=== PATIENT | male | born 1940 | race Caucasian/White ===

== ENCOUNTER → 2018-03-31 | Outpatient (CLI) | payer MEDICARE, BC ==
--- NOTE | 2018-04-01 08:12 | US ---
EXAMINATION TYPE: US kidneys/renal and bladder DATE OF EXAM: 03/31/2018 COMPARISON: CT & US CLINICAL HISTORY: R39.14 incomplete bladder emptying. Pt states recurrent UTI's, and unable to empty bladder completely EXAM MEASUREMENTS: Right Kidney: 12.2 x 6.8 x 6.3 cm Left Kidney: 11.6 x 6.0 x 3.6 cm Right Kidney: Moderate to severe hydro Left Kidney: Severe hydro, minimal renal tissue visualized Bladder: wnl Bilateral Jets seen: Yes No definite calcifications identified. IMPRESSION: Bilateral significant hydronephrosis.
== END | disposition home or self-care (01) ==
LOC: RADUSWWP 15:29
PROVIDERS: ATTEND Urology
DX: N13.30 Unspecified hydronephrosis (principal)
CPT/HCPCS: 76770

== ENCOUNTER → 2018-11-10 | Outpatient (CLI) | payer MEDICARE, BC ==
[2018-11-10 17:17] LABS: Anion Gap 6.8 mmol/L (4.00-12.00); Carbon Dioxide 25.2 mmol/L (21.6-31.8); Phosphorus 3.4 mg/dL (2.4-5.1); Potassium 5.4 mmol/L (3.5-5.5)
[2018-11-10 18:08] LABS: Parathyroid Hormone Intact 71.4 pg/mL (14.0-72.0)
== END ==
LOC: LABWHC1 10:27
PROVIDERS: ATTEND Internal Medicine
DX: N18.9 Chronic kidney disease, unspecified (principal)
CPT/HCPCS: 36415; 80051; 82306; 82565; 83970; 84100; 84520

== ENCOUNTER 2019-03-22 21:32 | Inpatient (IN) | payer MEDICARE, BC ==
[2019-03-22 23:03] LABS: Anisocytosis Slight; Basophils % (A) 0 %; Eosinophils # (A) 0.1 k/uL (0-0.7); Eosinophils % (A) 1 %; HCT 43.4 % (39.0-53.0); HGB 14.3 gm/dL (13.0-17.5); Lymphocytes # (A) 1.2 k/uL (1.0-4.8); Lymphocytes % (A) 11 %; MCH 29.1 pg (25.0-35.0); MCV 88.1 fL (80.0-100.0); Mean Platelet Volume 7.4; Monocytes # (A) 0.7 k/uL (0-1.0); Monocytes % (A) 6 %; Neutrophils # (A) 8.3 k/uL (1.3-7.7); Neutrophils % (A) 80 %; Platelet Count 304 k/uL (150-450); RBC 4.93 m/uL (4.30-5.90); RDW 16.3 % (11.5-15.5); WBC 10.4 k/uL (3.8-10.6)
[2019-03-22 23:12] LABS: Albumin 4.1 g/dL (3.5-5.0); Calcium 8.9 mg/dL (8.4-10.2); Potassium 4.7 mmol/L (3.5-5.1); Total Bilirubin 0.5 mg/dL (0.2-1.3)
[2019-03-23 01:33] LABS: Appearance,Urine Turbid (Clear); Bilirubin,Urine Negative (Negative); Blood,Urine Large (Negative); Color,Urine Yellow; Glucose,Urine (UA) Negative (Negative); Ketones,Urine Negative (Negative); Leukocyte Esterase,Urine Large (Negative); Nitrite,Urine Negative (Negative); Protein,Urine 2+ (Negative); RBC,Urine >182 /hpf (0-5); Specific Gravity,Urine 1.018 (1.001-1.035); Squamous Epithelial Cell,Urine 20 /hpf (0-4); Urobilinogen,Urine <2.0 mg/dL (<2.0); WBC,Urine >182 /hpf (0-5)
--- NOTE | 2019-03-23 01:40 | CT ---
EXAM: CT Abdomen and Pelvis Without Intravenous Contrast CLINICAL HISTORY: ITS.REASON CT Reason: Pain TECHNIQUE: Axial computed tomography images of the abdomen and pelvis without intravenous contrast. CTDI is 24 mGy and DLP is 1356 mGy-cm. This CT exam was performed using one or more of the following dose reduction techniques: automated exposure control, adjustment of the mA and/or kV according to patient size, and/or use of iterative reconstruction technique. COMPARISON: 03/16/15 CT abdomen FINDINGS: Lung bases: No mass. No consolidation. Mild pericardial effusion. ABDOMEN: Liver: Unremarkable. Cysts. Gallbladder and bile ducts: Removed. Pancreas: No ductal dilation. Spleen: Unremarkable. Adrenals: Unremarkable. Kidneys and ureters: No obstructing stones. Mildly dilated bilateral ureters. Calcified right renal cyst. Atrophic bilaterally. Stomach and bowel: No bowel obstruction. No bowel wall thickening. Colonic diverticulosis. PELVIS: Appendix: No appendicitis. Bladder: No stones. Moderate wall thickening. Reproductive: Unremarkable. ABDOMEN and PELVIS: Intraperitoneal space: Unremarkable. Bones/joints: No acute fractures. Soft tissues: Unremarkable. Vasculature: No abdominal aortic aneurysm. Lymph nodes: No enlarged lymph nodes. IMPRESSION: 1. Mild pericardial effusion. 2. Moderately thickened bladder wall, correlate with cystitis. Mildly dilated bilateral ureters. No stones identified. Correlate with ascending infectious/inflammatory process. 3. Colonic diverticulosis.
[2019-03-23] MEDS ORDERED: cefTRIAXone IN SWFI 1,000 MG/10 ML SYRINGE IVP STA (01:47)
[2019-03-23] MEDS ORDERED: NALOXONE 0.4 MG/ML 1 ML VIAL IV PRN (01:57)
--- NOTE | 2019-03-23 02:22 | ED ---
General Adult HPI - General Chief complaint: Abdominal Pain Stated complaint: Flank pain Time Seen by Provider: 03/23/19 00:38 Source: patient, RN notes reviewed, old records reviewed Mode of arrival: wheelchair Limitations: no limitations - History of Present Illness Initial comments: 78-year-old male patient passed no history of chronic kidney disease, h ypertension and hyperlipidemia presents to ED with 3 days of flank pain. Patient denies any dysuria. Patient denies any other complaints at this time. Systemic: Pt denies fatigue, fever/chills, rash. Pt denies weakness, night sweats, weight loss. Neuro: Pt denies headache, visual disturbances, syncope or pre-syncope. HEENT: Pt denies ocular discharge or irritation, otalgia, rhinorrhea, pharyn gitis or notable lymphadenopathy. Cardiopulmonary: Pt denies chest pain, SOB, heart palpitations, dyspnea on exertion. Abdominal/GI: Pt denies abdominal pain, n/v/d. : Pt denies dysuria, burning w/ urination, frequency/urgency. Denies new onset urinary or bowel incontinence. MSK: Pt denies myalgia, loss of strength or function in extremities. Neuro: Pt denies new onset weakness, paresthesias. - Related Data Home Medications Medication Instructions Recorded Confirmed Simvastatin [Zocor] 20 mg PO HS 08/02/14 09/17/14 Warfarin [Coumadin] 5 mg PO W/SUPPER 08/02/14 09/15/14 Atenolol [Tenormin] 50 mg PO BID 08/03/14 09/17/14 Vitamin E (Dl,Tocopheryl Acet) 400 unit PO DAILY 08/03/14 09/17/14 [Vitamin E] Zinc 50 mg PO DAILY 08/03/14 09/17/14 Fluticasone Propionate [Flonase] 1 - 2 spray EA NOSTRIL DAILY 09/15/14 09/17/14 Tamsulosin [Flomax] 0.4 mg PO 1800 09/15/14 09/17/14 Acetaminophen [Tylenol] 650 mg PO Q4H 09/17/14 09/17/14 amLODIPine [Norvasc] 5 mg PO DAILY 09/17/14 09/17/14 Allergies Allergy/AdvReac Type Severity Reaction Status Date / Time No Known Allergies Allergy Verified 03/22/19 22:31 Review of Systems ROS Statement: Those systems with pertinent positive or pertinent negative responses have been documented in the HPI. ROS Other: All systems not noted in ROS Statement are negative. Past Medical History Past Medical History: CVA/TIA, GERD/Reflux, Hyperlipidemia Additional Past Medical History / Comment(s): tia-2004, See Dr Aguirre H&P, arthritis, uses walker or cane, enlarged prostate History of Any Multi-Drug Resistant Organisms: None Reported Past Surgical History: Cholecystectomy, Hernia Repair, Orthopedic Surgery, Pacemaker Additional Past Surgical History / Comment(s): cervical fusion, lithrotripsy, Past Anesthesia/Blood Transfusion Reactions: No Reported Reaction Additional Past Anesthesia/Blood Transfusion Reaction / Comment(s): Pt has never recieved blood. Type of Cardiac Device: Permanent Pacemaker Device Placement Date:: 2008 Past Psychological History: No Psychological Hx Reported Smoking Status: Former smoker Past Alcohol Use History: None Reported Past Drug Use History: None Reported - Past Family History Father Family Medical History: Cancer Additional Family Medical History / Comment(s): Father had brain tumors. He in his 80's. Mother Family Medical History: Osteoarthritis (OA) Additional Family Medical History / Comment(s): Mother had parkinsons . She in her late 80's. General Exam - General Exam Comments Initial Comments: Constitutional: NAD, AOX3, Pt has pleasant affect. HEENT: NC/AT, trachea midline, neck supple, no lymphadenopathy. Posterior pharynx non erythematous, without exudates. External ears appear normal, without discharge. Mucous membranes moist. Eyes PERRLA, EOM intact. There is no scleral icterus. No pallor noted. Cardiopulmonary: RRR, no murmurs, rubs or gallops, no JVD noted. Lungs CTAB in anterior and posterior funes. No peripheral edema. Abdominal exam: Abdomen soft and non-distended. Abdomen non-tender to palpation in all 4 quadrants. Bowel sounds active in LLQ. No hepatosplenomegaly. No ecchymosis no CVA tenderness. Neuro: CN II-XII grossly intact. No nuchal rigidity. No raccon eyes, no avendaño sign, no hemotympanum. No cervical spinal tenderness. MSK: No posterior calf tenderness bilaterally, homans sign negative bilaterally. Posterior tibialis and radial pulse +2 bilaterally. Sensation intact in upper and lower extremities. Full active ROM in upper and lower extremities, 5/5 stregnth. Limitations: no limitations Course Vital Signs 03/22/19 03/23/19 22:30 01:22 Temperature 97.9 F 97.7 F Pulse Rate 60 61 Respiratory 18 19 Rate Blood Pressure 135/79 124/102 O2 Sat by Pulse 95 96 Oximetry Medical Decision Making - Medical Decision Making 78-year-old male patient presented to ED chief complaint of right flank pain. Patient also has stable, afebrile. Physical exam did not display acute pathology. CBC, CMP noncompressive. Creatinine 1.58, baseline. UA displayed hematuria, leukocytes. The abdomen pelvis displayed mild pericardial effusion, mildly thickened bladder, correlate for cystitis, mildly dilated ureters, correlate with ascending infection and plantar process. Patient initiated on Rocephin. Patient will be admitted for pyelonephritis. Case discussed with Dr. Pineda. - Lab Data Result diagrams: 03/22/19 22:48 03/22/19 22:48 Lab Results 03/22/19 03/22/19 03/23/19 Range/Units 22:48 22:48 01:20 WBC 10.4 (3.8-10.6) k/uL RBC 4.93 (4.30-5.90) m/uL Hgb 14.3 (13.0-17.5) gm/dL Hct 43.4 (39.0-53.0) % MCV 88.1 (80.0-100.0) fL MCH 29.1 (25.0-35.0) pg MCHC 33.0 (31.0-37.0) g/dL RDW 16.3 H (11.5-15.5) % Plt Count 304 (150-450) k/uL Neutrophils % 80 % Lymphocytes % 11 % Monocytes % 6 % Eosinophils % 1 % Basophils % 0 % Neutrophils # 8.3 H (1.3-7.7) k/uL Lymphocytes # 1.2 (1.0-4.8) k/uL Monocytes # 0.7 (0-1.0) k/uL Eosinophils # 0.1 (0-0.7) k/uL Basophils # 0.0 (0-0.2) k/uL Anisocytosis Slight Sodium 137 (137-145) mmol/L Potassium 4.7 (3.5-5.1) mmol/L Chloride 106 (98-107) mmol/L Carbon Dioxide 21 L (22-30) mmol/L Anion Gap 10 mmol/L BUN 16 (9-20) mg/dL Creatinine 1.58 H (0.66-1.25) mg/dL Est GFR (CKD-EPI)AfAm 48 (>60 ml/min/1.73 sqM) Est GFR (CKD-EPI)NonAf 41 (>60 ml/min/1.73 sqM) Glucose 114 H (74-99) mg/dL Calcium 8.9 (8.4-10.2) mg/dL Total Bilirubin 0.5 (0.2-1.3) mg/dL AST 24 (17-59) U/L ALT 18 L (21-72) U/L Alkaline Phosphatase 84 (38-126) U/L Total Protein 7.0 (6.3-8.2) g/dL Albumin 4.1 (3.5-5.0) g/dL Amylase 67 (30-110) U/L Lipase 105 (23-300) U/L Urine Color Yellow Urine Appearance Turbid (Clear) Urine pH 7.0 (5.0-8.0) Ur Specific Aroda 1.018 (1.001-1.035) Urine Protein 2+ H (Negative) Urine Glucose (UA) Negative (Negative) Urine Ketones Negative (Negative) Urine Blood Large H (Negative) Urine Nitrite Negative (Negative) Urine Bilirubin Negative (Negative) Urine Urobilinogen <2.0 (<2.0) mg/dL Ur Leukocyte Esterase Large H (Negative) Urine RBC >182 H (0-5) /hpf Urine WBC >182 H (0-5) /hpf Urine WBC Clumps Many H (None) /hpf Ur Squamous Epith Cells 20 H (0-4) /hpf Disposition Clinical Impression: Pyelonephritis Disposition: ADMITTED IP TO THIS HOSP Condition: Serious Is patient prescribed a controlled substance at d/c from ED?: No Referrals: Celina Munoz MD [Primary Care Provider] - 1-2 days
[2019-03-23] MEDS: SODIUM CHLORIDE 0.9% 1,000 ML IV SCH ×2 (02:31→21:20)
[2019-03-23] MEDS ORDERED: MORPHINE SULFATE 4 MG/ML SYRINGE IVP PRN (03:00)
[2019-03-23 03:21] VITALS: BMI 38.6
[2019-03-23] MEDS: ACETAMINOPHEN TAB 325 MG TAB PO PRN ×2 (03:29→15:28)
[2019-03-23] MEDS ORDERED: TEMAZEPAM 15 MG CAP PO PRN (11:00)
[2019-03-23] MEDS ORDERED: HYDROcodone/APAP 5-325MG 1 EACH TAB PO PRN (11:00)
[2019-03-23] MEDS ORDERED: ALPRAZolam 0.25 MG TAB PO PRN (11:00)
[2019-03-23 11:53] LABS: INR 2.4 (<1.2); Prothrombin Time 23.5 sec (9.0-12.0)
[2019-03-23] MEDS: ATENOLOL 50 MG TAB PO SCH ×2 (12:40→21:12)
[2019-03-23] MEDS: MAGNESIUM OXIDE 400 MG TAB PO SCH ×2 (12:40→21:13)
[2019-03-23] MEDS: CALCIUM CARBONATE 500 MG CHEWABLE PO SCH (12:40)
[2019-03-23] MEDS: LISINOPRIL 10 MG TAB PO SCH (12:40)
[2019-03-23] MEDS: ZINC SULFATE 220 MG CAP PO SCH (12:41)
[2019-03-23] MEDS: VITAMIN E (DL,TOCOPHERYL ACET) 400 UNIT CAP PO SCH (12:41)
[2019-03-23] MEDS: FLUTICASONE 50MCG/SPRAY NASAL 16GM EA NOSTRIL SCH (12:41)
--- NOTE | 2019-03-23 14:59 | HP ---
HISTORY AND PHYSICAL DATE OF SERVICE: 03/23/2019 CHIEF COMPLAINT: Flank pain as well as UTI. HISTORY OF PRESENT ILLNESS: This 78-year-old gentleman with a past medical history of multiple medical problems including atrial fibrillation, history of CVA, TIA, GERD, hyperlipidemia, history of prostate disorder, history of DJD, history of cholecystectomy, being followed by Dr. Munoz in the outpatient is complaining of 3 days of right flank pain. The patient also has some diffuse abdominal discomfort. Patient came to [facility] and admitted for further evaluation. CT scan of the abdomen showed evidence of cystitis, pyelonephritis suspected. There is no history of fever or rigors. No headache, loss of consciousness or seizures. PAST MEDICAL HISTORY: History of atrial fibrillation, history of CVA, TIA, GERD, hyperlipidemia, history of prostate disorder, cholecystectomy. HOME MEDICATIONS: 1. Coumadin 5 mg Saturday, Saturday, Saturday, , Saturday and 2.5 mg Saturday and Saturday. 2. Zinc 50 mg p.o. daily. 3. Vitamin E 400 units daily. 4. Flomax 0.4 q.h.s. 5. Zocor 20 mg q.h.s. 6. Magnesium 200 mg p.o. b.i.d. 7. Zestril 10 mg p.o. daily. 8. Flonase 1-2 sprays daily. 9. Calcium 600 mg p.o. daily. 10.Tenormin 50 mg p.o. b.i.d. 11.Tylenol 650 q.4 p.r.n. ALLERGIES: None. FAMILY HISTORY: History of brain tumors. SOCIAL HISTORY: Previous history of smoking. No history of current smoking or alcohol intake. REVIEW OF SYSTEMS: ENT: No diminished vision. No diminished hearing. CARDIOVASCULAR: No angina. RESPIRATORY: No cough. GI: As mentioned earlier. : As mentioned earlier. NERVOUS SYSTEM: No numbness or weakness. ALLERGY/IMMUNOLOGY: No asthma or hayfever. MUSCULOSKELETAL: As mentioned earlier. HEMATOLOGY/ONCOLOGY: As mentioned earlier. ENDOCRINE: No history of diabetes or hypothyroidism. CONSTITUTIONAL: As mentioned earlier. DERMATOLOGY: Negative. PSYCHIATRY: As mentioned earlier. PHYSICAL EXAMINATION: Alert and oriented x3. Pulse 60, blood pressure 120/70, respiration 20, temperature 98 degrees, pulse ox 94% on room air. HEENT: Conjunctivae normal. Oral mucosa moist. NECK: No jugular venous distention. No lymph node enlargement. CARDIOVASCULAR: S1, S2. RESPIRATORY: Diminished breath sounds at the bases. A few scattered rhonchi, no crackles. ABDOMEN: Soft, nontender. No mass palpable. Obese. No ascites. Bowel sounds present. LEGS: No swelling. NERVOUS SYSTEM: Higher functions mentioned earlier. Moves all four limbs. No focal deficits. LYMPHATICS: No lymph node in neck or axilla. SKIN: No rash. JOINTS: No active deforming arthropathy. LABS: WBC 10.2, hemoglobin 14.3, and INR is 2.4. Creatinine is 1.58. UA noted. ASSESSMENT: 1. Right flank pain with acute pyelonephritis with urinary tract infection. 2. Increased creatinine with chronic kidney disease stage III. 3. Coumadin monitoring. 4. Atrial fibrillation. 5. History of cerebrovascular accident/transient ischemic attack. 6. History of gastroesophageal reflux disease. 7. Hyperlipidemia. 8. History of prostate disorder, prostate cancer. 9. History of cholecystectomy. 10.History of degenerative joint disease. 11.Permanent pacemaker. RECOMMENDATIONS AND DISCUSSION: In this 78-year-old gentleman who presented with multiple complex medical issues, we will monitor the patient closely, continue the current management and symptomatic treatment. Otherwise, resume the home medications, broad-spectrum IV antibiotics. Follow the cultures. Symptomatic treatment of the pain. Monitor PT, INR closely. Guarded prognosis because of multiple complex medical issues. Further recommendations to follow. MMODL / IJN: [id number] /
[2019-03-23] MEDS: WARFARIN 5 MG TAB PO SCH (18:10)
[2019-03-23] MEDS: TAMSULOSIN 0.4 MG CAP.ER.24H PO SCH (21:12)
[2019-03-23] MEDS: ATORVASTATIN 10 MG TAB PO SCH (21:12)
[2019-03-24] MEDS: ACETAMINOPHEN TAB 325 MG TAB PO PRN ×3 (00:44→22:03)
[2019-03-24] MEDS: CALCIUM CARBONATE 500 MG CHEWABLE PO SCH (07:48)
[2019-03-24] MEDS: ATENOLOL 50 MG TAB PO SCH ×2 (07:49→22:03)
[2019-03-24] MEDS: MAGNESIUM OXIDE 400 MG TAB PO SCH ×2 (07:49→21:59)
[2019-03-24] MEDS: LISINOPRIL 10 MG TAB PO SCH (07:49)
[2019-03-24] MEDS: ZINC SULFATE 220 MG CAP PO SCH (07:51)
[2019-03-24] MEDS: VITAMIN E (DL,TOCOPHERYL ACET) 400 UNIT CAP PO SCH (07:51)
[2019-03-24] MEDS: FLUTICASONE 50MCG/SPRAY NASAL 16GM EA NOSTRIL SCH (07:57)
[2019-03-24 08:36] LABS: INR 2.6 (<1.2)
[2019-03-24 08:43] LABS: Calcium 8.9 mg/dL (8.4-10.2); Potassium 4.6 mmol/L (3.5-5.1)
[2019-03-24 09:25] LABS: Anisocytosis Slight; Basophils % (A) 1 %; Eosinophils # (A) 0.2 k/uL (0-0.7); Eosinophils % (A) 3 %; HCT 43.4 % (39.0-53.0); Lymphocytes # (A) 1.1 k/uL (1.0-4.8); Lymphocytes % (A) 16 %; MCH 29.2 pg (25.0-35.0); MCHC 32.1 g/dL (31.0-37.0); MCV 90.8 fL (80.0-100.0); Mean Platelet Volume 8.1; Monocytes # (A) 0.5 k/uL (0-1.0); Monocytes % (A) 7 %; Neutrophils # (A) 4.8 k/uL (1.3-7.7); Neutrophils % (A) 72 %; Platelet Count 263 k/uL (150-450); RBC 4.78 m/uL (4.30-5.90); RDW 16.6 % (11.5-15.5); WBC 6.7 k/uL (3.8-10.6)
--- NOTE | 2019-03-24 14:24 | PN ---
PROGRESS NOTE DATE OF SERVICE: 03/24/2019 This is a 78-year-old gentleman who was admitted with flank pain and UTI with pyelonephritis, being closely monitored. No chest pain. No palpitations. No fever. Abdomen and pelvis CAT scan were done which showed moderately thickened bladder wall and as well as cystitis and mild pericardial effusion in the CT scan. No chest pain. No palpitations. No fever. PHYSICAL EXAM: Alert and oriented pulse 66 blood pressure 128/70, respirations 16, temperature 98.4, pulse ox 94% on room air skin are no CARDIOVASCULAR: S1, S2 muffled. RESPIRATIONS: Breath sounds diminished in the bases no rhonchi no crackles abdomen soft minimal tenderness in the right renal angle present and no guarding. No rigidity. No mass palpable. LEGS are no edema. No swelling. LABS: Creatinine 1.62. The cultures are negative so far. ASSESSMENT: 1. Right-sided flank pain with acute pyelonephritis with urinary tract infection present on admission. 2. Increased creatinine with chronic kidney stage III. 3. Cystitis and mild pericardial effusion on the CT scan. 4. Coumadin monitoring. 5. Atrial fibrillation. 6. History of cerebrovascular accident, transient ischemic attack. 7. History of gastroesophageal reflux disease. 8. Hyperlipidemia. 9. History of prostate disorder, prostate cancer. 10.History of cholecystectomy. 11.History of degenerative joint disease. 12.Permanent pacemaker. RECOMMENDATIONS AND DISCUSSION: Recommend to continue current medications. Continue to monitor symptomatic treatment at this time I recommend continue with IV antibiotics. Follow the cultures. Otherwise, guarded prognosis because of multiple complex medical issues. Further recommendations to follow. MMODL / IJN: [id number] /
[2019-03-24] MEDS: WARFARIN 5 MG TAB PO SCH (18:24)
[2019-03-24] MEDS: TAMSULOSIN 0.4 MG CAP.ER.24H PO SCH (21:59)
[2019-03-24] MEDS: ATORVASTATIN 10 MG TAB PO SCH (21:59)
[2019-03-24] MEDS: SODIUM CHLORIDE 0.9% 1,000 ML IV SCH (22:12)
[2019-03-25] MEDS: ATENOLOL 50 MG TAB PO SCH ×2 (07:57→20:47)
[2019-03-25] MEDS: MAGNESIUM OXIDE 400 MG TAB PO SCH ×2 (07:57→20:47)
[2019-03-25] MEDS: ZINC SULFATE 220 MG CAP PO SCH (07:57)
[2019-03-25] MEDS: CALCIUM CARBONATE 500 MG CHEWABLE PO SCH (07:57)
[2019-03-25] MEDS: VITAMIN E (DL,TOCOPHERYL ACET) 400 UNIT CAP PO SCH (07:57)
[2019-03-25] MEDS: LISINOPRIL 10 MG TAB PO SCH (07:58)
[2019-03-25] MEDS: FLUTICASONE 50MCG/SPRAY NASAL 16GM EA NOSTRIL SCH (07:58)
[2019-03-25 08:37] LABS: INR 2.7 (<1.2)
[2019-03-25 09:16] LABS: Anisocytosis Slight; Basophils % (A) 0 %; Eosinophils # (A) 0.2 k/uL (0-0.7); Eosinophils % (A) 3 %; HCT 40.9 % (39.0-53.0); HGB 13.5 gm/dL (13.0-17.5); Lymphocytes # (A) 1.2 k/uL (1.0-4.8); Lymphocytes % (A) 19 %; MCH 29.3 pg (25.0-35.0); MCHC 32.9 g/dL (31.0-37.0); MCV 88.9 fL (80.0-100.0); Mean Platelet Volume 8.2; Monocytes # (A) 0.5 k/uL (0-1.0); Monocytes % (A) 8 %; Neutrophils # (A) 4.2 k/uL (1.3-7.7); Neutrophils % (A) 68 %; Platelet Count 231 k/uL (150-450); RBC 4.61 m/uL (4.30-5.90); RDW 16.2 % (11.5-15.5); WBC 6.2 k/uL (3.8-10.6)
[2019-03-25 10:04] LABS: Calcium 8.5 mg/dL (8.4-10.2); Potassium 4.9 mmol/L (3.5-5.1)
--- NOTE | 2019-03-25 13:10 | US ---
EXAMINATION TYPE: US kidneys/renal and bladder DATE OF EXAM: 03/25/2019 COMPARISON: CT & US CLINICAL HISTORY: rt pyelo?. UTI EXAM MEASUREMENTS: Right Kidney: 13.3 x 6.9 x 6.6 cm Left Kidney: 11.4 x 4.1 x 5.4 cm Right Kidney: Lobulated prominent echogenicity of the cortex along the mid to lower pole the right ki dney. Corresponds the area of lobulation seen by recent noncontrast CT scan. Calcification along the peripheral cortex by CT scan is not well seen by ultrasound. Left Kidney: atrophic with marked cortical thinning., difficult to visualize. Bladder: wnl Bilateral Jets seen: No No obvious hydronephrosis or nephrolithiasis. IMPRESSION: 1. No hydronephrosis or nephrolithiasis. Changes of chronic medical renal disease. Prominent mid pole renal cortical lesion extending to the lower pole is consistent with the CT finding. This is isoecho ic to the renal: Techs. May be secondary to adjacent cortical loss and lobulation. If there is clinic al concern for renal mass MRI could BE performed.
--- NOTE | 2019-03-25 14:07 | PN ---
PROGRESS NOTE DATE OF SERVICE: 03/25/2019 This is a 78-year-old gentleman who was admitted with pyelonephritis UTI and the UTI is being closely monitored. No chest pain. No palpitations. No fever. The ultrasound of the kidneys showed no hydronephrosis, nephrolithiasis, to be followed up in the outpatient setting. No chest pain. No palpitations. No fever. The patient is still complaining of some minimal renal angle tenderness. PHYSICAL EXAM: Alert and oriented x3, pulse is 63, blood pressure 140/82, respiration 18, temperature 97.2, pulse ox 98% on room air. HEENT: Conjunctivae normal. NECK: No jugular venous distension. CARDIOVASCULAR: S1, S2, muffled. RESPIRATION: Breath sounds diminished at the bases, no rhonchi, no crackles. ABDOMEN: Soft. Mild tenderness in the right renal area. NERVOUS SYSTEM: No focal deficits. LABS: CBC within normal limits. INR 2.7. Sodium 130, potassium 4.2, creatinine is 1.50. UA noted. ASSESSMENT: 1. Right-sided flank pain with acute pyelonephritis with urinary tract infection, present on admission. 2. Increased creatinine with chronic kidney stage III, possibly. 3. Cystitis and mild pericardial effusion on the CT scan of the abdomen. 4. Coumadin monitoring. 5. Atrial fibrillation. 6. History of cerebrovascular accident, transient ischemic attack. 7. History of gastroesophageal reflux disease. 8. Hyperlipidemia. 9. History of prostate disorder, prostate cancer. 10.History of cholecystectomy. 11.History of degenerative joint disease. 12.Permanent pacemaker. RECOMMENDATION: Recommend to continue current management and symptomatic treatment. Otherwise at this time, ultrasound of the bladder was ordered and self-reviewed. Need him to follow up in the outpatient setting with primary physician and possibly urology. Otherwise, I would recommend to continue the antibiotics and symptomatic treatment. Closely follow. A 2-D echo has been ordered. Further recommendations to follow. Copy of this particular dictation being followed by Dr. Munoz's office. MMODL / IJN: [id number] /
[2019-03-25] MEDS: SODIUM CHLORIDE 0.9% 1,000 ML IV SCH (16:13)
[2019-03-25] MEDS ORDERED: WARFARIN 2.5 MG TAB PO SCH (18:00)
[2019-03-25] MEDS: TAMSULOSIN 0.4 MG CAP.ER.24H PO SCH (20:47)
[2019-03-25] MEDS: ATORVASTATIN 10 MG TAB PO SCH (20:47)
[2019-03-25] MEDS: ACETAMINOPHEN TAB 325 MG TAB PO PRN (20:48)
[2019-03-26 04:50] VITALS: BP 127/72; PULSE 60; RESP 20; TEMP 98.8
--- NOTE | 2019-03-26 06:38 | ECHOF ---
Referral Reason:lesa. effusion MEASUREMENTS -------- HEIGHT: 182.9 cm WEIGHT: 129.3 kg BP: 128/70 RVIDd: 4.0 cm (< 3.3) IVSd: 1.5 cm (0.6 - 1.1) LVIDd: 5.2 cm (3.9 - 5.3) LVPWd: 1.4 cm (0.6 - 1.1) IVSs: 2.0 cm LVIDs: 3.6 cm LVPWs: 1.8 cm LA Diam: 3.7 cm (2.7 - 3.8) Ao Diam: 3.8 cm (2.0 - 3.7) AV Cusp: 2.4 cm (1.5 - 2.6) MV EXCURSION: 14.837 mm (> 18.000) MV EF SLOPE: 73 mm/s (70 - 150) EPSS: 0.9 cm MV E Brandon: 0.49 m/s MV DecT: 229 ms MV A Brandon: 0.47 m/s MV E/A Ratio: 1.05 RAP: 5.00 mmHg RVSP: 30.65 mmHg FINDINGS -------- Paced rhythm. This was a technically difficult study with suboptimal views. The left ventricular size is normal. There is mild concentric left ventricular hypertrophy. Overa ll left ventricular systolic function is normal with, an EF between 55 - 60 %. The right ventricle is mild to moderately enlarged. The global wall thickness of the right ventricl e is mildly enlarged. The left atrial size is normal. The right atrium is normal in size. Lumason used Aneurysmal Interatrial septum. The aortic valve is trileaflet and appears structurally normal. There is trace to mild mitral regurgitation. Mild tricuspid regurgitation present. Right ventricular systolic pressure is normal at < 35 mmHg. Trace/mild (physiologic) pulmonic regurgitation. The aortic root is dilated measuring 3.8cm. IVC Not well visulized. There is a small pericardial effusion located near the left ventricle. CONCLUSIONS -------- 1. Paced rhythm. 2. This was a technically difficult study with suboptimal views. 3. The left ventricular size is normal. 4. There is mild concentric left ventricular hypertrophy. 5. Overall left ventricular systolic function is normal with, an EF between 55 - 60 %. 6. The right ventricle is mild to moderately enlarged. 7. The global wall thickness of the right ventricle is mildly enlarged. 8. The left atrial size is normal. 9. The right atrium is normal in size. 10. Lumason used 11. Aneurysmal Interatrial septum. 12. The aortic valve is trileaflet and appears structurally normal. 13. There is trace to mild mitral regurgitation. 14. Mild tricuspid regurgitation present. 15. Right ventricular systolic pressure is normal at < 35 mmHg. 16. Trace/mild (physiologic) pulmonic regurgitation. 17. The aortic root is dilated measuring 3.8cm. 18. IVC Not well visulized. 19. There is a small pericardial effusion located near the left ventricle. MOTION STUDY TECHNICIAN: Ofe Tong RDCS
[2019-03-26 07:46] LABS: Basophils % (A) 0 %; Eosinophils # (A) 0.2 k/uL (0-0.7); Eosinophils % (A) 3 %; HCT 44.1 % (39.0-53.0); HGB 14.3 gm/dL (13.0-17.5); Lymphocytes # (A) 1.5 k/uL (1.0-4.8); Lymphocytes % (A) 20 %; MCH 29.3 pg (25.0-35.0); MCHC 32.5 g/dL (31.0-37.0); MCV 90.2 fL (80.0-100.0); Mean Platelet Volume 6.5; Monocytes # (A) 0.5 k/uL (0-1.0); Monocytes % (A) 7 %; Neutrophils # (A) 5.4 k/uL (1.3-7.7); Neutrophils % (A) 69 %; Platelet Count 282 k/uL (150-450); RBC 4.89 m/uL (4.30-5.90); WBC 7.8 k/uL (3.8-10.6)
[2019-03-26 07:54] LABS: INR 2.6 (<1.2)
[2019-03-26] MEDS: LISINOPRIL 10 MG TAB PO SCH (08:14)
[2019-03-26] MEDS: ZINC SULFATE 220 MG CAP PO SCH (08:14)
[2019-03-26] MEDS: CALCIUM CARBONATE 500 MG CHEWABLE PO SCH (08:14)
[2019-03-26] MEDS: MAGNESIUM OXIDE 400 MG TAB PO SCH (08:14)
[2019-03-26] MEDS: ATENOLOL 50 MG TAB PO SCH (08:14)
[2019-03-26] MEDS: VITAMIN E (DL,TOCOPHERYL ACET) 400 UNIT CAP PO SCH (08:14)
[2019-03-26] MEDS: FLUTICASONE 50MCG/SPRAY NASAL 16GM EA NOSTRIL SCH (08:15)
[2019-03-26 08:21] LABS: Calcium 8.8 mg/dL (8.4-10.2); Potassium 4.7 mmol/L (3.5-5.1)
[2019-03-26] MEDS: SODIUM CHLORIDE 0.9% 1,000 ML IV SCH (11:51)
--- NOTE | 2019-03-27 11:10 | DS ---
DISCHARGE SUMMARY DATE OF SERVICE: 03/26/2019 FINAL DIAGNOSES: 1. Right-sided flank pain with acute pyelonephritis with urinary tract infection present on admission. 2. Increased creatinine with chronic kidney stage III, possibly. 3. Cystitis and in the CT scan small pericardial effusion located in the left ventricle in the 2D echo. 4. Chronic medical renal disease in the ultrasound of the kidneys. 5. Coumadin monitoring. 6. Atrial fibrillation. 7. History of cerebrovascular accident, transient ischemic attack. 8. History of gastroesophageal reflux disease, hyperlipidemia next history of prostate disorder, prostate cancer next history of cholecystectomy history of degenerative joint disease. 9. Permanent pacemaker discharge history the patient will be discharged in stable condition with guarded prognosis. HISTORY OF PRESENT ILLNESS: This 78-year-old gentleman with being followed with Dr. Munoz in the outpatient admitted with features of right-sided pyelonephritis and UTI. Patient treated with antibiotics, improved significantly. The cultures were negative ultrasound report so as mentioned earlier, otherwise the patient was significantly creatinine stable at 1.5. On exam, vitals are stable cardiovascular abdomen soft. Nervous system. DISCHARGE ADVICE AND MEDICATIONS: Diet is cardiac diet followup follow up with Dr. Munoz 2-3 days, follow up with Urology as recommended. DISCHARGE MEDICATIONS ARE: 1. Calcium 600 mg p.o. daily. 2. Coumadin 5 mg Saturday, Saturday, Saturday, , Saturday and 2.5 mg Saturday and Saturday. 3. Flomax 0.4 q.h.s. Flonase 1-2 sprays daily. 4. Magnesium 200 mg p.o. b.i.d. 5. Tenormin 50 mg p.o. b.i.d. 6. Tylenol 650 q.6 p.r.n. 7. Vitamin E 400 mg daily. 8. Zestril 10 mg daily. 9. Zinc 50 mg p.o. daily. 10.Zocor 20 mg q.h.s. 11.Ceftin 500 mg b.i.d. for 3 days. 12.Tylenol 650 q.6 p.r.n. Once again, the patient will be discharged in a stable condition with guarded prognosis. MMODL / IJN: [id number] /
--- NOTE | 2019-03-30 06:55 | CDI ---
Documentation Clarification Form Date: 03/30/2019 From: Elsie Guzman Phone: If questions call Flaca Mcdonough @ [phone], Hours-8:30 am & 5 pm M- F Admit Date: 03/24/2019 11:42:00 AM Patient Name: Santosh Melton Visit Number: [id number] Discharge Date: 03/26/2019 1:23:00 PM ATTENTION: The Clinical Documentation Specialists (CDI) and [facility] Coding Staff appreciate your assistance in clarifying documentation. Please respond to the clarification below the line at the bottom and electronically sign. The CDI & [facility] Coding staff will review the response and follow-up if needed. Please note: Queries are made part of the Legal Health Record. If you have any questions, please contact the author of this message via ITS. Dr. Carina Knott Atrial Fibrillation is documented in the H&P, PNs & DS. History/Risk Factors: hx of CVA, GERD, hyperlipidemia, s/p pacemaker 2008 EKG/telemetry: AV dual-paced rhythm with prolonged AV conduction Treatment: Coumadin 5 mg PO SUMOTUTHFR Consults: none In your professional opinion, can you please clarify the type of Atrial Fibrillation, if known? Chronic/Permanent Paroxysmal Persistent Other, please specify Unable to determine Chronic/Permanent MTDD
== END 2019-03-26 13:23 | disposition home or self-care (01) | DRG 690 ==
LOC: EC 21:32 → 4MS4W 03-23 01:59 → OBSVTOIN 03-24 11:42
PROVIDERS: ADMIT Internal Medicine; ATTEND Internal Medicine
DX: N10 Acute pyelonephritis (principal); I31.3 Pericardial effusion (noninflammatory); I48.2 Chronic atrial fibrillation; N18.3 Chronic kidney disease, stage 3 (moderate); I12.9 Hypertensive chronic kidney disease with stage 1 through stage 4 chronic kidney disease, or unspecified chronic kidney disease; E78.5 Hyperlipidemia, unspecified; K21.9 Gastro-esophageal reflux disease without esophagitis; M19.90 Unspecified osteoarthritis, unspecified site; N40.0 Benign prostatic hyperplasia without lower urinary tract symptoms; Z79.01 Long term (current) use of anticoagulants; Z79.899 Other long term (current) drug therapy; Z95.0 Presence of cardiac pacemaker; Z87.891 Personal history of nicotine dependence; Z85.46 Personal history of malignant neoplasm of prostate; Z86.73 Personal history of transient ischemic attack (TIA), and cerebral infarction without residual deficits; Z90.49 Acquired absence of other specified parts of digestive tract; Z98.1 Arthrodesis status; Z98.890 Other specified postprocedural states; Z80.8 Family history of malignant neoplasm of other organs or systems; Z82.0 Family history of epilepsy and other diseases of the nervous system; Z82.61 Family history of arthritis
CPT/HCPCS: 36415; 74176; 76770; 80048; 80053; 81001; 82150; 83690; 85025; 85610; 87040; 87086; 93306; 99285

== ENCOUNTER 2020-01-02 16:53 | Inpatient (IN) | payer MEDICARE, BC ==
[2020-01-02 17:37] LABS: Basophils % (A) 0 %; Eosinophils # (A) 0.1 k/uL (0-0.7); Eosinophils % (A) 1 %; HCT 43.9 % (39.0-53.0); HGB 14.1 gm/dL (13.0-17.5); Lymphocytes % (A) 12 %; MCHC 32.2 g/dL (31.0-37.0); MCV 90.3 fL (80.0-100.0); Mean Platelet Volume 7.1; Monocytes # (A) 0.4 k/uL (0-1.0); Monocytes % (A) 5 %; Neutrophils # (A) 6.4 k/uL (1.3-7.7); Neutrophils % (A) 79 %; Platelet Count 257 k/uL (150-450); RBC 4.86 m/uL (4.30-5.90); RDW 13.7 % (11.5-15.5)
[2020-01-02 17:49] LABS: Calcium 8.8 mg/dL (8.4-10.2); Magnesium 2.3 mg/dL (1.6-2.3); Potassium 4.6 mmol/L (3.5-5.1); Total Bilirubin 0.3 mg/dL (0.2-1.3); Total Protein 6.9 g/dL (6.3-8.2)
[2020-01-02 17:56] LABS: INR 2.6 (<1.2); Partial Thromboplastin Time 37.1 sec (22.0-30.0); Prothrombin Time 25.7 sec (9.0-12.0)
--- NOTE | 2020-01-02 18:40 | ED ---
GI Bleed HPI - General Chief complaint: GI Bleed Stated complaint: blood in stool Time Seen by Provider: 01/02/20 17:05 Source: patient Mode of arrival: ambulatory Limitations: no limitations - History of Present Illness Initial comments: The patient is a 79-year-old male past history of A. fib, currently on Coumadin who presents emergency Department with reported bright red blood per rectum. He states that he had a normal bowel movement last night. This morning he awoke and had 2 episodes of bright red blood which was in the toilet bowl. Reports it being a significant amount. Also states that he had some diarrhea. No history of similar in the past. Denies history of peptic ulcer disease. Patient does not take any NSAIDs or drink alcohol. Reports his last colonoscopy was greater than 5 years ago. He states he had diverticulosis. He currently denies any abdominal pain no back or flank pain. No fevers or chills. Denies hematuria, d ysuria or difficulty voiding. INR was last checked a week ago and was normal. No nausea or vomiting. There are no other alleviating, precipitating or modifying factors - Related Data Home Medications Medication Instructions Recorded Confirmed Simvastatin [Zocor] 20 mg PO HS 08/02/14 01/02/20 Warfarin [Coumadin] 5 mg PO SUMOTUWETHFR 08/02/14 01/02/20 Atenolol [Tenormin] 50 mg PO BID 08/03/14 01/02/20 Vitamin E (Dl,Tocopheryl Acet) 400 unit PO DAILY 08/03/14 01/02/20 [Vitamin E] Zinc 50 mg PO DAILY 08/03/14 01/02/20 Acetaminophen [Tylenol] 650 mg PO Q4H PRN 09/17/14 01/02/20 Calcium Carbonate [Calcium] 600 mg PO DAILY 03/23/19 01/02/20 Lisinopril [Zestril] 10 mg PO DAILY 03/23/19 01/02/20 Magnesium 200 mg PO BID 03/23/19 01/02/20 Warfarin [Coumadin] 2.5 mg PO SA 01/02/20 01/02/20 Previous Rx's Medication Instructions Recorded Docusate [Colace] 100 mg PO DAILY PRN #30 cap 01/05/20 Hydrocortisone Pr Cream 1 applic RECTAL BID PRN #7 applic 01/05/20 [Proctosol-Hc 2.5%] Allergies Allergy/AdvReac Type Severity Reaction Status Date / Time No Known Allergies Allergy Verified 01/02/20 18:53 Review of Systems ROS Statement: Those systems with pertinent positive or pertinent negative responses have been documented in the HPI. ROS Other: All systems not noted in ROS Statement are negative. Past Medical History Past Medical History: Atrial Fibrillation, Cancer, CVA/TIA, GERD/Reflux, Hyperlipidemia, Prostate Disorder Additional Past Medical History / Comment(s): tia-2004, See Dr Aguirre H&P, arthritis, uses walker or cane, enlarged prostate, prostate CA 2014(radiation), shingles february 2019. History of Any Multi-Drug Resistant Organisms: None Reported Past Surgical History: Cholecystectomy, Hernia Repair, Orthopedic Surgery, Pacemaker Additional Past Surgical History / Comment(s): cervical fusion, lithrotripsy, Past Anesthesia/Blood Transfusion Reactions: No Reported Reaction Additional Past Anesthesia/Blood Transfusion Reaction / Comment(s): Pt has never recieved blood. Type of Cardiac Device: Permanent Pacemaker Device Placement Date:: 2013 Past Psychological History: No Psychological Hx Reported Smoking Status: Former smoker Past Alcohol Use History: None Reported Past Drug Use History: None Reported - Past Family History Father Family Medical History: Cancer Additional Family Medical History / Comment(s): Father had brain tumors. He d in his 80's. Mother Family Medical History: Osteoarthritis (OA) Additional Family Medical History / Comment(s): Mother had parkinsons . She in her late 80's. General Exam Limitations: no limitations General appearance: alert, in no apparent distress Head exam: Present: atraumatic, normocephalic, normal inspection Eye exam: Present: normal appearance, PERRL, EOMI. Absent: scleral icterus, conjunctival injection, periorbital swelling ENT exam: Present: normal exam, mucous membranes moist Neck exam: Present: normal inspection. Absent: tenderness, meningismus, lymphad enopathy Respiratory exam: Present: normal lung sounds bilaterally. Absent: respiratory distress, wheezes, rales, rhonchi, stridor Cardiovascular Exam: Present: regular rate, normal rhythm, normal heart sounds. Absent: systolic murmur, diastolic murmur, rubs, gallop, clicks GI/Abdominal exam: Present: soft, normal bowel sounds. Absent: distended, tenderness, guarding, rebound, rigid Rectal exam: Present: normal rectal tone, heme (+) stool, bloody stool Extremities exam: Present: normal inspection, full ROM, normal capillary refill. Absent: tenderness, pedal edema, joint swelling, calf tenderness Back exam: Present: normal inspection Neurological exam: Present: alert, oriented X3, CN II-XII intact Psychiatric exam: Present: normal affect, normal mood Skin exam: Present: warm, dry, intact, normal color. Absent: rash Course Vital Signs 01/02/20 01/02/20 01/02/20 17:05 17:30 18:00 Temperature 98.8 F Pulse Rate 66 61 60 Pulse Rate [ Left] Respiratory 18 18 18 Rate Blood Pressure 153/83 153/82 137/67 Blood Pressure [Right Arm] O2 Sat by Pulse 95 95 95 Oximetry 01/02/20 01/02/20 01/02/20 18:30 19:00 19:03 Temperature Pulse Rate 61 62 Pulse Rate [ 60 Left] Respiratory 18 18 Rate Blood Pressure 132/71 105/80 Blood Pressure 155/74 [Right Arm] O2 Sat by Pulse 94 L 96 96 Oximetry Medical Decision Making - Medical Decision Making Upon arrival the patient is placed into room 3. A thorough history and physical exam was performed. I did perform a rectal exam on the patient which does demonstrate bright red blood on the patient's brief. There is also a moderate amount of blood with digital rectal exam. No palpable masses. I did complete laboratory studies. Hemoglobin is 14.1. INR therapeutic at 2.6. Creatinine 1.3 which is round patient's baseline and fecal occult is positive. Patient is not having any abdominal pain and therefore didn't perform imaging. I did recommend hospital admission order to trend his hemoglobin and have him be evaluated by GI. The patient did agree to this. He is made nothing by mouth. I will consult Dr. Cardenas. I discussed the case with Dr. Sukhwinder garza who agreed the patient could go to the floor. DISCUSS case with Dr. Villarreal who accepted admission. Patient was transferred to the floor in hemodynamically stable condi tion - Lab Data Result diagrams: 01/05/20 05:44 01/03/20 06:10 Lab Results 01/02/20 01/02/20 01/02/20 Range/Units 17:23 17:23 17:23 WBC 8.0 (3.8-10.6) k/uL RBC 4.86 (4.30-5.90) m/uL Hgb 14.1 (13.0-17.5) gm/dL Hct 43.9 (39.0-53.0) % MCV 90.3 (80.0-100.0) fL MCH 29.0 (25.0-35.0) pg MCHC 32.2 (31.0-37.0) g/dL RDW 13.7 (11.5-15.5) % Plt Count 257 (150-450) k/uL Neutrophils % 79 % Lymphocytes % 12 % Monocytes % 5 % Eosinophils % 1 % Basophils % 0 % Neutrophils # 6.4 (1.3-7.7) k/uL Lymphocytes # 1.0 (1.0-4.8) k/uL Monocytes # 0.4 (0-1.0) k/uL Eosinophils # 0.1 (0-0.7) k/uL Basophils # 0.0 (0-0.2) k/uL PT 25.7 H (9.0-12.0) sec INR 2.6 H (<1.2) APTT 37.1 H (22.0-30.0) sec Sodium 138 (137-145) mmol/L Potassium 4.6 (3.5-5.1) mmol/L Chloride 107 (98-107) mmol/L Carbon Dioxide 21 L (22-30) mmol/L Anion Gap 10 mmol/L BUN 21 H (9-20) mg/dL Creatinine 1.34 H (0.66-1.25) mg/dL Est GFR (CKD-EPI)AfAm 58 (>60 ml/min/1.73 sqM) Est GFR (CKD-EPI)NonAf 50 (>60 ml/min/1.73 sqM) Glucose 150 H (74-99) mg/dL Plasma Lactic Acid Yasir (0.7-2.0) mmol/L Calcium 8.8 (8.4-10.2) mg/dL Magnesium 2.3 (1.6-2.3) mg/dL Total Bilirubin 0.3 (0.2-1.3) mg/dL AST 26 (17-59) U/L ALT 15 (4-49) U/L Alkaline Phosphatase 85 (38-126) U/L Troponin I (0.000-0.034) ng/mL Total Protein 6.9 (6.3-8.2) g/dL Albumin 4.0 (3.5-5.0) g/dL Lipase 154 (23-300) U/L Stool Occult Blood (Negative) Coronavirus (PCR) (Not Detected) Blood Type Blood Type Recheck Bld Type Recheck Status Antibody Screen Spec Expiration Date 01/02/20 01/02/20 01/02/20 Range/Units 17:23 17:23 17:23 WBC (3.8-10.6) k/uL RBC (4.30-5.90) m/uL Hgb (13.0-17.5) gm/dL Hct (39.0-53.0) % MCV (80.0-100.0) fL MCH (25.0-35.0) pg MCHC (31.0-37.0) g/dL RDW (11.5-15.5) % Plt Count (150-450) k/uL Neutrophils % % Lymphocytes % % Monocytes % % Eosinophils % % Basophils % % Neutrophils # (1.3-7.7) k/uL Lymphocytes # (1.0-4.8) k/uL Monocytes # (0-1.0) k/uL Eosinophils # (0-0.7) k/uL Basophils # (0-0.2) k/uL PT (9.0-12.0) sec INR (<1.2) APTT (22.0-30.0) sec Sodium (137-145) mmol/L Potassium (3.5-5.1) mmol/L Chloride (98-107) mmol/L Carbon Dioxide (22-30) mmol/L Anion Gap mmol/L BUN (9-20) mg/dL Creatinine (0.66-1.25) mg/dL Est GFR (CKD-EPI)AfAm (>60 ml/min/1.73 sqM) Est GFR (CKD-EPI)NonAf (>60 ml/min/1.73 sqM) Glucose (74-99) mg/dL Plasma Lactic Acid Yasir 2.0 (0.7-2.0) mmol/L Calcium (8.4-10.2) mg/dL Magnesium (1.6-2.3) mg/dL Total Bilirubin (0.2-1.3) mg/dL AST (17-59) U/L ALT (4-49) U/L Alkaline Phosphatase (38-126) U/L Troponin I <0.012 (0.000-0.034) ng/mL Total Protein (6.3-8.2) g/dL Albumin (3.5-5.0) g/dL Lipase (23-300) U/L Stool Occult Blood (Negative) Coronavirus (PCR) (Not Detected) Blood Type O Positive Blood Type Recheck O Pos Bld Type Recheck Status No Antibody Screen NEGATIVE Spec Expiration Date 01/05/2020 - 232201/02/20 01/02/20 01/03/20 Range/Units 17:58 19:28 06:10 WBC 6.4 (3.8-10.6) k/uL RBC 4.40 (4.30-5.90) m/uL Hgb 13.1 (13.0-17.5) gm/dL Hct 40.7 (39.0-53.0) % MCV 92.7 (80.0-100.0) fL MCH 29.8 (25.0-35.0) pg MCHC 32.2 (31.0-37.0) g/dL RDW 13.7 (11.5-15.5) % Plt Count 233 (150-450) k/uL Neutrophils % 76 % Lymphocytes % 12 % Monocytes % 8 % Eosinophils % 2 % Basophils % 0 % Neutrophils # 4.9 (1.3-7.7) k/uL Lymphocytes # 0.8 L (1.0-4.8) k/uL Monocytes # 0.5 (0-1.0) k/uL Eosinophils # 0.1 (0-0.7) k/uL Basophils # 0.0 (0-0.2) k/uL PT (9.0-12.0) sec INR (<1.2) APTT (22.0-30.0) sec Sodium (137-145) mmol/L Potassium (3.5-5.1) mmol/L Chloride (98-107) mmol/L Carbon Dioxide (22-30) mmol/L Anion Gap mmol/L BUN (9-20) mg/dL Creatinine (0.66-1.25) mg/dL Est GFR (CKD-EPI)AfAm (>60 ml/min/1.73 sqM) Est GFR (CKD-EPI)NonAf (>60 ml/min/1.73 sqM) Glucose (74-99) mg/dL Plasma Lactic Acid Yasir (0.7-2.0) mmol/L Calcium (8.4-10.2) mg/dL Magnesium (1.6-2.3) mg/dL Total Bilirubin (0.2-1.3) mg/dL AST (17-59) U/L ALT (4-49) U/L Alkaline Phosphatase (38-126) U/L Troponin I (0.000-0.034) ng/mL Total Protein (6.3-8.2) g/dL Albumin (3.5-5.0) g/dL Lipase (23-300) U/L Stool Occult Blood Positive (Negative) Coronavirus (PCR) Not Detected (Not Detected) Blood Type Blood Type Recheck Bld Type Recheck Status Antibody Screen Spec Expiration Date 01/03/20 01/03/20 01/03/20 Range/Units 06:10 10:31 10:31 WBC 8.2 (3.8-10.6) k/uL RBC 4.64 (4.30-5.90) m/uL Hgb 13.4 (13.0-17.5) gm/dL Hct 42.4 (39.0-53.0) % MCV 91.3 (80.0-100.0) fL MCH 29.0 (25.0-35.0) pg MCHC 31.7 (31.0-37.0) g/dL RDW 13.7 (11.5-15.5) % Plt Count 233 (150-450) k/uL Neutrophils % % Lymphocytes % % Monocytes % % Eosinophils % % Basophils % % Neutrophils # (1.3-7.7) k/uL Lymphocytes # (1.0-4.8) k/uL Monocytes # (0-1.0) k/uL Eosinophils # (0-0.7) k/uL Basophils # (0-0.2) k/uL PT 21.5 H (9.0-12.0) sec INR 2.2 H (<1.2) APTT (22.0-30.0) sec Sodium 137 (137-145) mmol/L Potassium 4.7 (3.5-5.1) mmol/L Chloride 107 (98-107) mmol/L Carbon Dioxide 25 (22-30) mmol/L Anion Gap 5 mmol/L BUN 20 (9-20) mg/dL Creatinine 1.39 H (0.66-1.25) mg/dL Est GFR (CKD-EPI)AfAm 56 (>60 ml/min/1.73 sqM) Est GFR (CKD-EPI)NonAf 48 (>60 ml/min/1.73 sqM) Glucose 94 (74-99) mg/dL Plasma Lactic Acid Yasir (0.7-2.0) mmol/L Calcium 8.5 (8.4-10.2) mg/dL Magnesium (1.6-2.3) mg/dL Total Bilirubin (0.2-1.3) mg/dL AST (17-59) U/L ALT (4-49) U/L Alkaline Phosphatase (38-126) U/L Troponin I (0.000-0.034) ng/mL Total Protein (6.3-8.2) g/dL Albumin (3.5-5.0) g/dL Lipase (23-300) U/L Stool Occult Blood (Negative) Coronavirus (PCR) (Not Detected) Blood Type Blood Type Recheck Bld Type Recheck Status Antibody Screen Spec Expiration Date 01/03/20 01/04/20 01/04/20 Range/Units 16:50 06:17 06:17 WBC 8.7 7.3 (3.8-10.6) k/uL RBC 4.52 4.50 (4.30-5.90) m/uL Hgb 13.1 13.1 (13.0-17.5) gm/dL Hct 41.2 41.9 (39.0-53.0) % MCV 91.2 93.2 (80.0-100.0) fL MCH 29.0 29.0 (25.0-35.0) pg MCHC 31.7 31.2 (31.0-37.0) g/dL RDW 13.7 13.9 (11.5-15.5) % Plt Count 257 254 (150-450) k/uL Neutrophils % 74 % Lymphocytes % 13 % Monocytes % 9 % Eosinophils % 2 % Basophils % 0 % Neutrophils # 5.4 (1.3-7.7) k/uL Lymphocytes # 1.0 (1.0-4.8) k/uL Monocytes # 0.6 (0-1.0) k/uL Eosinophils # 0.1 (0-0.7) k/uL Basophils # 0.0 (0-0.2) k/uL PT 14.3 H (9.0-12.0) sec INR 1.4 H (<1.2) APTT (22.0-30.0) sec Sodium (137-145) mmol/L Potassium (3.5-5.1) mmol/L Chloride (98-107) mmol/L Carbon Dioxide (22-30) mmol/L Anion Gap mmol/L BUN (9-20) mg/dL Creatinine (0.66-1.25) mg/dL Est GFR (CKD-EPI)AfAm (>60 ml/min/1.73 sqM) Est GFR (CKD-EPI)NonAf (>60 ml/min/1.73 sqM) Glucose (74-99) mg/dL Plasma Lactic Acid Yasir (0.7-2.0) mmol/L Calcium (8.4-10.2) mg/dL Magnesium (1.6-2.3) mg/dL Total Bilirubin (0.2-1.3) mg/dL AST (17-59) U/L ALT (4-49) U/L Alkaline Phosphatase (38-126) U/L Troponin I (0.000-0.034) ng/mL Total Protein (6.3-8.2) g/dL Albumin (3.5-5.0) g/dL Lipase (23-300) U/L Stool Occult Blood (Negative) Coronavirus (PCR) (Not Detected) Blood Type Blood Type Recheck Bld Type Recheck Status Antibody Screen Spec Expiration Date - EKG Data EKG Comments: EKG demonstrates a ventricularly paced rhythm with a rate of 60. QRS 164. QTC of 454. Pacemaker captures appropriately. No Sgarbossa criteria Disposition Clinical Impression: Hematochezia Disposition: ADMITTED IP TO THIS HOSP Condition: Stable Is patient prescribed a controlled substance at d/c from ED?: No Decision to Admit Reason: Admit from EC Decision Date: 01/02/20 Decision Time: 18:40
[2020-01-02] MEDS ORDERED: PANTOPRAZOLE 40 MG/10 ML VIAL IVP STA (18:41)
[2020-01-02] MEDS ORDERED: NALOXONE 0.4 MG/ML 1 ML VIAL IV PRN (18:51)
[2020-01-03 06:43] LABS: Basophils % (A) 0 %; Eosinophils # (A) 0.1 k/uL (0-0.7); Eosinophils % (A) 2 %; HCT 40.7 % (39.0-53.0); HGB 13.1 gm/dL (13.0-17.5); Lymphocytes # (A) 0.8 k/uL (1.0-4.8); Lymphocytes % (A) 12 %; MCH 29.8 pg (25.0-35.0); MCHC 32.2 g/dL (31.0-37.0); MCV 92.7 fL (80.0-100.0); Monocytes # (A) 0.5 k/uL (0-1.0); Monocytes % (A) 8 %; Neutrophils # (A) 4.9 k/uL (1.3-7.7); Neutrophils % (A) 76 %; Platelet Count 233 k/uL (150-450); RDW 13.7 % (11.5-15.5); WBC 6.4 k/uL (3.8-10.6)
[2020-01-03 06:58] LABS: Calcium 8.5 mg/dL (8.4-10.2); Potassium 4.7 mmol/L (3.5-5.1)
[2020-01-03] MEDS: LISINOPRIL 10 MG TAB PO SCH (08:25)
[2020-01-03] MEDS: ATENOLOL 50 MG TAB PO SCH ×2 (08:25→20:20)
[2020-01-03] MEDS: ZINC SULFATE 220 MG CAP PO SCH (08:25)
[2020-01-03] MEDS: MAGNESIUM OXIDE 400 MG TAB PO SCH (08:25)
[2020-01-03] MEDS: PANTOPRAZOLE 40 MG/10 ML VIAL IVP SCH (08:25)
[2020-01-03] MEDS: CALCIUM CARBONATE 500 MG CHEWABLE PO SCH (08:25)
[2020-01-03] MEDS ORDERED: PHYTONADIONE ORAL 5 MG/5 ML ORAL.SYRG PO ONE (11:00)
[2020-01-03 11:03] LABS: INR 2.2 (<1.2); Prothrombin Time 21.5 sec (9.0-12.0)
[2020-01-03 11:49] LABS: HCT 42.4 % (39.0-53.0); HGB 13.4 gm/dL (13.0-17.5); MCHC 31.7 g/dL (31.0-37.0); MCV 91.3 fL (80.0-100.0); Mean Platelet Volume 7.2; Platelet Count 233 k/uL (150-450); RBC 4.64 m/uL (4.30-5.90); RDW 13.7 % (11.5-15.5); WBC 8.2 k/uL (3.8-10.6)
--- NOTE | 2020-01-03 15:54 | P.HPIM ---
History of Present Illness H&P Date: 01/03/20 Chief Complaint: Blood in the stool Patient is a 79-year-old male with a known history of atrial fibrillation status post pacemaker placement several years ago, on anticoagulation with Coumadin, hypertension, GERD, history of CVA/TIA, BPH, prostate cancer in 2049 status post radiation and previous history of smoking came to ER with complaints of bright red blood per rectum. Patient says that she does have constipation on and off. But did have normal bowel movement day before yesterday. Yesterday around 8 AM patient did have a bowel movement with red blood in it and patient could not able to make it to the bathroom. Again later on the day patient will have another episode of bloody stool. Denied any diarrhea otherwise. No complaints of headache or dizziness or lightheadedness. No chest pain or shortness of breath. Denied any NSAID use. Patient had last colonoscopy more than 5 years ago. Otherwise patient denied any complaints of fever or chills. No dysuria or hematuria. No headache or dizziness or lightheadedness. Laboratory data showed hemoglobin 14.1 and INR 2.8 BUN 21 and creatinine 1.34 FOBT positive. EKG showed paced rhythm. Review of Systems Constitutional: Patient denies any fever or chills . No generalized weakness or weight loss. Abdomen: Patient denied nausea vomiting and diarrhea and abdominal pain. Blood per rectum. Cardiovascular: Patient denies any chest pain or short of breath no palpitations. Respiratory: patient denied any cough is from production. No shortness of breath Neurologic: Patient denied any numbness or tingling headache. Musculoskeletal: Patient denies any complaints of joint swelling or deformity. Skin: Negative Psychiatric: Negative Endocrine: No heat or cold intolerance. No recent weight gain. Genitourinary: No dysuria or hematuria. All other 14 point ROS negative except the above Past Medical History Past Medical History: Atrial Fibrillation, Cancer, CVA/TIA, GERD/Reflux, Hyperlipidemia, Prostate Disorder Additional Past Medical History / Comment(s): tia-2004, See Dr Aguirre H&P, arthritis, uses walker or cane, enlarged prostate, prostate CA 2014(radiation), shingles february 2019. History of Any Multi-Drug Resistant Organisms: None Reported Past Surgical History: Cholecystectomy, Hernia Repair, Orthopedic Surgery, Pacemaker Additional Past Surgical History / Comment(s): cervical fusion, lithrotripsy, Past Anesthesia/Blood Transfusion Reactions: No Reported Reaction Additional Past Anesthesia/Blood Transfusion Reaction / Comment(s): Pt has never recieved blood. Type of Cardiac Device: Permanent Pacemaker Device Placement Date:: 2013 Past Psychological History: No Psychological Hx Reported Smoking Status: Former smoker Past Alcohol Use History: None Reported Past Drug Use History: None Reported - Past Family History Father Family Medical History: Cancer Additional Family Medical History / Comment(s): Father had brain tumors. He in his 80's. Mother Family Medical History: Osteoarthritis (OA) Additional Family Medical History / Comment(s): Mother had parkinsons . She in her late 80's. Medications and Allergies Home Medications Medication Instructions Recorded Confirmed Type Simvastatin [Zocor] 20 mg PO HS 08/02/14 01/02/20 History Warfarin [Coumadin] 5 mg PO SUMOTUWETHFR 08/02/14 01/02/20 History Atenolol [Tenormin] 50 mg PO BID 08/03/14 01/02/20 History Vitamin E (Dl,Tocopheryl Acet) 400 unit PO DAILY 08/03/14 01/02/20 History [Vitamin E] Zinc 50 mg PO DAILY 08/03/14 01/02/20 History Acetaminophen [Tylenol] 650 mg PO Q4H PRN 09/17/14 01/02/20 History Calcium Carbonate [Calcium] 600 mg PO DAILY 03/23/19 01/02/20 History Lisinopril [Zestril] 10 mg PO DAILY 03/23/19 01/02/20 History Magnesium 200 mg PO BID 03/23/19 01/02/20 History Warfarin [Coumadin] 2.5 mg PO SA 01/02/20 01/02/20 History Allergies Allergy/AdvReac Type Severity Reaction Status Date / Time No Known Allergies Allergy Verified 01/02/20 18:53 Physical Exam Vitals: Vital Signs Temp Pulse Pulse Resp BP BP Pulse Ox 01/03/20 08:00 98.8 F 60 16 131/68 94 L 01/03/20 04:00 60 18 123/75 01/03/20 00:00 60 18 132/76 95 01/02/20 20:00 98.2 F 60 18 155/74 96 01/02/20 19:52 98.4 F 60 16 130/73 94 L 01/02/20 19:03 60 18 155/74 96 01/02/20 19:00 62 18 105/80 96 01/02/20 18:30 61 132/71 94 L 01/02/20 18:00 60 18 137/67 95 01/02/20 17:30 61 18 153/82 95 01/02/20 17:05 98.8 F 66 18 153/83 95 Intake and Output 01/02/20 01/03/20 01/03/20 22:59 06:59 14:59 Intake Total 240 Balance 240 Intake: Oral 240 Other: # Voids 1 Weight 131.542 kg 126 kg PHYSICAL EXAMINATION: Patient is lying in the bed comfortably, no acute distress, awake alert and oriented.. HEENT: Normocephalic. Neck is supple. Pupils reactive. Nostrils clear. Oral cavity is moist. Ears reveal no drainage. Neck reveals no JVD, carotid bruits, or thyromegaly. CHEST EXAMINATION: Trachea is central. Symmetrical expansion. Lung funes clear to auscultation and percussion. CARDIAC: Normal S1, S2 with no gallops. No murmurs ABDOMEN: Soft. Bowel sounds normal. No organomegaly. No abdominal bruits. Extremities: reveal no edema. No clubbing or cyanosis Neurologically awake, alert, oriented x3 with well-coordinated movements. No focal deficits noted Skin: No rash or skin lesions. Psychiatric: Coperative. Nonsuicidal Musculoskeletal: No joint swelling or deformity. Normal range of motion. Results CBC & Chem 7: 01/03/20 10:31 01/03/20 06:10 Labs: Abnormal Lab Results - Last 24 Hours (Table) 01/02/20 01/02/20 01/03/20 Range/Units 17:23 17:23 06:10 Lymphocytes # 0.8 L (1.0-4.8) k/uL PT 25.7 H (9.0-12.0) sec INR 2.6 H (<1.2) APTT 37.1 H (22.0-30.0) sec Carbon Dioxide 21 L (22-30) mmol/L BUN 21 H (9-20) mg/dL Creatinine 1.34 H (0.66-1.25) mg/dL Glucose 150 H (74-99) mg/dL 01/03/20 Range/Units 06:10 Lymphocytes # (1.0-4.8) k/uL PT (9.0-12.0) sec INR (<1.2) APTT (22.0-30.0) sec Carbon Dioxide (22-30) mmol/L BUN (9-20) mg/dL Creatinine 1.39 H (0.66-1.25) mg/dL Glucose (74-99) mg/dL Thrombosis Risk Factor Assmnt - DVT/VTE Prophylaxis DVT/VTE Prophylaxis: Mechanical Prophylaxis ordered - Choose All That Apply Each Factor Represents 1 point: Obesity (BMI >25) Each Risk Factor Represents 3 Points: Age 75 years or older Thrombosis Risk Factor Assessment Total Risk Factor Score: 4 Thrombosis Risk Factor Assessment Level: Moderate Risk Assessment and Plan Assessment: Acute GI bleed likely diverticular in nature. Mild acute blood loss anemia Chronic atrial fibrillation status post permanent pacemaker placement current on anticoagulation with Coumadin Hyperlipidemia BPH History of prostate cancer in 2014 status post postradiation GERD Previous history of smoking DVT prophylaxis with SCDs Plan: Patient will be continued on gentle hydration. Coumadin is on hold. Monitor H&H closely. Continue the home medications and GI was consulted. Monitor INR level. f Time with Patient: Greater than 30
[2020-01-03 16:59] LABS: HCT 41.2 % (39.0-53.0); HGB 13.1 gm/dL (13.0-17.5); MCHC 31.7 g/dL (31.0-37.0); MCV 91.2 fL (80.0-100.0); Mean Platelet Volume 7.3; Platelet Count 257 k/uL (150-450); RBC 4.52 m/uL (4.30-5.90); RDW 13.7 % (11.5-15.5); WBC 8.7 k/uL (3.8-10.6)
[2020-01-03] MEDS ORDERED: PEG 3350-NA SULF,BICARB,CL/KCL 4,000 ML BOTTLE PO ONE (17:00)
[2020-01-03] MEDS: ATORVASTATIN 10 MG TAB PO SCH (20:21)
--- NOTE | 2020-01-03 23:33 | CONS ---
CONSULTATION DATE OF DICTATION: 01/03/2020 REASON FOR CONSULTATION: Rectal bleeding. HISTORY OF PRESENT ILLNESS: The patient is a 79-year-old pleasant white male who was admitted to the hospital with rectal bleeding that happened yesterday. He woke up in the morning yesterday and had a bowel movement and subsequently saw significant amount of bright red blood per rectum. A couple of hours later he had another episode with large amount of bright red blood in the stool, but no clots. He denies any associated abdominal pain. of these symptoms in the past. He reports no nausea or vomiting. No prior history of constipation. Last colonoscopy was approximately 10 years ago. He denies any recent NSAID use. He does have history of atrial fibrillation and he has been on Coumadin and INR at the time of admission to the hospital yesterday was 2.6 the last time he took Coumadin was day before yesterday. PAST MEDICAL HISTORY: Significant for atrial fibrillation, hypertension, hyperlipidemia. MEDICATIONS AT HOME: Zocor, Tenormin, Coumadin, Vitamin E, Tylenol, calcium, Zestril, magnesium, and zinc. ALLERGIES: None. PAST SURGICAL HISTORY: Prostate cancer with radiation in 2014, history of hernia repair, cholecystectomy, pacemaker implantation, lithotripsy, cervical fusion. SOCIAL HISTORY: No smoking. No alcohol use. FAMILY HISTORY: Unremarkable. Father had coronary artery disease and brain tumor. Mother had Parkinson's. REVIEW OF SYSTEMS: CARDIOPULMONARY: No chest pain, no shortness of breath. GENITOURINARY: No dysuria or hematuria. MUSCULOSKELETAL: Unremarkable. SKIN: Unremarkable. ENDOCRINE: Unremarkable. PSYCHIATRIC: Unremarkable. NEUROLOGY: Unremarkable. ENT/VISION: Unremarkable. CONSTITUTIONAL: No recent weight loss. No fever, chills, night sweats. PHYSICAL EXAMINATION: On physical examination, he appears comfortable. No apparent distress. Vital signs are stable. Blood pressure is 132/71, pulse rate 61, temperature 96.5. HEENT EXAMINATION: Unremarkable. Conjunctivae pink. Sclerae anicteric. Oral cavity, no lesions. NECK: No JVD or lymph node enlargement. CHEST: Clear to auscultation. HEART: Regular rate and rhythm. ABDOMEN: Soft. Bowel sounds are positive. No organomegaly. EXTREMITIES: No pedal edema. SKIN: No rashes. NEUROLOGIC: Alert and oriented x3. No focal deficits. LABS: Labs done at the time of admission to the hospital: WBC was 8, hemoglobin 14.1 platelets normal. Today hemoglobin is 13.4. INR is 2.2. Yesterday it was 2.6. IMPRESSION: 1. 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 The patient has history of prostate cancer in the past, radiation therapy in 2014. His last colonoscopy was more than 10 years ago and according to the patient was within normal limits. 2. Atrial fibrillation on Coumadin, currently on hold. INR is 2.2. 3. History of hypertension and hyperlipidemia. RECOMMENDATIONS: 1. Start him on a clear liquid diet. 2. CBC q.12 hours. 3. We will give him vitamin K 5 mg orally today. 4. Will plan for a colonoscopy tomorrow. Discussed with him risks, benefits and complications and he is agreeable to it. Thank you for this consultation. ZAHRA / MARSHALL: [id number] /
[2020-01-04 07:07] LABS: INR 1.4 (<1.2); Prothrombin Time 14.3 sec (9.0-12.0)
[2020-01-04 08:44] LABS: Basophils % (A) 0 %; Eosinophils # (A) 0.1 k/uL (0-0.7); Eosinophils % (A) 2 %; HCT 41.9 % (39.0-53.0); HGB 13.1 gm/dL (13.0-17.5); Lymphocytes % (A) 13 %; MCHC 31.2 g/dL (31.0-37.0); MCV 93.2 fL (80.0-100.0); Mean Platelet Volume 7.6; Monocytes # (A) 0.6 k/uL (0-1.0); Monocytes % (A) 9 %; Neutrophils # (A) 5.4 k/uL (1.3-7.7); Neutrophils % (A) 74 %; Platelet Count 254 k/uL (150-450); RDW 13.9 % (11.5-15.5); WBC 7.3 k/uL (3.8-10.6)
[2020-01-04] MEDS: PANTOPRAZOLE 40 MG/10 ML VIAL IVP SCH (08:46)
[2020-01-04] MEDS: ZINC SULFATE 220 MG CAP PO SCH (08:46)
[2020-01-04] MEDS: ATENOLOL 50 MG TAB PO SCH ×2 (08:46→20:36)
[2020-01-04] MEDS: MAGNESIUM OXIDE 400 MG TAB PO SCH (08:46)
[2020-01-04] MEDS: CALCIUM CARBONATE 500 MG CHEWABLE PO SCH (08:46)
[2020-01-04] MEDS: LISINOPRIL 10 MG TAB PO SCH (08:46)
[2020-01-04] MEDS ORDERED: PROPOFOL 10 MG/ML 20 ML VIAL IV ONE (10:12)
[2020-01-04] MEDS ORDERED: LACTATED RINGERS 1,000 ML IV ONE ×2 (10:21)
--- NOTE | 2020-01-04 10:38 | P.PCN ---
Date of Procedure: 01/04/20 Description of Procedure: BRIEF HISTORY: Patient is a 79-year-old male presenting to the hospital with complaints of bright or blood per rectum. Last colonoscopy 10 years ago and within normal limits. Patient has a history of radiation therapy. He is on Coumadin for atrial fibrillation. PROCEDURE PERFORMED: Colonoscopy. PREOPERATIVE DIAGNOSIS: Rectal hemorrhage, acute lower GI bleed. ESTIMATED BLOOD LOSS: Minimal. IV sedation per Anesthesia. PROCEDURE: After informed consent was obtained, the patient, was brought into the endoscopy unit. IV sedation was administered by Anesthesia under continuous monitoring. Digital rectal examination was normal. Initially the Olympus CF-190 flexible video colonoscope was then inserted in the rectum, gradually advanced into the cecum without any difficulty. Careful examination was performed as the scope was gradually being withdrawn. Ileocecal valve and the appendiceal orifice were visualized and appeared normal. Prep was excellent. Mucosa of the cecum, ascending colon, transverse colon, descending colon, sigmoid colon, and rectum appeared normal. The patient had multiple small and large diverticula noted throughout the entire colon. Retroflexion was performed in the rectum and no lesions were seen, moderate internal hemorrhoids noted. The patient tolerated the procedure well. IMPRESSION: Moderate weeks diverticulosis. Moderate internal hemorrhoids. No active bleeding or signs of old blood. RECOMMENDATIONS: Findings of this examination were discussed with the patient. Okay for low fiber diet. Okay to resume anticoagulation therapy tomorrow. Okay for discharge when otherwise medically stable. Would recommend local hemorrhoidal care with warm baths, stool softener and Anusol.
[2020-01-04] MEDS: ATORVASTATIN 10 MG TAB PO SCH (20:36)
[2020-01-04] MEDS: HYDROCORTISONE 2.5% RECTAL CREAM 30 GM TUBE RECTAL SCH (21:00)
--- NOTE | 2020-01-05 00:14 | P.PN ---
Subjective Progress Note Date: 01/04/20 Principal diagnosis: GI bleed Patient is a 79-year-old male with a known history of atrial fibrillation status post pacemaker placement several years ago, on anticoagulation with Coumadin, hypertension, GERD, history of CVA/TIA, BPH, prostate cancer in 2049 status post radiation and previous history of smoking came to ER with complaints of bright red blood per rectum. Patient says that she does have constipation on and off. But did have normal bowel movement day before yesterday. Yesterday around 8 AM patient did have a bowel movement with red blood in it and patient could not able to make it to the bathroom. Again later on the day patient will have another episode of bloody stool. Denied any diarrhea otherwise. No complaints of headache or dizziness or lightheadedness. No chest pain or shortness of breath. Denied any NSAID use. Patient had last colonoscopy more than 5 years ago. Otherwise patient denied any complaints of fever or chills. No dysuria or he maturia. No headache or dizziness or lightheadedness. Laboratory data showed hemoglobin 14.1 and INR 2.8 BUN 21 and creatinine 1.34 FOBT positive. EKG showed paced rhythm. 01/04/2020 Patient is currently lying in the bed comfortably in the bed comfortably. Status post colonoscopy. Showed moderate pandiverticulosis. Moderate internal hemorrhoids. No active bleeding was noted. Patient was started on low fiber diet and also and also resume anticoagulation therapy tomorrow as per GI recommendations. Patient will be continued on stool softeners and anusol cream for hemorroids management Current medications reviewed. Objective - Vital Signs Vital signs: Vital Signs Temp 97.9 F 01/04/20 20:38 Pulse 60 01/04/20 20:38 Resp 18 01/04/20 20:38 BP 103/55 01/04/20 20:38 Pulse Ox 97 01/04/20 20:38 Intake & Output 01/04/20 01/04/20 01/05/20 06:59 18:59 06:59 Intake Total 200 340 Output Total 1 Balance 199 340 Weight 135.3 kg Intake: IV 100 Oral 200 240 Output: Urine 1 Other: # Voids 3 # Bowel Movements 1 - Exam PHYSICAL EXAMINATION: Patient is lying in the bed comfortably, no acute distress, awake alert and oriented.. HEENT: Normocephalic. Neck is supple. Pupils reactive. Nostrils clear. Oral cavity is moist. Ears reveal no drainage. Neck reveals no JVD, carotid bruits, or thyromegaly. CHEST EXAMINATION: Trachea is central. Symmetrical expansion. Lung funes clear to auscultation and percussion. CARDIAC: Normal S1, S2 with no gallops. No murmurs ABDOMEN: Soft. Bowel sounds normal. No organomegaly. No abdominal bruits. Extremities: reveal no edema. No clubbing or cyanosis Neurologically awake, alert, oriented x3 with well-coordinated movements. No focal deficits noted Skin: No rash or skin lesions. Psychiatric: Coperative. Nonsuicidal Musculoskeletal: No joint swelling or deformity. Normal range of motion. - Labs CBC & Chem 7: 01/04/20 06:17 01/03/20 06:10 Labs: Abnormal Lab Results - Last 24 Hours (Table) 01/04/20 Range/Units 06:17 PT 14.3 H (9.0-12.0) sec INR 1.4 H (<1.2) Assessment and Plan Assessment: Acute GI bleed likely diverticular in nature. Mild acute blood loss anemia Chronic atrial fibrillation status post permanent pacemaker placement current on anticoagulation with Coumadin Hyperlipidemia BPH History of prostate cancer in 2015 status post postradiation GERD Previous history of smoking DVT prophylaxis with SCDs Plan: Patient will be continued on gentle hydration. Coumadin is on hold. Monitor H&H closely. Continue the home medications and GI was consulted. Monitor INR level. f Time with Patient: Greater than 30
[2020-01-05 06:03] LABS: Basophils % (A) 0 %; Eosinophils # (A) 0.2 k/uL (0-0.7); Eosinophils % (A) 2 %; HCT 41.6 % (39.0-53.0); Lymphocytes % (A) 14 %; MCH 28.8 pg (25.0-35.0); MCHC 31.3 g/dL (31.0-37.0); Mean Platelet Volume 7.1; Monocytes # (A) 0.6 k/uL (0-1.0); Monocytes % (A) 9 %; Neutrophils # (A) 5.4 k/uL (1.3-7.7); Neutrophils % (A) 73 %; Platelet Count 250 k/uL (150-450); RBC 4.52 m/uL (4.30-5.90); RDW 13.8 % (11.5-15.5); WBC 7.4 k/uL (3.8-10.6)
[2020-01-05] MEDS: PANTOPRAZOLE 40 MG TABLET PO SCH ×2 (06:26→08:19)
[2020-01-05] MEDS: CALCIUM CARBONATE 500 MG CHEWABLE PO SCH (08:18)
[2020-01-05] MEDS: ATENOLOL 50 MG TAB PO SCH (08:19)
[2020-01-05] MEDS: LISINOPRIL 10 MG TAB PO SCH (08:19)
[2020-01-05] MEDS: MAGNESIUM OXIDE 400 MG TAB PO SCH (08:19)
[2020-01-05] MEDS: ZINC SULFATE 220 MG CAP PO SCH (08:20)
[2020-01-05] MEDS: HYDROCORTISONE 2.5% RECTAL CREAM 30 GM TUBE RECTAL SCH (08:20)
[2020-01-05] MEDS ORDERED: DOCUSATE 100 MG CAP PO SCH (09:00)
[2020-01-05 12:51] VITALS: BP 124/69; PULSE 61; RESP 18; TEMP 98.1
[2020-01-05] MEDS ORDERED: WARFARIN 5 MG TAB PO SCH (18:00)
[2020-01-09] MEDS ORDERED: WARFARIN 2.5 MG TAB PO SCH (18:00)
--- NOTE | 2020-01-14 00:25 | P.DS ---
Providers Date of admission: 01/04/20 09:20 Expected date of discharge: 01/05/20 Attending physician: Grover Yoder MD Primary care physician: Celina Munoz Hospital Course: Discharge Diagnosis Acute GI bleed likely diverticular vs internal Hemorrhoids.in nature. Mild acute blood loss anemia Chronic atrial fibrillation status post permanent pacemaker placement current on anticoagulation with Coumadin Hyperlipidemia BPH History of prostate cancer in 2014 status post postradiation GERD Previous history of smoking DVT prophylaxis with SCDs Hospital course. Patient is a 79-year-old male with a known history of atrial fibrillation status post pacemaker placement several years ago, on anticoagulation with Coumadin, hypertension, GERD, history of CVA/TIA, BPH, prostate cancer in 2049 status post radiation and previous history of smoking came to ER with complaints of bright red blood per rectum. Patient says that she does have constipation on and off. But did have normal bowel movement day before yesterday. Yesterday around 8 AM patient did have a bowel movement with red blood in it and patient could not able to make it to the bathroom. Again later on the day patient will have another episode of bloody stool. Denied any diarrhea otherwise. No complaints of headache or dizziness or lightheadedness. No chest pain or shortness of breath. Denied any NSAID use. Patient had last colonoscopy more than 5 years ago. Otherwise patient denied any complaints of fever or chills. No dysuria or hematuria. No headache or dizziness or lightheadedness. Laboratory data showed hemoglobin 14.1 and INR 2.8 BUN 21 and creatinine 1.34 FOBT positive. EKG showed paced rhythm. 01/04/2020 Patient is currently lying in the bed comfortably in the bed comfortably. Status post colonoscopy. Showed moderate pandiverticulosis. Moderate internal hemorrhoids. No active bleeding was noted. Patient was started on low fiber diet and also and also resume anticoagulation therapy tomorrow as per GI recommendations. Patient will be continued on stool softeners and anusol cream for hemorroids management 01/04/19 no activ ebleeding today. Hb is stable. s/p Colonoscopy. GI rec. Anusol cream. Moderate weeks diverticulosis. Moderate internal hemorrhoids. No active bleeding or signs of old blood. Warfarin will be restarted . GI is ok to restart. Pt. is being discharged home today. Discharge PE was done and vitals reviewed. Patient Condition at Discharge: Stable Plan - Discharge Summary Discharge Rx Participant: Yes New Discharge Prescriptions: New Docusate [Colace] 100 mg PO DAILY PRN #30 cap PRN Reason: Constipation Hydrocortisone Pr Cream [Proctosol-Hc 2.5%] 1 applic RECTAL BID PRN #7 applic PRN Reason: Pain Continue Warfarin [Coumadin] 5 mg PO SUMOTUWETHFR Simvastatin [Zocor] 20 mg PO HS Vitamin E (Dl,Tocopheryl Acet) [Vitamin E] 400 unit PO DAILY Zinc 50 mg PO DAILY Atenolol [Tenormin] 50 mg PO BID Acetaminophen [Tylenol] 650 mg PO Q4H PRN PRN Reason: Pain Lisinopril [Zestril] 10 mg PO DAILY Calcium Carbonate [Calcium] 600 mg PO DAILY Magnesium 200 mg PO BID Warfarin [Coumadin] 2.5 mg PO SA Discharge Medication List Simvastatin [Zocor] 20 mg PO HS 08/02/14 [History] Warfarin [Coumadin] 5 mg PO SUMOTUWETHFR 08/02/14 [History] Atenolol [Tenormin] 50 mg PO BID 08/03/14 [History] Vitamin E (Dl,Tocopheryl Acet) [Vitamin E] 400 unit PO DAILY 08/03/14 [History] Zinc 50 mg PO DAILY 08/03/14 [History] Acetaminophen [Tylenol] 650 mg PO Q4H PRN 09/17/14 [History] Calcium Carbonate [Calcium] 600 mg PO DAILY 03/23/19 [History] Lisinopril [Zestril] 10 mg PO DAILY 03/23/19 [History] Magnesium 200 mg PO BID 03/23/19 [History] Warfarin [Coumadin] 2.5 mg PO SA 01/02/20 [History] Docusate [Colace] 100 mg PO DAILY PRN #30 cap 01/05/20 [Rx] Hydrocortisone Pr Cream [Proctosol-Hc 2.5%] 1 applic RECTAL BID PRN #7 applic 01/05/20 [Rx] Follow up Appointment(s)/Referral(s): eClina Munoz MD [Primary Care Provider] - 1-2 days (January 06, 12:40) Rick Singh MD [STAFF PHYSICIAN] - 2 Weeks Patient Instructions/Handouts: Warfarin (By mouth), Diverticulosis Diet (GEN), Melena (GEN) Activity/Diet/Wound Care/Special Instructions: activity as tolerated Discharge Disposition: HOME SELF-CARE
== END 2020-01-05 13:39 | disposition home or self-care (01) | DRG 378 ==
LOC: EC 16:53 → 1SOBS 18:51 → 3SCARD 19:29 → OBSVTOIN 01-04 09:20
PROVIDERS: ADMIT Internal Medicine; ATTEND Internal Medicine
PROC: 0DJD8ZZ Inspection of Lower Intestinal Tract, Via Natural or Artificial Opening Endoscopic (ICD-10-PCS; principal; 2020-01-04 10:40)
DX: K57.51 Diverticulosis of both small and large intestine without perforation or abscess with bleeding (principal); I48.20 Chronic atrial fibrillation, unspecified; D62 Acute posthemorrhagic anemia; Z11.59 Encounter for screening for other viral diseases; K64.8 Other hemorrhoids; K21.9 Gastro-esophageal reflux disease without esophagitis; E78.5 Hyperlipidemia, unspecified; N40.0 Benign prostatic hyperplasia without lower urinary tract symptoms; K59.00 Constipation, unspecified; I10 Essential (primary) hypertension; Z85.46 Personal history of malignant neoplasm of prostate; Z79.01 Long term (current) use of anticoagulants; Z79.899 Other long term (current) drug therapy; Z92.3 Personal history of irradiation; Z86.19 Personal history of other infectious and parasitic diseases; Z90.49 Acquired absence of other specified parts of digestive tract; Z98.890 Other specified postprocedural states; Z86.73 Personal history of transient ischemic attack (TIA), and cerebral infarction without residual deficits; Z95.0 Presence of cardiac pacemaker; Z98.1 Arthrodesis status; Z87.891 Personal history of nicotine dependence; Z82.0 Family history of epilepsy and other diseases of the nervous system; Z82.61 Family history of arthritis; Z84.89 Family history of other specified conditions; Z82.49 Family history of ischemic heart disease and other diseases of the circulatory system
CPT/HCPCS: 36415; 45378; 80048; 80053; 82272; 83605; 83690; 83735; 84484; 85025; 85027; 85610; 85730; 86850; 86900; 86901; 96374; 99285

== ENCOUNTER 2020-08-03 18:02 | Inpatient (IN) | payer MEDICARE, BC ==
[2020-08-03] MEDS ORDERED: SODIUM CHLORIDE 0.9% 500 ML 500 ML IV SCH (18:15)
[2020-08-03] MEDS ORDERED: ACETAMINOPHEN TAB 500 MG TAB PO STA (18:20)
--- NOTE | 2020-08-03 18:23 | ED ---
General Adult HPI - General Chief complaint: Fever Stated complaint: Bladder Infection Time Seen by Provider: 08/03/20 18:05 Source: patient, EMS Mode of arrival: EMS Limitations: no limitations - History of Present Illness Initial comments: Dictation was produced using [employer] dictation software. please excuse any grammatical, word or spelling errors. This patient was cared for during a federal and state declared state of emergency secondary to Covid 19 Chief Complaint: 79-year-old male past medical history of H fibrillation, CABG, GERD, dyslipidemia prostate disease presents with fever and weakness History of Present Illness: Patient is a 79-year-old male who states that he's been having weakness and constitutional symptoms starting today after a nap. Patient states that his symptoms began this afternoon. After symptoms began. Daughter who told him that he might have a urinary tract infection. Patient states he has mild postnasal drip however has no other symptoms except for constitutional symptoms. Patient was weak. Denies any chest pain, abdominal pain or sore throat. Slight runny nose, no cough, no abdominal pain, no diarrhea, no rash or neck stiffness. The ROS documented in this emergency department record has been reviewed and confirmed by me. Those systems with pertinent positive or negative responses have been documented in the HPI. All other systems are other negative and/or noncontributory. PHYSICAL EXAM: General Impression: Alert and oriented x3, not in acute distress HEENT: Normocephalic atraumatic, extra-ocular movements intact, pupils equal and reactive to light bilaterally, mucous membranes moist. Cardiovascular: Heart regular rate and rhythm Chest: Able to complete full sentences, no retractions, no tachypnea Abdomen: abdomen soft, non-tender, non-distended, no organomegaly Musculoskeletal: Pulses present and equal in all extremities, no peripheral edema Motor: no focal deficits noted Neurological: CN II-XII grossly intact, no focal motor or sensory deficits noted Skin: Intact with no visualized rashes Psych: Normal affect and mood ED course: 79-year-old male presents with constitutional symptoms. Signs upon arrival shows temperature 101.5, rest of vital signs within acceptable limits. Patient is having no localizing symptoms. EKG interpretation: Ventricular rate 65, paced rhythm, DE interval 236, QRS 156, QTC 482. No DE prolongation, no QTC prolongation, no ST or T-wave changes noted. EKG compared to 01/02/2020 showing no changes. Overall, this EKG is unr emarkable Laboratory evaluation obtained. Leukocytosis of 0. Neutrophils 16. Coag panel shows minor 1.9. Metabolic panel shows no anion gap acidosis. Lactic acidosis of 2.5. CRP 18.1 current a virus negative. Chest x-ray shows left basilar infiltrate with small pleural effusion. Patient reevaluated at bedside at approximately 7:35 PM in stable medical condition. Patient be admitted for pneumonia sepsis. - Related Data Home Medications Medication Instructions Recorded Confirmed Simvastatin [Zocor] 20 mg PO HS 08/02/14 08/03/20 Warfarin [Coumadin] 5 mg PO SUMOWETHFR 08/02/14 08/03/20 Vitamin E (Dl,Tocopheryl Acet) 400 unit PO DAILY 08/03/14 08/03/20 [Vitamin E] Zinc 50 mg PO BID 08/03/14 08/03/20 atenoloL [Tenormin] 50 mg PO BID 08/03/14 08/03/20 Acetaminophen [Tylenol] 650 mg PO Q4H PRN 09/17/14 08/03/20 Calcium Carbonate [Calcium] 600 mg PO BID 03/23/19 08/03/20 Magnesium 200 mg PO BID 03/23/19 08/03/20 lisinopriL [Zestril] 10 mg PO DAILY 03/23/19 08/03/20 Warfarin [Coumadin] 2.5 mg PO TUSA 01/02/20 08/03/20 Allergies Allergy/AdvReac Type Severity Reaction Status Date / Time No Known Allergies Allergy Verified 08/03/20 19:38 Review of Systems ROS Statement: Those systems with pertinent positive or pertinent negative responses have been documented in the HPI. ROS Other: All systems not noted in ROS Statement are negative. Past Medical History Past Medical History: Atrial Fibrillation, Cancer, CVA/TIA, GERD/Reflux, Hyperlipidemia, Prostate Disorder Additional Past Medical History / Comment(s): tia-2004, See Dr Aguirre H&P, arthritis, uses walker or cane, enlarged prostate, prostate CA 2014(radiation), shingles february 2019. History of Any Multi-Drug Resistant Organisms: None Reported Past Surgical History: Cholecystectomy, Hernia Repair, Orthopedic Surgery, Pacemaker Additional Past Surgical History / Comment(s): cervical fusion, lithrotripsy, Past Anesthesia/Blood Transfusion Reactions: No Reported Reaction Additional Past Anesthesia/Blood Transfusion Reaction / Comment(s): Pt has never recieved blood. Type of Cardiac Device: Permanent Pacemaker Device Placement Date:: 2013 Past Psychological History: No Psychological Hx Reported Smoking Status: Former smoker Past Alcohol Use History: None Reported Past Drug Use History: None Reported - Past Family History Father Family Medical History: Cancer Additional Family Medical History / Comment(s): Father had brain tumors. He in his 80's. Mother Family Medical History: Osteoarthritis (OA) Additional Family Medical History / Comment(s): Mother had parkinsons . She in her late 80's. General Exam Limitations: no limitations Course Vital Signs 08/03/20 18:05 Temperature 101.5 F H Pulse Rate 74 Respiratory 18 Rate Blood Pressure 100/56 O2 Sat by Pulse 95 Oximetry Medical Decision Making - Lab Data Result diagrams: 08/03/20 18:50 08/03/20 18:50 Lab Results 08/03/20 08/03/20 08/03/20 Range/Units 18:50 18:50 18:50 WBC 17.0 H (3.8-10.6) k/uL RBC 4.84 (4.30-5.90) m/uL Hgb 13.9 (13.0-17.5) gm/dL Hct 43.1 (39.0-53.0) % MCV 89.1 (80.0-100.0) fL MCH 28.8 (25.0-35.0) pg MCHC 32.3 (31.0-37.0) g/dL RDW 14.4 (11.5-15.5) % Plt Count 243 (150-450) k/uL MPV 7.5 Neutrophils % 94 % Lymphocytes % 2 % Monocytes % 3 % Eosinophils % 1 % Basophils % 0 % Neutrophils # 16.0 H (1.3-7.7) k/uL Lymphocytes # 0.3 L (1.0-4.8) k/uL Monocytes # 0.5 (0-1.0) k/uL Eosinophils # 0.2 (0-0.7) k/uL Basophils # 0.0 (0-0.2) k/uL PT 19.1 H (9.0-12.0) sec INR 1.9 H (<1.2) APTT 27.7 (22.0-30.0) sec Sodium 139 (137-145) mmol/L Potassium 4.3 (3.5-5.1) mmol/L Chloride 111 H (98-107) mmol/L Carbon Dioxide 21 L (22-30) mmol/L Anion Gap 7 mmol/L BUN 21 H (9-20) mg/dL Creatinine 1.50 H (0.66-1.25) mg/dL Est GFR (CKD-EPI)AfAm 51 (>60 ml/min/1.73 sqM) Est GFR (CKD-EPI)NonAf 44 (>60 ml/min/1.73 sqM) Glucose 121 H (74-99) mg/dL Plasma Lactic Acid Yasir (0.7-2.0) mmol/L Calcium 8.4 (8.4-10.2) mg/dL Total Bilirubin 0.6 (0.2-1.3) mg/dL AST 41 (17-59) U/L ALT 26 (4-49) U/L Alkaline Phosphatase 66 (38-126) U/L C-Reactive Protein 18.1 H (<10.0) mg/L Total Protein 6.0 L (6.3-8.2) g/dL Albumin 3.3 L (3.5-5.0) g/dL Coronavirus (PCR) (Not Detectd) 08/03/20 08/03/20 Range/Units 18:50 18:50 WBC (3.8-10.6) k/uL RBC (4.30-5.90) m/uL Hgb (13.0-17.5) gm/dL Hct (39.0-53.0) % MCV (80.0-100.0) fL MCH (25.0-35.0) pg MCHC (31.0-37.0) g/dL RDW (11.5-15.5) % Plt Count (150-450) k/uL MPV Neutrophils % % Lymphocytes % % Monocytes % % Eosinophils % % Basophils % % Neutrophils # (1.3-7.7) k/uL Lymphocytes # (1.0-4.8) k/uL Monocytes # (0-1.0) k/uL Eosinophils # (0-0.7) k/uL Basophils # (0-0.2) k/uL PT (9.0-12.0) sec INR (<1.2) APTT (22.0-30.0) sec Sodium (137-145) mmol/L Potassium (3.5-5.1) mmol/L Chloride (98-107) mmol/L Carbon Dioxide (22-30) mmol/L Anion Gap mmol/L BUN (9-20) mg/dL Creatinine (0.66-1.25) mg/dL Est GFR (CKD-EPI)AfAm (>60 ml/min/1.73 sqM) Est GFR (CKD-EPI)NonAf (>60 ml/min/1.73 sqM) Glucose (74-99) mg/dL Plasma Lactic Acid Yasir 2.5 H* (0.7-2.0) mmol/L Calcium (8.4-10.2) mg/dL Total Bilirubin (0.2-1.3) mg/dL AST (17-59) U/L ALT (4-49) U/L Alkaline Phosphatase (38-126) U/L C-Reactive Protein (<10.0) mg/L Total Protein (6.3-8.2) g/dL Albumin (3.5-5.0) g/dL Coronavirus (PCR) Not Detected (Not Detectd) Disposition Clinical Impression: Pneumonia Disposition: ADMITTED IP TO THIS [facility] Condition: Fair Referrals: Celina Munoz MD [Primary Care Provider] - 1-2 days Decision Time: 19:50
[2020-08-03 19:12] LABS: Basophils % (A) 0 %; Eosinophils # (A) 0.2 k/uL (0-0.7); Eosinophils % (A) 1 %; HCT 43.1 % (39.0-53.0); HGB 13.9 gm/dL (13.0-17.5); Lymphocytes # (A) 0.3 k/uL (1.0-4.8); Lymphocytes % (A) 2 %; MCH 28.8 pg (25.0-35.0); MCHC 32.3 g/dL (31.0-37.0); MCV 89.1 fL (80.0-100.0); Mean Platelet Volume 7.5; Monocytes # (A) 0.5 k/uL (0-1.0); Monocytes % (A) 3 %; Neutrophils % (A) 94 %; Platelet Count 243 k/uL (150-450); RBC 4.84 m/uL (4.30-5.90); RDW 14.4 % (11.5-15.5)
--- NOTE | 2020-08-03 19:15 | XR ---
EXAMINATION TYPE: XR chest 1V portable DATE OF EXAM: 08/03/2020 COMPARISON: 03/16/2015. HISTORY: Fever. TECHNIQUE: Single frontal view of the chest is obtained. FINDINGS: There is left basilar opacity with small pleural effusion. No pneumothorax seen. The card iac silhouette size is within normal limits. Left pacemaker noted. The osseous structures are withou t acute abnormality. Cervical spine fusion seen. IMPRESSION: Left basilar infiltrate with small pleural effusion in the appropriate clinical setting.
[2020-08-03 19:19] LABS: INR 1.9 (<1.2); Partial Thromboplastin Time 27.7 sec (22.0-30.0); Prothrombin Time 19.1 sec (9.0-12.0)
[2020-08-03 19:20] LABS: Albumin 3.3 g/dL (3.5-5.0); C Reactive Protein 18.1 mg/L (<10.0); Calcium 8.4 mg/dL (8.4-10.2); Potassium 4.3 mmol/L (3.5-5.1); Total Bilirubin 0.6 mg/dL (0.2-1.3)
[2020-08-03] MEDS ORDERED: AMPICILLIN-SULBACTAM 3 GM in SODIUM CHLORIDE 0.9% 100 ML IVPB STA (19:39)
[2020-08-03] MEDS ORDERED: NALOXONE 0.4 MG/ML 1 ML VIAL IV PRN (19:47)
[2020-08-03] MEDS ORDERED: SODIUM CHLORIDE 0.9% 1,000 ML IV STA (19:48)
[2020-08-03] MEDS: SODIUM CHLORIDE 0.9% 1,000 ML IV SCH (20:09)
[2020-08-04 04:24] LABS: Appearance,Urine Turbid (Clear); Bilirubin,Urine Negative (Negative); Blood,Urine Moderate (Negative); Color,Urine Yellow; Glucose,Urine (UA) Negative (Negative); Ketones,Urine Trace (Negative); Leukocyte Esterase,Urine Large (Negative); Nitrite,Urine Negative (Negative); PH, Urine 6.5 (5.0-8.0); Protein,Urine 1+ (Negative); RBC,Urine 86 /hpf (0-5); Specific Gravity,Urine 1.021 (1.001-1.035); Squamous Epithelial Cell,Urine 1 /hpf (0-4); Urobilinogen,Urine <2.0 mg/dL (<2.0); WBC,Urine >182 /hpf (0-5)
[2020-08-04] MEDS: SODIUM CHLORIDE 0.9% 1,000 ML IV SCH ×3 (04:58→17:01)
[2020-08-04 06:35] LABS: Basophils % (A) 0 %; Eosinophils % (A) 0 %; HCT 37.8 % (39.0-53.0); HGB 12.5 gm/dL (13.0-17.5); Lymphocytes # (A) 0.4 k/uL (1.0-4.8); Lymphocytes % (A) 2 %; MCH 29.9 pg (25.0-35.0); MCV 90.8 fL (80.0-100.0); Mean Platelet Volume 7.3; Monocytes % (A) 6 %; Neutrophils # (A) 14.5 k/uL (1.3-7.7); Neutrophils % (A) 91 %; Platelet Count 207 k/uL (150-450); RBC 4.16 m/uL (4.30-5.90); RDW 14.4 % (11.5-15.5)
[2020-08-04 10:25] LABS: African American GFR (CKD) 40.6 (60.0-200.0); Albumin 3.7 g/dL (3.80-4.90); Albumin/Globulin Ratio 2.31 (1.60-3.17); Anion Gap 6.1 mmol/L (4.00-12.00); Calcium 8.1 mg/dL (8.7-10.3); Carbon Dioxide 21.9 mmol/L (21.6-31.8); Globulin 1.6 g/dL (1.6-3.3); Potassium 4.9 mmol/L (3.5-5.5); Total Bilirubin 0.5 mg/dL (0.3-1.2); Total Protein 5.3 g/dL (6.2-8.2)
[2020-08-04] MEDS: ACETAMINOPHEN TAB 325 MG TAB PO PRN (12:44)
--- NOTE | 2020-08-04 13:42 | P.HPIM ---
History of Present Illness This is a pleasant 79 years old male with past medical history of chronic atrial fibrillation, hyperlipidemia, BPH, history of prostate cancer in 2015 status post radiation, GERD He was recently hospitalized in this hospital about 6 months ago for acute GI bleed, likely diverticular versus internal hemorrhoids, is a patient of Dr. 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 He presents because of fever and shivering/chills of 2 days' duration. Patient complaining of from dark urine, however he denies dysuria. Patient could not tell about the frequency and urgency as he uses that for most of the time. He denies new back pain. He denies chest pain or coughing or dyspnea. No chest pain. No abdominal pain. No diarrhea. No headache or weakness or numbness. No rash He denies smoking, alcohol or illicit drugs Vitas looks stable, patient had fever of 101.5 on admission. Labs showed leukocytosis of 17-16k, hemoglobin 12.5, platelet normal. INR is 1.9, creatinine 1.8 with baseline 1.3-1.5. High lactic acid 2.7 came back to normal at 1.7. AST slightly elevated at 90, ALT normal at 36, bilirubin is normal 0.5. Urine analysis is suspicious for infection,. Coronavirus not detected Chest x-ray: Left basilar infiltrate with small pleural effusion EKG showing AV dual paced rhythm In the emergency room patient was started on Unasyn. And currently continued with ceftriaxone Review of Systems CONSTITUTIONAL: no malaise, no fatigue. HEENT: No recent visual problems or hearing problems. Denied any sore throat. CARDIOVASCULAR: No orthopnea, PND, no palpitations, no syncope. PULMONARY: No shortness of breath, no cough, no hemoptysis. GASTROINTESTINAL: No diarrhea, no nausea, no vomiting, no abdominal pain. Normoactive bowel sounds. NEUROLOGICAL: No headaches, no weakness, no numbness. HEMATOLOGICAL: Denies any bleeding or petechiae. GENITOURINARY: Denies any burning micturition, frequency, or urgency. MUSCULOSKELETAL/RHEUMATOLOGICAL: Denies any joint pain, swelling, or any muscle pain. ENDOCRINE: Denies any polyuria or polydipsia. Past Medical History Past Medical History: Atrial Fibrillation, Cancer, CVA/TIA, GERD/Reflux, Hyperlipidemia, Prostate Disorder Additional Past Medical History / Comment(s): tia-2005, See Dr Aguirre H&P, arthritis, uses walker or cane, enlarged prostate, prostate CA 2014(radiation), shingles february 2019. History of Any Multi-Drug Resistant Organisms: None Reported Past Surgical History: Cholecystectomy, Hernia Repair, Orthopedic Surgery, Pacemaker Additional Past Surgical History / Comment(s): cervical fusion, lithrotripsy, Past Anesthesia/Blood Transfusion Reactions: No Reported Reaction Additional Past Anesthesia/Blood Transfusion Reaction / Comment(s): Pt has never recieved blood. Type of Cardiac Device: Permanent Pacemaker Device Placement Date:: 2013 Past Psychological History: No Psychological Hx Reported Additional Psychological History / Comment(s): Pt lives at home in his trailer. PT's almost 9 yrs ago. Pt uses a cane to ambulate. Pt still drives a car. Pt considers himself independent. 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 Did not related to experience. No international travel. Smoking Status: Former smoker Past Alcohol Use History: None Reported Past Drug Use History: None Reported - Past Family History Father Family Medical History: Cancer Additional Family Medical History / Comment(s): Father had brain tumors. He in his 80's. Mother Family Medical History: Osteoarthritis (OA) Additional Family Medical History / Comment(s): Mother had parkinsons . She in her late 80's. Medications and Allergies Home Medications Medication Instructions Recorded Confirmed Type Simvastatin [Zocor] 20 mg PO HS 08/02/14 08/03/20 History Warfarin [Coumadin] 5 mg PO SUMOWETHFR 08/02/14 08/03/20 History Vitamin E (Dl,Tocopheryl Acet) 400 unit PO DAILY 08/03/14 08/03/20 History [Vitamin E] Zinc 50 mg PO BID 08/03/14 08/03/20 History atenoloL [Tenormin] 50 mg PO BID 08/03/14 08/03/20 History Acetaminophen [Tylenol] 650 mg PO Q4H PRN 09/17/14 08/03/20 History Calcium Carbonate [Calcium] 600 mg PO BID 03/23/19 08/03/20 History Magnesium 200 mg PO BID 03/23/19 08/03/20 History lisinopriL [Zestril] 10 mg PO DAILY 03/23/19 08/03/20 History Warfarin [Coumadin] 2.5 mg PO TUSA 01/02/20 08/03/20 History Allergies Allergy/AdvReac Type Severity Reaction Status Date / Time No Known Allergies Allergy Verified 08/03/20 19:38 Physical Exam Vitals: Vital Signs Temp Pulse Pulse Resp BP BP Pulse Ox 08/04/20 08:00 98.1 F 60 22 105/57 96 08/04/20 02:00 98.0 F 72 18 108/68 94 L 08/04/20 00:00 18 08/03/20 21:05 97.8 F 60 83 18 101/59 125/70 99 08/03/20 19:40 100/58 08/03/20 18:05 101.5 F H 74 18 100/56 95 Intake and Output 08/03/20 08/04/20 08/04/20 22:59 06:59 14:59 Intake Total 1090 Balance 1090 Intake: IV 1090 Sodium Chloride 0.9% 1, 1040 000 ml @ 130 mls/hr IV . Q7H42M ALEJANDRO Rx#:[id number] cefTRIAXone 2 gm In 50 Sodium Chloride 0.9% 50 ml @ 100 mls/hr IVPB Q24HR ALEJANDRO Rx#:[id number] Other: Voiding Method Urinal Diaper # Voids 1 Weight 136.078 kg -GENERAL: The patient is alert and oriented x3, not in any acute distress. Obese HEENT: Pupils are round and equally reacting to light. EOMI. No scleral icterus. No conjunctival pallor. Normocephalic, atraumatic. No pharyngeal erythema. No thyromegaly. CARDIOVASCULAR: S1 and S2 present. No murmurs, rubs, or gallops. PULMONARY: Chest is clear to auscultation, no wheezing or crackles. ABDOMEN: Soft, nontender, nondistended, normoactive bowel sounds. No palpable organomegaly. MUSCULOSKELETAL: No joint swelling or deformity. EXTREMITIES: No cyanosis, clubbing, or pedal edema. NEUROLOGICAL: Gross neurological examination did not reveal any focal deficits. SKIN: No rashes. No petechiae Results CBC & Chem 7: 08/04/20 05:24 08/04/20 05:24 Labs: Abnormal Lab Results - Last 24 Hours (Table) 08/03/20 08/03/20 08/03/20 Range/Units 04:00 18:50 18:50 WBC 17.0 H (3.8-10.6) k/uL RBC (4.30-5.90) m/uL Hgb (13.0-17.5) gm/dL Hct (39.0-53.0) % Neutrophils # 16.0 H (1.3-7.7) k/uL Lymphocytes # 0.3 L (1.0-4.8) k/uL PT 19.1 H (9.0-12.0) sec INR 1.9 H (<1.2) Chloride (98-107) mmol/L Carbon Dioxide (22-30) mmol/L BUN (9-20) mg/dL Creatinine (0.66-1.25) mg/dL Est GFR (CKD-EPI)AfAm (60.0-200.0) Est GFR (CKD-EPI)NonAf (60.0-200.0) Glucose (74-99) mg/dL Plasma Lactic Acid Yasir (0.7-2.0) mmol/L Calcium (8.7-10.3) mg/dL AST (14-35) U/L C-Reactive Protein (<10.0) mg/L Total Protein (6.3-8.2) g/dL Albumin (3.5-5.0) g/dL Urine Protein 1+ H (Negative) Urine Ketones Trace H (Negative) Urine Blood Moderate H (Negative) Ur Leukocyte Esterase Large H (Negative) Urine RBC 86 H (0-5) /hpf Urine WBC >182 H (0-5) /hpf Urine WBC Clumps Many H (None) /hpf 08/03/20 08/03/20 08/03/20 Range/Units 18:50 18:50 21:33 WBC (3.8-10.6) k/uL RBC (4.30-5.90) m/uL Hgb (13.0-17.5) gm/dL Hct (39.0-53.0) % Neutrophils # (1.3-7.7) k/uL Lymphocytes # (1.0-4.8) k/uL PT (9.0-12.0) sec INR (<1.2) Chloride 111 H (98-107) mmol/L Carbon Dioxide 21 L (22-30) mmol/L BUN 21 H (9-20) mg/dL Creatinine 1.50 H (0.66-1.25) mg/dL Est GFR (CKD-EPI)AfAm (60.0-200.0) Est GFR (CKD-EPI)NonAf (60.0-200.0) Glucose 121 H (74-99) mg/dL Plasma Lactic Acid Yasir 2.5 H* 2.7 H* (0.7-2.0) mmol/L Calcium (8.7-10.3) mg/dL AST (14-35) U/L C-Reactive Protein 18.1 H (<10.0) mg/L Total Protein 6.0 L (6.3-8.2) g/dL Albumin 3.3 L (3.5-5.0) g/dL Urine Protein (Negative) Urine Ketones (Negative) Urine Blood (Negative) Ur Leukocyte Esterase (Negative) Urine RBC (0-5) /hpf Urine WBC (0-5) /hpf Urine WBC Clumps (None) /hpf 08/04/20 08/04/20 08/04/20 Range/Units 00:45 05:24 05:24 WBC 16.0 H (3.8-10.6) k/uL RBC 4.16 L (4.30-5.90) m/uL Hgb 12.5 L (13.0-17.5) gm/dL Hct 37.8 L (39.0-53.0) % Neutrophils # 14.5 H (1.3-7.7) k/uL Lymphocytes # 0.4 L (1.0-4.8) k/uL PT (9.0-12.0) sec INR (<1.2) Chloride 113 H (98-107) mmol/L Carbon Dioxide (22-30) mmol/L BUN (9-20) mg/dL Creatinine 1.8 H (0.66-1.25) mg/dL Est GFR (CKD-EPI)AfAm 40.6 L (60.0-200.0) Est GFR (CKD-EPI)NonAf 35.0 L (60.0-200.0) Glucose (74-99) mg/dL Plasma Lactic Acid Yasir 2.7 H* (0.7-2.0) mmol/L Calcium 8.1 L (8.7-10.3) mg/dL AST 90 H (14-35) U/L C-Reactive Protein (<10.0) mg/L Total Protein 5.3 L (6.3-8.2) g/dL Albumin 3.70 L (3.5-5.0) g/dL Urine Protein (Negative) Urine Ketones (Negative) Urine Blood (Negative) Ur Leukocyte Esterase (Negative) Urine RBC (0-5) /hpf Urine WBC (0-5) /hpf Urine WBC Clumps (None) /hpf Microbiology - Last 24 Hours (Table) 08/03/20 04:00 Urine Culture - Preliminary Urine,Catheterized Assessment and Plan Assessment: acute urinary tract infection Sepsis with leukocytosis and fever, SIR is criteria History of GI bleed likely diverticular vs internal Hemorrhoids.in nature. Mild acute kidney injury on the top of chronic kidney disease, stage III Chronic atrial fibrillation status post permanent pacemaker placement current on anticoagulation with Coumadin Hyperlipidemia BPH History of prostate cancer in 2015 status post postradiation GERD Previous history of smoking Obesity with BMI of 40 Plan: This is a pleasant 79 years old male who presents because of UTI with sepsis. Infectious disease input is appreciated, continue with antibiotics ceftriaxone. Continue gentle hydration Labs and medication were reviewed.. Continue same treatment. Continue with symptomatic treatment. Resume home medication. Monitor lytes and vitals. DVT and GI prophylaxis. Further recommendations depends on the clinical course of the patient DVT prophylaxis: Coumadine GI Prophylaxis: Pepcid PT/OT: Pending Prognosis is guarded
[2020-08-04] MEDS ORDERED: WARFARIN 5 MG TAB PO SCH (18:00)
--- NOTE | 2020-08-04 20:14 | CONS ---
CONSULTATION DATE OF SERVICE: 08/04/2020 REASON FOR CONSULTATION: Fever. HISTORY OF PRESENT ILLNESS: The patient is a 79-year-old male with a past medical history significant for atrial fibrillation, coronary artery disease, history of prostate disorder. The patient was brought into the ER last evening for evaluation of generalized weakness and fever. The patient's symptoms started the day he presented to the hospital. Apparently the patient woke up and was feeling very weak, tired and did not have any energy. The patient did have normally urinary incontinence; with his symptoms it has been getting worse. He is complaining of some burning of urine as well, but no suprapubic or flank pain or difficulty with urination. The patient denies having any chest pain or shortness of breath or cough. Did have mild postnasal drip, though. No nausea, no vomiting. With these symptoms, the patient was evaluated by the ER physician. On arrival in the ER, the patient did have a fever of 101.5 degrees Fahrenheit. The patient had been saturating 95% on room air, and no significant tachycardia was noticed, either. The patient did have a white count of 17,000. Repeat is 16. Creatinine is slightly up at 1.8. Lactic acid was elevated. AST mildly elevated. Urine is positive with large leukocyte esterase, more than 182 WBCs. Hurtado PCR came back negative. The patient did have a chest x-ray reported as left basilar infiltrate with small effusion. The patient has been started on Rocephin and has been admitted to the hospital. Infectious Disease was consulted for further management. REVIEW OF SYSTEMS: Positive points have been mentioned in the HPI. Rest of the systems are negative. PAST MEDICAL HISTORY: Atrial fibrillation, CVA, TIA, gastroesophageal reflux disease, hypertension, hyperlipidemia, history of prostate cancer, status post radiation. PAST SURGICAL HISTORY: Cholecystectomy, hernia repair, pacemaker placement, cervical fusion, lithotripsy. SOCIAL HISTORY: Remote history of smoking. No drinking or drug use. FAMILY HISTORY: Father with history of brain tumor. Mother with history of Parkinson's disease. ALLERGIES: NO KNOWN DRUG ALLERGIES. MEDICATIONS: The patient is currently on Tylenol, Tenormin, Rocephin 2 grams daily. He is on Pepcid, Zestril, Narcan, Coumadin and zinc sulfate. PHYSICAL EXAMINATION: Blood pressure 120/70 with a pulse of 72, temperature 98.1. T-max is 101. He is 95% on 4 L nasal cannula. General description is an elderly male up in the chair in no distress. No tachypnea or accessory muscle of respiration use. HEENT: Examination shows no pallor or scleral icterus. Oral mucous membrane is dry. No pharyngeal erythema or thrush. NECK: Trachea is central. No thyromegaly. LUNGS: Unlabored breathing with decreased breath sounds at the bases. No wheeze. HEART: S1, S2. Regular rate and rhythm. ABDOMEN: Soft. No tenderness. No guarding or rigidity. EXTREMITIES: No edema of the feet. SKIN EXAMINATION: No rash or mass palpable. Neurologically the patient is awake and alert. Mood and affect normal. LABS: Hemoglobin is 12.5, white count 16,000, BUN of 27, creatinine 1.8. Lactic acid was elevated. Liver enzymes mildly elevated. DIAGNOSTIC IMPRESSION AND PLAN: Patient presented to hospital with sepsis in this patient who did have a fever, elevated white count, elevated lactic acid. Likely source is UTI in this patient who does have a history of prostate cancer and likely concerning for urine outflow obstruction, as the patient's creatinine is elevated as well. Clinically not behaving as pneumonia, though. PLAN: 1. Discontinue Unasyn. 2. Start the patient on Rocephin 2 grams daily. 3. We will obtain . 4. Will follow his clinical condition and culture to further adjust medication if needed. Thank you for this consultation. Will follow this patient along with you. MMODL / IJN: [id number] /
[2020-08-04] MEDS: ZINC SULFATE 220 MG CAP PO SCH (20:49)
[2020-08-04] MEDS: atenoloL 50 MG TAB PO SCH (20:50)
[2020-08-04] MEDS: FAMOTIDINE 20 MG/2 ML VIAL IV SCH (20:50)
[2020-08-04] MEDS ORDERED: HEPARIN SODIUM,PORCINE 5,000 UNIT/ML 1 ML VIAL SQ SCH (21:00)
[2020-08-04] MEDS ORDERED: FUROSEMIDE 10 MG/ML 2 ML VIAL IV STA (21:17)
[2020-08-05] MEDS: ACETAMINOPHEN TAB 325 MG TAB PO PRN (01:08)
[2020-08-05 06:49] LABS: Basophils % (A) 0 %; Eosinophils # (A) 0.1 k/uL (0-0.7); Eosinophils % (A) 1 %; Lymphocytes # (A) 0.8 k/uL (1.0-4.8); Lymphocytes % (A) 7 %; MCH 30.3 pg (25.0-35.0); MCHC 33.3 g/dL (31.0-37.0); Mean Platelet Volume 7.1; Monocytes # (A) 0.9 k/uL (0-1.0); Monocytes % (A) 8 %; Neutrophils % (A) 82 %; Platelet Count 204 k/uL (150-450); RBC 4.29 m/uL (4.30-5.90); RDW 14.4 % (11.5-15.5)
[2020-08-05] MEDS ORDERED: FUROSEMIDE 10 MG/ML 2 ML VIAL IV STA (08:01)
[2020-08-05] MEDS: ZINC SULFATE 220 MG CAP PO SCH ×2 (08:26→19:42)
[2020-08-05] MEDS: atenoloL 50 MG TAB PO SCH ×2 (08:26→19:42)
[2020-08-05] MEDS: lisinopriL 10 MG TAB PO SCH (08:26)
[2020-08-05] MEDS: FAMOTIDINE 20 MG/2 ML VIAL IV SCH (08:30)
--- NOTE | 2020-08-05 09:23 | US ---
EXAMINATION TYPE: US kidneys/renal and bladder DATE OF EXAM: 08/05/2020 COMPARISON: US CLINICAL HISTORY: uti and bacteremia. EXAM MEASUREMENTS: Right Kidney: 13.9 x 7.5 x 6.8 cm Left Kidney: 12.8 x 6.1 x 6.8 cm Technically difficult study performed portably. Right Kidney: lobular contour, no hydro or mass seen. Left Kidney: several shadowing stones noted. Kidney hard to visualize, echogenic and thinned cortex. Bladder: wnl Bilateral Jets seen: No No hydronephrosis bilaterally, cortical medullary differentiation is maintained on the right, left ki dney shows thinned cortex as on previous exam. IMPRESSION: Chronic kidney disease is suspected. Difficult to exclude nephrolithiasis.
[2020-08-05 09:49] LABS: African American GFR (CKD) 50.6 (60.0-200.0); Anion Gap 8.8 mmol/L (4.00-12.00); BUN/Creat Ratio 18.67 Ratio (12.00-20.00); Calcium 8.2 mg/dL (8.7-10.3); Carbon Dioxide 20.2 mmol/L (21.6-31.8); Non-African American GFR(CKD) 43.7 (60.0-200.0); Potassium 4.4 mmol/L (3.5-5.5)
[2020-08-05 10:00] LABS: INR 1.3 (0.90-1.11); Prothrombin Time 13.8 sec (9.9-11.9)
--- NOTE | 2020-08-05 11:37 | P.PN ---
Subjective This is a pleasant 79 years old male with past medical history of chronic atrial fibrillation, hyperlipidemia, BPH, history of prostate cancer in 2015 status post radiation, GERD He was recently hospitalized in this hospital about 6 months ago for acute GI bleed, likely diverticular versus internal hemorrhoids, is a patient of Dr. 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 He presents because of fever and shivering/chills of 2 days' duration. Patient complaining of from dark urine, however he denies dysuria. Patient could not tell about the frequency and urgency as he uses that for most of the time. He denies new back pain. He denies chest pain or coughing or dyspnea. No chest pain. No abdominal pain. No diarrhea. No headache or weakness or numbness. No rash He denies smoking, alcohol or illicit drugs Vitas looks stable, patient had fever of 101.5 on admission. Labs showed leukocytosis of 17-16k, hemoglobin 12.5, platelet normal. INR is 1.9, creatinine 1.8 with baseline 1.3-1.5. High lactic acid 2.7 came back to normal at 1.7. AST slightly elevated at 90, ALT normal at 36, bilirubin is normal 0.5. Urine analysis is suspicious for infection,. Coronavirus not detected Chest x-ray: Left basilar infiltrate with small pleural effusion EKG showing AV dual paced rhythm In the emergency room patient was started on Unasyn. And currently continued with ceftriaxone 08/05/2020 Patient feels generally weak however he is fully awake and oriented, no urinary symptoms, no diarrhea. No cardiac symptoms like no chest pain. No coughing or shortness of breath. However patient was noticed to be tachypneic. He has bowel movement this morning which looks regular History the patient received no muscle and at 1:30 milliliters per hour and cleared to 50 mL/h before it was stopped in the middle of night. Because of this we going to give him 1 dose of Lasix 20 mg IV 1. Vitals are stable. WBC came down to 11 K. Creatinine back to normal REFERENCE range at 1.5, patient is known to have chronic kidney disease. Lactic acid is back to normal as well. Urinal blood culture are pending. INR is 1.3. We are going to give extra dose of Coumadin tonight Ultrasound of the kidney showed chronic kidney disease difficult to exclude nephrolithiasis Patient remains on ceftriaxone Objective - Vital Signs Vital signs: Vital Signs Temp 98.5 F 08/05/20 08:00 Pulse 60 08/05/20 08:00 Resp 20 08/05/20 08:30 BP 129/67 08/05/20 08:00 Pulse Ox 93 L 08/05/20 08:00 Intake & Output 08/04/20 08/05/20 08/05/20 18:59 06:59 18:59 Intake Total 1090 Output Total 1 Balance 1090 -1 Intake: IV 1090 Sodium Chloride 0.9% 1, 1040 000 ml @ 50 mls/hr IV . Q20H ALEJANDRO Rx#:[id number] cefTRIAXone 2 gm In 50 Sodium Chloride 0.9% 50 ml @ 100 mls/hr IVPB Q24HR ALEJANDRO Rx#:[id number] Output: Post Void Residual 1 Other: Voiding Method Urinal Urinal Diaper Diaper # Voids 3 1 # Bowel Movements 1 1 - Exam GENERAL: The patient is alert and oriented x3, not in any acute distress. Well developed, well nourished. HEENT: Pupils are round and equally reacting to light. EOMI. No scleral icterus. No conjunctival pallor. Normocephalic, atraumatic. No pharyngeal erythema. No thyromegaly. CARDIOVASCULAR: S1 and S2 present. No murmurs, rubs, or gallops. PULMONARY: Chest is clear to auscultation, no wheezing or crackles. ABDOMEN: Soft, nontender, nondistended, normoactive bowel sounds. No palpable organomegaly. MUSCULOSKELETAL: No joint swelling or deformity. EXTREMITIES: No cyanosis, clubbing, or pedal edema. NEUROLOGICAL: Gross neurological examination did not reveal any focal deficits. SKIN: No rashes. no petechiae. - Labs CBC & Chem 7: 08/05/20 06:30 08/05/20 06:30 Labs: Abnormal Lab Results - Last 24 Hours (Table) 08/05/20 08/05/20 08/05/20 Range/Units 06:30 06:30 06:30 WBC 11.0 H (3.8-10.6) k/uL RBC 4.29 L (4.30-5.90) m/uL Neutrophils # 9.0 H (1.3-7.7) k/uL Lymphocytes # 0.8 L (1.0-4.8) k/uL PT 13.8 H (9.9-11.9) sec INR 1.30 H (0.90-1.11) Carbon Dioxide 20.2 L (21.6-31.8) mmol/L BUN 28.0 H (9.0-27.0) mg/dL Est GFR (CKD-EPI)AfAm 50.6 L (60.0-200.0) Est GFR (CKD-EPI)NonAf 43.7 L (60.0-200.0) Calcium 8.2 L (8.7-10.3) mg/dL Microbiology - Last 24 Hours (Table) 08/03/20 19:10 Blood Culture - Preliminary Blood No Growth after 24 hours 08/03/20 18:50 Blood Culture - Preliminary Blood No Growth after 24 hours 08/03/20 04:00 Urine Culture - Preliminary Urine,Catheterized Assessment and Plan Assessment: acute urinary tract infection Sepsis with leukocytosis and fever, SIR is criteria History of GI bleed likely diverticular vs internal Hemorrhoids.in nature. Mild acute kidney injury on the top of chronic kidney disease, stage III Chronic atrial fibrillation status post permanent pacemaker placement current on anticoagulation with Coumadin Hyperlipidemia BPH History of prostate cancer in 2015 status post postradiation GERD Previous history of smoking Obesity with BMI of 40 Plan: This is a pleasant 79 years old male who presents because of UTI with sepsis. Infectious disease input is appreciated, continue with antibiotics ceftriaxone. Continue gentle hydration Labs and medication were reviewed.. Continue same treatment. Continue with symptomatic treatment. Resume home medication. Monitor lytes and vitals. DVT and GI prophylaxis. Further recommendations depends on the clinical course of the patient DVT prophylaxis: Coumadine GI Prophylaxis: Pepcid PT/OT: Pending Prognosis is guarded
[2020-08-05] MEDS ORDERED: WARFARIN 3 MG TAB PO ONE (18:00)
--- NOTE | 2020-08-05 22:31 | PN ---
PROGRESS NOTE DATE OF SERVICE: 08/05/2020 REASON FOR FOLLOWUP: Urinary tract infection and a question of pneumonia. INTERVAL HISTORY: The patient is currently afebrile, has been breathing comfortably. The patient denies having any chest pain or shortness of breath. Minimal cough. No nausea, no vomiting, no abdominal pain or diarrhea. PHYSICAL EXAMINATION: Blood pressure is 147/81 with a pulse of 66, temperature 97.8. He is 97% on 4 L nasal cannula. General description is an elderly male up in the chair in no distress. RESPIRATORY SYSTEM: Unlabored breathing with decreased intensity of breath sounds. No wheeze. HEART: S1, S2. Regular rate and rhythm. HEART: S1, S2. Regular rate and rhythm. ABDOMEN: Soft. No tenderness. LABS: Hemoglobin is 13, white count down to 11.0. BUN of 28, creatinine is 1.5. DIAGNOSTIC IMPRESSION AND PLAN: Patient admitted to hospital with weakness, fever, elevated white count. Source is likely UTI plus/minus concern for possible pneumonia. Patient is clinically responding to Rocephin; to continue, as the white count has improved. Culture has been negative so far. Continue with supportive care. MMODL / IJN: [id number] /
[2020-08-06 06:27] LABS: Basophils % (A) 0 %; Eosinophils # (A) 0.1 k/uL (0-0.7); Eosinophils % (A) 1 %; HCT 37.1 % (39.0-53.0); Lymphocytes # (A) 0.6 k/uL (1.0-4.8); Lymphocytes % (A) 8 %; MCH 29.6 pg (25.0-35.0); MCHC 32.4 g/dL (31.0-37.0); MCV 91.5 fL (80.0-100.0); Mean Platelet Volume 7.1; Monocytes # (A) 0.7 k/uL (0-1.0); Monocytes % (A) 9 %; Neutrophils # (A) 6.1 k/uL (1.3-7.7); Neutrophils % (A) 79 %; Platelet Count 174 k/uL (150-450); RBC 4.06 m/uL (4.30-5.90); RDW 14.2 % (11.5-15.5); WBC 7.7 k/uL (3.8-10.6)
[2020-08-06] MEDS: ZINC SULFATE 220 MG CAP PO SCH ×2 (07:27→20:01)
[2020-08-06] MEDS: lisinopriL 10 MG TAB PO SCH (07:28)
[2020-08-06] MEDS: atenoloL 50 MG TAB PO SCH ×2 (07:28→20:01)
[2020-08-06] MEDS ORDERED: FAMOTIDINE 20 MG/2 ML VIAL IV SCH (09:00)
[2020-08-06 09:22] LABS: INR 1.18 (0.90-1.11); Prothrombin Time 12.6 sec (9.9-11.9)
[2020-08-06 10:21] LABS: Anion Gap 8.7 mmol/L (4.00-12.00); BUN/Creat Ratio 21.43 Ratio (12.00-20.00); Calcium 8.5 mg/dL (8.7-10.3); Carbon Dioxide 22.3 mmol/L (21.6-31.8); Non-African American GFR(CKD) 47.4 (60.0-200.0); Potassium 4.3 mmol/L (3.5-5.5)
--- NOTE | 2020-08-06 11:11 | P.PN ---
Subjective This is a pleasant 79 years old male with past medical history of chronic atrial fibrillation, hyperlipidemia, BPH, history of prostate cancer in 2015 status post radiation, GERD He was recently hospitalized in this hospital about 6 months ago for acute GI bleed, likely diverticular versus internal hemorrhoids, is a patient of Dr. 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 He presents because of fever and shivering/chills of 2 days' duration. Patient complaining of from dark urine, however he denies dysuria. Patient could not tell about the frequency and urgency as he uses that for most of the time. He denies new back pain. He denies chest pain or coughing or dyspnea. No chest pain. No abdominal pain. No diarrhea. No headache or weakness or numbness. No rash He denies smoking, alcohol or illicit drugs Vitas looks stable, patient had fever of 101.5 on admission. Labs showed leukocytosis of 17-16k, hemoglobin 12.5, platelet normal. INR is 1.9, creatinine 1.8 with baseline 1.3-1.5. High lactic acid 2.7 came back to normal at 1.7. AST slightly elevated at 90, ALT normal at 36, bilirubin is normal 0.5. Urine analysis is suspicious for infection,. Coronavirus not detected Chest x-ray: Left basilar infiltrate with small pleural effusion EKG showing AV dual paced rhythm In the emergency room patient was started on Unasyn. And currently continued with ceftriaxone 08/05/2020 Patient feels generally weak however he is fully awake and oriented, no urinary symptoms, no diarrhea. No cardiac symptoms like no chest pain. No coughing or shortness of breath. However patient was noticed to be tachypneic. He has bowel movement this morning which looks regular History the patient received no muscle and at 1:30 milliliters per hour and cleared to 50 mL/h before it was stopped in the middle of night. Because of this we going to give him 1 dose of Lasix 20 mg IV 1. Vitals are stable. WBC came down to 11 K. Creatinine back to normal REFERENCE range at 1.5, patient is known to have chronic kidney disease. Lactic acid is back to normal as well. Urinal blood culture are pending. INR is 1.3. We are going to give extra dose of Coumadin tonight Ultrasound of the kidney showed chronic kidney disease difficult to exclude nephrolithiasis Patient remains on ceftriaxone 08/06/2020 Today patient is feeling stronger but not completely normal, he was sitting at the bedside in the chair not in distress, not in rate, breathing quietly, no other specific complaint, other than had 2 loose bowel movement overnight but no abdominal pain or nausea vomiting. He tolerates diet well. Distal on ceftriaxone for his UTI, urine culture showing no growth area WBC is back to normal. He received 6 mg of Coumadin last night and his INR today down to 1.1. Creatinine is also improved to 1.4 today, however his been always more than 1.5 since 2015. Patient is on Coumadin pharmacy to dose Bladder scan showing very little residual urine, about 5 mL per staff. Renal ultrasound showed left kidney stone. We will check to see if his insurance covers Eliquis\ Physical therapy recommended home health. Objective - Vital Signs Vital signs: Vital Signs Temp 98.3 F 08/06/20 00:52 Pulse 60 08/06/20 00:52 Resp 16 08/06/20 07:28 BP 109/64 08/06/20 00:52 Pulse Ox 96 08/06/20 00:52 Intake & Output 08/05/20 08/06/20 08/06/20 18:59 06:59 18:59 Intake Total 200 Balance 200 Intake: Oral 200 Other: Voiding Method Urinal Diaper # Voids 2 1 - Exam GENERAL: The patient is alert and oriented x3, not in any acute distress. Well developed, well nourished. HEENT: Pupils are round and equally reacting to light. EOMI. No scleral icterus. No conjunctival pallor. Normocephalic, atraumatic. No pharyngeal erythema. No thyromegaly. CARDIOVASCULAR: S1 and S2 present. No murmurs, rubs, or gallops. PULMONARY: Chest is clear to auscultation, no wheezing or crackles. ABDOMEN: Soft, nontender, nondistended, normoactive bowel sounds. No palpable organomegaly. MUSCULOSKELETAL: No joint swelling or deformity. EXTREMITIES: No cyanosis, clubbing, or pedal edema. NEUROLOGICAL: Gross neurological examination did not reveal any focal deficits. SKIN: No rashes. no petechiae. - Labs CBC & Chem 7: 08/06/20 05:55 08/06/20 05:55 Labs: Abnormal Lab Results - Last 24 Hours (Table) 08/06/20 08/06/20 08/06/20 Range/Units 05:55 05:55 05:55 RBC 4.06 L (4.30-5.90) m/uL Hgb 12.0 L (13.0-17.5) gm/dL Hct 37.1 L (39.0-53.0) % Lymphocytes # 0.6 L (1.0-4.8) k/uL PT 12.6 H (9.9-11.9) sec INR 1.18 H (0.90-1.11) BUN 30.0 H (9.0-27.0) mg/dL Est GFR (CKD-EPI)AfAm 55.0 L (60.0-200.0) Est GFR (CKD-EPI)NonAf 47.4 L (60.0-200.0) BUN/Creatinine Ratio 21.43 H (12.00-20.00) Ratio Calcium 8.5 L (8.7-10.3) mg/dL Microbiology - Last 24 Hours (Table) 08/03/20 19:10 Blood Culture - Preliminary Blood No Growth after 48 hours 08/03/20 18:50 Blood Culture - Preliminary Blood No Growth after 48 hours 08/03/20 04:00 Urine Culture - Final Urine,Catheterized Assessment and Plan Assessment: acute urinary tract infection, improvement Sepsis with leukocytosis and fever, SIR is criteria , improving Left nephrolithiasis History of GI bleed likely diverticular vs internal Hemorrhoids.in nature. Mild acute kidney injury on the top of chronic kidney disease, stage III Chronic atrial fibrillation status post permanent pacemaker placement current on anticoagulation with Coumadin Hyperlipidemia BPH History of prostate cancer in 2015 status post postradiation GERD Previous history of smoking Obesity with BMI of 40 Plan: This is a pleasant 79 years old male who presents because of UTI with sepsis. Infectious disease input is appreciated, continue with antibiotics ceftriaxone. Continue gentle hydration Labs and medication were reviewed.. Continue same treatment. Continue with symptomatic treatment. Resume home medication. Monitor lytes and vitals. DVT and GI prophylaxis. Further recommendations depends on the clinical course of the patient DVT prophylaxis: Coumadine GI Prophylaxis: Pepcid PT/OT: Pending Prognosis is guarded
--- NOTE | 2020-08-06 16:40 | PN ---
PROGRESS NOTE DATE OF SERVICE: 08/06/2020 REASON FOR FOLLOWUP: UTI and question of pneumonia. INTERVAL HISTORY: The patient is currently afebrile. Patient is feeling better. Breathing comfortably. Patient denies having any chest pain or shortness of breath. Minimal cough. No abdominal pain. No diarrhea. PHYSICAL EXAMINATION: Blood pressure is 107/62 with a pulse of 72, temperature 97.6. He is 97% on 2 L nasal cannula. General description is an elderly male lying in bed in no distress. Respiratory system: Unlabored breathing. Clear to auscultation anteriorly. Heart S1, S2. Regular rate and rhythm. Abdomen soft, no tenderness. LABS: Hemoglobin is 12.7, white count 7.7, BUN of 30, creatinine 1.4. DIAGNOSTIC IMPRESSION AND PLAN: Patient admitted to the hospital with fever and leukocytosis, likely urinary tract infection, possible component of pneumonia in this patient who seems to have shown overall clinical improvement. The patient's white count has normalized. We will request for repeat x-ray in the morning. For now, continue with Rocephin with the plan to finish therapy with oral antibiotics. Continue supportive care. MMODL / IJN: [id number] /
[2020-08-06] MEDS ORDERED: WARFARIN 2.5 MG TAB PO SCH (18:00)
[2020-08-06] MEDS ORDERED: WARFARIN 2 MG TAB PO ONE ×2 (18:00→21:15)
[2020-08-06] MEDS ORDERED: WARFARIN 3 MG TAB PO ONE (18:00)
[2020-08-07 06:41] LABS: Basophils % (A) 0 %; Eosinophils # (A) 0.1 k/uL (0-0.7); Eosinophils % (A) 2 %; HCT 39.3 % (39.0-53.0); HGB 12.3 gm/dL (13.0-17.5); Lymphocytes # (A) 0.7 k/uL (1.0-4.8); Lymphocytes % (A) 12 %; MCH 28.5 pg (25.0-35.0); MCHC 31.4 g/dL (31.0-37.0); MCV 90.8 fL (80.0-100.0); Mean Platelet Volume 7.6; Monocytes # (A) 0.4 k/uL (0-1.0); Monocytes % (A) 7 %; Neutrophils # (A) 4.3 k/uL (1.3-7.7); Neutrophils % (A) 76 %; Platelet Count 237 k/uL (150-450); RBC 4.33 m/uL (4.30-5.90); RDW 14.4 % (11.5-15.5); WBC 5.7 k/uL (3.8-10.6)
[2020-08-07] MEDS: atenoloL 50 MG TAB PO SCH ×2 (07:37→19:28)
[2020-08-07] MEDS: lisinopriL 10 MG TAB PO SCH (07:37)
[2020-08-07] MEDS: ZINC SULFATE 220 MG CAP PO SCH ×2 (07:37→19:28)
[2020-08-07] MEDS: FAMOTIDINE 20 MG TAB PO SCH (07:38)
--- NOTE | 2020-08-07 08:55 | XR ---
EXAMINATION TYPE: XR chest 1V DATE OF EXAM: 08/07/2020 COMPARISON: Chest x-ray 08/03/2020, CT 03/23/2019 HISTORY: Pneumonia TECHNIQUE: Single frontal view of the chest is obtained. FINDINGS: Findings are similar to prior exam. Patchy density questioned at the left lung base. Gener ators present in left pectoral region, leads coursing towards the heart is not well seen. Postop madden ge noted to the cervical spine. IMPRESSION: Correlate for possible left lower lobe pneumonia, difficult to exclude effusion, there i s prominent epicardial fat pad, lung volumes are low and the patient is rotated. Follow-up PA and lat eral chest x-ray suggested.
[2020-08-07 09:33] LABS: African American GFR (CKD) 50.6 (60.0-200.0); BUN/Creat Ratio 18.67 Ratio (12.00-20.00); Calcium 8.6 mg/dL (8.7-10.3); Non-African American GFR(CKD) 43.7 (60.0-200.0); Potassium 4.5 mmol/L (3.5-5.5)
[2020-08-07 09:43] LABS: INR 1.24 (0.90-1.11); Prothrombin Time 13.2 sec (9.9-11.9)
--- NOTE | 2020-08-07 11:11 | P.PN ---
Subjective This is a pleasant 79 years old male with past medical history of chronic atrial fibrillation, hyperlipidemia, BPH, history of prostate cancer in 2015 status post radiation, GERD He was recently hospitalized in this hospital about 6 months ago for acute GI bleed, likely diverticular versus internal hemorrhoids, is a patient of Dr. 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 He presents because of fever and shivering/chills of 2 days' duration. Patient complaining of from dark urine, however he denies dysuria. Patient could not tell about the frequency and urgency as he uses that for most of the time. He denies new back pain. He denies chest pain or coughing or dyspnea. No chest pain. No abdominal pain. No diarrhea. No headache or weakness or numbness. No rash He denies smoking, alcohol or illicit drugs Vitas looks stable, patient had fever of 101.5 on admission. Labs showed leukocytosis of 17-16k, hemoglobin 12.5, platelet normal. INR is 1.9, creatinine 1.8 with baseline 1.3-1.5. High lactic acid 2.7 came back to normal at 1.7. AST slightly elevated at 90, ALT normal at 36, bilirubin is normal 0.5. Urine analysis is suspicious for infection,. Coronavirus not detected Chest x-ray: Left basilar infiltrate with small pleural effusion EKG showing AV dual paced rhythm In the emergency room patient was started on Unasyn. And currently continued with ceftriaxone 08/05/2020 Patient feels generally weak however he is fully awake and oriented, no urinary symptoms, no diarrhea. No cardiac symptoms like no chest pain. No coughing or shortness of breath. However patient was noticed to be tachypneic. He has bowel movement this morning which looks regular History the patient received no muscle and at 1:30 milliliters per hour and cleared to 50 mL/h before it was stopped in the middle of night. Because of this we going to give him 1 dose of Lasix 20 mg IV 1. Vitals are stable. WBC came down to 11 K. Creatinine back to normal REFERENCE range at 1.5, patient is known to have chronic kidney disease. Lactic acid is back to normal as well. Urinal blood culture are pending. INR is 1.3. We are going to give extra dose of Coumadin tonight Ultrasound of the kidney showed chronic kidney disease difficult to exclude nephrolithiasis Patient remains on ceftriaxone 08/06/2020 Today patient is feeling stronger but not completely normal, he was sitting at the bedside in the chair not in distress, not in rate, breathing quietly, no other specific complaint, other than had 2 loose bowel movement overnight but no abdominal pain or nausea vomiting. He tolerates diet well. Distal on ceftriaxone for his UTI, urine culture showing no growth area WBC is back to normal. He received 6 mg of Coumadin last night and his INR today down to 1.1. Creatinine is also improved to 1.4 today, however his been always more than 1.5 since 2015. Patient is on Coumadin pharmacy to dose Bladder scan showing very little residual urine, about 5 mL per staff. Renal ultrasound showed left kidney stone. We will check to see if his insurance covers Eliquis\ Physical therapy recommended home health. 08/07/2020 Patient improved gradually regarding his strength, no significant urinary symptoms. He is afebrile. WBC is improving 5.7K. INR went up from 1.1 to 1.24 after 10 mg of Coumadin last night. Chest x-ray showed left lower PNEUMONIA. Patient remains on ceftriaxone Objective - Vital Signs Vital signs: Vital Signs Temp 98.6 F 08/07/20 07:39 Pulse 60 08/07/20 07:39 Resp 18 08/07/20 07:39 BP 122/71 08/07/20 07:39 Pulse Ox 94 L 08/07/20 07:39 Intake & Output 08/06/20 08/07/20 08/07/20 18:59 06:59 18:59 Intake Total 540 Balance 540 Intake: Oral 540 Other: Voiding Method Urinal Urinal Diaper Diaper # Voids 3 2 # Bowel Movements 2 - Exam GENERAL: The patient is alert and oriented x3, not in any acute distress. Well developed, well nourished. HEENT: Pupils are round and equally reacting to light. EOMI. No scleral icterus. No conjunctival pallor. Normocephalic, atraumatic. No pharyngeal erythema. No thyromegaly. CARDIOVASCULAR: S1 and S2 present. No murmurs, rubs, or gallops. PULMONARY: Chest is clear to auscultation, no wheezing or crackles. ABDOMEN: Soft, nontender, nondistended, normoactive bowel sounds. No palpable organomegaly. MUSCULOSKELETAL: No joint swelling or deformity. EXTREMITIES: No cyanosis, clubbing, or pedal edema. NEUROLOGICAL: Gross neurological examination did not reveal any focal deficits. SKIN: No rashes. no petechiae. - Labs CBC & Chem 7: 08/07/20 05:23 08/07/20 05:23 Labs: Abnormal Lab Results - Last 24 Hours (Table) 08/07/20 08/07/20 08/07/20 Range/Units 05:23 05:23 05:23 Hgb 12.3 L (13.0-17.5) gm/dL Lymphocytes # 0.7 L (1.0-4.8) k/uL PT 13.2 H (9.9-11.9) sec INR 1.24 H (0.90-1.11) BUN 28.0 H (9.0-27.0) mg/dL Est GFR (CKD-EPI)AfAm 50.6 L (60.0-200.0) Est GFR (CKD-EPI)NonAf 43.7 L (60.0-200.0) Calcium 8.6 L (8.7-10.3) mg/dL Microbiology - Last 24 Hours (Table) 08/03/20 19:10 Blood Culture - Preliminary Blood No Growth after 72 hours 08/03/20 18:50 Blood Culture - Preliminary Blood No Growth after 72 hours Assessment and Plan Assessment: Acute pneumonia rather than UTI, community acquired left lower lobe pneumonia acute urinary tract infection, improvement Sepsis with leukocytosis and fever, SIR is criteria , improving Left nephrolithiasis History of GI bleed likely diverticular vs internal Hemorrhoids.in nature. Mild acute kidney injury on the top of chronic kidney disease, stage III Chronic atrial fibrillation status post permanent pacemaker placement current on anticoagulation with Coumadin Hyperlipidemia BPH History of prostate cancer in 2015 status post postradiation GERD Previous history of smoking Obesity with BMI of 40 Plan: This is a pleasant 79 years old male who presents because of UTI with sepsis. Infectious disease input is appreciated, continue with antibiotics ceftriaxone. Continue gentle hydration Labs and medication were reviewed.. Continue same treatment. Continue with symptomatic treatment. Resume home medication. Monitor lytes and vitals. DVT and GI prophylaxis. Further recommendations depends on the clinical course of the patient DVT prophylaxis: Coumadine GI Prophylaxis: Pepcid PT/OT: Pending Prognosis is guarded
[2020-08-07] MEDS ORDERED: WARFARIN 10 MG TAB PO ONE (18:00)
[2020-08-07] MEDS ORDERED: WARFARIN 7.5 MG TAB PO ONE (18:00)
[2020-08-07 19:34] VITALS: PULSE 60
--- NOTE | 2020-08-07 21:33 | PN ---
PROGRESS NOTE DATE OF SERVICE: 08/07/2020 REASON FOR FOLLOWUP: Pneumonia and UTI. INTERVAL HISTORY: Patient is currently afebrile. The patient is more awake and alert. He is breathing comfortably. Denies having any chest pain or shortness of breath. Occasional cough. No abdominal pain. No diarrhea. PHYSICAL EXAMINATION: Blood pressure 105/67, pulse of 70, temperature of 98. He is 94% on room air. General description: The patient is an elderly male lying in bed in no distress. Respiratory system: Unlabored breathing, decreased breath sounds in the base, with no wheeze. Heart S1, S2. Regular rate and rhythm. ABDOMEN: Soft, no tenderness. LABS: Hemoglobin is 12.1, white count 5.6. BUN of 28, creatinine 1.5. DIAGNOSTIC IMPRESSION AND PLAN: Patient admitted to hospital with sepsis, likely pneumonia, left lower lobe urinary tract infection, overall improvement on Rocephin. Finish therapy with oral Ceftin. Continue supportive care. MMODL / IJN: [id number] /
[2020-08-08 07:37] VITALS: BP 135/74; RESP 20; TEMP 97.8
[2020-08-08] MEDS: lisinopriL 10 MG TAB PO SCH (07:50)
[2020-08-08] MEDS: FAMOTIDINE 20 MG TAB PO SCH (07:50)
[2020-08-08] MEDS: ZINC SULFATE 220 MG CAP PO SCH (07:50)
[2020-08-08] MEDS: atenoloL 50 MG TAB PO SCH (07:51)
[2020-08-08 09:18] LABS: INR 1.45 (0.90-1.11); Prothrombin Time 15.2 sec (9.9-11.9)
[2020-08-08] MEDS ORDERED: ENOXAPARIN 150 MG/ML SYRINGE SQ SCH (12:00)
--- NOTE | 2020-08-08 13:51 | P.PN ---
Subjective Progress Note Date: 08/08/20 HISTORY OF PRESENT ILLNESS This is a 79-year-old male patient under treatment for pneumonia and UTI. Caprice ent states he is feeling well today. He denies having any nausea vomiting. No abdominal pain. He states he had a loose stool this morning. Patient instructed to increase yogurt with each meal. He denies having any shortness of breath or cough. He has been afebrile, heart rate 60, blood pressure 135/74, pulse ox 96% on room air. PHYSICAL EXAMINATION Gen: This is a morbidly obese 79-year-old male. He is sitting in recliner and appears uncomfortable. HEENT: Head is atraumatic, normocephalic. Pupils equal, round. Sclerae is anicteric. NECK: Supple. No JVD. No lymphadenopathy. LUNGS: Clear to auscultation. No wheezes or rhonchi. No intercostal retractions. HEART: Regular rate and rhythm. No murmur. ABDOMEN: Soft. Morbidly obese. Bowel sounds are present. No masses. No tenderness. EXTREMITIES: No pedal edema. No calf tenderness. NEUROLOGICAL: Patient is awake, alert and oriented x3. ASSESSMENT Sepsis secondary to left lower lobe pneumonia and UTI PLAN Continue Rocephin Ceftin 500 mg twice daily for five-day course. Prescription sent to patient's pharmacy. Continue supportive care. The above dictated assessment and findings were discussed with Dr. Castillo. The impression and plan of care have been directed as dictated. Elif Mijares nurse practitioner acting as scribe for Dr. Castillo. Objective - Vital Signs Vital signs: Vital Signs Temp 97.8 F 08/08/20 07:37 Pulse 60 08/08/20 07:37 Resp 20 08/08/20 07:45 BP 135/74 08/08/20 07:37 Pulse Ox 96 08/08/20 07:37 Intake & Output 08/07/20 08/08/20 08/08/20 18:59 06:59 18:59 Intake Total 200 Balance 200 Intake: Oral 200 Other: Voiding Method Urinal Toilet Toilet Diaper Urinal Urinal Diaper Diaper # Voids 2 2 # Bowel Movements 1 1 - Labs CBC & Chem 7: 08/07/20 05:23 08/07/20 05:23 Labs: Abnormal Lab Results - Last 24 Hours (Table) 08/08/20 Range/Units 05:19 PT 15.2 H (9.9-11.9) sec INR 1.45 H (0.90-1.11) Microbiology - Last 24 Hours (Table) 08/03/20 19:10 Blood Culture - Preliminary Blood No Growth after 96 hours 08/03/20 18:50 Blood Culture - Preliminary Blood No Growth after 96 hours
[2020-08-08] MEDS ORDERED: WARFARIN 3 MG TAB PO ONE (18:00)
--- NOTE | 2020-08-09 01:37 | P.DS ---
Providers Date of admission: 08/03/20 19:47 Attending physician: Carina Knott Consults: 08/03/20 19:48 Consult Physician Routine Consulting Provider: Aj Castillo Consult Reason/Comments: pneumonia Do you want consulting provider notified?: Yes Primary care physician: Celina Munoz Hospital Course: Diagnoses: Acute pneumonia rather than UTI, community acquired left lower lobe pneumonia, improved Sepsis with leukocytosis and fever, SIR is criteria , present on admission, improved Chronic atrial fibrillation status post permanent pacemaker placement current on anticoagulation with Coumadin, with subtherapeutic INR upon discharge, patient declined Lovenox bridge Left nephrolithiasis, asymptomatic History of GI bleed likely diverticular vs internal Hemorrhoids.in nature. Mild acute kidney injury on the top of chronic kidney disease, stage III Hyperlipidemia BPH History of prostate cancer in 2015 status post postradiation GERD Previous history of smoking Obesity with BMI of 40 Hospital course: This is a pleasant 79 years old male with past medical history of chronic atrial fibrillation, hyperlipidemia, BPH, history of prostate cancer in 2015 status post radiation, GERD He was recently hospitalized in this hospital about 6 months ago for acute GI bleed, likely diverticular versus internal hemorrhoids, is a patient of Dr. 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 He presents because of fever and shivering/chills of 2 days' duration. He didn't have specific pulmonary or urinary symptoms however both are suspected on admission pneumonia and UTI and his been treated with ceftriaxone 2 g daily by ID team, patient regained his weakness and he remains asymptomatic however generally he feels better, however it was felt it is pneumonia rather than UTI because chest x-ray showed left lower lobe pneumonia while urine culture is negative. Patient after back close to his baseline he got cleared by infectious disease team for discharge on Ceftin. Also his INR was subtherapeutic and was 1.4 today, he takes about 5 mg of Coumadin every day XL 2 days he takes 2.5 mg, this was increased upon discharge to 6 mg daily, Lovenox bridging dose of 140 mg twice daily was also prescribed for him however patient declined for risk of bleeding including intracranial bleeding, also patient status before he had the surgery and his INR was corrected with Coumadin only and states that usually works for him well. Risks including but not limited to recurrent thrombosis, stroke, organ dysfunction and/or did he verbalized understanding however he still declined Lovenox. However patient will be discharged on home health care also I discussed the case with his PCP Dr. Munoz and him and Dr. Munoz are agreeable with appointment on 08/11 and states he will follow-up Problems and management plan were discussed with the patient and he verbalized understanding and acceptance Patient was found stable and can be discharged home however he needs follow-up a s an outpatient. Patient was instructed to follow up with PCP as above Gen: patient is a AAOx3, no distress, obese CVS: S1-S2, RRR, no murmur Lungs: B/L CTA, no wheezing Abdomen: soft, no distention, no tenderness, positive bowel sounds Extremity: no leg edema or induration Time spent more than 35 minutes Patient Condition at Discharge: Fair Plan - Discharge Summary Discharge Rx Participant: Yes New Discharge Prescriptions: New Cefuroxime Axetil [Ceftin] 500 mg PO BID 5 Days #10 tab Warfarin [Coumadin] 6 mg PO DAILY #60 tab Enoxaparin [Lovenox] 140 mg SQ Q12H 3 Days #6 syringe Continue Simvastatin [Zocor] 20 mg PO HS Vitamin E (Dl,Tocopheryl Acet) [Vitamin E] 400 unit PO DAILY Zinc 50 mg PO BID atenoloL [Tenormin] 50 mg PO BID Acetaminophen [Tylenol] 650 mg PO Q4H PRN PRN Reason: Pain lisinopriL [Zestril] 10 mg PO DAILY Calcium Carbonate [Calcium] 600 mg PO BID Magnesium 200 mg PO BID Discontinued Warfarin [Coumadin] 5 mg PO SUMOWETHFR Warfarin [Coumadin] 2.5 mg PO TUSA Discharge Medication List Simvastatin [Zocor] 20 mg PO HS 08/02/14 [History] Vitamin E (Dl,Tocopheryl Acet) [Vitamin E] 400 unit PO DAILY 08/03/14 [History] Zinc 50 mg PO BID 08/03/14 [History] atenoloL [Tenormin] 50 mg PO BID 08/03/14 [History] Acetaminophen [Tylenol] 650 mg PO Q4H PRN 09/17/14 [History] Calcium Carbonate [Calcium] 600 mg PO BID 03/23/19 [History] Magnesium 200 mg PO BID 03/23/19 [History] lisinopriL [Zestril] 10 mg PO DAILY 03/23/19 [History] Cefuroxime Axetil [Ceftin] 500 mg PO BID 5 Days #10 tab 08/08/20 [Rx] Enoxaparin [Lovenox] 140 mg SQ Q12H 3 Days #6 syringe 08/08/20 [Rx] Warfarin [Coumadin] 6 mg PO DAILY #60 tab 08/08/20 [Rx] Follow up Appointment(s)/Referral(s): [facility], [NON-STAFF] - Celina Munoz MD [Primary Care Provider] - 08/11/20 3:30 pm Patient Instructions/Handouts: Viral Pneumonia (DC) Discharge Disposition: HOME SELF-CARE
== END 2020-08-08 14:56 | disposition home or self-care (01) | DRG 871 ==
LOC: EC 18:02 → 4SSUR 19:47
PROVIDERS: ADMIT Hospitalist; ATTEND Hospitalist
DX: A41.9 Sepsis, unspecified organism (principal); J18.9 Pneumonia, unspecified organism; I48.20 Chronic atrial fibrillation, unspecified; N17.9 Acute kidney failure, unspecified; Z68.41 Body mass index [BMI] 40.0-44.9, adult; E87.2 Acidosis; E78.5 Hyperlipidemia, unspecified; I12.9 Hypertensive chronic kidney disease with stage 1 through stage 4 chronic kidney disease, or unspecified chronic kidney disease; I25.10 Atherosclerotic heart disease of native coronary artery without angina pectoris; N18.30 Chronic kidney disease, stage 3 unspecified; N40.0 Benign prostatic hyperplasia without lower urinary tract symptoms; N20.0 Calculus of kidney; Z20.822 Contact with and (suspected) exposure to COVID-19; R79.1 Abnormal coagulation profile; E66.9 Obesity, unspecified; Z79.01 Long term (current) use of anticoagulants; Z79.899 Other long term (current) drug therapy; Z82.0 Family history of epilepsy and other diseases of the nervous system; Z86.73 Personal history of transient ischemic attack (TIA), and cerebral infarction without residual deficits; Z95.0 Presence of cardiac pacemaker; Z87.891 Personal history of nicotine dependence; Z95.1 Presence of aortocoronary bypass graft; Z92.3 Personal history of irradiation; Z85.46 Personal history of malignant neoplasm of prostate; Z90.49 Acquired absence of other specified parts of digestive tract; Z98.890 Other specified postprocedural states; Z98.1 Arthrodesis status; Z80.9 Family history of malignant neoplasm, unspecified; Z82.61 Family history of arthritis
CPT/HCPCS: 36415; 71045; 76770; 80048; 80053; 81001; 83605; 85025; 85610; 85730; 86140; 87040; 87086; 87635; 93005; 96365; 99285

== ENCOUNTER 2021-05-30 15:32 | Inpatient (IN) | payer MEDICARE, BC ==
[2021-05-30] MEDS ORDERED: IBUPROFEN 600 MG TAB PO STA (16:27)
[2021-05-30] MEDS ORDERED: LIDOCAINE 1% INJ 10MG/ML (20 ML MDV) SQ ONE (16:27)
--- NOTE | 2021-05-30 16:32 | ED ---
General Adult HPI - General Chief complaint: Weakness Stated complaint: weakness Time Seen by Provider: 05/30/21 15:58 Source: patient, EMS, RN notes reviewed Mode of arrival: EMS Limitations: no limitations - History of Present Illness Initial comments: Patient is a pleasant 80-year-old male presenting to the emergency department with concerns for dental abscess and general weakness. Patient has had toothache for the past one week. Patient has noticed some swelling over the past couple of days. Patient did take Tylenol twice today. Patient was going to go to his doctor's today however had difficulty getting up and moving around. Patient did meet his daughter to help him stand up and was exhausted after about 3 steps. No isolated area of weakness. No confusion. - Related Data Home Medications Medication Instructions Recorded Confirmed Simvastatin [Zocor] 20 mg PO HS 08/02/14 05/30/21 Vitamin E (Dl,Tocopheryl Acet) 400 unit PO DAILY 08/03/14 05/30/21 [Vitamin E (400 Iu = 180 mg)] Zinc 50 mg PO DAILY 08/03/14 05/30/21 atenoloL [Tenormin] 50 mg PO BID 08/03/14 05/30/21 Calcium Carbonate [Calcium] 600 mg PO DAILY 03/23/19 05/30/21 lisinopriL [Zestril] 10 mg PO DAILY 03/23/19 05/30/21 Acetaminophen [Tylenol] 1,000 mg PO Q6H PRN 05/30/21 05/30/21 Docusate [Colace] 100 mg PO DAILY 05/30/21 05/30/21 L.acidoph,Paracasei, B.lactis 1 cap PO DAILY 05/30/21 05/30/21 [Probiotic] Loperamide HCl [Imodium A-D] 2 mg PO ACHS PRN 05/30/21 05/30/21 Magnesium Oxide [Stovall] 500 mg PO BID 05/30/21 05/30/21 Warfarin [Coumadin] 5 mg PO HS 05/30/21 05/30/21 amLODIPine [Norvasc] 5 mg PO DAILY 05/30/21 05/30/21 Allergies Allergy/AdvReac Type Severity Reaction Status Date / Time No Known Allergies Allergy Verified 05/30/21 17:31 Review of Systems ROS Statement: Those systems with pertinent positive or pertinent negative responses have been documented in the HPI. ROS Other: All systems not noted in ROS Statement are negative. Constitutional: Reports: chills Eyes: Denies: eye pain ENT: Reports: as per HPI, dental pain Respiratory: Denies: cough Cardiovascular: Denies: chest pain Endocrine: Reports: fatigue Gastrointestinal: Denies: abdominal pain Genitourinary: Denies: dysuria Musculoskeletal: Denies: back pain Skin: Denies: rash Neurological: Denies: weakness Past Medical History Past Medical History: Atrial Fibrillation, Cancer, CVA/TIA, GERD/Reflux, Hyperlipidemia, Prostate Disorder Additional Past Medical History / Comment(s): tia-2004, See Dr Aguirre H&P, arthritis, uses walker or cane, enlarged prostate, prostate CA 2014(radiation), shingles february 2019. History of Any Multi-Drug Resistant Organisms: None Reported Past Surgical History: Cholecystectomy, Hernia Repair, Orthopedic Surgery, Pacemaker Additional Past Surgical History / Comment(s): cervical fusion, lithrotripsy, Past Anesthesia/Blood Transfusion Reactions: No Reported Reaction Additional Past Anesthesia/Blood Transfusion Reaction / Comment(s): Pt has never recieved blood. Type of Cardiac Device: Permanent Pacemaker Device Placement Date:: 2013 Past Psychological History: No Psychological Hx Reported Smoking Status: Former smoker Past Alcohol Use History: None Reported Past Drug Use History: None Reported - Past Family History Father Family Medical History: Cancer Additional Family Medical History / Comment(s): Father had brain tumors. He in his 80's. Mother Family Medical History: Osteoarthritis (OA) Additional Family Medical History / Comment(s): Mother had parkinsons . She in her late 80's. General Exam Limitations: no limitations General appearance: alert, in no apparent distress Head exam: Present: normocephalic Eye exam: Present: normal appearance, PERRL, EOMI ENT exam: Present: other (Right upper gum with mild swelling. Right maxillary region also with mild swelling) Neck exam: Present: normal inspection. Absent: tenderness, meningismus Respiratory exam: Present: normal lung sounds bilaterally Cardiovascular Exam: Present: regular rate, normal rhythm GI/Abdominal exam: Present: soft. Absent: tenderness Extremities exam: Present: normal inspection. Absent: pedal edema, calf tenderness Neurological exam: Present: alert Psychiatric exam: Present: normal affect, normal mood Skin exam: Present: normal color Course Vital Signs 05/30/21 05/30/21 15:39 19:41 Temperature 100.3 F H 100.8 F H Pulse Rate 75 70 Respiratory 17 18 Rate Blood Pressure 146/73 O2 Sat by Pulse 97 93 L Oximetry - Reevaluation(s) Reevaluation #1: 05/30/21 20:13 patient does meet sepsis criteria diagnosed at 2009. Blood culture and lactic acid and IV antibiotics will all be ordered EKG Findings - EKG Comments: EKG Findings:: Paced rhythm with a rate of 69. CO 240. QRS 180. QT 436. QTc 467. Left axis. Wide QRS complex. Nonspecific ST-T. Procedures - Incision & Drainage Consent Obtained: verbal consent Site: oral Anesthetic Used: lidocaine 1% Amount (mLs): 2 Needle Aspiration Performed?: Yes I&D Drainage Obtained: Pus Patient Tolerated Procedure: well, no complications Medical Decision Making - Medical Decision Making Patient reevaluated. Patient and family updated. Case was discussed with Dr. Knott, who will admit covering for Dr. Munoz. He does request consult with Dr. Edwards. - Lab Data Result diagrams: 05/30/21 17:00 05/30/21 17:00 Lab Results 05/30/21 05/30/21 05/30/21 Range/Units 17:00 17:00 17:00 WBC 14.2 H (3.8-10.6) k/uL RBC 4.78 (4.30-5.90) m/uL Hgb 14.6 (13.0-17.5) gm/dL Hct 42.8 (39.0-53.0) % MCV 89.6 (80.0-100.0) fL MCH 30.5 (25.0-35.0) pg MCHC 34.1 (31.0-37.0) g/dL RDW 13.8 (11.5-15.5) % Plt Count 324 (150-450) k/uL MPV 7.3 Neutrophils % 84 % Lymphocytes % 6 % Monocytes % 8 % Eosinophils % 0 % Basophils % 0 % Neutrophils # 12.0 H (1.3-7.7) k/uL Lymphocytes # 0.9 L (1.0-4.8) k/uL Monocytes # 1.1 H (0-1.0) k/uL Eosinophils # 0.1 (0-0.7) k/uL Basophils # 0.0 (0-0.2) k/uL PT 26.1 H (9.0-12.0) sec INR 2.7 H (<1.2) APTT 42.5 H (22.0-30.0) sec Sodium (137-145) mmol/L Potassium (3.5-5.1) mmol/L Chloride (98-107) mmol/L Carbon Dioxide (22-30) mmol/L Anion Gap mmol/L BUN (9-20) mg/dL Creatinine (0.66-1.25) mg/dL Est GFR (CKD-EPI)AfAm (>60 ml/min/1.73 sqM) Est GFR (CKD-EPI)NonAf (>60 ml/min/1.73 sqM) Glucose (74-99) mg/dL Plasma Lactic Acid Yasir (0.7-2.0) mmol/L Calcium (8.4-10.2) mg/dL Total Bilirubin (0.2-1.3) mg/dL AST (17-59) U/L ALT (4-49) U/L Alkaline Phosphatase (38-126) U/L Troponin I (0.000-0.034) ng/mL Total Protein (6.3-8.2) g/dL Albumin (3.5-5.0) g/dL Urine Color Yellow Urine Appearance Cloudy (Clear) Urine pH 6.5 (5.0-8.0) Ur Specific [place] 1.022 (1.001-1.035) Urine Protein 2+ H (Negative) Urine Glucose (UA) Negative (Negative) Urine Ketones Trace H (Negative) Urine Blood Moderate H (Negative) Urine Nitrite Negative (Negative) Urine Bilirubin Negative (Negative) Urine Urobilinogen <2.0 (<2.0) mg/dL Ur Leukocyte Esterase Large H (Negative) Urine RBC 41 H (0-5) /hpf Urine WBC 77 H (0-5) /hpf Urine WBC Clumps Moderate H (None) /hpf Urine Bacteria Few H (None) /hpf Coronavirus (PCR) (Not Detectd) 05/30/21 05/30/21 05/30/21 Range/Units 17:00 17:00 17:00 WBC (3.8-10.6) k/uL RBC (4.30-5.90) m/uL Hgb (13.0-17.5) gm/dL Hct (39.0-53.0) % MCV (80.0-100.0) fL MCH (25.0-35.0) pg MCHC (31.0-37.0) g/dL RDW (11.5-15.5) % Plt Count (150-450) k/uL MPV Neutrophils % % Lymphocytes % % Monocytes % % Eosinophils % % Basophils % % Neutrophils # (1.3-7.7) k/uL Lymphocytes # (1.0-4.8) k/uL Monocytes # (0-1.0) k/uL Eosinophils # (0-0.7) k/uL Basophils # (0-0.2) k/uL PT (9.0-12.0) sec INR (<1.2) APTT (22.0-30.0) sec Sodium 135 L (137-145) mmol/L Potassium 4.5 (3.5-5.1) mmol/L Chloride 103 (98-107) mmol/L Carbon Dioxide 22 (22-30) mmol/L Anion Gap 10 mmol/L BUN 21 H (9-20) mg/dL Creatinine 1.34 H (0.66-1.25) mg/dL Est GFR (CKD-EPI)AfAm 58 (>60 ml/min/1.73 sqM) Est GFR (CKD-EPI)NonAf 50 (>60 ml/min/1.73 sqM) Glucose 113 H (74-99) mg/dL Plasma Lactic Acid Yasir 1.4 (0.7-2.0) mmol/L Calcium 8.7 (8.4-10.2) mg/dL Total Bilirubin 0.5 (0.2-1.3) mg/dL AST 22 (17-59) U/L ALT 12 (4-49) U/L Alkaline Phosphatase 74 (38-126) U/L Troponin I (0.000-0.034) ng/mL Total Protein 6.7 (6.3-8.2) g/dL Albumin 3.9 (3.5-5.0) g/dL Urine Color Urine Appearance (Clear) Urine pH (5.0-8.0) Ur Specific [place] (1.001-1.035) Urine Protein (Negative) Urine Glucose (UA) (Negative) Urine Ketones (Negative) Urine Blood (Negative) Urine Nitrite (Negative) Urine Bilirubin (Negative) Urine Urobilinogen (<2.0) mg/dL Ur Leukocyte Esterase (Negative) Urine RBC (0-5) /hpf Urine WBC (0-5) /hpf Urine WBC Clumps (None) /hpf Urine Bacteria (None) /hpf Coronavirus (PCR) Not Detected (Not Detectd) 05/30/21 Range/Units 17:00 WBC (3.8-10.6) k/uL RBC (4.30-5.90) m/uL Hgb (13.0-17.5) gm/dL Hct (39.0-53.0) % MCV (80.0-100.0) fL MCH (25.0-35.0) pg MCHC (31.0-37.0) g/dL RDW (11.5-15.5) % Plt Count (150-450) k/uL MPV Neutrophils % % Lymphocytes % % Monocytes % % Eosinophils % % Basophils % % Neutrophils # (1.3-7.7) k/uL Lymphocytes # (1.0-4.8) k/uL Monocytes # (0-1.0) k/uL Eosinophils # (0-0.7) k/uL Basophils # (0-0.2) k/uL PT (9.0-12.0) sec INR (<1.2) APTT (22.0-30.0) sec Sodium (137-145) mmol/L Potassium (3.5-5.1) mmol/L Chloride (98-107) mmol/L Carbon Dioxide (22-30) mmol/L Anion Gap mmol/L BUN (9-20) mg/dL Creatinine (0.66-1.25) mg/dL Est GFR (CKD-EPI)AfAm (>60 ml/min/1.73 sqM) Est GFR (CKD-EPI)NonAf (>60 ml/min/1.73 sqM) Glucose (74-99) mg/dL Plasma Lactic Acid Yasir (0.7-2.0) mmol/L Calcium (8.4-10.2) mg/dL Total Bilirubin (0.2-1.3) mg/dL AST (17-59) U/L ALT (4-49) U/L Alkaline Phosphatase (38-126) U/L Troponin I <0.012 (0.000-0.034) ng/mL Total Protein (6.3-8.2) g/dL Albumin (3.5-5.0) g/dL Urine Color Urine Appearance (Clear) Urine pH (5.0-8.0) Ur Specific [place] (1.001-1.035) Urine Protein (Negative) Urine Glucose (UA) (Negative) Urine Ketones (Negative) Urine Blood (Negative) Urine Nitrite (Negative) Urine Bilirubin (Negative) Urine Urobilinogen (<2.0) mg/dL Ur Leukocyte Esterase (Negative) Urine RBC (0-5) /hpf Urine WBC (0-5) /hpf Urine WBC Clumps (None) /hpf Urine Bacteria (None) /hpf Coronavirus (PCR) (Not Detectd) - Radiology Data Radiology results: image reviewed (Chest x-ray shows no acute process) Critical Care Time Critical Care Time: Yes Total Critical Care Time: 32 Disposition Clinical Impression: Dental abscess, UTI (urinary tract infection), Sepsis Disposition: ADMITTED IP TO THIS HOSP Is patient prescribed a controlled substance at d/c from ED?: No Referrals: Celina Munoz MD [Primary Care Provider] - 1-2 days Decision Time: 20:14
[2021-05-30] MEDS ORDERED: AMPICILLIN-SULBACTAM 3 GM in SODIUM CHLORIDE 0.9% 100 ML IVPB STA (17:15)
--- NOTE | 2021-05-30 17:17 | XR ---
EXAMINATION TYPE: XR chest 2V DATE OF EXAM: 05/30/2021 COMPARISON: 08/07/2020 HISTORY: Fever TECHNIQUE: 2 views FINDINGS: There is no heart failure nor confluent pneumonic infiltrate. Costophrenic angles are clear . There is left axillary pacemaker. Bony thorax is intact. There is cervical spine fusion surgery. IMPRESSION: No active cardiomegaly disease. No adverse change compared to old exam. There is improved inspiration.
[2021-05-30 17:29] LABS: Basophils % (A) 0 %; Eosinophils # (A) 0.1 k/uL (0-0.7); Eosinophils % (A) 0 %; HCT 42.8 % (39.0-53.0); HGB 14.6 gm/dL (13.0-17.5); Lymphocytes # (A) 0.9 k/uL (1.0-4.8); Lymphocytes % (A) 6 %; MCH 30.5 pg (25.0-35.0); MCHC 34.1 g/dL (31.0-37.0); MCV 89.6 fL (80.0-100.0); Mean Platelet Volume 7.3; Monocytes # (A) 1.1 k/uL (0-1.0); Monocytes % (A) 8 %; Neutrophils % (A) 84 %; Platelet Count 324 k/uL (150-450); RBC 4.78 m/uL (4.30-5.90); RDW 13.8 % (11.5-15.5); WBC 14.2 k/uL (3.8-10.6)
[2021-05-30 17:38] LABS: INR 2.7 (<1.2); Partial Thromboplastin Time 42.5 sec (22.0-30.0); Prothrombin Time 26.1 sec (9.0-12.0)
[2021-05-30 17:43] LABS: Albumin 3.9 g/dL (3.5-5.0); Calcium 8.7 mg/dL (8.4-10.2); Potassium 4.5 mmol/L (3.5-5.1); Total Bilirubin 0.5 mg/dL (0.2-1.3); Total Protein 6.7 g/dL (6.3-8.2)
[2021-05-30 19:19] LABS: Appearance,Urine Cloudy (Clear); Bacteria,Urine Few /hpf; Bilirubin,Urine Negative (Negative); Blood,Urine Moderate (Negative); Color,Urine Yellow; Glucose,Urine (UA) Negative (Negative); Ketones,Urine Trace (Negative); Leukocyte Esterase,Urine Large (Negative); Nitrite,Urine Negative (Negative); PH, Urine 6.5 (5.0-8.0); Protein,Urine 2+ (Negative); RBC,Urine 41 /hpf (0-5); Specific Gravity,Urine 1.022 (1.001-1.035); Urobilinogen,Urine <2.0 mg/dL (<2.0); WBC,Urine 77 /hpf (0-5)
--- NOTE | 2021-05-30 20:11 | HP ---
HISTORY AND PHYSICAL DATE OF SERVICE: 05/30/2021. CHIEF COMPLAINT: Weakness. HISTORY OF PRESENT ILLNESS: This 80-year-old gentleman with a past medical history of multiple medical problems, including atrial fibrillation, CVA, TIA, GERD, hyperlipidemia, being followed by Dr. Munoz in the outpatient setting has complaints of weakness. The patient is apparently living by himself and the family checked on to him and the patient has had a toothache for the past 1 week. The patient also noted some swelling of the right upper lip with some tenderness. The patient has taken Tylenol. Because of increasing weakness, and difficulties, the patient came to [facility] and admitted for for further evaluation and treatment. The patient was found to be febrile. The patient also had an elevated WBC. Otherwise INR is also elevated at 2.7 and sodium is 135 and creatinine is 1.34. There is no history of fever, rigors, chills at this time. PAST MEDICAL HISTORY: History of atrial fibrillation, history of CVA, TIA, GERD, hyperlipidemia, history of prostate cancer. MEDICATIONS: Home medications are Imodium, magnesium, probiotic, Colace, Norvasc, zinc, Coumadin, Zestril, Tenormin, vitamin E, Zocor, calcium, and Tylenol. ALLERGIES: None. FAMILY HISTORY: Family history of cancer in the family. SOCIAL HISTORY: No history of smoking. No history of alcohol. REVIEW OF SYSTEMS: ENT: As mentioned earlier. No diminished vision. No diminished hearing. CARDIOVASCULAR: No angina. RESPIRATION: As mentioned earlier. GI: As mentioned earlier. : No dysuria. NERVOUS SYSTEM: No numbness or weakness. ALLERGY/IMMUNOLOGY: No asthma or hayfever. MUSCULOSKELETAL: As mentioned earlier. HEMATOLOGY/ONCOLOGY: No history of anemia. ENDOCRINE: As mentioned earlier. CONSTITUTIONAL: As mentioned earlier. DERMATOLOGY: Negative. RHEUMATOLOGY negative. PHYSICAL EXAMINATION: Patient is alert, oriented x3. Pulse is 75, blood pressure 140/73, respiration 17, temperature 100.2, pulse ox 97% on room air. HEENT: Conjunctivae normal. Oral mucosa significant tenderness of the right upper lip and as well as in inner buccal area. Some black discoloration also noted. Some tenderness. NECK: No jugular venous distention. No carotid bruit. No lymph node enlargement. CARDIOVASCULAR: S1, S2 muffled. RESPIRATION: Breath sounds diminished in the bases. A few scattered rhonchi. ABDOMEN: Soft, nontender. No mass palpable. LEGS: No edema. No swelling. NERVOUS SYSTEM: Higher functions as mentioned earlier. Moves all 4 limbs. No focal motor or sensory deficits. LYMPHATICS: No lymph nodes palpable in the neck, axillae or groin. SKIN: No ulcer, no rash and no bleeding. JOINTS: No active deforming arthropathy. LAB STUDIES: WBC 14.2, creatinine is 2.7, sodium 135. ASSESSMENT: 1. Possible dental abscess with buccal cellulitis with early sepsis. 2. Increased WBC. 3. Continued fever. 4. Hyponatremia. 5. Increased creatinine with acute on chronic kidney disease with baseline chronic kidney disease stage 3. 6. History atrial fibrillation. 7. History of cerebrovascular accident, transient ischemic attack. 8. Gastroesophageal reflux disease. 9. Hyperlipidemia. 10.History of degenerative joint disease. 11.History of cholecystectomy. 12.History of hernia surgery. 13.History of pacemaker. 14.Remote history of nicotine dependence. 15.Obesity with body mass of 40.7. RECOMMENDATIONS AND DISCUSSION: This 80-year-old gentleman who presented with multiple complex medical issues, we will monitor the patient closely, initiate broad-spectrum IV antibiotics. Obtain cultures. Infectious disease evaluation. Dental surgery evaluation. A copy of the dictation is being forwarded to Dr. Munoz who is the primary physician. Please see orders for further details. MMODL / IJN: [id number] /
[2021-05-30] MEDS ORDERED: ACETAMINOPHEN TAB 325 MG TAB PO PRN (20:16)
[2021-05-30] MEDS ORDERED: NALOXONE 0.4 MG/ML 1 ML VIAL IV PRN (20:16)
[2021-05-30] MEDS ORDERED: IBUPROFEN 400 MG TAB PO PRN (20:16)
[2021-05-30] MEDS ORDERED: SODIUM CHLORIDE 0.9% 500 ML 500 ML IV STA (20:20)
[2021-05-30] MEDS: SODIUM CHLORIDE 0.9% 1,000 ML IV SCH (22:06)
[2021-05-31] MEDS: AMPICILLIN-SULBACTAM 1.5 GM in SODIUM CHLORIDE 0.9% 50 ML IVPB SCH ×4 (01:25→17:44)
[2021-05-31] MEDS: SODIUM CHLORIDE 0.9% 1,000 ML IV SCH ×3 (03:29→17:34)
[2021-05-31 04:23] LABS: Basophils % (A) 0 %; Eosinophils # (A) 0.1 k/uL (0-0.7); Eosinophils % (A) 1 %; HCT 40.4 % (39.0-53.0); HGB 12.8 gm/dL (13.0-17.5); Lymphocytes # (A) 0.9 k/uL (1.0-4.8); Lymphocytes % (A) 9 %; MCH 29.6 pg (25.0-35.0); MCHC 31.8 g/dL (31.0-37.0); MCV 93.2 fL (80.0-100.0); Monocytes % (A) 9 %; Neutrophils # (A) 7.9 k/uL (1.3-7.7); Neutrophils % (A) 79 %; Platelet Count 252 k/uL (150-450); RBC 4.34 m/uL (4.30-5.90); RDW 13.3 % (11.5-15.5); WBC 10.1 k/uL (3.8-10.6)
[2021-05-31] MEDS ORDERED: ACETAMINOPHEN TAB 500 MG TAB PO PRN (12:38)
[2021-05-31] MEDS ORDERED: LOPERAMIDE 2 MG CAP PO PRN (12:38)
[2021-05-31] MEDS: ZINC SULFATE 220 MG CAP PO SCH (13:03)
[2021-05-31] MEDS: MAGNESIUM OXIDE 400 MG TAB PO SCH ×2 (13:03→20:19)
[2021-05-31] MEDS: atenoloL 50 MG TAB PO SCH ×2 (13:03→20:19)
[2021-05-31] MEDS: CALCIUM CARBONATE 500 MG CHEWABLE PO SCH (13:03)
[2021-05-31] MEDS: LACTOBACILLUS ACIDOPH & BULGAR 1 EACH PACKET PO SCH (13:03)
[2021-05-31] MEDS: amLODIPine 5 MG TAB PO SCH (13:03)
[2021-05-31] MEDS: DOCUSATE 100 MG CAP PO SCH (13:03)
[2021-05-31] MEDS: lisinopriL 10 MG TAB PO SCH (13:03)
--- NOTE | 2021-05-31 13:49 | CT ---
EXAMINATION TYPE: CT facial bones wo con DATE OF EXAM: 05/31/2021 COMPARISON: HISTORY: dental abscess CT DLP: 804.1 mGycm Automated exposure control for dose reduction was used. TECHNIQUE: CT scan of the sinuses is performed without contrast, axial images are obtained, coronal r eformatted images are also reviewed. FINDINGS: There is a right-sided periorbital edema with preseptal edema. There is soft tissue edema a djacent to the maxilla. Dental artifact limits assessment of the osseous structures of the maxilla. C hanges of chronic sinusitis are noted. No contrast was administered therefore assessment for abscess is limited but grossly no sizable fluid collection identified. The orbits are symmetric. The globes are intact. No obvious fracture or destructive changes of the os seous structures. Degenerative change cervical spine. There is skin thickening and para and soft tissue edema extends along the lateral margin of the soft tissues of the right neck below the level of the mandible. Airway appears to be patent. Nasopharynx a nd oropharynx symmetric. Parotid glands have a normal appearance. Shotty lymphadenopathy noted in the soft tissues of the neck. Vascular calcifications of the carotid arteries without evidence of significant stenosis. Single tiny punctate calcification in the right farfan bmandibular gland. Generalized degenerative change within the brain noted. Within the right maxilla t here is some periapical lucency around one of the incisors which may represent tooth disease. IMPRESSION: 1. Extensive soft tissue edema extending from the right periorbital region along the right facial str uctures including the soft tissues adjacent to and inferior to the right mandible. Lack of contrast l imits assessment for abscess grossly no definable abscess identified. Correlate for cellulitis. 2. Chronic sinusitis. 3. Correlate for periodontal disease.
[2021-05-31 13:59] LABS: INR 2.1 (<1.2); Prothrombin Time 20.6 sec (9.0-12.0)
[2021-05-31] MEDS: VITAMIN E (DL,TOCOPHERYL ACET) 400 UNIT (180 MG) CAP PO SCH (16:27)
--- NOTE | 2021-05-31 17:46 | PN ---
PROGRESS NOTE DATE OF SERVICE: 05/31/2021 This 80-year-old gentleman who was admitted with a significant dental infection as well as UTI with possible early sepsis is being closely monitored at this time. The patient had a facial CT scan which I reviewed personally. It showed extensive soft tissue edema extending from the right periorbital region to right facial structures, including the soft tissues adjacent to the right mandible and chronic sinusitis. Periodontal disease is also noted. There is no history of fever, rigors or chills at this time. The cultures are negative so far. White count is 14.2. INR is 2.1. Creatinine is 1.34. UA shows evidence of UTI. COVID-19 was negative. Past medical history reviewed. REVIEW OF SYSTEMS: CARDIOVASCULAR SYSTEM: No angina. RESPIRATION: As mentioned earlier. GI: As mentioned earlier. : No dysuria. NERVOUS SYSTEM: No numbness, weakness. ALLERGY/IMMUNOLOGY: No asthma or hay fever. MUSCULOSKELETAL: As mentioned earlier. CURRENT MEDICATIONS: Reviewed. They include Tylenol, Norvasc, Unasyn, Tenormin, Lipitor. Doses and other medications reviewed. PHYSICAL EXAMINATION: Patient is alert, oriented x3. Pulse is 74, blood pressure 109/57, respiration 18, temperature 98.2, pulse ox 96% on room air. HEENT: Conjunctivae normal. NECK: No jugular venous distention. CARDIOVASCULAR: S1, S2 muffled. RESPIRATION: Breath sounds diminished at the bases. No rhonchi. No crackles. ABDOMEN: Soft. Mild diffuse tenderness in the lower part of the abdomen. LEGS: No edema. No swelling. NERVOUS SYSTEM: No focal deficit. EXAMINATION OF THE FACE: Significant tenderness of the right buccal area and also deep oral cavity also present. LABS: WBC 10.1, hemoglobin 12.8 and creatinine is 1.34. INR is 2.1. ASSESSMENT: 1. Acute urinary tract infection with possible sepsis, present on admission. 2. Possible dental abscess with buccal cellulitis with early sepsis, present on admission. 3. Increased white count. 4. Continued fever. 5. Hyponatremia. 6. Increased creatinine with acute on chronic kidney disease as well as baseline chronic kidney disease, stage 3. 7. History of atrial fibrillation, paroxysmal. 8. History of cerebrovascular accident, transient ischemic attack. 9. Gastroesophageal reflux disease. 10.Hyperlipidemia. 11.History of degenerative joint disease. 12.History of cholecystectomy. 13.History of hernia surgery. 14.History of pacemaker. 15.Remote history of nicotine dependence. 16.Obesity with body mass index of 40.7. RECOMMENDATIONS AND DISCUSSION: I recommend to continue current medications, continue with symptomatic treatment. Otherwise at this time I would recommend repeat labs. Continue the antibiotics. Infectious disease evaluation. Oral dental surgery evaluation. Guarded prognosis because of multiple complex medical issues. Further recommendations to follow. MMODL / IJN: [id number] /
[2021-05-31] MEDS: ATORVASTATIN 10 MG TAB PO SCH (20:19)
[2021-05-31] MEDS: WARFARIN 5 MG TAB PO SCH (20:20)
--- NOTE | 2021-06-01 00:13 | CONS ---
CONSULTATION DATE OF CONSULT: 05/31/2021 CHIEF COMPLAINT: My face is swollen. HISTORY OF PRESENT ILLNESS: The patient is an 80-year-old male who states that he has not seen a dentist in a long time. He states that his dentition has been deteriorating and most recently they have fractured to the gumline and are in disrepair. He states that he noticed swelling to the right perinasal area that started to extend into the eye region over the last 2 days. He states he went to the [facility] ER where he was started on antibiotics and the swelling was aspirated from an intraoral approach in the ER. The patient was then admitted to the floor and is undergoing IV antibiotic treatment. PAST MEDICAL HISTORY: Significant for atrial fibrillation, placement of a pacemaker, hypertension, and history of a TIA. MEDICATIONS: Include warfarin, simvastatin, atenolol, amlodipine, lisinopril, zinc, magnesium, calcium, vitamin E, Imodium, acetaminophen p.r.n. ALLERGIES: He states he is not allergic to anything. LABS: Show a white count of 10. His INR is 2.1. PHYSICAL EXAM: Reveals the patient to be afebrile. Alert and oriented x3 with stable vital signs. His head reveals [id number] swelling of the right paranasal region and the intraorbital region. The swelling is soft to palpation with mild tenderness. Intraoral examination reveals the dentition in disrepair. He has generalized caries with many . Teeth numbers 7 and 8 are decayed with only the root remaining. Tooth #5 is fractured and decayed. There is some mild swelling of the buccal vestibule in the region of 7 and 8 with mild tenderness. There is no other swelling noted. There are no oral lesions and without lesion or swelling. ASSESSMENT: 1. Carious teeth. 2. Abscessed teeth. 3. A right perinasal and intraorbital abscess. PLAN: The patient is currently on IV antibiotics and has responded. I anticipate another day or 2 of IV antibiotics. The patient will then be discharged and will follow up in my office for the extraction of teeth numbers 7 and 8 and possibly other teeth that are necrotic or nonrestorable. Recommended heat to the area that is swollen and the head of bed to be elevated. MMODL / IJN: [id number] /
[2021-06-01] MEDS: AMPICILLIN-SULBACTAM 1.5 GM in SODIUM CHLORIDE 0.9% 50 ML IVPB SCH ×2 (00:44→05:23)
[2021-06-01] MEDS: SODIUM CHLORIDE 0.9% 1,000 ML IV SCH ×3 (05:12→19:45)
[2021-06-01 08:08] LABS: INR 1.8 (<1.2); Prothrombin Time 17.5 sec (9.0-12.0)
--- NOTE | 2021-06-01 08:20 | P.CONS ---
History of Present Illness - Reason for Consult Consult date: 05/31/21 dental abscess Requesting physician: Carina Knott - Chief Complaint weakness and upper jaw pain x - History of Present Illness History of present illness : Patient is 80-year-old male who has been brought into the ER last evening for evaluation of generalized weakness and dental abscess, patient apparently did have a tooth ache for the past 1 week and noticed to have some swelling to the upper jaw area for the last couple of days patient been taking some Tylenol however did not have any improvement patient complains of generalized weakness no energy no chest pain shortness breath or cough no abdominal pain no diarrhea has been complaining of some urinary burning as well on presentation to the hospital patient have low-grade fever 100.8 F patient did have white count of 14.2 with a left shift creatinine was 1.34 urine has been positive patient did have a face CT extensive soft tissue edema from the right periorbital region along the right facial structure no drainable abscess correlate for cellulitis and chronic sinusitis patient has been started on Unasyn infectious disease was consulted for further management of antibiotic therapy Review of system: CONSTITUTIONAL: Positive for weakness along with the fever. EYES: No complaint. ENT: As per history of present illness. RESPIRATORY: No complaint. CARDIOVASCULAR: No complaint. GENITOURINARY as per history of present illness. GASTROINTESTINAL: No complaint. MUSCULOSKELETAL: No complaint. INTEGUMENTARY: No complaint. PSYCHOLOGIC: No complaint. ENDOCRINE: No complaint. NEUROLOGIC: No complaint. Past medical history : Reviewed, documented below Past surgical history : Reviewed, documented below Social history: Reviewed, documented below Medications: Reviewed, as documented below EXAMINATION: Vital sigans= Reviewed and documented below GENERAL DESCRIPTION: Elderly male up in bed, no distress. No tachypnea or accessory muscle of respiration use. HEENT: Shows Pallor , no scleral icterus. Oral mucous membrane is dry. Did have some swelling around teeth numbers 7 and 8 no drainage NECK: Trachea central, no thyromegaly. LUNGS: Unlabored breathing. Clear to auscultation anteriorly. No wheeze or crackle. HEART: S1, S2, regular rate and rhythm. ABDOMEN: Soft, no tenderness , guarding or rigidity EXTREMITIES: No edema of feet. SKIN: No rash, no masses palpable. NEUROLOGICAL: The patient is awake, alert, oriented x3, mood and affect normal. LABS AND RADIOLOGY: Reviewed results see below Assessment : Patient presented to hospital with weakness fever upper jaw pain an d swelling concerning for peridental abscess or cellulitis around teeth numbers 7 and 8 and will likely cover for the polymicrobial chris of the oral cavity and concerning for UTI from enteric gram-negative pathogen Plan: 1-we will adjust dose of Unasyn to 3 g every 6 hours 2-gentle IV fluid 3-await dental surgery evaluation We will follow on clinical condition and cultures to further adjust medication if needed Thank you for this consultation we will follow the patient along with you Past Medical History Past Medical History: Atrial Fibrillation, Cancer, CVA/TIA, GERD/Reflux, Hyperlipidemia, Prostate Disorder Additional Past Medical History / Comment(s): tia-2004, See Dr Aguirre H&P, arthritis, uses walker or cane, enlarged prostate, prostate CA 2014(radiation), shingles february 2019. History of Any Multi-Drug Resistant Organisms: None Reported Past Surgical History: Cholecystectomy, Hernia Repair, Orthopedic Surgery, Pacemaker Additional Past Surgical History / Comment(s): cervical fusion, lithrotripsy, Past Anesthesia/Blood Transfusion Reactions: No Reported Reaction Additional Past Anesthesia/Blood Transfusion Reaction / Comm: Pt has never recieved blood. Type of Cardiac Device: Permanent Pacemaker Device Placement Date:: 2013 Smoking Status: Former smoker - Past Family History Father Family Medical History: Cancer Additional Family Medical History / Comment(s): Father had brain tumors. He in his 80's. Mother Family Medical History: Osteoarthritis (OA) Additional Family Medical History / Comment(s): Mother had parkinsons . She in her late 80's. Medications and Allergies Home Medications Medication Instructions Recorded Confirmed Type Simvastatin [Zocor] 20 mg PO HS 08/02/14 05/30/21 History Vitamin E (Dl,Tocopheryl Acet) 400 unit PO DAILY 08/03/14 05/30/21 History [Vitamin E (400 Iu = 180 mg)] Zinc 50 mg PO DAILY 08/03/14 05/30/21 History atenoloL [Tenormin] 50 mg PO BID 08/03/14 05/30/21 History Calcium Carbonate [Calcium] 600 mg PO DAILY 03/23/19 05/30/21 History lisinopriL [Zestril] 10 mg PO DAILY 03/23/19 05/30/21 History Acetaminophen [Tylenol] 1,000 mg PO Q6H PRN 05/30/21 05/30/21 History Docusate [Colace] 100 mg PO DAILY 05/30/21 05/30/21 History L.acidoph,Paracasei, B.lactis 1 cap PO DAILY 05/30/21 05/30/21 History [Probiotic] Loperamide HCl [Imodium A-D] 2 mg PO ACHS PRN 05/30/21 05/30/21 History Magnesium Oxide [Stovall] 500 mg PO BID 05/30/21 05/30/21 History Warfarin [Coumadin] 5 mg PO HS 05/30/21 05/30/21 History amLODIPine [Norvasc] 5 mg PO DAILY 05/30/21 05/30/21 History Allergies Allergy/AdvReac Type Severity Reaction Status Date / Time No Known Allergies Allergy Verified 05/30/21 17:31 Physical Exam Vitals: Vital Signs Temp Pulse Pulse Resp BP BP Pulse Ox 05/31/21 19:03 99.0 F 70 20 110/68 94 L 05/31/21 15:00 98.3 F 71 18 109/57 96 05/31/21 13:50 74 20 05/31/21 13:02 74 143/76 05/31/21 08:00 74 20 05/31/21 07:00 98 F 70 20 141/64 97 05/31/21 02:00 98.4 F 64 18 112/56 97 05/30/21 22:09 64 18 109/59 93 L Intake and Output 05/31/21 05/31/21 05/31/21 06:59 14:59 22:59 Intake Total 2350 120 Balance 2350 120 Intake: Intake, IV Titration 910 Amount Sodium Chloride 0.9% 1, 910 000 ml @ 130 mls/hr IV . [id number] [facility] Rx#:[id number] Oral 1440 120 Other: Voiding Method Diaper Incontinent # Voids 3 1 # Bowel Movements 1 Weight 136.078 kg Results CBC & Chem 7: 05/31/21 04:01 05/30/21 17:00 Labs: Abnormal Lab Results - Last 24 Hours (Table) 05/31/21 05/31/21 Range/Units 04:01 13:21 Hgb 12.8 L (13.0-17.5) gm/dL Neutrophils # 7.9 H (1.3-7.7) k/uL Lymphocytes # 0.9 L (1.0-4.8) k/uL PT 20.6 H (9.0-12.0) sec INR 2.1 H (<1.2) Microbiology - Last 24 Hours (Table) 05/30/21 18:15 Blood Culture - Preliminary Blood No Growth after 24 hours 05/30/21 18:15 Blood Culture - Preliminary Blood No Growth after 24 hours 05/30/21 17:00 Urine Culture - Preliminary Urine,Voided
[2021-06-01] MEDS: CALCIUM CARBONATE 500 MG CHEWABLE PO SCH (08:44)
[2021-06-01] MEDS: atenoloL 50 MG TAB PO SCH ×2 (08:44→19:43)
[2021-06-01] MEDS: LACTOBACILLUS ACIDOPH & BULGAR 1 EACH PACKET PO SCH (08:44)
[2021-06-01] MEDS: MAGNESIUM OXIDE 400 MG TAB PO SCH ×2 (08:44→19:43)
[2021-06-01] MEDS: ZINC SULFATE 220 MG CAP PO SCH (08:44)
[2021-06-01] MEDS: VITAMIN E (DL,TOCOPHERYL ACET) 400 UNIT (180 MG) CAP PO SCH (08:44)
[2021-06-01] MEDS: DOCUSATE 100 MG CAP PO SCH (08:44)
[2021-06-01] MEDS: AMPICILLIN-SULBACTAM 3 GM in SODIUM CHLORIDE 0.9% 100 ML IVPB SCH ×3 (11:15→23:21)
[2021-06-01] MEDS: lisinopriL 10 MG TAB PO SCH (11:15)
[2021-06-01 11:39] LABS: Basophils # (A) 0.02 X 10*3/uL (0.00-0.10); Basophils % (A) 0.2 %; Eosinophils # (A) 0.16 X 10*3/uL (0.04-0.35); Eosinophils % (A) 1.9 %; HCT 38.1 % (39.6-50.0); HGB 11.8 g/dL (13.0-17.0); Lymphocytes # (A) 0.74 X 10*3/uL (0.90-5.00); Lymphocytes % (A) 8.7 %; MCV 93.6 fL (80.0-97.0); Mean Platelet Volume 9.6 fL (9.5-12.2); Monocytes # (A) 0.99 X 10*3/uL (0.20-1.00); Monocytes % (A) 11.6 %; Neutrophils # (A) 6.59 X 10*3/uL (1.80-7.70); Neutrophils % (A) 77.2 %; Platelet Count 270 X 10*3/uL (140-440); RBC 4.07 X 10*6/uL (4.40-5.60); RDW 14.2 % (11.5-14.5); WBC 8.53 X 10*3/uL (4.50-10.00)
[2021-06-01 13:07] LABS: African American GFR (CKD) 58.1 (60.0-200.0); Anion Gap 10.2 mmol/L (4.00-12.00); BUN/Creat Ratio 14.51 Ratio (12.00-20.00); Blood Urea Nitrogen 19.3 mg/dL (9.0-27.0); Carbon Dioxide 21.2 mmol/L (21.6-31.8); Non-African American GFR(CKD) 50.1 (60.0-200.0); Potassium 4.9 mmol/L (3.5-5.5)
[2021-06-01] MEDS: amLODIPine 5 MG TAB PO SCH (15:56)
--- NOTE | 2021-06-01 18:25 | PN ---
PROGRESS NOTE DATE OF SERVICE: 06/01/2021 This 80-year-old gentleman who was admitted with acute UTI with possible sepsis also had a possible dental abscess. The patient is on broad-spectrum IV antibiotics. No chest pain. No palpitations. No fever. The INR is 1.8. Sodium is 139, potassium is 4.9. Oral Surgery has seen the patient. The cultures are negative so far. No chest pain. No palpitations. No fever. PHYSICAL EXAMINATION: Alert and oriented x3. Pulse 63, blood pressure 126/74, respirations 16, temperature 98.2, pulse ox 94% on room air. HEENT: Conjunctivae normal. NECK: No jugular venous distention. CARDIOVASCULAR: S1, S2 muffled. RESPIRATION: Breath sounds diminished at the bases. ABDOMEN: Soft. NERVOUS SYSTEM: No focal deficit. EXAMINATION OF THE RIGHT BUCCAL AREA: Some slight tenderness and also present. LABS: WBC 8.3, hemoglobin 11.8, INR 1.8. ASSESSMENT: 1. Acute urinary tract infection with possible sepsis, present on admission. 2. Acute dental abscess with buccal cellulitis and early sepsis, present on admission. 3. Increased white count. 4. Continued fever, improved. 5. Hyponatremia. 6. Increased creatinine with acute on chronic kidney disease as well as baseline chronic kidney disease, stage 3. 7. History of atrial fibrillation, paroxysmal. 8. History of cerebrovascular accident, transient ischemic attack. 9. History of gastroesophageal reflux disease. 10.Hyperlipidemia. 11.History of degenerative joint disease. 12.History of cholecystectomy. 13.History of hernia surgery. 14.History of pacemaker. 15.Remote history of nicotine dependence. 16.Obesity with body mass index of 40.7. RECOMMENDATIONS AND DISCUSSION: I recommend to continue current medications, continue with the monitoring, continue with symptomatic treatment. Otherwise at this time I recommend continuing the broad- spectrum antibiotics, IV Unasyn. Follow the cultures. Closely follow with Infectious Disease and Dental Surgery. Dr. Richter has suggested outpatient followup after discharge. Prognosis guarded. Further recommendations to follow. MMODL / IJN: [id number] / MTDD
[2021-06-01] MEDS: WARFARIN 5 MG TAB PO SCH (19:43)
[2021-06-01] MEDS: ATORVASTATIN 10 MG TAB PO SCH (19:43)
--- NOTE | 2021-06-01 23:52 | PN ---
PROGRESS NOTE DATE OF SERVICE: 06/01/2021 REASON FOR FOLLOWUP: Jaw cellulitis and UTI. INTERVAL HISTORY: The patient is afebrile. The patient did mention overall decrease in the pain to his jaw area. Overall swelling and redness have improved. No chest pain, shortness of breath or cough. No abdominal pain or diarrhea. PHYSICAL EXAMINATION: Blood pressure 110/63 with a pulse of 58, temperature 97.5. He is 95% on room air. General description is an elderly male up in the bed in no distress. Respiratory system: Unlabored breathing, clear to auscultation anteriorly. Heart S1, S2. Regular rate and rhythm. Abdomen soft, no tenderness. The left upper jaw swelling has decreased. LABS: Hemoglobin is 11.3, white count 8.53, creatinine is 1.3. DIAGNOSTIC IMPRESSION AND PLAN: Patient with infected upper jaw with cellulitis and a urinary tract infection. Patient is covered with Unasyn with overall improvement; to continue, finishing therapy with oral Augmentin. Continue with supportive care. MMODL / IJN: [id number] /
[2021-06-02] MEDS: AMPICILLIN-SULBACTAM 3 GM in SODIUM CHLORIDE 0.9% 100 ML IVPB SCH ×2 (05:26→12:50)
[2021-06-02 07:49] VITALS: TEMP 97.8
[2021-06-02 08:21] LABS: INR 1.8 (<1.2); Prothrombin Time 17.4 sec (9.0-12.0)
[2021-06-02] MEDS: DOCUSATE 100 MG CAP PO SCH (08:22)
[2021-06-02] MEDS: LACTOBACILLUS ACIDOPH & BULGAR 1 EACH PACKET PO SCH (08:22)
[2021-06-02] MEDS: VITAMIN E (DL,TOCOPHERYL ACET) 400 UNIT (180 MG) CAP PO SCH (08:22)
[2021-06-02] MEDS: CALCIUM CARBONATE 500 MG CHEWABLE PO SCH (08:23)
[2021-06-02] MEDS: atenoloL 50 MG TAB PO SCH (08:23)
[2021-06-02] MEDS: ZINC SULFATE 220 MG CAP PO SCH (08:23)
[2021-06-02] MEDS: MAGNESIUM OXIDE 400 MG TAB PO SCH (08:23)
[2021-06-02] MEDS: lisinopriL 10 MG TAB PO SCH (12:50)
--- NOTE | 2021-06-02 14:00 | PN ---
PROGRESS NOTE DATE OF SERVICE: 06/02/2021 REASON FOR FOLLOWUP: Upper jaw infection with facial cellulitis and a UTI. INTERVAL HISTORY: The patient is afebrile. The patient is currently feeling better, breathing comfortably. Patient's overall pain and discomfort to the upper jaw area has improved. No chest pain, shortness of breath or cough. No abdominal pain or diarrhea. PHYSICAL EXAMINATION: Blood pressure 114/67, pulse of 63, temperature 97.8. He is 98% on 2 L nasal cannula. General description is an elderly male up in the chair in no distress. HEENT examination: Overall facial swelling and redness have improved. Lungs: Unlabored breathing, clear to auscultation anteriorly. Heart S1, S2. Regular rate and rhythm. Abdomen soft, no tenderness. LABS: INR is 1.8. Culture has been negative so far. DIAGNOSTIC IMPRESSION AND PLAN: Patient with upper jaw cellulitis from infected teeth; also with a urinary tract infection in this patient who has shown overall improvement on the Unasyn. To finish therapy with oral Augmentin and close outpatient followup. INR will need to be monitored closely while on antibiotics. Continue with supportive care. MMODL / IJN: [id number] /
[2021-06-02 14:29] VITALS: BP 125/59; PULSE 66; RESP 18
--- NOTE | 2021-06-29 12:22 | CDI ---
Documentation Clarification Form Date: 06/29/2021 12:15:35 PM From: Shayne Menendez Phone: Admit Date: 05/31/2021 02:55:00 PM Patient Name: Santosh Melton Visit Number: [id number] Discharge Date: 06/02/2021 03:33:00 PM ATTENTION: The Clinical Documentation Specialists (CDI) and [facility] Coding Staff appreciate your assistance in clarifying documentation. Please respond to the clarification below the line at the bottom and electronically sign. The CDI & [facility] Coding staff will review the response and follow-up if needed. Please note: Queries are made part of the Legal Health Record. If you have any questions, please contact the author of this message via ITS. Dr. Carina Knott Sepsis is documented in progress note 06/01/21 but is not noted in subsequent documentation. Clarification is requested. History/Risk Factors: facial cellulitis Clinical Indicators: ED: temp 100, BP146/73, resp 17, pulse 75, blood culture negative Treatment: IV abx Please clarify if the [insert diagnosis] is: [ ] sepsis is confirmed, remains under treatment [ ] sepsis is confirmed, resolved [ ] se[sos ruled out [ ] Other condition, please specify [ ] Unable to determine possible sepsis MTDD
--- NOTE | 2021-06-29 18:18 | P.DS ---
Providers Date of admission: 05/31/21 14:55 Expected date of discharge: 06/02/21 Attending physician: Carina Knott Consults: 05/30/21 20:19 Consult Physician Routine Consulting Provider: Jackson Edwards Consult Reason/Comments: dental abcess Do you want consulting provider notified?: Yes 05/31/21 15:36 Consult Physician Routine Consulting Provider: Aj Castillo Consult Reason/Comments: sepsis Do you want consulting provider notified?: Yes Primary care physician: Celina Munoz [facility] Course: 80-year-old male who has been brought into the ER last evening for evaluation of generalized weakness and dental abscess, patient apparently did have a tooth ache for the past 1 week and noticed to have some swelling to the upper jaw area for the last couple of days patient been taking some Tylenol however did not have any improvement patient complains of generalized weakness no energy no chest pain shortness breath or cough no abdominal pain no diarrhea has been complaining of some urinary burning as well on presentation to the hospital patient have low-grade fever 100.8 F patient did have white count of 14.2 with a left shift creatinine was 1.34 urine has been positive patient did have a face CT extensive soft tissue edema from the right periorbital region along the right facial structure no drainable abscess correlate for cellulitis and chronic sinusitis patient has been started on Unasyn infectious disease was consulted for further management of antibiotic therapy Patient was treated with IV Unasyn later switched to oral Augmentin at time of discharge to complete a total of antibiotic therapy Plan - Discharge Summary New Discharge Prescriptions: New Amoxicillin/Potassium Clav [Augmentin 875-125 Tablet] 1 tab PO Q12HR 7 Days #14 tab Continue Simvastatin [Zocor] 20 mg PO HS Vitamin E (Dl,Tocopheryl Acet) [Vitamin E (400 Iu = 180 mg)] 400 unit PO DAILY Zinc 50 mg PO DAILY atenoloL [Tenormin] 50 mg PO BID lisinopriL [Zestril] 10 mg PO DAILY Calcium Carbonate [Calcium] 600 mg PO DAILY Magnesium Oxide [Stovall] 500 mg PO BID amLODIPine [Norvasc] 5 mg PO DAILY L.acidoph,Paracasei, B.lactis [Probiotic] 1 cap PO DAILY Docusate [Colace] 100 mg PO DAILY Warfarin [Coumadin] 5 mg PO HS Acetaminophen [Tylenol] 1,000 mg PO Q6H PRN PRN Reason: Pain Loperamide HCl [Imodium A-D] 2 mg PO ACHS PRN PRN Reason: Diarrhea Discharge Medication List Simvastatin [Zocor] 20 mg PO HS 08/02/14 [History] Vitamin E (Dl,Tocopheryl Acet) [Vitamin E (400 Iu = 180 mg)] 400 unit PO DAILY 08/03/14 [History] Zinc 50 mg PO DAILY 08/03/14 [History] atenoloL [Tenormin] 50 mg PO BID 08/03/14 [History] Calcium Carbonate [Calcium] 600 mg PO DAILY 03/23/19 [History] lisinopriL [Zestril] 10 mg PO DAILY 03/23/19 [History] Acetaminophen [Tylenol] 1,000 mg PO Q6H PRN 05/30/21 [History] Docusate [Colace] 100 mg PO DAILY 05/30/21 [History] L.acidoph,Paracasei, B.lactis [Probiotic] 1 cap PO DAILY 05/30/21 [History] Loperamide HCl [Imodium A-D] 2 mg PO ACHS PRN 05/30/21 [History] Magnesium Oxide [Stovall] 500 mg PO BID 05/30/21 [History] Warfarin [Coumadin] 5 mg PO HS 05/30/21 [History] amLODIPine [Norvasc] 5 mg PO DAILY 05/30/21 [History] Amoxicillin/Potassium Clav [Augmentin 875-125 Tablet] 1 tab PO Q12HR 7 Days #14 tab 06/02/21 [Rx] Follow up Appointment(s)/Referral(s): [facility] [NON-STAFF] - 1-2 Days Celina Munoz MD [Primary Care Provider] - 1-2 days (Please call when office is open to make appointment) Aj Castillo MD [STAFF PHYSICIAN] - 1 Week (states will call to make appointment) Activity/Diet/Wound Care/Special Instructions: Patient to follow up with a oral surgeon, Dr Edward Richter [phone]. Discharge Disposition: HOME SELF-CARE
== END 2021-06-02 15:33 | disposition home or self-care (01) | DRG 872 ==
LOC: EC 15:32 → 1SOBS 20:16 → 6NMEDSUR 23:54 → OBSVTOIN 05-31 14:55
PROVIDERS: ADMIT Hospitalist; ATTEND Hospitalist
DX: A41.9 Sepsis, unspecified organism (principal); Z68.41 Body mass index [BMI] 40.0-44.9, adult; E87.1 Hypo-osmolality and hyponatremia; K12.2 Cellulitis and abscess of mouth; L03.211 Cellulitis of face; N39.0 Urinary tract infection, site not specified; E66.9 Obesity, unspecified; E78.5 Hyperlipidemia, unspecified; I48.0 Paroxysmal atrial fibrillation; J32.9 Chronic sinusitis, unspecified; K02.9 Dental caries, unspecified; K04.7 Periapical abscess without sinus; K05.6 Periodontal disease, unspecified; K21.9 Gastro-esophageal reflux disease without esophagitis; M27.2 Inflammatory conditions of jaws; N18.30 Chronic kidney disease, stage 3 unspecified; I12.9 Hypertensive chronic kidney disease with stage 1 through stage 4 chronic kidney disease, or unspecified chronic kidney disease; N40.0 Benign prostatic hyperplasia without lower urinary tract symptoms; Z20.822 Contact with and (suspected) exposure to COVID-19; Z79.01 Long term (current) use of anticoagulants; Z79.899 Other long term (current) drug therapy; Z80.9 Family history of malignant neoplasm, unspecified; Z82.0 Family history of epilepsy and other diseases of the nervous system; Z85.46 Personal history of malignant neoplasm of prostate; Z86.73 Personal history of transient ischemic attack (TIA), and cerebral infarction without residual deficits; Z87.891 Personal history of nicotine dependence; Z90.49 Acquired absence of other specified parts of digestive tract; Z95.0 Presence of cardiac pacemaker; M19.90 Unspecified osteoarthritis, unspecified site
CPT/HCPCS: 36415; 70486; 71046; 80048; 80053; 81001; 83605; 84484; 85025; 85610; 85730; 87040; 87086; 87635; 93005; 96365; 96366; 99285

== ENCOUNTER 2022-01-21 01:44 | Emergency (ER) | payer MEDICARE, BC ==
[2022-01-21 02:02] VITALS: TEMP 98
[2022-01-21] MEDS ORDERED: HYDROcodone/APAP 5-325MG 1 EACH TAB PO STA (03:00)
[2022-01-21 04:16] LABS: Basophils % (A) 0 %; Eosinophils % (A) 0 %; HCT 44.3 % (39.0-53.0); HGB 14.7 gm/dL (13.0-17.5); Lymphocytes % (A) 9 %; MCH 29.9 pg (25.0-35.0); MCHC 33.2 g/dL (31.0-37.0); MCV 90.2 fL (80.0-100.0); Mean Platelet Volume 7.5; Monocytes # (A) 0.6 k/uL (0-1.0); Monocytes % (A) 5 %; Neutrophils % (A) 84 %; Platelet Count 275 k/uL (150-450); RBC 4.91 m/uL (4.30-5.90); WBC 10.7 k/uL (3.8-10.6)
[2022-01-21 04:28] LABS: Albumin 4.1 g/dL (3.5-5.0); Calcium 9.3 mg/dL (8.4-10.2); Potassium 4.7 mmol/L (3.5-5.1); Total Bilirubin 0.5 mg/dL (0.2-1.3); Total Protein 6.9 g/dL (6.3-8.2)
[2022-01-21 05:34] LABS: Appearance,Urine Turbid (Clear); Bacteria,Urine Many /hpf; Bilirubin,Urine Negative (Negative); Blood,Urine Moderate (Negative); Color,Urine Yellow; Glucose,Urine (UA) Negative (Negative); Ketones,Urine Negative (Negative); Leukocyte Esterase,Urine Large (Negative); Nitrite,Urine Positive (Negative); PH, Urine 6.5 (5.0-8.0); Protein,Urine 2+ (Negative); RBC,Urine 20 /hpf (0-5); Urobilinogen,Urine <2.0 mg/dL (<2.0); WBC,Urine >182 /hpf (0-5)
[2022-01-21] MEDS ORDERED: LEVOFLOXACIN 500 MG TAB PO STA (05:52)
--- NOTE | 2022-01-21 05:54 | ED ---
Abdominal Pain HPI - General Chief Complaint: Abdominal Pain Stated Complaint: Urogenital, Back Pain Time Seen by Provider: 01/21/22 02:10 Source: patient Mode of arrival: EMS Limitations: no limitations - History of Present Illness Initial Comments: This patient is an 81-year-old man who presents to have evaluation of right flank pain. He states that this is been coming on over the past day to 2. He states he has had this multiple times previously and it has turned out to be urinary tract infection. Patient states that he knows to come to the emergency department for antibiotics when he gets this type of pain. He has not had fever or chills. No vomiting or change in bowel movements. He has not noted change in urination. MD Complaint: flank pain -: days(s) Location: R flank Severity: moderate Quality: aching Consistency: constant Improves With: nothing Worsens With: movement Associated Symptoms: denies other symptoms - Related Data Home Medications Medication Instructions Recorded Confirmed Simvastatin [Zocor] 20 mg PO HS 08/02/14 05/30/21 Vitamin E (Dl,Tocopheryl Acet) 400 unit PO DAILY 08/03/14 05/30/21 [Vitamin E (400 Iu = 180 mg)] Zinc 50 mg PO DAILY 08/03/14 05/30/21 atenoloL [Tenormin] 50 mg PO BID 08/03/14 05/30/21 Calcium Carbonate [Calcium] 600 mg PO DAILY 03/23/19 05/30/21 lisinopriL [Zestril] 10 mg PO DAILY 03/23/19 05/30/21 Acetaminophen [Tylenol] 1,000 mg PO Q6H PRN 05/30/21 05/30/21 Docusate [Colace] 100 mg PO DAILY 05/30/21 05/30/21 L.acidoph,Paracasei, B.lactis 1 cap PO DAILY 05/30/21 05/30/21 [Probiotic] Loperamide HCl [Imodium A-D] 2 mg PO ACHS PRN 05/30/21 05/30/21 Magnesium Oxide [Stovall] 500 mg PO BID 05/30/21 05/30/21 Warfarin [Coumadin] 5 mg PO HS 05/30/21 05/30/21 amLODIPine [Norvasc] 5 mg PO DAILY 05/30/21 05/30/21 Previous Rx's Medication Instructions Recorded Amoxicillin/Potassium Clav 1 tab PO Q12HR 7 Days #14 tab 06/02/21 [Augmentin 875-125 Tablet] Ciprofloxacin HCl [Cipro] 500 mg PO Q12HR #14 tablet 01/21/22 Allergies Allergy/AdvReac Type Severity Reaction Status Date / Time No Known Allergies Allergy Verified 05/30/21 17:31 Review of Systems ROS Statement: Those systems with pertinent positive or pertinent negative responses have been documented in the HPI. ROS Other: All systems not noted in ROS Statement are negative. Constitutional: Denies: fever, chills, weakness Respiratory: Denies: cough, dyspnea Cardiovascular: Denies: chest pain, palpitations, edema Gastrointestinal: Reports: as per HPI, abdominal pain (Right flank). Denies: nausea, vomiting, diarrhea, constipation Genitourinary: Denies: dysuria, frequency, hematuria Musculoskeletal: Denies: back pain Skin: Denies: rash Neurological: Denies: headache, weakness, numbness Past Medical History Past Medical History: Atrial Fibrillation, Cancer, CVA/TIA, GERD/Reflux, Hyperlipidemia, Prostate Disorder Additional Past Medical History / Comment(s): tia-2004, See Dr Aguirre H&P, arthritis, uses walker or cane, enlarged prostate, prostate CA 2014(radiation), shingles february 2019. History of Any Multi-Drug Resistant Organisms: None Reported Past Surgical History: Cholecystectomy, Hernia Repair, Orthopedic Surgery, Pacemaker Additional Past Surgical History / Comment(s): cervical fusion, lithrotripsy, Past Anesthesia/Blood Transfusion Reactions: No Reported Reaction Additional Past Anesthesia/Blood Transfusion Reaction / Comment(s): Pt has never recieved blood. Type of Cardiac Device: Permanent Pacemaker Device Placement Date:: 2013 Past Psychological History: No Psychological Hx Reported Smoking Status: Former smoker - Past Family History Father Family Medical History: Cancer Additional Family Medical History / Comment(s): Father had brain tumors. He in his 80's. Mother Family Medical History: Osteoarthritis (OA) Additional Family Medical History / Comment(s): Mother had parkinsons . She in her late 80's. General Exam Limitations: no limitations General appearance: alert, in no apparent distress Head exam: Present: atraumatic, normocephalic Eye exam: Present: normal appearance. Absent: scleral icterus, conjunctival injection Neck exam: Present: normal inspection Respiratory exam: Present: normal lung sounds bilaterally. Absent: respiratory distress, wheezes, rales, rhonchi, stridor Cardiovascular Exam: Present: regular rate, normal rhythm, normal heart sounds. Absent: systolic murmur, diastolic murmur, rubs, gallop GI/Abdominal exam: Present: soft. Absent: distended, tenderness, guarding, rebound, rigid, mass Extremities exam: Present: normal inspection, normal capillary refill. Absent: pedal edema, calf tenderness Back exam: Present: normal inspection. Absent: CVA tenderness (R), CVA tenderness (L), paraspinal tenderness Neurological exam: Present: alert Skin exam: Present: warm, dry, intact, normal color. Absent: rash Course Vital Signs 01/21/22 01/21/22 01/21/22 01:58 04:10 06:56 Temperature 98 F Pulse Rate 90 61 65 Respiratory 16 18 16 Rate Blood Pressure 148/83 123/62 116/67 O2 Sat by Pulse 94 L 93 L 93 L Oximetry Medical Decision Making - Lab Data Result diagrams: 01/21/22 03:39 01/21/22 03:39 Lab Results 01/21/22 01/21/22 01/21/22 Range/Units 03:39 03:39 05:07 WBC 10.7 H (3.8-10.6) k/uL RBC 4.91 (4.30-5.90) m/uL Hgb 14.7 (13.0-17.5) gm/dL Hct 44.3 (39.0-53.0) % MCV 90.2 (80.0-100.0) fL MCH 29.9 (25.0-35.0) pg MCHC 33.2 (31.0-37.0) g/dL RDW 14.0 (11.5-15.5) % Plt Count 275 (150-450) k/uL MPV 7.5 Neutrophils % 84 % Lymphocytes % 9 % Monocytes % 5 % Eosinophils % 0 % Basophils % 0 % Neutrophils # 9.0 H (1.3-7.7) k/uL Lymphocytes # 1.0 (1.0-4.8) k/uL Monocytes # 0.6 (0-1.0) k/uL Eosinophils # 0.0 (0-0.7) k/uL Basophils # 0.0 (0-0.2) k/uL Sodium 139 (137-145) mmol/L Potassium 4.7 (3.5-5.1) mmol/L Chloride 104 (98-107) mmol/L Carbon Dioxide 24 (22-30) mmol/L Anion Gap 11 mmol/L BUN 19 (9-20) mg/dL Creatinine 1.63 H (0.66-1.25) mg/dL Est GFR (CKD-EPI)AfAm 45 (>60 ml/min/1.73 sqM) Est GFR (CKD-EPI)NonAf 39 (>60 ml/min/1.73 sqM) Glucose 96 (74-99) mg/dL Calcium 9.3 (8.4-10.2) mg/dL Total Bilirubin 0.5 (0.2-1.3) mg/dL AST 26 (17-59) U/L ALT 14 (4-49) U/L Alkaline Phosphatase 81 (38-126) U/L Total Protein 6.9 (6.3-8.2) g/dL Albumin 4.1 (3.5-5.0) g/dL Amylase 73 (30-110) U/L Lipase 101 (23-300) U/L Urine Color Yellow Urine Appearance Turbid (Clear) Urine pH 6.5 (5.0-8.0) Ur Specific [place] 1.500 H (1.001-1.035) Urine Protein 2+ H (Negative) Urine Glucose (UA) Negative (Negative) Urine Ketones Negative (Negative) Urine Blood Moderate H (Negative) Urine Nitrite Positive (Negative) Urine Bilirubin Negative (Negative) Urine Urobilinogen <2.0 (<2.0) mg/dL Ur Leukocyte Esterase Large H (Negative) Urine RBC 20 H (0-5) /hpf Urine WBC >182 H (0-5) /hpf Urine WBC Clumps Many H (None) /hpf Urine Bacteria Many H (None) /hpf Disposition Clinical Impression: UTI (urinary tract infection) Disposition: HOME SELF-CARE Condition: Good Prescriptions: Ciprofloxacin HCl [Cipro] 500 mg PO Q12HR #14 tablet Is patient prescribed a controlled substance at d/c from ED?: No Referrals: Celina Munoz MD [Primary Care Provider] - 1-2 days
[2022-01-21 06:57] VITALS: BP 116/67; PULSE 65; RESP 16
== END 2022-01-21 07:25 | disposition home or self-care (01) ==
LOC: EC 01:44
DX: N39.0 Urinary tract infection, site not specified (principal); K21.9 Gastro-esophageal reflux disease without esophagitis; Z79.83 Long term (current) use of bisphosphonates; E78.5 Hyperlipidemia, unspecified; Z86.73 Personal history of transient ischemic attack (TIA), and cerebral infarction without residual deficits; Z87.891 Personal history of nicotine dependence
CPT/HCPCS: 36415; 80053; 81001; 82150; 83690; 85025; 87077; 87086; 87186; 99284

== ENCOUNTER → 2022-02-07 | Outpatient (CLI) | payer MEDICARE, BC ==
--- NOTE | 2022-02-07 15:48 | XR ---
EXAMINATION TYPE: XR Hip Complete RT DATE OF EXAM: 02/07/2022 COMPARISON: NONE HISTORY: Pain TECHNIQUE: 2 views submitted FINDINGS: There is no evidence of erosive change or acute fracture. Moderate concentric narrowing of the hip yumiko int. Calcifications in the pelvis likely vascular. Metallic densities in the pelvis may be related to prior surgery. Hypertrophic change of the pubic symphysis. IMPRESSION: 1. Moderate arthropathy. No erosive changes.
== END | disposition home or self-care (01) ==
LOC: RADXRYALE 14:24
PROVIDERS: ATTEND Internal Medicine
DX: M25.551 Pain in right hip (principal)
CPT/HCPCS: 73502

== ENCOUNTER 2022-12-03 10:26 | Day surgery (SDC) | payer MEDICARE, BC ==
[~2022-12-03 10:26] MED LIST: SODIUM CHLORIDE 0.9% 1,000 ML IV SCH
[2022-12-03] MEDS ORDERED: ceFAZolin 1 GM in SODIUM CHLORIDE 0.9% IRRIG BTL 250 ML IRRIGATION PRN (10:30)
[2022-12-03 10:55] VITALS: TEMP 97.9
[2022-12-03 11:17] LABS: Basophils % (A) 0 %; Eosinophils # (A) 0.1 k/uL (0-0.7); Eosinophils % (A) 1 %; HGB 14.4 gm/dL (13.0-17.5); Lymphocytes # (A) 1.1 k/uL (1.0-4.8); Lymphocytes % (A) 11 %; MCH 30.4 pg (25.0-35.0); MCHC 32.7 g/dL (31.0-37.0); Mean Platelet Volume 8.7; Monocytes # (A) 0.5 k/uL (0-1.0); Monocytes % (A) 5 %; Neutrophils % (A) 81 %; Platelet Count 293 k/uL (150-450); RBC 4.73 m/uL (4.30-5.90); RDW 13.7 % (11.5-15.5); WBC 9.9 k/uL (3.8-10.6)
[2022-12-03 11:20] LABS: Calcium 8.7 mg/dL (8.4-10.2); Potassium 4.7 mmol/L (3.5-5.1)
[2022-12-03 11:53] LABS: INR 1.3 (<1.2); Prothrombin Time 13.3 sec (9.0-12.0)
[2022-12-03] MEDS ORDERED: fentaNYL (PF) 50 MCG/ML 2 ML AMP IV ONE (12:55)
[2022-12-03] MEDS ORDERED: MIDAZOLAM 2 MG/2 ML VIAL IV ONE (12:55)
[2022-12-03] MEDS ORDERED: LIDOCAINE 1% INJ 10MG/ML (20 ML MDV) SQ ONE (12:55)
[2022-12-03 20:09] VITALS: RESP 16
[2022-12-03 20:13] VITALS: PULSE 66
[2022-12-03 20:14] VITALS: BP 124/62
--- NOTE | 2022-12-04 11:13 | P.PCN ---
Description of Procedure: CARDIOLOGY PROCEDURE NOTE So[employer] Pits Supervisor: Dr. Brandon Marcano Procedure performed: Dual chamber permanent pacemaker generator change Site: Left subclavian Indications: Sick Sinus Syndrome, end of battery life, MILY Complications: None Blood Loss: Minimal Description of Procedure: After the risks, benefits, and alternatives of the above-mentioned procedure was explained in detail with the patient, informed consent was obtained. The patient was taken to the cardiac catheterization suite where the left subclavian area was sterily prepped and draped in the usual fashion. Patient was given IV Versed and fentanyl for sedation. The skin over the existing pulse generator was infiltrated with lidocaine. An incision was made in the skin and was deepened until the pectoral fascia was exposed. Hemostasis was obtained. The existing pulse generator was pulled out of the pocket. The leads were disconnected and were checked for thresholds. The existing leads were then inserted into the appropriate position into the new generator. They were then secured with the setscrew provided. The leads and generator were inserted into the pocket with the leads posterior. The subcutaneous tissue was approximated utilizing #2.0 and 3.0 vicryl in an interrupted stitch fashion. The dermal layer was approximated utilizing #4.0 vargas ryl. The area was cleansed with sterile saline and dried. A sterile 4x4 dressing was applied and the patient was transferred to the post catheterization holding area in stable and satisfactory condition. The patient tolerated the procedure well. Generator Data Vegetable Packer: [employer]bag Brand: [id number] Fanny XT DR MRI Model #: [id number] Serial#: [id number] Right Atrial Bipolar Lead Data: Type: Active fixation lead Vegetable Packer: [employer]artner Model#: [id number] Serial Number: [id number] Implant Date: 01/11/2009 Right Ventricular Bipolar Lead Data: Type: Active fixation lead Vegetable Packer: [employer]artner Model #: [id number] Serial #: [id number] Implant Date: 01/11/2009 Stimulation Thresholds: Right atrial bipolar lead pacing and sensing thresholds Voltage: Afib Impedance: 323 ohms P-wave sensin.0 mV Right Ventricular bipolar lead pacing and sensing thresholds Pulse Width: 0.4ms Voltage: 1.25 Impedance: 361 ohms R-wave sensing: Complete heart block Parameter Setting: Pacing mode is DDDR Lower rate 60 bpm Upper rate 130 bpm Impressions: 1. Successful generator change of a dual chamber permanent pacemaker in the left pectoral site. Plan: 1. Routine post procedure care will be instituted as well as outpatient follow- up surveillance.
== END 2022-12-03 16:00 | disposition home or self-care (01) ==
LOC: CATHEP 10:26
PROVIDERS: ATTEND Internal Medicine
DX: Z45.010 Encounter for checking and testing of cardiac pacemaker pulse generator [battery] (principal); I49.5 Sick sinus syndrome; I44.2 Atrioventricular block, complete; I48.91 Unspecified atrial fibrillation
CPT/HCPCS: 33228; 80048; 85025; 85610; C1785; J2250; J0690; J2001; J3010

== ENCOUNTER 2023-11-15 13:37 | Inpatient (IN) | payer MEDICARE, BC ==
--- NOTE | 2023-11-15 14:02 | ED ---
Weakness HPI - General Source: patient, RN notes reviewed Mode of arrival: EMS Limitations: no limitations <Judy Torres - Last Filed: 11/15/23 13:59> <Tiffany Galdamez - Last Filed: 11/16/23 04:06> - General Chief complaint: Weakness Stated complaint: Weakness Time Seen by Provider: 11/15/23 13:54 - History of Present Illness Initial comments: Devyn notesarays is an 83-year-old male who presents emergency department chief complaint of weakness that started this morning in addition to right-sided lumbar back pain that began yesterday evening. Patient also admits to dysuria and increase in frequency and urgency. He denies fevers, nausea, vomiting, abdominal pain or diarrhea. Patient has a history of kidney stones and lithotripsy procedure. (Judy Torres) 83-year-old male presenting with chief complaint of weakness. Patient also admits to left-sided lower back pain. Pain began last night. He states that pain has been intermittent throughout the day. He also states that he has had difficulty getting up out of his chair which she normally does with ease, the patient lives alone and requires very little assistance according to family at the bedside. Patient admits to dysuria, he normally wears a briefs so he is not sure if he is having any increase in urgency or frequency. He admits to some abdominal distention today, no abdominal pain. No fever, chills, nausea, v omiting, chest pain, difficulty breathing. (Tiffany Galdamez) - Related Data Home Medications Medication Instructions Recorded Confirmed Simvastatin [Zocor] 20 mg PO HS 08/02/14 12/03/22 Vitamin E (Dl,Tocopheryl Acet) 400 unit PO DAILY 08/03/14 12/03/22 [Vitamin E (400 Iu = 180 mg)] Zinc 50 mg PO DAILY 08/03/14 12/03/22 atenoloL [Tenormin] 50 mg PO BID 08/03/14 12/03/22 Calcium Carbonate [Calcium] 600 mg PO DAILY 03/23/19 12/03/22 lisinopriL [Zestril] 10 mg PO DAILY 03/23/19 12/03/22 Acetaminophen [Tylenol] 1,000 mg PO Q6H PRN 05/30/21 12/03/22 L.acidoph,Paracasei, B.lactis 1 cap PO DAILY 05/30/21 12/03/22 [Probiotic] Magnesium Oxide [Stovall] 500 mg PO DAILY 05/30/21 12/03/22 Warfarin [Coumadin] 5 mg PO SUTUWETHSA 05/30/21 12/03/22 amLODIPine [Norvasc] 5 mg PO DAILY 05/30/21 12/03/22 Furosemide [Lasix] 20 mg PO DAILY 11/29/22 12/03/22 Unk Cranberry Supplement 1 tab PO DAILY 11/29/22 12/03/22 Unk Vitamin E 1 tab PO DAILY 11/29/22 12/03/22 Warfarin [Coumadin] 2.5 mg PO MOFR 11/29/22 12/03/22 Allergies Allergy/AdvReac Type Severity Reaction Status Date / Time No Known Allergies Allergy Verified 11/15/23 13:56 Review of Systems ROS Other: All systems not noted in ROS Statement are negative. <Judy Torres - Last Filed: 11/15/23 13:59> ROS Other: All systems not noted in ROS Statement are negative. <Tiffany Galdamez - Last Filed: 11/16/23 04:06> ROS Statement: Those systems with pertinent positive or pertinent negative responses have been documented in the HPI. Past Medical History Past Medical History: Atrial Fibrillation, Cancer, CVA/TIA, GERD/Reflux, Hyperlipidemia, Hypertension, Prostate Disorder Additional Past Medical History / Comment(s): 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 dry skin on arms, numbness in last 2 fingers to left hand. History of Any Multi-Drug Resistant Organisms: None Reported Past Surgical History: Cholecystectomy, Hernia Repair, Orthopedic Surgery, Pacemaker Additional Past Surgical History / Comment(s): cervical fusion, lithrotripsy, Past Anesthesia/Blood Transfusion Reactions: No Reported Reaction Additional Past Anesthesia/Blood Transfusion Reaction / Comment(s): Pt has never recieved blood. Type of Cardiac Device: Permanent Pacemaker Device Placement Date:: 2013 Past Psychological History: No Psychological Hx Reported Smoking Status: Former smoker Past Alcohol Use History: None Reported Past Drug Use History: None Reported - Past Family History Father Family Medical History: Diabetes Mellitus Mother Family Medical History: Osteoarthritis (OA) Additional Family Medical History / Comment(s): arthritis <Judy Torres - Last Filed: 11/15/23 13:59> General Exam Limitations: no limitations <Judy Torres - Last Filed: 11/15/23 13:59> General appearance: alert, in no apparent distress Head exam: Present: atraumatic, normocephalic Eye exam: Present: normal appearance, EOMI Neck exam: Present: normal inspection. Absent: meningismus Respiratory exam: Present: normal lung sounds bilaterally. Absent: respiratory distress, wheezes, rales, rhonchi, stridor Cardiovascular Exam: Present: regular rate, normal rhythm, normal heart sounds. Absent: systolic murmur, diastolic murmur, rubs, gallop, clicks GI/Abdominal exam: Present: soft, distended. Absent: tenderness, guarding, rebound, rigid Neurological exam: Present: alert, oriented X3 Psychiatric exam: Present: normal affect, normal mood Skin exam: Present: warm, dry <Tiffany Galdamez - Last Filed: 11/16/23 04:06> - General Exam Comments Initial Comments: Visual Physical Exam Vital signs reviewed General: Well-appearing, nontoxic, no acute distress. Head: Normocephalic, atraumatic Eyes: PERRLA, EOMI ENT: Airway patent Chest: Nonlabored breathing Skin: No visual rash, normal skin tone Neuro: Alert and oriented 3 Musculoskeletal: No gross abnormalities (Judy Torres) Course Vital Signs 11/15/23 11/15/23 11/15/23 13:56 21:01 23:34 Temperature 97.7 F Pulse Rate 68 67 60 Respiratory 18 20 20 Rate Blood Pressure 109/60 116/76 119/62 O2 Sat by Pulse 94 L 95 95 Oximetry 11/16/23 03:29 Temperature 99.7 F H Pulse Rate 60 Respiratory 18 Rate Blood Pressure 118/60 O2 Sat by Pulse 91 L Oximetry Medical Decision Making <Judy Torres - Last Filed: 11/15/23 13:59> - Lab Data Result diagrams: 11/15/23 14:39 11/15/23 14:39 <Tiffany Galdamez - Last Filed: 04/27/24 04:06> - Medical Decision Making I completed the quick note portion of this chart signed Judy Torres PA-C (Judy Torres) Was pt. sent in by a medical professional or institution (ROMEO Gonzalez, DIE ENGRAVING SUPERVISOR, urgent care, hospital, or care home...) When possible be specific @ -No Did you speak to anyone other than the patient for history (EMS, parent, family, police, friend...)? What history was obtained from this source @ -Family at bedside Did you review nursing and triage notes (agree or disagree)? Why? @ -I reviewed and agree with nursing and triage notes Were old charts reviewed (outside hosp., previous admission, EMS record, old EKG, old radiological studies, urgent care reports/EKG's, care home records)? Report findings @ -No old charts were reviewed Differential Diagnosis (chest pain, altered mental status, abdominal pain women, abdominal pain men, vaginal bleeding, weakness, fever, dyspnea, syncope, headache, dizziness, GI bleed, back pain, seizure, CVA, palpatations, mental health, musculoskeletal)? @ -MDM Differential Weakness: Hypoglycemia, shock, sepsis, hyponatremia, anemia, infection, MT, ETOH, adverse medicine reaction, overdose, stroke. ... This is not meant to be an all- inclusive list EKG interpreted by me (3pts min.). @ -EKG shows electronic ventricular pacemaker. Ventricular rate 69. QRS 167. QT 458. QTc 478. X-rays interpreted by me (1pt min.). @ -KUB x-ray shows overall nonspecific likely nonobstructive bowel gas pattern. Mild to moderate colonic stool present throughout the rectum CT interpreted by me (1pt min.). @ -None done U/S interpreted by me (1pt. min.). @ -None done What testing was considered but not performed or refused? (CT, X-rays, U/S, labs)? Why? @ -None What meds were considered but not given or refused? Why? @ -None Did you discuss the management of the patient with other professionals (professionals i.e. ROMEO Gonzalez, DIE ENGRAVING SUPERVISOR, lab, RT, psych nurse, social work case manager, publication distributor, teacher, global chief creative officer, family preservation caseworker)? Give summary @ -I spoke with Dr. Yoder who accepted admission Was smoking cessation discussed for >3mins.? @ -No Was critical care preformed (if so, how long)? @ -No Were there social determinants of health that impacted care today? How? (Homelessness, low income, unemployed, alcoholism, drug addiction, t ransportation, low edu. Level, literacy, decrease access to med. care, nursing home, rehab)? @ -No Was there de-escalation of care discussed even if they declined (Discuss DNR or withdrawal of care, Hospice)? DNR status @ -No What co-morbidities impacted this encounter? (DM, HTN, Smoking, COPD, CAD, Cance r, CVA, ARF, Chemo, Hep., AIDS, mental health diagnosis, sleep apnea, morbid obesity)? @ -None Was patient admitted / discharged? Hospital course, mention meds given and route, prescriptions, significant lab abnormalities, going to OR and other pertinent info. @ -83-year-old male presenting with chief complaint of weakness and left-sided flank pain. History of UTIs, symptoms feel similar. Workup is initiated by triage. WBC 15.8. He is negative for influenza, RSV, COVID. Patient is later brought back to a room where the history and physical exam are conducted. The patient is having no abdominal pain but does have some abdominal distention. He is given Tylenol for his pain. Urine appears positive for UTI with large leukocytes and 171 WBCs as well as small blood and 13 RBCs. Rocephin is started after blood cultures are drawn. Urine is sent for culture. Patient will be admitted for IV antibiotics. He is agreeable with this plan. I discussed this case with my attending Dr. Mcqueen Undiagnosed new problem with uncertain prognosis? @ -No Drug Therapy requiring intensive monitoring for toxicity (Heparin, Nitro, Insulin, Cardizem)? @ -No Were any procedures done? @ -No Diagnosis/symptom? @ -UTI, generalized weakness Acute, or Chronic, or Acute on Chronic? @ -Acute Uncomplicated (without systemic symptoms) or Complicated (systemic symptoms)? @ -Complicated Side effects of treatment? @ -No Exacerbation, Progression, or Severe Exacerbation? @ -No Poses a threat to life or bodily function? How? (Chest pain, USA, MT, pneumonia, PE, COPD, DKA, ARF, appy, cholecystitis, CVA, Diverticulitis, Homicidal, Suicidal, threat to staff... and all critical care pts) @ -Potentially (Tiffany Galdamez) - Lab Data Lab Results 11/15/23 11/15/23 11/15/23 Range/Units 14:39 14:39 23:00 WBC 15.8 H (3.8-10.6) k/uL RBC 4.65 (4.30-5.90) m/uL Hgb 13.7 (13.0-17.5) gm/dL Hct 42.6 (39.0-53.0) % MCV 91.5 (80.0-100.0) fL MCH 29.4 (25.0-35.0) pg MCHC 32.1 (31.0-37.0) g/dL RDW 13.9 (11.5-15.5) % Plt Count 275 (150-450) k/uL MPV 7.7 Neutrophils % 89 % Lymphocytes % 3 % Monocytes % 6 % Eosinophils % 1 % Basophils % 0 % Neutrophils # 14.1 H (1.3-7.7) k/uL Lymphocytes # 0.5 L (1.0-4.8) k/uL Monocytes # 1.0 (0-1.0) k/uL Eosinophils # 0.1 (0-0.7) k/uL Basophils # 0.0 (0-0.2) k/uL Sodium 136 L (137-145) mmol/L Potassium 4.7 (3.5-5.1) mmol/L Chloride 106 (98-107) mmol/L Carbon Dioxide 20 L (22-30) mmol/L Anion Gap 10 mmol/L BUN 20 (9-20) mg/dL Creatinine 1.41 H (0.66-1.25) mg/dL Est GFR (CKD-EPI)AfAm 53 (>60 ml/min/1.73 sqM) Est GFR (CKD-EPI)NonAf 46 (>60 ml/min/1.73 sqM) Glucose 105 H (74-99) mg/dL Calcium 8.4 (8.4-10.2) mg/dL Magnesium 2.2 (1.6-2.3) mg/dL Total Bilirubin 0.9 (0.2-1.3) mg/dL AST 23 (17-59) U/L ALT 12 (4-49) U/L Alkaline Phosphatase 77 (38-126) U/L Total Protein 6.5 (6.3-8.2) g/dL Albumin 3.7 (3.5-5.0) g/dL Urine Color Yellow Urine Appearance Turbid (Clear) Urine pH 7.5 (5.0-8.0) Ur Specific Adams 1.021 (1.001-1.035) Urine Protein 1+ H (Negative) Urine Glucose (UA) Negative (Negative) Urine Ketones Negative (Negative) Urine Blood Small H (Negative) Urine Nitrite Negative (Negative) Urine Bilirubin Negative (Negative) Urine Urobilinogen <2.0 (<2.0) mg/dL Ur Leukocyte Esterase Large H (Negative) Urine RBC 13 H (0-5) /hpf Urine WBC 171 H (0-5) /hpf Urine WBC Clumps Many H (None) /hpf Ur Squamous Epith Cells 10 H (0-4) /hpf Urine Bacteria Many H (None) /hpf Urine Mucus Rare H (None) /hpf Influenza Type A (PCR) (Not Detectd) Influenza Type B (PCR) (Not Detectd) RSV (PCR) (Not Detectd) SARS-CoV-2 (PCR) (Not Detectd) 11/15/23 Range/Units 23:16 WBC (3.8-10.6) k/uL RBC (4.30-5.90) m/uL Hgb (13.0-17.5) gm/dL Hct (39.0-53.0) % MCV (80.0-100.0) fL MCH (25.0-35.0) pg MCHC (31.0-37.0) g/dL RDW (11.5-15.5) % Plt Count (150-450) k/uL MPV Neutrophils % % Lymphocytes % % Monocytes % % Eosinophils % % Basophils % % Neutrophils # (1.3-7.7) k/uL Lymphocytes # (1.0-4.8) k/uL Monocytes # (0-1.0) k/uL Eosinophils # (0-0.7) k/uL Basophils # (0-0.2) k/uL Sodium (137-145) mmol/L Potassium (3.5-5.1) mmol/L Chloride (98-107) mmol/L Carbon Dioxide (22-30) mmol/L Anion Gap mmol/L BUN (9-20) mg/dL Creatinine (0.66-1.25) mg/dL Est GFR (CKD-EPI)AfAm (>60 ml/min/1.73 sqM) Est GFR (CKD-EPI)NonAf (>60 ml/min/1.73 sqM) Glucose (74-99) mg/dL Calcium (8.4-10.2) mg/dL Magnesium (1.6-2.3) mg/dL Total Bilirubin (0.2-1.3) mg/dL AST (17-59) U/L ALT (4-49) U/L Alkaline Phosphatase (38-126) U/L Total Protein (6.3-8.2) g/dL Albumin (3.5-5.0) g/dL Urine Color Urine Appearance (Clear) Urine pH (5.0-8.0) Ur Specific Adams (1.001-1.035) Urine Protein (Negative) Urine Glucose (UA) (Negative) Urine Ketones (Negative) Urine Blood (Negative) Urine Nitrite (Negative) Urine Bilirubin (Negative) Urine Urobilinogen (<2.0) mg/dL Ur Leukocyte Esterase (Negative) Urine RBC (0-5) /hpf Urine WBC (0-5) /hpf Urine WBC Clumps (None) /hpf Ur Squamous Epith Cells (0-4) /hpf Urine Bacteria (None) /hpf Urine Mucus (None) /hpf Influenza Type A (PCR) Not Detected (Not Detectd) Influenza Type B (PCR) Not Detected (Not Detectd) RSV (PCR) Not Detected (Not Detectd) SARS-CoV-2 (PCR) Not Detected (Not Detectd) Disposition <Judy Torres - Last Filed: 11/15/23 13:59> Time of Disposition: 00:54 <Tiffany Galdamez - Last Filed: 11/16/23 04:06> Clinical Impression: UTI (urinary tract infection), Generalized weakness Disposition: ADMITTED IP TO THIS HOSP Condition: Fair
[2023-11-15 14:49] LABS: Basophils % (A) 0 %; Eosinophils # (A) 0.1 k/uL (0-0.7); Eosinophils % (A) 1 %; HCT 42.6 % (39.0-53.0); HGB 13.7 gm/dL (13.0-17.5); Lymphocytes # (A) 0.5 k/uL (1.0-4.8); Lymphocytes % (A) 3 %; MCH 29.4 pg (25.0-35.0); MCHC 32.1 g/dL (31.0-37.0); MCV 91.5 fL (80.0-100.0); Mean Platelet Volume 7.7; Monocytes % (A) 6 %; Neutrophils # (A) 14.1 k/uL (1.3-7.7); Neutrophils % (A) 89 %; Platelet Count 275 k/uL (150-450); RBC 4.65 m/uL (4.30-5.90); RDW 13.9 % (11.5-15.5); WBC 15.8 k/uL (3.8-10.6)
[2023-11-15 15:09] LABS: ALT 12 U/L (4-49); AST 23 U/L (17-59); African American GFR (CKD) 53 (>60 ml/min/1.73 sqM); Albumin 3.7 g/dL (3.5-5.0); Alkaline Phosphatase 77 U/L (38-126); Anion Gap 10 mmol/L; Blood Urea Nitrogen 20 mg/dL (9-20); Calcium 8.4 mg/dL (8.4-10.2); Carbon Dioxide 20 mmol/L (22-30); Chloride 106 mmol/L (98-107); Glucose 105 mg/dL (74-99); Magnesium 2.2 mg/dL (1.6-2.3); Non-African American GFR(CKD) 46 (>60 ml/min/1.73 sqM); Potassium 4.7 mmol/L (3.5-5.1); Sodium 136 mmol/L (137-145); Total Bilirubin 0.9 mg/dL (0.2-1.3); Total Protein 6.5 g/dL (6.3-8.2)
[2023-11-15] MEDS: SODIUM CHLORIDE 0.9% 500 ML 500 ML IV ONE (21:21)
[2023-11-15] MEDS: ACETAMINOPHEN TAB 325 MG TAB PO STA (21:22)
[2023-11-15 23:26] LABS: Appearance,Urine Turbid (Clear); Bacteria,Urine Many /hpf; Bilirubin,Urine Negative (Negative); Blood,Urine Small (Negative); Color,Urine Yellow; Glucose,Urine (UA) Negative (Negative); Ketones,Urine Negative (Negative); Leukocyte Esterase,Urine Large (Negative); Mucus,Urine Rare /hpf; Nitrite,Urine Negative (Negative); PH, Urine 7.5 (5.0-8.0); Protein,Urine 1+ (Negative); RBC,Urine 13 /hpf (0-5); Specific Gravity,Urine 1.021 (1.001-1.035); Squamous Epithelial Cell,Urine 10 /hpf (0-4); Urobilinogen,Urine <2.0 mg/dL (<2.0); WBC,Urine 171 /hpf (0-5)
[2023-11-16] MEDS ORDERED: ONDANSETRON 4 MG/2 ML VIAL IVP PRN (00:51)
[2023-11-16] MEDS ORDERED: NALOXONE 0.4 MG/ML 1 ML VIAL IV PRN (00:51)
--- NOTE | 2023-11-16 02:09 | XR ---
EXAMINATION TYPE: XR KUB DATE OF EXAM: 11/15/2023 9:15 PM CLINICAL INDICATION:Male, 83 years old with history of abdominal distention; PHH COMPARISON: None. TECHNIQUE: Supine radiographic view/s of the abdomen/pelvis obtained. FINDINGS: Radiographic evaluation is limited, KUB was obtained on 5 cassettes to include the entire area. There is generalized under penetration related to body habitus. Distal ends of pacemaker leads are seen terminating over the region of the RA and RV. Cardiomegaly farfan ggested. There seems to be scattered gas in small bowel loops without significant distention seen. Mild/modera te stool and some gas throughout the colon including the rectum. No suggestion of pneumoperitoneum on this supine exam. Clips in the right upper quadrant suggest prior cholecystectomy. No clearly pathologic calcifications are seen. Relatively smooth calcific densities within the pelvis likely relate to phleboliths. A couple vague rounded and oval densities over the left midabdomen are indeterminate; these could ref lect bowel contents versus nonspecific soft tissue calcifications. No acute osseous abnormality is seen. Moderate degenerative changes of the hips and spine. IMPRESSION: * Overall nonspecific, likely nonobstructive bowel gas pattern. * Mild to moderate colonic stool present through the rectum. * If concern persists, consider follow-up radiographs and/or CT.
[2023-11-16] MEDS: cefTRIAXone IN SWFI 1,000 MG/10 ML SYRINGE IVP ONE (04:10)
[2023-11-16] MEDS: ACETAMINOPHEN TAB 325 MG TAB PO PRN (09:23)
[2023-11-16] MEDS: amLODIPine 5 MG TAB PO SCH (10:58)
[2023-11-16] MEDS: polyethylene glycoL 3350 17 GM POWD.PACK PO SCH (12:01)
[2023-11-16 12:18] LABS: INR 1.6 (<1.2); Prothrombin Time 16.3 sec (10.0-12.5)
[2023-11-16] MEDS: SODIUM CHLORIDE 0.9% 1,000 ML IV SCH (12:22)
--- NOTE | 2023-11-16 12:56 | P.HPIM ---
History of Present Illness H&P Date: 11/16/23 Chief Complaint: Weakness * 83-year-old gentleman with past medical history significant for atrial fibrillation, s/p pacemaker in place, history of degenerative disease of spi ne, cholecystectomy, presents to the emergency department with complaints of frequency, urgency while passing urine as well as right-sided flank pain. Patient stated symptom onset was 24 hours prior to arrival with profound weakness unable to do activities of daily living. Patient also complained of associated abdominal distention. He denies fever, chills, chest pain, nausea, vomiting, shortness of breath. * Workup in ER included x-ray KUB which showed nonspecific bowel gas pattern, mild to moderate colon stool noted * CBC showed WBC of 15.8 hemoglobin 13.7 platelet count of 275 * Serum chemistry showed sodium 136 potassium 4.7 carbon dioxide 20 BUN 20 creatinine 1.41 * Urinalysis shows large amount of leukocyte esterase WBC, many bacteria * Patient tested negative for RSV influenza and COVID * Patient to be admitted to medical floor for symptomatic urinary tract infection REVIEW OF SYSTEMS: Frequency, urgency, flank pain, abdominal CONSTITUTIONAL: No fever, no malaise, no fatigue. HEENT: No recent visual problems or hearing problems. Denied any sore throat. CARDIOVASCULAR: No chest pain, orthopnea, PND, no palpitations, no syncope. PULMONARY: No shortness of breath, no cough, no hemoptysis. GASTROINTESTINAL: Frequency, urgency, flank pain, abdominal NEUROLOGICAL: No headaches, no weakness, no numbness. HEMATOLOGICAL: Denies any bleeding or petechiae. GENITOURINARY: Denies any burning micturition, frequency, or urgency. MUSCULOSKELETAL/RHEUMATOLOGICAL: Denies any joint pain, swelling, or any muscle pain. ENDOCRINE: Denies any polyuria or polydipsia. PHYSICAL EXAMINATION: GENERAL: The patient is alert and oriented x3, appearance HEENT: Pupils are round and equally reacting to light. EOMI. No scleral icterus. CARDIOVASCULAR: S1 and S2 present. No murmurs, rubs, or gallops. PULMONARY: Chest is clear to auscultation, no wheezing or crackles. ABDOMEN: Soft, nontender, nondistended, normoactive bowel sounds. No palpable organomegaly. MUSCULOSKELETAL: No joint swelling or deformity. EXTREMITIES: No cyanosis, clubbing, or pedal edema. NEUROLOGICAL: Gross neurological examination did not reveal any focal deficits. SKIN: No rashes. Assessment and plan * Urinary tract infection * Chronic atrial fibrillation * Chronic kidney disease stage IIIb * Hypertension * Hyperlipidemia * On chronic anticoagulation * In regards to urinary tract infection, continue patient on IV Rocephin, follow -up on urine cultures continue with fluid resuscitation * In regards to atrial fibrillation, continue atenolol, continue Coumadin pharmacy to dose follow-up on INR * History of hypertension continue patient on lisinopril, Lasix on hold continue fluid resuscitation * In regards to chronic anticoagulation pharmacy consulted for adjusting dose of Coumadin * Status is full code Past Medical History Past Medical History: Atrial Fibrillation, Cancer, CVA/TIA, GERD/Reflux, Hyperlipidemia, Hypertension, Prostate Disorder Additional Past Medical History / Comment(s): 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 dry skin on arms, numbness in last 2 fingers to left hand. History of Any Multi-Drug Resistant Organisms: None Reported Past Surgical History: Cholecystectomy, Hernia Repair, Orthopedic Surgery, Pacemaker Additional Past Surgical History / Comment(s): cervical fusion, lithrotripsy, Past Anesthesia/Blood Transfusion Reactions: No Reported Reaction Additional Past Anesthesia/Blood Transfusion Reaction / Comment(s): Pt has never recieved blood. Type of Cardiac Device: Permanent Pacemaker Device Placement Date:: 2013 Past Psychological History: No Psychological Hx Reported Smoking Status: Former smoker Past Alcohol Use History: None Reported Past Drug Use History: None Reported - Past Family History Father Family Medical History: Diabetes Mellitus Mother Family Medical History: Osteoarthritis (OA) Additional Family Medical History / Comment(s): arthritis Medications and Allergies Home Medications Medication Instructions Recorded Confirmed Type Simvastatin [Zocor] 20 mg PO HS 08/02/14 11/16/23 History Vitamin E (Dl,Tocopheryl Acet) 400 unit PO DAILY 08/03/14 11/16/23 History [Vitamin E (400 Iu = 180 mg)] atenoloL [Tenormin] 25 mg PO BID 08/03/14 11/16/23 History lisinopriL [Zestril] 10 mg PO DAILY 03/23/19 11/16/23 History Acetaminophen [Tylenol] 1,000 mg PO Q6H 05/30/21 11/16/23 History Warfarin [Coumadin] 5 mg PO MOWEFR@2100 05/30/21 11/16/23 History amLODIPine [Norvasc] 5 mg PO DAILY 05/30/21 11/16/23 History Furosemide [Lasix] 20 mg PO DAILY 11/29/22 11/16/23 History Warfarin [Coumadin] 2.5 mg PO SUTUTHSA@2100 11/29/22 11/16/23 History Allergies Allergy/AdvReac Type Severity Reaction Status Date / Time No Known Allergies Allergy Verified 11/16/23 09:01 Physical Exam Vitals: Vital Signs Temp Pulse Resp BP Pulse Ox 11/16/23 09:23 66 22 127/69 95 11/16/23 08:12 60 18 115/50 95 11/16/23 07:11 60 16 111/68 92 L 11/16/23 04:11 60 16 118/63 92 L 11/16/23 03:29 99.7 F H 60 18 118/60 91 L 11/15/23 23:34 60 20 119/62 95 11/15/23 21:01 67 20 116/76 95 11/15/23 13:56 97.7 F 68 18 109/60 94 L Results CBC & Chem 7: 11/15/23 14:39 11/15/23 14:39 Labs: Abnormal Lab Results - Last 24 Hours (Table) 11/15/23 11/15/23 11/15/23 Range/Units 14:39 14:39 23:00 WBC 15.8 H (3.8-10.6) k/uL Neutrophils # 14.1 H (1.3-7.7) k/uL Lymphocytes # 0.5 L (1.0-4.8) k/uL Sodium 136 L (137-145) mmol/L Carbon Dioxide 20 L (22-30) mmol/L Creatinine 1.41 H (0.66-1.25) mg/dL Glucose 105 H (74-99) mg/dL Urine Protein 1+ H (Negative) Urine Blood Small H (Negative) Ur Leukocyte Esterase Large H (Negative) Urine RBC 13 H (0-5) /hpf Urine WBC 171 H (0-5) /hpf Urine WBC Clumps Many H (None) /hpf Ur Squamous Epith Cells 10 H (0-4) /hpf Urine Bacteria Many H (None) /hpf Urine Mucus Rare H (None) /hpf
[2023-11-16] MEDS: SODIUM CHLORIDE 0.9% 500 ML 500 ML IV ONE (14:13)
[2023-11-16] MEDS: ACETAMINOPHEN IV (For NPO) 1,000 MG in EMPTY BAG 1 BAG IVPB STA (14:34)
[2023-11-16] MEDS: atenoloL 25 MG TAB PO SCH (20:55)
[2023-11-16] MEDS: ATORVASTATIN 10 MG TAB PO SCH (20:55)
[2023-11-16] MEDS: WARFARIN 5 MG TAB PO ONE (20:55)
[2023-11-16] MEDS: ACETAMINOPHEN TAB 500 MG TAB PO PRN (20:57)
[2023-11-17] MEDS: lisinopriL 10 MG TAB PO SCH (08:15)
[2023-11-17] MEDS: VITAMIN E (DL,TOCOPHERYL ACET) 400 UNIT (180 MG) CAP PO SCH (08:17)
[2023-11-17 09:51] LABS: Basophils # (A) 0.02 X 10*3/uL (0.00-0.10); Basophils % (A) 0.1 %; Eosinophils # (A) 0 X 10*3/uL (0.04-0.35); Eosinophils % (A) 0 %; HCT 36.5 % (39.6-50.0); HGB 11.7 g/dL (13.0-17.0); Lymphocytes # (A) 0.45 X 10*3/uL (0.90-5.00); Lymphocytes % (A) 2.8 %; MCHC 32.1 g/dL (32.0-37.0); MCV 90.3 FL (80.0-97.0); Mean Platelet Volume 9.9 FL (9.5-12.2); Monocytes # (A) 1.41 X 10*3/uL (0.20-1.00); Monocytes % (A) 8.7 %; NRBC Per 100 WBC 0 X 10*3/uL (0.00-0.01); Neutrophils # (A) 14.14 X 10*3/uL (1.80-7.70); Neutrophils % (A) 87.7 %; Platelet Count 221 X 10*3/uL (140-440); RBC 4.04 X 10*6/uL (4.40-5.60); RDW 14.6 % (11.5-14.5); WBC 16.13 X 10*3/uL (4.50-10.00)
[2023-11-17 09:55] LABS: BUN/Creat Ratio 15.62 Ratio (12.00-20.00); Blood Urea Nitrogen 32.8 mg/dL (9.0-27.0); Calcium 7.7 mg/dL (8.7-10.3); Carbon Dioxide 17.7 mmol/L (21.6-31.8); Chloride 106 mmol/L (96-109); Glucose 110 mg/dL (70-110); Potassium 4.1 mmol/L (3.5-5.5); Sodium 136 mmol/L (135-145)
--- NOTE | 2023-11-17 11:44 | P.NPCON ---
History of Present Illness - Reason for Consult Consult date: 11/17/23 - Chief Complaint Weakness - History of Present Illness 83-year-old male who presents emergency department chief complaint of weakness in addition to right-sided lumbar back pain that began yesterday evening. Patient also admits to dysuria and increase in frequency and urgency. He denies fevers, nausea, vomiting, abdominal pain or diarrhea. Patient has a history of kidney stones and lithotripsy procedure. Appetite has been good. Vital signs are stable. General: No acute distress. HEENT: Head exam is unremarkable. LUNGS: No audible rhonchi or wheezes. HEART: Rate and Rhythm are regular. ABDOMEN: Nontender. EXTREMITITES: no edema. Review of Systems Constitutional: Reports as per HPI Past Medical History Past Medical History: Atrial Fibrillation, Cancer, CVA/TIA, GERD/Reflux, Hyperlipidemia, Hypertension, Prostate Disorder Additional Past Medical History / Comment(s): 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 dry skin on arms, numbness in last 2 fingers to left hand. History of Any Multi-Drug Resistant Organisms: None Reported Past Surgical History: Cholecystectomy, Hernia Repair, Orthopedic Surgery, Pacemaker Additional Past Surgical History / Comment(s): cervical fusion, lithrotripsy, Past Anesthesia/Blood Transfusion Reactions: No Reported Reaction Additional Past Anesthesia/Blood Transfusion Reaction / Comment(s): Pt has never recieved blood. Type of Cardiac Device: Permanent Pacemaker Device Placement Date:: 2013 Past Psychological History: No Psychological Hx Reported Smoking Status: Former smoker Past Alcohol Use History: None Reported Past Drug Use History: None Reported - Past Family History Father Family Medical History: Diabetes Mellitus Mother Family Medical History: Osteoarthritis (OA) Additional Family Medical History / Comment(s): arthritis Medications and Allergies Home Medications Medication Instructions Recorded Confirmed Type Simvastatin [Zocor] 20 mg PO HS 08/02/14 11/16/23 History Vitamin E (Dl,Tocopheryl Acet) 400 unit PO DAILY 08/03/14 11/16/23 History [Vitamin E (400 Iu = 180 mg)] atenoloL [Tenormin] 25 mg PO BID 08/03/14 11/16/23 History lisinopriL [Zestril] 10 mg PO DAILY 03/23/19 11/16/23 History Acetaminophen [Tylenol] 1,000 mg PO Q6H 05/30/21 11/16/23 History Warfarin [Coumadin] 5 mg PO MOWEFR@209905/30/21 11/16/23 History amLODIPine [Norvasc] 5 mg PO DAILY 05/30/21 11/16/23 History Furosemide [Lasix] 20 mg PO DAILY 11/29/22 11/16/23 History Warfarin [Coumadin] 2.5 mg PO SUTUTHSA@209911/29/22 11/16/23 History Allergies Allergy/AdvReac Type Severity Reaction Status Date / Time No Known Allergies Allergy Verified 11/16/23 09:01 Physical Exam Vitals: Vital Signs Temp Pulse Pulse Resp BP BP Pulse Ox 11/17/23 09:49 97.5 F L 11/17/23 07:52 100 F H 54 L 17 111/60 92 L 11/17/23 02:00 100.0 F H 47 L 16 105/50 91 L 11/16/23 20:00 97.9 F 61 16 117/67 91 L 11/16/23 17:56 98.2 F 56 L 19 99/60 93 L 11/16/23 16:00 99 F 59 L 18 114/52 93 L 11/16/23 15:05 61 18 92/55 94 L 11/16/23 14:08 99.9 F H 97/64 11/16/23 13:33 62 18 98/53 94 L 11/16/23 12:00 68 18 96 Intake and Output 11/16/23 11/17/23 11/17/23 22:59 06:59 14:59 Intake Total 590 240 Balance 590 240 Intake: Oral 590 240 Other: Voiding Method Diaper Incontinent # Voids 1 2 Results - Lab Results Most recent lab results Calcium 7.7 mg/dL (8.7-10.3) L 11/17/23 04:19 Magnesium 2.2 mg/dL (1.6-2.3) 11/15/23 14:39 11/17/23 04:19 11/17/23 04:19 Assessment and Plan Plan: Assessment: 1. PARK likely ATN vs Prerenal along with ACEi use. History nephrolithiasis. UA concerning for UTI. Presented with creatinine 1.4, worsening to 2.1 today. 2. CKD Stage 3a baseline creatinine 1.4 mg/dL. 3. Acute metabolic acidosis, likely related to PARK 4. Weakness with acute UTI 5. Essential HTN 6. History nephrolithiasis requiring lithotripsy. Plan: Agree with starting IVF normal saline 75cc/hr. Check PVR, strict I/O's Given left flank pain check renal US rule out hydronephrosis May need CT stone protocol rule out acute nephrolithiasis Avoid nephrotoxins Hold Lisniopril Daily BMP
[2023-11-17] MEDS: SODIUM CHLORIDE 0.9% 1,000 ML IV SCH (13:01)
[2023-11-17 13:40] LABS: INR 1.37 sec (0.93-1.11); Prothrombin Time 14.5 sec (9.9-11.9)
--- NOTE | 2023-11-17 14:23 | P.PN ---
Subjective Progress Note Date: 11/17/23 * 83-year-old gentleman with past medical history significant for atrial fibrillation, s/p pacemaker in place, history of degenerative disease of spine, cholecystectomy, presents to the emergency department with complaints of frequency, urgency while passing urine as well as right-sided flank pain. Patient stated symptom onset was 24 hours prior to arrival with profound weakness unable to do activities of daily living. Patient also complained of associated abdominal distention. He denies fever, chills, chest pain, nausea, vomiting, shortness of breath. * Workup in ER included x-ray KUB which showed nonspecific bowel gas pattern, mild to moderate colon stool noted * CBC showed WBC of 15.8 hemoglobin 13.7 platelet count of 275 * Serum chemistry showed sodium 136 potassium 4.7 carbon dioxide 20 BUN 20 creatinine 1.41 * Urinalysis shows large amount of leukocyte esterase WBC, many bacteria * Patient tested negative for RSV influenza and COVID * Patient to be admitted to medical floor for symptomatic urinary tract infection * 11/17/23 >> patient seen and evaluated bedside, blood work reviewed WBC 16.1, creatinine of 2.1, lisinopril discontinued, will consult nephrology, continue IV antibiotics. Noted to have bradycardia, updated parameters for atenolol, renal ultrasound ordered nephrology consulted appreciate recommendations. Creatinine trending up to be monitored PHYSICAL EXAMINATION: GENERAL: The patient is alert and oriented x3, appearance HEENT: Pupils are round and equally reacting to light. EOMI. No scleral icterus. CARDIOVASCULAR: S1 and S2 present. No murmurs, rubs, or gallops. PULMONARY: Chest is clear to auscultation, no wheezing or crackles. ABDOMEN: Soft, nontender, nondistended, normoactive bowel sounds. No palpable organomegaly. MUSCULOSKELETAL: No joint swelling or deformity. EXTREMITIES: No cyanosis, clubbing, or pedal edema. NEUROLOGICAL: Gross neurological examination did not reveal any focal deficits. SKIN: No rashes. Assessment and plan * Urinary tract infection * Chronic atrial fibrillation * Chronic kidney disease stage IIIb * Hypertension * Hyperlipidemia * On chronic anticoagulation * In regards to urinary tract infection, continue patient on IV Rocephin day 2 , follow-up on urine cultures continue with fluid resuscitation * In regards to atrial fibrillation, continue atenolol, monitor for bradycardia continue Coumadin pharmacy to dose follow-up on INR * History of hypertension , lisinopril, Lasix on hold, continue fluid resuscitation * In regards to chronic anticoagulation pharmacy consulted for adjusting dose of Coumadin Objective - Vital Signs Vital signs: Vital Signs Temp 97.5 F L 11/17/23 09:49 Pulse 54 L 11/17/23 07:52 Resp 17 11/17/23 07:52 BP 111/60 11/17/23 07:52 Pulse Ox 92 L 11/17/23 07:52 FiO2 Intake & Output 11/16/23 11/17/23 11/17/23 18:59 06:59 18:59 Intake Total 590 240 Balance 590 240 Weight 131.542 kg Intake: Oral 590 240 Other: Voiding Method Diaper Incontinent # Voids 1 2 - Labs CBC & Chem 7: 11/17/23 04:19 11/17/23 04:19 Labs: Abnormal Lab Results - Last 24 Hours (Table) 11/16/23 11/17/23 11/17/23 Range/Units 11:48 04:19 04:19 WBC 16.13 H (4.50-10.00) X 10*3/uL RBC 4.04 L (4.40-5.60) X 10*6/uL Hgb 11.7 L (13.0-17.0) g/dL Hct 36.5 L (39.6-50.0) % RDW 14.6 H (11.5-14.5) % Immature Gran # 0.11 H (0.00-0.04) X 10*3/uL Neutrophils # 14.14 H (1.80-7.70) X 10*3/uL Lymphocytes # 0.45 L (0.90-5.00) X 10*3/uL Monocytes # 1.41 H (0.20-1.00) X 10*3/uL Eosinophils # 0 L (0.04-0.35) X 10*3/uL PT 16.3 H (10.0-12.5) sec INR 1.6 H (<1.2) Carbon Dioxide 17.7 L (21.6-31.8) mmol/L Anion Gap 12.30 H (4.00-12.00) mmol/L BUN 32.8 H (9.0-27.0) mg/dL Creatinine 2.1 H (0.6-1.5) mg/dL Est GFR (CKD-EPI) 31 L (>=60) Calcium 7.7 L (8.7-10.3) mg/dL Microbiology - Last 24 Hours (Table) 11/15/23 23:00 Urine Culture - Final Urine,Voided
[2023-11-17] MEDS: MAG HYDROX/AL HYDROX/SIMETH 30 ML CUP PO PRN (16:23)
[2023-11-17] MEDS: WARFARIN 5 MG TAB PO ONE (20:22)
[2023-11-17] MEDS: NYSTATIN 100,000 UNIT/GM POWD 15 GM TOPICAL SCH (20:22)
[2023-11-17] MEDS: ZINC OXIDE PASTE (Z-GUARD) 1 APPLIC TOPICAL SCH (20:22)
--- NOTE | 2023-11-18 01:32 | US ---
EXAMINATION TYPE: US kidneys/renal and bladder DATE OF EXAM: 11/17/2023 COMPARISON: 11/15/2023 KUB CLINICAL INDICATION: Male, 83 years old with history of PARK; PARK EXAM MEASUREMENTS: Right Kidney: 12.3 x 6.8 x 4.9 cm Left Kidney: 13.3 x 7.2 x 5.1 cm Technical limitations due to patient's body habitus and overlying bowel gas Right Kidney: lobulated contour Left Kidney: stones = 1.2 x 1.5cm and hydronephrosis Bladder: not fully distended Bilateral Jets seen: no IMPRESSION: 1. Bladder not fully distended, unremarkable as seen. 2. Right kidney shows a lobulated contour without evidence for shadowing calculi or hydronephrosis. 3. Left kidney shows slightly lobulated contour with evidence of moderate hydronephrosis. There are at least two shadowing intrarenal calculi seen, measuring 1.2 cm and 1.5 cm.
[2023-11-18 10:37] LABS: BUN/Creat Ratio 18.37 Ratio (12.00-20.00); Blood Urea Nitrogen 34.9 mg/dL (9.0-27.0); Calcium 7.5 mg/dL (8.7-10.3); Carbon Dioxide 17.9 mmol/L (21.6-31.8); Chloride 105 mmol/L (96-109); Glucose 105 mg/dL (70-110); INR 1.32 sec (0.93-1.11); Potassium 4.6 mmol/L (3.5-5.5); Sodium 138 mmol/L (135-145)
[2023-11-18 11:01] LABS: HCT 34.4 % (39.6-50.0); HGB 11.2 g/dL (13.0-17.0); MCH 29.4 pg (27.0-32.0); MCHC 32.6 g/dL (32.0-37.0); MCV 90.3 FL (80.0-97.0); Mean Platelet Volume 10.1 FL (9.5-12.2); NRBC Per 100 WBC 0 X 10*3/uL (0.00-0.01); Platelet Count 229 X 10*3/uL (140-440); RBC 3.81 X 10*6/uL (4.40-5.60); RDW 14.7 % (11.5-14.5); WBC 11.32 X 10*3/uL (4.50-10.00)
--- NOTE | 2023-11-18 12:34 | P.PN ---
Subjective Progress Note Date: 11/18/23 * 83-year-old gentleman with past medical history significant for atrial fibrillation, s/p pacemaker in place, history of degenerative disease of spine, cholecystectomy, presents to the emergency department with complaints of frequency, urgency while passing urine as well as right-sided flank pain. Patient stated symptom onset was 24 hours prior to arrival with profound weakness unable to do activities of daily living. Patient also complained of associated abdominal distention. He denies fever, chills, chest pain, nausea, vomiting, shortness of breath. * Workup in ER included x-ray KUB which showed nonspecific bowel gas pattern, mild to moderate colon stool noted * CBC showed WBC of 15.8 hemoglobin 13.7 platelet count of 275 * Serum chemistry showed sodium 136 potassium 4.7 carbon dioxide 20 BUN 20 creatinine 1.41 * Urinalysis shows large amount of leukocyte esterase WBC, many bacteria * Patient tested negative for RSV influenza and COVID * Patient to be admitted to medical floor for symptomatic urinary tract infection * 11/17/23 >> patient seen and evaluated bedside, blood work reviewed WBC 16.1, creatinine of 2.1, lisinopril discontinued, will consult nephrology, continue IV antibiotics. Noted to have bradycardia, updated parameters for atenolol, renal ultrasound ordered nephrology consulted appreciate recommendations. Creatinine trending up to be monitored * 11/18/23 : Patient seen and evaluated at bedside, appreciate input from nephrology, continue with postvoid residuals, renal ultrasound shows no evidence of hydronephrosis, intrarenal calculi noted. Follow-up on creatinine noted to have significant improvement creatinine 1.9. CT abdomen pelvis PHYSICAL EXAMINATION: GENERAL: The patient is alert and oriented x3, ill appearance HEENT: Pupils are round and equally reacting to light. EOMI. No scleral icterus. CARDIOVASCULAR: S1 and S2 present. No murmurs, rubs, or gallops. PULMONARY: Chest is clear to auscultation, no wheezing or crackles. ABDOMEN: Soft, nontender, nondistended, normoactive bowel sounds. No palpable organomegaly. MUSCULOSKELETAL: No joint swelling or deformity. EXTREMITIES: Trace lower extremity edema noted NEUROLOGICAL: Gross neurological examination did not reveal any focal deficits. SKIN: No rashes. Assessment and plan * Urinary tract infection * Chronic atrial fibrillation * Chronic kidney disease stage IIIb * Hypertension * Hyperlipidemia * On chronic anticoagulation * In regards to urinary tract infection, continue patient on IV Rocephin day 3 , follow-up on urine cultures continue with fluid resuscitation, CT abdomen pelvis ordered * In regards to atrial fibrillation, continue atenolol, monitor for bradycardia continue Coumadin pharmacy to dose follow-up on INR * History of hypertension , lisinopril, Lasix on hold, continue fluid resuscitation * In regards to chronic anticoagulation pharmacy consulted for adjusting dose of Coumadin Objective - Vital Signs Vital signs: Vital Signs Temp 99.0 F 11/18/23 07:19 Pulse 52 L 11/18/23 08:52 Resp 16 11/18/23 07:19 BP 102/62 11/18/23 07:19 Pulse Ox 93 L 11/18/23 07:19 FiO2 Intake & Output 11/17/23 11/18/23 11/18/23 18:59 06:59 18:59 Intake Total 240 Balance 240 Intake: Oral 240 Other: Voiding Method Diaper Diaper Incontinent Incontinent # Voids 1 3 # Bowel Movements 2 - Labs CBC & Chem 7: 11/18/23 06:02 11/18/23 06:02 Labs: Abnormal Lab Results - Last 24 Hours (Table) 11/17/23 Range/Units 04:19 PT 14.5 H (9.9-11.9) sec INR 1.37 H (0.93-1.11) sec Microbiology - Last 24 Hours (Table) 11/16/23 03:55 Blood Culture - Preliminary Blood 11/16/23 03:40 Blood Culture - Preliminary Blood 11/15/23 23:00 Urine Culture - Final Urine,Voided
--- NOTE | 2023-11-18 12:48 | CT ---
EXAMINATION TYPE: CT renal stones wo con DATE OF EXAM: 11/18/2023 COMPARISON: 03/23/2019 INDICATION: RENAL STONES EVAL DLP: 2452.7 mGycm, Automated exposure control for dose reduction was used. CONTRAST: 0 mL of Isovue 300. Study performed without Oral Contrast TECHNIQUE: Axial images were obtained from above the diaphragm to the pubic rami in the axial plane a t 5 mm thick sections. Reconstructed images are reviewed on the computer in the coronal plane. FINDINGS: Limited CT sections are obtained the lung bases. Bibasilar atelectasis present. A minimal right pleu ral effusion is present. Heart size is enlarged small pericardial effusion may be present.. CT ABDOMEN: Liver: Multiple cysts are within the left lobe liver. Spleen: Normal Pancreas: Normal Adrenal glands: The adrenal glands are normal. Gallbladder: Surgically absent Kidneys: No masses are evident. There is moderate to marked left hydronephrosis with hydroureter. Lef t Hydroureter extends to a 0.4 x 0.9 cm obstructing renal stone within the mid left hemipelvis distal ureter has a more normal caliber. No cysts are present. There are multiple nonobstructing cortical renal calcifications in the left kidney. Cortical renal calcifications are within the lateral right k idney. Aorta: Vascular calcification is within the aorta. Inferior vena cava: Normal. CT PELVIS: Loops of bowel within the abdomen and pelvis are normal. Scattered diverticuli are within visualized loops of colon. The study is without oral contrast limiting bowel evaluation. Appendix: Not identified. No dilated tubular structure or inflammatory changes evident. Urinary bladder: Normal. Genitourinary structures: Prostate is normal Osseous structures: No suspicious lytic or sclerotic lesions. IMPRESSION: 1. Obstructing 0.9 x 0.4 cm distal left ureteral stone within the left mid pelvis. This causes moder ate to marked left hydronephrosis and hydroureter. 2. Nonobstructing cortical renal calcifications present bilaterally. 3. Cardiomegaly with possible small pericardial effusion. 4. Small right pleural effusion
--- NOTE | 2023-11-18 13:54 | P.PN ---
Subjective patient is seen for follow-up for acute kidney injury. Maintained on IV fluids Renal function has improved. Creatinine is down to 1.9 today. Patient is been voiding, in brief Objective - Vital Signs Vital signs: Vital Signs Temp 97.9 F 11/18/23 11:45 Pulse 57 L 11/18/23 11:45 Resp 16 11/18/23 11:45 BP 101/54 11/18/23 11:45 Pulse Ox 96 11/18/23 11:45 FiO2 Intake & Output 11/17/23 11/18/23 11/18/23 18:59 06:59 18:59 Intake Total 240 Balance 240 Intake: Oral 240 Other: Voiding Method Diaper Diaper Incontinent Incontinent # Voids 1 3 # Bowel Movements 2 2 - Exam patient is awake, comfortable, no acute distress Examination of the heart S1 and S2 Examination of the lungs bilateral breath sounds are heard Abdomen is soft nontender Examination of lower extremities shows no significant edema - Labs CBC & Chem 7: 11/18/23 06:02 11/18/23 06:02 Labs: Abnormal Lab Results - Last 24 Hours (Table) 11/18/23 11/18/23 11/18/23 Range/Units 06:02 06:02 06:02 WBC 11.32 H (4.50-10.00) X 10*3/uL RBC 3.81 L (4.40-5.60) X 10*6/uL Hgb 11.2 L (13.0-17.0) g/dL Hct 34.4 L (39.6-50.0) % RDW 14.7 H (11.5-14.5) % PT 14.0 H (9.9-11.9) sec INR 1.32 H (0.93-1.11) sec Carbon Dioxide 17.9 L (21.6-31.8) mmol/L Anion Gap 15.10 H (4.00-12.00) mmol/L BUN 34.9 H (9.0-27.0) mg/dL Creatinine 1.9 H (0.6-1.5) mg/dL Est GFR (CKD-EPI) 35 L (>=60) Calcium 7.5 L (8.7-10.3) mg/dL Microbiology - Last 24 Hours (Table) 11/16/23 03:55 Blood Culture - Preliminary Blood 11/16/23 03:40 Blood Culture - Preliminary Blood Assessment and Plan Assessment: 1. PARK likely ATN vs Pre renal along with ACEi use. History nephrolithiasis. UA concerning for UTI. Presented with creatinine 1.4, worsening to 2.1 yesterday and down to 1.9 today. Maintained on IV fluids. ultrasound shows left hydronephrosis with bilateral renal calculi. 2. CKD Stage 3a baseline creatinine 1.4 mg/dL. etiology is likely nephrosclerosis. Patient has proteinuria which needs to be quantified. 3. Acute metabolic acidosis, likely related to PARK 4. Weakness with acute UTI 5. Essential HTN 6. History nephrolithiasis requiring lithotripsy. Plan: consult urology Repeat labs in a.m. Continue with IV fluids Continue to hold MEGA inhibitor's
[2023-11-18 14:36] VITALS: BMI 39.3
--- NOTE | 2023-11-18 17:06 | XR ---
EXAMINATION TYPE: XR chest 1V portable DATE OF EXAM: 11/18/2023 4:57 PM CLINICAL INDICATION:Male, 83 years old with history of R/O aspiration PNA; [facility] COMPARISON: Chest radiographs from 05/30/2021. TECHNIQUE: XR chest 1V portable Frontal view of the chest. FINDINGS: Lungs/Pleura: There is no evidence of pleural effusion, focal consolidation, or pneumothorax. Pulmonary vascularity: Unremarkable. Heart/mediastinum: Cardiomediastinal silhouette is enlarged and stable. Atherosclerotic calcificatio ns are seen in the aorta. Two lead cardiac conduction device overlying the left hemithorax with lead tips projecting over the right ventricle and right atrium. Musculoskeletal: No acute osseous pathology. There is fixation hardware in the lower cervical spine. IMPRESSION: 1. No definitive evidence on this single view portable exam for aspiration. 2. Cardiomegaly and mild pulmonary vascular congestion. Correlate with BNP for congestive heart fail ure.
[2023-11-18] MEDS: FUROSEMIDE 10 MG/ML 2 ML VIAL IV ONE (18:03)
[2023-11-18] MEDS: WARFARIN 5 MG TAB PO SCH (20:08)
[2023-11-18] MEDS: WARFARIN 2 MG TAB PO ONE (20:08)
[2023-11-19] MEDS: FUROSEMIDE 10 MG/ML 4 ML VIAL IV STA (11:15)
[2023-11-19 11:24] LABS: HCT 36.5 % (39.6-50.0); HGB 11.6 g/dL (13.0-17.0); MCH 28.6 pg (27.0-32.0); MCHC 31.8 g/dL (32.0-37.0); MCV 89.9 FL (80.0-97.0); Mean Platelet Volume 9.9 FL (9.5-12.2); NRBC Per 100 WBC 0 X 10*3/uL (0.00-0.01); Platelet Count 271 X 10*3/uL (140-440); RBC 4.06 X 10*6/uL (4.40-5.60); RDW 14.7 % (11.5-14.5); WBC 10.69 X 10*3/uL (4.50-10.00)
[2023-11-19 11:25] LABS: BUN/Creat Ratio 22.29 Ratio (12.00-20.00); Blood Urea Nitrogen 37.9 mg/dL (9.0-27.0); Calcium 7.7 mg/dL (8.7-10.3); Carbon Dioxide 17.9 mmol/L (21.6-31.8); Chloride 105 mmol/L (96-109); Glucose 105 mg/dL (70-110); Potassium 4.5 mmol/L (3.5-5.5); Sodium 136 mmol/L (135-145)
--- NOTE | 2023-11-19 11:44 | P.GSCN ---
History of Present Illness Consult date: 11/19/23 Reason for Consult: Ureteral stone History of present illness: This is an 83-year-old male that presented to the hospital with left-sided flank pain, weakness associated with urinary frequency and urgency. Patient also had evidence of leukocytosis and acute kidney injury which is improving. He underwent a CT abdomen and pelvis which showed evidence of a 9 mm left-sided distal ureteral stone. No previous history of kidney stones. He denies any fevers or chills at this time. Denies any gross hematuria. His creatinine is down to 1.7 from 2.1 his baseline is 1.4. Urine culture was obtained on presentation which which was contaminated, he has been on IV antibiotics since admission. Review of Systems - Constitutional Denies fever, Denies weight loss - Cardiovascular Reports leg edema, Reports shortness of breath, Denies chest pain - Respiratory Reports dyspnea - Gastrointestinal Reports as per HPI - Genitourinary Reports flank pain Past Medical History Past Medical History: Atrial Fibrillation, Cancer, CVA/TIA, GERD/Reflux, Hyper lipidemia, Hypertension, Prostate Disorder Additional Past Medical History / Comment(s): 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 dry skin on arms, numbness in last 2 fingers to left hand. History of Any Multi-Drug Resistant Organisms: None Reported Past Surgical History: Cholecystectomy, Hernia Repair, Orthopedic Surgery, Pacemaker Additional Past Surgical History / Comment(s): cervical fusion, lithrotripsy, Past Anesthesia/Blood Transfusion Reactions: No Reported Reaction Additional Past Anesthesia/Blood Transfusion Reaction / Comm: Pt has never recieved blood. Type of Cardiac Device: Permanent Pacemaker Device Placement Date:: 2013 Past Psychological History: No Psychological Hx Reported Smoking Status: Former smoker Past Alcohol Use History: None Reported Past Drug Use History: None Reported - Past Family History Father Family Medical History: Diabetes Mellitus Mother Family Medical History: Osteoarthritis (OA) Additional Family Medical History / Comment(s): arthritis Medications and Allergies Home Medications Medication Instructions Recorded Confirmed Type Simvastatin [Zocor] 20 mg PO HS 08/02/14 11/16/23 History Vitamin E (Dl,Tocopheryl Acet) 400 unit PO DAILY 08/03/14 11/16/23 History [Vitamin E (400 Iu = 180 mg)] atenoloL [Tenormin] 25 mg PO BID 08/03/14 11/16/23 History lisinopriL [Zestril] 10 mg PO DAILY 03/23/19 11/16/23 History Acetaminophen [Tylenol] 1,000 mg PO Q6H 05/30/21 11/16/23 History Warfarin [Coumadin] 5 mg PO MOWEFR@209905/30/21 11/16/23 History amLODIPine [Norvasc] 5 mg PO DAILY 05/30/21 11/16/23 History Furosemide [Lasix] 20 mg PO DAILY 11/29/22 11/16/23 History Warfarin [Coumadin] 2.5 mg PO SUTUTHSA@209911/29/22 11/16/23 History Allergies Allergy/AdvReac Type Severity Reaction Status Date / Time No Known Allergies Allergy Verified 11/16/23 09:01 Surgical - Exam Vital Signs Temp Pulse Resp BP Pulse Ox 97.7 F 68 18 109/60 94 L 11/15/23 13:56 11/15/23 13:56 11/15/23 13:56 11/15/23 13:56 11/15/23 13:56 - General no distress, no pain - Eyes normal ocular movement, no pale - ENT normal nares, normal mucosa - Respiratory normal expansion, normal respiratory effort - Abdomen Abdomen: soft, non tender, no distended - Psychiatric oriented to time, oriented to person, oriented to place Results - Labs 11/19/23 06:13 11/19/23 06:13 Abnormal Lab Results - Last 24 Hours (Table) 11/19/23 11/19/23 Range/Units 06:13 06:13 WBC 10.69 H (4.50-10.00) X 10*3/uL RBC 4.06 L (4.40-5.60) X 10*6/uL Hgb 11.6 L (13.0-17.0) g/dL Hct 36.5 L (39.6-50.0) % MCHC 31.8 L (32.0-37.0) g/dL RDW 14.7 H (11.5-14.5) % Carbon Dioxide 17.9 L (21.6-31.8) mmol/L Anion Gap 13.10 H (4.00-12.00) mmol/L BUN 37.9 H (9.0-27.0) mg/dL Creatinine 1.7 H (0.6-1.5) mg/dL Est GFR (CKD-EPI) 40 L (>=60) BUN/Creatinine Ratio 22.29 H (12.00-20.00) Ratio Calcium 7.7 L (8.7-10.3) mg/dL Microbiology - Last 24 Hours (Table) 11/16/23 03:55 Blood Culture - Preliminary Blood 11/16/23 03:40 Blood Culture - Preliminary Blood Diabetes panel 11/19/23 Range/Units 06:13 Sodium 136 (135-145) mmol/L Potassium 4.5 (3.5-5.5) mmol/L Chloride 105 (96-109) mmol/L Carbon Dioxide 17.9 L (21.6-31.8) mmol/L BUN 37.9 H (9.0-27.0) mg/dL Creatinine 1.7 H (0.6-1.5) mg/dL Glucose 105 (70-110) mg/dL Calcium 7.7 L (8.7-10.3) mg/dL Calcium panel 11/19/23 Range/Units 06:13 Calcium 7.7 L (8.7-10.3) mg/dL Pituitary panel 11/19/23 Range/Units 06:13 Sodium 136 (135-145) mmol/L Potassium 4.5 (3.5-5.5) mmol/L Chloride 105 (96-109) mmol/L Carbon Dioxide 17.9 L (21.6-31.8) mmol/L BUN 37.9 H (9.0-27.0) mg/dL Creatinine 1.7 H (0.6-1.5) mg/dL Glucose 105 (70-110) mg/dL Calcium 7.7 L (8.7-10.3) mg/dL Adrenal panel 11/19/23 Range/Units 06:13 Sodium 136 (135-145) mmol/L Potassium 4.5 (3.5-5.5) mmol/L Chloride 105 (96-109) mmol/L Carbon Dioxide 17.9 L (21.6-31.8) mmol/L BUN 37.9 H (9.0-27.0) mg/dL Creatinine 1.7 H (0.6-1.5) mg/dL Glucose 105 (70-110) mg/dL Calcium 7.7 L (8.7-10.3) mg/dL - Imaging CT scan - abdomen: image reviewed (9 mm left-sided distal stone, with severe hydronephrosis, multiple nonobstructing renal stones) Assessment and Plan Assessment: This is a 83-year-old male with a 9 mm left-sided ureteral stone, I discussed the finding with patient and his daughter, discussed given his acute kidney injury his symptomatic presentation and the size of the stone I do recommend proceeding seeding with intervention if he is medically cleared. Option of left-sided ureteroscopy with holmium laser was discussed. Aware the risk which includes but not limited to bleeding, infection, injury to the ureter. Discussed with him he is at high risk of complication given his age -Keep n.p.o. -OR for left-sided ureteroscopy with holmium laser lithotripsy and stent , if he is cleared by medicine and cardiology
[2023-11-19] MEDS: IPRATROPIUM-ALBUTEROL 3 ML NEB INHALATION STA (11:57)
--- NOTE | 2023-11-19 12:52 | P.PN ---
Subjective Progress Note Date: 11/19/23 * 83-year-old gentleman with past medical history significant for atrial fibrillation, s/p pacemaker in place, history of degenerative disease of spine, cholecystectomy, presents to the emergency department with complaints of frequency, urgency while passing urine as well as right-sided flank pain. Patient stated symptom onset was 24 hours prior to arrival with profound weakness unable to do activities of daily living. Patient also complained of associated abdominal distention. He denies fever, chills, chest pain, nausea, vomiting, shortness of breath. * Workup in ER included x-ray KUB which showed nonspecific bowel gas pattern, mild to moderate colon stool noted * CBC showed WBC of 15.8 hemoglobin 13.7 platelet count of 275 * Serum chemistry showed sodium 136 potassium 4.7 carbon dioxide 20 BUN 20 creatinine 1.41 * Urinalysis shows large amount of leukocyte esterase WBC, many bacteria * Patient tested negative for RSV influenza and COVID * Patient to be admitted to medical floor for symptomatic urinary tract infection * 11/17/23 >> patient seen and evaluated bedside, blood work reviewed WBC 16.1, creatinine of 2.1, lisinopril discontinued, will consult nephrology, continue IV antibiotics. Noted to have bradycardia, updated parameters for atenolol, renal ultrasound ordered nephrology consulted appreciate recommendations. Creatinine trending up to be monitored * 11/18/23 : Patient seen and evaluated at bedside, appreciate input from nephrology, continue with postvoid residuals, renal ultrasound shows no evidence of hydronephrosis, intrarenal calculi noted. Follow-up on creatinine noted to have significant improvement creatinine 1.9. CT abdomen pelvis * 11/19/23: Patient seen and evaluated bedside, patient had CT abdomen pelvis completed which does show left ureter stone, with hydronephrosis, patient has been hypoxic and chest x-ray shows pulmonary vascular congestion remains on 4 L of oxygen, follow-up renal profile ordered. Patient noted with fluid overload started back on Lasix, will follow-up on renal profile, nephrology following, cardiology consult PHYSICAL EXAMINATION: GENERAL: The patient is alert and oriented x3, ill appearance, nasal cannula in place HEENT: Pupils are round and equally reacting to light. EOMI. No scleral icterus. CARDIOVASCULAR: S1 and S2 present. No murmurs, rubs, or gallops. PULMONARY: Decreased breath sounds by laterally, rhonchi audible ABDOMEN: Soft, nontender, nondistended, normoactive bowel sounds. No palpable organomegaly. MUSCULOSKELETAL: No joint swelling or deformity. EXTREMITIES: Trace lower extremity edema noted NEUROLOGICAL: Gross neurological examination did not reveal any focal deficits. SKIN: No rashes. Assessment and plan * Urinary tract infection * Ureter Stone left side with hydronephrosis * Acute exacerbation of CHF * Chronic atrial fibrillation * Chronic kidney disease stage IIIb * Hypertension * Hyperlipidemia * On chronic anticoagulation * In regards to urinary tract infection, continue patient on IV Rocephin day 4 , follow-up on urine cultures continue with fluid resuscitation, CT abdomen pelvis reviewed patient to be taken to cystoscopy by urology * In regards to atrial fibrillation, continue atenolol, monitor for bradycardia continue Coumadin pharmacy to dose follow-up on INR, * In regards to exacerbation of CHF, echocardiogram ordered, cardiology consulted * History of hypertension , patient resuscitated with fluid, noted to have exacerbation of CHF, fluids discontinued given 1 dose of Lasix on 11/17, additional dose given 11/18 * In regards to chronic anticoagulation pharmacy consulted for adjusting dose of Coumadin Objective - Vital Signs Vital signs: Vital Signs Temp 98.2 F 11/19/23 07:17 Pulse 60 11/19/23 07:17 Resp 16 11/19/23 07:17 BP 115/68 11/19/23 07:17 Pulse Ox 92 L 11/19/23 07:17 FiO2 Intake & Output 11/18/23 11/19/23 11/19/23 18:59 06:59 18:59 Output Total 700 Balance -700 Weight 131.542 kg Output: Urine 700 Other: Voiding Method Diaper Diaper Incontinent Incontinent External Catheter External Catheter # Voids 2 2 # Bowel Movements 1 1 1 - Labs CBC & Chem 7: 11/19/23 06:13 11/19/23 06:13 Labs: Abnormal Lab Results - Last 24 Hours (Table) 11/18/23 11/18/23 11/18/23 Range/Units 06:02 06:02 06:02 WBC 11.32 H (4.50-10.00) X 10*3/uL RBC 3.81 L (4.40-5.60) X 10*6/uL Hgb 11.2 L (13.0-17.0) g/dL Hct 34.4 L (39.6-50.0) % RDW 14.7 H (11.5-14.5) % PT 14.0 H (9.9-11.9) sec INR 1.32 H (0.93-1.11) sec Carbon Dioxide 17.9 L (21.6-31.8) mmol/L Anion Gap 15.10 H (4.00-12.00) mmol/L BUN 34.9 H (9.0-27.0) mg/dL Creatinine 1.9 H (0.6-1.5) mg/dL Est GFR (CKD-EPI) 35 L (>=60) Calcium 7.5 L (8.7-10.3) mg/dL Microbiology - Last 24 Hours (Table) 11/16/23 03:55 Blood Culture - Preliminary Blood 11/16/23 03:40 Blood Culture - Preliminary Blood
--- NOTE | 2023-11-19 14:10 | P.CRDCN ---
History of Present Illness Consult date: 11/19/23 Consult reason: congestive heart failure History of present illness: History of present illness: This is an 83-year-old male patient of Dr. Hawthorne with past medical history of hypertension, hyperlipidemia, paroxysmal atrial fibrillation, sick sinus syndrome status post permanent pacemaker, chronic mild lower extremity edema. We have been asked to evaluate the patient for CHF. Patient states he came into the hospital due to weakness to both his upper extremities and lower extremities to the point that he could not stand. He states he has a little shortness of breath with moving. At rest no shortness of breath. He has chronic lower e xtremity edema slightly worse on the left. He denies having any chest pain. He denies any weight gain. Patient is status post 1 dose of IV Lasix yesterday of 20 mg and 1 dose of IV Lasix 40 mg today. Patient is currently euvolemic. Patient has been found to have acute kidney injury, hydronephrosis with left- sided kidney stones and is scheduled for cystoscopy on 11/18 in the afternoon. EKG ventricularly paced rhythm Chest x-ray: No definite onevidence for aspiration. Cardiomegaly and mild pulmonary vascular congestion. WBC 10.6, hemoglobin 11.6, platelet count 271. INR 1.3. Sodium 136, potassium 4 Correlate for congestive heart failure..5, BUN currently 37 and creatinine 1.7. proBNP 5391. Home cardiac medications: Amlodipine 5 mg daily, atenolol 25 mg twice daily, Lasix 20 mg daily, lisinopril 10 mg daily, simvastatin 20 mg at bedtime, Coumadin 5 mg on Saturday and 2.5 mg on the other days. Echocardiogram obtained in the office on 09/03/2022 revealed EF of 45 to 50%, global LV hypokinesis. Moderate aortic regurgitation. Moderate mitral regurgitation, mild tricuspid regurgitation. Pulmonary artery systolic pressure of 45 mmHg. Review Of Systems: At the time of my exam: CONSTITUTIONAL: Denies fever or chills. Reports weakness. HEENT: Denies blurred vision, vision changes, or eye pain. Denies hemoptysis CARDIOVASCULAR: Denies chest pain. Denies orthopnea. Denies PND. Denies palpitations. Reports chronic lower extremity edema. RESPIRATORY: Denies shortness of breath. Reports dyspnea on exertion GASTROINTESTINAL: Denies abdominal pain. Denies nausea or vomiting. HEMATOLOGIC: Denies bleeding disorders. GENITOURINARY: Denies any blood in urine. SKIN: Denies pruitis. Denies rash. Physical examination: Gen: This is an 83-year-old male appears to be in no acute distress. VS: reviewed, blood pressure 121/65, heart rate 60, pulse ox 91% on 4 L nasal cannula. HEENT: Head is atraumatic, normocephalic. Pupils equal, round. Sclerae is anicteric. NECK: Supple. No JVD. LUNGS: Clear to auscultation. No wheezes or rhonchi. No intercostal retracti ons. HEART: Regular rate and rhythm. No murmur. ABDOMEN: Soft No tenderness. EXTREMITIES: Trace left greater than right lower extremity edema. No calf tenderness. NEUROLOGICAL: Patient is awake, alert and oriented x3. 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 On examination, patient is euvolemic but with history of diastolic heart failure, cautious use of IV fluids should be considered. Further recommendations to follow based upon clinical course Thank you kindly for this consultation. Nurse practitioner note has been reviewed, I agree with documented findings and plan of care. Patient was seen and examined. Past Medical History Past Medical History: Atrial Fibrillation, Cancer, CVA/TIA, GERD/Reflux, Hyperlipidemia, Hypertension, Prostate Disorder Additional Past Medical History / Comment(s): tia-2005, See Dr Aguirre H&P, arthritis, uses walker or cane, enlarged prostate, prostate CA 2015(radiation), hx shingles some edema to left ankle using lasix. dry skin on arms, numbness in last 2 fingers to left hand. History of Any Multi-Drug Resistant Organisms: None Reported Past Surgical History: Cholecystectomy, Hernia Repair, Orthopedic Surgery, Pacemaker Additional Past Surgical History / Comment(s): cervical fusion, lithrotripsy, Past Anesthesia/Blood Transfusion Reactions: No Reported Reaction Additional Past Anesthesia/Blood Transfusion Reaction / Comment(s): Pt has never recieved blood. Type of Cardiac Device: Permanent Pacemaker Device Placement Date:: 2013 Past Psychological History: No Psychological Hx Reported Smoking Status: Former smoker Past Alcohol Use History: None Reported Past Drug Use History: None Reported - Past Family History Father Family Medical History: Diabetes Mellitus Mother Family Medical History: Osteoarthritis (OA) Additional Family Medical History / Comment(s): arthritis Medications and Allergies Home Medications Medication Instructions Recorded Confirmed Type Simvastatin [Zocor] 20 mg PO HS 08/02/14 11/16/23 History Vitamin E (Dl,Tocopheryl Acet) 400 unit PO DAILY 08/03/14 11/16/23 History [Vitamin E (400 Iu = 180 mg)] atenoloL [Tenormin] 25 mg PO BID 08/03/14 11/16/23 History lisinopriL [Zestril] 10 mg PO DAILY 03/23/19 11/16/23 History Acetaminophen [Tylenol] 1,000 mg PO Q6H 05/30/21 11/16/23 History Warfarin [Coumadin] 5 mg PO MOWEFR@2100 05/30/21 11/16/23 History amLODIPine [Norvasc] 5 mg PO DAILY 05/30/21 11/16/23 History Furosemide [Lasix] 20 mg PO DAILY 11/29/22 11/16/23 History Warfarin [Coumadin] 2.5 mg PO SUTUTHSA@2100 11/29/22 11/16/23 History Allergies Allergy/AdvReac Type Severity Reaction Status Date / Time No Known Allergies Allergy Verified 11/16/23 09:01 Physical Exam Vitals: Vital Signs Temp Pulse Pulse Resp BP Pulse Ox 11/19/23 12:07 60 11/19/23 11:57 60 11/19/23 07:17 98.2 F 60 16 115/68 92 L 11/19/23 01:35 98.1 F 60 16 104/68 93 L 11/18/23 21:28 16 11/18/23 18:34 98.0 F 60 16 131/64 91 L Intake and Output 11/18/23 11/19/23 11/19/23 22:59 06:59 14:59 Output Total 700 Balance -700 Output: Urine 700 Other: Voiding Method Diaper Diaper Incontinent Incontinent External Catheter External Catheter # Voids 2 1 # Bowel Movements 1 1 Results 11/19/23 06:13 11/19/23 06:13 CBC 11/19/23 Range/Units 06:13 WBC 10.69 H (4.50-10.00) X 10*3/uL RBC 4.06 L (4.40-5.60) X 10*6/uL Hgb 11.6 L (13.0-17.0) g/dL Hct 36.5 L (39.6-50.0) % Plt Count 271 (140-440) X 10*3/uL Comprehensive Metabolic Panel 11/19/23 Range/Units 06:13 Sodium 136 (135-145) mmol/L Potassium 4.5 (3.5-5.5) mmol/L Chloride 105 (96-109) mmol/L Carbon Dioxide 17.9 L (21.6-31.8) mmol/L BUN 37.9 H (9.0-27.0) mg/dL Creatinine 1.7 H (0.6-1.5) mg/dL Glucose 105 (70-110) mg/dL Calcium 7.7 L (8.7-10.3) mg/dL Current Medications Generic Name Dose Route Start Last Admin Trade Name Freq PRN Reason Stop Dose Admin Acetaminophen 1,000 mg 11/16/23 10:15 11/18/23 16:10 Acetaminophen Tab 500 Mg Tab PO 1,000 mg Q6H PRN Administration MILD PAIN AND FEVER Al Hydroxide/Mg Hydroxide 30 ml 11/17/23 15:38 11/17/23 16:23 Mag Hydrox/Al Hydrox/Simeth 30 Ml Cup PO 30 ml Q4HR PRN Administration GI Upset Amlodipine Besylate 5 mg 11/16/23 10:15 11/19/23 08:15 Amlodipine 5 Mg Tab PO 5 mg DAILY ALEJANDRO Administration Atenolol 25 mg 11/16/23 21:00 11/19/23 08:15 Atenolol 25 Mg Tab PO 25 mg BID ALEJANDRO Administration Atorvastatin Calcium 10 mg 11/16/23 21:00 11/18/23 20:07 Atorvastatin 10 Mg Tab PO 10 mg HS ALEJANDRO Administration Ceftriaxone Sodium 2 gm/ 50 mls @ 100 mls/hr 11/17/23 08:00 11/19/23 08:15 Sodium Chloride IVPB 100 mls/hr Q24HR ALEJANDRO Administration Protocol Miscellaneous Information 1 each 11/16/23 10:18 Warfarin Per Pharmacy MISCELLANE DIRECTED PRN Per Protocol Protocol Naloxone HCl 0.2 mg 11/16/23 00:51 Naloxone 0.4 Mg/Ml 1 Ml Vial IV Q2M PRN Opioid Reversal Nystatin 1 applic 11/17/23 21:00 11/19/23 08:16 Nystatin 100,000 Unit/Gm Powd 15 Gm TOPICAL 1 applic BID [facility] Administration Protocol Ondansetron HCl 4 mg 11/16/23 00:51 Ondansetron 4 Mg/2 Ml Vial IVP Q8HR PRN Nausea And Vomiting Petrolatum 1 applic 11/17/23 21:00 11/19/23 08:16 Zinc Oxide Paste (Z-Guard) 1 Applic TOPICAL 1 applic BID [facility] Administration Protocol Polyethylene Glycol 17 gm 11/16/23 10:15 11/19/23 08:16 Polyethylene Glycol 3350 17 Gm Powd.Pack PO 17 gm DAILY ALEJANDRO Administration Vitamin E 400 unit 11/17/23 09:00 11/19/23 08:15 Vitamin E (Dl,Tocopheryl Acet) 400 Unit (180 Mg) Cap PO 400 unit DAILY ALEJANDRO Administration Warfarin Sodium 5 mg 11/18/23 21:00 11/18/23 20:08 Warfarin 5 Mg Tab PO 5 mg MOWEFR@2100 [facility] Administration Protocol Warfarin Sodium 2.5 mg 11/19/23 21:00 Warfarin 2.5 Mg Tab PO SUTUTHSA@2100 [facility] Protocol Intake and Output 11/18/23 11/19/23 11/19/23 22:59 06:59 14:59 Output Total 700 Balance -700 Output: Urine 700 Other: Voiding Method Diaper Diaper Incontinent Incontinent External Catheter External Catheter # Voids 2 1 # Bowel Movements 1 1 11/19/23 06:13 11/19/23 06:13
[2023-11-19 14:16] LABS: INR 1.56 sec (0.93-1.11); Prothrombin Time 16.4 sec (9.9-11.9)
[2023-11-19] MEDS: SODIUM CHLORIDE 0.9% 1,000 ML IV ONE (15:19)
[2023-11-19] MEDS: DEXAMETHASONE SOD PHOSPHATE 4 MG/ML 1 ML VIAL IVP ONE (16:40)
[2023-11-19] MEDS: ONDANSETRON 4 MG/2 ML VIAL IVP ONE (16:40)
[2023-11-19] MEDS ORDERED: PROPOFOL 10 MG/ML 20 ML VIAL IV ONE (16:41)
[2023-11-19] MEDS ORDERED: LIDOCAINE 1% INJ 10MG/ML (20 ML MDV) ONE (16:41)
[2023-11-19] MEDS ORDERED: fentaNYL (PF) 50 MCG/ML 2 ML AMP ONE (16:41)
[2023-11-19] MEDS ORDERED: SUCCINYLCHOLINE CHLORIDE 200 MG/10 ML VIAL IV ONE (16:41)
[2023-11-19] MEDS: SODIUM CHLORIDE 0.9% 50 ML with ceFAZolin 2,000 MG IV ONE (17:08)
[2023-11-19] MEDS: IOPAMIDOL-370 50ML BTL IRRIGATION ONE (17:26)
--- NOTE | 2023-11-19 18:05 | P.OP ---
Date of Procedure: 11/19/23 Preoperative Diagnosis: Left ureteral stone Postoperative Diagnosis: Same Procedure(s) Performed: Cystoscopy left ureteroscopy, holmium laser lithotripsy, stone basketing, ureteral balloon dilation and stent insertion Implants: 6 Latvian by 26 cm stent in the left ureter, left on a string and secured to the catheter Anesthesia: SHIRA Surgeon: Christian Santana Estimated Blood Loss (ml): 5 Condition: stable Disposition: PACU Indications for Procedure: This is a 83-year-old male with a 9 mm left-sided ureteral stone, I discussed the finding with patient and his daughter, discussed given his acute kidney injury his symptomatic presentation and the size of the stone I do recommend proceeding seeding with intervention if he is medically cleared. Option of left-sided ureteroscopy with holmium laser was discussed. Aware the risk which includes but not limited to bleeding, infection, injury to the ureter. Discussed with him he is at high risk of complication given his age Operative Findings: Left distal ureteral stone, edema at the site of the stone Description of Procedure: Patient brought to the operating room, general anesthesia was induced. He was prepped and draped in sterile fashion placed in dorsolithotomy position. 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 There was no abnormality within the bladder but there was significant amount of urine within the bladder which was drained. At this point the left ureteral orifice was intubated with a sensor wire, I was able to advance the wire under fluoroscopy into the kidney. Next an open-ended catheter was passed over the wire and into the collecting system, urine was drained from the collecting system which was clear and there was no apparent evidence of any purulent urine. At this time the wire was readvanced through the catheter and catheter was removed with the wire in place. Next the UVJ was dilated to 15 Latvian tube using a ureteral balloon dilator and this was done under fluoroscopy. Next the semirigid ureteroscope was inserted per urethra and advanced up the left ureteral orifice, a stone was encountered in the distal ureter which was dusted, of note at the site of the stone there was significant amount of edema and there was narrowing at that level of the ureter. given this finding limited basketing was performed in order to avoid injury to the ureter but using the stone basket the stone was repositioned away from the edema and more proximally within the ureter in order to more easily fragmented. At this time the ureteroscope was advanced to the proximal ureter which showed no additional stones, of note there was significant dilation of the ureter. Pullback ureteroscopy was performed showed no injury to the ureter but there was significant amount of edema at the site of the ureter. As the ureteroscope was withdrawn a sensor wire was advanced through. Next a ureteral stent was passed over the wire, the proximal curl was full-size on fluoroscopy and the distal curl was visualized using the cystoscope. The stent was left on a string and the next a 16 Latvian Aguilar catheter was placed with return of clear urine, the stent was secured to the catheter. This time the plan will be to remove the catheter and the stent in approximately 7 to 10 days. There was concern given the degree of meatal stenosis, and urethral meatal narrowing attempt to remove the stent in the office using a flexible cystoscope would not be feasible thus decision was made to place the stent on string and secure it to the catheter. The patient was awakened from anesthesia and taken to recovery in stable condition
--- NOTE | 2023-11-19 18:12 | FL ---
Fluoroscopy INDICATION: Pain FINDINGS: Fluoroscopy time: 16.8 seconds. Total dose area product (DAP) in uGy*m?, mGy*cm? (or similar): 5.8865 Images obtained: 8. IMPRESSION: 1. Documentation of fluoroscopy.
[2023-11-19] MEDS: ALBUTEROL NEBULIZED 2.5 MG/3 ML INHALATION ONE (18:19)
[2023-11-19] MEDS: FUROSEMIDE 10 MG/ML 2 ML VIAL IV ONE (18:43)
[2023-11-19] MEDS: WARFARIN 5 MG TAB PO ONE (20:33)
[2023-11-19] MEDS: WARFARIN 2 MG TAB PO ONE (20:33)
[2023-11-19] MEDS ORDERED: WARFARIN 2.5 MG TAB PO SCH (21:00)
[2023-11-20 07:29] LABS: INR 2.7 (<1.2); Prothrombin Time 26.5 sec (10.0-12.5)
[2023-11-20 10:21] LABS: HCT 37.1 % (39.6-50.0); HGB 11.7 g/dL (13.0-17.0); MCHC 31.5 g/dL (32.0-37.0); MCV 92.1 FL (80.0-97.0); Mean Platelet Volume 9.9 FL (9.5-12.2); NRBC Per 100 WBC 0 X 10*3/uL (0.00-0.01); Platelet Count 265 X 10*3/uL (140-440); RBC 4.03 X 10*6/uL (4.40-5.60); RDW 14.9 % (11.5-14.5); WBC 8.87 X 10*3/uL (4.50-10.00)
[2023-11-20] MEDS: FUROSEMIDE 10 MG/ML 2 ML VIAL IV STA (10:46)
--- NOTE | 2023-11-20 11:28 | P.PN ---
Subjective patient is seen for follow-up for acute kidney injury. status post IV fluids. Currently being diuresed. Renal function has improved. Creatinine is down to 1.7 yesterday. no significant complaints today. Objective - Vital Signs Vital signs: Vital Signs Temp 97.6 F 11/20/23 07:23 Pulse 60 11/20/23 07:23 Resp 18 11/20/23 07:23 BP 103/60 11/20/23 07:23 Pulse Ox 94 L 11/20/23 07:23 FiO2 Intake & Output 11/19/23 11/20/23 11/20/23 18:59 06:59 18:59 Intake Total 300 540 Output Total 1310 1250 Balance -1010 -710 Intake: IV 300 Oral 540 Output: Urine 1300 1250 Estimated Blood Loss 10 Other: Voiding Method Diaper Diaper Incontinent Incontinent External Catheter External Catheter # Voids 0 # Bowel Movements 1 - Exam patient is awake, comfortable, no acute distress Examination of the heart S1 and S2 Examination of the lungs bilateral breath sounds are heard Abdomen is soft nontender Examination of lower extremities shows 1+ edema - Labs CBC & Chem 7: 11/20/23 06:27 11/19/23 06:13 Labs: Abnormal Lab Results - Last 24 Hours (Table) 11/19/23 11/19/23 11/19/23 Range/Units 06:13 06:13 06:13 WBC 10.69 H (4.50-10.00) X 10*3/uL RBC 4.06 L (4.40-5.60) X 10*6/uL Hgb 11.6 L (13.0-17.0) g/dL Hct 36.5 L (39.6-50.0) % MCHC 31.8 L (32.0-37.0) g/dL RDW 14.7 H (11.5-14.5) % PT 16.4 H (9.9-11.9) sec INR 1.56 H (0.93-1.11) sec Carbon Dioxide 17.9 L (21.6-31.8) mmol/L Anion Gap 13.10 H (4.00-12.00) mmol/L BUN 37.9 H (9.0-27.0) mg/dL Creatinine 1.7 H (0.6-1.5) mg/dL Est GFR (CKD-EPI) 40 L (>=60) BUN/Creatinine Ratio 22.29 H (12.00-20.00) Ratio Calcium 7.7 L (8.7-10.3) mg/dL NT-Pro-B Natriuret Pep (0-450) pg/mL 11/19/23 11/20/23 11/20/23 Range/Units 06:13 06:27 06:27 WBC (4.50-10.00) X 10*3/uL RBC 4.03 L (4.40-5.60) X 10*6/uL Hgb 11.7 L (13.0-17.0) g/dL Hct 37.1 L (39.6-50.0) % MCHC 31.5 L (32.0-37.0) g/dL RDW 14.9 H (11.5-14.5) % PT 26.5 H (9.9-11.9) sec INR 2.7 H (0.93-1.11) sec Carbon Dioxide (21.6-31.8) mmol/L Anion Gap (4.00-12.00) mmol/L BUN (9.0-27.0) mg/dL Creatinine (0.6-1.5) mg/dL Est GFR (CKD-EPI) (>=60) BUN/Creatinine Ratio (12.00-20.00) Ratio Calcium (8.7-10.3) mg/dL NT-Pro-B Natriuret Pep 5391 H (0-450) pg/mL Microbiology - Last 24 Hours (Table) 11/16/23 03:55 Blood Culture - Preliminary Blood 11/16/23 03:40 Blood Culture - Preliminary Blood Assessment and Plan Assessment: 1. PARK likely ATN vs Pre renal along with ACEi use. History nephrolithiasis. UA concerning for UTI. Presented with creatinine 1.4, worsening to 2.1 yesterday and down to 1.7yesterday. status post IV fluids. ultrasound shows left hydronep hrosis with bilateral renal calculi. 2. CKD Stage 3a baseline creatinine 1.4 mg/dL. etiology is likely nephrosclerosis. Patient has proteinuria which needs to be quantified. 3. Acute metabolic acidosis, likely related to PARK 4. Weakness with acute UTI 5. Essential HTN 6. History nephrolithiasis requiring lithotripsy. current ultrasound showed left hydronephrosis. Patient is status post cystoscopy with left laser lithotripsy and left ureteral stent insertion on 11/19/2023. Plan: add scheduled dose of oral Lasix. Follow-up as outpatient in about 1 week. Continue to hold MEGA inhibitor's for now
[2023-11-20 11:50] LABS: Blood Urea Nitrogen 39.1 mg/dL (9.0-27.0); Carbon Dioxide 19.1 mmol/L (21.6-31.8); Chloride 107 mmol/L (96-109); Glucose 129 mg/dL (70-110); Potassium 4.8 mmol/L (3.5-5.5); Sodium 139 mmol/L (135-145)
--- NOTE | 2023-11-20 12:02 | CA ---
Transthoracic Echo Report Name: Santosh Melton Age: 83 Gender: M : 1940 Exam Date: 11/20/2023 08:56 Exam Location: [facility] Ht (in): 72 Wt (lb): 290 Ordering Physician: Navin Alexis MD Attending/Referring Phys: Hand Glass Cutter Kalie Maya RDCS Procedure CPT: Indications: chf Cardiac Hx: Technical Quality: Technically difficult study Contrast 1: Definity Total Dose (mL): 2 Contrast 2: Total Dose (mL): MEASUREMENTS (Male / Female) Normal Values 2D ECHO LV Diastolic Diameter PLAX 5.9 cm 4.2 - 5.9 / 3.9 - 5.3 cm LV Systolic Diameter PLAX 5.0 cm IVS Diastolic Thickness 1.0 cm 0.6 - 1.0 / 0.6 - 0.9 cm LVPW Diastolic Thickness 1.1 cm 0.6 - 1.0 / 0.6 - 0.9 cm LV Relative Wall Thickness 0.3 RV Internal Dim ED PLAX 4.8 cm LVOT Diameter 2.4 cm Aortic Root Diameter 3.6 cm LV Diastolic Volume MOD BP 141.6 cm??? 67 - 155 / 56 - 104 cm??? LV Systolic Volume MOD BP 92.1 cm??? 22 - 58 / 19 - 49 cm??? LV Ejection Fraction MOD BP 34.9 % >= 55 % LV Cardiac Index MOD BP 1125.4 cm???/min???m??? LV Diastolic Volume MOD 4C 132.2 cm??? LV Systolic Volume MOD 4C 86.7 cm??? LV Ejection Fraction MOD 4C 34.5 % LV Cardiac Index MOD 4C 1036.1 cm???/min???m??? LV Diastolic Length 4C 8.2 cm LV Systolic Length 4C 7.2 cm LV Diastolic Volume MOD 2C 152.5 cm??? LV Systolic Volume MOD 2C 97.1 cm??? LV Ejection Fraction MOD 2C 36.3 % LV Cardiac Index MOD 2C 1258.0 cm???/min???m??? LV Diastolic Length 2C 8.2 cm LV Systolic Length 2C 7.1 cm Ascending Aorta Diameter 3.8 cm DOPPLER AV Peak Velocity 115.7 cm/s AV Peak Gradient 5.4 mmHg AV Mean Velocity 86.5 cm/s AV Mean Gradient 3.2 mmHg AV Velocity Time Integral 23.7 cm LVOT Peak Velocity 106.4 cm/s LVOT Peak Gradient 4.5 mmHg LVOT Velocity Time Integral 22.2 cm LVOT Stroke Volume 102.7 cm??? LVOT Stroke Volume Index 41.2 ml/m??? LVOT Cardiac Index 2336.3 cm???/min???m??? AV Area Cont Eq vti 4.3 cm??? AV Area Cont Eq pk 4.3 cm??? TR Peak Velocity 261.2 cm/s TR Peak Gradient 27.3 mmHg Right Atrial Pressure 5.0 mmHg Pulmonary Artery Systolic Pressu 32.3 mmHg Right Ventricular Systolic Press 32.3 mmHg PV Peak Velocity 85.3 cm/s PV Peak Gradient 2.9 mmHg FINDINGS Left Ventricle Left ventricular ejection fraction is estimated at 35-40 %. Severely increased left ventricular systolic volume. Moderately decreased left ventricular ejection fraction. Left ventricular wall thickness normal. Global hypokinesis with regional variability. Right Ventricle Moderate right ventricular dilatation with mildly reduced function.right ventricular systolic pressure within normal limits. Right Atrium Severe right atrial dilatation. Left Atrium Moderate to severe left atrial dilatation. Mitral Valve Structurally normal mitral valve. No evidence for mitral valve prolapse. No mitral stenosis. Mild mitral regurgitation. Aortic Valve Trileaflet aortic valve. Diffuse thickening (sclerosis) of the aortic valve cusps without reduced excursion. No aortic stenosis. Mild aortic regurgitation. Tricuspid Valve Structurally normal tricuspid valve. No tricuspid stenosis. Trace tricuspid regurgitation. Pulmonic Valve Pulmonic valve not well visualized. No pulmonic stenosis. No pulmonic regurgitation. Pericardium Pericardial effusion located posteriorly. Aorta Normal size aortic root and proximal ascending aorta. CONCLUSIONS Dilated left ventricle. Impaired LV function with EF between 35-40% Mild aortic regurgitation Small to medium size pericardial effusion located posteriorly Previewed by: Dr. Uriah Huang MD (Electronically Signed) Final Date: 20 Nov 2023 12:01
--- NOTE | 2023-11-20 12:59 | P.PN ---
Subjective Progress Note Date: 11/20/23 Underwent left sided URS with holmium laser and stent, Denies any flank pain or gross hematuria Objective - Vital Signs Vital signs: Vital Signs Temp 97.6 F 11/20/23 07:23 Pulse 60 11/20/23 07:23 Resp 18 11/20/23 07:23 BP 103/60 11/20/23 07:23 Pulse Ox 94 L 11/20/23 07:23 FiO2 Intake & Output 11/19/23 11/20/23 11/20/23 18:59 06:59 18:59 Intake Total 300 540 Output Total 1310 1250 Balance -1010 -710 Intake: IV 300 Oral 540 Output: Urine 1300 1250 Estimated Blood Loss 10 Other: Voiding Method Diaper Diaper Incontinent Incontinent External Catheter External Catheter # Voids 0 # Bowel Movements 1 - Constitutional General appearance: Present: no acute distress - Gastrointestinal General gastrointestinal: Present: soft. Absent: distended, tenderness - Labs CBC & Chem 7: 11/20/23 06:27 11/20/23 06:27 Labs: Abnormal Lab Results - Last 24 Hours (Table) 11/19/23 11/19/23 11/19/23 Range/Units 06:13 06:13 06:13 WBC 10.69 H (4.50-10.00) X 10*3/uL RBC 4.06 L (4.40-5.60) X 10*6/uL Hgb 11.6 L (13.0-17.0) g/dL Hct 36.5 L (39.6-50.0) % MCHC 31.8 L (32.0-37.0) g/dL RDW 14.7 H (11.5-14.5) % PT 16.4 H (9.9-11.9) sec INR 1.56 H (0.93-1.11) sec Carbon Dioxide 17.9 L (21.6-31.8) mmol/L Anion Gap 13.10 H (4.00-12.00) mmol/L BUN 37.9 H (9.0-27.0) mg/dL Creatinine 1.7 H (0.6-1.5) mg/dL Est GFR (CKD-EPI) 40 L (>=60) BUN/Creatinine Ratio 22.29 H (12.00-20.00) Ratio Calcium 7.7 L (8.7-10.3) mg/dL NT-Pro-B Natriuret Pep (0-450) pg/mL 11/19/23 11/20/23 11/20/23 Range/Units 06:13 06:27 06:27 WBC (4.50-10.00) X 10*3/uL RBC 4.03 L (4.40-5.60) X 10*6/uL Hgb 11.7 L (13.0-17.0) g/dL Hct 37.1 L (39.6-50.0) % MCHC 31.5 L (32.0-37.0) g/dL RDW 14.9 H (11.5-14.5) % PT 26.5 H (9.9-11.9) sec INR 2.7 H (0.93-1.11) sec Carbon Dioxide (21.6-31.8) mmol/L Anion Gap (4.00-12.00) mmol/L BUN (9.0-27.0) mg/dL Creatinine (0.6-1.5) mg/dL Est GFR (CKD-EPI) (>=60) BUN/Creatinine Ratio (12.00-20.00) Ratio Calcium (8.7-10.3) mg/dL NT-Pro-B Natriuret Pep 5391 H (0-450) pg/mL Microbiology - Last 24 Hours (Table) 11/16/23 03:55 Blood Culture - Preliminary Blood 11/16/23 03:40 Blood Culture - Preliminary Blood Assessment and Plan Assessment: This is a 83-year-old male with a 9 mm left-sided ureteral stone, S/P left URS with holmium laser and stent insertion. doing well this am. -OK for discharge from urology standpoint, he can be discharge with henson catheter. Catheter can be removed in 1 week, stent is attached to the catheter, one henson is removed stent will also be removed at the same time. -Continue antibiotics
--- NOTE | 2023-11-20 14:09 | P.PN ---
Subjective Progress Note Date: 11/20/23 Consult reason: congestive heart failure History of present illness: History of present illness: This is an 83-year-old male patient of Dr. Hawthorne with past medical history of hypertension, hyperlipidemia, paroxysmal atrial fibrillation, sick sinus synd kentrell status post permanent pacemaker, chronic mild lower extremity edema. We have been asked to evaluate the patient for CHF. Patient states he came into the hospital due to weakness to both his upper extremities and lower extremities to the point that he could not stand. He states he has a little shortness of breath with moving. At rest no shortness of breath. He has chronic lower extremity edema slightly worse on the left. He denies having any chest pain. He denies any weight gain. Patient is status post 1 dose of IV Lasix yesterday of 20 mg and 1 dose of IV Lasix 40 mg today. Patient is currently euvolemic. Patient has been found to have acute kidney injury, hydronephrosis with left- sided kidney stones and is scheduled for cystoscopy on 11/18 in the afternoon. EKG ventricularly paced rhythm Chest x-ray: No definite onevidence for aspiration. Cardiomegaly and mild pulmonary vascular congestion. WBC 10.6, hemoglobin 11.6, platelet count 271. INR 1.3. Sodium 136, potassium 4 Correlate for congestive heart failure..5, BUN currently 37 and creatinine 1.7. proBNP 5391. Home cardiac medications: Amlodipine 5 mg daily, atenolol 25 mg twice daily, Lasix 20 mg daily, lisinopril 10 mg daily, simvastatin 20 mg at bedtime, Coumadin 5 mg on Saturday and 2.5 mg on the other days. Echocardiogram obtained in the office on 09/03/2022 revealed EF of 45 to 50%, tez bal LV hypokinesis. Moderate aortic regurgitation. Moderate mitral regurgitation, mild tricuspid regurgitation. Pulmonary artery systolic pressure of 45 mmHg. 11/19 Patient is seen today in follow-up. He states he is feeling better after he had surgery. He has been resumed back on Coumadin. INR today is 2.7. Hemoglobin 11.7. BUN 39 creatinine 1.7. Echocardiogram reveals impaired LV with EF of 35 to 40%. Mild aortic regurgitation. Small to medium sized pericardial effusion located posteriorly. Physical examination: Gen: This is an 83-year-old male appears to be in no acute distress. VS: reviewed HEENT: Head is atraumatic, normocephalic. Pupils equal, round. Sclerae is anicteric. LUNGS: Clear to auscultation. No wheezes or rhonchi. No intercostal retractions. HEART: Regular rate and rhythm. No murmur. EXTREMITIES: Trace left greater than right lower extremity edema. No calf tenderness. NEUROLOGICAL: Patient is awake, alert and oriented x3. Assessment: Acute kidney injury Hydronephrosis Kidney stones Hypertension Hyperlipidemia Paroxysmal atrial fibrillation Sick sinus syndrome status post permanent pacemaker Mild chronic lower extremity edema Chronic diastolic heart failure, patient is currently euvolemic Valvular heart disease with moderate aortic regurgitation and moderate mitral regurgitation Plan: Continue patient's home cardiac medications Continue Coumadin, pharmacy to dose 1 dose of IV Lasix 20 mg now Continue to monitor renal function closely Further recommendations to follow based upon clinical course Nurse practitioner note has been reviewed, I agree with documented findings and plan of care. Patient was seen and examined. Objective - Vital Signs Vital signs: Vital Signs Temp 97.6 F 11/20/23 07:23 Pulse 60 11/20/23 07:23 Resp 18 11/20/23 07:23 BP 103/60 11/20/23 07:23 Pulse Ox 94 L 11/20/23 07:23 FiO2 Intake & Output 11/19/23 11/20/23 11/20/23 18:59 06:59 18:59 Intake Total 300 540 Output Total 1310 1250 Balance -1010 -710 Intake: IV 300 Oral 540 Output: Urine 1300 1250 Estimated Blood Loss 10 Other: Voiding Method Diaper Diaper Incontinent Incontinent External Catheter External Catheter # Voids 0 # Bowel Movements 1 - Labs CBC & Chem 7: 11/20/23 06:27 11/20/23 06:27 Labs: Abnormal Lab Results - Last 24 Hours (Table) 11/19/23 11/19/23 11/19/23 Range/Units 06:13 06:13 06:13 WBC 10.69 H (4.50-10.00) X 10*3/uL RBC 4.06 L (4.40-5.60) X 10*6/uL Hgb 11.6 L (13.0-17.0) g/dL Hct 36.5 L (39.6-50.0) % MCHC 31.8 L (32.0-37.0) g/dL RDW 14.7 H (11.5-14.5) % PT 16.4 H (9.9-11.9) sec INR 1.56 H (0.93-1.11) sec Carbon Dioxide 17.9 L (21.6-31.8) mmol/L Anion Gap 13.10 H (4.00-12.00) mmol/L BUN 37.9 H (9.0-27.0) mg/dL Creatinine 1.7 H (0.6-1.5) mg/dL Est GFR (CKD-EPI) 40 L (>=60) BUN/Creatinine Ratio 22.29 H (12.00-20.00) Ratio Calcium 7.7 L (8.7-10.3) mg/dL NT-Pro-B Natriuret Pep (0-450) pg/mL 11/19/23 11/20/23 Range/Units 06:13 06:27 WBC (4.50-10.00) X 10*3/uL RBC (4.40-5.60) X 10*6/uL Hgb (13.0-17.0) g/dL Hct (39.6-50.0) % MCHC (32.0-37.0) g/dL RDW (11.5-14.5) % PT 26.5 H (9.9-11.9) sec INR 2.7 H (0.93-1.11) sec Carbon Dioxide (21.6-31.8) mmol/L Anion Gap (4.00-12.00) mmol/L BUN (9.0-27.0) mg/dL Creatinine (0.6-1.5) mg/dL Est GFR (CKD-EPI) (>=60) BUN/Creatinine Ratio (12.00-20.00) Ratio Calcium (8.7-10.3) mg/dL NT-Pro-B Natriuret Pep 5391 H (0-450) pg/mL Microbiology - Last 24 Hours (Table) 11/16/23 03:55 Blood Culture - Preliminary Blood 11/16/23 03:40 Blood Culture - Preliminary Blood
[2023-11-20] MEDS: WARFARIN 0.5 MG TAB PO ONE (20:27)
--- NOTE | 2023-11-20 20:29 | P.PN ---
Subjective * 83-year-old gentleman with past medical history significant for atrial fibrillation, s/p pacemaker in place, history of degenerative disease of spi ne, cholecystectomy, presents to the emergency department with complaints of frequency, urgency while passing urine as well as right-sided flank pain. Patient stated symptom onset was 24 hours prior to arrival with profound weakness unable to do activities of daily living. Patient also complained of associated abdominal distention. He denies fever, chills, chest pain, nausea, vomiting, shortness of breath. * Workup in ER included x-ray KUB which showed nonspecific bowel gas pattern, mild to moderate colon stool noted * CBC showed WBC of 15.8 hemoglobin 13.7 platelet count of 275 * Serum chemistry showed sodium 136 potassium 4.7 carbon dioxide 20 BUN 20 creatinine 1.41 * Urinalysis shows large amount of leukocyte esterase WBC, many bacteria * Patient tested negative for RSV influenza and COVID * Patient to be admitted to medical floor for symptomatic urinary tract infection * 11/17/23 >> patient seen and evaluated bedside, blood work reviewed WBC 16.1, creatinine of 2.1, lisinopril discontinued, will consult nephrology, continue IV antibiotics. Noted to have bradycardia, updated parameters for atenolol, renal ultrasound ordered nephrology consulted appreciate recommendations. Creatinine trending up to be monitored * 11/18/23 : Patient seen and evaluated at bedside, appreciate input from nephrology, continue with postvoid residuals, renal ultrasound shows no evidence of hydronephrosis, intrarenal calculi noted. Follow-up on creatinine noted to have significant improvement creatinine 1.9. CT abdomen pelvis * 11/19/23: Patient seen and evaluated bedside, patient had CT abdomen pelvis completed which does show left ureter stone, with hydronephrosis, patient has been hypoxic and chest x-ray shows pulmonary vascular congestion remains on 4 L of oxygen, follow-up renal profile ordered. Patient noted with fluid overload started back on Lasix, will follow-up on renal profile, nephrology following, cardiology consul 11/20/2023 patient Patient feels better, he has Aguilar catheter in place. He is s/p laser lithotripsy for his left-sided renal stone status post stent #1 Patient creatinine. 1.7 Patient kept on oral Lasix 40 mg already holding lisinopril 10 mg daily. Patient cleared for discharge by rip and groove machine operator Patient with No UTI signs symptoms, is on Rocephin. Urine culture growing chris, patient can discontinue antibiotics upon discharge Urologist recommend to keep Aguilar catheter in place and follow-up in 1 week where Aguilar and stent can be considered for discontinuation [id number] tank driver also on the case, echocardiogram showed ejection fraction 35 to 40%. Possible discharge in 24 to 48 hours pending placement Objective - Vital Signs Vital signs: Vital Signs Temp 97.5 F L 11/20/23 12:47 Pulse 56 L 11/20/23 12:47 Resp 19 11/20/23 12:47 BP 110/67 11/20/23 12:47 Pulse Ox 96 11/20/23 12:47 FiO2 Intake & Output 11/20/23 11/20/23 11/21/23 06:59 18:59 06:59 Intake Total 540 Output Total 1250 1325 Balance -710 -1325 Intake: Oral 540 Output: Urine 1250 1325 Other: Voiding Method Diaper Indwelling Catheter Incontinent External Catheter - Exam GENERAL: The patient is alert and oriented x3, not in any acute distress. Well developed, well nourished. HEENT: Pupils are round and equally reacting to light. EOMI. No scleral icterus. No conjunctival pallor. Normocephalic, atraumatic. No pharyngeal erythema. No thyromegaly. CARDIOVASCULAR: S1 and S2 present. No murmurs, rubs, or gallops. PULMONARY: Chest is clear to auscultation, no wheezing , no crackles. ABDOMEN: Soft, nontender, nondistended, normoactive bowel sounds. No palpable organomegaly. MUSCULOSKELETAL: No joint swelling or deformity. EXTREMITIES: No cyanosis, clubbing, or pedal edema. NEUROLOGICAL: Gross neurological examination did not reveal any focal deficits. SKIN: No rashes. no petechiae. - Labs CBC & Chem 7: 11/20/23 06:27 11/20/23 06:27 Labs: Abnormal Lab Results - Last 24 Hours (Table) 11/20/23 11/20/23 11/20/23 Range/Units 06:27 06:27 06:27 RBC 4.03 L (4.40-5.60) X 10*6/uL Hgb 11.7 L (13.0-17.0) g/dL Hct 37.1 L (39.6-50.0) % MCHC 31.5 L (32.0-37.0) g/dL RDW 14.9 H (11.5-14.5) % PT 26.5 H (10.0-12.5) sec INR 2.7 H (<1.2) Carbon Dioxide 19.1 L (21.6-31.8) mmol/L Anion Gap 12.90 H (4.00-12.00) mmol/L BUN 39.1 H (9.0-27.0) mg/dL Creatinine 1.7 H (0.6-1.5) mg/dL Est GFR (CKD-EPI) 40 L (>=60) BUN/Creatinine Ratio 23.00 H (12.00-20.00) Ratio Glucose 129 H (70-110) mg/dL Calcium 8.0 L (8.7-10.3) mg/dL Assessment and Plan Assessment: * Urinary tract infection * Ureter Stone left side with hydronephrosis, status post laser lithotripsy on 11/18 * Acute exacerbation of CHF, currently improved and euvolemic * Chronic atrial fibrillation, continue blood thinner Coumadin * Chronic kidney disease stage IIIb * Hypertension * Hyperlipidemia * On chronic anticoagulation Plan: Patient s/p lithotripsy and removal of left ureteral stone, urologist on the case and recommended outpatient follow-up in 1 week for removal of Aguilar catheter at home possible stent removal Continue on oral Lasix Patient was cleared for discharge by nephrology neurologist Cardiology also on the case Continue with Coumadin with close monitoring of INR Continue with ceftriaxone, follow-up, antibiotics can be discontinued upon discharge patient is afebrile with no leukocytosis he has improved Labs and medication were reviewed.. Continue same treatment. Continue with symptomatic treatment. Resume home medication. Monitor labs and vitals. DVT and GI prophylaxis. Further recommendations as per clinical course of the patient DVT prophylaxis:on Coumadin GI Prophylaxis: Pepcid PT/OT: plan for rehab Prognosis is guarded
[2023-11-21 07:28] LABS: INR 3.3 (<1.2); Prothrombin Time 32.1 sec (10.0-12.5)
[2023-11-21] MEDS: FUROSEMIDE 40 MG TAB PO SCH (09:32)
[2023-11-21] MEDS: FAMOTIDINE 20 MG TAB PO SCH (09:32)
--- NOTE | 2023-11-21 11:03 | XR ---
EXAMINATION TYPE: XR chest 1V portable DATE OF EXAM: 11/21/2023 10:45 AM CLINICAL INDICATION:Male, 83 years old with history of sob , coughing; [facility] COMPARISON: Chest radiographs from 11/18/2023 TECHNIQUE: XR chest 1V portable Frontal view of the chest. FINDINGS: Lungs/Pleura: There is no evidence of pleural effusion, focal consolidation, or pneumothorax. Pulmonary vascularity: Mild pulmonary vascular congestion. Heart/mediastinum: Cardiomediastinal silhouette is enlarged and stable. Two lead cardiac conduction d evice overlying the left hemithorax with lead tips projecting over the right ventricle and right atri um. Musculoskeletal: No acute osseous pathology. There is fixation hardware in the lower cervical spine. IMPRESSION: Cardiomegaly and mild pulmonary vascular congestion. Correlate with BNP for congestive heart failure.
--- NOTE | 2023-11-21 11:12 | P.PN ---
Subjective Patient is seen in follow-up for acute kidney injury. Renal function stable last 2 days. Has Aguilar catheter. Nonoliguric. Denies chest pain or shortness of breath. Oral intake fair. Vital signs are stable. General: No acute distress. HEENT: Head exam is unremarkable. On nasal cannula. LUNGS: Lungs are clear to auscultation HEART: Rate and Rhythm are regular. ABDOMEN: Obese, nontender. EXTREMITITES: Trace edema. Objective - Vital Signs Vital signs: Vital Signs Temp 97.9 F 11/21/23 07:21 Pulse 55 L 11/21/23 07:21 Resp 24 11/21/23 07:21 BP 118/68 11/21/23 07:21 Pulse Ox 95 11/21/23 07:21 FiO2 Intake & Output 11/20/23 11/21/23 11/21/23 18:59 06:59 18:59 Output Total 1325 1000 Balance -1325 -1000 Output: Urine 1325 1000 Other: Voiding Method Indwelling Catheter Indwelling Catheter Indwelling Catheter - Labs CBC & Chem 7: 11/20/23 06:27 11/20/23 06:27 Labs: Abnormal Lab Results - Last 24 Hours (Table) 11/20/23 11/21/23 Range/Units 06:27 06:27 PT 32.1 H (10.0-12.5) sec INR 3.3 H (<1.2) Carbon Dioxide 19.1 L (21.6-31.8) mmol/L Anion Gap 12.90 H (4.00-12.00) mmol/L BUN 39.1 H (9.0-27.0) mg/dL Creatinine 1.7 H (0.6-1.5) mg/dL Est GFR (CKD-EPI) 40 L (>=60) BUN/Creatinine Ratio 23.00 H (12.00-20.00) Ratio Glucose 129 H (70-110) mg/dL Calcium 8.0 L (8.7-10.3) mg/dL Assessment and Plan Plan: Assessment: 1. Acute kidney injury secondary to ATN and obstructive uropathy. Creatinine stable at 1.7 last 2 days. 2. Chronic kidney disease stage IIIa with baseline creatinine near 1.4. Suspect nephrosclerosis. 3. Acute on chronic systolic CHF ejection fraction of 35 to 40% with mild aortic regurgitation. 4. Left hydronephrosis with bilateral nephrolithiasis status post left ureteral stent placement November 19, 2023. 5. Volume overload. On oral Lasix. 6. Hypertension with chronic kidney disease. Controlled. 7. Metabolic acidosis secondary to acute kidney injury. Plan: Maintain oral Lasix. Hold amlodipine for systolic blood pressure less than 120. Add oral bicarb. Avoid nephrotoxins. Continue to monitor renal function and urine output.
[2023-11-21 11:26] LABS: African American GFR (CKD) 56 (>60 ml/min/1.73 sqM); Anion Gap 6 mmol/L; Blood Urea Nitrogen 43 mg/dL (9-20); Carbon Dioxide 23 mmol/L (22-30); Chloride 109 mmol/L (98-107); Glucose 101 mg/dL (74-99); Non-African American GFR(CKD) 48 (>60 ml/min/1.73 sqM); Potassium 4.5 mmol/L (3.5-5.1); Sodium 138 mmol/L (137-145)
[2023-11-21] MEDS: guaiFENesin-DM 100-10MG/5ML 10 ML CUP PO SCH (12:09)
[2023-11-21] MEDS: SODIUM BICARBONATE TAB 650 MG TAB PO SCH (12:09)
--- NOTE | 2023-11-21 12:42 | P.DS ---
Providers Date of admission: 11/18/23 08:52 Attending physician: Grover Yoder MD Consults: 11/17/23 11:06 Consult Physician Routine Consulting Provider: Garry Almazan Consult Reason/Comments: Acute kidney injury metabolic acidosis Do you want consulting provider notified?: Yes 11/18/23 10:32 Consult Physician Routine Consulting Provider: Shadi Nguyen Consult Reason/Comments: left hydronephrosis Do you want consulting provider notified?: Yes 11/19/23 10:34 Consult Physician Routine Consulting Provider: Marina Diez Consult Reason/Comments: CHF Do you want consulting provider notified?: Yes Primary care physician: Celina Munoz Hospital Course: Diagnoses: Ureter Stone left side with hydronephrosis, status post laser lithotripsy on 11/18 Urinary tract infection. improved Acute exacerbation of CHF, currently improved Acute kidney injury on chronic kidney disease secondary to cardiorenal disease, and obstructive uropathy, improved Chronic atrial fibrillation, continue blood thinner Coumadin Chronic kidney disease stage IIIb Hypertension Hyperlipidemia On chronic anticoagulation Hospital course: 83-year-old gentleman with past medical history significant for atrial fibrillation, s/p pacemaker in place, history of degenerative disease of spine, cholecystectomy, presents to the emergency department with complaints of frequency, urgency while passing urine as well as right-sided flank pain. Patient was found to have moderate to severe left hydronephrosis with distal left ureter stone, evaluated by urologist and underwent laser lithotripsy on 11/18, patient feels better, Henson catheter left in place and hematuria is improving. Patient with no significant symptoms, no suprapubic or flank pain. No dysuria. No fever or chills. No leukocytosis improved and came back to 8.8. Patient has been having mild coughing and congestion on the chest x-ray secondary to CHF, improving after increasing his oral Lasix dose 20 mg up to 40 mg. Lisinopril was held because of his kidney disease. He might be considered for restarted, At a later stage Also patient received ceftriaxone urine culture is growing chris, patient can finish his treatment with short course of oral Ceftin upon discharge patient denies any other new complaint no chest pain. No diarrhea. Patient agrees to go to rehab today. Daughter at bedside and she is agreeable as well. As per neurologist Dr. graham pt can be discharge with henson catheter. Catheter can be removed in 1 week, stent is attached to the catheter, one henson is removed stent will also be removed at the same time. Good for discharge by all consultants including courtesy driver railway signalling engineer and urologist Problems and management plan were discussed with the patient and he verbalized understanding and acceptance Patient was found stable and can be discharged home in guarded prognosis however he needs follow-up as an outpatient. Patient was instructed to follow up with PCP Dr. Munoz within one week and patient agrees Patient was instructed to follow-up with urologist Dr. graham in 1-2 weeks after discharge. Patient was directed to follow-up with railway signalling engineer Dr. Almazan in 1 week after discharge and he agrees Patient was instructed to follow-up with courtesy driver Dr. Marcano in 2 weeks and he and family agreeable Physical exam Gen: patient is a AAOx3, no distress CVS: S1-S2, RRR, no murmur Lungs: B/L CTA, no wheezing Abdomen: soft, no distention, no tenderness, positive bowel sounds Extremity: no leg edema or induration Time spent more than 35 minutes Patient Condition at Discharge: Fair Plan - Discharge Summary New Discharge Prescriptions: No Action Simvastatin [Zocor] 20 mg PO HS Vitamin E (Dl,Tocopheryl Acet) [Vitamin E (400 Iu = 180 mg)] 400 unit PO DAILY atenoloL [Tenormin] 25 mg PO BID lisinopriL [Zestril] 10 mg PO DAILY amLODIPine [Norvasc] 5 mg PO DAILY Warfarin [Coumadin] 2.5 mg PO SUTUTHSA@2100 Furosemide [Lasix] 20 mg PO DAILY Warfarin [Coumadin] 5 mg PO MOWEFR@2100 Acetaminophen [Tylenol] 1,000 mg PO Q6H Discharge Medication List Simvastatin [Zocor] 20 mg PO HS 08/02/14 [History] Vitamin E (Dl,Tocopheryl Acet) [Vitamin E (400 Iu = 180 mg)] 400 unit PO DAILY 08/03/14 [History] atenoloL [Tenormin] 25 mg PO BID 08/03/14 [History] lisinopriL [Zestril] 10 mg PO DAILY 03/23/19 [History] Acetaminophen [Tylenol] 1,000 mg PO Q6H 05/30/21 [History] Warfarin [Coumadin] 5 mg PO MOWEFR@209905/30/21 [History] amLODIPine [Norvasc] 5 mg PO DAILY 05/30/21 [History] Furosemide [Lasix] 20 mg PO DAILY 11/29/22 [History] Warfarin [Coumadin] 2.5 mg PO SUTUTHSA@209911/29/22 [History] Follow up Appointment(s)/Referral(s): Celina Munoz MD [Primary Care Provider] - 1-2 days
[2023-11-21 13:50] VITALS: BP 128/68; PULSE 60; RESP 16; TEMP 97.6
--- NOTE | 2023-11-21 13:52 | P.PN ---
Subjective Progress Note Date: 11/21/23 Consult reason: congestive heart failure History of present illness: History of present illness: This is an 83-year-old male patient of Dr. Hawthorne with past medical history of hypertension, hyperlipidemia, paroxysmal atrial fibrillation, sick sinus synd kentrell status post permanent pacemaker, chronic mild lower extremity edema. We have been asked to evaluate the patient for CHF. Patient states he came into the hospital due to weakness to both his upper extremities and lower extremities to the point that he could not stand. He states he has a little shortness of breath with moving. At rest no shortness of breath. He has chronic lower extremity edema slightly worse on the left. He denies having any chest pain. He denies any weight gain. Patient is status post 1 dose of IV Lasix yesterday of 20 mg and 1 dose of IV Lasix 40 mg today. Patient is currently euvolemic. Patient has been found to have acute kidney injury, hydronephrosis with left- sided kidney stones and is scheduled for cystoscopy on 11/18 in the afternoon. EKG ventricularly paced rhythm Chest x-ray: No definite onevidence for aspiration. Cardiomegaly and mild pulmonary vascular congestion. WBC 10.6, hemoglobin 11.6, platelet count 271. INR 1.3. Sodium 136, potassium 4 Correlate for congestive heart failure..5, BUN currently 37 and creatinine 1.7. proBNP 5391. Home cardiac medications: Amlodipine 5 mg daily, atenolol 25 mg twice daily, Lasix 20 mg daily, lisinopril 10 mg daily, simvastatin 20 mg at bedtime, Coumadin 5 mg on Saturday and 2.5 mg on the other days. Echocardiogram obtained in the office on 09/03/2022 revealed EF of 45 to 50%, tez bal LV hypokinesis. Moderate aortic regurgitation. Moderate mitral regurgitation, mild tricuspid regurgitation. Pulmonary artery systolic pressure of 45 mmHg. 11/19 Patient is seen today in follow-up. He states he is feeling better after he had surgery. He has been resumed back on Coumadin. INR today is 2.7. Hemoglobin 11.7. BUN 39 creatinine 1.7. Echocardiogram reveals impaired LV with EF of 35 to 40%. Mild aortic regurgitation. Small to medium sized pericardial effusion located posteriorly. 11/20 Yesterday, patient received 1 dose of IV Lasix 20 mg. His kidney function continues to improve with BUN of 43 and creatinine 1.35. INR today is at 3.3 and Coumadin is dosed by pharmacy. Blood pressure 118/68, heart rate 55, pulse ox 95% on 4 L. Patient states he is feeling better today. He has less lower extremity edema. Nephrology has started patient on oral Lasix 40 mg daily. Physical examination: Gen: This is an 83-year-old male appears to be in no acute distress. VS: reviewed HEENT: Head is atraumatic, normocephalic. Pupils equal, round. Sclerae is anicteric. LUNGS: Clear to auscultation. No wheezes or rhonchi. No intercostal retractions. HEART: Regular rate and rhythm. No murmur. EXTREMITIES: Trace left greater than right lower extremity edema. No calf tenderness. NEUROLOGICAL: Patient is awake, alert and oriented x3. Assessment: Acute kidney injury Hydronephrosis Kidney stones Hypertension Hyperlipidemia Paroxysmal atrial fibrillation Sick sinus syndrome status post permanent pacemaker Mild chronic lower extremity edema Chronic diastolic heart failure, patient is currently euvolemic Valvular heart disease with moderate aortic regurgitation and moderate mitral regurgitation Plan: Continue patient's home cardiac medications Continue Coumadin, pharmacy to dose Agree with oral Lasix 40 mg daily Continue to monitor renal function closely Further recommendations to follow based upon clinical course Nurse practitioner note has been reviewed, I agree with documented findings and plan of care. Patient was seen and examined. Objective - Vital Signs Vital signs: Vital Signs Temp 97.9 F 11/21/23 07:21 Pulse 55 L 11/21/23 07:21 Resp 24 11/21/23 07:21 BP 118/68 11/21/23 07:21 Pulse Ox 95 11/21/23 07:21 FiO2 Intake & Output 11/20/23 11/21/23 11/21/23 18:59 06:59 18:59 Output Total 1325 1000 Balance -1325 -1000 Output: Urine 1325 1000 Other: Voiding Method Indwelling Catheter Indwelling Catheter Indwelling Catheter - Labs CBC & Chem 7: 11/20/23 06:27 11/21/23 06:27 Labs: Abnormal Lab Results - Last 24 Hours (Table) 11/20/23 11/21/23 11/21/23 Range/Units 06:27 06:27 06:27 PT 32.1 H (10.0-12.5) sec INR 3.3 H (<1.2) Chloride 109 H (98-107) mmol/L Carbon Dioxide 19.1 L (21.6-31.8) mmol/L Anion Gap 12.90 H (4.00-12.00) mmol/L BUN 39.1 H 43 H (9.0-27.0) mg/dL Creatinine 1.7 H 1.35 H (0.6-1.5) mg/dL Est GFR (CKD-EPI) 40 L (>=60) BUN/Creatinine Ratio 23.00 H (12.00-20.00) Ratio Glucose 129 H 101 H (70-110) mg/dL Calcium 8.0 L 8.0 L (8.7-10.3) mg/dL
[2023-11-21] MEDS: WARFARIN 1 MG TAB PO ONE (14:20)
[2023-11-21] MEDS ORDERED: WARFARIN 0.5 MG TAB PO ONE (18:00)
[2023-11-22] MEDS ORDERED: FAMOTIDINE 20 MG TAB PO SCH (09:00)
--- NOTE | 2023-11-23 20:00 | CDI ---
Documentation Clarification Form Date: 11/23/2023 07:48:18 PM From: Celia Birmingham Phone: Admit Date: 11/18/2023 08:52:00 AM Patient Name: Santosh Melton Visit Number: [id number] Discharge Date: 11/21/2023 04:53:00 PM ATTENTION: The Clinical Documentation Specialists (CDI) and [facility] Coding Staff appreciate your assistance in clarifying documentation. Please respond to the clarification below the line at the bottom and electronically sign. The CDI & [facility] Coding staff will review the response and follow-up if needed. Please note: Queries are made part of the Legal Health Record. If you have any questions, please contact the author of this message via ITS. Dr. Granados E Sheet Your patient has the documented diagnosis of: Chronic diastolic heart failure Per Consult 11/18 and Progress Note 11/19 & 11/20 Acute on chronic systolic CHF ejection fraction of 35 to 40%Progress Note 11/20 Clarification regarding the type of CHF is requested. History/Risk Factors: 83yo M, Ureter StoneLthydronephrosis, ACHF, ATN, PAF, CKD Stg 3, HTN, HLD Clinical Indicators: VS/Pulse OX: 91-95 BNP: 5391 Echocardiogram Results: Dilated LV. ImpairedLV function with EF between 35-40%. Mild AR. Small to medium sizepericardial effusionlocated posteriorly Chest x ray: Nodefinitive evidence on this single view portable exam foraspiration. Cardiomegalyand mild pulmonary vascularcongestion. Correlate with BNP for congestive heart failure. Treatment: Agree with oral Lasix 40 mg daily In your professional opinion, can you please clarify the type of CHF if known? [ x ] Acute on Chronic Systolic Heart Failure (reduced EF) [ ] Acute on Chronic Diastolic Heart Failure (preserved EF) [ ] Acute on Chronic Heart Failure Systolic & Diastolic Heart Failure [ ] Other, please specify [ ] Unable to determine (Template Last Revised: August 2020) MARIELENAD
--- NOTE | 2023-11-23 20:12 | CDI ---
Documentation Clarification Form Date: 11/23/2023 08:00:00 PM From: Celia Birmingham Phone: Admit Date: 11/18/2023 08:52:00 AM Patient Name: Santosh Melton Visit Number: [id number] Discharge Date: 11/21/2023 04:53:00 PM ATTENTION: The Clinical Documentation Specialists (CDI) and [facility] Coding Staff appreciate your assistance in clarifying documentation. Please respond to the clarification below the line at the bottom and electronically sign. The CDI & [facility] Coding staff will review the response and follow-up if needed. Please note: Queries are made part of the Legal Health Record. If you have any questions, please contact the author of this message via ITS. Dr. Granados E Sheet Chronic kidney diseasestage IIIb per H&P and Progress Notes 11/16- 11/19 and DC Summary CKD Stage 3aper Consult 11/16 and Progress Note 11/17 & 11/19 are both documented. Clarification regarding the stage of CKD is requested. History/Risk Factors: 83yo M, Ureter Stone Lt hydronephrosis, ACHF, ATN, PAF, CKD Stg 3, HTN, HLD Baseline creatinine 1.4 mg/dL Clinical Indicators: BUN: 20 Cr: 1.41 AfAm 53 NonAf 46 Treatment: Lasix; Patient hasproteinuriawhich needs to be quantified. Please clarify the stage of the CKD, if known: [ ] CKD Stage 3a [ ] CKD Stage 3b [ ] Other, please specify [ ] Unable to determine Reference: [employer] Stage 1 eGFR = 90 and kidney damage for =3 months Stage 2 eGFR 60-89 and kidney damage for =3 months Stage 3a eGFR 45-59 and kidney damage for =3 months Stage 3b eGFR 30-44 and kidney damage for =3 months Stage 4 eGFR 15-29 r and kidney damage for =3 months Stage 5 eGFR <15 and kidney damage for =3 months (Template last revised: July 2023) Stage 3a MTDD
== END 2023-11-21 16:53 | DRG 659 ==
LOC: EC 13:37 → 5NMEDONC 11-16 00:54 → OBSVTOIN 11-18 08:52
PROVIDERS: ADMIT Internal Medicine; ATTEND Internal Medicine
PROC: 0T778DZ Dilation of Left Ureter with Intraluminal Device, Via Natural or Artificial Opening Endoscopic (ICD-10-PCS; principal; 2023-11-19 11:50)
PROC: 0TC78ZZ Extirpation of Matter from Left Ureter, Via Natural or Artificial Opening Endoscopic (ICD-10-PCS; 2023-11-19 11:50)
DX: N13.6 Pyonephrosis (principal); I50.23 Acute on chronic systolic (congestive) heart failure; E87.21 Acute metabolic acidosis; I13.0 Hypertensive heart and chronic kidney disease with heart failure and stage 1 through stage 4 chronic kidney disease, or unspecified chronic kidney disease; I31.39 Other pericardial effusion (noninflammatory); N17.0 Acute kidney failure with tubular necrosis; I49.5 Sick sinus syndrome; N18.31 Chronic kidney disease, stage 3a; I48.0 Paroxysmal atrial fibrillation; I08.3 Combined rheumatic disorders of mitral, aortic and tricuspid valves; N40.0 Benign prostatic hyperplasia without lower urinary tract symptoms; R09.02 Hypoxemia; E78.5 Hyperlipidemia, unspecified; Z79.01 Long term (current) use of anticoagulants; Z85.46 Personal history of malignant neoplasm of prostate; Z86.73 Personal history of transient ischemic attack (TIA), and cerebral infarction without residual deficits; Z95.0 Presence of cardiac pacemaker; Z87.891 Personal history of nicotine dependence; Z79.899 Other long term (current) drug therapy; Z11.52 Encounter for screening for COVID-19; Z92.3 Personal history of irradiation
CPT/HCPCS: 36415; 71045; 74018; 74150; 76770; 80048; 80053; 81001; 83735; 83880; 85025; 85027; 85610; 87040; 87086; 87636; 93005; 93306; 94640; 96361; 96365; 96375; 99285

== ENCOUNTER 2023-12-15 17:22 | Inpatient (IN) | payer MEDICARE, BC ==
--- NOTE | 2023-12-15 17:37 | ED ---
General Adult HPI - General Chief complaint: Shortness of Breath Stated complaint: SOB Time Seen by Provider: 12/15/23 17:28 Source: patient, RN/MD, EMS Mode of arrival: EMS Limitations: no limitations - History of Present Illness Initial comments: Patient presents to the ED by ambulance from his assisted for evaluation. Patient reports developing increased dyspnea over the past week or so. Patient states that he has also been coughing up "phlegm" for the past few days. EMS states that the patient is in a ventricular paced rhythm, but his EKG appeared to change with increased rate, so they diverted him here out of concern for possible STEMI. Per EMS, the patient was hypoxic on their arrival, so he was placed on a nonrebreather mask. Patient denies having any pain, fever or chills, headache, focal numbness/weakness/neuro deficit, chest pain or pressure, neck/arm/jaw/back pain, hemoptysis, palpitations, dizziness, nausea/vomiting/diaphoresis, abdominal pain, diarrhea, bloody or melanotic stool, dysuria or urinary symptoms, decreased urine output, leg or calf pain, or any other symptoms or complaints. All EMS EKGs were reviewed myself, and I do not see any EKG evidence of STEMI/ischemia. Patient's EKGs all demonstrate a ventricular paced rhythm and negative Sgarbossa criteria. - Related Data Home Medications Medication Instructions Recorded Confirmed Acetaminophen [Tylenol] 1,000 mg PO Q6H 05/30/21 11/16/23 Warfarin [Coumadin] 5 mg PO MOWEFR@209905/30/21 11/16/23 amLODIPine [Norvasc] 5 mg PO DAILY 05/30/21 11/16/23 Warfarin [Coumadin] 2.5 mg PO SUTUTHSA@209911/29/22 11/16/23 Ascorbic Acid [Vitamin C] 500 mg PO DAILY 12/15/23 12/15/23 Ciprofloxacin HCl [Cipro] 250 mg PO Q12HR 12/15/23 12/15/23 Lidocaine Hcl 2% Injection Solution 2 ml IM DIRECTED 12/15/23 12/15/23 Methylprednisolone Acetate 80 mg IM DIRECTED 12/15/23 12/15/23 Suspension 80mg/Ml Temazepam 7.5 mg PO HS 12/15/23 12/15/23 Zinc Gluconate [Zinc] 50 mg PO DAILY 12/15/23 12/15/23 atenoloL 25 mg PO BID 12/15/23 12/15/23 bisacodyL [Dulcolax] 10 mg PO DAILY 12/15/23 12/15/23 guaiFENesin [Diabetic Tussin Ex] 200 mg PO Q4H PRN 12/15/23 12/15/23 resveratroL [Resveratrol] 200 mg PO DAILY 12/15/23 12/15/23 Previous Rx's Medication Instructions Recorded Furosemide [Lasix] 40 mg PO DAILY tab 11/21/23 Sodium Bicarbonate Tab 650 mg PO BID tab 11/21/23 guaiFENesin-DM 100-10MG/5ML 10 ml PO Q6HR PRN 3 Days #100 ml 11/21/23 [Robitussin DM] polyethylene glycoL 3350 [Miralax] 17 gm PO DAILY 3 Days #3 packet 11/21/23 Allergies Allergy/AdvReac Type Severity Reaction Status Date / Time No Known Allergies Allergy Verified 12/15/23 19:23 Review of Systems ROS Statement: Those systems with pertinent positive or pertinent negative responses have been documented in the HPI. ROS Other: All systems not noted in ROS Statement are negative. Past Medical History Past Medical History: Atrial Fibrillation, Cancer, Heart Failure, CVA/TIA, GERD/Reflux, Hyperlipidemia, Hypertension, Prostate Disorder Additional Past Medical History / Comment(s): 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 dry skin on arms, numbness in last 2 fingers to left hand, kidney stone. History of Any Multi-Drug Resistant Organisms: None Reported Past Surgical History: Cholecystectomy, Hernia Repair, Orthopedic Surgery, Pacemaker Additional Past Surgical History / Comment(s): cervical fusion, lithrotripsy, Past Anesthesia/Blood Transfusion Reactions: No Reported Reaction Additional Past Anesthesia/Blood Transfusion Reaction / Comment(s): Pt has never recieved blood. Type of Cardiac Device: Permanent Pacemaker Device Placement Date:: 2013 Past Psychological History: No Psychological Hx Reported Smoking Status: Former smoker Past Alcohol Use History: None Reported Past Drug Use History: None Reported - Past Family History Father Family Medical History: Diabetes Mellitus Mother Family Medical History: Osteoarthritis (OA) Additional Family Medical History / Comment(s): arthritis General Exam Limitations: no limitations General appearance: alert Eye exam: Present: normal appearance ENT exam: Present: mucous membranes moist Neck exam: Present: other (Trachea is in midline) Respiratory exam: Present: rhonchi. Absent: respiratory distress, wheezes, stridor Cardiovascular Exam: Present: regular rate, normal rhythm, normal heart sounds, other (Normal radial pulses bilaterally) GI/Abdominal exam: Present: soft. Absent: tenderness, guarding Extremities exam: Absent: tenderness, pedal edema, calf tenderness Neurological exam: Present: alert, oriented X3 Psychiatric exam: Present: normal affect Skin exam: Present: warm, dry, normal color Course Vital Signs 12/15/23 12/15/23 12/15/23 17:24 17:41 18:57 Temperature 97.9 F Pulse Rate 83 61 Respiratory 22 16 Rate Blood Pressure 136/62 99/43 O2 Sat by Pulse 98 94 L 94 L Oximetry - Reevaluation(s) Reevaluation #1: 12/15/23 19:33 Case, H&P, test results and ED management thus far were discussed with Dr Yoder. She accepts hospital admission. She agrees with cardiology consultation. She has no further recommendations at this time. 12/15/23 19:44 Patient states that his dyspnea has improved at this time. Patient remains alert and breathing comfortably. Patient and family at bedside are aware of the patient's test results, and they all agree with hospital admission at this time. Patient denies development of any new symptoms while in the ED. EKG Findings - EKG Comments: EKG Findings:: ED physician interpretation (interpreted by me): Ventricular paced rhythm, ventricular rate of 75 bpm QRS duration of 193 ms, negative Sgarbossa criteria Medical Decision Making - Medical Decision Making Was pt. sent in by a medical professional or institution (, PA, NUCLEAR MEDICINE SPECIALIST, urgent care, hospital, or assisted...) When possible be specific @ -No Did you speak to anyone other than the patient for history (EMS, parent, family, police, friend...)? What history was obtained from this source @ -History was also provided by EMS. Did you review nursing and triage notes (agree or disagree)? Why? @ -I reviewed and agree with nursing and triage notes Were old charts reviewed (outside hosp., previous admission, EMS record, old EKG, old radiological studies, urgent care reports/EKG's, assisted records)? Report findings @ -No old charts were reviewed Differential Diagnosis (chest pain, altered mental status, abdominal pain women, abdominal pain men, vaginal bleeding, weakness, fever, dyspnea, syncope, headache, dizziness, GI bleed, back pain, seizure, CVA, palpatations, mental health, musculoskeletal)? @ -Differential Dyspnea: Coronary syndrome, arrhythmia, tamponade, asthma, COPD, COVID, URI, bronchitis, pneumonia, pneumothorax, pleural effusion, CHF, anemia, neuromuscular, this is not meant to be an all-inclusive list. EKG interpreted by me (3pts min.). @ -As above X-rays interpreted by me (1pt min.). @ -Chest x-ray was reviewed myself and demonstrates a left lower lobe infiltrate and/or pleural effusion. I agree with the radiologist interpretation as above. CT interpreted by me (1pt min.). @ -None done U/S interpreted by me (1pt. min.). @ -None done What testing was considered but not performed or refused? (CT, X-rays, U/S, labs)? Why? @ -None What meds were considered but not given or refused? Why? @ -None Did you discuss the management of the patient with other professionals (professionals i.e. , PA, NUCLEAR MEDICINE SPECIALIST, lab, RT, psych nurse, criminal justice social worker, wire frame lampshade maker, teacher, senior administrative services officer, caser shoe parts)? Give summary @ -As above. Was smoking cessation discussed for >3mins.? @ -No Was critical care preformed (if so, how long)? @ -Yes, 40 minutes. Were there social determinants of health that impacted care today? How? (Homelessness, low income, unemployed, alcoholism, drug addiction, transportation, low edu. Level, literacy, decrease access to med. care, retirement, rehab)? @ -No Was there de-escalation of care discussed even if they declined (Discuss DNR or withdrawal of care, Hospice)? DNR status @ -No What co-morbidities impacted this encounter? (DM, HTN, Smoking, COPD, CAD, Cancer, CVA, ARF, Chemo, Hep., AIDS, mental health diagnosis, sleep apnea, morbid obesity)? @ -None Was patient admitted / discharged? Hospital course, mention meds given and route, prescriptions, significant lab abnormalities, going to OR and other pertinent info. @ -Patient's EKG shows a ventricular paced rhythm and does not demonstrate any findings of ischemia and is negative for Sgarbossa criteria. Patient reports having a productive cough, he has a leukocytosis of 33,000, and his chest x-ray demonstrates a left lower lobe infiltrate. Patient's symptoms and findings are consistent with pneumonia. Patient has been treated with IV antibiotics in the ED. Blood cultures have been obtained. Patient's COVID test is also positive, but patient reports that he had a positive COVID test about 3 weeks ago, so unclear if he has active COVID infection at this time. Patient's troponin is also minimally elevated. Patient denies having any chest pain. Patient has been treated with a dose of aspirin in the ED. Patient is on warfarin anticoagulation therapy and his INR is supratherapeutic. Case was discussed with Dr. Yoder who has accepted hospital admission. Will admit the patient to the hospital at this time. Patient and family agree with this plan. Undiagnosed new problem with uncertain prognosis? @ -No Drug Therapy requiring intensive monitoring for toxicity (Heparin, Nitro, Insulin, Cardizem)? @ -No Were any procedures done? @ -No Diagnosis/symptom? @ -Hypoxic pneumonia Acute, or Chronic, or Acute on Chronic? @ -Default Uncomplicated (without systemic symptoms) or Complicated (systemic symptoms)? @ -Default Side effects of treatment? @ -No Exacerbation, Progression, or Severe Exacerbation? @ -No Poses a threat to life or bodily function? How? (Chest pain, [place], [place], pneumonia, PE, COPD, DKA, ARF, appy, cholecystitis, CVA, Diverticulitis, Homicidal, Suicidal, threat to staff... and all critical care pts) @ -Possible Diagnosis/symptom? @ -Elevated troponin Acute, or Chronic, or Acute on Chronic? @ -Default Uncomplicated (without systemic symptoms) or Complicated (systemic symptoms)? @ -Default Side effects of treatment? @ -None Exacerbation, Progression, or Severe Exacerbation] @ -No Poses a threat to life or bodily function? @ -Possible Diagnosis/symptom? @ -Supratherapeutic INR Acute, or Chronic, or Acute on Chronic? @ -Default Uncomplicated (without systemic symptoms) or Complicated (systemic symptoms)? @ -Default Side effects of treatment? @ -None Exacerbation, Progression, or Severe Exacerbation] @ -No Poses a threat to life or bodily function? @ -No Diagnosis/symptom? @ -Positive COVID test Acute, or Chronic, or Acute on Chronic? @ -Default Uncomplicated (without systemic symptoms) or Complicated (systemic symptoms)? @ -Default Side effects of treatment? @ -None Exacerbation, Progression, or Severe Exacerbation] @ -No Poses a threat to life or bodily function? @ -No - Lab Data Result diagrams: 12/15/23 17:36 12/15/23 17:36 Lab Results 12/15/23 12/15/23 12/15/23 Range/Units 17:36 17:36 17:36 WBC 33.4 H (3.8-10.6) k/uL RBC 4.23 L (4.30-5.90) m/uL Hgb 12.2 L (13.0-17.5) gm/dL Hct 36.9 L (39.0-53.0) % MCV 87.2 D (80.0-100.0) fL MCH 28.7 (25.0-35.0) pg MCHC 32.9 (31.0-37.0) g/dL RDW 14.0 (11.5-15.5) % Plt Count 435 (150-450) k/uL MPV 7.9 Neutrophils % (Manual) 79 % Band Neuts % (Manual) 15 % Lymphocytes % (Manual) 4 % Monocytes % (Manual) 2 % Neutrophils # (Manual) 31.30 H (1.3-7.7) k/uL Lymphocytes # (Manual) 1.34 (1.0-4.8) k/uL Monocytes # (Manual) 0.67 (0-1.0) k/uL Nucleated RBCs 0 (0-0) /100 WBC Manual Slide Review Performed PT 51.0 H (10.0-12.5) sec INR 5.2 H* (<1.2) APTT 43.4 H (22.0-30.0) sec Sodium 134 L (137-145) mmol/L Potassium 4.2 (3.5-5.1) mmol/L Chloride 103 (98-107) mmol/L Carbon Dioxide 26 (22-30) mmol/L Anion Gap 5 mmol/L BUN 37 H (9-20) mg/dL Creatinine 1.83 H (0.66-1.25) mg/dL Est GFR (CKD-EPI)AfAm 39 (>60 ml/min/1.73 sqM) Est GFR (CKD-EPI)NonAf 33 (>60 ml/min/1.73 sqM) Glucose 119 H (74-99) mg/dL Plasma Lactic Acid Yasir (0.7-2.0) mmol/L Calcium 7.9 L (8.4-10.2) mg/dL Magnesium 2.1 (1.6-2.3) mg/dL Total Bilirubin 0.5 (0.2-1.3) mg/dL AST 50 (17-59) U/L ALT 77 H (4-49) U/L Alkaline Phosphatase 91 (38-126) U/L Troponin I (0.000-0.034) ng/mL NT-Pro-B Natriuret Pep 6720 pg/mL Total Protein 5.5 L (6.3-8.2) g/dL Albumin 2.7 L (3.5-5.0) g/dL Influenza Type A (PCR) (Not Detectd) Influenza Type B (PCR) (Not Detectd) RSV (PCR) (Not Detectd) SARS-CoV-2 (PCR) (Not Detectd) 12/15/23 12/15/23 12/15/23 Range/Units 17:36 17:36 17:36 WBC (3.8-10.6) k/uL RBC (4.30-5.90) m/uL Hgb (13.0-17.5) gm/dL Hct (39.0-53.0) % MCV (80.0-100.0) fL MCH (25.0-35.0) pg MCHC (31.0-37.0) g/dL RDW (11.5-15.5) % Plt Count (150-450) k/uL MPV Neutrophils % (Manual) % Band Neuts % (Manual) % Lymphocytes % (Manual) % Monocytes % (Manual) % Neutrophils # (Manual) (1.3-7.7) k/uL Lymphocytes # (Manual) (1.0-4.8) k/uL Monocytes # (Manual) (0-1.0) k/uL Nucleated RBCs (0-0) /100 WBC Manual Slide Review PT (10.0-12.5) sec INR (<1.2) APTT (22.0-30.0) sec Sodium (137-145) mmol/L Potassium (3.5-5.1) mmol/L Chloride (98-107) mmol/L Carbon Dioxide (22-30) mmol/L Anion Gap mmol/L BUN (9-20) mg/dL Creatinine (0.66-1.25) mg/dL Est GFR (CKD-EPI)AfAm (>60 ml/min/1.73 sqM) Est GFR (CKD-EPI)NonAf (>60 ml/min/1.73 sqM) Glucose (74-99) mg/dL Plasma Lactic Acid Yasir 1.5 (0.7-2.0) mmol/L Calcium (8.4-10.2) mg/dL Magnesium (1.6-2.3) mg/dL Total Bilirubin (0.2-1.3) mg/dL AST (17-59) U/L ALT (4-49) U/L Alkaline Phosphatase (38-126) U/L Troponin I 0.062 H* (0.000-0.034) ng/mL NT-Pro-B Natriuret Pep pg/mL Total Protein (6.3-8.2) g/dL Albumin (3.5-5.0) g/dL Influenza Type A (PCR) Not Detected (Not Detectd) Influenza Type B (PCR) Not Detected (Not Detectd) RSV (PCR) Not Detected (Not Detectd) SARS-CoV-2 (PCR) Detected A (Not Detectd) - Radiology Data Chest x-ray: 1. Cardiomegaly 2. Left lower lobe infiltrate and/or pleural effusion Critical Care Time Critical Care Time: Yes Total Critical Care Time: 40 Disposition Clinical Impression: Dyspnea, Hypoxia, COVID-19 virus infection, Pneumonia, Elevated troponin, Supratherapeutic INR, Renal insufficiency Disposition: ADMITTED IP TO THIS HOSP Condition: Stable Is patient prescribed a controlled substance at d/c from ED?: No Referrals: Celina Munoz MD [Primary Care Provider] - 1-2 days Time of Disposition: 19:36
[2023-12-15 17:47] LABS: HCT 36.9 % (39.0-53.0); HGB 12.2 gm/dL (13.0-17.5); MCH 28.7 pg (25.0-35.0); MCHC 32.9 g/dL (31.0-37.0); MCV 87.2 fL (80.0-100.0); Mean Platelet Volume 7.9; Platelet Count 435 k/uL (150-450); RBC 4.23 m/uL (4.30-5.90); WBC 33.4 k/uL (3.8-10.6)
[2023-12-15 18:06] LABS: Partial Thromboplastin Time 43.4 sec (22.0-30.0)
--- NOTE | 2023-12-15 18:18 | XR ---
EXAMINATION TYPE: XR chest 1V portable DATE OF EXAM: 12/15/2023 COMPARISON: 12-12 INDICATION: Dyspnea TECHNIQUE: Single frontal view of the chest is obtained. FINDINGS: The heart size is enlarged. The pulmonary vasculature is normal. Left lower lobe infiltrate is present. A small effusion could be considered. Pacemaker overlies the l eft chest. Right lung appears clear. IMPRESSION: 1. Cardiomegaly. 2. Left lower lobe infiltrate and/or pleural effusion.
[2023-12-15 18:21] LABS: ALT 77 U/L (4-49); AST 50 U/L (17-59); African American GFR (CKD) 39 (>60 ml/min/1.73 sqM); Albumin 2.7 g/dL (3.5-5.0); Alkaline Phosphatase 91 U/L (38-126); Anion Gap 5 mmol/L; Blood Urea Nitrogen 37 mg/dL (9-20); Calcium 7.9 mg/dL (8.4-10.2); Carbon Dioxide 26 mmol/L (22-30); Chloride 103 mmol/L (98-107); Glucose 119 mg/dL (74-99); Magnesium 2.1 mg/dL (1.6-2.3); Non-African American GFR(CKD) 33 (>60 ml/min/1.73 sqM); Potassium 4.2 mmol/L (3.5-5.1); Sodium 134 mmol/L (137-145); Total Bilirubin 0.5 mg/dL (0.2-1.3); Total Protein 5.5 g/dL (6.3-8.2)
[2023-12-15 18:29] LABS: NT-Pro-B-Type Natriuretic Pept 6720 pg/mL
[2023-12-15 18:37] LABS: INR 5.2 (<1.2)
[2023-12-15] MEDS ORDERED: HEPARIN SODIUM 1,000 UN/ML (10ML VL) IV PRN (18:37)
[2023-12-15] MEDS ORDERED: HEPARIN SOD,PORK IN 0.45% NACL 25,000 UNIT in 0.45% NACL 1 250ML.BAG IV SCH (18:45)
[2023-12-15 18:51] LABS: Band Neutrophils % 15 %; Lymphocytes # (M) 1.34 k/uL (1.0-4.8); Monocytes # (M) 0.67 k/uL (0-1.0); Neutrophils % (M) 79 %; Nucleated Red Blood Cells 0 /100 WBC (0-0); Total Cells Counted 100
[2023-12-15] MEDS: HEPARIN SODIUM 1,000 UN/ML (10ML VL) IV ONE (18:54)
[2023-12-15] MEDS: ASPIRIN 81 MG PO STA (18:59)
[2023-12-15] MEDS ORDERED: NALOXONE 0.4 MG/ML 1 ML VIAL IV PRN (19:36)
[2023-12-15] MEDS: SODIUM CHLORIDE 0.9% 500 ML 500 ML IV ONE (19:57)
[2023-12-15] MEDS: AZITHROMYCIN 500 MG in SODIUM CHLORIDE 0.9% 250 ML IVPB STA (21:18)
[2023-12-16 04:05] LABS: Basophils % (A) 0 %; Eosinophils # (A) 0.1 k/uL (0-0.7); Eosinophils % (A) 0 %; HCT 36.1 % (39.0-53.0); HGB 11.5 gm/dL (13.0-17.5); Lymphocytes # (A) 0.5 k/uL (1.0-4.8); Lymphocytes % (A) 2 %; MCH 28.2 pg (25.0-35.0); MCHC 31.9 g/dL (31.0-37.0); MCV 88.5 fL (80.0-100.0); Mean Platelet Volume 7.8; Monocytes # (A) 1.6 k/uL (0-1.0); Monocytes % (A) 7 %; Neutrophils # (A) 21.6 k/uL (1.3-7.7); Neutrophils % (A) 90 %; Platelet Count 377 k/uL (150-450); RBC 4.08 m/uL (4.30-5.90); WBC 24.1 k/uL (3.8-10.6)
[2023-12-16 04:13] LABS: INR 4.4 (<1.2); Prothrombin Time 43.3 sec (10.0-12.5)
[2023-12-16 04:17] LABS: ALT 66 U/L (4-49); AST 39 U/L (17-59); African American GFR (CKD) 40 (>60 ml/min/1.73 sqM); Albumin 2.5 g/dL (3.5-5.0); Alkaline Phosphatase 79 U/L (38-126); Anion Gap 7 mmol/L; Blood Urea Nitrogen 41 mg/dL (9-20); Calcium 7.8 mg/dL (8.4-10.2); Carbon Dioxide 24 mmol/L (22-30); Chloride 104 mmol/L (98-107); Glucose 121 mg/dL (74-99); Non-African American GFR(CKD) 35 (>60 ml/min/1.73 sqM); Potassium 4.2 mmol/L (3.5-5.1); Sodium 135 mmol/L (137-145); Total Bilirubin 0.4 mg/dL (0.2-1.3); Total Protein 5.3 g/dL (6.3-8.2)
[2023-12-16] MEDS: DEXAMETHASONE SOD PHOSPHATE 10 MG/ML 1 ML VIAL IV SCH (12:11)
--- NOTE | 2023-12-16 12:26 | P.CRDCN ---
History of Present Illness Consult date: 12/16/23 Reason for Consult (text): Elevated troponins History of present illness: This is an 83-year-old male patient of Dr. Hawthorne with past medical history of hypertension, hyperlipidemia, paroxysmal atrial fibrillation, sick sinus syndrome status post permanent pacemaker, chronic mild lower extremity edema. We have been asked to evaluate the patient for elevated troponins. Patient states that he was in bed and couldn't move his legs, weakness, and also had sweats. According to ER notes, patient was brought into the hospital by EMS due to shortness of breath, cough with phlegm production for the last couple days. EMS apparently diverted patient to [facility] due to concerns that he was a ST elevated RI on EKG. Patient apparently was hypoxic was placed on a nonrebreather. Initial blood pressure was 136/62, and subsequently, blood pressures have been soft. The STEMI was ruled out upon arrival to the ER. He is feeling better at the time of evaluation. Patient had a recent hospitalization for ureter stone with hydronephrosis, status post laser lithotripsy on 11/18 and urinary tract infection. He was discharged to [facility] and tested positive for COVID when he arrived about 3 weeks ago. Yesterday, BP and pulse ox were low and patient was transferred to the hospital. Patient has been started on IV antibiotics x 1. Patient is seen today in the emergency center waiting for a bed on the cardiac stepdown unit. EKG ventricularly paced rhythm Chest x-ray: Cardiomegaly. Left lower lobe infiltrate and or pleural effusion Laboratory studies: WBC 24.1 down from 33.4, hemoglobin 11.5. INR initially 5.2 now 4.4. Sodium 135, potassium 4.2, BUN 41. Initial creatinine 1.83 and now 1.77. Glucose 121. Troponin 0.062, 0.054, 0.038. proBNP 6720. Influenza A, influenza B, RSV not detected. COVID-19 detected. Home cardiac medications: Amlodipine 5 mg daily, atenolol 25 mg twice daily, Lasix 40 mg daily, Coumadin 5 mg on Saturday and 2.5 mg on the other days. Echocardiogram performed 11/19/2023 reveals EF of 35 to 40%. Mild aortic regurgitation. Small to medium size pericardial effusion located posteriorly. Review Of Systems: At the time of my exam: CONSTITUTIONAL: Denies fever or chills. Reports sweats. Reports weakness. HEENT: Denies blurred vision, vision changes, or eye pain. Denies hemoptysis CARDIOVASCULAR: Denies chest pain. Denies orthopnea. Denies PND. Denies palpitations. Reports chronic lower extremity edema. RESPIRATORY: Denies shortness of breath. Reports dyspnea on exertion GASTROINTESTINAL: Denies abdominal pain. Denies nausea or vomiting. HEMATOLOGIC: Denies bleeding disorders. GENITOURINARY: Denies any blood in urine. SKIN: Denies pruitis. Denies rash. Physical examination: Gen: This is an 83-year-old male appears to be in no acute distress. VS: reviewed, blood pressure 105/56, heart rate 60, pulse ox 94% on 3 L nasal cannula. HEENT: Head is atraumatic, normocephalic. Pupils equal, round. Sclerae is anicteric. NECK: Supple. No JVD. LUNGS: Clear to auscultation. No wheezes or rhonchi. No intercostal retractions. HEART: Regular rate and rhythm. No murmur. ABDOMEN: Soft No tenderness. EXTREMITIES: Trace left greater than right lower extremity edema. No calf tenderness. NEUROLOGICAL: Patient is awake, alert and oriented x3. Assessment: COVID-19 with sepsis Left lower lobe infiltrate or pleural effusion Acute kidney injury Elevated troponins possibly due to acute kidney injury, COVID infection History of recent hydronephrosis status post cystoscopy on 11/18 Hypertension Hyperlipidemia Paroxysmal atrial fibrillation on Coumadin Coagulopathy secondary to Coumadin use and sepsis Sick sinus syndrome status post permanent pacemaker Mild chronic lower extremity edema Chronic diastolic heart failure, patient is currently euvolemic Valvular heart disease with moderate aortic regurgitation and moderate mitral regurgitation Plan: Continue patient's home cardiac medications with the following exceptions: Hold amlodipine and due to hypotension and hold Lasix for acute kidney injury. Parameters for atenolol to hold for systolic blood pressure less than 110 or heart rate less than 60 Hold Coumadin until INR is therapeutic No need to repeat echocardiogram Further recommendations to follow based upon clinical course Thank you kindly for this consultation. Nurse practitioner note has been reviewed, I agree with documented findings and plan of care. Patient was seen and examined. Past Medical History Past Medical History: Atrial Fibrillation, Cancer, Heart Failure, CVA/TIA, GERD/Reflux, Hyperlipidemia, Hypertension, Prostate Disorder Additional Past Medical History / Comment(s): tia-2004, See Dr Aguirre H&P, arthritis, uses walker or cane, enlarged prostate, prostate CA 2015(radiation), hx shingles some edema to left ankle using lasix. dry skin on arms, numbness in last 2 fingers to left hand, kidney stone. History of Any Multi-Drug Resistant Organisms: None Reported Past Surgical History: Cholecystectomy, Hernia Repair, Orthopedic Surgery, Pacemaker Additional Past Surgical History / Comment(s): cervical fusion, lithrotripsy, Past Anesthesia/Blood Transfusion Reactions: No Reported Reaction Additional Past Anesthesia/Blood Transfusion Reaction / Comment(s): Pt has never recieved blood. Type of Cardiac Device: Permanent Pacemaker Device Placement Date:: 2013 Past Psychological History: No Psychological Hx Reported Smoking Status: Former smoker Past Alcohol Use History: None Reported Past Drug Use History: None Reported - Past Family History Father Family Medical History: Diabetes Mellitus Mother Family Medical History: Osteoarthritis (OA) Additional Family Medical History / Comment(s): arthritis Medications and Allergies Home Medications Medication Instructions Recorded Confirmed Type Acetaminophen [Tylenol] 1,000 mg PO Q6H PRN 05/30/21 12/15/23 History Warfarin [Coumadin] 5 mg PO MOWEFR@209905/30/21 12/15/23 History amLODIPine [Norvasc] 5 mg PO DAILY 05/30/21 12/15/23 History Warfarin [Coumadin] 2.5 mg PO SUTUTHSA@2100 11/29/22 12/15/23 History Furosemide [Lasix] 40 mg PO DAILY tab 11/21/23 12/15/23 Rx Sodium Bicarbonate Tab 650 mg PO BID tab 11/21/23 12/15/23 Rx guaiFENesin-DM 100-10MG/5ML 10 ml PO Q6HR PRN 3 Days #100 ml 11/21/23 12/15/23 Rx [Robitussin DM] polyethylene glycoL 3350 [Miralax] 17 gm PO DAILY 3 Days #3 packet 11/21/23 12/15/23 Rx Ascorbic Acid [Vitamin C] 500 mg PO DAILY 12/15/23 12/15/23 History Ciprofloxacin HCl [Cipro] 250 mg PO Q12HR 12/15/23 12/15/23 History Lidocaine Hcl 2% Injection Solution 2 ml IM DIRECTED 12/15/23 12/15/23 History Methylprednisolone Acetate 80 mg IM DIRECTED 12/15/23 12/15/23 History Suspension 80mg/Ml Temazepam 7.5 mg PO HS 12/15/23 12/15/23 History Zinc Gluconate [Zinc] 50 mg PO DAILY 12/15/23 12/15/23 History atenoloL 25 mg PO BID 12/15/23 12/15/23 History bisacodyL [Dulcolax] 10 mg PO DAILY 12/15/23 12/15/23 History guaiFENesin [Diabetic Tussin Ex] 200 mg PO Q4H PRN 12/15/23 12/15/23 History resveratroL [Resveratrol] 200 mg PO DAILY 12/15/23 12/15/23 History Allergies Allergy/AdvReac Type Severity Reaction Status Date / Time No Known Allergies Allergy Verified 12/15/23 19:23 Physical Exam Vitals: Vital Signs Temp Pulse Pulse Resp BP BP Pulse Ox 12/16/23 08:02 98.0 F 60 18 105/56 12/16/23 06:00 60 15 99/51 94 L 12/16/23 04:39 60 19 92/47 94 L 12/16/23 00:05 60 20 81/49 94 L 12/15/23 20:13 61 18 93/54 100 12/15/23 19:58 60 20 85/43 93 L 12/15/23 18:57 61 16 99/43 94 L 12/15/23 17:41 94 L 12/15/23 17:24 97.9 F 83 22 136/62 98 Intake and Output 12/15/23 12/16/23 12/16/23 22:59 06:59 14:59 Other: # Voids 1 # Bowel Movements 1 Weight 122.47 kg Results 12/16/23 03:43 12/16/23 03:43 Cardiac Enzymes 12/15/23 12/15/23 12/15/23 Range/Units 17:36 17:36 21:27 AST 50 (17-59) U/L Troponin I 0.062 H* 0.054 H* (0.000-0.034) ng/mL 12/16/23 12/16/23 Range/Units 00:42 03:43 AST 39 (17-59) U/L Troponin I 0.038 H* (0.000-0.034) ng/mL Coagulation 12/15/23 12/16/23 12/16/23 Range/Units 17:36 00:42 03:43 PT 51.0 H 43.3 H (10.0-12.5) sec APTT 43.4 H 50.4 H (22.0-30.0) sec CBC 12/15/23 12/16/23 Range/Units 17:36 03:43 WBC 33.4 H 24.1 H (3.8-10.6) k/uL RBC 4.23 L 4.08 L (4.30-5.90) m/uL Hgb 12.2 L 11.5 L (13.0-17.5) gm/dL Hct 36.9 L 36.1 L (39.0-53.0) % Plt Count 435 377 (150-450) k/uL Comprehensive Metabolic Panel 12/15/23 12/16/23 Range/Units 17:36 03:43 Sodium 134 L 135 L (137-145) mmol/L Potassium 4.2 4.2 (3.5-5.1) mmol/L Chloride 103 104 (98-107) mmol/L Carbon Dioxide 26 24 (22-30) mmol/L BUN 37 H 41 H (9-20) mg/dL Creatinine 1.83 H 1.77 H (0.66-1.25) mg/dL Glucose 119 H 121 H (74-99) mg/dL Calcium 7.9 L 7.8 L (8.4-10.2) mg/dL AST 50 39 (17-59) U/L ALT 77 H 66 H (4-49) U/L Alkaline Phosphatase 91 79 (38-126) U/L Total Protein 5.5 L 5.3 L (6.3-8.2) g/dL Albumin 2.7 L 2.5 L (3.5-5.0) g/dL Current Medications Generic Name Dose Route Start Last Admin Trade Name Freq PRN Reason Stop Dose Admin Naloxone HCl 0.2 mg 12/15/23 19:36 Naloxone 0.4 Mg/Ml 1 Ml Vial IV Q2M PRN Opioid Reversal Intake and Output 12/15/23 12/16/23 12/16/23 22:59 06:59 14:59 Other: # Voids 1 # Bowel Movements 1 Weight 122.47 kg 12/16/23 03:43 12/16/23 03:43
[2023-12-16] MEDS: atenoloL 25 MG TAB PO SCH (12:38)
--- NOTE | 2023-12-16 14:05 | P.HPIM ---
History of Present Illness H&P Date: 12/16/23 History of present illness; patient is a 83-year-old gentleman past medical history significant for atrial fibrillation, hypertension who is currently resident of a long term who presented to ER for evaluation for worsening shortness of breath. Patient stated that he has been feeling short of breath for the last 1 week. Shortness of breath is present on rest as well as exertion. Patient is complaining of productive cough. Denies any chest pain. There is no complaint of fever or chills. Patient denies any nausea or vomiting. There is no complaint of lightheaded dizziness. Because of worsening shortness of breath EMS was called who found him to be tachypneic and short of breath and placed him on nonrebreather and brought him to the ER Initial lab work done in the ER showed WBC 33.4, hemoglobin 12.2, platelet count 435, PT 51, INR 5.2, sodium 134, potassium 4.2, BUN 37, creatinine 1.83, calcium 7.9, troponin 0.062 Influenza A not detected Influenza B not detected RSV not detected COVID-19 detected EKG done in the ER showed heart rate of 75, ventricular paced rhythm, no ST se gment elevation or depression seen, no T-wave inversions seen. Chest x-ray done in the ER showed cardiomegaly and left lower lobe infiltrate Patient admitted to internal medicine service REVIEW OF SYSTEMS: CONSTITUTIONAL: No fever, no malaise, no fatigue. HEENT: No recent visual problems or hearing problems. Denied any sore throat. CARDIOVASCULAR: As mentioned in HPI PULMONARY: Mentioned HPI GASTROINTESTINAL: No diarrhea, no nausea, no vomiting, no abdominal pain. NEUROLOGICAL: No headaches, no weakness, no numbness. HEMATOLOGICAL: Denies any bleeding or petechiae. GENITOURINARY: Denies any burning micturition, frequency, or urgency. MUSCULOSKELETAL/RHEUMATOLOGICAL: Denies any joint pain, swelling, or any muscle pain. ENDOCRINE: Denies any polyuria or polydipsia. The rest of the 14-point review of systems is negative. PHYSICAL EXAMINATION: GENERAL: The patient is alert and oriented x3, not in any acute distress. Well developed, well nourished. HEENT: Pupils are round and equally reacting to light. EOMI. No scleral icterus. No conjunctival pallor. Normocephalic, atraumatic. No pharyngeal erythema. No thyromegaly. CARDIOVASCULAR: S1 and S2 present. No murmurs, rubs, or gallops. PULMONARY: Chest is clear to auscultation, no wheezing or crackles. ABDOMEN: Soft, nontender, nondistended, normoactive bowel sounds. No palpable organomegaly. MUSCULOSKELETAL: No joint swelling or deformity. EXTREMITIES: No cyanosis, clubbing, or pedal edema. NEUROLOGICAL: Gross neurological examination did not reveal any focal deficits. SKIN: No rashes. Assessment and plan Acute hypoxic respiratory failure History of COVID-19 infection Supratherapeutic INR Elevated troponin Acute kidney injury Elevated troponins possibly due to acute kidney injury, COVID infection History of recent hydronephrosis status post cystoscopy on 11/18 Hypertension Hyperlipidemia Paroxysmal atrial fibrillation on Coumadin Coagulopathy secondary to Coumadin use and sepsis Sick sinus syndrome status post permanent pacemaker Mild chronic lower extremity edema Chronic diastolic heart failure, patient is currently euvolemic Valvular heart disease with moderate aortic regurgitation and moderate mitral regurgitation Monitor vital signs Monitor CBC Monitor CMP Continue telemetry monitoring Continue oxygen supplementation Continue IV steroids Ordered 2D echo Currently INR is supratherapeutic, hold Coumadin, daily INR checks Cardiology consulted Pulmonology consulted Labs and medication were reviewed.. Continue same treatment. Continue with symptomatic treatment. Resume home medication. Monitor labs and vitals. DVT and GI prophylaxis. Further recommendations as per clinical course of the patient Dictation was produced using [employer] dictation software. please excuse any grammatical, word or spelling errors. Past Medical History Past Medical History: Atrial Fibrillation, Cancer, Heart Failure, CVA/TIA, GERD/Reflux, Hyperlipidemia, Hypertension, Prostate Disorder Additional Past Medical History / Comment(s): 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 dry skin on arms, numbness in last 2 fingers to left hand, kidney stone. History of Any Multi-Drug Resistant Organisms: None Reported Past Surgical History: Cholecystectomy, Hernia Repair, Orthopedic Surgery, Pacemaker Additional Past Surgical History / Comment(s): cervical fusion, lithrotripsy, Past Anesthesia/Blood Transfusion Reactions: No Reported Reaction Additional Past Anesthesia/Blood Transfusion Reaction / Comment(s): Pt has never recieved blood. Type of Cardiac Device: Permanent Pacemaker Device Placement Date:: 2013 Past Psychological History: No Psychological Hx Reported Smoking Status: Former smoker Past Alcohol Use History: None Reported Past Drug Use History: None Reported - Past Family History Father Family Medical History: Diabetes Mellitus Mother Family Medical History: Osteoarthritis (OA) Additional Family Medical History / Comment(s): arthritis Medications and Allergies Home Medications Medication Instructions Recorded Confirmed Type Acetaminophen [Tylenol] 1,000 mg PO Q6H PRN 05/30/21 12/15/23 History Warfarin [Coumadin] 5 mg PO MOWEFR@209905/30/21 12/15/23 History amLODIPine [Norvasc] 5 mg PO DAILY 05/30/21 12/15/23 History Warfarin [Coumadin] 2.5 mg PO SUTUTHSA@209911/29/22 12/15/23 History Furosemide [Lasix] 40 mg PO DAILY tab 11/21/23 12/15/23 Rx Sodium Bicarbonate Tab 650 mg PO BID tab 11/21/23 12/15/23 Rx guaiFENesin-DM 100-10MG/5ML 10 ml PO Q6HR PRN 3 Days #100 ml 11/21/23 12/15/23 Rx [Robitussin DM] polyethylene glycoL 3350 [Miralax] 17 gm PO DAILY 3 Days #3 packet 11/21/23 12/15/23 Rx Ascorbic Acid [Vitamin C] 500 mg PO DAILY 12/15/23 12/15/23 History Ciprofloxacin HCl [Cipro] 250 mg PO Q12HR 12/15/23 12/15/23 History Lidocaine Hcl 2% Injection Solution 2 ml IM DIRECTED 12/15/23 12/15/23 History Methylprednisolone Acetate 80 mg IM DIRECTED 12/15/23 12/15/23 History Suspension 80mg/Ml Temazepam 7.5 mg PO HS 12/15/23 12/15/23 History Zinc Gluconate [Zinc] 50 mg PO DAILY 12/15/23 12/15/23 History atenoloL 25 mg PO BID 12/15/23 12/15/23 History bisacodyL [Dulcolax] 10 mg PO DAILY 12/15/23 12/15/23 History guaiFENesin [Diabetic Tussin Ex] 200 mg PO Q4H PRN 12/15/23 12/15/23 History resveratroL [Resveratrol] 200 mg PO DAILY 12/15/23 12/15/23 History Allergies Allergy/AdvReac Type Severity Reaction Status Date / Time No Known Allergies Allergy Verified 12/15/23 19:23 Physical Exam Vitals: Vital Signs Temp Pulse Pulse Resp BP BP Pulse Ox 12/16/23 08:02 98.0 F 60 18 105/56 12/16/23 06:00 60 15 99/51 94 L 12/16/23 04:39 60 19 92/47 94 L 12/16/23 00:05 60 20 81/49 94 L 12/15/23 20:13 61 18 93/54 100 12/15/23 19:58 60 20 85/43 93 L 12/15/23 18:57 61 16 99/43 94 L 12/15/23 17:41 94 L 12/15/23 17:24 97.9 F 83 22 136/62 98 Intake and Output 12/15/23 12/16/23 12/16/23 22:59 06:59 14:59 Intake Total 20 Balance 20 Intake: IV 20 Invasive Line 1 10 Invasive Line 2 10 Other: Voiding Method Diaper Incontinent # Voids 1 # Bowel Movements 1 Weight 122.47 kg Results CBC & Chem 7: 12/16/23 03:43 12/16/23 03:43 Labs: Abnormal Lab Results - Last 24 Hours (Table) 12/15/23 12/15/23 12/15/23 Range/Units 17:36 17:36 17:36 WBC 33.4 H (3.8-10.6) k/uL RBC 4.23 L (4.30-5.90) m/uL Hgb 12.2 L (13.0-17.5) gm/dL Hct 36.9 L (39.0-53.0) % Neutrophils # (1.3-7.7) k/uL Neutrophils # (Manual) 31.30 H (1.3-7.7) k/uL Lymphocytes # (1.0-4.8) k/uL Monocytes # (0-1.0) k/uL PT 51.0 H (10.0-12.5) sec INR 5.2 H* (<1.2) APTT 43.4 H (22.0-30.0) sec Sodium 134 L (137-145) mmol/L BUN 37 H (9-20) mg/dL Creatinine 1.83 H (0.66-1.25) mg/dL Glucose 119 H (74-99) mg/dL Calcium 7.9 L (8.4-10.2) mg/dL ALT 77 H (4-49) U/L Troponin I (0.000-0.034) ng/mL Total Protein 5.5 L (6.3-8.2) g/dL Albumin 2.7 L (3.5-5.0) g/dL SARS-CoV-2 (PCR) (Not Detectd) 12/15/23 12/15/23 12/15/23 Range/Units 17:36 17:36 21:27 WBC (3.8-10.6) k/uL RBC (4.30-5.90) m/uL Hgb (13.0-17.5) gm/dL Hct (39.0-53.0) % Neutrophils # (1.3-7.7) k/uL Neutrophils # (Manual) (1.3-7.7) k/uL Lymphocytes # (1.0-4.8) k/uL Monocytes # (0-1.0) k/uL PT (10.0-12.5) sec INR (<1.2) APTT (22.0-30.0) sec Sodium (137-145) mmol/L BUN (9-20) mg/dL Creatinine (0.66-1.25) mg/dL Glucose (74-99) mg/dL Calcium (8.4-10.2) mg/dL ALT (4-49) U/L Troponin I 0.062 H* 0.054 H* (0.000-0.034) ng/mL Total Protein (6.3-8.2) g/dL Albumin (3.5-5.0) g/dL SARS-CoV-2 (PCR) Detected A (Not Detectd) 12/16/23 12/16/23 12/16/23 Range/Units 00:42 00:42 03:43 WBC 24.1 H (3.8-10.6) k/uL RBC 4.08 L (4.30-5.90) m/uL Hgb 11.5 L (13.0-17.5) gm/dL Hct 36.1 L (39.0-53.0) % Neutrophils # 21.6 H (1.3-7.7) k/uL Neutrophils # (Manual) (1.3-7.7) k/uL Lymphocytes # 0.5 L (1.0-4.8) k/uL Monocytes # 1.6 H (0-1.0) k/uL PT (10.0-12.5) sec INR (<1.2) APTT 50.4 H (22.0-30.0) sec Sodium (137-145) mmol/L BUN (9-20) mg/dL Creatinine (0.66-1.25) mg/dL Glucose (74-99) mg/dL Calcium (8.4-10.2) mg/dL ALT (4-49) U/L Troponin I 0.038 H* (0.000-0.034) ng/mL Total Protein (6.3-8.2) g/dL Albumin (3.5-5.0) g/dL SARS-CoV-2 (PCR) (Not Detectd) 12/16/23 12/16/23 Range/Units 03:43 03:43 WBC (3.8-10.6) k/uL RBC (4.30-5.90) m/uL Hgb (13.0-17.5) gm/dL Hct (39.0-53.0) % Neutrophils # (1.3-7.7) k/uL Neutrophils # (Manual) (1.3-7.7) k/uL Lymphocytes # (1.0-4.8) k/uL Monocytes # (0-1.0) k/uL PT 43.3 H (10.0-12.5) sec INR 4.4 H (<1.2) APTT (22.0-30.0) sec Sodium 135 L (137-145) mmol/L BUN 41 H (9-20) mg/dL Creatinine 1.77 H (0.66-1.25) mg/dL Glucose 121 H (74-99) mg/dL Calcium 7.8 L (8.4-10.2) mg/dL ALT 66 H (4-49) U/L Troponin I (0.000-0.034) ng/mL Total Protein 5.3 L (6.3-8.2) g/dL Albumin 2.5 L (3.5-5.0) g/dL SARS-CoV-2 (PCR) (Not Detectd)
--- NOTE | 2023-12-16 15:13 | P.CNPUL ---
History of Present Illness Consult date: 12/16/23 Reason for consult: dyspnea, hypoxemia History of present illness: This is a 83-year-old male patient was at [facility] recovering from her recent h ospitalization and the patient was noted to be more short of breath over the past 1 week and more weak to the point where he was not having the stamina or energy and participating with rehab. Based on that, he was transferred to the hospital and EMS at the time of arrival found the patient to be hypoxic, placed in on 100% nonrebreather facemask and currently the patient is on room air oxygen with a pulse ox of 96%. The patient was initially weaned down to 3 L nasal cannula and currently is down to room air oxygen. I reviewed the chest x- ray from 7 admission and the patient has cardiomegaly and a stable left lower lobe atelectasis possibly a small effusion. Otherwise, no clear airspace di sease or consolidations. The white cell count of admission was 33 dropped down to 24, hemoglobin of 12.2 and a platelet count is at 435. The patient's INR was at 5.2 as the patient was taken warfarin and repeat INR from today is at 4.4. The patient has normal electrolytes, creatinine is at 1.8 at the time of admission down to 1.77. He does seem to have a component of chronic kidney disease and his creatinine has been chronically elevated. Troponins were 0.060.05 and 0.03 respectively. COVID-19 testing was positive. The patient was tested +3 weeks ago when he went to [facility] this was reported to be his first COVID-19 infection. As such, it is not a new onset infection and was diagnosed approximately 3 weeks ago. Noted the patient was in the hospital in October 2023 the patient was discharged home on 11/21/2023 after being treated for a obstructive uropathy and an acute on top of the cardiac kidney injury. The patient underwent a laser lithotripsy by urology on 11/19/2023. He was also treated for UTI. He has chronic A-fib, chronic stage IIIb chronic kidney disease, hypertension hyperlipidemia and is quite debilitated at this point and because of his overall generalized weakness he was transferred to [facility] on [facility] for further rehabilitation. The patient also had a repeat urinalysis has not been done. proBNP level was 6720. Echocardiogram done on 11/20/2023 showed impaired LV function with an ejection fraction of 35 to 40%, severely increased left ventricular systolic volume, moderate decrease in the LV global function, dilatation of the right atrium and moderate RV dilatation with normal RV systolic pressure. Mild aortic regurgitation was present. Small to medium sized paracardial effusion was located posteriorly. The patient was given IV fluids. He was given a bolus of 1 L in the emergency department. Cardiology has been consulted. EKG is showing a paced rhythm as the patient has underlying sick sinus syndrome and has a permanent pacemaker in place. He also has paroxysmal atrial fibrillation,. He was given IV Rocephin and Zithromax in the emergency. Review of Systems Constitutional: Reports fatigue, Reports weakness Eyes: denies as per HPI, denies blurred vision, denies bulging eye, denies decreased vision, denies diplopia, denies discharge, denies dry eye, denies irritation, denies itching, denies pain, denies photophobia, denies loss of peripheral vision, denies loss of vision, denies tunnel vision/blind spots Ears: deny: decreased hearing, ear discharge, earache, tinnitus Ears, nose, mouth and throat: Reports as per HPI Breasts: absent: as per HPI, gynecomastia Cardiovascular: Reports decreased exercise tolerance, Reports dyspnea on exertion, Reports irregular heart beat Respiratory: Reports as per HPI, Reports dyspnea Gastrointestinal: Reports as per HPI Genitourinary: Reports as per HPI Musculoskeletal: Reports as per HPI, Reports muscle weakness Musculoskeletal: bilateral: ankle swelling, absent: ankle pain, ankle stiffness Integumentary: Reports as per HPI Neurological: Reports as per HPI Psychiatric: Reports as per HPI Endocrine: Reports as per HPI Hematologic/Lymphatic: Reports as per HPI Allergic/Immunologic: Reports as per HPI Past Medical History Past Medical History: Atrial Fibrillation, Cancer, Heart Failure, CVA/TIA, GERD/Reflux, Hyperlipidemia, Hypertension, Prostate Disorder Additional Past Medical History / Comment(s): tia-2005, See Dr Aguirre H&P, arthritis, uses walker or cane, enlarged prostate, prostate CA 2014(radiation), hx shingles some edema to left ankle using lasix. dry skin on arms, numbness in last 2 fingers to left hand, kidney stone. History of Any Multi-Drug Resistant Organisms: None Reported Past Surgical History: Cholecystectomy, Hernia Repair, Orthopedic Surgery, Pacemaker Additional Past Surgical History / Comment(s): cervical fusion, lithrotripsy, Past Anesthesia/Blood Transfusion Reactions: No Reported Reaction Additional Past Anesthesia/Blood Transfusion Reaction / Comment(s): Pt has never recieved blood. Type of Cardiac Device: Permanent Pacemaker Device Placement Date:: 2013 Past Psychological History: No Psychological Hx Reported Smoking Status: Former smoker Past Alcohol Use History: None Reported Past Drug Use History: None Reported - Past Family History Father Family Medical History: Diabetes Mellitus Mother Family Medical History: Osteoarthritis (OA) Additional Family Medical History / Comment(s): arthritis Medications and Allergies Home Medications Medication Instructions Recorded Confirmed Type Acetaminophen [Tylenol] 1,000 mg PO Q6H PRN 05/30/21 12/15/23 History Warfarin [Coumadin] 5 mg PO [id number]@209905/30/21 12/15/23 History amLODIPine [Norvasc] 5 mg PO DAILY 05/30/21 12/15/23 History Warfarin [Coumadin] 2.5 mg PO SUTUTHSA@209911/29/22 12/15/23 History Furosemide [Lasix] 40 mg PO DAILY tab 11/21/23 12/15/23 Rx Sodium Bicarbonate Tab 650 mg PO BID tab 11/21/23 12/15/23 Rx guaiFENesin-DM 100-10MG/5ML 10 ml PO Q6HR PRN 3 Days #100 ml 11/21/23 12/15/23 Rx [Robitussin DM] polyethylene glycoL 3350 [Miralax] 17 gm PO DAILY 3 Days #3 packet 11/21/23 12/15/23 Rx Ascorbic Acid [Vitamin C] 500 mg PO DAILY 12/15/23 12/15/23 History Ciprofloxacin HCl [Cipro] 250 mg PO Q12HR 12/15/23 12/15/23 History Lidocaine Hcl 2% Injection Solution 2 ml IM DIRECTED 12/15/23 12/15/23 History Methylprednisolone Acetate 80 mg IM DIRECTED 12/15/23 12/15/23 History Suspension 80mg/Ml Temazepam 7.5 mg PO HS 12/15/23 12/15/23 History Zinc Gluconate [Zinc] 50 mg PO DAILY 12/15/23 12/15/23 History atenoloL 25 mg PO BID 12/15/23 12/15/23 History bisacodyL [Dulcolax] 10 mg PO DAILY 12/15/23 12/15/23 History guaiFENesin [Diabetic Tussin Ex] 200 mg PO Q4H PRN 12/15/23 12/15/23 History resveratroL [Resveratrol] 200 mg PO DAILY 12/15/23 12/15/23 History Allergies Allergy/AdvReac Type Severity Reaction Status Date / Time No Known Allergies Allergy Verified 12/15/23 19:23 Physical Exam Vitals: Vital Signs Temp Pulse Pulse Resp BP BP Pulse Ox 12/16/23 08:02 98.0 F 60 18 105/56 12/16/23 06:00 60 15 99/51 94 L 12/16/23 04:39 60 19 92/47 94 L 12/16/23 00:05 60 20 81/49 94 L 12/15/23 20:13 61 18 93/54 100 12/15/23 19:58 60 20 85/43 93 L 12/15/23 18:57 61 16 99/43 94 L 12/15/23 17:41 94 L 12/15/23 17:24 97.9 F 83 22 136/62 98 Intake and Output 12/15/23 12/16/23 12/16/23 22:59 06:59 14:59 Intake Total 20 Balance 20 Intake: IV 20 Invasive Line 1 10 Invasive Line 2 10 Other: Voiding Method Diaper Incontinent # Voids 1 # Bowel Movements 1 Weight 122.47 kg 122.47 kg Gen: This is an 83-year-old male appears to be in no acute distress. Patient is, calm and comfortable. Patient is currently on room air oxygen. Does not look to be toxic Head exam was generally normal. There was no scleral icterus or corneal arcus. Mucous membranes were moist. HEENT: Head is atraumatic, normocephalic. Pupils equal, round. Sclerae is anicteric. Neck was supple and without jugular venous distension, thyromegaly, or carotid bruits. Carotids were easily palpable bilaterally. There was no adenopathy. LUNGS: Clear to auscultation. No wheezes or rhonchi. No intercostal retract ions. HEART: Regular rate and rhythm. No murmur. The cardiac rhythm is paced Abdominal exam revealed normal bowel sounds. The abdomen was soft, non-tender, and without masses, organomegaly, or appreciable enlargement of the abdominal aorta. EXTREMITIES: Trace left greater than right lower extremity edema. No calf tenderness. NEUROLOGICAL: Patient is awake, alert and oriented x3. Results - Laboratory Findings CBC and BMP: 12/16/23 03:43 12/16/23 03:43 PT/INR, D-dimer PT 43.3 sec (10.0-12.5) H 12/16/23 03:43 INR 4.4 (<1.2) H 12/16/23 03:43 Abnormal lab findings: Abnormal Labs 12/15/23 12/15/23 12/15/23 17:36 17:36 17:36 WBC 33.4 H RBC 4.23 L Hgb 12.2 L Hct 36.9 L Neutrophils # Neutrophils # (Manual) 31.30 H Lymphocytes # Monocytes # PT 51.0 H INR 5.2 H* APTT 43.4 H Sodium 134 L BUN 37 H Creatinine 1.83 H Glucose 119 H Calcium 7.9 L ALT 77 H Troponin I Total Protein 5.5 L Albumin 2.7 L SARS-CoV-2 (PCR) 12/15/23 12/15/23 12/15/23 17:36 17:36 21:27 WBC RBC Hgb Hct Neutrophils # Neutrophils # (Manual) Lymphocytes # Monocytes # PT INR APTT Sodium BUN Creatinine Glucose Calcium ALT Troponin I 0.062 H* 0.054 H* Total Protein Albumin SARS-CoV-2 (PCR) Detected A 12/16/23 12/16/23 12/16/23 00:42 00:42 03:43 WBC 24.1 H RBC 4.08 L Hgb 11.5 L Hct 36.1 L Neutrophils # 21.6 H Neutrophils # (Manual) Lymphocytes # 0.5 L Monocytes # 1.6 H PT INR APTT 50.4 H Sodium BUN Creatinine Glucose Calcium ALT Troponin I 0.038 H* Total Protein Albumin SARS-CoV-2 (PCR) 12/16/23 12/16/23 03:43 03:43 WBC RBC Hgb Hct Neutrophils # Neutrophils # (Manual) Lymphocytes # Monocytes # PT 43.3 H INR 4.4 H APTT Sodium 135 L BUN 41 H Creatinine 1.77 H Glucose 121 H Calcium 7.8 L ALT 66 H Troponin I Total Protein 5.3 L Albumin 2.5 L SARS-CoV-2 (PCR) - Diagnostic Findings Chest x-ray: image reviewed Assessment and Plan Plan: Shortness of breath and acute hypoxic respiratory failure, improved and the patient is currently on oxygen. Reviewed the chest x-ray and it shows some atelectatic changes left lung base along with possibly a small left-sided pleural effusion. No clear airspace disease or consolidation. Pneumonia is doubtful at this point in time. COVID-19 infection diagnosed 3 weeks ago and the patient is persistently positive over the past 3 weeks. This has been his first infection with COVID-19 which probably was contracted at the [facility] on the [place] facility. Acute leukocytosis, improving Chronic stage IIIb kidney disease Paroxysmal atrial fibrillation, current rhythm is paced History of sick sinus syndrome maintained on a pacemaker Chronic systolic heart failure with impaired ejection fraction of 30 to 35% Elevated troponin, related to demand type of ischemia type II, EKG is nonspecific and shows a paced rhythm Long-term anticoagulation with warfarin Hypertension Hyperlipidemia History of prostate cancer treated by radiation therapy History of recurrent UTIs History of hydronephrosis with renal stones and a complicated urine tract infection status post laser lithotripsy that was done on 11/19/2023 requiring a brief hospitalization back then. The patient was seen by neurology. Patient underwent a cystoscopy with left ureteroscopy and laser lithotripsy and stone basketing and ureteral dilatation with stent insertion. Significant debility and the patient has been undergoing rehabilitation at the [facility] on the [place]. Plan Monitor oxygenation the patient is currently on room air oxygen No signs of any significant respiratory distress Obtain a urinalysis and urine culture Cover the patient with IV Rocephin Monitor the white cell count Blood cultures have been sent Monitor PT/INR and adjust warfarin dose to maintain INR between 2 and 3 Cardiology consultation Will continue to follow.
[2023-12-16] MEDS: TEMAZEPAM 7.5 MG CAP PO SCH (21:13)
[2023-12-16] MEDS: SODIUM BICARBONATE TAB 650 MG TAB PO SCH (21:13)
[2023-12-16] MEDS: guaiFENesin SYRUP 100MG/5ML 200 MG/10 ML CUP PO PRN (21:18)
[2023-12-17 08:23] LABS: Basophils % (A) 0 %; Eosinophils % (A) 0 %; HCT 36.3 % (39.0-53.0); HGB 11.5 gm/dL (13.0-17.5); Lymphocytes # (A) 0.6 k/uL (1.0-4.8); Lymphocytes % (A) 3 %; MCH 28.2 pg (25.0-35.0); MCHC 31.6 g/dL (31.0-37.0); MCV 89.3 fL (80.0-100.0); Monocytes # (A) 0.5 k/uL (0-1.0); Monocytes % (A) 3 %; Neutrophils # (A) 16.5 k/uL (1.3-7.7); Neutrophils % (A) 93 %; Platelet Count 367 k/uL (150-450); RBC 4.06 m/uL (4.30-5.90); RDW 14.2 % (11.5-15.5); WBC 17.8 k/uL (3.8-10.6)
[2023-12-17 09:06] LABS: ALT 52 U/L (4-49); AST 30 U/L (17-59); African American GFR (CKD) 63 (>60 ml/min/1.73 sqM); Albumin 2.9 g/dL (3.5-5.0); Alkaline Phosphatase 85 U/L (38-126); Anion Gap 4 mmol/L; Blood Urea Nitrogen 37 mg/dL (9-20); Calcium 7.9 mg/dL (8.4-10.2); Carbon Dioxide 25 mmol/L (22-30); Chloride 106 mmol/L (98-107); Glucose 135 mg/dL (74-99); Non-African American GFR(CKD) 55 (>60 ml/min/1.73 sqM); Potassium 4.4 mmol/L (3.5-5.1); Sodium 135 mmol/L (137-145); Total Bilirubin 0.3 mg/dL (0.2-1.3); Total Protein 5.8 g/dL (6.3-8.2)
--- NOTE | 2023-12-17 10:50 | US ---
EXAMINATION TYPE: US chest DATE OF EXAM: 12/17/2023 COMPARISON: NONE CLINICAL INDICATION: Male, 83 years old with history of Left effusion; TECHNIQUE: Targeted ultrasound of the posterior lower bilateral hemithoraces EXAM MEASUREMENTS: Right Pleural Effusion pocket size: 0 cm Left Pleural Effusion pocket size: 0 cm Right NOT side marked for possible thoracentesis outside the dept. Left NOT side marked for possible thoracentesis outside the dept. Pulmonologists are able to review the images in the patient?s EMR. IMPRESSIONS: No sizable pleural effusion.
--- NOTE | 2023-12-17 12:57 | P.PN ---
Subjective Progress Note Date: 12/17/23 patient is a 83-year-old gentleman past medical history significant for atrial fibrillation, hypertension who is currently resident of a care home who presented to ER for evaluation for worsening shortness of breath. Patient stated that he has been feeling short of breath for the last 1 week. Shortness of breath is present on rest as well as exertion. Patient is complaining of productive cough. Denies any chest pain. There is no complaint of fever or chills. Patient denies any nausea or vomiting. There is no complaint of lightheaded dizziness. Because of worsening shortness of breath EMS was called who found him to be tachypneic and short of breath and placed him on nonrebreather and brought him to the ER Initial lab work done in the ER showed WBC 33.4, hemoglobin 12.2, platelet count 435, PT 51, INR 5.2, sodium 134, potassium 4.2, BUN 37, creatinine 1.83, calcium 7.9, troponin 0.062 Influenza A not detected Influenza B not detected RSV not detected COVID-19 detected EKG done in the ER showed heart rate of 75, ventricular paced rhythm, no ST segment elevation or depression seen, no T-wave inversions seen. Chest x-ray done in the ER showed cardiomegaly and left lower lobe infiltrate Patient admitted to internal medicine service 12/16. Patient seen and examined. Breathing is improved. Still complaining of cough. Denies any chest pain REVIEW OF SYSTEMS: CONSTITUTIONAL: No fever, no malaise,. CARDIOVASCULAR: No chest pain, no palpitations, no syncope. PULMONARY: As mentioned above GASTROINTESTINAL: No diarrhea, no nausea, no vomiting, no abdominal pain. NEUROLOGICAL: No headaches, no weakness, PHYSICAL EXAMINATION: GENERAL: The patient is alert and oriented x3, not in any acute distress. Well developed, well nourished. HEENT: Pupils are round and equally reacting to light. EOMI. No scleral icterus. No conjunctival pallor. Normocephalic, atraumatic. No pharyngeal erythema. No thyromegaly. CARDIOVASCULAR: S1 and S2 present. No murmurs, rubs, or gallops. PULMONARY: Chest is clear to auscultation, no wheezing or crackles. ABDOMEN: Soft, nontender, nondistended, normoactive bowel sounds. No palpable organomegaly. MUSCULOSKELETAL: No joint swelling or deformity. EXTREMITIES: No cyanosis, clubbing, or pedal edema. NEUROLOGICAL: Gross neurological examination did not reveal any focal deficits. SKIN: No rashes. Assessment and plan Acute hypoxic respiratory failure History of COVID-19 infection Supratherapeutic INR Elevated troponin Acute kidney injury Elevated troponins possibly due to acute kidney injury, COVID infection History of recent hydronephrosis status post cystoscopy on 11/18 Hypertension Hyperlipidemia Paroxysmal atrial fibrillation on Coumadin Coagulopathy secondary to Coumadin use and sepsis Sick sinus syndrome status post permanent pacemaker Mild chronic lower extremity edema Chronic diastolic heart failure, patient is currently euvolemic Valvular heart disease with moderate aortic regurgitation and moderate mitral re gurgitation Monitor vital signs Monitor CBC Monitor CMP Continue telemetry monitoring Continue oxygen supplementation Continue IV Rocephin And breathing treatments Ordered 2D echo Currently INR is supratherapeutic, hold Coumadin, daily INR checks Cardiology following Pulmonary following Labs and medication were reviewed.. Continue same treatment. Continue with symptomatic treatment. Resume home medication. Monitor labs and vitals. DVT and GI prophylaxis. Further recommendations as per clinical course of the patient Dictation was produced using [employer] dictation software. please excuse any grammatical, word or spelling errors. Objective - Vital Signs Vital signs: Vital Signs Temp 97.5 F L 12/17/23 08:48 Pulse 60 12/17/23 08:48 Resp 18 12/17/23 08:48 BP 132/64 12/17/23 08:48 Pulse Ox 93 L 12/17/23 08:48 FiO2 Intake & Output 12/16/23 12/17/23 12/17/23 18:59 06:59 18:59 Intake Total 40 200 Output Total 400 Balance 40 -400 200 Weight 122.47 kg Intake: IV 40 20 Invasive Line 1 20 10 Invasive Line 2 20 10 Oral 180 Output: Urine 400 Other: Voiding Method Diaper Incontinent Incontinent Incontinent External Catheter External Catheter # Voids 1 # Bowel Movements 1 - Labs CBC & Chem 7: 12/17/23 07:30 12/17/23 07:30 Labs: Abnormal Lab Results - Last 24 Hours (Table) 12/17/23 12/17/23 Range/Units 07:30 07:30 WBC 17.8 H (3.8-10.6) k/uL RBC 4.06 L (4.30-5.90) m/uL Hgb 11.5 L (13.0-17.5) gm/dL Hct 36.3 L (39.0-53.0) % Neutrophils # 16.5 H (1.3-7.7) k/uL Lymphocytes # 0.6 L (1.0-4.8) k/uL Sodium 135 L (137-145) mmol/L BUN 37 H (9-20) mg/dL Glucose 135 H (74-99) mg/dL Calcium 7.9 L (8.4-10.2) mg/dL ALT 52 H (4-49) U/L Total Protein 5.8 L (6.3-8.2) g/dL Albumin 2.9 L (3.5-5.0) g/dL Microbiology - Last 24 Hours (Table) 12/15/23 19:25 Blood Culture - Preliminary Blood 12/15/23 19:10 Blood Culture - Preliminary Blood
--- NOTE | 2023-12-17 14:50 | P.PN ---
Subjective Patient is resting comfortably in bed. No orthopnea PND Denies any chest discomfort On examination breath sounds are reduced bilaterally but there are no rhonchi no crackles Blood pressure normal 125/58 mmHg pulse rate in the 60s afebrile No lower extremity edema Normal heart sounds no murmurs or gallop Labs elevated white count 17.8 thousand, hemoglobin low 11.5, mild Sodium 135, potassium 4.4 BUN 37 creatinine 1.22 Impression Acute hypoxic respiratory failure with recent COVID-19 infection but stable from a respiratory standpoint at this time Supratherapeutic INR Borderline elevated troponins in the setting of acute kidney injury and infection Recent hydronephrosis Sick sinus syndrome status post permanent pacemaker implantation Preserved systolic function with chronic diastolic heart failure Moderate aortic and moderate mitral regurgitation Plan At discharge, resume amlodipine Continue Lasix 40 mg p.o. daily Continue atenolol 25 mg twice daily Readjust warfarin Objective - Vital Signs Vital signs: Vital Signs Temp 97.7 F 12/17/23 11:25 Pulse 64 12/17/23 11:25 Resp 16 12/17/23 11:25 BP 125/58 12/17/23 11:25 Pulse Ox 92 L 12/17/23 11:25 FiO2 Intake & Output 12/16/23 12/17/23 12/17/23 18:59 06:59 18:59 Intake Total 40 328 Output Total 400 550 Balance 40 -400 -222 Weight 122.47 kg Intake: IV 40 30 Invasive Line 1 20 20 Invasive Line 2 20 10 Oral 298 Output: Urine 400 550 Other: Voiding Method Diaper Incontinent Incontinent Incontinent External Catheter External Catheter # Voids 1 # Bowel Movements 1 - Labs CBC & Chem 7: 12/17/23 07:30 12/17/23 07:30 Labs: Abnormal Lab Results - Last 24 Hours (Table) 12/17/23 12/17/23 Range/Units 07:30 07:30 WBC 17.8 H (3.8-10.6) k/uL RBC 4.06 L (4.30-5.90) m/uL Hgb 11.5 L (13.0-17.5) gm/dL Hct 36.3 L (39.0-53.0) % Neutrophils # 16.5 H (1.3-7.7) k/uL Lymphocytes # 0.6 L (1.0-4.8) k/uL Sodium 135 L (137-145) mmol/L BUN 37 H (9-20) mg/dL Glucose 135 H (74-99) mg/dL Calcium 7.9 L (8.4-10.2) mg/dL ALT 52 H (4-49) U/L Total Protein 5.8 L (6.3-8.2) g/dL Albumin 2.9 L (3.5-5.0) g/dL Microbiology - Last 24 Hours (Table) 12/15/23 19:25 Blood Culture - Preliminary Blood 12/15/23 19:10 Blood Culture - Preliminary Blood
--- NOTE | 2023-12-17 15:21 | P.PN ---
Subjective Progress Note Date: 12/17/23 Principal diagnosis: Subacute COVID-19 infection This is a 83-year-old male patient was at [facility] recovering from her recent hospitalization and the patient was noted to be more short of breath over the past 1 week and more weak to the point where he was not having the stamina or energy and participating with rehab. Based on that, he was transferred to the hospital and EMS at the time of arrival found the patient to be hypoxic, placed in on 100% nonrebreather facemask and currently the patient is on room air oxygen with a pulse ox of 96%. The patient was initially weaned down to 3 L nasal cannula and currently is down to room air oxygen. I reviewed the chest x- ray from 7 admission and the patient has cardiomegaly and a stable left lower lobe atelectasis possibly a small effusion. Otherwise, no clear airspace disease or consolidations. The white cell count of admission was 33 dropped down to 24, hemoglobin of 12.2 and a platelet count is at 435. The patient's INR was at 5.2 as the patient was taken warfarin and repeat INR from today is at 4.4. The patient has normal electrolytes, creatinine is at 1.8 at the time of admission down to 1.77. He does seem to have a component of chronic kidney disease and his creatinine has been chronically elevated. Troponins were 0.060.05 and 0.03 respectively. COVID-19 testing was positive. The patient was tested +3 weeks ago when he went to [facility] this was reported to be his first COVID-19 infection. As such, it is not a new onset infection and was diagnosed approximately 3 weeks ago. Noted the patient was in the hospital in October 2023 the patient was discharged home on 11/21/2023 after being treated for a obstructive uropathy and an acute on top of the cardiac kidney injury. The patient underwent a laser lithotripsy by urology on 11/19/2023. He was also treated for UTI. He has chronic A-fib, chronic stage IIIb chronic kidney disease, hypertension hyperlipidemia and is quite debilitated at this point and because of his overall generalized weakness he was transferred to [facility] on [facility] for further rehabilitation. The patient also had a repeat urinalysis has not been done. proBNP level was 6720. Echocardiogram done on 11/20/2023 showed impaired LV function with an ejection fraction of 35 to 40%, severely increased left ventricular systolic volume, moderate decrease in the LV global function, dilatation of the right atrium and moderate RV dilatation with normal RV systolic pressure. Mild aortic regurgitation was present. Small to medium sized paracardial effusion was located posteriorly. The patient was given IV fluids. He was given a bolus of 1 L in the emergency department. Cardiology has been consulted. EKG is showing a paced rhythm as the patient has underlying sick sinus syndrome and has a permanent pacemaker in place. He also has paroxysmal atrial fibrillation,. He was given IV Rocephin and Zithromax in the emergency. Reevaluate today on 12/17/2023, patient continues to do well, he is on room air O2 sats of 92%, chest x-ray was reviewed, ultrasound was ordered, and there is not enough fluid in the left pleural space to consider thoracentesis for f indings in the left retrocardiac area seems to be findings of atelectasis. Patient remains to be afebrile with a temp of 97 7, heart rate 64 blood pressure 124/58, and his pulse is 83 WBC count is improving down to 17.8 from 33.4 on admission his hemoglobin is 11.5. And basic metabolic profile is normal, renal profile is steadily improving with creatinine down to 1.22 from 1.83 on admission. Considering the patient is not requiring any oxygen, will go ahead and discontinue his Decadron. Objective - Vital Signs Vital signs: Vital Signs Temp 97.7 F 12/17/23 11:25 Pulse 64 12/17/23 11:25 Resp 16 12/17/23 11:25 BP 125/58 12/17/23 11:25 Pulse Ox 92 L 12/17/23 11:25 FiO2 Intake & Output 12/16/23 12/17/23 12/17/23 18:59 06:59 18:59 Intake Total 40 328 Output Total 400 550 Balance 40 -400 -222 Weight 122.47 kg Intake: IV 40 30 Invasive Line 1 20 20 Invasive Line 2 20 10 Oral 298 Output: Urine 400 550 Other: Voiding Method Diaper Incontinent Incontinent Incontinent External Catheter External Catheter # Voids 1 # Bowel Movements 1 - Exam Gen: Revealed 83-year-old white male on room air, not in any distress. head: Atraumatic normocephalic. HEENT: PERRLA, EOMI, nonicteric. Neck was supple and without jugular venous distension, thyromegaly, or carotid bruits. LUNGS: Clear to auscultation. No wheezes or rhonchi. No intercostal retractions. Slightly diminished breath sound at the left base no rhonchi no wheezes HEART: Regular rate and rhythm. No murmur. The cardiac rhythm is paced Abdominal exam revealed normal bowel sounds. The abdomen was soft, non-tender, and without masses, organomegaly EXTREMITIES: No clubbing edema or cyanosis NEUROLOGICAL: Patient is awake, alert and oriented x3. Psychiatric: Normal mood affect and no mental status examination Skin: No rash - Labs CBC & Chem 7: 12/17/23 07:30 12/17/23 07:30 Labs: Abnormal Lab Results - Last 24 Hours (Table) 12/17/23 12/17/23 Range/Units 07:30 07:30 WBC 17.8 H (3.8-10.6) k/uL RBC 4.06 L (4.30-5.90) m/uL Hgb 11.5 L (13.0-17.5) gm/dL Hct 36.3 L (39.0-53.0) % Neutrophils # 16.5 H (1.3-7.7) k/uL Lymphocytes # 0.6 L (1.0-4.8) k/uL Sodium 135 L (137-145) mmol/L BUN 37 H (9-20) mg/dL Glucose 135 H (74-99) mg/dL Calcium 7.9 L (8.4-10.2) mg/dL ALT 52 H (4-49) U/L Total Protein 5.8 L (6.3-8.2) g/dL Albumin 2.9 L (3.5-5.0) g/dL Microbiology - Last 24 Hours (Table) 12/15/23 19:25 Blood Culture - Preliminary Blood 12/15/23 19:10 Blood Culture - Preliminary Blood Assessment and Plan Assessment: Impression: Subacute COVID-19 infection Acute leukocytosis, improving, patient is empirically receiving Rocephin, procalcitonin level is pending Possible left lower lobe atelectasis/consolidation/pneumonia, procalcitonin level is pending patient is on Rocephin and showing improvement in his leukocytosis Chronic stage IIIb kidney disease Paroxysmal atrial fibrillation History of sick sinus syndrome Chronic systolic congestive heart failure with impaired ejection fraction of 30 to 35% Hypertension History of recurrent urinary tract infections History of prostate cancer status postradiation treatment Medical debility requiring rehabilitation at the [facility] Recommendation: Continue present supportive care measures Continue Rocephin, check urine cultures blood cultures and sputum cultures Check procalcitonin level Continue to monitor WBC count Adjust Coumadin dose to INR levels Ultrasound of the chest was reviewed, no evidence of pleural effusion Will continue to follow. Time with Patient: Less than 30
[2023-12-17 16:11] LABS: INR 4.9 (<1.2); Prothrombin Time 47.5 sec (10.0-12.5)
[2023-12-17 19:21] LABS: Appearance,Urine Turbid (Clear); Bacteria,Urine Many /hpf; Bilirubin,Urine Negative (Negative); Blood,Urine Moderate (Negative); Color,Urine Red; Glucose,Urine (UA) Negative (Negative); Ketones,Urine Negative (Negative); Leukocyte Esterase,Urine Large (Negative); Nitrite,Urine Positive (Negative); Protein,Urine 3+ (Negative); RBC,Urine >182 /hpf (0-5); Specific Gravity,Urine 1.021 (1.001-1.035); Urobilinogen,Urine <2.0 mg/dL (<2.0); WBC,Urine >182 /hpf (0-5)
[2023-12-18 10:41] LABS: Basophils % (A) 0 %; Eosinophils % (A) 0 %; Lymphocytes # (A) 0.5 k/uL (1.0-4.8); Lymphocytes % (A) 4 %; MCHC 33.4 g/dL (31.0-37.0); MCV 89.8 fL (80.0-100.0); Mean Platelet Volume 8.4; Monocytes # (A) 0.7 k/uL (0-1.0); Monocytes % (A) 6 %; Neutrophils # (A) 10.6 k/uL (1.3-7.7); Neutrophils % (A) 89 %; Platelet Count 387 k/uL (150-450); RBC 3.67 m/uL (4.30-5.90); RDW 14.2 % (11.5-15.5); WBC 11.9 k/uL (3.8-10.6)
[2023-12-18 10:42] LABS: INR 4.7 (<1.2); Prothrombin Time 45.9 sec (10.0-12.5)
[2023-12-18 10:55] LABS: ALT 43 U/L (4-49); AST 31 U/L (17-59); African American GFR (CKD) 62 (>60 ml/min/1.73 sqM); Albumin 2.9 g/dL (3.5-5.0); Alkaline Phosphatase 71 U/L (38-126); Anion Gap 6 mmol/L; Blood Urea Nitrogen 39 mg/dL (9-20); Calcium 8.4 mg/dL (8.4-10.2); Carbon Dioxide 25 mmol/L (22-30); Chloride 105 mmol/L (98-107); Glucose 136 mg/dL (74-99); Non-African American GFR(CKD) 54 (>60 ml/min/1.73 sqM); Potassium 4.5 mmol/L (3.5-5.1); Sodium 136 mmol/L (137-145); Total Bilirubin 0.3 mg/dL (0.2-1.3); Total Protein 5.6 g/dL (6.3-8.2)
[2023-12-18] MEDS: WARFARIN 0.5 MG TAB PO ONE (12:02)
--- NOTE | 2023-12-18 13:12 | CDI ---
Documentation Clarification Form Date: 12/18/2023 From: Roxana Cevallos Phone: [phone] Admit Date: 12/15/2023 07:38:00 PM Patient Name: Santosh Melton Visit Number: [id number] Discharge Date: ATTENTION: The Clinical Documentation Specialists (CDI) and [facility] Coding Staff appreciate your assistance in clarifying documentation. Please respond to the clarification below the line at the bottom and electronically sign. The CDI & [facility] Coding staff will review the response and follow-up if needed. Please note: Queries are made part of the Legal Health Record. If you have any questions, please contact the author of this message via ITS. JODY Heredia: Your patient has troponin level(s) of: 0.062, 0.054 on 12/14 and 0.038 on 12/15. Please clarify if there is an additional diagnosis and/or clinical significance related to this value. Patient history/risk factors: 83-year-old male with a history of AFib, CHF, HTN, CVA/TIA who presents with increased dyspnea, COVID 19 positive, elevated troponin Clinical indicators: 12/14 Triage VS: 136/62, 97.9, 83, 22, 98% 15 liters NRB 12/15 Cardiology consult, Assessment: "Elevated troponins possibly due to acute kidney injury, COVID infection" 12/16 Pulmonology consult, Assessment and Plan: "Elevated troponin, related to demand type of ischemia type II, EKG is nonspecific and shows a paced rhythm." 12/16 Cardiology Impression: "Borderline elevated troponins in the setting of acute kidney injury and infection." 12/14-12/17 BUN: 37, 41, 37, 39 Creatinine: 1.83, 1.77, 1.22, 1.24 12/14 SARS-CoV-2: Detected 12/13 EKG: Electronic ventricular pacemaker, abnormal rhythm EKG Treatment: Monitor troponin, EKG Consult Cardiology Continue home cardiac meds but hold amlodipine (5mg oral daily) due to hypotension and hold Lasix (40mg oral daily) due to acute kidney injury Atenolol 25mg oral BID start 12/16 Ceftriaxone 1gram IV Q24 hours start 12/15 Is there an additional diagnosis and/or clinical significance related to the above lab result/information: MY dictation does not include anything about abnormal troponins. If you wish to have further clarification about DOCUMENTATION, then you need to assign this query to the individuals who documented about troponins, which is not me. I can not clarify someone else's dictation. Elif Mijares dictated on 12/16/[address] Hawthorne dictated on 12/17/2023. Please assign this to one of them if you require further clarification on THEIR dictation. Thank you. Response "Elevated troponins possibly due to acute kidney injury, COVID infection" [ xxxx ] Non-ischemic with acute myocardial injury Reference: [place] [employer] [address] Definition of Myocardial Infraction Elevated Cardiac Troponin >99th percentile with Troponin rise and/or fall With Acute ischemia o Acute Myocardial Infarction ? Atherosclerosis thrombosis Type I KS ? Oxygen supply and demand imbalance Type II [place] (Please indicate etiology) Without acute ischemia o Acute Myocardial Injury MTDD
--- NOTE | 2023-12-18 13:22 | P.PN ---
Subjective HISTORY OF PRESENT ILLNESS: Patient examined this morning at the bedside. Patient currently denies any chest pain or pressure. He denies any shortness of breath. He reports improvement in his coughing today. Vital signs are stable. INR today was 4.7. PHYSICAL EXAM: VITAL SIGNS: Reviewed. GENERAL: Well-developed in no acute distress. NECK: Supple. No JVD or thyromegaly LUNGS: Respirations even and unlabored. Lungs essentially clear to auscultation bilaterally. HEART: Regular rate and rhythm. S1 and S2 heard. EXTREMITIES: Normal range of motion. No clubbing or cyanosis. Peripheral pulses intact. No lower extremity edema ASSESSMENT: Subacute COVID-19 infection Supratherapeutic INR Sick sinus syndrome status post pacemaker implantation Valvular heart disease PLAN: Continue current cardiac medications Resume Coumadin when coagulopathy resolves. Pharmacy to dose. No further inpatient recommendations from a cardiac standpoint Will sign off. Please reconsult if needed. Nurse practitioner note has been reviewed by physician. Signing provider agrees with the documented findings, assessment, and plan of care documented by COMMUNITY SERVICE SPECIALIST as a scribe. Objective - Vital Signs Vital signs: Vital Signs Temp 97.6 F 12/18/23 07:46 Pulse 62 12/18/23 11:59 Resp 16 12/18/23 11:59 BP 131/68 12/18/23 11:59 Pulse Ox 92 L 12/18/23 11:59 FiO2 Intake & Output 12/17/23 12/18/23 12/18/23 18:59 06:59 18:59 Intake Total 508 240 Output Total 1000 500 Balance -492 -500 240 Intake: IV 30 Invasive Line 1 20 Invasive Line 2 10 Oral 478 240 Output: Urine 1000 500 Other: Voiding Method Incontinent Incontinent Incontinent External Catheter External Catheter External Catheter # Bowel Movements 1 - Labs CBC & Chem 7: 12/18/23 09:17 12/18/23 09:17 Labs: Abnormal Lab Results - Last 24 Hours (Table) 12/17/23 12/17/23 12/17/23 Range/Units 07:30 15:36 18:48 WBC (3.8-10.6) k/uL RBC (4.30-5.90) m/uL Hgb (13.0-17.5) gm/dL Hct (39.0-53.0) % Neutrophils # (1.3-7.7) k/uL Lymphocytes # (1.0-4.8) k/uL PT 47.5 H (10.0-12.5) sec INR 4.9 H (<1.2) Sodium (137-145) mmol/L BUN (9-20) mg/dL Glucose (74-99) mg/dL Total Protein (6.3-8.2) g/dL Albumin (3.5-5.0) g/dL Procalcitonin 30.80 H (0.02-0.09) ng/mL Urine Protein 3+ H (Negative) Urine Blood Moderate H (Negative) Ur Leukocyte Esterase Large H (Negative) Urine RBC >182 H (0-5) /hpf Urine WBC >182 H (0-5) /hpf Urine WBC Clumps Many H (None) /hpf Urine Bacteria Many H (None) /hpf 12/18/23 12/18/23 12/18/23 Range/Units 09:17 09:17 09:38 WBC 11.9 H (3.8-10.6) k/uL RBC 3.67 L (4.30-5.90) m/uL Hgb 11.0 L (13.0-17.5) gm/dL Hct 33.0 L (39.0-53.0) % Neutrophils # 10.6 H (1.3-7.7) k/uL Lymphocytes # 0.5 L (1.0-4.8) k/uL PT 45.9 H (10.0-12.5) sec INR 4.7 H (<1.2) Sodium 136 L (137-145) mmol/L BUN 39 H (9-20) mg/dL Glucose 136 H (74-99) mg/dL Total Protein 5.6 L (6.3-8.2) g/dL Albumin 2.9 L (3.5-5.0) g/dL Procalcitonin (0.02-0.09) ng/mL Urine Protein (Negative) Urine Blood (Negative) Ur Leukocyte Esterase (Negative) Urine RBC (0-5) /hpf Urine WBC (0-5) /hpf Urine WBC Clumps (None) /hpf Urine Bacteria (None) /hpf Microbiology - Last 24 Hours (Table) 12/15/23 19:25 Blood Culture - Preliminary Blood 12/15/23 19:10 Blood Culture - Preliminary Blood
--- NOTE | 2023-12-18 14:22 | P.PN ---
Subjective patient is a 83-year-old gentleman past medical history significant for atrial fibrillation, hypertension who is currently resident of a care home who presented to ER for evaluation for worsening shortness of breath. Patient stated that he has been feeling short of breath for the last 1 week. Shortness of breath is present on rest as well as exertion. Patient is complaining of productive cough. Denies any chest pain. There is no complaint of fever or chills. Patient denies any nausea or vomiting. There is no complaint of lightheaded dizziness. Because of worsening shortness of breath EMS was called who found him to be tachypneic and short of breath and placed him on nonrebreather and brought him to the ER Initial lab work done in the ER showed WBC 33.4, hemoglobin 12.2, platelet count 435, PT 51, INR 5.2, sodium 134, potassium 4.2, BUN 37, creatinine 1.83, calcium 7.9, troponin 0.062 Influenza A not detected Influenza B not detected RSV not detected COVID-19 detected EKG done in the ER showed heart rate of 75, ventricular paced rhythm, no ST segment elevation or depression seen, no T-wave inversions seen. Chest x-ray done in the ER showed cardiomegaly and left lower lobe infiltrate Patient admitted to internal medicine service 12/16. Patient seen and examined. Breathing is improved. Still complaining of cough. Denies any chest pain 12/17. Patient seen and examined. Currently not requiring any oxygen. States he feels much better. INR is still above 4 REVIEW OF SYSTEMS: CONSTITUTIONAL: No fever, no malaise,. CARDIOVASCULAR: No chest pain, no palpitations, no syncope. PULMONARY: As mentioned above GASTROINTESTINAL: No diarrhea, no nausea, no vomiting, no abdominal pain. NEUROLOGICAL: No headaches, no weakness, PHYSICAL EXAMINATION: GENERAL: The patient is alert and oriented x3, not in any acute distress. Well developed, well nourished. HEENT: Pupils are round and equally reacting to light. EOMI. No scleral icterus. No conjunctival pallor. Normocephalic, atraumatic. No pharyngeal erythema. No thyromegaly. CARDIOVASCULAR: S1 and S2 present. No murmurs, rubs, or gallops. PULMONARY: Chest is clear to auscultation, no wheezing or crackles. ABDOMEN: Soft, nontender, nondistended, normoactive bowel sounds. No palpable organomegaly. MUSCULOSKELETAL: No joint swelling or deformity. EXTREMITIES: No cyanosis, clubbing, or pedal edema. NEUROLOGICAL: Gross neurological examination did not reveal any focal deficits. SKIN: No rashes. Assessment and plan Acute hypoxic respiratory failure History of COVID-19 infection Supratherapeutic INR Elevated troponin Acute kidney injury UTI Elevated troponins possibly due to acute kidney injury, COVID infection History of recent hydronephrosis status post cystoscopy on 11/18 Hypertension Hyperlipidemia Paroxysmal atrial fibrillation on Coumadin Coagulopathy secondary to Coumadin use and sepsis Sick sinus syndrome status post permanent pacemaker Mild chronic lower extremity edema Chronic diastolic heart failure, patient is currently euvolemic Valvular heart disease with moderate aortic regurgitation and moderate mitral regurgitation Monitor vital signs Monitor CBC Monitor CMP Continue telemetry monitoring Continue oxygen supplementation Continue IV Rocephin Continue breathing treatments Currently INR is supratherapeutic, hold Coumadin, daily INR checks Cardiology following Pulmonary following Labs and medication were reviewed.. Continue same treatment. Continue with symptomatic treatment. Resume home medication. Monitor labs and vitals. DVT and GI prophylaxis. Further recommendations as per clinical course of the josy ent Dictation was produced using [employer] dictation software. please excuse any grammatical, word or spelling errors. Objective - Vital Signs Vital signs: Vital Signs Temp 97.6 F 12/18/23 07:46 Pulse 62 12/18/23 13:45 Resp 16 12/18/23 11:59 BP 131/68 12/18/23 11:59 Pulse Ox 92 L 12/18/23 11:59 FiO2 Intake & Output 12/17/23 12/18/23 12/18/23 18:59 06:59 18:59 Intake Total 508 420 Output Total 1000 500 Balance -492 -500 420 Intake: IV 30 Invasive Line 1 20 Invasive Line 2 10 Oral 478 420 Output: Urine 1000 500 Other: Voiding Method Incontinent Incontinent Incontinent External Catheter External Catheter External Catheter # Bowel Movements 1 - Labs CBC & Chem 7: 12/18/23 09:17 12/18/23 09:17 Labs: Abnormal Lab Results - Last 24 Hours (Table) 12/17/23 12/17/23 12/17/23 Range/Units 07:30 15:36 18:48 WBC (3.8-10.6) k/uL RBC (4.30-5.90) m/uL Hgb (13.0-17.5) gm/dL Hct (39.0-53.0) % Neutrophils # (1.3-7.7) k/uL Lymphocytes # (1.0-4.8) k/uL PT 47.5 H (10.0-12.5) sec INR 4.9 H (<1.2) Sodium (137-145) mmol/L BUN (9-20) mg/dL Glucose (74-99) mg/dL Total Protein (6.3-8.2) g/dL Albumin (3.5-5.0) g/dL Procalcitonin 30.80 H (0.02-0.09) ng/mL Urine Protein 3+ H (Negative) Urine Blood Moderate H (Negative) Ur Leukocyte Esterase Large H (Negative) Urine RBC >182 H (0-5) /hpf Urine WBC >182 H (0-5) /hpf Urine WBC Clumps Many H (None) /hpf Urine Bacteria Many H (None) /hpf 12/18/23 12/18/23 12/18/23 Range/Units 09:17 09:17 09:38 WBC 11.9 H (3.8-10.6) k/uL RBC 3.67 L (4.30-5.90) m/uL Hgb 11.0 L (13.0-17.5) gm/dL Hct 33.0 L (39.0-53.0) % Neutrophils # 10.6 H (1.3-7.7) k/uL Lymphocytes # 0.5 L (1.0-4.8) k/uL PT 45.9 H (10.0-12.5) sec INR 4.7 H (<1.2) Sodium 136 L (137-145) mmol/L BUN 39 H (9-20) mg/dL Glucose 136 H (74-99) mg/dL Total Protein 5.6 L (6.3-8.2) g/dL Albumin 2.9 L (3.5-5.0) g/dL Procalcitonin (0.02-0.09) ng/mL Urine Protein (Negative) Urine Blood (Negative) Ur Leukocyte Esterase (Negative) Urine RBC (0-5) /hpf Urine WBC (0-5) /hpf Urine WBC Clumps (None) /hpf Urine Bacteria (None) /hpf Microbiology - Last 24 Hours (Table) 12/15/23 19:25 Blood Culture - Preliminary Blood 12/15/23 19:10 Blood Culture - Preliminary Blood
--- NOTE | 2023-12-18 15:07 | P.PN ---
Subjective Progress Note Date: 12/18/23 Principal diagnosis: Subacute COVID-19 infection This is a 83-year-old male patient was at [facility] recovering from her recent hospitalization and the patient was noted to be more short of breath over the past 1 week and more weak to the point where he was not having the stamina or energy and participating with rehab. Based on that, he was transferred to the hospital and EMS at the time of arrival found the patient to be hypoxic, placed in on 100% nonrebreather facemask and currently the patient is on room air oxygen with a pulse ox of 96%. The patient was initially weaned down to 3 L nasal cannula and currently is down to room air oxygen. I reviewed the chest x- ray from 7 admission and the patient has cardiomegaly and a stable left lower lobe atelectasis possibly a small effusion. Otherwise, no clear airspace disease or consolidations. The white cell count of admission was 33 dropped down to 24, hemoglobin of 12.2 and a platelet count is at 435. The patient's INR was at 5.2 as the patient was taken warfarin and repeat INR from today is at 4.4. The patient has normal electrolytes, creatinine is at 1.8 at the time of admission down to 1.77. He does seem to have a component of chronic kidney disease and his creatinine has been chronically elevated. Troponins were 0.060.05 and 0.03 respectively. COVID-19 testing was positive. The patient was tested +3 weeks ago when he went to [facility] this was reported to be his first COVID-19 infection. As such, it is not a new onset infection and was diagnosed approximately 3 weeks ago. Noted the patient was in the hospital in October 2023 the patient was discharged home on 11/21/2023 after being treated for a obstructive uropathy and an acute on top of the cardiac kidney injury. The patient underwent a laser lithotripsy by urology on 11/19/2023. He was also treated for UTI. He has chronic A-fib, chronic stage IIIb chronic kidney disease, hypertension hyperlipidemia and is quite debilitated at this point and because of his overall generalized weakness he was transferred to [facility] on [facility] for further rehabilitation. The patient also had a repeat urinalysis has not been done. proBNP level was 6720. Echocardiogram done on 11/20/2023 showed impaired LV function with an ejection fraction of 35 to 40%, severely increased left ventricular systolic volume, moderate decrease in the LV global function, dilatation of the right atrium and moderate RV dilatation with normal RV systolic pressure. Mild aortic regurgitation was present. Small to medium sized paracardial effusion was located posteriorly. The patient was given IV fluids. He was given a bolus of 1 L in the emergency department. Cardiology has been consulted. EKG is showing a paced rhythm as the patient has underlying sick sinus syndrome and has a permanent pacemaker in place. He also has paroxysmal atrial fibrillation,. He was given IV Rocephin and Zithromax in the emergency. Reevaluate today on 12/17/2023, patient continues to do well, he is on room air O2 sats of 92%, chest x-ray was reviewed, ultrasound was ordered, and there is not enough fluid in the left pleural space to consider thoracentesis for f indings in the left retrocardiac area seems to be findings of atelectasis. Patient remains to be afebrile with a temp of 97 7, heart rate 64 blood pressure 124/58, and his pulse is 83 WBC count is improving down to 17.8 from 33.4 on admission his hemoglobin is 11.5. And basic metabolic profile is normal, renal profile is steadily improving with creatinine down to 1.22 from 1.83 on admission. Considering the patient is not requiring any oxygen, will go ahead and discontinue his Decadron. Patient was evaluated today on 12/18/2023, patient is laying in bed, not in distress, not on oxygen, feels good, no cough, no fever no chills, no chest pain, his INR is supra therapeutic, INR of 4.7, patient has Coumadin on hold presently. His CBC is relatively unremarkable hemoglobin is 11 WBC count is 11.9 basic metabolic profile is normal BUN is 39 creatinine 1.24 patient does have hematuria and most likely it is related to trauma from Aguilar catheter considering his elevated INR nonetheless may have to be addressed by urology Objective - Vital Signs Vital signs: Vital Signs Temp 97.6 F 12/18/23 07:46 Pulse 62 12/18/23 13:45 Resp 16 12/18/23 11:59 BP 131/68 12/18/23 11:59 Pulse Ox 92 L 12/18/23 11:59 FiO2 Intake & Output 12/17/23 12/18/23 12/18/23 18:59 06:59 18:59 Intake Total 508 420 Output Total 1000 500 Balance -492 -500 420 Intake: IV 30 Invasive Line 1 20 Invasive Line 2 10 Oral 478 420 Output: Urine 1000 500 Other: Voiding Method Incontinent Incontinent Incontinent External Catheter External Catheter External Catheter # Bowel Movements 1 - Exam Gen: Revealed 83-year-old white male on room air, not in any distress. head: Atraumatic normocephalic. HEENT: PERRLA, EOMI, nonicteric. Neck was supple and without jugular venous distension, thyromegaly, or carotid bruits. LUNGS: Clear to auscultation. No wheezes or rhonchi. No intercostal retractions. Slightly diminished breath sound at the left base no rhonchi no wheezes HEART: Regular rate and rhythm. No murmur. The cardiac rhythm is paced Abdominal exam revealed normal bowel sounds. The abdomen was soft, non-tender, and without masses, organomegaly EXTREMITIES: No clubbing edema or cyanosis NEUROLOGICAL: Patient is awake, alert and oriented x3. Psychiatric: Normal mood affect and no mental status examination Skin: No rash - Labs CBC & Chem 7: 12/18/23 09:17 12/18/23 09:17 Labs: Abnormal Lab Results - Last 24 Hours (Table) 12/17/23 12/17/23 12/17/23 Range/Units 07:30 15:36 18:48 WBC (3.8-10.6) k/uL RBC (4.30-5.90) m/uL Hgb (13.0-17.5) gm/dL Hct (39.0-53.0) % Neutrophils # (1.3-7.7) k/uL Lymphocytes # (1.0-4.8) k/uL PT 47.5 H (10.0-12.5) sec INR 4.9 H (<1.2) Sodium (137-145) mmol/L BUN (9-20) mg/dL Glucose (74-99) mg/dL Total Protein (6.3-8.2) g/dL Albumin (3.5-5.0) g/dL Procalcitonin 30.80 H (0.02-0.09) ng/mL Urine Protein 3+ H (Negative) Urine Blood Moderate H (Negative) Ur Leukocyte Esterase Large H (Negative) Urine RBC >182 H (0-5) /hpf Urine WBC >182 H (0-5) /hpf Urine WBC Clumps Many H (None) /hpf Urine Bacteria Many H (None) /hpf 12/18/23 12/18/23 12/18/23 Range/Units 09:17 09:17 09:38 WBC 11.9 H (3.8-10.6) k/uL RBC 3.67 L (4.30-5.90) m/uL Hgb 11.0 L (13.0-17.5) gm/dL Hct 33.0 L (39.0-53.0) % Neutrophils # 10.6 H (1.3-7.7) k/uL Lymphocytes # 0.5 L (1.0-4.8) k/uL PT 45.9 H (10.0-12.5) sec INR 4.7 H (<1.2) Sodium 136 L (137-145) mmol/L BUN 39 H (9-20) mg/dL Glucose 136 H (74-99) mg/dL Total Protein 5.6 L (6.3-8.2) g/dL Albumin 2.9 L (3.5-5.0) g/dL Procalcitonin (0.02-0.09) ng/mL Urine Protein (Negative) Urine Blood (Negative) Ur Leukocyte Esterase (Negative) Urine RBC (0-5) /hpf Urine WBC (0-5) /hpf Urine WBC Clumps (None) /hpf Urine Bacteria (None) /hpf Microbiology - Last 24 Hours (Table) 12/15/23 19:25 Blood Culture - Preliminary Blood 12/15/23 19:10 Blood Culture - Preliminary Blood Assessment and Plan Assessment: Impression: Subacute COVID-19 infection Acute leukocytosis, improving, patient is empirically receiving Rocephin, procalcitonin level is extremely elevated. Possible left lower lobe atelectasis/consolidation/pneumonia, no evidence of pleural effusion noted on ultrasound of the chest. Chronic stage IIIb kidney disease Paroxysmal atrial fibrillation History of sick sinus syndrome Chronic systolic congestive heart failure with impaired ejection fraction of 30 to 35% Hypertension History of recurrent urinary tract infections History of prostate cancer status postradiation treatment Medical debility requiring rehabilitation at the [facility] on the [facility] Hematuria probably related to Aguilar catheter trauma and elevated INR Recommendation: Continue present supportive care measures Continue Rocephin, check urine cultures and blood cultures as well as sputum culture Procalcitonin level is extremely elevated at 30.8 Continue to monitor WBC count Hold Coumadin for now Ultrasound of the chest was reviewed, no evidence of pleural effusion Will continue to follow. Time with Patient: Less than 30
[2023-12-18] MEDS: ZINC OXIDE PASTE (Z-GUARD) 1 APPLIC TOPICAL PRN (18:44)
[2023-12-19 10:02] LABS: ALT 48 U/L (4-49); AST 37 U/L (17-59); African American GFR (CKD) 50 (>60 ml/min/1.73 sqM); Albumin 2.8 g/dL (3.5-5.0); Alkaline Phosphatase 75 U/L (38-126); Anion Gap 5 mmol/L; Blood Urea Nitrogen 36 mg/dL (9-20); Carbon Dioxide 24 mmol/L (22-30); Chloride 105 mmol/L (98-107); Glucose 83 mg/dL (74-99); Non-African American GFR(CKD) 43 (>60 ml/min/1.73 sqM); Potassium 4.9 mmol/L (3.5-5.1); Sodium 134 mmol/L (137-145); Total Bilirubin 0.4 mg/dL (0.2-1.3); Total Protein 5.7 g/dL (6.3-8.2)
[2023-12-19 10:11] LABS: INR 3.4 (<1.2); Prothrombin Time 33.2 sec (10.0-12.5)
[2023-12-19 10:49] LABS: Basophils % (A) 0 %; Eosinophils % (A) 0 %; HGB 11.5 gm/dL (13.0-17.5); Lymphocytes # (A) 0.4 k/uL (1.0-4.8); Lymphocytes % (A) 3 %; MCHC 31.1 g/dL (31.0-37.0); MCV 90.2 fL (80.0-100.0); Mean Platelet Volume 8.1; Monocytes % (A) 7 %; Neutrophils # (A) 12.7 k/uL (1.3-7.7); Neutrophils % (A) 89 %; Platelet Count 373 k/uL (150-450); RBC 4.11 m/uL (4.30-5.90); RDW 14.2 % (11.5-15.5); WBC 14.3 k/uL (3.8-10.6)
--- NOTE | 2023-12-19 13:16 | P.PN ---
Subjective Progress Note Date: 12/19/23 patient is a 83-year-old gentleman past medical history significant for atrial fibrillation, hypertension who is currently resident of a correction who presented to ER for evaluation for worsening shortness of breath. Patient stated that he has been feeling short of breath for the last 1 week. Shortness of breath is present on rest as well as exertion. Patient is complaining of productive cough. Denies any chest pain. There is no complaint of fever or chills. Patient denies any nausea or vomiting. There is no complaint of lightheaded dizziness. Because of worsening shortness of breath EMS was called who found him to be tachypneic and short of breath and placed him on nonrebreather and brought him to the ER Initial lab work done in the ER showed WBC 33.4, hemoglobin 12.2, platelet count 435, PT 51, INR 5.2, sodium 134, potassium 4.2, BUN 37, creatinine 1.83, calcium 7.9, troponin 0.062 Influenza A not detected Influenza B not detected RSV not detected COVID-19 detected EKG done in the ER showed heart rate of 75, ventricular paced rhythm, no ST segment elevation or depression seen, no T-wave inversions seen. Chest x-ray done in the ER showed cardiomegaly and left lower lobe infiltrate Patient admitted to internal medicine service 12/16. Patient seen and examined. Breathing is improved. Still complaining of cough. Denies any chest pain 12/17. Patient seen and examined. Currently not requiring any oxygen. States he feels much better. INR is still above 4 12/18. Patient seen and examined. Patient having dark-colored urine, has history of recent procedure by urology. Did complain of left-sided flank pain this morning. INR this morning is 3.4, hemoglobin is 11.5 REVIEW OF SYSTEMS: CONSTITUTIONAL: No fever, no malaise,. CARDIOVASCULAR: No chest pain, no palpitations, no syncope. PULMONARY: As mentioned above GASTROINTESTINAL: No diarrhea, no nausea, no vomiting NEUROLOGICAL: No headaches, no weakness, PHYSICAL EXAMINATION: GENERAL: The patient is alert and oriented x3, not in any acute distress. Well developed, well nourished. HEENT: Pupils are round and equally reacting to light. EOMI. No scleral icterus. No conjunctival pallor. Normocephalic, atraumatic. No pharyngeal erythema. No thyromegaly. CARDIOVASCULAR: S1 and S2 present. No murmurs, rubs, or gallops. PULMONARY: Chest is clear to auscultation, no wheezing or crackles. ABDOMEN: Soft, nontender, nondistended, normoactive bowel sounds. No palpable organomegaly. MUSCULOSKELETAL: No joint swelling or deformity. EXTREMITIES: No cyanosis, clubbing, or pedal edema. NEUROLOGICAL: Gross neurological examination did not reveal any focal deficits. SKIN: No rashes. Assessment and plan Acute hypoxic respiratory failure History of COVID-19 infection Supratherapeutic INR Elevated troponin Acute kidney injury UTI Elevated troponins possibly due to acute kidney injury, COVID infection History of recent hydronephrosis status post cystoscopy on 11/18 Hypertension Hyperlipidemia Paroxysmal atrial fibrillation on Coumadin Coagulopathy secondary to Coumadin use and sepsis Sick sinus syndrome status post permanent pacemaker Mild chronic lower extremity edema Chronic diastolic heart failure, patient is currently euvolemic Valvular heart disease with moderate aortic regurgitation and moderate mitral regurgitation Monitor vital signs Monitor CBC Monitor CMP Continue telemetry monitoring Continue oxygen supplementation Continue IV Rocephin Continue breathing treatments Currently INR is supratherapeutic, hold Coumadin, daily INR checks Cardiology following Pulmonary following Consult urology Labs and medication were reviewed.. Continue same treatment. Continue with symptomatic treatment. Resume home medication. Monitor labs and vitals. DVT and GI prophylaxis. Further recommendations as per clinical course of the patient Dictation was produced using [employer] dictation software. please excuse any grammatical, word or spelling errors. Objective - Vital Signs Vital signs: Vital Signs Temp 97.5 F L 12/19/23 11:40 Pulse 58 L 12/19/23 11:40 Resp 16 12/19/23 11:40 BP 113/67 12/19/23 11:40 Pulse Ox 93 L 12/19/23 11:40 FiO2 Intake & Output 12/18/23 12/19/23 12/19/23 18:59 06:59 18:59 Intake Total 600 140 Output Total 600 600 300 Balance 0 -600 -160 Intake: Oral 600 140 Output: Urine 600 600 300 Other: Voiding Method Incontinent Incontinent Incontinent External Catheter External Catheter External Catheter # Bowel Movements 1 1 - Labs CBC & Chem 7: 12/19/23 08:36 12/19/23 08:36 Labs: Abnormal Lab Results - Last 24 Hours (Table) 12/19/23 12/19/23 12/19/23 Range/Units 08:36 08:36 08:36 WBC 14.3 H (3.8-10.6) k/uL RBC 4.11 L (4.30-5.90) m/uL Hgb 11.5 L (13.0-17.5) gm/dL Hct 37.0 L (39.0-53.0) % Neutrophils # 12.7 H (1.3-7.7) k/uL Lymphocytes # 0.4 L (1.0-4.8) k/uL PT 33.2 H (10.0-12.5) sec INR 3.4 H (<1.2) Sodium 134 L (137-145) mmol/L BUN 36 H (9-20) mg/dL Creatinine 1.49 H (0.66-1.25) mg/dL Calcium 8.0 L (8.4-10.2) mg/dL Total Protein 5.7 L (6.3-8.2) g/dL Albumin 2.8 L (3.5-5.0) g/dL Microbiology - Last 24 Hours (Table) 12/17/23 18:48 Urine Culture - Preliminary Urine,Voided Group D Enterococcus 12/15/23 19:25 Blood Culture - Preliminary Blood 12/15/23 19:10 Blood Culture - Preliminary Blood
--- NOTE | 2023-12-19 15:21 | XR ---
EXAMINATION TYPE: XR chest 1V portable DATE OF EXAM: 12/19/2023 COMPARISON: 12/15/2023 HISTORY: Left lower lobe infiltrate TECHNIQUE: Single frontal view of the chest is obtained. FINDINGS: Stable left lower lobe infiltrate and small effusion. Right lung clear. Cardiac device and cardiomegaly stable with no overt failure. Diffuse osteopenia and degenerative change of the spine. Arthropathy of the glenohumeral and AC joint. Findings compatible with prior ACDF. IMPRESSION: Stable left lower lobe infiltrate and small pleural effusion.
--- NOTE | 2023-12-19 15:42 | P.PN ---
Subjective Progress Note Date: 12/19/23 Principal diagnosis: Subacute COVID-19 infection This is a 83-year-old male patient was at [facility] recovering from her recent hospitalization and the patient was noted to be more short of breath over the past 1 week and more weak to the point where he was not having the stamina or energy and participating with rehab. Based on that, he was transferred to the hospital and EMS at the time of arrival found the patient to be hypoxic, placed in on 100% nonrebreather facemask and currently the patient is on room air oxygen with a pulse ox of 96%. The patient was initially weaned down to 3 L nasal cannula and currently is down to room air oxygen. I reviewed the chest x- ray from 7 admission and the patient has cardiomegaly and a stable left lower lobe atelectasis possibly a small effusion. Otherwise, no clear airspace disease or consolidations. The white cell count of admission was 33 dropped down to 24, hemoglobin of 12.2 and a platelet count is at 435. The patient's INR was at 5.2 as the patient was taken warfarin and repeat INR from today is at 4.4. The patient has normal electrolytes, creatinine is at 1.8 at the time of admission down to 1.77. He does seem to have a component of chronic kidney disease and his creatinine has been chronically elevated. Troponins were 0.060.05 and 0.03 respectively. COVID-19 testing was positive. The patient was tested +3 weeks ago when he went to [facility] this was reported to be his first COVID-19 infection. As such, it is not a new onset infection and was diagnosed approximately 3 weeks ago. Noted the patient was in the hospital in October 2023 the patient was discharged home on 11/21/2023 after being treated for a obstructive uropathy and an acute on top of the cardiac kidney injury. The patient underwent a laser lithotripsy by urology on 11/19/2023. He was also treated for UTI. He has chronic A-fib, chronic stage IIIb chronic kidney disease, hypertension hyperlipidemia and is quite debilitated at this point and because of his overall generalized weakness he was transferred to [facility] on [facility] for further rehabilitation. The patient also had a repeat urinalysis has not been done. proBNP level was 6720. Echocardiogram done on 11/20/2023 showed impaired LV function with an ejection fraction of 35 to 40%, severely increased left ventricular systolic volume, moderate decrease in the LV global function, dilatation of the right atrium and moderate RV dilatation with normal RV systolic pressure. Mild aortic regurgitation was present. Small to medium sized paracardial effusion was located posteriorly. The patient was given IV fluids. He was given a bolus of 1 L in the emergency department. Cardiology has been consulted. EKG is showing a paced rhythm as the patient has underlying sick sinus syndrome and has a permanent pacemaker in place. He also has paroxysmal atrial fibrillation,. He was given IV Rocephin and Zithromax in the emergency. Reevaluate today on 12/17/2023, patient continues to do well, he is on room air O2 sats of 92%, chest x-ray was reviewed, ultrasound was ordered, and there is not enough fluid in the left pleural space to consider thoracentesis for f indings in the left retrocardiac area seems to be findings of atelectasis. Patient remains to be afebrile with a temp of 97 7, heart rate 64 blood pressure 124/58, and his pulse is 83 WBC count is improving down to 17.8 from 33.4 on admission his hemoglobin is 11.5. And basic metabolic profile is normal, renal profile is steadily improving with creatinine down to 1.22 from 1.83 on admission. Considering the patient is not requiring any oxygen, will go ahead and discontinue his Decadron. Patient was evaluated today on 12/18/2023, patient is laying in bed, not in distress, not on oxygen, feels good, no cough, no fever no chills, no chest pain, his INR is supra therapeutic, INR of 4.7, patient has Coumadin on hold presently. His CBC is relatively unremarkable hemoglobin is 11 WBC count is 11.9 basic metabolic profile is normal BUN is 39 creatinine 1.24 patient does have hematuria and most likely it is related to trauma from Aguilar catheter considering his elevated INR nonetheless may have to be addressed by urology Patient was reevaluated today on 12/19/23, patient is doing fairly well except for generalized weakness, continues to have some left-sided flank pain, INR this morning is 3.4, urine is still showing some blood, and I believe the admitting physician is initiating a urology consultation. Patient otherwise is weak, but no cough no fever no chills no hemoptysis chest x-ray continues to show left lower lobe atelectasis, went back to previous x-rays in 2020, patient always had a bit of atelectasis involving the left lower lobe. Would eventually recommend CT of the chest for further evaluation of the left lower lobe, clinically again I strongly doubt pneumonia WBC count today is 14.3 hemoglobin is 11.5 INR is 3.4 basic metabolic profile is normal creatinine is rising up to 1.49 today from 1.24 yesterday his urinalysis is clearly showing evidence of pyuria and he maturia. While as bacteriuria Objective - Vital Signs Vital signs: Vital Signs Temp 97.5 F L 12/19/23 11:40 Pulse 58 L 12/19/23 11:40 Resp 16 12/19/23 11:40 BP 113/67 12/19/23 11:40 Pulse Ox 93 L 12/19/23 11:40 FiO2 Intake & Output 12/18/23 12/19/23 12/19/23 18:59 06:59 18:59 Intake Total 600 140 Output Total 600 600 300 Balance 0 -600 -160 Intake: Oral 600 140 Output: Urine 600 600 300 Other: Voiding Method Incontinent Incontinent Incontinent External Catheter External Catheter External Catheter # Bowel Movements 1 1 - Exam Gen: Revealed 83-year-old white male on room air, not in any distress. On room air and O2 saturation is 94% head: Atraumatic normocephalic. HEENT: PERRLA, EOMI, nonicteric. Neck was supple and without jugular venous distension, thyromegaly, or carotid bruits. LUNGS: Clear to auscultation. No wheezes or rhonchi. No intercostal retractions. Slightly diminished breath sound at the left base HEART: Regular rate and rhythm. No murmur. The cardiac rhythm is paced Abdominal exam revealed normal bowel sounds. The abdomen was soft, non-tender, and without masses, organomegaly EXTREMITIES: No clubbing edema or cyanosis NEUROLOGICAL: Patient is awake, alert and oriented x3. Psychiatric: Normal mood affect and no mental status examination Skin: No rash - Labs CBC & Chem 7: 12/19/23 08:36 12/19/23 08:36 Labs: Abnormal Lab Results - Last 24 Hours (Table) 12/19/23 12/19/23 12/19/23 Range/Units 08:36 08:36 08:36 WBC 14.3 H (3.8-10.6) k/uL RBC 4.11 L (4.30-5.90) m/uL Hgb 11.5 L (13.0-17.5) gm/dL Hct 37.0 L (39.0-53.0) % Neutrophils # 12.7 H (1.3-7.7) k/uL Lymphocytes # 0.4 L (1.0-4.8) k/uL PT 33.2 H (10.0-12.5) sec INR 3.4 H (<1.2) Sodium 134 L (137-145) mmol/L BUN 36 H (9-20) mg/dL Creatinine 1.49 H (0.66-1.25) mg/dL Calcium 8.0 L (8.4-10.2) mg/dL Total Protein 5.7 L (6.3-8.2) g/dL Albumin 2.8 L (3.5-5.0) g/dL Microbiology - Last 24 Hours (Table) 12/17/23 18:48 Urine Culture - Preliminary Urine,Voided Group D Enterococcus 12/15/23 19:25 Blood Culture - Preliminary Blood 12/15/23 19:10 Blood Culture - Preliminary Blood Assessment and Plan Assessment: Impression: Subacute COVID-19 infection Acute leukocytosis, improving, patient is empirically receiving Rocephin, procalcitonin level is extremely elevated. Possible left lower lobe atelectasis/consolidation/pneumonia, no evidence of pleural effusion noted on ultrasound of the chest. Chronic stage IIIb kidney disease Paroxysmal atrial fibrillation History of sick sinus syndrome Chronic systolic congestive heart failure with impaired ejection fraction of 30 to 35% Hypertension Group D Enterococcus urinary tract infection History of prostate cancer status postradiation treatment Medical debility requiring rehabilitation at the [facility] on the [place] Hematuria probably related to Aguilar catheter trauma and elevated INR Recommendation: Continue present supportive care measures Change antibiotics to cover for group D Enterococcus in the urine, patient was already transition to Unasyn to cover group D Enterococcus in the urine and Rocephin was discontinued Procalcitonin level is extremely elevated at 30.8 Continue to monitor WBC count Hold Coumadin for now Previous x-rays of the chest have been reviewed going back to 2020, patient had chronic left lower lobe atelectasis Will continue to follow. Time with Patient: Less than 30
[2023-12-19] MEDS: AMPICILLIN-SULBACTAM 3 GM in SODIUM CHLORIDE 0.9% 100 ML IVPB SCH (16:08)
[2023-12-19] MEDS: WARFARIN 0.5 MG TAB PO ONE (17:35)
--- NOTE | 2023-12-19 22:33 | P.CONS ---
History of Present Illness - Reason for Consult Consult date: 12/19/23 Enterococcus UTI Requesting physician: Avery Rangel - Chief Complaint Increasing shortness of breath x few days - History of Present Illness Patient is a 83-year-old male past medical history significant for hypertension hyperlipidemia atrial fibrillation heart failure prostate cancer presenting to the hospital 5 days ago for evaluation of increasing shortness of breath symptom has been going on for for about a week denies having any chest pain did have some cough and was bringing up some sputum patient on presentation to the hospital was afebrile and no fever have been recorded subsequently not tachycardic hypotensive or hypoxic patient did have a white count of 33.4 on admission that it came down to 11.9 however slightly improved 14.3 today BUN/creatinine mildly elevated he did have a positive UA on 12/17/2023 urine is now growing Enterococcus patient has been empirically on Rocephin infectious was consulted for further management of antibiotic repeat patient did have a chest x-ray on admission left lower lobe infiltrate/effusions chest x-ray today with the lower lobe infiltrate small effusion stable, patient complaining of feeling weak denies having any chest pain complains of shortness of breath no significant cough or sputum production nausea no vomiting no abdominal pain or any diarrhea Review of Systems Positive point and negatives has been mentioned in the HPI, complete review of systems was performed and all other systems are negative Past Medical History Past Medical History: Atrial Fibrillation, Cancer, Heart Failure, CVA/TIA, GERD/Reflux, Hyperlipidemia, Hypertension, Prostate Disorder Additional Past Medical History / Comment(s): 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 dry skin on arms, numbness in last 2 fingers to left hand, kidney stone. History of Any Multi-Drug Resistant Organisms: None Reported Past Surgical History: Cholecystectomy, Hernia Repair, Orthopedic Surgery, Pacemaker Additional Past Surgical History / Comment(s): cervical fusion, lithrotripsy, Past Anesthesia/Blood Transfusion Reactions: No Reported Reaction Additional Past Anesthesia/Blood Transfusion Reaction / Comm: Pt has never recieved blood. Type of Cardiac Device: Permanent Pacemaker Device Placement Date:: 2013 Past Psychological History: No Psychological Hx Reported Smoking Status: Former smoker Past Alcohol Use History: None Reported Past Drug Use History: None Reported - Past Family History Father Family Medical History: Diabetes Mellitus Mother Family Medical History: Osteoarthritis (OA) Additional Family Medical History / Comment(s): arthritis Medications and Allergies Home Medications Medication Instructions Recorded Confirmed Type Acetaminophen [Tylenol] 1,000 mg PO Q6H PRN 05/30/21 12/15/23 History Warfarin [Coumadin] 2.5 mg PO SUTUTHSA@2100 11/29/22 12/15/23 History Sodium Bicarbonate Tab 650 mg PO BID tab 11/21/23 12/15/23 Rx guaiFENesin-DM 100-10MG/5ML 10 ml PO Q6HR PRN 3 Days #100 ml 11/21/23 12/15/23 Rx [Robitussin DM] polyethylene glycoL 3350 [Miralax] 17 gm PO DAILY 3 Days #3 packet 11/21/23 12/15/23 Rx Ascorbic Acid [Vitamin C] 500 mg PO DAILY 12/15/23 12/15/23 History Lidocaine Hcl 2% Injection Solution 2 ml IM DIRECTED 12/15/23 12/15/23 History Methylprednisolone Acetate 80 mg IM DIRECTED 12/15/23 12/15/23 History Suspension 80mg/Ml atenoloL 25 mg PO BID 12/15/23 12/15/23 History bisacodyL [Dulcolax] 10 mg PO DAILY 12/15/23 12/15/23 History guaiFENesin [Diabetic Tussin Ex] 200 mg PO Q4H PRN 12/15/23 12/15/23 History Albuterol Inhaler [Ventolin Hfa 2 puff INHALATION RT-Q6H PRN each 12/27/23 Rx Inhaler] Ampicillin-Sulbactam [Unasyn 3 gm 3 gm IVPB Q6H 7 Days #32 each 12/27/23 Rx vial] Cholestyramine (with Sugar) 4 gm PO BID@1000,1800 packet 12/27/23 Rx [Questran Packet] Temazepam 7.5 mg PO HS #2 cap 12/27/23 Rx Warfarin [Coumadin] 3 mg PO MOWEFR@2100 #0 12/27/23 12/15/23 Rx metroNIDAZOLE [Flagyl] 500 mg PO TID #21 tab 12/27/23 Rx Allergies Allergy/AdvReac Type Severity Reaction Status Date / Time No Known Allergies Allergy Verified 12/15/23 19:23 Physical Exam Vitals: Vital Signs Temp Pulse Resp BP Pulse Ox 12/19/23 11:40 97.5 F L 58 L 16 113/67 93 L 12/19/23 08:00 98.3 F 60 16 115/66 94 L 12/19/23 03:44 97.8 F 61 16 133/66 92 L 12/19/23 00:00 60 16 126/62 92 L 12/18/23 20:00 98.3 F 60 16 107/56 93 L 12/18/23 15:26 97.5 F L 60 16 124/59 92 L Intake and Output 12/18/23 12/19/23 12/19/23 22:59 06:59 14:59 Intake Total 180 140 Output Total 600 600 300 Balance -420 -600 -160 Intake: Oral 180 140 Output: Urine 600 600 300 Other: Voiding Method Incontinent Incontinent Incontinent External Catheter External Catheter External Catheter # Bowel Movements 1 GENERAL DESCRIPTION: Elderly male lying in bed, no distress. No tachypnea or accessory muscle of respiration use. HEENT: Shows Pallor , no scleral icterus. Oral mucous membrane is dry. No pharyngeal erythema or thrush NECK: Trachea central, no thyromegaly. LUNGS: Unlabored breathing. Decreased breath sound at the base HEART: S1, S2, regular rate and rhythm. No loud murmur ABDOMEN: Soft, no tenderness , guarding or rigidity, no organomegaly EXTREMITIES: No edema of feet. SKIN: No rash, no masses palpable. NEUROLOGICAL: The patient is awake, alert, oriented x3, mood and affect normal. Results CBC & Chem 7: 12/27/23 10:27 12/26/23 06:32 Labs: Abnormal Lab Results - Last 24 Hours (Table) 12/19/23 12/19/23 12/19/23 Range/Units 08:36 08:36 08:36 WBC 14.3 H (3.8-10.6) k/uL RBC 4.11 L (4.30-5.90) m/uL Hgb 11.5 L (13.0-17.5) gm/dL Hct 37.0 L (39.0-53.0) % Neutrophils # 12.7 H (1.3-7.7) k/uL Lymphocytes # 0.4 L (1.0-4.8) k/uL PT 33.2 H (10.0-12.5) sec INR 3.4 H (<1.2) Sodium 134 L (137-145) mmol/L BUN 36 H (9-20) mg/dL Creatinine 1.49 H (0.66-1.25) mg/dL Calcium 8.0 L (8.4-10.2) mg/dL Total Protein 5.7 L (6.3-8.2) g/dL Albumin 2.8 L (3.5-5.0) g/dL Microbiology - Last 24 Hours (Table) 12/17/23 18:48 Urine Culture - Preliminary Urine,Voided Group D Enterococcus 12/15/23 19:25 Blood Culture - Preliminary Blood 12/15/23 19:10 Blood Culture - Preliminary Blood Assessment and Plan (1) Enterococcus UTI Status: Acute Code(s): N39.0 - URINARY TRACT INFECTION, SITE NOT SPECIFIED; B95.2 - ENTEROCOCCUS THE CAUSE OF DISEASES CLASSIFIED ELSEWHERE SNOMED Code(s): 296362877330295 Plan: 1patient with a symptom of weakness which is multifactorial he did have a positive UA some urinary symptoms concerning for symptomatic bladder infection with elevated white count and urine is growing Enterococcus 2-discontinue Rocephin 3-start the patient on Unasyn 3 g every 8 hours while waiting for sensitivity to finalize We will follow on clinical condition and cultures to further adjust medication if needed Thank you for this consultation we will follow the patient along with you Dictation was produced using [employer] dictation software. please excuse any grammatical, word or spelling errors. Time with Patient: Greater than 30
[2023-12-19] MEDS: MELATONIN 5 MG TABLET PO PRN (23:35)
--- NOTE | 2023-12-20 06:56 | P.GSCN ---
History of Present Illness Consult date: 12/19/23 Reason for Consult: Hematuria Requesting physician: Avery Rangel History of present illness: Patient is an 83-year-old white male well-known to our service. He underwent a TURP several years ago. In late October, he was hospitalized and found to have an obstructing left distal ureteral calculus. This was removed via ureteroscopy with laser lithotripsy, and his ureteral stent has since been removed. He has an appointment to see Dr. Orellana in 1 month, at which time a renal ultrasound will be performed to confirm resolution of his hydronephrosis. He is currently admitted for shortness of breath. He reports a several week history of urinary incontinence. He currently is using an external catheter. He has been noted to have gross hematuria. I am consulted for this reason. Review of Systems - Constitutional Denies chills, Denies fever - Respiratory Reports dyspnea - Genitourinary Reports hematuria, Denies dysuria, Denies flank pain Past Medical History Past Medical History: Atrial Fibrillation, Cancer, Heart Failure, CVA/TIA, GERD/Reflux, Hyperlipidemia, Hypertension, Prostate Disorder Additional Past Medical History / Comment(s): 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 dry skin on arms, numbness in last 2 fingers to left hand, kidney stone. History of Any Multi-Drug Resistant Organisms: None Reported Past Surgical History: Cholecystectomy, Hernia Repair, Orthopedic Surgery, Pacemaker Additional Past Surgical History / Comment(s): cervical fusion, lithrotripsy, Past Anesthesia/Blood Transfusion Reactions: No Reported Reaction Additional Past Anesthesia/Blood Transfusion Reaction / Comm: Pt has never recieved blood. Type of Cardiac Device: Permanent Pacemaker Device Placement Date:: 2013 Past Psychological History: No Psychological Hx Reported Smoking Status: Former smoker Past Alcohol Use History: None Reported Past Drug Use History: None Reported - Past Family History Father Family Medical History: Diabetes Mellitus Mother Family Medical History: Osteoarthritis (OA) Additional Family Medical History / Comment(s): arthritis Medications and Allergies Home Medications Medication Instructions Recorded Confirmed Type Acetaminophen [Tylenol] 1,000 mg PO Q6H PRN 05/30/21 12/15/23 History Warfarin [Coumadin] 5 mg PO MOWEFR@2100 05/30/21 05/26/24 History amLODIPine [Norvasc] 5 mg PO DAILY 05/30/21 12/15/23 History Warfarin [Coumadin] 2.5 mg PO SUTUTHSA@209911/29/22 12/15/23 History Furosemide [Lasix] 40 mg PO DAILY tab 11/21/23 12/15/23 Rx Sodium Bicarbonate Tab 650 mg PO BID tab 11/21/23 12/15/23 Rx guaiFENesin-DM 100-10MG/5ML 10 ml PO Q6HR PRN 3 Days #100 ml 11/21/23 12/15/23 Rx [Robitussin DM] polyethylene glycoL 3350 [Miralax] 17 gm PO DAILY 3 Days #3 packet 11/21/23 12/15/23 Rx Ascorbic Acid [Vitamin C] 500 mg PO DAILY 12/15/23 12/15/23 History Ciprofloxacin HCl [Cipro] 250 mg PO Q12HR 12/15/23 12/15/23 History Lidocaine Hcl 2% Injection Solution 2 ml IM DIRECTED 12/15/23 12/15/23 History Methylprednisolone Acetate 80 mg IM DIRECTED 12/15/23 12/15/23 History Suspension 80mg/Ml Temazepam 7.5 mg PO HS 12/15/23 12/15/23 History Zinc Gluconate [Zinc] 50 mg PO DAILY 12/15/23 12/15/23 History atenoloL 25 mg PO BID 12/15/23 12/15/23 History bisacodyL [Dulcolax] 10 mg PO DAILY 12/15/23 12/15/23 History guaiFENesin [Diabetic Tussin Ex] 200 mg PO Q4H PRN 12/15/23 12/15/23 History resveratroL [Resveratrol] 200 mg PO DAILY 12/15/23 12/15/23 History Allergies Allergy/AdvReac Type Severity Reaction Status Date / Time No Known Allergies Allergy Verified 12/15/23 19:23 Surgical - Exam Vital Signs Temp Pulse Resp BP Pulse Ox 97.9 F 83 22 136/62 98 12/15/23 17:24 12/15/23 17:24 12/15/23 17:24 12/15/23 17:24 12/15/23 17:24 - General well developed, well nourished, no distress - Respiratory normal respiratory effort - Genitourinary External catheter precludes genitourinary examination. - Psychiatric oriented to time, oriented to person, oriented to place, speech is normal, me roge intact Results - Labs 12/19/23 08:36 12/19/23 08:36 Abnormal Lab Results - Last 24 Hours (Table) 12/19/23 12/19/23 12/19/23 Range/Units 08:36 08:36 08:36 WBC 14.3 H (3.8-10.6) k/uL RBC 4.11 L (4.30-5.90) m/uL Hgb 11.5 L (13.0-17.5) gm/dL Hct 37.0 L (39.0-53.0) % Neutrophils # 12.7 H (1.3-7.7) k/uL Lymphocytes # 0.4 L (1.0-4.8) k/uL PT 33.2 H (10.0-12.5) sec INR 3.4 H (<1.2) Sodium 134 L (137-145) mmol/L BUN 36 H (9-20) mg/dL Creatinine 1.49 H (0.66-1.25) mg/dL Calcium 8.0 L (8.4-10.2) mg/dL Total Protein 5.7 L (6.3-8.2) g/dL Albumin 2.8 L (3.5-5.0) g/dL Microbiology - Last 24 Hours (Table) 12/17/23 18:48 Urine Culture - Preliminary Urine,Voided Group D Enterococcus 12/15/23 19:25 Blood Culture - Preliminary Blood 12/15/23 19:10 Blood Culture - Preliminary Blood Diabetes panel 12/19/23 Range/Units 08:36 Sodium 134 L (137-145) mmol/L Potassium 4.9 (3.5-5.1) mmol/L Chloride 105 (98-107) mmol/L Carbon Dioxide 24 (22-30) mmol/L BUN 36 H (9-20) mg/dL Creatinine 1.49 H (0.66-1.25) mg/dL Glucose 83 (74-99) mg/dL Calcium 8.0 L (8.4-10.2) mg/dL AST 37 (17-59) U/L ALT 48 (4-49) U/L Alkaline Phosphatase 75 (38-126) U/L Total Protein 5.7 L (6.3-8.2) g/dL Albumin 2.8 L (3.5-5.0) g/dL Calcium panel 12/19/23 Range/Units 08:36 Calcium 8.0 L (8.4-10.2) mg/dL Albumin 2.8 L (3.5-5.0) g/dL Pituitary panel 12/19/23 Range/Units 08:36 Sodium 134 L (137-145) mmol/L Potassium 4.9 (3.5-5.1) mmol/L Chloride 105 (98-107) mmol/L Carbon Dioxide 24 (22-30) mmol/L BUN 36 H (9-20) mg/dL Creatinine 1.49 H (0.66-1.25) mg/dL Glucose 83 (74-99) mg/dL Calcium 8.0 L (8.4-10.2) mg/dL Adrenal panel 12/19/23 Range/Units 08:36 Sodium 134 L (137-145) mmol/L Potassium 4.9 (3.5-5.1) mmol/L Chloride 105 (98-107) mmol/L Carbon Dioxide 24 (22-30) mmol/L BUN 36 H (9-20) mg/dL Creatinine 1.49 H (0.66-1.25) mg/dL Glucose 83 (74-99) mg/dL Calcium 8.0 L (8.4-10.2) mg/dL Total Bilirubin 0.4 (0.2-1.3) mg/dL AST 37 (17-59) U/L ALT 48 (4-49) U/L Alkaline Phosphatase 75 (38-126) U/L Total Protein 5.7 L (6.3-8.2) g/dL Albumin 2.8 L (3.5-5.0) g/dL - Imaging CT scan - abdomen: report reviewed, image reviewed Assessment and Plan (1) Gross hematuria Current Visit: Yes Status: Acute Code(s): R31.0 - GROSS HEMATURIA SNOMED Code(s): 043550771 Plan: I reviewed the CT scan done in late October, which showed bilateral renal cortical calcifications but no kidney stones. No bladder tumors were seen at the time of cystoscopy. Urine culture shows group D Enterococcus, and I believe this is the cause of the hematuria. He is currently receiving Unasyn. The recent onset of incontinence may be due to infection, but a postvoid residual will be ch ecked to rule out overflow urinary incontinence. Time with Patient: Greater than 30
[2023-12-20 08:03] LABS: INR 3.3 (<1.2); Prothrombin Time 32.7 sec (10.0-12.5)
[2023-12-20 08:49] VITALS: BMI 36.6
[2023-12-20] MEDS: ACETAMINOPHEN TAB 325 MG TAB PO PRN (09:34)
[2023-12-20] MEDS: ONDANSETRON 4 MG/2 ML VIAL IVP PRN (09:44)
--- NOTE | 2023-12-20 13:26 | P.PN ---
Subjective Progress Note Date: 12/20/23 patient is a 83-year-old gentleman past medical history significant for atrial fibrillation, hypertension who is currently resident of a senior care who presented to ER for evaluation for worsening shortness of breath. Patient stated that he has been feeling short of breath for the last 1 week. Shortness of breath is present on rest as well as exertion. Patient is complaining of productive cough. Denies any chest pain. There is no complaint of fever or chills. Patient denies any nausea or vomiting. There is no complaint of lightheaded dizziness. Because of worsening shortness of breath EMS was called who found him to be tachypneic and short of breath and placed him on nonrebreather and brought him to the ER Initial lab work done in the ER showed WBC 33.4, hemoglobin 12.2, platelet count 435, PT 51, INR 5.2, sodium 134, potassium 4.2, BUN 37, creatinine 1.83, calcium 7.9, troponin 0.062 Influenza A not detected Influenza B not detected RSV not detected COVID-19 detected EKG done in the ER showed heart rate of 75, ventricular paced rhythm, no ST segment elevation or depression seen, no T-wave inversions seen. Chest x-ray done in the ER showed cardiomegaly and left lower lobe infiltrate Patient admitted to internal medicine service 12/16. Patient seen and examined. Breathing is improved. Still complaining of cough. Denies any chest pain 12/17. Patient seen and examined. Currently not requiring any oxygen. States he feels much better. INR is still above 4 12/18. Patient seen and examined. Patient having dark-colored urine, has history of recent procedure by urology. Did complain of left-sided flank pain this morning. INR this morning is 3.4, hemoglobin is 11.5 12/19. Patient seen and examined. Patient is complaining of left flank pain. Antibiotics were changed to IV Unasyn per ID. REVIEW OF SYSTEMS: CONSTITUTIONAL: No fever, no malaise,. CARDIOVASCULAR: No chest pain, no palpitations, no syncope. PULMONARY: As mentioned above GASTROINTESTINAL: No diarrhea, no nausea, no vomiting NEUROLOGICAL: No headaches, no weakness, PHYSICAL EXAMINATION: GENERAL: The patient is alert and oriented x3, not in any acute distress. Well developed, well nourished. HEENT: Pupils are round and equally reacting to light. EOMI. No scleral icterus. No conjunctival pallor. Normocephalic, atraumatic. No pharyngeal erythema. No thyromegaly. CARDIOVASCULAR: S1 and S2 present. No murmurs, rubs, or gallops. PULMONARY: Chest is clear to auscultation, no wheezing or crackles. ABDOMEN: Soft, nontender, nondistended, normoactive bowel sounds. No palpable organomegaly. MUSCULOSKELETAL: No joint swelling or deformity. EXTREMITIES: No cyanosis, clubbing, or pedal edema. NEUROLOGICAL: Gross neurological examination did not reveal any focal deficits. SKIN: No rashes. 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 Continue same treatment. Continue with symptomatic treatment. Resume home medication. Monitor labs and vitals. DVT and GI prophylaxis. Further recommendations as per clinical course of the patient Dictation was produced using [employer] dictation software. please excuse any grammatical, word or spelling errors. Objective - Vital Signs Vital signs: Vital Signs Temp 97.6 F 12/20/23 12:00 Pulse 62 12/20/23 12:00 Resp 17 12/20/23 12:00 BP 119/57 12/20/23 12:00 Pulse Ox 93 L 12/20/23 12:00 FiO2 Intake & Output 12/19/23 12/20/23 12/20/23 18:59 06:59 18:59 Intake Total 140 Output Total 700 600 Balance -560 -600 Weight 122.47 kg Intake: Oral 140 Output: Urine 700 600 Other: Voiding Method Incontinent Incontinent Incontinent External Catheter External Catheter External Catheter # Bowel Movements 1 1 - Labs CBC & Chem 7: 12/19/23 08:36 12/19/23 08:36 Labs: Abnormal Lab Results - Last 24 Hours (Table) 12/20/23 Range/Units 07:31 PT 32.7 H (10.0-12.5) sec INR 3.3 H (<1.2)
--- NOTE | 2023-12-20 13:39 | US ---
EXAMINATION TYPE: US kidneys/renal and bladder DATE OF EXAM: 12/20/2023 COMPARISON: CT 11/18/2023, 03/23/2019, US 2023 CLINICAL INDICATION: Male, 83 years old with history of hemateria; Hematuria. Hx kidney stones. EXAM MEASUREMENTS: Right Kidney: 12.6 x 6.8 x 6.8 cm Left Kidney: 15.3 x 7.0 x 7.7 cm Right Kidney: Lobulated contour. *Isoechoic, indistinct area seen at mid: 2.5 x 1.8 x 2.1 cm. Appears lobulated. Left Kidney: Enlarged. Anechoic connecting areas-appearance of hydronephrosis throughout. Bladder: Unable to visualize Bilateral Jets seen: No No nephrolithiasis. IMPRESSION: 1. Lobulated renal contour and with a 2.5 cm hypoechoic area within the right kidney. Although an und erlying lesion is not excluded could represent cortical lobulation and appears stable from a peripher al prior CT scan. Favor cortical lobulation 2. Anechoic areas within the left kidney consistent with moderate to severe hydronephrosis. Appears s imilar to the CT scan of 11/18/2023. 3. Renal calculi noted on prior exam not as well seen by standard plain film x-ray.
[2023-12-20 13:40] LABS: Basophils # (A) 0.1 k/uL (0-0.2); Basophils % (A) 0 %; Eosinophils # (A) 0.1 k/uL (0-0.7); Eosinophils % (A) 0 %; HCT 36.7 % (39.0-53.0); HGB 11.7 gm/dL (13.0-17.5); Lymphocytes # (A) 0.5 k/uL (1.0-4.8); Lymphocytes % (A) 2 %; MCH 28.5 pg (25.0-35.0); MCHC 31.9 g/dL (31.0-37.0); MCV 89.4 fL (80.0-100.0); Mean Platelet Volume 8.2; Monocytes # (A) 1.1 k/uL (0-1.0); Monocytes % (A) 4 %; Neutrophils # (A) 24.8 k/uL (1.3-7.7); Neutrophils % (A) 93 %; Platelet Count 389 k/uL (150-450); RDW 14.3 % (11.5-15.5); WBC 26.8 k/uL (3.8-10.6)
[2023-12-20 13:46] LABS: African American GFR (CKD) 58 (>60 ml/min/1.73 sqM); Anion Gap 3 mmol/L; Blood Urea Nitrogen 32 mg/dL (9-20); Calcium 7.8 mg/dL (8.4-10.2); Carbon Dioxide 23 mmol/L (22-30); Chloride 108 mmol/L (98-107); Glucose 144 mg/dL (74-99); Non-African American GFR(CKD) 50 (>60 ml/min/1.73 sqM); Potassium 4.4 mmol/L (3.5-5.1); Sodium 134 mmol/L (137-145)
--- NOTE | 2023-12-20 15:39 | P.PN ---
Subjective Progress Note Date: 12/20/23 Principal diagnosis: Reason for follow-up visit Enterococcus urinary tract infection and leukocytosis Patient is a 83-year-old male past medical history significant for hypertension hyperlipidemia atrial fibrillation heart failure prostate cancer presenting to the hospital for evaluation of increasing shortness of breath weakness did have elevated white count positive UA with urine showing Enterococcus prompting this consultation. On today's evaluation that is 12/20/2023, the patient continues to be afebrile, the patient is on room air however complaining of shortness of breath but she mentions some cough but unable to bring up any sputum no nausea vomiting no abdominal pain or any diarrhea. Patient white count is up to 26.8, creatinine is 1.31 Objective - Vital Signs Vital signs: Vital Signs Temp 98.3 F 12/20/23 07:46 Pulse 55 L 12/20/23 07:46 Resp 17 12/20/23 07:46 BP 110/62 12/20/23 07:46 Pulse Ox 92 L 12/20/23 07:46 FiO2 Intake & Output 12/19/23 12/20/23 12/20/23 18:59 06:59 18:59 Intake Total 140 Output Total 700 600 Balance -560 -600 Weight 122.47 kg Intake: Oral 140 Output: Urine 700 600 Other: Voiding Method Incontinent Incontinent Incontinent External Catheter External Catheter External Catheter # Bowel Movements 1 1 - Exam GENERAL DESCRIPTION: An elderly male lying in bed in no distress RESPIRATORY SYSTEM: Unlabored breathing , decreased breath sounds at bases HEART: S1 S2 regular rate and rhythm , ABDOMEN: Soft , no tenderness EXTREMITIES: No edema feet - Labs CBC & Chem 7: 12/20/23 13:05 12/20/23 13:05 Labs: Abnormal Lab Results - Last 24 Hours (Table) 12/20/23 Range/Units 07:31 PT 32.7 H (10.0-12.5) sec INR 3.3 H (<1.2) Microbiology - Last 24 Hours (Table) 12/17/23 18:48 Urine Culture - Preliminary Urine,Voided Group D Enterococcus Assessment and Plan (1) Enterococcus UTI Current Visit: Yes Status: Acute Code(s): N39.0 - URINARY TRACT INFECTION, SITE NOT SPECIFIED; B95.2 - ENTEROCOCCUS THE CAUSE OF DISEASES CLASSIFIED ELSEWHERE SNOMED Code(s): 513286791311530 (2) Leukocytosis Current Visit: Yes Status: Acute Code(s): D72.829 - ELEVATED WHITE BLOOD CELL COUNT, UNSPECIFIED SNOMED Code(s): 333770789 Plan: 1patient with a symptom of weakness which is multifactorial he did have a positive UA some urinary symptoms concerning for symptomatic bladder infection with elevated white count and urine is growing Enterococcus 2-patient noted to have slight worsening of the white count we will monitor closely with repeat CBC with a.m. lab 3-patient urine has been finalized Enterococcus faecalis that is penicillin sensitive, will continue Unasyn at this point questions were answered Dictation was produced using [employer] dictation software. please excuse any grammatical, word or spelling errors. Time with Patient: Less than 30
[2023-12-20] MEDS: SODIUM CHLORIDE 0.9% 500 ML 1,000 ML IV ONE (16:07)
[2023-12-20] MEDS: SODIUM CHLORIDE 0.9% 1,000 ML IV SCH (16:07)
--- NOTE | 2023-12-20 16:22 | P.PN ---
Subjective Progress Note Date: 12/20/23 Principal diagnosis: Subacute COVID-19 infection This is a 83-year-old male patient was at [facility] recovering from her recent hospitalization and the patient was noted to be more short of breath over the past 1 week and more weak to the point where he was not having the stamina or energy and participating with rehab. Based on that, he was transferred to the hospital and EMS at the time of arrival found the patient to be hypoxic, placed in on 100% nonrebreather facemask and currently the patient is on room air oxygen with a pulse ox of 96%. The patient was initially weaned down to 3 L nasal cannula and currently is down to room air oxygen. I reviewed the chest x- ray from 7 admission and the patient has cardiomegaly and a stable left lower lobe atelectasis possibly a small effusion. Otherwise, no clear airspace disease or consolidations. The white cell count of admission was 33 dropped down to 24, hemoglobin of 12.2 and a platelet count is at 435. The patient's INR was at 5.2 as the patient was taken warfarin and repeat INR from today is at 4.4. The patient has normal electrolytes, creatinine is at 1.8 at the time of admission down to 1.77. He does seem to have a component of chronic kidney disease and his creatinine has been chronically elevated. Troponins were 0.060.05 and 0.03 respectively. COVID-19 testing was positive. The patient was tested +3 weeks ago when he went to [facility] this was reported to be his first COVID-19 infection. As such, it is not a new onset infection and was diagnosed approximately 3 weeks ago. Noted the patient was in the hospital in October 2023 the patient was discharged home on 11/21/2023 after being treated for a obstructive uropathy and an acute on top of the cardiac kidney injury. The patient underwent a laser lithotripsy by urology on 11/19/2023. He was also treated for UTI. He has chronic A-fib, chronic stage IIIb chronic kidney disease, hypertension hyperlipidemia and is quite debilitated at this point and because of his overall generalized weakness he was transferred to [facility] on [facility] for further rehabilitation. The patient also had a repeat urinalysis has not been done. proBNP level was 6720. Echocardiogram done on 11/20/2023 showed impaired LV function with an ejection fraction of 35 to 40%, severely increased left ventricular systolic volume, moderate decrease in the LV global function, dilatation of the right atrium and moderate RV dilatation with normal RV systolic pressure. Mild aortic regurgitation was present. Small to medium sized paracardial effusion was located posteriorly. The patient was given IV fluids. He was given a bolus of 1 L in the emergency department. Cardiology has been consulted. EKG is showing a paced rhythm as the patient has underlying sick sinus syndrome and has a permanent pacemaker in place. He also has paroxysmal atrial fibrillation,. He was given IV Rocephin and Zithromax in the emergency. Reevaluate today on 12/17/2023, patient continues to do well, he is on room air O2 sats of 92%, chest x-ray was reviewed, ultrasound was ordered, and there is not enough fluid in the left pleural space to consider thoracentesis for f indings in the left retrocardiac area seems to be findings of atelectasis. Patient remains to be afebrile with a temp of 97 7, heart rate 64 blood pressure 124/58, and his pulse is 83 WBC count is improving down to 17.8 from 33.4 on admission his hemoglobin is 11.5. And basic metabolic profile is normal, renal profile is steadily improving with creatinine down to 1.22 from 1.83 on admission. Considering the patient is not requiring any oxygen, will go ahead and discontinue his Decadron. Patient was evaluated today on 12/18/2023, patient is laying in bed, not in distress, not on oxygen, feels good, no cough, no fever no chills, no chest pain, his INR is supra therapeutic, INR of 4.7, patient has Coumadin on hold presently. His CBC is relatively unremarkable hemoglobin is 11 WBC count is 11.9 basic metabolic profile is normal BUN is 39 creatinine 1.24 patient does have hematuria and most likely it is related to trauma from Aguilar catheter considering his elevated INR nonetheless may have to be addressed by urology Patient was reevaluated today on 12/19/23, patient is doing fairly well except for generalized weakness, continues to have some left-sided flank pain, INR this morning is 3.4, urine is still showing some blood, and I believe the admitting physician is initiating a urology consultation. Patient otherwise is weak, but no cough no fever no chills no hemoptysis chest x-ray continues to show left lower lobe atelectasis, went back to previous x-rays in 2020, patient always had a bit of atelectasis involving the left lower lobe. Would eventually recommend CT of the chest for further evaluation of the left lower lobe, clinically again I strongly doubt pneumonia WBC count today is 14.3 hemoglobin is 11.5 INR is 3.4 basic metabolic profile is normal creatinine is rising up to 1.49 today from 1.24 yesterday his urinalysis is clearly showing evidence of pyuria and he maturia. While as bacteriuria Reevaluated today on 12/20/2023, patient has multiple complaints including weakness, fatigue, ongoing left flank pain, patient is now on Unasyn for antibiotics. Ultrasound of abdomen and pelvis, showed lobulated renal contour with 2.5 cm hypoechoic area within the right kidney and there is evidence of moderate to severe hydronephrosis involving the left kidney appeared similar to CT noted on 11/18/2023. Renal calculi also noted. This is being addressed by urology on the case. Patient is still receiving treatment for Enterococcus group D urinary tract infection. Today I evaluated the patient, and I recommended a CT of the chest to further evaluate the chronic left lower lobe atelectasis. Specially with the patient being quite symptomatic Objective - Vital Signs Vital signs: Vital Signs Temp 97.6 F 12/20/23 12:00 Pulse 62 12/20/23 12:00 Resp 17 12/20/23 12:00 BP 119/57 12/20/23 12:00 Pulse Ox 93 L 12/20/23 12:00 FiO2 Intake & Output 12/19/23 12/20/23 12/20/23 18:59 06:59 18:59 Intake Total 140 Output Total 700 600 Balance -560 -600 Weight 122.47 kg Intake: Oral 140 Output: Urine 700 600 Other: Voiding Method Incontinent Incontinent Incontinent External Catheter External Catheter External Catheter # Bowel Movements 1 1 - Exam Gen: Revealed 83-year-old white male on room air, not in any distress. On room air and O2 saturation is 94% head: Atraumatic normocephalic. HEENT: PERRLA, EOMI, nonicteric. Neck was supple and without jugular venous distension, thyromegaly, or carotid bruits. LUNGS: Clear to auscultation. No wheezes or rhonchi. No intercostal retractions. Slightly diminished breath sound at the left base HEART: Regular rate and rhythm. No murmur. The cardiac rhythm is paced Abdominal exam revealed normal bowel sounds. The abdomen was soft, non-tender, and without masses, organomegaly EXTREMITIES: No clubbing edema or cyanosis NEUROLOGICAL: Patient is awake, alert and oriented x3. Psychiatric: Normal mood affect and no mental status examination Skin: No rash - Labs CBC & Chem 7: 12/20/23 13:05 12/20/23 13:05 Labs: Abnormal Lab Results - Last 24 Hours (Table) 12/20/23 12/20/23 12/20/23 Range/Units 07:31 13:05 13:05 WBC 26.8 H (3.8-10.6) k/uL RBC 4.10 L (4.30-5.90) m/uL Hgb 11.7 L (13.0-17.5) gm/dL Hct 36.7 L (39.0-53.0) % Neutrophils # 24.8 H (1.3-7.7) k/uL Lymphocytes # 0.5 L (1.0-4.8) k/uL Monocytes # 1.1 H (0-1.0) k/uL PT 32.7 H (10.0-12.5) sec INR 3.3 H (<1.2) Sodium 134 L (137-145) mmol/L Chloride 108 H (98-107) mmol/L BUN 32 H (9-20) mg/dL Creatinine 1.31 H (0.66-1.25) mg/dL Glucose 144 H (74-99) mg/dL Calcium 7.8 L (8.4-10.2) mg/dL Microbiology - Last 24 Hours (Table) 12/17/23 18:48 Urine Culture - Final Urine,Voided Enterococcus faecalis Assessment and Plan Assessment: Impression: Subacute COVID-19 infection Acute leukocytosis, secondary to group D Enterococcus urinary tract infection Possible left lower lobe atelectasis/consolidation/pneumonia, no evidence of pleural effusion noted on ultrasound of the chest. Will further evaluate by ordering a CT of the chest and evaluate the left lower lobe Chronic stage IIIb kidney disease Paroxysmal atrial fibrillation History of sick sinus syndrome Chronic systolic congestive heart failure with impaired ejection fraction of 30 to 35% Hypertension History of prostate cancer status postradiation treatment Medical debility requiring rehabilitation at the [facility] on the [place] Hematuria probably related to Aguilar catheter trauma and elevated INR Recommendation: Continue present supportive care measures Continue Unasyn Procalcitonin level is extremely elevated at 30.8 likely secondary to UTI Left-sided hydronephrosis, being addressed by urology on the case. Ordered CT of the chest for further evaluation of the left lower lobe chronic change this will be done without contrast Will continue to follow. Time with Patient: Less than 30
[2023-12-20] MEDS: WARFARIN 0.5 MG TAB PO ONE (17:29)
--- NOTE | 2023-12-20 17:43 | CT ---
EXAMINATION TYPE: CT ChestAbdPelvis wo con CT DLP: 1694.8 mGycm, Automated exposure control for dose reduction was used. DATE OF EXAM: 12/20/2023 5:19 PM COMPARISON: 11/18/2023 CLINICAL INDICATION:Male, 83 years old with history of LLL infiltrate; PHH, SOB Technique: CT ChestAbdPelvis wo con; Multiple axial images were obtained. Two-dimensional coronal and sagittal reconstructions were obtained. Contrast used: mL of , Oral contrast used: without Oral Contrast Findings: CHEST: LUNGS/ PLEURA: No evidence for airspace consolidation. No pneumothorax or pleural effusion. Atelectas is changes along the minor fissure. AIRWAY: Patent and unremarkable. HEART: There is enlarged for size there is a pericardial effusion with pocket of fluid along the left lateral aspect of the pericardium. Conduction leads terminating in the right ventricle and atrium. MEDIASTINUM: No gross evidence of adenopathy. VASCULATURE: No aortic aneurysm. MUSCULOSKELETAL: No acute osseous abnormalities. SOFT TISSUES/LYMPH NODES: Unremarkable. LOWER NECK: No significant findings. ABDOMEN: ABDOMEN LIVER: Multiple low density areas throughout the liver most compatible with cysts. GALLBLADDER AND BILE DUCTS: The gallbladder surgically absent. PANCREAS: Unremarkable. SPLEEN: Unremarkable. ADRENAL GLANDS: Unremarkable. KIDNEYS AND URETERS: Moderate left hydronephrosis from obstructing calculus at the pelvic brim measur ing up to 14 x 8 mm no right hydronephrosis. No right obstructing calculi. Renal cortical calcificati ons of the right. PELVIS BLADDER: Unremarkable REPRODUCTIVE: Unremarkable. ABDOMEN & PELVIS STOMACH AND BOWEL: No evidence of bowel obstruction. Scattered colonic diverticula. PERITONEUM: No evidence of pneumoperitoneum or free fluid. VASCULATURE: No evidence of aortic aneurysm. MUSCULOSKELETAL: No acute osseous abnormalities. Moderate disc degeneration changes are present throu ghout the thoracolumbar spine. Pseudoarthrosis of the spinous processes. LYMPH NODES: No gross evidence for lymphadenopathy. SOFT TISSUE/ABDOMINAL WALL: Unremarkable IMPRESSION: 1. Worsening hydronephrosis with moderate to severe left hydronephrosis from obstructing calculus at the pelvic brim measuring up to 14 x 8 mm. This calculus has increased in size from 11/18/2023. Urolo gy consultation recommended evaluation for removal. 2. No evidence for airspace consolidation. 3. Small pericardial effusion, similar to prior. 4. Mild cardiomegaly. 5. 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 6. Colonic diverticulosis.
[2023-12-20] MEDS: ALBUTEROL HFA INHALER INHALATION PRN (17:54)
[2023-12-20] MEDS: SODIUM CHLORIDE 0.9% 1,000 ML IV ONE (18:39)
[2023-12-21 05:18] LABS: Glucose,Whole Blood 104 mg/dL (70-110)
[2023-12-21] MEDS: SODIUM CHLORIDE 0.9% 500 ML 500 ML IV ONE (05:19)
[2023-12-21 06:02] LABS: INR 3.4 (<1.2); Prothrombin Time 33.4 sec (10.0-12.5)
[2023-12-21 06:08] LABS: HCT 36.6 % (39.0-53.0); Hypochromasia Moderate; MCHC 30.1 g/dL (31.0-37.0); Mean Platelet Volume 8.2; Platelet Count 373 k/uL (150-450); RBC 3.94 m/uL (4.30-5.90); RDW 14.4 % (11.5-15.5); WBC 28.3 k/uL (3.8-10.6)
[2023-12-21 06:20] LABS: ALT 35 U/L (4-49); AST 43 U/L (17-59); African American GFR (CKD) 54 (>60 ml/min/1.73 sqM); Albumin 2.7 g/dL (3.5-5.0); Alkaline Phosphatase 75 U/L (38-126); Anion Gap 11 mmol/L; Blood Urea Nitrogen 30 mg/dL (9-20); Calcium 7.2 mg/dL (8.4-10.2); Carbon Dioxide 18 mmol/L (22-30); Chloride 109 mmol/L (98-107); Glucose 109 mg/dL (74-99); Non-African American GFR(CKD) 47 (>60 ml/min/1.73 sqM); Potassium 5.1 mmol/L (3.5-5.1); Sodium 138 mmol/L (137-145); Total Bilirubin 1.2 mg/dL (0.2-1.3); Total Protein 5.6 g/dL (6.3-8.2)
[2023-12-21 07:05] LABS: Band Neutrophils % 1 %; Lymphocytes # (M) 1.42 k/uL (1.0-4.8); Metamyelocytes # (M) 0.28 k/uL (0); Metamyelocytes % 1 %; Monocytes # (M) 0.28 k/uL (0-1.0); Myelocytes # (M) 0.28 k/uL (0); Myelocytes % 1 %; Neutrophils % (M) 93 %; Nucleated Red Blood Cells 0 /100 WBC (0-0); Total Cells Counted 200
[2023-12-21 07:07] LABS: Ovalocytes Present
[2023-12-21] MEDS: IV FLUID CONTINUATION 700 ML IV ONE (11:17)
[2023-12-21] MEDS ORDERED: PHENYLEPHRINE 10 MG/ML VIAL ONE (11:17)
[2023-12-21] MEDS ORDERED: MIDAZOLAM 2 MG/2 ML VIAL ONE (11:17)
[2023-12-21] MEDS ORDERED: PROPOFOL 10 MG/ML 20 ML VIAL IV ONE (11:17)
[2023-12-21] MEDS ORDERED: fentaNYL (PF) 50 MCG/ML 2 ML AMP ONE (11:17)
[2023-12-21] MEDS: LIDOCAINE 2% URO-JET JELLY 5 ML KIT URETHRAL ONE (11:29)
--- NOTE | 2023-12-21 12:03 | P.OP ---
Date of Procedure: 12/21/23 Preoperative Diagnosis: Left hydronephrosis secondary to left ureteral calculus Postoperative Diagnosis: Same Procedure(s) Performed: Cystoscopy, left ureteral stent insertion Anesthesia: MAC Surgeon: Shadi Nguyen Estimated Blood Loss (ml): 0 IV fluids (ml): 200 Pathology: none sent Condition: stable Disposition: PACU Indications for Procedure: The patient is an 83-year-old white male who underwent ureteroscopic removal of a left distal ureteral calculus in late October 2023. His ureteral stent was subsequently removed. He is currently hospitalized with hematuria and is being treated for an Enterococcus UTI. CT scan shows evidence of significant left hydroureteronephrosis due to an 8 x 14 mm left ureteral calculus at the pelvic inlet. He now comes for stent placement. Operative Findings: Obstructing left ureteral calculus. Bloody, malodorous urine drained from left renal pelvis. Culture and sensitivity sent. Description of Procedure: The patient was taken to the operating room and placed in the dorsolithotomy position, with legs supported in Sravan stirrups. The external genitalia was prepped and draped sterilely. An attempt was made to insert 2% lidocaine gel intraurethrally, but this was difficult given the patient's phimosis. The 30 lens was used to introduce the 22-Turkmen Stortz cystoscopic sheath through the urethra and into the bladder under direct vision. The prostatic urethra showed evidence of a previous TURP. Visualization within the bladder was poor, given the degree of hematuria. The amount of urine drained was relatively low, indicating that the patient was not in urinary retention. The bladder was irrigated several times, at which point visualization was adequate. The bladder was examined in its entirety. Both ureteral orifices were of normal anatomic location and configuration. There appeared to be a small amount of bloody urine effluxing from the left ureteral orifice. No tumors or foreign bodies were seen. The bladder was moderately trabeculated with multiple cellules. A 0.035 inch Glidewire was passed through the cystoscope. The left ureteral orifice was cannulated, and the Glidewire was slowly advanced beyond the calculus and up to the renal pelvis. A 28 cm, 6-Turkmen double-J ureteral stent was placed over the wire. Proper stent positioning was verified fluoroscopically and endoscopically. Bloody, malodorous urine drained through the stent. With the beak of the cystoscope immediately adjacent to the distal end of the stent, urine was collected and sent for culture and sensitivity. The cystoscope was removed, and an 18 Turkmen Aguilar catheter was placed. The patient tolerated the procedure well and was taken to the recovery room in stable condition.
--- NOTE | 2023-12-21 12:38 | FL ---
Intraoperative fluoroscopy HISTORY: Stent placement COMPARISON: None 10 seconds of intraoperative fluoroscopy was performed in the operating room for diogenes nt placement. [id number] dose
--- NOTE | 2023-12-21 12:54 | P.PN ---
Subjective Progress Note Date: 12/21/23 Principal diagnosis: Subacute COVID-19 infection This is a 83-year-old male patient was at [facility] recovering from her recent hospitalization and the patient was noted to be more short of breath over the past 1 week and more weak to the point where he was not having the stamina or energy and participating with rehab. Based on that, he was transferred to the hospital and EMS at the time of arrival found the patient to be hypoxic, placed in on 100% nonrebreather facemask and currently the patient is on room air oxygen with a pulse ox of 96%. The patient was initially weaned down to 3 L nasal cannula and currently is down to room air oxygen. I reviewed the chest x- ray from 7 admission and the patient has cardiomegaly and a stable left lower lobe atelectasis possibly a small effusion. Otherwise, no clear airspace disease or consolidations. The white cell count of admission was 33 dropped down to 24, hemoglobin of 12.2 and a platelet count is at 435. The patient's INR was at 5.2 as the patient was taken warfarin and repeat INR from today is at 4.4. The patient has normal electrolytes, creatinine is at 1.8 at the time of admission down to 1.77. He does seem to have a component of chronic kidney disease and his creatinine has been chronically elevated. Troponins were 0.060.05 and 0.03 respectively. COVID-19 testing was positive. The patient was tested +3 weeks ago when he went to [facility] this was reported to be his first COVID-19 infection. As such, it is not a new onset infection and was diagnosed approximately 3 weeks ago. Noted the patient was in the hospital in October 2023 the patient was discharged home on 11/21/2023 after being treated for a obstructive uropathy and an acute on top of the cardiac kidney injury. The patient underwent a laser lithotripsy by urology on 11/19/2023. He was also treated for UTI. He has chronic A-fib, chronic stage IIIb chronic kidney disease, hypertension hyperlipidemia and is quite debilitated at this point and because of his overall generalized weakness he was transferred to [facility] on [facility] for further rehabilitation. The patient also had a repeat urinalysis has not been done. proBNP level was 6720. Echocardiogram done on 11/20/2023 showed impaired LV function with an ejection fraction of 35 to 40%, severely increased left ventricular systolic volume, moderate decrease in the LV global function, dilatation of the right atrium and moderate RV dilatation with normal RV systolic pressure. Mild aortic regurgitation was present. Small to medium sized paracardial effusion was located posteriorly. The patient was given IV fluids. He was given a bolus of 1 L in the emergency department. Cardiology has been consulted. EKG is showing a paced rhythm as the patient has underlying sick sinus syndrome and has a permanent pacemaker in place. He also has paroxysmal atrial fibrillation,. He was given IV Rocephin and Zithromax in the emergency. Reevaluate today on 12/17/2023, patient continues to do well, he is on room air O2 sats of 92%, chest x-ray was reviewed, ultrasound was ordered, and there is not enough fluid in the left pleural space to consider thoracentesis for f indings in the left retrocardiac area seems to be findings of atelectasis. Patient remains to be afebrile with a temp of 97 7, heart rate 64 blood pressure 124/58, and his pulse is 83 WBC count is improving down to 17.8 from 33.4 on admission his hemoglobin is 11.5. And basic metabolic profile is normal, renal profile is steadily improving with creatinine down to 1.22 from 1.83 on admission. Considering the patient is not requiring any oxygen, will go ahead and discontinue his Decadron. Patient was evaluated today on 12/18/2023, patient is laying in bed, not in distress, not on oxygen, feels good, no cough, no fever no chills, no chest pain, his INR is supra therapeutic, INR of 4.7, patient has Coumadin on hold presently. His CBC is relatively unremarkable hemoglobin is 11 WBC count is 11.9 basic metabolic profile is normal BUN is 39 creatinine 1.24 patient does have hematuria and most likely it is related to trauma from Aguilar catheter considering his elevated INR nonetheless may have to be addressed by urology Patient was reevaluated today on 12/19/23, patient is doing fairly well except for generalized weakness, continues to have some left-sided flank pain, INR this morning is 3.4, urine is still showing some blood, and I believe the admitting physician is initiating a urology consultation. Patient otherwise is weak, but no cough no fever no chills no hemoptysis chest x-ray continues to show left lower lobe atelectasis, went back to previous x-rays in 2020, patient always had a bit of atelectasis involving the left lower lobe. Would eventually recommend CT of the chest for further evaluation of the left lower lobe, clinically again I strongly doubt pneumonia WBC count today is 14.3 hemoglobin is 11.5 INR is 3.4 basic metabolic profile is normal creatinine is rising up to 1.49 today from 1.24 yesterday his urinalysis is clearly showing evidence of pyuria and he maturia. While as bacteriuria Reevaluated today on 12/20/2023, patient has multiple complaints including weakness, fatigue, ongoing left flank pain, patient is now on Unasyn for antibiotics. Ultrasound of abdomen and pelvis, showed lobulated renal contour with 2.5 cm hypoechoic area within the right kidney and there is evidence of moderate to severe hydronephrosis involving the left kidney appeared similar to CT noted on 11/18/2023. Renal calculi also noted. This is being addressed by urology on the case. Patient is still receiving treatment for Enterococcus group D urinary tract infection. Today I evaluated the patient, and I recommended a CT of the chest to further evaluate the chronic left lower lobe atelectasis. Specially with the patient being quite symptomatic Patient was reevaluated today on 12/21/2023, patient is basically about the same, continues to have multiple symptoms feels better that he is on oxygen today, he has no shortness of breath no cough no wheezing he had yesterday symptoms of weakness fatigue and ongoing left flank pain, CT of the abdomen pelvis showed l eft-sided hydronephrosis with nephrolithiasis, and the patient is undergoing cystoscopy and left ureteral stent insertion. In the meantime the patient remains on antibiotics for his UTI, and this is being addressed by infectious disease on the case. Patient has worsening leukocytosis today with WBC count of 28.3 hemoglobin 11 INR is 3.4 basic metabolic profile is normal bicarb is 18 BUN is 30 creatinine 1.38, Slightly worse compared to yesterday. Objective - Vital Signs Vital signs: Vital Signs Temp 97.4 F L 12/21/23 12:29 Pulse 60 12/21/23 12:29 Resp 20 12/21/23 12:29 BP 107/64 12/21/23 12:29 Pulse Ox 92 L 12/21/23 12:29 FiO2 Intake & Output 12/20/23 12/21/23 12/21/23 18:59 06:59 18:59 Intake Total 600 Output Total 350 250 0 Balance -350 -250 600 Weight 122.47 kg Intake: IV 600 Output: Urine 350 250 Estimated Blood Loss 0 Other: Voiding Method Incontinent Incontinent External Catheter External Catheter - Exam Gen: Revealed 83-year-old white male on room air, not in any distress. On 2 L nasal cannula head: Atraumatic normocephalic. HEENT: PERRLA, EOMI, nonicteric. Neck was supple and without jugular venous distension, thyromegaly, or carotid bruits. LUNGS: Clear to auscultation. No wheezes or rhonchi. No intercostal retractions. HEART: Regular rate and rhythm. No murmur. The cardiac rhythm is paced Abdominal exam revealed normal bowel sounds. The abdomen was soft, non-tender, and without masses, organomegaly EXTREMITIES: No clubbing edema or cyanosis NEUROLOGICAL: Patient is awake, alert and oriented x3. Psychiatric: Normal mood affect and no mental status examination Skin: No rash - Labs CBC & Chem 7: 12/21/23 05:29 12/21/23 05:29 Labs: Abnormal Lab Results - Last 24 Hours (Table) 12/20/23 12/20/23 12/20/23 Range/Units 13:05 13:05 16:13 WBC 26.8 H (3.8-10.6) k/uL RBC 4.10 L (4.30-5.90) m/uL Hgb 11.7 L (13.0-17.5) gm/dL Hct 36.7 L (39.0-53.0) % MCHC (31.0-37.0) g/dL Neutrophils # 24.8 H (1.3-7.7) k/uL Neutrophils # (Manual) (1.3-7.7) k/uL Lymphocytes # 0.5 L (1.0-4.8) k/uL Monocytes # 1.1 H (0-1.0) k/uL Metamyelocytes # (Man) (0) k/uL Myelocytes # (Manual) (0) k/uL PT (10.0-12.5) sec INR (<1.2) Sodium 134 L (137-145) mmol/L Chloride 108 H (98-107) mmol/L Carbon Dioxide (22-30) mmol/L BUN 32 H (9-20) mg/dL Creatinine 1.31 H (0.66-1.25) mg/dL Glucose 144 H (74-99) mg/dL Plasma Lactic Acid Yasir 4.4 H* (0.7-2.0) mmol/L Calcium 7.8 L (8.4-10.2) mg/dL Total Protein (6.3-8.2) g/dL Albumin (3.5-5.0) g/dL 12/20/23 12/21/23 12/21/23 Range/Units 19:11 05:29 05:29 WBC 28.3 H (3.8-10.6) k/uL RBC 3.94 L (4.30-5.90) m/uL Hgb 11.0 L (13.0-17.5) gm/dL Hct 36.6 L (39.0-53.0) % MCHC 30.1 L (31.0-37.0) g/dL Neutrophils # (1.3-7.7) k/uL Neutrophils # (Manual) 26.60 H (1.3-7.7) k/uL Lymphocytes # (1.0-4.8) k/uL Monocytes # (0-1.0) k/uL Metamyelocytes # (Man) 0.28 H (0) k/uL Myelocytes # (Manual) 0.28 H (0) k/uL PT 33.4 H (10.0-12.5) sec INR 3.4 H (<1.2) Sodium (137-145) mmol/L Chloride (98-107) mmol/L Carbon Dioxide (22-30) mmol/L BUN (9-20) mg/dL Creatinine (0.66-1.25) mg/dL Glucose (74-99) mg/dL Plasma Lactic Acid Yasir 3.2 H* (0.7-2.0) mmol/L Calcium (8.4-10.2) mg/dL Total Protein (6.3-8.2) g/dL Albumin (3.5-5.0) g/dL 12/21/23 12/21/23 Range/Units 05:29 05:29 WBC (3.8-10.6) k/uL RBC (4.30-5.90) m/uL Hgb (13.0-17.5) gm/dL Hct (39.0-53.0) % MCHC (31.0-37.0) g/dL Neutrophils # (1.3-7.7) k/uL Neutrophils # (Manual) (1.3-7.7) k/uL Lymphocytes # (1.0-4.8) k/uL Monocytes # (0-1.0) k/uL Metamyelocytes # (Man) (0) k/uL Myelocytes # (Manual) (0) k/uL PT (10.0-12.5) sec INR (<1.2) Sodium (137-145) mmol/L Chloride 109 H (98-107) mmol/L Carbon Dioxide 18 L (22-30) mmol/L BUN 30 H (9-20) mg/dL Creatinine 1.38 H (0.66-1.25) mg/dL Glucose 109 H (74-99) mg/dL Plasma Lactic Acid Yasir 5.8 H* (0.7-2.0) mmol/L Calcium 7.2 L (8.4-10.2) mg/dL Total Protein 5.6 L (6.3-8.2) g/dL Albumin 2.7 L (3.5-5.0) g/dL Microbiology - Last 24 Hours (Table) 12/15/23 19:25 Blood Culture - Final Blood 12/15/23 19:10 Blood Culture - Final Blood 12/17/23 18:48 Urine Culture - Final Urine,Voided Enterococcus faecalis Assessment and Plan Assessment: Impression: group D Enterococcus urinary tract infection Left-sided hydronephrosis requiring cystoscopy and stent placement/ureteral stent placement by Dr. Nguyen on 12/21/2023 Right left lower lobe atelectasis, no significant findings noted on CT of the chest except for atelectasis. Evidence of malignancy Chronic stage IIIb kidney disease Paroxysmal atrial fibrillation History of sick sinus syndrome Chronic systolic congestive heart failure with impaired ejection fraction of 30 to 35% Hypertension History of prostate cancer status postradiation treatment Medical debility requiring rehabilitation at the [facility] on the diallo Hematuria probably related to Aguilar catheter trauma and elevated INR Recommendation: Continue present supportive care measures Continue Unasyn Procalcitonin level is extremely elevated at 30.8 likely secondary to UTI Left-sided hydronephrosis, addressed by urology already. Will continue to follow. Time with Patient: Less than 30
--- NOTE | 2023-12-21 13:08 | P.PN ---
Subjective Progress Note Date: 12/21/23 patient is a 83-year-old gentleman past medical history significant for atrial fibrillation, hypertension who [facility] who presented to ER for evaluation for worsening shortness of breath. Patient stated that he has been feeling short of breath for the last 1 week. Shortness of breath is present on rest as well as exertion. Patient is complaining of productive cough. Denies any chest pain. There is no complaint of fever or chills. Patient denies any nausea or vomiting. There is no complaint of lightheaded dizziness. Because of worsening shortness of breath EMS was called who found him to be tachypneic and short of breath and placed him on nonrebreather and brought him to the ER Initial lab work done in the ER showed WBC 33.4, hemoglobin 12.2, platelet count 435, PT 51, INR 5.2, sodium 134, potassium 4.2, BUN 37, creatinine 1.83, calcium 7.9, troponin 0.062 Influenza A not detected Influenza B not detected RSV not detected COVID-19 detected EKG done in the ER showed heart rate of 75, ventricular paced rhythm, no ST segment elevation or depression seen, no T-wave inversions seen. Chest x-ray done in the ER showed cardiomegaly and left lower lobe infiltrate Patient admitted to internal medicine service 12/16. Patient seen and examined. Breathing is improved. Still complaining of cough. Denies any chest pain 12/17. Patient seen and examined. Currently not requiring any oxygen. States he feels much better. INR is still above 4 12/18. Patient seen and examined. Patient having dark-colored urine, has history of recent procedure by urology. Did complain of left-sided flank pain this morning. INR this morning is 3.4, hemoglobin is 11.5 12/19. Patient seen and examined. Patient is complaining of left flank pain. Antibiotics were changed to IV Unasyn per ID. 12/20. Patient seen and examined. Yesterday late in the afternoon, patient started having chills, lactate checked at that time was found to be elevated at 4.4. Patient was given fluid resuscitation per sepsis fluid bolus and blood culture ordered. CT abdominal pelvis done showed worsening hydronephrosis with moderate to severe left hydronephrosis from obstructing calculus in the pelvic brim measuring up to 14 x 8 mm. No evidence for airspace consolidation. 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 Currently patient is n.p.o., scheduled for cystoscopy REVIEW OF SYSTEMS: CONSTITUTIONAL: No fever, no malaise,. CARDIOVASCULAR: No chest pain, no palpitations, no syncope. PULMONARY: As mentioned above GASTROINTESTINAL: No diarrhea, no nausea, no vomiting NEUROLOGICAL: No headaches, no weakness, PHYSICAL EXAMINATION: GENERAL: The patient is alert and oriented x3, not in any acute distress. Well developed, well nourished. HEENT: Pupils are round and equally reacting to light. EOMI. No scleral icterus. No conjunctival pallor. Normocephalic, atraumatic. No pharyngeal erythema. No thyromegaly. CARDIOVASCULAR: S1 and S2 present. No murmurs, rubs, or gallops. PULMONARY: Chest is clear to auscultation, no wheezing or crackles. ABDOMEN: Soft, nontender, nondistended, normoactive bowel sounds. No palpable organomegaly. MUSCULOSKELETAL: No joint swelling or deformity. EXTREMITIES: No cyanosis, clubbing, or pedal edema. NEUROLOGICAL: Gross neurological examination did not reveal any focal deficits. SKIN: No rashes. Assessment and plan Acute hypoxic respiratory failure History of COVID-19 infection Supratherapeutic INR Elevated troponin Acute kidney injury UTI Elevated troponins possibly due to acute kidney injury, COVID infection History of recent hydronephrosis status post cystoscopy on 11/18 Hypertension Hyperlipidemia Paroxysmal atrial fibrillation on Coumadin Coagulopathy secondary to Coumadin use and sepsis Sick sinus syndrome status post permanent pacemaker Mild chronic lower extremity edema Chronic diastolic heart failure, patient is currently euvolemic Valvular heart disease with moderate aortic regurgitation and moderate mitral regurgitation Monitor vital signs Monitor CBC Monitor CMP Continue telemetry monitoring Continue oxygen supplementation Repeat blood cultures Serial lactates Continue IV Unasyn CT abdominal pelvis done showed worsening hydronephrosis with moderate to severe left hydronephrosis from obstructing calculus in the pelvic brim measuring up to 14 x 8 mm. No evidence for airspace consolidation. Continue breathing treatments Currently INR is supratherapeutic, hold Coumadin, daily INR checks Cardiology following Pulmonary following ID following Urology following, planning cystoscopy Labs and medication were reviewed.. Continue same treatment. Continue with symptomatic treatment. Resume home medication. Monitor labs and vitals. DVT a nd GI prophylaxis. Further recommendations as per clinical course of the patient Dictation was produced using [employer] dictation software. please excuse any grammatical, word or spelling errors. Objective - Vital Signs Vital signs: Vital Signs Temp 98.2 F 12/21/23 08:12 Pulse 60 12/21/23 08:12 Resp 24 12/21/23 08:12 BP 97/55 12/21/23 08:12 Pulse Ox 92 L 12/21/23 08:12 FiO2 Intake & Output 12/20/23 12/21/23 12/21/23 18:59 06:59 18:59 Output Total 350 250 Balance -350 -250 Weight 122.47 kg Output: Urine 350 250 Other: Voiding Method Incontinent Incontinent External Catheter External Catheter - Labs CBC & Chem 7: 12/21/23 05:29 12/21/23 05:29 Labs: Abnormal Lab Results - Last 24 Hours (Table) 12/20/23 12/20/23 12/20/23 Range/Units 13:05 13:05 16:13 WBC 26.8 H (3.8-10.6) k/uL RBC 4.10 L (4.30-5.90) m/uL Hgb 11.7 L (13.0-17.5) gm/dL Hct 36.7 L (39.0-53.0) % MCHC (31.0-37.0) g/dL Neutrophils # 24.8 H (1.3-7.7) k/uL Neutrophils # (Manual) (1.3-7.7) k/uL Lymphocytes # 0.5 L (1.0-4.8) k/uL Monocytes # 1.1 H (0-1.0) k/uL Metamyelocytes # (Man) (0) k/uL Myelocytes # (Manual) (0) k/uL PT (10.0-12.5) sec INR (<1.2) Sodium 134 L (137-145) mmol/L Chloride 108 H (98-107) mmol/L Carbon Dioxide (22-30) mmol/L BUN 32 H (9-20) mg/dL Creatinine 1.31 H (0.66-1.25) mg/dL Glucose 144 H (74-99) mg/dL Plasma Lactic Acid Yasir 4.4 H* (0.7-2.0) mmol/L Calcium 7.8 L (8.4-10.2) mg/dL Total Protein (6.3-8.2) g/dL Albumin (3.5-5.0) g/dL 12/20/23 12/21/23 12/21/23 Range/Units 19:11 05:29 05:29 WBC 28.3 H (3.8-10.6) k/uL RBC 3.94 L (4.30-5.90) m/uL Hgb 11.0 L (13.0-17.5) gm/dL Hct 36.6 L (39.0-53.0) % MCHC 30.1 L (31.0-37.0) g/dL Neutrophils # (1.3-7.7) k/uL Neutrophils # (Manual) 26.60 H (1.3-7.7) k/uL Lymphocytes # (1.0-4.8) k/uL Monocytes # (0-1.0) k/uL Metamyelocytes # (Man) 0.28 H (0) k/uL Myelocytes # (Manual) 0.28 H (0) k/uL PT 33.4 H (10.0-12.5) sec INR 3.4 H (<1.2) Sodium (137-145) mmol/L Chloride (98-107) mmol/L Carbon Dioxide (22-30) mmol/L BUN (9-20) mg/dL Creatinine (0.66-1.25) mg/dL Glucose (74-99) mg/dL Plasma Lactic Acid Yasir 3.2 H* (0.7-2.0) mmol/L Calcium (8.4-10.2) mg/dL Total Protein (6.3-8.2) g/dL Albumin (3.5-5.0) g/dL 12/21/23 12/21/23 Range/Units 05:29 05:29 WBC (3.8-10.6) k/uL RBC (4.30-5.90) m/uL Hgb (13.0-17.5) gm/dL Hct (39.0-53.0) % MCHC (31.0-37.0) g/dL Neutrophils # (1.3-7.7) k/uL Neutrophils # (Manual) (1.3-7.7) k/uL Lymphocytes # (1.0-4.8) k/uL Monocytes # (0-1.0) k/uL Metamyelocytes # (Man) (0) k/uL Myelocytes # (Manual) (0) k/uL PT (10.0-12.5) sec INR (<1.2) Sodium (137-145) mmol/L Chloride 109 H (98-107) mmol/L Carbon Dioxide 18 L (22-30) mmol/L BUN 30 H (9-20) mg/dL Creatinine 1.38 H (0.66-1.25) mg/dL Glucose 109 H (74-99) mg/dL Plasma Lactic Acid Yasir 5.8 H* (0.7-2.0) mmol/L Calcium 7.2 L (8.4-10.2) mg/dL Total Protein 5.6 L (6.3-8.2) g/dL Albumin 2.7 L (3.5-5.0) g/dL Microbiology - Last 24 Hours (Table) 12/15/23 19:25 Blood Culture - Final Blood 12/15/23 19:10 Blood Culture - Final Blood 12/17/23 18:48 Urine Culture - Final Urine,Voided Enterococcus faecalis
[2023-12-21] MEDS: AMPICILLIN-SULBACTAM 3 GM in SODIUM CHLORIDE 0.9% 100 ML IVPB SCH (14:11)
--- NOTE | 2023-12-21 14:32 | P.PN ---
Subjective Progress Note Date: 12/21/23 Principal diagnosis: Reason for follow-up visit Enterococcus urinary tract infection and leukocytosis Patient is a 83-year-old male past medical history significant for hypertension hyperlipidemia atrial fibrillation heart failure prostate cancer presenting to the hospital for evaluation of increasing shortness of breath weakness did have elevated white count positive UA with urine showing Enterococcus prompting this consultation.Patient is status post cystoscopy and left ureteral stent insertion procedure completed 12/21/2023. On today's evaluation that is 12/21/2023, Patient is afebrile patient is currently on 2 L nasal cannula oxygen and denies having any shortness of breath, the patient denies any chest pain did have some cough but not bringing up any sputum, the patient denies any nausea vomiting did not have any abdominal pain and no diarrhea. Patient did have a white count which is up to 28.3, creatinine is 1.38 lactic acid was 5.8 down to 1.1 . Objective - Vital Signs Vital signs: Vital Signs Temp 98.2 F 12/21/23 08:12 Pulse 60 12/21/23 08:12 Resp 24 12/21/23 08:12 BP 97/55 12/21/23 08:12 Pulse Ox 92 L 12/21/23 08:12 FiO2 Intake & Output 12/20/23 12/21/23 12/21/23 18:59 06:59 18:59 Output Total 350 250 Balance -350 -250 Weight 122.47 kg Output: Urine 350 250 Other: Voiding Method Incontinent Incontinent External Catheter External Catheter - Exam GENERAL DESCRIPTION: An elderly male lying in bed in no distress RESPIRATORY SYSTEM: Unlabored breathing , decreased breath sounds at bases HEART: S1 S2 regular rate and rhythm , ABDOMEN: Soft , no tenderness EXTREMITIES: No edema feet - Labs CBC & Chem 7: 12/21/23 05:29 12/21/23 05:29 Labs: Abnormal Lab Results - Last 24 Hours (Table) 12/20/23 12/20/23 12/20/23 Range/Units 13:05 13:05 16:13 WBC 26.8 H (3.8-10.6) k/uL RBC 4.10 L (4.30-5.90) m/uL Hgb 11.7 L (13.0-17.5) gm/dL Hct 36.7 L (39.0-53.0) % MCHC (31.0-37.0) g/dL Neutrophils # 24.8 H (1.3-7.7) k/uL Neutrophils # (Manual) (1.3-7.7) k/uL Lymphocytes # 0.5 L (1.0-4.8) k/uL Monocytes # 1.1 H (0-1.0) k/uL Metamyelocytes # (Man) (0) k/uL Myelocytes # (Manual) (0) k/uL PT (10.0-12.5) sec INR (<1.2) Sodium 134 L (137-145) mmol/L Chloride 108 H (98-107) mmol/L Carbon Dioxide (22-30) mmol/L BUN 32 H (9-20) mg/dL Creatinine 1.31 H (0.66-1.25) mg/dL Glucose 144 H (74-99) mg/dL Plasma Lactic Acid Yasir 4.4 H* (0.7-2.0) mmol/L Calcium 7.8 L (8.4-10.2) mg/dL Total Protein (6.3-8.2) g/dL Albumin (3.5-5.0) g/dL 12/20/23 12/21/23 12/21/23 Range/Units 19:11 05:29 05:29 WBC 28.3 H (3.8-10.6) k/uL RBC 3.94 L (4.30-5.90) m/uL Hgb 11.0 L (13.0-17.5) gm/dL Hct 36.6 L (39.0-53.0) % MCHC 30.1 L (31.0-37.0) g/dL Neutrophils # (1.3-7.7) k/uL Neutrophils # (Manual) 26.60 H (1.3-7.7) k/uL Lymphocytes # (1.0-4.8) k/uL Monocytes # (0-1.0) k/uL Metamyelocytes # (Man) 0.28 H (0) k/uL Myelocytes # (Manual) 0.28 H (0) k/uL PT 33.4 H (10.0-12.5) sec INR 3.4 H (<1.2) Sodium (137-145) mmol/L Chloride (98-107) mmol/L Carbon Dioxide (22-30) mmol/L BUN (9-20) mg/dL Creatinine (0.66-1.25) mg/dL Glucose (74-99) mg/dL Plasma Lactic Acid Yasir 3.2 H* (0.7-2.0) mmol/L Calcium (8.4-10.2) mg/dL Total Protein (6.3-8.2) g/dL Albumin (3.5-5.0) g/dL 12/21/23 12/21/23 Range/Units 05:29 05:29 WBC (3.8-10.6) k/uL RBC (4.30-5.90) m/uL Hgb (13.0-17.5) gm/dL Hct (39.0-53.0) % MCHC (31.0-37.0) g/dL Neutrophils # (1.3-7.7) k/uL Neutrophils # (Manual) (1.3-7.7) k/uL Lymphocytes # (1.0-4.8) k/uL Monocytes # (0-1.0) k/uL Metamyelocytes # (Man) (0) k/uL Myelocytes # (Manual) (0) k/uL PT (10.0-12.5) sec INR (<1.2) Sodium (137-145) mmol/L Chloride 109 H (98-107) mmol/L Carbon Dioxide 18 L (22-30) mmol/L BUN 30 H (9-20) mg/dL Creatinine 1.38 H (0.66-1.25) mg/dL Glucose 109 H (74-99) mg/dL Plasma Lactic Acid Yasir 5.8 H* (0.7-2.0) mmol/L Calcium 7.2 L (8.4-10.2) mg/dL Total Protein 5.6 L (6.3-8.2) g/dL Albumin 2.7 L (3.5-5.0) g/dL Microbiology - Last 24 Hours (Table) 12/15/23 19:25 Blood Culture - Final Blood 12/15/23 19:10 Blood Culture - Final Blood 12/17/23 18:48 Urine Culture - Final Urine,Voided Enterococcus faecalis Assessment and Plan (1) Enterococcus UTI Current Visit: Yes Status: Acute Code(s): N39.0 - URINARY TRACT INFECTION, SITE NOT SPECIFIED; B95.2 - ENTEROCOCCUS THE CAUSE OF DISEASES CLASSIFIED ELSEWHERE SNOMED Code(s): 598953520110230 (2) Leukocytosis Current Visit: Yes Status: Acute Code(s): D72.829 - ELEVATED WHITE BLOOD CELL COUNT, UNSPECIFIED SNOMED Code(s): 424560178 Plan: 1patient with a symptom of weakness which is multifactorial he did have a posit christian UA some urinary symptoms concerning for symptomatic bladder infection with elevated white count and urine is growing Enterococcus 2-patient noted to have slight worsening of the white count we will monitor closely with repeat CBC with a.m. lab 3-patient urine has been finalized Enterococcus faecalis that is penicillin sensitive, patient did have worsening of the white count more likely due to obstructed left kidney and this patient was status post cystoscopy and left ureteral stent placement, likely he will improvement in his condition as well as white count CBC be repeated tomorrow vancomycin dose adjusted to 3 every 6 hours family the bedside questions answered Dictation was produced using [employer] dictation software. please excuse any grammatical, word or spelling errors. Time with Patient: Less than 30
--- NOTE | 2023-12-22 01:01 | P.PN ---
Subjective Progress Note Date: 12/22/23 Principal diagnosis: Gross hematuria, UTI, left ureteral calculus Mr. Melton underwent left ureteral stent insertion on December 21, 2023. Bloody, malodorous urine drained from the left renal pelvis. A Aguilar catheter was left in place. He is afebrile and comfortable. His only complaint is occasional minimal penile discomfort. Objective - Vital Signs Vital signs: Vital Signs Temp 98 F 12/21/23 23:55 Pulse 57 L 12/21/23 23:55 Resp 16 12/21/23 23:55 BP 93/53 12/21/23 23:55 Pulse Ox 94 L 12/21/23 23:55 FiO2 Intake & Output 12/21/23 12/21/23 12/22/23 06:59 18:59 06:59 Intake Total 600 Output Total 250 275 Balance -250 325 Intake: IV 600 Output: Urine 250 275 Estimated Blood Loss 0 Other: Voiding Method Incontinent Indwelling Catheter Indwelling Catheter External Catheter # Voids 1 - Constitutional General appearance: Present: average body habitus, cooperative, no acute distress - Gastrointestinal Gastrointestinal Comment(s): Soft, non-tender, no mass - Genitourinary Genitourinary Comment(s): The penis shows evidence of phimosis. Aguilar catheter is draining urine which is dark red in color, consistent with old blood. - Psychiatric Psychiatric: Present: A&O x's 3 - Labs CBC & Chem 7: 12/21/23 05:29 12/21/23 05:29 Labs: Abnormal Lab Results - Last 24 Hours (Table) 12/21/23 12/21/23 12/21/23 Range/Units 05:29 05:29 05:29 WBC 28.3 H (3.8-10.6) k/uL RBC 3.94 L (4.30-5.90) m/uL Hgb 11.0 L (13.0-17.5) gm/dL Hct 36.6 L (39.0-53.0) % MCHC 30.1 L (31.0-37.0) g/dL Neutrophils # (Manual) 26.60 H (1.3-7.7) k/uL Metamyelocytes # (Man) 0.28 H (0) k/uL Myelocytes # (Manual) 0.28 H (0) k/uL PT 33.4 H (10.0-12.5) sec INR 3.4 H (<1.2) Chloride 109 H (98-107) mmol/L Carbon Dioxide 18 L (22-30) mmol/L BUN 30 H (9-20) mg/dL Creatinine 1.38 H (0.66-1.25) mg/dL Glucose 109 H (74-99) mg/dL Plasma Lactic Acid Yasir (0.7-2.0) mmol/L Calcium 7.2 L (8.4-10.2) mg/dL Total Protein 5.6 L (6.3-8.2) g/dL Albumin 2.7 L (3.5-5.0) g/dL 12/21/23 Range/Units 05:29 WBC (3.8-10.6) k/uL RBC (4.30-5.90) m/uL Hgb (13.0-17.5) gm/dL Hct (39.0-53.0) % MCHC (31.0-37.0) g/dL Neutrophils # (Manual) (1.3-7.7) k/uL Metamyelocytes # (Man) (0) k/uL Myelocytes # (Manual) (0) k/uL PT (10.0-12.5) sec INR (<1.2) Chloride (98-107) mmol/L Carbon Dioxide (22-30) mmol/L BUN (9-20) mg/dL Creatinine (0.66-1.25) mg/dL Glucose (74-99) mg/dL Plasma Lactic Acid Yasir 5.8 H* (0.7-2.0) mmol/L Calcium (8.4-10.2) mg/dL Total Protein (6.3-8.2) g/dL Albumin (3.5-5.0) g/dL Microbiology - Last 24 Hours (Table) 12/15/23 19:25 Blood Culture - Final Blood 12/15/23 19:10 Blood Culture - Final Blood Assessment and Plan (1) Gross hematuria Current Visit: Yes Status: Acute Code(s): R31.0 - GROSS HEMATURIA SNOMED Code(s): 654212234 Plan: The patient is currently receiving Unasyn for a group D Enterococcus UTI. The ureteral stent has been placed to relieve obstruction resulting from a large left distal ureteral calculus. An intraoperative urine culture was sent to be sure there is not another infecting organism. I would suggest Unasyn be continued, pending the intraoperative urine culture result. The source of the hematuria is the left renal pelvis, and I anticipate that the degree of hematuria will improve in the next 24-48 hours. I explained to the patient that he will require cystoscopy, left ureteral stent removal, and ureteroscopic removal of the calculus in several weeks, once the UTI and hematuria have resolved.
[2023-12-22 07:17] LABS: Basophils % (A) 0 %; Eosinophils % (A) 0 %; HGB 9.6 gm/dL (13.0-17.5); Hypochromasia Slight; Lymphocytes # (A) 0.4 k/uL (1.0-4.8); Lymphocytes % (A) 2 %; MCH 28.3 pg (25.0-35.0); MCHC 30.9 g/dL (31.0-37.0); MCV 91.5 fL (80.0-100.0); Mean Platelet Volume 8.9; Monocytes # (A) 1.6 k/uL (0-1.0); Monocytes % (A) 7 %; Neutrophils # (A) 20.4 k/uL (1.3-7.7); Neutrophils % (A) 90 %; Platelet Count 273 k/uL (150-450); RBC 3.38 m/uL (4.30-5.90); RDW 14.8 % (11.5-15.5); WBC 22.6 k/uL (3.8-10.6)
[2023-12-22 07:28] LABS: Prothrombin Time 29.9 sec (10.0-12.5)
[2023-12-22 07:36] LABS: ALT 25 U/L (4-49); AST 26 U/L (17-59); African American GFR (CKD) 68 (>60 ml/min/1.73 sqM); Alkaline Phosphatase 72 U/L (38-126); Anion Gap 6 mmol/L; Blood Urea Nitrogen 29 mg/dL (9-20); Calcium 7.2 mg/dL (8.4-10.2); Carbon Dioxide 19 mmol/L (22-30); Chloride 115 mmol/L (98-107); Glucose 86 mg/dL (74-99); Non-African American GFR(CKD) 58 (>60 ml/min/1.73 sqM); Potassium 4.1 mmol/L (3.5-5.1); Sodium 140 mmol/L (137-145); Total Bilirubin 0.6 mg/dL (0.2-1.3); Total Protein 4.5 g/dL (6.3-8.2)
[2023-12-22] MEDS: metroNIDAZOLE-NS PMX 500 MG in SALINE 1 100ML.BAG IVPB SCH (12:27)
--- NOTE | 2023-12-22 13:38 | P.PN ---
Subjective Progress Note Date: 12/22/23 patient is a 83-year-old gentleman past medical history significant for atrial fibrillation, hypertension who is currently resident of a half-way who presented to ER for evaluation for worsening shortness of breath. Patient stated that he has been feeling short of breath for the last 1 week. Shortness of breath is present on rest as well as exertion. Patient is complaining of productive cough. Denies any chest pain. There is no complaint of fever or chills. Patient denies any nausea or vomiting. There is no complaint of lightheaded dizziness. Because of worsening shortness of breath EMS was called who found him to be tachypneic and short of breath and placed him on nonrebreather and brought him to the ER Initial lab work done in the ER showed WBC 33.4, hemoglobin 12.2, platelet count 435, PT 51, INR 5.2, sodium 134, potassium 4.2, BUN 37, creatinine 1.83, calcium 7.9, troponin 0.062 Influenza A not detected Influenza B not detected RSV not detected COVID-19 detected EKG done in the ER showed heart rate of 75, ventricular paced rhythm, no ST segment elevation or depression seen, no T-wave inversions seen. Chest x-ray done in the ER showed cardiomegaly and left lower lobe infiltrate Patient admitted to internal medicine service 12/16. Patient seen and examined. Breathing is improved. Still complaining of cough. Denies any chest pain 12/17. Patient seen and examined. Currently not requiring any oxygen. States he feels much better. INR is still above 4 12/18. Patient seen and examined. Patient having dark-colored urine, has history of recent procedure by urology. Did complain of left-sided flank pain this morning. INR this morning is 3.4, hemoglobin is 11.5 12/19. Patient seen and examined. Patient is complaining of left flank pain. Antibiotics were changed to IV Unasyn per ID. 12/20. Patient seen and examined. Yesterday late in the afternoon, patient started having chills, lactate checked at that time was found to be elevated at 4.4. Patient was given fluid resuscitation per sepsis fluid bolus and blood culture ordered. CT abdominal pelvis done showed worsening hydronephrosis with moderate to severe left hydronephrosis from obstructing calculus in the pelvic brim measuring up to 14 x 8 mm. No evidence for airspace consolidation. 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 Currently patient is n.p.o., scheduled for cystoscopy 12/21. Patient seen and examined. Lab work done this morning showed WBC 22.3, hemoglobin 9.6, INR 3 sodium 140, potassium 4.1, BUN 29, creatinine 1.16. S/p cystoscopy with left ureteral stent placement REVIEW OF SYSTEMS: CONSTITUTIONAL: No fever, no malaise,. CARDIOVASCULAR: No chest pain, no palpitations, no syncope. PULMONARY: As mentioned above GASTROINTESTINAL: No diarrhea, no nausea, no vomiting NEUROLOGICAL: No headaches, no weakness, PHYSICAL EXAMINATION: GENERAL: The patient is alert and oriented x3, not in any acute distress. Well d eveloped, well nourished. HEENT: Pupils are round and equally reacting to light. EOMI. No scleral icterus. No conjunctival pallor. Normocephalic, atraumatic. No pharyngeal erythema. No thyromegaly. CARDIOVASCULAR: S1 and S2 present. No murmurs, rubs, or gallops. PULMONARY: Chest is clear to auscultation, no wheezing or crackles. ABDOMEN: Soft, nontender, nondistended, normoactive bowel sounds. No palpable organomegaly. MUSCULOSKELETAL: No joint swelling or deformity. EXTREMITIES: No cyanosis, clubbing, or pedal edema. NEUROLOGICAL: Gross neurological examination did not reveal any focal deficits. SKIN: No rashes. 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 Faecalis Continue IV Unasyn and Flagyl CT abdominal pelvis done showed worsening hydronephrosis with moderate to severe left hydronephrosis from obstructing calculus in the pelvic brim measuring up to 14 x 8 mm. No evidence for airspace consolidation. S/p cystoscopy with left ureteral stent placement on 12/20 Continue breathing treatments Currently INR is supratherapeutic, hold Coumadin, daily INR checks Cardiology following Pulmonary following ID following Urology following Labs and medication were reviewed.. Continue same treatment. Continue with symptomatic treatment. Resume home medication. Monitor labs and vitals. DVT and GI prophylaxis. Further recommendations as per clinical course of the patient Dictation was produced using [employer] dictation software. please excuse any grammatical, word or spelling errors. Objective - Vital Signs Vital signs: Vital Signs Temp 98.1 F 12/22/23 08:00 Pulse 58 L 12/22/23 08:00 Resp 16 12/22/23 08:00 BP 109/58 12/22/23 08:00 Pulse Ox 94 L 12/22/23 08:00 FiO2 Intake & Output 12/21/23 12/22/23 12/22/23 18:59 06:59 18:59 Intake Total 600 Output Total 275 1100 Balance 325 -1100 Intake: IV 600 Output: Urine 275 1100 Estimated Blood Loss 0 Other: Voiding Method Indwelling Catheter Indwelling Catheter # Voids 1 - Labs CBC & Chem 7: 12/22/23 05:57 12/22/23 05:57 Labs: Abnormal Lab Results - Last 24 Hours (Table) 12/22/23 12/22/23 12/22/23 Range/Units 05:57 05:57 05:57 WBC 22.6 H (3.8-10.6) k/uL RBC 3.38 L (4.30-5.90) m/uL Hgb 9.6 L (13.0-17.5) gm/dL Hct 31.0 L (39.0-53.0) % MCHC 30.9 L (31.0-37.0) g/dL Neutrophils # 20.4 H (1.3-7.7) k/uL Lymphocytes # 0.4 L (1.0-4.8) k/uL Monocytes # 1.6 H (0-1.0) k/uL PT 29.9 H (10.0-12.5) sec INR 3.0 H (<1.2) Chloride 115 H (98-107) mmol/L Carbon Dioxide 19 L (22-30) mmol/L BUN 29 H (9-20) mg/dL Calcium 7.2 L (8.4-10.2) mg/dL Total Protein 4.5 L (6.3-8.2) g/dL Albumin 2.0 L (3.5-5.0) g/dL Microbiology - Last 24 Hours (Table) 12/21/23 09:38 Blood Culture Gram Stain - Preliminary Blood Blood Culture - Preliminary Molecular ID
--- NOTE | 2023-12-22 14:14 | P.PN ---
Subjective Progress Note Date: 12/22/23 Principal diagnosis: Acute urinary tract infection This is a 83-year-old male patient was at [facility] recovering from her recent hospitalization and the patient was noted to be more short of breath over the past 1 week and more weak to the point where he was not having the stamina or energy and participating with rehab. Based on that, he was transferred to the hospital and EMS at the time of arrival found the patient to be hypoxic, placed in on 100% nonrebreather facemask and currently the patient is on room air oxygen with a pulse ox of 96%. The patient was initially weaned down to 3 L nasal cannula and currently is down to room air oxygen. I reviewed the chest x-ray from 7 admission and the patient has cardiomegaly and a stable left lower lobe atelectasis possibly a small effusion. Otherwise, no clear airspace disease or consolidations. The white cell count of admission was 33 dropped down to 24, hemoglobin of 12.2 and a platelet count is at 435. The patient's INR was at 5.2 as the patient was taken warfarin and repeat INR from today is at 4.4. The patient has normal electrolytes, creatinine is at 1.8 at the time of admission down to 1.77. He does seem to have a component of chronic kidney disease and his creatinine has been chronically elevated. Troponins were 0.060.05 and 0.03 respectively. COVID-19 testing was positive. The patient was tested +3 weeks ago when he went to [facility] this was reported to be his first COVID-19 infection. As such, it is not a new onset infection and was diagnosed approximately 3 weeks ago. Noted the patient was in the hospital in October 2023 the patient was discharged home on 11/21/2023 after being treated for a obstructive uropathy and an acute on top of the cardiac kidney injury. The patient underwent a laser lithotripsy by urology on 11/19/2023. He was also treated for UTI. He has chronic A-fib, chronic stage IIIb chronic kidney disease, hypertension hyperlipidemia and is quite debilitated at this point and because of his overall generalized weakness he was transferred to [facility] on [facility] for further rehabilitation. The patient also had a repeat urinalysis has not been done. proBNP level was 6720. Echocardiogram done on 11/20/2023 showed impaired LV function with an ejection fraction of 35 to 40%, severely increased left ventricular systolic volume, moderate decrease in the LV global function, dilatation of the right atrium and moderate RV dilatation with normal RV systolic pressure. Mild aortic regurgitation was present. Small to medium sized paracardial effusion was located posteriorly. The patient was given IV fluids. He was given a bolus of 1 L in the emergency department. Cardiology has been consulted. EKG is showing a paced rhythm as the patient has underlying sick sinus syndrome and has a permanent pacemaker in place. He also has paroxysmal atrial fibrillation,. He was given IV Rocephin and Zithromax in the emergency. Reevaluate today on 12/17/2023, patient continues to do well, he is on room air O2 sats of 92%, chest x-ray was reviewed, ultrasound was ordered, and there is not enough fluid in the left pleural space to consider thoracentesis for findings in the left retrocardiac area seems to be findings of atelectasis. Patient remains to be afebrile with a temp of 97 7, heart rate 64 blood pressure 124/58, and his pulse is 83 WBC count is improving down to 17.8 from 33.4 on admission his hemoglobin is 11.5. And basic metabolic profile is normal, renal profile is steadily improving with creatinine down to 1.22 from 1.83 on admission. Considering the patient is not requiring any oxygen, will go ahead and discontinue his Decadron. Patient was evaluated today on 12/18/2023, patient is laying in bed, not in distress, not on oxygen, feels good, no cough, no fever no chills, no chest pain, his INR is supra therapeutic, INR of 4.7, patient has Coumadin on hold presently. His CBC is relatively unremarkable hemoglobin is 11 WBC count is 11.9 basic metabolic profile is normal BUN is 39 creatinine 1.24 patient does have hematuria and most likely it is related to trauma from Aguilar catheter considering his elevated INR nonetheless may have to be addressed by urology Patient was reevaluated today on 12/19/23, patient is doing fairly well except for generalized weakness, continues to have some left-sided flank pain, INR this morning is 3.4, urine is still showing some blood, and I believe the admitting physician is initiating a urology consultation. Patient otherwise is weak, but no cough no fever no chills no hemoptysis chest x-ray continues to show left lower lobe atelectasis, went back to previous x-rays in 2020, patient always had a bit of atelectasis involving the left lower lobe. Would eventually recommend CT of the chest for further evaluation of the left lower lobe, clinically again I strongly doubt pneumonia WBC count today is 14.3 hemoglobin is 11.5 INR is 3.4 basic metabolic profile is normal creatinine is rising up to 1.49 today from 1.24 yesterday his urinalysis is clearly showing evidence of pyuria and hematuria. While as bacteriuria Reevaluated today on 12/20/2023, patient has multiple complaints including weakness, fatigue, ongoing left flank pain, patient is now on Unasyn for antibiotics. Ultrasound of abdomen and pelvis, showed lobulated renal contour with 2.5 cm hypoechoic area within the right kidney and there is evidence of moderate to severe hydronephrosis involving the left kidney appeared similar to CT noted on 11/18/2023. Renal calculi also noted. This is being addressed by urology on the case. Patient is still receiving treatment for Enterococcus group D urinary tract infection. Today I evaluated the patient, and I recommended a CT of the chest to further evaluate the chronic left lower lobe atelectasis. Specially with the patient being quite symptomatic Patient was reevaluated today on 12/21/2023, patient is basically about the same, continues to have multiple symptoms feels better that he is on oxygen today, he has no shortness of breath no cough no wheezing he had yesterday symptoms of weakness fatigue and ongoing left flank pain, CT of the abdomen pelvis showed left-sided hydronephrosis with nephrolithiasis, and the patient is undergoing cystoscopy and left ureteral stent insertion. In the meantime the patient remains on antibiotics for his UTI, and this is being addressed by infectious disease on the case. Patient has worsening leukocytosis today with WBC count of 28.3 hemoglobin 11 INR is 3.4 basic metabolic profile is normal bicarb is 18 BUN is 30 creatinine 1.38, Slightly worse compared to yesterday. Patient was today on 12/22/2023, patient is feeling better today, less flank pain, no shortness of breath, his weakness seems to be even improving, patient is improving clinically overall. His renal profile is improving today, patient remains on antibiotics for his enterococcal infection, and that being addressed by infectious disease on the case. Pulmonary [place]leton denies any cough no wheezing no shortness of breath no chest pain. Blood cultures came back positive for Enterococcus faecalis, and the patient is on Unasyn. Flagyl was added. WBC count is down to 22.6 from 28.3 yesterday hemoglobin is 9.6. INR is 3.0. BUN is 29 creatinine 1.16, significantly improved compared to admission creatinine Objective - Vital Signs Vital signs: Vital Signs Temp 97.7 F 12/22/23 12:00 Pulse 57 L 12/22/23 12:00 Resp 16 12/22/23 12:00 BP 94/57 12/22/23 12:00 Pulse Ox 93 L 12/22/23 12:00 FiO2 Intake & Output 12/21/23 12/22/23 12/22/23 18:59 06:59 18:59 Intake Total 600 118 Output Total 275 1100 Balance 325 -1100 118 Intake: IV 600 Oral 118 Output: Urine 275 1100 Estimated Blood Loss 0 Other: Voiding Method Indwelling Catheter Indwelling Catheter Indwelling Catheter # Voids 1 - Exam Gen: Revealed 83-year-old white male on room air, not in any distress. On 2 L nasal cannula head: Atraumatic normocephalic. HEENT: PERRLA, EOMI, nonicteric. Neck was supple and without jugular venous distension, thyromegaly, or carotid bruits. LUNGS: Clear to auscultation. No wheezes or rhonchi. No intercostal retractions. HEART: Regular rate and rhythm. No murmur. The cardiac rhythm is paced Abdominal exam revealed normal bowel sounds. The abdomen was soft, non-tender, and without masses, organomegaly EXTREMITIES: No clubbing edema or cyanosis NEUROLOGICAL: Patient is awake, alert and oriented x3. Psychiatric: Normal mood affect and no mental status examination Skin: No rash - Labs CBC & Chem 7: 12/22/23 05:57 12/22/23 05:57 Labs: Abnormal Lab Results - Last 24 Hours (Table) 12/22/23 12/22/23 12/22/23 Range/Units 05:57 05:57 05:57 WBC 22.6 H (3.8-10.6) k/uL RBC 3.38 L (4.30-5.90) m/uL Hgb 9.6 L (13.0-17.5) gm/dL Hct 31.0 L (39.0-53.0) % MCHC 30.9 L (31.0-37.0) g/dL Neutrophils # 20.4 H (1.3-7.7) k/uL Lymphocytes # 0.4 L (1.0-4.8) k/uL Monocytes # 1.6 H (0-1.0) k/uL PT 29.9 H (10.0-12.5) sec INR 3.0 H (<1.2) Chloride 115 H (98-107) mmol/L Carbon Dioxide 19 L (22-30) mmol/L BUN 29 H (9-20) mg/dL Calcium 7.2 L (8.4-10.2) mg/dL Total Protein 4.5 L (6.3-8.2) g/dL Albumin 2.0 L (3.5-5.0) g/dL Microbiology - Last 24 Hours (Table) 12/21/23 09:38 Blood Culture Gram Stain - Preliminary Blood Blood Culture - Preliminary Molecular ID Assessment and Plan Assessment: Impression: group D Enterococcus urinary tract infection Left-sided hydronephrosis requiring cystoscopy and stent placement/ureteral stent placement by Dr. Nguyen on 12/21/2023 Right left lower lobe atelectasis, no significant findings noted on CT of the chest except for atelectasis. Evidence of malignancy Chronic stage IIIb kidney disease Paroxysmal atrial fibrillation History of sick sinus syndrome Chronic systolic congestive heart failure with impaired ejection fraction of 30 to 35% Hypertension History of prostate cancer status postradiation treatment Medical debility requiring rehabilitation at the [facility] on the [place] Hematuria probably related to Aguilar catheter trauma and elevated INR Gram-positive bacteremia secondary to Enterococcus faecalis secondary to UTI Recommendation: Continue Flagyl and Unasyn Continue present supportive care measures Procalcitonin level is extremely elevated Left-sided hydronephrosis, addressed by urology already. Status post stent placement. Will continue to follow. Time with Patient: Less than 30
[2023-12-22] MEDS: IOPAMIDOL CONTRAST (ORAL USE) VIAL PO PRN (16:47)
[2023-12-22] MEDS: WARFARIN 0.5 MG TAB PO ONE (17:12)
[2023-12-22] MEDS: WARFARIN 1 MG TAB PO ONE (18:41)
--- NOTE | 2023-12-22 20:25 | CT ---
EXAMINATION TYPE: CT abdomen pelvis wo con DATE OF EXAM: 12/22/2023 COMPARISON: 12/20/2023 INDICATION: Abdominal pain and bacteroids bacteremia. DLP: 1601.4 mGycm, Automated exposure control for dose reduction was used. CONTRAST: 0 mL of Isovue 300. Study performed with Oral Contrast TECHNIQUE: Axial images were obtained from above the diaphragm to the pubic rami in the axial plane a t 5 mm thick sections. Reconstructed images are reviewed on the computer in the coronal plane. FINDINGS: Limited CT sections are obtained the lung bases. Small bilateral pleural effusions are present. Some minimal infiltrate at the left base. Correlate for atelectasis. Moderately prominent pericardial effusion is present.. CT ABDOMEN: Liver: There are multiple prominent cysts within the left lobe liver. Spleen: Normal Pancreas: Normal Adrenal glands: The adrenal glands are normal. Gallbladder: Surgically absent Kidneys: No masses are evident. There is marked left hydronephrosis. Ureteral stent is present with t he tip in the decompressed urinary bladder. Small amount of air subjacent to the upper left renal col lecting system. Correlate for pyelonephritis. Some perinephric stranding is present. Cortical calcifi cations are present bilaterally. Aorta: Vascular calcification is within the aorta. Inferior vena cava: Normal. CT PELVIS: Loops of bowel within the abdomen and pelvis are normal. Diverticulosis is within the sigmoid colon. No adjacent inflammatory changes to suggest acute diverticulitis. There are loops of bowel which a re incompletely distended or lack oral contrast limiting their evaluation. Appendix: Not identified. No dilated tubular structure or inflammatory change is evident. Urinary bladder: Urinary bladder is decompressed with a Aguilar catheter. Genitourinary structures: Prostate is not well visualized. Osseous structures: Degenerative changes are through the lumbar spine and to a lesser degree within t he lower thoracic spine. IMPRESSION: 1. Moderately prominent pericardial effusion. 2. Minimal bilateral pleural effusions. 3. Hepatic cysts. 4. Marked left hydronephrosis. Small amount of air is adjacent to the left renal collecting system. C orrelate for pyelonephritis 5. Diverticulosis without acute diverticulitis.
[2023-12-23 08:39] LABS: Basophils % (A) 0 %; Eosinophils % (A) 0 %; HCT 30.5 % (39.0-53.0); HGB 9.3 gm/dL (13.0-17.5); Hypochromasia Slight; Lymphocytes # (A) 0.4 k/uL (1.0-4.8); Lymphocytes % (A) 2 %; MCH 27.9 pg (25.0-35.0); MCHC 30.3 g/dL (31.0-37.0); MCV 92.1 fL (80.0-100.0); Mean Platelet Volume 8.4; Monocytes # (A) 0.7 k/uL (0-1.0); Monocytes % (A) 4 %; Neutrophils # (A) 16.2 k/uL (1.3-7.7); Neutrophils % (A) 93 %; Platelet Count 303 k/uL (150-450); RBC 3.31 m/uL (4.30-5.90); RDW 14.9 % (11.5-15.5); WBC 17.4 k/uL (3.8-10.6)
[2023-12-23 08:59] LABS: ALT 33 U/L (4-49); AST 39 U/L (17-59); African American GFR (CKD) 69 (>60 ml/min/1.73 sqM); Albumin 2.2 g/dL (3.5-5.0); Alkaline Phosphatase 75 U/L (38-126); Anion Gap 5 mmol/L; Blood Urea Nitrogen 24 mg/dL (9-20); Calcium 7.3 mg/dL (8.4-10.2); Carbon Dioxide 20 mmol/L (22-30); Chloride 114 mmol/L (98-107); Glucose 120 mg/dL (74-99); Non-African American GFR(CKD) 60 (>60 ml/min/1.73 sqM); Sodium 139 mmol/L (137-145); Total Bilirubin 0.7 mg/dL (0.2-1.3); Total Protein 5.1 g/dL (6.3-8.2)
[2023-12-23 09:11] LABS: C Reactive Protein 26.4 mg/dL (<1.0)
[2023-12-23 09:12] LABS: INR 2.3 (<1.2); Prothrombin Time 23.1 sec (10.0-12.5)
--- NOTE | 2023-12-23 13:52 | P.PN ---
Subjective Progress Note Date: 12/23/23 patient is a 83-year-old gentleman past medical history significant for atrial fibrillation, hypertension who is currently resident of a half-way who presented to ER for evaluation for worsening shortness of breath. Patient stated that he has been feeling short of breath for the last 1 week. Shortness of breath is present on rest as well as exertion. Patient is complaining of productive cough. Denies any chest pain. There is no complaint of fever or chills. Patient denies any nausea or vomiting. There is no complaint of lightheaded dizziness. Because of worsening shortness of breath EMS was called who found him to be tachypneic and short of breath and placed him on nonrebreather and brought him to the ER Initial lab work done in the ER showed WBC 33.4, hemoglobin 12.2, platelet count 435, PT 51, INR 5.2, sodium 134, potassium 4.2, BUN 37, creatinine 1.83, calcium 7.9, troponin 0.062 Influenza A not detected Influenza B not detected RSV not detected COVID-19 detected EKG done in the ER showed heart rate of 75, ventricular paced rhythm, no ST segment elevation or depression seen, no T-wave inversions seen. Chest x-ray done in the ER showed cardiomegaly and left lower lobe infiltrate Patient admitted to internal medicine service 12/16. Patient seen and examined. Breathing is improved. Still complaining of cough. Denies any chest pain 12/17. Patient seen and examined. Currently not requiring any oxygen. States he feels much better. INR is still above 4 12/18. Patient seen and examined. Patient having dark-colored urine, has history of recent procedure by urology. Did complain of left-sided flank pain this morning. INR this morning is 3.4, hemoglobin is 11.5 12/19. Patient seen and examined. Patient is complaining of left flank pain. Antibiotics were changed to IV Unasyn per ID. 12/20. Patient seen and examined. Yesterday late in the afternoon, patient started having chills, lactate checked at that time was found to be elevated at 4.4. Patient was given fluid resuscitation per sepsis fluid bolus and blood culture ordered. CT abdominal pelvis done showed worsening hydronephrosis with moderate to severe left hydronephrosis from obstructing calculus in the pelvic brim measuring up to 14 x 8 mm. No evidence for airspace consolidation. 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 Currently patient is n.p.o., scheduled for cystoscopy 12/21. Patient seen and examined. Lab work done this morning showed WBC 22.3, hemoglobin 9.6, INR 3 sodium 140, potassium 4.1, BUN 29, creatinine 1.16. S/p cystoscopy with left ureteral stent placement 12/22. Patient seen and examined. Leukocytosis improving. Patient still complaining of generalized weakness REVIEW OF SYSTEMS: CONSTITUTIONAL: No fever, no malaise,. CARDIOVASCULAR: No chest pain, no palpitations, no syncope. PULMONARY: As mentioned above GASTROINTESTINAL: No diarrhea, no nausea, no vomiting NEUROLOGICAL: No headaches, no weakness, PHYSICAL EXAMINATION: GENERAL: The patient is alert and oriented x3, not in any acute distress. Well developed, well nourished. HEENT: Pupils are round and equally reacting to light. EOMI. No scleral icterus. No conjunctival pallor. Normocephalic, atraumatic. No pharyngeal erythema. No thyromegaly. CARDIOVASCULAR: S1 and S2 present. No murmurs, rubs, or gallops. PULMONARY: Chest is clear to auscultation, no wheezing or crackles. ABDOMEN: Soft, nontender, nondistended, normoactive bowel sounds. No palpable organomegaly. MUSCULOSKELETAL: No joint swelling or deformity. EXTREMITIES: No cyanosis, clubbing, or pedal edema. NEUROLOGICAL: Gross neurological examination did not reveal any focal deficits. SKIN: No rashes. Assessment and plan Sepsis during admission Bacteremia Acute hypoxic respiratory failure History of COVID-19 infection Supratherapeutic INR Elevated troponin Acute kidney injury UTI Elevated troponins possibly due to acute kidney injury, COVID infection History of recent hydronephrosis status post cystoscopy on 11/18 Hypertension Hyperlipidemia Paroxysmal atrial fibrillation on Coumadin Coagulopathy secondary to Coumadin use and sepsis Sick sinus syndrome status post permanent pacemaker Mild chronic lower extremity edema Chronic diastolic heart failure, patient is currently euvolemic Valvular heart disease with moderate aortic regurgitation and moderate mitral regurgitation Monitor vital signs Monitor CBC Monitor CMP Continue telemetry monitoring Continue oxygen supplementation Lactic acidosis resolved Repeat blood cultures growing E. Faecalis Continue IV Unasyn and Flagyl CT abdominal pelvis done showed worsening hydronephrosis with moderate to severe left hydronephrosis from obstructing calculus in the pelvic brim measuring up to 14 x 8 mm. No evidence for airspace consolidation. S/p cystoscopy with left ureteral stent placement on 12/20 Continue breathing treatments Continue Coumadin pharmacy to dose Cardiology following Pulmonary following ID following Urology following Labs and medication were reviewed.. Continue same treatment. Continue with symptomatic treatment. Resume home medication. Monitor labs and vitals. DVT and GI prophylaxis. Further recommendations as per clinical course of the patient Dictation was produced using [employer] dictation software. please excuse any grammatical, word or spelling errors. Objective - Vital Signs Vital signs: Vital Signs Temp 97.8 F 12/23/23 08:10 Pulse 52 L 12/23/23 10:41 Resp 17 12/23/23 10:41 BP 102/51 12/23/23 10:41 Pulse Ox 96 12/23/23 10:41 FiO2 Intake & Output 12/22/23 12/23/23 12/23/23 18:59 06:59 18:59 Intake Total 118 Output Total 175 600 Balance -57 -600 Intake: Oral 118 Output: Urine 175 600 Other: Voiding Method Indwelling Catheter Indwelling Catheter Indwelling Catheter # Bowel Movements 2 - Labs CBC & Chem 7: 12/23/23 07:53 12/23/23 07:53 Labs: Abnormal Lab Results - Last 24 Hours (Table) 12/23/23 12/23/23 12/23/23 Range/Units 07:53 07:53 07:53 WBC 17.4 H (3.8-10.6) k/uL RBC 3.31 L (4.30-5.90) m/uL Hgb 9.3 L (13.0-17.5) gm/dL Hct 30.5 L (39.0-53.0) % MCHC 30.3 L (31.0-37.0) g/dL Neutrophils # 16.2 H (1.3-7.7) k/uL Lymphocytes # 0.4 L (1.0-4.8) k/uL PT 23.1 H (10.0-12.5) sec INR 2.3 H (<1.2) Chloride 114 H (98-107) mmol/L Carbon Dioxide 20 L (22-30) mmol/L BUN 24 H (9-20) mg/dL Glucose 120 H (74-99) mg/dL Calcium 7.3 L (8.4-10.2) mg/dL C-Reactive Protein 26.4 H (<1.0) mg/dL Total Protein 5.1 L (6.3-8.2) g/dL Albumin 2.2 L (3.5-5.0) g/dL Microbiology - Last 24 Hours (Table) 12/21/23 09:46 Blood Culture Gram Stain - Preliminary Blood Blood Culture - Preliminary Group D Enterococcus 12/21/23 09:38 Blood Culture Gram Stain - Preliminary Blood Blood Culture - Preliminary Group D Enterococcus Molecular ID 12/21/23 11:45 Urine Culture - Preliminary Urine,Voided Group D Enterococcus
--- NOTE | 2023-12-23 14:33 | P.PN ---
Subjective Progress Note Date: 12/23/23 Principal diagnosis: Pneumonia. This is a 83-year-old male patient was at [facility] recovering from her recent hospitalization and the patient was noted to be more short of breath over the past 1 week and more weak to the point where he was not having the stamina or energy and participating with rehab. Based on that, he was transferred to the hospital and EMS at the time of arrival found the patient to be hypoxic, placed in on 100% nonrebreather facemask and currently the patient is on room air oxygen with a pulse ox of 96%. The patient was initially weaned down to 3 L mil[place] al cannula and currently is down to room air oxygen. I reviewed the chest x-ray from 7 admission and the patient has cardiomegaly and a stable left lower lobe atelectasis possibly a small effusion. Otherwise, no clear airspace disease or consolidations. The white cell count of admission was 33 dropped down to 24, hemoglobin of 12.2 and a platelet count is at 435. The patient's INR was at 5.2 as the patient was taken warfarin and repeat INR from today is at 4.4. The patient has normal electrolytes, creatinine is at 1.8 at the time of admission down to 1.77. He does seem to have a component of chronic kidney disease and his creatinine has been chronically elevated. Troponins were 0.060.05 and 0.03 respectively. COVID-19 testing was positive. The patient was tested +3 weeks ago when he went to [facility] this was reported to be his first COVID- 19 infection. As such, it is not a new onset infection and was diagnosed approximately 3 weeks ago. Noted the patient was in the hospital in October 2023 the patient was discharged home on 11/21/2023 after being treated for a obstr uctive uropathy and an acute on top of the cardiac kidney injury. The patient underwent a laser lithotripsy by urology on 11/19/2023. He was also treated for UTI. He has chronic A-fib, chronic stage IIIb chronic kidney disease, hypertension hyperlipidemia and is quite debilitated at this point and because of his overall generalized weakness he was transferred to [facility] on [facility] for further rehabilitation. The patient also had a repeat urinalysis has not been done. proBNP level was 6720. Echocardiogram done on 11/20/2023 showed impaired LV function with an ejection fraction of 35 to 40%, severely increased left ventricular systolic volume, moderate decrease in the LV global function, d ilatation of the right atrium and moderate RV dilatation with normal RV systolic pressure. Mild aortic regurgitation was present. Small to medium sized paracardial effusion was located posteriorly. The patient was given IV fluids. He was given a bolus of 1 L in the emergency department. Cardiology has been consulted. EKG is showing a paced rhythm as the patient has underlying sick sinus syndrome and has a permanent pacemaker in place. He also has paroxysmal atrial fibrillation,. He was given IV Rocephin and Zithromax in the emergency. Reevaluate today on 12/17/2023, patient continues to do well, he is on room air O2 sats of 92%, chest x-ray was reviewed, ultrasound was ordered, and there is not enough fluid in the left pleural space to consider thoracentesis for findings in the left retrocardiac area seems to be findings of atelectasis. Patient remains to be afebrile with a temp of 97 7, heart rate 64 blood pressure 124/58, and his pulse is 83 WBC count is improving down to 17.8 from 33.4 on admission his hemoglobin is 11.5. And basic metabolic profile is normal, renal profile is steadily improving with creatinine down to 1.22 from 1.83 on admission. Considering the patient is not requiring any oxygen, will go ahead and discontinue his Decadron. Patient was evaluated today on 12/18/2023, patient is laying in bed, not in distress, not on oxygen, feels good, no cough, no fever no chills, no chest pain, his INR is supra therapeutic, INR of 4.7, patient has Coumadin on hold presently. His CBC is relatively unremarkable hemoglobin is 11 WBC count is 11.9 basic metabolic profile is normal BUN is 39 creatinine 1.24 patient does have hematuria and most likely it is related to trauma from Aguilar catheter considering his elevated INR nonetheless may have to be addressed by urology Patient was reevaluated today on 12/19/23, patient is doing fairly well except for generalized weakness, continues to have some left-sided flank pain, INR this morning is 3.4, urine is still showing some blood, and I believe the admitting physician is initiating a urology consultation. Patient otherwise is weak, but no cough no fever no chills no hemoptysis chest x-ray continues to show left lower lobe atelectasis, went back to previous x-rays in 2020, patient always had a bit of atelectasis involving the left lower lobe. Would eventually recommend CT of the chest for further evaluation of the left lower lobe, clinically again I strongly doubt pneumonia WBC count today is 14.3 hemoglobin is 11.5 INR is 3.4 basic metabolic profile is normal creatinine is rising up to 1.49 today from 1.24 yesterday his urinalysis is clearly showing evidence of pyuria and hematuria. While as bacteriuria Reevaluated today on 12/20/2023, patient has multiple complaints including weakness, fatigue, ongoing left flank pain, patient is now on Unasyn for antibiotics. Ultrasound of abdomen and pelvis, showed lobulated renal contour with 2.5 cm hypoechoic area within the right kidney and there is evidence of moderate to severe hydronephrosis involving the left kidney appeared similar to CT noted on 11/18/2023. Renal calculi also noted. This is being addressed by urology on the case. Patient is still receiving treatment for Enterococcus group D urinary tract infection. Today I evaluated the patient, and I recommended a CT of the chest to further evaluate the chronic left lower lobe atelectasis. Specially with the patient being quite symptomatic Patient was reevaluated today on 12/21/2023, patient is basically about the same, continues to have multiple symptoms feels better that he is on oxygen today, he has no shortness of breath no cough no wheezing he had yesterday symptoms of weakness fatigue and ongoing left flank pain, CT of the abdomen pelvis showed left-sided hydronephrosis with nephrolithiasis, and the patient is undergoing cystoscopy and left ureteral stent insertion. In the meantime the patient remains on antibiotics for his UTI, and this is being addressed by infectious disease on the case. Patient has worsening leukocytosis today with WBC count of 28.3 hemoglobin 11 INR is 3.4 basic metabolic profile is normal bicarb is 18 BUN is 30 creatinine 1.38, Slightly worse compared to yesterday. Patient was today on 12/22/2023, patient is feeling better today, less flank pain, no shortness of breath, his weakness seems to be even improving, patient is improving clinically overall. His renal profile is improving today, patient remains on antibiotics for his enterococcal infection, and that being addressed by infectious disease on the case. Pulmonary middleton denies any cough no wheezing no shortness of breath no chest pain. Blood cultures came back positive for Enterococcus faecalis, and the patient is on Unasyn. Flagyl was added. WBC count is down to 22.6 from 28.3 yesterday hemoglobin is 9.6. INR is 3.0. BUN is 29 creatinine 1.16, significantly improved compared to admission creatinine Progress note dated December 23, 2023. The patient is seen today in room 368. He is currently on 2 L of oxygen. Saturations are 96%. The patient continues on Unasyn, and Flagyl, for group D Enterococcus infection. Other than being very weak, the patient really has no major complaints. He denies any significant shortness of breath. He is not coughing or producing any phlegm. He denies any chest pain or chest pressure. He also denies any GI issues at this time. Current laboratory data includes a white count of 17.4, down from 22.6, hemoglobin 9.3, hematocrit 30.5, and a platelet count of 303,000. PT is 23.1 with an INR of 2.3. Sodium 139, potas sium 4, chlorides 114, CO2 20, BUN 24, creatinine 1.13. Calcium is 7.3. Albumin is 2.2. Blood and urine specimens, show evidence of the Enterococcus, i.e. Enterococcus faecalis. Objective - Vital Signs Vital signs: Vital Signs Temp 97.8 F 12/23/23 08:10 Pulse 52 L 12/23/23 13:08 Resp 17 12/23/23 13:08 BP 102/51 12/23/23 10:41 Pulse Ox 96 12/23/23 10:41 FiO2 Intake & Output 12/22/23 12/23/23 12/23/23 18:59 06:59 18:59 Intake Total 118 Output Total 175 600 200 Balance -57 -600 -200 Intake: Oral 118 Output: Urine 175 600 200 Other: Voiding Method Indwelling Catheter Indwelling Catheter Indwelling Catheter # Bowel Movements 2 - Exam No acute distress, oriented 3. The patient is currently on 2 L of oxygen. HEENT examination is grossly unremarkable. Mucous membranes are moist. No oral lesions. Neck supple. Full range of motion. No adenopathy thyromegaly or neck vein distention. Cardiovascular examination reveals regular rhythm rate. S1-S2 normal. No S3 or S4. No discernible murmur noted. Lungs reveal clear breath sounds. Breath sounds are equal bilaterally. No adventitious lung sounds including wheezes rhonchi or crackles. Abdomen soft bowel sounds are heard. No masses or tenderness. Extremities are intact. No cyanosis clubbing or edema. Skin is without rash or lesion. Neurologic examination is brief but nonfocal. - Labs CBC & Chem 7: 12/23/23 07:53 12/23/23 07:53 Labs: Abnormal Lab Results - Last 24 Hours (Table) 12/23/23 12/23/23 12/23/23 Range/Units 07:53 07:53 07:53 WBC 17.4 H (3.8-10.6) k/uL RBC 3.31 L (4.30-5.90) m/uL Hgb 9.3 L (13.0-17.5) gm/dL Hct 30.5 L (39.0-53.0) % MCHC 30.3 L (31.0-37.0) g/dL Neutrophils # 16.2 H (1.3-7.7) k/uL Lymphocytes # 0.4 L (1.0-4.8) k/uL PT 23.1 H (10.0-12.5) sec INR 2.3 H (<1.2) Chloride 114 H (98-107) mmol/L Carbon Dioxide 20 L (22-30) mmol/L BUN 24 H (9-20) mg/dL Glucose 120 H (74-99) mg/dL Calcium 7.3 L (8.4-10.2) mg/dL C-Reactive Protein 26.4 H (<1.0) mg/dL Total Protein 5.1 L (6.3-8.2) g/dL Albumin 2.2 L (3.5-5.0) g/dL Microbiology - Last 24 Hours (Table) 12/21/23 09:46 Blood Culture Gram Stain - Preliminary Blood Blood Culture - Preliminary Enterococcus faecalis 12/21/23 09:38 Blood Culture Gram Stain - Preliminary Blood Blood Culture - Preliminary Enterococcus faecalis Molecular ID 12/21/23 11:45 Urine Culture - Preliminary Urine,Voided Group D Enterococcus Assessment and Plan Assessment: Group D Enterococcus urinary tract infection. Left-sided hydronephrosis, requiring cystoscopy, and stent placement, 12/21/2023. Bilateral lower lobe atelectasis. Chronic stage IIIb kidney disease. Paroxysmal atrial fibrillation. History of sick sinus syndrome. Chronic systolic CHF. Hypertension. History of prostate cancer, status post radiation treatment. General medical debility. Hematuria. Plan: Plan dated December 23, 2023. The patient is seen today in room 368. The patient is currently on 2 L of oxygen. Saturations are 96%. The patient continues on Unasyn, and Flagyl, as per infectious diseases. Cultures were positive for group D Enterococcus/Enterococcus faecalis. Labs, x-rays, medications are reviewed. The patient's overall prognosis remains guarded. His major complaint today is weakness and fatigue. We will continue to follow make recommendations along the way. Prognosis is certainly guarded. Care is primarily supportive. Time with Patient: Less than 30
--- NOTE | 2023-12-23 16:31 | P.PN ---
Subjective Progress Note Date: 12/23/23 No acute overnight event, continues to have gross hematuria, but urine mainly consistent of old blood. Hemoglobin is stable at 9.3 Objective - Vital Signs Vital signs: Vital Signs Temp 98.2 F 12/23/23 15:49 Pulse 58 L 12/23/23 15:49 Resp 17 12/23/23 15:49 BP 98/45 12/23/23 15:49 Pulse Ox 96 12/23/23 15:49 FiO2 Intake & Output 12/22/23 12/23/23 12/23/23 18:59 06:59 18:59 Intake Total 118 Output Total 175 600 200 Balance -57 -600 -200 Intake: Oral 118 Output: Urine 175 600 200 Other: Voiding Method Indwelling Catheter Indwelling Catheter Indwelling Catheter # Bowel Movements 2 - Constitutional General appearance: Present: no acute distress - Gastrointestinal General gastrointestinal: Present: soft. Absent: distended, tenderness - Labs CBC & Chem 7: 12/23/23 07:53 12/23/23 07:53 Labs: Abnormal Lab Results - Last 24 Hours (Table) 12/23/23 12/23/23 12/23/23 Range/Units 07:53 07:53 07:53 WBC 17.4 H (3.8-10.6) k/uL RBC 3.31 L (4.30-5.90) m/uL Hgb 9.3 L (13.0-17.5) gm/dL Hct 30.5 L (39.0-53.0) % MCHC 30.3 L (31.0-37.0) g/dL Neutrophils # 16.2 H (1.3-7.7) k/uL Lymphocytes # 0.4 L (1.0-4.8) k/uL PT 23.1 H (10.0-12.5) sec INR 2.3 H (<1.2) Chloride 114 H (98-107) mmol/L Carbon Dioxide 20 L (22-30) mmol/L BUN 24 H (9-20) mg/dL Glucose 120 H (74-99) mg/dL Calcium 7.3 L (8.4-10.2) mg/dL C-Reactive Protein 26.4 H (<1.0) mg/dL Total Protein 5.1 L (6.3-8.2) g/dL Albumin 2.2 L (3.5-5.0) g/dL Microbiology - Last 24 Hours (Table) 12/21/23 09:46 Blood Culture Gram Stain - Preliminary Blood Blood Culture - Preliminary Enterococcus faecalis 12/21/23 09:38 Blood Culture Gram Stain - Preliminary Blood Blood Culture - Preliminary Enterococcus faecalis Molecular ID 12/21/23 11:45 Urine Culture - Preliminary Urine,Voided Group D Enterococcus Assessment and Plan Assessment: 83-year-old male status post cystoscopy left stent insertion by Dr. Edmondson on December 20 for a large left ureteral stone. He is having gross hematuria but urine is mainly consistent of old blood, hemoglobin is stable. -Aguilar catheter, can irrigate as needed. He can have a trial of void once gross hematuria improves and he is closer to discharge -Will eventually require left-sided ureteroscopy with holmium laser to address his stone as an outpatient
[2023-12-23] MEDS: WARFARIN 2.5 MG TAB PO ONE (18:39)
--- NOTE | 2023-12-24 11:36 | P.PN ---
Subjective Progress Note Date: 12/24/23 Principal diagnosis: Pneumonia. This is a 83-year-old male patient was at [facility] recovering from her recent hospitalization and the patient was noted to be more short of breath over the past 1 week and more weak to the point where he was not having the stamina or energy and participating with rehab. Based on that, he was transferred to the hospital and EMS at the time of arrival found the patient to be hypoxic, placed in on 100% nonrebreather facemask and currently the patient is on room air oxygen with a pulse ox of 96%. The patient was initially weaned down to 3 L mil[place] al cannula and currently is down to room air oxygen. I reviewed the chest x-ray from 7 admission and the patient has cardiomegaly and a stable left lower lobe atelectasis possibly a small effusion. Otherwise, no clear airspace disease or consolidations. The white cell count of admission was 33 dropped down to 24, hemoglobin of 12.2 and a platelet count is at 435. The patient's INR was at 5.2 as the patient was taken warfarin and repeat INR from today is at 4.4. The patient has normal electrolytes, creatinine is at 1.8 at the time of admission down to 1.77. He does seem to have a component of chronic kidney disease and his creatinine has been chronically elevated. Troponins were 0.060.05 and 0.03 respectively. COVID-19 testing was positive. The patient was tested +3 weeks ago when he went to [facility] this was reported to be his first COVID- 19 infection. As such, it is not a new onset infection and was diagnosed approximately 3 weeks ago. Noted the patient was in the hospital in October 2023 the patient was discharged home on 11/21/2023 after being treated for a obstr uctive uropathy and an acute on top of the cardiac kidney injury. The patient underwent a laser lithotripsy by urology on 11/19/2023. He was also treated for UTI. He has chronic A-fib, chronic stage IIIb chronic kidney disease, hypertension hyperlipidemia and is quite debilitated at this point and because of his overall generalized weakness he was transferred to [facility] for further rehabilitation. The patient also had a repeat urinalysis has not been done. proBNP level was 6720. Echocardiogram done on 11/20/2023 showed impaired LV function with an ejection fraction of 35 to 40%, severely increased left ventricular systolic volume, moderate decrease in the LV global function, d ilatation of the right atrium and moderate RV dilatation with normal RV systolic pressure. Mild aortic regurgitation was present. Small to medium sized paracardial effusion was located posteriorly. The patient was given IV fluids. He was given a bolus of 1 L in the emergency department. Cardiology has been consulted. EKG is showing a paced rhythm as the patient has underlying sick sinus syndrome and has a permanent pacemaker in place. He also has paroxysmal atrial fibrillation,. He was given IV Rocephin and Zithromax in the emergency. Reevaluate today on 12/17/2023, patient continues to do well, he is on room air O2 sats of 92%, chest x-ray was reviewed, ultrasound was ordered, and there is not enough fluid in the left pleural space to consider thoracentesis for findings in the left retrocardiac area seems to be findings of atelectasis. Patient remains to be afebrile with a temp of 97 7, heart rate 64 blood pressure 124/58, and his pulse is 83 WBC count is improving down to 17.8 from 33.4 on admission his hemoglobin is 11.5. And basic metabolic profile is normal, renal profile is steadily improving with creatinine down to 1.22 from 1.83 on admission. Considering the patient is not requiring any oxygen, will go ahead and discontinue his Decadron. Patient was evaluated today on 12/18/2023, patient is laying in bed, not in distress, not on oxygen, feels good, no cough, no fever no chills, no chest pain, his INR is supra therapeutic, INR of 4.7, patient has Coumadin on hold presently. His CBC is relatively unremarkable hemoglobin is 11 WBC count is 11.9 basic metabolic profile is normal BUN is 39 creatinine 1.24 patient does have hematuria and most likely it is related to trauma from Aguilar catheter considering his elevated INR nonetheless may have to be addressed by urology Patient was reevaluated today on 12/19/23, patient is doing fairly well except for generalized weakness, continues to have some left-sided flank pain, INR this morning is 3.4, urine is still showing some blood, and I believe the admitting physician is initiating a urology consultation. Patient otherwise is weak, but no cough no fever no chills no hemoptysis chest x-ray continues to show left lower lobe atelectasis, went back to previous x-rays in 2020, patient always had a bit of atelectasis involving the left lower lobe. Would eventually recommend CT of the chest for further evaluation of the left lower lobe, clinically again I strongly doubt pneumonia WBC count today is 14.3 hemoglobin is 11.5 INR is 3.4 basic metabolic profile is normal creatinine is rising up to 1.49 today from 1.24 yesterday his urinalysis is clearly showing evidence of pyuria and hematuria. While as bacteriuria Reevaluated today on 12/20/2023, patient has multiple complaints including weakness, fatigue, ongoing left flank pain, patient is now on Unasyn for antibiotics. Ultrasound of abdomen and pelvis, showed lobulated renal contour with 2.5 cm hypoechoic area within the right kidney and there is evidence of moderate to severe hydronephrosis involving the left kidney appeared similar to CT noted on 11/18/2023. Renal calculi also noted. This is being addressed by urology on the case. Patient is still receiving treatment for Enterococcus group D urinary tract infection. Today I evaluated the patient, and I recommended a CT of the chest to further evaluate the chronic left lower lobe atelectasis. Specially with the patient being quite symptomatic Patient was reevaluated today on 12/21/2023, patient is basically about the same, continues to have multiple symptoms feels better that he is on oxygen today, he has no shortness of breath no cough no wheezing he had yesterday symptoms of weakness fatigue and ongoing left flank pain, CT of the abdomen pelvis showed left-sided hydronephrosis with nephrolithiasis, and the patient is undergoing cystoscopy and left ureteral stent insertion. In the meantime the patient remains on antibiotics for his UTI, and this is being addressed by infectious disease on the case. Patient has worsening leukocytosis today with WBC count of 28.3 hemoglobin 11 INR is 3.4 basic metabolic profile is normal bicarb is 18 BUN is 30 creatinine 1.38, Slightly worse compared to yesterday. Patient was today on 12/22/2023, patient is feeling better today, less flank pain, no shortness of breath, his weakness seems to be even improving, patient is improving clinically overall. His renal profile is improving today, patient remains on antibiotics for his enterococcal infection, and that being addressed by infectious disease on the case. Pulmonary m[place]leton denies any cough no wheezing no shortness of breath no chest pain. Blood cultures came back positive for Enterococcus faecalis, and the patient is on Unasyn. Flagyl was added. WBC count is down to 22.6 from 28.3 yesterday hemoglobin is 9.6. INR is 3.0. BUN is 29 creatinine 1.16, significantly improved compared to admission creatinine Progress note dated December 23, 2023. The patient is seen today in room 368. He is currently on 2 L of oxygen. Saturations are 96%. The patient continues on Unasyn, and Flagyl, for group D Enterococcus infection. Other than being very weak, the patient really has no major complaints. He denies any significant shortness of breath. He is not coughing or producing any phlegm. He denies any chest pain or chest pressure. He also denies any GI issues at this time. Current laboratory data includes a white count of 17.4, down from 22.6, hemoglobin 9.3, hematocrit 30.5, and a platelet count of 303,000. PT is 23.1 with an INR of 2.3. Sodium 139, potas sium 4, chlorides 114, CO2 20, BUN 24, creatinine 1.13. Calcium is 7.3. Albumin is 2.2. Blood and urine specimens, show evidence of the Enterococcus, i.e. Enterococcus faecalis. Progress note dated December 24, 2023. 83-year-old male seen today in room 368. He is currently on oxygen at 2 L. He is receiving saline at 100 cc an hour. Saturations are excellent. The patient continues on antibiotics for group D Enterococcus infection. The patient feels like he is getting better, and albeit slowly. He denies any shortness of breath, cough, wheezing, chest tightness, or phlegm production. He also denies any chest pain or pressure. No new laboratory data today. Lab data from yesterday, has been evaluated. Blood and urine specimens show evidence of Enterococcus. The patient continues on Unasyn, and Flagyl. Objective - Vital Signs Vital signs: Vital Signs Temp 97.8 F 12/24/23 11:03 Pulse 63 12/24/23 11:03 Resp 17 12/24/23 11:03 BP 121/63 12/24/23 11:03 Pulse Ox 96 12/24/23 11:03 FiO2 Intake & Output 12/23/23 12/24/23 12/24/23 18:59 06:59 18:59 Intake Total 360 10 427 Output Total 700 400 Balance -340 -390 427 Intake: IV 10 10 Invasive Line 5 10 10 Oral 360 417 Output: Urine 700 400 Other: Voiding Method Indwelling Catheter Indwelling Catheter Indwelling Catheter - Exam No acute distress, oriented 3. The patient is currently on 2 L of oxygen. HEENT examination is grossly unremarkable. Mucous membranes are moist. No oral lesions. Neck supple. Full range of motion. No adenopathy thyromegaly or neck vein distention. Cardiovascular examination reveals regular rhythm rate. S1-S2 normal. No S3 or S4. No discernible murmur noted. Heart rate is 63 bpm. Lungs reveal clear breath sounds. Breath sounds are equal bilaterally. No adventitious lung sounds including wheezes rhonchi or crackles. Abdomen soft bowel sounds are heard. No masses or tenderness. Extremities are intact. No cyanosis clubbing or edema. Skin is without rash or lesion. Neurologic examination is brief but nonfocal. - Labs CBC & Chem 7: 12/23/23 07:53 12/23/23 07:53 Labs: Microbiology - Last 24 Hours (Table) 12/21/23 09:46 Blood Culture Gram Stain - Preliminary Blood Blood Culture - Preliminary Enterococcus faecalis 12/21/23 09:38 Blood Culture Gram Stain - Preliminary Blood Blood Culture - Preliminary Enterococcus faecalis Molecular ID 12/21/23 11:45 Urine Culture - Preliminary Urine,Voided Group D Enterococcus Assessment and Plan Assessment: Group D Enterococcus urinary tract infection. Left-sided hydronephrosis, requiring cystoscopy, and stent placement, 12/21/2023. Bilateral lower lobe atelectasis. Chronic stage IIIb kidney disease. Paroxysmal atrial fibrillation. History of sick sinus syndrome. Chronic systolic CHF. Hypertension. History of prostate cancer, status post radiation treatment. General medical debility. Hematuria. Plan: Plan dated December 23, 2023. The patient is seen today in room 368. The patient is currently on 2 L of oxygen. Saturations are 96%. The patient continues on Unasyn, and Flagyl, as per infectious diseases. Cultures were positive for group D Enterococcus/Enterococcus faecalis. Labs, x-rays, medications are reviewed. The patient's overall prognosis remains guarded. His major complaint today is weakness and fatigue. We will continue to follow make recommendations along the way. Prognosis is certainly guarded. Care is primarily supportive. Plan dated December 24, 2023. The patient is again seen today in room 368. The patient's primary issue is weakness. The patient is currently on oxygen, at 2 L. He is receiving saline, 100 cc an hour. The patient is on both Unasyn, and Flagyl. Cultures were pos itive for group B Enterococcus. Labs, x-rays, medications are reviewed. Will continue to follow the patient, make recommendations. Prognosis is guarded. We encourage the patient to get out of bed. Time with Patient: Less than 30
--- NOTE | 2023-12-24 12:23 | P.PN ---
Subjective No acute overnight event, gross hematuria improved compared to yesterday Objective - Vital Signs Vital signs: Vital Signs Temp 97.8 F 12/24/23 11:03 Pulse 63 12/24/23 11:03 Resp 17 12/24/23 11:03 BP 121/63 12/24/23 11:03 Pulse Ox 96 12/24/23 11:03 FiO2 Intake & Output 12/23/23 12/24/23 12/24/23 18:59 06:59 18:59 Intake Total 360 10 427 Output Total 700 400 Balance -340 -390 427 Weight 122.47 kg Intake: IV 10 10 Invasive Line 5 10 10 Oral 360 417 Output: Urine 700 400 Other: Voiding Method Indwelling Catheter Indwelling Catheter Indwelling Catheter - Constitutional General appearance: Present: no acute distress - Gastrointestinal General gastrointestinal: Present: soft. Absent: distended, tenderness - Psychiatric Psychiatric: Present: A&O x's 3 - Labs CBC & Chem 7: 12/23/23 07:53 12/23/23 07:53 Labs: Microbiology - Last 24 Hours (Table) 12/21/23 09:46 Blood Culture Gram Stain - Preliminary Blood Blood Culture - Preliminary Enterococcus faecalis 12/21/23 09:38 Blood Culture Gram Stain - Preliminary Blood Blood Culture - Preliminary Enterococcus faecalis Molecular ID 12/21/23 11:45 Urine Culture - Preliminary Urine,Voided Group D Enterococcus Assessment and Plan Assessment: 83-year-old male status post cystoscopy left stent insertion by Dr. Edmondson on December 20 for a large left ureteral stone. On evaluation today his gross hematuria is improved compared to yesterday -Aguilar catheter, can irrigate as needed. He can have a trial of void once gross hematuria improves and he is closer to discharge -Will eventually require left-sided ureteroscopy with holmium laser to address his stone as an outpatient
--- NOTE | 2023-12-24 12:26 | P.PN ---
Subjective Progress Note Date: 12/24/23 patient is a 83-year-old gentleman past medical history significant for atrial fibrillation, hypertension who is currently resident of a [facility] who presented to ER for evaluation for worsening shortness of breath. Patient stated that he has been feeling short of breath for the last 1 week. Shortness of breath is present on rest as well as exertion. Patient is complaining of productive cough. Denies any chest pain. There is no complaint of fever or chills. Patient denies any nausea or vomiting. There is no complaint of lightheaded dizziness. Because of worsening shortness of breath EMS was called who found him to be tachypneic and short of breath and placed him on nonrebreather and brought him to the ER Initial lab work done in the ER showed WBC 33.4, hemoglobin 12.2, platelet count 435, PT 51, INR 5.2, sodium 134, potassium 4.2, BUN 37, creatinine 1.83, calcium 7.9, troponin 0.062 Influenza A not detected Influenza B not detected RSV not detected COVID-19 detected EKG done in the ER showed heart rate of 75, ventricular paced rhythm, no ST segment elevation or depression seen, no T-wave inversions seen. Chest x-ray done in the ER showed cardiomegaly and left lower lobe infiltrate Patient admitted to internal medicine service 12/16. Patient seen and examined. Breathing is improved. Still complaining of cough. Denies any chest pain 12/17. Patient seen and examined. Currently not requiring any oxygen. States he feels much better. INR is still above 4 12/18. Patient seen and examined. Patient having dark-colored urine, has history of recent procedure by urology. Did complain of left-sided flank pain this morning. INR this morning is 3.4, hemoglobin is 11.5 12/19. Patient seen and examined. Patient is complaining of left flank pain. Antibiotics were changed to IV Unasyn per ID. 12/20. Patient seen and examined. Yesterday late in the afternoon, patient started having chills, lactate checked at that time was found to be elevated at 4.4. Patient was given fluid resuscitation per sepsis fluid bolus and blood culture ordered. CT abdominal pelvis done showed worsening hydronephrosis with moderate to severe left hydronephrosis from obstructing calculus in the pelvic brim measuring up to 14 x 8 mm. No evidence for airspace consolidation. 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 Currently patient is n.p.o., scheduled for cystoscopy 12/21. Patient seen and examined. Lab work done this morning showed WBC 22.3, hemoglobin 9.6, INR 3 sodium 140, potassium 4.1, BUN 29, creatinine 1.16. S/p cystoscopy with left ureteral stent placement 12/22. Patient seen and examined. Leukocytosis improving. Patient still complaining of generalized weakness 12/23. Patient seen and examined. Hematuria is improving, still has Aguilar in place. Denies abdominal pain. REVIEW OF SYSTEMS: CONSTITUTIONAL: No fever, no malaise,. CARDIOVASCULAR: No chest pain, no palpitations, no syncope. PULMONARY: As mentioned above GASTROINTESTINAL: No diarrhea, no nausea, no vomiting NEUROLOGICAL: No headaches, no weakness, PHYSICAL EXAMINATION: GENERAL: The patient is alert and oriented x3, not in any acute distress. Well developed, well nourished. HEENT: Pupils are round and equally reacting to light. EOMI. No scleral icterus. No conjunctival pallor. Normocephalic, atraumatic. No pharyngeal erythema. No thyromegaly. CARDIOVASCULAR: S1 and S2 present. No murmurs, rubs, or gallops. PULMONARY: Chest is clear to auscultation, no wheezing or crackles. ABDOMEN: Soft, nontender, nondistended, normoactive bowel sounds. No palpable organomegaly. MUSCULOSKELETAL: No joint swelling or deformity. EXTREMITIES: No cyanosis, clubbing, or pedal edema. NEUROLOGICAL: Gross neurological examination did not reveal any focal deficits. SKIN: No rashes. Assessment and plan Sepsis during admission Bacteremia Acute hypoxic respiratory failure History of COVID-19 infection Supratherapeutic INR Elevated troponin Acute kidney injury UTI Elevated troponins possibly due to acute kidney injury, COVID infection History of recent hydronephrosis status post cystoscopy on 11/18 Hypertension Hyperlipidemia Paroxysmal atrial fibrillation on Coumadin Coagulopathy secondary to Coumadin use and sepsis Sick sinus syndrome status post permanent pacemaker Mild chronic lower extremity edema Chronic diastolic heart failure, patient is currently euvolemic Valvular heart disease with moderate aortic regurgitation and moderate mitral regurgitation Monitor vital signs Monitor CBC Monitor CMP Continue telemetry monitoring Continue oxygen supplementation Lactic acidosis resolved Repeat blood cultures growing E. Faecalis Continue IV Unasyn and Flagyl CT abdominal pelvis done showed worsening hydronephrosis with moderate to severe left hydronephrosis from obstructing calculus in the pelvic brim measuring up to 14 x 8 mm. No evidence for airspace consolidation. S/p cystoscopy with left ureteral stent placement on 12/20 Continue breathing treatments Continue Coumadin pharmacy to dose Cardiology following Pulmonary following ID following Urology following Labs and medication were reviewed.. Continue same treatment. Continue with symptomatic treatment. Resume home medication. Monitor labs and vitals. DVT and GI prophylaxis. Further recommendations as per clinical course of the patient Dictation was produced using [employer] dictation software. please excuse any grammatical, word or spelling errors. Objective - Vital Signs Vital signs: Vital Signs Temp 97.8 F 12/24/23 11:03 Pulse 63 12/24/23 11:03 Resp 17 12/24/23 11:03 BP 121/63 12/24/23 11:03 Pulse Ox 96 12/24/23 11:03 FiO2 Intake & Output 12/23/23 12/24/23 12/24/23 18:59 06:59 18:59 Intake Total 360 10 427 Output Total 700 400 Balance -340 -390 427 Weight 122.47 kg Intake: IV 10 10 Invasive Line 5 10 10 Oral 360 417 Output: Urine 700 400 Other: Voiding Method Indwelling Catheter Indwelling Catheter Indwelling Catheter - Labs CBC & Chem 7: 12/23/23 07:53 12/23/23 07:53 Labs: Microbiology - Last 24 Hours (Table) 12/21/23 09:46 Blood Culture Gram Stain - Preliminary Blood Blood Culture - Preliminary Enterococcus faecalis 12/21/23 09:38 Blood Culture Gram Stain - Preliminary Blood Blood Culture - Preliminary Enterococcus faecalis Molecular ID 12/21/23 11:45 Urine Culture - Preliminary Urine,Voided Group D Enterococcus
[2023-12-24] MEDS: WARFARIN 2.5 MG TAB PO ONE (16:58)
--- NOTE | 2023-12-25 08:24 | P.PN ---
Subjective Progress Note Date: 12/22/23 Principal diagnosis: Reason for follow-up visit Enterococcus urinary tract infection and leukocytosis Patient is a 83-year-old male past medical history significant for hypertension hyperlipidemia atrial fibrillation heart failure prostate cancer presenting to the hospital for evaluation of increasing shortness of breath weakness did have elevated white count positive UA with urine showing Enterococcus prompting this consultation.Patient is status post cystoscopy and left ureteral stent insertion procedure completed 12/21/2023. On today's evaluation that is 12/22/2023, patient has been afebrile, patient is breathing comfortably and is currently on 2 L nasal cannula oxygen, patient denies having any significant cough no chest pain shortness of breath, patient denies nausea vomiting or diarrhea and some left-sided abdominal pain. Patient white count is down to 22.6, creatinine is 1.16 Objective - Vital Signs Vital signs: Vital Signs Temp 97.7 F 12/22/23 12:00 Pulse 57 L 12/22/23 14:00 Resp 16 12/22/23 14:00 BP 94/57 12/22/23 12:00 Pulse Ox 93 L 12/22/23 12:00 FiO2 Intake & Output 12/21/23 12/22/23 12/22/23 18:59 06:59 18:59 Intake Total 600 118 Output Total 275 1100 Balance 325 -1100 118 Intake: IV 600 Oral 118 Output: Urine 275 1100 Estimated Blood Loss 0 Other: Voiding Method Indwelling Catheter Indwelling Catheter Indwelling Catheter # Voids 1 - Exam GENERAL DESCRIPTION: An elderly male lying in bed in no distress RESPIRATORY SYSTEM: Unlabored breathing , decreased breath sounds at bases HEART: S1 S2 regular rate and rhythm , ABDOMEN: Soft , no tenderness EXTREMITIES: No edema feet - Labs CBC & Chem 7: 12/23/23 07:53 12/23/23 07:53 Labs: Abnormal Lab Results - Last 24 Hours (Table) 12/22/23 12/22/23 12/22/23 Range/Units 05:57 05:57 05:57 WBC 22.6 H (3.8-10.6) k/uL RBC 3.38 L (4.30-5.90) m/uL Hgb 9.6 L (13.0-17.5) gm/dL Hct 31.0 L (39.0-53.0) % MCHC 30.9 L (31.0-37.0) g/dL Neutrophils # 20.4 H (1.3-7.7) k/uL Lymphocytes # 0.4 L (1.0-4.8) k/uL Monocytes # 1.6 H (0-1.0) k/uL PT 29.9 H (10.0-12.5) sec INR 3.0 H (<1.2) Chloride 115 H (98-107) mmol/L Carbon Dioxide 19 L (22-30) mmol/L BUN 29 H (9-20) mg/dL Calcium 7.2 L (8.4-10.2) mg/dL Total Protein 4.5 L (6.3-8.2) g/dL Albumin 2.0 L (3.5-5.0) g/dL Microbiology - Last 24 Hours (Table) 12/21/23 09:38 Blood Culture Gram Stain - Preliminary Blood Blood Culture - Preliminary Molecular ID Assessment and Plan (1) Enterococcus UTI Current Visit: Yes Status: Acute Code(s): N39.0 - URINARY TRACT INFECTION, SITE NOT SPECIFIED; B95.2 - ENTEROCOCCUS THE CAUSE OF DISEASES CLASSIFIED ELSEWHERE SNOMED Code(s): 651823655888067 (2) Leukocytosis Current Visit: Yes Status: Acute Code(s): D72.829 - ELEVATED WHITE BLOOD CELL COUNT, UNSPECIFIED SNOMED Code(s): 941777609 Plan: 1patient with a symptom of weakness which is multifactorial he did have a positive UA some urinary symptoms concerning for symptomatic bladder infection with elevated white count and urine is growing Enterococcus 2-patient noted to have slight worsening of the white count we will monitor closely with repeat CBC with a.m. lab 3-patient urine has been finalized Enterococcus faecalis that is penicillin sensitive, patient blood cultures are growing Enterococcus faecalis as well as bacteroids species which can be of current origin CT abdominal pelvis has been ordered patient to continue with Unasyn Flagyl has been added for bacteroids blood culture repeated Dictation was produced using [employer] dictation software. please excuse any grammatical, word or spelling errors. Time with Patient: Less than 30
--- NOTE | 2023-12-25 08:26 | P.PN ---
Subjective Progress Note Date: 12/23/23 Principal diagnosis: Reason for follow-up visit Enterococcus urinary tract infection and leukocytosis Patient is a 83-year-old male past medical history significant for hypertension hyperlipidemia atrial fibrillation heart failure prostate cancer presenting to the hospital for evaluation of increasing shortness of breath weakness did have elevated white count positive UA with urine showing Enterococcus prompting this consultation.Patient is status post cystoscopy and left ureteral stent insertion procedure completed 12/21/2023. On today's evaluation that is 12/23/2023,the patient denies any fever or any chills, patient is breathing comfortably on 2 L nasal cannula oxygen, the patient denies chest pain shortness of breath and no significant cough, patient denies abdominal pain, complaining of some nausea but in no vomiting some diarrhea. Patient white blood count 17.4, creatinine 1.13 Objective - Vital Signs Vital signs: Vital Signs Temp 97.8 F 12/23/23 08:10 Pulse 52 L 12/23/23 10:41 Resp 17 12/23/23 10:41 BP 102/51 12/23/23 10:41 Pulse Ox 96 12/23/23 10:41 FiO2 Intake & Output 12/22/23 12/23/23 12/23/23 18:59 06:59 18:59 Intake Total 118 Output Total 175 600 Balance -57 -600 Intake: Oral 118 Output: Urine 175 600 Other: Voiding Method Indwelling Catheter Indwelling Catheter Indwelling Catheter # Bowel Movements 2 - Exam GENERAL DESCRIPTION: An elderly male lying in bed in no distress RESPIRATORY SYSTEM: Unlabored breathing , decreased breath sounds at bases HEART: S1 S2 regular rate and rhythm , ABDOMEN: Soft , no tenderness EXTREMITIES: No edema feet - Labs CBC & Chem 7: 12/23/23 07:53 12/23/23 07:53 Labs: Abnormal Lab Results - Last 24 Hours (Table) 12/23/23 12/23/23 12/23/23 Range/Units 07:53 07:53 07:53 WBC 17.4 H (3.8-10.6) k/uL RBC 3.31 L (4.30-5.90) m/uL Hgb 9.3 L (13.0-17.5) gm/dL Hct 30.5 L (39.0-53.0) % MCHC 30.3 L (31.0-37.0) g/dL Neutrophils # 16.2 H (1.3-7.7) k/uL Lymphocytes # 0.4 L (1.0-4.8) k/uL PT 23.1 H (10.0-12.5) sec INR 2.3 H (<1.2) Chloride 114 H (98-107) mmol/L Carbon Dioxide 20 L (22-30) mmol/L BUN 24 H (9-20) mg/dL Glucose 120 H (74-99) mg/dL Calcium 7.3 L (8.4-10.2) mg/dL C-Reactive Protein 26.4 H (<1.0) mg/dL Total Protein 5.1 L (6.3-8.2) g/dL Albumin 2.2 L (3.5-5.0) g/dL Microbiology - Last 24 Hours (Table) 12/21/23 09:46 Blood Culture Gram Stain - Preliminary Blood Blood Culture - Preliminary Group D Enterococcus 12/21/23 09:38 Blood Culture Gram Stain - Preliminary Blood Blood Culture - Preliminary Group D Enterococcus Molecular ID 12/21/23 11:45 Urine Culture - Preliminary Urine,Voided Group D Enterococcus Assessment and Plan (1) Enterococcus UTI Current Visit: Yes Status: Acute Code(s): N39.0 - URINARY TRACT INFECTION, SITE NOT SPECIFIED; B95.2 - ENTEROCOCCUS THE CAUSE OF DISEASES CLASSIFIED ELSEWHERE SNOMED Code(s): 535426796598997 (2) Leukocytosis Current Visit: Yes Status: Acute Code(s): D72.829 - ELEVATED WHITE BLOOD CELL COUNT, UNSPECIFIED SNOMED Code(s): 303162658 Plan: 1patient with a symptom of weakness which is multifactorial he did have a positive UA some urinary symptoms concerning for symptomatic bladder infection with elevated white count and urine is growing Enterococcus 2-patient noted to have slight worsening of the white count we will monitor closely with repeat CBC with a.m. lab 3-patient urine has been finalized Enterococcus faecalis that is penicillin sensitive, patient blood cultures are growing Enterococcus faecalis as well as bacteroids species 4-patient did have CT abdominal pelvis did shows marked left-sided hydronephrosis and diverticulosis but no diverticulitis and no mention of any abscess or colitis 5the patient white count is trending down blood culture repeat is will be followed continue the patient on Unasyn and Flagyl Dictation was produced using [employer] dictation software. please excuse any grammatical, word or spelling errors. Time with Patient: Less than 30
--- NOTE | 2023-12-25 08:29 | P.PN ---
Subjective Progress Note Date: 12/24/23 Principal diagnosis: Reason for follow-up visit Enterococcus urinary tract infection and leukocytosis Patient is a 83-year-old male past medical history significant for hypertension hyperlipidemia atrial fibrillation heart failure prostate cancer presenting to the hospital for evaluation of increasing shortness of breath weakness did have elevated white count positive UA with urine showing Enterococcus prompting this consultation.Patient is status post cystoscopy and left ureteral stent insertion procedure completed 12/21/2023. On today's evaluation that is 12/24/2023,the patient remains to be afebrile, patient is on 2 L nasal cannula supplemental oxygen and denies any shortness of breath no chest pain or cough.Patient denies having any nausea or vomiting, no a bdominal pain and no diarrhea has been reported. Patient INR is 2.0 no CBC was done today Objective - Vital Signs Vital signs: Vital Signs Temp 97.8 F 12/24/23 11:03 Pulse 63 12/24/23 11:03 Resp 17 12/24/23 11:03 BP 121/63 12/24/23 11:03 Pulse Ox 96 12/24/23 11:03 FiO2 Intake & Output 12/23/23 12/24/23 12/24/23 18:59 06:59 18:59 Intake Total 360 10 427 Output Total 700 400 Balance -340 -390 427 Weight 122.47 kg Intake: IV 10 10 Invasive Line 5 10 10 Oral 360 417 Output: Urine 700 400 Other: Voiding Method Indwelling Catheter Indwelling Catheter Indwelling Catheter - Exam GENERAL DESCRIPTION: An elderly male lying in bed in no distress RESPIRATORY SYSTEM: Unlabored breathing , decreased breath sounds at bases HEART: S1 S2 regular rate and rhythm , ABDOMEN: Soft , no tenderness EXTREMITIES: No edema feet - Labs CBC & Chem 7: 12/23/23 07:53 12/23/23 07:53 Labs: Microbiology - Last 24 Hours (Table) 12/21/23 09:38 Blood Culture Gram Stain - Final Blood Blood Culture - Final Enterococcus faecalis Bacteroides fragilis Molecular ID 12/21/23 09:46 Blood Culture Gram Stain - Final Blood Blood Culture - Final Enterococcus faecalis Assessment and Plan (1) Enterococcus UTI Current Visit: Yes Status: Acute Code(s): N39.0 - URINARY TRACT INFECTION, SITE NOT SPECIFIED; B95.2 - ENTEROCOCCUS THE CAUSE OF DISEASES CLASSIFIED ELSEWHERE SNOMED Code(s): 753456653259950 (2) Leukocytosis Current Visit: Yes Status: Acute Code(s): D72.829 - ELEVATED WHITE BLOOD CELL COUNT, UNSPECIFIED SNOMED Code(s): 902994354 (3) Bacteremia Current Visit: Yes Status: Acute Code(s): R78.81 - BACTEREMIA SNOMED Code(s): 8074384 Plan: 1patient with a symptom of weakness which is multifactorial he did have a positive UA some urinary symptoms concerning for symptomatic bladder infection with elevated white count and urine is growing Enterococcus 2--patient urine has been finalized Enterococcus faecalis that is penicillin sensitive, patient blood cultures are growing Enterococcus faecalis as well as bacteroids species 3-patient did have CT abdominal pelvis did shows marked left-sided hydroneph rosis and diverticulosis but no diverticulitis and no mention of any abscess or colitis 4the patient white count is trending down as of yesterday no CBC was done today, blood culture repeat has been negative so far 5-patient to continue with Unasyn and Flagyl and monitor clinical course closely daughter at the bedside questions were answered Dictation was produced using [employer] dictation software. please excuse any grammatical, word or spelling errors. Time with Patient: Less than 30
--- NOTE | 2023-12-25 11:15 | P.PN ---
Subjective Gross hematuria improved this morning, urine is blood-tinged Objective - Vital Signs Vital signs: Vital Signs Temp 97.5 F L 12/25/23 08:30 Pulse 55 L 12/25/23 08:30 Resp 18 12/25/23 08:30 BP 119/56 12/25/23 08:30 Pulse Ox 95 12/25/23 08:43 FiO2 Intake & Output 12/24/23 12/25/23 12/25/23 18:59 06:59 18:59 Intake Total 617 20 138 Output Total 450 800 Balance 167 -780 138 Weight 122.47 kg Intake: IV 20 20 20 Invasive Line 5 20 20 10 Invasive Line 6 10 Oral 597 118 Output: Urine 450 800 Other: Voiding Method Indwelling Catheter Indwelling Catheter Indwelling Catheter # Voids 1 # Bowel Movements 1 1 - Labs CBC & Chem 7: 12/23/23 07:53 12/23/23 07:53 Labs: Abnormal Lab Results - Last 24 Hours (Table) 12/24/23 Range/Units 12:30 PT 20.0 H (10.0-12.5) sec INR 2.0 H (<1.2) Microbiology - Last 24 Hours (Table) 12/23/23 07:53 Blood Culture - Preliminary Blood 12/21/23 11:45 Urine Culture - Final Urine,Voided Enterococcus faecalis 12/21/23 09:38 Blood Culture Gram Stain - Final Blood Blood Culture - Final Enterococcus faecalis Bacteroides fragilis Molecular ID 12/21/23 09:46 Blood Culture Gram Stain - Final Blood Blood Culture - Final Enterococcus faecalis Assessment and Plan Assessment: 83-year-old male status post cystoscopy left stent insertion by Dr. Edmondson on December 20 for a large left ureteral stone. On evaluation today his gross hematuria is improved compared to yesterday -Trial of void once patient is close to discharge -Will eventually require left-sided ureteroscopy with holmium laser to address his stone as an outpatient
[2023-12-25 12:00] LABS: INR 2.1 (<1.2); Prothrombin Time 21.1 sec (10.0-12.5)
[2023-12-25 12:34] LABS: Basophils % (A) 0 %; Eosinophils % (A) 0 %; HCT 31.7 % (39.0-53.0); HGB 9.8 gm/dL (13.0-17.5); Hypochromasia Slight; Lymphocytes # (A) 0.5 k/uL (1.0-4.8); Lymphocytes % (A) 3 %; MCH 27.8 pg (25.0-35.0); MCHC 30.9 g/dL (31.0-37.0); Mean Platelet Volume 9.5; Monocytes # (A) 0.9 k/uL (0-1.0); Monocytes % (A) 7 %; Neutrophils # (A) 12.5 k/uL (1.3-7.7); Neutrophils % (A) 89 %; Platelet Count 284 k/uL (150-450); RBC 3.53 m/uL (4.30-5.90); RDW 14.8 % (11.5-15.5); WBC 14.1 k/uL (3.8-10.6)
[2023-12-25 13:01] LABS: ALT 22 U/L (4-49); AST 24 U/L (17-59); African American GFR (CKD) >90 (>60 ml/min/1.73 sqM); Albumin 2.1 g/dL (3.5-5.0); Alkaline Phosphatase 67 U/L (38-126); Anion Gap 6 mmol/L; Blood Urea Nitrogen 17 mg/dL (9-20); Calcium 7.6 mg/dL (8.4-10.2); Carbon Dioxide 20 mmol/L (22-30); Chloride 114 mmol/L (98-107); Glucose 102 mg/dL (74-99); Non-African American GFR(CKD) 80 (>60 ml/min/1.73 sqM); Potassium 4.2 mmol/L (3.5-5.1); Sodium 140 mmol/L (137-145); Total Bilirubin 0.4 mg/dL (0.2-1.3); Total Protein 4.8 g/dL (6.3-8.2)
--- NOTE | 2023-12-25 13:56 | P.PN ---
Subjective Progress Note Date: 12/25/23 Principal diagnosis: Pneumonia. This is a 83-year-old male patient was at [facility] recovering from her recent hospitalization and the patient was noted to be more short of breath over the past 1 week and more weak to the point where he was not having the stamina or energy and participating with rehab. Based on that, he was transferred to the hospital and EMS at the time of arrival found the patient to be hypoxic, placed in on 100% nonrebreather facemask and currently the patient is on room air oxygen with a pulse ox of 96%. The patient was initially weaned down to 3 L mil[place] al cannula and currently is down to room air oxygen. I reviewed the chest x-ray from 7 admission and the patient has cardiomegaly and a stable left lower lobe atelectasis possibly a small effusion. Otherwise, no clear airspace disease or consolidations. The white cell count of admission was 33 dropped down to 24, hemoglobin of 12.2 and a platelet count is at 435. The patient's INR was at 5.2 as the patient was taken warfarin and repeat INR from today is at 4.4. The patient has normal electrolytes, creatinine is at 1.8 at the time of admission down to 1.77. He does seem to have a component of chronic kidney disease and his creatinine has been chronically elevated. Troponins were 0.060.05 and 0.03 respectively. COVID-19 testing was positive. The patient was tested +3 weeks ago when he went to [facility] this was reported to be his first COVID- 19 infection. As such, it is not a new onset infection and was diagnosed approximately 3 weeks ago. Noted the patient was in the hospital in October 2023 the patient was discharged home on 11/21/2023 after being treated for a obstr uctive uropathy and an acute on top of the cardiac kidney injury. The patient underwent a laser lithotripsy by urology on 11/19/2023. He was also treated for UTI. He has chronic A-fib, chronic stage IIIb chronic kidney disease, hypertension hyperlipidemia and is quite debilitated at this point and because of his overall generalized weakness he was transferred to [facility] on [facility] for further rehabilitation. The patient also had a repeat urinalysis has not been done. proBNP level was 6720. Echocardiogram done on 11/20/2023 showed impaired LV function with an ejection fraction of 35 to 40%, severely increased left ventricular systolic volume, moderate decrease in the LV global function, d ilatation of the right atrium and moderate RV dilatation with normal RV systolic pressure. Mild aortic regurgitation was present. Small to medium sized paracardial effusion was located posteriorly. The patient was given IV fluids. He was given a bolus of 1 L in the emergency department. Cardiology has been consulted. EKG is showing a paced rhythm as the patient has underlying sick sinus syndrome and has a permanent pacemaker in place. He also has paroxysmal atrial fibrillation,. He was given IV Rocephin and Zithromax in the emergency. Reevaluate today on 12/17/2023, patient continues to do well, he is on room air O2 sats of 92%, chest x-ray was reviewed, ultrasound was ordered, and there is not enough fluid in the left pleural space to consider thoracentesis for findings in the left retrocardiac area seems to be findings of atelectasis. Patient remains to be afebrile with a temp of 97 7, heart rate 64 blood pressure 124/58, and his pulse is 83 WBC count is improving down to 17.8 from 33.4 on admission his hemoglobin is 11.5. And basic metabolic profile is normal, renal profile is steadily improving with creatinine down to 1.22 from 1.83 on admission. Considering the patient is not requiring any oxygen, will go ahead and discontinue his Decadron. Patient was evaluated today on 12/18/2023, patient is laying in bed, not in distress, not on oxygen, feels good, no cough, no fever no chills, no chest pain, his INR is supra therapeutic, INR of 4.7, patient has Coumadin on hold presently. His CBC is relatively unremarkable hemoglobin is 11 WBC count is 11.9 basic metabolic profile is normal BUN is 39 creatinine 1.24 patient does have hematuria and most likely it is related to trauma from Aguilar catheter considering his elevated INR nonetheless may have to be addressed by urology Patient was reevaluated today on 12/19/23, patient is doing fairly well except for generalized weakness, continues to have some left-sided flank pain, INR this morning is 3.4, urine is still showing some blood, and I believe the admitting physician is initiating a urology consultation. Patient otherwise is weak, but no cough no fever no chills no hemoptysis chest x-ray continues to show left lower lobe atelectasis, went back to previous x-rays in 2020, patient always had a bit of atelectasis involving the left lower lobe. Would eventually recommend CT of the chest for further evaluation of the left lower lobe, clinically again I strongly doubt pneumonia WBC count today is 14.3 hemoglobin is 11.5 INR is 3.4 basic metabolic profile is normal creatinine is rising up to 1.49 today from 1.24 yesterday his urinalysis is clearly showing evidence of pyuria and hematuria. While as bacteriuria Reevaluated today on 12/20/2023, patient has multiple complaints including weakness, fatigue, ongoing left flank pain, patient is now on Unasyn for antibiotics. Ultrasound of abdomen and pelvis, showed lobulated renal contour with 2.5 cm hypoechoic area within the right kidney and there is evidence of moderate to severe hydronephrosis involving the left kidney appeared similar to CT noted on 11/18/2023. Renal calculi also noted. This is being addressed by urology on the case. Patient is still receiving treatment for Enterococcus group D urinary tract infection. Today I evaluated the patient, and I recommended a CT of the chest to further evaluate the chronic left lower lobe atelectasis. Specially with the patient being quite symptomatic Patient was reevaluated today on 12/21/2023, patient is basically about the same, continues to have multiple symptoms feels better that he is on oxygen today, he has no shortness of breath no cough no wheezing he had yesterday symptoms of weakness fatigue and ongoing left flank pain, CT of the abdomen pelvis showed left-sided hydronephrosis with nephrolithiasis, and the patient is undergoing cystoscopy and left ureteral stent insertion. In the meantime the patient remains on antibiotics for his UTI, and this is being addressed by infectious disease on the case. Patient has worsening leukocytosis today with WBC count of 28.3 hemoglobin 11 INR is 3.4 basic metabolic profile is normal bicarb is 18 BUN is 30 creatinine 1.38, Slightly worse compared to yesterday. Patient was today on 12/22/2023, patient is feeling better today, less flank pain, no shortness of breath, his weakness seems to be even improving, patient is improving clinically overall. His renal profile is improving today, patient remains on antibiotics for his enterococcal infection, and that being addressed by infectious disease on the case. Pulmonary middleton denies any cough no wheezing no shortness of breath no chest pain. Blood cultures came back positive for Enterococcus faecalis, and the patient is on Unasyn. Flagyl was added. WBC count is down to 22.6 from 28.3 yesterday hemoglobin is 9.6. INR is 3.0. BUN is 29 creatinine 1.16, significantly improved compared to admission creatinine Progress note dated December 23, 2023. The patient is seen today in room 368. He is currently on 2 L of oxygen. Saturations are 96%. The patient continues on Unasyn, and Flagyl, for group D Enterococcus infection. Other than being very weak, the patient really has no major complaints. He denies any significant shortness of breath. He is not coughing or producing any phlegm. He denies any chest pain or chest pressure. He also denies any GI issues at this time. Current laboratory data includes a white count of 17.4, down from 22.6, hemoglobin 9.3, hematocrit 30.5, and a platelet count of 303,000. PT is 23.1 with an INR of 2.3. Sodium 139, potas sium 4, chlorides 114, CO2 20, BUN 24, creatinine 1.13. Calcium is 7.3. Albumin is 2.2. Blood and urine specimens, show evidence of the Enterococcus, i.e. Enterococcus faecalis. Progress note dated December 24, 2023. 83-year-old male seen today in room 368. He is currently on oxygen at 2 L. He is receiving saline at 100 cc an hour. Saturations are excellent. The patient continues on antibiotics for group D Enterococcus infection. The patient feels like he is getting better, and albeit slowly. He denies any shortness of breath, cough, wheezing, chest tightness, or phlegm production. He also denies any chest pain or pressure. No new laboratory data today. Lab data from yesterday, has been evaluated. Blood and urine specimens show evidence of Enterococcus. The patient continues on Unasyn, and Flagyl. Progress note dated December 25, 2023. 83-year-old male seen today in room 368. The patient is currently on 2 L. The patient is currently not receiving any IV fluids. He continues on Unasyn, and Flagyl, for his enterococcal infection. He had Enterococcus both in the blood and urine. He is not having any issues or problems. He does feel weak. Current labs include a white count 14.1, hemoglobin 9.8, hematocrit 31.7, and platelet count 284,000. The patient's PTT was 21.1 with an INR of 2.1. Sodium 140, potassium 4.2, chlorides 114, CO2 20, BUN 17, and creatinine 0.87. Glucose is 102. Albumin is 2.1. Objective - Vital Signs Vital signs: Vital Signs Temp 97.5 F L 12/25/23 11:48 Pulse 48 L 12/25/23 11:48 Resp 18 12/25/23 11:48 BP 123/68 12/25/23 11:48 Pulse Ox 98 12/25/23 11:48 FiO2 Intake & Output 12/24/23 12/25/23 12/25/23 18:59 06:59 18:59 Intake Total 617 20 148 Output Total 450 800 350 Balance 167 -780 -202 Weight 122.47 kg Intake: IV 20 20 30 Invasive Line 5 20 20 10 Invasive Line 6 20 Oral 597 118 Output: Urine 450 800 350 Other: Voiding Method Indwelling Catheter Indwelling Catheter Indwelling Catheter # Voids 1 # Bowel Movements 1 1 - Exam No acute distress, oriented 3. The patient is currently on 2 L of oxygen. HEENT examination is grossly unremarkable. Mucous membranes are moist. No oral lesions. Neck supple. Full range of motion. No adenopathy thyromegaly or neck vein distention. Cardiovascular examination reveals regular rhythm rate. S1-S2 normal. No S3 or S4. No discernible murmur noted. Heart rate is 53 bpm. Lungs reveal clear breath sounds. Breath sounds are equal bilaterally. No adventitious lung sounds including wheezes rhonchi or crackles. Saturations are 98% on 2 L of oxygen. Abdomen soft bowel sounds are heard. No masses or tenderness. Extremities are intact. No cyanosis clubbing or edema. Skin is without rash or lesion. Neurologic examination is brief but nonfocal. - Labs CBC & Chem 7: 12/25/23 10:24 12/25/23 10:24 Labs: Abnormal Lab Results - Last 24 Hours (Table) 12/25/23 12/25/23 12/25/23 Range/Units 10:24 10:24 10:24 WBC 14.1 H (3.8-10.6) k/uL RBC 3.53 L (4.30-5.90) m/uL Hgb 9.8 L (13.0-17.5) gm/dL Hct 31.7 L (39.0-53.0) % MCHC 30.9 L (31.0-37.0) g/dL Neutrophils # 12.5 H (1.3-7.7) k/uL Lymphocytes # 0.5 L (1.0-4.8) k/uL PT 21.1 H (10.0-12.5) sec INR 2.1 H (<1.2) Chloride 114 H (98-107) mmol/L Carbon Dioxide 20 L (22-30) mmol/L Glucose 102 H (74-99) mg/dL Calcium 7.6 L (8.4-10.2) mg/dL Total Protein 4.8 L (6.3-8.2) g/dL Albumin 2.1 L (3.5-5.0) g/dL Microbiology - Last 24 Hours (Table) 12/23/23 07:53 Blood Culture - Preliminary Blood 12/21/23 11:45 Urine Culture - Final Urine,Voided Enterococcus faecalis 12/21/23 09:38 Blood Culture Gram Stain - Final Blood Blood Culture - Final Enterococcus faecalis Bacteroides fragilis Molecular ID 12/21/23 09:46 Blood Culture Gram Stain - Final Blood Blood Culture - Final Enterococcus faecalis Assessment and Plan Assessment: Group D Enterococcus urinary tract infection. Left-sided hydronephrosis, requiring cystoscopy, and stent placement, 12/21/2023. Bilateral lower lobe atelectasis. Chronic stage IIIb kidney disease. Paroxysmal atrial fibrillation. History of sick sinus syndrome. Chronic systolic CHF. Hypertension. History of prostate cancer, status post radiation treatment. General medical debility. Hematuria. Plan: Plan dated December 23, 2023. The patient is seen today in room 368. The patient is currently on 2 L of oxygen. Saturations are 96%. The patient continues on Unasyn, and Flagyl, as per infectious diseases. Cultures were positive for group D Enterococcus/Enterococcus faecalis. Labs, x-rays, medications are reviewed. The patient's overall prognosis remains guarded. His major complaint today is weakness and fatigue. We will continue to follow make recommendations along the way. Prognosis is certainly guarded. Care is primarily supportive. Plan dated December 24, 2023. The patient is again seen today in room 368. The patient's primary issue is weakness. The patient is currently on oxygen, at 2 L. He is receiving saline, 100 cc an hour. The patient is on both Unasyn, and Flagyl. Cultures were positive for group B Enterococcus. Labs, x-rays, medications are reviewed. Will continue to follow the patient, make recommendations. Prognosis is guarded. We encourage the patient to get out of bed. Plan dated December 23, 2023. The patient seems to be doing reasonably well. The patient continues on Unasyn and Flagyl, for his enterococcal infection, and the bloody urine. He is currently on 2 L. The patient's not receiving any IV fluids. Labs, x-rays, and medications are reviewed. The patient's primary complaint is weakness and fatigue. He is not having any shortness of breath, cough, wheezing, chest tightness, or phlegm production. We will continue to follow the patient, and make recommendations were appropriate. Prognosis is guarded. Time with Patient: Less than 30
[2023-12-25] MEDS: WARFARIN 2.5 MG TAB PO ONE (17:40)
[2023-12-26 07:02] LABS: Basophils % (A) 0 %; Eosinophils % (A) 0 %; HCT 28.8 % (39.0-53.0); HGB 8.9 gm/dL (13.0-17.5); Lymphocytes # (A) 0.5 k/uL (1.0-4.8); Lymphocytes % (A) 3 %; MCH 28.1 pg (25.0-35.0); MCV 90.5 fL (80.0-100.0); Mean Platelet Volume 7.9; Monocytes # (A) 0.9 k/uL (0-1.0); Monocytes % (A) 7 %; Neutrophils # (A) 12.2 k/uL (1.3-7.7); Neutrophils % (A) 89 %; Platelet Count 372 k/uL (150-450); RBC 3.18 m/uL (4.30-5.90); RDW 15.1 % (11.5-15.5); WBC 13.7 k/uL (3.8-10.6)
--- NOTE | 2023-12-26 07:09 | P.PN ---
Subjective Progress Note Date: 12/25/23 patient is a 83-year-old gentleman past medical history significant for atrial fibrillation, hypertension who is currently resident of a [facility] who presented to ER for evaluation for worsening shortness of breath. Patient stated that he has been feeling short of breath for the last 1 week. Shortness of breath is present on rest as well as exertion. Patient is complaining of productive cough. Denies any chest pain. There is no complaint of fever or chills. Patient denies any nausea or vomiting. There is no complaint of lightheaded dizziness. Because of worsening shortness of breath EMS was called who found him to be tachypneic and short of breath and placed him on nonrebreather and brought him to the ER Initial lab work done in the ER showed WBC 33.4, hemoglobin 12.2, platelet count 435, PT 51, INR 5.2, sodium 134, potassium 4.2, BUN 37, creatinine 1.83, calcium 7.9, troponin 0.062 Influenza A not detected Influenza B not detected RSV not detected COVID-19 detected EKG done in the ER showed heart rate of 75, ventricular paced rhythm, no ST segment elevation or depression seen, no T-wave inversions seen. Chest x-ray done in the ER showed cardiomegaly and left lower lobe infiltrate Patient admitted to internal medicine service 12/16. Patient seen and examined. Breathing is improved. Still complaining of cough. Denies any chest pain 12/17. Patient seen and examined. Currently not requiring any oxygen. States he feels much better. INR is still above 4 12/18. Patient seen and examined. Patient having dark-colored urine, has history of recent procedure by urology. Did complain of left-sided flank pain this morning. INR this morning is 3.4, hemoglobin is 11.5 12/19. Patient seen and examined. Patient is complaining of left flank pain. Antibiotics were changed to IV Unasyn per ID. 12/20. Patient seen and examined. Yesterday late in the afternoon, patient started having chills, lactate checked at that time was found to be elevated at 4.4. Patient was given fluid resuscitation per sepsis fluid bolus and blood culture ordered. CT abdominal pelvis done showed worsening hydronephrosis with moderate to severe left hydronephrosis from obstructing calculus in the pelvic brim measuring up to 14 x 8 mm. No evidence for airspace consolidation. 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 Currently patient is n.p.o., scheduled for cystoscopy 12/21. Patient seen and examined. Lab work done this morning showed WBC 22.3, hemoglobin 9.6, INR 3 sodium 140, potassium 4.1, BUN 29, creatinine 1.16. S/p cystoscopy with left ureteral stent placement 12/22. Patient seen and examined. Leukocytosis improving. Patient still complaining of generalized weakness 12/23. Patient seen and examined. Hematuria is improving, still has Aguilar in place. Denies abdominal pain. 12/25/2023 Patient is seen in follow-up today with multiple medical consultations following including urology continues with indwelling Aguilar catheter. Urine is more blood-tinged and hemoglobin is stable. Patient remains on antibiotics with infectious disease following. Will discuss further with consultations regarding discharge planning and patient will need rehab. Case management following as well. REVIEW OF SYSTEMS: CONSTITUTIONAL: No fever, no malaise,. CARDIOVASCULAR: No chest pain, no palpitations, no syncope. PULMONARY: As mentioned above GASTROINTESTINAL: No diarrhea, no nausea, no vomiting NEUROLOGICAL: No headaches, reports of weakness PHYSICAL EXAMINATION: GENERAL: The patient is alert and oriented x3, not in any acute distress. Well developed, well nourished. HEENT: Pupils are round and equally reacting to light. EOMI. No scleral icterus. No conjunctival pallor. Normocephalic, atraumatic. No pharyngeal erythema. No thyromegaly. CARDIOVASCULAR: S1 and S2 present. No murmurs, rubs, or gallops. PULMONARY: Diminished breath sounds bilaterally otherwise clear to auscultation, no wheezing, rhonchi noted. ABDOMEN: Soft, nontender, nondistended, normoactive bowel sounds. No palpable organomegaly. MUSCULOSKELETAL: No joint swelling or deformity. EXTREMITIES: No cyanosis, clubbing, or pedal edema. NEUROLOGICAL: Gross neurological examination did not reveal any focal deficits. Significant diffuse weakness SKIN: No rashes. Assessment and plan Sepsis with bacteremia secondary to urinary tract infection with Enterococcus Bacteremia secondary to urinary tract infection Acute hypoxic respiratory failure History of recent COVID-19 infection Supratherapeutic INR Elevated troponin Acute kidney injury Elevated troponins possibly due to acute kidney injury, COVID infection History of recent hydronephrosis status post cystoscopy on 11/18 Hypertension Hyperlipidemia Paroxysmal atrial fibrillation on Coumadin Coagulopathy secondary to Coumadin use and sepsis Sick sinus syndrome status post permanent pacemaker Mild chronic lower extremity edema Chronic diastolic heart failure, patient is currently euvolemic 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 Will discuss further regarding discharge planning PT/OT therapy to evaluate as patient will need rehab on discharge with case management following. Will discuss discharge planning with other consultations Patient with significant weakness recommend PT/OT therapy daily Continue indwelling Aguilar catheter. Patient will also need outpatient follow-up with urology regarding stents Follow-up on repeat labs in the a.m. Due to significant comorbidities, overall prognosis is guarded The impression and plan of care has been dictated by Eve Alexander, Nurse Practitioner as directed. MD Castro I have performed a history and examination and MDM of this patient, discussed the same with the dictator, and agree with the dictator's assessment and plan as written ,documented as a scribe. Based on total visit time, I have performed more than 50% of the visit. Objective - Vital Signs Vital signs: Vital Signs Temp 97.5 F L 12/25/23 08:30 Pulse 55 L 12/25/23 08:30 Resp 18 12/25/23 08:30 BP 119/56 12/25/23 08:30 Pulse Ox 95 12/25/23 08:43 FiO2 Intake & Output 12/24/23 12/25/23 12/25/23 18:59 06:59 18:59 Intake Total 617 20 128 Output Total 450 800 Balance 167 -780 128 Weight 122.47 kg Intake: IV 20 20 10 Invasive Line 5 20 20 10 Oral 597 118 Output: Urine 450 800 Other: Voiding Method Indwelling Catheter Indwelling Catheter # Voids 1 # Bowel Movements 1 1 - Labs CBC & Chem 7: 12/26/23 06:32 12/25/23 10:24 Labs: Abnormal Lab Results - Last 24 Hours (Table) 12/24/23 Range/Units 12:30 PT 20.0 H (10.0-12.5) sec INR 2.0 H (<1.2) Microbiology - Last 24 Hours (Table) 12/23/23 07:53 Blood Culture - Preliminary Blood 12/21/23 11:45 Urine Culture - Final Urine,Voided Enterococcus faecalis 12/21/23 09:38 Blood Culture Gram Stain - Final Blood Blood Culture - Final Enterococcus faecalis Bacteroides fragilis Molecular ID 12/21/23 09:46 Blood Culture Gram Stain - Final Blood Blood Culture - Final Enterococcus faecalis
[2023-12-26 07:10] LABS: INR 2.1 (<1.2); Prothrombin Time 20.8 sec (10.0-12.5)
[2023-12-26 07:34] LABS: African American GFR (CKD) >90 (>60 ml/min/1.73 sqM); Anion Gap 1 mmol/L; Blood Urea Nitrogen 15 mg/dL (9-20); Calcium 7.3 mg/dL (8.4-10.2); Carbon Dioxide 25 mmol/L (22-30); Chloride 112 mmol/L (98-107); Glucose 95 mg/dL (74-99); Non-African American GFR(CKD) 80 (>60 ml/min/1.73 sqM); Potassium 4.3 mmol/L (3.5-5.1); Sodium 138 mmol/L (137-145)
--- NOTE | 2023-12-26 12:04 | CDI ---
Documentation Clarification Form Date: 12/26/2023 01:12:00 PM From: Roxana Cevallos Phone: [phone] Admit Date: 12/15/2023 07:38:00 PM Patient Name: Santosh Melton Visit Number: [id number] Discharge Date: ATTENTION: The Clinical Documentation Specialists (CDI) and [facility] Coding Staff appreciate your assistance in clarifying documentation. Please respond to the clarification below the line at the bottom and electronically sign. The CDI & [facility] Coding staff will review the response and follow-up if needed. Please note: Queries are made part of the Legal Health Record. If you have any questions, please contact the author of this message via ITS. JODY Lazaro: Your patient has troponin level(s) of: 0.062, 0.054 on 12/14 and 0.038 on 12/15. Please clarify if there is an additional diagnosis and/or clinical significance related to this value. Patient history/risk factors: 83-year-old male with a history of AFib, CHF, HTN, CVA/TIA who presents with increased dyspnea, COVID 19 positive, elevated troponin Clinical indicators: 12/14 Triage VS: 136/62, 97.9, 83, 22, 98% 15 liters NRB 12/15 Cardiology consult, Assessment: "Elevated troponins possibly due to acute kidney injury, COVID infection" 12/16 Pulmonology consult, Assessment and Plan: "Elevated troponin, related to demand type of ischemia type II, EKG is nonspecific and shows a paced rhythm." 12/16 Cardiology Impression: "Borderline elevated troponins in the setting of acute kidney injury and infection." 12/14-12/17 BUN: 37, 41, 37, 39 Creatinine: 1.83, 1.77, 1.22, 1.24 12/14 SARS-CoV-2: Detected 12/13 EKG: Electronic ventricular pacemaker, abnormal rhythm EKG Treatment: Monitor troponin, EKG Consult Cardiology Continue home cardiac meds but hold amlodipine (5mg oral daily) due to hypotension and hold Lasix (40mg oral daily) due to acute kidney injury Atenolol 25mg oral BID start 12/16 Ceftriaxone 1gram IV Q24 hours start 12/15 Is there an additional diagnosis and/or clinical significance related to the above lab result/information: [x ] Type 2 SD due to (specify cause _AKI and Covid infection___) [ ] Non-ischemic with acute myocardial injury [ ] No additional diagnosis/Not clinically significant [ ] Other, please specify [ ] Unable to determine Reference: [place] Fourth [place] Definition of Myocardial Infraction Elevated Cardiac Troponin >99th percentile with Troponin rise and/or fall With Acute ischemia o Acute Myocardial Infarction ? Atherosclerosis thrombosis Type I SD ? Oxygen supply and demand imbalance Type II SD (Please indicate etiology) Without acute ischemia o Acute Myocardial Injury MTDD
--- NOTE | 2023-12-26 13:40 | P.PN ---
Subjective Progress Note Date: 12/26/23 Principal diagnosis: Pneumonia. This is a 83-year-old male patient was at [facility] recovering from her recent hospitalization and the patient was noted to be more short of breath over the past 1 week and more weak to the point where he was not having the stamina or energy and participating with rehab. Based on that, he was transferred to the hospital and EMS at the time of arrival found the patient to be hypoxic, placed in on 100% nonrebreather facemask and currently the patient is on room air oxygen with a pulse ox of 96%. The patient was initially weaned down to 3 L mil[place] al cannula and currently is down to room air oxygen. I reviewed the chest x-ray from 7 admission and the patient has cardiomegaly and a stable left lower lobe atelectasis possibly a small effusion. Otherwise, no clear airspace disease or consolidations. The white cell count of admission was 33 dropped down to 24, hemoglobin of 12.2 and a platelet count is at 435. The patient's INR was at 5.2 as the patient was taken warfarin and repeat INR from today is at 4.4. The patient has normal electrolytes, creatinine is at 1.8 at the time of admission down to 1.77. He does seem to have a component of chronic kidney disease and his creatinine has been chronically elevated. Troponins were 0.060.05 and 0.03 respectively. COVID-19 testing was positive. The patient was tested +3 weeks ago when he went to [facility] this was reported to be his first COVID- 19 infection. As such, it is not a new onset infection and was diagnosed approximately 3 weeks ago. Noted the patient was in the hospital in October 2023 the patient was discharged home on 11/21/2023 after being treated for a obstr uctive uropathy and an acute on top of the cardiac kidney injury. The patient underwent a laser lithotripsy by urology on 11/19/2023. He was also treated for UTI. He has chronic A-fib, chronic stage IIIb chronic kidney disease, hypertension hyperlipidemia and is quite debilitated at this point and because of his overall generalized weakness he was transferred to [facility] on [facility] for further rehabilitation. The patient also had a repeat urinalysis has not been done. proBNP level was 6720. Echocardiogram done on 11/20/2023 showed impaired LV function with an ejection fraction of 35 to 40%, severely increased left ventricular systolic volume, moderate decrease in the LV global function, d ilatation of the right atrium and moderate RV dilatation with normal RV systolic pressure. Mild aortic regurgitation was present. Small to medium sized paracardial effusion was located posteriorly. The patient was given IV fluids. He was given a bolus of 1 L in the emergency department. Cardiology has been consulted. EKG is showing a paced rhythm as the patient has underlying sick sinus syndrome and has a permanent pacemaker in place. He also has paroxysmal atrial fibrillation,. He was given IV Rocephin and Zithromax in the emergency. Reevaluate today on 12/17/2023, patient continues to do well, he is on room air O2 sats of 92%, chest x-ray was reviewed, ultrasound was ordered, and there is not enough fluid in the left pleural space to consider thoracentesis for findings in the left retrocardiac area seems to be findings of atelectasis. Patient remains to be afebrile with a temp of 97 7, heart rate 64 blood pressure 124/58, and his pulse is 83 WBC count is improving down to 17.8 from 33.4 on admission his hemoglobin is 11.5. And basic metabolic profile is normal, renal profile is steadily improving with creatinine down to 1.22 from 1.83 on admission. Considering the patient is not requiring any oxygen, will go ahead and discontinue his Decadron. Patient was evaluated today on 12/18/2023, patient is laying in bed, not in distress, not on oxygen, feels good, no cough, no fever no chills, no chest pain, his INR is supra therapeutic, INR of 4.7, patient has Coumadin on hold presently. His CBC is relatively unremarkable hemoglobin is 11 WBC count is 11.9 basic metabolic profile is normal BUN is 39 creatinine 1.24 patient does have hematuria and most likely it is related to trauma from Aguilar catheter considering his elevated INR nonetheless may have to be addressed by urology Patient was reevaluated today on 12/19/23, patient is doing fairly well except for generalized weakness, continues to have some left-sided flank pain, INR this morning is 3.4, urine is still showing some blood, and I believe the admitting physician is initiating a urology consultation. Patient otherwise is weak, but no cough no fever no chills no hemoptysis chest x-ray continues to show left lower lobe atelectasis, went back to previous x-rays in 2020, patient always had a bit of atelectasis involving the left lower lobe. Would eventually recommend CT of the chest for further evaluation of the left lower lobe, clinically again I strongly doubt pneumonia WBC count today is 14.3 hemoglobin is 11.5 INR is 3.4 basic metabolic profile is normal creatinine is rising up to 1.49 today from 1.24 yesterday his urinalysis is clearly showing evidence of pyuria and hematuria. While as bacteriuria Reevaluated today on 12/20/2023, patient has multiple complaints including weakness, fatigue, ongoing left flank pain, patient is now on Unasyn for antibiotics. Ultrasound of abdomen and pelvis, showed lobulated renal contour with 2.5 cm hypoechoic area within the right kidney and there is evidence of moderate to severe hydronephrosis involving the left kidney appeared similar to CT noted on 11/18/2023. Renal calculi also noted. This is being addressed by urology on the case. Patient is still receiving treatment for Enterococcus group D urinary tract infection. Today I evaluated the patient, and I recommended a CT of the chest to further evaluate the chronic left lower lobe atelectasis. Specially with the patient being quite symptomatic Patient was reevaluated today on 12/21/2023, patient is basically about the same, continues to have multiple symptoms feels better that he is on oxygen today, he has no shortness of breath no cough no wheezing he had yesterday symptoms of weakness fatigue and ongoing left flank pain, CT of the abdomen pelvis showed left-sided hydronephrosis with nephrolithiasis, and the patient is undergoing cystoscopy and left ureteral stent insertion. In the meantime the patient remains on antibiotics for his UTI, and this is being addressed by infectious disease on the case. Patient has worsening leukocytosis today with WBC count of 28.3 hemoglobin 11 INR is 3.4 basic metabolic profile is normal bicarb is 18 BUN is 30 creatinine 1.38, Slightly worse compared to yesterday. Patient was today on 12/22/2023, patient is feeling better today, less flank pain, no shortness of breath, his weakness seems to be even improving, patient is improving clinically overall. His renal profile is improving today, patient remains on antibiotics for his enterococcal infection, and that being addressed by infectious disease on the case. Pulmonary middleton denies any cough no wheezing no shortness of breath no chest pain. Blood cultures came back positive for Enterococcus faecalis, and the patient is on Unasyn. Flagyl was added. WBC count is down to 22.6 from 28.3 yesterday hemoglobin is 9.6. INR is 3.0. BUN is 29 creatinine 1.16, significantly improved compared to admission creatinine Progress note dated December 23, 2023. The patient is seen today in room 368. He is currently on 2 L of oxygen. Saturations are 96%. The patient continues on Unasyn, and Flagyl, for group D Enterococcus infection. Other than being very weak, the patient really has no major complaints. He denies any significant shortness of breath. He is not coughing or producing any phlegm. He denies any chest pain or chest pressure. He also denies any GI issues at this time. Current laboratory data includes a white count of 17.4, down from 22.6, hemoglobin 9.3, hematocrit 30.5, and a platelet count of 303,000. PT is 23.1 with an INR of 2.3. Sodium 139, potas sium 4, chlorides 114, CO2 20, BUN 24, creatinine 1.13. Calcium is 7.3. Albumin is 2.2. Blood and urine specimens, show evidence of the Enterococcus, i.e. Enterococcus faecalis. Progress note dated December 24, 2023. 83-year-old male seen today in room 368. He is currently on oxygen at 2 L. He is receiving saline at 100 cc an hour. Saturations are excellent. The patient continues on antibiotics for group D Enterococcus infection. The patient feels like he is getting better, and albeit slowly. He denies any shortness of breath, cough, wheezing, chest tightness, or phlegm production. He also denies any chest pain or pressure. No new laboratory data today. Lab data from yesterday, has been evaluated. Blood and urine specimens show evidence of Enterococcus. The patient continues on Unasyn, and Flagyl. Progress note dated December 25, 2023. 83-year-old male seen today in room 368. The patient is currently on 2 L. The patient is currently not receiving any IV fluids. He continues on Unasyn, and Flagyl, for his enterococcal infection. He had Enterococcus both in the blood and urine. He is not having any issues or problems. He does feel weak. Current labs include a white count 14.1, hemoglobin 9.8, hematocrit 31.7, and platelet count 284,000. The patient's PTT was 21.1 with an INR of 2.1. Sodium 140, potassium 4.2, chlorides 114, CO2 20, BUN 17, and creatinine 0.87. Glucose is 102. Albumin is 2.1. Progress note dated December 26, 2023. 83-year-old male seen today in room 368. He continues on oxygen at 2 L. He is not receiving any IV fluids. He also continues on Unasyn, and Flagyl, for his enterococcal infection. Enterococcus was noted both in the blood and urine. The patient complains of weakness. He is lying flat in bed, without any respiratory difficulty or distress. Current labs include a white count 13.7, hemoglobin 8.9, hematocrit 28.8, and a normal platelet count of 372,000. PT 20.8. INR 2.1. Sodium 138, potassium 4.3, chlorides 112, CO2 25, BUN 15, creatinine 0.88. Glucose is 95. Calcium is 7.3. Objective - Vital Signs Vital signs: Vital Signs Temp 97.2 F L 12/26/23 08:00 Pulse 56 L 12/26/23 12:00 Resp 18 12/26/23 12:00 BP 129/64 12/26/23 12:00 Pulse Ox 98 12/26/23 12:00 FiO2 Intake & Output 12/25/23 12/26/23 12/26/23 18:59 06:59 18:59 Intake Total 860 20 10 Output Total 900 575 Balance -40 -555 10 Intake: IV 30 20 10 Invasive Line 5 10 Invasive Line 6 20 20 10 Oral 830 Output: Urine 900 575 Other: Voiding Method Indwelling Catheter Indwelling Catheter Indwelling Catheter # Bowel Movements 3 1 1 - Exam No acute distress, oriented 3. The patient is currently on 2 L of oxygen. HEENT examination is grossly unremarkable. Mucous membranes are moist. No oral lesions. Neck supple. Full range of motion. No adenopathy thyromegaly or neck vein distention. Cardiovascular examination reveals regular rhythm rate. S1-S2 normal. No S3 or S4. No discernible murmur noted. Heart rate is 56 bpm. Lungs reveal clear breath sounds. Breath sounds are equal bilaterally. No adventitious lung sounds including wheezes rhonchi or crackles. Saturations are 98% on 2 L of oxygen. Abdomen soft bowel sounds are heard. No masses or tenderness. Extremities are intact. No cyanosis clubbing or edema. Skin is without rash or lesion. Neurologic examination is brief but nonfocal. - Labs CBC & Chem 7: 12/26/23 06:32 12/26/23 06:32 Labs: Abnormal Lab Results - Last 24 Hours (Table) 12/26/23 12/26/23 12/26/23 Range/Units 06:32 06:32 06:32 WBC 13.7 H (3.8-10.6) k/uL RBC 3.18 L (4.30-5.90) m/uL Hgb 8.9 L (13.0-17.5) gm/dL Hct 28.8 L (39.0-53.0) % Neutrophils # 12.2 H (1.3-7.7) k/uL Lymphocytes # 0.5 L (1.0-4.8) k/uL PT 20.8 H (10.0-12.5) sec INR 2.1 H (<1.2) Chloride 112 H (98-107) mmol/L Calcium 7.3 L (8.4-10.2) mg/dL Microbiology - Last 24 Hours (Table) 12/23/23 07:53 Blood Culture - Preliminary Blood Assessment and Plan Assessment: Group D Enterococcus bacteremia/urinary tract infection. Left-sided hydronephrosis, requiring cystoscopy, and stent placement, 12/21/2023. Bilateral lower lobe atelectasis. Chronic stage IIIb kidney disease. Paroxysmal atrial fibrillation. History of sick sinus syndrome. Chronic systolic CHF. Hypertension. History of prostate cancer, status post radiation treatment. General medical debility. Hematuria. Plan: Plan dated December 23, 2023. The patient is seen today in room 368. The patient is currently on 2 L of oxygen. Saturations are 96%. The patient continues on Unasyn, and Flagyl, as per infectious diseases. Cultures were positive for group D Enterococcus/Enterococcus faecalis. Labs, x-rays, medications are reviewed. The patient's overall prognosis remains guarded. His major complaint today is weakness and fatigue. We will continue to follow make recommendations along the way. Prognosis is certainly guarded. Care is primarily supportive. Plan dated December 24, 2023. The patient is again seen today in room 368. The patient's primary issue is weakness. The patient is currently on oxygen, at 2 L. He is receiving saline, 100 cc an hour. The patient is on both Unasyn, and Flagyl. Cultures were positive for group B Enterococcus. Labs, x-rays, medications are reviewed. Will continue to follow the patient, make recommendations. Prognosis is guar ded. We encourage the patient to get out of bed. Plan dated December 25, 2023. The patient seems to be doing reasonably well. The patient continues on Unasyn and Flagyl, for his enterococcal infection, and the bloody urine. He is currently on 2 L. The patient's not receiving any IV fluids. Labs, x-rays, and medications are reviewed. The patient's primary complaint is weakness and fatigue. He is not having any shortness of breath, cough, wheezing, chest tightness, or phlegm production. We will continue to follow the patient, and make recommendations were appropriate. Prognosis is guarded. Plan dated December 26, 2023. The patient continues to be relatively stable. He continues on oxygen at 2 L. He is not receiving any IV fluids. The patient is receiving both Unasyn and Flagyl, per infectious diseases, for his enterococcal infection. Enterococcus was noted in the blood and urine. Labs, x-rays, and medications are reviewed. We will continue to follow the patient. His respiratory status is stable. Prognosis is guarded. His biggest complaint is weakness. Time with Patient: Less than 30
--- NOTE | 2023-12-26 16:18 | P.PN ---
Subjective Progress Note Date: 12/25/23 Principal diagnosis: Reason for follow-up visit Enterococcus urinary tract infection and leukocytosis Patient is a 83-year-old male past medical history significant for hypertension hyperlipidemia atrial fibrillation heart failure prostate cancer presenting to the hospital for evaluation of increasing shortness of breath weakness did have elevated white count positive UA with urine showing Enterococcus prompting this consultation.Patient is status post cystoscopy and left ureteral stent insertion procedure completed 12/21/2023. On today's evaluation that is 12/25/2023, the patient continues to be afebrile, the patient is on 2 L nasal oxygen and breathing comfortably, the Pt denies having any chest pain or worsening cough, the patient denies having any abdominal pain no vomiting or any diarrhea has been reported by the nursing staff. Patient white count is down to 14.1 and creatinine 0.87 Objective - Vital Signs Vital signs: Vital Signs Temp 97.5 F L 12/25/23 11:48 Pulse 48 L 12/25/23 11:48 Resp 18 12/25/23 11:48 BP 123/68 12/25/23 11:48 Pulse Ox 98 12/25/23 11:48 FiO2 Intake & Output 12/24/23 12/25/23 12/25/23 18:59 06:59 18:59 Intake Total 617 20 504 Output Total 450 800 350 Balance 167 -780 154 Weight 122.47 kg Intake: IV 20 20 30 Invasive Line 5 20 20 10 Invasive Line 6 20 Oral 597 474 Output: Urine 450 800 350 Other: Voiding Method Indwelling Catheter Indwelling Catheter Indwelling Catheter # Voids 1 # Bowel Movements 1 1 - Exam GENERAL DESCRIPTION: An elderly male lying in bed in no distress RESPIRATORY SYSTEM: Unlabored breathing , decreased breath sounds at bases HEART: S1 S2 regular rate and rhythm , ABDOMEN: Soft , no tenderness EXTREMITIES: No edema feet - Labs CBC & Chem 7: 12/26/23 06:32 12/26/23 06:32 Labs: Abnormal Lab Results - Last 24 Hours (Table) 12/25/23 12/25/23 12/25/23 Range/Units 10:24 10:24 10:24 WBC 14.1 H (3.8-10.6) k/uL RBC 3.53 L (4.30-5.90) m/uL Hgb 9.8 L (13.0-17.5) gm/dL Hct 31.7 L (39.0-53.0) % MCHC 30.9 L (31.0-37.0) g/dL Neutrophils # 12.5 H (1.3-7.7) k/uL Lymphocytes # 0.5 L (1.0-4.8) k/uL PT 21.1 H (10.0-12.5) sec INR 2.1 H (<1.2) Chloride 114 H (98-107) mmol/L Carbon Dioxide 20 L (22-30) mmol/L Glucose 102 H (74-99) mg/dL Calcium 7.6 L (8.4-10.2) mg/dL Total Protein 4.8 L (6.3-8.2) g/dL Albumin 2.1 L (3.5-5.0) g/dL Microbiology - Last 24 Hours (Table) 12/23/23 07:53 Blood Culture - Preliminary Blood 12/21/23 11:45 Urine Culture - Final Urine,Voided Enterococcus faecalis 12/21/23 09:38 Blood Culture Gram Stain - Final Blood Blood Culture - Final Enterococcus faecalis Bacteroides fragilis Molecular ID 12/21/23 09:46 Blood Culture Gram Stain - Final Blood Blood Culture - Final Enterococcus faecalis Assessment and Plan (1) Enterococcus UTI Current Visit: Yes Status: Acute Code(s): N39.0 - URINARY TRACT INFECTION, SITE NOT SPECIFIED; B95.2 - ENTEROCOCCUS THE CAUSE OF DISEASES CLASSIFIED ELSEWHERE SNOMED Code(s): 229680616961193 (2) Leukocytosis Current Visit: Yes Status: Acute Code(s): D72.829 - ELEVATED WHITE BLOOD CELL COUNT, UNSPECIFIED SNOMED Code(s): 510732349 (3) Bacteremia Current Visit: Yes Status: Acute Code(s): R78.81 - BACTEREMIA SNOMED Code(s): 5101382 Plan: 1patient with a symptom of weakness which is multifactorial he did have a positive UA some urinary symptoms concerning for symptomatic bladder infection with elevated white count and urine is growing Enterococcus 2--patient urine has been finalized Enterococcus faecalis that is penicillin sensitive, patient blood cultures are growing Enterococcus faecalis as well as bacteroids species 3-patient did have CT abdominal pelvis did shows marked left-sided hydronephrosis and diverticulosis but no diverticulitis and no mention of any abscess or colitis 4the patient white count is trending down, repeat blood culture has been negative so far 5-patient to continue with Unasyn and Flagyl and continue with supportive care Dictation was produced using [employer] dictation software. please excuse any grammatical, word or spelling errors. Time with Patient: Less than 30
--- NOTE | 2023-12-26 16:19 | P.PN ---
Subjective Progress Note Date: 12/26/23 Principal diagnosis: Reason for follow-up visit Enterococcus urinary tract infection and leukocytosis Patient is a 83-year-old male past medical history significant for hypertension hyperlipidemia atrial fibrillation heart failure prostate cancer presenting to the hospital for evaluation of increasing shortness of breath weakness did have elevated white count positive UA with urine showing Enterococcus prompting this consultation.Patient is status post cystoscopy and left ureteral stent insertion procedure completed 12/21/2023. On today's evaluation that is 12/26/2023, Patient is afebrile patient is currently on room air and denies having any shortness of breath, the patient denies any chest pain or cough, the patient denies any nausea vomiting did not have any abdominal pain however the patient complaining of multiple loose stools today. Patient white count is 13.7, creatinine 0.88 blood culture repeat so far negative Objective - Vital Signs Vital signs: Vital Signs Temp 97.2 F L 12/26/23 08:00 Pulse 60 12/26/23 08:00 Resp 18 12/26/23 08:00 BP 99/54 12/26/23 08:00 Pulse Ox 97 12/26/23 08:00 FiO2 Intake & Output 12/25/23 12/26/23 12/26/23 18:59 06:59 18:59 Intake Total 860 20 10 Output Total 900 575 Balance -40 -555 10 Intake: IV 30 20 10 Invasive Line 5 10 Invasive Line 6 20 20 10 Oral 830 Output: Urine 900 575 Other: Voiding Method Indwelling Catheter Indwelling Catheter Indwelling Catheter # Bowel Movements 3 1 1 - Exam GENERAL DESCRIPTION: An elderly male lying in bed in no distress RESPIRATORY SYSTEM: Unlabored breathing , decreased breath sounds at bases HEART: S1 S2 regular rate and rhythm , ABDOMEN: Soft , no tenderness EXTREMITIES: No edema feet - Labs CBC & Chem 7: 12/26/23 06:32 12/26/23 06:32 Labs: Abnormal Lab Results - Last 24 Hours (Table) 12/26/23 12/26/23 12/26/23 Range/Units 06:32 06:32 06:32 WBC 13.7 H (3.8-10.6) k/uL RBC 3.18 L (4.30-5.90) m/uL Hgb 8.9 L (13.0-17.5) gm/dL Hct 28.8 L (39.0-53.0) % Neutrophils # 12.2 H (1.3-7.7) k/uL Lymphocytes # 0.5 L (1.0-4.8) k/uL PT 20.8 H (10.0-12.5) sec INR 2.1 H (<1.2) Chloride 112 H (98-107) mmol/L Calcium 7.3 L (8.4-10.2) mg/dL Microbiology - Last 24 Hours (Table) 12/23/23 07:53 Blood Culture - Preliminary Blood Assessment and Plan (1) Enterococcus UTI Current Visit: Yes Status: Acute Code(s): N39.0 - URINARY TRACT INFECTION, SITE NOT SPECIFIED; B95.2 - ENTEROCOCCUS THE CAUSE OF DISEASES CLASSIFIED ELSEWHERE SNOMED Code(s): 389739722461179 (2) Leukocytosis Current Visit: Yes Status: Acute Code(s): D72.829 - ELEVATED WHITE BLOOD CELL COUNT, UNSPECIFIED SNOMED Code(s): 748655844 (3) Bacteremia Current Visit: Yes Status: Acute Code(s): R78.81 - BACTEREMIA SNOMED Code(s): 7230143 Plan: 1patient with a symptom of weakness which is multifactorial he did have a positive UA some urinary symptoms concerning for symptomatic bladder infection with elevated white count and urine is growing Enterococcus 2--patient urine has been finalized Enterococcus faecalis that is penicillin sensitive, patient blood cultures are growing Enterococcus faecalis as well as bacteroids species 3-patient did have CT abdominal pelvis did shows marked left-sided hydronephrosis and diverticulosis but no diverticulitis and no mention of any abscess or colitis 4the patient white count is trending down, repeat blood culture has been negative so far 5-patient to continue with Unasyn and Flagyl, has been complaining of significant diarrhea we will add Questran for symptomatic relief encouraged to increase his probiotic and yogurt intake Dictation was produced using [employer] software. please excuse any grammatical, word or spelling errors. Time with Patient: Less than 30
[2023-12-26] MEDS: WARFARIN 2.5 MG TAB PO ONE (17:09)
[2023-12-26] MEDS: CHOLESTYRAMINE (WITH SUGAR) 4 GM PACKET PO SCH (17:10)
[2023-12-26 20:29] VITALS: RESP 18
--- NOTE | 2023-12-26 20:53 | P.PN ---
Subjective Progress Note Date: 12/26/23 patient is a 83-year-old gentleman past medical history significant for atrial fibrillation, hypertension who is [facility] who presented to ER for evaluation for worsening shortness of breath. Patient stated that he has been feeling short of breath for the last 1 week. Shortness of breath is present on rest as well as exertion. Patient is complaining of productive cough. Denies any chest pain. There is no complaint of fever or chills. Patient denies any nausea or vomiting. There is no complaint of lightheaded dizziness. Because of worsening shortness of breath EMS was called who found him to be tachypneic and short of breath and placed him on nonrebreather and brought him to the ER Initial lab work done in the ER showed WBC 33.4, hemoglobin 12.2, platelet count 435, PT 51, INR 5.2, sodium 134, potassium 4.2, BUN 37, creatinine 1.83, calcium 7.9, troponin 0.062 Influenza A not detected Influenza B not detected RSV not detected COVID-19 detected EKG done in the ER showed heart rate of 75, ventricular paced rhythm, no ST segment elevation or depression seen, no T-wave inversions seen. Chest x-ray done in the ER showed cardiomegaly and left lower lobe infiltrate Patient admitted to internal medicine service 12/16. Patient seen and examined. Breathing is improved. Still complaining of cough. Denies any chest pain 12/17. Patient seen and examined. Currently not requiring any oxygen. States he feels much better. INR is still above 4 12/18. Patient seen and examined. Patient having dark-colored urine, has history of recent procedure by urology. Did complain of left-sided flank pain this morning. INR this morning is 3.4, hemoglobin is 11.5 12/19. Patient seen and examined. Patient is complaining of left flank pain. Antibiotics were changed to IV Unasyn per ID. 12/20. Patient seen and examined. Yesterday late in the afternoon, patient started having chills, lactate checked at that time was found to be elevated at 4.4. Patient was given fluid resuscitation per sepsis fluid bolus and blood culture ordered. CT abdominal pelvis done showed worsening hydronephrosis with moderate to severe left hydronephrosis from obstructing calculus in the pelvic brim measuring up to 14 x 8 mm. No evidence for airspace consolidation. 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 Currently patient is n.p.o., scheduled for cystoscopy 12/21. Patient seen and examined. Lab work done this morning showed WBC 22.3, hemoglobin 9.6, INR 3 sodium 140, potassium 4.1, BUN 29, creatinine 1.16. S/p cystoscopy with left ureteral stent placement 12/22. Patient seen and examined. Leukocytosis improving. Patient still complaining of generalized weakness 12/23. Patient seen and examined. Hematuria is improving, still has Aguilar in place. Denies abdominal pain. 12/25/2023 Patient is seen in follow-up today with multiple medical consultations following including urology continues with indwelling Aguilar catheter. Urine is more blood-tinged and hemoglobin is stable. Patient remains on antibiotics with infectious disease following. Will discuss further with consultations regarding discharge planning and patient will need rehab. Case management following as well. 12/26/2023 Patient is seen in follow-up today continues with indwelling Aguilar catheter with urology following. Urine somewhat concentrated and blood-tinged although improved from yesterday. Hemoglobin is stable at this time. Some of the urine in the tubing in the a.m. had appeared to be somewhat clearing although later e valuated in the afternoon noted purulent urine. Indwelling Aguilar catheter was placed during surgery earlier this week and will continue. Discussed with nursing staff about irrigating the Aguilar and monitoring for any worsening hematuria. Strongly recommend continuing with indwelling Aguilar catheter on discharge as patient has been having difficulties with retention and bacteria. Blood cultures thus far negative. Will discuss with infectious disease regarding discharge antibiotic medications. REVIEW OF SYSTEMS: CONSTITUTIONAL: No fever, no malaise,. CARDIOVASCULAR: No chest pain, no palpitations, no syncope. PULMONARY: As mentioned above GASTROINTESTINAL: No diarrhea, no nausea, no vomiting NEUROLOGICAL: No headaches, reports of weakness PHYSICAL EXAMINATION: GENERAL: The patient is alert and oriented x3, not in any acute distress. Well developed, well nourished. Elderly appearing, obese HEENT: Pupils are round and equally reacting to light. EOMI. No scleral icterus. No conjunctival pallor. Normocephalic, atraumatic. No pharyngeal erythema. No thyromegaly. CARDIOVASCULAR: S1 and S2 present. No murmurs, rubs, or gallops. PULMONARY: Diminished breath sounds bilaterally otherwise clear to auscultation, no wheezing, rhonchi noted. ABDOMEN: Soft, nontender, nondistended, normoactive bowel sounds. No palpable organomegaly. MUSCULOSKELETAL: No joint swelling or deformity. EXTREMITIES: No cyanosis, clubbing, or pedal edema. NEUROLOGICAL: Gross neurological examination did not reveal any focal deficits. Significant diffuse weakness SKIN: No rashes. Pale stage II pressure injury noted to bilateral buttocks with some mild excoriation noted Assessment: Sepsis with bacteremia secondary to urinary tract infection with Enterococcus Bacteremia secondary to urinary tract infection Acute hypoxic respiratory failure History of recent COVID-19 infection Supratherapeutic INR elevated troponins possibly due to acute kidney injury, COVID infection History of recent hydronephrosis status post cystoscopy on 11/18 Hypertension Hyperlipidemia Paroxysmal atrial fibrillation on Coumadin Coagulopathy secondary to Coumadin use and sepsis Sick sinus syndrome status post permanent pacemaker Stage II pressure injury to the coccyx and bilateral buttock, present on admission Mild chronic lower extremity edema Chronic diastolic heart failure, patient is currently euvolemic Valvular heart disease with moderate aortic regurgitation and moderate mitral regurgitation Obesity with a BMI of 36.6 GI prophylaxis DVT prophylaxis Full code Plan: Continue with current medication regimen including IV antibiotics with infectious disease following. Will discuss further regarding discharge planning if patient will require IV antibiotics or oral. Most recent blood cultures are negative PT/OT therapy to evaluate as patient will need rehab on discharge with case management following. Will discuss discharge planning with other consultations Patient with significant weakness recommend PT/OT therapy daily Patient with some noted excoriation on the buttock area and had pressure injuries while at [facility] and being managed by [facility]. Upon evaluation there is stage II pressure injury of coccyx area and bilateral buttock area in that region and recommend to continue with frequent position changes every 2 hours with offloading that area, continued barrier paste of the excoriated area and OPTi foam. Continue indwelling Aguilar catheter. There is continued noted hematuria although improving and later evaluated with noted purulence in the tubing. Discussed with nursing staff about interrogating the Aguilar. Patient will also need outpatient follow-up with urology regarding stents Follow-up on repeat labs in the a.m. monitor white count, currently trending down and patient remains afebrile Due to significant comorbidities, overall prognosis is guarded Plan is to return to [facility] on the diallo. Will discuss with consultations regarding discharge planning. The impression and plan of care has been dictated by Eve Alexander, Nurse Practitioner as directed. MD Castro I have performed a history and examination and MDM of this patient, discussed the same with the dictator, and agree with the dictator's assessment and plan as written ,documented as a scribe. Based on total visit time, I have performed more than 50% of the visit. Objective - Vital Signs Vital signs: Vital Signs Temp 97.2 F L 12/26/23 08:00 Pulse 60 12/26/23 08:00 Resp 18 12/26/23 08:00 BP 99/54 12/26/23 08:00 Pulse Ox 97 12/26/23 08:00 FiO2 Intake & Output 12/25/23 12/26/23 12/26/23 18:59 06:59 18:59 Intake Total 860 20 10 Output Total 900 575 Balance -40 -555 10 Intake: IV 30 20 10 Invasive Line 5 10 Invasive Line 6 20 20 10 Oral 830 Output: Urine 900 575 Other: Voiding Method Indwelling Catheter Indwelling Catheter Indwelling Catheter # Bowel Movements 3 1 1 - Labs CBC & Chem 7: 12/26/23 06:32 12/26/23 06:32 Labs: Abnormal Lab Results - Last 24 Hours (Table) 12/25/23 12/25/23 12/26/23 Range/Units 10:24 10:24 06:32 WBC 14.1 H 13.7 H (3.8-10.6) k/uL RBC 3.53 L 3.18 L (4.30-5.90) m/uL Hgb 9.8 L 8.9 L (13.0-17.5) gm/dL Hct 31.7 L 28.8 L (39.0-53.0) % MCHC 30.9 L (31.0-37.0) g/dL Neutrophils # 12.5 H 12.2 H (1.3-7.7) k/uL Lymphocytes # 0.5 L 0.5 L (1.0-4.8) k/uL PT (10.0-12.5) sec INR (<1.2) Chloride 114 H (98-107) mmol/L Carbon Dioxide 20 L (22-30) mmol/L Glucose 102 H (74-99) mg/dL Calcium 7.6 L (8.4-10.2) mg/dL Total Protein 4.8 L (6.3-8.2) g/dL Albumin 2.1 L (3.5-5.0) g/dL 12/26/23 12/26/23 Range/Units 06:32 06:32 WBC (3.8-10.6) k/uL RBC (4.30-5.90) m/uL Hgb (13.0-17.5) gm/dL Hct (39.0-53.0) % MCHC (31.0-37.0) g/dL Neutrophils # (1.3-7.7) k/uL Lymphocytes # (1.0-4.8) k/uL PT 20.8 H (10.0-12.5) sec INR 2.1 H (<1.2) Chloride 112 H (98-107) mmol/L Carbon Dioxide (22-30) mmol/L Glucose (74-99) mg/dL Calcium 7.3 L (8.4-10.2) mg/dL Total Protein (6.3-8.2) g/dL Albumin (3.5-5.0) g/dL Microbiology - Last 24 Hours (Table) 12/23/23 07:53 Blood Culture - Preliminary Blood
[2023-12-27 12:19] LABS: Basophils % (A) 0 %; Eosinophils % (A) 0 %; HCT 28.2 % (39.0-53.0); HGB 8.8 gm/dL (13.0-17.5); Hypochromasia Moderate; Lymphocytes # (A) 0.4 k/uL (1.0-4.8); Lymphocytes % (A) 4 %; MCH 28.8 pg (25.0-35.0); MCHC 31.2 g/dL (31.0-37.0); MCV 92.4 fL (80.0-100.0); Mean Platelet Volume 8.2; Monocytes % (A) 8 %; Neutrophils # (A) 10.6 k/uL (1.3-7.7); Neutrophils % (A) 87 %; Platelet Count 375 k/uL (150-450); RBC 3.05 m/uL (4.30-5.90); RDW 15.4 % (11.5-15.5); WBC 12.2 k/uL (3.8-10.6)
[2023-12-27 12:22] LABS: INR 2.6 (<1.2); Prothrombin Time 25.4 sec (10.0-12.5)
[2023-12-27 12:56] VITALS: TEMP 98
--- NOTE | 2023-12-27 13:36 | P.PN ---
Subjective Progress Note Date: 12/27/23 Principal diagnosis: Pneumonia. This is a 83-year-old male patient was at [facility] recovering from her recent hospitalization and the patient was noted to be more short of breath over the past 1 week and more weak to the point where he was not having the stamina or energy and participating with rehab. Based on that, he was transferred to the hospital and EMS at the time of arrival found the patient to be hypoxic, placed in on 100% nonrebreather facemask and currently the patient is on room air oxygen with a pulse ox of 96%. The patient was initially weaned down to 3 L mil[place] al cannula and currently is down to room air oxygen. I reviewed the chest x-ray from 7 admission and the patient has cardiomegaly and a stable left lower lobe atelectasis possibly a small effusion. Otherwise, no clear airspace disease or consolidations. The white cell count of admission was 33 dropped down to 24, hemoglobin of 12.2 and a platelet count is at 435. The patient's INR was at 5.2 as the patient was taken warfarin and repeat INR from today is at 4.4. The patient has normal electrolytes, creatinine is at 1.8 at the time of admission down to 1.77. He does seem to have a component of chronic kidney disease and his creatinine has been chronically elevated. Troponins were 0.060.05 and 0.03 respectively. COVID-19 testing was positive. The patient was tested +3 weeks ago when he went to [facility] this was reported to be his first COVID- 19 infection. As such, it is not a new onset infection and was diagnosed approximately 3 weeks ago. Noted the patient was in the hospital in October 2023 the patient was discharged home on 11/21/2023 after being treated for a obstr uctive uropathy and an acute on top of the cardiac kidney injury. The patient underwent a laser lithotripsy by urology on 11/19/2023. He was also treated for UTI. He has chronic A-fib, chronic stage IIIb chronic kidney disease, hypertension hyperlipidemia and is quite debilitated at this point and because of his overall generalized weakness he was transferred to [facility] on [facility] for further rehabilitation. The patient also had a repeat urinalysis has not been done. proBNP level was 6720. Echocardiogram done on 11/20/2023 showed impaired LV function with an ejection fraction of 35 to 40%, severely increased left ventricular systolic volume, moderate decrease in the LV global function, d ilatation of the right atrium and moderate RV dilatation with normal RV systolic pressure. Mild aortic regurgitation was present. Small to medium sized paracardial effusion was located posteriorly. The patient was given IV fluids. He was given a bolus of 1 L in the emergency department. Cardiology has been consulted. EKG is showing a paced rhythm as the patient has underlying sick sinus syndrome and has a permanent pacemaker in place. He also has paroxysmal atrial fibrillation,. He was given IV Rocephin and Zithromax in the emergency. Reevaluate today on 12/17/2023, patient continues to do well, he is on room air O2 sats of 92%, chest x-ray was reviewed, ultrasound was ordered, and there is not enough fluid in the left pleural space to consider thoracentesis for findings in the left retrocardiac area seems to be findings of atelectasis. Patient remains to be afebrile with a temp of 97 7, heart rate 64 blood pressure 124/58, and his pulse is 83 WBC count is improving down to 17.8 from 33.4 on admission his hemoglobin is 11.5. And basic metabolic profile is normal, renal profile is steadily improving with creatinine down to 1.22 from 1.83 on admission. Considering the patient is not requiring any oxygen, will go ahead and discontinue his Decadron. Patient was evaluated today on 12/18/2023, patient is laying in bed, not in distress, not on oxygen, feels good, no cough, no fever no chills, no chest pain, his INR is supra therapeutic, INR of 4.7, patient has Coumadin on hold presently. His CBC is relatively unremarkable hemoglobin is 11 WBC count is 11.9 basic metabolic profile is normal BUN is 39 creatinine 1.24 patient does have hematuria and most likely it is related to trauma from Aguilar catheter considering his elevated INR nonetheless may have to be addressed by urology Patient was reevaluated today on 12/19/23, patient is doing fairly well except for generalized weakness, continues to have some left-sided flank pain, INR this morning is 3.4, urine is still showing some blood, and I believe the admitting physician is initiating a urology consultation. Patient otherwise is weak, but no cough no fever no chills no hemoptysis chest x-ray continues to show left lower lobe atelectasis, went back to previous x-rays in 2020, patient always had a bit of atelectasis involving the left lower lobe. Would eventually recommend CT of the chest for further evaluation of the left lower lobe, clinically again I strongly doubt pneumonia WBC count today is 14.3 hemoglobin is 11.5 INR is 3.4 basic metabolic profile is normal creatinine is rising up to 1.49 today from 1.24 yesterday his urinalysis is clearly showing evidence of pyuria and hematuria. While as bacteriuria Reevaluated today on 12/20/2023, patient has multiple complaints including weakness, fatigue, ongoing left flank pain, patient is now on Unasyn for antibiotics. Ultrasound of abdomen and pelvis, showed lobulated renal contour with 2.5 cm hypoechoic area within the right kidney and there is evidence of moderate to severe hydronephrosis involving the left kidney appeared similar to CT noted on 11/18/2023. Renal calculi also noted. This is being addressed by urology on the case. Patient is still receiving treatment for Enterococcus group D urinary tract infection. Today I evaluated the patient, and I recommended a CT of the chest to further evaluate the chronic left lower lobe atelectasis. Specially with the patient being quite symptomatic Patient was reevaluated today on 12/21/2023, patient is basically about the same, continues to have multiple symptoms feels better that he is on oxygen today, he has no shortness of breath no cough no wheezing he had yesterday symptoms of weakness fatigue and ongoing left flank pain, CT of the abdomen pelvis showed left-sided hydronephrosis with nephrolithiasis, and the patient is undergoing cystoscopy and left ureteral stent insertion. In the meantime the patient remains on antibiotics for his UTI, and this is being addressed by infectious disease on the case. Patient has worsening leukocytosis today with WBC count of 28.3 hemoglobin 11 INR is 3.4 basic metabolic profile is normal bicarb is 18 BUN is 30 creatinine 1.38, Slightly worse compared to yesterday. Patient was today on 12/22/2023, patient is feeling better today, less flank pain, no shortness of breath, his weakness seems to be even improving, patient is improving clinically overall. His renal profile is improving today, patient remains on antibiotics for his enterococcal infection, and that being addressed by infectious disease on the case. Pulmonary middleton denies any cough no wheezing no shortness of breath no chest pain. Blood cultures came back positive for Enterococcus faecalis, and the patient is on Unasyn. Flagyl was added. WBC count is down to 22.6 from 28.3 yesterday hemoglobin is 9.6. INR is 3.0. BUN is 29 creatinine 1.16, significantly improved compared to admission creatinine Progress note dated December 23, 2023. The patient is seen today in room 368. He is currently on 2 L of oxygen. Saturations are 96%. The patient continues on Unasyn, and Flagyl, for group D Enterococcus infection. Other than being very weak, the patient really has no major complaints. He denies any significant shortness of breath. He is not coughing or producing any phlegm. He denies any chest pain or chest pressure. He also denies any GI issues at this time. Current laboratory data includes a white count of 17.4, down from 22.6, hemoglobin 9.3, hematocrit 30.5, and a platelet count of 303,000. PT is 23.1 with an INR of 2.3. Sodium 139, potas sium 4, chlorides 114, CO2 20, BUN 24, creatinine 1.13. Calcium is 7.3. Albumin is 2.2. Blood and urine specimens, show evidence of the Enterococcus, i.e. Enterococcus faecalis. Progress note dated December 24, 2023. 83-year-old male seen today in room 368. He is currently on oxygen at 2 L. He is receiving saline at 100 cc an hour. Saturations are excellent. The patient continues on antibiotics for group D Enterococcus infection. The patient feels like he is getting better, and albeit slowly. He denies any shortness of breath, cough, wheezing, chest tightness, or phlegm production. He also denies any chest pain or pressure. No new laboratory data today. Lab data from yesterday, has been evaluated. Blood and urine specimens show evidence of Enterococcus. The patient continues on Unasyn, and Flagyl. Progress note dated December 25, 2023. 83-year-old male seen today in room 368. The patient is currently on 2 L. The patient is currently not receiving any IV fluids. He continues on Unasyn, and Flagyl, for his enterococcal infection. He had Enterococcus both in the blood and urine. He is not having any issues or problems. He does feel weak. Current labs include a white count 14.1, hemoglobin 9.8, hematocrit 31.7, and platelet count 284,000. The patient's PTT was 21.1 with an INR of 2.1. Sodium 140, potassium 4.2, chlorides 114, CO2 20, BUN 17, and creatinine 0.87. Glucose is 102. Albumin is 2.1. Progress note dated December 26, 2023. 83-year-old male seen today in room 368. He continues on oxygen at 2 L. He is not receiving any IV fluids. He also continues on Unasyn, and Flagyl, for his enterococcal infection. Enterococcus was noted both in the blood and urine. The patient complains of weakness. He is lying flat in bed, without any respiratory difficulty or distress. Current labs include a white count 13.7, hemoglobin 8.9, hematocrit 28.8, and a normal platelet count of 372,000. PT 20.8. INR 2.1. Sodium 138, potassium 4.3, chlorides 112, CO2 25, BUN 15, creatinine 0.88. Glucose is 95. Calcium is 7.3. Progress note dated December 27, 2023. 83-year-old male seen today in room 368. The patient continues on oxygen at 2 L. He is getting saline at 20 cc an hour. He continues on Flagyl and Unasyn for his infection. Clinically, he is doing reasonably well. I do recommend that he either get out of bed and sit up in the chair, or raise the head of his bed, so that his diaphragm can work better. He always seems to be flat in bed. He has no complaints today other than weakness. He denies any shortness of breath. Labs today include a white count 12.2, hemoglobin 8.8, hematocrit 28.2, and a normal platelet count. PT 25.4, and INR is 2.6. Objective - Vital Signs Vital signs: Vital Signs Temp 98.0 F 12/27/23 12:00 Pulse 58 L 12/27/23 12:00 Resp 18 12/27/23 12:00 BP 106/64 12/27/23 12:00 Pulse Ox 95 12/27/23 12:00 FiO2 Intake & Output 06/01/1212/27/23 12/27/23 18:59 06:59 18:59 Intake Total 260 20 118 Output Total 650 Balance -390 20 118 Weight 122.47 kg Intake: IV 20 20 Invasive Line 6 20 20 Oral 240 118 Output: Urine 650 Uretheral (Aguilar) 650 Other: Voiding Method Indwelling Catheter Indwelling Catheter Indwelling Catheter # Bowel Movements 1 1 - Exam No acute distress, oriented 3. The patient is currently on 2 L of oxygen. HEENT examination is grossly unremarkable. Mucous membranes are moist. No oral lesions. Neck supple. Full range of motion. No adenopathy thyromegaly or neck vein distention. Cardiovascular examination reveals regular rhythm rate. S1-S2 normal. No S3 or S4. No discernible murmur noted. Heart rate is 58 bpm. Lungs reveal clear breath sounds. Breath sounds are equal bilaterally. No adventitious lung sounds including wheezes rhonchi or crackles. Saturations are 97 % on 2 L of oxygen. Abdomen soft bowel sounds are heard. No masses or tenderness. Extremities are intact. No cyanosis clubbing or edema. Skin is without rash or lesion. Neurologic examination is brief but nonfocal. - Labs CBC & Chem 7: 12/27/23 10:27 12/26/23 06:32 Labs: Abnormal Lab Results - Last 24 Hours (Table) 12/27/23 12/27/23 Range/Units 10:27 10:27 WBC 12.2 H (3.8-10.6) k/uL RBC 3.05 L (4.30-5.90) m/uL Hgb 8.8 L (13.0-17.5) gm/dL Hct 28.2 L (39.0-53.0) % Neutrophils # 10.6 H (1.3-7.7) k/uL Lymphocytes # 0.4 L (1.0-4.8) k/uL PT 25.4 H (10.0-12.5) sec INR 2.6 H (<1.2) Microbiology - Last 24 Hours (Table) 12/23/23 07:53 Blood Culture - Preliminary Blood Assessment and Plan Assessment: Group D Enterococcus bacteremia/urinary tract infection. Left-sided hydronephrosis, requiring cystoscopy, and stent placement, 12/21/2023. Bilateral lower lobe atelectasis. Chronic stage IIIb kidney disease. Paroxysmal atrial fibrillation. History of sick sinus syndrome. Chronic systolic CHF. Hypertension. History of prostate cancer, status post radiation treatment. General medical debility. Hematuria. Plan: Plan dated December 23, 2023. The patient is seen today in room 368. The patient is currently on 2 L of oxygen. Saturations are 96%. The patient continues on Unasyn, and Flagyl, as per infectious diseases. Cultures were positive for group D Enterococcus/Enterococcus faecalis. Labs, x-rays, medications are reviewed. The patient's overall prognosis remains guarded. His major complaint today is weakness and fatigue. We will continue to follow make recommendations along the way. Prognosis is certainly guarded. Care is primarily supportive. Plan dated December 24, 2023. The patient is again seen today in room 368. The patient's primary issue is weakness. The patient is currently on oxygen, at 2 L. He is receiving saline, 100 cc an hour. The patient is on both Unasyn, and Flagyl. Cultures were positive for group B Enterococcus. Labs, x-rays, medications are reviewed. Will continue to follow the patient, make recommendations. Prognosis is guarded. We encourage the patient to get out of bed. Plan dated December 25, 2023. The patient seems to be doing reasonably well. The patient continues on Unasyn and Flagyl, for his enterococcal infection, and the bloody urine. He is currently on 2 L. The patient's not receiving any IV fluids. Labs, x-rays, and medications are reviewed. The patient's primary complaint is weakness and fatigue. He is not having any shortness of breath, cough, wheezing, chest tightness, or phlegm production. We will continue to follow the patient, and make recommendations were appropriate. Prognosis is guarded. Plan dated December 26, 2023. The patient continues to be relatively stable. He continues on oxygen at 2 L. He is not receiving any IV fluids. The patient is receiving both Unasyn and Flagyl, per infectious diseases, for his enterococcal infection. Enterococcus was noted in the blood and urine. Labs, x-rays, and medications are reviewed. We will continue to follow the patient. His respiratory status is stable. Prognosis is guarded. His biggest complaint is weakness. Plan dated December 27, 2023. The patient is seen today in room 368. He is laying flat in bed. No respiratory distress. He continues on oxygen at 2 L. He is getting saline at 20 cc an hour. Labs, x-rays, and medications are reviewed. The patient continues on Flagyl and Unasyn. Additional recommendations and suggestions are forthcoming. Prognosis is guarded. The patient needs to get out of bed, or at the very least, raise the head of his bed, while he is in bed. Time with Patient: Less than 30
--- NOTE | 2023-12-27 14:40 | P.DS ---
Providers Date of admission: 12/15/23 19:38 Expected date of discharge: 12/27/23 Attending physician: Grover Yoder MD Consults: 12/16/23 10:46 Consult Physician Routine Consulting Provider: Radha Mahajan Consult Reason/Comments: COVID-19 , respiratory failure Do you want consulting provider notified?: Yes 12/19/23 12:10 Consult Physician Routine Consulting Provider: Shadi Nguyen Consult Reason/Comments: hematuria Do you want consulting provider notified?: Yes 12/19/23 13:15 Consult Physician Routine Consulting Provider: Aj Castillo Consult Reason/Comments: Enterococcal UTI Do you want consulting provider notified?: Yes Primary care physician: Celina Munoz Hospital Course: Final diagnosis Sepsis with bacteremia secondary to urinary tract infection with Enterococcus Bacteremia secondary to urinary tract infection Acute hypoxic respiratory failure History of recent COVID-19 infection Supratherapeutic INR elevated troponins possibly due to acute kidney injury, COVID infection History of recent hydronephrosis status post cystoscopy on 11/18 Hypertension Hyperlipidemia Paroxysmal atrial fibrillation on Coumadin Coagulopathy secondary to Coumadin use and sepsis Sick sinus syndrome status post permanent pacemaker Stage II pressure injury to the coccyx and bilateral buttock, present on admission Mild chronic lower extremity edema Urinary retention requiring indwelling Aguilar catheter. Recommend monitoring for improvements in hematuria and purulence prior to voiding trial. 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 Patient will follow-up with Dr. Munoz in the outpatient setting upon discharge. Patient is to continue with IV antibiotics in the form of Unasyn and oral Flagyl for 1 week and close outpatient follow-up with urology, infectious disease, cardiology, pulmonary in the outpatient setting as scheduled. Total time taken is greater than 35 minutes. Hospital course This is a 83-year-old male who was recently admitted with sepsis secondary to urinary tract infection with cultures growing Enterococcus. Patient also bacteremic and most recent blood cultures have been negative and patient with recent hydronephrosis status post cystoscopy. Patient also noted to have increasing renal failure with retention with sepsis requiring stenting of the left that will require outpatient urology follow-up for stent removal. Patient continues with indwelling Aguilar catheter and recommend to continue with Aguilar catheter management and interrogation at least once daily to monitor for resolution of hematuria and purulent drainage. Patient also noted to have some pressure injury noted on the coccyx region and bilateral buttock recommending zinc paste and Optifoam to the coccyx region and offloading with frequent position changes every 2 hours. Patient does take Coumadin and recommend to monitor with frequent PT/INR. Patient has been cleared by consultations and will continue on 1 week of antibiotic with close outpatient follow-up. Patient with significant weakness plans on returning to [facility] for continued PT/OT therapy. Please refer to other consultation notes for further HPI. Currently no reports of chest pain, shortness of breath, or palpitations. Patient is afebrile. No reports of nausea or vomiting and patient is tolerating diet. Patient will be going to [facility] on the [place] today. Guarded prognosis given significant comorbidities, and age. Patient is high risk for readmissions. Physical exam: Gen: This is a 83-year-old male who is awake, alert and oriented x 3, well- developed, well-nourished, obese, ill-appearing, elderly appearing HEENT: Head is atraumatic, normocephalic. Pupils equal, round. Sclerae is anicteric. NECK: Supple. No JVD. No lymphadenopathy. No thyromegaly. LUNGS: Diminished breath sounds bilaterally otherwise clear to auscultation. No wheezes or rhonchi. No intercostal retractions. HEART: S1, S2 are muffled ABDOMEN: Soft. Obese bowel sounds are present. No masses. No tenderness. EXTREMITIES: No pedal edema. No calf tenderness. NEUROLOGICAL: Patient is awake, alert and oriented x3. Cranial nerves 2 through 12 are grossly intact. Diffusely weak hello Please refer to medication reconciliation sheet for a list of medications. The impression and plan of care has been dictated by Eve Alexander, Nurse Practitioner as directed. Dr. Shayy MD I have performed a history and examination and MDM of this patient, discussed the same with the dictator, and agree with the dictator's assessment and plan as written ,documented as a scribe. Based on total visit time, I have performed more than 50% of the visit. Patient Condition at Discharge: Fair Plan - Discharge Summary Discharge Rx Participant: No New Discharge Prescriptions: New Cholestyramine (with Sugar) [Questran Packet] 4 gm PO BID@1000,1800 packet Albuterol Inhaler [Ventolin Hfa Inhaler] 2 puff INHALATION RT-Q6H PRN each PRN Reason: Shortness Of Breath Or Wheezing metroNIDAZOLE [Flagyl] 500 mg PO TID #21 tab Ampicillin-Sulbactam [Unasyn 3 gm vial] 3 gm IVPB Q6H 7 Days #32 each Continue Warfarin [Coumadin] 2.5 mg PO SUTUTHSA@2099 polyethylene glycoL 3350 [Miralax] 17 gm PO DAILY 3 Days #3 packet Sodium Bicarbonate Tab 650 mg PO BID tab Lidocaine Hcl 2% Injection Solution 2 ml IM DIRECTED Methylprednisolone Acetate Suspension 80mg/Ml 80 mg IM DIRECTED Ascorbic Acid [Vitamin C] 500 mg PO DAILY atenoloL 25 mg PO BID bisacodyL [Dulcolax] 10 mg PO DAILY Temazepam 7.5 mg PO HS #2 cap Acetaminophen [Tylenol] 1,000 mg PO Q6H PRN PRN Reason: Pain guaiFENesin-DM 100-10MG/5ML [Robitussin DM] 10 ml PO Q6HR PRN 3 Days #100 ml PRN Reason: Cough guaiFENesin [Diabetic Tussin Ex] 200 mg PO Q4H PRN PRN Reason: Cough Changed Warfarin [Coumadin] 3 mg PO MOWEFR@2100 #0 Discontinued amLODIPine [Norvasc] 5 mg PO DAILY Furosemide [Lasix] 40 mg PO DAILY tab Ciprofloxacin HCl [Cipro] 250 mg PO Q12HR resveratroL [Resveratrol] 200 mg PO DAILY Zinc Gluconate [Zinc] 50 mg PO DAILY Discharge Medication List Acetaminophen [Tylenol] 1,000 mg PO Q6H PRN 05/30/21 [History] Warfarin [Coumadin] 2.5 mg PO SUTUTHSA@2100 11/29/22 [History] Sodium Bicarbonate Tab 650 mg PO BID tab 11/21/23 [Rx] guaiFENesin-DM 100-10MG/5ML [Robitussin DM] 10 ml PO Q6HR PRN 3 Days #100 ml 11/21/23 [Rx] polyethylene glycoL 3350 [Miralax] 17 gm PO DAILY 3 Days #3 packet 11/21/23 [Rx] Ascorbic Acid [Vitamin C] 500 mg PO DAILY 12/15/23 [History] Lidocaine Hcl 2% Injection Solution 2 ml IM DIRECTED 12/15/23 [History] Methylprednisolone Acetate Suspension 80mg/Ml 80 mg IM DIRECTED 12/15/23 [History] atenoloL 25 mg PO BID 12/15/23 [History] bisacodyL [Dulcolax] 10 mg PO DAILY 12/15/23 [History] guaiFENesin [Diabetic Tussin Ex] 200 mg PO Q4H PRN 12/15/23 [History] Albuterol Inhaler [Ventolin Hfa Inhaler] 2 puff INHALATION RT-Q6H PRN each 12/27/23 [Rx] Ampicillin-Sulbactam [Unasyn 3 gm vial] 3 gm IVPB Q6H 7 Days #32 each 12/27/23 [Rx] Cholestyramine (with Sugar) [Questran Packet] 4 gm PO BID@1000,1800 packet 12/27/23 [Rx] Temazepam 7.5 mg PO HS #2 cap 12/27/23 [Rx] Warfarin [Coumadin] 3 mg PO MOWEFR@2100 #0 12/27/23 [Rx] metroNIDAZOLE [Flagyl] 500 mg PO TID #21 tab 12/27/23 [Rx] Follow up Appointment(s)/Referral(s): Christian Santana MD [STAFF PHYSICIAN] - 1 Week [facility] on [facility], [NON-STAFF] - 1 Week Celina Munoz MD [Primary Care Provider] - 1-2 days Aj Castillo MD [STAFF PHYSICIAN] - 1 Week Activity/Diet/Wound Care/Special Instructions: Patient is going to [facility] on the [place] Activity as tolerated Continue with frequent position changes every 2 hours and offloading of the coccyx area with Optifoam and zinc barrier paste around the surrounding tissue Continue with indwelling Aguilar catheter for now and recommend to continue irrigating at least once per day to monitor for clearance of hematuria and purulence Patient has received a midline and will continue on IV antibiotics in the form of Unasyn and oral Flagyl for the next 1 week Outpatient follow-up with infectious disease outpatient Continue Questran twice daily as needed and hold if having more formed stools Continue with close outpatient follow-up with urology Continue Coumadin therapy and INR monitoring Repeat labs of CBC, BMP, magnesium, PT/INR Continue heart healthy diet with Ensure Enlive supplements 3 times daily with meals Patient to follow-up with pulmonary, urology, cardiology and primary care provider outpatient
--- NOTE | 2023-12-27 15:19 | P.PN ---
Subjective Progress Note Date: 12/27/23 Principal diagnosis: Reason for follow-up visit Enterococcus urinary tract infection and leukocytosis Patient is a 83-year-old male past medical history significant for hypertension hyperlipidemia atrial fibrillation heart failure prostate cancer presenting to the hospital for evaluation of increasing shortness of breath weakness did have elevated white count positive UA with urine showing Enterococcus prompting this consultation.Patient is status post cystoscopy and left ureteral stent insertion procedure completed 12/21/2023. On today's evaluation that is 12/27/2023, patient has been afebrile, patient is breathing comfortably and is currently on 2 L current oxygen, patient denies having any significant cough no chest pain shortness of breath, patient denies n ausea vomiting or abdominal pain, patient mentioned that he has slowed down. Patient white count is down to 12.2 blood culture repeat has been negative so far Objective - Vital Signs Vital signs: Vital Signs Temp 98.2 F 12/27/23 08:00 Pulse 60 12/27/23 08:00 Resp 18 12/27/23 08:00 BP 136/62 12/27/23 08:00 Pulse Ox 96 12/27/23 08:26 FiO2 Intake & Output 12/26/23 12/27/23 12/27/23 18:59 06:59 18:59 Intake Total 260 20 118 Output Total 650 Balance -390 20 118 Weight 122.47 kg Intake: IV 20 20 Invasive Line 6 20 20 Oral 240 118 Output: Urine 650 Uretheral (Aguilar) 650 Other: Voiding Method Indwelling Catheter Indwelling Catheter Indwelling Catheter # Bowel Movements 1 1 - Exam GENERAL DESCRIPTION: An elderly male lying in bed in no distress RESPIRATORY SYSTEM: Unlabored breathing , decreased breath sounds at bases HEART: S1 S2 regular rate and rhythm , ABDOMEN: Soft , no tenderness EXTREMITIES: No edema feet - Labs CBC & Chem 7: 12/27/23 10:27 12/26/23 06:32 Labs: Abnormal Lab Results - Last 24 Hours (Table) 12/27/23 12/27/23 Range/Units 10:27 10:27 WBC 12.2 H (3.8-10.6) k/uL RBC 3.05 L (4.30-5.90) m/uL Hgb 8.8 L (13.0-17.5) gm/dL Hct 28.2 L (39.0-53.0) % Neutrophils # 10.6 H (1.3-7.7) k/uL Lymphocytes # 0.4 L (1.0-4.8) k/uL PT 25.4 H (10.0-12.5) sec INR 2.6 H (<1.2) Microbiology - Last 24 Hours (Table) 12/23/23 07:53 Blood Culture - Preliminary Blood Assessment and Plan (1) Enterococcus UTI Current Visit: Yes Status: Acute Code(s): N39.0 - URINARY TRACT INFECTION, SITE NOT SPECIFIED; B95.2 - ENTEROCOCCUS THE CAUSE OF DISEASES CLASSIFIED ELSEWHERE SNOMED Code(s): 685953612656244 (2) Leukocytosis Current Visit: Yes Status: Acute Code(s): D72.829 - ELEVATED WHITE BLOOD CELL COUNT, UNSPECIFIED SNOMED Code(s): 069648141 (3) Bacteremia Current Visit: Yes Status: Acute Code(s): R78.81 - BACTEREMIA SNOMED Code(s): 6229170 Plan: 1patient with a symptom of weakness which is multifactorial he did have a positive UA some urinary symptoms concerning for symptomatic bladder infection with elevated white count and urine is growing Enterococcus 2--patient urine has been finalized Enterococcus faecalis that is penicillin sensitive, patient blood cultures are growing Enterococcus faecalis as well as bacteroids species 3-patient did have CT abdominal pelvis did shows marked left-sided hydronephrosis and diverticulosis but no diverticulitis and no mention of any abscess or colitis 4the patient white count is trending down, repeat blood culture has been negative so far 5-patient to continue with Unasyn and Flagyl, did have improvement in the diarrhea with the Questran to continue we will get a midline to finish his 2- week course of antibiotic therapy discussed with the [facility] working on discharge Dictation was produced using [employer] dictation software. please excuse any grammatical, word or spelling errors. Time with Patient: Less than 30
[2023-12-27] MEDS: WARFARIN 2 MG TAB PO ONE (17:28)
[2023-12-27 17:51] VITALS: BP 112/66; PULSE 60
== END 2023-12-27 18:51 | DRG 987 ==
LOC: EC 17:22 → 3SCARD 19:38
PROVIDERS: ADMIT Internal Medicine; ATTEND Internal Medicine
PROC: 0T768ZZ Dilation of Right Ureter, Via Natural or Artificial Opening Endoscopic (ICD-10-PCS; 2023-12-21)
PROC: 0T778DZ Dilation of Left Ureter with Intraluminal Device, Via Natural or Artificial Opening Endoscopic (ICD-10-PCS; principal; 2023-12-21 11:00)
PROC: 05HC33Z Insertion of Infusion Device into Left Basilic Vein, Percutaneous Approach (ICD-10-PCS; 2023-12-27)
DX: J96.01 Acute respiratory failure with hypoxia (principal); A41.89 Other specified sepsis; U07.1 COVID-19; J12.82 Pneumonia due to coronavirus disease 2019; I21.A1 Myocardial infarction type 2; I50.42 Chronic combined systolic (congestive) and diastolic (congestive) heart failure; M96.0 Pseudarthrosis after fusion or arthrodesis; I13.0 Hypertensive heart and chronic kidney disease with heart failure and stage 1 through stage 4 chronic kidney disease, or unspecified chronic kidney disease; I31.39 Other pericardial effusion (noninflammatory); I48.20 Chronic atrial fibrillation, unspecified; J98.11 Atelectasis; N17.9 Acute kidney failure, unspecified; N13.6 Pyonephrosis; I48.0 Paroxysmal atrial fibrillation; N18.32 Chronic kidney disease, stage 3b; R31.0 Gross hematuria; B95.2 Enterococcus as the cause of diseases classified elsewhere; L89.152 Pressure ulcer of sacral region, stage 2; K57.30 Diverticulosis of large intestine without perforation or abscess without bleeding; R33.8 Other retention of urine; T45.515A Adverse effect of anticoagulants, initial encounter; L89.322 Pressure ulcer of left buttock, stage 2; N40.1 Benign prostatic hyperplasia with lower urinary tract symptoms; L89.312 Pressure ulcer of right buttock, stage 2; E11.22 Type 2 diabetes mellitus with diabetic chronic kidney disease; E66.9 Obesity, unspecified; Z68.36 Body mass index [BMI] 36.0-36.9, adult; E78.5 Hyperlipidemia, unspecified; I08.0 Rheumatic disorders of both mitral and aortic valves; I25.10 Atherosclerotic heart disease of native coronary artery without angina pectoris; I08.2 Rheumatic disorders of both aortic and tricuspid valves; I49.5 Sick sinus syndrome; R79.1 Abnormal coagulation profile; Z79.01 Long term (current) use of anticoagulants; Z79.899 Other long term (current) drug therapy; Z85.46 Personal history of malignant neoplasm of prostate; Z87.440 Personal history of urinary (tract) infections; Z86.73 Personal history of transient ischemic attack (TIA), and cerebral infarction without residual deficits; Z87.442 Personal history of urinary calculi; Z92.3 Personal history of irradiation; Z86.16 Personal history of COVID-19; Z95.0 Presence of cardiac pacemaker; X58.XXXA Exposure to other specified factors, initial encounter
CPT/HCPCS: 36410; 36415; 71045; 71250; 74176; 76604; 76770; 76937; 80048; 80053; 81001; 83605; 83735; 83880; 84145; 84484; 85025; 85610; 85730; 86140; 87040; 87077; 87086; 87186; 87324; 87636; 93005; 94640; 94760; 96361; 96365; 96366; 96367; 96375; 99291

== ENCOUNTER 2024-01-15 09:14 | Day surgery (SDC) | payer MEDICARE, BC ==
--- NOTE | 2024-01-14 10:07 | P.GSHP ---
History of Present Illness H&P Date: 01/14/24 83-year-old gentleman recently in the hospital with an obstructing ureteral stone and a urinary tract infection. Dr. mc placed a double-J catheter. He now comes for formal stone and stent removal risk complications have been outlined - Constitutional Constitutional: Denies chills, Denies fever - EENT Eyes: denies blurred vision, denies pain Ears, nose, mouth and throat: Denies headache, Denies sore throat - Cardiovascular Cardiovascular: Denies chest pain, Denies shortness of breath - Respiratory Respiratory: Denies cough, Denies 7 - Gastrointestinal Gastrointestinal: Denies abdominal pain, Denies diarrhea, Denies nausea, Denies vomiting - Genitourinary (Female) Genitourinary: Denies dysuria, Denies hematuria - Genitourinary (Male) Genitourinary: Denies dysuria, Denies hematuria - Musculoskeletal Musculoskeletal: Denies myalgias - Integumentary Integumentary: Denies pruritus, Denies rash - Neurological Neurological: Denies numbness, Denies weakness - Psychiatric Psychiatric: Denies anxiety, Denies depression - Endocrine Endocrine: Denies fatigue, Denies weight change Past Medical History Past Medical History: Atrial Fibrillation, Cancer, Heart Failure, CVA/TIA, GERD/Reflux, Hyperlipidemia, Hypertension, Pneumonia, Prostate Disorder Additional Past Medical History / Comment(s): tia-2004, arthritis, enlarged prostate, prostate CA 2014(radiation), hx shingles, dry skin on arms, numbness in last 2 fingers to left hand, kidney stone, hospitalized at [facility] 12/15/23-12/27/23 for UTI, sepsis, pneumonia, currently at [facility] for rehab, sit to stand lift transfer due to weakness, able to bear weight. no current open wounds or pressure ulcers per [facility]. History of Any Multi-Drug Resistant Organisms: None Reported Past Surgical History: Cholecystectomy, Hernia Repair, Orthopedic Surgery, Pacemaker Additional Past Surgical History / Comment(s): cervical fusion, lithotripsy 11/19/23 Past Anesthesia/Blood Transfusion Reactions: No Reported Reaction Additional Past Anesthesia/Blood Transfusion Reaction / Comment(s): Pt has never recieved blood. Type of Cardiac Device: Permanent Pacemaker Device Placement Date:: 2013 Smoking Status: Former smoker - Past Family History Father Family Medical History: Diabetes Mellitus Mother Family Medical History: Osteoarthritis (OA) Additional Family Medical History / Comment(s): arthritis Medications and Allergies Home Medications Medication Instructions Recorded Confirmed Type Acetaminophen [Tylenol] 1,000 mg PO Q6H PRN 05/30/21 01/10/24 History Warfarin [Coumadin] 2.5 mg PO SUTUTHSA@2100 11/29/22 01/10/24 History Sodium Bicarbonate Tab 650 mg PO BID tab 11/21/23 01/10/24 Rx Ascorbic Acid [Vitamin C] 500 mg PO DAILY 12/15/23 01/10/24 History atenoloL 25 mg PO BID 12/15/23 01/10/24 History Albuterol Inhaler [Ventolin Hfa 2 puff INHALATION RT-Q6H PRN each 12/27/23 01/10/24 Rx Inhaler] Cholestyramine (with Sugar) 4 gm PO BID@1000,1800 packet 12/27/23 01/10/24 Rx [Questran Packet] Warfarin [Coumadin] 3 mg PO MOWEFR@2100 #0 12/27/23 01/10/24 Rx Fluconazole [Diflucan] 100 mg PO DAILY 01/10/24 01/10/24 History Ramelteon 8 mg PO HS 01/10/24 01/10/24 History Allergies Allergy/AdvReac Type Severity Reaction Status Date / Time No Known Allergies Allergy Verified 01/10/24 10:22 Surgical - Exam - General well developed, well nourished, no distress - Eyes normal ocular movement, no icteric - ENT no hearing loss, no congestion - Neck no masses, trachea midline - Respiratory normal respiratory effort, clear to auscultation - Abdomen Abdomen: soft, non tender, no guarding, no rigid, no rebound - Integumentary no rash, no abnormal pigmentation - Neurologic no disoriented, no combative - Psychiatric oriented to time, oriented to person, oriented to place, speech is normal, memory intact Results - Imaging Abdominal x-ray: report reviewed, image reviewed CT scan - abdomen: report reviewed, image reviewed CT scan - pelvis: report reviewed, image reviewed Assessment and Plan Assessment: Impression: Left ureteral calculus with obstruction status post stent placement, multiple medical illnesses Recommendations: Cystoscopy left ureteroscopy laser lithotripsy and probable stent removal
[~2024-01-15 09:14] MED LIST changes: +HYDROmorphone 0.5 MG/0.5 ML SYRINGE IVP PRN; +LIDOCAINE 1% (10MG/ML) FOR IV START INTRADERMA PRN; -SODIUM CHLORIDE 0.9% 1,000 ML IV SCH
[2024-01-15] MEDS: LACTATED RINGERS 1,000 ML IV SCH (10:09)
[2024-01-15] MEDS: ONDANSETRON 4 MG/2 ML VIAL IVP ONE (10:09)
[2024-01-15] MEDS: DEXAMETHASONE SOD PHOSPHATE 4 MG/ML 1 ML VIAL IV ONE (10:09)
[2024-01-15] MEDS: IV FLUID CONTINUATION 1,000 ML IV ONE (10:22)
[2024-01-15] MEDS: GENTAMICIN 140 MG in SODIUM CHLORIDE 0.9% 100 ML IVPB PRN (10:31)
[2024-01-15 10:39] LABS: INR 2.9 (<1.2); Prothrombin Time 28.4 sec (10.0-12.5)
[2024-01-15] MEDS ORDERED: fentaNYL (PF) 50 MCG/ML 2 ML AMP ONE (11:24)
[2024-01-15] MEDS ORDERED: ePHEDrine 50 MG/ML 1 ML VIAL ONE (11:24)
[2024-01-15] MEDS ORDERED: SUCCINYLCHOLINE CHLORIDE 200 MG/10 ML VIAL IV ONE (11:24)
[2024-01-15] MEDS ORDERED: PHENYLEPHRINE 10 MG/ML VIAL ONE (11:24)
[2024-01-15] MEDS ORDERED: PROPOFOL 10 MG/ML 20 ML VIAL IV ONE (11:24)
[2024-01-15] MEDS ORDERED: LIDOCAINE 1% INJ 10MG/ML (20 ML MDV) ONE (11:24)
[2024-01-15] MEDS: AMPICILLIN 1,000 MG in SODIUM CHLORIDE 0.9% 50 ML IVPB PRN (11:26)
--- NOTE | 2024-01-15 11:56 | XR ---
EXAMINATION TYPE: XR KUB DATE OF EXAM: 01/15/2024 9:43 AM CLINICAL INDICATION:Male, 83 years old with history of N20.1 left ureteral calculi; [facility] COMPARISON: CT 12/22/2023.. TECHNIQUE: One radiographic view of the abdomen was obtained. FINDINGS: The bowel gas pattern is nonspecific without dilated loops of small or large bowel. There i s no evidence for organomegaly or pneumoperitoneum. . Left renal stent with incompletely formed lef t inferior pigtail catheter possibly representing migration. The superior pigtail catheters within no rmal position. Upper quadrant cholecystectomy clips. Trachea is seen Left ureteral stent is not well appreciated on radiography. Multiple left-sided nonobstructing calcul us seen on prior CT abdomen less well appreciated as well due to overlapping bowel gas. IMPRESSION: 1. Calculus along the left ureteral stent is not as well appreciated on radiography. 2. Left renal stent with incompletely formed left inferior pigtail catheter possibly representing mi gration. The superior pigtail catheters within normal position.
[2024-01-15] MEDS ORDERED: ALBUTEROL NEBULIZED 2.5 MG/3 ML INHALATION PRN (12:31)
[2024-01-15] MEDS ORDERED: ACETAMINOPHEN TAB 500 MG TAB PO PRN (12:31)
[2024-01-15] MEDS ORDERED: HYDROcodone/APAP 5-325MG 1 EACH TAB PO PRN (12:33)
[2024-01-15] MEDS ORDERED: GENTAMICIN PER PHARMACY MISCELLANE PRN (12:33)
[2024-01-15] MEDS ORDERED: AMIKACIN IV PER PHARMACY 1 EACH MISC MISCELLANE PRN (12:40)
--- NOTE | 2024-01-15 12:40 | P.OP ---
Date of Procedure: 01/15/24 Preoperative Diagnosis: left ureteral calculus with obstruction status post stent placement Postoperative Diagnosis: same Procedure(s) Performed: cystoscopy, left ureteroscopy with laser lithotripsy, replacement of stent, 7 x 26 Anesthesia: SHIRA Surgeon: Jaskaran Orellana Pathology: other (stone, urine culture) Condition: stable Disposition: PACU Indications for Procedure: patient is 83. He was in the hospital with an obstructing ureteral stone and stent placement for urinary tract infection with sepsis on the left side. He's been treated with antibiotics he now comes for formal stone removal Description of Procedure: patient brought to the operative suite. Given general anesthesia. Placed lithotomy position with sterile prep and drape. Cystoscopy Foroblique lens shows previous prostate surgery. The bladder wall shows a stent. His pulled to the urethral meatus and an 035 wires passed up the left ureter into the kidney. I then pass a reentry sheath over the wire. I feel like there is a stone in the mid to distal ureter. Thus the flexible scope up into the kidney. There is a lot of debris in the kidney is irrigated out thoroughly. I do a pullout ureteroscopy and there is stone impacted in the ureter below the iliac vessels. With the 270 probe the stone was broken and freed from the ureter the large fragment is basketed. The obstruction and the amount of edema from the stone I elect to replace the stent. An 035 wires passed through the working sheath back into the kidney is backloaded on the cystoscope and a 7 x 26 stent placed up in the kidney and the bladder. Aguilar catheters placed patient's awakened and sent to recovery room. The patient will be observed in the hospital overnight due to the chronically infected left kidney which is hydronephrotic drip. His situation is somewhat complicated in that he has aged, senescent, immobilized, chronic indwelling catheter with a poorly functioning left kidney, chronically infected. This is been discussed with the family.
--- NOTE | 2024-01-15 12:48 | FL ---
EXAMINATION TYPE: FL guidance operating room Intraoperative/procedural fluoroscopic services were pro vided. Total fluoroscopy time is 57 seconds with a total of 4 submitted images to PACS. Please see th e operative/procedural note for further details. DAP: 1.05
[2024-01-15] MEDS: DEXTROSE 5%-0.45% NACL 1,000 ML IV SCH (14:17)
[2024-01-15] MEDS: metroNIDAZOLE 500 MG TAB PO SCH (17:30)
[2024-01-15] MEDS: CHOLESTYRAMINE (WITH SUGAR) 4 GM PACKET PO SCH (17:30)
[2024-01-15] MEDS: LACTOBACILLUS ACIDOPHILUS/PECT 1 EACH CAPSULE PO SCH (22:03)
[2024-01-15] MEDS: SODIUM BICARBONATE TAB 650 MG TAB PO SCH (22:04)
[2024-01-15] MEDS: atenoloL 25 MG TAB PO SCH (22:04)
[2024-01-15] MEDS: FIDAXOMICIN 200 MG TABLET PO SCH (22:05)
[2024-01-15 22:24] LABS: African American GFR (CKD) >90 (>60 ml/min/1.73 sqM); Non-African American GFR(CKD) 82 (>60 ml/min/1.73 sqM)
[2024-01-16] MEDS: FLUCONAZOLE 100 MG TAB PO SCH (07:29)
[2024-01-16] MEDS: ZINC OXIDE PASTE (Z-GUARD) 1 APPLIC TOPICAL ONE (16:02)
--- NOTE | 2024-01-16 16:35 | P.PN ---
Subjective Progress Note Date: 01/16/24 Principal diagnosis: Left ureteral calculus, UTI The patient underwent ureteroscopic removal of a left ureteral calculus yesterday. His ureteral stent was replaced. Preoperative urine culture showed a drug-resistant strain of Enterobacter. The Aguilar catheter is draining faintly blood-tinged urine. The patient feels well. Objective - Vital Signs Vital signs: Vital Signs Temp 97.5 F L 01/16/24 14:00 Pulse 58 L 01/16/24 14:00 Resp 18 01/16/24 14:00 BP 116/70 01/16/24 14:00 Pulse Ox 94 L 01/16/24 16:07 FiO2 Intake & Output 01/15/24 01/16/24 01/16/24 18:59 06:59 18:59 Intake Total 1050 Output Total 502 980 Balance 548 -980 Weight 127.27 kg Intake: IV 1050 Output: Urine 500 980 Estimated Blood Loss 2 Other: Voiding Method Indwelling Catheter Indwelling Catheter Indwelling Catheter # Voids 2 # Bowel Movements 1 2 - Constitutional General appearance: Present: average body habitus, cooperative, no acute distress - Psychiatric Psychiatric: Present: A&O x's 3 - Labs CBC & Chem 7: 01/15/24 22:02 Assessment and Plan (1) UTI (urinary tract infection) Current Visit: No Status: Acute Code(s): N39.0 - URINARY TRACT INFECTION, SITE NOT SPECIFIED SNOMED Code(s): 40490026 Plan: - Remove Aguilar catheter for voiding trial. - Will change amikacin to ertapenem. He will likely be discharged to the [facility] on ertapenem.
[2024-01-17 02:21] VITALS: TEMP 97.8
[2024-01-17 07:58] LABS: African American GFR (CKD) >90 (>60 ml/min/1.73 sqM); Non-African American GFR(CKD) 80 (>60 ml/min/1.73 sqM)
[2024-01-17 08:47] VITALS: BP 114/60; PULSE 60; RESP 16
--- NOTE | 2024-01-17 13:16 | P.DS ---
Providers Expected date of discharge: 01/17/24 Attending physician: Jaskaran Orellana Primary care physician: Celina Munoz - Discharge Diagnosis(es) (1) UTI (urinary tract infection) Current Visit: No Status: Acute Hospital Course: On the day of admission, the patient underwent ureteroscopic removal of his left ureteral calculus. Recent urine culture (obtained from Aguilar catheter) showed a drug-resistant strain of Enterobacter. The patient was treated with amikacin postoperatively. The Aguilar catheter was removed on January 15, and the patient was able to void without difficulty following that. He remained afebrile with stable vital signs. A midline was placed, so that he could complete his course of amikacin as an outpatient. Procedures: Cystoscopy, left ureteroscopy with laser lithotripsy, left ureteral stent change on January 15, 2024. Patient Condition at Discharge: Fair Plan - Discharge Summary Discharge Rx Participant: No New Discharge Prescriptions: New Fluconazole [Diflucan] 100 mg PO DAILY #14 tab metroNIDAZOLE [Flagyl] 500 mg PO TID #21 tab HYDROcodone/APAP 5-325MG [[place] 5-325] 1 each PO Q4HR PRN #24 tab PRN Reason: Moderate Pain (Scale 4 To 6) Continue Warfarin [Coumadin] 2.5 mg PO SUTUTHSA@2100 Sodium Bicarbonate Tab 650 mg PO BID tab atenoloL 25 mg PO BID Albuterol Inhaler [Ventolin Hfa Inhaler] 2 puff INHALATION RT-Q6H PRN each PRN Reason: Shortness Of Breath Or Wheezing Temazepam 7.5 mg PO HS PRN PRN Reason: Insomnia Cholestyramine (with Sugar) [Questran Packet] 4 gm PO BID@1000,1800 #28 packet Acetaminophen [Tylenol] 1,000 mg PO Q6H PRN PRN Reason: Pain Warfarin [Coumadin] 3 mg PO MOWEFR@2100 #0 Fluconazole [Diflucan] 100 mg PO DAILY Ramelteon 8 mg PO HS Lactobacillus Acidophilus [Acidophilus Probiotic] 1 each PO BID Discontinued Ascorbic Acid [Vitamin C] 500 mg PO DAILY polyethylene glycoL 3350 [Miralax] 17 gm PO DAILY PRN PRN Reason: Constipation metroNIDAZOLE [Flagyl] 500 mg PO TID Bismuth Subsalicylate [Pepto-Bismol] 30 ml PO Q4H PRN PRN Reason: Nausea Fidaxomicin [Dificid] 200 mg PO BID No Action Cholestyramine (with Sugar) [Questran Powder] 1 pack PO DAILY PRN PRN Reason: Diarrhea Discharge Medication List Acetaminophen [Tylenol] 1,000 mg PO Q6H PRN 05/30/21 [History] Warfarin [Coumadin] 2.5 mg PO SUTUTHSA@2100 11/29/22 [History] Sodium Bicarbonate Tab 650 mg PO BID tab 11/21/23 [Rx] atenoloL 25 mg PO BID 12/15/23 [History] Albuterol Inhaler [Ventolin Hfa Inhaler] 2 puff INHALATION RT-Q6H PRN each 12/27/23 [Rx] Warfarin [Coumadin] 3 mg PO MOWEFR@2100 #0 12/27/23 [Rx] Fluconazole [Diflucan] 100 mg PO DAILY 01/10/24 [History] Ramelteon 8 mg PO HS 01/10/24 [History] Cholestyramine (with Sugar) [Questran Powder] 1 pack PO DAILY PRN 01/15/24 [History] Lactobacillus Acidophilus [Acidophilus Probiotic] 1 each PO BID 01/15/24 [History] Temazepam 7.5 mg PO HS PRN 01/15/24 [History] Cholestyramine (with Sugar) [Questran Packet] 4 gm PO BID@1000,1800 #28 packet 01/17/24 [Rx] Fluconazole [Diflucan] 100 mg PO DAILY #14 tab 01/17/24 [Rx] HYDROcodone/APAP 5-325MG [[place] 5-325] 1 each PO Q4HR PRN #24 tab 01/17/24 [Rx] metroNIDAZOLE [Flagyl] 500 mg PO TID #21 tab 01/17/24 [Rx] Follow up Appointment(s)/Referral(s): Brent [facility]land [facility], [NON-STAFF] - As Needed Jaskaran Orellana MD [STAFF PHYSICIAN] - 01/22/24 1:20 pm Activity/Diet/Wound Care/Special Instructions: Flush midline q 12 hours with 10ml of normal saline Patient should receive amikacin 1450 mg IV piggyback every 48 hours for 2 more doses (next dose due 01/18/2024 afternoon). Monitor serum creatinine level daily through January 19. Discharge Disposition: TRANSFER TO [facility]/F
== END 2024-01-17 14:38 ==
LOC: OR 09:14 → 4SSUR 12:30 → OR 01-17 14:38
PROVIDERS: ATTEND Urology
DX: N20.1 Calculus of ureter (principal); E78.5 Hyperlipidemia, unspecified; I11.0 Hypertensive heart disease with heart failure; I48.91 Unspecified atrial fibrillation; I50.9 Heart failure, unspecified; K21.9 Gastro-esophageal reflux disease without esophagitis; Z79.01 Long term (current) use of anticoagulants; Z85.46 Personal history of malignant neoplasm of prostate; Z86.73 Personal history of transient ischemic attack (TIA), and cerebral infarction without residual deficits; Z87.891 Personal history of nicotine dependence; Z90.49 Acquired absence of other specified parts of digestive tract; Z95.0 Presence of cardiac pacemaker; Z98.890 Other specified postprocedural states
CPT/HCPCS: 52356; 94760 ×2; 36410; 76937; 80150; 82565 ×2; 85610; 82365; 87086; 87077; 87186; 74018; C2625; C1751; J0278 ×2; J0330; J1100; J2405; J2001; J3010; J1580; J0290; J2704; J2371

== ENCOUNTER 2024-02-12 05:38 | Day surgery (SDC) | payer MEDICARE, BC ==
--- NOTE | 2024-02-11 18:25 | P.GSHP ---
History of Present Illness H&P Date: 02/11/24 83 yo male who had an emergent stent placed for a left ureteral stone with pyonephrosis. Subsequently he underwent a left ureteroscopy with lasser litho , stone removal due to edema the stent was replaced. I tried to remove it in the office but due to his obesity, immobility and phimosis I was unable to do so. He now comes for stent removal under anesthesia. - Constitutional Constitutional: Denies chills, Denies fever - EENT Eyes: denies blurred vision, denies pain Ears, nose, mouth and throat: Denies headache, Denies sore throat - Cardiovascular Cardiovascular: Denies chest pain, Denies shortness of breath - Respiratory Respiratory: Denies cough, Denies 7 - Gastrointestinal Gastrointestinal: Denies abdominal pain, Denies diarrhea, Denies nausea, Denies vomiting - Genitourinary (Female) Genitourinary: Denies dysuria, Denies hematuria - Genitourinary (Male) Genitourinary: Denies dysuria, Denies hematuria - Musculoskeletal Musculoskeletal: Denies myalgias - Integumentary Integumentary: Denies pruritus, Denies rash - Neurological Neurological: Denies numbness, Denies weakness - Psychiatric Psychiatric: Denies anxiety, Denies depression - Endocrine Endocrine: Denies fatigue, Denies weight change Past Medical History Past Medical History: Atrial Fibrillation, Cancer, Heart Failure, CVA/TIA, GERD/Reflux, Hyperlipidemia, Hypertension, Prostate Disorder Additional Past Medical History / Comment(s): tia-2005, enlarged prostate, prostate CA 2014(radiation), hx shingles, dry skin on arms, numbness in last 2 fingers to left hand, kidney stone, CURRENT UTI, RESIDENT AT [facility] History of Any Multi-Drug Resistant Organisms: C-DIFF, CRE Date of last positivie culture/infection: 01/11/24 C.diff MDRO Source:: Urine-CRE Past Surgical History: Cholecystectomy, Hernia Repair, Orthopedic Surgery, Pacemaker Additional Past Surgical History / Comment(s): cervical fusion, lithrotripsy, Past Anesthesia/Blood Transfusion Reactions: No Reported Reaction Additional Past Anesthesia/Blood Transfusion Reaction / Comment(s): Pt has never recieved blood. Type of Cardiac Device: Permanent Pacemaker Device Placement Date:: 2013 Smoking Status: Former smoker - Past Family History Father Family Medical History: Diabetes Mellitus Mother Family Medical History: Osteoarthritis (OA) Additional Family Medical History / Comment(s): arthritis Medications and Allergies Home Medications Medication Instructions Recorded Confirmed Type Acetaminophen [Tylenol] 1,000 mg PO Q6H PRN 05/30/21 02/10/24 History Warfarin [Coumadin] 2.5 mg PO SUTUTHSA@2100 11/29/22 02/10/24 History Sodium Bicarbonate Tab 650 mg PO BID tab 11/21/23 02/10/24 Rx atenoloL 25 mg PO BID 12/15/23 02/10/24 History Albuterol Inhaler [Ventolin Hfa 2 puff INHALATION RT-Q6H PRN each 12/27/23 02/10/24 Rx Inhaler] Warfarin [Coumadin] 3 mg PO MOWEFR@2100 #0 12/27/23 02/10/24 Rx Ramelteon 8 mg PO HS 01/10/24 02/10/24 History Lactobacillus Acidophilus 1 each PO BID 01/15/24 02/10/24 History [Acidophilus Probiotic] Cholestyramine (with Sugar) 4 gm PO BID@1000,1800 #28 packet 01/17/24 02/10/24 Rx [Questran Packet] Cephalexin [Keflex] 500 mg PO TID 02/10/24 02/10/24 History Vancomycin Oral Solution 250 mg PO BID 02/10/24 02/10/24 History [Vancomycin HCl Oral Soln] Allergies Allergy/AdvReac Type Severity Reaction Status Date / Time No Known Allergies Allergy Verified 02/10/24 15:27 Surgical - Exam - General well developed, well nourished, no distress - Eyes normal ocular movement, no icteric - ENT no hearing loss, no congestion - Neck no masses, trachea midline - Respiratory normal respiratory effort, clear to auscultation - Abdomen Abdomen: soft, non tender, no guarding, no rigid, no rebound - Genitourinary phimosis - Integumentary no rash, no abnormal pigmentation - Neurologic no disoriented, no combative - Musculoskeletal wheel chair bound - Psychiatric oriented to time, oriented to person, oriented to place, speech is normal, memory intact Assessment and Plan Assessment: Impression: s/p left ureteral stone removal with stent placement, phimosis, immobility. Multiple medical problems. Plan: cysto with stent removal.
[~2024-02-12 05:38] MED LIST changes: -HYDROmorphone 0.5 MG/0.5 ML SYRINGE IVP PRN
[2024-02-12] MEDS: IV FLUID CONTINUATION 1,000 ML IV ONE (06:02)
[2024-02-12] MEDS: LACTATED RINGERS 1,000 ML IV SCH (06:12)
[2024-02-12] MEDS: DEXAMETHASONE SOD PHOSPHATE 4 MG/ML 1 ML VIAL IV ONE (06:12)
[2024-02-12] MEDS: ONDANSETRON 4 MG/2 ML VIAL IVP ONE (06:12)
[2024-02-12 06:38] VITALS: RESP 16
[2024-02-12] MEDS ORDERED: HYDROmorphone 0.5 MG/0.5 ML SYRINGE IVP PRN (07:00)
[2024-02-12] MEDS ORDERED: MIDAZOLAM 2 MG/2 ML VIAL IV PRN (07:00)
[2024-02-12] MEDS ORDERED: PROPOFOL 10 MG/ML 20 ML VIAL IV ONE (07:30)
[2024-02-12] MEDS ORDERED: SUCCINYLCHOLINE CHLORIDE 200 MG/10 ML VIAL IV ONE (07:30)
[2024-02-12] MEDS ORDERED: MIDAZOLAM 2 MG/2 ML VIAL ONE (07:30)
[2024-02-12] MEDS ORDERED: LIDOCAINE 1% INJ 10MG/ML (20 ML MDV) ONE (07:30)
[2024-02-12] MEDS: AMPICILLIN 1,000 MG in SODIUM CHLORIDE 0.9% 50 ML IVPB PRN (07:30)
[2024-02-12] MEDS: GENTAMICIN 140 MG in SODIUM CHLORIDE 0.9% 100 ML IVPB PRN (07:30)
[2024-02-12] MEDS ORDERED: fentaNYL (PF) 50 MCG/ML 2 ML AMP ONE (07:30)
[2024-02-12] MEDS ORDERED: PHENYLEPHRINE 10 MG/ML VIAL ONE (07:30)
[2024-02-12 07:36] LABS: INR 1.2 (<1.2); Prothrombin Time 12.5 sec (10.0-12.5)
--- NOTE | 2024-02-12 08:14 | P.OP ---
Date of Procedure: 02/12/24 Preoperative Diagnosis: left ureteral stent status post ureteroscopy laser lithotripsy, phimosis, immobility Postoperative Diagnosis: same Procedure(s) Performed: dorsal slit, cystoscopy with stent removal Anesthesia: SHIRA Surgeon: Jaskaran Orellana Estimated Blood Loss (ml): 0 Pathology: none sent Condition: stable Disposition: PACU Indications for Procedure: the patient is 83. He recently underwent stent placement followed by ureteroscopy laser lithotripsy left with replacement of stent. I attempted to remove the stent in the office but due to his phimosis and immobility could not do this. He comes for stent removal Description of Procedure: patient brought operating suite. Given a general anesthetic. Placed lithotomy position with sterile prep and drape. Upon initial evaluation and becomes obvious that the phimosis is so severe that I will not even be only get the cystoscope appropriately in for stent removal. I will do a dorsal slit. I crush the dorsal foreskin with a hemostat. I then incised the crushed skin. I then reapproximate both edges with running 3-0 chromic a. This allows me to expose the head of the penis and urethral meatus. I then pass the 21-Tristanian cystoscope into the urethra. It is normal. There is lateral lobe obstruction of the prostate. There is trabeculation of the bladder. The stent is identified and grasped and removed from the left ureteral orifice. The bladder is drained the patient is awakened and returned recovery room in good condition. He'll be discharged back to the nursing facility upon recovery. Blood loss is negligible
[2024-02-12 08:26] VITALS: TEMP 98
[2024-02-12 09:05] VITALS: PULSE 60
[2024-02-12 09:47] VITALS: BP 119/63
== END 2024-02-12 10:05 ==
LOC: OR 05:38
PROVIDERS: ATTEND Urology
DX: Z46.6 Encounter for fitting and adjustment of urinary device (principal); N47.1 Phimosis; Z96.0 Presence of urogenital implants; N32.89 Other specified disorders of bladder; N40.0 Benign prostatic hyperplasia without lower urinary tract symptoms; Z87.442 Personal history of urinary calculi; Z98.890 Other specified postprocedural states; I11.0 Hypertensive heart disease with heart failure; I50.9 Heart failure, unspecified; I48.91 Unspecified atrial fibrillation; K21.9 Gastro-esophageal reflux disease without esophagitis; E78.5 Hyperlipidemia, unspecified; Z87.891 Personal history of nicotine dependence; Z87.440 Personal history of urinary (tract) infections; Z95.0 Presence of cardiac pacemaker; Z79.01 Long term (current) use of anticoagulants; Z79.899 Other long term (current) drug therapy
CPT/HCPCS: 85610; 54001; 52310; J2250; J0330; J1100; J2405; J2001; J3010; J1580; J0290; J2704; J2371

== ENCOUNTER 2024-03-18 14:56 | Inpatient (IN) | payer MEDICARE, BC ==
--- NOTE | 2024-03-18 16:08 | ED ---
General Adult HPI - General Chief complaint: Nausea/Vomiting/Diarrhea Stated complaint: dehydration Time Seen by Provider: 03/18/24 15:40 Source: patient, EMS, RN notes reviewed, old records reviewed Mode of arrival: EMS Limitations: no limitations - History of Present Illness Initial comments: Patient is an 83-year-old male with past medical history remarkable for chronic debility as he is wheelchair-bound, atrial fibrillation with pacemaker on Coumadin, stones, on blood thinners who presents emergency department complaining of lower abdominal pain with diarrhea. This has been ongoing for the last 2 to 3 days. Also low-grade fevers at home for which he took Tylenol. Recently was discharged from his nursing facility to home. He has home health care. Patient has chronic debility. Presents with family for further evaluation.Patient has taken 1 dose of Keflex within the last month as he has PCP for antibiotics however no other antibiotics. Did have C. difficile during previous hospital admission for recurrent UTIs and kidney stones. States this pain is different. - Related Data Home Medications Medication Instructions Recorded Confirmed Acetaminophen [Tylenol] 1,000 mg PO Q6H PRN 05/30/21 03/18/24 atenoloL 25 mg PO BID 12/15/23 03/18/24 Ramelteon 8 mg PO HS 01/10/24 03/18/24 Lactobacillus Acidophilus 1 cap PO BID 01/15/24 03/18/24 [Acidophilus Probiotic] Cephalexin [Keflex] 250 mg PO TID 03/18/24 03/18/24 Furosemide [Lasix] 40 mg PO DAILY 03/18/24 03/18/24 Potassium Chloride ER [K-Dur 10] 10 meq PO DAILY 03/18/24 03/18/24 Warfarin Sodium 4 mg PO MOTUTHFR@209903/18/24 03/18/24 Warfarin [Coumadin] 3 mg PO SUWESA@209903/18/24 03/18/24 Previous Rx's Medication Instructions Recorded Sodium Bicarbonate Tab 650 mg PO BID tab 11/21/23 Albuterol Inhaler [Ventolin Hfa 2 puff INHALATION RT-Q6H PRN each 12/27/23 Inhaler] Allergies Allergy/AdvReac Type Severity Reaction Status Date / Time No Known Allergies Allergy Verified 03/18/24 16:33 Review of Systems ROS Statement: Those systems with pertinent positive or pertinent negative responses have been documented in the HPI. Review of Systems: CONST: Denies fever EYES: Denies blurry vision ENT: Denies nasal congestion C/V: Denies Chest pain RESP: Denies shortness of breath GI: Endorses lower abdominal pain : Denies dysuria SKIN: Denies rash. MSK: Denies joint pain. NEURO: Denies headache ROS Other: All systems not noted in ROS Statement are negative. Past Medical History Past Medical History: Atrial Fibrillation, Cancer, Heart Failure, CVA/TIA, GERD/Reflux, Hyperlipidemia, Hypertension, Prostate Disorder Additional Past Medical History / Comment(s): 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 dry skin on arms, numbness in last 2 fingers to left hand, kidney stone. History of Any Multi-Drug Resistant Organisms: C-DIFF, CRE Date of last positivie culture/infection: 01/11/24 C.diff MDRO Source:: Urine-CRE Past Surgical History: Cholecystectomy, Hernia Repair, Orthopedic Surgery, Pacemaker Additional Past Surgical History / Comment(s): cervical fusion, lithrotripsy, Past Anesthesia/Blood Transfusion Reactions: No Reported Reaction Additional Past Anesthesia/Blood Transfusion Reaction / Comment(s): Pt has never recieved blood. Type of Cardiac Device: Permanent Pacemaker Device Placement Date:: 2013 Past Psychological History: No Psychological Hx Reported Smoking Status: Former smoker Past Alcohol Use History: None Reported Past Drug Use History: None Reported - Past Family History Father Family Medical History: Diabetes Mellitus Mother Family Medical History: Osteoarthritis (OA) Additional Family Medical History / Comment(s): arthritis General Exam - General Exam Comments Initial Comments: General: Appears in no acute distress. HEAD: Normal with no signs of head trauma. EYES: PERRLA, EOMI, conjunctiva normal, no discharge. ENT: Hearing grossly intact, normal oropharynx. RESPIRATORY: Clear breath sounds bilaterally. No wheezes, rales, or rhonchi. C/V: Regular rate and rhythm. S1 and S2 auscultated, no edema, peripheral pulses 2+ and intact throughout ABD: Soft, nondistended. Tender palpation bilateral lower quadrants. No guarding or rebound tenderness. No peritoneal signs. EXT: Normal range of motion, no obvious deformity SKIN: No rashes or lesions observed on exposed skin. NEURO: Alert and oriented x 4. No focal new onset weakness or sensory deficits. Limitations: no limitations Course Vital Signs 03/18/24 03/18/24 03/18/24 15:00 16:13 17:17 Temperature 98.0 F Pulse Rate 51 L 59 L 56 L Respiratory 18 18 16 Rate Blood Pressure 92/56 83/47 70/39 O2 Sat by Pulse 94 L 95 93 L Oximetry 03/18/24 03/18/24 03/18/24 17:27 18:53 19:37 Temperature 98.6 F Pulse Rate 56 L 56 L Respiratory 18 18 Rate Blood Pressure 87/51 85/54 95/53 O2 Sat by Pulse 94 L 94 L Oximetry 03/18/24 03/18/24 19:57 20:40 Temperature 98.0 F Pulse Rate 71 61 Respiratory 18 Rate Blood Pressure 103/53 94/44 O2 Sat by Pulse 93 L 93 L Oximetry Medical Decision Making - Medical Decision Making Was pt. sent in by a medical professional or institution (, PA, CAREER COUNSELOR, urgent care, hospital, or alf...) When possible be specific @ -No Did you speak to anyone other than the patient for history (EMS, parent, family, police, friend...)? What history was obtained from this source @ -Patient's daughter helps with patient's past medical history including recent hospitalizations. Did you review nursing and triage notes (agree or disagree)? Why? @ -I reviewed and agree with nursing and triage notes Were old charts reviewed (outside hosp., previous admission, EMS record, old EKG, old radiological studies, urgent care reports/EKG's, alf records)? Report findings @ -Reviewed EKG from November 2023 of this year with no significant acute changes. Differential Diagnosis (chest pain, altered mental status, abdominal pain women, abdominal pain men, vaginal bleeding, weakness, fever, dyspnea, syncope, headache, dizziness, GI bleed, back pain, seizure, CVA, palpatations, mental health, musculoskeletal)? @ -Differential Abdominal Pain Men: Appendicitis, cholecystitis, diverticulosis, ischemic bowel, pancreatitis, hepatitis, UTI, gastroenteritis, AAA, incarcerated hernia, bowel obstruction, constipation, inflammatory bowel, hepatitis, peptic ulcer disease, splenic infarction, perforated viscus, testicular torsion, this is not meant to be an all-inclusive list EKG interpreted by me (3pts min.). @ -As above X-rays interpreted by me (1pt min.). @ -None done CT interpreted by me (1pt min.). @ -CT of the abdomen pelvis reveals nonobstructing kidney stones but no other obvious acute intra-abdominal process to explain the patient's symptoms. U/S interpreted by me (1pt. min.). @ -None done What testing was considered but not performed or refused? (CT, X-rays, U/S, labs)? Why? @ -None What meds were considered but not given or refused? Why? @ -None Did you discuss the management of the patient with other professionals (professionals i.e. , PA, CAREER COUNSELOR, lab, RT, psych nurse, child welfare social worker, lawyer criminal, teacher, ammunition officer, case manager specialist)? Give summary @ -No Was smoking cessation discussed for >3mins.? @ -No Was critical care preformed (if so, how long)? @ -yes, 36 minutes Were there social determinants of health that impacted care today? How? (Homelessness, low income, unemployed, alcoholism, drug addiction, transportation, low edu. Level, literacy, decrease access to med. care, long-term, rehab)? @ -No Was there de-escalation of care discussed even if they declined (Discuss DNR or withdrawal of care, Hospice)? DNR status @ -No What co-morbidities impacted this encounter? (DM, HTN, Smoking, COPD, CAD, Cancer, CVA, ARF, Chemo, Hep., AIDS, mental health diagnosis, sleep apnea, morbid obesity)? @ -Chronic debility Was patient admitted / discharged? Hospital course, mention meds given and route, prescriptions, significant lab abnormalities, going to OR and other pertinent info. @ -Patient presents for weakness, abdominal pain, and suspected dehydration. Has been having multiple episodes of nonbloody diarrhea over the last few days with lower abdominal pain. Has a history of kidney issues. Is chronically wheelchair-bound at baseline. Presents for further evaluation. Patient presents initially with softer blood pressures with blood pressure 92/56. He does clinically appear dehydrated. He will receive 2 L fluid bolus. We will obtain infectious screening and abdominal labs in addition to CT abdomen pelvis. Patient was in agreement this plan. He will be symptomatically treat with IV Zofran and Protonix. He declines analgesia medications at this time. Patient's laboratory studies remarkable for PARK and findings of dehydration with BUN of 27 and creatinine of 1.81. Patient has a leukocytosis of 20.8.Urine is still pending. CT imaging revealed no obvious acute process. Negative COVID, flu, RSV. Patient meets sepsis criteria at 1818 due to persistent mild borderline hypotension, with elevated leukocytosis. Multiple SIRS criteria. We will start the patient on broad-spectrum antibiotics, vancomycin, cefepime. Patient received 3 L fluid bolus and started on fluids. Blood culture obtained and sent. We will obtain urine analysis as well as urine culture as well. Patient's blood pressure did respond to the fluid boluses. Currently now is range between 95 and 103 systolic. Maps greater than 65. Will continue to monitor however patient requires admission at this time. Update the patient. I updated family. Patient will be admitted and stable condition at this time. I spoke with the admitting team, MARY Nair of [facility] who accepted the admission. Undiagnosed new problem with uncertain prognosis? @ -No Drug Therapy requiring intensive monitoring for toxicity (Heparin, Nitro, Insulin, Cardizem)? @ -No Were any procedures done? @ -No Diagnosis/symptom? @ -Sepsis of unknown source, dehydration, PARK, diarrhea Acute, or Chronic, or Acute on Chronic? @ -Acute Uncomplicated (without systemic symptoms) or Complicated (systemic symptoms)? @ -Complicated Side effects of treatment? @ -None Exacerbation, Progression, or Severe Exacerbation] @ -No Poses a threat to life or bodily function? @ -Yes - Lab Data Result diagrams: 03/18/24 16:11 03/18/24 16:11 Lab Results 03/18/24 03/18/24 03/18/24 Range/Units 16:11 16:11 16:11 WBC 20.8 H (3.8-10.6) k/uL RBC 4.41 (4.30-5.90) m/uL Hgb 12.7 L (13.0-17.5) gm/dL Hct 38.7 L (39.0-53.0) % MCV 87.9 (80.0-100.0) fL MCH 28.9 (25.0-35.0) pg MCHC 32.8 (31.0-37.0) g/dL RDW 15.7 H (11.5-15.5) % Plt Count 254 (150-450) k/uL MPV 7.8 Neutrophils % 89 % Lymphocytes % 2 % Monocytes % 7 % Eosinophils % 1 % Basophils % 0 % Neutrophils # 18.5 H (1.3-7.7) k/uL Lymphocytes # 0.5 L (1.0-4.8) k/uL Monocytes # 1.5 H (0-1.0) k/uL Eosinophils # 0.2 (0-0.7) k/uL Basophils # 0.1 (0-0.2) k/uL PT 19.4 H (10.0-12.5) sec INR 1.9 H (<1.2) APTT 29.9 (22.0-30.0) sec Sodium 135 L (137-145) mmol/L Potassium 3.9 (3.5-5.1) mmol/L Chloride 105 (98-107) mmol/L Carbon Dioxide 23 (22-30) mmol/L Anion Gap 7 mmol/L BUN 27 H (9-20) mg/dL Creatinine 1.81 H (0.66-1.25) mg/dL Est GFR (CKD-EPI)AfAm 39 (>60 ml/min/1.73 sqM) Est GFR (CKD-EPI)NonAf 34 (>60 ml/min/1.73 sqM) Glucose 89 (74-99) mg/dL Plasma Lactic Acid Yasir (0.7-2.0) mmol/L Calcium 8.0 L (8.4-10.2) mg/dL Total Bilirubin 1.2 (0.2-1.3) mg/dL AST 22 (17-59) U/L ALT 10 (4-49) U/L Alkaline Phosphatase 49 (38-126) U/L Total Protein 5.5 L (6.3-8.2) g/dL Albumin 2.9 L (3.5-5.0) g/dL Amylase <30 L (30-110) U/L Lipase 16 L (23-300) U/L Urine Color Urine Appearance (Clear) Urine pH (5.0-8.0) Ur Specific [place] (1.001-1.035) Urine Protein (Negative) Urine Glucose (UA) (Negative) Urine Ketones (Negative) Urine Blood (Negative) Urine Nitrite (Negative) Urine Bilirubin (Negative) Urine Urobilinogen (<2.0) mg/dL Ur Leukocyte Esterase (Negative) Urine RBC (0-5) /hpf Urine WBC (0-5) /hpf Urine WBC Clumps (None) /hpf Ur Squamous Epith Cells (0-4) /hpf Urine Bacteria (None) /hpf Urine Mucus (None) /hpf Influenza Type A (PCR) (Not Detectd) Influenza Type B (PCR) (Not Detectd) RSV (PCR) (Not Detectd) SARS-CoV-2 (PCR) (Not Detectd) 03/18/24 03/18/24 03/18/24 Range/Units 16:11 17:16 20:19 WBC (3.8-10.6) k/uL RBC (4.30-5.90) m/uL Hgb (13.0-17.5) gm/dL Hct (39.0-53.0) % MCV (80.0-100.0) fL MCH (25.0-35.0) pg MCHC (31.0-37.0) g/dL RDW (11.5-15.5) % Plt Count (150-450) k/uL MPV Neutrophils % % Lymphocytes % % Monocytes % % Eosinophils % % Basophils % % Neutrophils # (1.3-7.7) k/uL Lymphocytes # (1.0-4.8) k/uL Monocytes # (0-1.0) k/uL Eosinophils # (0-0.7) k/uL Basophils # (0-0.2) k/uL PT (10.0-12.5) sec INR (<1.2) APTT (22.0-30.0) sec Sodium (137-145) mmol/L Potassium (3.5-5.1) mmol/L Chloride (98-107) mmol/L Carbon Dioxide (22-30) mmol/L Anion Gap mmol/L BUN (9-20) mg/dL Creatinine (0.66-1.25) mg/dL Est GFR (CKD-EPI)AfAm (>60 ml/min/1.73 sqM) Est GFR (CKD-EPI)NonAf (>60 ml/min/1.73 sqM) Glucose (74-99) mg/dL Plasma Lactic Acid Yasir 1.8 (0.7-2.0) mmol/L Calcium (8.4-10.2) mg/dL Total Bilirubin (0.2-1.3) mg/dL AST (17-59) U/L ALT (4-49) U/L Alkaline Phosphatase (38-126) U/L Total Protein (6.3-8.2) g/dL Albumin (3.5-5.0) g/dL Amylase (30-110) U/L Lipase (23-300) U/L Urine Color Light Yellow Urine Appearance Cloudy (Clear) Urine pH 5.5 (5.0-8.0) Ur Specific [place] 1.011 (1.001-1.035) Urine Protein Trace H (Negative) Urine Glucose (UA) Negative (Negative) Urine Ketones Negative (Negative) Urine Blood Trace H (Negative) Urine Nitrite Negative (Negative) Urine Bilirubin Negative (Negative) Urine Urobilinogen <2.0 (<2.0) mg/dL Ur Leukocyte Esterase Large H (Negative) Urine RBC 4 (0-5) /hpf Urine WBC 169 H (0-5) /hpf Urine WBC Clumps Few H (None) /hpf Ur Squamous Epith Cells 1 (0-4) /hpf Urine Bacteria Many H (None) /hpf Urine Mucus Rare H (None) /hpf Influenza Type A (PCR) Not Detected (Not Detectd) Influenza Type B (PCR) Not Detected (Not Detectd) RSV (PCR) Not Detected (Not Detectd) SARS-CoV-2 (PCR) Not Detected (Not Detectd) Disposition Clinical Impression: Sepsis, PARK (acute kidney injury), Dehydration Disposition: ADMITTED IP TO THIS HOSP Condition: Stable Referrals: Celina Munoz MD [Primary Care Provider] - 1-2 days Time of Disposition: 20:00
[2024-03-18] MEDS: ONDANSETRON 4 MG/2 ML VIAL IVP STA (16:13)
[2024-03-18] MEDS: SODIUM CHLORIDE 0.9% 1,000 ML IV STA ×4 (16:13→20:44)
[2024-03-18] MEDS: PANTOPRAZOLE 40 MG/10 ML VIAL IVP STA (16:13)
[2024-03-18 16:34] LABS: Basophils # (A) 0.1 k/uL (0-0.2); Basophils % (A) 0 %; Eosinophils # (A) 0.2 k/uL (0-0.7); Eosinophils % (A) 1 %; HCT 38.7 % (39.0-53.0); HGB 12.7 gm/dL (13.0-17.5); Lymphocytes # (A) 0.5 k/uL (1.0-4.8); Lymphocytes % (A) 2 %; MCH 28.9 pg (25.0-35.0); MCHC 32.8 g/dL (31.0-37.0); MCV 87.9 fL (80.0-100.0); Mean Platelet Volume 7.8; Monocytes # (A) 1.5 k/uL (0-1.0); Monocytes % (A) 7 %; Neutrophils # (A) 18.5 k/uL (1.3-7.7); Neutrophils % (A) 89 %; Platelet Count 254 k/uL (150-450); RBC 4.41 m/uL (4.30-5.90); RDW 15.7 % (11.5-15.5); WBC 20.8 k/uL (3.8-10.6)
[2024-03-18 16:42] LABS: INR 1.9 (<1.2); Partial Thromboplastin Time 29.9 sec (22.0-30.0); Prothrombin Time 19.4 sec (10.0-12.5)
[2024-03-18 16:44] LABS: African American GFR (CKD) 39 (>60 ml/min/1.73 sqM); Anion Gap 7 mmol/L; Blood Urea Nitrogen 27 mg/dL (9-20); Carbon Dioxide 23 mmol/L (22-30); Chloride 105 mmol/L (98-107); Glucose 89 mg/dL (74-99); Non-African American GFR(CKD) 34 (>60 ml/min/1.73 sqM); Potassium 3.9 mmol/L (3.5-5.1); Sodium 135 mmol/L (137-145)
[2024-03-18 16:45] LABS: ALT 10 U/L (4-49); AST 22 U/L (17-59); Albumin 2.9 g/dL (3.5-5.0); Alkaline Phosphatase 49 U/L (38-126); Amylase <30 U/L (30-110); Lipase 16 U/L (23-300); Total Bilirubin 1.2 mg/dL (0.2-1.3); Total Protein 5.5 g/dL (6.3-8.2)
--- NOTE | 2024-03-18 18:16 | CT ---
EXAMINATION TYPE: CT abdomen pelvis wo con DATE OF EXAM: 03/18/2024 COMPARISON: 12/22/2023 INDICATION: Abdominal pain, diarrhea, weak DLP: 1477.9 mGycm, Automated exposure control for dose reduction was used. CONTRAST: 0 mL of Isovue 300. Study performed without Oral Contrast TECHNIQUE: Axial images were obtained from above the diaphragm to the pubic rami in the axial plane a t 5 mm thick sections. Reconstructed images are reviewed on the computer in the coronal plane. FINDINGS: Limited CT sections are obtained the lung bases. Small bilateral pleural effusions are present. Some minimal subsegmental atelectasis may be at the left lung base. There is a moderate pericardial effus ion.. CT ABDOMEN: Liver: Simple appearing left hepatic cysts are present. Spleen: Normal Pancreas: Normal Adrenal glands: The adrenal glands are normal. Gallbladder: Normal Kidneys: Previous left ureteral stent since been removed. Hydronephrosis has not reoccurred. No mary s are evident. Left kidney appears atrophic. No hydronephrosis is present. No cysts are present. M ultiple calcifications are within the mid inferior pole left kidney. No obstructing renal stones are identified. There is some mild prominence of the extrarenal pelvis on the left. A very tiny punctate partially obstructing distal ureteral stone at the left ureterovesical junction may be present, there is 201 image 86. No additional suspected renal and ureteral stones evident. Aorta: Vascular calcification is within the aorta. Inferior vena cava: Normal. CT PELVIS: Lateral portion of the pelvis is excluded from [id number]. Loops of bowel within the abdomen and pelvis are normal. Sigmoid diverticulosis without acute diverti culitis is present. There are loops of bowel which are incompletely distended or lack oral contras t limiting their evaluation. Appendix: Not identified. No dilated tubular structure or inflammatory changes evident. Urinary bladder: Normal. Genitourinary structures: Prostate appears normal in size. Osseous structures: No suspicious lytic or sclerotic lesions. IMPRESSION: 1. Nonobstructing mid to inferior pole left renal cortical calcifications. 2. Tiny punctate left ureterovesical junction calcification is not excluded. Some minimal left hydrou reter may be present. 3. No reoccurrence of prior left hydronephrosis. Extrarenal pelvis appears to be present. 4. Left renal atrophy. 5. Small bilateral pleural effusions. 6. Diverticulosis without acute diverticulitis.
[2024-03-18] MEDS ORDERED: VANCOMYCIN IV PER PHARMACY 1 EACH MISC MISCELLANE PRN (18:20)
[2024-03-18] MEDS: VANCOMYCIN 2,000 MG in SODIUM CHLORIDE 0.9% 500 ML 500 ML IVPB STA (19:35)
[2024-03-18] MEDS ORDERED: ALBUTEROL NEBULIZED 2.5 MG/3 ML INHALATION PRN (19:56)
[2024-03-18] MEDS: atenoloL 25 MG TAB PO SCH (20:34)
[2024-03-18] MEDS: WARFARIN 2 MG TAB PO ONE (20:34)
[2024-03-18] MEDS ORDERED: NALOXONE 0.4 MG/ML 1 ML VIAL IV PRN (20:37)
[2024-03-18] MEDS ORDERED: ONDANSETRON 4 MG/2 ML VIAL IVP PRN (20:37)
[2024-03-18 20:49] LABS: Appearance,Urine Cloudy (Clear); Bacteria,Urine Many /hpf; Bilirubin,Urine Negative (Negative); Blood,Urine Trace (Negative); Color,Urine Light Yellow; Glucose,Urine (UA) Negative (Negative); Ketones,Urine Negative (Negative); Leukocyte Esterase,Urine Large (Negative); Mucus,Urine Rare /hpf; Nitrite,Urine Negative (Negative); PH, Urine 5.5 (5.0-8.0); Protein,Urine Trace (Negative); RBC,Urine 4 /hpf (0-5); Specific Gravity,Urine 1.011 (1.001-1.035); Squamous Epithelial Cell,Urine 1 /hpf (0-4); Urobilinogen,Urine <2.0 mg/dL (<2.0); WBC,Urine 169 /hpf (0-5)
[2024-03-18] MEDS: CEFEPIME 2 GM in SODIUM CHLORIDE 0.9% 100 ML IVPB SCH (20:49)
[2024-03-19] MEDS: NOREPINEPHRINE 4 MG in SODIUM CHLORIDE 0.9% 250 ML IV SCH (04:23)
--- NOTE | 2024-03-19 04:32 | P.CNPUL ---
History of Present Illness Consult date: 03/19/24 Requesting physician: Vivek Pro Reason for consult: other (Sepsis septic shock, ICU management) Chief complaint: Generalized weakness and diarrhea History of present illness: I was called by the ER provider late last night, patient was profoundly hypotensive, and was fluid bolus with 3 L of normal saline. Despite this, remained hypotensive, and Dr. Pro felt the patient could benefit from ICU admission transfer with Levophed. Patient is an 83-year-old white male with past medical history significant for multiple chronic medical debilities including atrial fibrillation anticoagulated on Coumadin, pacemaker, heart failure with reduced ejection fraction, hypertension, hyperlipidemia, prostate cancer status post radiation therapy, chronic kidney disease, kidney stones with previous lithotripsy and ureteral stent, recurrent UTIs, C. difficile. [facility] He is currently living at home with home care. He has been progressively more weak. Over the last 24 hours he had recurrent bouts of diarrhea every 2-3 hours. Denies any noemi blood, melena. No nausea or vomiting. No significant abdominal pain. He does have some suprapubic fullness and discomfort. Reportedly recently treated for UTI. Denies any dysuria, hematuria, or flank p ain. Urinalysis concerning for UTI with many bacteria and leukocyte esterase. Patient currently covered on a combination of antibiotics including vancomycin and cefepime. CBC: WBC count 20.8, hemoglobin 12.7, hematocrit 38.7, platelets 254. INR 1.9. CMP: Sodium 135, potassium 3.9, chloride 105, serum bicarb 23, BUN 27, creatinine 1.81, glucose 89. Lactic 1.8. LFTs unremarkable. CT of the abdomen shows a nonobstructing mid to inferior pole left renal cortical calcification, some minimal left hydroureter may be present. Left renal atrophy. Small bilateral pleural effusions. Diverticulosis without acute diverticulitis. Negative for influenza, RSV, COVID. Patient is currently being evaluated in the emergency department. He is in no acute distress. Currently in the process of being started on norepinephrine infusion. Normal saline is infusing at 125 mL/h. He is alert and responds to my questioning. Currently afebrile. He will be transferred to the intensive care unit when bed available. Review of Systems REVIEW OF SYSTEMS: CONSTITUTIONAL: Denies any recent significant weight loss or weight gain. Admits generalized weakness. Unable to get out of bed with assistance from home care yesterday. EYES: Denies change in vision. EARS, NOSE, MOUTH, THROAT: Denies headaches, denies sore throat. CARDIOVASCULAR: Denies chest pain, palpitations or syncopal episodes. RESPIRATORY: Denies shortness of breath, cough, congestion or hemoptysis. GASTROINTESTINAL: Denies change in appetite, abdominal pain, nausea and vomiting. Does admit to frequent bouts of diarrhea as described in HPI. Denies melena or noemi blood loss. No nausea or vomiting or hematic emesis. GENITOURINARY: Admits history of frequent urinary tract infections. Admits suprapubic discomfort. Denies any dysuria, hematuria, or flank pain. MUSKULOSKELETAL: Denies pain, denies swelling. INTEGUMENTARY: Denies rash, denies eczema. NEUROLOGICAL: Denies recent memory loss, no recent seizure activity. PSYCHIATRIC: Denies anxiety, denies depression. HEMATOLOGIC/LYMPHATIC: Denies anemia, denies enlarged lymph node Past Medical History Past Medical History: Atrial Fibrillation, Cancer, Heart Failure, CVA/TIA, GERD/Reflux, Hyperlipidemia, Hypertension, Prostate Disorder Additional Past Medical History / Comment(s): 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 dry skin on arms, numbness in last 2 fingers to left hand, kidney stone. History of Any Multi-Drug Resistant Organisms: C-DIFF, CRE Date of last positivie culture/infection: 01/11/24 C.diff MDRO Source:: Urine-CRE Past Surgical History: Cholecystectomy, Hernia Repair, Orthopedic Surgery, Pacemaker Additional Past Surgical History / Comment(s): cervical fusion, lithrotripsy, Past Anesthesia/Blood Transfusion Reactions: No Reported Reaction Additional Past Anesthesia/Blood Transfusion Reaction / Comment(s): Pt has never recieved blood. Type of Cardiac Device: Permanent Pacemaker Device Placement Date:: 2013 Past Psychological History: No Psychological Hx Reported Smoking Status: Former smoker Past Alcohol Use History: None Reported Past Drug Use History: None Reported - Past Family History Father Family Medical History: Diabetes Mellitus Mother Family Medical History: Osteoarthritis (OA) Additional Family Medical History / Comment(s): arthritis Medications and Allergies Home Medications Medication Instructions Recorded Confirmed Type Acetaminophen [Tylenol] 1,000 mg PO Q6H PRN 05/30/21 03/18/24 History Sodium Bicarbonate Tab 650 mg PO BID tab 11/21/23 03/18/24 Rx atenoloL 25 mg PO BID 12/15/23 03/18/24 History Albuterol Inhaler [Ventolin Hfa 2 puff INHALATION RT-Q6H PRN each 12/27/23 03/18/24 Rx Inhaler] Ramelteon 8 mg PO HS 01/10/24 03/18/24 History Lactobacillus Acidophilus 1 cap PO BID 01/15/24 03/18/24 History [Acidophilus Probiotic] Cephalexin [Keflex] 250 mg PO TID 03/18/24 03/18/24 History Furosemide [Lasix] 40 mg PO DAILY 03/18/24 03/18/24 History Potassium Chloride ER [K-Dur 10] 10 meq PO DAILY 03/18/24 03/18/24 History Warfarin Sodium 4 mg PO MOTUTHFR@209903/18/24 03/18/24 History Warfarin [Coumadin] 3 mg PO SUWESA@2100 03/18/24 03/18/24 History Allergies Allergy/AdvReac Type Severity Reaction Status Date / Time No Known Allergies Allergy Verified 03/18/24 16:33 Physical Exam Vitals: Vital Signs Temp Pulse Resp BP Pulse Ox 03/18/24 21:40 98.0 F 76 18 95/40 94 L 03/18/24 21:27 97 03/18/24 21:13 65 18 103/86 90 L 03/18/24 20:50 92/66 03/18/24 20:40 61 94/44 93 L 03/18/24 19:57 98.0 F 71 18 103/53 93 L 03/18/24 19:37 98.6 F 56 L 18 95/53 94 L 03/18/24 18:53 56 L 18 85/54 94 L 03/18/24 17:27 87/51 03/18/24 17:17 56 L 16 70/39 93 L 03/18/24 16:13 59 L 18 83/47 95 03/18/24 15:00 98.0 F 51 L 18 92/56 94 L Intake and Output 03/18/24 03/18/24 03/19/24 14:59 22:59 06:59 Other: Weight 129.274 kg GENERAL EXAM: Fatigued, 83-year-old white male, generalized pallor and generally weak. Unable to sit up in bed without assistance. HEAD: Normocephalic and atraumatic EYES: Normal reaction of pupils, equal size. NOSE: Clear with pink turbinates. THROAT: No erythema or exudates. NECK: No masses, no JVD. CHEST: No chest wall deformity. LUNGS: Equal air entry with no crackles, wheeze, rhonchi or dullness. On 2 L/min nasal cannula. No conversational dyspnea or accessory muscle use.. CVS: S1 and S2 normal with no audible murmur, regular rhythm. No extra heart sounds ABDOMEN: No hepatosplenomegaly, active bowel sounds, no guarding or rigidity. SPINE: No scoliosis or deformity SKIN: Sacral stage II pressure injury. CENTRAL NERVOUS SYSTEM: No focal deficits, tone is normal in all 4 extremities. EXTREMITIES: There is bilateral lower extremity 1+ pitting edema. Clubbing, or cyanosis. Peripheral pulses are intact. Results - Laboratory Findings CBC and BMP: 03/18/24 16:11 03/18/24 16:11 PT/INR, D-dimer PT 19.4 sec (10.0-12.5) H 03/18/24 16:11 INR 1.9 (<1.2) H 03/18/24 16:11 Abnormal lab findings: Abnormal Labs 03/18/24 03/18/24 03/18/24 16:11 16:11 16:11 WBC 20.8 H Hgb 12.7 L Hct 38.7 L RDW 15.7 H Neutrophils # 18.5 H Lymphocytes # 0.5 L Monocytes # 1.5 H PT 19.4 H INR 1.9 H Sodium 135 L BUN 27 H Creatinine 1.81 H Calcium 8.0 L Total Protein 5.5 L Albumin 2.9 L Amylase <30 L Lipase 16 L Urine Protein Urine Blood Ur Leukocyte Esterase Urine WBC Urine WBC Clumps Urine Bacteria Urine Mucus 03/18/24 20:19 WBC Hgb Hct RDW Neutrophils # Lymphocytes # Monocytes # PT INR Sodium BUN Creatinine Calcium Total Protein Albumin Amylase Lipase Urine Protein Trace H Urine Blood Trace H Ur Leukocyte Esterase Large H Urine WBC 169 H Urine WBC Clumps Few H Urine Bacteria Many H Urine Mucus Rare H Assessment and Plan Assessment: Hypotension and shock, suspect septic shock, adequately fluid resuscitated and now requiring vasopressor in the form of norepinephrine. UTI and urosepsis Diarrhea, rule out C. difficile Diverticulosis without acute diverticulitis Nonobstructing left renal cortical calculi Acute leukocytosis Acute hypoxemic respiratory failure, currently on 2 L/min nasal cannula Acute on chronic kidney disease, secondary to severe dehydration, hypotension, and ATN History of heart failure with reduced ejection fraction Paroxysmal atrial fibrillation, anticoagulated on Coumadin Permanent pacemaker, currently V paced History of hypertension History of hyperlipidemia History of renal stones with previous lithotripsy History of prostate cancer status post radiation and TURP History of recurrent UTIs Obesity, with a BMI of 38.7 kg/m Patient's medications, labs, imaging reviewed Patient is going to be transferred to the intensive care unit Hypotension refractory to initial fluid resuscitation with a total of 3 L normal saline bolus, now being started on norepinephrine to maintain a MAP greater t meléndez 65 mmHg Currently being covered on broad-spectrum antibiotics in the form of cefepime and vancomycin. Urinalysis concerning for urinary tract infection, patient has history of recurrent urinary tract infections. Urine culture is ordered. Blood cultures pending. Rule out C. difficile Continue IV maintenance fluids Obtain chest x-ray Coumadin has been resumed, daily PT/INRs Protonix for GI prophylaxis We will continue to follow, and patient will be transferred to the intensive care unit once bed available. I have personally seen and examined the patient, performed the documentation and the assessment and plan as written. Number of minutes spent on the visit:20 Time with Patient: Greater than 30
[2024-03-19] MEDS: SODIUM CHLORIDE 0.9% 1,000 ML IV SCH (04:36)
--- NOTE | 2024-03-19 04:59 | XR ---
EXAMINATION TYPE: XR chest 1V portable DATE OF EXAM: 03/19/2024 CLINICAL HISTORY: Acute hypoxemic respiratory failure TECHNIQUE: Single frontal view of the chest is obtained. COMPARISON: Prior CT December 20, 2023 FINDINGS: There is persistent cardiomegaly with dual lead pacemaker. Persistent left basilar opacity . Entire right lung base is not included. Visualized Right lung is clear. Surgical change of cervica l spine is redemonstrated. IMPRESSION: Cardiomegaly redemonstrated. Persistent left basilar opacity could reflect scarring and/o r atelectasis.
[2024-03-19 06:08] LABS: Basophils % (A) 0 %; Eosinophils # (A) 0.2 k/uL (0-0.7); Eosinophils % (A) 1 %; HGB 12.6 gm/dL (13.0-17.5); Lymphocytes # (A) 0.5 k/uL (1.0-4.8); Lymphocytes % (A) 2 %; MCH 28.7 pg (25.0-35.0); MCHC 31.5 g/dL (31.0-37.0); MCV 91.1 fL (80.0-100.0); Monocytes # (A) 1.3 k/uL (0-1.0); Monocytes % (A) 6 %; Neutrophils % (A) 90 %; Platelet Count 264 k/uL (150-450); RBC 4.39 m/uL (4.30-5.90); RDW 15.8 % (11.5-15.5); WBC 22.3 k/uL (3.8-10.6)
[2024-03-19 06:19] LABS: INR 1.9 (<1.2)
[2024-03-19 06:22] LABS: ALT 9 U/L (4-49); AST 22 U/L (17-59); African American GFR (CKD) 41 (>60 ml/min/1.73 sqM); Albumin 2.8 g/dL (3.5-5.0); Alkaline Phosphatase 57 U/L (38-126); Anion Gap 7 mmol/L; Blood Urea Nitrogen 29 mg/dL (9-20); Calcium 7.8 mg/dL (8.4-10.2); Carbon Dioxide 20 mmol/L (22-30); Chloride 110 mmol/L (98-107); Glucose 93 mg/dL (74-99); Magnesium 1.8 mg/dL (1.6-2.3); Non-African American GFR(CKD) 36 (>60 ml/min/1.73 sqM); Sodium 137 mmol/L (137-145); Total Bilirubin 0.8 mg/dL (0.2-1.3); Total Protein 5.4 g/dL (6.3-8.2)
[2024-03-19] MEDS: FUROSEMIDE 40 MG TAB PO SCH (08:40)
[2024-03-19] MEDS: PANTOPRAZOLE 40 MG/10 ML VIAL IV SCH (09:15)
[2024-03-19] MEDS: POTASSIUM CHLORIDE ER 10 MEQ TAB.ER.PRT PO SCH (09:15)
[2024-03-19 13:16] LABS: Glucose,Whole Blood 127 mg/dL (70-110)
--- NOTE | 2024-03-19 15:59 | P.HPIM ---
History of Present Illness H&P Date: 03/19/24 This is a pleasant 83-year-old male who presented to the emergency department via EMS with lower abdominal pain along with significant diarrhea. Patient reports to having low-grade temps at home and was recently just discharged from [facility] 1 day prior and sent home. Patient does have home care in the outpatient setting due to chronic debility and has been progressively getting worse. Patient reports he is mostly wheelchair-bound and has significant weakness in the lower extremities. Patient reports he follows with Dr. Munoz in the outpatient setting with a past medical history of atrial fibrillation, on Coumadin, history of prostate cancer, heart failure, CVA/TIA, GERD, hyperlipidemia, hypertension, prostate disorder, recurrent UTIs with recent C. difficile and multiple resistance in the urine cultures along with kidney stones. Patient's daughter at the bedside reports he was recently hospitalized over the last few months for UTIs along with kidney stones and had urological procedures including lithotripsies x 2. Patient was admitted with fevers with concerns for sepsis, due to urinary tract infection, episodes of diarrhea and also requiring low-dose pressor support. Patient did undergo CT abdomen in the ER which showed nonobstructing mid to inferior pole left renal cortical calcifications, tiny punctate left ureteral vesicle junction calcification is not excluded some minimal left hydroureter may be present with no reoccurrence of prior left hydronephrosis, left renal atrophy, small bilateral pleural effusions with diverticulosis without diverticulitis. EKG showed electronic ventricular pacer heart rate at 74. Labs revealed a white count of 20.8, hemoglobin was stable at 12.7, platelets were 254, INR is 1.9, sodium 135, potassium 3.9, BUN 27, creatinine 1.81, lactic acid 1.8, magnesium 1.8, amylase less than 30, lipase 16 urinalysis revealed a trace of protein and a trace of blood otherwise large leukocytes 169 white count. Virology testing including i nfluenza, COVID, RSV were all negative. On admission to the ED patient did require 3 to 4 L of oxygen with multiple consultations placed on consult and possible ICU admission due to patient continuing to require pressor support. REVIEW OF SYSTEMS: CONSTITUTIONAL: No fever, no malaise, no fatigue. HEENT: No recent visual problems or hearing problems. Denied any sore throat. CARDIOVASCULAR: No chest pain, orthopnea, PND, no palpitations, no syncope. PULMONARY: Patient reports shortness of breath, no cough, no hemoptysis. GASTROINTESTINAL: Patient reports multiple episodes of diarrhea, reports nausea that has resolved, no vomiting, reports lower abdominal pain. NEUROLOGICAL: No headaches, no weakness, no numbness. HEMATOLOGICAL: Denies any bleeding or petechiae. GENITOURINARY: Denies any burning micturition, frequency, or urgency. Reports being incontinent and chronically MUSCULOSKELETAL/RHEUMATOLOGICAL: Denies any joint pain, swelling, or any muscle pain. ENDOCRINE: Denies any polyuria or polydipsia. The rest of the 14-point review of systems is negative. PHYSICAL EXAMINATION: GENERAL: The patient is alert and oriented x3, elderly appearing, ill-appearing Well developed, obese HEENT: Pupils are round and equally reacting to light. EOMI. No scleral icterus. No conjunctival pallor. Normocephalic, atraumatic. No pharyngeal erythema. No thyromegaly. CARDIOVASCULAR: S1 and S2 muffled PULMONARY: Diminished breath sounds bilaterally otherwise chest is clear to ausc ultation, no wheezing or crackles. ABDOMEN: Soft, obese nontender, nondistended, normoactive bowel sounds. No palpable organomegaly. MUSCULOSKELETAL: No joint swelling or deformity. EXTREMITIES: No cyanosis, clubbing, or pedal edema. Bilateral lower extremity swelling NEUROLOGICAL: Gross neurological examination did not reveal any focal deficits. Diffusely weak SKIN: No rashes. Assessment: Acute urinary tract infection with recurrent UTIs and concerns for urosepsis, present on admission requiring pressor support Leukocytosis with fever secondary to above Diarrhea and ongoing with recent history of C. difficile infection Generalized weakness and mostly wheelchair-bound, recently discharged from [facility] 1 day prior Acute hypoxic respiratory failure on admission secondary to sepsis Dehydration secondary to continuous multiple episodes of diarrhea Acute kidney injury with acute tubular necrosis, multifactorial likely secondary to diarrhea as well as severe dehydration and hypotension History of paroxysmal atrial fibrillation, maintained on Coumadin Hypertension history Hyperlipidemia history Frequent urinary tract infections and recently underwent lithotripsy x 2 for kidney stones Obesity with a BMI of 38.6 Plan: Patient is being admitted to the ICU as patient continues to require pressor support and currently weaning Patient on 2 to 3 L via nasal cannula weaning as tolerated recommend incentive spirometer and follow-up chest x-ray. Patient does not wear oxygen in the outpatient setting Patient maintained on cefepime and vancomycin and will consult infectious diseas e and appreciate input and recommendations as patient has had frequent urinary tract infections and also recommend urology consult as patient recently underwent lithotripsy Recommend case management/social work consult as well as PT/OT therapy. Patient was recently discharged from [facility] [address] Hoover and sent home with home care Follow-up labs ordered for a.m. Due to multiple complex medical issues, overall prognosis is guarded The impression and plan of care has been dictated by Eve Alexander, Nurse Practitioner as directed. Dr. Shayy MD I have performed a history and examination and MDM of this patient, discussed the same with the dictator, and agree with the dictator's assessment and plan as written ,documented as a scribe. Based on total visit time, I have performed more than 50% of the visit. Past Medical History Past Medical History: Atrial Fibrillation, Cancer, Heart Failure, CVA/TIA, GERD/Reflux, Hyperlipidemia, Hypertension, Prostate Disorder Additional Past Medical History / Comment(s): 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 dry skin on arms, numbness in last 2 fingers to left hand, kidney stone. History of Any Multi-Drug Resistant Organisms: C-DIFF, CRE Date of last positivie culture/infection: 01/11/24 C.diff MDRO Source:: Urine-CRE Past Surgical History: Cholecystectomy, Hernia Repair, Orthopedic Surgery, Pacemaker Additional Past Surgical History / Comment(s): cervical fusion, lithrotripsy, Past Anesthesia/Blood Transfusion Reactions: No Reported Reaction Additional Past Anesthesia/Blood Transfusion Reaction / Comment(s): Pt has never recieved blood. Type of Cardiac Device: Permanent Pacemaker Device Placement Date:: 2013 Past Psychological History: No Psychological Hx Reported Smoking Status: Former smoker Past Alcohol Use History: None Reported Past Drug Use History: None Reported - Past Family History Father Family Medical History: Diabetes Mellitus Mother Family Medical History: Osteoarthritis (OA) Additional Family Medical History / Comment(s): arthritis Medications and Allergies Home Medications Medication Instructions Recorded Confirmed Type Acetaminophen [Tylenol] 1,000 mg PO Q6H PRN 05/30/21 03/18/24 History Sodium Bicarbonate Tab 650 mg PO BID tab 11/21/23 03/18/24 Rx atenoloL 25 mg PO BID 12/15/23 03/18/24 History Albuterol Inhaler [Ventolin Hfa 2 puff INHALATION RT-Q6H PRN each 12/27/23 Rx Inhaler] Ramelteon 8 mg PO HS 01/10/24 03/18/24 History Lactobacillus Acidophilus 1 cap PO BID 01/15/24 03/18/24 History [Acidophilus Probiotic] Cephalexin [Keflex] 250 mg PO TID 03/18/24 03/18/24 History Furosemide [Lasix] 40 mg PO DAILY 03/18/24 03/18/24 History Potassium Chloride ER [K-Dur 10] 10 meq PO DAILY 03/18/24 03/18/24 History Warfarin Sodium 4 mg PO MOTUTHFR@209903/18/24 03/18/24 History Warfarin [Coumadin] 3 mg PO SUWESA@209903/18/24 03/18/24 History Allergies Allergy/AdvReac Type Severity Reaction Status Date / Time No Known Allergies Allergy Verified 03/18/24 16:33 Physical Exam Vitals: Vital Signs Temp Pulse Resp BP Pulse Ox 03/19/24 09:00 68 18 126/64 94 L 03/19/24 08:49 98 03/19/24 08:00 66 16 141/64 97 03/19/24 07:33 98.6 F 61 18 131/66 96 03/19/24 06:27 63 18 123/59 96 03/19/24 06:00 106/51 03/19/24 05:30 91/58 03/19/24 04:52 98.3 F 60 18 103/55 95 03/18/24 21:40 98.0 F 76 18 95/40 94 L 03/18/24 21:27 97 03/18/24 21:13 65 18 103/86 90 L 03/18/24 20:50 92/66 03/18/24 20:40 61 94/44 93 L 03/18/24 19:57 98.0 F 71 18 103/53 93 L 03/18/24 19:37 98.6 F 56 L 18 95/53 94 L 03/18/24 18:53 56 L 18 85/54 94 L 03/18/24 17:27 87/51 03/18/24 17:17 56 L 16 70/39 93 L 03/18/24 16:13 59 L 18 83/47 95 03/18/24 15:00 98.0 F 51 L 18 92/56 94 L Intake and Output 03/18/24 03/19/24 03/19/24 22:59 06:59 14:59 Intake Total 55.820 49.910 Balance 55.820 49.910 Intake: Intake, IV Titration 55.820 49.910 Amount Norepinephrine 4 mg In 55.820 49.910 Sodium Chloride 0.9% 250 ml @ 0.03 MCG/KG/MIN 14. 776 mls/hr IV .[id number] [facility] Rx#:[id number] Other: Weight 129.274 kg Results CBC & Chem 7: 03/19/24 05:53 03/19/24 05:53 Labs: Abnormal Lab Results - Last 24 Hours (Table) 03/18/24 03/18/24 03/18/24 Range/Units 16:11 16:11 16:11 WBC 20.8 H (3.8-10.6) k/uL Hgb 12.7 L (13.0-17.5) gm/dL Hct 38.7 L (39.0-53.0) % RDW 15.7 H (11.5-15.5) % Neutrophils # 18.5 H (1.3-7.7) k/uL Lymphocytes # 0.5 L (1.0-4.8) k/uL Monocytes # 1.5 H (0-1.0) k/uL PT 19.4 H (10.0-12.5) sec INR 1.9 H (<1.2) Sodium 135 L (137-145) mmol/L Chloride (98-107) mmol/L Carbon Dioxide (22-30) mmol/L BUN 27 H (9-20) mg/dL Creatinine 1.81 H (0.66-1.25) mg/dL Calcium 8.0 L (8.4-10.2) mg/dL Total Protein 5.5 L (6.3-8.2) g/dL Albumin 2.9 L (3.5-5.0) g/dL Amylase <30 L (30-110) U/L Lipase 16 L (23-300) U/L Urine Protein (Negative) Urine Blood (Negative) Ur Leukocyte Esterase (Negative) Urine WBC (0-5) /hpf Urine WBC Clumps (None) /hpf Urine Bacteria (None) /hpf Urine Mucus (None) /hpf 03/18/24 03/19/24 03/19/24 Range/Units 20:19 05:53 05:53 WBC 22.3 H (3.8-10.6) k/uL Hgb 12.6 L (13.0-17.5) gm/dL Hct (39.0-53.0) % RDW 15.8 H (11.5-15.5) % Neutrophils # 20.0 H (1.3-7.7) k/uL Lymphocytes # 0.5 L (1.0-4.8) k/uL Monocytes # 1.3 H (0-1.0) k/uL PT 19.0 H (10.0-12.5) sec INR 1.9 H (<1.2) Sodium (137-145) mmol/L Chloride (98-107) mmol/L Carbon Dioxide (22-30) mmol/L BUN (9-20) mg/dL Creatinine (0.66-1.25) mg/dL Calcium (8.4-10.2) mg/dL Total Protein (6.3-8.2) g/dL Albumin (3.5-5.0) g/dL Amylase (30-110) U/L Lipase (23-300) U/L Urine Protein Trace H (Negative) Urine Blood Trace H (Negative) Ur Leukocyte Esterase Large H (Negative) Urine WBC 169 H (0-5) /hpf Urine WBC Clumps Few H (None) /hpf Urine Bacteria Many H (None) /hpf Urine Mucus Rare H (None) /hpf 03/19/24 Range/Units 05:53 WBC (3.8-10.6) k/uL Hgb (13.0-17.5) gm/dL Hct (39.0-53.0) % RDW (11.5-15.5) % Neutrophils # (1.3-7.7) k/uL Lymphocytes # (1.0-4.8) k/uL Monocytes # (0-1.0) k/uL PT (10.0-12.5) sec INR (<1.2) Sodium (137-145) mmol/L Chloride 110 H (98-107) mmol/L Carbon Dioxide 20 L (22-30) mmol/L BUN 29 H (9-20) mg/dL Creatinine 1.73 H (0.66-1.25) mg/dL Calcium 7.8 L (8.4-10.2) mg/dL Total Protein 5.4 L (6.3-8.2) g/dL Albumin 2.8 L (3.5-5.0) g/dL Amylase (30-110) U/L Lipase (23-300) U/L Urine Protein (Negative) Urine Blood (Negative) Ur Leukocyte Esterase (Negative) Urine WBC (0-5) /hpf Urine WBC Clumps (None) /hpf Urine Bacteria (None) /hpf Urine Mucus (None) /hpf
[2024-03-19 18:39] LABS: Glucose,Whole Blood 147 mg/dL (70-110)
[2024-03-19] MEDS: VANCOMYCIN 2,000 MG in SODIUM CHLORIDE 0.9% 500 ML 500 ML IVPB SCH (19:15)
[2024-03-19] MEDS: ZINC OXIDE PASTE (Z-GUARD) 1 APPLIC TOPICAL PRN (19:25)
--- NOTE | 2024-03-19 21:32 | P.CONS ---
History of Present Illness - Reason for Consult Consult date: 03/19/24 UTI with sepsis and septic shock Requesting physician: Eve Alexander - Chief Complaint Abdominal pain and diarrhea x 3 days - History of Present Illness Patient is a 83-year-old male with a past medical history significant for hypertension hyperlipidemia prostate cancer atrial fibrillation CVA TIA, C. difficile colitis patient was brought into the hospital for evaluation of lower abdominal pain and diarrhea and this patient symptom has been going on for about 3 days before presentation to the hospital and the patient also have a low-grade fever at home and this patient has been recently discharged from the long term patient on presentation to the hospital was afebrile and no fever have been recorded subsequently patient was nontachycardic or hypoxic patient was hypotensive requiring fluid and pressor support and did have a white count of 20,000 subsequently up to 22.3 with a left shift BUN/creatinine has been elevated liver isms are normal urine has been positive patient did tested negative for influenza RSV and COVID patient was started on cefepime and IV vancomycin admitted to hospital infectious disease was consulted for further management of antibiotic therapy, patient has been complaining of generalized weakness low energy lower abdominal pain is mostly crampy moderate intensity without radiation with associated diarrhea multiple loose stool denies any blood or mucus in the stool some weight urinary symptoms Review of Systems Positive point and negatives has been mentioned in the HPI, complete review of systems was performed and all other systems are negative Past Medical History Past Medical History: Atrial Fibrillation, Cancer, Heart Failure, CVA/TIA, GE RD/Reflux, Hyperlipidemia, Hypertension, Prostate Disorder Additional Past Medical History / Comment(s): 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 dry skin on arms, numbness in last 2 fingers to left hand, kidney stone. History of Any Multi-Drug Resistant Organisms: C-DIFF, CRE Year Discovered:: 01/11/24 C.diff MDRO Source:: Urine-CRE Past Surgical History: Cholecystectomy, Hernia Repair, Orthopedic Surgery, Pacemaker Additional Past Surgical History / Comment(s): cervical fusion, lithrotripsy, Past Anesthesia/Blood Transfusion Reactions: No Reported Reaction Additional Past Anesthesia/Blood Transfusion Reaction / Comm: Pt has never recieved blood. Type of Cardiac Device: Permanent Pacemaker Device Placement Date:: 2013 Past Psychological History: No Psychological Hx Reported Smoking Status: Former smoker Past Alcohol Use History: None Reported Past Drug Use History: None Reported - Past Family History Father Family Medical History: Diabetes Mellitus Mother Family Medical History: Osteoarthritis (OA) Additional Family Medical History / Comment(s): arthritis Medications and Allergies Home Medications Medication Instructions Recorded Confirmed Type Acetaminophen [Tylenol] 1,000 mg PO Q6H PRN 05/30/21 03/18/24 History Sodium Bicarbonate Tab 650 mg PO BID tab 11/21/23 03/18/24 Rx atenoloL 25 mg PO BID 12/15/23 03/18/24 History Albuterol Inhaler [Ventolin Hfa 2 puff INHALATION RT-Q6H PRN each 12/27/23 03/18/24 Rx Inhaler] Ramelteon 8 mg PO HS 01/10/24 03/18/24 History Lactobacillus Acidophilus 1 cap PO BID 01/15/24 03/18/24 History [Acidophilus Probiotic] Cephalexin [Keflex] 250 mg PO TID 03/18/24 03/18/24 History Furosemide [Lasix] 40 mg PO DAILY 03/18/24 03/18/24 History Potassium Chloride ER [K-Dur 10] 10 meq PO DAILY 03/18/24 03/18/24 History Warfarin Sodium 4 mg PO MOTUTHFR@2100 03/18/24 03/18/24 History Warfarin [Coumadin] 3 mg PO SUWESA@2100 03/18/24 03/18/24 History Allergies Allergy/AdvReac Type Severity Reaction Status Date / Time No Known Allergies Allergy Verified 03/18/24 16:33 Physical Exam Vitals: Vital Signs Temp Pulse Resp BP Pulse Ox 03/19/24 10:15 60 18 121/51 96 03/19/24 09:00 68 18 126/64 94 L 03/19/24 08:49 98 03/19/24 08:00 66 16 141/64 97 03/19/24 07:33 98.6 F 61 18 131/66 96 03/19/24 06:27 63 18 123/59 96 03/19/24 06:00 106/51 03/19/24 05:30 91/58 03/19/24 04:52 98.3 F 60 18 103/55 95 03/18/24 21:40 98.0 F 76 18 95/40 94 L 03/18/24 21:27 97 03/18/24 21:13 65 18 103/86 90 L 03/18/24 20:50 92/66 03/18/24 20:40 61 94/44 93 L 03/18/24 19:57 98.0 F 71 18 103/53 93 L 03/18/24 19:37 98.6 F 56 L 18 95/53 94 L 03/18/24 18:53 56 L 18 85/54 94 L 03/18/24 17:27 87/51 03/18/24 17:17 56 L 16 70/39 93 L 03/18/24 16:13 59 L 18 83/47 95 03/18/24 15:00 98.0 F 51 L 18 92/56 94 L Intake and Output 03/18/24 03/19/24 03/19/24 22:59 06:59 14:59 Intake Total 55.820 49.910 Balance 55.820 49.910 Intake: Intake, IV Titration 55.820 49.910 Amount Norepinephrine 4 mg In 55.820 49.910 Sodium Chloride 0.9% 250 ml @ 0.03 MCG/KG/MIN 14. 776 mls/hr IV .[id number] [facility] Rx#:[id number] Other: Weight 129.274 kg GENERAL DESCRIPTION: Elderly male lying in bed, no distress. No tachypnea or accessory muscle of respiration use. HEENT: Shows Pallor , no scleral icterus. Oral mucous membrane is dry. No pharyngeal erythema or thrush NECK: Trachea central, no thyromegaly. LUNGS: Unlabored breathing. Clear to auscultation anteriorly. No wheeze or crackle. HEART: S1, S2, regular rate and rhythm. No loud murmur ABDOMEN: Soft, no tenderness , guarding or rigidity, no organomegaly EXTREMITIES: No edema of feet. SKIN: No rash, no masses palpable. NEUROLOGICAL: The patient is awake, alert, oriented x3, mood and affect normal. Results CBC & Chem 7: 03/19/24 05:53 03/19/24 05:53 Labs: Abnormal Lab Results - Last 24 Hours (Table) 03/18/24 03/18/24 03/18/24 Range/Units 16:11 16:11 16:11 WBC 20.8 H (3.8-10.6) k/uL Hgb 12.7 L (13.0-17.5) gm/dL Hct 38.7 L (39.0-53.0) % RDW 15.7 H (11.5-15.5) % Neutrophils # 18.5 H (1.3-7.7) k/uL Lymphocytes # 0.5 L (1.0-4.8) k/uL Monocytes # 1.5 H (0-1.0) k/uL PT 19.4 H (10.0-12.5) sec INR 1.9 H (<1.2) Sodium 135 L (137-145) mmol/L Chloride (98-107) mmol/L Carbon Dioxide (22-30) mmol/L BUN 27 H (9-20) mg/dL Creatinine 1.81 H (0.66-1.25) mg/dL Calcium 8.0 L (8.4-10.2) mg/dL Total Protein 5.5 L (6.3-8.2) g/dL Albumin 2.9 L (3.5-5.0) g/dL Amylase <30 L (30-110) U/L Lipase 16 L (23-300) U/L Urine Protein (Negative) Urine Blood (Negative) Ur Leukocyte Esterase (Negative) Urine WBC (0-5) /hpf Urine WBC Clumps (None) /hpf Urine Bacteria (None) /hpf Urine Mucus (None) /hpf 03/18/24 03/19/24 03/19/24 Range/Units 20:19 05:53 05:53 WBC 22.3 H (3.8-10.6) k/uL Hgb 12.6 L (13.0-17.5) gm/dL Hct (39.0-53.0) % RDW 15.8 H (11.5-15.5) % Neutrophils # 20.0 H (1.3-7.7) k/uL Lymphocytes # 0.5 L (1.0-4.8) k/uL Monocytes # 1.3 H (0-1.0) k/uL PT 19.0 H (10.0-12.5) sec INR 1.9 H (<1.2) Sodium (137-145) mmol/L Chloride (98-107) mmol/L Carbon Dioxide (22-30) mmol/L BUN (9-20) mg/dL Creatinine (0.66-1.25) mg/dL Calcium (8.4-10.2) mg/dL Total Protein (6.3-8.2) g/dL Albumin (3.5-5.0) g/dL Amylase (30-110) U/L Lipase (23-300) U/L Urine Protein Trace H (Negative) Urine Blood Trace H (Negative) Ur Leukocyte Esterase Large H (Negative) Urine WBC 169 H (0-5) /hpf Urine WBC Clumps Few H (None) /hpf Urine Bacteria Many H (None) /hpf Urine Mucus Rare H (None) /hpf 03/19/24 Range/Units 05:53 WBC (3.8-10.6) k/uL Hgb (13.0-17.5) gm/dL Hct (39.0-53.0) % RDW (11.5-15.5) % Neutrophils # (1.3-7.7) k/uL Lymphocytes # (1.0-4.8) k/uL Monocytes # (0-1.0) k/uL PT (10.0-12.5) sec INR (<1.2) Sodium (137-145) mmol/L Chloride 110 H (98-107) mmol/L Carbon Dioxide 20 L (22-30) mmol/L BUN 29 H (9-20) mg/dL Creatinine 1.73 H (0.66-1.25) mg/dL Calcium 7.8 L (8.4-10.2) mg/dL Total Protein 5.4 L (6.3-8.2) g/dL Albumin 2.8 L (3.5-5.0) g/dL Amylase (30-110) U/L Lipase (23-300) U/L Urine Protein (Negative) Urine Blood (Negative) Ur Leukocyte Esterase (Negative) Urine WBC (0-5) /hpf Urine WBC Clumps (None) /hpf Urine Bacteria (None) /hpf Urine Mucus (None) /hpf Assessment and Plan (1) C. difficile colitis Current Visit: Yes Status: Acute Code(s): A04.72 - ENTEROCOLITIS D/T CLOSTRIDIUM DIFFICILE, NOT SPCF RECUR SNOMED Code(s): 123650272 (2) Sepsis Current Visit: Yes Status: Acute Code(s): A41.9 - SEPSIS, UNSPECIFIED ORGANISM SNOMED Code(s): 74099437 (3) Leukocytosis Current Visit: No Status: Acute Code(s): D72.829 - ELEVATED WHITE BLOOD CELL COUNT, UNSPECIFIED SNOMED Code(s): 905812072 (4) UTI (urinary tract infection) Current Visit: No Status: Acute Code(s): N39.0 - URINARY TRACT INFECTION, SITE NOT SPECIFIED SNOMED Code(s): 82049059 Plan: 1patient presenting to the hospital with weakness lower abdominal pain and diarrhea in this patient who did have a history of C. difficile colitis high clinical suspicious for C. difficile colitis patient also have a positive UA and some urinary symptoms underlying UTI from enteric gram-negative nontender surgery patient did have features of sepsis with hypotension elevated white count meeting criteria. for SIRS. 2-patient to continue cefepime while waiting for the culture to finalize 3-discontinue IV vancomycin 4-start the patient on oral vancomycin pending finalization of the stool for C. difficile We will follow on clinical condition and cultures to further adjust medication if needed Thank you for this consultation we will follow the patient along with you Dictation was produced using [employer] dictation software. please excuse any grammatical, word or spelling errors. Time with Patient: Greater than 30
[2024-03-19] MEDS: WARFARIN 2 MG TAB PO SCH (21:55)
[2024-03-19] MEDS: NYSTATIN 100,000 UNIT/GM POWD 15 GM TOPICAL SCH (21:55)
[2024-03-19] MEDS: VANCOMYCIN 125 MG CAPSULE PO SCH (22:57)
[2024-03-20 09:21] LABS: Basophils % (A) 0 %; Eosinophils # (A) 0.1 k/uL (0-0.7); Eosinophils % (A) 0 %; HCT 37.8 % (39.0-53.0); Lymphocytes # (A) 0.5 k/uL (1.0-4.8); Lymphocytes % (A) 3 %; MCHC 31.7 g/dL (31.0-37.0); MCV 91.4 fL (80.0-100.0); Mean Platelet Volume 8.2; Monocytes # (A) 1.1 k/uL (0-1.0); Monocytes % (A) 6 %; Neutrophils # (A) 14.5 k/uL (1.3-7.7); Neutrophils % (A) 89 %; Platelet Count 261 k/uL (150-450); RBC 4.13 m/uL (4.30-5.90); RDW 15.8 % (11.5-15.5); WBC 16.3 k/uL (3.8-10.6)
[2024-03-20 09:33] LABS: INR 2.2 (<1.2); Prothrombin Time 22.4 sec (10.0-12.5)
[2024-03-20 09:44] LABS: African American GFR (CKD) 45 (>60 ml/min/1.73 sqM); Anion Gap 6 mmol/L; Blood Urea Nitrogen 26 mg/dL (9-20); Calcium 7.8 mg/dL (8.4-10.2); Carbon Dioxide 20 mmol/L (22-30); Chloride 111 mmol/L (98-107); Glucose 107 mg/dL (74-99); Non-African American GFR(CKD) 39 (>60 ml/min/1.73 sqM); Potassium 3.7 mmol/L (3.5-5.1); Sodium 137 mmol/L (137-145)
--- NOTE | 2024-03-20 12:10 | CDI ---
Documentation Clarification Form Date: 03/20/2024 11:47:10 AM From: Shaneka Soriano Phone: [phone] Admit Date: 03/18/2024 08:37:00 PM Patient Name: Santosh Melton Visit Number: [id number] Discharge Date: ATTENTION: The Clinical Documentation Specialists (CDI) and [facility] Coding Staff appreciate your assistance in clarifying documentation. Please respond to the clarification below the line at the bottom and electronically sign. The CDI & [facility] Coding staff will review the response and follow-up if needed. Please note: Queries are made part of the Legal Health Record. If you have any questions, please contact the author of this message via ITS. Eve VERA There is documentation in the H/P patient admitted with fevers with, due to urinary tract infection concerns for sepsis. The assessment has acute urinary tract infection with recurrent UTIs and concern for urosepsis, present on admission. Additional clarification is requested. History/Risk Factors: Atrial Fibrillation, Cancer, Heart Failure, CVA/TIA, GERD/Reflux, Hyperlipidemia, Hypertension, Prostate Disorder Clinical Indicators: 83-year-old male with complaints of lower abdominal pain and significant diarrhea. VS 93/56 51 18 98.0 94% RA 83/47 59 18 95% RA Labs WBC 20.8 NA 135 BUN 27 CR 1.81 UA Large Leukocyte Esterase Treatment: ICU/Telemetry monitoring Levophed Drip per orders Cefepime HCL 2 gm IVPB Q 12 Vancomycin Hcl 2,000MG IVPB Once then, PTD Can you please further clarify urosepsis? [ x] Acute UTI with Sepsis present on admission [ ] Other, please specify [ ] Unable to determine (Template Last Revised: September 2020) MTDD
--- NOTE | 2024-03-20 12:12 | P.PN ---
Subjective Progress Note Date: 03/20/24 Principal diagnosis: Reason for follow-up is sepsis and C. difficile colitis Patient is a 83-year-old male with a past medical history significant for hypertension hyperlipidemia prostate cancer atrial fibrillation CVA TIA, C. difficile colitis patient was brought into the hospital for evaluation of lower abdominal pain and diarrhea, patient was diagnosed with sepsis with initial admission to the ICU subsequently has been transferred to the telemetry floor. Patient did test positive for C. difficile. On today's evaluation that is 03/20/2024, Patient is afebrile this morning patient denies having any chest pain shortness of breath or cough, the patient is breathing comfortably and currently on room air, patient denies any abdominal pain no nausea or vomiting still having diarrhea with the fecal management system. Patient white count is down to 16.3, creatinine is 1.61 Objective - Vital Signs Vital signs: Vital Signs Temp 98.6 F 03/20/24 08:31 Pulse 62 03/20/24 08:31 Resp 18 03/20/24 08:31 BP 119/63 03/20/24 08:31 Pulse Ox 96 03/20/24 08:32 FiO2 Intake & Output 03/19/24 03/20/24 03/20/24 18:59 06:59 18:59 Intake Total 4107.892 900 360 Output Total 675 100 650 Balance 3432.892 800 -290 Weight 129.092 kg 131 kg Intake: IV 3720 900 Cefepime 2 gm In Sodium 100 100 Chloride 0.9% 100 ml @ 25 mls/hr IVPB Q12H [facility] Rx# :[id number] Invasive Line 2 20 Sodium Chloride 0.9% 1, 600 300 000 ml @ 100 mls/hr IV . Q10H [facility] Rx#:[id number] Sodium Chloride 0.9% 1, 1000 000 ml @ 999 mls/hr IV . Q1H1M [facility] Rx#:[id number] Sodium Chloride 0.9% 1, 1000 000 ml @ 999 mls/hr IV . Q1H1M [facility] Rx#:[id number] Sodium Chloride 0.9% 1, 1000 000 ml @ 999 mls/hr IV . Q1H1M [facility] Rx#:[id number] Vancomycin 2,000 mg In 500 Sodium Chloride 0.9% 500 ml 500 ml @ 167 mls/hr IVPB ONCE [facility] Rx#: [id number] Intake, IV Titration 127.892 Amount Norepinephrine 4 mg In 127.892 Sodium Chloride 0.9% 250 ml @ 0.03 MCG/KG/MIN 14. 776 mls/hr IV .[id number] [facility] Rx#:[id number] Oral 260 360 Output: Urine 675 100 650 Other: Voiding Method Indwelling Catheter Indwelling Catheter # Bowel Movements 1 1 - Exam GENERAL DESCRIPTION: An elderly male lying in bed in no distress RESPIRATORY SYSTEM: Unlabored breathing , decreased breath sounds at bases HEART: S1 S2 regular rate and rhythm , ABDOMEN: Soft , no tenderness EXTREMITIES: No edema feet - Labs CBC & Chem 7: 03/20/24 08:35 03/20/24 08:35 Labs: Abnormal Lab Results - Last 24 Hours (Table) 03/19/24 03/19/24 03/19/24 Range/Units 11:52 13:14 18:33 WBC (3.8-10.6) k/uL RBC (4.30-5.90) m/uL Hgb (13.0-17.5) gm/dL Hct (39.0-53.0) % RDW (11.5-15.5) % Neutrophils # (1.3-7.7) k/uL Lymphocytes # (1.0-4.8) k/uL Monocytes # (0-1.0) k/uL PT (10.0-12.5) sec INR (<1.2) Chloride (98-107) mmol/L Carbon Dioxide (22-30) mmol/L BUN (9-20) mg/dL Creatinine (0.66-1.25) mg/dL Glucose (74-99) mg/dL POC Glucose (mg/dL) 127 H 147 H (70-110) mg/dL Calcium (8.4-10.2) mg/dL C. difficile (EIA) Intrp Positive A (Negative) 03/20/24 03/20/24 03/20/24 Range/Units 08:35 08:35 08:35 WBC 16.3 H (3.8-10.6) k/uL RBC 4.13 L (4.30-5.90) m/uL Hgb 12.0 L (13.0-17.5) gm/dL Hct 37.8 L (39.0-53.0) % RDW 15.8 H (11.5-15.5) % Neutrophils # 14.5 H (1.3-7.7) k/uL Lymphocytes # 0.5 L (1.0-4.8) k/uL Monocytes # 1.1 H (0-1.0) k/uL PT 22.4 H (10.0-12.5) sec INR 2.2 H (<1.2) Chloride 111 H (98-107) mmol/L Carbon Dioxide 20 L (22-30) mmol/L BUN 26 H (9-20) mg/dL Creatinine 1.61 H (0.66-1.25) mg/dL Glucose 107 H (74-99) mg/dL POC Glucose (mg/dL) (70-110) mg/dL Calcium 7.8 L (8.4-10.2) mg/dL C. difficile (EIA) Intrp (Negative) Assessment and Plan (1) C. difficile colitis Current Visit: Yes Status: Acute Code(s): A04.72 - ENTEROCOLITIS D/T CLOSTRIDIUM DIFFICILE, NOT SPCF RECUR SNOMED Code(s): 263225633 (2) Sepsis Current Visit: Yes Status: Acute Code(s): A41.9 - SEPSIS, UNSPECIFIED OR GANISM SNOMED Code(s): 02397037 (3) Leukocytosis Current Visit: No Status: Acute Code(s): D72.829 - ELEVATED WHITE BLOOD CELL COUNT, UNSPECIFIED SNOMED Code(s): 145805792 (4) UTI (urinary tract infection) Current Visit: No Status: Acute Code(s): N39.0 - URINARY TRACT INFECTION, SITE NOT SPECIFIED SNOMED Code(s): 89561313 Plan: 1patient presenting to the hospital with weakness lower abdominal pain and diarrhea in this patient who did have a history of C. difficile colitis high clinical suspicious for C. difficile colitis patient also have a positive UA however no significant urinary symptoms except some retention on admission clinically doubt symptomatic UTI and will discontinue cefepime keeping in mind active C. difficile colitis 2-we will continue patient on oral vancomycin add Questran for symptomatic relief Daughter at the bedside questions were answered Dictation was produced using [employer] software. please excuse any grammatical, word or spelling errors. Time with Patient: Less than 30
--- NOTE | 2024-03-20 13:06 | P.PN ---
Subjective Progress Note Date: 03/20/24 Principal diagnosis: Sepsis. I was called by the ER provider late last night, patient was profoundly hypotensive, and was fluid bolus with 3 L of normal saline. Despite this, rem ained hypotensive, and Dr. Pro felt the patient could benefit from ICU admission transfer with Levophed. Patient is an 83-year-old white male with past medical history significant for multiple chronic medical debilities including atrial fibrillation anticoagulated on Coumadin, pacemaker, heart failure with reduced ejection fraction, hypertension, hyperlipidemia, prostate cancer status post radiation therapy, chronic kidney disease, kidney stones with previous lithotripsy and ureteral stent, recurrent UTIs, C. difficile. Patient was recently discharged from an [facility]. He is currently living at home with home care. He has been progressively more weak. Over the last 24 hours he had recurrent bouts of diarrhea every 2-3 hours. Denies any noemi blood, melena. No nausea or vomiting. No significant abdominal pain. He does have some suprapubic fullness and discomfort. Reportedly recently treated for UTI. Denies any dysuria, hematuria, or flank pain. Urinalysis concerning for UTI with many bacteria and leukocyte esterase. Patient currently covered on a combination of antibiotics including vancomycin and cefepime. CBC: WBC count 20.8, hemoglobin 12.7, hematocrit 38.7, platelets 254. INR 1.9. CMP: Sodium 135, potassium 3.9, chloride 105, serum bicarb 23, BUN 27, creatinine 1.81, glucose 89. Lactic 1.8. LFTs unremarkable. CT of the abdomen shows a nonobstructing mid to inferior pole left renal cortical calcification, some minimal left hydroureter may be present. Left renal atrophy. Small bilateral pleural effusions. Diverticulosis without acute diverticulitis. Negative for influenza, RSV, COVID. Patient is currently being evaluated in the emergency department. He is in no acute distress. Currently in the process of being started on norepinephrine infusion. Normal saline is infusing at 125 mL/h. He is alert and responds to my questioning. Currently afebrile. He will be transferred to the intensive care unit when bed available. Progress note dated March 20, 2024. 83-year-old male who was admitted with a diagnosis of sepsis, from a urinary source, and also, C. difficile colitis. The patient was seen by my nurse practitioner initially. Today, he is seen in room 360. His daughter is in the room with him. He is currently on room air. He is receiving cefepime IV, and oral vancomycin. He is getting saline at 100 cc an hour. Clinically, he appears to be doing better. As soon as he arrived to the ICU, on norepinephrine, Though Nurses Were Able to Shut It off. White count 16.3, hemoglobin 12, hematocrit 37.8, and platelet count 261,000. PT 22.4, INR 2.2, sodium 137, potassium 3.7, chlorides 111, CO2 20, BUN 26, and creatinine 1.61. Calcium is 7.8. Objective - Vital Signs Vital signs: Vital Signs Temp 98.3 F 03/20/24 12:00 Pulse 61 03/20/24 12:00 Resp 18 03/20/24 12:00 BP 126/71 03/20/24 12:00 Pulse Ox 97 03/20/24 12:00 FiO2 Intake & Output 03/19/24 03/20/24 03/20/24 18:59 06:59 18:59 Intake Total 4107.892 900 370 Output Total 675 100 650 Balance 3432.892 800 -280 Weight 129.092 kg 131 kg Intake: IV 3720 900 10 Cefepime 2 gm In Sodium 100 100 Chloride 0.9% 100 ml @ 25 mls/hr IVPB Q12H [facility] Rx# :[id number] Invasive Line 2 20 10 Sodium Chloride 0.9% 1, 600 300 000 ml @ 100 mls/hr IV . Q10H [facility] Rx#:[id number] Sodium Chloride 0.9% 1, 1000 000 ml @ 999 mls/hr IV . Q1H1M [facility] Rx#:[id number] Sodium Chloride 0.9% 1, 1000 000 ml @ 999 mls/hr IV . Q1H1M [facility] Rx#:[id number] Sodium Chloride 0.9% 1, 1000 000 ml @ 999 mls/hr IV . Q1H1M [facility] Rx#:[id number] Vancomycin 2,000 mg In 500 Sodium Chloride 0.9% 500 ml 500 ml @ 167 mls/hr IVPB ONCE STA Rx#: [id number] Intake, IV Titration 127.892 Amount Norepinephrine 4 mg In 127.892 Sodium Chloride 0.9% 250 ml @ 0.03 MCG/KG/MIN 14. 776 mls/hr IV .[id number] [facility] Rx#:[id number] Oral 260 360 Output: Urine 675 100 650 Other: Voiding Method Indwelling Catheter Indwelling Catheter # Bowel Movements 1 1 - Exam No acute distress, oriented 3. No respiratory distress. Currently on room air. HEENT examination is grossly unremarkable. Mucous membranes are moist. No oral lesions. Neck supple. Full range of motion. No adenopathy thyromegaly or neck vein distention. Cardiovascular examination reveals regular rhythm rate. S1-S2 normal. No S3 or S4. No discernible murmur noted. Lungs reveal clear breath sounds. Breath sounds are equal bilaterally. No adventitious lung sounds including wheezes rhonchi or crackles. Abdomen soft bowel sounds are heard. No masses or tenderness. Extremities are intact. No cyanosis or clubbing. Mild edema present. Skin is without rash or lesion. Neurologic examination is brief but nonfocal. - Labs CBC & Chem 7: 03/20/24 08:35 03/20/24 08:35 Labs: Abnormal Lab Results - Last 24 Hours (Table) 03/19/24 03/19/24 03/19/24 Range/Units 11:52 13:14 18:33 WBC (3.8-10.6) k/uL RBC (4.30-5.90) m/uL Hgb (13.0-17.5) gm/dL Hct (39.0-53.0) % RDW (11.5-15.5) % Neutrophils # (1.3-7.7) k/uL Lymphocytes # (1.0-4.8) k/uL Monocytes # (0-1.0) k/uL PT (10.0-12.5) sec INR (<1.2) Chloride (98-107) mmol/L Carbon Dioxide (22-30) mmol/L BUN (9-20) mg/dL Creatinine (0.66-1.25) mg/dL Glucose (74-99) mg/dL POC Glucose (mg/dL) 127 H 147 H (70-110) mg/dL Calcium (8.4-10.2) mg/dL C. difficile (EIA) Intrp Positive A (Negative) 03/20/24 03/20/24 03/20/24 Range/Units 08:35 08:35 08:35 WBC 16.3 H (3.8-10.6) k/uL RBC 4.13 L (4.30-5.90) m/uL Hgb 12.0 L (13.0-17.5) gm/dL Hct 37.8 L (39.0-53.0) % RDW 15.8 H (11.5-15.5) % Neutrophils # 14.5 H (1.3-7.7) k/uL Lymphocytes # 0.5 L (1.0-4.8) k/uL Monocytes # 1.1 H (0-1.0) k/uL PT 22.4 H (10.0-12.5) sec INR 2.2 H (<1.2) Chloride 111 H (98-107) mmol/L Carbon Dioxide 20 L (22-30) mmol/L BUN 26 H (9-20) mg/dL Creatinine 1.61 H (0.66-1.25) mg/dL Glucose 107 H (74-99) mg/dL POC Glucose (mg/dL) (70-110) mg/dL Calcium 7.8 L (8.4-10.2) mg/dL C. difficile (EIA) Intrp (Negative) Assessment and Plan Assessment: Hypotension and shock, suspect septic shock. UTI and urosepsis. Diarrhea, secondary to C. difficile colitis. Diverticulosis without acute diverticulitis. Nonobstructing left renal cortical calculi. Acute leukocytosis. Acute on chronic kidney disease, secondary to severe dehydration, hypotension, and ATN. History of heart failure with reduced ejection fraction. Paroxysmal atrial fibrillation. Permanent pacemaker, currently V paced. History of hypertension. History of hyperlipidemia. History of renal stones with previous lithotripsy. History of prostate cancer status post radiation and TURP. History of recurrent UTIs. Obesity, with a BMI of 38.7 kg/m. Plan: Plan dated March 20, 2024. The patient is seen today in room 360. The patient is on room air. He has no respiratory issues at this time. His daughter is in the room with him. The patient was initially in the intensive care unit, because of hypotension. The nurses were able to discontinue the norepinephrine, pretty much after he arrived to the unit, within a few minutes. The patient was transferred out of the intensive care unit yesterday. He is currently on cefepime IV for his urinary tract infection/urosepsis, and is receiving oral vancomycin for his C. difficile colitis. We will continue to follow. Prognosis is guarded. No additional r ecommendations are made. Time with Patient: Less than 30
[2024-03-20] MEDS: CHOLESTYRAMINE (WITH SUGAR) 4 GM PACKET PO SCH (16:04)
--- NOTE | 2024-03-20 17:04 | P.PN ---
Subjective Progress Note Date: 03/20/24 83-year-old male who presented to the emergency department via EMS with lower abdominal pain along with significant diarrhea. Patient reports to having low- grade temps at home and was recently just discharged from [facility] 1 day prior and sent home. Patient does have home care in the outpatient setting due to chronic debility and has been progressively getting worse. Patient reports he is mostly wheelchair-bound and has significant weakness in the lower extremities. Patient reports he follows with Dr. Munoz in the outpatient setting with a past medical history of atrial fibrillation, on Coumadin, history of prostate cancer, heart failure, CVA/TIA, GERD, hyperlipidemia, hypertension, prostate disorder, recurrent UTIs with recent C. difficile and multiple resistance in the urine cultures along with kidney stones. Patient's daughter at the bedside reports he was recently hospitalized over the last few months for UTIs along with kidney stones and had urological procedures including lithotri psies x 2. Patient was admitted with fevers with concerns for sepsis, due to urinary tract infection, episodes of diarrhea and also requiring low-dose pressor support. Patient did undergo CT abdomen in the ER which showed nonobstructing mid to inferior pole left renal cortical calcifications, tiny punctate left ureteral vesicle junction calcification is not excluded some minimal left hydroureter may be present with no reoccurrence of prior left hydronephrosis, left renal atrophy, small bilateral pleural effusions with diverticulosis without diverticulitis. EKG showed electronic ventricular pacer heart rate at 74. Labs revealed a white count of 20.8, hemoglobin was stable at 12.7, platelets were 254, INR is 1.9, sodium 135, potassium 3.9, BUN 27, creatinine 1.81, lactic acid 1.8, magnesium 1.8, amylase less than 30, lipase 16 urinalysis revealed a trace of protein and a trace of blood otherwise large leukocytes 169 white count. Virology testing including influenza, COVID, RSV were all negative. On admission to the ED patient did require 3 to 4 L of oxygen with multiple consultations placed on consult and possible ICU admission due to patient continuing to require pressor support. Objective - Vital Signs Vital signs: Vital Signs Temp 98.3 F 03/20/24 12:00 Pulse 61 03/20/24 12:00 Resp 18 03/20/24 12:00 BP 126/71 03/20/24 12:00 Pulse Ox 97 03/20/24 12:00 FiO2 Intake & Output 03/19/24 03/20/24 03/20/24 18:59 06:59 18:59 Intake Total 4107.892 900 360 Output Total 675 100 650 Balance 3432.892 800 -290 Weight 129.092 kg 131 kg Intake: IV 3720 900 Cefepime 2 gm In Sodium 100 100 Chloride 0.9% 100 ml @ 25 mls/hr IVPB Q12H [facility] Rx# :[id number] Invasive Line 2 20 Sodium Chloride 0.9% 1, 600 300 000 ml @ 100 mls/hr IV . Q10H [facility] Rx#:[id number] Sodium Chloride 0.9% 1, 1000 000 ml @ 999 mls/hr IV . Q1H1M [facility] Rx#:[id number] Sodium Chloride 0.9% 1, 1000 000 ml @ 999 mls/hr IV . Q1H1M [facility] Rx#:[id number] Sodium Chloride 0.9% 1, 1000 000 ml @ 999 mls/hr IV . Q1H1M [facility] Rx#:[id number] Vancomycin 2,000 mg In 500 Sodium Chloride 0.9% 500 ml 500 ml @ 167 mls/hr IVPB ONCE STA Rx#: [id number] Intake, IV Titration 127.892 Amount Norepinephrine 4 mg In 127.892 Sodium Chloride 0.9% 250 ml @ 0.03 MCG/KG/MIN 14. 776 mls/hr IV .[id number] [facility] Rx#:[id number] Oral 260 360 Output: Urine 675 100 650 Other: Voiding Method Indwelling Catheter Indwelling Catheter # Bowel Movements 1 1 - Exam GENERAL: The patient is alert and oriented x3, elderly appearing, ill-appearing Well developed, obese HEENT: Pupils are round and equally reacting to light. EOMI. No scleral icterus. No conjunctival pallor. Normocephalic, atraumatic. No pharyngeal erythema. No thyromegaly. CARDIOVASCULAR: S1 and S2 muffled PULMONARY: Diminished breath sounds bilaterally otherwise chest is clear to auscultation, no wheezing or crackles. ABDOMEN: Soft, obese nontender, nondistended, normoactive bowel sounds. No palpable organomegaly. MUSCULOSKELETAL: No joint swelling or deformity. EXTREMITIES: No cyanosis, clubbing, or pedal edema. Bilateral lower extremity swelling NEUROLOGICAL: Gross neurological examination did not reveal any focal deficits. Diffusely weak SKIN: No rashes. - Labs CBC & Chem 7: 03/20/24 08:35 03/20/24 08:35 Labs: Abnormal Lab Results - Last 24 Hours (Table) 03/19/24 03/19/24 03/19/24 Range/Units 11:52 13:14 18:33 WBC (3.8-10.6) k/uL RBC (4.30-5.90) m/uL Hgb (13.0-17.5) gm/dL Hct (39.0-53.0) % RDW (11.5-15.5) % Neutrophils # (1.3-7.7) k/uL Lymphocytes # (1.0-4.8) k/uL Monocytes # (0-1.0) k/uL PT (10.0-12.5) sec INR (<1.2) Chloride (98-107) mmol/L Carbon Dioxide (22-30) mmol/L BUN (9-20) mg/dL Creatinine (0.66-1.25) mg/dL Glucose (74-99) mg/dL POC Glucose (mg/dL) 127 H 147 H (70-110) mg/dL Calcium (8.4-10.2) mg/dL C. difficile (EIA) Intrp Positive A (Negative) 03/20/24 03/20/24 03/20/24 Range/Units 08:35 08:35 08:35 WBC 16.3 H (3.8-10.6) k/uL RBC 4.13 L (4.30-5.90) m/uL Hgb 12.0 L (13.0-17.5) gm/dL Hct 37.8 L (39.0-53.0) % RDW 15.8 H (11.5-15.5) % Neutrophils # 14.5 H (1.3-7.7) k/uL Lymphocytes # 0.5 L (1.0-4.8) k/uL Monocytes # 1.1 H (0-1.0) k/uL PT 22.4 H (10.0-12.5) sec INR 2.2 H (<1.2) Chloride 111 H (98-107) mmol/L Carbon Dioxide 20 L (22-30) mmol/L BUN 26 H (9-20) mg/dL Creatinine 1.61 H (0.66-1.25) mg/dL Glucose 107 H (74-99) mg/dL POC Glucose (mg/dL) (70-110) mg/dL Calcium 7.8 L (8.4-10.2) mg/dL C. difficile (EIA) Intrp (Negative) Assessment and Plan Assessment: Acute urinary tract infection with recurrent UTIs and concerns for urosepsis, present on admission requiring pressor support Leukocytosis with fever secondary to above Diarrhea and ongoing with recent history of C. difficile infection Generalized weakness and mostly wheelchair-bound, recently discharged from [facility] 1 day prior Acute hypoxic respiratory failure on admission secondary to sepsis Dehydration secondary to continuous multiple episodes of diarrhea Acute kidney injury with acute tubular necrosis, multifactorial likely secondary to diarrhea as well as severe dehydration and hypotension History of paroxysmal atrial fibrillation, maintained on Coumadin Hypertension history Hyperlipidemia history Frequent urinary tract infections and recently underwent lithotripsy x 2 for kidney stones Obesity with a BMI of 38.6 Plan: Patient is being admitted to the ICU as patient continues to require pressor support and currently weaning Patient on 2 to 3 L via nasal cannula weaning as tolerated recommend incentive spirometer and follow-up chest x-ray. Patient does not wear oxygen in the outpatient setting Patient maintained on cefepime and vancomycin and will consult infectious disease and appreciate input and recommendations as patient has had frequent urinary tract infections and also recommend urology consult as patient recently underwent lithotripsy Recommend case management/social work consult as well as PT/OT therapy. Patient was recently discharged from [facility] [address] Hoover and sent home with home care Follow-up labs ordered for a.m. Due to multiple complex medical issues, overall prognosis is guarded
[2024-03-20] MEDS: ACETAMINOPHEN TAB 325 MG TAB PO PRN (21:32)
[2024-03-21 10:04] LABS: INR 3.1 (<1.2); Prothrombin Time 30.1 sec (10.0-12.5)
[2024-03-21 10:06] LABS: Basophils % (A) 0 %; Eosinophils # (A) 0.1 k/uL (0-0.7); Eosinophils % (A) 1 %; HCT 40.6 % (39.0-53.0); HGB 12.6 gm/dL (13.0-17.5); Hypochromasia Slight; Lymphocytes # (A) 0.6 k/uL (1.0-4.8); Lymphocytes % (A) 4 %; MCH 28.3 pg (25.0-35.0); MCV 91.2 fL (80.0-100.0); Mean Platelet Volume 8.9; Monocytes # (A) 0.9 k/uL (0-1.0); Monocytes % (A) 6 %; Neutrophils # (A) 12.2 k/uL (1.3-7.7); Neutrophils % (A) 88 %; Platelet Count 283 k/uL (150-450); RBC 4.45 m/uL (4.30-5.90); RDW 15.6 % (11.5-15.5)
[2024-03-21 10:16] LABS: African American GFR (CKD) 53 (>60 ml/min/1.73 sqM); Anion Gap 5 mmol/L; Blood Urea Nitrogen 25 mg/dL (9-20); Calcium 8.2 mg/dL (8.4-10.2); Carbon Dioxide 22 mmol/L (22-30); Chloride 110 mmol/L (98-107); Glucose 76 mg/dL (74-99); Non-African American GFR(CKD) 46 (>60 ml/min/1.73 sqM); Potassium 3.5 mmol/L (3.5-5.1); Sodium 137 mmol/L (137-145)
--- NOTE | 2024-03-21 11:03 | P.PN ---
Subjective Progress Note Date: 03/21/24 Principal diagnosis: Sepsis. I was called by the ER provider late last night, patient was profoundly hypotensive, and was fluid bolus with 3 L of normal saline. Despite this, rem ained hypotensive, and Dr. Pro felt the patient could benefit from ICU admission transfer with Levophed. Patient is an 83-year-old white male with past medical history significant for multiple chronic medical debilities including atrial fibrillation anticoagulated on Coumadin, pacemaker, heart failure with reduced ejection fraction, hypertension, hyperlipidemia, prostate cancer status post radiation therapy, chronic kidney disease, kidney stones with previous lithotripsy and ureteral stent, recurrent UTIs, C. difficile. Patient was recently discharged from an [facility]. He is currently living at home with home care. He has been progressively more weak. Over the last 24 hours he had recurrent bouts of diarrhea every 2-3 hours. Denies any noemi blood, melena. No nausea or vomiting. No significant abdominal pain. He does have some suprapubic fullness and discomfort. Reportedly recently treated for UTI. Denies any dysuria, hematuria, or flank pain. Urinalysis concerning for UTI with many bacteria and leukocyte esterase. Patient currently covered on a combination of antibiotics including vancomycin and cefepime. CBC: WBC count 20.8, hemoglobin 12.7, hematocrit 38.7, platelets 254. INR 1.9. CMP: Sodium 135, potassium 3.9, chloride 105, serum bicarb 23, BUN 27, creatinine 1.81, glucose 89. Lactic 1.8. LFTs unremarkable. CT of the abdomen shows a nonobstructing mid to inferior pole left renal cortical calcification, some minimal left hydroureter may be present. Left renal atrophy. Small bilateral pleural effusions. Diverticulosis without acute diverticulitis. Negative for influenza, RSV, COVID. Patient is currently being evaluated in the emergency department. He is in no acute distress. Currently in the process of being started on norepinephrine infusion. Normal saline is infusing at 125 mL/h. He is alert and responds to my questioning. Currently afebrile. He will be transferred to the intensive care unit when bed available. Progress note dated March 20, 2024. 83-year-old male who was admitted with a diagnosis of sepsis, from a urinary source, and also, C. difficile colitis. The patient was seen by my nurse practitioner initially. Today, he is seen in room 360. His daughter is in the room with him. He is currently on room air. He is receiving cefepime IV, and oral vancomycin. He is getting saline at 100 cc an hour. Clinically, he appears to be doing better. As soon as he arrived to the ICU, on norepinephrine, Though Nurses Were Able to Shut It off. White count 16.3, hemoglobin 12, hematocrit 37.8, and platelet count 261,000. PT 22.4, INR 2.2, sodium 137, potassium 3.7, chlorides 111, CO2 20, BUN 26, and creatinine 1.61. Calcium is 7.8. Progress note dated March 21, 2024. 83-year-old male seen today in room 360. The patient is on room air. He is not receiving any IV fluid. The patient did test positive for C. difficile colitis, and is on oral vancomycin. Yesterday he was on cefepime IV for possible UTI. White count was 14, hemoglobin 12.6, hematocrit 40.6, and platelet count 283,000. PTT was 30.1 with an INR 3.1. Sodium 137, potassium 3.5, chlorides 110, CO2 22, BUN 25, creatinine 1.42. Calcium was 8.2. Objective - Vital Signs Vital signs: Vital Signs Temp 97.8 F 03/20/24 20:43 Pulse 62 03/21/24 03:30 Resp 14 03/21/24 03:30 BP 120/70 03/21/24 03:30 Pulse Ox 96 03/21/24 03:30 FiO2 Intake & Output 03/20/24 03/21/24 03/21/24 18:59 06:59 18:59 Intake Total 850 10 Output Total 1600 950 Balance -750 -940 Weight 131 kg 134.5 kg Intake: IV 10 10 Invasive Line 2 10 10 Oral 840 Output: Urine 1600 950 Other: Voiding Method Indwelling Catheter # Bowel Movements 3 - Exam No acute distress, oriented 3. No respiratory distress. Currently on room air. HEENT examination is grossly unremarkable. Mucous membranes are moist. No oral lesions. Neck supple. Full range of motion. No adenopathy thyromegaly or neck vein distention. Cardiovascular examination reveals regular rhythm rate. S1-S2 normal. No S3 or S4. No discernible murmur noted. Lungs reveal clear breath sounds. Breath sounds are equal bilaterally. No adventitious lung sounds including wheezes rhonchi or crackles. Abdomen soft bowel sounds are heard. No masses or tenderness. Extremities are intact. No cyanosis or clubbing. Mild edema present. Skin is without rash or lesion. Neurologic examination is brief but nonfocal. - Labs CBC & Chem 7: 03/21/24 08:47 03/21/24 08:47 Labs: Abnormal Lab Results - Last 24 Hours (Table) 03/21/24 03/21/24 03/21/24 Range/Units 08:47 08:47 08:47 WBC 14.0 H (3.8-10.6) k/uL Hgb 12.6 L (13.0-17.5) gm/dL RDW 15.6 H (11.5-15.5) % Neutrophils # 12.2 H (1.3-7.7) k/uL Lymphocytes # 0.6 L (1.0-4.8) k/uL PT 30.1 H (10.0-12.5) sec INR 3.1 H (<1.2) Chloride 110 H (98-107) mmol/L BUN 25 H (9-20) mg/dL Creatinine 1.42 H (0.66-1.25) mg/dL Calcium 8.2 L (8.4-10.2) mg/dL Microbiology - Last 24 Hours (Table) 03/19/24 16:40 Urine Culture - Final Urine,Catheterized 03/18/24 19:25 Blood Culture - Preliminary Blood Assessment and Plan Assessment: Hypotension and shock, suspect septic shock. Suspected UTI and urosepsis, not proven. Diarrhea, secondary to C. difficile colitis. Diverticulosis without acute diverticulitis. Nonobstructing left renal cortical calculi. Acute leukocytosis. Acute on chronic kidney disease, secondary to severe dehydration, hypotension, and ATN. History of heart failure with reduced ejection fraction. Paroxysmal atrial fibrillation. Permanent pacemaker, currently V paced. History of hypertension. History of hyperlipidemia. History of renal stones with previous lithotripsy. History of prostate cancer status post radiation and TURP. History of recurrent UTIs. Obesity, with a BMI of 38.7 kg/m. Plan: Plan dated March 20, 2024. The patient is seen today in room 360. The patient is on room air. He has no respiratory issues at this time. His daughter is in the room with him. The patient was initially in the intensive care unit, because of hypotension. The nurses were able to discontinue the norepinephrine, pretty much after he arrived to the unit, within a few minutes. The patient was transferred out of the intensive care unit yesterday. He is currently on cefepime IV for his urinary tract infection/urosepsis, and is receiving oral vancomycin for his C. difficile colitis. We will continue to follow. Prognosis is guarded. No additional recommendations are made. Plan dated March 21, 2024. The patient was initially seen in the intensive care unit, for hypotension. The patient was initially on some norepinephrine at 0.4 mcg/kg/min. As soon as the patient arrived to the intensive care unit, the nurses were able to discontinue the norepinephrine. The patient was on cefepime and oral vancomycin yesterday. He continues on oral vancomycin today, for C. difficile colitis. Labs, x-rays, and medications are reviewed. We will see the patient will be for only as needed. No additional recommendations are made. Time with Patient: Less than 30
[2024-03-21] MEDS ORDERED: VANCOMYCIN TROUGH DUE 1 EACH MISC MISCELLANE ONE (18:00)
[2024-03-21] MEDS: WARFARIN 2.5 MG TAB PO ONE (18:13)
--- NOTE | 2024-03-21 19:04 | P.PN ---
Subjective Progress Note Date: 03/21/24 Principal diagnosis: Reason for follow-up is sepsis and C. difficile colitis Patient is a 83-year-old male with a past medical history significant for hypertension hyperlipidemia prostate cancer atrial fibrillation CVA TIA, C. difficile colitis patient was brought into the hospital for evaluation of lower abdominal pain and diarrhea, patient was diagnosed with sepsis with initial admission to the ICU subsequently has been transferred to the telemetry floor. Patient did test positive for C. difficile. On today's evaluation that is 03/21/2024,the patient denies any fever or any chills, patient is breathing comfortably on room air, the patient denies chest pain shortness of breath and no significant cough, patient abdominal pain has decreased intensity diarrhea has slowed down fecal management system has come out. Met for the patient white count is down to 14,000, creatinine is 1.42 Objective - Vital Signs Vital signs: Vital Signs Temp 97.8 F 03/20/24 20:43 Pulse 62 03/21/24 03:30 Resp 14 03/21/24 03:30 BP 120/70 03/21/24 03:30 Pulse Ox 96 03/21/24 03:30 FiO2 Intake & Output 03/20/24 03/21/24 03/21/24 18:59 06:59 18:59 Intake Total 850 10 Output Total 1600 950 Balance -750 -940 Weight 131 kg 134.5 kg Intake: IV 10 10 Invasive Line 2 10 10 Oral 840 Output: Urine 1600 950 Other: Voiding Method Indwelling Catheter # Bowel Movements 3 - Exam GENERAL DESCRIPTION: An elderly male lying in bed in no distress RESPIRATORY SYSTEM: Unlabored breathing , decreased breath sounds at bases HEART: S1 S2 regular rate and rhythm , ABDOMEN: Soft , no tenderness EXTREMITIES: No edema feet - Labs CBC & Chem 7: 03/21/24 08:47 03/21/24 08:47 Labs: Abnormal Lab Results - Last 24 Hours (Table) 03/20/24 03/20/24 03/20/24 Range/Units 08:35 08:35 08:35 WBC 16.3 H (3.8-10.6) k/uL RBC 4.13 L (4.30-5.90) m/uL Hgb 12.0 L (13.0-17.5) gm/dL Hct 37.8 L (39.0-53.0) % RDW 15.8 H (11.5-15.5) % Neutrophils # 14.5 H (1.3-7.7) k/uL Lymphocytes # 0.5 L (1.0-4.8) k/uL Monocytes # 1.1 H (0-1.0) k/uL PT 22.4 H (10.0-12.5) sec INR 2.2 H (<1.2) Chloride 111 H (98-107) mmol/L Carbon Dioxide 20 L (22-30) mmol/L BUN 26 H (9-20) mg/dL Creatinine 1.61 H (0.66-1.25) mg/dL Glucose 107 H (74-99) mg/dL Calcium 7.8 L (8.4-10.2) mg/dL Microbiology - Last 24 Hours (Table) 03/19/24 16:40 Urine Culture - Final Urine,Catheterized 03/18/24 19:25 Blood Culture - Preliminary Blood Assessment and Plan (1) C. difficile colitis Current Visit: Yes Status: Acute Code(s): A04.72 - ENTEROCOLITIS D/T CLOSTRIDIUM DIFFICILE, NOT SPCF RECUR SNOMED Code(s): 971269078 (2) Sepsis Current Visit: Yes Status: Acute Code(s): A41.9 - SEPSIS, UNSPECIFIED ORGANISM SNOMED Code(s): 63217711 (3) Leukocytosis Current Visit: No Status: Acute Code(s): D72.829 - ELEVATED WHITE BLOOD CELL COUNT, UNSPECIFIED SNOMED Code(s): 001800390 (4) UTI (urinary tract infection) Current Visit: No Status: Acute Code(s): N39.0 - URINARY TRACT INFECTION, SITE NOT SPECIFIED SNOMED Code(s): 77698011 Plan: 1patient presenting to the hospital with weakness lower abdominal pain and diarrhea in this patient who did have a history of C. difficile colitis high clinical suspicious for C. difficile colitis patient also have a positive UA however no significant urinary symptoms except some retention on admission clinically doubt symptomatic UTI, cefepime was discontinued and urine culture has been negative 2-patient to continue with oral vancomycin add Questran for symptomatic relief did have some improvement in diarrhea and will monitor clinical course closely Dictation was produced using [employer] software. please excuse any gra mmatical, word or spelling errors. Time with Patient: Less than 30
[2024-03-21] MEDS ORDERED: WARFARIN 3 MG TAB PO SCH (21:00)
[2024-03-22 09:09] LABS: Prothrombin Time 49.2 sec (10.0-12.5)
[2024-03-22 09:24] LABS: African American GFR (CKD) 62 (>60 ml/min/1.73 sqM); Anion Gap 4 mmol/L; Blood Urea Nitrogen 24 mg/dL (9-20); Calcium 8.1 mg/dL (8.4-10.2); Carbon Dioxide 22 mmol/L (22-30); Chloride 110 mmol/L (98-107); Glucose 98 mg/dL (74-99); Non-African American GFR(CKD) 53 (>60 ml/min/1.73 sqM); Potassium 3.7 mmol/L (3.5-5.1); Sodium 136 mmol/L (137-145)
[2024-03-22 10:55] LABS: Basophils % (A) 0 %; Eosinophils # (A) 0.1 k/uL (0-0.7); Eosinophils % (A) 1 %; HCT 40.4 % (39.0-53.0); HGB 12.6 gm/dL (13.0-17.5); Hypochromasia Slight; Lymphocytes # (A) 0.4 k/uL (1.0-4.8); Lymphocytes % (A) 4 %; MCH 28.3 pg (25.0-35.0); MCHC 31.2 g/dL (31.0-37.0); MCV 90.8 fL (80.0-100.0); Mean Platelet Volume 9.1; Monocytes # (A) 0.8 k/uL (0-1.0); Monocytes % (A) 8 %; Neutrophils # (A) 8.8 k/uL (1.3-7.7); Neutrophils % (A) 87 %; Platelet Count 324 k/uL (150-450); RBC 4.45 m/uL (4.30-5.90); RDW 15.6 % (11.5-15.5); WBC 10.2 k/uL (3.8-10.6)
--- NOTE | 2024-03-22 15:33 | P.PN ---
Subjective Progress Note Date: 03/21/24 83-year-old male who presented to the emergency department via EMS with lower abdominal pain along with significant diarrhea. Patient reports to having low- grade temps at home and was recently just discharged from [facility] 1 day prior and sent home. Patient does have home care in the outpatient setting due to chronic debility and has been progressively getting worse. Patient reports he is mostly wheelchair-bound and has significant weakness in the lower extremities. Patient reports he follows with Dr. Munoz in the outpatient setting with a past medical history of atrial fibrillation, on Coumadin, history of prostate cancer, heart failure, CVA/TIA, GERD, hyperlipidemia, hypertension, prostate disorder, recurrent UTIs with recent C. difficile and multiple resistance in the urine cultures along with kidney stones. Patient's daughter at the bedside reports he was recently hospitalized over the last few months for UTIs along with kidney stones and had urological procedures including lithotri psies x 2. Patient was admitted with fevers with concerns for sepsis, due to urinary tract infection, episodes of diarrhea and also requiring low-dose pressor support. Patient did undergo CT abdomen in the ER which showed nonobstructing mid to inferior pole left renal cortical calcifications, tiny punctate left ureteral vesicle junction calcification is not excluded some minimal left hydroureter may be present with no reoccurrence of prior left hydronephrosis, left renal atrophy, small bilateral pleural effusions with diverticulosis without diverticulitis. EKG showed electronic ventricular pacer heart rate at 74. Labs revealed a white count of 20.8, hemoglobin was stable at 12.7, platelets were 254, INR is 1.9, sodium 135, potassium 3.9, BUN 27, creatinine 1.81, lactic acid 1.8, magnesium 1.8, amylase less than 30, lipase 16 urinalysis revealed a trace of protein and a trace of blood otherwise large leukocytes 169 white count. Virology testing including influenza, COVID, RSV were all negative. On admission to the ED patient did require 3 to 4 L of oxygen with multiple consultations placed on consult and possible ICU admission due to patient continuing to require pressor support. 03/21/2024 Patient admitted with a diagnosis of sepsis, from a urinary source, and also, C. difficile colitis. The patient was seen by my nurse practitioner initially. He is receiving cefepime IV, and oral vancomycin. He is getting saline at 100 cc an hour. Clinically, he appears to be doing better. As soon as he arrived to the ICU, on norepinephrine, Though Nurses Were Able to Shut It off. White count 16.3, hemoglobin 12, hematocrit 37.8, and platelet count 261,000. PT 22.4, INR 2.2, sodium 137, potassium 3.7, chlorides 111, CO2 20, BUN 26, and creatinine 1.61. Calcium is 7.8. patient did test positive for C. difficile colitis, and is on oral vancomycin. Yesterday he was on cefepime IV for possible UTI. White count was 14, hemoglobin 12.6, hematocrit 40.6, and platelet count 283,000. PTT was 30.1 with an INR 3.1. Sodium 137, potassium 3.5, chlorides 110, CO2 22, BUN 25, creatinine 1.42. Calcium was 8.2. Objective - Vital Signs Vital signs: Vital Signs Temp 97.8 F 03/20/24 20:43 Pulse 62 03/21/24 03:30 Resp 14 03/21/24 03:30 BP 120/70 03/21/24 03:30 Pulse Ox 96 03/21/24 03:30 FiO2 Intake & Output 03/20/24 03/21/24 03/21/24 18:59 06:59 18:59 Intake Total 850 10 Output Total 1600 950 Balance -750 -940 Weight 131 kg 134.5 kg Intake: IV 10 10 Invasive Line 2 10 10 Oral 840 Output: Urine 1600 950 Other: Voiding Method Indwelling Catheter # Bowel Movements 3 - Exam GENERAL: The patient is alert and oriented x3, elderly appearing, ill-appearing Well developed, obese HEENT: Pupils are round and equally reacting to light. EOMI. No scleral icterus. No conjunctival pallor. Normocephalic, atraumatic. No pharyngeal erythema. No thyromegaly. CARDIOVASCULAR: S1 and S2 muffled PULMONARY: Diminished breath sounds bilaterally otherwise chest is clear to auscultation, no wheezing or crackles. ABDOMEN: Soft, obese nontender, nondistended, normoactive bowel sounds. No palpable organomegaly. MUSCULOSKELETAL: No joint swelling or deformity. EXTREMITIES: No cyanosis, clubbing, or pedal edema. Bilateral lower extremity swelling NEUROLOGICAL: Gross neurological examination did not reveal any focal deficits. Diffusely weak SKIN: No rashes. - Labs CBC & Chem 7: 03/22/24 08:33 03/22/24 08:33 Labs: Abnormal Lab Results - Last 24 Hours (Table) 03/21/24 03/21/24 03/21/24 Range/Units 08:47 08:47 08:47 WBC 14.0 H (3.8-10.6) k/uL Hgb 12.6 L (13.0-17.5) gm/dL RDW 15.6 H (11.5-15.5) % Neutrophils # 12.2 H (1.3-7.7) k/uL Lymphocytes # 0.6 L (1.0-4.8) k/uL PT 30.1 H (10.0-12.5) sec INR 3.1 H (<1.2) Chloride 110 H (98-107) mmol/L BUN 25 H (9-20) mg/dL Creatinine 1.42 H (0.66-1.25) mg/dL Calcium 8.2 L (8.4-10.2) mg/dL Microbiology - Last 24 Hours (Table) 03/19/24 16:40 Urine Culture - Final Urine,Catheterized 03/18/24 19:25 Blood Culture - Preliminary Blood Assessment and Plan Assessment: Acute urinary tract infection with recurrent UTIs and concerns for urosepsis, present on admission requiring pressor support Leukocytosis with fever secondary to above Diarrhea and ongoing with recent history of C. difficile infection Generalized weakness and mostly wheelchair-bound, recently discharged from [facility] 1 day prior Acute hypoxic respiratory failure on admission secondary to sepsis Dehydration secondary to continuous multiple episodes of diarrhea Acute kidney injury with acute tubular necrosis, multifactorial likely secondary to diarrhea as well as severe dehydration and hypotension History of paroxysmal atrial fibrillation, maintained on Coumadin Hypertension history Hyperlipidemia history Frequent urinary tract infections and recently underwent lithotripsy x 2 for kidney stones Obesity with a BMI of 38.6 Plan: Patient is being admitted to the ICU as patient continues to require pressor support and currently weaning Patient on 2 to 3 L via nasal cannula weaning as tolerated recommend incentive spirometer and follow-up chest x-ray. Patient does not wear oxygen in the out patient setting Patient maintained on cefepime and vancomycin and will consult infectious disease and appreciate input and recommendations as patient has had frequent urinary tract infections and also recommend urology consult as patient recently underwent lithotripsy Recommend case management/social work consult as well as PT/OT therapy. Patient was recently discharged from [facility] [address] Hoover and sent home with home care Follow-up labs ordered for a.m. Due to multiple complex medical issues, overall prognosis is guarded
--- NOTE | 2024-03-22 15:34 | P.PN ---
Subjective Progress Note Date: 03/22/24 83-year-old male who presented to the emergency department via EMS with lower abdominal pain along with significant diarrhea. Patient reports to having low- grade temps at home and was recently just discharged from [facility] 1 day prior and sent home. Patient does have home care in the outpatient setting due to chronic debility and has been progressively getting worse. Patient reports he is mostly wheelchair-bound and has significant weakness in the lower extremities. Patient reports he follows with Dr. Munoz in the outpatient setting with a past medical history of atrial fibrillation, on Coumadin, history of prostate cancer, heart failure, CVA/TIA, GERD, hyperlipidemia, hypertension, prostate disorder, recurrent UTIs with recent C. difficile and multiple resistance in the urine cultures along with kidney stones. Patient's daughter at the bedside reports he was recently hospitalized over the last few months for UTIs along with kidney stones and had urological procedures including lithotri psies x 2. Patient was admitted with fevers with concerns for sepsis, due to urinary tract infection, episodes of diarrhea and also requiring low-dose pressor support. Patient did undergo CT abdomen in the ER which showed nonobstructing mid to inferior pole left renal cortical calcifications, tiny punctate left ureteral vesicle junction calcification is not excluded some minimal left hydroureter may be present with no reoccurrence of prior left hydronephrosis, left renal atrophy, small bilateral pleural effusions with diverticulosis without diverticulitis. EKG showed electronic ventricular pacer heart rate at 74. Labs revealed a white count of 20.8, hemoglobin was stable at 12.7, platelets were 254, INR is 1.9, sodium 135, potassium 3.9, BUN 27, creatinine 1.81, lactic acid 1.8, magnesium 1.8, amylase less than 30, lipase 16 urinalysis revealed a trace of protein and a trace of blood otherwise large leukocytes 169 white count. Virology testing including influenza, COVID, RSV were all negative. On admission to the ED patient did require 3 to 4 L of oxygen with multiple consultations placed on consult and possible ICU admission due to patient continuing to require pressor support. 03/21/2024 Patient admitted with a diagnosis of sepsis, from a urinary source, and also, C. difficile colitis. The patient was seen by my nurse practitioner initially. He is receiving cefepime IV, and oral vancomycin. He is getting saline at 100 cc an hour. Clinically, he appears to be doing better. As soon as he arrived to the ICU, on norepinephrine, Though Nurses Were Able to Shut It off. White count 16.3, hemoglobin 12, hematocrit 37.8, and platelet count 261,000. PT 22.4, INR 2.2, sodium 137, potassium 3.7, chlorides 111, CO2 20, BUN 26, and creatinine 1.61. Calcium is 7.8. patient did test positive for C. difficile colitis, and is on oral vancomycin. Yesterday he was on cefepime IV for possible UTI. White count was 14, hemoglobin 12.6, hematocrit 40.6, and platelet count 283,000. PTT was 30.1 with an INR 3.1. Sodium 137, potassium 3.5, chlorides 110, CO2 22, BUN 25, creatinine 1.42. Calcium was 8.2. 03/22/2024 The patient is seen and evaluated in room at bedside, remains on room air. - The patient did test positive for C. difficile colitis, and is on oral vancomycin. Yesterday he was on cefepime IV for possible UTI. White count was 14, hemoglobin 12.6, hematocrit 40.6, and platelet count 283,000. PTT was 30.1 with an INR 3.1. Sodium 137, potassium 3.5, chlorides 110, CO2 22, BUN 25, creatinine 1.42. Calcium was 8.2. patient presenting to the hospital with weakness lower abdominal pain and diarrhea in this patient who did have a history of C. difficile colitis high clinical suspicious for C. difficile colitis patient also have a positive UA however no significant urinary symptoms except some retention on admission clinically doubt symptomatic UTI, cefepime was discontinued and urine culture h as been negative -patient to continue with oral vancomycin add Questran for symptomatic relief did have some improvement in diarrhea and will monitor clinical course closely Objective - Vital Signs Vital signs: Vital Signs Temp 98.4 F 03/22/24 03:00 Pulse 63 03/22/24 03:00 Resp 20 03/22/24 03:00 BP 127/67 03/22/24 03:00 Pulse Ox 95 03/22/24 03:00 FiO2 Intake & Output 03/21/24 03/22/24 03/22/24 18:59 06:59 18:59 Intake Total 838 Output Total 800 500 500 Balance 38 -500 -500 Weight 135.5 kg Intake: Oral 838 Output: Urine 800 500 500 Other: Voiding Method Indwelling Catheter Indwelling Catheter # Bowel Movements 1 1 1 - Exam GENERAL: The patient is alert and oriented x3, elderly appearing, ill-appearing Well developed, obese HEENT: Pupils are round and equally reacting to light. EOMI. No scleral icterus. No conjunctival pallor. Normocephalic, atraumatic. No pharyngeal erythema. No thyromegaly. CARDIOVASCULAR: S1 and S2 muffled PULMONARY: Diminished breath sounds bilaterally otherwise chest is clear to auscultation, no wheezing or crackles. ABDOMEN: Soft, obese nontender, nondistended, normoactive bowel sounds. No palpable organomegaly. MUSCULOSKELETAL: No joint swelling or deformity. EXTREMITIES: No cyanosis, clubbing, or pedal edema. Bilateral lower extremity swelling NEUROLOGICAL: Gross neurological examination did not reveal any focal deficits. Diffusely weak SKIN: No rashes. - Labs CBC & Chem 7: 03/22/24 08:33 03/22/24 08:33 Labs: Abnormal Lab Results - Last 24 Hours (Table) 03/22/24 03/22/24 Range/Units 08:33 08:33 PT 49.2 H (10.0-12.5) sec INR 5.0 H (<1.2) Sodium 136 L (137-145) mmol/L Chloride 110 H (98-107) mmol/L BUN 24 H (9-20) mg/dL Calcium 8.1 L (8.4-10.2) mg/dL Microbiology - Last 24 Hours (Table) 03/18/24 19:25 Blood Culture - Preliminary Blood Assessment and Plan Assessment: Acute urinary tract infection with recurrent UTIs and concerns for urosepsis, present on admission requiring pressor support Leukocytosis with fever secondary to above Diarrhea and ongoing with recent history of C. difficile infection Generalized weakness and mostly wheelchair-bound, recently discharged from [facility] 1 day prior Acute hypoxic respiratory failure on admission secondary to sepsis Dehydration secondary to continuous multiple episodes of diarrhea Acute kidney injury with acute tubular necrosis, multifactorial likely secondary to diarrhea as well as severe dehydration and hypotension History of paroxysmal atrial fibrillation, maintained on Coumadin Hypertension history Hyperlipidemia history Frequent urinary tract infections and recently underwent lithotripsy x 2 for kid mag stones Obesity with a BMI of 38.6 Plan: Patient is being admitted to the ICU as patient continues to require pressor support and currently weaning Patient on 2 to 3 L via nasal cannula weaning as tolerated recommend incentive spirometer and follow-up chest x-ray. Patient does not wear oxygen in the outpatient setting Patient maintained on cefepime and vancomycin and will consult infectious disease and appreciate input and recommendations as patient has had frequent urinary tract infections and also recommend urology consult as patient recently underwent lithotripsy Recommend case management/social work consult as well as PT/OT therapy. Patient was recently discharged from [facility] [address] Hoover and sent home with home care Follow-up labs ordered for a.m. Due to multiple complex medical issues, overall prognosis is guarded
[2024-03-22] MEDS: WARFARIN 0.5 MG TAB PO ONE (17:28)
--- NOTE | 2024-03-22 18:05 | P.PN ---
Subjective Progress Note Date: 03/22/24 Principal diagnosis: Reason for follow-up is sepsis and C. difficile colitis Patient is a 83-year-old male with a past medical history significant for hypertension hyperlipidemia prostate cancer atrial fibrillation CVA TIA, C. difficile colitis patient was brought into the hospital for evaluation of lower abdominal pain and diarrhea, patient was diagnosed with sepsis with initial admission to the ICU subsequently has been transferred to the telemetry floor. Patient did test positive for C. difficile. On today's evaluation that is 03/22/2024,the patient remains to be afebrile, patient is on room air not requiring supplemental oxygen and denies any shortness of breath no chest pain or cough.Patient denies having any nausea or vomiting, abdominal pain has decreased still having some diarrhea though slowed down. Patient white normalized to 10.2, creatinine is 1.25 Objective - Vital Signs Vital signs: Vital Signs Temp 97.8 F 03/22/24 09:35 Pulse 61 03/22/24 12:00 Resp 16 03/22/24 12:00 BP 135/74 03/22/24 12:00 Pulse Ox 96 03/22/24 12:00 FiO2 Intake & Output 03/21/24 03/22/24 03/22/24 18:59 06:59 18:59 Intake Total 838 Output Total 214 668 7944 Balance 38 -500 -1175 Weight 135.5 kg Intake: Oral 838 Output: Urine 079 898 2363 Other: Voiding Method Indwelling Catheter Indwelling Catheter Indwelling Catheter # Bowel Movements 1 1 1 - Exam GENERAL DESCRIPTION: An elderly male lying in bed in no distress RESPIRATORY SYSTEM: Unlabored breathing , decreased breath sounds at bases HEART: S1 S2 regular rate and rhythm , ABDOMEN: Soft , no tenderness EXTREMITIES: No edema feet - Labs CBC & Chem 7: 03/22/24 08:33 03/22/24 08:33 Labs: Abnormal Lab Results - Last 24 Hours (Table) 03/22/24 03/22/24 03/22/24 Range/Units 08:33 08:33 08:33 Hgb 12.6 L (13.0-17.5) gm/dL RDW 15.6 H (11.5-15.5) % Neutrophils # 8.8 H (1.3-7.7) k/uL Lymphocytes # 0.4 L (1.0-4.8) k/uL PT 49.2 H (10.0-12.5) sec INR 5.0 H (<1.2) Sodium 136 L (137-145) mmol/L Chloride 110 H (98-107) mmol/L BUN 24 H (9-20) mg/dL Calcium 8.1 L (8.4-10.2) mg/dL Microbiology - Last 24 Hours (Table) 03/18/24 19:25 Blood Culture - Preliminary Blood Assessment and Plan (1) C. difficile colitis Current Visit: Yes Status: Acute Code(s): A04.72 - ENTEROCOLITIS D/T CLOSTRIDIUM DIFFICILE, NOT SPCF RECUR SNOMED Code(s): 136687374 (2) Sepsis Current Visit: Yes Status: Acute Code(s): A41.9 - SEPSIS, UNSPECIFIED ORGANISM SNOMED Code(s): 28404092 (3) Leukocytosis Current Visit: No Status: Acute Code(s): D72.829 - ELEVATED WHITE BLOOD CELL COUNT, UNSPECIFIED SNOMED Code(s): 988423403 (4) UTI (urinary tract infection) Current Visit: No Status: Acute Code(s): N39.0 - URINARY TRACT INFECTION, SITE NOT SPECIFIED SNOMED Code(s): 64836380 Plan: 1patient presenting to the hospital with weakness lower abdominal pain and diarrhea in this patient who did have a history of C. difficile colitis high clinical suspicious for C. difficile colitis patient also have a positive UA however no significant urinary symptoms except some retention on admission clinically doubt symptomatic UTI, cefepime was discontinued and urine culture has been negative 2-patient white count has normalized the patient diarrhea has slowed down, to continue with oral vancomycin add Questran for symptomatic relief and will monitor clinical course closely Dictation was produced using [employer] software. please excuse any grammatical, word or spelling errors. Time with Patient: Less than 30
[2024-03-23 08:16] LABS: African American GFR (CKD) 63 (>60 ml/min/1.73 sqM); Anion Gap 3 mmol/L; Blood Urea Nitrogen 21 mg/dL (9-20); Calcium 7.9 mg/dL (8.4-10.2); Carbon Dioxide 21 mmol/L (22-30); Chloride 111 mmol/L (98-107); Glucose 85 mg/dL (74-99); Non-African American GFR(CKD) 55 (>60 ml/min/1.73 sqM); Potassium 3.9 mmol/L (3.5-5.1); Sodium 135 mmol/L (137-145)
[2024-03-23 08:22] LABS: INR 5.1 (<1.2)
--- NOTE | 2024-03-23 10:07 | P.PN ---
Subjective 83-year-old male who presented to the emergency department via EMS with lower abdominal pain along with significant diarrhea. Patient reports to having low- grade temps at home and was recently just discharged from [facility] 1 day prior and sent home. Patient does have home care in the outpatient setting due to chronic debility and has been progressively getting worse. Patient reports he is mostly wheelchair-bound and has significant weakness in the lower extremities. Patient reports he follows with Dr. Munoz in the outpatient setting with a past medical history of atrial fibrillation, on Coumadin, history of prostate cancer, heart failure, CVA/TIA, GERD, hyperlipidemia, hypertension, prostate disorder, recurrent UTIs with recent C. difficile and multiple resistance in the urine cultures along with kidney stones. Patient's daughter at the bedside reports he was recently hospitalized over the last few months for UTIs along with kidney stones and had urological procedures including lithotripsies x 2. Patient was admitted with fevers with concerns for sepsis, due to urinary tract infection, episodes of diarrhea and also requiring low-dose pressor support. Patient did undergo CT abdomen in the ER which showed nonobstructing mid to inferior pole left renal cortical calcifications, tiny punctate left ureteral vesicle junction calcification is not excluded some minimal left hydroureter may be present with no reoccurrence of prior left hydronephrosis, left renal atrophy, small bilateral pleural effusions with diverticulosis without diverticulitis. EKG showed electronic ventricular pacer heart rate at 74. Labs revealed a white count of 20.8, hemoglobin was stable at 12.7, platelets were 254, INR is 1.9, sodium 135, potassium 3.9, BUN 27, creatinine 1.81, lactic acid 1.8, magnesium 1.8, amylase less than 30, lipase 16 urinalysis revealed a trace of protein and a trace of blood otherwise large leukocytes 169 white count. Virology testing including influenza, COVID, RSV were all negative. On admission to the ED patient did require 3 to 4 L of oxygen with multiple consultations placed on consult and possible ICU admission due to patient continuing to require pressor support. 03/21/2024 Patient admitted with a diagnosis of sepsis, from a urinary source, and also, C. difficile colitis. The patient was seen by my nurse practitioner initially. He is receiving cefepime IV, and oral vancomycin. He is getting saline at 100 cc an hour. Clinically, he appears to be doing better. As soon as he arrived to the ICU, on norepinephrine, Though Nurses Were Able to Shut It off. White count 16.3, hemoglobin 12, hematocrit 37.8, and platelet count 261,000. PT 22.4, INR 2.2, sodium 137, potassium 3.7, chlorides 111, CO2 20, BUN 26, and creatinine 1.61. Calcium is 7.8. patient did test positive for C. difficile colitis, and is on oral vancomycin. Yesterday he was on cefepime IV for possible UTI. White count was 14, hemoglobin 12.6, hematocrit 40.6, and platelet count 283,000. PTT was 30.1 with an INR 3.1. Sodium 137, potassium 3.5, chlorides 110, CO2 22, BUN 25, creatinine 1.42. Calcium was 8.2. 03/22/2024 The patient is seen and evaluated in room at bedside, remains on room air. - The patient did test positive for C. difficile colitis, and is on oral vancomycin. Yesterday he was on cefepime IV for possible UTI. White count was 14, hemoglobin 12.6, hematocrit 40.6, and platelet count 283,000. PTT was 30.1 with an INR 3.1. Sodium 137, potassium 3.5, chlorides 110, CO2 22, BUN 25, creatinine 1.42. Calcium was 8.2. patient presenting to the hospital with weakness lower abdominal pain and diarrhea in this patient who did have a history of C. difficile colitis high clinical suspicious for C. difficile colitis patient also have a positive UA however no significant urinary symptoms except some retention on admission clinically doubt symptomatic UTI, cefepime was discontinued and urine culture has been negative -patient to continue with oral vancomycin add Questran for symptomatic relief did have some improvement in diarrhea and will monitor clinical course closely 03/23 Patient still with diarrhea related to his C. difficile colitis He has mild left lower quadrant pain, minimal tenderness, no guarding or rebound tenderness Aguilar catheter in place Patient states at baseline uses a walker for short distance INR is 5.1 today, Coumadin remains on hold. No hemoglobin test from today yesterday was 12.6 Check labs tomorrow morning Ask for PT/OT evaluation Objective - Vital Signs Vital signs: Vital Signs Temp 97.5 F L 03/23/24 04:00 Pulse 57 L 03/23/24 04:00 Resp 16 09/02/24 04:00 BP 114/70 03/23/24 04:00 Pulse Ox 97 03/23/24 04:00 FiO2 Intake & Output 03/22/24 03/23/24 03/23/24 18:59 06:59 18:59 Output Total 1175 1275 Balance -1175 -1275 Weight 137.5 kg Output: Urine 1175 1275 Other: Voiding Method Indwelling Catheter Indwelling Catheter # Bowel Movements 1 1 - Exam -GENERAL: The patient is alert and oriented x3, not in any acute distress. Well developed, well nourished. Obese HEENT: Pupils are round and equally reacting to light. EOMI. No scleral icterus. No conjunctival pallor. Normocephalic, atraumatic. No pharyngeal erythema. No thyromegaly. CARDIOVASCULAR: S1 and S2 present. No murmurs, rubs, or gallops. PULMONARY: Chest is clear to auscultation, no wheezing , no crackles. -ABDOMEN: Soft, nondistended, normoactive bowel sounds. No palpable organomegaly. Mild left lower quadrant tenderness, no guarding or rebound tenderness. Aguilar catheter is in place MUSCULOSKELETAL: No joint swelling or deformity. EXTREMITIES: No cyanosis, clubbing, or pedal edema. NEUROLOGICAL: Gross neurological examination did not reveal any focal deficits. SKIN: No rashes. no petechiae. - Labs CBC & Chem 7: 03/22/24 08:33 03/23/24 06:51 Labs: Abnormal Lab Results - Last 24 Hours (Table) 03/22/24 03/23/24 03/23/24 Range/Units 08:33 06:51 06:51 Hgb 12.6 L (13.0-17.5) gm/dL RDW 15.6 H (11.5-15.5) % Neutrophils # 8.8 H (1.3-7.7) k/uL Lymphocytes # 0.4 L (1.0-4.8) k/uL PT 50.0 H (10.0-12.5) sec INR 5.1 H* (<1.2) Sodium 135 L (137-145) mmol/L Chloride 111 H (98-107) mmol/L Carbon Dioxide 21 L (22-30) mmol/L BUN 21 H (9-20) mg/dL Calcium 7.9 L (8.4-10.2) mg/dL Microbiology - Last 24 Hours (Table) 03/18/24 19:25 Blood Culture - Preliminary Blood Assessment and Plan Assessment: Acute urinary tract infection with recurrent UTIs and concerns for urosepsis, present on admission requiring pressor support. Patient finished antibiotic Leukocytosis with fever secondary to above Diarrhea a secondary to C. difficile infection and colitis Generalized weakness and mostly wheelchair-bound, recently discharged from [facility] 1 day prior Acute hypoxic respiratory failure on admission secondary to sepsis. Resolved Dehydration secondary to continuous multiple episodes of diarrhea. Resolved coagulopathy secondary to Coumadin Acute kidney injury with acute tubular necrosis, multifactorial likely secondary to diarrhea as well as severe dehydration and hypotension History of paroxysmal atrial fibrillation, maintained on Coumadin Hypertension history Hyperlipidemia history Frequent urinary tract infections and recently underwent lithotripsy x 2 for kidney stones Obesity with a BMI of 38.6 Plan: Keep holding Coumadin Check INR Continue with oral vancomycin Continue with gentle hydration Continue GI prophylaxis Infectious and pulmonary team following the patient Labs and medication were reviewed.. Continue same treatment. Continue with symptomatic treatment. Resume home medication. Monitor labs and vitals. DVT and GI prophylaxis. Further recommendations as per clinical course of the patient DVT prophylaxis: Coumadin GI Prophylaxis: Ppi PT/OT: Pending Prognosis is guarded
[2024-03-23] MEDS: WARFARIN 0.5 MG TAB PO ONE (14:33)
--- NOTE | 2024-03-23 21:09 | P.PN ---
Subjective Progress Note Date: 03/23/24 Principal diagnosis: Reason for follow-up is sepsis and C. difficile colitis Patient is a 83-year-old male with a past medical history significant for hypertension hyperlipidemia prostate cancer atrial fibrillation CVA TIA, C. difficile colitis patient was brought into the hospital for evaluation of lower abdominal pain and diarrhea, patient was diagnosed with sepsis with initial admission to the ICU subsequently has been transferred to the telemetry floor. Patient did test positive for C. difficile. On today's evaluation that is 03/23/2024, the patient continues to be afebrile, the patient is on room air and breathing comfortably, the Pt denies having any chest pain or cough, the patient denies having any abdominal pain no vomiting diarrhea has slowed on per the nursing staff. Patient did have a creatinine of 1.22 no CBC was done today blood and urine cul ture have been negative Objective - Vital Signs Vital signs: Vital Signs Temp 97.4 F L 03/23/24 08:00 Pulse 63 03/23/24 12:13 Resp 18 03/23/24 12:13 BP 146/72 03/23/24 12:13 Pulse Ox 96 03/23/24 12:13 FiO2 Intake & Output 03/22/24 03/23/24 03/23/24 18:59 06:59 18:59 Intake Total 368 Output Total 1175 1275 600 Balance -1175 -1275 -232 Weight 137.5 kg Intake: IV 10 Invasive Line 3 10 Oral 358 Output: Urine 1175 1275 600 Other: Voiding Method Indwelling Catheter Indwelling Catheter Indwelling Catheter # Bowel Movements 1 1 2 - Exam GENERAL DESCRIPTION: An elderly male lying in bed in no distress RESPIRATORY SYSTEM: Unlabored breathing , decreased breath sounds at bases HEART: S1 S2 regular rate and rhythm , ABDOMEN: Soft , no tenderness EXTREMITIES: No edema feet - Labs CBC & Chem 7: 03/22/24 08:33 03/23/24 06:51 Labs: Abnormal Lab Results - Last 24 Hours (Table) 03/23/24 03/23/24 Range/Units 06:51 06:51 PT 50.0 H (10.0-12.5) sec INR 5.1 H* (<1.2) Sodium 135 L (137-145) mmol/L Chloride 111 H (98-107) mmol/L Carbon Dioxide 21 L (22-30) mmol/L BUN 21 H (9-20) mg/dL Calcium 7.9 L (8.4-10.2) mg/dL Microbiology - Last 24 Hours (Table) 03/18/24 19:25 Blood Culture - Preliminary Blood Assessment and Plan (1) C. difficile colitis Current Visit: Yes Status: Acute Code(s): A04.72 - ENTEROCOLITIS D/T CLOSTRIDIUM DIFFICILE, NOT SPCF RECUR SNOMED Code(s): 175555578 (2) Sepsis Current Visit: Yes Status: Acute Code(s): A41.9 - SEPSIS, UNSPECIFIED ORGANISM SNOMED Code(s): 29924758 (3) Leukocytosis Current Visit: No Status: Acute Code(s): D72.829 - ELEVATED WHITE BLOOD CELL COUNT, UNSPECIFIED SNOMED Code(s): 693881023 (4) UTI (urinary tract infection) Current Visit: No Status: Acute Code(s): N39.0 - URINARY TRACT INFECTION, SITE NOT SPECIFIED SNOMED Code(s): 60331746 Plan: 1patient presenting to the hospital with weakness lower abdominal pain and diarrhea in this patient who did have a history of C. difficile colitis high clinical suspicious for C. difficile colitis patient also have a positive UA however no significant urinary symptoms except some retention on admission clinically doubt symptomatic UTI, cefepime was discontinued and urine culture has been negative 2-patient white count has normalized the patient diarrhea has slowed down as reported by the nursing staff, 3patient to continue with oral vancomycin add Questran for symptomatic relief and will monitor clinical course closely Dictation was produced using [employer] dictation software. please excuse any grammatical, word or spelling errors. Time with Patient: Less than 30
[2024-03-24 08:56] LABS: Basophils % (A) 0 %; Eosinophils # (A) 0.1 k/uL (0-0.7); Eosinophils % (A) 1 %; HCT 43.1 % (39.0-53.0); HGB 13.6 gm/dL (13.0-17.5); Hypochromasia Slight; Lymphocytes # (A) 0.6 k/uL (1.0-4.8); Lymphocytes % (A) 6 %; MCH 28.4 pg (25.0-35.0); MCHC 31.4 g/dL (31.0-37.0); MCV 90.5 fL (80.0-100.0); Mean Platelet Volume 8.6; Monocytes # (A) 0.7 k/uL (0-1.0); Monocytes % (A) 7 %; Neutrophils # (A) 8.7 k/uL (1.3-7.7); Neutrophils % (A) 86 %; Platelet Count 420 k/uL (150-450); RBC 4.77 m/uL (4.30-5.90); RDW 15.7 % (11.5-15.5); WBC 10.1 k/uL (3.8-10.6)
[2024-03-24 09:04] LABS: African American GFR (CKD) 74 (>60 ml/min/1.73 sqM); Anion Gap 4 mmol/L; Blood Urea Nitrogen 21 mg/dL (9-20); Calcium 8.4 mg/dL (8.4-10.2); Carbon Dioxide 24 mmol/L (22-30); Chloride 111 mmol/L (98-107); Glucose 111 mg/dL (74-99); Non-African American GFR(CKD) 64 (>60 ml/min/1.73 sqM); Sodium 139 mmol/L (137-145)
[2024-03-24 09:08] LABS: Prothrombin Time 39.3 sec (10.0-12.5)
--- NOTE | 2024-03-24 11:53 | P.PN ---
Subjective 83-year-old male who presented to the emergency department via EMS with lower abdominal pain along with significant diarrhea. Patient reports to having low- grade temps at home and was recently just discharged from [facility] 1 day prior and sent home. Patient does have home care in the outpatient setting due to chronic debility and has been progressively getting worse. Patient reports he is mostly wheelchair-bound and has significant weakness in the lower extremities. Patient reports he follows with Dr. Munoz in the outpatient setting with a past medical history of atrial fibrillation, on Coumadin, history of prostate cancer, heart failure, CVA/TIA, GERD, hyperlipidemia, hypertension, prostate disorder, recurrent UTIs with recent C. difficile and multiple resistance in the urine cultures along with kidney stones. Patient's daughter at the bedside reports he was recently hospitalized over the last few months for UTIs along with kidney stones and had urological procedures including lithotripsies x 2. Patient was admitted with fevers with concerns for sepsis, due to urinary tract infection, episodes of diarrhea and also requiring low-dose pressor support. Patient did undergo CT abdomen in the ER which showed nonobstructing mid to inferior pole left renal cortical calcifications, tiny punctate left ureteral vesicle junction calcification is not excluded some minimal left hydroureter may be present with no reoccurrence of prior left hydronephrosis, left renal atrophy, small bilateral pleural effusions with diverticulosis without diverticulitis. EKG showed electronic ventricular pacer heart rate at 74. Labs revealed a white count of 20.8, hemoglobin was stable at 12.7, platelets were 254, INR is 1.9, sodium 135, potassium 3.9, BUN 27, creatinine 1.81, lactic acid 1.8, magnesium 1.8, amylase less than 30, lipase 16 urinalysis revealed a trace of protein and a trace of blood otherwise large leukocytes 169 white count. Virology testing including influenza, COVID, RSV were all negative. On admission to the ED patient did require 3 to 4 L of oxygen with multiple consultations placed on consult and possible ICU admission due to patient continuing to require pressor support. 03/21/2024 Patient admitted with a diagnosis of sepsis, from a urinary source, and also, C. difficile colitis. The patient was seen by my nurse practitioner initially. He is receiving cefepime IV, and oral vancomycin. He is getting saline at 100 cc an hour. Clinically, he appears to be doing better. As soon as he arrived to the ICU, on norepinephrine, Though Nurses Were Able to Shut It off. White count 16.3, hemoglobin 12, hematocrit 37.8, and platelet count 261,000. PT 22.4, INR 2.2, sodium 137, potassium 3.7, chlorides 111, CO2 20, BUN 26, and creatinine 1.61. Calcium is 7.8. patient did test positive for C. difficile colitis, and is on oral vancomycin. Yesterday he was on cefepime IV for possible UTI. White count was 14, hemoglobin 12.6, hematocrit 40.6, and platelet count 283,000. PTT was 30.1 with an INR 3.1. Sodium 137, potassium 3.5, chlorides 110, CO2 22, BUN 25, creatinine 1.42. Calcium was 8.2. 03/22/2024 The patient is seen and evaluated in room at bedside, remains on room air. - The patient did test positive for C. difficile colitis, and is on oral vancomycin. Yesterday he was on cefepime IV for possible UTI. White count was 14, hemoglobin 12.6, hematocrit 40.6, and platelet count 283,000. PTT was 30.1 with an INR 3.1. Sodium 137, potassium 3.5, chlorides 110, CO2 22, BUN 25, creatinine 1.42. Calcium was 8.2. patient presenting to the hospital with weakness lower abdominal pain and diarrhea in this patient who did have a history of C. difficile colitis high clinical suspicious for C. difficile colitis patient also have a positive UA however no significant urinary symptoms except some retention on admission clinically doubt symptomatic UTI, cefepime was discontinued and urine culture has been negative -patient to continue with oral vancomycin add Questran for symptomatic relief did have some improvement in diarrhea and will monitor clinical course closely 03/23 Patient still with diarrhea related to his C. difficile colitis He has mild left lower quadrant pain, minimal tenderness, no guarding or rebound tenderness Aguilar catheter in place Patient states at baseline uses a walker for short distance INR is 5.1 today, Coumadin remains on hold. No hemoglobin test from today yesterday was 12.6 Check labs tomorrow morning Ask for PT/OT evaluation 03/24/24 Diarrhea is improving No abdominal pain or tenderness On oral vancomycin INR today is 4.0, Coumadin on hold. Keep monitoring Objective - Vital Signs Vital signs: Vital Signs Temp 97.7 F 03/24/24 08:10 Pulse 60 03/24/24 08:10 Resp 16 03/24/24 08:10 BP 128/73 03/24/24 08:10 Pulse Ox 95 03/24/24 08:10 FiO2 Intake & Output 03/23/24 03/24/24 03/24/24 18:59 06:59 18:59 Intake Total 726 130 Output Total 1050 1400 Balance -324 -1400 130 Weight 136 kg Intake: IV 10 10 Invasive Line 3 10 10 Oral 716 120 Output: Urine 1050 1400 Other: Voiding Method Indwelling Catheter Indwelling Catheter Indwelling Catheter # Bowel Movements 2 1 - Exam -GENERAL: The patient is alert and oriented x3, not in any acute distress. Well developed, well nourished. Obese HEENT: Pupils are round and equally reacting to light. EOMI. No scleral icterus. No conjunctival pallor. Normocephalic, atraumatic. No pharyngeal erythema. No thyromegaly. CARDIOVASCULAR: S1 and S2 present. No murmurs, rubs, or gallops. PULMONARY: Chest is clear to auscultation, no wheezing , no crackles. -ABDOMEN: Soft, nondistended, normoactive bowel sounds. No palpable organomegaly. Mild left lower quadrant tenderness, no guarding or rebound tenderness. Aguilar catheter is in place MUSCULOSKELETAL: No joint swelling or deformity. EXTREMITIES: No cyanosis, clubbing, or pedal edema. NEUROLOGICAL: Gross neurological examination did not reveal any focal deficits. SKIN: No rashes. no petechiae. - Labs CBC & Chem 7: 03/24/24 08:04 03/24/24 08:04 Labs: Abnormal Lab Results - Last 24 Hours (Table) 03/24/24 03/24/24 03/24/24 Range/Units 08:04 08:04 08:04 RDW 15.7 H (11.5-15.5) % Neutrophils # 8.7 H (1.3-7.7) k/uL Lymphocytes # 0.6 L (1.0-4.8) k/uL PT 39.3 H (10.0-12.5) sec INR 4.0 H (<1.2) Chloride 111 H (98-107) mmol/L BUN 21 H (9-20) mg/dL Glucose 111 H (74-99) mg/dL Assessment and Plan Assessment: Acute urinary tract infection with recurrent UTIs and concerns for urosepsis, present on admission requiring pressor support. Patient finished antibiotic Leukocytosis with fever secondary to above Diarrhea a secondary to C. difficile infection and colitis Generalized weakness and mostly wheelchair-bound, recently discharged from [facility] 1 day prior Acute hypoxic respiratory failure on admission secondary to sepsis. Resolved Dehydration secondary to continuous multiple episodes of diarrhea. Resolved coagulopathy secondary to Coumadin Acute kidney injury with acute tubular necrosis, multifactorial likely secondary to diarrhea as well as severe dehydration and hypotension History of paroxysmal atrial fibrillation, maintained on Coumadin Hypertension history Hyperlipidemia history Frequent urinary tract infections and recently underwent lithotripsy x 2 for kidney stones Obesity with a BMI of 38.6 Plan: Keep holding Coumadin Check INR Continue with oral vancomycin Continue with gentle hydration Continue GI prophylaxis Infectious and pulmonary team following the patient Labs and medication were reviewed.. Continue same treatment. Continue with symptomatic treatment. Resume home medication. Monitor labs and vitals. DVT and GI prophylaxis. Further recommendations as per clinical course of the patient DVT prophylaxis: Coumadin GI Prophylaxis: Ppi PT/OT: Pending Prognosis is guarded
--- NOTE | 2024-03-24 15:52 | P.PN ---
Subjective Progress Note Date: 03/24/24 Principal diagnosis: Reason for follow-up is sepsis and C. difficile colitis Patient is a 83-year-old male with a past medical history significant for hypertension hyperlipidemia prostate cancer atrial fibrillation CVA TIA, C. difficile colitis patient was brought into the hospital for evaluation of lower abdominal pain and diarrhea, patient was diagnosed with sepsis with initial admission to the ICU subsequently has been transferred to the telemetry floor. Patient did test positive for C. difficile. On today's evaluation that is 03/24/2024, Patient is afebrile patient is currently on room air and denies having any shortness of breath, the patient denies any chest pain or cough, the patient denies any nausea vomiting did not have any abdominal pain admission diarrhea has improved did have 1 bowel movement today. Patient white count is 10.1, creatinine 1.07 Objective - Vital Signs Vital signs: Vital Signs Temp 98.2 F 03/24/24 12:06 Pulse 61 03/24/24 12:06 Resp 16 03/24/24 12:06 BP 151/70 03/24/24 12:06 Pulse Ox 97 03/24/24 12:06 FiO2 Intake & Output 03/23/24 03/24/24 03/24/24 18:59 06:59 18:59 Intake Total 726 250 Output Total 1050 1400 660 Balance -324 -1400 -410 Weight 136 kg Intake: IV 10 10 Invasive Line 3 10 10 Oral 716 240 Output: Urine 1050 1400 660 Other: Voiding Method Indwelling Catheter Indwelling Catheter Indwelling Catheter # Bowel Movements 2 1 1 - Exam GENERAL DESCRIPTION: An elderly male lying in bed in no distress RESPIRATORY SYSTEM: Unlabored breathing , decreased breath sounds at bases HEART: S1 S2 regular rate and rhythm , ABDOMEN: Soft , no tenderness EXTREMITIES: No edema feet - Labs CBC & Chem 7: 03/24/24 08:04 03/24/24 08:04 Labs: Abnormal Lab Results - Last 24 Hours (Table) 03/24/24 03/24/24 03/24/24 Range/Units 08:04 08:04 08:04 RDW 15.7 H (11.5-15.5) % Neutrophils # 8.7 H (1.3-7.7) k/uL Lymphocytes # 0.6 L (1.0-4.8) k/uL PT 39.3 H (10.0-12.5) sec INR 4.0 H (<1.2) Chloride 111 H (98-107) mmol/L BUN 21 H (9-20) mg/dL Glucose 111 H (74-99) mg/dL Assessment and Plan (1) C. difficile colitis Current Visit: Yes Status: Acute Code(s): A04.72 - ENTEROCOLITIS D/T CLOS TRIDIUM DIFFICILE, NOT SPCF RECUR SNOMED Code(s): 776127633 (2) Sepsis Current Visit: Yes Status: Acute Code(s): A41.9 - SEPSIS, UNSPECIFIED ORGANISM SNOMED Code(s): 79768970 (3) Leukocytosis Current Visit: No Status: Acute Code(s): D72.829 - ELEVATED WHITE BLOOD CELL COUNT, UNSPECIFIED SNOMED Code(s): 752264279 (4) UTI (urinary tract infection) Current Visit: No Status: Acute Code(s): N39.0 - URINARY TRACT INFECTION, SITE NOT SPECIFIED SNOMED Code(s): 04404486 Plan: 1patient presenting to the hospital with weakness lower abdominal pain and diarrhea in this patient who did have a history of C. difficile colitis high clinical suspicious for C. difficile colitis patient also have a positive UA however no significant urinary symptoms except some retention on admission clinically doubt symptomatic UTI, cefepime was discontinued and urine culture has been negative 2-patient white count has normalized and did have improvement in his diarrhea 3patient to continue with oral vancomycin to finish a 2-week course of therapy Questran as needed for symptomatic relief Dictation was produced using [employer] dictation software. please excuse any grammatical, word or spelling errors. Time with Patient: Less than 30
[2024-03-24] MEDS: WARFARIN 0.5 MG TAB PO ONE (18:15)
[2024-03-25 07:04] LABS: INR 3.2 (<1.2); Prothrombin Time 31.4 sec (10.0-12.5)
[2024-03-25 11:12] LABS: Glucose,Whole Blood 111 mg/dL (70-110)
[2024-03-25 14:19] VITALS: BMI 41.2
[2024-03-25] MEDS: WARFARIN 0.5 MG TAB PO ONE (17:39)
--- NOTE | 2024-03-25 20:38 | P.PN ---
Subjective Progress Note Date: 03/25/24 On today's evaluation of 03/25/2024, the patient is resting comfortably in bed and the patient is on room air oxygen with a pulse ox of 96%. Hemodynamically stable. Patient remains on oral vancomycin regarding C. difficile colitis and the dose of 100 mg 4 times daily. No fever. No nausea vomiting or abdominal pain. He has reported improvement in his diarrhea and he has had only 1 bowel movement for today. INR is at 3.2. No other labs are available from today. Objective - Vital Signs Vital signs: Vital Signs Temp 98.0 F 03/25/24 08:00 Pulse 60 03/25/24 08:00 Resp 16 03/25/24 08:00 BP 128/78 03/25/24 08:00 Pulse Ox 97 03/25/24 08:00 FiO2 Intake & Output 03/24/24 03/25/24 03/25/24 18:59 06:59 18:59 Intake Total 730 240 120 Output Total 660 975 Balance 70 -735 120 Weight 138 kg Intake: IV 10 Invasive Line 3 10 Oral 720 240 120 Output: Urine 660 975 Other: Voiding Method Indwelling Catheter Indwelling Catheter Indwelling Catheter # Bowel Movements 1 1 2 - Exam No acute distress, oriented 3. No respiratory distress. Currently on room air. HEENT examination is grossly unremarkable. Mucous membranes are moist. No oral lesions. Neck supple. Full range of motion. No adenopathy thyromegaly or neck vein distention. Cardiovascular examination reveals regular rhythm rate. S1-S2 normal. No S3 or S4. No discernible murmur noted. Lungs reveal clear breath sounds. Breath sounds are equal bilaterally. No adventitious lung sounds including wheezes rhonchi or crackles. Abdomen soft bowel sounds are heard. No masses or tenderness. Extremities are intact. No cyanosis or clubbing. Mild edema present. Skin is without rash or lesion. Neurologic examination is brief but nonfocal. - Labs CBC & Chem 7: 03/24/24 08:04 03/24/24 08:04 Labs: Abnormal Lab Results - Last 24 Hours (Table) 03/25/24 03/25/24 Range/Units 06:33 11:09 PT 31.4 H (10.0-12.5) sec INR 3.2 H (<1.2) POC Glucose (mg/dL) 111 H (70-110) mg/dL Microbiology - Last 24 Hours (Table) 03/18/24 19:25 Blood Culture - Final Blood Assessment and Plan Plan: Diarrhea, secondary to C. difficile colitis. Clinically improved and the patient is currently on oral vancomycin Diverticulosis without acute diverticulitis. Nonobstructing left renal cortical calculi. Acute leukocytosis, improved Acute on chronic kidney disease, secondary to severe dehydration, hypotension, and ATN, improved History of heart failure with reduced ejection fraction. Paroxysmal atrial fibrillation. Permanent pacemaker, currently V paced. History of hypertension. History of hyperlipidemia. History of renal stones with previous lithotripsy. History of prostate cancer status post radiation and TURP. History of recurrent UTIs. Obesity, with a BMI of 38.7 kg/m. Plan: Overall respiratory status is stable and the patient is currently on room air oxygen Antibiotics have been discontinued The patient is currently on oral vancomycin regarding C. difficile colitis his diarrhea is improving Remains on oral Lasix INR is noted we will continue to follow v
--- NOTE | 2024-03-25 20:41 | P.PN ---
Subjective Progress Note Date: 03/24/24 On today's evaluation of [id number], the patient is being seen in for a follow-up. Diarrhea is improving. No significant nausea vomiting or abdominal pain. No chest pain. No shortness of breath. The patient is currently on oral vancomycin. The patient also has been maintained on warfarin regarding history of atrial fibrillation. Coumadin is on hold and the patient INR is being monitored. Other comorbidities include previous history of CVA, hypertension, hyperlipidemia, prostate disorder, recurrent UTIs, history of nephrolithiasis, history of atrial fibrillation. The patient is afebrile and hemodynamically stable at this point in time. Objective - Vital Signs Vital signs: Vital Signs Temp 97.7 F 03/24/24 08:10 Pulse 60 03/24/24 08:10 Resp 16 03/24/24 08:10 BP 128/73 03/24/24 08:10 Pulse Ox 95 03/24/24 08:10 FiO2 Intake & Output 03/23/24 03/24/24 03/24/24 18:59 06:59 18:59 Intake Total 726 130 Output Total 1050 1400 Balance -324 -1400 130 Weight 136 kg Intake: IV 10 10 Invasive Line 3 10 10 Oral 716 120 Output: Urine 1050 1400 Other: Voiding Method Indwelling Catheter Indwelling Catheter Indwelling Catheter # Bowel Movements 2 1 - Exam No acute distress, oriented 3. No respiratory distress. Currently on room air. HEENT examination is grossly unremarkable. Mucous membranes are moist. No oral lesions. Neck supple. Full range of motion. No adenopathy thyromegaly or neck vein distention. Cardiovascular examination reveals regular rhythm rate. S1-S2 normal. No S3 or S4. No discernible murmur noted. Lungs reveal clear breath sounds. Breath sounds are equal bilaterally. No adventitious lung sounds including wheezes rhonchi or crackles. Abdomen soft bowel sounds are heard. No masses or tenderness. Extremities are intact. No cyanosis or clubbing. Mild edema present. Skin is without rash or lesion. Neurologic examination is brief but nonfocal. - Labs CBC & Chem 7: 03/24/24 08:04 03/24/24 08:04 Labs: Abnormal Lab Results - Last 24 Hours (Table) 03/24/24 03/24/24 03/24/24 Range/Units 08:04 08:04 08:04 RDW 15.7 H (11.5-15.5) % Neutrophils # 8.7 H (1.3-7.7) k/uL Lymphocytes # 0.6 L (1.0-4.8) k/uL PT 39.3 H (10.0-12.5) sec INR 4.0 H (<1.2) Chloride 111 H (98-107) mmol/L BUN 21 H (9-20) mg/dL Glucose 111 H (74-99) mg/dL Assessment and Plan Plan: Diarrhea, secondary to C. difficile colitis, the patient is currently on oral vancomycin. Hemodynamically stable the patient has no significant nausea or emesis or abdominal pain. Diverticulosis without acute diverticulitis. Nonobstructing left renal cortical calculi. Acute leukocytosis, improved Acute on chronic kidney disease, secondary to severe dehydration, hypotension, and ATN, improving History of heart failure with reduced ejection fraction. Paroxysmal atrial fibrillation. Permanent pacemaker, currently V paced. History of hypertension. History of hyperlipidemia. History of renal stones with previous lithotripsy. History of prostate cancer status post radiation and TURP. History of recurrent UTIs. Obesity, with a BMI of 38.7 kg/m. Plan: Will continue oral vancomycin. Rest of the antibiotics have been discontinued. Patient is on room air oxygen Infectious disease on the case White cell count improved Acute kidney injury improved The patient is out of the intensive care unit for now We will continue to follow Time with Patient: Less than 30
--- NOTE | 2024-03-26 05:39 | P.PN ---
Subjective Progress Note Date: 03/25/24 This is a pleasant 83-year-old male who presented to the emergency department via EMS with lower abdominal pain along with significant diarrhea. Patient reports to having low-grade temps at home and was recently just discharged from [facility] 1 day prior and sent home. Patient does have home care in the [facility] setting due to chronic debility and has been progressively getting worse. Patient reports he is mostly wheelchair-bound and has significant weakness in the lower extremities. Patient reports he follows with Dr. Munoz in the outpatient setting with a past medical history of atrial fibrillation, on Coumadin, history of prostate cancer, heart failure, CVA/TIA, GERD, hyperlipidemia, hypertension, prostate disorder, recurrent UTIs with recent C. difficile and multiple resistance in the urine cultures along with kidney stones. Patient's daughter at the bedside reports he was recently hospitalized over the last few months for UTIs along with kidney stones and had urological procedures including lithotripsies x 2. Patient was admitted with fevers with concerns for sepsis, due to urinary tract infection, episodes of diarrhea and also requiring low-dose pressor support. Patient did undergo CT abdomen in the ER which showed nonobstructing mid to inferior pole left renal cortical ca lcifications, tiny punctate left ureteral vesicle junction calcification is not excluded some minimal left hydroureter may be present with no reoccurrence of prior left hydronephrosis, left renal atrophy, small bilateral pleural effusions with diverticulosis without diverticulitis. EKG showed electronic ventricular pacer heart rate at 74. Labs revealed a white count of 20.8, hemoglobin was stable at 12.7, platelets were 254, INR is 1.9, sodium 135, potassium 3.9, BUN 27, creatinine 1.81, lactic acid 1.8, magnesium 1.8, amylase less than 30, lipase 16 urinalysis revealed a trace of protein and a trace of blood otherwise large leukocytes 169 white count. Virology testing including influenza, COVID, RSV were all negative. On admission to the ED patient did require 3 to 4 L of oxygen with multiple consultations placed on consult and possible ICU admission due to patient continuing to require pressor support. 03/21/2024 Patient admitted with a diagnosis of sepsis, from a urinary source, and also, C. difficile colitis. The patient was seen by my nurse practitioner initially. He is receiving cefepime IV, and oral vancomycin. He is getting saline at 100 cc an hour. Clinically, he appears to be doing better. As soon as he arrived to the ICU, on norepinephrine, Though Nurses Were Able to Shut It off. White count 16.3, hemoglobin 12, hematocrit 37.8, and platelet count 261,000. PT 22.4, INR 2.2, sodium 137, potassium 3.7, chlorides 111, CO2 20, BUN 26, and creatinine 1.61. Calcium is 7.8. patient did test positive for C. difficile colitis, and is on oral vancomycin. Yesterday he was on cefepime IV for possible UTI. White count was 14, hemogl obin 12.6, hematocrit 40.6, and platelet count 283,000. PTT was 30.1 with an INR 3.1. Sodium 137, potassium 3.5, chlorides 110, CO2 22, BUN 25, creatinine 1.42. Calcium was 8.2. 03/22/2024 The patient is seen and evaluated in room at bedside, remains on room air. - The patient did test positive for C. difficile colitis, and is on oral vancomycin. Yesterday he was on cefepime IV for possible UTI. White count was 14, hemoglobin 12.6, hematocrit 40.6, and platelet count 283,000. PTT was 30.1 with an INR 3.1. Sodium 137, potassium 3.5, chlorides 110, CO2 22, BUN 25, creatinine 1.42. Calcium was 8.2. patient presenting to the hospital with weakness lower abdominal pain and diarrhea in this patient who did have a history of C. difficile colitis high clinical suspicious for C. difficile colitis patient also have a positive UA however no significant urinary symptoms except some retention on admission clinically doubt symptomatic UTI, cefepime was discontinued and urine culture has been negative -patient to continue with oral vancomycin add Questran for symptomatic relief did have some improvement in diarrhea and will monitor clinical course closely 03/23 Patient still with diarrhea related to his C. difficile colitis He has mild left lower quadrant pain, minimal tenderness, no guarding or rebound tenderness Aguilar catheter in place Patient states at baseline uses a walker for short distance INR is 5.1 today, Coumadin remains on hold. No hemoglobin test from today yesterday was 12.6 Check labs tomorrow morning Ask for PT/OT evaluation 03/24/24 Diarrhea is improving No abdominal pain or tenderness On oral vancomycin INR today is 4.0, Coumadin on hold. Keep monitoring 03/25/2024 Patient is continued on vancomycin oral for C. difficile with infectious disease following. Diarrhea is improving and patient had 1 bowel movement that is more formed and is continued on Questran. Patient also with generalized weakness evaluated by physical therapy recommending rehab for 11/02 home care which is being arranged as patient is out of rehab days. Per family they would need 24- hour notice to arrange for staffing in the home. Patient is currently afebrile with no reports of chest pain or shortness of breath. Patient reports has been tolerating diet with no further diarrhea noted. PHYSICAL EXAMINATION: GENERAL: The patient is alert and oriented x3, elderly appearing, ill-appearing Well developed, obese HEENT: Pupils are round and equally reacting to light. EOMI. No scleral icterus. No conjunctival pallor. Normocephalic, atraumatic. No pharyngeal erythema. No thyromegaly. CARDIOVASCULAR: S1 and S2 muffled PULMONARY: Diminished breath sounds bilaterally otherwise chest is clear to auscultation, no wheezing or crackles. ABDOMEN: Soft, obese nontender, nondistended, normoactive bowel sounds. No palpable organomegaly. MUSCULOSKELETAL: No joint swelling or deformity. EXTREMITIES: No cyanosis, clubbing, or pedal edema. Bilateral lower extremity swelling NEUROLOGICAL: Gross neurological examination did not reveal any focal deficits. Diffusely weak SKIN: No rashes. Assessment: Acute urinary tract infection with recurrent UTIs and concerns for urosepsis, present on admission requiring pressor support. Patient finished antibiotic Leukocytosis with fever secondary to above Diarrhea a secondary to C. difficile infection and colitis Generalized weakness and mostly wheelchair-bound, recently discharged from [facility] 1 day prior Acute hypoxic respiratory failure on admission secondary to sepsis. Resolved Dehydration secondary to continuous multiple episodes of diarrhea. Resolved coagulopathy secondary to Coumadin Acute kidney injury with acute tubular necrosis, multifactorial likely secondary to diarrhea as well as severe dehydration and hypotension History of paroxysmal atrial fibrillation, maintained on Coumadin Hypertension history Hyperlipidemia history Frequent urinary tract infections and recently underwent lithotripsy x 2 for kidney stones Obesity with a BMI of 38.6 GI prophylaxis DVT prophylaxis Full code Plan: Keep holding Coumadin as INR is going down slightly currently 3.1 Follow-up on repeat INR, CBC, BMP in the a.m. Continue with oral vancomycin per ID recommendations Apparently patient is out of rehab days and case management following making arrangements for discharge planning including home care 11/02. Per daughter at the bedside they need 24-hour notice to arrange for discharge planning Discussed with her there is possible discharge within the next 24 to 48 hours The impression and plan of care has been dictated by Eve Alexander, Nurse Practitioner as directed. Dr. Shayy MD I have performed a history and examination and MDM of this patient, discussed the same with the dictator, and agree with the dictator's assessment and plan as written ,documented as a scribe. Based on total visit time, I have performed more than 50% of the visit. Objective - Vital Signs Vital signs: Vital Signs Temp 98.1 F 03/25/24 04:00 Pulse 60 03/25/24 04:00 Resp 16 03/25/24 04:00 BP 116/66 03/25/24 04:00 Pulse Ox 98 03/25/24 04:00 FiO2 Intake & Output 03/24/24 03/25/24 03/25/24 18:59 06:59 18:59 Intake Total 730 240 120 Output Total 660 975 Balance 70 -735 120 Weight 138 kg Intake: IV 10 Invasive Line 3 10 Oral 720 240 120 Output: Urine 660 975 Other: Voiding Method Indwelling Catheter Indwelling Catheter # Bowel Movements 1 1 1 - Labs CBC & Chem 7: 03/24/24 08:04 03/24/24 08:04 Labs: Abnormal Lab Results - Last 24 Hours (Table) 03/25/24 Range/Units 06:33 PT 31.4 H (10.0-12.5) sec INR 3.2 H (<1.2) Microbiology - Last 24 Hours (Table) 03/18/24 19:25 Blood Culture - Final Blood
[2024-03-26 07:38] LABS: Basophils % (A) 0 %; Eosinophils # (A) 0.1 k/uL (0-0.7); Eosinophils % (A) 1 %; HCT 40.7 % (39.0-53.0); HGB 12.7 gm/dL (13.0-17.5); Hypochromasia Moderate; Lymphocytes # (A) 0.5 k/uL (1.0-4.8); Lymphocytes % (A) 6 %; MCH 27.9 pg (25.0-35.0); MCHC 31.3 g/dL (31.0-37.0); MCV 89.3 fL (80.0-100.0); Mean Platelet Volume 7.7; Monocytes # (A) 0.5 k/uL (0-1.0); Monocytes % (A) 6 %; Neutrophils # (A) 7.9 k/uL (1.3-7.7); Neutrophils % (A) 86 %; Platelet Count 490 k/uL (150-450); RBC 4.56 m/uL (4.30-5.90); RDW 15.5 % (11.5-15.5); WBC 9.2 k/uL (3.8-10.6)
[2024-03-26 07:43] LABS: INR 2.1 (<1.2); Prothrombin Time 20.8 sec (10.0-12.5)
[2024-03-26 07:49] LABS: African American GFR (CKD) 72 (>60 ml/min/1.73 sqM); Anion Gap 5 mmol/L; Blood Urea Nitrogen 17 mg/dL (9-20); Calcium 8.5 mg/dL (8.4-10.2); Carbon Dioxide 25 mmol/L (22-30); Chloride 108 mmol/L (98-107); Glucose 90 mg/dL (74-99); Non-African American GFR(CKD) 62 (>60 ml/min/1.73 sqM); Potassium 3.9 mmol/L (3.5-5.1); Sodium 138 mmol/L (137-145)
--- NOTE | 2024-03-26 08:22 | P.PN ---
Subjective Progress Note Date: 03/25/24 Principal diagnosis: Reason for follow-up is sepsis and C. difficile colitis Patient is a 83-year-old male with a past medical history significant for hypertension hyperlipidemia prostate cancer atrial fibrillation CVA TIA, C. difficile colitis patient was brought into the hospital for evaluation of lower abdominal pain and diarrhea, patient was diagnosed with sepsis with initial admission to the ICU subsequently has been transferred to the telemetry floor. Patient did test positive for C. difficile. On today's evaluation that is 03/25/2024, patient has been afebrile, patient is breathing comfortably and is currently on room air, patient denies having any significant cough no chest pain shortness of breath, patient denies nausea vomiting, no abdominal pain and did have resolution of his diarrhea. Patient did have a INR of 3.2 no CBC was done today Objective - Vital Signs Vital signs: Vital Signs Temp 98.1 F 03/25/24 12:00 Pulse 64 03/25/24 12:00 Resp 16 03/25/24 12:00 BP 114/58 03/25/24 12:00 Pulse Ox 97 03/25/24 12:00 FiO2 Intake & Output 03/24/24 03/25/24 03/25/24 18:59 06:59 18:59 Intake Total 730 240 360 Output Total 660 975 Balance 70 -735 360 Weight 138 kg Intake: IV 10 Invasive Line 3 10 Oral 720 240 360 Output: Urine 660 975 Other: Voiding Method Indwelling Catheter Indwelling Catheter Indwelling Catheter # Bowel Movements 1 1 2 - Exam GENERAL DESCRIPTION: An elderly male lying in bed in no distress RESPIRATORY SYSTEM: Unlabored breathing , decreased breath sounds at bases HEART: S1 S2 regular rate and rhythm , ABDOMEN: Soft , no tenderness EXTREMITIES: No edema feet - Labs CBC & Chem 7: 03/26/24 07:03 03/26/24 07:03 Labs: Abnormal Lab Results - Last 24 Hours (Table) 03/25/24 03/25/24 Range/Units 06:33 11:09 PT 31.4 H (10.0-12.5) sec INR 3.2 H (<1.2) POC Glucose (mg/dL) 111 H (70-110) mg/dL Microbiology - Last 24 Hours (Table) 03/18/24 19:25 Blood Culture - Final Blood Assessment and Plan (1) C. difficile colitis Current Visit: Yes Status: Acute Code(s): A04.72 - ENTEROCOLITIS D/T CLOSTRIDIUM DIFFICILE, NOT SPCF RECUR SNOMED Code(s): 018196910 (2) Sepsis Current Visit: Yes Status: Acute Code(s): A41.9 - SEPSIS, UNSPECIFIED ORGANISM SNOMED Code(s): 69082294 (3) Leukocytosis Current Visit: No Status: Acute Code(s): D72.829 - ELEVATED WHITE BLOOD CELL COUNT, UNSPECIFIED SNOMED Code(s): 603687187 (4) UTI (urinary tract infection) Current Visit: No Status: Acute Code(s): N39.0 - URINARY TRACT INFECTION, SITE NOT SPECIFIED SNOMED Code(s): 95856227 Plan: 1patient presenting to the hospital with weakness lower abdominal pain and diarrhea in this patient who did have a history of C. difficile colitis high clinical suspicious for C. difficile colitis patient also have a positive UA however no significant urinary symptoms except some retention on admission clinically doubt symptomatic UTI, cefepime was discontinued and urine culture has been negative 2-patient white count has normalized and did have improvement in his diarrhea 3patient did have clinical improvement plan is for a 2-week course of oral vancomycin on discharge Questran as needed Dictation was produced using [employer] dictation software. please excuse any grammatical, word or spelling errors. Time with Patient: Less than 30
[2024-03-26] MEDS: VANCOMYCIN 125 MG CAPSULE PO SCH (09:10)
--- NOTE | 2024-03-26 15:03 | P.PN ---
Subjective Progress Note Date: 03/26/24 Principal diagnosis: Reason for follow-up is sepsis and C. difficile colitis Patient is a 83-year-old male with a past medical history significant for hypertension hyperlipidemia prostate cancer atrial fibrillation CVA TIA, C. difficile colitis patient was brought into the hospital for evaluation of lower abdominal pain and diarrhea, patient was diagnosed with sepsis with initial admission to the ICU subsequently has been transferred to the telemetry floor. Patient did test positive for C. difficile. On today's evaluation that is 03/25/2024, patient has been afebrile, patient is breathing comfortably and is currently on room air, patient denies having any significant cough no chest pain shortness of breath, patient denies nausea vomiting or abdominal pain and did have resolution of his diarrhea. Patient white was 9.2, creat is 1.10 Objective - Vital Signs Vital signs: Vital Signs Temp 98.2 F 03/26/24 12:00 Pulse 64 03/26/24 14:00 Resp 18 03/26/24 14:00 BP 150/70 03/26/24 12:00 Pulse Ox 95 03/26/24 12:00 FiO2 Intake & Output 03/25/24 03/26/24 03/26/24 18:59 06:59 18:59 Intake Total 360 660 Output Total 6400 1220 700 Balance -6040 -1220 -40 Weight 138 kg 133.5 kg Intake: Oral 360 660 Output: Urine 6400 1220 700 Uretheral (Aguilar) 1700 Other: Voiding Method Indwelling Catheter Indwelling Catheter Indwelling Catheter # Bowel Movements 1 1 1 - Exam GENERAL DESCRIPTION: An elderly male lying in bed in no distress RESPIRATORY SYSTEM: Unlabored breathing , decreased breath sounds at bases HEART: S1 S2 regular rate and rhythm , ABDOMEN: Soft , no tenderness EXTREMITIES: No edema feet - Labs CBC & Chem 7: 03/26/24 07:03 03/26/24 07:03 Labs: Abnormal Lab Results - Last 24 Hours (Table) 03/26/24 03/26/24 03/26/24 Range/Units 07:03 07:03 07:03 Hgb 12.7 L (13.0-17.5) gm/dL Plt Count 490 H (150-450) k/uL Neutrophils # 7.9 H (1.3-7.7) k/uL Lymphocytes # 0.5 L (1.0-4.8) k/uL PT 20.8 H (10.0-12.5) sec INR 2.1 H (<1.2) Chloride 108 H (98-107) mmol/L Assessment and Plan (1) C. difficile colitis Current Visit: Yes Status: Acute Code(s): A04.72 - ENTEROCOLITIS D/T CLOSTRIDIUM DIFFICILE, NOT SPCF RECUR SNOMED Code(s): 337320490 (2) Sepsis Current Visit: Yes Status: Acute Code(s): A41.9 - SEPSIS, UNSPECIFIED ORGANISM SNOMED Code(s): 72825303 (3) Leukocytosis Current Visit: No Status: Acute Code(s): D72.829 - ELEVATED WHITE BLOOD CELL COUNT, UNSPECIFIED SNOMED Code(s): 501418472 (4) UTI (urinary tract infection) Current Visit: No Status: Acute Code(s): N39.0 - URINARY TRACT INFECTION, SITE NOT SPECIFIED SNOMED Code(s): 34097799 Plan: 1patient presenting to the hospital with weakness lower abdominal pain and diarrhea in this patient who did have a history of C. difficile colitis high clinical suspicious for C. difficile colitis patient also have a positive UA however no significant urinary symptoms except some retention on admission clinically doubt symptomatic UTI, cefepime was discontinued and urine culture has been negative 2-patient white count has normalized and did have improvement in his diarrhea 3patient did have clinical improvement plan is for a 2-week course of oral vancomycin to 50 mg p.o. every 6 hours on discharge and close outpatient follow- up discussed with the patient importance of taking probiotic and yogurt to prevent relapse of his infection Dictation was produced using [employer] dictation software. please excuse any grammatical, word or spelling errors. Time with Patient: Less than 30
--- NOTE | 2024-03-26 15:09 | P.PN ---
Subjective Progress Note Date: 03/26/24 On today's evaluation of [id number], the patient is being seen in for a follow-up. Diarrhea is improving. No significant nausea vomiting or abdominal pain. No chest pain. No shortness of breath. The patient is currently on oral vancomycin. The patient also has been maintained on warfarin regarding history of atrial fibrillation. Coumadin is on hold and the patient INR is being monitored. Other comorbidities include previous history of CVA, hypertension, hyperlipidemia, prostate disorder, recurrent UTIs, history of nephrolithiasis, history of atrial fibrillation. The patient is afebrile and hemodynamically stable at this point in time. 03/26/2024, no new complaints the patient remains on vancomycin orally. The patient is also on anticoagulation with warfarin. INR is at 2.1. White cell count is at 9.2 with hemoglobin 12.7, electrolytes are within normal limits, BUN 17 with a creatinine of 1.1. Patient is on Lasix 40 mg p.o. daily. The patient is on Questran. No other significant events overnight. Hemodynamically stable the patient remains on room air oxygen. The patient remains afebrile. Objective - Vital Signs Vital signs: Vital Signs Temp 98.2 F 03/26/24 12:00 Pulse 64 03/26/24 14:00 Resp 18 03/26/24 14:00 BP 150/70 03/26/24 12:00 Pulse Ox 95 03/26/24 12:00 FiO2 Intake & Output 03/25/24 03/26/24 03/26/24 18:59 06:59 18:59 Intake Total 360 660 Output Total 6400 1220 700 Balance -6040 -1220 -40 Weight 138 kg 133.5 kg Intake: Oral 360 660 Output: Urine 6400 1220 700 Uretheral (Aguilar) 1700 Other: Voiding Method Indwelling Catheter Indwelling Catheter Indwelling Catheter # Bowel Movements 1 1 1 - Exam No acute distress, oriented 3. No respiratory distress. Currently on room a ir. HEENT examination is grossly unremarkable. Mucous membranes are moist. No oral lesions. Neck supple. Full range of motion. No adenopathy thyromegaly or neck vein distention. Cardiovascular examination reveals regular rhythm rate. S1-S2 normal. No S3 or S4. No discernible murmur noted. Lungs reveal clear breath sounds. Breath sounds are equal bilaterally. No adventitious lung sounds including wheezes rhonchi or crackles. Abdomen soft bowel sounds are heard. No masses or tenderness. Extremities are intact. No cyanosis or clubbing. Mild edema present. Skin is without rash or lesion. Neurologic examination is brief but nonfocal. - Labs CBC & Chem 7: 03/26/24 07:03 03/26/24 07:03 Labs: Abnormal Lab Results - Last 24 Hours (Table) 03/26/24 03/26/24 03/26/24 Range/Units 07:03 07:03 07:03 Hgb 12.7 L (13.0-17.5) gm/dL Plt Count 490 H (150-450) k/uL Neutrophils # 7.9 H (1.3-7.7) k/uL Lymphocytes # 0.5 L (1.0-4.8) k/uL PT 20.8 H (10.0-12.5) sec INR 2.1 H (<1.2) Chloride 108 H (98-107) mmol/L Assessment and Plan Plan: Diarrhea, secondary to C. difficile colitis, the patient is currently on oral vancomycin. Hemodynamically stable the patient has no significant nausea or emesis or abdominal pain. Diverticulosis without acute diverticulitis. Nonobstructing left renal cortical calculi. Acute leukocytosis, improved Acute on chronic kidney disease, secondary to severe dehydration, hypotension, and ATN, improving History of heart failure with reduced ejection fraction. Paroxysmal atrial fibrillation. Permanent pacemaker, currently V paced. History of hypertension. History of hyperlipidemia. History of renal stones with previous lithotripsy. History of prostate cancer status post radiation and TURP. History of recurrent UTIs. Obesity, with a BMI of 38.7 kg/m. Plan: Will continue oral vancomycin. Rest of the antibiotics have been discontinued. Patient is on room air oxygen Infectious disease on the case White cell count improved Acute kidney injury improved Clinically stable and pulmonary critical care services will sign off the case. Time with Patient: Less than 30
--- NOTE | 2024-03-26 15:22 | P.PN ---
Subjective Progress Note Date: 03/26/24 This is a pleasant 83-year-old male who presented to the emergency department via EMS with lower abdominal pain along with significant diarrhea. Patient reports to having low-grade temps at home and was recently just discharged from [facility] 1 day prior and sent home. Patient does have home care in the [facility] setting due to chronic debility and has been progressively getting worse. Patient reports he is mostly wheelchair-bound and has significant weakness in the lower extremities. Patient reports he follows with Dr. Munoz in the outpatient setting with a past medical history of atrial fibrillation, on Coumadin, history of prostate cancer, heart failure, CVA/TIA, GERD, hyperlipidemia, hypertension, prostate disorder, recurrent UTIs with recent C. difficile and multiple resistance in the urine cultures along with kidney stones. Patient's daughter at the bedside reports he was recently hospitalized over the last few months for UTIs along with kidney stones and had urological procedures including lithotripsies x 2. Patient was admitted with fevers with concerns for sepsis, due to urinary tract infection, episodes of diarrhea and also requiring low-dose pressor support. Patient did undergo CT abdomen in the ER which showed nonobstructing mid to inferior pole left renal cortical ca lcifications, tiny punctate left ureteral vesicle junction calcification is not excluded some minimal left hydroureter may be present with no reoccurrence of prior left hydronephrosis, left renal atrophy, small bilateral pleural effusions with diverticulosis without diverticulitis. EKG showed electronic ventricular pacer heart rate at 74. Labs revealed a white count of 20.8, hemoglobin was stable at 12.7, platelets were 254, INR is 1.9, sodium 135, potassium 3.9, BUN 27, creatinine 1.81, lactic acid 1.8, magnesium 1.8, amylase less than 30, lipase 16 urinalysis revealed a trace of protein and a trace of blood otherwise large leukocytes 169 white count. Virology testing including influenza, COVID, RSV were all negative. On admission to the ED patient did require 3 to 4 L of oxygen with multiple consultations placed on consult and possible ICU admission due to patient continuing to require pressor support. 03/21/2024 Patient admitted with a diagnosis of sepsis, from a urinary source, and also, C. difficile colitis. The patient was seen by my nurse practitioner initially. He is receiving cefepime IV, and oral vancomycin. He is getting saline at 100 cc an hour. Clinically, he appears to be doing better. As soon as he arrived to the ICU, on norepinephrine, Though Nurses Were Able to Shut It off. White count 16.3, hemoglobin 12, hematocrit 37.8, and platelet count 261,000. PT 22.4, INR 2.2, sodium 137, potassium 3.7, chlorides 111, CO2 20, BUN 26, and creatinine 1.61. Calcium is 7.8. patient did test positive for C. difficile colitis, and is on oral vancomycin. Yesterday he was on cefepime IV for possible UTI. White count was 14, hemogl obin 12.6, hematocrit 40.6, and platelet count 283,000. PTT was 30.1 with an INR 3.1. Sodium 137, potassium 3.5, chlorides 110, CO2 22, BUN 25, creatinine 1.42. Calcium was 8.2. 03/22/2024 The patient is seen and evaluated in room at bedside, remains on room air. - The patient did test positive for C. difficile colitis, and is on oral vancomycin. Yesterday he was on cefepime IV for possible UTI. White count was 14, hemoglobin 12.6, hematocrit 40.6, and platelet count 283,000. PTT was 30.1 with an INR 3.1. Sodium 137, potassium 3.5, chlorides 110, CO2 22, BUN 25, creatinine 1.42. Calcium was 8.2. patient presenting to the hospital with weakness lower abdominal pain and diarrhea in this patient who did have a history of C. difficile colitis high clinical suspicious for C. difficile colitis patient also have a positive UA however no significant urinary symptoms except some retention on admission clinically doubt symptomatic UTI, cefepime was discontinued and urine culture has been negative -patient to continue with oral vancomycin add Questran for symptomatic relief did have some improvement in diarrhea and will monitor clinical course closely 03/23 Patient still with diarrhea related to his C. difficile colitis He has mild left lower quadrant pain, minimal tenderness, no guarding or rebound tenderness Aguilar catheter in place Patient states at baseline uses a walker for short distance INR is 5.1 today, Coumadin remains on hold. No hemoglobin test from today yesterday was 12.6 Check labs tomorrow morning Ask for PT/OT evaluation 03/24/24 Diarrhea is improving No abdominal pain or tenderness On oral vancomycin INR today is 4.0, Coumadin on hold. Keep monitoring 03/25/2024 Patient is continued on vancomycin oral for C. difficile with infectious disease following. Diarrhea is improving and patient had 1 bowel movement that is more formed and is continued on Questran. Patient also with generalized weakness evaluated by physical therapy recommending rehab for 24/7 home care which is being arranged as patient is out of rehab days. Per family they would need 24- hour notice to arrange for staffing in the home. Patient is currently afebrile with no reports of chest pain or shortness of breath. Patient reports has been tolerating diet with no further diarrhea noted. 03/26/2024 Patient is seen in follow-up today with no acute overnight issues noted and maintained on oral Vanco with infectious disease following. Patient's bowel movements have improved and is continued on Questran. Patient family arranging for 24/7 home care as patient is extremely weak and prolonged hospitalization although patient has no further days left at a nursing home facility. Patient will be returning home with home care and 24/7 staff available. Given patient's significant comorbidities and clinical decline over the last few months, patient is high risk for multiple readmissions. PHYSICAL EXAMINATION: GENERAL: The patient is alert and oriented x3, elderly appearing, ill-appearing Well developed, obese HEENT: Pupils are round and equally reacting to light. EOMI. No scleral icterus. No conjunctival pallor. Normocephalic, atraumatic. No pharyngeal erythema. No thyromegaly. CARDIOVASCULAR: S1 and S2 muffled PULMONARY: Diminished breath sounds bilaterally otherwise chest is clear to auscultation, no wheezing or crackles. ABDOMEN: Soft, obese nontender, nondistended, normoactive bowel sounds. No palpable organomegaly. MUSCULOSKELETAL: No joint swelling or deformity. EXTREMITIES: No cyanosis, clubbing, or pedal edema. Bilateral lower extremity swelling NEUROLOGICAL: Gross neurological examination did not reveal any focal deficits. Diffusely weak SKIN: No rashes. Assessment: Acute urinary tract infection with recurrent UTIs and concerns for urosepsis, present on admission requiring pressor support. Patient finished antibiotic Leukocytosis with fever secondary to above Diarrhea a secondary to C. difficile infection and colitis Generalized weakness and mostly wheelchair-bound, recently discharged from [facility] 1 day prior Acute hypoxic respiratory failure on admission secondary to sepsis. Resolved Dehydration secondary to continuous multiple episodes of diarrhea. Resolved coagulopathy secondary to Coumadin Acute kidney injury with acute tubular necrosis, multifactorial likely secondary to diarrhea as well as severe dehydration and hypotension History of paroxysmal atrial fibrillation, maintained on Coumadin Hypertension history Hyperlipidemia history Frequent urinary tract infections and recently underwent lithotripsy x 2 for kidney stones Obesity with a BMI of 38.6 GI prophylaxis DVT prophylaxis Full code Plan: INR is improved and pharmacy to dose Coumadin Patient is continued on oral Vanco and will continue 4 times daily for a 2-week course on discharge. Continue with Questran Apparently patient is out of rehab days and case management following making arrangements for discharge planning including home care 11/02. Per daughter at the bedside they need 24-hour notice to arrange for discharge planning. Daughter is contacting 11/02 care and also arranging for discharge planning needs including a Ji lift at the home. Patient will be discharged in 24 hours The impression and plan of care has been dictated by Eve Alexander, Nurse Practitioner as directed. Dr. Shayy MD I have performed a history and examination and MDM of this patient, discussed the same with the dictator, and agree with the dictator's assessment and plan as written ,documented as a scribe. Based on total visit time, I have performed more than 50% of the visit. Objective - Vital Signs Vital signs: Vital Signs Temp 97.1 F L 03/26/24 08:10 Pulse 64 03/26/24 08:10 Resp 18 03/26/24 08:10 BP 144/68 03/26/24 08:10 Pulse Ox 97 03/26/24 08:10 FiO2 Intake & Output 03/25/24 03/26/24 03/26/24 18:59 06:59 18:59 Intake Total 360 660 Output Total 6400 1220 700 Balance -6040 -1220 -40 Weight 138 kg 133.5 kg Intake: Oral 360 660 Output: Urine 6400 1220 700 Uretheral (Aguilar) 1700 Other: Voiding Method Indwelling Catheter Indwelling Catheter Indwelling Catheter # Bowel Movements 1 1 1 - Labs CBC & Chem 7: 03/26/24 07:03 03/26/24 07:03 Labs: Abnormal Lab Results - Last 24 Hours (Table) 03/26/24 03/26/24 03/26/24 Range/Units 07:03 07:03 07:03 Hgb 12.7 L (13.0-17.5) gm/dL Plt Count 490 H (150-450) k/uL Neutrophils # 7.9 H (1.3-7.7) k/uL Lymphocytes # 0.5 L (1.0-4.8) k/uL PT 20.8 H (10.0-12.5) sec INR 2.1 H (<1.2) Chloride 108 H (98-107) mmol/L
[2024-03-26] MEDS: WARFARIN 3 MG TAB PO ONE (18:26)
[2024-03-27 07:10] LABS: INR 1.6 (<1.2); Prothrombin Time 16.2 sec (10.0-12.5)
[2024-03-27 09:40] VITALS: RESP 16
[2024-03-27 12:06] VITALS: BP 154/77; PULSE 66; TEMP 98.3
[2024-03-27] MEDS: WARFARIN 2 MG TAB PO ONE (14:48)
--- NOTE | 2024-03-27 15:09 | P.PN ---
Subjective Progress Note Date: 03/27/24 Principal diagnosis: Reason for follow-up is sepsis and C. difficile colitis Patient is a 83-year-old male with a past medical history significant for hypertension hyperlipidemia prostate cancer atrial fibrillation CVA TIA, C. difficile colitis patient was brought into the hospital for evaluation of lower abdominal pain and diarrhea, patient was diagnosed with sepsis with initial admission to the ICU subsequently has been transferred to the telemetry floor. Patient did test positive for C. difficile. On today's evaluation that is 03/27/2024,the patient denies any fever or any chills, patient is breathing comfortably on room air, the patient denies chest pain shortness of breath and no significant cough, patient denies abdominal pain, no nausea vomiting and did have resolution of his diarrhea. Patient did have INR 1.6 no CBC was done today blood urine culture have been negative Objective - Vital Signs Vital signs: Vital Signs Temp 98.3 F 03/27/24 12:01 Pulse 66 03/27/24 12:01 Resp 16 03/27/24 12:01 BP 154/77 03/27/24 12:01 Pulse Ox 96 03/27/24 12:01 FiO2 Intake & Output 03/26/24 03/27/24 03/27/24 18:59 06:59 18:59 Intake Total 840 358 Output Total 3600 925 Balance -2760 -925 358 Weight 131 kg Intake: Oral 840 358 Output: Urine 3600 925 Other: Voiding Method Indwelling Catheter Indwelling Catheter Indwelling Catheter # Bowel Movements 1 1 - Exam GENERAL DESCRIPTION: An elderly male lying in bed in no distress RESPIRATORY SYSTEM: Unlabored breathing , decreased breath sounds at bases HEART: S1 S2 regular rate and rhythm , ABDOMEN: Soft , no tenderness EXTREMITIES: No edema feet - Labs CBC & Chem 7: 03/26/24 07:03 03/26/24 07:03 Labs: Abnormal Lab Results - Last 24 Hours (Table) 03/27/24 Range/Units 06:05 PT 16.2 H (10.0-12.5) sec INR 1.6 H (<1.2) Assessment and Plan (1) C. difficile colitis Current Visit: Yes Status: Acute Code(s): A04.72 - ENTEROCOLITIS D/T CLOSTRIDIUM DIFFICILE, NOT SPCF RECUR SNOMED Code(s): 963179257 (2) Sepsis Current Visit: Yes Status: Acute Code(s): A41.9 - SEPSIS, UNSPECIFIED ORGANISM SNOMED Code(s): 65753969 (3) Leukocytosis Current Visit: No Status: Acute Code(s): D72.829 - ELEVATED WHITE BLOOD CELL COUNT, UNSPECIFIED SNOMED Code(s): 982719166 (4) UTI (urinary tract infection) Current Visit: No Status: Acute Code(s): N39.0 - URINARY TRACT INFECTION, SITE NOT SPECIFIED SNOMED Code(s): 71173751 Plan: 1patient presenting to the hospital with weakness lower abdominal pain and di arrhea in this patient who did have a history of C. difficile colitis high clinical suspicious for C. difficile colitis patient also have a positive UA however no significant urinary symptoms except some retention on admission clinically doubt symptomatic UTI, cefepime was discontinued and urine culture has been negative 2-patient white count has normalized and did have improvement in his diarrhea 3patient advised 2-week course of oral vancomycin 250 mg p.o. every 6 hours on discharge and close outpatient follow-up Dictation was produced using [employer] dictation software. please excuse any gra mmatical, word or spelling errors. Time with Patient: Less than 30
--- NOTE | 2024-04-04 09:08 | P.DS ---
Providers Date of admission: 03/18/24 20:37 Expected date of discharge: 03/26/24 Attending physician: Carina Knott Consults: 03/19/24 09:40 Consult Physician Urgent Consulting Provider: Aj Castillo Consult Reason/Comments: uti with sepsis and septic shock Do you want consulting provider notified?: Yes 03/19/24 10:16 Consult Physician Routine Consulting Provider: Steve Peraza Consult Reason/Comments: ICU patient Do you want consulting provider notified?: Already Contacted Primary care physician: Celina Munoz Hospital Course: Final diagnosis Acute urinary tract infection with recurrent UTIs and urosepsis, present on admission requiring pressor support. Patient finished antibiotic Leukocytosis with fever secondary to above Diarrhea a secondary to C. difficile infection and colitis Generalized weakness and mostly wheelchair-bound, recently discharged from [facility] 1 day prior Acute hypoxic respiratory failure on admission secondary to sepsis. Resolved Dehydration secondary to continuous multiple episodes of diarrhea. Resolved coagulopathy secondary to Coumadin Acute kidney injury with acute tubular necrosis, multifactorial likely secondary to diarrhea as well as severe dehydration and hypotension History of paroxysmal atrial fibrillation, maintained on Coumadin Hypertension history Hyperlipidemia history Frequent urinary tract infections and recently underwent lithotripsy x 2 for kidney stones Obesity with a BMI of 38.6 GI prophylaxis DVT prophylaxis Full code Discharge disposition Patient is being discharged in a stable condition with guarded prognosis to home with 24/7 care and home care. Patient will follow-up with Dr. Munoz in the outpatient setting upon discharge. Patient is to continue with oral antibiotic in the form of vancomycin per ID recommendations for the next 2 weeks. Recommend outpatient follow-up with urology as scheduled. Total time taken is greater than 35 minutes. Hospital course This is a 83-year-old male who was recently admitted with sepsis with concerns of urosepsis with significant leukocytosis being closely monitored. Patient has received adequate antibiotic therapy for urinary tract infection also noted to have episodes of diarrhea and was positive for C. difficile. Patient's diarrhea has improved and patient is maintained on Questran as well as oral Vanco and will continue a 2-week course of oral Vanco 4 times daily per ID recommendations on discharge. Patient with significant weakness and medical debility recommending rehab although patient has run out of days and is being arranged for home care with 24/7 caregivers being provided and will be returning home. Please refer to other consultation notes for further HPI. Currently no reports of chest pain, shortness of breath, or palpitations. Patient is afebrile. No reports of nausea or vomiting and patient is tolerating diet. Patient will be discharged home today. Guarded prognosis and high risk for readmissions given patient's significant comorbidities. Physical exam: Gen: This is a 83-year-old male who is awake, alert and oriented x 3, well- developed, elderly appearing, ill-appearing HEENT: Head is atraumatic, normocephalic. Pupils equal, round. Sclerae is anicteric. NECK: Supple. No JVD. No lymphadenopathy. No thyromegaly. LUNGS: Diminished breath sounds bilaterally otherwise clear to auscultation. No wheezes or rhonchi. No intercostal retractions. HEART: S1, S2 are muffled ABDOMEN: Soft. Obese. Bowel sounds are present. No masses. No tenderness. EXTREMITIES: No pedal edema. No calf tenderness. NEUROLOGICAL: Patient is awake, alert and oriented x3. Cranial nerves 2 through 12 are grossly intact. Diffusely weak Please refer to medication reconciliation sheet for a list of medications. The impression and plan of care has been dictated by Eve Alexander, Nurse Practitioner as directed. Dr. Shayy MD I have performed a history and examination and MDM of this patient, discussed the same with the dictator, and agree with the dictator's assessment and plan as written ,documented as a scribe. Based on total visit time, I have performed more than 50% of the visit. Patient Condition at Discharge: Fair Plan - Discharge Summary Discharge Rx Participant: No New Discharge Prescriptions: New Nystatin 100,000 Unit/gm Powd [Mycostatin Powder] 1 applic TOPICAL BID each Cholestyramine (with Sugar) [Questran Packet] 4 gm PO BID@1000,2100 #28 packet Vancomycin Oral Solution [Vancomycin HCl Oral Soln] 250 mg PO Q6HR 14 Days #280 ml Continue atenoloL 25 mg PO BID Albuterol Inhaler [Ventolin Hfa Inhaler] 2 puff INHALATION RT-Q6H PRN each PRN Reason: Shortness Of Breath Or Wheezing Warfarin [Coumadin] 3 mg PO SUWESA@2100 Warfarin Sodium 4 mg PO MOTUTHFR@2100 Furosemide [Lasix] 40 mg PO DAILY Acetaminophen [Tylenol] 1,000 mg PO Q6H PRN PRN Reason: Pain Ramelteon 8 mg PO HS Lactobacillus Acidophilus [Acidophilus Probiotic] 1 cap PO BID Potassium Chloride ER [K-Dur 10] 10 meq PO DAILY Discontinued Sodium Bicarbonate Tab 650 mg PO BID tab Cephalexin [Keflex] 250 mg PO TID Discharge Medication List Acetaminophen [Tylenol] 1,000 mg PO Q6H PRN 05/30/21 [History] atenoloL 25 mg PO BID 12/15/23 [History] Albuterol Inhaler [Ventolin Hfa Inhaler] 2 puff INHALATION RT-Q6H PRN each 12/27/23 [Rx] Ramelteon 8 mg PO HS 01/10/24 [History] Lactobacillus Acidophilus [Acidophilus Probiotic] 1 cap PO BID 01/15/24 [History] Furosemide [Lasix] 40 mg PO DAILY 03/18/24 [History] Potassium Chloride ER [K-Dur 10] 10 meq PO DAILY 03/18/24 [History] Warfarin Sodium 4 mg PO MOTUTHFR@209903/18/24 [History] Warfarin [Coumadin] 3 mg PO SUWESA@209903/18/24 [History] Cholestyramine (with Sugar) [Questran Packet] 4 gm PO BID@999,2099 #28 packet 03/26/24 [Rx] Nystatin 100,000 Unit/gm Powd [Mycostatin Powder] 1 applic TOPICAL BID each 03/26/24 [Rx] Vancomycin Oral Solution [Vancomycin HCl Oral Soln] 250 mg PO Q6HR 14 Days #280 ml 03/26/24 [Rx] Follow up Appointment(s)/Referral(s): Residential Home,Health [NON-STAFF] - Celina Munoz MD [Primary Care Provider] - 1-2 days Aj Castillo MD [STAFF PHYSICIAN] - 1 Week Activity/Diet/Wound Care/Special Instructions: Patient requires a sit to stand lift to assist with transfer from bed to chair, without the use of the lift patient would be bedbound Patient has 11/02 private duty caregivers - family needs 24hr notice for discharge so they can arrange for caregivers Activity limited until follow-up Follow-up with primary care provider on discharge Continue vancomycin oral for the next 2 weeks on discharge Discharge Disposition: HOME WITH HOME HEALTH SERVICES
== END 2024-03-27 16:11 | disposition home health service (06) | DRG 871 ==
LOC: SUPCPDRO 14:56 → EC 14:56 → 3SCARD 20:37 → 2SICU 03-19 04:10 → 3SCARD 03-19 22:57
PROVIDERS: ADMIT Hospitalist; ATTEND Hospitalist
PROC: 3E043XZ Introduction of Vasopressor into Central Vein, Percutaneous Approach (ICD-10-PCS; principal; 2024-03-19)
DX: A41.9 Sepsis, unspecified organism (principal); J96.01 Acute respiratory failure with hypoxia; N17.0 Acute kidney failure with tubular necrosis; R65.21 Severe sepsis with septic shock; A04.72 Enterocolitis due to Clostridium difficile, not specified as recurrent; I13.0 Hypertensive heart and chronic kidney disease with heart failure and stage 1 through stage 4 chronic kidney disease, or unspecified chronic kidney disease; I50.22 Chronic systolic (congestive) heart failure; N39.0 Urinary tract infection, site not specified; D68.32 Hemorrhagic disorder due to extrinsic circulating anticoagulants; E66.9 Obesity, unspecified; E78.5 Hyperlipidemia, unspecified; E86.0 Dehydration; I48.0 Paroxysmal atrial fibrillation; K57.30 Diverticulosis of large intestine without perforation or abscess without bleeding; N18.9 Chronic kidney disease, unspecified; N40.0 Benign prostatic hyperplasia without lower urinary tract symptoms; K21.9 Gastro-esophageal reflux disease without esophagitis; Z68.38 Body mass index [BMI] 38.0-38.9, adult; M19.90 Unspecified osteoarthritis, unspecified site; Z79.01 Long term (current) use of anticoagulants; Z79.899 Other long term (current) drug therapy; T45.515A Adverse effect of anticoagulants, initial encounter; Z85.46 Personal history of malignant neoplasm of prostate; Z86.19 Personal history of other infectious and parasitic diseases; Z86.73 Personal history of transient ischemic attack (TIA), and cerebral infarction without residual deficits; Z87.440 Personal history of urinary (tract) infections; Z87.442 Personal history of urinary calculi; Z87.891 Personal history of nicotine dependence; Z92.3 Personal history of irradiation; Z95.0 Presence of cardiac pacemaker; Z99.3 Dependence on wheelchair; Z20.822 Contact with and (suspected) exposure to COVID-19; Z90.79 Acquired absence of other genital organ(s); Z28.21 Immunization not carried out because of patient refusal
CPT/HCPCS: 36415; 71045; 74176; 80048; 80053; 81001; 82150; 83605; 83690; 83735; 85025; 85610; 85730; 87040; 87086; 87324; 87636; 93005; 94760; 96365; 96366; 96367; 96368; 96375; 99291

== ENCOUNTER 2024-04-30 09:47 | Inpatient (IN) | payer MEDICARE, BC ==
[2024-04-30 10:46] LABS: Basophils # (A) 0.1 k/uL (0-0.2); Basophils % (A) 0 %; Eosinophils # (A) 0.2 k/uL (0-0.7); Eosinophils % (A) 1 %; HCT 44.4 % (39.0-53.0); Lymphocytes # (A) 0.4 k/uL (1.0-4.8); Lymphocytes % (A) 1 %; MCH 27.1 pg (25.0-35.0); MCHC 31.5 g/dL (31.0-37.0); MCV 85.8 fL (80.0-100.0); Mean Platelet Volume 7.1; Monocytes # (A) 1.5 k/uL (0-1.0); Monocytes % (A) 5 %; Neutrophils # (A) 28.2 k/uL (1.3-7.7); Neutrophils % (A) 92 %; Platelet Count 290 k/uL (150-450); RBC 5.17 m/uL (4.30-5.90); RDW 15.2 % (11.5-15.5); WBC 30.5 k/uL (3.8-10.6)
[2024-04-30] MEDS: ACETAMINOPHEN TAB 500 MG TAB PO STA (10:49)
[2024-04-30] MEDS: SODIUM CHLORIDE 0.9% 1,000 ML IV STA (10:49)
[2024-04-30 10:54] LABS: Prothrombin Time 19.9 sec (10.0-12.5)
[2024-04-30 10:56] LABS: ALT 24 U/L (4-49); AST 28 U/L (17-59); African American GFR (CKD) 38 (>60 ml/min/1.73 sqM); Albumin 3.6 g/dL (3.5-5.0); Alkaline Phosphatase 71 U/L (38-126); Anion Gap 9 mmol/L; Blood Urea Nitrogen 28 mg/dL (9-20); Carbon Dioxide 22 mmol/L (22-30); Chloride 108 mmol/L (98-107); Glucose 112 mg/dL (74-99); Non-African American GFR(CKD) 33 (>60 ml/min/1.73 sqM); Potassium 4.6 mmol/L (3.5-5.1); Sodium 139 mmol/L (137-145); Total Bilirubin 1.1 mg/dL (0.2-1.3); Total Protein 6.4 g/dL (6.3-8.2)
[2024-04-30 11:04] LABS: NT-Pro-B-Type Natriuretic Pept 5690 pg/mL
[2024-04-30 11:11] LABS: Toxic Granulation Present
[2024-04-30 11:23] LABS: Appearance,Urine Turbid (Clear); Bacteria,Urine Many /hpf; Bilirubin,Urine Negative (Negative); Blood,Urine Moderate (Negative); Color,Urine Yellow; Glucose,Urine (UA) Negative (Negative); Ketones,Urine Negative (Negative); Leukocyte Esterase,Urine Large (Negative); Nitrite,Urine Positive (Negative); Protein,Urine 1+ (Negative); RBC,Urine 28 /hpf (0-5); Specific Gravity,Urine 1.017 (1.001-1.035); Squamous Epithelial Cell,Urine 4 /hpf (0-4); Urobilinogen,Urine <2.0 mg/dL (<2.0); WBC,Urine >182 /hpf (0-5)
--- NOTE | 2024-04-30 11:40 | XR ---
EXAMINATION TYPE: XR chest 2V DATE OF EXAM: 04/30/2024 COMPARISON: 03/19/2024 HISTORY: 83-year-old male with weakness TECHNIQUE: AP and lateral views FINDINGS: ACDF hardware. Left anterior chest wall pacemaker generator with right atrial and ventricular leads. Heart border line enlarged. Some streaky areas of atelectasis are present. There is posterior bulging convexity on the lateral view posterior lung base. Otherwise, no consolidation or pleural effusion. IMPRESSION: Mild cardiomegaly but with posterior bulging in the expected region of the heart on the lateral view. Correlate for underlying moderate-sized pericardial effusion. [facility], , 04/30/2024 11:38 AM
[2024-04-30] MEDS: SODIUM CHLORIDE 0.9% 1,000 ML IV ONE (12:11)
[2024-04-30] MEDS: MEROPENEM 2 GM in SODIUM CHLORIDE 0.9% 100 ML IVPB STA (12:34)
--- NOTE | 2024-04-30 12:55 | ED ---
Weakness HPI - General Chief complaint: Weakness Stated complaint: Weakness Time Seen by Provider: 04/30/24 10:05 Source: EMS Mode of arrival: EMS - History of Present Illness Initial comments: 83-year-old male presents emergency department for weakness. Patient woke up this morning and was significantly weak. He took Tylenol around 2 AM for a fever. He denies any sick contacts. No nausea or vomiting. No abdominal pain. Patient recently had C. difficile and was on vancomycin. He finished the whole course. He does get frequent urinary tract infections. He denies any chest pain or shortness of breath. No difficulty breathing. He has had some diarrhea however not the caliber when he had C. difficile. No other alleviating, precipitating or modifying factors - Related Data Home Medications Medication Instructions Recorded Confirmed Acetaminophen [Tylenol] 1,000 mg PO Q6H PRN 05/30/21 04/30/24 Ramelteon 8 mg PO HS 01/10/24 04/30/24 Potassium Chloride ER [K-Dur 10] 10 meq PO DAILY 03/18/24 04/30/24 Nystatin 100,000 Unit/gm Powd 1 applic TOPICAL BID PRN 04/30/24 04/30/24 [Mycostatin Powder] Warfarin [Coumadin] 2.5 mg PO SUTUTH@2100 04/30/24 04/30/24 Warfarin [Coumadin] 5 mg PO MOWEFRSA@2100 04/30/24 04/30/24 Previous Rx's Medication Instructions Recorded Albuterol Inhaler [Ventolin Hfa 2 puff INHALATION RT-Q6H PRN each 12/27/23 Inhaler] Fidaxomicin [Dificid] 200 mg PO Q12HR #20 tab 05/06/24 Cholestyramine (with Sugar) 4 gm PO BID #60 packet 05/12/24 [Questran Packet] Midodrine [ProAmatine] 5 mg PO AC-TID #90 tab 05/12/24 Pantoprazole [Protonix] 40 mg PO DAILY #30 tab 05/12/24 Sodium Bicarbonate Tab 650 mg PO BID #60 tab 05/12/24 Tamsulosin [Flomax] 0.4 mg PO PC-SUPPER #30 cap 05/12/24 Allergies Allergy/AdvReac Type Severity Reaction Status Date / Time No Known Allergies Allergy Verified 10/10/24 12:22 Review of Systems ROS Statement: Those systems with pertinent positive or pertinent negative responses have been documented in the HPI. ROS Other: All systems not noted in ROS Statement are negative. Past Medical History Past Medical History: Atrial Fibrillation, Cancer, Heart Failure, CVA/TIA, GERD/Reflux, Hyperlipidemia, Hypertension, Prostate Disorder Additional Past Medical History / Comment(s): tia-2004, See Dr Aguirre H&P, arthritis, uses walker or cane, enlarged prostate, prostate CA 2015(radiation), hx shingles some edema to left ankle using lasix. dry skin on arms, numbness in last 2 fingers to left hand, kidney stone. History of Any Multi-Drug Resistant Organisms: C-DIFF, CRE Date of last positivie culture/infection: 01/11/24, February 2024 for Cdiff MDRO Source:: Urine-CRE, Stool Past Surgical History: Cholecystectomy, Hernia Repair, Orthopedic Surgery, Pacemaker Additional Past Surgical History / Comment(s): cervical fusion, lithrotripsy, Past Anesthesia/Blood Transfusion Reactions: No Reported Reaction Additional Past Anesthesia/Blood Transfusion Reaction / Comment(s): Pt has never recieved blood. Type of Cardiac Device: Permanent Pacemaker Device Placement Date:: 2013 Past Psychological History: No Psychological Hx Reported Smoking Status: Former smoker Past Alcohol Use History: None Reported Past Drug Use History: None Reported - Past Family History Father Family Medical History: Diabetes Mellitus Mother Family Medical History: Osteoarthritis (OA) Additional Family Medical History / Comment(s): arthritis General Exam General appearance: alert, in no apparent distress Head exam: Present: atraumatic, normocephalic, normal inspection Eye exam: Present: normal appearance, PERRL, EOMI. Absent: scleral icterus, conjunctival injection, periorbital swelling ENT exam: Present: normal exam, mucous membranes moist Neck exam: Present: normal inspection. Absent: tenderness, meningismus, lymphadenopathy Respiratory exam: Present: normal lung sounds bilaterally. Absent: respiratory distress, wheezes, rales, rhonchi, stridor Cardiovascular Exam: Present: regular rate, normal rhythm, normal heart sounds. Absent: systolic murmur, diastolic murmur, rubs, gallop, clicks GI/Abdominal exam: Present: soft, normal bowel sounds. Absent: distended, tenderness, guarding, rebound, rigid Extremities exam: Present: normal inspection, full ROM, normal capillary refill. Absent: tenderness, pedal edema, joint swelling, calf tenderness Back exam: Present: normal inspection Neurological exam: Present: alert, oriented X3, CN II-XII intact Psychiatric exam: Present: normal affect, normal mood Skin exam: Present: warm, dry, intact, normal color. Absent: rash Course Vital Signs 04/30/24 04/30/24 04/30/24 09:54 10:06 10:42 Temperature 101.7 F H Pulse Rate 68 63 60 Respiratory 20 20 30 H Rate Blood Pressure 89/48 86/45 84/73 O2 Sat by Pulse 94 L 93 L 96 Oximetry 04/30/24 04/30/24 04/30/24 11:10 11:45 12:00 Temperature Pulse Rate 69 Respiratory 24 Rate Blood Pressure 103/68 90/45 75/34 O2 Sat by Pulse 96 Oximetry 04/30/24 04/30/24 04/30/24 12:02 12:32 12:46 Temperature 100.8 F H Pulse Rate 60 60 60 Respiratory 22 20 22 Rate Blood Pressure 72/33 93/44 84/36 O2 Sat by Pulse 92 L 93 L 94 L Oximetry 04/30/24 04/30/24 04/30/24 13:02 13:40 14:09 Temperature 99.2 F Pulse Rate 59 L 62 59 L Respiratory 20 20 20 Rate Blood Pressure 77/41 75/36 94/45 O2 Sat by Pulse 94 L 94 L 96 Oximetry 04/30/24 04/30/24 04/30/24 14:25 15:00 15:45 Temperature Pulse Rate 59 L 60 60 Respiratory 18 20 20 Rate Blood Pressure 91/44 98/46 86/43 O2 Sat by Pulse 96 95 Oximetry 04/30/24 04/30/24 04/30/24 16:05 16:44 17:07 Temperature 98.8 F Pulse Rate 60 60 60 Respiratory 18 18 18 Rate Blood Pressure 90/42 102/49 93/48 O2 Sat by Pulse 95 95 95 Oximetry 04/30/24 17:20 Temperature Pulse Rate 60 Respiratory 18 Rate Blood Pressure 86/48 O2 Sat by Pulse 95 Oximetry Procedures - [place] Protocol (Time Out) Nurse: Celia Daugherty - Central Line Placement Right IJ Consent Obtained: verbal consent, written consent Patient Placed on Monitor/Pulse Ox: Yes MD Prep: mask, gown, gloves Central Line Prep: Povidone-Iodine 1% Local Anesthesia Used: Lidocaine 1% Amount of Anesthesia Used (mls): 10 Ultrasound Used for Placement: Yes Central Line Lumen Inserted: triple Bloods Obtained for Lab: No Central Line Position: good blood return, all ports aspirated, flushed, capped, sutured in place with nylon Dressing Applied: Tegaderm Post Procedure X-Ray: tip of catheter in good position Patient Tolerated Procedure: well, no complications - Sepsis Sepsis Focused Exam #1 Time Sepsis Criteria Met: 11:10 Sepsis Focused Exam Date: 04/30/24 Sepsis Focused Exam Time: 16:00 Sepsis Focused Exam Complete: Yes Vital Signs & RN Notes Reviewed: Yes Capillary Refill: < 2 Seconds: Fingers, Toes Peripheral Pulses: Weak: Radial (R), Radial (L), Posterior Tibialis (R), Posterior Tibialis (L) Skin Color: Normal for Patient Respiratory Exam: normal lung sounds Cardiovascular Exam: regular rate Medical Decision Making - Medical Decision Making Was pt. sent in by a medical professional or institution (Dr. PA, GRAIN RECEIVER, urgent care, hospital, or alf...) When possible be specific @ -No Did you speak to anyone other than the patient for history (EMS, parent, family, police, friend...)? What history was obtained from this source @ -Spoke with the EMS and daughter are Did you review nursing and triage notes (agree or disagree)? Why? @ -I reviewed and agree with nursing and triage notes Were old charts reviewed (outside hosp., previous admission, EMS record, old EKG, old radiological studies, urgent care reports/EKG's, alf records)? Report findings @ -I reviewed patient's previous microbiology cultures. He does have ESBL UTI history Differential Diagnosis (chest pain, altered mental status, abdominal pain women, abdominal pain men, vaginal bleeding, weakness, fever, dyspnea, syncope, headache, dizziness, GI bleed, back pain, seizure, CVA, palpatations, mental health, musculoskeletal)? @ -Differential Fever: Pneumonia, viral URI, endocarditis, myocarditis, pericarditis, otitis, sinusitis, peritonsillar Abscess, retropharyngeal Abscess, epiglottitis, peritonitis, appendicitis, Mayi cystitis, diverticulitis, hepatitis, colitis, UTI, PID, TOA, pyelonephritis, prostatitis, epididymitis, meningitis, encephalitis, pulmonary embolism, CVA, thyroid storm, pancreatitis, adrenal crisis, cavernous sinus thrombosis, this is not meant to be an all-inclusive list. EKG interpreted by me (3pts min.). @ -Yes and demonstrates an electronic ventricular pacemaker with a rate of 60. QRS 190. QTc of 499. Pacemaker captures appropriately X-rays interpreted by me (1pt min.). @ -Yes and demonstrates no acute process CT interpreted by me (1pt min.). @ -None done U/S interpreted by me (1pt. min.). @ -None done What testing was considered but not performed or refused? (CT, X-rays, U/S, labs)? Why? @ -None What meds were considered but not given or refused? Why? @ -None Did you discuss the management of the patient with other professionals (professionals i.e. , PA, GRAIN RECEIVER, lab, RT, psych nurse, clinical social work therapist, wellness educator, t eacher, property utilization officer, field case manager)? Give summary @ -Spoke with Dr. Peraza for ICU management. Also spoke with [facility] for admission Was smoking cessation discussed for >3mins.? @ -No Was critical care preformed (if so, how long)? @ -Yes, 35 mins for hemodynamic instability due to UTI and C. difficile Were there social determinants of health that impacted care today? How? (Homelessness, low income, unemployed, alcoholism, drug addiction, transportation, low edu. Level, literacy, decrease access to med. care, assisted, rehab)? @ -No Was there de-escalation of care discussed even if they declined (Discuss DNR or withdrawal of care, Hospice)? DNR status @ -Yes and patient wishes to remain a full code What co-morbidities impacted this encounter? (DM, HTN, Smoking, COPD, CAD, Cancer, CVA, ARF, Chemo, Hep., AIDS, mental health diagnosis, sleep apnea, morbid obesity)? @ -Chronic UTIs, indwelling Aguilar Was patient admitted / discharged? Hospital course, mention meds given and route, prescriptions, significant lab abnormalities, going to OR and other pertinent info. @ -Upon arrival patient seen and evaluated in room 2. Thorough history and physical exam was performed. IV access was established. Laboratory studies are conducted. Chest x-ray was performed. Patient does have a UTI. He is started on antibiotics. I am awaiting a C. difficile culture. Patient does have low blood pressures and therefore I did discuss central line placement for which the patient and his daughter were agreeable. Line was placed. He is placed on vasopressors. Spoke with [facility] for admission. Did get permission from Dr. Peraza to place the patient in the ICU Undiagnosed new problem with uncertain prognosis? @ -No Drug Therapy requiring intensive monitoring for toxicity (Heparin, Nitro, Insulin, Cardizem)? @ -No Were any procedures done? @ -Central line placement Diagnosis/symptom? @ -Acute pyrexia, acute UTIMDRO, hypotension due to septic shock Acute, or Chronic, or Acute on Chronic? @ -Acute Uncomplicated (without systemic symptoms) or Complicated (systemic symptoms)? @ -Complicated Side effects of treatment? @ -No Exacerbation, Progression, or Severe Exacerbation? @ -No Poses a threat to life or bodily function? How? (Chest pain, [place], [place], pneumonia, PE, COPD, DKA, ARF, appy, cholecystitis, CVA, Diverticulitis, Homicidal, Suicidal, threat to staff... and all critical care pts) @ -Yes as patient is hypotensive - Lab Data Result diagrams: 05/04/24 04:41 05/04/24 04:41 Lab Results 04/30/24 04/30/24 04/30/24 Range/Units 10:28 10:28 10:28 WBC 30.5 H (3.8-10.6) k/uL RBC 5.17 (4.30-5.90) m/uL Hgb 14.0 (13.0-17.5) gm/dL Hct 44.4 (39.0-53.0) % MCV 85.8 (80.0-100.0) fL MCH 27.1 (25.0-35.0) pg MCHC 31.5 (31.0-37.0) g/dL RDW 15.2 (11.5-15.5) % Plt Count 290 (150-450) k/uL MPV 7.1 Neutrophils % 92 % Lymphocytes % 1 % Monocytes % 5 % Eosinophils % 1 % Basophils % 0 % Neutrophils # 28.2 H (1.3-7.7) k/uL Lymphocytes # 0.4 L (1.0-4.8) k/uL Monocytes # 1.5 H (0-1.0) k/uL Eosinophils # 0.2 (0-0.7) k/uL Basophils # 0.1 (0-0.2) k/uL Manual Slide Review Performed Toxic Granulation Present PT 19.9 H (10.0-12.5) sec INR 2.0 H (<1.2) APTT 32.0 H (22.0-30.0) sec Sodium 139 (137-145) mmol/L Potassium 4.6 (3.5-5.1) mmol/L Chloride 108 H (98-107) mmol/L Carbon Dioxide 22 (22-30) mmol/L Anion Gap 9 mmol/L BUN 28 H (9-20) mg/dL Creatinine 1.86 H (0.66-1.25) mg/dL Est GFR (CKD-EPI)AfAm 38 (>60 ml/min/1.73 sqM) Est GFR (CKD-EPI)NonAf 33 (>60 ml/min/1.73 sqM) Glucose 112 H (74-99) mg/dL Lactic Ac Sepsis Rflx Plasma Lactic Acid Yasir (0.7-2.0) mmol/L Calcium 9.0 (8.4-10.2) mg/dL Total Bilirubin 1.1 (0.2-1.3) mg/dL AST 28 (17-59) U/L ALT 24 (4-49) U/L Alkaline Phosphatase 71 (38-126) U/L Troponin I (0.000-0.034) ng/mL NT-Pro-B Natriuret Pep 5690 pg/mL Total Protein 6.4 (6.3-8.2) g/dL Albumin 3.6 (3.5-5.0) g/dL Urine Color Urine Appearance (Clear) Urine pH (5.0-8.0) Ur Specific [place] (1.001-1.035) Urine Protein (Negative) Urine Glucose (UA) (Negative) Urine Ketones (Negative) Urine Blood (Negative) Urine Nitrite (Negative) Urine Bilirubin (Negative) Urine Urobilinogen (<2.0) mg/dL Ur Leukocyte Esterase (Negative) Urine RBC (0-5) /hpf Urine WBC (0-5) /hpf Urine WBC Clumps (None) /hpf Ur Squamous Epith Cells (0-4) /hpf Urine Bacteria (None) /hpf Influenza Type A (PCR) (Not Detectd) Influenza Type B (PCR) (Not Detectd) RSV (PCR) (Not Detectd) SARS-CoV-2 (PCR) (Not Detectd) 04/30/24 04/30/24 04/30/24 Range/Units 10:28 10:28 10:28 WBC (3.8-10.6) k/uL RBC (4.30-5.90) m/uL Hgb (13.0-17.5) gm/dL Hct (39.0-53.0) % MCV (80.0-100.0) fL MCH (25.0-35.0) pg MCHC (31.0-37.0) g/dL RDW (11.5-15.5) % Plt Count (150-450) k/uL MPV Neutrophils % % Lymphocytes % % Monocytes % % Eosinophils % % Basophils % % Neutrophils # (1.3-7.7) k/uL Lymphocytes # (1.0-4.8) k/uL Monocytes # (0-1.0) k/uL Eosinophils # (0-0.7) k/uL Basophils # (0-0.2) k/uL Manual Slide Review Toxic Granulation PT (10.0-12.5) sec INR (<1.2) APTT (22.0-30.0) sec Sodium (137-145) mmol/L Potassium (3.5-5.1) mmol/L Chloride (98-107) mmol/L Carbon Dioxide (22-30) mmol/L Anion Gap mmol/L BUN (9-20) mg/dL Creatinine (0.66-1.25) mg/dL Est GFR (CKD-EPI)AfAm (>60 ml/min/1.73 sqM) Est GFR (CKD-EPI)NonAf (>60 ml/min/1.73 sqM) Glucose (74-99) mg/dL Lactic Ac Sepsis Rflx Plasma Lactic Acid Yasir 2.3 H* (0.7-2.0) mmol/L Calcium (8.4-10.2) mg/dL Total Bilirubin (0.2-1.3) mg/dL AST (17-59) U/L ALT (4-49) U/L Alkaline Phosphatase (38-126) U/L Troponin I 0.038 H* (0.000-0.034) ng/mL NT-Pro-B Natriuret Pep pg/mL Total Protein (6.3-8.2) g/dL Albumin (3.5-5.0) g/dL Urine Color Urine Appearance (Clear) Urine pH (5.0-8.0) Ur Specific [place] (1.001-1.035) Urine Protein (Negative) Urine Glucose (UA) (Negative) Urine Ketones (Negative) Urine Blood (Negative) Urine Nitrite (Negative) Urine Bilirubin (Negative) Urine Urobilinogen (<2.0) mg/dL Ur Leukocyte Esterase (Negative) Urine RBC (0-5) /hpf Urine WBC (0-5) /hpf Urine WBC Clumps (None) /hpf Ur Squamous Epith Cells (0-4) /hpf Urine Bacteria (None) /hpf Influenza Type A (PCR) Not Detected (Not Detectd) Influenza Type B (PCR) Not Detected (Not Detectd) RSV (PCR) Not Detected (Not Detectd) SARS-CoV-2 (PCR) Not Detected (Not Detectd) 04/30/24 04/30/24 Range/Units 11:10 11:18 WBC (3.8-10.6) k/uL RBC (4.30-5.90) m/uL Hgb (13.0-17.5) gm/dL Hct (39.0-53.0) % MCV (80.0-100.0) fL MCH (25.0-35.0) pg MCHC (31.0-37.0) g/dL RDW (11.5-15.5) % Plt Count (150-450) k/uL MPV Neutrophils % % Lymphocytes % % Monocytes % % Eosinophils % % Basophils % % Neutrophils # (1.3-7.7) k/uL Lymphocytes # (1.0-4.8) k/uL Monocytes # (0-1.0) k/uL Eosinophils # (0-0.7) k/uL Basophils # (0-0.2) k/uL Manual Slide Review Toxic Granulation PT (10.0-12.5) sec INR (<1.2) APTT (22.0-30.0) sec Sodium (137-145) mmol/L Potassium (3.5-5.1) mmol/L Chloride (98-107) mmol/L Carbon Dioxide (22-30) mmol/L Anion Gap mmol/L BUN (9-20) mg/dL Creatinine (0.66-1.25) mg/dL Est GFR (CKD-EPI)AfAm (>60 ml/min/1.73 sqM) Est GFR (CKD-EPI)NonAf (>60 ml/min/1.73 sqM) Glucose (74-99) mg/dL Lactic Ac Sepsis Rflx Y Plasma Lactic Acid Yasir (0.7-2.0) mmol/L Calcium (8.4-10.2) mg/dL Total Bilirubin (0.2-1.3) mg/dL AST (17-59) U/L ALT (4-49) U/L Alkaline Phosphatase (38-126) U/L Troponin I (0.000-0.034) ng/mL NT-Pro-B Natriuret Pep pg/mL Total Protein (6.3-8.2) g/dL Albumin (3.5-5.0) g/dL Urine Color Yellow Urine Appearance Turbid (Clear) Urine pH 6.0 (5.0-8.0) Ur Specific [place] 1.017 (1.001-1.035) Urine Protein 1+ H (Negative) Urine Glucose (UA) Negative (Negative) Urine Ketones Negative (Negative) Urine Blood Moderate H (Negative) Urine Nitrite Positive (Negative) Urine Bilirubin Negative (Negative) Urine Urobilinogen <2.0 (<2.0) mg/dL Ur Leukocyte Esterase Large H (Negative) Urine RBC 28 H (0-5) /hpf Urine WBC >182 H (0-5) /hpf Urine WBC Clumps Many H (None) /hpf Ur Squamous Epith Cells 4 (0-4) /hpf Urine Bacteria Many H (None) /hpf Influenza Type A (PCR) (Not Detectd) Influenza Type B (PCR) (Not Detectd) RSV (PCR) (Not Detectd) SARS-CoV-2 (PCR) (Not Detectd) Disposition Clinical Impression: Sepsis, UTI (urinary tract infection), Leukocytosis, Generalized weakness Disposition: ADMITTED IP TO THIS HOSP Condition: Serious Is patient prescribed a controlled substance at d/c from ED?: No Time of Disposition: 13:48 Decision to Admit Reason: Admit from EC Decision Date: 04/30/24 Decision Time: 13:48
[2024-04-30] MEDS ORDERED: NALOXONE 0.4 MG/ML 1 ML VIAL IV PRN (13:48)
[2024-04-30] MEDS ORDERED: Potassium Replacement Protocol 1 EACH MISC MISCELLANE PRN (13:48)
[2024-04-30] MEDS ORDERED: Magnesium Replacement Protocol 1 EACH MISC MISCELLANE PRN (13:48)
[2024-04-30] MEDS ORDERED: CHOLESTYRAMINE (WITH SUGAR) 4 GM PACKET PO PRN (14:48)
--- NOTE | 2024-04-30 14:51 | P.CNPUL ---
History of Present Illness Consult date: 04/30/24 Requesting physician: Celina Munoz Reason for consult: other Chief complaint: Urosepsis, hypotension. History of present illness: Pulmonary consult dated April 30, 2024. 83-year-old male who is seen in the emergency department, room 2. I was called by the ER physician, as the patient apparently presented with weakness, was thought to have urosepsis, and will need an ICU bed, because the patient did not respond to fluid resuscitation, and would need a central line, and norepinephrine. In the emergency department, the patient was laying flat in bed. His blood pressure was 91/44. His heart rate was 60. His respiratory rate was 24. The patient resides at home. He apparently has been weak for a couple of days. Labs include a white count 30.5, hemoglobin 14, hematocrit 44.4, and a platelet count of 290,000. PT was 19.9. INR was 2. Sodium 139, potassium 4.6, chlorides 108, CO2 22, BUN 28, and creatinine 1.86. Lactic acid was 2.3. Troponin was 0.038. N-terminal proBNP was 5690. The urine had 1+ protein, moderate blood, large positive leukocyte esterase, 28 RBCs, greater than 182 WBCs, and many white blood cell clumps. In addition, the patient had many bacteria. He tested negative for influenza, RSV, and coronavirus. Chest x-ray showed evidence of cardiomegaly, possible moderate-sized pericardial effusion. Review of Systems Constitutional weakness. HEENT negative. Cardiovascular negative. Pulmonary negative. GI negative. negative. Rheumatologic negative. Immunologic negative. Endocrinologic negative. Dermatologic negative. Past Medical History Past Medical History: Atrial Fibrillation, Cancer, Heart Failure, CVA/TIA, GERD/Reflux, Hyperlipidemia, Hypertension, Prostate Disorder Additional Past Medical History / Comment(s): 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 dry skin on arms, numbness in last 2 fingers to left hand, kidney stone. History of Any Multi-Drug Resistant Organisms: C-DIFF, CRE Date of last positivie culture/infection: 01/11/24, February 2024 for Cdiff MDRO Source:: Urine-CRE, Stool Past Surgical History: Cholecystectomy, Hernia Repair, Orthopedic Surgery, Pacemaker Additional Past Surgical History / Comment(s): cervical fusion, lithrotripsy, Past Anesthesia/Blood Transfusion Reactions: No Reported Reaction Additional Past Anesthesia/Blood Transfusion Reaction / Comment(s): Pt has never recieved blood. Type of Cardiac Device: Permanent Pacemaker Device Placement Date:: 2013 Past Psychological History: No Psychological Hx Reported Smoking Status: Former smoker Past Alcohol Use History: None Reported Past Drug Use History: None Reported - Past Family History Father Family Medical History: Diabetes Mellitus Mother Family Medical History: Osteoarthritis (OA) Additional Family Medical History / Comment(s): arthritis Medications and Allergies Home Medications Medication Instructions Recorded Confirmed Type Acetaminophen [Tylenol] 1,000 mg PO Q6H PRN 05/30/21 04/30/24 History atenoloL 25 mg PO BID 12/15/23 04/30/24 History Albuterol Inhaler [Ventolin Hfa 2 puff INHALATION RT-Q6H PRN each 12/27/2304/21 Rx Inhaler] Ramelteon 8 mg PO HS 01/10/24 04/30/24 History Furosemide [Lasix] 40 mg PO DAILY 03/18/24 04/30/24 History Potassium Chloride ER [K-Dur 10] 10 meq PO DAILY 03/18/24 04/30/24 History Cholestyramine (with Sugar) 4 gm PO BID PRN 04/30/24 04/30/24 History [Questran Packet] Nystatin 100,000 Unit/gm Powd 1 applic TOPICAL BID PRN 04/30/24 04/30/24 History [Mycostatin Powder] Warfarin [Coumadin] 2.5 mg PO SUTUTH@209904/30/24 04/30/24 History Warfarin [Coumadin] 5 mg PO MOWEFRSA@209904/30/24 04/30/24 History Allergies Allergy/AdvReac Type Severity Reaction Status Date / Time No Known Allergies Allergy Verified 04/30/24 12:22 Physical Exam Osteopathic Statement: *. No significant issues noted on an osteopathic structural exam other than those noted in the History and Physical/Consult. Vitals: Vital Signs Temp Pulse Resp BP Pulse Ox 04/30/24 14:25 59 L 18 91/44 04/30/24 14:09 59 L 20 94/45 96 04/30/24 13:40 99.2 F 62 20 75/36 94 L 04/30/24 13:02 59 L 20 77/41 94 L 04/30/24 12:46 60 22 84/36 94 L 04/30/24 12:32 60 20 93/44 93 L 04/30/24 12:02 100.8 F H 60 22 72/33 92 L 04/30/24 12:00 75/34 04/30/24 11:45 90/45 04/30/24 11:10 69 24 103/68 96 04/30/24 10:42 60 30 H 84/73 96 04/30/24 10:06 63 20 86/45 93 L 04/30/24 09:54 101.7 F H 68 20 89/48 94 L Intake and Output 04/29/24 04/30/24 04/30/24 22:59 06:59 14:59 Other: Weight 129.274 kg No acute distress, oriented x 3. No respiratory distress. HEENT examination is grossly unremarkable. Mucous membranes are dry. Neck supple, full range of motion. No adenopathy or thyromegaly. Neck veins are flat. Cardiovascular semination reveals regular rhythm rate. S1-S2 normal. No S3-S4 or murmur. Heart rate 60 bpm. Pulmonary examination reveals clear breath sounds. No wheezes. No rhonchi. No crackles. Abdomen soft. Bowel sounds are heard. Extremities are intact. No cyanosis clubbing or significant edema. Skin without rash. Neurologic semination is brief but nonfocal. Results - Laboratory Findings CBC and BMP: 04/30/24 10:28 04/30/24 10:28 PT/INR, D-dimer PT 19.9 sec (10.0-12.5) H 04/30/24 10:28 INR 2.0 (<1.2) H 04/30/24 10:28 Abnormal lab findings: Abnormal Labs 04/30/24 04/30/24 04/30/24 10:28 10:28 10:28 WBC 30.5 H Neutrophils # 28.2 H Lymphocytes # 0.4 L Monocytes # 1.5 H PT 19.9 H INR 2.0 H APTT 32.0 H Chloride 108 H BUN 28 H Creatinine 1.86 H Glucose 112 H Plasma Lactic Acid Yasir Troponin I Urine Protein Urine Blood Ur Leukocyte Esterase Urine RBC Urine WBC Urine WBC Clumps Urine Bacteria 04/30/24 04/30/24 04/30/24 10:28 10:28 11:10 WBC Neutrophils # Lymphocytes # Monocytes # PT INR APTT Chloride BUN Creatinine Glucose Plasma Lactic Acid Yasir 2.3 H* Troponin I 0.038 H* Urine Protein 1+ H Urine Blood Moderate H Ur Leukocyte Esterase Large H Urine RBC 28 H Urine WBC >182 H Urine WBC Clumps Many H Urine Bacteria Many H - Diagnostic Findings Chest x-ray: image reviewed Assessment and Plan Assessment: Urinary tract infection with urosepsis, and hypotension. History of atrial fibrillation. History of CHF. History of CVA. History of hypertension. History of hyperlipidemia. Gastroesophageal reflux disease. History of prostate cancer. History of C. difficile colitis. History of kidney stones. Status post permanent pacemaker insertion. Plan: Plan dated April 30, 2024. The patient is seen in the emergency department. The patient is currently in room 2. The patient is on room air. The emergency room physician is going to insert a central line, and start the patient on norepinephrine. The patient's blood pressure was 91/44. He presented with weakness. Heart rate 60. Respiratory rate 24. Labs, x-rays, and medications are reviewed. The patient will be admitted to the intensive care unit for further monitoring and management. Time with Patient: Greater than 30
--- NOTE | 2024-04-30 15:26 | XR ---
EXAMINATION TYPE: XR chest 1V confirm line plcut DATE OF EXAM: 04/30/2024 COMPARISON: 04/30/2024 HISTORY: 83-year-old male confirm line placement TECHNIQUE: Single frontal view of the chest is obtained. FINDINGS: ACDF hardware. Right-sided CVC catheter tip at the mid SVC level. Left anterior chest wall pacemaker generator with right atrial and right ventricular leads. Heart borderline in size. There is some patchy peripheral left basilar opacity. The retrocardiac leodan on is underpenetrated and not well assessed. IMPRESSION: 1. Right-sided CVC tip at the mid SVC level. 2. Some patchy peripheral left basilar atelectasis versus infiltrate. [facility], , 04/30/2024 3:24 PM
[2024-04-30 15:28] LABS: INR 2.1 (<1.2); Prothrombin Time 21.3 sec (10.0-12.5)
[2024-04-30] MEDS: NOREPINEPHRINE 32 MG in SODIUM CHLORIDE 0.9% 218 ML IV ONE (16:12)
[2024-04-30] MEDS: HEPARIN SODIUM,PORCINE 5,000 UNIT/ML 1 ML VIAL SQ SCH (16:13)
[2024-04-30 17:48] LABS: Glucose,Whole Blood 108 mg/dL (70-110)
[2024-04-30] MEDS: PANTOPRAZOLE 40 MG/10 ML VIAL IVP SCH (18:32)
[2024-04-30] MEDS: VANCOMYCIN 125 MG CAPSULE PO SCH (18:34)
[2024-04-30] MEDS: ALBUTEROL HFA INHALER INHALATION SCH (20:15)
[2024-04-30] MEDS: TEMAZEPAM 15 MG CAP PO SCH (20:43)
--- NOTE | 2024-04-30 21:26 | HP ---
HISTORY AND PHYSICAL CHIEF COMPLAINT: Weakness. HISTORY OF PRESENT ILLNESS: This is an 83-year-old gentleman with a past medical history of multiple medical problems and recurrent UTI with sepsis, being followed by Dr. Munoz in the outpatient setting, who is complaining of fever. The patient was taken to [facility], was found to be hypotensive with UTI with sepsis. The patient had multiple organisms grown from the culture, which was mostly ESBL was sensitive to imipenem, so the meropenem was initiated and Infectious Disease evaluated. Central line is being planned. The patient will be transferred to ICU at this time. There is no history of any headache, loss of conscious, or seizures. PAST MEDICAL HISTORY: Recurrent UTI with sepsis. The rest of the history and chart is also reviewed. HOME MEDICATIONS: Reviewed include Coumadin, dose and rest of medications reviewed. ALLERGIES: None. FAMILY HISTORY: History of diabetes mellitus and arthritis. SOCIAL HISTORY: Previous history of smoking. REVIEW OF SYSTEMS: Fourteen-point review is negative except as mentioned earlier. PHYSICAL EXAMINATION: VITAL SIGNS: Pulse is 59, blood pressure 94/45, respirations 20. HEENT: Conjunctivae normal. NECK: No JVD. CARDIOVASCULAR: S1, S2. RESPIRATIONS: Breath sounds diminished at the bases. A few scattered rhonchi. ABDOMEN: Soft, minimal diffuse discomfort. No guarding. No rigidity. No mass. LEGS: No edema. No swelling. NERVOUS SYSTEM: Diffusely weak. SKIN: No ulcer, rash, bleeding. JOINTS: No active deforming arthropathy. LABORATORY DATA: WBC 13.5. Rest of the labs are noted. ASSESSMENT: 1. Acute urinary tract infection with sepsis. 2. Hypotension, possible septic shock with severe sepsis. 3. Increased WBC with a leukemoid reaction. 4. Troponin 0.038. Rule out acute myocardial infarction. 5. History of atrial fibrillation. 6. History of cerebrovascular accident, transient ischemic attack. 7. Hypertension. 8. Hyperlipidemia. RECOMMENDATIONS AND DISCUSSION: This is an 83-year-old gentleman presented with multiple complex medical issues, we will monitor the patient closely. We will initiate meropenem. Otherwise, Infectious Disease evaluation. I would also recommend cultures. Monitor in ICU. Consult Dr. Peraza for ICU management. Resume home medications once they are confirmed. Prognosis extremely guarded because of multiple complex medical issues. Discussed with the daughter at the bedside at length. Further recommendations to follow. A copy of this dictation forwarded to Dr. Munoz, who is the primary physician. MMODL / IJN: [id number] /
[2024-04-30] MEDS: ACETAMINOPHEN TAB 325 MG TAB PO PRN (22:36)
--- NOTE | 2024-04-30 22:38 | P.CONS ---
History of Present Illness - Reason for Consult Consult date: 04/30/24 UTI with severe sepsis, ESBL Requesting physician: Jacquelnie aRmirez - Chief Complaint Fever and weakness x 1 day - History of Present Illness Patient is a 83-year-old male with a past medical history significant for hypertension hyperlipidemia CVA TIA heart failure prostate cancer history of recurrent UTI as well as C. difficile colitis with recent admission to the hospital with sepsis secondary C. difficile colitis patient has been brought into the hospital concerning for weakness and apparently the patient did have a fever around 2 AM for the patient took some Tylenol patient has been complaining of lower abdominal pain mostly sharp moderate intensity without any radiation did have some nausea but no vomiting denies have any burning or frequency of urine daughter did mention that he did have incontinence of urine patient mention he did have a 2-3 bowel movements however was not very clear about the consistency of his stool I was able to confirm with the nursing staff that he did have 1 loose stool and the daughter mention it stinks, on presentation to the hospital patient did have a temperature of 101.7 degrees for night patient was nontachycardic mildly hypertensive requiring fluid bolus currently not hypoxic or need for supplemental oxygen patient did have a white count of 13.5 with a left shift BUN and creatinine has been mildly elevated liver isms are normal urine has been positive patient did received a dose of meropenem 2 g x 1 by the ER physician infectious disease was consulted for further management of antibiotic therapy. Tested negative for influenza RSV and COVID patient did have a chest x-ray mild cardiomegaly but with posterior bulging correlate for moderate-sized pericardial effusion Review of Systems Positive point and negatives has been mentioned in the HPI, complete review of systems was performed and all other systems are negative Past Medical History Past Medical History: Atrial Fibrillation, Cancer, Heart Failure, CVA/TIA, GERD/Reflux, Hyperlipidemia, Hypertension, Prostate Disorder Additional Past Medical History / Comment(s): tia-2004, See Dr Aguirre H&P, arthritis, uses walker or cane, enlarged prostate, prostate CA 2015(radiation), hx shingles some edema to left ankle using lasix. dry skin on arms, numbness in last 2 fingers to left hand, kidney stone. History of Any Multi-Drug Resistant Organisms: C-DIFF, CRE Year Discovered:: 01/11/24, February 2024 for Cdiff MDRO Source:: Urine-CRE, Stool Past Surgical History: Cholecystectomy, Hernia Repair, Orthopedic Surgery, Pacemaker Additional Past Surgical History / Comment(s): cervical fusion, lithrotripsy, Past Anesthesia/Blood Transfusion Reactions: No Reported Reaction Additional Past Anesthesia/Blood Transfusion Reaction / Comm: Pt has never recieved blood. Type of Cardiac Device: Permanent Pacemaker Device Placement Date:: 2013 Past Psychological History: No Psychological Hx Reported Smoking Status: Former smoker Past Alcohol Use History: None Reported Past Drug Use History: None Reported - Past Family History Father Family Medical History: Diabetes Mellitus Mother Family Medical History: Osteoarthritis (OA) Additional Family Medical History / Comment(s): arthritis Medications and Allergies Home Medications Medication Instructions Recorded Confirmed Type Acetaminophen [Tylenol] 1,000 mg PO Q6H PRN 05/30/21 04/30/24 History atenoloL 25 mg PO BID 12/15/23 04/30/24 History Albuterol Inhaler [Ventolin Hfa 2 puff INHALATION RT-Q6H PRN each 12/27/23 04/30/24 Rx Inhaler] Ramelteon 8 mg PO HS 01/10/24 04/30/24 History Furosemide [Lasix] 40 mg PO DAILY 03/18/24 04/30/24 History Potassium Chloride ER [K-Dur 10] 10 meq PO DAILY 03/18/24 04/30/24 History Cholestyramine (with Sugar) 4 gm PO BID PRN 04/30/24 04/30/24 History [Questran Packet] Nystatin 100,000 Unit/gm Powd 1 applic TOPICAL BID PRN 04/30/24 04/30/24 History [Mycostatin Powder] Warfarin [Coumadin] 2.5 mg PO SUTUTH@209904/30/24 04/30/24 History Warfarin [Coumadin] 5 mg PO MOWEFRSA@2100 04/30/24 04/30/24 History Allergies Allergy/AdvReac Type Severity Reaction Status Date / Time No Known Allergies Allergy Verified 04/30/24 12:22 Physical Exam Vitals: Vital Signs Temp Pulse Resp BP Pulse Ox 04/30/24 14:25 59 L 18 91/44 04/30/24 14:09 59 L 20 94/45 96 04/30/24 13:40 99.2 F 62 20 75/36 94 L 04/30/24 13:02 59 L 20 77/41 94 L 04/30/24 12:46 60 22 84/36 94 L 04/30/24 12:32 60 20 93/44 93 L 04/30/24 12:02 100.8 F H 60 22 72/33 92 L 04/30/24 12:00 75/34 04/30/24 11:45 90/45 04/30/24 11:10 69 24 103/68 96 04/30/24 10:42 60 30 H 84/73 96 04/30/24 10:06 63 20 86/45 93 L 04/30/24 09:54 101.7 F H 68 20 89/48 94 L Intake and Output 04/29/24 04/30/24 04/30/24 22:59 06:59 14:59 Other: Weight 129.274 kg GENERAL DESCRIPTION: Elderly male lying in bed, no distress. No tachypnea or accessory muscle of respiration use. HEENT: Shows Pallor , no scleral icterus. Oral mucous membrane is dry. No pharyngeal erythema or thrush NECK: Trachea central, no thyromegaly. LUNGS: Unlabored breathing. Decreased breath sound at the base HEART: S1, S2, regular rate and rhythm. No loud murmur ABDOMEN: Soft, mild tenderness , no guarding or rigidity EXTREMITIES: No edema of feet. SKIN: No rash, no masses palpable. NEUROLOGICAL: The patient is awake, alert, oriented x3, mood and affect normal. Results CBC & Chem 7: 04/30/24 10:28 04/30/24 10:28 Labs: Abnormal Lab Results - Last 24 Hours (Table) 04/30/24 04/30/24 04/30/24 Range/Units 10:28 10:28 10:28 WBC 30.5 H (3.8-10.6) k/uL Neutrophils # 28.2 H (1.3-7.7) k/uL Lymphocytes # 0.4 L (1.0-4.8) k/uL Monocytes # 1.5 H (0-1.0) k/uL PT 19.9 H (10.0-12.5) sec INR 2.0 H (<1.2) APTT 32.0 H (22.0-30.0) sec Chloride 108 H (98-107) mmol/L BUN 28 H (9-20) mg/dL Creatinine 1.86 H (0.66-1.25) mg/dL Glucose 112 H (74-99) mg/dL Plasma Lactic Acid Yasir (0.7-2.0) mmol/L Troponin I (0.000-0.034) ng/mL Urine Protein (Negative) Urine Blood (Negative) Ur Leukocyte Esterase (Negative) Urine RBC (0-5) /hpf Urine WBC (0-5) /hpf Urine WBC Clumps (None) /hpf Urine Bacteria (None) /hpf 04/30/24 04/30/24 04/30/24 Range/Units 10:28 10:28 11:10 WBC (3.8-10.6) k/uL Neutrophils # (1.3-7.7) k/uL Lymphocytes # (1.0-4.8) k/uL Monocytes # (0-1.0) k/uL PT (10.0-12.5) sec INR (<1.2) APTT (22.0-30.0) sec Chloride (98-107) mmol/L BUN (9-20) mg/dL Creatinine (0.66-1.25) mg/dL Glucose (74-99) mg/dL Plasma Lactic Acid Yasir 2.3 H* (0.7-2.0) mmol/L Troponin I 0.038 H* (0.000-0.034) ng/mL Urine Protein 1+ H (Negative) Urine Blood Moderate H (Negative) Ur Leukocyte Esterase Large H (Negative) Urine RBC 28 H (0-5) /hpf Urine WBC >182 H (0-5) /hpf Urine WBC Clumps Many H (None) /hpf Urine Bacteria Many H (None) /hpf Assessment and Plan (1) Sepsis Current Visit: Yes Status: Acute Code(s): A41.9 - SEPSIS, UNSPECIFIED ORGANISM SNOMED Code(s): 94580405 (2) C. difficile colitis Current Visit: No Status: Acute Code(s): A04.72 - ENTEROCOLITIS D/T CLOSTRIDIUM DIFFICILE, NOT SPCF RECUR SNOMED Code(s): 986775608 Plan: 1patient presented to hospital with fever elevated white count hypotension source is likely C. difficile colitis as the patient did have liquidy stools lower abdominal pain and significant elevated white count and recently admitted to the hospital for C. difficile colitis patient did have a positive UA however denies having any burning or frequency of urine clinically doubt urinary source for his sepsis 2-we will start the patient on vancomycin 500 mg p.o. every 6 hours and avoid antimotility agent and no need for further systemic antibiotic therapy directed towards urinary source Daughter at the bedside multiple question concern answered We will follow on clinical condition and cultures to further adjust medication if needed Thank you for this consultation we will follow the patient along with you Dictation was produced using [employer] dictation software. please excuse any grammatical, word or spelling errors. Time with Patient: Greater than 30
[2024-05-01] MEDS ORDERED: MEROPENEM 1 GM in SODIUM CHLORIDE 0.9% 100 ML IVPB SCH
[2024-05-01 06:31] LABS: ALT 20 U/L (4-49); AST 26 U/L (17-59); African American GFR (CKD) 38 (>60 ml/min/1.73 sqM); Albumin 3.2 g/dL (3.5-5.0); Alkaline Phosphatase 67 U/L (38-126); Anion Gap 10 mmol/L; Blood Urea Nitrogen 31 mg/dL (9-20); Calcium 8.5 mg/dL (8.4-10.2); Carbon Dioxide 18 mmol/L (22-30); Chloride 111 mmol/L (98-107); Glucose 103 mg/dL (74-99); Non-African American GFR(CKD) 33 (>60 ml/min/1.73 sqM); Potassium 3.3 mmol/L (3.5-5.1); Sodium 139 mmol/L (137-145); Total Bilirubin 1.1 mg/dL (0.2-1.3)
[2024-05-01 06:34] LABS: Basophils # (A) 0.1 k/uL (0-0.2); Basophils % (A) 0 %; Eosinophils # (A) 0.1 k/uL (0-0.7); Eosinophils % (A) 0 %; HCT 46.8 % (39.0-53.0); HGB 14.2 gm/dL (13.0-17.5); Hypochromasia Slight; Lymphocytes # (A) 0.9 k/uL (1.0-4.8); Lymphocytes % (A) 3 %; MCH 26.5 pg (25.0-35.0); MCHC 30.4 g/dL (31.0-37.0); MCV 87.3 fL (80.0-100.0); Mean Platelet Volume 7.6; Monocytes # (A) 2.3 k/uL (0-1.0); Monocytes % (A) 6 %; Neutrophils # (A) 32.7 k/uL (1.3-7.7); Neutrophils % (A) 90 %; Platelet Count 369 k/uL (150-450); RBC 5.36 m/uL (4.30-5.90); RDW 15.1 % (11.5-15.5); WBC 36.5 k/uL (3.8-10.6)
[2024-05-01] MEDS: POTASSIUM CHLORIDE ER 20 MEQ TAB.ER PO SCH (07:30)
[2024-05-01] MEDS: POTASSIUM CHLORIDE ER 10 MEQ TAB.ER.PRT PO SCH (08:43)
[2024-05-01] MEDS: LACTATED RINGERS 1,000 ML IV ONE (08:44)
[2024-05-01] MEDS: LACTATED RINGERS 1,000 ML IV SCH (08:44)
[2024-05-01] MEDS: ALBUTEROL HFA INHALER INHALATION SCH (08:50)
[2024-05-01 09:13] LABS: Toxic Granulation Present
--- NOTE | 2024-05-01 10:44 | P.PN ---
Subjective Progress Note Date: 05/01/24 Principal diagnosis: Sepsis. Pulmonary consult dated April 30, 2024. 83-year-old male who is seen in the emergency department, room 2. I was called by the ER physician, as the patient apparently presented with weakness, was thought to have urosepsis, and will need an ICU bed, because the patient did not respond to fluid resuscitation, and would need a central line, and nor epinephrine. In the emergency department, the patient was laying flat in bed. His blood pressure was 91/44. His heart rate was 60. His respiratory rate was 24. The patient resides at home. He apparently has been weak for a couple of days. Labs include a white count 30.5, hemoglobin 14, hematocrit 44.4, and a platelet count of 290,000. PT was 19.9. INR was 2. Sodium 139, potassium 4.6, chlorides 108, CO2 22, BUN 28, and creatinine 1.86. Lactic acid was 2.3. Troponin was 0.038. N-terminal proBNP was 5690. The urine had 1+ protein, moderate blood, large positive leukocyte esterase, 28 RBCs, greater than 182 WBCs, and many white blood cell clumps. In addition, the patient had many bacteria. He tested negative for influenza, RSV, and coronavirus. Chest x-ray showed evidence of cardiomegaly, possible moderate-sized pericardial effusion. Progress note dated May 01, 2024. This is a 83-year-old male who was seen in consultation yesterday, in the emergency department. He is seen today in room 262, intensive care unit. He continues on oxygen by nasal cannula 2 L. The patient is getting norepinephrine at 11 mcg/min. He is getting saline at 10 cc an hour. The patient tested positive for the C. difficile colitis. For that he is on p.o. vancomycin. The patient is getting meropenem as well. The patient will end up getting a bolus of lactated Ringer's, 1 L, and started on lactated Ringer's at 75 cc an hour. We believe he is a bit dry. Currently white count 36.5, hemoglobin 14.2, hematocrit 46.8, and platelet count 369,000. Sodium 139, potassium 3.3, chlorid es 111, CO2 18, BUN 31, creatinine 1.85. Albumin is 3.2. Objective - Vital Signs Vital signs: Vital Signs Temp 100.0 F H 05/01/24 08:00 Pulse 59 L 05/01/24 09:00 Resp 22 05/01/24 09:00 BP 115/55 05/01/24 09:00 Pulse Ox 97 05/01/24 09:00 FiO2 Intake & Output 04/30/24 05/01/24 05/01/24 18:59 06:59 18:59 Intake Total 12.222 022.806 4635 Output Total 150 575 125 Balance -137.778 -099.653 9934 Weight 129.274 kg 125.6 kg Intake: IV 10 120 1160 0.9 KVO 10 120 10 Lactated Ringers 1,000 ml 150 @ 75 mls/hr IV .[id number] [facility] Rx#:[id number] Lactated Ringers 1,000 ml 1000 @ 999 mls/hr IV .Q1H1M [facility] Rx#:[id number] Intake, IV Titration 2.222 62.025 Amount Norepinephrine 32 mg In 2.222 62.025 Sodium Chloride 0.9% 218 ml @ 0.03 MCG/KG/MIN 1. 818 mls/hr IV .Q24H ONE Rx#:[id number] Output: Urine 150 575 125 Other: Voiding Method Indwelling Catheter Indwelling Catheter # Bowel Movements 1 1 - Exam No acute distress, oriented x 3. No respiratory distress. Currently on 2 L. HEENT examination is grossly unremarkable. Mucous membranes are dry. Neck supple, full range of motion. No adenopathy or thyromegaly. Neck veins are flat. Cardiovascular semination reveals regular rhythm rate. S1-S2 normal. No S3-S4 or murmur. Heart rate 59 bpm. Pulmonary examination reveals clear breath sounds. No wheezes. No rhonchi. No crackles. Abdomen soft. Bowel sounds are heard. Extremities are intact. No cyanosis clubbing or significant edema. Skin without rash. Neurologic semination is brief but nonfocal. - Labs CBC & Chem 7: 05/01/24 05:38 05/01/24 05:38 Labs: Abnormal Lab Results - Last 24 Hours (Table) 04/30/24 04/30/24 04/30/24 Range/Units 10:28 10:28 10:28 WBC 30.5 H (3.8-10.6) k/uL MCHC (31.0-37.0) g/dL Neutrophils # 28.2 H (1.3-7.7) k/uL Lymphocytes # 0.4 L (1.0-4.8) k/uL Monocytes # 1.5 H (0-1.0) k/uL PT 19.9 H (10.0-12.5) sec INR 2.0 H (<1.2) APTT 32.0 H (22.0-30.0) sec Potassium (3.5-5.1) mmol/L Chloride 108 H (98-107) mmol/L Carbon Dioxide (22-30) mmol/L BUN 28 H (9-20) mg/dL Creatinine 1.86 H (0.66-1.25) mg/dL Glucose 112 H (74-99) mg/dL Plasma Lactic Acid Yasir (0.7-2.0) mmol/L Troponin I (0.000-0.034) ng/mL Total Protein (6.3-8.2) g/dL Albumin (3.5-5.0) g/dL Urine Protein (Negative) Urine Blood (Negative) Ur Leukocyte Esterase (Negative) Urine RBC (0-5) /hpf Urine WBC (0-5) /hpf Urine WBC Clumps (None) /hpf Urine Bacteria (None) /hpf C. difficile (EIA) Intrp (Negative) 04/30/24 04/30/24 04/30/24 Range/Units 10:28 10:28 11:10 WBC (3.8-10.6) k/uL MCHC (31.0-37.0) g/dL Neutrophils # (1.3-7.7) k/uL Lymphocytes # (1.0-4.8) k/uL Monocytes # (0-1.0) k/uL PT (10.0-12.5) sec INR (<1.2) APTT (22.0-30.0) sec Potassium (3.5-5.1) mmol/L Chloride (98-107) mmol/L Carbon Dioxide (22-30) mmol/L BUN (9-20) mg/dL Creatinine (0.66-1.25) mg/dL Glucose (74-99) mg/dL Plasma Lactic Acid Yasir 2.3 H* (0.7-2.0) mmol/L Troponin I 0.038 H* (0.000-0.034) ng/mL Total Protein (6.3-8.2) g/dL Albumin (3.5-5.0) g/dL Urine Protein 1+ H (Negative) Urine Blood Moderate H (Negative) Ur Leukocyte Esterase Large H (Negative) Urine RBC 28 H (0-5) /hpf Urine WBC >182 H (0-5) /hpf Urine WBC Clumps Many H (None) /hpf Urine Bacteria Many H (None) /hpf C. difficile (EIA) Intrp (Negative) 04/30/24 04/30/24 04/30/24 Range/Units 14:09 14:14 15:11 WBC (3.8-10.6) k/uL MCHC (31.0-37.0) g/dL Neutrophils # (1.3-7.7) k/uL Lymphocytes # (1.0-4.8) k/uL Monocytes # (0-1.0) k/uL PT 21.3 H (10.0-12.5) sec INR 2.1 H (<1.2) APTT (22.0-30.0) sec Potassium (3.5-5.1) mmol/L Chloride (98-107) mmol/L Carbon Dioxide (22-30) mmol/L BUN (9-20) mg/dL Creatinine (0.66-1.25) mg/dL Glucose (74-99) mg/dL Plasma Lactic Acid Yasir 2.8 H* (0.7-2.0) mmol/L Troponin I (0.000-0.034) ng/mL Total Protein (6.3-8.2) g/dL Albumin (3.5-5.0) g/dL Urine Protein (Negative) Urine Blood (Negative) Ur Leukocyte Esterase (Negative) Urine RBC (0-5) /hpf Urine WBC (0-5) /hpf Urine WBC Clumps (None) /hpf Urine Bacteria (None) /hpf C. difficile (EIA) Intrp Positive A (Negative) 05/01/24 05/01/24 Range/Units 05:38 05:38 WBC 36.5 H (3.8-10.6) k/uL MCHC 30.4 L (31.0-37.0) g/dL Neutrophils # 32.7 H (1.3-7.7) k/uL Lymphocytes # 0.9 L (1.0-4.8) k/uL Monocytes # 2.3 H (0-1.0) k/uL PT (10.0-12.5) sec INR (<1.2) APTT (22.0-30.0) sec Potassium 3.3 L (3.5-5.1) mmol/L Chloride 111 H (98-107) mmol/L Carbon Dioxide 18 L (22-30) mmol/L BUN 31 H (9-20) mg/dL Creatinine 1.85 H (0.66-1.25) mg/dL Glucose 103 H (74-99) mg/dL Plasma Lactic Acid Yasir (0.7-2.0) mmol/L Troponin I (0.000-0.034) ng/mL Total Protein 6.0 L (6.3-8.2) g/dL Albumin 3.2 L (3.5-5.0) g/dL Urine Protein (Negative) Urine Blood (Negative) Ur Leukocyte Esterase (Negative) Urine RBC (0-5) /hpf Urine WBC (0-5) /hpf Urine WBC Clumps (None) /hpf Urine Bacteria (None) /hpf C. difficile (EIA) Intrp (Negative) Assessment and Plan Assessment: Urinary tract infection with urosepsis, and hypotension. History of atrial fibrillation. History of CHF. History of CVA. History of hypertension. History of hyperlipidemia. Gastroesophageal reflux disease. History of prostate cancer. History of C. difficile colitis. History of kidney stones. Status post permanent pacemaker insertion. Plan: Plan dated April 30, 2024. The patient is seen in the emergency department. The patient is currently in room 2. The patient is on room air. The emergency room physician is going to insert a central line, and start the patient on norepinephrine. The patient's blood pressure was 91/44. He presented with weakness. Heart rate 60. Respiratory rate 24. Labs, x-rays, and medications are reviewed. The patient will be admitted to the intensive care unit for further monitoring and management. Plan dated May 01, 2024. The patient continues on norepinephrine for blood pressure support of 11 mcg/min. The patient is getting oxygen by nasal cannula 2 L. He is on p.o. vancomycin for C. difficile colitis, and he is also getting meropenem. We are g gentry to give him a liter of lactated Ringer's, and continue the lactated Ringer's at 75 cc an hour. Labs, x-rays, and all medications are reviewed. The patient is overall prognosis remains guarded. Time with Patient: Greater than 30
[2024-05-01] MEDS: POTASSIUM CHLORIDE 10 MEQ in WATER FOR INJECTION 1 100ML.BAG IVPB SCH (13:25)
--- NOTE | 2024-05-01 14:50 | P.PN ---
Subjective Progress Note Date: 05/01/24 Principal diagnosis: Reason for follow-up is sepsis secondary to severe C. difficile colitis Patient is a 83-year-old male with a past medical history significant for hypertension hyperlipidemia CVA TIA heart failure prostate cancer history of recurrent UTI as well as C. difficile colitis with recent admission to the hospital with sepsis secondary C. difficile colitis patient has been brought into the hospital concerning for weakness and apparently the patient did have a fever around 2 AM with initial concern for possible UTI however the patient has significant diarrhea and no urinary symptoms and stool for significantly positive. On today's evaluation that is 05/01/2024, Patient did have improvement with fluid creatinine with a temperature of 100 F this morning patient is requiring less pressor support than yesterday as reported by nursing staff and is cu rrently undergoing with he did have significant diarrhea requiring placement of fecal management system, and did have 150 mL output this morning patient white count is up to 36.5, creatinine is 1.85 Objective - Vital Signs Vital signs: Vital Signs Temp 98.7 F 05/01/24 12:00 Pulse 60 05/01/24 14:15 Resp 16 05/01/24 14:15 BP 106/90 05/01/24 14:15 Pulse Ox 96 05/01/24 14:15 FiO2 Intake & Output 04/30/24 05/01/24 05/01/24 18:59 06:59 18:59 Intake Total 12.222 042.522 5530 Output Total 150 575 450 Balance -137.778 -180.955 6683 Weight 129.274 kg 125.6 kg Intake: IV 10 120 1605 0.9 KVO 10 120 80 Lactated Ringers 1,000 ml 525 @ 75 mls/hr IV .[id number] [facility] Rx#:[id number] Lactated Ringers 1,000 ml 1000 @ 999 mls/hr IV .Q1H1M ONE Rx#:[id number] Intake, IV Titration 2.222 62.025 Amount Norepinephrine 32 mg In 2.222 62.025 Sodium Chloride 0.9% 218 ml @ 0.03 MCG/KG/MIN 1. 818 mls/hr IV .Q24H ONE Rx#:[id number] Output: Urine 150 575 300 Stool 150 Other: Voiding Method Indwelling Catheter Indwelling Catheter # Bowel Movements 1 1 - Exam GENERAL DESCRIPTION: An elderly male lying in bed in no distress RESPIRATORY SYSTEM: Unlabored breathing , decreased breath sounds at bases HEART: S1 S2 regular rate and rhythm , ABDOMEN: Soft , no tenderness EXTREMITIES: No edema feet - Labs CBC & Chem 7: 05/01/24 05:38 05/01/24 11:30 Labs: Abnormal Lab Results - Last 24 Hours (Table) 04/30/24 04/30/24 04/30/24 Range/Units 14:09 14:14 15:11 WBC (3.8-10.6) k/uL MCHC (31.0-37.0) g/dL Neutrophils # (1.3-7.7) k/uL Lymphocytes # (1.0-4.8) k/uL Monocytes # (0-1.0) k/uL PT 21.3 H (10.0-12.5) sec INR 2.1 H (<1.2) Potassium (3.5-5.1) mmol/L Chloride (98-107) mmol/L Carbon Dioxide (22-30) mmol/L BUN (9-20) mg/dL Creatinine (0.66-1.25) mg/dL Glucose (74-99) mg/dL Plasma Lactic Acid Yasir 2.8 H* (0.7-2.0) mmol/L Total Protein (6.3-8.2) g/dL Albumin (3.5-5.0) g/dL C. difficile (EIA) Intrp Positive A (Negative) 05/01/24 05/01/24 Range/Units 05:38 05:38 WBC 36.5 H (3.8-10.6) k/uL MCHC 30.4 L (31.0-37.0) g/dL Neutrophils # 32.7 H (1.3-7.7) k/uL Lymphocytes # 0.9 L (1.0-4.8) k/uL Monocytes # 2.3 H (0-1.0) k/uL PT (10.0-12.5) sec INR (<1.2) Potassium 3.3 L (3.5-5.1) mmol/L Chloride 111 H (98-107) mmol/L Carbon Dioxide 18 L (22-30) mmol/L BUN 31 H (9-20) mg/dL Creatinine 1.85 H (0.66-1.25) mg/dL Glucose 103 H (74-99) mg/dL Plasma Lactic Acid Yasir (0.7-2.0) mmol/L Total Protein 6.0 L (6.3-8.2) g/dL Albumin 3.2 L (3.5-5.0) g/dL C. difficile (EIA) Intrp (Negative) Assessment and Plan (1) Sepsis Current Visit: Yes Status: Acute Code(s): A41.9 - SEPSIS, UNSPECIFIED ORGANISM SNOMED Code(s): 81336234 (2) C. difficile colitis Current Visit: No Status: Acute Code(s): A04.72 - ENTEROCOLITIS D/T CLOSTRIDIUM DIFFICILE, NOT SPCF RECUR SNOMED Code(s): 377654427 Plan: 1patient presented to hospital with fever elevated white count hypotension source is likely C. difficile colitis as the patient did have liquidy stools lower abdominal pain and significant elevated white count and recently admitted to the hospital for C. difficile colitis patient did have a positive UA however denies having any burning or frequency of urine clinically doubt urinary source for his sepsis 2-patient to continue with vancomycin 500 mg p.o. every 6 hours we will add IV Flagyl and continue with the Questran for symptomatic relief prognosis remains to be guarded Dictation was produced using [employer] dictation software. please excuse any grammatical, word or spelling errors. Time with Patient: Less than 30
[2024-05-01] MEDS: SODIUM BICARBONATE TAB 650 MG TAB PO SCH (15:53)
[2024-05-01] MEDS: metroNIDAZOLE-NS PMX 500 MG in SALINE 1 100ML.BAG IVPB SCH (15:53)
[2024-05-01] MEDS: NOREPINEPHRINE 8 MG in SODIUM CHLORIDE 0.9% 250 ML IV SCH (16:09)
[2024-05-01] MEDS: MAGNESIUM SULFATE-D5W PMX 1 GM in DEXTROSE/WATER 1 100ML.BAG IVPB ONE (16:55)
--- NOTE | 2024-05-01 18:03 | P.PN ---
Subjective Progress Note Date: 05/01/24 This is a pleasant 83-year-old male who resides at home has 11/02 home care that was started by his primary care provider Dr. Munoz. Patient presents with leukocytosis with sepsis initially with concerns of urosepsis with urinary tract infection. Patient was treated for C. difficile colitis on previous admission and sent home on oral antibiotics. Patient is positive for C. difficile still and continues with multiple loose stools with 5 overnight and 2 thus far today. Patient does have a fecal management system and is maintained on oral Vanco at 500 every 6 with ID following. Patient continues on pressor support and weaning slowly as tolerated. Will follow-up on repeat labs and monitor kidney functions closely. Review of systems: Constitutional: No reports of fatigue, fever, or chills Cardiovascular: No reports of chest pain or palpitations Respiratory: No reports of shortness of breath or cough GI: No reports of nausea, no reports of vomiting, reports of multiple loose stools and discomfort with the rectal tube : No reports of dysuria or retention Neurovascular: reports of generalized weakness All medications have been reviewed PHYSICAL EXAMINATION: GENERAL: The patient is alert and oriented x4, Well developed, elderly appearing, ill-appearing, obese HEENT: Pupils are round and equally reacting to light. EOMI. no scleral icterus. No conjunctival pallor. Normocephalic, atraumatic. No pharyngeal erythema. No thyromegaly. CARDIOVASCULAR: S1 and S2 muffled PULMONARY: diminished breath sounds bilaterally with no wheezing or rhonchi noted. ABDOMEN: soft. Nontender on exam. obese. non-distended, normoactive bowel sounds. No palpable organomegaly. MUSCULOSKELETAL: No joint swelling or deformity. EXTREMITIES: No cyanosis, clubbing, or pedal edema. NEUROLOGICAL: Gross neurological examination did not reveal any focal deficits. Diffuse weakness SKIN: No rashes. Assessment: Possible acute urinary tract infection with sepsis, present on admission, per ID source less likely Sepsis, present on admission, likely secondary to C. difficile colitis with failure of outpatient treatment. Hypotension, possible septic shock with severe sepsis,. Patient remains in the ICU on pressor support requiring pressor support Leukocytosis secondary to above Troponin 0.038, ruled out myocardial infarction History of atrial fibrillation, currently rate controlled History of CVA History of hypertension Hyperlipidemia history Obesity with a BMI of 37.6 GI prophylaxis DVT prophylaxis Full code Plan: Recommend to continue with current medications and management with multiple consultations and per nursing is weaning as tolerated. Patient continues with multiple loose stools and C. difficile was positive and is continued on vancomycin with infectious disease following. Patient does have a fecal management system and Questran has been added Follow-up on repeat labs and replace electrolytes per protocol. Monitor kidney functions closely Continue indwelling Aguilar catheter PT/OT therapy evaluation. Case management consulted. Will discuss further regarding discharge planning with family along with case management as patient on previous admission had issues using up his extended care days and went home on discharge with 11/02 home care. Due to multiple complex medical issues, overall prognosis is guarded The impression and plan of care has been dictated by Eve Alexander, nurse practitioner as directed. Dr. Nikos MD I have performed a history and examination and MDM of this patient, discussed the same with the dictator, and agree with the dictator's assessment and plan as written ,documented as a scribe. Based on total visit time, I have performed more than 50% of the visit. Any additional findings or plans will be noted. Objective - Vital Signs Vital signs: Vital Signs Temp 100.0 F H 05/01/24 08:00 Pulse 62 05/01/24 11:15 Resp 17 05/01/24 11:15 BP 94/49 05/01/24 11:15 Pulse Ox 96 05/01/24 11:00 FiO2 Intake & Output 04/30/24 05/01/24 05/01/24 18:59 06:59 18:59 Intake Total 12.222 255.464 9071 Output Total 150 575 210 Balance -137.778 -911.976 2972 Weight 129.274 kg 125.6 kg Intake: IV 10 120 1310 0.9 KVO 10 120 10 Lactated Ringers 1,000 ml 300 @ 75 mls/hr IV .[id number] [facility] Rx#:[id number] Lactated Ringers 1,000 ml 1000 @ 999 mls/hr IV .Q1H1M [facility] Rx#:[id number] Intake, IV Titration 2.222 62.025 Amount Norepinephrine 32 mg In 2.222 62.025 Sodium Chloride 0.9% 218 ml @ 0.03 MCG/KG/MIN 1. 818 mls/hr IV .Q24H [facility] Rx#:[id number] Output: Urine 150 575 210 Other: Voiding Method Indwelling Catheter Indwelling Catheter # Bowel Movements 1 1 - Labs CBC & Chem 7: 05/01/24 05:38 05/01/24 11:30 Labs: Abnormal Lab Results - Last 24 Hours (Table) 04/30/24 04/30/24 04/30/24 Range/Units 14:09 14:14 15:11 WBC (3.8-10.6) k/uL MCHC (31.0-37.0) g/dL Neutrophils # (1.3-7.7) k/uL Lymphocytes # (1.0-4.8) k/uL Monocytes # (0-1.0) k/uL PT 21.3 H (10.0-12.5) sec INR 2.1 H (<1.2) Potassium (3.5-5.1) mmol/L Chloride (98-107) mmol/L Carbon Dioxide (22-30) mmol/L BUN (9-20) mg/dL Creatinine (0.66-1.25) mg/dL Glucose (74-99) mg/dL Plasma Lactic Acid Yasir 2.8 H* (0.7-2.0) mmol/L Total Protein (6.3-8.2) g/dL Albumin (3.5-5.0) g/dL C. difficile (EIA) Intrp Positive A (Negative) 05/01/24 05/01/24 Range/Units 05:38 05:38 WBC 36.5 H (3.8-10.6) k/uL MCHC 30.4 L (31.0-37.0) g/dL Neutrophils # 32.7 H (1.3-7.7) k/uL Lymphocytes # 0.9 L (1.0-4.8) k/uL Monocytes # 2.3 H (0-1.0) k/uL PT (10.0-12.5) sec INR (<1.2) Potassium 3.3 L (3.5-5.1) mmol/L Chloride 111 H (98-107) mmol/L Carbon Dioxide 18 L (22-30) mmol/L BUN 31 H (9-20) mg/dL Creatinine 1.85 H (0.66-1.25) mg/dL Glucose 103 H (74-99) mg/dL Plasma Lactic Acid Yasir (0.7-2.0) mmol/L Total Protein 6.0 L (6.3-8.2) g/dL Albumin 3.2 L (3.5-5.0) g/dL C. difficile (EIA) Intrp (Negative)
[2024-05-02 03:24] LABS: Basophils % (A) 0 %; Eosinophils # (A) 0.1 k/uL (0-0.7); Eosinophils % (A) 0 %; HCT 39.1 % (39.0-53.0); Lymphocytes # (A) 0.7 k/uL (1.0-4.8); Lymphocytes % (A) 3 %; MCH 28.1 pg (25.0-35.0); MCHC 33.3 g/dL (31.0-37.0); MCV 84.2 fL (80.0-100.0); Mean Platelet Volume 8.2; Monocytes # (A) 1.7 k/uL (0-1.0); Monocytes % (A) 6 %; Neutrophils # (A) 23.5 k/uL (1.3-7.7); Neutrophils % (A) 89 %; Platelet Count 301 k/uL (150-450); RBC 4.64 m/uL (4.30-5.90); RDW 15.5 % (11.5-15.5); WBC 26.4 k/uL (3.8-10.6)
[2024-05-02 03:41] LABS: African American GFR (CKD) 50 (>60 ml/min/1.73 sqM); Anion Gap 6 mmol/L; Blood Urea Nitrogen 30 mg/dL (9-20); Carbon Dioxide 17 mmol/L (22-30); Chloride 112 mmol/L (98-107); Glucose 111 mg/dL (74-99); Non-African American GFR(CKD) 44 (>60 ml/min/1.73 sqM); Potassium 3.4 mmol/L (3.5-5.1); Sodium 135 mmol/L (137-145)
[2024-05-02] MEDS: POTASSIUM CHLORIDE 20 MEQ in WATER FOR INJECTION 1 100ML.BAG IVPB SCH (04:07)
--- NOTE | 2024-05-02 07:04 | P.PN ---
Subjective This is a pleasant 83-year-old male who resides at home has 11/02 home care that was started by his primary care provider Dr. Munoz. Patient presents with leukocytosis with sepsis initially with concerns of urosepsis with urinary tract infection. Patient was treated for C. difficile colitis on previous admission and sent home on oral antibiotics. Patient is positive for C. difficile still and continues with multiple loose stools with 5 overnight and 2 thus far today. Patient does have a fecal management system and is maintained on oral Vanco at 500 every 6 with ID following. Patient continues on pressor support and weaning slowly as tolerated. Will follow-up on repeat labs and monitor kidney functions closely. 05/02 Patient awake and alert, feels generally weak He knows he is in [facility] and his room number and he is oriented to time and person He has mild suprapubic tenderness Aguilar catheter was placed here in the emergency room as per patient He is currently getting normal saline 75 ml/h also he is on Levophed at 0.07 Review of systems: Constitutional: No reports of fatigue, fever, or chills Cardiovascular: No reports of chest pain or palpitations Respiratory: No reports of shortness of breath or cough GI: No reports of nausea, no reports of vomiting, reports of multiple loose stools and discomfort with the rectal tube : No reports of dysuria or retention Neurovascular: reports of generalized weakness Objective - Vital Signs Vital signs: Vital Signs Temp 97.8 F 05/02/24 04:00 Pulse 60 05/02/24 06:00 Resp 18 05/02/24 06:00 BP 111/59 05/02/24 06:00 Pulse Ox 97 05/02/24 06:00 FiO2 Intake & Output 05/01/24 05/01/24 05/02/24 06:59 18:59 06:59 Intake Total 892.765 3552.489 1150.447 Output Total 575 1340 871 Balance -760.715 2760.489 279.447 Weight 125.6 kg 128.6 kg Intake: IV 120 2335 900 0.9 KVO 120 110 Lactated Ringers 1,000 ml 825 900 @ 75 mls/hr IV .[id number] [facility] Rx#:[id number] Lactated Ringers 1,000 ml 1000 @ 999 mls/hr IV .Q1H1M [facility] Rx#:[id number] Magnesium Sulfate-D5w Pmx 100 1 gm In Dextrose/Water 1 100ml.bag @ 100 mls/hr IVPB ONCE ONE Rx#: [id number] Potassium Chloride 10 meq 200 In Water For Injection 1 100ml.bag @ 100 mls/hr IVPB Q1H [facility] Rx#: [id number] metroNIDAZOLE-NS PMX 500 100 mg In Saline 1 100ml.bag @ 100 mls/hr IVPB Q8HR [facility] Rx#:[id number] Intake, IV Titration 62.025 47.489 250.447 Amount Norepinephrine 32 mg In 62.025 17.272 Sodium Chloride 0.9% 218 ml @ 0.03 MCG/KG/MIN 1. 818 mls/hr IV .Q24H [facility] Rx#:[id number] Norepinephrine 8 mg In 30.217 250.447 Sodium Chloride 0.9% 250 ml @ 0.03 MCG/KG/MIN 7. 291 mls/hr IV .Q24H [facility] Rx#:[id number] Output: Urine 575 440 571 Stool 900 300 Other: Voiding Method Indwelling Catheter Indwelling Catheter Indwelling Catheter # Bowel Movements 1 1 1 - Exam -GENERAL: The patient is alert and oriented x3, not in any acute distress. Well developed, well nourished. Generally weak HEENT: Pupils are round and equally reacting to light. EOMI. No scleral icterus. No conjunctival pallor. Normocephalic, atraumatic. No pharyngeal erythema. No thyromegaly. CARDIOVASCULAR: S1 and S2 present. No murmurs, rubs, or gallops. PULMONARY: Chest is clear to auscultation, no wheezing , no crackles. -ABDOMEN: Soft, nondistended, normoactive bowel sounds. No palpable organomegaly. Mild suprapubic tenderness MUSCULOSKELETAL: No joint swelling or deformity. EXTREMITIES: No cyanosis, clubbing, or pedal edema. NEUROLOGICAL: Gross neurological examination did not reveal any focal deficits. SKIN: No rashes. no petechiae. - Labs CBC & Chem 7: 05/02/24 02:49 05/02/24 02:49 Labs: Abnormal Lab Results - Last 24 Hours (Table) 05/01/24 05/02/24 05/02/24 Range/Units 05:38 02:49 02:49 WBC 36.5 H 26.4 H (3.8-10.6) k/uL MCHC 30.4 L (31.0-37.0) g/dL Neutrophils # 32.7 H 23.5 H (1.3-7.7) k/uL Lymphocytes # 0.9 L 0.7 L (1.0-4.8) k/uL Monocytes # 2.3 H 1.7 H (0-1.0) k/uL Sodium 135 L (137-145) mmol/L Potassium 3.4 L (3.5-5.1) mmol/L Chloride 112 H (98-107) mmol/L Carbon Dioxide 17 L (22-30) mmol/L BUN 30 H (9-20) mg/dL Creatinine 1.47 H (0.66-1.25) mg/dL Glucose 111 H (74-99) mg/dL Calcium 8.0 L (8.4-10.2) mg/dL Microbiology - Last 24 Hours (Table) 04/30/24 10:28 Blood Culture - Preliminary Blood Assessment and Plan Assessment: Acute C. difficile colitis acute urinary tract infection with sepsis, present on admission, per ID source less likely Sepsis, present on admission, likely secondary to C. difficile colitis with failure of outpatient treatment with end-organ damage with hypotension and septic shock Hypotension, possible septic shock with severe sepsis,. Patient remains in the ICU on pressor support requiring pressor support Leukocytosis secondary to above Troponin 0.038, ruled out myocardial infarction History of atrial fibrillation, currently rate controlled. Was on warfarin at home History of CVA History of hypertension Hyperlipidemia history Obesity with a BMI of 37.6 Plan: Continue with normal s Ringer lactate 75 mm/h Continue with oral vancomycin Atenolol and Lasix are on hold Patient INR was 2.1 on 04/30, we will going to resume warfarin pharmacy to dose for his A-fib Infectious disease and pulmonary/critical care team consult on the case Labs and medication were reviewed.. Continue same treatment. Continue with symptomatic treatment. Resume home medication. Monitor labs and vitals. DVT and GI prophylaxis. Further recommendations as per clinical course of the patient DVT prophylaxis: Subcutaneous heparin GI Prophylaxis: Pepcid PT/OT: Pending Prognosis is guarded
[2024-05-02 08:30] LABS: INR 1.5 (<1.2); Prothrombin Time 15.2 sec (10.0-12.5)
[2024-05-02] MEDS: SODIUM BICARBONATE TAB 650 MG TAB PO SCH (09:47)
--- NOTE | 2024-05-02 10:38 | P.PN ---
Subjective Progress Note Date: 05/02/24 Principal diagnosis: Sepsis. Pulmonary consult dated April 30, 2024. 83-year-old male who is seen in the emergency department, room 2. I was called by the ER physician, as the patient apparently presented with weakness, was thought to have urosepsis, and will need an ICU bed, because the patient did not respond to fluid resuscitation, and would need a central line, and nor epinephrine. In the emergency department, the patient was laying flat in bed. His blood pressure was 91/44. His heart rate was 60. His respiratory rate was 24. The patient resides at home. He apparently has been weak for a couple of days. Labs include a white count 30.5, hemoglobin 14, hematocrit 44.4, and a platelet count of 290,000. PT was 19.9. INR was 2. Sodium 139, potassium 4.6, chlorides 108, CO2 22, BUN 28, and creatinine 1.86. Lactic acid was 2.3. Troponin was 0.038. N-terminal proBNP was 5690. The urine had 1+ protein, moderate blood, large positive leukocyte esterase, 28 RBCs, greater than 182 WBCs, and many white blood cell clumps. In addition, the patient had many bacteria. He tested negative for influenza, RSV, and coronavirus. Chest x-ray showed evidence of cardiomegaly, possible moderate-sized pericardial effusion. Progress note dated May 01, 2024. This is a 83-year-old male who was seen in consultation yesterday, in the emergency department. He is seen today in room 262, intensive care unit. He continues on oxygen by nasal cannula 2 L. The patient is getting norepinephrine at 11 mcg/min. He is getting saline at 10 cc an hour. The patient tested positive for the C. difficile colitis. For that he is on p.o. vancomycin. The patient is getting meropenem as well. The patient will end up getting a bolus of lactated Ringer's, 1 L, and started on lactated Ringer's at 75 cc an hour. We believe he is a bit dry. Currently white count 36.5, hemoglobin 14.2, hematocrit 46.8, and platelet count 369,000. Sodium 139, potassium 3.3, chlorid es 111, CO2 18, BUN 31, creatinine 1.85. Albumin is 3.2. Progress note dated May 02, 2024. 83-year-old male seen today in room 262. He is currently on 2 L of oxygen. He is getting lactated Ringer's at 75 cc an hour, and he continues on norepinephrine for sepsis, at 6 mcg/min. The patient is on oral vancomycin for C. difficile colitis, and IV Flagyl. The patient is getting sodium bicarbonate tablets for a nonanion gap metabolic acidosis, and the doses grains 10, or 650 mg, twice a day. Current labs include a white count 26.4 down from 36.5, normal hemoglobin, hematocrit, and platelet count. Sodium 135, potassium 3.4, chlorides 112, CO2 17, anion gap 6, BUN 30, creatinine 1.47. Objective - Vital Signs Vital signs: Vital Signs Temp 97.6 F 05/02/24 08:00 Pulse 62 05/02/24 10:15 Resp 22 05/02/24 10:15 BP 109/60 05/02/24 10:15 Pulse Ox 98 05/02/24 10:00 FiO2 Intake & Output 05/01/24 05/02/24 05/02/24 18:59 06:59 18:59 Intake Total 2382.489 4467.322 0325.446 Output Total 1340 871 200 Balance 1042.489 776.736 5173.446 Weight 128.6 kg Intake: IV 2335 900 400 0.9 KVO 110 Lactated Ringers 1,000 ml 825 900 300 @ 75 mls/hr IV .[id number] [facility] Rx#:[id number] Lactated Ringers 1,000 ml 1000 @ 999 mls/hr IV .Q1H1M [facility] Rx#:[id number] Magnesium Sulfate-D5w Pmx 100 1 gm In Dextrose/Water 1 100ml.bag @ 100 mls/hr IVPB ONCE [facility] Rx#: [id number] Potassium Chloride 10 meq 200 In Water For Injection 1 100ml.bag @ 100 mls/hr IVPB Q1H [facility] Rx#: [id number] metroNIDAZOLE-NS PMX 500 100 100 mg In Saline 1 100ml.bag @ 100 mls/hr IVPB Q8HR [facility] Rx#:[id number] Intake, IV Titration 47.489 250.447 16.446 Amount Norepinephrine 32 mg In 17.272 Sodium Chloride 0.9% 218 ml @ 0.03 MCG/KG/MIN 1. 818 mls/hr IV .Q24H [facility] Rx#:[id number] Norepinephrine 8 mg In 30.217 250.447 16.446 Sodium Chloride 0.9% 250 ml @ 0.03 MCG/KG/MIN 7. 291 mls/hr IV .Q24H [facility] Rx#:[id number] Oral 1120 Output: Urine 440 571 200 Stool 900 300 Other: Voiding Method Indwelling Catheter Indwelling Catheter Indwelling Catheter # Bowel Movements 1 1 0 - Exam No acute distress, oriented 3. Currently on 2 L. HEENT examination is grossly unremarkable. Mucous membranes are moist. No oral lesions. Neck supple. Full range of motion. No adenopathy thyromegaly or neck vein dist ention. Cardiovascular examination reveals regular rhythm rate. S1-S2 normal. No S3 or S4. No discernible murmur noted. Lungs reveal clear breath sounds. Breath sounds are equal bilaterally. No adventitious lung sounds including wheezes rhonchi or crackles. Abdomen soft bowel sounds are heard. No masses or tenderness. Extremities are intact. No cyanosis clubbing or edema. Skin is without rash or lesion. Neurologic examination is brief but nonfocal. - Labs CBC & Chem 7: 05/02/24 02:49 05/02/24 02:49 Labs: Abnormal Lab Results - Last 24 Hours (Table) 05/02/24 05/02/24 05/02/24 Range/Units 02:49 02:49 07:25 WBC 26.4 H (3.8-10.6) k/uL Neutrophils # 23.5 H (1.3-7.7) k/uL Lymphocytes # 0.7 L (1.0-4.8) k/uL Monocytes # 1.7 H (0-1.0) k/uL PT 15.2 H (10.0-12.5) sec INR 1.5 H (<1.2) Sodium 135 L (137-145) mmol/L Potassium 3.4 L (3.5-5.1) mmol/L Chloride 112 H (98-107) mmol/L Carbon Dioxide 17 L (22-30) mmol/L BUN 30 H (9-20) mg/dL Creatinine 1.47 H (0.66-1.25) mg/dL Glucose 111 H (74-99) mg/dL Calcium 8.0 L (8.4-10.2) mg/dL Microbiology - Last 24 Hours (Table) 04/30/24 10:28 Blood Culture - Preliminary Blood Assessment and Plan Assessment: Urinary tract infection with urosepsis, and hypotension. History of atrial fibrillation. History of CHF. History of CVA. History of hypertension. History of hyperlipidemia. Gastroesophageal reflux disease. History of prostate cancer. History of C. difficile colitis. History of kidney stones. Status post permanent pacemaker insertion. Plan: Plan dated April 30, 2024. The patient is seen in the emergency department. The patient is currently in room 2. The patient is on room air. The emergency room physician is going to insert a central line, and start the patient on norepinephrine. The patient's blood pressure was 91/44. He presented with weakness. Heart rate 60. Respiratory rate 24. Labs, x-rays, and medications are reviewed. The patient will be admitted to the intensive care unit for further monitoring and management. Plan dated May 01, 2024. The patient continues on norepinephrine for blood pressure support of 11 mcg/min. The patient is getting oxygen by nasal cannula 2 L. He is on p.o. vancomycin for C. difficile colitis, and he is also getting meropenem. We are going to give him a liter of lactated Ringer's, and continue the lactated Ringer's at 75 cc an hour. Labs, x-rays, and all medications are reviewed. The patient is overall prognosis remains guarded. Plan dated May 02, 2024. The patient is seen today in room 262. He continues on norepinephrine, at 6 mcg/min. He continues on oral vancomycin for C. difficile colitis, and IV Flagyl. Lactated Ringer's is running at 75 cc an hour. He is getting nasal O2 at 2 L. Will increase his sodium bicarbonate tablets for his nonanion gap metabolic acidosis, to grains 10, p.o., twice daily. Labs, x-rays, and all medications are reviewed. Prognosis is guarded. We will continue to follow make recommendations along the way. Time with Patient: Greater than 30
[2024-05-02] MEDS: WARFARIN 5 MG TAB PO ONE (21:11)
[2024-05-02] MEDS: ZINC OXIDE PASTE (Z-GUARD) 1 APPLIC TOPICAL PRN (21:12)
[2024-05-03 03:48] LABS: Basophils % (A) 0 %; Eosinophils # (A) 0.1 k/uL (0-0.7); Eosinophils % (A) 1 %; HCT 31.7 % (39.0-53.0); HGB 12.1 gm/dL (13.0-17.5); Lymphocytes # (A) 0.5 k/uL (1.0-4.8); Lymphocytes % (A) 4 %; MCH 32.2 pg (25.0-35.0); MCV 84.7 fL (80.0-100.0); Mean Platelet Volume 7.4; Monocytes # (A) 0.7 k/uL (0-1.0); Monocytes % (A) 6 %; Neutrophils # (A) 10.6 k/uL (1.3-7.7); Neutrophils % (A) 87 %; Platelet Count 225 k/uL (150-450); RBC 3.75 m/uL (4.30-5.90); RDW 15.2 % (11.5-15.5); WBC 12.2 k/uL (3.8-10.6)
[2024-05-03 03:54] LABS: INR 1.6 (<1.2); Prothrombin Time 16.8 sec (10.0-12.5)
[2024-05-03 03:58] LABS: African American GFR (CKD) 66 (>60 ml/min/1.73 sqM); Anion Gap 3 mmol/L; Blood Urea Nitrogen 21 mg/dL (9-20); Calcium 7.7 mg/dL (8.4-10.2); Carbon Dioxide 19 mmol/L (22-30); Chloride 112 mmol/L (98-107); Glucose 100 mg/dL (74-99); Non-African American GFR(CKD) 57 (>60 ml/min/1.73 sqM); Potassium 3.4 mmol/L (3.5-5.1); Sodium 134 mmol/L (137-145)
[2024-05-03] MEDS: POTASSIUM CHLORIDE 20 MEQ in WATER FOR INJECTION 1 100ML.BAG IVPB SCH (04:30)
--- NOTE | 2024-05-03 07:36 | P.PN ---
Subjective This is a pleasant 83-year-old male who resides at home has 11/02 home care that was started by his primary care provider Dr. Munoz. Patient presents with leukocytosis with sepsis initially with concerns of urosepsis with urinary tract infection. Patient was treated for C. difficile colitis on previous admission and sent home on oral antibiotics. Patient is positive for C. difficile still and continues with multiple loose stools with 5 overnight and 2 thus far today. Patient does have a fecal management system and is maintained on oral Vanco at 500 every 6 with ID following. Patient continues on pressor support and weaning slowly as tolerated. Will follow-up on repeat labs and monitor kidney functions closely. 05/02 Patient awake and alert, feels generally weak He knows he is in [facility] and his room number and he is oriented to time and person He has mild suprapubic tenderness Aguilar catheter was placed here in the emergency room as per patient He is currently getting normal saline 75 ml/h also he is on Levophed at 0.07 05/03 Patient has some mild abdominal cramps, he is not in distress He had 4-5 loose bowel movement overnight of small to moderate amount, he has to be changed by staff He is currently kept on no Ringer lactate 75 ml/h and oral vancomycin Review of systems: Constitutional: No reports of fatigue, fever, or chills Cardiovascular: No reports of chest pain or palpitations Respiratory: No reports of shortness of breath or cough GI: No reports of nausea, no reports of vomiting, reports of multiple loose stools and discomfort with the rectal tube : No reports of dysuria or retention Neurovascular: reports of generalized weakness Objective - Vital Signs Vital signs: Vital Signs Temp 97.9 F 05/03/24 00:15 Pulse 65 05/03/24 07:00 Resp 24 05/03/24 07:00 BP 113/59 05/03/24 07:00 Pulse Ox 98 05/03/24 06:45 FiO2 Intake & Output 05/02/24 05/03/24 05/03/24 18:59 06:59 18:59 Intake Total 3282.776 1026.590 75 Output Total 540 500 60 Balance 2742.776 526.590 15 Weight 129.7 kg Intake: IV 950 925 75 Lactated Ringers 1,000 ml 750 825 75 @ 75 mls/hr IV .[id number] [facility] Rx#:[id number] metroNIDAZOLE-NS PMX 500 200 100 mg In Saline 1 100ml.bag @ 100 mls/hr IVPB Q8HR [facility] Rx#:[id number] Intake, IV Titration 135.776 101.590 Amount Norepinephrine 8 mg In 135.776 101.590 Sodium Chloride 0.9% 250 ml @ 0.03 MCG/KG/MIN 7. 291 mls/hr IV .Q24H [facility] Rx#:[id number] Oral 2197 Output: Urine 540 500 60 Other: Voiding Method Indwelling Catheter Indwelling Catheter # Bowel Movements 0 1 1 - Exam -GENERAL: The patient is alert and oriented x3, not in any acute distress. Well developed, well nourished. Generally weak HEENT: Pupils are round and equally reacting to light. EOMI. No scleral icterus. No conjunctival pallor. Normocephalic, atraumatic. No pharyngeal erythema. No thyromegaly. CARDIOVASCULAR: S1 and S2 present. No murmurs, rubs, or gallops. PULMONARY: Chest is clear to auscultation, no wheezing , no crackles. -ABDOMEN: Soft, nondistended, normoactive bowel sounds. No palpable organomegaly. Mild suprapubic tenderness MUSCULOSKELETAL: No joint swelling or deformity. EXTREMITIES: No cyanosis, clubbing, or pedal edema. NEUROLOGICAL: Gross neurological examination did not reveal any focal deficits. SKIN: No rashes. no petechiae. - Labs CBC & Chem 7: 05/03/24 03:25 05/03/24 03:25 Labs: Abnormal Lab Results - Last 24 Hours (Table) 05/02/24 05/03/24 05/03/24 Range/Units 07:25 03:25 03:25 WBC 12.2 H (3.8-10.6) k/uL RBC 3.75 L (4.30-5.90) m/uL Hgb 12.1 L (13.0-17.5) gm/dL Hct 31.7 L (39.0-53.0) % MCHC 38.0 H (31.0-37.0) g/dL Neutrophils # 10.6 H (1.3-7.7) k/uL Lymphocytes # 0.5 L (1.0-4.8) k/uL PT 15.2 H 16.8 H (10.0-12.5) sec INR 1.5 H 1.6 H (<1.2) Sodium (137-145) mmol/L Potassium (3.5-5.1) mmol/L Chloride (98-107) mmol/L Carbon Dioxide (22-30) mmol/L BUN (9-20) mg/dL Glucose (74-99) mg/dL Calcium (8.4-10.2) mg/dL 05/03/24 Range/Units 03:25 WBC (3.8-10.6) k/uL RBC (4.30-5.90) m/uL Hgb (13.0-17.5) gm/dL Hct (39.0-53.0) % MCHC (31.0-37.0) g/dL Neutrophils # (1.3-7.7) k/uL Lymphocytes # (1.0-4.8) k/uL PT (10.0-12.5) sec INR (<1.2) Sodium 134 L (137-145) mmol/L Potassium 3.4 L (3.5-5.1) mmol/L Chloride 112 H (98-107) mmol/L Carbon Dioxide 19 L (22-30) mmol/L BUN 21 H (9-20) mg/dL Glucose 100 H (74-99) mg/dL Calcium 7.7 L (8.4-10.2) mg/dL Microbiology - Last 24 Hours (Table) 04/30/24 10:28 Blood Culture - Preliminary Blood Assessment and Plan Assessment: Acute C. difficile colitis acute urinary tract infection with sepsis, present on admission, per ID source less likely Sepsis, present on admission, likely secondary to C. difficile colitis with failure of outpatient treatment with end-organ damage with hypotension and septic shock Hypotension, possible septic shock with severe sepsis,. Patient remains in the ICU on pressor support requiring pressor support Leukocytosis secondary to above Troponin 0.038, ruled out myocardial infarction History of atrial fibrillation, currently rate controlled. Was on warfarin at home History of CVA History of hypertension Hyperlipidemia history Obesity with a BMI of 37.6 Plan: Continue with normal s Ringer lactate 75 mm/h Continue with oral vancomycin Atenolol and Lasix are on hold Patient INR was 2.1 on 04/30, we will going to resume warfarin pharmacy to dose for his A-fib Infectious disease and pulmonary/critical care team consult on the case Labs and medication were reviewed.. Continue same treatment. Continue with symptomatic treatment. Resume home medication. Monitor labs and vitals. DVT and GI prophylaxis. Further recommendations as per clinical course of the patient DVT prophylaxis: Subcutaneous heparin GI Prophylaxis: Pepcid PT/OT: Pending Prognosis is guarded
[2024-05-03] MEDS: MIDODRINE 5 MG TAB PO SCH (09:13)
--- NOTE | 2024-05-03 10:08 | P.PN ---
Subjective Progress Note Date: 05/02/24 Principal diagnosis: Reason for follow-up is sepsis secondary to severe C. difficile colitis Patient is a 83-year-old male with a past medical history significant for hypertension hyperlipidemia CVA TIA heart failure prostate cancer history of recurrent UTI as well as C. difficile colitis with recent admission to the hospital with sepsis secondary C. difficile colitis patient has been brought into the hospital concerning for weakness and apparently the patient did have a fever around 2 AM with initial concern for possible UTI however the patient has significant diarrhea and no urinary symptoms and stool for significantly positive. On today's evaluation that is 05/02/2024,the patient denies any fever or any chills, patient is breathing comfortably on 2 L current oxygen, the patient denies chest pain shortness of breath and no significant cough, patient abdo betina pain has decreased and diarrhea has slowed down fecal management system has been removed because of leakage. Patient white count is down to 26.4 creatinine is 1.47 blood cultures are pending Objective - Vital Signs Vital signs: Vital Signs Temp 97.6 F 05/02/24 08:00 Pulse 62 05/02/24 10:15 Resp 22 05/02/24 10:15 BP 109/60 05/02/24 10:15 Pulse Ox 98 05/02/24 10:00 FiO2 Intake & Output 05/01/24 05/02/24 05/02/24 18:59 06:59 18:59 Intake Total 2382.489 1336.251 0111.446 Output Total 1340 871 200 Balance 1042.489 036.200 0097.446 Weight 128.6 kg Intake: IV 2335 900 400 0.9 KVO 110 Lactated Ringers 1,000 ml 825 900 300 @ 75 mls/hr IV .[id number] [facility] Rx#:[id number] Lactated Ringers 1,000 ml 1000 @ 999 mls/hr IV .Q1H1M [facility] Rx#:[id number] Magnesium Sulfate-D5w Pmx 100 1 gm In Dextrose/Water 1 100ml.bag @ 100 mls/hr IVPB ONCE [facility] Rx#: [id number] Potassium Chloride 10 meq 200 In Water For Injection 1 100ml.bag @ 100 mls/hr IVPB Q1H [facility] Rx#: [id number] metroNIDAZOLE-NS PMX 500 100 100 mg In Saline 1 100ml.bag @ 100 mls/hr IVPB Q8HR [facility] Rx#:[id number] Intake, IV Titration 47.489 250.447 16.446 Amount Norepinephrine 32 mg In 17.272 Sodium Chloride 0.9% 218 ml @ 0.03 MCG/KG/MIN 1. 818 mls/hr IV .Q24H [facility] Rx#:[id number] Norepinephrine 8 mg In 30.217 250.447 16.446 Sodium Chloride 0.9% 250 ml @ 0.03 MCG/KG/MIN 7. 291 mls/hr IV .Q24H [facility] Rx#:[id number] Oral 1120 Output: Urine 440 571 200 Stool 900 300 Other: Voiding Method Indwelling Catheter Indwelling Catheter Indwelling Catheter # Bowel Movements 1 1 0 - Exam GENERAL DESCRIPTION: An elderly male lying in bed in no distress RESPIRATORY SYSTEM: Unlabored breathing , decreased breath sounds at bases HEART: S1 S2 regular rate and rhythm , ABDOMEN: Soft , no tenderness EXTREMITIES: No edema feet - Labs CBC & Chem 7: 05/03/24 03:25 05/03/24 03:25 Labs: Abnormal Lab Results - Last 24 Hours (Table) 05/02/24 05/02/24 05/02/24 Range/Units 02:49 02:49 07:25 WBC 26.4 H (3.8-10.6) k/uL Neutrophils # 23.5 H (1.3-7.7) k/uL Lymphocytes # 0.7 L (1.0-4.8) k/uL Monocytes # 1.7 H (0-1.0) k/uL PT 15.2 H (10.0-12.5) sec INR 1.5 H (<1.2) Sodium 135 L (137-145) mmol/L Potassium 3.4 L (3.5-5.1) mmol/L Chloride 112 H (98-107) mmol/L Carbon Dioxide 17 L (22-30) mmol/L BUN 30 H (9-20) mg/dL Creatinine 1.47 H (0.66-1.25) mg/dL Glucose 111 H (74-99) mg/dL Calcium 8.0 L (8.4-10.2) mg/dL Microbiology - Last 24 Hours (Table) 04/30/24 10:28 Blood Culture - Preliminary Blood Assessment and Plan (1) Sepsis Current Visit: Yes Status: Acute Code(s): A41.9 - SEPSIS, UNSPECIFIED ORGANISM SNOMED Code(s): 68077733 (2) C. difficile colitis Current Visit: No Status: Acute Code(s): A04.72 - ENTEROCOLITIS D/T CLOSTRIDIUM DIFFICILE, NOT SPCF RECUR SNOMED Code(s): 596594605 Plan: 1patient presented to hospital with fever elevated white count hypotension source is likely C. difficile colitis as the patient did have liquidy stools lower abdominal pain and significant elevated white count and recently admitted to the hospital for C. difficile colitis patient did have a positive UA however denies having any burning or frequency of urine clinically doubt urinary source for his sepsis 2-patient is afebrile patient white count is trending down to continue with vancomycin 500 mg p.o. every 6 hours and IV Flagyl and monitor clinical course closely Dictation was produced using [employer] dictation software. please excuse any grammatical, word or spelling errors. Time with Patient: Less than 30
--- NOTE | 2024-05-03 10:18 | P.PN ---
Subjective Progress Note Date: 05/03/24 Principal diagnosis: Sepsis. Pulmonary consult dated April 30, 2024. 83-year-old male who is seen in the emergency department, room 2. I was called by the ER physician, as the patient apparently presented with weakness, was thought to have urosepsis, and will need an ICU bed, because the patient did not respond to fluid resuscitation, and would need a central line, and nor epinephrine. In the emergency department, the patient was laying flat in bed. His blood pressure was 91/44. His heart rate was 60. His respiratory rate was 24. The patient resides at home. He apparently has been weak for a couple of days. Labs include a white count 30.5, hemoglobin 14, hematocrit 44.4, and a platelet count of 290,000. PT was 19.9. INR was 2. Sodium 139, potassium 4.6, chlorides 108, CO2 22, BUN 28, and creatinine 1.86. Lactic acid was 2.3. Troponin was 0.038. N-terminal proBNP was 5690. The urine had 1+ protein, moderate blood, large positive leukocyte esterase, 28 RBCs, greater than 182 WBCs, and many white blood cell clumps. In addition, the patient had many bacteria. He tested negative for influenza, RSV, and coronavirus. Chest x-ray showed evidence of cardiomegaly, possible moderate-sized pericardial effusion. Progress note dated May 01, 2024. This is a 83-year-old male who was seen in consultation yesterday, in the emergency department. He is seen today in room 262, intensive care unit. He continues on oxygen by nasal cannula 2 L. The patient is getting norepinephrine at 11 mcg/min. He is getting saline at 10 cc an hour. The patient tested positive for the C. difficile colitis. For that he is on p.o. vancomycin. The patient is getting meropenem as well. The patient will end up getting a bolus of lactated Ringer's, 1 L, and started on lactated Ringer's at 75 cc an hour. We believe he is a bit dry. Currently white count 36.5, hemoglobin 14.2, hematocrit 46.8, and platelet count 369,000. Sodium 139, potassium 3.3, chlorid es 111, CO2 18, BUN 31, creatinine 1.85. Albumin is 3.2. Progress note dated May 02, 2024. 83-year-old male seen today in room 262. He is currently on 2 L of oxygen. He is getting lactated Ringer's at 75 cc an hour, and he continues on norepinephrine for sepsis, at 6 mcg/min. The patient is on oral vancomycin for C. difficile colitis, and IV Flagyl. The patient is getting sodium bicarbonate tablets for a nonanion gap metabolic acidosis, and the doses grains 10, or 650 mg, twice a day. Current labs include a white count 26.4 down from 36.5, normal hemoglobin, hematocrit, and platelet count. Sodium 135, potassium 3.4, chlorides 112, CO2 17, anion gap 6, BUN 30, creatinine 1.47. Progress note dated May 03, 2024. 83-year-old male seen in room 262. The patient is resting comfortably in bed. His norepinephrine has been weaned off. We added midodrine at 10 mg 3 times a day. He is on 2 L by nasal cannula. He is getting lactated Ringer's at 75 cc an hour. Microbiologic studies have all been negative. He continues on Flagyl and vancomycin. The vancomycin is orally, for C. difficile colitis. Current labs include white count 12.2, hemoglobin 12.1, hematocrit 31.7, and a platelet count of 225,000. PT 16.8. INR 1.6. Sodium 134, potassium 3.4, chlorides 112, CO2 19, BUN 21, and creatinine 1.18. Cortisol level was 14.3. TSH was normal. Objective - Vital Signs Vital signs: Vital Signs Temp 98.2 F 05/03/24 08:00 Pulse 60 05/03/24 09:30 Resp 20 05/03/24 09:30 BP 108/51 05/03/24 09:30 Pulse Ox 97 05/03/24 09:30 FiO2 Intake & Output 05/02/24 05/03/24 05/03/24 18:59 06:59 18:59 Intake Total 3282.776 1026.590 330.914 Output Total 540 500 135 Balance 2742.776 526.590 195.914 Weight 129.7 kg Intake: IV 950 925 325 Lactated Ringers 1,000 ml 750 825 225 @ 75 mls/hr IV .[id number] [facility] Rx#:[id number] metroNIDAZOLE-NS PMX 500 200 100 100 mg In Saline 1 100ml.bag @ 100 mls/hr IVPB Q8HR [facility] Rx#:[id number] Intake, IV Titration 135.776 101.590 5.914 Amount Norepinephrine 8 mg In 135.776 101.590 5.914 Sodium Chloride 0.9% 250 ml @ 0.03 MCG/KG/MIN 7. 291 mls/hr IV .Q24H [facility] Rx#:[id number] Oral 2197 Output: Urine 540 500 135 Other: Voiding Method Indwelling Catheter Indwelling Catheter Indwelling Catheter # Bowel Movements 0 1 0 - Exam No acute distress, oriented 3. Currently on 2 L. HEENT examination is grossly unremarkable. Mucous membranes are moist. No oral lesions. Neck supple. Full range of motion. No adenopathy thyromegaly or neck vein distention. Cardiovascular examination reveals regular rhythm rate. S1-S2 normal. No S3 or S4. No discernible murmur noted. Lungs reveal clear breath sounds. Breath sounds are equal bilaterally. No adventitious lung sounds including wheezes rhonchi or crackles. Abdomen soft bowel sounds are heard. No masses or tenderness. Extremities are intact. No cyanosis clubbing or edema. Skin is without rash or lesion. Neurologic examination is brief but nonfocal. - Labs CBC & Chem 7: 05/03/24 03:25 05/03/24 03:25 Labs: Abnormal Lab Results - Last 24 Hours (Table) 05/03/24 05/03/24 05/03/24 Range/Units 03:25 03:25 03:25 WBC 12.2 H (3.8-10.6) k/uL RBC 3.75 L (4.30-5.90) m/uL Hgb 12.1 L (13.0-17.5) gm/dL Hct 31.7 L (39.0-53.0) % MCHC 38.0 H (31.0-37.0) g/dL Neutrophils # 10.6 H (1.3-7.7) k/uL Lymphocytes # 0.5 L (1.0-4.8) k/uL PT 16.8 H (10.0-12.5) sec INR 1.6 H (<1.2) Sodium 134 L (137-145) mmol/L Potassium 3.4 L (3.5-5.1) mmol/L Chloride 112 H (98-107) mmol/L Carbon Dioxide 19 L (22-30) mmol/L BUN 21 H (9-20) mg/dL Glucose 100 H (74-99) mg/dL Calcium 7.7 L (8.4-10.2) mg/dL Microbiology - Last 24 Hours (Table) 04/30/24 10:28 Blood Culture - Preliminary Blood Assessment and Plan Assessment: Urinary tract infection with urosepsis, and hypotension. History of atrial fibrillation. History of CHF. History of CVA. History of hypertension. History of hyperlipidemia. Gastroesophageal reflux disease. History of prostate cancer. History of C. difficile colitis. History of kidney stones. Status post permanent pacemaker insertion. Plan: Plan dated April 30, 2024. The patient is seen in the emergency department. The patient is currently in room 2. The patient is on room air. The emergency room physician is going to insert a central line, and start the patient on norepinephrine. The patient's blood pressure was 91/44. He presented with weakness. Heart rate 60. Respiratory rate 24. Labs, x-rays, and medications are reviewed. The patient will be admitted to the intensive care unit for further monitoring and management. Plan dated May 01, 2024. The patient continues on norepinephrine for blood pressure support of 11 mcg/min. The patient is getting oxygen by nasal cannula 2 L. He is on p.o. vancomycin for C. difficile colitis, and he is also getting meropenem. We are going to give him a liter of lactated Ringer's, and continue the lactated Ringer's at 75 cc an hour. Labs, x-rays, and all medications are reviewed. The patient is overall prognosis remains guarded. Plan dated May 02, 2024. The patient is seen today in room 262. He continues on norepinephrine, at 6 mcg/min. He continues on oral vancomycin for C. difficile colitis, and IV Flagyl. Lactated Ringer's is running at 75 cc an hour. He is getting nasal O2 at 2 L. Will increase his sodium bicarbonate tablets for his nonanion gap metabolic acidosis, to grains 10, p.o., twice daily. Labs, x-rays, and all medications are reviewed. Prognosis is guarded. We will continue to follow make recommendations along the way. Plan dated May 03, 2024. The patient is seen today in room 262. The patient has made progress. He has been weaned off of norepinephrine. We added midodrine at 10 mg 3 times a day. The patient continues on nasal O2 at 2 L. He is getting lactated Ringer's at 75 cc an hour. Microbiologic sampling has been negative. The patient continues on Flagyl, and oral vancomycin. Labs, x-rays, and all medications are reviewed. We will continue to follow the patient, and make recommendations along the way. Dictation was produced using [employer] dictation software. Please excuse any grammatical, word or spelling errors. Time with Patient: Less than 30
--- NOTE | 2024-05-03 16:45 | P.PN ---
Subjective Progress Note Date: 05/03/24 Principal diagnosis: Reason for follow-up is sepsis secondary to severe C. difficile colitis Patient is a 83-year-old male with a past medical history significant for hypertension hyperlipidemia CVA TIA heart failure prostate cancer history of recurrent UTI as well as C. difficile colitis with recent admission to the hospital with sepsis secondary C. difficile colitis patient has been brought into the hospital concerning for weakness and apparently the patient did have a fever around 2 AM with initial concern for possible UTI however the patient has significant diarrhea and no urinary symptoms and stool for significantly positive. On today's evaluation that is 05/03/2024,the patient remains to be afebrile, patient is on room air not requiring supplemental oxygen and denies any shortness of breath no chest pain or cough.Patient denies having any nausea or vomiting, no abdominal pain diarrhea has slowed on the patient is off the pressor support as of this morning as reported by the nursing staff. Patient white count is 12.2, creatinine is 1.18 blood culture have been negative Objective - Vital Signs Vital signs: Vital Signs Temp 98.2 F 05/03/24 08:00 Pulse 60 05/03/24 09:30 Resp 16 05/03/24 12:08 BP 126/63 05/03/24 12:08 Pulse Ox 95 05/03/24 12:08 FiO2 Intake & Output 05/02/24 05/03/24 05/03/24 18:59 06:59 18:59 Intake Total 3282.776 1026.590 780.914 Output Total 540 500 135 Balance 2742.776 526.590 645.914 Weight 129.7 kg Intake: IV 950 925 775 Lactated Ringers 1,000 ml 750 825 675 @ 75 mls/hr IV .[id number] [facility] Rx#:[id number] metroNIDAZOLE-NS PMX 500 200 100 100 mg In Saline 1 100ml.bag @ 100 mls/hr IVPB Q8HR [facility] Rx#:[id number] Intake, IV Titration 135.776 101.590 5.914 Amount Norepinephrine 8 mg In 135.776 101.590 5.914 Sodium Chloride 0.9% 250 ml @ 0.03 MCG/KG/MIN 7. 291 mls/hr IV .Q24H [facility] Rx#:[id number] Oral 2197 Output: Urine 540 500 135 Other: Voiding Method Indwelling Catheter Indwelling Catheter Indwelling Catheter # Bowel Movements 0 1 0 - Exam GENERAL DESCRIPTION: An elderly male lying in bed in no distress RESPIRATORY SYSTEM: Unlabored breathing , decreased breath sounds at bases HEART: S1 S2 regular rate and rhythm , ABDOMEN: Soft , no tenderness EXTREMITIES: No edema feet - Labs CBC & Chem 7: 05/03/24 03:25 05/03/24 10:42 Labs: Abnormal Lab Results - Last 24 Hours (Table) 05/03/24 05/03/24 05/03/24 Range/Units 03:25 03:25 03:25 WBC 12.2 H (3.8-10.6) k/uL RBC 3.75 L (4.30-5.90) m/uL Hgb 12.1 L (13.0-17.5) gm/dL Hct 31.7 L (39.0-53.0) % MCHC 38.0 H (31.0-37.0) g/dL Neutrophils # 10.6 H (1.3-7.7) k/uL Lymphocytes # 0.5 L (1.0-4.8) k/uL PT 16.8 H (10.0-12.5) sec INR 1.6 H (<1.2) Sodium 134 L (137-145) mmol/L Potassium 3.4 L (3.5-5.1) mmol/L Chloride 112 H (98-107) mmol/L Carbon Dioxide 19 L (22-30) mmol/L BUN 21 H (9-20) mg/dL Glucose 100 H (74-99) mg/dL Calcium 7.7 L (8.4-10.2) mg/dL Microbiology - Last 24 Hours (Table) 04/30/24 10:28 Blood Culture - Preliminary Blood Assessment and Plan (1) Sepsis Current Visit: Yes Status: Acute Code(s): A41.9 - SEPSIS, UNSPECIFIED ORGANISM SNOMED Code(s): 56049096 (2) C. difficile colitis Current Visit: No Status: Acute Code(s): A04.72 - ENTEROCOLITIS D/T CLOSTRIDIUM DIFFICILE, NOT SPCF RECUR SNOMED Code(s): 913030972 Plan: 1patient presented to hospital with fever elevated white count hypotension source is likely C. difficile colitis as the patient did have liquidy stools lower abdominal pain and significant elevated white count and recently admitted to the hospital for C. difficile colitis patient did have a positive UA however denies having any burning or frequency of urine clinically doubt urinary source for his sepsis 2-patient is afebrile patient white count is trending down to 12,000 today 3patient to continue with vancomycin 500 mg p.o. every 6 hours and IV Flagyl and monitor clinical course closely Dictation was produced using [employer] dictation software. please excuse any grammatical, word or spelling errors. Time with Patient: Less than 30
[2024-05-03] MEDS: NYSTATIN 100,000 UNIT/GM POWD 15 GM TOPICAL SCH (16:48)
[2024-05-03] MEDS: WARFARIN 5 MG TAB PO ONE (21:06)
[2024-05-04 05:10] LABS: Basophils % (A) 0 %; Eosinophils # (A) 0.2 k/uL (0-0.7); Eosinophils % (A) 2 %; HCT 37.2 % (39.0-53.0); HGB 12.4 gm/dL (13.0-17.5); Lymphocytes # (A) 0.5 k/uL (1.0-4.8); Lymphocytes % (A) 5 %; MCH 28.1 pg (25.0-35.0); MCHC 33.4 g/dL (31.0-37.0); MCV 84.2 fL (80.0-100.0); Mean Platelet Volume 8.7; Monocytes # (A) 0.6 k/uL (0-1.0); Monocytes % (A) 7 %; Neutrophils % (A) 86 %; Platelet Count 257 k/uL (150-450); RBC 4.42 m/uL (4.30-5.90); RDW 15.5 % (11.5-15.5); WBC 9.3 k/uL (3.8-10.6)
[2024-05-04 05:30] LABS: INR 2.7 (<1.2); Prothrombin Time 26.6 sec (10.0-12.5)
[2024-05-04 05:38] LABS: African American GFR (CKD) 73 (>60 ml/min/1.73 sqM); Anion Gap 1 mmol/L; Blood Urea Nitrogen 15 mg/dL (9-20); Calcium 7.9 mg/dL (8.4-10.2); Carbon Dioxide 21 mmol/L (22-30); Chloride 112 mmol/L (98-107); Glucose 93 mg/dL (74-99); Non-African American GFR(CKD) 63 (>60 ml/min/1.73 sqM); Potassium 3.8 mmol/L (3.5-5.1); Sodium 134 mmol/L (137-145)
--- NOTE | 2024-05-04 07:57 | P.PN ---
Subjective This is a pleasant 83-year-old male who resides at home has 11/02 home care that was started by his primary care provider Dr. Munoz. Patient presents with leukocytosis with sepsis initially with concerns of urosepsis with urinary tract infection. Patient was treated for C. difficile colitis on previous admission and sent home on oral antibiotics. Patient is positive for C. difficile still and continues with multiple loose stools with 5 overnight and 2 thus far today. Patient does have a fecal management system and is maintained on oral Vanco at 500 every 6 with ID following. Patient continues on pressor support and weaning slowly as tolerated. Will follow-up on repeat labs and monitor kidney functions closely. 05/02 Patient awake and alert, feels generally weak He knows he is in [facility] and his room number and he is oriented to time and person He has mild suprapubic tenderness Aguilar catheter was placed here in the emergency room as per patient He is currently getting normal saline 75 ml/h also he is on Levophed at 0.07 05/03 Patient has some mild abdominal cramps, he is not in distress He had 4-5 loose bowel movement overnight of small to moderate amount, he has to be changed by staff He is currently kept on no Ringer lactate 75 ml/h and oral vancomycin 05/04 Patient improving clinically with less diarrhea, no significant abdominal pain and he has good appetite He remains on oral vancomycin No other new complaints Physical therapy evaluation is requested Objective - Vital Signs Vital signs: Vital Signs Temp 97.6 F 05/04/24 02:00 Pulse 60 05/04/24 02:00 Resp 14 05/04/24 02:00 BP 101/69 05/04/24 02:00 Pulse Ox 98 05/04/24 02:00 FiO2 Intake & Output 05/03/24 05/04/24 05/04/24 18:59 06:59 18:59 Intake Total 1180.914 925 75 Output Total 510 485 70 Balance 670.914 440 5 Intake: IV 1175 925 75 Lactated Ringers 1,000 ml 975 825 75 @ 75 mls/hr IV .[id number] [facility] Rx#:[id number] metroNIDAZOLE-NS PMX 500 200 100 mg In Saline 1 100ml.bag @ 100 mls/hr IVPB Q8HR [facility] Rx#:[id number] Intake, IV Titration 5.914 Amount Norepinephrine 8 mg In 5.914 Sodium Chloride 0.9% 250 ml @ 0.03 MCG/KG/MIN 7. 291 mls/hr IV .Q24H [facility] Rx#:[id number] Output: Urine 510 485 70 Other: Voiding Method Indwelling Catheter Indwelling Catheter # Bowel Movements 1 1 - Exam -GENERAL: The patient is alert and oriented x3, not in any acute distress. Well developed, well nourished. Generally weak HEENT: Pupils are round and equally reacting to light. EOMI. No scleral icterus. No conjunctival pallor. Normocephalic, atraumatic. No pharyngeal erythema. No thyromegaly. CARDIOVASCULAR: S1 and S2 present. No murmurs, rubs, or gallops. PULMONARY: Chest is clear to auscultation, no wheezing , no crackles. -ABDOMEN: Soft, nondistended, normoactive bowel sounds. No palpable organomegaly. Mild suprapubic tenderness MUSCULOSKELETAL: No joint swelling or deformity. EXTREMITIES: No cyanosis, clubbing, or pedal edema. NEUROLOGICAL: Gross neurological examination did not reveal any focal deficits. SKIN: No rashes. no petechiae. - Labs CBC & Chem 7: 05/04/24 04:41 05/04/24 04:41 Labs: Abnormal Lab Results - Last 24 Hours (Table) 05/04/24 05/04/24 05/04/24 Range/Units 04:41 04:41 04:41 Hgb 12.4 L (13.0-17.5) gm/dL Hct 37.2 L (39.0-53.0) % Neutrophils # 8.0 H (1.3-7.7) k/uL Lymphocytes # 0.5 L (1.0-4.8) k/uL PT 26.6 H (10.0-12.5) sec INR 2.7 H (<1.2) Sodium 134 L (137-145) mmol/L Chloride 112 H (98-107) mmol/L Carbon Dioxide 21 L (22-30) mmol/L Calcium 7.9 L (8.4-10.2) mg/dL Microbiology - Last 24 Hours (Table) 04/30/24 10:28 Blood Culture - Preliminary Blood Assessment and Plan Assessment: Acute C. difficile colitis acute urinary tract infection with sepsis, present on admission, per ID source less likely Sepsis, present on admission, likely secondary to C. difficile colitis with failure of outpatient treatment with end-organ damage with hypotension and septic shock Hypotension, possible septic shock with severe sepsis,. Patient remains in the ICU on pressor support requiring pressor support Leukocytosis secondary to above Troponin 0.038, ruled out myocardial infarction History of atrial fibrillation, currently rate controlled. Was on warfarin at home History of CVA History of hypertension Hyperlipidemia history Obesity with a BMI of 37.6 Plan: Continue with normal s Ringer lactate 75 mm/h Continue with oral vancomycin Atenolol and Lasix are on hold Patient INR was 2.1 on 04/30, we will going to resume warfarin pharmacy to dose for his A-fib Infectious disease and pulmonary/critical care team consult on the case Labs and medication were reviewed.. Continue same treatment. Continue with symptomatic treatment. Resume home medication. Monitor labs and vitals. DVT and GI prophylaxis. Further recommendations as per clinical course of the patient DVT prophylaxis: Subcutaneous heparin GI Prophylaxis: Pepcid PT/OT: Pending Prognosis is guarded
[2024-05-04 10:13] VITALS: BMI 38.7
--- NOTE | 2024-05-04 14:16 | P.PN ---
Subjective Progress Note Date: 05/04/24 83-year-old male who is seen in the emergency department, room 2. I was called by the ER physician, as the patient apparently presented with weakness, was thought to have urosepsis, and will need an ICU bed, because the patient did not respond to fluid resuscitation, and would need a central line, and norepinephrine. In the emergency department, the patient was laying flat in bed. His blood pressure was 91/44. His heart rate was 60. His respiratory rate was 24. The patient resides at home. He apparently has been weak for a couple of days. Labs include a white count 30.5, hemoglobin 14, hematocrit 44.4, and a platelet count of 290,000. PT was 19.9. INR was 2. Sodium 139, potassium 4.6, chlorides 108, CO2 22, BUN 28, and creatinine 1.86. Lactic acid was 2.3. Troponin was 0.038. N-terminal proBNP was 5690. The urine had 1+ protein, moderate blood, large positive leukocyte esterase, 28 RBCs, greater than 182 WBCs, and many white blood cell clumps. In addition, the patient had m any bacteria. He tested negative for influenza, RSV, and coronavirus. Chest x- ray showed evidence of cardiomegaly, possible moderate-sized pericardial effusion. Progress note dated May 01, 2024. This is a 83-year-old male who was seen in consultation yesterday, in the emergency department. He is seen today in room 262, intensive care unit. He continues on oxygen by nasal cannula 2 L. The patient is getting norepinephrine at 11 mcg/min. He is getting saline at 10 cc an hour. The patient tested positive for the C. difficile colitis. For that he is on p.o. vancomycin. The patient is getting meropenem as well. The patient will end up getting a bolus of lactated Ringer's, 1 L, and started on lactated Ringer's at 75 cc an hour. We believe he is a bit dry. Currently white count 36.5, hemoglobin 14.2, hematocrit 46.8, and platelet count 369,000. Sodium 139, potassium 3.3, chlo rides 111, CO2 18, BUN 31, creatinine 1.85. Albumin is 3.2. Progress note dated May 02, 2024. 83-year-old male seen today in room 262. He is currently on 2 L of oxygen. He is getting lactated Ringer's at 75 cc an hour, and he continues on norepinephrine for sepsis, at 6 mcg/min. The patient is on oral vancomycin for C. difficile colitis, and IV Flagyl. The patient is getting sodium bicarbonate tablets for a nonanion gap metabolic acidosis, and the doses grains 10, or 650 mg, twice a day. Current labs include a white count 26.4 down from 36.5, normal hemoglobin, hematocrit, and platelet count. Sodium 135, potassium 3.4, chlorides 112, CO2 17, anion gap 6, BUN 30, creatinine 1.47. Progress note dated May 03, 2024. 83-year-old male seen in room 262. The patient is resting comfortably in bed. His norepinephrine has been weaned off. We added midodrine at 10 mg 3 times a day. He is on 2 L by nasal cannula. He is getting lactated Ringer's at 75 cc an hour. Microbiologic studies have all been negative. He continues on Flagyl and vancomycin. The vancomycin is orally, for C. difficile colitis. Current labs include white count 12.2, hemoglobin 12.1, hematocrit 31.7, and a platelet count of 225,000. PT 16.8. INR 1.6. Sodium 134, potassium 3.4, chlorides 112, CO2 19, BUN 21, and creatinine 1.18. Cortisol level was 14.3. TSH was normal. On 05/04/2024, the patient is being seen for a follow-up. The patient is currently on room air oxygen. Nevertheless, the patient continues to have episodes of diarrhea although this seems to be improving. The vesicles improved and the patient remains on oral vancomycin 500 mg p.o. 4 times a day. Flagyl will be discontinued. The patient is afebrile and hemodynamically stable currently on room air oxygen. The white cell count is down to 9.3 with a hemoglobin 12.4 and a platelet count of 257. Electrolytes are all within normal limits with a BUN of 15 and a creatinine of 1.08. Aguilar catheter is in place and the patient remains on lactated Ringer at rate of 75 cc an hour. No other significant events overnight and the patient is awake and alert and communicating. No nausea. No abdominal pain. No emesis. Objective - Vital Signs Vital signs: Vital Signs Temp 97.6 F 05/04/24 02:00 Pulse 60 05/04/24 02:00 Resp 14 05/04/24 02:00 BP 101/69 05/04/24 02:00 Pulse Ox 98 05/04/24 02:00 FiO2 Intake & Output 05/03/24 05/04/24 05/04/24 18:59 06:59 18:59 Intake Total 1180.914 925 75 Output Total 510 485 70 Balance 670.914 440 5 Intake: IV 1175 925 75 Lactated Ringers 1,000 ml 975 825 75 @ 75 mls/hr IV .[id number] ALEJANDRO Rx#:[id number] metroNIDAZOLE-NS PMX 500 200 100 mg In Saline 1 100ml.bag @ 100 mls/hr IVPB Q8HR ALEJANDRO Rx#:[id number] Intake, IV Titration 5.914 Amount Norepinephrine 8 mg In 5.914 Sodium Chloride 0.9% 250 ml @ 0.03 MCG/KG/MIN 7. 291 mls/hr IV .Q24H ALEJANDRO Rx#:[id number] Output: Urine 510 485 70 Other: Voiding Method Indwelling Catheter Indwelling Catheter # Bowel Movements 1 1 - Exam No acute distress, oriented 3. Currently on room air oxygen. The patient is obese with a body mass index of 38.8. HEENT examination is grossly unremarkable. Mucous membranes are moist. No oral lesions. Neck supple. Full range of motion. No adenopathy thyromegaly or neck vein distention. Cardiovascular examination reveals regular rhythm rate. S1-S2 normal. No S3 or S4. No discernible murmur noted. Lungs reveal clear breath sounds. Breath sounds are equal bilaterally. No adventitious lung sounds including wheezes rhonchi or crackles. Abdomen soft bowel sounds are heard. No masses or tenderness. Extremities are intact. No cyanosis clubbing or edema. Skin is without rash or lesion. Neurologic examination is brief but nonfocal. - Labs CBC & Chem 7: 05/04/24 04:41 05/04/24 04:41 Labs: Abnormal Lab Results - Last 24 Hours (Table) 05/04/24 05/04/24 05/04/24 Range/Units 04:41 04:41 04:41 Hgb 12.4 L (13.0-17.5) gm/dL Hct 37.2 L (39.0-53.0) % Neutrophils # 8.0 H (1.3-7.7) k/uL Lymphocytes # 0.5 L (1.0-4.8) k/uL PT 26.6 H (10.0-12.5) sec INR 2.7 H (<1.2) Sodium 134 L (137-145) mmol/L Chloride 112 H (98-107) mmol/L Carbon Dioxide 21 L (22-30) mmol/L Calcium 7.9 L (8.4-10.2) mg/dL Microbiology - Last 24 Hours (Table) 04/30/24 10:28 Blood Culture - Preliminary Blood Assessment and Plan Plan: C. difficile colitis with ongoing diarrhea, clinically improving. The white ce ll count is improving. Hemodynamically stable on no pressors. Recurrent urinary tract infections, currently has a Aguilar catheter in place. The patient has history of prostate cancer with previous radiation therapy and TURP Diverticulosis without acute diverticulitis. Nonobstructing left renal cortical calculi. Acute leukocytosis, improved History of heart failure with reduced ejection fraction. Paroxysmal atrial fibrillation. Permanent pacemaker, currently V paced. History of hypertension. History of hyperlipidemia. History of renal stones with previous lithotripsy. History of prostate cancer status post radiation and TURP. Obesity, with a BMI of 38.7 kg/m. Plan Discontinue Flagyl Continue oral vancomycin Monitor diarrhea Continue IV fluids with lactated Ringer at rate of 75 cc an hour Anticoagulation with warfarin and the patient's INR is at 2.7 Will continue to follow
[2024-05-04] MEDS: CHOLESTYRAMINE (WITH SUGAR) 4 GM PACKET PO SCH (15:18)
[2024-05-04] MEDS: WARFARIN 0.5 MG TAB PO ONE (20:11)
[2024-05-04] MEDS ORDERED: CHOLESTYRAMINE (WITH SUGAR) 4 GM PACKET PO SCH (21:00)
[2024-05-05 05:30] LABS: INR 3.4 (<1.2); Prothrombin Time 33.6 sec (10.0-12.5)
--- NOTE | 2024-05-05 15:30 | P.PN ---
Subjective This is a pleasant 83-year-old male who resides at home has 11/02 home care that was started by his primary care provider Dr. Munoz. Patient presents with leukocytosis with sepsis initially with concerns of urosepsis with urinary tract infection. Patient was treated for C. difficile colitis on previous admission and sent home on oral antibiotics. Patient is positive for C. difficile still and continues with multiple loose stools with 5 overnight and 2 thus far today. Patient does have a fecal management system and is maintained on oral Vanco at 500 every 6 with ID following. Patient continues on pressor support and weaning slowly as tolerated. Will follow-up on repeat labs and monitor kidney functions closely. 05/02 Patient awake and alert, feels generally weak He knows he is in [facility] and his room number and he is oriented to time and person He has mild suprapubic tenderness Aguilar catheter was placed here in the emergency room as per patient He is currently getting normal saline 75 ml/h also he is on Levophed at 0.07 05/03 Patient has some mild abdominal cramps, he is not in distress He had 4-5 loose bowel movement overnight of small to moderate amount, he has to be changed by staff He is currently kept on no Ringer lactate 75 ml/h and oral vancomycin 05/04 Patient improving clinically with less diarrhea, no significant abdominal pain and he has good appetite He remains on oral vancomycin No other new complaints Physical therapy evaluation is requested 05/05 Patient is transferred to the ICU to the general medical floor He is doing overall well today. No abdominal pain He still complaining from frequent bowel movement but he could not tell how many yesterday or this morning Patient remains on oral vancomycin Lower dose of midodrine to 5 mg, start leaving the hospital Patient also on IV fluid. INR today 3.7, patient did not receive warfarin yesterday Objective - Vital Signs Vital signs: Vital Signs Temp 98.2 F 05/05/24 12:46 Pulse 60 05/05/24 12:46 Resp 16 05/05/24 12:46 BP 130/69 05/05/24 12:46 Pulse Ox 95 05/05/24 12:46 FiO2 Intake & Output 05/04/24 05/05/24 05/05/24 18:59 06:59 18:59 Intake Total 1234 120 Output Total 1020 1000 Balance 214 -1000 120 Weight 129.7 kg Intake: IV 400 Lactated Ringers 1,000 ml 300 @ 75 mls/hr IV .[id number] ALEJANDRO Rx#:[id number] metroNIDAZOLE-NS PMX 500 100 mg In Saline 1 100ml.bag @ 100 mls/hr IVPB Q8HR ALEJANDRO Rx#:[id number] Oral 834 120 Output: Urine 1020 700 Stool 300 Other: Voiding Method Indwelling Catheter Indwelling Catheter Indwelling Catheter # Voids 300 # Bowel Movements 1 3 1 - Exam -GENERAL: The patient is alert and oriented x3, not in any acute distress. Well developed, well nourished. Generally weak HEENT: Pupils are round and equally reacting to light. EOMI. No scleral icterus. No conjunctival pallor. Normocephalic, atraumatic. No pharyngeal erythema. No thyromegaly. CARDIOVASCULAR: S1 and S2 present. No murmurs, rubs, or gallops. PULMONARY: Chest is clear to auscultation, no wheezing , no crackles. -ABDOMEN: Soft, nondistended, normoactive bowel sounds. No palpable org anomegaly. Mild suprapubic tenderness MUSCULOSKELETAL: No joint swelling or deformity. EXTREMITIES: No cyanosis, clubbing, or pedal edema. NEUROLOGICAL: Gross neurological examination did not reveal any focal deficits. SKIN: No rashes. no petechiae. - Labs CBC & Chem 7: 05/04/24 04:41 05/04/24 04:41 Labs: Abnormal Lab Results - Last 24 Hours (Table) 05/05/24 Range/Units 04:31 PT 33.6 H (10.0-12.5) sec INR 3.4 H (<1.2) Assessment and Plan Assessment: Acute C. difficile colitis acute urinary tract infection with sepsis, present on admission, per ID source less likely Sepsis, present on admission, likely secondary to C. difficile colitis with failure of outpatient treatment with end-organ damage with hypotension and septic shock Hypotension, possible septic shock with severe sepsis,. Patient remains in the ICU on pressor support requiring pressor support Leukocytosis secondary to above Troponin 0.038, ruled out myocardial infarction History of atrial fibrillation, currently rate controlled. Was on warfarin at home History of CVA History of hypertension Hyperlipidemia history Obesity with a BMI of 37.6 Plan: Continue with normal s Ringer lactate 75 mm/h Continue with oral vancomycin Atenolol and Lasix are on hold Patient INR was 2.1 on 04/30, we will going to resume warfarin pharmacy to dose for his A-fib Infectious disease and pulmonary/critical care team consult on the case Labs and medication were reviewed.. Continue same treatment. Continue with symptomatic treatment. Resume home medication. Monitor labs and vitals. DVT and GI prophylaxis. Further recommendations as per clinical course of the patie nt DVT prophylaxis: Subcutaneous heparin GI Prophylaxis: Pepcid PT/OT: Pending Prognosis is guarded
--- NOTE | 2024-05-05 16:02 | P.PN ---
Subjective Progress Note Date: 05/04/24 Principal diagnosis: Reason for follow-up is sepsis secondary to severe C. difficile colitis Patient is a 83-year-old male with a past medical history significant for hypertension hyperlipidemia CVA TIA heart failure prostate cancer history of recurrent UTI as well as C. difficile colitis with recent admission to the hospital with sepsis secondary C. difficile colitis patient has been brought into the hospital concerning for weakness and apparently the patient did have a fever around 2 AM with initial concern for possible UTI however the patient has significant diarrhea and no urinary symptoms and stool for significantly positive. On today's evaluation that is 05/04/2024, the patient continues to be afebrile, the patient is on room air and breathing comfortably, the Pt denies having any chest pain or cough, the patient denies having any abdominal pain no vomiting or any diarrhea has slowed down. Patient white count normalized to 9.3, creatinine 1.08 Objective - Vital Signs Vital signs: Vital Signs Temp 97.5 F L 05/04/24 08:00 Pulse 60 05/04/24 08:00 Resp 20 05/04/24 08:00 BP 114/62 05/04/24 08:00 Pulse Ox 96 05/04/24 08:00 FiO2 Intake & Output 05/03/24 05/04/24 05/04/24 18:59 06:59 18:59 Intake Total 1180.914 925 400 Output Total 510 485 770 Balance 670.914 440 -370 Weight 129.7 kg Intake: IV 1175 925 400 Lactated Ringers 1,000 ml 975 825 300 @ 75 mls/hr IV .[id number] ALEJANDRO Rx#:[id number] metroNIDAZOLE-NS PMX 500 200 100 100 mg In Saline 1 100ml.bag @ 100 mls/hr IVPB Q8HR ALEJANDRO Rx#:[id number] Intake, IV Titration 5.914 Amount Norepinephrine 8 mg In 5.914 Sodium Chloride 0.9% 250 ml @ 0.03 MCG/KG/MIN 7. 291 mls/hr IV .Q24H ALEJANDRO Rx#:[id number] Output: Urine 510 485 770 Other: Voiding Method Indwelling Catheter Indwelling Catheter # Bowel Movements 1 1 - Exam GENERAL DESCRIPTION: An elderly male lying in bed in no distress RESPIRATORY SYSTEM: Unlabored breathing , decreased breath sounds at bases HEART: S1 S2 regular rate and rhythm , ABDOMEN: Soft , no tenderness EXTREMITIES: No edema feet - Labs CBC & Chem 7: 05/04/24 04:41 05/04/24 04:41 Labs: Abnormal Lab Results - Last 24 Hours (Table) 05/04/24 05/04/24 05/04/24 Range/Units 04:41 04:41 04:41 Hgb 12.4 L (13.0-17.5) gm/dL Hct 37.2 L (39.0-53.0) % Neutrophils # 8.0 H (1.3-7.7) k/uL Lymphocytes # 0.5 L (1.0-4.8) k/uL PT 26.6 H (10.0-12.5) sec INR 2.7 H (<1.2) Sodium 134 L (137-145) mmol/L Chloride 112 H (98-107) mmol/L Carbon Dioxide 21 L (22-30) mmol/L Calcium 7.9 L (8.4-10.2) mg/dL Microbiology - Last 24 Hours (Table) 04/30/24 10:28 Blood Culture - Preliminary Blood Assessment and Plan (1) Sepsis Current Visit: Yes Status: Acute Code(s): A41.9 - SEPSIS, UNSPECIFIED ORGANISM SNOMED Code(s): 63624451 (2) C. difficile colitis Current Visit: No Status: Acute Code(s): A04.72 - ENTEROCOLITIS D/T CLOSTRIDIUM DIFFICILE, NOT SPCF RECUR SNOMED Code(s): 971741238 Plan: 1patient presented to hospital with fever elevated white count hypotension source is likely C. difficile colitis as the patient did have liquidy stools lower abdominal pain and significant elevated white count and recently admitted to the hospital for C. difficile colitis patient did have a positive UA however denies having any burning or frequency of urine clinically doubt urinary source for his sepsis 2-patient is afebrile patient white count has normalized 3patient to continue with vancomycin 500 mg p.o. every 6 hours and will discontinue IV Flagyl Dictation was produced using [employer] dictation software. please excuse any grammatical, word or spelling errors. Time with Patient: Less than 30
--- NOTE | 2024-05-05 16:03 | P.PN ---
Subjective Progress Note Date: 05/05/24 Principal diagnosis: Reason for follow-up is sepsis secondary to severe C. difficile colitis Patient is a 83-year-old male with a past medical history significant for hypertension hyperlipidemia CVA TIA heart failure prostate cancer history of recurrent UTI as well as C. difficile colitis with recent admission to the hospital with sepsis secondary C. difficile colitis patient has been brought into the hospital concerning for weakness and apparently the patient did have a fever around 2 AM with initial concern for possible UTI however the patient has significant diarrhea and no urinary symptoms and stool for significantly positive. On today's evaluation that is 05/05/2024, Patient is afebrile patient is currently on room air and denies having any shortness of breath, the patient denies any chest pain or cough, the patient denies any nausea vomiting did not h ave any abdominal pain, diarrhea has slowed down however the patient was complaining of significant pain and excoriation in the perirectal area. No CBC was done today he is creatinine 3.4 Objective - Vital Signs Vital signs: Vital Signs Temp 98.2 F 05/05/24 12:46 Pulse 60 05/05/24 12:46 Resp 16 05/05/24 12:46 BP 130/69 05/05/24 12:46 Pulse Ox 95 05/05/24 12:46 FiO2 Intake & Output 05/04/24 05/05/24 05/05/24 18:59 06:59 18:59 Intake Total 1234 120 Output Total 1020 1000 Balance 214 -1000 120 Weight 129.7 kg Intake: IV 400 Lactated Ringers 1,000 ml 300 @ 75 mls/hr IV .[id number] ALEJANDRO Rx#:[id number] metroNIDAZOLE-NS PMX 500 100 mg In Saline 1 100ml.bag @ 100 mls/hr IVPB Q8HR ALEJANDRO Rx#:[id number] Oral 834 120 Output: Urine 1020 700 Stool 300 Other: Voiding Method Indwelling Catheter Indwelling Catheter Indwelling Catheter # Voids 300 # Bowel Movements 1 3 1 - Exam GENERAL DESCRIPTION: An elderly male lying in bed in no distress RESPIRATORY SYSTEM: Unlabored breathing , decreased breath sounds at bases HEART: S1 S2 regular rate and rhythm , ABDOMEN: Soft , no tenderness EXTREMITIES: No edema feet - Labs CBC & Chem 7: 05/04/24 04:41 05/04/24 04:41 Labs: Abnormal Lab Results - Last 24 Hours (Table) 05/05/24 Range/Units 04:31 PT 33.6 H (10.0-12.5) sec INR 3.4 H (<1.2) Assessment and Plan (1) Sepsis Current Visit: Yes Status: Acute Code(s): A41.9 - SEPSIS, UNSPECIFIED ORGANISM SNOMED Code(s): 00172322 (2) C. difficile colitis Current Visit: No Status: Acute Code(s): A04.72 - ENTEROCOLITIS D/T CLOSTRIDIUM DIFFICILE, NOT SPCF RECUR SNOMED Code(s): 009796594 Plan: 1patient presented to hospital with fever elevated white count hypotension sour ce is likely C. difficile colitis as the patient did have liquidy stools lower abdominal pain and significant elevated white count and recently admitted to the hospital for C. difficile colitis patient did have a positive UA however denies having any burning or frequency of urine clinically doubt urinary source for his sepsis 2-patient is afebrile patient white count has normalized 3patient to continue with vancomycin 500 mg p.o. 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 please excuse any grammatical, word or spelling errors. Time with Patient: Less than 30
--- NOTE | 2024-05-05 17:58 | P.PN ---
Subjective Progress Note Date: 05/05/24 83-year-old male who is seen in the emergency department, room 2. I was called by the ER physician, as the patient apparently presented with weakness, was thought to have urosepsis, and will need an ICU bed, because the patient did not respond to fluid resuscitation, and would need a central line, and norepinephrine. In the emergency department, the patient was laying flat in bed. His blood pressure was 91/44. His heart rate was 60. His respiratory rate was 24. The patient resides at home. He apparently has been weak for a couple of days. Labs include a white count 30.5, hemoglobin 14, hematocrit 44.4, and a platelet count of 290,000. PT was 19.9. INR was 2. Sodium 139, potassium 4.6, chlorides 108, CO2 22, BUN 28, and creatinine 1.86. Lactic acid was 2.3. Troponin was 0.038. N-terminal proBNP was 5690. The urine had 1+ protein, moderate blood, large positive leukocyte esterase, 28 RBCs, greater than 182 WBCs, and many white blood cell clumps. In addition, the patient had m any bacteria. He tested negative for influenza, RSV, and coronavirus. Chest x- ray showed evidence of cardiomegaly, possible moderate-sized pericardial effusion. Progress note dated May 01, 2024. This is a 83-year-old male who was seen in consultation yesterday, in the emergency department. He is seen today in room 262, intensive care unit. He continues on oxygen by nasal cannula 2 L. The patient is getting norepinephrine at 11 mcg/min. He is getting saline at 10 cc an hour. The patient tested positive for the C. difficile colitis. For that he is on p.o. vancomycin. The patient is getting meropenem as well. The patient will end up getting a bolus of lactated Ringer's, 1 L, and started on lactated Ringer's at 75 cc an hour. We believe he is a bit dry. Currently white count 36.5, hemoglobin 14.2, hematocrit 46.8, and platelet count 369,000. Sodium 139, potassium 3.3, chlo rides 111, CO2 18, BUN 31, creatinine 1.85. Albumin is 3.2. Progress note dated May 02, 2024. 83-year-old male seen today in room 262. He is currently on 2 L of oxygen. He is getting lactated Ringer's at 75 cc an hour, and he continues on norepinephrine for sepsis, at 6 mcg/min. The patient is on oral vancomycin for C. difficile colitis, and IV Flagyl. The patient is getting sodium bicarbonate tablets for a nonanion gap metabolic acidosis, and the doses grains 10, or 650 mg, twice a day. Current labs include a white count 26.4 down from 36.5, normal hemoglobin, hematocrit, and platelet count. Sodium 135, potassium 3.4, chlorides 112, CO2 17, anion gap 6, BUN 30, creatinine 1.47. Progress note dated May 03, 2024. 83-year-old male seen in room 262. The patient is resting comfortably in bed. His norepinephrine has been weaned off. We added midodrine at 10 mg 3 times a day. He is on 2 L by nasal cannula. He is getting lactated Ringer's at 75 cc an hour. Microbiologic studies have all been negative. He continues on Flagyl and vancomycin. The vancomycin is orally, for C. difficile colitis. Current labs include white count 12.2, hemoglobin 12.1, hematocrit 31.7, and a platelet count of 225,000. PT 16.8. INR 1.6. Sodium 134, potassium 3.4, chlorides 112, CO2 19, BUN 21, and creatinine 1.18. Cortisol level was 14.3. TSH was normal. On 05/04/2024, the patient is being seen for a follow-up. The patient is currently on room air oxygen. Nevertheless, the patient continues to have episodes of diarrhea although this seems to be improving. The vesicles improved and the patient remains on oral vancomycin 500 mg p.o. 4 times a day. Flagyl will be discontinued. The patient is afebrile and hemodynamically stable currently on room air oxygen. The white cell count is down to 9.3 with a hemoglobin 12.4 and a platelet count of 257. Electrolytes are all within normal limits with a BUN of 15 and a creatinine of 1.08. Aguilar catheter is in place and the patient remains on lactated Ringer at rate of 75 cc an hour. No other significant events overnight and the patient is awake and alert and communicating. No nausea. No abdominal pain. No emesis. 05/05/2024, the patient is being seen on the floor. He remains on oral vancomycin regarding his C. difficile colitis. He reports approximately half a dozen episodes of diarrhea. He remains on oral vancomycin. Flagyl was discontinued. His white cell count is at 9.3 from yesterday, INR is therapeutic at 3.4 while the patient being on Coumadin. Electrolytes were not measured for today. He does not look to be toxic. He is tolerating his diet for now. No nausea or emesis. Pulse ox on room air is in the order of 95%. Objective - Vital Signs Vital signs: Vital Signs Temp 97.8 F 05/05/24 06:57 Pulse 59 L 05/05/24 06:57 Resp 17 05/05/24 06:57 BP 131/71 05/05/24 06:57 Pulse Ox 94 L 05/05/24 06:57 FiO2 Intake & Output 05/04/24 05/05/24 05/05/24 18:59 06:59 18:59 Intake Total 1234 120 Output Total 1020 1000 Balance 214 -1000 120 Weight 129.7 kg Intake: IV 400 Lactated Ringers 1,000 ml 300 @ 75 mls/hr IV .[id number] ALEJANDRO Rx#:[id number] metroNIDAZOLE-NS PMX 500 100 mg In Saline 1 100ml.bag @ 100 mls/hr IVPB Q8HR ALEJANDRO Rx#:[id number] Oral 834 120 Output: Urine 1020 700 Stool 300 Other: Voiding Method Indwelling Catheter Indwelling Catheter Indwelling Catheter # Voids 300 # Bowel Movements 1 3 - Exam No acute distress, oriented 3. Currently on room air oxygen. The patient is obese with a body mass index of 38.8. HEENT examination is grossly unremarkable. Mucous membranes are moist. No oral lesions. Neck supple. Full range of motion. No adenopathy thyromegaly or neck vein distention. Cardiovascular examination reveals regular rhythm rate. S1-S2 normal. No S3 or S4. No discernible murmur noted. Lungs reveal clear breath sounds. Breath sounds are equal bilaterally. No adventitious lung sounds including wheezes rhonchi or crackles. Abdomen soft bowel sounds are heard. No masses or tenderness. Extremities are intact. No cyanosis clubbing or edema. Skin is without rash or lesion. Neurologic examination is brief but nonfocal. - Labs CBC & Chem 7: 05/04/24 04:41 05/04/24 04:41 Labs: Abnormal Lab Results - Last 24 Hours (Table) 05/05/24 Range/Units 04:31 PT 33.6 H (10.0-12.5) sec INR 3.4 H (<1.2) Assessment and Plan Plan: C. difficile colitis with ongoing diarrhea, clinically improving. The white cell count is improving. Hemodynamically stable on no pressors. Currently on the medical floor. Still having episodes of diarrhea despite being on oral vancomycin. No nausea vomiting or abdominal pain. Recurrent urinary tract infections, currently has a Aguilar catheter in place. The patient has history of prostate cancer with previous radiation therapy and TURP Diverticulosis without acute diverticulitis. Nonobstructing left renal cortical calculi. Acute leukocytosis, improved History of heart failure with reduced ejection fraction. Paroxysmal atrial fibrillation. Permanent pacemaker, currently V paced. History of hypertension. History of hyperlipidemia. History of renal stones with previous lithotripsy. History of prostate cancer status post radiation and TURP. Obesity, with a BMI of 38.7 kg/m. Plan Continue oral vancomycin Monitor diarrhea Continue IV fluids with lactated Ringer at rate of 75 cc an hour Anticoagulation with warfarin Will continue to follow
[2024-05-05] MEDS: MIDODRINE 5 MG TAB PO SCH (18:08)
[2024-05-05] MEDS: WARFARIN 0.5 MG TAB PO ONE (22:03)
[2024-05-06 06:05] LABS: INR 3.1 (<1.2); Prothrombin Time 30.8 sec (10.0-12.5)
[2024-05-06] MEDS: FIDAXOMICIN 200 MG TABLET PO SCH (13:13)
--- NOTE | 2024-05-06 18:29 | P.PN ---
Subjective Progress Note Date: 05/06/24 83-year-old male who is seen in the emergency department, room 2. I was called by the ER physician, as the patient apparently presented with weakness, was thought to have urosepsis, and will need an ICU bed, because the patient did not respond to fluid resuscitation, and would need a central line, and norepinephrine. In the emergency department, the patient was laying flat in bed. His blood pressure was 91/44. His heart rate was 60. His respiratory rate was 24. The patient resides at home. He apparently has been weak for a couple of days. Labs include a white count 30.5, hemoglobin 14, hematocrit 44.4, and a platelet count of 290,000. PT was 19.9. INR was 2. Sodium 139, potassium 4.6, chlorides 108, CO2 22, BUN 28, and creatinine 1.86. Lactic acid was 2.3. Troponin was 0.038. N-terminal proBNP was 5690. The urine had 1+ protein, moderate blood, large positive leukocyte esterase, 28 RBCs, greater than 182 WBCs, and many white blood cell clumps. In addition, the patient had m any bacteria. He tested negative for influenza, RSV, and coronavirus. Chest x- ray showed evidence of cardiomegaly, possible moderate-sized pericardial effusion. Progress note dated May 01, 2024. This is a 83-year-old male who was seen in consultation yesterday, in the emergency department. He is seen today in room 262, intensive care unit. He continues on oxygen by nasal cannula 2 L. The patient is getting norepinephrine at 11 mcg/min. He is getting saline at 10 cc an hour. The patient tested positive for the C. difficile colitis. For that he is on p.o. vancomycin. The patient is getting meropenem as well. The patient will end up getting a bolus of lactated Ringer's, 1 L, and started on lactated Ringer's at 75 cc an hour. We believe he is a bit dry. Currently white count 36.5, hemoglobin 14.2, hematocrit 46.8, and platelet count 369,000. Sodium 139, potassium 3.3, chlo rides 111, CO2 18, BUN 31, creatinine 1.85. Albumin is 3.2. Progress note dated May 02, 2024. 83-year-old male seen today in room 262. He is currently on 2 L of oxygen. He is getting lactated Ringer's at 75 cc an hour, and he continues on norepinephrine for sepsis, at 6 mcg/min. The patient is on oral vancomycin for C. difficile colitis, and IV Flagyl. The patient is getting sodium bicarbonate tablets for a nonanion gap metabolic acidosis, and the doses grains 10, or 650 mg, twice a day. Current labs include a white count 26.4 down from 36.5, normal hemoglobin, hematocrit, and platelet count. Sodium 135, potassium 3.4, chlorides 112, CO2 17, anion gap 6, BUN 30, creatinine 1.47. Progress note dated May 03, 2024. 83-year-old male seen in room 262. The patient is resting comfortably in bed. His norepinephrine has been weaned off. We added midodrine at 10 mg 3 times a day. He is on 2 L by nasal cannula. He is getting lactated Ringer's at 75 cc an hour. Microbiologic studies have all been negative. He continues on Flagyl and vancomycin. The vancomycin is orally, for C. difficile colitis. Current labs include white count 12.2, hemoglobin 12.1, hematocrit 31.7, and a platelet count of 225,000. PT 16.8. INR 1.6. Sodium 134, potassium 3.4, chlorides 112, CO2 19, BUN 21, and creatinine 1.18. Cortisol level was 14.3. TSH was normal. On 05/04/2024, the patient is being seen for a follow-up. The patient is currently on room air oxygen. Nevertheless, the patient continues to have episodes of diarrhea although this seems to be improving. The vesicles improved and the patient remains on oral vancomycin 500 mg p.o. 4 times a day. Flagyl will be discontinued. The patient is afebrile and hemodynamically stable currently on room air oxygen. The white cell count is down to 9.3 with a hemoglobin 12.4 and a platelet count of 257. Electrolytes are all within normal limits with a BUN of 15 and a creatinine of 1.08. Aguilar catheter is in place and the patient remains on lactated Ringer at rate of 75 cc an hour. No other significant events overnight and the patient is awake and alert and communicating. No nausea. No abdominal pain. No emesis. 05/05/2024, the patient is being seen on the floor. He remains on oral vancomycin regarding his C. difficile colitis. He reports approximately half a dozen episodes of diarrhea. He remains on oral vancomycin. Flagyl was discontinued. His white cell count is at 9.3 from yesterday, INR is therapeutic at 3.4 while the patient being on Coumadin. Electrolytes were not measured for today. He does not look to be toxic. He is tolerating his diet for now. No nausea or emesis. Pulse ox on room air is in the order of 95%. On 05/06/2024, the patient continues to have some loose liquidy diarrhea which is gradually improving. The patient's white cell count was down to 9.3. No new labs are available from today and the most recent labs are from 05/04/2024. Nevertheless the patient INR is at 3.1. Based on ongoing diarrhea and limited response to oral vancomycin, the patient was switched to Dificid 200 mg p.o. twice a day. No nausea. No emesis. No abdominal pain. Tolerating his diet. No hypotension. No hemodynamic instability. No other significant events overnight. Objective - Vital Signs Vital signs: Vital Signs Temp 97.4 F L 05/06/24 14:17 Pulse 60 05/06/24 14:17 Resp 17 05/06/24 14:17 BP 131/67 05/06/24 17:31 Pulse Ox 95 05/06/24 17:31 FiO2 Intake & Output 05/05/24 05/06/24 05/06/24 18:59 06:59 18:59 Intake Total 1437 2980 Output Total 600 1400 500 Balance 837 -1400 2480 Intake: Oral 1437 2980 Output: Urine 600 1100 500 Stool 300 Other: Voiding Method Indwelling Catheter Indwelling Catheter Indwelling Catheter # Voids 300 # Bowel Movements 1 1 - Exam No acute distress, oriented 3. Currently on room air oxygen. The patient is obese with a body mass index of 38.8. HEENT examination is grossly unremarkable. Mucous membranes are moist. No oral lesions. Neck supple. Full range of motion. No adenopathy thyromegaly or neck vein distention. Cardiovascular examination reveals regular rhythm rate. S1-S2 normal. No S3 or S4. No discernible murmur noted. Lungs reveal clear breath sounds. Breath sounds are equal bilaterally. No adventitious lung sounds including wheezes rhonchi or crackles. Abdomen soft bowel sounds are heard. No masses or tenderness. Extremities are intact. No cyanosis clubbing or edema. Skin is without rash or lesion. Neurologic examination is brief but nonfocal. - Labs CBC & Chem 7: 05/04/24 04:41 05/04/24 04:41 Labs: Abnormal Lab Results - Last 24 Hours (Table) 05/06/24 Range/Units 05:04 PT 30.8 H (10.0-12.5) sec INR 3.1 H (<1.2) Microbiology - Last 24 Hours (Table) 04/30/24 10:28 Blood Culture - Final Blood Assessment and Plan Plan: C. difficile colitis with ongoing diarrhea, clinically improving. The white cell count is improving. Hemodynamically stable on no pressors. Currently on the medical floor. Still having episodes of diarrhea despite being on oral vancomycin. No nausea vomiting or abdominal pain. Recurrent urinary tract infections, currently has a Aguilar catheter in place. The patient has history of prostate cancer with previous radiation therapy and TURP Diverticulosis without acute diverticulitis. Nonobstructing left renal cortical calculi. Acute leukocytosis, improved History of heart failure with reduced ejection fraction. Paroxysmal atrial fibrillation. Permanent pacemaker, currently V paced. History of hypertension. History of hyperlipidemia. History of renal stones with previous lithotripsy. History of prostate cancer status post radiation and TURP. Obesity, with a BMI of 38.7 kg/m. Plan Vancomycin was switched to Dificid 200 mg p.o. twice a day Monitor diarrhea Continue IV fluids with lactated Ringer at rate of 75 cc an hour Anticoagulation with warfarin, INR is at 3.1 Will continue to follow
[2024-05-06] MEDS: WARFARIN 0.5 MG TAB PO ONE (20:50)
--- NOTE | 2024-05-06 23:31 | P.PN ---
Subjective This is a pleasant 83-year-old male who resides at home has 11/02 home care that was started by his primary care provider Dr. Munoz. Patient presents with leukocytosis with sepsis initially with concerns of urosepsis with urinary tract infection. Patient was treated for C. difficile colitis on previous admission and sent home on oral antibiotics. Patient is positive for C. difficile still and continues with multiple loose stools with 5 overnight and 2 thus far today. Patient does have a fecal management system and is maintained on oral Vanco at 500 every 6 with ID following. Patient continues on pressor support and weaning slowly as tolerated. Will follow-up on repeat labs and monitor kidney functions closely. 05/02 Patient awake and alert, feels generally weak He knows he is in [facility] and his room number and he is oriented to time and person He has mild suprapubic tenderness Aguilar catheter was placed here in the emergency room as per patient He is currently getting normal saline 75 ml/h also he is on Levophed at 0.07 05/03 Patient has some mild abdominal cramps, he is not in distress He had 4-5 loose bowel movement overnight of small to moderate amount, he has to be changed by staff He is currently kept on no Ringer lactate 75 ml/h and oral vancomycin 05/04 Patient improving clinically with less diarrhea, no significant abdominal pain and he has good appetite He remains on oral vancomycin No other new complaints Physical therapy evaluation is requested 05/05 Patient is transferred to the ICU to the general medical floor He is doing overall well today. No abdominal pain He still complaining from frequent bowel movement but he could not tell how many yesterday or this morning Patient remains on oral vancomycin Lower dose of midodrine to 5 mg, start leaving the hospital Patient also on IV fluid. INR today 3.7, patient did not receive warfarin yesterday 05/06 Patient today looks little more tired than the last few days He had 3 bowel movement in the morning which was diarrhea and made a mess in his bed and he was frustrated No abdominal pain though. Tolerates diet. No chest pain or dyspnea Objective - Vital Signs Vital signs: Vital Signs Temp 97.8 F 05/06/24 19:15 Pulse 55 L 05/06/24 19:15 Resp 18 05/06/24 19:15 BP 120/63 05/06/24 19:15 Pulse Ox 95 05/06/24 19:15 FiO2 Intake & Output 05/06/24 05/06/24 05/07/24 06:59 18:59 06:59 Intake Total 3460 Output Total 1400 500 Balance -1400 2960 Intake: Oral 3460 Output: Urine 1100 500 Stool 300 Other: Voiding Method Indwelling Catheter Indwelling Catheter # Voids 300 # Bowel Movements 1 - Exam -GENERAL: The patient is alert and oriented x3, not in any acute distress. Well developed, well nourished. Generally weak HEENT: Pupils are round and equally reacting to light. EOMI. No scleral icterus. No conjunctival pallor. Normocephalic, atraumatic. No pharyngeal erythema. No thyromegaly. CARDIOVASCULAR: S1 and S2 present. No murmurs, rubs, or gallops. PULMONARY: Chest is clear to auscultation, no wheezing , no crackles. -ABDOMEN: Soft, nondistended, normoactive bowel sounds. No palpable organomegaly. Mild suprapubic tenderness MUSCULOSKELETAL: No joint swelling or deformity. EXTREMITIES: No cyanosis, clubbing, or pedal edema. NEUROLOGICAL: Gross neurological examination did not reveal any focal deficits. SKIN: No rashes. no petechiae. - Labs CBC & Chem 7: 05/04/24 04:41 05/04/24 04:41 Labs: Abnormal Lab Results - Last 24 Hours (Table) 05/06/24 Range/Units 05:04 PT 30.8 H (10.0-12.5) sec INR 3.1 H (<1.2) Microbiology - Last 24 Hours (Table) 04/30/24 10:28 Blood Culture - Final Blood Assessment and Plan Assessment: Acute C. difficile colitis acute urinary tract infection with sepsis, present on admission, per ID source less likely Sepsis, present on admission, likely secondary to C. difficile colitis with failure of outpatient treatment with end-organ damage with hypotension and septic shock Hypotension, possible septic shock with severe sepsis,. Patient remains in the ICU on pressor support requiring pressor support Leukocytosis secondary to above Troponin 0.038, ruled out myocardial infarction History of atrial fibrillation, currently rate controlled. Was on warfarin at home History of CVA History of hypertension Hyperlipidemia history Obesity with a BMI of 37.6 Plan: Continue with normal s Ringer lactate 75 mm/h Continue with oral vancomycin Atenolol and Lasix are on hold Patient INR was 2.1 on 04/30, we will going to resume warfarin pharmacy to dose for his A-fib Infectious disease and pulmonary/critical care team consult on the case Labs and medication were reviewed.. Continue same treatment. Continue with symptomatic treatment. Resume home medication. Monitor labs and vitals. DVT and GI prophylaxis. Further recommendations as per clinical course of the patient DVT prophylaxis: Subcutaneous heparin GI Prophylaxis: Pepcid PT/OT: Pending Prognosis is guarded
[2024-05-07 06:45] LABS: INR 2.7 (<1.2); Prothrombin Time 26.2 sec (10.0-12.5)
--- NOTE | 2024-05-07 08:48 | P.PN ---
Subjective Progress Note Date: 05/06/24 Principal diagnosis: Reason for follow-up is sepsis secondary to severe C. difficile colitis Patient is a 83-year-old male with a past medical history significant for hypertension hyperlipidemia CVA TIA heart failure prostate cancer history of recurrent UTI as well as C. difficile colitis with recent admission to the hospital with sepsis secondary C. difficile colitis patient has been brought into the hospital concerning for weakness and apparently the patient did have a fever around 2 AM with initial concern for possible UTI however the patient has significant diarrhea and no urinary symptoms and stool for significantly positive. On today's evaluation that is 05/06/2024, patient has been afebrile, patient is breathing comfortably and is currently on room air, patient denies having any significant cough no chest pain, patient denies nausea vomiting however the patient have significant diarrhea with about 3 loose stools today this morning. Patient white count normalized to 9.3 as of 05/04/2024 he did have an INR of 3.1 today Objective - Vital Signs Vital signs: Vital Signs Temp 97.8 F 05/06/24 06:51 Pulse 60 05/06/24 06:51 Resp 16 05/06/24 06:51 BP 134/56 05/06/24 06:51 Pulse Ox 93 L 05/06/24 06:51 FiO2 Intake & Output 05/05/24 05/06/24 05/06/24 18:59 06:59 18:59 Intake Total 1437 712 Output Total 600 1400 Balance 837 -1400 712 Intake: Oral 1437 712 Output: Urine 600 1100 Stool 300 Other: Voiding Method Indwelling Catheter Indwelling Catheter Indwelling Catheter # Voids 300 # Bowel Movements 1 1 - Exam GENERAL DESCRIPTION: An elderly male lying in bed in no distress RESPIRATORY SYSTEM: Unlabored breathing , decreased breath sounds at bases HEART: S1 S2 regular rate and rhythm , ABDOMEN: Soft , no tenderness EXTREMITIES: No edema feet - Labs CBC & Chem 7: 05/04/24 04:41 05/04/24 04:41 Labs: Abnormal Lab Results - Last 24 Hours (Table) 05/06/24 Range/Units 05:04 PT 30.8 H (10.0-12.5) sec INR 3.1 H (<1.2) Microbiology - Last 24 Hours (Table) 04/30/24 10:28 Blood Culture - Final Blood Assessment and Plan (1) Sepsis Current Visit: Yes Status: Acute Code(s): A41.9 - SEPSIS, UNSPECIFIED ORGANISM SNOMED Code(s): 05054045 (2) C. difficile colitis Current Visit: No Status: Acute Code(s): A04.72 - ENTEROCOLITIS D/T CLOSTRIDIUM DIFFICILE, NOT SPCF RECUR SNOMED Code(s): 936171083 Plan: 1patient presented to hospital with fever elevated white count hypotension source is likely C. difficile colitis as the patient did have liquidy stools lower abdominal pain and significant elevated white count and recently admitted to the hospital for C. difficile colitis patient did have a positive UA however denies having any burning or frequency of urine clinically doubt urinary source for his sepsis 2-patient is afebrile patient white count has normalized however the patient still have significant diarrhea we will go ahead and discontinue vancomycin and start the patient on Dificid daughter at the bedside multiple question concern answered Dictation was produced using [employer] dictation software. please excuse any grammatical, word or spelling errors. Time with Patient: Less than 30
--- NOTE | 2024-05-07 13:54 | P.PN ---
Subjective This is a pleasant 83-year-old male who resides at home has 11/02 home care that was started by his primary care provider Dr. Munoz. Patient presents with leukocytosis with sepsis initially with concerns of urosepsis with urinary tract infection. Patient was treated for C. difficile colitis on previous admission and sent home on oral antibiotics. Patient is positive for C. difficile still and continues with multiple loose stools with 5 overnight and 2 thus far today. Patient does have a fecal management system and is maintained on oral Vanco at 500 every 6 with ID following. Patient continues on pressor support and weaning slowly as tolerated. Will follow-up on repeat labs and monitor kidney functions closely. 05/02 Patient awake and alert, feels generally weak He knows he is in [facility] and his room number and he is oriented to time and person He has mild suprapubic tenderness Aguilar catheter was placed here in the emergency room as per patient He is currently getting normal saline 75 ml/h also he is on Levophed at 0.07 05/03 Patient has some mild abdominal cramps, he is not in distress He had 4-5 loose bowel movement overnight of small to moderate amount, he has to be changed by staff He is currently kept on no Ringer lactate 75 ml/h and oral vancomycin 05/04 Patient improving clinically with less diarrhea, no significant abdominal pain and he has good appetite He remains on oral vancomycin No other new complaints Physical therapy evaluation is requested 05/05 Patient is transferred to the ICU to the general medical floor He is doing overall well today. No abdominal pain He still complaining from frequent bowel movement but he could not tell how many yesterday or this morning Patient remains on oral vancomycin Lower dose of midodrine to 5 mg, start leaving the hospital Patient also on IV fluid. INR today 3.7, patient did not receive warfarin yesterday 05/06 Patient today looks little more tired than the last few days He had 3 bowel movement in the morning which was diarrhea and made a mess in his bed and he was frustrated No abdominal pain though. Tolerates diet. No chest pain or dyspnea 05/07 Patient awake alert, looks comfortable not in distress No abdominal pain. He tolerates diet 75 to 100% most of the times He does not need IV fluid hydration to support his system as he is having frequent bowel movement but small amount over several days and has been stable. Patient and daughter at bedside confirmed that the small amount. His pain evaluation is 0/10, no pain anywhere He is afebrile, hemodynamically stable, not tachycardic. No leukocytosis which is improved significantly from 30-30 6.5K down to reference range at 9.3 on 05/04 INR is at therapeutic range Dificid is added by ID team from yesterday for a total of 20 doses. swing manager on the case Patient looks medically stable today however he needs 24-hour notice there is a usp. Possible discharge in 24 hours. Patient and daughter agree to go home but they want to wait till tomorrow because he has no arrangement and his usp require 24-hour notice. Also caseworker protective services working and providing Dificid available for him upon discharge. Objective - Vital Signs Vital signs: Vital Signs Temp 98.0 F 05/07/24 13:00 Pulse 60 05/07/24 13:00 Resp 16 05/07/24 13:00 BP 117/63 05/07/24 13:00 Pulse Ox 95 05/07/24 13:00 FiO2 Intake & Output 05/06/24 05/07/24 05/07/24 18:59 06:59 18:59 Intake Total 3460 220 1424 Output Total 500 800 Balance 2960 -580 1424 Intake: IV 220 Lactated Ringers 1,000 ml 220 @ 75 mls/hr IV .[id number] [facility] Rx#:[id number] Oral 3460 1424 Output: Urine 500 800 Other: Voiding Method Indwelling Catheter Indwelling Catheter Indwelling Catheter # Bowel Movements 3 - Exam -GENERAL: The patient is alert and oriented x3, not in any acute distress. Well developed, well nourished. Generally weak HEENT: Pupils are round and equally reacting to light. EOMI. No scleral icterus. No conjunctival pallor. Normocephalic, atraumatic. No pharyngeal erythema. No thyromegaly. CARDIOVASCULAR: S1 and S2 present. No murmurs, rubs, or gallops. PULMONARY: Chest is clear to auscultation, no wheezing , no crackles. -ABDOMEN: Soft, nondistended, normoactive bowel sounds. No palpable organom egaly. Mild suprapubic tenderness MUSCULOSKELETAL: No joint swelling or deformity. EXTREMITIES: No cyanosis, clubbing, or pedal edema. NEUROLOGICAL: Gross neurological examination did not reveal any focal deficits. SKIN: No rashes. no petechiae. - Labs CBC & Chem 7: 05/04/24 04:41 05/04/24 04:41 Labs: Abnormal Lab Results - Last 24 Hours (Table) 05/07/24 Range/Units 06:14 PT 26.2 H (10.0-12.5) sec INR 2.7 H (<1.2) Assessment and Plan Assessment: Acute C. difficile colitis acute urinary tract infection with sepsis, present on admission, per ID source less likely Sepsis, present on admission, likely secondary to C. difficile colitis with failure of outpatient treatment with end-organ damage with hypotension and septic shock Hypotension, possible septic shock with severe sepsis,. Patient remains in the ICU on pressor support requiring pressor support Leukocytosis secondary to above Troponin 0.038, ruled out myocardial infarction History of atrial fibrillation, currently rate controlled. Was on warfarin at home History of CVA History of hypertension Hyperlipidemia history Obesity with a BMI of 37.6 Plan: Patient currently off antibiotic Discontinued oral vancomycin which is is switched to Dificid with ID team recomm endation Atenolol and Lasix are on hold Patient INR was 2.1 on 04/30, we will going to resume warfarin pharmacy to dose for his A-fib Infectious disease and pulmonary/critical care team consult on the case Labs and medication were reviewed.. Continue same treatment. Continue with symptomatic treatment. Resume home medication. Monitor labs and vitals. DVT and GI prophylaxis. Further recommendations as per clinical course of the patient DVT prophylaxis: Subcutaneous heparin GI Prophylaxis: Pepcid PT/OT: Home health care Prognosis is guarded Possible discharge tomorrow
--- NOTE | 2024-05-07 16:02 | P.PN ---
Subjective Progress Note Date: 05/07/24 Principal diagnosis: Reason for follow-up is sepsis secondary to severe C. difficile colitis Patient is a 83-year-old male with a past medical history significant for hypertension hyperlipidemia CVA TIA heart failure prostate cancer history of recurrent UTI as well as C. difficile colitis with recent admission to the hospital with sepsis secondary C. difficile colitis patient has been brought into the hospital concerning for weakness and apparently the patient did have a fever around 2 AM with initial concern for possible UTI however the patient has significant diarrhea and no urinary symptoms and stool for significantly positive. On today's evaluation that is 05/07/2024, Patient is afebrile this morning patient denies having any chest pain shortness of breath or cough, the patient is currently on room air, patient denies any abdominal pain no nausea vomiting diarrhea he is slightly slow down. Patient did have INR of 2.7 no CBC was done today Objective - Vital Signs Vital signs: Vital Signs Temp 98.0 F 05/07/24 13:00 Pulse 60 05/07/24 13:00 Resp 16 05/07/24 13:00 BP 117/63 05/07/24 13:00 Pulse Ox 95 05/07/24 13:00 FiO2 Intake & Output 05/06/24 05/07/24 05/07/24 18:59 06:59 18:59 Intake Total 3460 220 1424 Output Total 500 800 Balance 2960 -580 1424 Intake: IV 220 Lactated Ringers 1,000 ml 220 @ 75 mls/hr IV .[id number] [facility] Rx#:[id number] Oral 3460 1424 Output: Urine 500 800 Other: Voiding Method Indwelling Catheter Indwelling Catheter Indwelling Catheter # Bowel Movements 3 - Exam GENERAL DESCRIPTION: An elderly male lying in bed in no distress RESPIRATORY SYSTEM: Unlabored breathing , decreased breath sounds at bases HEART: S1 S2 regular rate and rhythm , ABDOMEN: Soft , no tenderness EXTREMITIES: No edema feet - Labs CBC & Chem 7: 05/04/24 04:41 05/04/24 04:41 Labs: Abnormal Lab Results - Last 24 Hours (Table) 05/07/24 Range/Units 06:14 PT 26.2 H (10.0-12.5) sec INR 2.7 H (<1.2) Assessment and Plan (1) Sepsis Current Visit: Yes Status: Acute Code(s): A41.9 - SEPSIS, UNSPECIFIED ORGANISM SNOMED Code(s): 01009075 (2) C. difficile colitis Current Visit: No Status: Acute Code(s): A04.72 - ENTEROCOLITIS D/T CLOSTRIDIUM DIFFICILE, NOT SPCF RECUR SNOMED Code(s): 684250350 Plan: 1patient presented to hospital with fever elevated white count hypotension source is likely C. difficile colitis as the patient did have liquidy stools lower abdominal pain and significant elevated white count and recently admitted to the hospital for C. difficile colitis patient did have a positive UA however denies having any burning or frequency of urine clinically doubt urinary source for his sepsis 2-patient is afebrile patient white count has normalized 3-patient to continue with oral Dificid currently waiting for outpatient oral Dificid arrangement before discharge and will benefit from possible stool transplant in the outpatient setting discussed with the daughter at the bedside Dictation was produced using [employer] dictation software. please excuse any grammatical, word or spelling errors. Time with Patient: Less than 30
[2024-05-07] MEDS: WARFARIN 2.5 MG TAB PO ONE (18:13)
[2024-05-07] MEDS: LACTOBACILLUS ACIDOPHILUS/PECT 1 EACH CAPSULE PO SCH (18:13)
--- NOTE | 2024-05-07 19:37 | P.PN ---
Subjective Progress Note Date: 05/07/24 83-year-old male who is seen in the emergency department, room 2. I was called by the ER physician, as the patient apparently presented with weakness, was thought to have urosepsis, and will need an ICU bed, because the patient did not respond to fluid resuscitation, and would need a central line, and norepinephrine. In the emergency department, the patient was laying flat in bed. His blood pressure was 91/44. His heart rate was 60. His respiratory rate was 24. The patient resides at home. He apparently has been weak for a couple of days. Labs include a white count 30.5, hemoglobin 14, hematocrit 44.4, and a platelet count of 290,000. PT was 19.9. INR was 2. Sodium 139, potassium 4.6, chlorides 108, CO2 22, BUN 28, and creatinine 1.86. Lactic acid was 2.3. Troponin was 0.038. N-terminal proBNP was 5690. The urine had 1+ protein, moderate blood, large positive leukocyte esterase, 28 RBCs, greater than 182 WBCs, and many white blood cell clumps. In addition, the patient had m any bacteria. He tested negative for influenza, RSV, and coronavirus. Chest x- ray showed evidence of cardiomegaly, possible moderate-sized pericardial effusion. Progress note dated May 01, 2024. This is a 83-year-old male who was seen in consultation yesterday, in the emergency department. He is seen today in room 262, intensive care unit. He continues on oxygen by nasal cannula 2 L. The patient is getting norepinephrine at 11 mcg/min. He is getting saline at 10 cc an hour. The patient tested positive for the C. difficile colitis. For that he is on p.o. vancomycin. The patient is getting meropenem as well. The patient will end up getting a bolus of lactated Ringer's, 1 L, and started on lactated Ringer's at 75 cc an hour. We believe he is a bit dry. Currently white count 36.5, hemoglobin 14.2, hematocrit 46.8, and platelet count 369,000. Sodium 139, potassium 3.3, chlo rides 111, CO2 18, BUN 31, creatinine 1.85. Albumin is 3.2. Progress note dated May 02, 2024. 83-year-old male seen today in room 262. He is currently on 2 L of oxygen. He is getting lactated Ringer's at 75 cc an hour, and he continues on norepinephrine for sepsis, at 6 mcg/min. The patient is on oral vancomycin for C. difficile colitis, and IV Flagyl. The patient is getting sodium bicarbonate tablets for a nonanion gap metabolic acidosis, and the doses grains 10, or 650 mg, twice a day. Current labs include a white count 26.4 down from 36.5, normal hemoglobin, hematocrit, and platelet count. Sodium 135, potassium 3.4, chlorides 112, CO2 17, anion gap 6, BUN 30, creatinine 1.47. Progress note dated May 03, 2024. 83-year-old male seen in room 262. The patient is resting comfortably in bed. His norepinephrine has been weaned off. We added midodrine at 10 mg 3 times a day. He is on 2 L by nasal cannula. He is getting lactated Ringer's at 75 cc an hour. Microbiologic studies have all been negative. He continues on Flagyl and vancomycin. The vancomycin is orally, for C. difficile colitis. Current labs include white count 12.2, hemoglobin 12.1, hematocrit 31.7, and a platelet count of 225,000. PT 16.8. INR 1.6. Sodium 134, potassium 3.4, chlorides 112, CO2 19, BUN 21, and creatinine 1.18. Cortisol level was 14.3. TSH was normal. On 05/04/2024, the patient is being seen for a follow-up. The patient is currently on room air oxygen. Nevertheless, the patient continues to have episodes of diarrhea although this seems to be improving. The vesicles improved and the patient remains on oral vancomycin 500 mg p.o. 4 times a day. Flagyl will be discontinued. The patient is afebrile and hemodynamically stable currently on room air oxygen. The white cell count is down to 9.3 with a hemoglobin 12.4 and a platelet count of 257. Electrolytes are all within normal limits with a BUN of 15 and a creatinine of 1.08. Aguilar catheter is in place and the patient remains on lactated Ringer at rate of 75 cc an hour. No other significant events overnight and the patient is awake and alert and communicating. No nausea. No abdominal pain. No emesis. 05/05/2024, the patient is being seen on the floor. He remains on oral vancomycin regarding his C. difficile colitis. He reports approximately half a dozen episodes of diarrhea. He remains on oral vancomycin. Flagyl was discontinued. His white cell count is at 9.3 from yesterday, INR is therapeutic at 3.4 while the patient being on Coumadin. Electrolytes were not measured for today. He does not look to be toxic. He is tolerating his diet for now. No nausea or emesis. Pulse ox on room air is in the order of 95%. On 05/06/2024, the patient continues to have some loose liquidy diarrhea which is gradually improving. The patient's white cell count was down to 9.3. No new labs are available from today and the most recent labs are from 05/04/2024. Nevertheless the patient INR is at 3.1. Based on ongoing diarrhea and limited response to oral vancomycin, the patient was switched to Dificid 200 mg p.o. twice a day. No nausea. No emesis. No abdominal pain. Tolerating his diet. No hypotension. No hemodynamic instability. No other significant events overnight. 05/07/2024, the patient is awake and alert without any abdominal pain. He is currently on Dificid. He is receiving IV fluids and is still having frequent bowel movements yet smaller in amount. INR is therapeutic. No new complaints. Most recent INR elevated 2.7. Objective - Vital Signs Vital signs: Vital Signs Temp 98.0 F 05/07/24 13:00 Pulse 60 05/07/24 13:00 Resp 16 05/07/24 13:00 BP 117/63 05/07/24 13:00 Pulse Ox 95 05/07/24 13:00 FiO2 Intake & Output 05/07/24 05/07/24 05/08/24 06:59 18:59 06:59 Intake Total 220 3330 Output Total 800 600 Balance -580 2730 Intake: IV 220 Lactated Ringers 1,000 ml 220 @ 75 mls/hr IV .[id number] [facility] Rx#:[id number] Oral 3330 Output: Urine 800 600 Other: Voiding Method Indwelling Catheter Indwelling Catheter # Bowel Movements 3 6 - Exam No acute distress, oriented 3. Currently on room air oxygen. The patient is obese with a body mass index of 38.8. HEENT examination is grossly unremarkable. Mucous membranes are moist. No oral lesions. Neck supple. Full range of motion. No adenopathy thyromegaly or neck vein distention. Cardiovascular examination reveals regular rhythm rate. S1-S2 normal. No S3 or S4. No discernible murmur noted. Lungs reveal clear breath sounds. Breath sounds are equal bilaterally. No adventitious lung sounds including wheezes rhonchi or crackles. Abdomen soft bowel sounds are heard. No masses or tenderness. Extremities are intact. No cyanosis clubbing or edema. Skin is without rash or lesion. Neurologic examination is brief but nonfocal. - Labs CBC & Chem 7: 05/04/24 04:41 05/04/24 04:41 Labs: Abnormal Lab Results - Last 24 Hours (Table) 05/07/24 Range/Units 06:14 PT 26.2 H (10.0-12.5) sec INR 2.7 H (<1.2) Assessment and Plan Plan: C. difficile colitis with ongoing diarrhea, clinically improving. The white cell count is improving. Hemodynamically stable on no pressors. Currently on the medical floor. Still having episodes of diarrhea despite being on oral vancomycin. No nausea vomiting or abdominal pain. Patient is currently on Dificid Recurrent urinary tract infections, currently has a Aguilar catheter in place. The patient has history of prostate cancer with previous radiation therapy and TURP Diverticulosis without acute diverticulitis. Nonobstructing left renal cortical calculi. Acute leukocytosis, improved History of heart failure with reduced ejection fraction. Paroxysmal atrial fibrillation. Permanent pacemaker, currently V paced. History of hypertension. History of hyperlipidemia. History of renal stones with previous lithotripsy. History of prostate cancer status post radiation and TURP. Obesity, with a BMI of 38.7 kg/m. Plan Continue Dificid 200 mg p.o. twice a day Monitor diarrhea Continue IV fluids with lactated Ringer at rate of 75 cc an hour Anticoagulation with warfarin, INR is at 2.7 Will sign off the case
[2024-05-08 06:03] LABS: Prothrombin Time 19.9 sec (10.0-12.5)
[2024-05-08] MEDS: WARFARIN 2.5 MG TAB PO ONE (18:22)
--- NOTE | 2024-05-08 18:43 | P.PN ---
Subjective This is a pleasant 83-year-old male who resides at home has 11/02 home care that was started by his primary care provider Dr. Munoz. Patient presents with leukocytosis with sepsis initially with concerns of urosepsis with urinary tract infection. Patient was treated for C. difficile colitis on previous admission and sent home on oral antibiotics. Patient is positive for C. difficile still and continues with multiple loose stools with 5 overnight and 2 thus far today. Patient does have a fecal management system and is maintained on oral Vanco at 500 every 6 with ID following. Patient continues on pressor support and weaning slowly as tolerated. Will follow-up on repeat labs and monitor kidney functions closely. 05/02 Patient awake and alert, feels generally weak He knows he is in [facility] and his room number and he is oriented to time and person He has mild suprapubic tenderness Aguilar catheter was placed here in the emergency room as per patient He is currently getting normal saline 75 ml/h also he is on Levophed at 0.07 05/03 Patient has some mild abdominal cramps, he is not in distress He had 4-5 loose bowel movement overnight of small to moderate amount, he has to be changed by staff He is currently kept on no Ringer lactate 75 ml/h and oral vancomycin 05/04 Patient improving clinically with less diarrhea, no significant abdominal pain and he has good appetite He remains on oral vancomycin No other new complaints Physical therapy evaluation is requested 05/05 Patient is transferred to the ICU to the general medical floor He is doing overall well today. No abdominal pain He still complaining from frequent bowel movement but he could not tell how many yesterday or this morning Patient remains on oral vancomycin Lower dose of midodrine to 5 mg, start leaving the hospital Patient also on IV fluid. INR today 3.7, patient did not receive warfarin yesterday 05/06 Patient today looks little more tired than the last few days He had 3 bowel movement in the morning which was diarrhea and made a mess in his bed and he was frustrated No abdominal pain though. Tolerates diet. No chest pain or dyspnea 05/07 Patient awake alert, looks comfortable not in distress No abdominal pain. He tolerates diet 75 to 100% most of the times He does not need IV fluid hydration to support his system as he is having frequent bowel movement but small amount over several days and has been stable. Patient and daughter at bedside confirmed that the small amount. His pain evaluation is 0/10, no pain anywhere He is afebrile, hemodynamically stable, not tachycardic. No leukocytosis which is improved significantly from 30-30 6.5K down to reference range at 9.3 on 05/04 INR is at therapeutic range Dificid is added by ID team from yesterday for a total of 20 doses. energy efficient site manager on the case Patient looks medically stable today however he needs 24-hour notice there is a mcc. Possible discharge in 24 hours. Patient and daughter agree to go home but they want to wait till tomorrow because he has no arrangement and his mcc require 24-hour notice. Also sample case porter working and providing Dificid available for him upon discharge. 05/08 Patient clinically stable, he still has diarrhea but he is not dehydrated, no abdominal pain and he tolerates diet. Furthermore he states that his stool is becoming more solid like lipase compared to previous which he thinks is improving. Patient does not need IV fluids over several days now. Patient medically stable for discharge however pending prior authorization and approval for his Dificid course of antibiotic for his C. difficile colitis He remains on Coumadin and INR today is 2.0. 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 Objective - Vital Signs Vital signs: Vital Signs Temp 97.8 F 05/08/24 12:52 Pulse 61 05/08/24 12:52 Resp 18 05/08/24 12:52 BP 151/70 05/08/24 12:52 Pulse Ox 95 05/08/24 12:52 FiO2 Intake & Output 05/07/24 05/08/24 05/08/24 18:59 06:59 18:59 Intake Total 3330 220 Output Total 600 600 700 Balance 5620 380 700 Weight 129.7 kg Intake: IV 220 Lactated Ringers 1,000 ml 220 @ 75 mls/hr IV .[id number] [facility] Rx#:[id number] Oral 3330 Output: Urine 600 600 700 Other: Voiding Method Indwelling Catheter Indwelling Catheter Indwelling Catheter # Bowel Movements 6 2 1 - Exam -GENERAL: The patient is alert and oriented x3, not in any acute distress. Well developed, well nourished. Generally weak HEENT: Pupils are round and equally reacting to light. EOMI. No scleral icterus. No conjunctival pallor. Normocephalic, atraumatic. No pharyngeal erythema. No thyromegaly. CARDIOVASCULAR: S1 and S2 present. No murmurs, rubs, or gallops. PULMONARY: Chest is clear to auscultation, no wheezing , no crackles. -ABDOMEN: Soft, nondistended, normoactive bowel sounds. No palpable organomegaly. Mild suprapubic tenderness MUSCULOSKELETAL: No joint swelling or deformity. EXTREMITIES: No cyanosis, clubbing, or pedal edema. NEUROLOGICAL: Gross neurological examination did not reveal any focal deficits. SKIN: No rashes. no petechiae. - Labs CBC & Chem 7: 05/04/24 04:41 05/04/24 04:41 Labs: Abnormal Lab Results - Last 24 Hours (Table) 05/08/24 Range/Units 05:35 PT 19.9 H (10.0-12.5) sec INR 2.0 H (<1.2) Assessment and Plan Assessment: Acute C. difficile colitis acute urinary tract infection with sepsis, present on admission, per ID source less likely Sepsis, present on admission, likely secondary to C. difficile colitis with failure of outpatient treatment with end-organ damage with hypotension and septic shock Hypotension, possible septic shock with severe sepsis,. Patient remains in the ICU on pressor support requiring pressor support Leukocytosis secondary to above Troponin 0.038, ruled out myocardial infarction History of atrial fibrillation, currently rate controlled. Was on warfarin at home History of CVA History of hypertension Hyperlipidemia history Obesity with a BMI of 37.6 Plan: Patient currently off antibiotic Discontinued oral vancomycin which is is switched to Dificid with ID team recommendation Atenolol and Lasix are on hold Patient INR was 2.1 on 04/30, we will going to resume warfarin pharmacy to dose for his A-fib Infectious disease and pulmonary/critical care team consult on the case Labs and medication were reviewed.. Continue same treatment. Continue with symptomatic treatment. Resume home medication. Monitor labs and vitals. DVT and GI prophylaxis. Further recommendations as per clinical course of the patient DVT prophylaxis: Subcutaneous heparin GI Prophylaxis: Pepcid PT/OT: Home health care Prognosis is guarded Possible discharge tomorrow
[2024-05-09 05:34] LABS: INR 1.7 (<1.2); Prothrombin Time 16.9 sec (10.0-12.5)
[2024-05-09] MEDS: TAMSULOSIN 0.4 MG CAP.ER.24H PO SCH (17:40)
[2024-05-09] MEDS: WARFARIN 2 MG TAB PO ONE (17:41)
--- NOTE | 2024-05-09 22:36 | P.PN ---
Subjective Progress Note Date: 05/09/24 Principal diagnosis: Reason for follow-up is sepsis secondary to severe C. difficile colitis Patient is a 83-year-old male with a past medical history significant for hypertension hyperlipidemia CVA TIA heart failure prostate cancer history of recurrent UTI as well as C. difficile colitis with recent admission to the hospital with sepsis secondary C. difficile colitis patient has been brought into the hospital concerning for weakness and apparently the patient did have a fever around 2 AM with initial concern for possible UTI however the patient has significant diarrhea and no urinary symptoms and stool for significantly positive. On today's evaluation that is 05/09/2024 the patient continues to be afebrile, the patient is breathing comfortably on room air patient denies having any chest pain or any cough, no nausea no vomiting abdominal pain and diarrhea has slowed down slightly forming up. Patient did have a INR of 1.7 Objective - Vital Signs Vital signs: Vital Signs Temp 98.4 F 05/09/24 19:07 Pulse 64 05/09/24 19:07 Resp 18 05/09/24 19:07 BP 119/62 05/09/24 19:07 Pulse Ox 95 05/09/24 19:07 FiO2 Intake & Output 05/09/24 05/09/24 05/10/24 06:59 18:59 06:59 Intake Total 460 2094 Output Total 800 476 Balance -340 1618 Intake: IV 220 0.9 KVO 220 Oral 240 2094 Output: Urine 800 400 Post Void Residual 76 Other: Voiding Method Indwelling Catheter Indwelling Catheter # Voids 1 1 # Bowel Movements 1 1 1 - Exam GENERAL DESCRIPTION: An elderly male lying in bed in no distress RESPIRATORY SYSTEM: Unlabored breathing , decreased breath sounds at bases HEART: S1 S2 regular rate and rhythm , ABDOMEN: Soft , no tenderness EXTREMITIES: No edema feet - Labs CBC & Chem 7: 05/04/24 04:41 05/04/24 04:41 Labs: Abnormal Lab Results - Last 24 Hours (Table) 05/09/24 Range/Units 04:55 PT 16.9 H (10.0-12.5) sec INR 1.7 H (<1.2) Assessment and Plan (1) Sepsis Current Visit: Yes Status: Acute Code(s): A41.9 - SEPSIS, UNSPECIFIED ORGANISM SNOMED Code(s): 88723621 (2) C. difficile colitis Current Visit: No Status: Acute Code(s): A04.72 - ENTEROCOLITIS D/T CLOSTRIDIUM DIFFICILE, NOT SPCF RECUR SNOMED Code(s): 806870840 Plan: 1patient presented to hospital with fever elevated white count hypotension source is likely C. difficile colitis as the patient did have liquidy stools lower abdominal pain and significant elevated white count and recently admitted to the hospital for C. difficile colitis patient did have a positive UA however denies having any burning or frequency of urine clinically doubt urinary source for his sepsis 2-patient is afebrile patient white count has normalized 3-patient diarrhea has slightly decreased in intensity, to continue with oral Dificid currently waiting for outpatient oral Dificid arrangement before discharge Dictation was produced using [employer] dictation software. please excuse any grammatical, word or spelling errors. Time with Patient: Less than 30
--- NOTE | 2024-05-09 22:37 | P.PN ---
Subjective Progress Note Date: 05/08/24 Principal diagnosis: Reason for follow-up is sepsis secondary to severe C. difficile colitis Patient is a 83-year-old male with a past medical history significant for hypertension hyperlipidemia CVA TIA heart failure prostate cancer history of recurrent UTI as well as C. difficile colitis with recent admission to the hospital with sepsis secondary C. difficile colitis patient has been brought into the hospital concerning for weakness and apparently the patient did have a fever around 2 AM with initial concern for possible UTI however the patient has significant diarrhea and no urinary symptoms and stool for significantly positive. On today's evaluation that is 05/08/2024,the patient denies any fever or any chills, patient is breathing comfortably on room air, the patient denies chest pain shortness of breath and no significant cough, patient denies abdominal pain, no nausea vomiting, diarrhea has slightly decreased in intensity Patient did have INR of 2.0 Objective - Vital Signs Vital signs: Vital Signs Temp 97.8 F 05/08/24 12:52 Pulse 61 05/08/24 12:52 Resp 18 05/08/24 12:52 BP 151/70 05/08/24 12:52 Pulse Ox 95 05/08/24 12:52 FiO2 Intake & Output 05/07/24 05/08/24 05/08/24 18:59 06:59 18:59 Intake Total 3330 220 Output Total 600 600 Balance 2730 -380 Intake: IV 220 Lactated Ringers 1,000 ml 220 @ 75 mls/hr IV .[id number] ALEJANDRO Rx#:[id number] Oral 3330 Output: Urine 600 600 Other: Voiding Method Indwelling Catheter Indwelling Catheter Indwelling Catheter # Bowel Movements 6 2 1 - Exam GENERAL DESCRIPTION: An elderly male lying in bed in no distress RESPIRATORY SYSTEM: Unlabored breathing , decreased breath sounds at bases HEART: S1 S2 regular rate and rhythm , ABDOMEN: Soft , no tenderness EXTREMITIES: No edema feet - Labs CBC & Chem 7: 05/04/24 04:41 05/04/24 04:41 Labs: Abnormal Lab Results - Last 24 Hours (Table) 05/08/24 Range/Units 05:35 PT 19.9 H (10.0-12.5) sec INR 2.0 H (<1.2) Assessment and Plan (1) Sepsis Current Visit: Yes Status: Acute Code(s): A41.9 - SEPSIS, UNSPECIFIED ORGANISM SNOMED Code(s): 55091825 (2) C. difficile colitis Current Visit: No Status: Acute Code(s): A04.72 - ENTEROCOLITIS D/T CLOSTRIDIUM DIFFICILE, NOT SPCF RECUR SNOMED Code(s): 749477680 Plan: 1patient presented to hospital with fever elevated white count hypotension source is likely C. difficile colitis as the patient did have liquidy stools lo wer abdominal pain and significant elevated white count and recently admitted to the hospital for C. difficile colitis patient did have a positive UA however denies having any burning or frequency of urine clinically doubt urinary source for his sepsis 2-patient is afebrile patient white count has normalized 3-patient diarrhea has slightly decreased in intensity, patient is currently being treated with oral Dificid as he did have persistent diarrhea with vancomycin, currently waiting for outpatient oral Dificid arrangement Dictation was produced using [employer] dictation software. please excuse any grammatical, word or spelling errors. Time with Patient: Less than 30
--- NOTE | 2024-05-09 23:05 | P.PN ---
Subjective This is a pleasant 83-year-old male who resides at home has 11/02 home care that was started by his primary care provider Dr. Munoz. Patient presents with leukocytosis with sepsis initially with concerns of urosepsis with urinary tract infection. Patient was treated for C. difficile colitis on previous admission and sent home on oral antibiotics. Patient is positive for C. difficile still and continues with multiple loose stools with 5 overnight and 2 thus far today. Patient does have a fecal management system and is maintained on oral Vanco at 500 every 6 with ID following. Patient continues on pressor support and weaning slowly as tolerated. Will follow-up on repeat labs and monitor kidney functions closely. 05/02 Patient awake and alert, feels generally weak He knows he is in [facility] and his room number and he is oriented to time and person He has mild suprapubic tenderness Aguilar catheter was placed here in the emergency room as per patient He is currently getting normal saline 75 ml/h also he is on Levophed at 0.07 05/03 Patient has some mild abdominal cramps, he is not in distress He had 4-5 loose bowel movement overnight of small to moderate amount, he has to be changed by staff He is currently kept on no Ringer lactate 75 ml/h and oral vancomycin 05/04 Patient improving clinically with less diarrhea, no significant abdominal pain and he has good appetite He remains on oral vancomycin No other new complaints Physical therapy evaluation is requested 05/05 Patient is transferred to the ICU to the general medical floor He is doing overall well today. No abdominal pain He still complaining from frequent bowel movement but he could not tell how many yesterday or this morning Patient remains on oral vancomycin Lower dose of midodrine to 5 mg, start leaving the hospital Patient also on IV fluid. INR today 3.7, patient did not receive warfarin yesterday 05/06 Patient today looks little more tired than the last few days He had 3 bowel movement in the morning which was diarrhea and made a mess in his bed and he was frustrated No abdominal pain though. Tolerates diet. No chest pain or dyspnea 05/07 Patient awake alert, looks comfortable not in distress No abdominal pain. He tolerates diet 75 to 100% most of the times He does not need IV fluid hydration to support his system as he is having frequent bowel movement but small amount over several days and has been stable. Patient and daughter at bedside confirmed that the small amount. His pain evaluation is 0/10, no pain anywhere He is afebrile, hemodynamically stable, not tachycardic. No leukocytosis which is improved significantly from 30-30 6.5K down to reference range at 9.3 on 05/04 INR is at therapeutic range Dificid is added by ID team from yesterday for a total of 20 doses. enforcement manager on the case Patient looks medically stable today however he needs 24-hour notice there is a halfway. Possible discharge in 24 hours. Patient and daughter agree to go home but they want to wait till tomorrow because he has no arrangement and his halfway require 24-hour notice. Also block and case maker working and providing Dificid available for him upon discharge. 05/08 Patient clinically stable, he still has diarrhea but he is not dehydrated, no abdominal pain and he tolerates diet. Furthermore he states that his stool is becoming more solid like lipase compared to previous which he thinks is improving. Patient does not need IV fluids over several days now. Patient medically stable for discharge however pending prior authorization and approval for his Dificid course of antibiotic for his C. difficile colitis He remains on Coumadin and INR today is 2.0. 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 No need for IV fluid. Pain controlled. He tolerates diet He is medically stable for discharge pending authorization for his Dificid for his C. difficile colitis treatment upon discharge His INR today is 1.7, will increase his Coumadin 2.5 yesterday up to 4.0 mg today Patient's wants the Aguilar catheter to be discontinued. We added Flomax and will keep checking bladder scan Objective - Vital Signs Vital signs: Vital Signs Temp 97.8 F 05/09/24 13:03 Pulse 60 05/09/24 13:03 Resp 18 05/09/24 13:03 BP 151/76 05/09/24 13:03 Pulse Ox 95 05/09/24 13:03 FiO2 Intake & Output 05/08/24 05/09/24 05/09/24 18:59 06:59 18:59 Intake Total 460 Output Total 700 800 400 Balance -700 -340 -400 Weight 129.7 kg Intake: IV 220 0.9 KVO 220 Oral 240 Output: Urine 700 800 400 Other: Voiding Method Indwelling Catheter Indwelling Catheter Indwelling Catheter # Bowel Movements 1 1 1 - Exam -GENERAL: The patient is alert and oriented x3, not in any acute distress. Well developed, well nourished. Generally weak HEENT: Pupils are round and equally reacting to light. EOMI. No scleral icterus. No conjunctival pallor. Normocephalic, atraumatic. No pharyngeal erythema. No thyromegaly. CARDIOVASCULAR: S1 and S2 present. No murmurs, rubs, or gallops. PULMONARY: Chest is clear to auscultation, no wheezing , no crackles. -ABDOMEN: Soft, nondistended, normoactive bowel sounds. No palpable organomegaly. Mild suprapubic tenderness MUSCULOSKELETAL: No joint swelling or deformity. EXTREMITIES: No cyanosis, clubbing, or pedal edema. NEUROLOGICAL: Gross neurological examination did not reveal any focal deficits. SKIN: No rashes. no petechiae. - Labs CBC & Chem 7: 05/04/24 04:41 05/04/24 04:41 Labs: Abnormal Lab Results - Last 24 Hours (Table) 05/09/24 Range/Units 04:55 PT 16.9 H (10.0-12.5) sec INR 1.7 H (<1.2) Assessment and Plan Assessment: Acute C. difficile colitis acute urinary tract infection with sepsis, present on admission, per ID source less likely Sepsis, present on admission, likely secondary to C. difficile colitis with failure of outpatient treatment with end-organ damage with hypotension and s eptic shock Hypotension, possible septic shock with severe sepsis,. Patient remains in the ICU on pressor support requiring pressor support Leukocytosis secondary to above Troponin 0.038, ruled out myocardial infarction History of atrial fibrillation, currently rate controlled. Was on warfarin at home History of CVA History of hypertension Hyperlipidemia history Obesity with a BMI of 37.6 Plan: Patient currently off antibiotic Discontinued oral vancomycin which is is switched to Dificid with ID team recommendation Atenolol and Lasix are on hold Patient INR was 2.1 on 04/30, we will going to resume warfarin pharmacy to dose for his A-fib Infectious disease and pulmonary/critical care team consult on the case Labs and medication were reviewed.. Continue same treatment. Continue with symptomatic treatment. Resume home medication. Monitor labs and vitals. DVT and GI prophylaxis. Further recommendations as per clinical course of the patient DVT prophylaxis: Subcutaneous heparin GI Prophylaxis: Pepcid PT/OT: Home health care Prognosis is guarded Possible discharge tomorrow
[2024-05-10 05:53] LABS: INR 1.5 (<1.2); Prothrombin Time 15.6 sec (10.0-12.5)
--- NOTE | 2024-05-10 17:04 | P.PN ---
Subjective This is a pleasant 83-year-old male who resides at home has 11/02 home care that was started by his primary care provider Dr. Munoz. Patient presents with leukocytosis with sepsis initially with concerns of urosepsis with urinary tract infection. Patient was treated for C. difficile colitis on previous admission and sent home on oral antibiotics. Patient is positive for C. difficile still and continues with multiple loose stools with 5 overnight and 2 thus far today. Patient does have a fecal management system and is maintained on oral Vanco at 500 every 6 with ID following. Patient continues on pressor support and weaning slowly as tolerated. Will follow-up on repeat labs and monitor kidney functions closely. 05/02 Patient awake and alert, feels generally weak He knows he is in [facility] and his room number and he is oriented to time and person He has mild suprapubic tenderness Aguilar catheter was placed here in the emergency room as per patient He is currently getting normal saline 75 ml/h also he is on Levophed at 0.07 05/03 Patient has some mild abdominal cramps, he is not in distress He had 4-5 loose bowel movement overnight of small to moderate amount, he has to be changed by staff He is currently kept on no Ringer lactate 75 ml/h and oral vancomycin 05/04 Patient improving clinically with less diarrhea, no significant abdominal pain and he has good appetite He remains on oral vancomycin No other new complaints Physical therapy evaluation is requested 05/05 Patient is transferred to the ICU to the general medical floor He is doing overall well today. No abdominal pain He still complaining from frequent bowel movement but he could not tell how many yesterday or this morning Patient remains on oral vancomycin Lower dose of midodrine to 5 mg, start leaving the hospital Patient also on IV fluid. INR today 3.7, patient did not receive warfarin yesterday 05/06 Patient today looks little more tired than the last few days He had 3 bowel movement in the morning which was diarrhea and made a mess in his bed and he was frustrated No abdominal pain though. Tolerates diet. No chest pain or dyspnea 05/07 Patient awake alert, looks comfortable not in distress No abdominal pain. He tolerates diet 75 to 100% most of the times He does not need IV fluid hydration to support his system as he is having frequent bowel movement but small amount over several days and has been stable. Patient and daughter at bedside confirmed that the small amount. His pain evaluation is 0/10, no pain anywhere He is afebrile, hemodynamically stable, not tachycardic. No leukocytosis which is improved significantly from 30-30 6.5K down to reference range at 9.3 on 05/04 INR is at therapeutic range Dificid is added by ID team from yesterday for a total of 20 doses. manager motor on the case Patient looks medically stable today however he needs 24-hour notice there is a nursing home. Possible discharge in 24 hours. Patient and daughter agree to go home but they want to wait till tomorrow because he has no arrangement and his nursing home require 24-hour notice. Also case folder working and providing Dificid available for him upon discharge. 05/08 Patient clinically stable, he still has diarrhea but he is not dehydrated, no abdominal pain and he tolerates diet. Furthermore he states that his stool is becoming more solid like lipase compared to previous which he thinks is improving. Patient does not need IV fluids over several days now. Patient medically stable for discharge however pending prior authorization and approval for his Dificid course of antibiotic for his C. difficile colitis He remains on Coumadin and INR today is 2.0. 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 No need for IV fluid. Pain controlled. He tolerates diet He is medically stable for discharge pending authorization for his Dificid for his C. difficile colitis treatment upon discharge His INR today is 1.7, will increase his Coumadin 2.5 yesterday up to 4.0 mg today Patient's wants the Aguilar catheter to be discontinued. We added Flomax and will keep checking bladder scan 05/10 still with diarrhea but not conspicuous His INR today is still down to 1.5 he got 4 mg last night and we will going to increase it to 6 mg tonight We checked his bladder current and there is no urine retention is about 100-150. Patient keeps of Aguilar catheter Pending authorization for his Dificid for C. difficile colitis upon discharge other than that he is medically stable Objective - Vital Signs Vital signs: Vital Signs Temp 97.7 F 05/10/24 12:46 Pulse 61 05/10/24 12:52 Resp 16 05/10/24 12:46 BP 118/62 05/10/24 12:52 Pulse Ox 96 05/10/24 12:46 FiO2 Intake & Output 05/09/24 05/10/24 05/10/24 18:59 06:59 18:59 Intake Total 2094 1660 Output Total 476 Balance 1618 1660 Intake: Oral 2093 1660 Output: Urine 400 Post Void Residual 76 Other: Voiding Method Indwelling Catheter Indwelling Catheter Indwelling Catheter # Voids 1 1 # Bowel Movements 1 1 - Exam -GENERAL: The patient is alert and oriented x3, not in any acute distress. Well developed, well nourished. Generally weak HEENT: Pupils are round and equally reacting to light. EOMI. No scleral icterus. No conjunctival pallor. Normocephalic, atraumatic. No pharyngeal erythema. No thyromegaly. CARDIOVASCULAR: S1 and S2 present. No murmurs, rubs, or gallops. PULMONARY: Chest is clear to auscultation, no wheezing , no crackles. -ABDOMEN: Soft, nondistended, normoactive bowel sounds. No palpable organomegaly. Mild suprapubic tenderness MUSCULOSKELETAL: No joint swelling or deformity. EXTREMITIES: No cyanosis, clubbing, or pedal edema. NEUROLOGICAL: Gross neurological examination did not reveal any focal deficits. SKIN: No rashes. no petechiae. - Labs CBC & Chem 7: 05/04/24 04:41 05/04/24 04:41 Labs: Abnormal Lab Results - Last 24 Hours (Table) 05/10/24 Range/Units 04:22 PT 15.6 H (10.0-12.5) sec INR 1.5 H (<1.2) Assessment and Plan Assessment: Acute C. difficile colitis acute urinary tract infection with sepsis, present on admission, per ID source less likely Sepsis, present on admission, likely secondary to C. difficile colitis with failure of outpatient treatment with end-organ damage with hypotension and septic shock Hypotension, possible septic shock with severe sepsis,. Patient remains in the ICU on pressor support requiring pressor support Leukocytosis secondary to above Troponin 0.038, ruled out myocardial infarction History of atrial fibrillation, currently rate controlled. Was on warfarin at home History of CVA History of hypertension Hyperlipidemia history Obesity with a BMI of 37.6 Plan: Patient currently off antibiotic Discontinued oral vancomycin which is is switched to Dificid with ID team recommendation Atenolol and Lasix are on hold Patient INR was 2.1 on 04/30, we will going to resume warfarin pharmacy to dose for his A-fib Infectious disease and pulmonary/critical care team consult on the case Labs and medication were reviewed.. Continue same treatment. Continue with symptomatic treatment. Resume home medication. Monitor labs and vitals. DVT and GI prophylaxis. Further recommendations as per clinical course of the patient DVT prophylaxis: Subcutaneous heparin GI Prophylaxis: Pepcid PT/OT: Home health care Prognosis is guarded Possible discharge tomorrow
[2024-05-10] MEDS: WARFARIN 2 MG TAB PO ONE ×2 (18:00→20:45)
--- NOTE | 2024-05-10 22:04 | P.PN ---
Subjective Progress Note Date: 05/10/24 Principal diagnosis: Reason for follow-up is sepsis secondary to severe C. difficile colitis Patient is a 83-year-old male with a past medical history significant for hypertension hyperlipidemia CVA TIA heart failure prostate cancer history of recurrent UTI as well as C. difficile colitis with recent admission to the hospital with sepsis secondary C. difficile colitis patient has been brought into the hospital concerning for weakness and apparently the patient did have a fever around 2 AM with initial concern for possible UTI however the patient has significant diarrhea and no urinary symptoms and stool for significantly positive. On today's evaluation that is 05/10/2024, the patient continues to be afebrile, the patient is on room air and breathing comfortably, the Pt denies having any chest pain or cough, the patient denies having any abdominal pain no vomiting and the patient diarrhea has slowed on mention the stool is slightly forming up. Patient INR is 1.5 blood culture has been negative Objective - Vital Signs Vital signs: Vital Signs Temp 97.7 F 05/10/24 12:46 Pulse 61 05/10/24 12:52 Resp 16 05/10/24 12:46 BP 118/62 05/10/24 12:52 Pulse Ox 96 05/10/24 12:46 FiO2 Intake & Output 05/09/24 05/10/24 05/10/24 18:59 06:59 18:59 Intake Total 2094 3818 Output Total 476 3 Balance 1618 3815 Intake: Oral 4 3818 Output: Urine 400 Post Void Residual 76 Stool 3 Other: Voiding Method Indwelling Catheter Indwelling Catheter Indwelling Catheter # Voids 1 1 3 # Bowel Movements 1 1 - Exam GENERAL DESCRIPTION: An elderly male lying in bed in no distress RESPIRATORY SYSTEM: Unlabored breathing , decreased breath sounds at bases HEART: S1 S2 regular rate and rhythm , ABDOMEN: Soft , no tenderness EXTREMITIES: No edema feet - Labs CBC & Chem 7: 05/04/24 04:41 05/04/24 04:41 Labs: Abnormal Lab Results - Last 24 Hours (Table) 05/10/24 Range/Units 04:22 PT 15.6 H (10.0-12.5) sec INR 1.5 H (<1.2) Assessment and Plan (1) Sepsis Current Visit: Yes Status: Acute Code(s): A41.9 - SEPSIS, UNSPECIFIED ORGANISM SNOMED Code(s): 81443974 (2) C. difficile colitis Current Visit: No Status: Acute Code(s): A04.72 - ENTEROCOLITIS D/T CLOSTRIDIUM DIFFICILE, NOT SPCF RECUR SNOMED Code(s): 161683252 Plan: 1patient presented to hospital with fever elevated white count hypotension source is likely C. difficile colitis as the patient did have liquidy stools lower abdominal pain and significant elevated white count and recently admitted to the hospital for C. difficile colitis patient did have a positive UA however denies having any burning or frequency of urine clinically doubt urinary source for his sepsis 2-patient is afebrile patient white count has normalized 3-patient diarrhea has slowed down stool is slightly firming up we will continue with Dificid currently waiting for outpatient Dificid arrangement before discharge Dictation was produced using [employer] dictation software. please excuse any grammatical, word or spelling errors. Time with Patient: Less than 30
[2024-05-11 06:07] LABS: INR 1.6 (<1.2); Prothrombin Time 16.2 sec (10.0-12.5)
--- NOTE | 2024-05-11 10:03 | P.PN ---
Subjective Progress Note Date: 05/11/24 The patient is seen today May 11, 2024 in follow-up on the regular medical floor. He is currently sitting up in bed. Having breakfast. Awake and alert in no acute distress. Denies any significant abdominal pain. He is being treated for C. difficile colitis. Remains on Dificid. He is maintaining good O2 saturations in the 90s on room air. He is afebrile. Hemodynamically stable. INR 1.6. Objective - Vital Signs Vital signs: Vital Signs Temp 97.5 F L 05/11/24 07:17 Pulse 61 05/11/24 07:17 Resp 18 05/11/24 07:17 BP 151/68 05/11/24 07:17 Pulse Ox 95 05/11/24 07:17 FiO2 Intake & Output 05/10/24 05/11/24 05/11/24 18:59 06:59 18:59 Intake Total 4172 590 Output Total 4 Balance 4168 590 Intake: Oral 4172 590 Output: Stool 4 Other: Voiding Method Indwelling Catheter Diaper Incontinent # Voids 3 3 # Bowel Movements 3 - Exam GENERAL EXAM: Alert, pleasant 83-year-old male patient, on room air, comfortable in no apparent distress. HEAD: Normocephalic. EYES: Normal reaction of pupils, equal size. NOSE: Clear with pink turbinates. THROAT: No erythema or exudates. NECK: No masses, no JVD. CHEST: No chest wall deformity. LUNGS: Equal air entry with no crackles, wheeze, rhonchi or dullness. CVS: S1 and S2 normal with no audible murmur, regular rhythm. ABDOMEN: No hepatosplenomegaly, normal bowel sounds, no guarding or rigidity. SPINE: No scoliosis or deformity SKIN: No rashes CENTRAL NERVOUS SYSTEM: No focal deficits, tone is normal in all 4 extremities. EXTREMITIES: There is no peripheral edema. No clubbing, no cyanosis. Peripheral pulses are intact. - Labs CBC & Chem 7: 05/04/24 04:41 05/04/24 04:41 Labs: Abnormal Lab Results - Last 24 Hours (Table) 05/11/24 Range/Units 05:21 PT 16.2 H (10.0-12.5) sec INR 1.6 H (<1.2) Assessment and Plan Assessment: C. difficile colitis with ongoing diarrhea, clinically improving. The white cell count is improving. Hemodynamically stable on no pressors. Currently on the medical floor. Still having episodes of diarrhea despite being on oral vancomycin. No nausea vomiting or abdominal pain. Patient is currently on Dificid Recurrent urinary tract infections, currently has a Aguilar catheter in place. Th e patient has history of prostate cancer with previous radiation therapy and TURP Diverticulosis without acute diverticulitis Nonobstructing left renal cortical calculi Acute leukocytosis, improved History of heart failure with reduced ejection fraction Paroxysmal atrial fibrillation anticoagulated with warfarin, current INR 1.6 Permanent pacemaker History of hypertension History of hyperlipidemia History of renal stones with previous lithotripsy Obesity, with a BMI of 38.7 kg/m Plan: The patient was seen and evaluated Labs and medications were reviewed Currently stable and on room air Continue albuterol HFA as needed Plan is for home with home care at discharge This patient was seen independently by the pulmonary nurse practitioner addressing pulmonary issues I have personally seen and examined the patient, performed the documentation and the assessment and plan as written. Number of minutes spent on the visit: 24 Dictation was produced using [employer] dictation software. Please excuse any grammatical, word or spelling errors.
[2024-05-11] MEDS: WARFARIN 2 MG TAB PO ONE (17:40)
--- NOTE | 2024-05-11 21:25 | P.PN ---
Subjective Progress Note Date: 05/11/24 Principal diagnosis: Reason for follow-up is sepsis secondary to severe C. difficile colitis Patient is a 83-year-old male with a past medical history significant for hypertension hyperlipidemia CVA TIA heart failure prostate cancer history of recurrent UTI as well as C. difficile colitis with recent admission to the hospital with sepsis secondary C. difficile colitis patient has been brought into the hospital concerning for weakness and apparently the patient did have a fever around 2 AM with initial concern for possible UTI however the patient has significant diarrhea and no urinary symptoms and stool for significantly positive. On today's evaluation that is 05/11/2024, Patient is afebrile patient is currently on room air and denies having any shortness of breath, the patient denies any chest pain or cough, the patient denies any nausea vomiting did not h ave any abdominal pain and diarrhea has slowed down and is slightly forming up. Patient did have INR of 1.6 no CBC was done today Objective - Vital Signs Vital signs: Vital Signs Temp 97.5 F L 05/11/24 12:11 Pulse 61 05/11/24 12:11 Resp 16 05/11/24 12:11 BP 137/57 05/11/24 12:11 Pulse Ox 98 05/11/24 12:11 FiO2 Intake & Output 05/10/24 05/11/24 05/11/24 18:59 06:59 18:59 Intake Total 4172 590 Output Total 4 Balance 4168 590 Intake: Oral 4172 590 Output: Stool 4 Other: Voiding Method Indwelling Catheter Diaper Diaper Incontinent Incontinent # Voids 3 3 1 # Bowel Movements 3 - Exam Elderly male up in the chair in no distress No tachypnea or accessory muscle respiration use Unlabored breathing Abdomen soft no tenderness - Labs CBC & Chem 7: 05/04/24 04:41 05/04/24 04:41 Labs: Abnormal Lab Results - Last 24 Hours (Table) 05/11/24 Range/Units 05:21 PT 16.2 H (10.0-12.5) sec INR 1.6 H (<1.2) Assessment and Plan (1) Sepsis Current Visit: Yes Status: Acute Code(s): A41.9 - SEPSIS, UNSPECIFIED ORGANISM SNOMED Code(s): 88378913 (2) C. difficile colitis Current Visit: No Status: Acute Code(s): A04.72 - ENTEROCOLITIS D/T CLOSTRIDIUM DIFFICILE, NOT SPCF RECUR SNOMED Code(s): 268416711 Plan: 1patient presented to hospital with fever elevated white count hypotension source is likely C. difficile colitis as the patient did have liquidy stools lower abdominal pain and significant elevated white count and recently admitted to the hospital for C. difficile colitis patient did have a positive UA however denies having any burning or frequency of urine clinically doubt urinary source for his sepsis 2-patient is afebrile patient white count has normalized 3-patient diarrhea frequency has decreased stools are forming up patient to continue with Dificid, the patient is currently waiting for outpatient Dificid arrangement, question concern answered Dictation was produced using [employer] dictation software. please excuse any grammatical, word or spelling errors. Time with Patient: Less than 30
[2024-05-12 05:23] LABS: INR 1.7 (<1.2)
--- NOTE | 2024-05-12 05:34 | P.PN ---
Subjective Progress Note Date: 05/11/24 This is a pleasant 83-year-old male who resides at home has 11/02 home care that was started by his primary care provider Dr. Munoz. Patient presents with leukocytosis with sepsis initially with concerns of urosepsis with urinary tract infection. Patient was treated for C. difficile colitis on previous admission and sent home on oral antibiotics. Patient is positive for C. difficile still and continues with multiple loose stools with 5 overnight and 2 thus far today. Patient does have a fecal management system and is maintained on oral Vanco at 500 every 6 with ID following. Patient continues on pressor support and weaning slowly as tolerated. Will follow-up on repeat labs and monitor kidney functions closely. 05/02 Patient awake and alert, feels generally weak He knows he is in [facility] and his room number and he is oriented to time and person He has mild suprapubic tenderness Aguilar catheter was placed here in the emergency room as per patient He is currently getting normal saline 75 ml/h also he is on Levophed at 0.07 05/03 Patient has some mild abdominal cramps, he is not in distress He had 4-5 loose bowel movement overnight of small to moderate amount, he has to be changed by staff He is currently kept on no Ringer lactate 75 ml/h and oral vancomycin 05/04 Patient improving clinically with less diarrhea, no significant abdominal pain and he has good appetite He remains on oral vancomycin No other new complaints Physical therapy evaluation is requested 05/05 Patient is transferred to the ICU to the general medical floor He is doing overall well today. No abdominal pain He still complaining from frequent bowel movement but he could not tell how many yesterday or this morning Patient remains on oral vancomycin Lower dose of midodrine to 5 mg, start leaving the hospital Patient also on IV fluid. INR today 3.7, patient did not receive warfarin yesterday 05/06 Patient today looks little more tired than the last few days He had 3 bowel movement in the morning which was diarrhea and made a mess in his bed and he was frustrated No abdominal pain though. Tolerates diet. No chest pain or dyspnea 05/07 Patient awake alert, looks comfortable not in distress No abdominal pain. He tolerates diet 75 to 100% most of the times He does not need IV fluid hydration to support his system as he is having frequent bowel movement but small amount over several days and has been stable. Patient and daughter at bedside confirmed that the small amount. His pain evaluation is 0/10, no pain anywhere He is afebrile, hemodynamically stable, not tachycardic. No leukocytosis which is improved significantly from 30-30 6.5K down to reference range at 9.3 on 05/04 INR is at therapeutic range Dificid is added by ID team from yesterday for a total of 20 doses. case managers on the case Patient looks medically stable today however he needs 24-hour notice there is a mcc. Possible discharge in 24 hours. Patient and daughter agree to go home but they want to wait till tomorrow because he has no arrangement and his mcc require 24-hour notice. Also casework manager working and providing Dificid available for him upon discharge. 05/08 Patient clinically stable, he still has diarrhea but he is not dehydrated, no abdominal pain and he tolerates diet. Furthermore he states that his stool is becoming more solid like lipase compared to previous which he thinks is improving. Patient does not need IV fluids over several days now. Patient medically stable for discharge however pending prior authorization and approval for his Dificid course of antibiotic for his C. difficile colitis He remains on Coumadin and INR today is 2.0. 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 No need for IV fluid. Pain controlled. He tolerates diet He is medically stable for discharge pending authorization for his Dificid for his C. difficile colitis treatment upon discharge His INR today is 1.7, will increase his Coumadin 2.5 yesterday up to 4.0 mg today Patient's wants the Aguilar catheter to be discontinued. We added Flomax and will keep checking bladder scan 05/10 still with diarrhea but not conspicuous His INR today is still down to 1.5 he got 4 mg last night and we will going to increase it to 6 mg tonight We checked his bladder current and there is no urine retention is about 100-150. Patient keeps of Aguilar catheter Pending authorization for his Dificid for C. difficile colitis upon discharge other than that he is medically stable 05/11/2024 Patient is seen and evaluated in follow-up continues to have diarrhea although slightly more formed and less frequent. Case management following a Dificid authorization has been approved for outpatient use and patient will be going home on this regimen per infectious disease. Patient continues with 11/02 home care and will continue on discharge. Patient is afebrile with no reports of chest pain or shortness of breath. Patient has been tolerating diet denies any nausea or vomiting. Review of systems: Constitutional: No reports of fatigue, fever, or chills Cardiovascular: No reports of chest pain or palpitations Respiratory: No reports of shortness of breath or cough GI: No reports of nausea, no reports of vomiting, reports of loose stools have becoming slightly more formed : No reports of dysuria or retention Neurovascular: reports of generalized weakness All medications have been reviewed PHYSICAL EXAMINATION: GENERAL: The patient is alert and oriented x4, Well developed, elderly appearing, ill-appearing, obese HEENT: Pupils are round and equally reacting to light. EOMI. no scleral icterus. No conjunctival pallor. Normocephalic, atraumatic. No pharyngeal erythema. No thyromegaly. CARDIOVASCULAR: S1 and S2 muffled PULMONARY: diminished breath sounds bilaterally with no wheezing or rhonchi noted. ABDOMEN: soft. Nontender on exam. obese. non-distended, normoactive bowel sounds. No palpable organomegaly. MUSCULOSKELETAL: No joint swelling or deformity. EXTREMITIES: No cyanosis, clubbing, or pedal edema. NEUROLOGICAL: Gross neurological examination did not reveal any focal deficits. Diffuse weakness SKIN: No rashes. Assessment: Acute C. difficile colitis with failure of outpatient treatment, awaiting approval for Dificid acute urinary tract infection with sepsis, present on admission, per ID source less likely Sepsis, present on admission, likely secondary to C. difficile colitis with failure of outpatient treatment with end-organ damage with hypotension and septic shock Hypotension, possible septic shock with severe sepsis,. Initially requiring ICU management and pressor support. Leukocytosis secondary to above, improving Troponin 0.038, ruled out myocardial infarction History of atrial fibrillation, currently rate controlled. Continues on warfarin at home History of CVA History of hypertension Hyperlipidemia history Obesity with a BMI of 37.6 GI prophylaxis DVT prophylaxis Full code Plan: Patient currently remains on Dificid and per case management has received approval through the insurance and can be delivered to the home on 05/12/2024. Infectious disease following and patient will continue a 10-day course on discharge Atenolol and Lasix are on hold Patient INR was 2.1 on 04/30, we will going to resume warfarin pharmacy to dose for his A-fib Due to multiple complex medical issues, overall prognosis is guarded Plan will be for discharge home tomorrow. Per daughter they require 24-hour notice to let the staff know when patient will return home. Family notified and plan is for discharge on 05/12/2024. The impression and plan of care has been dictated by Eve Alexander, nurse practitioner as directed. Dr. Phil MD I have performed a history and examination and MDM of this patient, discussed the same with the dictator, and agree with the dictator's assessment and plan as written ,documented as a scribe. Based on total visit time, I have performed more than 50% of the visit. Any additional findings or plans will be noted. Objective - Vital Signs Vital signs: Vital Signs Temp 97.5 F L 05/11/24 07:17 Pulse 61 05/11/24 07:17 Resp 18 05/11/24 07:17 BP 151/68 05/11/24 07:17 Pulse Ox 95 05/11/24 07:17 FiO2 Intake & Output 05/10/24 05/11/24 05/11/24 18:59 06:59 18:59 Intake Total 4172 590 Output Total 4 Balance 4168 590 Intake: Oral 4172 590 Output: Stool 4 Other: Voiding Method Indwelling Catheter Diaper Diaper Incontinent Incontinent # Voids 3 3 # Bowel Movements 3 - Labs CBC & Chem 7: 05/04/24 04:41 05/04/24 04:41 Labs: Abnormal Lab Results - Last 24 Hours (Table) 05/11/24 Range/Units 05:21 PT 16.2 H (10.0-12.5) sec INR 1.6 H (<1.2)
[2024-05-12 07:50] VITALS: RESP 16
--- NOTE | 2024-05-12 12:46 | P.PN ---
Subjective Progress Note Date: 05/12/24 The patient is seen today May 11, 2024 in follow-up on the regular medical floor. He is currently sitting up in bed. Having breakfast. Awake and alert in no acute distress. Denies any significant abdominal pain. He is being treated for C. difficile colitis. Remains on Dificid. He is maintaining good O2 saturations in the 90s on room air. He is afebrile. Hemodynamically stable. INR 1.6. The patient is seen today May 12, 2024 in follow-up on the regular medical floor. He is awake and alert in no acute distress. Sitting up having breakfast. No worsening shortness of breath, cough or congestion. Maintaining O2 saturations in the 90s on room air. He denies any further issues with diarrhea. He remains on Dificid for his C. difficile colitis. He remains on Questran, lactobacillus acidiphilus. INR 1.7. He is anticoagulated with warfarin. Objective - Vital Signs Vital signs: Vital Signs Temp 98.1 F 05/12/24 07:32 Pulse 62 05/12/24 07:32 Resp 16 05/12/24 07:32 BP 151/67 05/12/24 07:32 Pulse Ox 96 05/12/24 07:32 FiO2 Intake & Output 05/11/24 05/12/24 05/12/24 18:59 06:59 18:59 Intake Total 600 Output Total 4 Balance 596 Intake: Oral 600 Output: Stool 4 Other: Voiding Method Diaper Diaper Diaper Incontinent Incontinent Incontinent # Voids 1 2 1 # Bowel Movements 1 1 1 - Exam GENERAL EXAM: Alert, 83-year-old male patient, on room air, in no apparent distress. HEAD: Normocephalic. EYES: Normal reaction of pupils, equal size. NOSE: Clear with pink turbinates. THROAT: No erythema or exudates. NECK: No masses, no JVD. CHEST: No chest wall deformity. LUNGS: Equal air entry with no crackles, wheeze, rhonchi or dullness. CVS: S1 and S2 normal with no audible murmur, regular rhythm. ABDOMEN: No hepatosplenomegaly, normal bowel sounds, no guarding or rigidity. SPINE: No scoliosis or deformity SKIN: No rashes CENTRAL NERVOUS SYSTEM: No focal deficits, tone is normal in all 4 extremities. EXTREMITIES: There is no peripheral edema. No clubbing, no cyanosis. Peripheral pulses are intact. - Labs CBC & Chem 7: 05/04/24 04:41 05/04/24 04:41 Labs: Abnormal Lab Results - Last 24 Hours (Table) 05/12/24 Range/Units 04:11 PT 17.0 H (10.0-12.5) sec INR 1.7 H (<1.2) Assessment and Plan Assessment: C. difficile colitis with ongoing diarrhea, clinically improving. The white cell count is improved. No nausea vomiting or abdominal pain. No current diarrhea. Patient remains on Dificid Recurrent urinary tract infections, currently has a Aguilar catheter in place. The patient has history of prostate cancer with previous radiation therapy and T URP Diverticulosis without acute diverticulitis Nonobstructing left renal cortical calculi Acute leukocytosis, improved History of heart failure with reduced ejection fraction Paroxysmal atrial fibrillation anticoagulated with warfarin, current INR 1.6 Permanent pacemaker History of hypertension History of hyperlipidemia History of renal stones with previous lithotripsy Obesity, with a BMI of 38.7 kg/m Plan: The patient was seen and evaluated Labs and medications were reviewed Currently stable and on room air Dificid to be delivered to the patient's house today Plan is for home with home care This patient was seen independently by the pulmonary nurse practitioner addressing pulmonary/critical care issues I have personally seen and examined the patient, performed the documentation and the assessment and plan as written. Number of minutes spent on the visit: 23 Dictation was produced using [email or web address] dictation software. Please excuse any grammatical, word or spelling errors.
[2024-05-12 13:20] VITALS: BP 163/68; PULSE 60; TEMP 98.2
--- NOTE | 2024-05-12 15:24 | P.PN ---
Subjective Progress Note Date: 05/12/24 Principal diagnosis: Reason for follow-up is sepsis secondary to severe C. difficile colitis Patient is a 83-year-old male with a past medical history significant for hypertension hyperlipidemia CVA TIA heart failure prostate cancer history of recurrent UTI as well as C. difficile colitis with recent admission to the hospital with sepsis secondary C. difficile colitis patient has been brought into the hospital concerning for weakness and apparently the patient did have a fever around 2 AM with initial concern for possible UTI however the patient has significant diarrhea and no urinary symptoms and stool for significantly positive. On today's evaluation that is 05/12/2024, patient has been afebrile, patient is breathing comfortably and is currently on room air, patient denies having any significant cough no chest pain, patient denies nausea vomiting, did have a resolution of his diarrhea having a soft bowel movement and no abdominal pain. Patient did have INR of 1.7 Objective - Vital Signs Vital signs: Vital Signs Temp 98.2 F 05/12/24 12:45 Pulse 60 05/12/24 12:45 Resp 16 05/12/24 12:45 BP 163/68 05/12/24 12:45 Pulse Ox 97 05/12/24 12:45 FiO2 Intake & Output 05/11/24 05/12/24 05/12/24 18:59 06:59 18:59 Intake Total 1316 Output Total 4 Balance 1312 Intake: Oral 1316 Output: Stool 4 Other: Voiding Method Diaper Diaper Diaper Incontinent Incontinent Incontinent # Voids 1 2 1 # Bowel Movements 1 1 1 - Exam Elderly male up in the chair in no distress No tachypnea or accessory muscle respiration use Unlabored breathing Abdomen soft no tenderness - Labs CBC & Chem 7: 05/04/24 04:41 05/04/24 04:41 Labs: Abnormal Lab Results - Last 24 Hours (Table) 05/12/24 Range/Units 04:11 PT 17.0 H (10.0-12.5) sec INR 1.7 H (<1.2) Assessment and Plan (1) Sepsis Status: Acute Code(s): A41.9 - SEPSIS, UNSPECIFIED ORGANISM SNOMED Code(s): 01062838 (2) C. difficile colitis Status: Acute Code(s): A04.72 - ENTEROCOLITIS D/T CLOSTRIDIUM DIFFICILE, NOT SPCF RECUR SNOMED Code(s): 259714016 Plan: 1patient presented to hospital with fever elevated white count hypotension source is likely C. difficile colitis as the patient did have liquidy stools lower abdominal pain and significant elevated white count and recently admitted to the hospital for C. difficile colitis patient did have a positive UA however denies having any burning or frequency of urine clinically doubt urinary source for his sepsis 2-patient is afebrile patient white count has normalized, he will for therapy with oral Dificid also advised to follow-up with the GI at [facility] for consideration of stool transplant to prevent recurrent episodes of C. difficile colitis Dictation was produced using [employer] dictation software. please excuse any grammatical, word or spelling errors. Time with Patient: Less than 30
[2024-05-12] MEDS ORDERED: WARFARIN 2 MG TAB PO ONE (18:00)
--- NOTE | 2024-05-18 09:17 | P.DS ---
Providers Date of admission: 04/30/24 13:51 Expected date of discharge: 05/12/24 Attending physician: Carina Knott Consults: 04/30/24 13:48 Consult Physician Urgent Consulting Provider: Aj Castillo Consult Reason/Comments: uti with severe sepsis, esbl Do you want consulting provider notified?: Yes 04/30/24 13:49 Consult Physician Stat Consulting Provider: Steve Peraza Consult Reason/Comments: uti with sepsis Do you want consulting provider notified?: Already Contacted Primary care physician: Celina Munoz Hospital Course: Final diagnosis Acute C. difficile colitis with failure of outpatient treatment, requiring insurance authorization for approval for Dificid acute urinary tract infection, present on admission, per ID source less likely of sepsis, more likely due to acute C. difficile with failure of outpatient treatment Sepsis, present on admission, likely secondary to C. difficile colitis with failure of outpatient treatment with end-organ damage with hypotension and septic shock Hypotension, possible septic shock with severe sepsis,. Initially requiring ICU management and pressor support. Improved Leukocytosis secondary to above, improving Troponin 0.038, ruled out myocardial infarction History of atrial fibrillation, currently rate controlled. Continues on warfarin at home History of CVA History of hypertension Hyperlipidemia history Obesity with a BMI of 37.6 GI prophylaxis DVT prophylaxis Full code Discharge disposition Patient is being discharged in a stable condition with guarded prognosis to home with 11/02 home care. Patient will follow-up with Dr. Munoz in the outpatient setting upon discharge. Patient is to continue with Dificid and outpatient follow-up with infectious disease as scheduled. Total time taken is greater deann n 35 minutes. Hospital course This is a 83-year-old male who was recently admitted with concerns of sepsis initially thought to be recurrent UTI although less likely more likely due to acute C. difficile colitis with failure of outpatient treatment. Patient was sent home with C. difficile on Vanco oral although persisted to have diarrhea. Patient presented to the hospital initially requiring ICU for hypotension secondary to sepsis and likely from C. difficile colitis with failure of outpatient treatment. Multiple consultations following including case management who arranged for insurance authorization and approval of Dificid. Patient will continue and have outpatient follow-up with primary care provider as well as infectious disease. Please refer to other consultation notes for further HPI. Currently no reports of chest pain, shortness of breath, or palpitations. Patient is afebrile. No reports of nausea or vomiting and patient is tolerating diet. Patient will be discharged home today. Guarded prognosis and high risk for readmissions as patient has significant comorbidities. Physical exam: Gen: This is a 83-year-old male who is awake, alert and oriented x 3, well-dev eloped, elderly appearing, ill-appearing, obese HEENT: Head is atraumatic, normocephalic. Pupils equal, round. Sclerae is anicteric. NECK: Supple. No JVD. No lymphadenopathy. No thyromegaly. LUNGS: Diminished breath sounds bilaterally otherwise clear to auscultation. No wheezes or rhonchi. No intercostal retractions. HEART: S1, S2 are muffled ABDOMEN: Soft. Obese bowel sounds are present. No masses. No tenderness. EXTREMITIES: No pedal edema. No calf tenderness. Chronic lower extremity debility with 1/5 strength bilaterally lower extremities NEUROLOGICAL: Patient is awake, alert and oriented x3. Cranial nerves 2 through 12 are grossly intact. Diffusely weak Please refer to medication reconciliation sheet for a list of medications. The impression and plan of care has been dictated by Eve Alexander, Nurse Practitioner as directed. Dr. Phil MD I have performed a history and examination and MDM of this patient, discussed the same with the dictator, and agree with the dictator's assessment and plan as written ,documented as a scribe. Based on total visit time, I have performed more than 50% of the visit. Patient Condition at Discharge: Fair Plan - Discharge Summary New Discharge Prescriptions: New Fidaxomicin [Dificid] 200 mg PO Q12HR #20 tab Tamsulosin [Flomax] 0.4 mg PO PC-SUPPER #30 cap Midodrine [ProAmatine] 5 mg PO AC-TID #90 tab Pantoprazole [Protonix] 40 mg PO DAILY #30 tab Cholestyramine (with Sugar) [Questran Packet] 4 gm PO BID #60 packet Sodium Bicarbonate Tab 650 mg PO BID #60 tab Continue Albuterol Inhaler [Ventolin Hfa Inhaler] 2 puff INHALATION RT-Q6H PRN each PRN Reason: Shortness Of Breath Or Wheezing Warfarin [Coumadin] 5 mg PO MOWEFRSA@2100 Warfarin [Coumadin] 2.5 mg PO SUTUTH@2100 Acetaminophen [Tylenol] 1,000 mg PO Q6H PRN PRN Reason: Pain Ramelteon 8 mg PO HS Potassium Chloride ER [K-Dur 10] 10 meq PO DAILY Nystatin 100,000 Unit/gm Powd [Mycostatin Powder] 1 applic TOPICAL BID PRN PRN Reason: Skin Irritation Discontinued atenoloL 25 mg PO BID Furosemide [Lasix] 40 mg PO DAILY Cholestyramine (with Sugar) [Questran Packet] 4 gm PO BID PRN PRN Reason: Constipation Discharge Medication List Acetaminophen [Tylenol] 1,000 mg PO Q6H PRN 05/30/21 [History] Albuterol Inhaler [Ventolin Hfa Inhaler] 2 puff INHALATION RT-Q6H PRN each 12/27/23 [Rx] Ramelteon 8 mg PO HS 01/10/24 [History] Potassium Chloride ER [K-Dur 10] 10 meq PO DAILY 03/18/24 [History] Nystatin 100,000 Unit/gm Powd [Mycostatin Powder] 1 applic TOPICAL BID PRN 04/30/24 [History] Warfarin [Coumadin] 2.5 mg PO SUTUTH@209904/30/24 [History] Warfarin [Coumadin] 5 mg PO MOWEFRSA@209904/30/24 [History] Fidaxomicin [Dificid] 200 mg PO Q12HR #20 tab 05/06/24 [Rx] Cholestyramine (with Sugar) [Questran Packet] 4 gm PO BID #60 packet 05/12/24 [Rx] Midodrine [ProAmatine] 5 mg PO AC-TID #90 tab 05/12/24 [Rx] Pantoprazole [Protonix] 40 mg PO DAILY #30 tab 05/12/24 [Rx] Sodium Bicarbonate Tab 650 mg PO BID #60 tab 05/12/24 [Rx] Tamsulosin [Flomax] 0.4 mg PO PC-SUPPER #30 cap 05/12/24 [Rx] Follow up Appointment(s)/Referral(s): Residential Home,Health [NON-STAFF] - 1 Week Celina Munoz MD [Primary Care Provider] - 1-2 days (please call office and schedule appointment- office is closed) Patient Instructions/Handouts: Fidaxomicin (By mouth), Aguilar Catheter Placement and Care (DC), Sepsis (DC), C. Diff (Clostridioides Difficile) Infection (DC) Activity/Diet/Wound Care/Special Instructions: Activity limited until follow-up Follow-up with primary care provider on discharge Continue on Dificid for 10 days per ID recommendations Continue with Questran twice daily hold if having more formed stools Discharge Disposition: HOME WITH HOME HEALTH SERVICES
== END 2024-05-12 14:45 | disposition home health service (06) | DRG 871 ==
LOC: EC 09:47 → 2SICU 13:51 → 5NMEDONC 05-04 15:55
PROVIDERS: ADMIT Hospitalist; ATTEND Hospitalist
PROC: 02HV33Z Insertion of Infusion Device into Superior Vena Cava, Percutaneous Approach (ICD-10-PCS; principal; 2024-04-30)
PROC: 3E043XZ Introduction of Vasopressor into Central Vein, Percutaneous Approach (ICD-10-PCS; 2024-04-30)
DX: A41.4 Sepsis due to anaerobes (principal); R65.21 Severe sepsis with septic shock; I50.22 Chronic systolic (congestive) heart failure; E87.20 Acidosis, unspecified; A04.72 Enterocolitis due to Clostridium difficile, not specified as recurrent; N39.0 Urinary tract infection, site not specified; Z16.12 Extended spectrum beta lactamase (ESBL) resistance; I11.0 Hypertensive heart disease with heart failure; I48.0 Paroxysmal atrial fibrillation; Z68.38 Body mass index [BMI] 38.0-38.9, adult; E66.9 Obesity, unspecified; D72.823 Leukemoid reaction; E78.5 Hyperlipidemia, unspecified; K21.9 Gastro-esophageal reflux disease without esophagitis; K57.90 Diverticulosis of intestine, part unspecified, without perforation or abscess without bleeding; N20.0 Calculus of kidney; N40.0 Benign prostatic hyperplasia without lower urinary tract symptoms; Z79.01 Long term (current) use of anticoagulants; Z87.440 Personal history of urinary (tract) infections; Z87.891 Personal history of nicotine dependence; Z92.3 Personal history of irradiation; Z95.0 Presence of cardiac pacemaker; Z86.73 Personal history of transient ischemic attack (TIA), and cerebral infarction without residual deficits; Z86.19 Personal history of other infectious and parasitic diseases; Z85.46 Personal history of malignant neoplasm of prostate; Z87.442 Personal history of urinary calculi; Z79.899 Other long term (current) drug therapy
CPT/HCPCS: 36415; 71046; 80048; 80053; 81001; 82533; 83605; 83735; 83880; 84132; 84443; 84484; 85025; 85610; 85730; 87040; 87324; 87636; 93005; 94640; 96361; 96365; 96367; 96372; 99291

== ENCOUNTER 2024-05-29 10:59 | Inpatient (IN) | payer MEDICARE, BC ==
--- NOTE | 2024-05-29 11:39 | ED ---
Nausea/Vomiting/Diarrhea HPI - General Source: patient, family, RN notes reviewed Mode of arrival: EMS Limitations: no limitations <Judy Torres - Last Filed: 05/29/24 11:38> - General Source: patient, family, EMS, RN notes reviewed Mode of arrival: EMS Limitations: no limitations <Pietro Urena - Last Filed: 05/29/24 15:52> - General Chief complaint: Nausea/Vomiting/Diarrhea Stated complaint: UTI/cdiff Time Seen by Provider: 05/29/24 11:15 - History of Present Illness Initial comments: Quick [id number] male presenting to the emergency department chief complaint of consistent diarrhea, fevers and nausea. Patient was recently mated to the hospital and follow-up with infectious disease for C. difficile and was on prescribed medication. Patient was alerted by infectious disease, Dr. Castillo to report back to the emergency department for medication ministration. Patient is that has been feeling weak. Denies hematochezia and melena. (Judy Torres) 83 year old male presents to the emergency department for chief complaint of diarrhea, fever, and nausea. He is currently being treated for C. Difficile with Dificid. Since stopping the medication three days ago, he has developed the afore mentioned symptoms. His history is significant for chronic UTIs and kidney stones being prescribed multiple antibiotics and was recently hospitalized for C. Difficile infection and sepsis. In addition to diarrhea, he reports weakness, malaise, and myalgias. He denies shortness of breath, chest pain, palpitations, and leg swelling. He denies other complaints. (Pietro Urena) - Related Data Home Medications Medication Instructions Recorded Confirmed Acetaminophen [Tylenol] 1,000 mg PO Q6H PRN 05/30/21 04/30/24 Ramelteon 8 mg PO HS 01/10/24 04/30/24 Potassium Chloride ER [K-Dur 10] 10 meq PO DAILY 03/18/24 04/30/24 Nystatin 100,000 Unit/gm Powd 1 applic TOPICAL BID PRN 04/30/24 04/30/24 [Mycostatin Powder] Warfarin [Coumadin] 2.5 mg PO SUTUTH@209904/30/24 04/30/24 Warfarin [Coumadin] 5 mg PO MOWEFRSA@209904/30/24 04/30/24 Previous Rx's Medication Instructions Recorded Albuterol Inhaler [Ventolin Hfa 2 puff INHALATION RT-Q6H PRN each 12/27/23 Inhaler] Fidaxomicin [Dificid] 200 mg PO Q12HR #20 tab 05/06/24 Cholestyramine (with Sugar) 4 gm PO BID #60 packet 05/12/24 [Questran Packet] Midodrine [ProAmatine] 5 mg PO AC-TID #90 tab 05/12/24 Pantoprazole [Protonix] 40 mg PO DAILY #30 tab 05/12/24 Sodium Bicarbonate Tab 650 mg PO BID #60 tab 05/12/24 Tamsulosin [Flomax] 0.4 mg PO PC-SUPPER #30 cap 05/12/24 Allergies Allergy/AdvReac Type Severity Reaction Status Date / Time No Known Allergies Allergy Verified 05/29/24 11:03 Review of Systems ROS Other: All systems not noted in ROS Statement are negative. <Judy Torres - Last Filed: 05/29/24 11:38> ROS Other: All systems not noted in ROS Statement are negative. <Pietro Urena - Last Filed: 05/29/24 15:52> ROS Statement: Those systems with pertinent positive or pertinent negative responses have been documented in the HPI. Past Medical History Past Medical History: Atrial Fibrillation, Cancer, Heart Failure, CVA/TIA, GERD/Reflux, Hyperlipidemia, Hypertension, Prostate Disorder Additional Past Medical History / Comment(s): 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 dry skin on arms, numbness in last 2 fingers to left hand, kidney stone. History of Any Multi-Drug Resistant Organisms: C-DIFF, CRE Date of last positivie culture/infection: 01/11/24, February 2024 for Cdiff MDRO Source:: Urine-CRE, Stool Past Surgical History: Cholecystectomy, Hernia Repair, Orthopedic Surgery, Pacemaker Additional Past Surgical History / Comment(s): cervical fusion, lithrotripsy, Past Anesthesia/Blood Transfusion Reactions: No Reported Reaction Additional Past Anesthesia/Blood Transfusion Reaction / Comment(s): Pt has never recieved blood. Type of Cardiac Device: Permanent Pacemaker Device Placement Date:: 2013 Past Psychological History: No Psychological Hx Reported Smoking Status: Former smoker Past Alcohol Use History: None Reported Past Drug Use History: None Reported - Past Family History Father Family Medical History: Diabetes Mellitus Mother Family Medical History: Osteoarthritis (OA) Additional Family Medical History / Comment(s): arthritis <Judy Torres - Last Filed: 05/29/24 11:38> General Exam Limitations: no limitations <Judy Torres - Last Filed: 05/29/24 11:38> Limitations: physical limitation General appearance: alert, in no apparent distress, lethargic Head exam: Present: atraumatic, normocephalic, normal inspection Eye exam: Present: normal appearance, PERRL, EOMI. Absent: scleral icterus, conjunctival injection, periorbital swelling ENT exam: Present: normal exam, mucous membranes moist Neck exam: Present: normal inspection. Absent: tenderness, meningismus, lymphadenopathy Respiratory exam: Present: normal lung sounds bilaterally. Absent: respiratory distress, wheezes, rales, rhonchi, stridor Cardiovascular Exam: Present: regular rate, normal rhythm, normal heart sounds. Absent: systolic murmur, diastolic murmur, rubs, gallop, clicks GI/Abdominal exam: Present: soft, normal bowel sounds. Absent: distended, tenderness, guarding, rebound, rigid Extremities exam: Present: normal inspection, full ROM, normal capillary refill. Absent: tenderness, pedal edema, joint swelling, calf tenderness Back exam: Present: normal inspection Neurological exam: Present: alert, oriented X3, CN II-XII intact Psychiatric exam: Present: normal affect, normal mood Skin exam: Present: warm, dry, intact, pallor. Absent: rash <Pietro Urena - Last Filed: 05/29/24 15:52> - General Exam Comments Initial Comments: Visual Physical Exam Vital signs reviewed General: Well-appearing, nontoxic, no acute distress. Head: Normocephalic, atraumatic Eyes: PERRLA, EOMI ENT: Airway patent Chest: Nonlabored breathing Skin: No visual rash, normal skin tone Neuro: Alert and oriented 3 Musculoskeletal: No gross abnormalities (Stieler,Judy) Course Vital Signs 11/08/24 11/08/24 11/08/24 11:00 14:47 14:56 Temperature 98.4 F Pulse Rate 77 60 Respiratory 16 18 Rate Blood Pressure 106/53 108/44 O2 Sat by Pulse 95 93 L Oximetry Medical Decision Making <Judy Torres - Last Filed: 05/29/24 11:38> - Lab Data Result diagrams: 05/29/24 12:00 05/29/24 12:00 <Pietro Urena - Last Filed: 05/29/24 15:52> - Medical Decision Making I completed the quick note portion of this chart signed Judy Torres PA-C (Judy Torres) Was pt. sent in by a medical professional or institution ([facility], [employer], urgent care, hospital, or alf...) When possible be specific @ -No Did you speak to anyone other than the patient for history (EMS, parent, family, police, friend...)? What history was obtained from this source @ -No Did you review nursing and triage notes (agree or disagree)? Why? @ -I reviewed and agree with nursing and triage notes Were old charts reviewed (outside hosp., previous admission, EMS record, old EKG, old radiological studies, urgent care reports/EKG's, alf records)? Report findings @ -Recent urine culture, C. difficile, ID Differential Diagnosis (chest pain, altered mental status, abdominal pain women, abdominal pain men, vaginal bleeding, weakness, fever, dyspnea, syncope, hea dache, dizziness, GI bleed, back pain, seizure, CVA, palpatations, mental health, musculoskeletal)? @ -Differential Abdominal Pain Men: Appendicitis, cholecystitis, diverticulosis, ischemic bowel, pancreatitis, hepatitis, UTI, gastroenteritis, AAA, incarcerated hernia, bowel obstruction, constipation, inflammatory bowel, hepatitis, peptic ulcer disease, splenic infarction, perforated viscus, testicular torsion, this is not meant to be an all-inclusive list EKG interpreted by me (3pts min.). @ -As above X-rays interpreted by me (1pt min.). @ -None done CT interpreted by me (1pt min.). @ -None done U/S interpreted by me (1pt. min.). @ -None done What testing was considered but not performed or refused? (CT, X-rays, U/S, labs)? Why? @ -None What meds were considered but not given or refused? Why? @ -None Did you discuss the management of the patient with other professionals (professionals i.e. , PA, F[employer]ELANCE DISPLAYER, lab, RT, psych nurse, transition social worker, site project manager, teacher, senior major gifts officer, dependency case manager)? Give summary @ -[EMH for admission Was smoking cessation discussed for >3mins.? @ -No Was critical care preformed (if so, how long)? @ -No Were there social determinants of health that impacted care today? How? (Homelessness, low income, unemployed, alcoholism, drug addiction, transportation, low edu. Level, literacy, decrease access to med. care, care home, rehab)? @ -No Was there de-escalation of care discussed even if they declined (Discuss DNR or withdrawal of care, Hospice)? DNR status @ -No What co-morbidities impacted this encounter? (DM, HTN, Smoking, COPD, CAD, Cancer, CVA, ARF, Chemo, Hep., AIDS, mental health diagnosis, sleep apnea, morbid obesity)? @ -C. difficile Was patient admitted / discharged? Hospital course, mention meds given and route, prescriptions, significant lab abnormalities, going to OR and other pertinent info. @ -Admitted patient has significant leukocytosis, lactic acidosis. Patient acutely dehydrated, C. difficile patient has a pending urinalysis. Patient will be admitted for further hydration, ID consult Undiagnosed new problem with uncertain prognosis? @ -No Drug Therapy requiring intensive monitoring for toxicity (Heparin, Nitro, Insulin, Cardizem)? @ -No Were any procedures done? @ -No Diagnosis/symptom? @ -Dehydration, C. difficile, acute kidney injury Acute, or Chronic, or Acute on Chronic? @ -Acute Uncomplicated (without systemic symptoms) or Complicated (systemic symptoms)? @ -Complicated Side effects of treatment? @ -No Exacerbation, Progression, or Severe Exacerbation? @ -No Poses a threat to life or bodily function? How? (Chest pain, [place], [place], pneumonia, PE, COPD, DKA, ARF, appy, cholecystitis, CVA, Diverticulitis, Homicidal, Suici dayna, threat to staff... and all critical care pts) @ -No (Pietro Urena) - Lab Data Lab Results 05/29/24 05/29/24 05/29/24 Range/Units 12:00 12:00 12:00 WBC 29.2 H (3.8-10.6) k/uL RBC 4.95 (4.30-5.90) m/uL Hgb 13.4 (13.0-17.5) gm/dL Hct 41.6 (39.0-53.0) % MCV 84.2 (80.0-100.0) fL MCH 27.1 (25.0-35.0) pg MCHC 32.2 (31.0-37.0) g/dL RDW 16.0 H (11.5-15.5) % Plt Count 373 (150-450) k/uL MPV 7.8 Neutrophils % 91 % Lymphocytes % 3 % Monocytes % 5 % Eosinophils % 1 % Basophils % 0 % Neutrophils # 26.5 H (1.3-7.7) k/uL Lymphocytes # 0.8 L (1.0-4.8) k/uL Monocytes # 1.5 H (0-1.0) k/uL Eosinophils # 0.2 (0-0.7) k/uL Basophils # 0.1 (0-0.2) k/uL Manual Slide Review Performed Toxic Granulation Present Anisocytosis Slight Sodium 137 (137-145) mmol/L Potassium 4.3 (3.5-5.1) mmol/L Chloride 107 (98-107) mmol/L Carbon Dioxide 20 L (22-30) mmol/L Anion Gap 10 mmol/L BUN 25 H (9-20) mg/dL Creatinine 1.59 H (0.66-1.25) mg/dL Est GFR (CKD-EPI)AfAm 46 (>60 ml/min/1.73 sqM) Est GFR (CKD-EPI)NonAf 40 (>60 ml/min/1.73 sqM) Glucose 93 (74-99) mg/dL Lactic Ac Sepsis Rflx Plasma Lactic Acid Yasir 3.7 H* (0.7-2.0) mmol/L Calcium 8.6 (8.4-10.2) mg/dL Phosphorus 3.7 (2.5-4.5) mg/dL Magnesium 1.8 (1.6-2.3) mg/dL Total Bilirubin 1.3 (0.2-1.3) mg/dL AST 24 (17-59) U/L ALT 18 (4-49) U/L Alkaline Phosphatase 74 (38-126) U/L Total Protein 6.8 (6.3-8.2) g/dL Albumin 3.7 (3.5-5.0) g/dL Amylase 46 (30-110) U/L Lipase 30 (23-300) U/L 05/29/24 Range/Units 12:56 WBC (3.8-10.6) k/uL RBC (4.30-5.90) m/uL Hgb (13.0-17.5) gm/dL Hct (39.0-53.0) % MCV (80.0-100.0) fL MCH (25.0-35.0) pg MCHC (31.0-37.0) g/dL RDW (11.5-15.5) % Plt Count (150-450) k/uL MPV Neutrophils % % Lymphocytes % % Monocytes % % Eosinophils % % Basophils % % Neutrophils # (1.3-7.7) k/uL Lymphocytes # (1.0-4.8) k/uL Monocytes # (0-1.0) k/uL Eosinophils # (0-0.7) k/uL Basophils # (0-0.2) k/uL Manual Slide Review Toxic Granulation Anisocytosis Sodium (137-145) mmol/L Potassium (3.5-5.1) mmol/L Chloride (98-107) mmol/L Carbon Dioxide (22-30) mmol/L Anion Gap mmol/L BUN (9-20) mg/dL Creatinine (0.66-1.25) mg/dL Est GFR (CKD-EPI)AfAm (>60 ml/min/1.73 sqM) Est GFR (CKD-EPI)NonAf (>60 ml/min/1.73 sqM) Glucose (74-99) mg/dL Lactic Ac Sepsis Rflx Y Plasma Lactic Acid Yasir (0.7-2.0) mmol/L Calcium (8.4-10.2) mg/dL Phosphorus (2.5-4.5) mg/dL Magnesium (1.6-2.3) mg/dL Total Bilirubin (0.2-1.3) mg/dL AST (17-59) U/L ALT (4-49) U/L Alkaline Phosphatase (38-126) U/L Total Protein (6.3-8.2) g/dL Albumin (3.5-5.0) g/dL Amylase (30-110) U/L Lipase (23-300) U/L Disposition <Judy Torres - Last Filed: 05/29/24 11:38> Time of Disposition: 15:52 <Pietro Urena - Last Filed: 05/29/24 15:52> Clinical Impression: Acute kidney injury, Generalized weakness, C. difficile colitis Disposition: ADMITTED IP TO THIS HOSP Condition: Fair Referrals: Celina Munoz MD [Primary Care Provider] - 1-2 days
[2024-05-29 12:13] LABS: Anisocytosis Slight; Basophils # (A) 0.1 k/uL (0-0.2); Basophils % (A) 0 %; Eosinophils # (A) 0.2 k/uL (0-0.7); Eosinophils % (A) 1 %; HCT 41.6 % (39.0-53.0); HGB 13.4 gm/dL (13.0-17.5); Lymphocytes # (A) 0.8 k/uL (1.0-4.8); Lymphocytes % (A) 3 %; MCH 27.1 pg (25.0-35.0); MCHC 32.2 g/dL (31.0-37.0); MCV 84.2 fL (80.0-100.0); Mean Platelet Volume 7.8; Monocytes # (A) 1.5 k/uL (0-1.0); Monocytes % (A) 5 %; Neutrophils # (A) 26.5 k/uL (1.3-7.7); Neutrophils % (A) 91 %; Platelet Count 373 k/uL (150-450); RBC 4.95 m/uL (4.30-5.90); WBC 29.2 k/uL (3.8-10.6)
[2024-05-29 12:30] LABS: ALT 18 U/L (4-49); AST 24 U/L (17-59); African American GFR (CKD) 46 (>60 ml/min/1.73 sqM); Albumin 3.7 g/dL (3.5-5.0); Alkaline Phosphatase 74 U/L (38-126); Amylase 46 U/L (30-110); Anion Gap 10 mmol/L; Blood Urea Nitrogen 25 mg/dL (9-20); Calcium 8.6 mg/dL (8.4-10.2); Carbon Dioxide 20 mmol/L (22-30); Chloride 107 mmol/L (98-107); Glucose 93 mg/dL (74-99); Lipase 30 U/L (23-300); Magnesium 1.8 mg/dL (1.6-2.3); Non-African American GFR(CKD) 40 (>60 ml/min/1.73 sqM); Phosphorus 3.7 mg/dL (2.5-4.5); Potassium 4.3 mmol/L (3.5-5.1); Sodium 137 mmol/L (137-145); Total Bilirubin 1.3 mg/dL (0.2-1.3); Total Protein 6.8 g/dL (6.3-8.2)
[2024-05-29] MEDS: SODIUM CHLORIDE 0.9% 1,000 ML IV STA (14:17)
[2024-05-29 14:27] LABS: Toxic Granulation Present
--- NOTE | 2024-05-29 14:38 | CT ---
EXAMINATION TYPE: CT abdomen pelvis wo con DATE OF EXAM: 05/29/2024 COMPARISON: 03/18/2024 CLINICAL INDICATION: Male, 83 years old with history of diarrhea, fever, hx c diff; PHH, C-DIFF TECHNIQUE: CT scan of the abdomen and pelvis is performed without oral or IV contrast. CT DLP: 3169.[address] CTDI: mGy Automated exposure control for dose reduction was used. FINDINGS: Within the limitations of a non-contrast study, the following observations are made. The lungs are clear. There is stable moderate cardiomegaly and stable moderate pericardial effusion. There is surgical absence of the gallbladder. There is no biliary ductal dilatation. There is no organomegaly of the liver, pancreas, spleen or adrenal glands. There are multiple stable hypodensities within the left lobe liver consistent with hepatic cysts. Stable dense bilateral nonobstructing cortical calcifications in both kidneys. There is moderate atro phy of the left kidney. There is no definite hydronephrosis. The caliber of the abdominal aorta is normal and there is no retroperitoneal adenopathy or hemorrhage . The bowel loops are normal in caliber is no evidence of obstruction. No inflammatory changes are iden tified in the mesentery and there is no free intraperitoneal air or fluid. There is moderate divertic ulosis of the colon without CT evidence of diverticulitis There is no pelvic mass, free fluid, abscess or adenopathy. There are metallic artifacts related to the prostate gland possibly radiation seeds. There are advan jaclyn degenerative changes throughout the lumbar spine but there is no focal osseous abnormality. IMPRESSION: 1. No acute changes within the abdomen or pelvis. 2. Stable moderate cardiomegaly with stable moderate pericardial effusion. 3. Stable renal calcifications and moderate left renal atrophy [facility], , 05/29/2024 2:36 PM
[2024-05-29] MEDS: SODIUM CHLORIDE 0.9% 1,000 ML IV SCH (16:53)
[2024-05-29] MEDS: cefTRIAXone IN SWFI 1,000 MG/10 ML SYRINGE IVP STA (19:57)
[2024-05-29] MEDS: VANCOMYCIN 125 MG CAPSULE PO SCH (21:06)
[2024-05-29] MEDS: FIDAXOMICIN 200 MG TABLET PO SCH (21:06)
[2024-05-30] MEDS: ZINC OXIDE 20% OINT 28.4 GM TUBE TOPICAL PRN (03:39)
[2024-05-30] MEDS: MIDODRINE 5 MG TAB PO SCH (12:28)
[2024-05-30] MEDS: VANCOMYCIN 125 MG CAPSULE PO SCH (12:28)
--- NOTE | 2024-05-30 13:04 | P.HPIM ---
History of Present Illness H&P Date: 05/30/24 Chief Complaint: Diarrhea Patient is a 83-year-old male with past medical history of hypertension, hyperlipidemia, CVA TIA, heart failure, history of recurrent UTIs as well as recent admission for C. difficile colitis with failure of outpatient treatment who presented to the ED yesterday with diarrhea and fever. He mentions being in the hospital in April for C. difficile colitis and he was discharged home with for fidaxomicin 20 mg p.o. every 12 hours. He completed the course of medications and was feeling better. He stopped taking the medication a week ago and since the past 2-3 days he has experienced diarrhea along with fever. He tried taking OTC diarrhea relief medication but it didn't help with his symptoms.He also complains of pain in left lower quadrant that is brought on with his diarrhea episodes. He contacted Dr. Castillo who asked him to go to the ER. Denies chills, chest pain, shortness of breath, cough, dysuria, hematuria, hematochezia, melena, nausea, vomiting. ED documentation reviewed and case discussed with ED provider. In the ED he was started on fidaxomicin 200 mg p.o. every 12 hours and vancomycin 125 mg p.o. 4 times daily and 0.9 normal saline at 75 mL/h as well as given ceftriaxone milligrams once. Vitals on admission T 98.4 F, P 77 bpm, BP 106/53, O2 sat 95% on room air Labs on admission WBC 29.2, BUN 25, creatinine 1.59, lactic acid 3.[address] of abdomen and pelvis showed No acute changes within the abdomen or pelvis, stable moderate cardiomegaly with stable moderate pericardial effusion, stable renal calcifications and moderate left renal atrophy. Review of systems: Pertinent positives and negatives as discussed in HPI, a complete review of systems was performed and all other systems are negative. PMH: C. difficile colitis, UTI, hypertension, hyperlipidemia, CVA, TIA, heart failure PSH: Cholecystectomy, hernia repair, pacemaker Social history: Tobacco: Former smoker Alcohol: Denies use Recreational drugs: Denies use Travel: No recent travel history Sick contacts: None Physical examination: Vital signs reviewed General: nontoxic, no distress, appears at stated age Derm: warm, dry, intact Head: atraumatic, normocephalic, symmetric Eyes: EOMI, anicteric sclera Mouth: no lip lesion, mucus membranes moist Cardiovascular: S1 S2 reg, no murmur Lungs: CTA bilateral, no rhonchi, no rales, no accessory muscle use Abdominal: soft, non-tender to palpataion Extremities: No cyanosis, clubbing, or pedal edema. Neuro: Alert, Oriented, Gross neurological examination did not reveal any focal deficits. Psych: well appearing, appropriate affect Assessment/Plan: Patient is an 83-year-old male with past medical history of heart failure, history of recurrent UTIs as well as recent admission for C. difficile colitis with failed outpatient treatment with fidaxomicin. Presented to the ED with diarrhea and fever. He has been admitted for further workup and management of recurrent C. difficile colitis. #. Acute recurrent C. difficile colitis Continue vancomycin 125 mg p.o. 4 times daily and Fidaxomicin 200 mg p.o. every 12 hours Blood culture ordered ID is consulted #. PARK, prerenal, secondary to volume loss with diarrhea Continue 0.9 normal saline 75 mL/h Monitor BMP #. Pericardial effusion on CTAP Echocardiogram ordered Consult cardiology #. Rash on buttocks Continue zinc oxide 20% ointment 1 application topically 3 times daily as needed #. History of BPH Continue Tamsulosin 0.4 mg PO F:0.9 normal saline at 75 ml/hr E:Replete as required N:Heart healthy diet A:Bed bound GI prophylaxis: Pantoprazole 40 mg PO Daily The patient is admitted with an anticipated more than 2 midnight stay for evaluation of recurrent C. Difficile colitis CODE STATUS: Full Code Discussed with: Patient and daughter Anticipated discharge place: Home attestation: I have personally seen and examined the patient with Resident, reviewed the documentation and participated and agree with the assessment and plan as written. Benjamin Campos MD Past Medical History Past Medical History: Atrial Fibrillation, Cancer, Heart Failure, CVA/TIA, GERD/Reflux, Hyperlipidemia, Hypertension, Prostate Disorder Additional Past Medical History / Comment(s): tia-2005, See Dr Aguirre H&P, arthritis, uses walker or cane, enlarged prostate, prostate CA 2015(radiation), hx shingles some edema to left ankle using lasix. dry skin on arms, numbness in last 2 fingers to left hand, kidney stone. History of Any Multi-Drug Resistant Organisms: C-DIFF, CRE Date of last positivie culture/infection: 01/11/24, February 2024 for Cdiff MDRO Source:: Urine-CRE, Stool Past Surgical History: Cholecystectomy, Hernia Repair, Orthopedic Surgery, Pacemaker Additional Past Surgical History / Comment(s): cervical fusion, lithrotripsy, Past Anesthesia/Blood Transfusion Reactions: No Reported Reaction Additional Past Anesthesia/Blood Transfusion Reaction / Comment(s): Pt has never recieved blood. Type of Cardiac Device: Permanent Pacemaker Device Placement Date:: 2013 Past Psychological History: No Psychological Hx Reported Smoking Status: Former smoker Past Alcohol Use History: None Reported Past Drug Use History: None Reported - Past Family History Father Family Medical History: Diabetes Mellitus Mother Family Medical History: Osteoarthritis (OA) Additional Family Medical History / Comment(s): arthritis Medications and Allergies Home Medications Medication Instructions Recorded Confirmed Type Acetaminophen [Tylenol] 1,000 mg PO Q6H PRN 05/30/21 05/29/24 History Albuterol Inhaler [Ventolin Hfa 2 puff INHALATION RT-Q6H PRN each 12/27/23 05/29/24 Rx Inhaler] Ramelteon 8 mg PO HS 01/10/24 05/29/24 History Potassium Chloride ER [K-Dur 10] 10 meq PO DAILY 03/18/24 05/29/24 History Nystatin 100,000 Unit/gm Powd 1 applic TOPICAL BID PRN 04/30/24 05/29/24 History [Mycostatin Powder] Warfarin [Coumadin] 2.5 mg PO SUTUTH@209904/30/24 05/29/24 History Warfarin [Coumadin] 5 mg PO MOWEFRSA@2100 04/30/24 05/29/24 History Cholestyramine (with Sugar) 4 gm PO BID #60 packet 05/12/24 05/29/24 Rx [Questran Packet] Midodrine [ProAmatine] 5 mg PO AC-TID #90 tab 05/12/24 05/29/24 Rx Pantoprazole [Protonix] 40 mg PO DAILY #30 tab 05/12/24 05/29/24 Rx Sodium Bicarbonate Tab 650 mg PO BID #60 tab 05/12/24 05/29/24 Rx Tamsulosin [Flomax] 0.4 mg PO PC-SUPPER #30 cap 05/12/24 05/29/24 Rx Allergies Allergy/AdvReac Type Severity Reaction Status Date / Time No Known Allergies Allergy Verified 05/29/24 16:27 Physical Exam Vitals: Vital Signs Temp Pulse Resp BP Pulse Ox 05/30/24 05:00 60 18 111/53 96 05/30/24 00:00 60 16 104/46 98 05/29/24 23:54 60 18 116/57 96 05/29/24 22:10 60 18 99/48 99 05/29/24 19:00 55 L 20 95/61 98 05/29/24 14:56 93 L 05/29/24 14:47 60 18 108/44 05/29/24 11:00 98.4 F 77 16 106/53 95 Results CBC & Chem 7: 05/31/24 03:40 05/31/24 03:40 Labs: Abnormal Lab Results - Last 24 Hours (Table) 05/29/24 05/29/24 05/29/24 Range/Units 12:00 12:00 12:00 WBC 29.2 H (3.8-10.6) k/uL RDW 16.0 H (11.5-15.5) % Neutrophils # 26.5 H (1.3-7.7) k/uL Lymphocytes # 0.8 L (1.0-4.8) k/uL Monocytes # 1.5 H (0-1.0) k/uL Carbon Dioxide 20 L (22-30) mmol/L BUN 25 H (9-20) mg/dL Creatinine 1.59 H (0.66-1.25) mg/dL Plasma Lactic Acid Yasir 3.7 H* (0.7-2.0) mmol/L C. difficile (EIA) Intrp (Negative) 05/29/24 Range/Units 12:00 WBC (3.8-10.6) k/uL RDW (11.5-15.5) % Neutrophils # (1.3-7.7) k/uL Lymphocytes # (1.0-4.8) k/uL Monocytes # (0-1.0) k/uL Carbon Dioxide (22-30) mmol/L BUN (9-20) mg/dL Creatinine (0.66-1.25) mg/dL Plasma Lactic Acid Yasir (0.7-2.0) mmol/L C. difficile (EIA) Intrp Positive A (Negative) Thrombosis Risk Factor Assmnt - Choose All That Apply Each Factor Represents 1 point: Obesity (BMI >25) Each Risk Factor Represents 2 Points: Patient confined to bed Each Risk Factor Represents 3 Points: Age 75 years or older Thrombosis Risk Factor Assessment Total Risk Factor Score: 6 Thrombosis Risk Factor Assessment Level: High Risk
[2024-05-30 15:17] LABS: INR 1.4 (<1.2); Partial Thromboplastin Time 34.5 sec (22.0-30.0)
[2024-05-30] MEDS: TAMSULOSIN 0.4 MG CAP.ER.24H PO SCH (17:45)
--- NOTE | 2024-05-30 20:12 | CA ---
Transthoracic Echo Report Name: Santosh Melton Age: 83 Gender: M : 1940 Exam Date: 05/30/2024 14:49 Exam Location: [place] [facility] Ht (in): 72 Wt (lb): 285 Ordering Physician: Britta Arellano MD Attending/Referring Phys: Campaign Analyst Kalie Maya RDCS Procedure CPT: Indications: pericardial effusion on CT Cardiac Hx: Technical Quality: Technically difficult study Contrast 1: Definity Total Dose (mL): 2 Contrast 2: Total Dose (mL): MEASUREMENTS (Male / Female) Normal Values 2D ECHO LV Diastolic Diameter PLAX 5.5 cm 4.2 - 5.9 / 3.9 - 5.3 cm LV Systolic Diameter PLAX 3.7 cm IVS Diastolic Thickness 1.3 cm 0.6 - 1.0 / 0.6 - 0.9 cm LVPW Diastolic Thickness 1.3 cm 0.6 - 1.0 / 0.6 - 0.9 cm LV Relative Wall Thickness 0.5 LVOT Diameter 2.7 cm LV Diastolic Volume MOD BP 170.1 cm??? 67 - 155 / 56 - 104 cm??? LV Systolic Volume MOD BP 66.7 cm??? 22 - 58 / 19 - 49 cm??? LV Ejection Fraction MOD BP 60.8 % >= 55 % LV Cardiac Index MOD BP 2492.0 cm???/min???m??? LV Diastolic Volume MOD 4C 162.6 cm??? LV Systolic Volume MOD 4C 58.5 cm??? LV Ejection Fraction MOD 4C 64.0 % LV Cardiac Index MOD 4C 2507.4 cm???/min???m??? LV Diastolic Length 4C 8.5 cm LV Systolic Length 4C 7.1 cm LV Diastolic Volume MOD 2C 176.2 cm??? LV Systolic Volume MOD 2C 73.9 cm??? LV Ejection Fraction MOD 2C 58.1 % LV Cardiac Index MOD 2C 2467.3 cm???/min???m??? LV Diastolic Length 2C 8.6 cm LV Systolic Length 2C 7.4 cm LA Volume 113.1 cm??? 18 - 58 / 22 - 52 cm??? LA Volume Index 43.3 cm???/m??? 16 - 28 cm???/m??? Ascending Aorta Diameter 3.8 cm DOPPLER AV Peak Velocity 152.8 cm/s AV Peak Gradient 9.3 mmHg AV Mean Velocity 107.6 cm/s AV Mean Gradient 5.2 mmHg AV Velocity Time Integral 30.4 cm LVOT Peak Velocity 105.1 cm/s LVOT Peak Gradient 4.4 mmHg LVOT Velocity Time Integral 20.3 cm LVOT Stroke Volume 115.8 cm??? LVOT Stroke Volume Index 46.8 ml/m??? LVOT Cardiac Index 2792.0 cm???/min???m??? AV Area Cont Eq vti 3.8 cm??? AV Area Cont Eq pk 3.9 cm??? MR Peak Velocity 492.4 cm/s MR Peak Gradient 97.0 mmHg TR Peak Velocity 266.1 cm/s TR Peak Gradient 28.3 mmHg Right Atrial Pressure 5.0 mmHg Pulmonary Artery Systolic Pressu 33.3 mmHg Right Ventricular Systolic Press 33.3 mmHg PV Peak Velocity 139.8 cm/s PV Peak Gradient 7.8 mmHg FINDINGS Left Ventricle Left ventricular ejection fraction is estimated at 55-60 %. Mildly increased septal wall thickness. Mildly increased left ventricular diastolic volume. Mildly increased left ventricular systolic volume. No obvious regional wall motion abnormalities. Right Ventricle Mild right ventricular dilatation with mildly reduced function. Right ventricular systolic pressure within normal limits. Right Atrium Severe right atrial dilatation. Catheter/pacemaker wire in the right atrial cavity. Left Atrium Severely increased left atrial volume. Moderately increased left atrial area. Mitral Valve Structurally normal mitral valve. No evidence for mitral valve prolapse. No mitral stenosis. Mild mitral regurgitation. Aortic Valve Trileaflet aortic valve. No aortic stenosis. Mild aortic regurgitation. Tricuspid Valve Structurally normal tricuspid valve. No tricuspid stenosis. Mild tricuspid regurgitation. Pulmonic Valve Structurally normal pulmonic valve. No pulmonic stenosis. Trace pulmonic regurgitation. Pericardium Mild pericardial effusion with no signs of tamponade physiology Aorta Normal size aortic root and proximal ascending aorta. CONCLUSIONS Technically difficult study. LVEF 55 to 60% Mild concentric LVH Mild RV dilatation with mildly reduced systolic function. PPM wire noticed an RV and RA Severe RA dilatation, severe LA dilatation Mild MR Mild AI Mild TR Mild pericardial effusion with no signs of tamponade physiology Previewed by: Dr Ab Mckeon (Electronically Signed) Final Date: 30 May 2024 20:11
[2024-05-30] MEDS: WARFARIN 5 MG TAB PO SCH (21:04)
--- NOTE | 2024-05-30 22:38 | P.CONS ---
History of Present Illness - Reason for Consult Consult date: 05/30/24 C. difficile Requesting physician: Pietro Urena - Chief Complaint Diarrhea x 2 days - History of Present Illness Patient is a 83-year-old male with a past medical history significant for hypertension hyperlipidemia prostate disorder reflux CVA TIA and recurrent C. difficile colitis with recent admission to the hospital with sepsis secondary to C. difficile colitis for the patient has been treated with the Dificid with the patient completed about 10 days ago a week later patient started having diarrhea with multiple loose stools and has also developed a fever for the patient has been brought back to the hospital patient reported multiple episodes of loose stools per day denies any blood or mucus in the stool has been complaining of some crampy lower abdominal pain nausea but no vomiting and decreased oral intake patient denies having any URI symptoms no chest pain shortness of breath or cough and no urinary symptoms on presentation to the hospital the patient was afebrile patient was not tachycardic hypotensive or hypoxic patient did have elevated white count of 29.2 BUN/creatinine has been mildly elevated lactic acid of 3.7 stool for C. difficile came back positive patient did have a abdominal pelvis CT no acute changes within abdominal pelvis patient was started on oral vancomycin infectious disease was consulted because of recurrent C. difficile colitis Review of Systems Positive point and negatives has been mentioned in the HPI, complete review of systems was performed and all other systems are negative Past Medical History Past Medical History: Atrial Fibrillation, Cancer, Heart Failure, CVA/TIA, GERD/Reflux, Hyperlipidemia, Hypertension, Prostate Disorder Additional Past Medical History / Comment(s): tia-2004, See Dr Augirre H&P, arthritis, uses walker or cane, enlarged prostate, prostate CA 2014(radiation), hx shingles some edema to left ankle using lasix. dry skin on arms, numbness in last 2 fingers to left hand, kidney stone. History of Any Multi-Drug Resistant Organisms: C-DIFF, CRE Year Discovered:: 01/11/24, February 2024 for Cdiff MDRO Source:: Urine-CRE, Stool Past Surgical History: Cholecystectomy, Hernia Repair, Orthopedic Surgery, Pacemaker Additional Past Surgical History / Comment(s): cervical fusion, lithrotripsy, Past Anesthesia/Blood Transfusion Reactions: No Reported Reaction Additional Past Anesthesia/Blood Transfusion Reaction / Comm: Pt has never recieved blood. Type of Cardiac Device: Permanent Pacemaker Device Placement Date:: 2013 Past Psychological History: No Psychological Hx Reported Smoking Status: Former smoker Past Alcohol Use History: None Reported Past Drug Use History: None Reported - Past Family History Father Family Medical History: Diabetes Mellitus Mother Family Medical History: Osteoarthritis (OA) Additional Family Medical History / Comment(s): arthritis Medications and Allergies Home Medications Medication Instructions Recorded Confirmed Type Acetaminophen [Tylenol] 1,000 mg PO Q6H PRN 05/30/21 05/29/24 History Albuterol Inhaler [Ventolin Hfa 2 puff INHALATION RT-Q6H PRN each 12/27/23 05/29/24 Rx Inhaler] Ramelteon 8 mg PO HS 01/10/24 05/29/24 History Potassium Chloride ER [K-Dur 10] 10 meq PO DAILY 03/18/24 05/29/24 History Nystatin 100,000 Unit/gm Powd 1 applic TOPICAL BID PRN 04/30/24 05/29/24 History [Mycostatin Powder] Warfarin [Coumadin] 2.5 mg PO SUTUTH@2100 04/30/24 05/29/24 History Warfarin [Coumadin] 5 mg PO MOWEFRSA@2100 04/30/24 05/29/24 History Cholestyramine (with Sugar) 4 gm PO BID #60 packet 05/12/24 05/29/24 Rx [Questran Packet] Midodrine [ProAmatine] 5 mg PO AC-TID #90 tab 05/12/24 05/29/24 Rx Pantoprazole [Protonix] 40 mg PO DAILY #30 tab 05/12/24 05/29/24 Rx Sodium Bicarbonate Tab 650 mg PO BID #60 tab 05/12/24 05/29/24 Rx Tamsulosin [Flomax] 0.4 mg PO PC-SUPPER #30 cap 05/12/24 05/29/24 Rx Allergies Allergy/AdvReac Type Severity Reaction Status Date / Time No Known Allergies Allergy Verified 05/29/24 16:27 Physical Exam Vitals: Vital Signs Pulse Resp BP Pulse Ox 05/30/24 05:00 60 18 111/53 96 05/30/24 00:00 60 16 104/46 98 05/29/24 23:54 60 18 116/57 96 05/29/24 22:10 60 18 99/48 99 05/29/24 19:00 55 L 20 95/61 98 05/29/24 14:56 93 L 05/29/24 14:47 60 18 108/44 GENERAL DESCRIPTION: Elderly male lying in bed, no distress. No tachypnea or accessory muscle of respiration use. HEENT: Shows Pallor , no scleral icterus. Oral mucous membrane is dry. No pharyngeal erythema or thrush NECK: Trachea central, no thyromegaly. LUNGS: Unlabored breathing. Clear to auscultation anteriorly. No wheeze or crackle. HEART: S1, S2, regular rate and rhythm. No loud murmur ABDOMEN: Soft, no tenderness , EXTREMITIES: No edema of feet. SKIN: No rash, no masses palpable. NEUROLOGICAL: The patient is awake, alert, oriented x3, mood and affect normal. Results CBC & Chem 7: 05/29/24 12:00 05/29/24 12:00 Labs: Abnormal Lab Results - Last 24 Hours (Table) 05/29/24 05/29/24 05/29/24 Range/Units 12:00 12:00 12:00 WBC 29.2 H (3.8-10.6) k/uL RDW 16.0 H (11.5-15.5) % Neutrophils # 26.5 H (1.3-7.7) k/uL Lymphocytes # 0.8 L (1.0-4.8) k/uL Monocytes # 1.5 H (0-1.0) k/uL Carbon Dioxide 20 L (22-30) mmol/L BUN 25 H (9-20) mg/dL Creatinine 1.59 H (0.66-1.25) mg/dL Plasma Lactic Acid Yasir 3.7 H* (0.7-2.0) mmol/L C. difficile (EIA) Intrp (Negative) 05/29/24 Range/Units 12:00 WBC (3.8-10.6) k/uL RDW (11.5-15.5) % Neutrophils # (1.3-7.7) k/uL Lymphocytes # (1.0-4.8) k/uL Monocytes # (0-1.0) k/uL Carbon Dioxide (22-30) mmol/L BUN (9-20) mg/dL Creatinine (0.66-1.25) mg/dL Plasma Lactic Acid Yasir (0.7-2.0) mmol/L C. difficile (EIA) Intrp Positive A (Negative) Assessment and Plan (1) C. difficile colitis Current Visit: Yes Status: Acute Code(s): A04.72 - ENTEROCOLITIS D/T CLOSTRIDIUM DIFFICILE, NOT SPCF RECUR SNOMED Code(s): 824658946 (2) Sepsis Current Visit: No Status: Acute Code(s): A41.9 - SEPSIS, UNSPECIFIED ORGANISM SNOMED Code(s): 04095196 (3) Leukocytosis Current Visit: No Status: Acute Code(s): D72.829 - ELEVATED WHITE BLOOD CELL COUNT, UNSPECIFIED SNOMED Code(s): 526297296 Plan: 1patient was in the hospital with sepsis in this patient who did have significant evaded white count elevated lactic acid meeting criteria for SIRS source is severe C. difficile colitis in this patient did have recurrent episode of C. difficile colitis with last episode being treated with oral Dificid and did not have any other antibiotic exposure 2we will increase the dose of vancomycin to 500 mg p.o. every 6 hours keeping in mind recurrent and severe episode 3if has persistent diarrhea we will add Questran for symptomatic relief 4-patient has been encouraged to increase his yogurt intake Care discussed in detail with the daughter for arrangement to see physician at [facility] for possible stool transplant names of the physician performing stool transplant has been shared with the daughter 5contact isolation We will follow on clinical condition and cultures to further adjust medication if needed Thank you for this consultation we will follow the patient along with you Dictation was produced using [employer]ooma dictation software. please excuse any grammatical, word or spelling errors.
[2024-05-31 04:20] LABS: INR 1.7 (<1.2); Prothrombin Time 16.9 sec (10.0-12.5)
[2024-05-31] MEDS: PANTOPRAZOLE 40 MG TABLET PO SCH (06:15)
[2024-05-31 10:18] LABS: HGB 11.3 g/dL (13.0-17.0); MCH 26.8 pg (27.0-32.0); MCHC 32.3 g/dL (32.0-37.0); MCV 82.9 FL (80.0-97.0); Mean Platelet Volume 9.6 FL (9.5-12.2); NRBC Per 100 WBC 0 X 10*3/uL (0.00-0.01); Platelet Count 354 X 10*3/uL (140-440); RBC 4.22 X 10*6/uL (4.40-5.60); RDW 16.8 % (11.5-14.5); WBC 15.67 X 10*3/uL (4.50-10.00)
[2024-05-31 10:51] LABS: BUN/Creat Ratio 19.29 Ratio (12.00-20.00); Calcium 7.9 mg/dL (8.7-10.3); Carbon Dioxide 16.9 mmol/L (21.6-31.8); Chloride 110 mmol/L (96-109); Glucose 85 mg/dL (70-110); Potassium 3.3 mmol/L (3.5-5.5); Sodium 140 mmol/L (135-145)
--- NOTE | 2024-05-31 14:16 | P.PN ---
Subjective Progress Note Date: 05/31/24 Interval History: Patient is a 83-year-old male with past medical history of hypertension, hyperlipidemia, CVA TIA, heart failure, history of recurrent UTIs as well as recent admission for C. difficile colitis with failure of outpatient treatment who presented to the ED yesterday with diarrhea and fever. He mentions being in the hospital in April for C. difficile colitis and he was discharged home with for fidaxomicin 20 mg p.o. every 12 hours. He completed the course of medications and was feeling better. He stopped taking the medication a week ago and since the past 2-3 days he has experienced diarrhea along with fever. He tried taking OTC diarrhea relief medication but it didn't help with his symptoms.He also complains of pain in left lower quadrant that is brought on with his diarrhea episodes. He contacted Dr. Castillo who asked him to go to the ER. Denies chills, chest pain, shortness of breath, cough, dysuria, hematuria, hematochezia, melena, nausea, vomiting. ED documentation reviewed and case discussed with ED provider. In the ED he was started on fidaxomicin 200 mg p.o. every 12 hours and vancomycin 125 mg p.o. 4 times daily and 0.9 normal saline at 75 mL/h as well as given ceftriaxone milligrams once. Vitals on admission T 98.4 F, P 77 bpm, BP 106/53, O2 sat 95% on room air Labs on admission WBC 29.2, BUN 25, creatinine 1.59, lactic acid 3.[address] of abdomen and pelvis showed No acute changes within the abdomen or pelvis, stable moderate cardiomegaly with stable moderate pericardial effusion, stable renal calcifications and moderate left renal atrophy. 05/31/2024 Patient is feeling better today. Appetite is better. Tolerated p.o. intake. Denied any nausea or vomiting. Still complaining of loose stools, had 6-7 loose stools overnight, 2 loose stools since morning. Afebrile, heart rate 62, respiratory rate 17, blood pressure 132/66, saturating 96% on room air. WBCs down to 15.6 as compared to 29.2 yesterday. Hemoglobin 11.3, platelet 354. INR 1.7. Sodium 140, potassium 3.3, BUN 13, creatinine 1.4. Calcium 7.9. Remains on fidaxomicin and p.o. vancomycin, also on Coumadin for atrial fibrillation. Cardiology and infectious disease consulted. Assessment and plan: #. 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 Blood cultures. Monitor renal function IV fluids #. PARK, prerenal, secondary to volume loss with diarrhea Continue 0.9 normal saline 75 mL/h Monitor BMP Pre renal Paroxysmal atrial fibrillation: Anticoagulated with Coumadin. #. Pericardial effusion on CTAP Echocardiogram ordered Consult cardiology No sign or symptom of tamponade. Monitor vitals closely. #. Rash on buttocks Continue zinc oxide 20% ointment 1 application topically 3 times daily as needed #. History of BPH Continue Tamsulosin 0.4 mg PO DVT prophylaxis: Coagulated was on warfarin Monitor vital signs and labs Labs and medication were reviewed. Continue same treatment. Further recommendations as per clinical course of the patient PHYSICAL EXAMINATION: GENERAL: The patient is A&O x3, NAD HEENT: EOMI, Sclerae anicteric, Moist Mucous membranes Neck: Supple, Non tender, No JVD PULMONARY: Equal breath souds B/L, No wheezing, No crackles. CARDIOVASCULAR: S1, S2 present. No murmurs, rubs, or gallops. ABDOMEN: Soft, nontender, nondistended, normoactive bowel sounds. No guarding or rebound tenderness. MUSCULOSKELETAL: No edema, No cyanosis. No clubbing. Normal ROM. Intact peripheral pulses. EXTREMITIES: No cyanosis, clubbing, or pedal edema. NEUROLOGICAL: CN 2-12 grossly intact. No FND Skin: No Rash REVIEW OF SYSTEMS: CONSTITUTIONAL: No fever or chills. CARDIOVASCULAR: No chest pain, palpitations or syncope. PULMONARY: No shortness of breath, no cough, sore throat. GASTROINTESTINAL: No nausea, vomiting, diarrhea, abdominal pain. : No Dysuria, urgency, frequency. Extremities: No edema. NEUROLOGICAL: No headaches, no weakness, or numbness Dictation was produced using [employer] dictation software. please excuse any grammatical, word or spelling errors. Objective - Vital Signs Vital signs: Vital Signs Temp 97.9 F 05/31/24 07:10 Pulse 58 L 05/31/24 08:00 Resp 17 05/31/24 08:00 BP 132/66 05/31/24 07:10 Pulse Ox 96 05/31/24 07:10 FiO2 Intake & Output 05/30/24 05/31/24 05/31/24 18:59 06:59 18:59 Intake Total 925 Output Total 2 Balance 925 -2 Weight 129.274 kg Intake: Intake, IV Titration 925 Amount Sodium Chloride 0.9% 1, 925 000 ml @ 75 mls/hr IV . [id number] [facility] Rx#:[id number] Output: Urine 2 Other: Voiding Method Diaper Diaper Diaper Incontinent # Voids 2 4 # Bowel Movements 2 4 2 - Labs CBC & Chem 7: 05/31/24 03:40 05/31/24 03:40 Labs: Abnormal Lab Results - Last 24 Hours (Table) 05/30/24 05/31/24 05/31/24 Range/Units 14:39 03:40 03:40 WBC 15.67 H (4.50-10.00) X 10*3/uL RBC 4.22 L (4.40-5.60) X 10*6/uL Hgb 11.3 L (13.0-17.0) g/dL Hct 35.0 L (39.6-50.0) % MCH 26.8 L (27.0-32.0) pg RDW 16.8 H (11.5-14.5) % PT 15.0 H (10.0-12.5) sec INR 1.4 H (<1.2) APTT 34.5 H (22.0-30.0) sec Potassium 3.3 L (3.5-5.5) mmol/L Chloride 110 H (96-109) mmol/L Carbon Dioxide 16.9 L (21.6-31.8) mmol/L Anion Gap 13.10 H (4.00-12.00) mmol/L Est GFR (CKD-EPI) 50 L (>=60) Calcium 7.9 L (8.7-10.3) mg/dL 05/31/24 Range/Units 03:40 WBC (4.50-10.00) X 10*3/uL RBC (4.40-5.60) X 10*6/uL Hgb (13.0-17.0) g/dL Hct (39.6-50.0) % MCH (27.0-32.0) pg RDW (11.5-14.5) % PT 16.9 H (10.0-12.5) sec INR 1.7 H (<1.2) APTT (22.0-30.0) sec Potassium (3.5-5.5) mmol/L Chloride (96-109) mmol/L Carbon Dioxide (21.6-31.8) mmol/L Anion Gap (4.00-12.00) mmol/L Est GFR (CKD-EPI) (>=60) Calcium (8.7-10.3) mg/dL Microbiology - Last 24 Hours (Table) 05/29/24 15:52 Blood Culture - Preliminary Blood
[2024-05-31] MEDS ORDERED: Potassium Replacement Protocol 1 EACH MISC MISCELLANE PRN (14:17)
--- NOTE | 2024-05-31 15:33 | P.CRDCN ---
History of Present Illness Consult date: 05/31/24 History of present illness: HISTORY OF PRESENTING ILLNESS Patient is a 83-year-old with past medical history of hypertension, dyslipidemia, CVA, TIA, HFpEF, recurrent UTIs. He got admitted to the hospital because of C. difficile colitis cleared up outpatient therapy. He presented to the hospital with fever and diarrhea. He had a CT abdominal pelvis done which showed possible concern of possible pericardial effusion for which cardiology was consulted. His echocardiogram showed small pericardial effusion with no signs of tamponade physiology and preserved LVEF. BUN 27, creatinine 1.4 REVIEW OF SYSTEMS 14 point review of system is negative except what is mentioned above in HPI. PHYSICAL EXAMINATION Vital signs reviewed. Head: Normocephalic. Eyes: Sclerae nonicteric. Neck: Brisk carotid upstroke, no jugular venous distention. Lungs: Clear to auscultation. Heart: Regular rate and rhythm, S1-S2, no S3, no murmur or rub. Abdomen: Soft nontender, positive bowel sounds. Extremities: No edema, intact distal pulses. Neuro: Alert, oritented, no focal deficits. Detailed neuro exam was not performed. ASSESSMENT Small pericardial effusion, no signs of tamponade physiology Chronic atrial fibrillation, Status post pacemaker, currently in V-paced rhythm C. difficile colitis Sepsis PLAN Continue warfarin for his chronic atrial fibrillation. If patient is willing to go on Pradaxa and if it is not cost prohibitive, start Pradaxa instead of warfarin at time of discharge He is not on any rate control medication, blood pressure and heart rate are controlled. He is on midodrine as needed. At this time patient is stable from cardiac standpoint. Cardiology team will sign off. Please reconsult us in case of any question. Ab Mckeon MD, FACC, RPVI Thank you for allowing [facility] to participate in this patient's care. Feel free to reach out in case of any followup questions. Past Medical History Past Medical History: Atrial Fibrillation, Cancer, Heart Failure, CVA/TIA, GERD/Reflux, Hyperlipidemia, Hypertension, Prostate Disorder Additional Past Medical History / Comment(s): tia-2005, See Dr Aguirre H&P, arthritis, uses walker or cane, enlarged prostate, prostate CA 2015(radiation), hx shingles some edema to left ankle using lasix. dry skin on arms, numbness in last 2 fingers to left hand, kidney stone. History of Any Multi-Drug Resistant Organisms: C-DIFF, CRE Date of last positivie culture/infection: 01/11/24, February 2024 for Cdiff MDRO Source:: Urine-CRE, Stool Past Surgical History: Cholecystectomy, Hernia Repair, Orthopedic Surgery, Pacemaker Additional Past Surgical History / Comment(s): cervical fusion, lithrotripsy, Past Anesthesia/Blood Transfusion Reactions: No Reported Reaction Additional Past Anesthesia/Blood Transfusion Reaction / Comment(s): Pt has never recieved blood. Type of Cardiac Device: Permanent Pacemaker Device Placement Date:: 2013 Past Psychological History: No Psychological Hx Reported Smoking Status: Former smoker Past Alcohol Use History: None Reported Past Drug Use History: None Reported - Past Family History Father Family Medical History: Diabetes Mellitus Mother Family Medical History: Osteoarthritis (OA) Additional Family Medical History / Comment(s): arthritis Medications and Allergies Home Medications Medication Instructions Recorded Confirmed Type Acetaminophen [Tylenol] 1,000 mg PO Q6H PRN 05/30/21 05/29/24 History Albuterol Inhaler [Ventolin Hfa 2 puff INHALATION RT-Q6H PRN each 12/27/23 1 07/29/23 Rx Inhaler] Ramelteon 8 mg PO HS 01/10/24 05/29/24 History Potassium Chloride ER [K-Dur 10] 10 meq PO DAILY 03/18/24 05/29/24 History Nystatin 100,000 Unit/gm Powd 1 applic TOPICAL BID PRN 04/30/24 05/29/24 History [Mycostatin Powder] Warfarin [Coumadin] 2.5 mg PO SUTUTH@209904/30/24 05/29/24 History Warfarin [Coumadin] 5 mg PO MOWEFRSA@2100 04/30/24 05/29/24 History Cholestyramine (with Sugar) 4 gm PO BID #60 packet 05/12/24 05/29/24 Rx [Questran Packet] Midodrine [ProAmatine] 5 mg PO AC-TID #90 tab 05/12/24 05/29/24 Rx Pantoprazole [Protonix] 40 mg PO DAILY #30 tab 05/12/24 05/29/24 Rx Sodium Bicarbonate Tab 650 mg PO BID #60 tab 05/12/24 05/29/24 Rx Tamsulosin [Flomax] 0.4 mg PO PC-SUPPER #30 cap 05/12/24 05/29/24 Rx Allergies Allergy/AdvReac Type Severity Reaction Status Date / Time No Known Allergies Allergy Verified 05/29/24 16:27 Physical Exam Vitals: Vital Signs Temp Pulse Pulse Resp BP BP Pulse Ox 05/31/24 14:41 98.1 F 58 L 17 112/57 94 L 05/31/24 08:00 58 L 17 05/31/24 07:10 97.9 F 58 L 17 132/66 96 05/31/24 01:48 97.8 F 62 18 110/54 92 L 05/30/24 19:51 97.6 F 59 L 18 125/62 97 05/30/24 18:36 60 17 05/30/24 16:50 98.2 F 60 17 119/57 97 05/30/24 16:43 98.0 F 61 16 136/64 96 Intake and Output 05/31/24 05/31/24 05/31/24 06:59 14:59 22:59 Intake Total 925 Output Total 2 Balance 925 -2 Intake: Intake, IV Titration 925 Amount Sodium Chloride 0.9% 1, 925 000 ml @ 75 mls/hr IV . [id number] [facility] Rx#:[id number] Output: Urine 2 Other: Voiding Method Diaper # Voids 4 # Bowel Movements 4 2 Results 05/31/24 03:40 05/31/24 03:40 Coagulation 05/31/24 Range/Units 03:40 PT 16.9 H (10.0-12.5) sec CBC 05/31/24 Range/Units 03:40 WBC 15.67 H (4.50-10.00) X 10*3/uL RBC 4.22 L (4.40-5.60) X 10*6/uL Hgb 11.3 L (13.0-17.0) g/dL Hct 35.0 L (39.6-50.0) % Plt Count 354 (140-440) X 10*3/uL Comprehensive Metabolic Panel 05/31/24 Range/Units 03:40 Sodium 140 (135-145) mmol/L Potassium 3.3 L (3.5-5.5) mmol/L Chloride 110 H (96-109) mmol/L Carbon Dioxide 16.9 L (21.6-31.8) mmol/L BUN 27.0 (9.0-27.0) mg/dL Creatinine 1.4 (0.6-1.5) mg/dL Glucose 85 (70-110) mg/dL Calcium 7.9 L (8.7-10.3) mg/dL Current Medications Generic Name Dose Route Start Last Admin Trade Name Freq PRN Reason Stop Dose Admin Fidaxomicin 200 mg 05/29/24 21:00 05/31/24 08:01 Fidaxomicin 200 Mg Tablet PO 200 mg Q12HR ALEJANDRO Administration Sodium Chloride 1,000 mls @ 75 mls/hr 05/29/24 16:15 05/31/24 13:10 Saline 0.9% IV 75 mls/hr .[id number] ALEJANDRO Administration Midodrine 5 mg 05/30/24 12:30 05/31/24 12:22 Midodrine 5 Mg Tab PO Not Given AC-TID [facility] Miscellaneous Information 0 each 05/30/24 14:31 Warfarin Per Pharmacy MISCELLANE DIRECTED PRN PER PROTOCOL Miscellaneous Information 1 each 05/31/24 14:17 Potassium Replacement Protocol 1 Each Misc MISCELLANE DAILY PRN Per Protocol Protocol Multi-Ingredient Ointment 1 applic 05/30/24 03:01 05/30/24 03:39 Zinc Oxide 20% Oint 28.4 Gm Tube TOPICAL 1 applic TID PRN Administration Rash Protocol Pantoprazole Sodium 40 mg 05/31/24 07:30 05/31/24 06:15 Pantoprazole 40 Mg Tablet PO 40 mg AC-BRKFST ALEJANDRO Administration Tamsulosin HCl 0.4 mg 05/30/24 18:30 05/30/24 17:45 Tamsulosin 0.4 Mg Cap.Er.24h PO 0.4 mg PC-SUPPER ALEJANDRO Administration Vancomycin HCl 500 mg 05/30/24 13:00 05/31/24 12:23 Vancomycin 125 Mg Capsule PO 500 mg QID [facility] Administration Protocol Warfarin Sodium 2.5 mg 05/31/24 21:00 Warfarin 2.5 Mg Tab PO SUTUTH@2100 [facility] Protocol Warfarin Sodium 5 mg 05/30/24 21:00 05/30/24 21:04 Warfarin 5 Mg Tab PO 5 mg MOWEFRSA@2100 [facility] Administration Protocol Intake and Output 05/31/24 05/31/24 05/31/24 06:59 14:59 22:59 Intake Total 925 Output Total 2 Balance 925 -2 Intake: Intake, IV Titration 925 Amount Sodium Chloride 0.9% 1, 925 000 ml @ 75 mls/hr IV . [id number] [facility] Rx#:[id number] Output: Urine 2 Other: Voiding Method Diaper # Voids 4 # Bowel Movements 4 2 05/31/24 03:40 05/31/24 03:40
--- NOTE | 2024-05-31 15:41 | P.PN ---
Subjective Progress Note Date: 05/31/24 Principal diagnosis: Reason for follow-up recent C. difficile colitis Patient is a 83-year-old male with a past medical history significant for hypertension hyperlipidemia prostate disorder reflux CVA TIA and recurrent C. difficile colitis presented to hospital worsening diarrhea has been diagnosed with a C. difficile abdominal pelvis did not show any acute changes. On today's evaluation that is 05/31/2024, Patient is afebrile this morning patient denies having any chest pain shortness of breath or cough, the patient is currently on room air, patient denies any abdominal pain, no nausea no vomiting and mention of diarrhea has slowed on. Patient white count is down to 15.67 creatinine is 1.4 Objective - Vital Signs Vital signs: Vital Signs Temp 98.1 F 05/31/24 14:41 Pulse 58 L 05/31/24 14:41 Resp 17 05/31/24 14:41 BP 112/57 05/31/24 14:41 Pulse Ox 94 L 05/31/24 14:41 FiO2 Intake & Output 05/30/24 05/31/24 05/31/24 18:59 06:59 18:59 Intake Total 925 Output Total 2 Balance 925 -2 Weight 129.274 kg Intake: Intake, IV Titration 925 Amount Sodium Chloride 0.9% 1, 925 000 ml @ 75 mls/hr IV . [id number] [facility] Rx#:[id number] Output: Urine 2 Other: Voiding Method Diaper Diaper Diaper Incontinent # Voids 2 4 # Bowel Movements 2 4 2 - Exam GENERAL DESCRIPTION: An elderly male lying in bed in no distress RESPIRATORY SYSTEM: Unlabored breathing , decreased breath sounds at bases HEART: S1 S2 regular rate and rhythm , ABDOMEN: Soft , no tenderness EXTREMITIES: No edema feet - Labs CBC & Chem 7: 05/31/24 03:40 05/31/24 03:40 Labs: Abnormal Lab Results - Last 24 Hours (Table) 05/31/24 05/31/24 05/31/24 Range/Units 03:40 03:40 03:40 WBC 15.67 H (4.50-10.00) X 10*3/uL RBC 4.22 L (4.40-5.60) X 10*6/uL Hgb 11.3 L (13.0-17.0) g/dL Hct 35.0 L (39.6-50.0) % MCH 26.8 L (27.0-32.0) pg RDW 16.8 H (11.5-14.5) % PT 16.9 H (10.0-12.5) sec INR 1.7 H (<1.2) Potassium 3.3 L (3.5-5.5) mmol/L Chloride 110 H (96-109) mmol/L Carbon Dioxide 16.9 L (21.6-31.8) mmol/L Anion Gap 13.10 H (4.00-12.00) mmol/L Est GFR (CKD-EPI) 50 L (>=60) Calcium 7.9 L (8.7-10.3) mg/dL Microbiology - Last 24 Hours (Table) 05/29/24 15:52 Blood Culture - Preliminary Blood Assessment and Plan (1) C. difficile colitis Current Visit: Yes Status: Acute Code(s): A04.72 - ENTEROCOLITIS D/T CLOSTRIDIUM DIFFICILE, NOT SPCF RECUR SNOMED Code(s): 147674284 (2) Sepsis Current Visit: No Status: Acute Code(s): A41.9 - SEPSIS, UNSPECIFIED ORGANISM SNOMED Code(s): 27433754 (3) Leukocytosis Current Visit: No Status: Acute Code(s): D72.829 - ELEVATED WHITE BLOOD CELL COUNT, UNSPECIFIED SNOMED Code(s): 329360641 Plan: 1patient was in the hospital with sepsis in this patient who did have significant evaded white count elevated lactic acid meeting criteria for SIRS source is severe C. difficile colitis in this patient did have recurrent episode of C. difficile colitis with last episode being treated with oral Dificid and did not have any other antibiotic exposure 2patient to continue with vancomycin to 500 mg p.o. every 6 hours keeping in mind recurrent and severe episode and also encouraged to increase his yogurt intake Dictation was produced using [employer] dictation software. please excuse any grammatical, word or spelling errors.
[2024-05-31] MEDS: WARFARIN 2.5 MG TAB PO SCH (22:25)
[2024-05-31] MEDS: POTASSIUM CHLORIDE ER 20 MEQ TAB.ER PO SCH (22:26)
[2024-06-01 04:22] LABS: INR 1.9 (<1.2); Prothrombin Time 19.6 sec (10.0-12.5)
[2024-06-01 08:31] LABS: HCT 33.6 % (39.6-50.0); HGB 10.9 g/dL (13.0-17.0); MCH 27.2 pg (27.0-32.0); MCHC 32.4 g/dL (32.0-37.0); MCV 83.8 FL (80.0-97.0); Mean Platelet Volume 9.8 FL (9.5-12.2); NRBC Per 100 WBC 0 X 10*3/uL (0.00-0.01); Platelet Count 374 X 10*3/uL (140-440); RBC 4.01 X 10*6/uL (4.40-5.60); RDW 16.6 % (11.5-14.5); WBC 10.39 X 10*3/uL (4.50-10.00)
--- NOTE | 2024-06-01 12:29 | P.PN ---
Subjective Progress Note Date: 06/01/24 Principal diagnosis: Reason for follow-up recent C. difficile colitis Patient is a 83-year-old male with a past medical history significant for hypertension hyperlipidemia prostate disorder reflux CVA TIA and recurrent C. difficile colitis presented to hospital worsening diarrhea has been diagnosed with a C. difficile abdominal pelvis did not show any acute changes. On today's evaluation that is 06/01/2024,the patient denies any fever or any chills, patient is breathing comfortably on room air, the patient denies chest pain shortness of breath and no significant cough, patient denies abdominal pain, no nausea vomiting still having some diarrhea does slow down but watery. The patient white normalized to 10.39 blood culture currently pending Objective - Vital Signs Vital signs: Vital Signs Temp 98.2 F 06/01/24 07:45 Pulse 77 06/01/24 07:45 Resp 16 06/01/24 07:45 BP 130/68 06/01/24 07:45 Pulse Ox 95 06/01/24 07:45 FiO2 Intake & Output 05/31/24 06/01/24 06/01/24 18:59 06:59 18:59 Intake Total 900 Output Total 2 2 Balance -2 898 Intake: Intake, IV Titration 900 Amount Sodium Chloride 0.9% 1, 900 000 ml @ 75 mls/hr IV . [id number] [facility] Rx#:[id number] Output: Urine 2 Stool 2 Other: Voiding Method Diaper Diaper Incontinent # Voids 0 3 # Bowel Movements 0 4 - Exam GENERAL DESCRIPTION: An elderly male lying in bed in no distress RESPIRATORY SYSTEM: Unlabored breathing , decreased breath sounds at bases HEART: S1 S2 regular rate and rhythm , ABDOMEN: Soft , no tenderness EXTREMITIES: No edema feet - Labs CBC & Chem 7: 06/01/24 03:41 05/31/24 03:40 Labs: Abnormal Lab Results - Last 24 Hours (Table) 06/01/24 06/01/24 Range/Units 03:41 03:41 WBC 10.39 H (4.50-10.00) X 10*3/uL RBC 4.01 L (4.40-5.60) X 10*6/uL Hgb 10.9 L (13.0-17.0) g/dL Hct 33.6 L (39.6-50.0) % RDW 16.6 H (11.5-14.5) % PT 19.6 H (10.0-12.5) sec INR 1.9 H (<1.2) Microbiology - Last 24 Hours (Table) 05/29/24 15:52 Blood Culture - Preliminary Blood Assessment and Plan (1) C. difficile colitis Current Visit: Yes Status: Acute Code(s): A04.72 - ENTEROCOLITIS D/T CLOSTRIDIUM DIFFICILE, NOT SPCF RECUR SNOMED Code(s): 766061519 (2) Sepsis Current Visit: No Status: Acute Code(s): A41.9 - SEPSIS, UNSPECIFIED ORGANISM SNOMED Code(s): 56577348 (3) Leukocytosis Current Visit: No Status: Acute Code(s): D72.829 - ELEVATED WHITE BLOOD CELL COUNT, UNSPECIFIED SNOMED Code(s): 282769317 Plan: 1patient was in the hospital with sepsis in this patient who did have significant evaded white count elevated lactic acid meeting criteria for SIRS source is severe C. difficile colitis in this patient did have recurrent episode of C. difficile colitis with last episode being treated with oral Dificid and did not have any other antibiotic exposure 2patient to continue with vancomycin to 500 mg p.o. every 6 hours we will add Questran for symptomatic relief 3dauter has been provided names for the Bony Whitfield GI physician doing stool transplant so she can make arrangement for it Dictation was produced using [employer] dictation software. please excuse any grammatical, word or spelling errors. Time with Patient: Less than 30
[2024-06-01] MEDS: CHOLESTYRAMINE (WITH SUGAR) 4 GM PACKET PO SCH (14:03)
--- NOTE | 2024-06-01 14:21 | CDI ---
Documentation Clarification Form Date: 06/01/2024 01:50:46 PM From: Shaneka Soriano RN, CCDS Phone: [phone] Admit Date: 05/29/2024 03:43:00 PM Patient Name: Santosh Melton Visit Number: [id number] Discharge Date: ATTENTION: The Clinical Documentation Specialists (CDI) and [facility] Coding Staff appreciate your assistance in clarifying documentation. Please respond to the clarification below the line at the bottom and electronically sign. The CDI & [facility] Coding staff will review the response and follow-up if needed. Please note: Queries are made part of the Legal Health Record. If you have any questions, please contact the author of this message via ITS. Doctor/Provider: Cedrick Villarreal Sepsis is documented in the ID and Cardiology consult which may lack sufficient clinical evidence/support in the medical record. Additional clarification is requested. History/Risk Factors: Atrial Fibrillation, Cancer, Heart Failure, CVA/TIA, GERD/Reflux, Hyperlipidemia, Hypertension, Prostate Disorder Clinical Indicators:83-year-old male presenting to the emergency department chief complaint of consistent diarrhea, fevers and nausea. He was ruled in for C difficile colitis 05/29 VS: 106/53 77 16 98.4 95% RA, 108/44 60 18, 96/61 55 20 98% RA 05/29 Labs: WBC 29.2, Neutrophils 26.5, BUN 25, CR 1.59 GFR 40, Lactic acid 1.4; C. difficile -Positive A 05/30 ID: patient was in the hospital with sepsis in this patient who did have significant evaded white count elevated lactic acid meeting criteria for SIRS source is severe C. difficile colitis in this patient did have recurrent episode of C. difficile colitis with last episode being treated with Dificid. 05/31 Cardiology consult: He presented to the hospital with fever and diarrhea. Small pericardial effusion, no signs of tamponade physiology. Chronic atrial fibrillation, Status post pacemaker, currently in V-paced rhythm C. difficile colitis Sepsis Treatment: Vancomycin 500 MG PO Q 6 HRS Encourage to increase his yogurt intake Contact isolation Questran 4 MG PO BID .9NS @75 ML/HR Please clarify if Sepsis is a valid diagnosis? [ x ] No, Sepsis is ruled out [ ] Yes, Sepsis is present as evidence by (additional clinical support): [ ] Other (please specify diagnosis) [ ] Unable to determine (Template Last Revised: December 2023) MTDD
[2024-06-01 14:34] LABS: Amorphous Sediment,Urine Occasional /hpf; Appearance,Urine Cloudy (Clear); Bilirubin,Urine Negative (Negative); Blood,Urine Small (Negative); Color,Urine Light Yellow; Glucose,Urine (UA) Negative (Negative); Ketones,Urine Negative (Negative); Leukocyte Esterase,Urine Large (Negative); Nitrite,Urine Negative (Negative); PH, Urine 5.5 (5.0-8.0); Protein,Urine Trace (Negative); RBC,Urine 1 /hpf (0-5); Specific Gravity,Urine 1.021 (1.001-1.035); Squamous Epithelial Cell,Urine 1 /hpf (0-4); Urobilinogen,Urine <2.0 mg/dL (<2.0); WBC,Urine 79 /hpf (0-5)
--- NOTE | 2024-06-01 14:59 | P.PN ---
Subjective Progress Note Date: 06/01/24 Principal diagnosis: Hospital course: Patient is a 83-year-old male with past medical history of hypertension, hyperlipidemia, CVA TIA, heart failure, history of recurrent UTIs as well as recent admission for C. difficile colitis with failure of outpatient treatment who presented to the ED yesterday with diarrhea and fever. He mentions being in the hospital in April for C. difficile colitis and he was discharged home with for fidaxomicin 20 mg p.o. every 12 hours. He completed the course of medications and was feeling better. He stopped taking the medication a week ago and since the past 2-3 days he has experienced diarrhea along with fever. He tried taking OTC diarrhea relief medication but it didn't help with his symptoms.He also complains of pain in left lower quadrant that is brought on with his diarrhea episodes. He contacted Dr. Castillo who asked him to go to the ER. Denies chills, chest pain, shortness of breath, cough, dysuria, hematuria, hematochezia, melena, nausea, vomiting. ED documentation reviewed and case discussed with ED provider. In the ED he was started on fidaxomicin 200 mg p.o. every 12 hours and vancomycin 125 mg p.o. 4 times daily and 0.9 normal saline at 75 mL/h as well as given ceftriaxone milligrams once. Vitals on admission T 98.4 F, P 77 bpm, BP 106/53, O2 sat 95% on room air Labs on admission WBC 29.2, BUN 25, creatinine 1.59, lactic acid 3.[address]IA positive [address] of abdomen and pelvis showed no acute changes within the abdomen or pelvis, stable moderate cardiomegaly with stable moderate pericardial effusion, stable renal calcifications and moderate left renal atrophy. 05/31/2024 Patient is feeling better today. Appetite is better. Tolerated p.o. intake. Denied any nausea or vomiting. Still complaining of loose stools, had 6-7 loose stools overnight, 2 loose stools since morning. Afebrile, heart rate 62, respiratory rate 17, blood pressure 132/66, saturating 96% on room air. WBCs down to 15.6 as compared to 29.2 yesterday. Hemoglobin 11.3, platelet 354. INR 1.7. Sodium 140, potassium 3.3, BUN 13, creatinine 1.4. Calcium 7.9. Remains on fidaxomicin and p.o. vancomycin, also on Coumadin for atrial fibrillation. Cardiology and infectious disease consulted. 06/01/24: Patient seen and examined today.He mentions having two episodes of diarrhea today, but notes an improvement. Also complains of lower abdominal cramps while having bowel movements or passing flatus. Labs today show hemoglobin 10.9, WBC 10.39, PT 19.6, INR 1.9. Blood culture shows no growth after 48 hours. Review of systems: Pertinent positives and negatives as discussed in HPI, a complete review of systems was performed and all other systems are negative. Vitals: Signs Reviewed Physical examination: General: nontoxic, no distress, appears at stated age Derm: warm, dry, intact Head: atraumatic, normocephalic, symmetric Eyes: EOMI, anicteric sclera Mouth: no lip lesion, mucus membranes moist Cardiovascular: S1 S2 reg, no murmur Lungs: CTA bilateral, no rhonchi, no rales, no accessory muscle use Abdominal: soft, non-tender to palpataion Extremities: No cyanosis, clubbing, or pedal edema. Neuro: Alert, Oriented, Gross neurological examination did not reveal any focal deficits. Psych: well appearing, appropriate affect Assessment and plan: Patient is an 83-year-old male with past medical history of heart failure, history of recurrent UTIs as well as recent admission for C. difficile colitis with failed outpatient treatment with fidaxomicin. Presented to the ED with diarrhea and fever. He has been admitted for further management of severe recurrent C. difficile colitis. #. Severe C. difficile infection: #. Recurrent C. difficile colitis Blood cultures shows no growth after 48 hours. Continue vancomycin 500 mg 4 times daily IV fluids 0.9 normal saline at 75 ml/hr Cholestyramine 4 g p.o. twice daily for symptomatic relief Plan for fecal transplant at [facility] per ID Encourage to increase yogurt intake Monitor BMP ID following PT and OT consulted #. PARK, prerenal, secondary to volume loss with diarrhea Continue 0.9 normal saline 75 mL/h Monitor BMP, Mg, Phosphorous #. Hypokalemia Potassium replacement per protocol #. Paroxysmal atrial fibrillation, rate controlled: Continue anticoagulation with warfarin 2.5 mg PO Saturday, Saturday, and 5 mg PO Saturday, Saturday, Saturday, Saturday Pradaxa on discharge if patient is willing #. Pericardial effusion on CTAP No sign or symptom of tamponade. Echocardiogram on 05/30/2024 shows EF 55 to 60%, mild concentric LVH, mild RV dilatation with mildly reduced systolic function. PPM wire noticed in RV and RA. Severe RA dilatation, severe LA dilatation. Mild MR, mild AI, mild TR. Mi ld pericardial effusion with no signs of tamponade physiology Monitor vitals closely Cardiology is following #. Rash on buttocks Continue zinc oxide 20% ointment 1 application topically 3 times daily as needed #. History of BPH Continue Tamsulosin 0.4 mg PO F: 0.9 normal saline at 75 ml/hr E: K replacement per protocol N: Heart healthy diet A: DVT prophylaxis: Warfarin PO GI prophylaxis: Pantoprazole 40 mg p.o. Attestation: I have personally seen and examined the patient with Resident, reviewed the documentation and participated and agree with the assessment and plan as written. Benjamin Campos MD Objective - Vital Signs Vital signs: Vital Signs Temp 98.2 F 06/01/24 07:45 Pulse 77 06/01/24 07:45 Resp 16 06/01/24 07:45 BP 130/68 06/01/24 07:45 Pulse Ox 95 06/01/24 07:45 FiO2 Intake & Output 05/31/24 06/01/24 06/01/24 18:59 06:59 18:59 Intake Total 900 Output Total 2 2 Balance -2 898 Intake: Intake, IV Titration 900 Amount Sodium Chloride 0.9% 1, 900 000 ml @ 75 mls/hr IV . [id number] ALEJANDRO Rx#:[id number] Output: Urine 2 Stool 2 Other: Voiding Method Diaper Diaper Incontinent # Voids 0 3 # Bowel Movements 0 4 - Labs CBC & Chem 7: 06/02/24 02:58 06/02/24 02:58 Labs: Abnormal Lab Results - Last 24 Hours (Table) 05/31/24 05/31/24 06/01/24 Range/Units 03:40 03:40 03:41 WBC 15.67 H 10.39 H (4.50-10.00) X 10*3/uL RBC 4.22 L 4.01 L (4.40-5.60) X 10*6/uL Hgb 11.3 L 10.9 L (13.0-17.0) g/dL Hct 35.0 L 33.6 L (39.6-50.0) % MCH 26.8 L (27.0-32.0) pg RDW 16.8 H 16.6 H (11.5-14.5) % PT (10.0-12.5) sec INR (<1.2) Potassium 3.3 L (3.5-5.5) mmol/L Chloride 110 H (96-109) mmol/L Carbon Dioxide 16.9 L (21.6-31.8) mmol/L Anion Gap 13.10 H (4.00-12.00) mmol/L Est GFR (CKD-EPI) 50 L (>=60) Calcium 7.9 L (8.7-10.3) mg/dL 06/01/24 Range/Units 03:41 WBC (4.50-10.00) X 10*3/uL RBC (4.40-5.60) X 10*6/uL Hgb (13.0-17.0) g/dL Hct (39.6-50.0) % MCH (27.0-32.0) pg RDW (11.5-14.5) % PT 19.6 H (10.0-12.5) sec INR 1.9 H (<1.2) Potassium (3.5-5.5) mmol/L Chloride (96-109) mmol/L Carbon Dioxide (21.6-31.8) mmol/L Anion Gap (4.00-12.00) mmol/L Est GFR (CKD-EPI) (>=60) Calcium (8.7-10.3) mg/dL Microbiology - Last 24 Hours (Table) 05/29/24 15:52 Blood Culture - Preliminary Blood
[2024-06-01 22:43] LABS: BUN/Creat Ratio 16.46 Ratio (12.00-20.00); Blood Urea Nitrogen 21.4 mg/dL (9.0-27.0); Calcium 8.1 mg/dL (8.7-10.3); Carbon Dioxide 16.4 mmol/L (21.6-31.8); Chloride 113 mmol/L (96-109); Glucose 102 mg/dL (70-110); Potassium 3.6 mmol/L (3.5-5.5); Sodium 140 mmol/L (135-145)
[2024-06-02 03:55] LABS: Prothrombin Time 20.4 sec (10.0-12.5)
[2024-06-02 09:16] LABS: HCT 33.3 % (39.6-50.0); HGB 10.8 g/dL (13.0-17.0); MCH 26.6 pg (27.0-32.0); MCHC 32.4 g/dL (32.0-37.0); Mean Platelet Volume 9.8 FL (9.5-12.2); NRBC Per 100 WBC 0 X 10*3/uL (0.00-0.01); Platelet Count 346 X 10*3/uL (140-440); RBC 4.06 X 10*6/uL (4.40-5.60); RDW 16.7 % (11.5-14.5); WBC 9.73 X 10*3/uL (4.50-10.00)
[2024-06-02 09:19] LABS: BUN/Creat Ratio 13.09 Ratio (12.00-20.00); Blood Urea Nitrogen 14.4 mg/dL (9.0-27.0); Carbon Dioxide 17.4 mmol/L (21.6-31.8); Chloride 113 mmol/L (96-109); Glucose 107 mg/dL (70-110); Magnesium 1.8 mg/dL (1.5-2.4); Phosphorus 3.1 mg/dL (2.4-5.1); Potassium 3.6 mmol/L (3.5-5.5); Sodium 141 mmol/L (135-145)
--- NOTE | 2024-06-02 12:09 | P.PN ---
Subjective Progress Note Date: 06/02/24 Principal diagnosis: Hospital course: Patient is a 83-year-old male with past medical history of hypertension, hyperlipidemia, CVA TIA, heart failure, history of recurrent UTIs as well as recent admission for C. difficile colitis with failure of outpatient treatment who presented to the ED yesterday with diarrhea and fever. He mentions being in the hospital in April for C. difficile colitis and he was discharged home with for fidaxomicin 20 mg p.o. every 12 hours. He completed the course of medications and was feeling better. He stopped taking the medication a week ago and since the past 2-3 days he has experienced diarrhea along with fever. He tried taking OTC diarrhea relief medication but it didn't help with his symptoms.He also complains of pain in left lower quadrant that is brought on with his diarrhea episodes. He contacted Dr. Castillo who asked him to go to the ER. Denies chills, chest pain, shortness of breath, cough, dysuria, hematuria, hematochezia, melena, nausea, vomiting. ED documentation reviewed and case discussed with ED provider. In the ED he was started on fidaxomicin 200 mg p.o. every 12 hours and vancomycin 125 mg p.o. 4 times daily and 0.9 normal saline at 75 mL/h as well as given ceftriaxone milligrams once. Vitals on admission T 98.4 F, P 77 bpm, BP 106/53, O2 sat 95% on room air Labs on admission WBC 29.2, BUN 25, creatinine 1.59, lactic acid 3.7 C[address] EIA positive CT of abdomen and pelvis showed no acute changes within the abdomen or pelvis, stable moderate cardiomegaly with stable moderate pericardial effusion, stable renal calcifications and moderate left renal atrophy. 05/31/2024 Patient is feeling better today. Appetite is better. Tolerated p.o. intake. Denied any nausea or vomiting. Still complaining of loose stools, had 6-7 loose stools overnight, 2 loose stools since morning. Afebrile, heart rate 62, respiratory rate 17, blood pressure 132/66, saturating 96% on room air. WBCs down to 15.6 as compared to 29.2 yesterday. Hemoglobin 11.3, platelet 354. INR 1.7. Sodium 140, potassium 3.3, BUN 13, creatinine 1.4. Calcium 7.9. Remains on fidaxomicin and p.o. vancomycin, also on Coumadin for atrial fibrillation. Cardiology and infectious disease consulted. 06/01/24: Patient seen and examined today.He mentions having two episodes of diarrhea today, but notes an improvement. Also complains of lower abdominal cramps while having bowel movements or passing flatus. Labs today show hemoglobin 10.9, WBC 10.39, PT 19.6, INR 1.9. Blood culture shows no growth after 48 hours. 06/02/24: Patient seen and examined at bedside today. He had 1 bowel movements yesterday night and 1 bowel movement today morning. The consistency is still very loose but the frequency has decreased. Labs today show Mg 1.8, Phosphorous 3.1, hemoglobin 10.8, sodium 141, potassium 3.6, PT 20.4, INR 2.0. UA done yest erday shows trace protein, small blood, large leukocyte esterase, 79 WBCs and occasional amorphous sediment. Blood culture shows no growth after 72 hours. Review of systems: Pertinent positives and negatives as discussed in HPI, a complete review of systems was performed and all other systems are negative. Vitals: Signs Reviewed Physical examination: General: nontoxic, no distress, appears at stated age Derm: warm, dry, intact Head: atraumatic, normocephalic, symmetric Eyes: EOMI, anicteric sclera Mouth: no lip lesion, mucus membranes moist Cardiovascular: S1 S2 reg, no murmur Lungs: CTA bilateral, no rhonchi, no rales, no accessory muscle use Abdominal: soft, non-tender to palpataion Extremities: No cyanosis, clubbing, or pedal edema. Neuro: Alert, Oriented, Gross neurological examination did not reveal any focal deficits. Psych: well appearing, appropriate affect Assessment and plan: Patient is an 83-year-old male with past medical history of heart failure, history of recurrent UTIs as well as recent admission for C. difficile colitis with failed outpatient treatment with fidaxomicin. Presented to the ED with diarrhea and fever. He has been admitted for further management of severe recurrent C. difficile colitis. #. Severe C. difficile infection: #. Recurrent C. difficile colitis Blood cultures shows no growth after 72 hours. Continue vancomycin 500 mg 4 times daily IV fluids 0.9 normal saline at 75 ml/hr Cholestyramine 4 g p.o. twice daily for symptomatic relief Plan for [facility] at [facility] per ID Encourage to increase yogurt intake Monitor BMP, Mg, Phosphorous ID following PT and OT consulted #. Hypokalemia K 3.6 Potassium replacement per protocol #. Paroxysmal atrial fibrillation, rate controlled: Continue anticoagulation with warfarin 2.5 mg PO Saturday, Saturday, and 5 mg PO Saturday, Saturday, Saturday, Saturday Pradaxa on discharge if patient is willing #. Pericardial effusion on CTAP No sign or symptom of tamponade. Echocardiogram on 05/30/2024 shows EF 55 to 60%, mild concentric LVH, mild RV dilatation with mildly reduced systolic function. PPM wire noticed in RV and RA. Severe RA dilatation, severe LA dilatation. Mild MR, mild AI, mild TR. Mild pericardial effusion with no signs of tamponade physiology Monitor vitals closely #. Rash on buttocks Continue zinc oxide 20% ointment 1 application topically 3 times daily as needed #. History of BPH Continue Tamsulosin 0.4 mg PO #. PARK, prerenal, secondary to volume loss with diarrhea, resolved BUN 14.4, creatinine 1.1 F: 0.9 normal saline at 75 ml/hr E: K replacement per protocol N: Heart healthy diet A: DVT prophylaxis: Warfarin PO GI prophylaxis: Pantoprazole 40 mg p.o. Attestation: I have personally seen and examined the patient with Resident, reviewed the documentation and participated and agree with the assessment and plan as written. Benjamin Campos MD Objective - Vital Signs Vital signs: Vital Signs Temp 98 F 06/02/24 07:22 Pulse 60 06/02/24 07:22 Resp 18 06/02/24 01:49 BP 167/67 06/02/24 07:22 Pulse Ox 94 L 06/02/24 07:22 FiO2 Intake & Output 06/01/24 06/02/24 06/02/24 18:59 06:59 18:59 Output Total 502 Balance -502 Output: Urine 500 Stool 2 Other: Voiding Method Diaper Diaper Incontinent Incontinent - Labs CBC & Chem 7: 06/02/24 02:58 06/02/24 02:58 Labs: Abnormal Lab Results - Last 24 Hours (Table) 06/01/24 06/01/24 06/01/24 Range/Units 03:41 03:41 14:22 WBC 10.39 H (4.50-10.00) X 10*3/uL RBC 4.01 L (4.40-5.60) X 10*6/uL Hgb 10.9 L (13.0-17.0) g/dL Hct 33.6 L (39.6-50.0) % RDW 16.6 H (11.5-14.5) % PT (10.0-12.5) sec INR (<1.2) Chloride 113 H (96-109) mmol/L Carbon Dioxide 16.4 L (21.6-31.8) mmol/L Est GFR (CKD-EPI) 55 L (>=60) Calcium 8.1 L (8.7-10.3) mg/dL Urine Protein Trace H (Negative) Urine Blood Small H (Negative) Ur Leukocyte Esterase Large H (Negative) Urine WBC 79 H (0-5) /hpf Amorphous Sediment Occasional H (None) /hpf 06/02/24 Range/Units 02:58 WBC (4.50-10.00) X 10*3/uL RBC (4.40-5.60) X 10*6/uL Hgb (13.0-17.0) g/dL Hct (39.6-50.0) % RDW (11.5-14.5) % PT 20.4 H (10.0-12.5) sec INR 2.0 H (<1.2) Chloride (96-109) mmol/L Carbon Dioxide (21.6-31.8) mmol/L Est GFR (CKD-EPI) (>=60) Calcium (8.7-10.3) mg/dL Urine Protein (Negative) Urine Blood (Negative) Ur Leukocyte Esterase (Negative) Urine WBC (0-5) /hpf Amorphous Sediment (None) /hpf Microbiology - Last 24 Hours (Table) 05/29/24 15:52 Blood Culture - Preliminary Blood
--- NOTE | 2024-06-02 13:07 | P.PN ---
Subjective Progress Note Date: 06/02/24 Principal diagnosis: Reason for follow-up recent C. difficile colitis Patient is a 83-year-old male with a past medical history significant for hypertension hyperlipidemia prostate disorder reflux CVA TIA and recurrent C. difficile colitis presented to hospital worsening diarrhea has been diagnosed with a C. difficile abdominal pelvis did not show any acute changes. On today's evaluation that is 06/02/2024,the patient remains to be afebrile, patient is on room air not requiring supplemental oxygen and denies any shortness of breath no chest pain or cough.Patient denies having any nausea or vomiting, no abdominal pain and diarrhea has slowed down. Patient white count is 9.73 creatinine is 1.1 Objective - Vital Signs Vital signs: Vital Signs Temp 98 F 06/02/24 07:22 Pulse 60 06/02/24 07:22 Resp 18 06/02/24 01:49 BP 167/67 06/02/24 07:22 Pulse Ox 94 L 06/02/24 07:22 FiO2 Intake & Output 06/01/24 06/02/24 06/02/24 18:59 06:59 18:59 Output Total 502 Balance -502 Output: Urine 500 Stool 2 Other: Voiding Method Diaper Diaper Incontinent Incontinent Incontinent # Voids 1 # Bowel Movements 1 - Exam GENERAL DESCRIPTION: An elderly male lying in bed in no distress RESPIRATORY SYSTEM: Unlabored breathing , decreased breath sounds at bases HEART: S1 S2 regular rate and rhythm , ABDOMEN: Soft , no tenderness EXTREMITIES: No edema feet - Labs CBC & Chem 7: 06/02/24 02:58 06/02/24 02:58 Labs: Abnormal Lab Results - Last 24 Hours (Table) 06/01/24 06/01/24 06/02/24 Range/Units 03:41 14:22 02:58 RBC (4.40-5.60) X 10*6/uL Hgb (13.0-17.0) g/dL Hct (39.6-50.0) % MCH (27.0-32.0) pg RDW (11.5-14.5) % PT 20.4 H (10.0-12.5) sec INR 2.0 H (<1.2) Chloride 113 H (96-109) mmol/L Carbon Dioxide 16.4 L (21.6-31.8) mmol/L Est GFR (CKD-EPI) 55 L (>=60) Calcium 8.1 L (8.7-10.3) mg/dL Urine Protein Trace H (Negative) Urine Blood Small H (Negative) Ur Leukocyte Esterase Large H (Negative) Urine WBC 79 H (0-5) /hpf Amorphous Sediment Occasional H (None) /hpf 06/02/24 06/02/24 Range/Units 02:58 02:58 RBC 4.06 L (4.40-5.60) X 10*6/uL Hgb 10.8 L (13.0-17.0) g/dL Hct 33.3 L (39.6-50.0) % MCH 26.6 L (27.0-32.0) pg RDW 16.7 H (11.5-14.5) % PT (10.0-12.5) sec INR (<1.2) Chloride 113 H (96-109) mmol/L Carbon Dioxide 17.4 L (21.6-31.8) mmol/L Est GFR (CKD-EPI) (>=60) Calcium 8.0 L (8.7-10.3) mg/dL Urine Protein (Negative) Urine Blood (Negative) Ur Leukocyte Esterase (Negative) Urine WBC (0-5) /hpf Amorphous Sediment (None) /hpf Microbiology - Last 24 Hours (Table) 05/29/24 15:52 Blood Culture - Preliminary Blood Assessment and Plan (1) C. difficile colitis Current Visit: Yes Status: Acute Code(s): A04.72 - ENTEROCOLITIS D/T CLOSTRIDIUM DIFFICILE, NOT SPCF RECUR SNOMED Code(s): 175452029 (2) Sepsis Current Visit: No Status: Acute Code(s): A41.9 - SEPSIS, UNSPECIFIED ORGANISM SNOMED Code(s): 64423993 (3) Leukocytosis Current Visit: No Status: Acute Code(s): D72.829 - ELEVATED WHITE BLOOD CELL COUNT, UNSPECIFIED SNOMED Code(s): 980828939 Plan: 1patient was in the hospital with sepsis in this patient who did have significant evaded white count elevated lactic acid meeting criteria for SIRS source is severe C. difficile colitis in this patient did have recurrent episode of C. difficile colitis with last episode being treated with oral Dificid and did not have any other antibiotic exposure 2patient did have improvement of the white count to continue with vancomycin to 500 mg p.o. every 6 hours along with Questran for symptomatic relief 3dcarlos is currently working on arrangement for stool transplant at [facility] referral were provided per the request Dictation was produced using [employer] dictation software. please excuse any grammatical, word or spelling errors. Time with Patient: Less than 30
[2024-06-03 04:13] LABS: INR 2.7 (<1.2); Prothrombin Time 26.2 sec (10.0-12.5)
[2024-06-03 08:34] LABS: HCT 34.4 % (39.6-50.0); HGB 10.8 g/dL (13.0-17.0); MCHC 31.4 g/dL (32.0-37.0); MCV 82.7 FL (80.0-97.0); Mean Platelet Volume 9.6 FL (9.5-12.2); NRBC Per 100 WBC 0 X 10*3/uL (0.00-0.01); Platelet Count 361 X 10*3/uL (140-440); RBC 4.16 X 10*6/uL (4.40-5.60); RDW 16.6 % (11.5-14.5); WBC 11.07 X 10*3/uL (4.50-10.00)
[2024-06-03 08:42] LABS: Blood Urea Nitrogen 12.1 mg/dL (9.0-27.0); Calcium 7.9 mg/dL (8.7-10.3); Carbon Dioxide 18.6 mmol/L (21.6-31.8); Chloride 110 mmol/L (96-109); Glucose 102 mg/dL (70-110); Potassium 3.7 mmol/L (3.5-5.5); Sodium 138 mmol/L (135-145)
--- NOTE | 2024-06-03 14:59 | P.PN ---
Subjective Progress Note Date: 06/03/24 Principal diagnosis: Hospital course: Patient is a 83-year-old male with past medical history of hypertension, hyperlipidemia, CVA TIA, heart failure, history of recurrent UTIs as well as recent admission for C. difficile colitis with failure of outpatient treatment who presented to the ED yesterday with diarrhea and fever. He mentions being in the hospital in April for C. difficile colitis and he was discharged home with for fidaxomicin 20 mg p.o. every 12 hours. He completed the course of medications and was feeling better. He stopped taking the medication a week ago and since the past 2-3 days he has experienced diarrhea along with fever. He tried taking OTC diarrhea relief medication but it didn't help with his symptoms.He also complains of pain in left lower quadrant that is brought on with his diarrhea episodes. He contacted Dr. Castillo who asked him to go to the ER. Denies chills, chest pain, shortness of breath, cough, dysuria, hematuria, hematochezia, melena, nausea, vomiting. ED documentation reviewed and case discussed with ED provider. In the ED he was started on fidaxomicin 200 mg p.o. every 12 hours and vancomycin 125 mg p.o. 4 times daily and 0.9 normal saline at 75 mL/h as well as given ceftriaxone milligrams once. Vitals on admission T 98.4 F, P 77 bpm, BP 106/53, O2 sat 95% on room air Labs on admission WBC 29.2, BUN 25, creatinine 1.59, lactic acid 3.[address] positive [address] of abdomen and pelvis showed no acute changes within the abdomen or pelvis, stable moderate cardiomegaly with stable moderate pericardial effusion, stable renal calcifications and moderate left renal atrophy. 05/31/2024 Patient is feeling better today. Appetite is better. Tolerated p.o. intake. Denied any nausea or vomiting. Still complaining of loose stools, had 6-7 loose stools overnight, 2 loose stools since morning. Afebrile, heart rate 62, respiratory rate 17, blood pressure 132/66, saturating 96% on room air. WBCs down to 15.6 as compared to 29.2 yesterday. Hemoglobin 11.3, platelet 354. INR 1.7. Sodium 140, potassium 3.3, BUN 13, creatinine 1.4. Calcium 7.9. Remains on fidaxomicin and p.o. vancomycin, also on Coumadin for atrial fibrillation. Cardiology and infectious disease consulted. 06/01/24: Patient seen and examined today.He mentions having two episodes of diarrhea today, but notes an improvement. Also complains of lower abdominal cramps while having bowel movements or passing flatus. Labs today show hemoglobin 10.9, WBC 10.39, PT 19.6, INR 1.9. Blood culture shows no growth after 48 hours. 06/02/24: Patient seen and examined at bedside today. He had 1 bowel movements yesterday night and 1 bowel movement today morning. The consistency is still very loose but the frequency has decreased. Labs today show Mg 1.8, Phosphorous 3.1, hemoglobin 10.8, sodium 141, potassium 3.6, PT 20.4, INR 2.0. UA done yest erday shows trace protein, small blood, large leukocyte esterase, 79 WBCs and occasional amorphous sediment. Blood culture shows no growth after 72 hours. 06/03/24: Patient seen and evaluated today. He had 3 bowel movements yesterday night and 1.11 today morning and all of those were soft form and formed. Labs today show WBC 11.07, hemoglobin 10.8, sodium 138, potassium 3.7, BUN 12.1, creatinine 1.1, PT 26.2 and INR 2.7. Urine culture shows 10,000-49,000 CFU per mL gram-negative bacilli. Review of systems: Pertinent positives and negatives as discussed in HPI, a complete review of systems was performed and all other systems are negative. Vitals: Signs Reviewed Physical examination: General: nontoxic, no distress, appears at stated age Derm: warm, dry, intact Head: atraumatic, normocephalic, symmetric Eyes: EOMI, anicteric sclera Mouth: no lip lesion, mucus membranes moist Cardiovascular: S1 S2 reg, no murmur Lungs: CTA bilateral, no rhonchi, no rales, no accessory muscle use Abdominal: soft, non-tender to palpataion Extremities: No cyanosis, clubbing, or pedal edema. Neuro: Alert, Oriented, Gross neurological examination did not reveal any focal deficits. Psych: well appearing, appropriate affect Assessment and plan: Patient is an 83-year-old male with past medical history of heart failure, history of recurrent UTIs as well as recent admission for C. difficile colitis with failed outpatient treatment with fidaxomicin. Presented to the ED with diarrhea and fever. He has been admitted for further management of severe recurrent C. difficile colitis. #. Severe C. difficile infection: #. Recurrent C. difficile colitis Blood cultures shows no growth after 72 hours. Continue vancomycin 500 mg 4 times daily Cholestyramine 4 g p.o. twice daily for symptomatic relief IV fluids discontinued Plan for fecal transplant at [facility] per ID Encourage to increase yogurt intake Monitor BMP ID following PT and OT recommend return home with 11/02 caregivers and home PT #. Hypokalemia K 3.7 Potassium replacement per protocol #. Paroxysmal atrial fibrillation, rate controlled: Continue anticoagulation with warfarin 2.5 mg PO Saturday, Saturday, and 5 mg PO Saturday, Saturday, Saturday, Saturday Pradaxa on discharge if patient is willing #. Pericardial effusion on CTAP No sign or symptom of tamponade. Echocardiogram on 05/30/2024 shows EF 55 to 60%, mild concentric LVH, mild RV dilatation with mildly reduced systolic function. PPM wire noticed in RV and RA. Severe RA dilatation, severe LA dilatation. Mild MR, mild AI, mild TR. Mild pericardial effusion with no signs of tamponade physiology Monitor vitals closely #. Rash on buttocks Continue zinc oxide 20% ointment 1 application topically 3 times daily as needed #. History of BPH Continue Tamsulosin 0.4 mg PO #. PARK, prerenal, secondary to volume loss with diarrhea, resolved F: None E: K replacement per protocol N: Heart healthy diet with yogurt A: DVT prophylaxis: Warfarin PO GI prophylaxis: Pantoprazole 40 mg p.o. Attestation: I have personally seen and examined the patient with Resident, reviewed the documentation and participated and agree with the assessment and plan as written. Benjamin Campos MD Objective - Vital Signs Vital signs: Vital Signs Temp 98.3 F 06/03/24 02:30 Pulse 56 L 06/03/24 02:30 Resp 17 06/03/24 02:30 BP 130/73 06/03/24 02:30 Pulse Ox 93 L 06/03/24 02:30 FiO2 Intake & Output 06/02/24 06/03/24 06/03/24 18:59 06:59 18:59 Output Total 510 400 Balance -510 -400 Output: Urine 510 400 Other: Voiding Method Incontinent Incontinent # Voids 1 1 # Bowel Movements 1 1 - Labs CBC & Chem 7: 06/04/24 02:44 06/04/24 02:44 Labs: Abnormal Lab Results - Last 24 Hours (Table) 06/02/24 06/02/24 06/03/24 Range/Units 02:58 02:58 03:27 RBC 4.06 L (4.40-5.60) X 10*6/uL Hgb 10.8 L (13.0-17.0) g/dL Hct 33.3 L (39.6-50.0) % MCH 26.6 L (27.0-32.0) pg RDW 16.7 H (11.5-14.5) % PT 26.2 H (10.0-12.5) sec INR 2.7 H (<1.2) Chloride 113 H (96-109) mmol/L Carbon Dioxide 17.4 L (21.6-31.8) mmol/L Calcium 8.0 L (8.7-10.3) mg/dL Microbiology - Last 24 Hours (Table) 06/01/24 14:22 Urine Culture - Preliminary Urine,Voided Gram Neg Bacilli 05/29/24 15:52 Blood Culture - Preliminary Blood
[2024-06-03] MEDS: WARFARIN 2.5 MG TAB PO ONE (17:10)
[2024-06-03] MEDS: amLODIPine 10 MG TAB PO SCH (18:00)
[2024-06-04 03:29] LABS: INR 2.8 (<1.2)
[2024-06-04 08:43] LABS: HCT 34.1 % (39.6-50.0); HGB 10.9 g/dL (13.0-17.0); MCV 84.4 FL (80.0-97.0); Mean Platelet Volume 9.7 FL (9.5-12.2); NRBC Per 100 WBC 0 X 10*3/uL (0.00-0.01); Platelet Count 378 X 10*3/uL (140-440); RBC 4.04 X 10*6/uL (4.40-5.60); RDW 16.7 % (11.5-14.5); WBC 12.91 X 10*3/uL (4.50-10.00)
[2024-06-04 08:52] LABS: BUN/Creat Ratio 10.82 Ratio (12.00-20.00); Blood Urea Nitrogen 11.9 mg/dL (9.0-27.0); Glucose 106 mg/dL (70-110)
[2024-06-04 08:53] LABS: Calcium 8.2 mg/dL (8.7-10.3); Carbon Dioxide 20.3 mmol/L (21.6-31.8); Chloride 110 mmol/L (96-109); Potassium 3.8 mmol/L (3.5-5.5); Sodium 138 mmol/L (135-145)
[2024-06-04 09:12] VITALS: PULSE 60
[2024-06-04 13:43] VITALS: BP 147/69; RESP 18; TEMP 98.7
--- NOTE | 2024-06-04 13:53 | P.DS ---
Providers Date of admission: 05/29/24 15:43 Expected date of discharge: 06/04/24 Attending physician: Cedrick Villarreal Consults: 05/29/24 15:56 Consult Physician Urgent Consulting Provider: Aj Castillo Consult Reason/Comments: CDIFF Do you want consulting provider notified?: Yes Primary care physician: Celina Munoz Hospital Course: Discharge diagnosis: Severe C. difficile infection: Recurrent C. difficile colitis Hypokalemia Paroxysmal atrial fibrillation, rate controlled: Pericardial effusion on CTAP Rash on buttocks History of BPH PARK, prerenal, secondary to volume loss with diarrhea, resolved Hospital Course: Patient is a 83-year-old male with past medical history of hypertension, hyperlipidemia, CVA TIA, heart failure, history of recurrent UTIs as well as recent admission for C. difficile colitis with failure of outpatient treatment who presented to the ED yesterday with diarrhea and fever. He mentions being in the hospital in April for C. difficile colitis and he was discharged home with for fidaxomicin 20 mg p.o. every 12 hours. He completed the course of medications and was feeling better. He stopped taking the medication a week ago and since the past 2-3 days he has experienced diarrhea along with fever. He tried taking OTC diarrhea relief medication but it didn't help with his symptoms.He also complains of pain in left lower quadrant that is brought on with his diarrhea episodes. He contacted Dr. Castillo who asked him to go to the ER. Denies chills, chest pain, shortness of breath, cough, dysuria, hematuria, hematochezia, melena, nausea, vomiting. Vitals on admission T 98.4 F, P 77 bpm, BP 106/53, O2 sat 95% on room air. Labs on admission WBC 29.2, BUN 25, creatinine 1.59, lactic acid 3.7. C. diff EIA positive. CT of abdomen and pelvis showed no acute changes within the abdomen or pelvis, stable moderate cardiomegaly with stable moderate pericardial effusion, stable renal calcif ications and moderate left renal atrophy. In the ED he was started on fidaxomicin 200 mg p.o. every 12 hours and vancomycin 125 mg p.o. 4 times daily and 0.9 normal saline at 75 mL/h as well as given ceftriaxone milligrams once. 05/31/2024 Patient is feeling better today. Appetite is better. Tolerated p.o. intake. Denied any nausea or vomiting. Still complaining of loose stools, had 6-7 loose stools overnight, 2 loose stools since morning. Afebrile, heart rate 62, respiratory rate 17, blood pressure 132/66, saturating 96% on room air. WBCs down to 15.6 as compared to 29.2 yesterday. Hemoglobin 11.3, platelet 354. INR 1.7. Sodium 140, potassium 3.3, BUN 13, creatinine 1.4. Calcium 7.9. Remains on fidaxomicin and p.o. vancomycin, also on Coumadin for atrial fibrillation. Cardiology and infectious disease consulted. 06/01/24: Patient seen and examined today.He mentions having two episodes of diarrhea today, but notes an improvement. Also complains of lower abdominal cramps while having bowel movements or passing flatus. Labs today show hemoglobin 10.9, WBC 10.39, PT 19.6, INR 1.9. Blood culture shows no growth after 48 hours. 06/02/24: Patient seen and examined at bedside today. He had 1 bowel movements yesterday night and 1 bowel movement today morning. The consistency is still very loose but the frequency has decreased. Labs today show Mg 1.8, Phosphorous 3.1, hemoglobin 10.8, sodium 141, potassium 3.6, PT 20.4, INR 2.0. UA done yesterday shows trace protein, small blood, large leukocyte esterase, 79 WBCs and occasional amorphous sediment. Blood culture shows no growth after 72 hours. 06/03/24: Patient seen and evaluated today. He had 3 bowel movements yesterday night and 1.11 today morning and all of those were soft form and formed. Labs today show WBC 11.07, hemoglobin 10.8, sodium 138, potassium 3.7, BUN 12.1, creatinine 1.1, PT 26.2 and INR 2.7. Urine culture shows 10,000-49,000 CFU per mL gram-negative bacilli. 06/04/24: Patient examined at bedside today. He had 2 bowel movements overnight. Denies any UTI symptoms. Urine culture shows Pseudomonas aeruginosa and VRE. Labs today show PT 28, INR 2.8. Patient will be discharged today and is given a prescription for Vancomycin taper and amlodipine 10 mg daily as well as handout for C. diff infection and is advised to be compliant with medications. Patient is advised to follow-up with PCP, ID, loan supervisor as well as Bony varela physician for fecal transplant. Patient seen at bedside today and is feeling good and excited about discharge. Vital signs are reviewed and stable General: nontoxic, no distress, appears at stated age Derm: warm, dry, intact Head: atraumatic, normocephalic, symmetric Eyes: EOMI, anicteric sclera Mouth: no lip lesion, mucus membranes moist Cardiovascular: S1 S2 reg, no murmur Lungs: CTA bilateral, no rhonchi, no rales, no accessory muscle use Abdominal: soft, non-tender to palpataion Extremities: No cyanosis, clubbing, or pedal edema. Neuro: Alert, Oriented, Gross neurological examination did not reveal any focal deficits. Psych: well appearing, appropriate affect A total of 30 minutes of time were spent preparing this complex discharge summary. Patient was discharged on 06/04/24 at 1400. Attestation I have seen and examined this patient with my resident , discussed the same with the resident/WIL, and agree with the dictator's assessment and plan as written Dr. Avery stanley Patient Condition at Discharge: Stable Plan - Discharge Summary Discharge Rx Participant: No New Discharge Prescriptions: New Vancomycin HCl 250 mg PO QID #81 cap amLODIPine [Norvasc] 10 mg PO DAILY 14 Days #14 tab Continue Albuterol Inhaler [Ventolin Hfa Inhaler] 2 puff INHALATION RT-Q6H PRN each PRN Reason: Shortness Of Breath Or Wheezing Warfarin [Coumadin] 5 mg PO MOWEFRSA@2100 Warfarin [Coumadin] 2.5 mg PO SUTUTH@2100 Tamsulosin [Flomax] 0.4 mg PO PC-SUPPER #30 cap Acetaminophen [Tylenol] 1,000 mg PO Q6H PRN PRN Reason: Pain Ramelteon 8 mg PO HS Potassium Chloride ER [K-Dur 10] 10 meq PO DAILY Nystatin 100,000 Unit/gm Powd [Mycostatin Powder] 1 applic TOPICAL BID PRN PRN Reason: Skin Irritation Midodrine [ProAmatine] 5 mg PO AC-TID #90 tab Pantoprazole [Protonix] 40 mg PO DAILY #30 tab Cholestyramine (with Sugar) [Questran Packet] 4 gm PO BID #60 packet Sodium Bicarbonate Tab 650 mg PO BID #60 tab Discharge Medication List Acetaminophen [Tylenol] 1,000 mg PO Q6H PRN 05/30/21 [History] Albuterol Inhaler [Ventolin Hfa Inhaler] 2 puff INHALATION RT-Q6H PRN each 12/27/23 [Rx] Ramelteon 8 mg PO HS 01/10/24 [History] Potassium Chloride ER [K-Dur 10] 10 meq PO DAILY 03/18/24 [History] Nystatin 100,000 Unit/gm Powd [Mycostatin Powder] 1 applic TOPICAL BID PRN 04/30/24 [History] Warfarin [Coumadin] 2.5 mg PO SUTUTH@209904/30/24 [History] Warfarin [Coumadin] 5 mg PO MOWEFRSA@209904/30/24 [History] Cholestyramine (with Sugar) [Questran Packet] 4 gm PO BID #60 packet 05/12/24 [Rx] Midodrine [ProAmatine] 5 mg PO AC-TID #90 tab 05/12/24 [Rx] Pantoprazole [Protonix] 40 mg PO DAILY #30 tab 05/12/24 [Rx] Sodium Bicarbonate Tab 650 mg PO BID #60 tab 05/12/24 [Rx] Tamsulosin [Flomax] 0.4 mg PO PC-SUPPER #30 cap 05/12/24 [Rx] Vancomycin HCl 250 mg PO QID #81 cap 06/04/24 [Rx] amLODIPine [Norvasc] 10 mg PO DAILY 14 Days #14 tab 06/04/24 [Rx] Follow up Appointment(s)/Referral(s): Ab Mckeon MD [Medical Doctor] - 06/11/24 10:30 am (with [facility] ) [facility] [[facility]STA[facility]] - As Needed ([facility] will call you to schedule your in home nursing, physical therapy and occupational therapy visits. ) Celina Munoz MD [Primary Care Provider] - 06/08/24 11:40 am Aj Castillo MD [STAFF PHYSICIAN] - 06/10/24 3:45 pm Patient Instructions/Handouts: C. Diff (Clostridioides Difficile) Infection (DC) Discharge Disposition: HOME WITH HOME HEALTH SERVICES
[2024-06-04 14:46] VITALS: BMI 38.6
--- NOTE | 2024-06-04 14:53 | P.PN ---
Subjective Progress Note Date: 06/03/24 Principal diagnosis: Reason for follow-up C. difficile colitis Patient is a 83-year-old male with a past medical history significant for hypertension hyperlipidemia prostate disorder reflux CVA TIA and recurrent C. difficile colitis presented to hospital worsening diarrhea has been diagnosed with a C. difficile abdominal pelvis did not show any acute changes. On today's evaluation that is 06/03/2024, the patient continues to be afebrile, the patient is on room air and breathing comfortably, the Pt denies having any chest pain or cough, the patient denies having any abdominal pain no vomiting or and diarrhea has slowed and slightly forming up. Patient white count is 11.07 Objective - Vital Signs Vital signs: Vital Signs Temp 97.8 F 06/03/24 07:28 Pulse 60 06/03/24 07:28 Resp 16 06/03/24 07:28 BP 171/65 06/03/24 07:28 Pulse Ox 95 06/03/24 07:28 FiO2 Intake & Output 06/02/24 06/03/24 06/03/24 18:59 06:59 18:59 Output Total 510 400 Balance -510 -400 Output: Urine 510 400 Other: Voiding Method Incontinent Incontinent Incontinent # Voids 1 1 1 # Bowel Movements 1 1 - Exam GENERAL DESCRIPTION: An elderly male lying in bed in no distress RESPIRATORY SYSTEM: Unlabored breathing , decreased breath sounds at bases HEART: S1 S2 regular rate and rhythm , ABDOMEN: Soft , no tenderness EXTREMITIES: No edema feet - Labs CBC & Chem 7: 06/04/24 02:44 06/04/24 02:44 Labs: Abnormal Lab Results - Last 24 Hours (Table) 06/03/24 06/03/24 06/03/24 Range/Units 03:27 03:27 03:27 WBC 11.07 H (4.50-10.00) X 10*3/uL RBC 4.16 L (4.40-5.60) X 10*6/uL Hgb 10.8 L (13.0-17.0) g/dL Hct 34.4 L (39.6-50.0) % MCH 26.0 L (27.0-32.0) pg MCHC 31.4 L (32.0-37.0) g/dL RDW 16.6 H (11.5-14.5) % PT 26.2 H (10.0-12.5) sec INR 2.7 H (<1.2) Chloride 110 H (96-109) mmol/L Carbon Dioxide 18.6 L (21.6-31.8) mmol/L BUN/Creatinine Ratio 11.00 L (12.00-20.00) Ratio Calcium 7.9 L (8.7-10.3) mg/dL Microbiology - Last 24 Hours (Table) 06/01/24 14:22 Urine Culture - Preliminary Urine,Voided Gram Neg Bacilli Assessment and Plan (1) C. difficile colitis Current Visit: Yes Status: Acute Code(s): A04.72 - ENTEROCOLITIS D/T CLOSTRIDIUM DIFFICILE, NOT SPCF RECUR SNOMED Code(s): 587670489 (2) Sepsis Current Visit: No Status: Acute Code(s): A41.9 - SEPSIS, UNSPECIFIED O RGANISM SNOMED Code(s): 65161180 (3) Leukocytosis Current Visit: No Status: Acute Code(s): D72.829 - ELEVATED WHITE BLOOD CELL COUNT, UNSPECIFIED SNOMED Code(s): 643997371 Plan: 1patient was in the hospital with sepsis in this patient who did have significant evaded white count elevated lactic acid meeting criteria for SIRS source is severe C. difficile colitis in this patient did have recurrent episode of C. difficile colitis with last episode being treated with oral Dificid and did not have any other antibiotic exposure 2patient did have improvement in his diarrhea plan is to consider a tapering course of oral vancomycin on discharge Dictation was produced using [employer] dictation software. please excuse any grammatical, word or spelling errors. Time with Patient: Less than 30
--- NOTE | 2024-06-04 14:54 | P.PN ---
Subjective Progress Note Date: 06/04/24 Principal diagnosis: Reason for follow-up is C. difficile colitis Patient is a 83-year-old male with a past medical history significant for hypertension hyperlipidemia prostate disorder reflux CVA TIA and recurrent C. difficile colitis presented to hospital worsening diarrhea has been diagnosed with a C. difficile abdominal pelvis did not show any acute changes. On today's evaluation that is 06/04/2024, Patient is afebrile patient is currently on room air and denies having any shortness of breath, the patient denies any chest pain or cough, the patient denies any nausea vomiting, denies any abdominal pain diarrhea has slowed down slightly forming up per the nurse aide patient did have external catheter and denies having any burning urine. The patient white count is 12.91 urine is growing VRE and Pseudomonas aeruginosa Objective - Vital Signs Vital signs: Vital Signs Temp 98.2 F 06/04/24 08:28 Pulse 60 06/04/24 08:28 Resp 17 06/04/24 08:28 BP 124/58 06/04/24 08:28 Pulse Ox 94 L 06/04/24 08:28 FiO2 Intake & Output 06/03/24 06/04/24 06/04/24 18:59 06:59 18:59 Output Total 100 750 Balance -100 -750 Output: Urine 100 750 Other: Voiding Method Incontinent External Catheter # Voids 1 2 # Bowel Movements 1 2 - Exam GENERAL DESCRIPTION: An elderly male lying in bed in no distress RESPIRATORY SYSTEM: Unlabored breathing , decreased breath sounds at bases HEART: S1 S2 regular rate and rhythm , ABDOMEN: Soft , no tenderness EXTREMITIES: No edema feet - Labs CBC & Chem 7: 06/04/24 02:44 06/04/24 02:44 Labs: Abnormal Lab Results - Last 24 Hours (Table) 06/04/24 06/04/24 06/04/24 Range/Units 02:44 02:44 02:44 WBC 12.91 H (4.50-10.00) X 10*3/uL RBC 4.04 L (4.40-5.60) X 10*6/uL Hgb 10.9 L (13.0-17.0) g/dL Hct 34.1 L (39.6-50.0) % RDW 16.7 H (11.5-14.5) % PT 28.0 H (10.0-12.5) sec INR 2.8 H (<1.2) Chloride 110 H (96-109) mmol/L Carbon Dioxide 20.3 L (21.6-31.8) mmol/L BUN/Creatinine Ratio 10.82 L (12.00-20.00) Ratio Calcium 8.2 L (8.7-10.3) mg/dL Microbiology - Last 24 Hours (Table) 05/29/24 15:52 Blood Culture - Final Blood 06/01/24 14:22 Urine Culture - Final Urine,Voided Pseudomonas aeruginosa Enterococcus faecium VRE Assessment and Plan (1) C. difficile colitis Current Visit: Yes Status: Acute Code(s): A04.72 - ENTEROCOLITIS D/T CLOSTRIDIUM DIFFICILE, NOT SPCF RECUR SNOMED Code(s): 023821185 (2) Sepsis Current Visit: No Status: Acute Code(s): A41.9 - SEPSIS, UNSPECIFIED ORGANISM SNOMED Code(s): 75859916 (3) Leukocytosis Current Visit: No Status: Acute Code(s): D72.829 - ELEVATED WHITE BLOOD CELL COUNT, UNSPECIFIED SNOMED Code(s): 003289753 Plan: 1patient was in the hospital with sepsis in this patient who did have significant evaded white count elevated lactic acid meeting criteria for SIRS source is severe C. difficile colitis in this patient did have recurrent episode of C. difficile colitis with last episode being treated with oral Dificid and did not have any other antibiotic exposure 2patient did have improvement in his diarrhea plan is to consider a tapering course of oral vancomycin on discharge which has been explained to the admitting team working on discharge 3patient also have a positive urine culture with VRE and Pseudomonas patient do not have any urinary symptoms of burning or suprapubic discomfort not sure why UA and culture obtained to begin with on 06/01/2024 and is more likely colonization or contamination and no need for systemic antibiotics on discharge for the positive urine culture this was discussed with the admitting team Dictation was produced using [employer] dictation software. please excuse any grammatical, word or spelling errors. Time with Patient: Less than 30
[2024-06-04] MEDS ORDERED: WARFARIN 2.5 MG TAB PO ONE (18:00)
== END 2024-06-04 16:10 | disposition home health service (06) | DRG 372 ==
LOC: EC 10:59 → 4SSUR 15:43
PROVIDERS: ADMIT Internal Medicine; ATTEND Internal Medicine
DX: A04.71 Enterocolitis due to Clostridium difficile, recurrent (principal); I31.39 Other pericardial effusion (noninflammatory); I50.32 Chronic diastolic (congestive) heart failure; N17.9 Acute kidney failure, unspecified; N39.0 Urinary tract infection, site not specified; E78.5 Hyperlipidemia, unspecified; I11.0 Hypertensive heart disease with heart failure; I48.0 Paroxysmal atrial fibrillation; N40.0 Benign prostatic hyperplasia without lower urinary tract symptoms; E87.6 Hypokalemia; I08.3 Combined rheumatic disorders of mitral, aortic and tricuspid valves; Z87.440 Personal history of urinary (tract) infections; Z87.891 Personal history of nicotine dependence; Z85.46 Personal history of malignant neoplasm of prostate; Z79.01 Long term (current) use of anticoagulants; Z79.899 Other long term (current) drug therapy; Z86.73 Personal history of transient ischemic attack (TIA), and cerebral infarction without residual deficits; Z87.442 Personal history of urinary calculi; Z95.0 Presence of cardiac pacemaker; Z83.3 Family history of diabetes mellitus
CPT/HCPCS: 36415; 74176; 80048; 80053; 81001; 82150; 83605; 83690; 83735; 84100; 85025; 85027; 85610; 85730; 87040; 87077; 87086; 87186; 87324; 93306; 96361; 96374; 99285

== ENCOUNTER 2024-06-22 17:54 | Inpatient (IN) | payer MEDICARE, BC ==
--- NOTE | 2024-06-22 18:20 | ED ---
General Adult HPI - General Chief complaint: Weakness Stated complaint: weakness Time Seen by Provider: 06/22/24 17:57 Source: patient Mode of arrival: EMS Limitations: no limitations - History of Present Illness Initial comments: Dictation was produced using [employer] dictation software. please excuse any grammatical, word or spelling errors. Chief Complaint: 83-year-old male presents with weakness and left-sided abdominal pain History of Present Illness: Patient is an 83-year-old male presents to the emergency department with weakness. Patient has multiple comorbidities. Lives at home with 11/02 assistance. States that his daughter went to visit him after she worked and patient was too weak to stand up out of his chair. Patient states he has pain in his left abdomen. Denies any fever, chills or night sweats. No nausea or vomiting. Patient is concerned perhaps maybe has a recurrence of kidney stone. The ROS documented in this emergency department record has been reviewed and confirmed by me. Those systems with pertinent positive or negative responses have been documented in the HPI. All other systems are other negative and/or n oncontributory. - Related Data Home Medications Medication Instructions Recorded Confirmed Acetaminophen [Tylenol] 1,000 mg PO Q6H PRN 05/30/21 06/22/24 Ramelteon 8 mg PO HS 01/10/24 06/22/24 Potassium Chloride ER [K-Dur 10] 10 meq PO DAILY 03/18/24 06/22/24 Nystatin 100,000 Unit/gm Powd 1 applic TOPICAL BID PRN 04/30/24 06/22/24 [Mycostatin Powder] Warfarin [Coumadin] 2.5 mg PO SUTUTH@209904/30/24 06/22/24 Warfarin [Coumadin] 5 mg PO MOWEFRSA@2100 04/30/24 06/22/24 Cephalexin [Keflex] 500 mg PO ONETIME 06/22/24 06/22/24 Vancomycin HCl See Taper PO QID 06/22/24 06/22/24 Previous Rx's Medication Instructions Recorded Albuterol Inhaler [Ventolin Hfa 2 puff INHALATION RT-Q6H PRN each 12/27/23 Inhaler] Cholestyramine (with Sugar) 4 gm PO BID #60 packet 05/12/24 [Questran Packet] Midodrine [ProAmatine] 5 mg PO AC-TID #90 tab 05/12/24 Pantoprazole [Protonix] 40 mg PO DAILY #30 tab 05/12/24 Sodium Bicarbonate Tab 650 mg PO BID #60 tab 05/12/24 Tamsulosin [Flomax] 0.4 mg PO PC-SUPPER #30 cap 05/12/24 amLODIPine [Norvasc] 10 mg PO DAILY 14 Days #14 tab 06/04/24 Allergies Allergy/AdvReac Type Severity Reaction Status Date / Time No Known Allergies Allergy Verified 06/22/24 20:21 Review of Systems ROS Statement: Those systems with pertinent positive or pertinent negative responses have been documented in the HPI. ROS Other: All systems not noted in ROS Statement are negative. Past Medical History Past Medical History: Atrial Fibrillation, Cancer, Heart Failure, CVA/TIA, GERD/Reflux, Hyperlipidemia, Hypertension, Prostate Disorder Additional Past Medical History / Comment(s): 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 dry skin on arms, numbness in last 2 fingers to left hand, kidney stone. History of Any Multi-Drug Resistant Organisms: C-DIFF, CRE Date of last positivie culture/infection: 01/11/24, February 2024 for Cdiff MDRO Source:: Urine-CRE, Stool Past Surgical History: Cholecystectomy, Hernia Repair, Orthopedic Surgery, Pacemaker Additional Past Surgical History / Comment(s): cervical fusion, lithrotripsy, Past Anesthesia/Blood Transfusion Reactions: No Reported Reaction Additional Past Anesthesia/Blood Transfusion Reaction / Comment(s): Pt has never recieved blood. Type of Cardiac Device: Permanent Pacemaker Device Placement Date:: 2013 Past Psychological History: No Psychological Hx Reported Smoking Status: Former smoker Past Alcohol Use History: None Reported Past Drug Use History: None Reported - Past Family History Father Family Medical History: Diabetes Mellitus Mother Family Medical History: Osteoarthritis (OA) Additional Family Medical History / Comment(s): arthritis General Exam - General Exam Comments Initial Comments: PHYSICAL EXAM: General Impression: Alert and oriented x3, not in acute distress HEENT: Normocephalic atraumatic, extra-ocular movements intact, pupils equal and reactive to light bilaterally, mucous membranes moist. Cardiovascular: Heart regular rate and rhythm Chest: Able to complete full sentences, no retractions, no tachypnea Abdomen: abdomen soft, non-tender, non-distended, no organomegaly Musculoskeletal: Pulses present and equal in all extremities, no peripheral edema Motor: no focal deficits noted Neurological: CN II-XII grossly intact, no focal motor or sensory deficits noted Skin: Intact with no visualized rashes Psych: Normal affect and mood Limitations: no limitations Course Vital Signs 06/22/24 17:59 Temperature 98.7 F Pulse Rate 77 Respiratory 18 Rate Blood Pressure 106/51 O2 Sat by Pulse 95 Oximetry EKG Findings - EKG Comments: EKG Findings:: My EKG interpretation: Ventricular rate 76, ventricular paced rhythm, QRS 181, QTc 507. No QTC prolongation, no ST or T-wave changes noted. Overall, this EKG is unremarkable Medical Decision Making - Medical Decision Making Was pt. sent in by a medical professional or institution (, PA, IMAGING ACCOUNT MANAGER, urgent care, hospital, or skilled nursing...) When possible be specific @ -No Did you speak to anyone other than the patient for history (EMS, parent, family, police, friend...)? What history was obtained from this source @ -No Did you review nursing and triage notes (agree or disagree)? Why? @ -I reviewed and agree with nursing and triage notes Were old charts reviewed (outside hosp., previous admission, EMS record, old EKG, old radiological studies, urgent care reports/EKG's, skilled nursing records)? Report findings @ -No old charts were reviewed Differential Diagnosis (chest pain, altered mental status, abdominal pain women, abdominal pain men, vaginal bleeding, musculoskeletal, weakness, fever, dyspnea, syncope, headache, dizziness, GI bleed, back pain, seizure, CVA, palpatations, mental health)? @ -Differential Abdominal Pain Men: Appendicitis, cholecystitis, diverticulosis, ischemic bowel, pancreatitis, hepatitis, UTI, gastroenteritis, AAA, incarcerated hernia, bowel obstruction, constipation, inflammatory bowel, hepatitis, peptic ulcer disease, splenic infarction, perforated viscus, testicular torsion, this is not meant to be an all-inclusive list EKG interpreted by me (3pts min.). @ -See above X-rays interpreted by me (1pt min.). @ -None done CT interpreted by me (1pt min.). @ -CT abdomen pelvis shows 8 mm stone at distal ureter and 4 mm stone at the UVJ. Does appear to be some perinephric fat stranding. U/S interpreted by me (1pt. min.). @ -None done What testing was considered but not performed or refused? (CT, X-rays, U/S, labs)? Why? @ -None What meds were considered but not given or refused? Why? @ -None Was smoking cessation discussed for >3mins.? @ -No Were there social determinants of health that impacted care today? How? (Homelessness, low income, unemployed, alcoholism, drug addiction, transportation, low edu. Level, literacy, decrease access to med. care, prison, rehab)? @ -No Was there de-escalation of care discussed even if they declined (Discuss DNR or withdrawal of care, Hospice)? DNR status @ -No What co-morbidities impacted this encounter? (DM, HTN, Smoking, COPD, CAD, Cancer, CVA, ARF, Chemo, Hep., AIDS, mental health diagnosis, sleep apnea, morbid obesity)? @ -Nephrolithiasis history Was patient admitted / discharged? Hospital course, mention meds given and route, prescriptions, significant lab abnormalities, going to OR and other pertinent info. @ -83-year-old male presents to the emergency department for generalized weakness. He does complain of some vague left lower quadrant left groin abdominal pain. Patient well-appearing at the bedside. Vital signs are stable. Laboratory evaluation obtained. CBC metabolic panel within acceptable limits. Troponin 0.035. Patient has history of elevated troponin which is currently around his baseline. Urinalysis shows UTI with positive nitrites. Patient reevaluated bedside at 10:58 PM states that he is currently pain-free. Suspected patient may have passed a stone. Patient feels too weak to go home. Patient given ceftriaxone will be admitted consultation to urology. Case discussed with hospitalist for admission Did you discuss the management of the patient with other professionals (professionals i.e. , PA, IMAGING ACCOUNT MANAGER, lab, RT, psych nurse, outreach and education social worker, intrusion analyst, teacher, truant officer, shoe parts caser)? Give summary @ -See above Was critical care preformed (if so, how long)? @ -No Undiagnosed new problem with uncertain prognosis? @ -No Drug Therapy requiring intensive monitoring for toxicity (Heparin, Nitro, Insulin, Cardizem)? @ -No Were any procedures done? @ -No Diagnosis/symptom? Acute, or Chronic, or Acute on Chronic? Uncomplicated (without systemic symptoms) or Complicated (systemic symptoms)? @ -UTI complicated by generalized weakness, septic stone? Side effects of treatment? @ -No Exacerbation, Progression, or Severe Exacerbation? @ -No Poses a threat to life or bodily function? How? (Chest pain, USA, ND, pneumonia, PE, COPD, DKA, ARF, appy, cholecystitis, CVA, Diverticulitis, Homicidal, Suicidal, threat to staff... and all critical care pts) @ -yes - Lab Data Result diagrams: 06/22/24 18:39 06/22/24 18:39 Lab Results 06/22/24 06/22/24 06/22/24 Range/Units 18:39 18:39 18:39 WBC 10.1 (3.8-10.6) k/uL RBC 3.99 L (4.30-5.90) m/uL Hgb 10.7 L (13.0-17.5) gm/dL Hct 32.4 L (39.0-53.0) % MCV 81.2 (80.0-100.0) fL MCH 26.8 (25.0-35.0) pg MCHC 33.0 (31.0-37.0) g/dL RDW 16.5 H (11.5-15.5) % Plt Count 338 (150-450) k/uL MPV 8.1 Neutrophils % 79 % Lymphocytes % 5 % Monocytes % 14 % Eosinophils % 0 % Basophils % 0 % Neutrophils # 7.9 H (1.3-7.7) k/uL Lymphocytes # 0.5 L (1.0-4.8) k/uL Monocytes # 1.4 H (0-1.0) k/uL Eosinophils # 0.0 (0-0.7) k/uL Basophils # 0.0 (0-0.2) k/uL Anisocytosis Slight Sodium 133 L (137-145) mmol/L Potassium 4.6 (3.5-5.1) mmol/L Chloride 107 (98-107) mmol/L Carbon Dioxide 21 L (22-30) mmol/L Anion Gap 5 mmol/L BUN 27 H (9-20) mg/dL Creatinine 1.55 H (0.66-1.25) mg/dL Est GFR (CKD-EPI)AfAm 47 (>60 ml/min/1.73 sqM) Est GFR (CKD-EPI)NonAf 41 (>60 ml/min/1.73 sqM) Glucose 102 H (74-99) mg/dL Plasma Lactic Acid Yasir 1.7 (0.7-2.0) mmol/L Calcium 7.9 L (8.4-10.2) mg/dL Magnesium 1.9 (1.6-2.3) mg/dL Total Bilirubin 1.0 (0.2-1.3) mg/dL AST 24 (17-59) U/L ALT 19 (4-49) U/L Alkaline Phosphatase 58 (38-126) U/L Troponin I (0.000-0.034) ng/mL Total Protein 5.7 L (6.3-8.2) g/dL Albumin 2.9 L (3.5-5.0) g/dL Urine Color Urine Appearance (Clear) Urine pH (5.0-8.0) Ur Specific [place] (1.001-1.035) Urine Protein (Negative) Urine Glucose (UA) (Negative) Urine Ketones (Negative) Urine Blood (Negative) Urine Nitrite (Negative) Urine Bilirubin (Negative) Urine Urobilinogen (<2.0) mg/dL Ur Leukocyte Esterase (Negative) Urine RBC (0-5) /hpf Urine WBC (0-5) /hpf Urine Bacteria (None) /hpf 06/22/24 06/22/24 Range/Units 18:39 22:07 WBC (3.8-10.6) k/uL RBC (4.30-5.90) m/uL Hgb (13.0-17.5) gm/dL Hct (39.0-53.0) % MCV (80.0-100.0) fL MCH (25.0-35.0) pg MCHC (31.0-37.0) g/dL RDW (11.5-15.5) % Plt Count (150-450) k/uL MPV Neutrophils % % Lymphocytes % % Monocytes % % Eosinophils % % Basophils % % Neutrophils # (1.3-7.7) k/uL Lymphocytes # (1.0-4.8) k/uL Monocytes # (0-1.0) k/uL Eosinophils # (0-0.7) k/uL Basophils # (0-0.2) k/uL Anisocytosis Sodium (137-145) mmol/L Potassium (3.5-5.1) mmol/L Chloride (98-107) mmol/L Carbon Dioxide (22-30) mmol/L Anion Gap mmol/L BUN (9-20) mg/dL Creatinine (0.66-1.25) mg/dL Est GFR (CKD-EPI)AfAm (>60 ml/min/1.73 sqM) Est GFR (CKD-EPI)NonAf (>60 ml/min/1.73 sqM) Glucose (74-99) mg/dL Plasma Lactic Acid Yasir (0.7-2.0) mmol/L Calcium (8.4-10.2) mg/dL Magnesium (1.6-2.3) mg/dL Total Bilirubin (0.2-1.3) mg/dL AST (17-59) U/L ALT (4-49) U/L Alkaline Phosphatase (38-126) U/L Troponin I 0.035 H* (0.000-0.034) ng/mL Total Protein (6.3-8.2) g/dL Albumin (3.5-5.0) g/dL Urine Color Yellow Urine Appearance Turbid (Clear) Urine pH 7.0 (5.0-8.0) Ur Specific [place] 1.023 (1.001-1.035) Urine Protein 2+ H (Negative) Urine Glucose (UA) Negative (Negative) Urine Ketones Negative (Negative) Urine Blood Moderate H (Negative) Urine Nitrite Positive (Negative) Urine Bilirubin Negative (Negative) Urine Urobilinogen 3.0 (<2.0) mg/dL Ur Leukocyte Esterase Large H (Negative) Urine RBC 57 H (0-5) /hpf Urine WBC >182 H (0-5) /hpf Urine Bacteria Many H (None) /hpf Disposition Clinical Impression: Weakness, UTI (urinary tract infection) Disposition: ADMITTED IP TO THIS [facility] Condition: Fair Referrals: Celina Munoz MD [Primary Care Provider] - 1-2 days Decision Time: 22:59
[2024-06-22 19:01] LABS: Anisocytosis Slight; Basophils % (A) 0 %; Eosinophils % (A) 0 %; HCT 32.4 % (39.0-53.0); HGB 10.7 gm/dL (13.0-17.5); Lymphocytes # (A) 0.5 k/uL (1.0-4.8); Lymphocytes % (A) 5 %; MCH 26.8 pg (25.0-35.0); MCV 81.2 fL (80.0-100.0); Mean Platelet Volume 8.1; Monocytes # (A) 1.4 k/uL (0-1.0); Monocytes % (A) 14 %; Neutrophils # (A) 7.9 k/uL (1.3-7.7); Neutrophils % (A) 79 %; Platelet Count 338 k/uL (150-450); RBC 3.99 m/uL (4.30-5.90); RDW 16.5 % (11.5-15.5); WBC 10.1 k/uL (3.8-10.6)
[2024-06-22 19:17] LABS: ALT 19 U/L (4-49); AST 24 U/L (17-59); African American GFR (CKD) 47 (>60 ml/min/1.73 sqM); Albumin 2.9 g/dL (3.5-5.0); Alkaline Phosphatase 58 U/L (38-126); Anion Gap 5 mmol/L; Blood Urea Nitrogen 27 mg/dL (9-20); Calcium 7.9 mg/dL (8.4-10.2); Carbon Dioxide 21 mmol/L (22-30); Chloride 107 mmol/L (98-107); Glucose 102 mg/dL (74-99); Magnesium 1.9 mg/dL (1.6-2.3); Non-African American GFR(CKD) 41 (>60 ml/min/1.73 sqM); Potassium 4.6 mmol/L (3.5-5.1); Sodium 133 mmol/L (137-145); Total Protein 5.7 g/dL (6.3-8.2)
--- NOTE | 2024-06-22 20:18 | CT ---
EXAMINATION TYPE: CT abdomen pelvis w con DATE OF EXAM: 06/22/2024 7:56 PM COMPARISON: 05/29/2024 CLINICAL INDICATION: Male, 83 years old with history of left abdominal pain; TECHNIQUE: Axial CT abdomen pelvis w con;Sagittal and coronal reformats were created on a separate w orkstation. Contrast used: mL of , (none if empty) Oral contrast used: (none if empty) CT DLP: mGycm, Automated exposure control for dose reduction was used. FINDINGS: LOWER CHEST: Unremarkable ABDOMEN LIVER: Scattered simple appearing hepatic cysts. GALLBLADDER AND BILE DUCTS: The gallbladder is surgically absent. PANCREAS: Unremarkable. SPLEEN: Unremarkable. ADRENAL GLANDS: Unremarkable. KIDNEYS AND URETERS: Moderate left hydroureteronephrosis. Nonobstructing 8 mm calculus in the distal ureter and additional 4 mm calculus at the ureterovesicular junction. Additional nonobstructing left renal calculi 5 mm with atrophic left kidney. Mild right kidney atrophy changes with cortical calcifi cation. PELVIS BLADDER: No evidence for wall thickening or mass given limitations of exam. REPRODUCTIVE: Unremarkable. ABDOMEN & PELVIS STOMACH AND BOWEL: No evidence of bowel obstruction. Scattered colonic diverticula. PERITONEUM/RETROPERITONEUM: No evidence of pneumoperitoneum or free fluid. VASCULATURE: No evidence of aortic aneurysm. MUSCULOSKELETAL: No acute osseous abnormalities LYMPH NODES: No gross evidence for lymphadenopathy. SOFT TISSUE/ABDOMINAL WALL: Left fat-containing inguinal hernia. IMPRESSION: 1. New from 05/29/2024, Moderate left hydroureteronephrosis. Obstructing 8 mm calculus in the distal ureter and additional 4 mm calculus at the ureterovesicular junction. Left perinephric fat stranding correlate for ascending infection. Correlate with urinalysis Urological consultation recommended. 2. Atrophic kidneys bilaterally. 3. Colonic diverticulosis. [facility], , 06/22/2024 8:16 PM
[2024-06-22 22:20] LABS: Appearance,Urine Turbid (Clear); Bacteria,Urine Many /hpf; Bilirubin,Urine Negative (Negative); Blood,Urine Moderate (Negative); Color,Urine Yellow; Glucose,Urine (UA) Negative (Negative); Ketones,Urine Negative (Negative); Leukocyte Esterase,Urine Large (Negative); Nitrite,Urine Positive (Negative); Protein,Urine 2+ (Negative); RBC,Urine 57 /hpf (0-5); Specific Gravity,Urine 1.023 (1.001-1.035); WBC,Urine >182 /hpf (0-5)
[2024-06-22] MEDS ORDERED: NALOXONE 0.4 MG/ML 1 ML VIAL IV PRN (22:55)
[2024-06-22] MEDS: SODIUM CHLORIDE 0.9% 1,000 ML IV SCH (23:34)
[2024-06-22] MEDS: cefTRIAXone IN SWFI 1,000 MG/10 ML SYRINGE IVP STA (23:34)
[2024-06-23] MEDS: NYSTATIN 100,000 UNIT/GM POWD 15 GM TOPICAL SCH (05:51)
[2024-06-23] MEDS: ZINC OXIDE PASTE (Z-GUARD) 1 APPLIC TOPICAL PRN (05:51)
--- NOTE | 2024-06-23 09:32 | P.GSCN ---
History of Present Illness Consult date: 06/23/24 Reason for Consult: UTI, left ureteral calculi Requesting physician: Carina Knott History of present illness: Patient is an 83-year-old white male well-known to our service. He underwent a TURP several years ago. In late October, he was hospitalized and found to have an obstructing left distal ureteral calculus. This was removed via ureteroscopy with laser lithotripsy, and his ureteral stent was subsequently removed. He had an identical episode in December. He now presents with a 3-day history of left flank pain, associated with fever. CT scan shows left hydroureteronephrosis due to to left distal ureteral calculi. Urinalysis is suggestive of infection. He continues to experience significant urinary incontinence. I am consulted for this reason. Review of Systems - Constitutional Reports fever - Genitourinary Reports flank pain, Reports incontinence, Reports kidney stones Past Medical History Past Medical History: Atrial Fibrillation, Cancer, Heart Failure, CVA/TIA, GERD/Reflux, Hyperlipidemia, Hypertension, Prostate Disorder Additional Past Medical History / Comment(s): 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 dry skin on arms, numbness in last 2 fingers to left hand, kidney stone. History of Any Multi-Drug Resistant Organisms: C-DIFF, CRE Year Discovered:: 06/14 CDIFF MDRO Source:: Urine-CRE, Stool Past Surgical History: Cholecystectomy, Hernia Repair, Orthopedic Surgery, Pacemaker Additional Past Surgical History / Comment(s): cervical fusion, lithrotripsy, Past Anesthesia/Blood Transfusion Reactions: No Reported Reaction Additional Past Anesthesia/Blood Transfusion Reaction / Comm: Pt has never recieved blood. Type of Cardiac Device: Permanent Pacemaker Device Placement Date:: 2013 Past Psychological History: No Psychological Hx Reported Additional Psychological History / Comment(s): lives in senior apartments with 24 hour home care Smoking Status: Former smoker Past Alcohol Use History: None Reported Additional Past Alcohol Use History / Comment(s): quit smoking 2007 cigars and pipe Past Drug Use History: None Reported - Past Family History Father Family Medical History: Diabetes Mellitus Mother Family Medical History: Osteoarthritis (OA) Additional Family Medical History / Comment(s): arthritis Medications and Allergies Home Medications Medication Instructions Recorded Confirmed Type Acetaminophen [Tylenol] 1,000 mg PO Q6H PRN 05/30/21 06/22/24 History Albuterol Inhaler [Ventolin Hfa 2 puff INHALATION RT-Q6H PRN each 12/27/23 06/22/24 Rx Inhaler] Ramelteon 8 mg PO HS 01/10/24 06/22/24 History Potassium Chloride ER [K-Dur 10] 10 meq PO DAILY 03/18/24 06/22/24 History Nystatin 100,000 Unit/gm Powd 1 applic TOPICAL BID PRN 04/30/24 06/22/24 History [Mycostatin Powder] Warfarin [Coumadin] 2.5 mg PO SUTUTH@209904/30/24 06/22/24 History Warfarin [Coumadin] 5 mg PO MOWEFRSA@209904/30/24 06/22/24 History Cholestyramine (with Sugar) 4 gm PO BID #60 packet 05/12/24 06/22/24 Rx [Questran Packet] Midodrine [ProAmatine] 5 mg PO AC-TID #90 tab 05/12/24 06/22/24 Rx Pantoprazole [Protonix] 40 mg PO DAILY #30 tab 05/12/24 06/22/24 Rx Sodium Bicarbonate Tab 650 mg PO BID #60 tab 05/12/24 06/22/24 Rx Tamsulosin [Flomax] 0.4 mg PO PC-SUPPER #30 cap 05/12/24 06/22/24 Rx amLODIPine [Norvasc] 10 mg PO DAILY 14 Days #14 tab 06/04/24 06/22/24 Rx Cephalexin [Keflex] 500 mg PO ONETIME 06/22/24 06/22/24 History Vancomycin HCl See Taper PO QID 06/22/24 06/22/24 History Allergies Allergy/AdvReac Type Severity Reaction Status Date / Time No Known Allergies Allergy Verified 06/22/24 20:21 Surgical - Exam Vital Signs Temp Pulse Resp BP Pulse Ox 98.7 F 77 18 106/51 95 06/22/24 17:59 06/22/24 17:59 06/22/24 17:59 06/22/24 17:59 06/22/24 17:59 - General well developed, well nourished, moderate distress - Respiratory normal respiratory effort - Abdomen Abdomen: soft, tender (Mild left-sided tenderness), no guarding, no rigid, no rebound - Genitourinary Phimosis is noted. Normal scrotum and testes. - Psychiatric oriented to time, oriented to person, oriented to place, speech is normal, memory intact Results - Labs 06/22/24 18:39 06/22/24 18:39 Abnormal Lab Results - Last 24 Hours (Table) 06/22/24 06/22/24 06/22/24 Range/Units 18:39 18:39 18:39 RBC 3.99 L (4.30-5.90) m/uL Hgb 10.7 L (13.0-17.5) gm/dL Hct 32.4 L (39.0-53.0) % RDW 16.5 H (11.5-15.5) % Neutrophils # 7.9 H (1.3-7.7) k/uL Lymphocytes # 0.5 L (1.0-4.8) k/uL Monocytes # 1.4 H (0-1.0) k/uL Sodium 133 L (137-145) mmol/L Carbon Dioxide 21 L (22-30) mmol/L BUN 27 H (9-20) mg/dL Creatinine 1.55 H (0.66-1.25) mg/dL Glucose 102 H (74-99) mg/dL Calcium 7.9 L (8.4-10.2) mg/dL Troponin I 0.035 H* (0.000-0.034) ng/mL Total Protein 5.7 L (6.3-8.2) g/dL Albumin 2.9 L (3.5-5.0) g/dL Urine Protein (Negative) Urine Blood (Negative) Ur Leukocyte Esterase (Negative) Urine RBC (0-5) /hpf Urine WBC (0-5) /hpf Urine Bacteria (None) /hpf 06/22/24 Range/Units 22:07 RBC (4.30-5.90) m/uL Hgb (13.0-17.5) gm/dL Hct (39.0-53.0) % RDW (11.5-15.5) % Neutrophils # (1.3-7.7) k/uL Lymphocytes # (1.0-4.8) k/uL Monocytes # (0-1.0) k/uL Sodium (137-145) mmol/L Carbon Dioxide (22-30) mmol/L BUN (9-20) mg/dL Creatinine (0.66-1.25) mg/dL Glucose (74-99) mg/dL Calcium (8.4-10.2) mg/dL Troponin I (0.000-0.034) ng/mL Total Protein (6.3-8.2) g/dL Albumin (3.5-5.0) g/dL Urine Protein 2+ H (Negative) Urine Blood Moderate H (Negative) Ur Leukocyte Esterase Large H (Negative) Urine RBC 57 H (0-5) /hpf Urine WBC >182 H (0-5) /hpf Urine Bacteria Many H (None) /hpf Diabetes panel 06/22/24 Range/Units 18:39 Sodium 133 L (137-145) mmol/L Potassium 4.6 (3.5-5.1) mmol/L Chloride 107 (98-107) mmol/L Carbon Dioxide 21 L (22-30) mmol/L BUN 27 H (9-20) mg/dL Creatinine 1.55 H (0.66-1.25) mg/dL Glucose 102 H (74-99) mg/dL Calcium 7.9 L (8.4-10.2) mg/dL AST 24 (17-59) U/L ALT 19 (4-49) U/L Alkaline Phosphatase 58 (38-126) U/L Total Protein 5.7 L (6.3-8.2) g/dL Albumin 2.9 L (3.5-5.0) g/dL Calcium panel 06/22/24 Range/Units 18:39 Calcium 7.9 L (8.4-10.2) mg/dL Albumin 2.9 L (3.5-5.0) g/dL Pituitary panel 06/22/24 Range/Units 18:39 Sodium 133 L (137-145) mmol/L Potassium 4.6 (3.5-5.1) mmol/L Chloride 107 (98-107) mmol/L Carbon Dioxide 21 L (22-30) mmol/L BUN 27 H (9-20) mg/dL Creatinine 1.55 H (0.66-1.25) mg/dL Glucose 102 H (74-99) mg/dL Calcium 7.9 L (8.4-10.2) mg/dL Adrenal panel 06/22/24 Range/Units 18:39 Sodium 133 L (137-145) mmol/L Potassium 4.6 (3.5-5.1) mmol/L Chloride 107 (98-107) mmol/L Carbon Dioxide 21 L (22-30) mmol/L BUN 27 H (9-20) mg/dL Creatinine 1.55 H (0.66-1.25) mg/dL Glucose 102 H (74-99) mg/dL Calcium 7.9 L (8.4-10.2) mg/dL Total Bilirubin 1.0 (0.2-1.3) mg/dL AST 24 (17-59) U/L ALT 19 (4-49) U/L Alkaline Phosphatase 58 (38-126) U/L Total Protein 5.7 L (6.3-8.2) g/dL Albumin 2.9 L (3.5-5.0) g/dL - Imaging CT scan - abdomen: report reviewed, image reviewed Assessment and Plan (1) UTI (urinary tract infection) Current Visit: Yes Status: Acute Code(s): N39.0 - URINARY TRACT INFECTION, SITE NOT SPECIFIED SNOMED Code(s): 51878660 (2) Hydronephrosis with renal and ureteral calculous obstruction Current Visit: Yes Status: Acute Code(s): N13.2 - HYDRONEPHROSIS WITH RENAL AND URETERAL CALCULOUS OBSTRUCTION SNOMED Code(s): 546033539 (3) Calculus of ureter Current Visit: Yes Status: Acute Code(s): N20.1 - CALCULUS OF URETER SNOMED Code(s): 70983158 Plan: Urine culture was sent, and the patient has received Rocephin. I have recommended to Mr. Melton that he undergo cystoscopy with left ureteral stent insertion later today. The rationale for this was discussed, as were potential risks. He is aware that he may require dilation or a dorsal slit in order to perform the procedure. He also understands that he will require a secondary p rocedure to remove the ureteral calculi. Time with Patient: Greater than 30
[2024-06-23] MEDS: CEFEPIME 2 GM in SODIUM CHLORIDE 0.9% 100 ML IVPB SCH (11:40)
[2024-06-23 11:59] LABS: Prothrombin Time 19.8 sec (10.0-12.5)
[2024-06-23] MEDS: LACTOBACILLUS ACIDOPHILUS/PECT 1 EACH CAPSULE PO SCH (13:10)
[2024-06-23] MEDS: IV FLUID CONTINUATION 500 ML IV ONE (14:02)
[2024-06-23] MEDS ORDERED: LIDOCAINE 1% INJ 10MG/ML (20 ML MDV) ONE (14:31)
[2024-06-23] MEDS ORDERED: SUCCINYLCHOLINE CHLORIDE 200 MG/10 ML VIAL IV ONE (14:31)
[2024-06-23] MEDS ORDERED: PROPOFOL 10 MG/ML 20 ML VIAL IV ONE (14:31)
[2024-06-23] MEDS ORDERED: PHENYLEPHRINE-0.9% NACL SYG 1,000 MCG/10 ML SYRINGE ONE (14:31)
[2024-06-23] MEDS ORDERED: fentaNYL (PF) 50 MCG/ML 2 ML AMP ONE (14:31)
[2024-06-23] MEDS ORDERED: ALBUTEROL NEBULIZED 2.5 MG/3 ML INHALATION PRN (14:55)
[2024-06-23] MEDS: SODIUM CHLORIDE 0.9% 500 ML 500 ML IV ONE (15:14)
--- NOTE | 2024-06-23 15:29 | P.OP ---
Date of Procedure: 06/23/24 Preoperative Diagnosis: Left hydronephrosis secondary to left ureteral calculi Postoperative Diagnosis: Same, meatal stenosis Procedure(s) Performed: Urethral dilation, cystoscopy, left ureteral stent insertion Anesthesia: SHIRA Surgeon: Shadi Nguyen Estimated Blood Loss (ml): 0 IV fluids (ml): 200 Pathology: none sent Condition: stable Disposition: PACU Indications for Procedure: Patient is an 83-year-old white male well-known to our service. He underwent a TURP several years ago. In late October, he was hospitalized and found to have an obstructing left distal ureteral calculus. This was removed via ureteroscopy with laser lithotripsy, and his ureteral stent was subsequently removed. He had an identical episode in December. He now presents with a 3-day history of left flank pain, associated with fever. CT scan shows left hydroureteronephrosis due to to left distal ureteral calculi. Urinalysis is suggestive of infection, and he now comes for left ureteral stent insertion. Operative Findings: Meatal stenosis. Small stone at left UVJ. Obstructing calculus within the left distal ureter. Purulent drainage from left ureter and renal pelvis. Description of Procedure: The patient was taken to the operating room and placed in the dorsolithotomy position, with legs supported in Sravan stirrups. The external genitalia was prepped and draped sterilely. There was evidence of phimosis, and the urethral meatus would not accommodate the 22 Slovak Stortz cystoscopic sheath. Therefore, Maia sounds were used to dilate the distal urethra to 26 Slovak. The 30 lens was then used to introduce the 22-Slovak Stortz cystoscopic sheath through the urethra and into the bladder under direct vision. The prostatic urethra showed evidence of a previous TURP. The prostatic fossa was open. Upon entering the bladder, the bladder was drained and irrigated. The bladder was then inspected and no abnormalities were seen. Specifically, there were no tumors or foreign bodies. The right ureteral orifice appeared normal. A calculus was seen at the left ureteral orifice. The bladder was moderately trabeculated with multiple cellules. A 0.035 inch Glidewire was passed through the cystoscope. The left ureteral orifice was cannulated, and the Glidewire was slowly advanced several centimeters, at which point obstruction was met. The straight tip Glidewire was exchanged for an angled tip Glidewire, and with some manipulation it was possible to pass the Glidewire beyond the area of obstruction and up to the left renal pelvis, where it coiled. A 28 cm, 6-Slovak double-J ureteral stent was placed over the wire. Proper stent positioning was verified fluoroscopically and endoscopically. Grossly purulent material drained through the stent. With the beak of the cystoscope immediately adjacent to the distal end of the stent, urine was collected and sent for culture and sensitivity. The cystoscope was removed and the procedure was terminated. The patient tolerated the procedure well and was taken to the recovery room in stable condition.
--- NOTE | 2024-06-23 15:38 | P.HPIM ---
History of Present Illness H&P Date: 06/23/24 History of present illness; Patient is a 83-year-old male with hypertension, A-fib with pacemaker on warfarin, recurrent C. difficile infection, history of nephrolithiasis presenting for abdominal pain. Pain began 3 days ago and is located in the left lower quadrant, described as constant pressure-like sensation. Patient has taken Tylenol which mildly improved his symptoms. Patient states that he had nephrolithiasis in December. He states he does feel he had fever and weakness on admission. He currently has no symptoms of dysuria, nausea, vomiting. Patient was discharged 1 month ago for treatment of C. difficile and had remained on ongoing antibiotic treatment. And he has been having watery loose stools. He has no other complaints at this time. Patient reports absence of chills, chest p ain, palpitations, diaphoresis, dyspnea, cough, nausea, vomiting, myalgia, dizziness, and headache. Initial labs WBC 10.1, hemoglobin 10.7, platelets 338, PT 19.8, INR 2.0, sodium 133, potassium 4.6, bicarb 21, BUN 27, creatinine 1.55, glucose 102, troponin 0.035, UA finding significant for glucose 2+, blood moderate, leukocyte esterase large, urine RBC 57, urine WBC> 182. EKG done in the ER independently interpreted showed irregular rhythm heart rate of 76, no ST segment elevation or depression seen, no T-wave inversions seen. CT/AP independently interpreted in ER findings of moderate left hydroureternephrosis. Obstructing 8 mm calculus in distal ureter and additional 4 mm calculus in ureterovesical junction. Atrophic kidneys bilaterally. Spoke with the ER physician, patient admission was accepted by internal medicine service for treatment of nephrolithiasis REVIEW OF SYSTEMS: Pertinent positives and negatives noted in HPI. PHYSICAL EXAMINATION: Vitals reviewed GENERAL: No acute distress. Well developed, well nourished. Obese HEENT: Pupils are round and equally reacting to light. EOMI. No scleral icterus. Normocephalic, atraumatic. CARDIOVASCULAR: S1 and S2 present. No murmurs, rubs, or gallops. PULMONARY: Chest is clear to auscultation, no wheezing, rhonchi, or crackles. ABDOMEN: Soft, nontender, nondistended, normoactive bowel sounds. No palpable organomegaly. MUSCULOSKELETAL: No apparent joint swelling and deformities. EXTREMITIES: No apparent cyanosis, clubbing, or pedal edema. NEUROLOGICAL: The patient is alert and oriented x3, Gross neurological ex amination did not reveal any focal deficits. SKIN: No apparent rashes. Assessment and plan Patient is a 83-year-old male with hypertension, arrhythmia with pacemaker on warfarin, recurrent C. difficile infection, history of nephrolithiasis treated for nephrolithiasis. # Left-sided nephrolithiasis with hydronephrosis #Possible UTI CTAP with left-sided 8 mm calculus and 4 mm calculus seen Continue IV NS 75 Continue antibiotics Urine culture pending Plan for ureteroscopy with laser lithotripsy today Surgery consulted #Chronic diarrhea History of C. difficile C. difficile PCR pending Begin vancomycin 250 p.o. twice daily, and daptomycin 400 mg IVPB daily, and cefepime 2 g IVPB every 12 hours Continue cholestyramine twice daily ID following #PARK Initial creatinine 1.55, BUN 27 Continue IV NS as above Monitor CMP #A-fib with pacemaker on warfarin Resume home warfarin Initial INR 2.0 Monitor INR Chronic medical conditions Hypertensionresume home meds A-fibresume home meds GERDresume home meds F: IV Normal saline 75 mL/hr E: Replete as needed N: Regular diet DVT ppx: Subq heparin 5000 3 times daily Code status: Full code Anticipated discharge place: Home Anticipated discharge time: 2 to 3 days Dictation was produced using [employer] dictation software. Please excuse any grammatical, word or spelling errors. Past Medical History Past Medical History: Atrial Fibrillation, Cancer, Heart Failure, CVA/TIA, GERD/Reflux, Hyperlipidemia, Hypertension, Prostate Disorder Additional Past Medical History / Comment(s): 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 dry skin on arms, numbness in last 2 fingers to left hand, kidney stone. History of Any Multi-Drug Resistant Organisms: C-DIFF, CRE Date of last positivie culture/infection: 06/14 CDIFF MDRO Source:: Urine-CRE, Stool Past Surgical History: Cholecystectomy, Hernia Repair, Orthopedic Surgery, Pacemaker Additional Past Surgical History / Comment(s): cervical fusion, lithrotripsy, Past Anesthesia/Blood Transfusion Reactions: No Reported Reaction Additional Past Anesthesia/Blood Transfusion Reaction / Comment(s): Pt has never recieved blood. Type of Cardiac Device: Permanent Pacemaker Device Placement Date:: 2013 Past Psychological History: No Psychological Hx Reported Additional Psychological History / Comment(s): lives in senior apartments with 24 hour home care Smoking Status: Former smoker Past Alcohol Use History: None Reported Additional Past Alcohol Use History / Comment(s): quit smoking 2007 cigars and pipe Past Drug Use History: None Reported - Past Family History Father Family Medical History: Diabetes Mellitus Mother Family Medical History: Osteoarthritis (OA) Additional Family Medical History / Comment(s): arthritis Medications and Allergies Home Medications Medication Instructions Recorded Confirmed Type Acetaminophen [Tylenol] 1,000 mg PO Q6H PRN 05/30/21 06/22/24 History Albuterol Inhaler [Ventolin Hfa 2 puff INHALATION RT-Q6H PRN each 12/27/23 06/22/24 Rx Inhaler] Ramelteon 8 mg PO HS 01/10/24 06/22/24 History Potassium Chloride ER [K-Dur 10] 10 meq PO DAILY 03/18/24 06/22/24 History Nystatin 100,000 Unit/gm Powd 1 applic TOPICAL BID PRN 04/30/24 06/22/24 History [Mycostatin Powder] Warfarin [Coumadin] 2.5 mg PO SUTUTH@209904/30/24 06/22/24 History Warfarin [Coumadin] 5 mg PO MOWEFRSA@2100 04/30/24 06/22/24 History Cholestyramine (with Sugar) 4 gm PO BID #60 packet 05/12/24 06/22/24 Rx [Questran Packet] Midodrine [ProAmatine] 5 mg PO AC-TID #90 tab 05/12/24 06/22/24 Rx Pantoprazole [Protonix] 40 mg PO DAILY #30 tab 05/12/24 06/22/24 Rx Sodium Bicarbonate Tab 650 mg PO BID #60 tab 05/12/24 06/22/24 Rx Tamsulosin [Flomax] 0.4 mg PO PC-SUPPER #30 cap 05/12/24 06/22/24 Rx amLODIPine [Norvasc] 10 mg PO DAILY 14 Days #14 tab 06/04/24 06/22/24 Rx Cephalexin [Keflex] 500 mg PO ONETIME 06/22/24 06/22/24 History Vancomycin HCl See Taper PO QID 06/22/24 06/22/24 History Allergies Allergy/AdvReac Type Severity Reaction Status Date / Time No Known Allergies Allergy Verified 06/22/24 20:21 Physical Exam Vitals: Vital Signs Temp Pulse Pulse Resp BP BP Pulse Ox 06/23/24 13:59 97.4 F L 62 16 143/63 97 06/23/24 13:04 98.8 F 60 19 119/69 92 L 06/23/24 07:15 98.8 F 62 18 111/64 95 06/23/24 01:44 98.1 F 53 L 16 139/61 94 L 06/22/24 23:30 60 18 125/58 95 06/22/24 22:00 60 20 114/57 96 06/22/24 20:00 59 L 20 102/47 96 06/22/24 17:59 98.7 F 77 18 106/51 95 Intake and Output 06/23/24 06/23/24 06/23/24 06:59 14:59 22:59 Intake Total 590 500 Balance 590 500 Intake: IV 500 Oral 590 Other: Voiding Method Diaper Incontinent # Voids 2 1 # Bowel Movements 1 Weight 120 kg Results CBC & Chem 7: 06/22/24 18:39 06/22/24 18:39 Labs: Abnormal Lab Results - Last 24 Hours (Table) 06/22/24 06/22/24 06/22/24 Range/Units 18:39 18:39 18:39 RBC 3.99 L (4.30-5.90) m/uL Hgb 10.7 L (13.0-17.5) gm/dL Hct 32.4 L (39.0-53.0) % RDW 16.5 H (11.5-15.5) % Neutrophils # 7.9 H (1.3-7.7) k/uL Lymphocytes # 0.5 L (1.0-4.8) k/uL Monocytes # 1.4 H (0-1.0) k/uL PT (10.0-12.5) sec INR (<1.2) Sodium 133 L (137-145) mmol/L Carbon Dioxide 21 L (22-30) mmol/L BUN 27 H (9-20) mg/dL Creatinine 1.55 H (0.66-1.25) mg/dL Glucose 102 H (74-99) mg/dL Calcium 7.9 L (8.4-10.2) mg/dL Troponin I 0.035 H* (0.000-0.034) ng/mL Total Protein 5.7 L (6.3-8.2) g/dL Albumin 2.9 L (3.5-5.0) g/dL Urine Protein (Negative) Urine Blood (Negative) Ur Leukocyte Esterase (Negative) Urine RBC (0-5) /hpf Urine WBC (0-5) /hpf Urine Bacteria (None) /hpf 06/22/24 06/23/24 Range/Units 22:07 11:23 RBC (4.30-5.90) m/uL Hgb (13.0-17.5) gm/dL Hct (39.0-53.0) % RDW (11.5-15.5) % Neutrophils # (1.3-7.7) k/uL Lymphocytes # (1.0-4.8) k/uL Monocytes # (0-1.0) k/uL PT 19.8 H (10.0-12.5) sec INR 2.0 H (<1.2) Sodium (137-145) mmol/L Carbon Dioxide (22-30) mmol/L BUN (9-20) mg/dL Creatinine (0.66-1.25) mg/dL Glucose (74-99) mg/dL Calcium (8.4-10.2) mg/dL Troponin I (0.000-0.034) ng/mL Total Protein (6.3-8.2) g/dL Albumin (3.5-5.0) g/dL Urine Protein 2+ H (Negative) Urine Blood Moderate H (Negative) Ur Leukocyte Esterase Large H (Negative) Urine RBC 57 H (0-5) /hpf Urine WBC >182 H (0-5) /hpf Urine Bacteria Many H (None) /hpf Thrombosis Risk Factor Assmnt - Choose All That Apply Each Factor Represents 1 point: Medical pt on bed rest, Obesity (BMI >25) Other Risk Factors: Yes Each Risk Factor Represents 2 Points: Patient confined to bed Each Risk Factor Represents 3 Points: Age 75 years or older Other congenital or acquired thrombophilia - If yes, enter type in comment: No Thrombosis Risk Factor Assessment Total Risk Factor Score: 7 Thrombosis Risk Factor Assessment Level: High Risk
[2024-06-23] MEDS ORDERED: HEPARIN SODIUM,PORCINE 5,000 UNIT/ML 1 ML VIAL SQ SCH (16:00)
--- NOTE | 2024-06-23 17:22 | FL ---
Intraoperative/procedural fluoroscopic services were provided for a left ureteral stent insertion. To chelo fluoroscopy time is 22.5 seconds with a total of 1 submitted image to PACS. Total DAP [id number] Gyc m2. Please see the operative note for further details. [facility], , 06/23/2024 5:20 PM
[2024-06-23] MEDS: VANCOMYCIN 125 MG CAPSULE PO SCH (17:55)
[2024-06-23] MEDS: amLODIPine 2.5 MG TAB PO SCH (17:55)
[2024-06-23] MEDS: POTASSIUM CHLORIDE ER 10 MEQ TAB.ER.PRT PO SCH (17:55)
[2024-06-23] MEDS: TAMSULOSIN 0.4 MG CAP.ER.24H PO SCH (17:55)
[2024-06-23] MEDS: PANTOPRAZOLE 40 MG TABLET PO SCH (17:55)
[2024-06-23] MEDS: SODIUM BICARBONATE TAB 650 MG TAB PO SCH (20:38)
[2024-06-23] MEDS: CHOLESTYRAMINE (WITH SUGAR) 4 GM PACKET PO SCH (20:38)
[2024-06-23] MEDS: WARFARIN 2.5 MG TAB PO SCH (20:39)
--- NOTE | 2024-06-23 23:15 | P.CONS ---
History of Present Illness - Reason for Consult Consult date: 06/23/24 Infection Requesting physician: Pdero Shepherd - Chief Complaint Left-sided abdominal pain x 1 day - History of Present Illness Patient is a 83-year-old male with a past medical history significant for CVA TIA heart failure atrial fibrillation hypertension hyperlipidemia history of kidney stone and recurrent C. difficile colitis patient is currently on a tapering course of oral vancomycin down to 250 mg twice a day patient presented to [facility] ER concerning for left-sided abdominal pain patient started the day of presentation to the hospital patient described the pain to be sharp moderate to severe intensity without significant radiation with associated nausea but no vomiting patient denies having any diarrhea rather having solid bowel movement and denies high-grade fever on presentation to the hospital the patient was afebrile and no fever have been recorded subsequently patient was not tachycardic hypotensive or hypoxic and no need for supplemental oxygen patient did have a white count of 10.1 BUN and creatinine has been mildly elevated liver enzymes are normal urine is positive cultures pending patient did have CT abdominal pelvis which did shows moderate left hydro utero nephrosis left perinephric fat concerning for ascending infection patient received a dose of Rocephin has been admitted to hospital infectious disease was consulted for further management of antibiotic therapy Review of Systems Positive point and negatives has been mentioned in the HPI, complete review of systems was performed and all other systems are negative Past Medical History Past Medical History: Atrial Fibrillation, Cancer, Heart Failure, CVA/TIA, GERD/Reflux, Hyperlipidemia, Hypertension, Prostate Disorder Additional Past Medical History / Comment(s): 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 dry skin on arms, numbness i n last 2 fingers to left hand, kidney stone. History of Any Multi-Drug Resistant Organisms: C-DIFF, CRE Year Discovered:: 06/14 CDIFF MDRO Source:: Urine-CRE, Stool Past Surgical History: Cholecystectomy, Hernia Repair, Orthopedic Surgery, Pacemaker Additional Past Surgical History / Comment(s): cervical fusion, lithrotripsy, Past Anesthesia/Blood Transfusion Reactions: No Reported Reaction Additional Past Anesthesia/Blood Transfusion Reaction / Comm: Pt has never recieved blood. Type of Cardiac Device: Permanent Pacemaker Device Placement Date:: 2013 Past Psychological History: No Psychological Hx Reported Additional Psychological History / Comment(s): lives in senior apartments with 24 hour home care Smoking Status: Former smoker Past Alcohol Use History: None Reported Additional Past Alcohol Use History / Comment(s): quit smoking 2007 cigars and pipe Past Drug Use History: None Reported - Past Family History Father Family Medical History: Diabetes Mellitus Mother Family Medical History: Osteoarthritis (OA) Additional Family Medical History / Comment(s): arthritis Medications and Allergies Home Medications Medication Instructions Recorded Confirmed Type Acetaminophen [Tylenol] 1,000 mg PO Q6H PRN 05/30/21 06/22/24 History Albuterol Inhaler [Ventolin Hfa 2 puff INHALATION RT-Q6H PRN each 12/27/23 06/22/24 Rx Inhaler] Ramelteon 8 mg PO HS 01/10/24 06/22/24 History Potassium Chloride ER [K-Dur 10] 10 meq PO DAILY 03/18/24 06/22/24 History Nystatin 100,000 Unit/gm Powd 1 applic TOPICAL BID PRN 04/30/24 06/22/24 History [Mycostatin Powder] Warfarin [Coumadin] 2.5 mg PO SUTUTH@2100 04/30/24 06/22/24 History Warfarin [Coumadin] 5 mg PO MOWEFRSA@2100 04/30/24 06/22/24 History Cholestyramine (with Sugar) 4 gm PO BID #60 packet 05/12/24 06/22/24 Rx [Questran Packet] Midodrine [ProAmatine] 5 mg PO AC-TID #90 tab 05/12/24 06/22/24 Rx Pantoprazole [Protonix] 40 mg PO DAILY #30 tab 05/12/24 06/22/24 Rx Sodium Bicarbonate Tab 650 mg PO BID #60 tab 05/12/24 06/22/24 Rx Tamsulosin [Flomax] 0.4 mg PO PC-SUPPER #30 cap 05/12/24 06/22/24 Rx amLODIPine [Norvasc] 10 mg PO DAILY 14 Days #14 tab 06/04/24 06/22/24 Rx Cephalexin [Keflex] 500 mg PO ONETIME 06/22/24 06/22/24 History Vancomycin HCl See Taper PO QID 06/22/24 06/22/24 History Allergies Allergy/AdvReac Type Severity Reaction Status Date / Time No Known Allergies Allergy Verified 06/22/24 20:21 Physical Exam Vitals: Vital Signs Temp Pulse Pulse Resp BP BP Pulse Ox 06/23/24 07:15 98.8 F 62 18 111/64 95 06/23/24 01:44 98.1 F 53 L 16 139/61 94 L 06/22/24 23:30 60 18 125/58 95 06/22/24 22:00 60 20 114/57 96 06/22/24 20:00 59 L 20 102/47 96 06/22/24 17:59 98.7 F 77 18 106/51 95 Intake and Output 06/22/24 06/23/24 06/23/24 22:59 06:59 14:59 Intake Total 590 Balance 590 Intake: Oral 590 Other: Voiding Method Diaper Incontinent # Voids 2 1 # Bowel Movements 1 Weight 128.82 kg 120 kg GENERAL DESCRIPTION: Elderly male lying in bed, no distress. No tachypnea or accessory muscle of respiration use. HEENT: Shows Pallor , no scleral icterus. Oral mucous membrane is dry. NECK: Trachea central, no thyromegaly. LUNGS: Unlabored breathing. Clear to auscultation anteriorly. No wheeze or crackle. HEART: S1, S2, regular rate and rhythm. No loud murmur ABDOMEN: Soft, left-sided tenderness EXTREMITIES: No edema of feet. SKIN: No rash, no masses palpable. NEUROLOGICAL: The patient is awake, alert, oriented x3, mood and affect normal. Results CBC & Chem 7: 06/22/24 18:39 06/22/24 18:39 Labs: Abnormal Lab Results - Last 24 Hours (Table) 06/22/24 06/22/24 06/22/24 Range/Units 18:39 18:39 18:39 RBC 3.99 L (4.30-5.90) m/uL Hgb 10.7 L (13.0-17.5) gm/dL Hct 32.4 L (39.0-53.0) % RDW 16.5 H (11.5-15.5) % Neutrophils # 7.9 H (1.3-7.7) k/uL Lymphocytes # 0.5 L (1.0-4.8) k/uL Monocytes # 1.4 H (0-1.0) k/uL Sodium 133 L (137-145) mmol/L Carbon Dioxide 21 L (22-30) mmol/L BUN 27 H (9-20) mg/dL Creatinine 1.55 H (0.66-1.25) mg/dL Glucose 102 H (74-99) mg/dL Calcium 7.9 L (8.4-10.2) mg/dL Troponin I 0.035 H* (0.000-0.034) ng/mL Total Protein 5.7 L (6.3-8.2) g/dL Albumin 2.9 L (3.5-5.0) g/dL Urine Protein (Negative) Urine Blood (Negative) Ur Leukocyte Esterase (Negative) Urine RBC (0-5) /hpf Urine WBC (0-5) /hpf Urine Bacteria (None) /hpf 06/22/24 Range/Units 22:07 RBC (4.30-5.90) m/uL Hgb (13.0-17.5) gm/dL Hct (39.0-53.0) % RDW (11.5-15.5) % Neutrophils # (1.3-7.7) k/uL Lymphocytes # (1.0-4.8) k/uL Monocytes # (0-1.0) k/uL Sodium (137-145) mmol/L Carbon Dioxide (22-30) mmol/L BUN (9-20) mg/dL Creatinine (0.66-1.25) mg/dL Glucose (74-99) mg/dL Calcium (8.4-10.2) mg/dL Troponin I (0.000-0.034) ng/mL Total Protein (6.3-8.2) g/dL Albumin (3.5-5.0) g/dL Urine Protein 2+ H (Negative) Urine Blood Moderate H (Negative) Ur Leukocyte Esterase Large H (Negative) Urine RBC 57 H (0-5) /hpf Urine WBC >182 H (0-5) /hpf Urine Bacteria Many H (None) /hpf Assessment and Plan (1) Complicated UTI (urinary tract infection) Current Visit: Yes Status: Acute Code(s): N39.0 - URINARY TRACT INFECTION, SITE NOT SPECIFIED SNOMED Code(s): 20076725 (2) Pyelonephritis Current Visit: No Status: Acute Code(s): N12 - TUBULO-INTERSTITIAL NEPHRITIS, NOT SPCF ACUTE OR CHRONIC SNOMED Code(s): 44286922 Plan: 1patient presume hospital left-sided abdominal pain secondary to a left-sided hydroureteronephrosis kidney stone and concerning for ascending infection in this patient last urine culture positive for Pseudomonas and VRE and will need to cover for it while waiting for the repeat culture to finalize 2-patient also have a history of recurrent C. difficile colitis currently waiting for a stool transplant and is on a tapering course of oral vancomycin with the current antibiotic culture will increase the risk of flareup at this point the patient will continue on his current oral vancomycin dose of 250 mg p.o. every 12 hours and will also add probiotics Daughter at the bedside multiple question concern answered We will follow on clinical condition and cultures to further adjust medication if needed Thank you for this consultation we will follow the patient along with you Dictation was produced using [employer] dictation software. please excuse any grammatical, word or spelling errors. Time with Patient: Greater than 30
[2024-06-24] MEDS: ACETAMINOPHEN TAB 325 MG TAB PO PRN (00:59)
[2024-06-24 08:42] LABS: Basophils # (A) 0.02 X 10*3/uL (0.00-0.10); Basophils % (A) 0.3 %; Eosinophils # (A) 0.07 X 10*3/uL (0.04-0.35); Eosinophils % (A) 1.1 %; HGB 9.5 g/dL (13.0-17.0); Lymphocytes # (A) 0.49 X 10*3/uL (0.90-5.00); Lymphocytes % (A) 7.5 %; MCH 26.7 pg (27.0-32.0); MCHC 31.7 g/dL (32.0-37.0); MCV 84.3 FL (80.0-97.0); Monocytes # (A) 1.26 X 10*3/uL (0.20-1.00); Monocytes % (A) 19.3 %; NRBC Per 100 WBC 0 X 10*3/uL (0.00-0.01); Neutrophils # (A) 4.67 X 10*3/uL (1.80-7.70); Neutrophils % (A) 71.3 %; Platelet Count 313 X 10*3/uL (140-440); RBC 3.56 X 10*6/uL (4.40-5.60); RDW 17.4 % (11.5-14.5); WBC 6.54 X 10*3/uL (4.50-10.00)
[2024-06-24 08:51] LABS: BUN/Creat Ratio 14.06 Ratio (12.00-20.00); Blood Urea Nitrogen 23.9 mg/dL (9.0-27.0); Glucose 93 mg/dL (70-110)
[2024-06-24 08:52] LABS: ALT 24 U/L (10-49); AST 32 U/L (14-35); Albumin 2.9 g/dL (3.8-4.9); Albumin/Globulin Ratio 1.16 Ratio (1.60-3.17); Alkaline Phosphatase 57 U/L (41-126); Calcium 7.8 mg/dL (8.7-10.3); Carbon Dioxide 21.5 mmol/L (21.6-31.8); Chloride 106 mmol/L (96-109); Globulin 2.5 g/dL (1.6-3.3); Potassium 4.5 mmol/L (3.5-5.5); Sodium 137 mmol/L (135-145); Total Bilirubin 0.5 mg/dL (0.3-1.2); Total Protein 5.4 g/dL (6.2-8.2)
[2024-06-24 09:24] LABS: INR 1.96 sec (0.93-1.11); Prothrombin Time 20.9 sec (9.9-11.9)
--- NOTE | 2024-06-24 09:28 | P.PN ---
Subjective Progress Note Date: 06/24/24 Principal diagnosis: Left hydronephrosis secondary to left ureteral calculi, left pyonephrosis The patient presented with a UTI. CT scan showed left hydroureteronephrosis due to to left distal ureteral calculi. He underwent cystoscopy with left ureteral stent insertion on June 23, 2024. Grossly purulent urine drained from the ureter and renal pelvis. A urine culture was sent. He states that he is feeling somewhat better today. Objective - Vital Signs Vital signs: Vital Signs Temp 97.8 F 06/24/24 07:37 Pulse 62 06/24/24 07:37 Resp 17 06/24/24 07:37 BP 130/68 06/24/24 07:37 Pulse Ox 95 06/24/24 07:37 FiO2 Intake & Output 06/23/24 06/24/24 06/24/24 18:59 06:59 18:59 Intake Total 1140 Balance 1140 Weight 126.5 kg Intake: IV 600 Oral 540 Other: Voiding Method Diaper Incontinent # Voids 1 1 # Bowel Movements 1 - Constitutional General appearance: Present: average body habitus, cooperative, no acute distress - Gastrointestinal General gastrointestinal: Present: soft. Absent: distended, tenderness - Psychiatric Psychiatric: Present: A&O x's 3 - Labs CBC & Chem 7: 06/24/24 05:05 06/24/24 05:05 Labs: Abnormal Lab Results - Last 24 Hours (Table) 06/23/24 06/24/24 06/24/24 Range/Units 11:23 05:05 05:05 RBC 3.56 L (4.40-5.60) X 10*6/uL Hgb 9.5 L (13.0-17.0) g/dL Hct 30.0 L (39.6-50.0) % MCH 26.7 L (27.0-32.0) pg MCHC 31.7 L (32.0-37.0) g/dL RDW 17.4 H (11.5-14.5) % Lymphocytes # 0.49 L (0.90-5.00) X 10*3/uL Monocytes # 1.26 H (0.20-1.00) X 10*3/uL PT 19.8 H 20.9 H (10.0-12.5) sec INR 2.0 H 1.96 H (<1.2) Carbon Dioxide (21.6-31.8) mmol/L Creatinine (0.6-1.5) mg/dL Est GFR (CKD-EPI) (>=60) Calcium (8.7-10.3) mg/dL Total Protein (6.2-8.2) g/dL Albumin (3.8-4.9) g/dL Albumin/Globulin Ratio (1.60-3.17) Ratio 06/24/24 Range/Units 05:05 RBC (4.40-5.60) X 10*6/uL Hgb (13.0-17.0) g/dL Hct (39.6-50.0) % MCH (27.0-32.0) pg MCHC (32.0-37.0) g/dL RDW (11.5-14.5) % Lymphocytes # (0.90-5.00) X 10*3/uL Monocytes # (0.20-1.00) X 10*3/uL PT (10.0-12.5) sec INR (<1.2) Carbon Dioxide 21.5 L (21.6-31.8) mmol/L Creatinine 1.7 H (0.6-1.5) mg/dL Est GFR (CKD-EPI) 40 L (>=60) Calcium 7.8 L (8.7-10.3) mg/dL Total Protein 5.4 L (6.2-8.2) g/dL Albumin 2.9 L (3.8-4.9) g/dL Albumin/Globulin Ratio 1.16 L (1.60-3.17) Ratio Microbiology - Last 24 Hours (Table) 06/22/24 22:07 Urine Culture - Preliminary Urine,Voided Gram Neg Bacilli Gram Neg Bacilli#2 Assessment and Plan (1) UTI (urinary tract infection) Current Visit: Yes Status: Acute Code(s): N39.0 - URINARY TRACT INFECTION, SITE NOT SPECIFIED SNOMED Code(s): 61716568 (2) Hydronephrosis with renal and ureteral calculous obstruction Current Visit: Yes Status: Acute Code(s): N13.2 - HYDRONEPHROSIS WITH RENAL AND URETERAL CALCULOUS OBSTRUCTION SNOMED Code(s): 386943607 (3) Calculus of ureter Current Visit: Yes Status: Acute Code(s): N20.1 - CALCULUS OF URETER SNOMED Code(s): 67484386 Plan: Continue cefepime and vancomycin, pending urine culture results.
[2024-06-24 13:41] VITALS: BMI 37.8
--- NOTE | 2024-06-24 15:54 | P.PN ---
Subjective Progress Note Date: 06/24/24 History of present illness; Patient is a 83-year-old male with hypertension, A-fib with pacemaker on warfar in, recurrent C. difficile infection, history of nephrolithiasis presenting for abdominal pain. Pain began 3 days ago and is located in the left lower quadrant, described as constant pressure-like sensation. Patient has taken Tylenol which mildly improved his symptoms. Patient states that he had nephrolithiasis in December. He states he does feel he had fever and weakness on admission. He currently has no symptoms of dysuria, nausea, vomiting. Patient was discharged 1 month ago for treatment of C. difficile and had remained on ongoing antibiotic treatment. And he has been having watery loose stools. He has no other complaints at this time. Patient reports absence of chills, chest pain, palpitations, diaphoresis, dyspnea, cough, nausea, vomiting, myalgia, dizziness, and headache. Initial labs WBC 10.1, hemoglobin 10.7, platelets 338, PT 19.8, INR 2.0, sodium 133, potassium 4.6, bicarb 21, BUN 27, creatinine 1.55, glucose 102, troponin 0.035, UA finding significant for glucose 2+, blood moderate, leukocyte esterase large, urine RBC 57, urine WBC> 182. EKG done in the ER independently interpreted showed irregular rhythm heart rate of 76, no ST segment elevation or depression seen, no T-wave inversions seen. CT/AP independently interpreted in ER findings of moderate left hydr oureternephrosis. Obstructing 8 mm calculus in distal ureter and additional 4 mm calculus in ureterovesical junction. Atrophic kidneys bilaterally. June 24, 2024 Patient seen and examined at bedside. Yesterday, patient urethral dilation cystoscopy and left ureteral stent insertion, grossly purulent drainage noted. He does state he continues to have some lower left quadrant abdominal pain. Repeat urine cultures ordered. He continues on cefepime and vancomycin. Daptomycin discontinued. Today's labs WBC is 6.54, hemoglobin 9.5, platelets 313, INR 1.96, sodium 137, potassium 4.5, bicarb 21.5, 9.5, BUN 23.9, creatinine 1.7. C. difficile negative. REVIEW OF SYSTEMS: Pertinent positives and negatives noted in HPI. PHYSICAL EXAMINATION: Vitals reviewed GENERAL: No acute distress. Well developed, well nourished. Obese HEENT: Pupils are round and equally reacting to light. EOMI. No scleral icterus. Normocephalic, atraumatic. CARDIOVASCULAR: S1 and S2 present. No murmurs, rubs, or gallops. PULMONARY: Chest is clear to auscultation, no wheezing, rhonchi, or crackles. ABDOMEN: Soft, nontender, nondistended, normoactive bowel sounds. No palpable organomegaly. MUSCULOSKELETAL: No apparent joint swelling and deformities. EXTREMITIES: No apparent cyanosis, clubbing, or pedal edema. NEUROLOGICAL: The patient is alert and oriented x3, Gross neurological examination did not reveal any focal deficits. SKIN: No apparent rashes. Assessment and plan Patient is a 83-year-old male with hypertension, arrhythmia with pacemaker on warfarin, recurrent C. difficile infection, history of nephrolithiasis treated for nephrolithiasis. # Left-sided nephrolithiasis with hydronephrosis S/p cystoscopy and left ureteral stent placement #UTI CTAP with left-sided 8 mm calculus and 4 mm calculus seen Continue IV NS 75 Continue vancomycin 250 p.o. twice daily, and cefepime 2 g IVPB every 12 hours Urine culture gram-negative bacilli, repeat culture Cystoscopy with left ureteral stent placement Surgery consulted #Chronic diarrhea History of C. difficile C. difficile PCR is negative Continue cholestyramine twice daily ID following #PARK Initial creatinine 1.55, BUN 27 => creatinine 1.7, BUN 23.9 Continue IV NS as above Monitor CMP #A-fib with pacemaker on warfarin Resume home warfarin Initial INR 2.0 Monitor INR Chronic medical conditions Hypertensionresume home meds A-fibresume home meds GERDresume home meds F: IV Normal saline 75 mL/hr E: Replete as needed N: Regular diet DVT ppx: Subq heparin 5000 3 times daily Code status: Full code Anticipated discharge place: Home Anticipated discharge time: 2 to 3 days Dictation was produced using [employer] dictation software. Please excuse any grammatical, word or spelling errors. Objective - Vital Signs Vital signs: Vital Signs Temp 97.4 F L 06/24/24 13:43 Pulse 60 06/24/24 13:43 Resp 19 06/24/24 13:43 BP 121/66 06/24/24 13:43 Pulse Ox 95 06/24/24 13:43 FiO2 Intake & Output 06/23/24 06/24/24 06/24/24 18:59 06:59 18:59 Intake Total 1140 Balance 1140 Weight 126.5 kg 126.5 kg Intake: IV 600 Oral 540 Other: Voiding Method Diaper Diaper Incontinent Incontinent # Voids 1 1 1 # Bowel Movements 1 1 - Labs CBC & Chem 7: 06/24/24 05:05 06/24/24 05:05 Labs: Abnormal Lab Results - Last 24 Hours (Table) 06/24/24 06/24/24 06/24/24 Range/Units 05:05 05:05 05:05 RBC 3.56 L (4.40-5.60) X 10*6/uL Hgb 9.5 L (13.0-17.0) g/dL Hct 30.0 L (39.6-50.0) % MCH 26.7 L (27.0-32.0) pg MCHC 31.7 L (32.0-37.0) g/dL RDW 17.4 H (11.5-14.5) % Lymphocytes # 0.49 L (0.90-5.00) X 10*3/uL Monocytes # 1.26 H (0.20-1.00) X 10*3/uL PT 20.9 H (9.9-11.9) sec INR 1.96 H (0.93-1.11) sec Carbon Dioxide 21.5 L (21.6-31.8) mmol/L Creatinine 1.7 H (0.6-1.5) mg/dL Est GFR (CKD-EPI) 40 L (>=60) Calcium 7.8 L (8.7-10.3) mg/dL Total Protein 5.4 L (6.2-8.2) g/dL Albumin 2.9 L (3.8-4.9) g/dL Albumin/Globulin Ratio 1.16 L (1.60-3.17) Ratio Microbiology - Last 24 Hours (Table) 06/22/24 22:07 Urine Culture - Preliminary Urine,Voided Gram Neg Bacilli Gram Neg Bacilli#2
[2024-06-24] MEDS: WARFARIN 5 MG TAB PO SCH (20:56)
--- NOTE | 2024-06-24 22:57 | P.PN ---
Subjective Progress Note Date: 06/24/24 Principal diagnosis: Reason for follow-up is a complicated UTI Patient is a 83-year-old male with a past medical history significant for CVA TIA heart failure atrial fibrillation hypertension hyperlipidemia history of kidney stone and recurrent C. difficile colitis patient is currently on a tapering course of oral vancomycin down to 250 mg twice a day presented to hospital with left-sided abdominal pain CT abdominal pelvis with moderate left- sided hydroureteronephrosis in this patient who is status post cystoscopy urethral dilatation and left ureteral stent placement on 06/23/2024. On today's evaluation that is 06/24/2024,the patient denies any fever or any chills, patient is breathing comfortably on room air, the patient denies chest pain shortness of breath and no significant cough, patient still complaining of some left-sided abdominal pain, no nausea vomiting or diarrhea. Patient white count 6.54 creatinine is 1.7 urine is growing gram-negative bacill i Objective - Vital Signs Vital signs: Vital Signs Temp 97.8 F 06/24/24 07:37 Pulse 62 06/24/24 07:37 Resp 17 06/24/24 07:37 BP 130/68 06/24/24 07:37 Pulse Ox 95 06/24/24 07:37 FiO2 Intake & Output 06/23/24 06/24/24 06/24/24 18:59 06:59 18:59 Intake Total 1140 Balance 1140 Weight 126.5 kg 126.5 kg Intake: IV 600 Oral 540 Other: Voiding Method Diaper Diaper Incontinent Incontinent # Voids 1 1 1 # Bowel Movements 1 1 - Exam GENERAL DESCRIPTION: An elderly male lying in bed in no distress RESPIRATORY SYSTEM: Unlabored breathing , decreased breath sounds at bases HEART: S1 S2 regular rate and rhythm , ABDOMEN: Soft , no tenderness EXTREMITIES: No edema feet - Labs CBC & Chem 7: 06/24/24 05:05 06/24/24 05:05 Labs: Abnormal Lab Results - Last 24 Hours (Table) 06/24/24 06/24/24 06/24/24 Range/Units 05:05 05:05 05:05 RBC 3.56 L (4.40-5.60) X 10*6/uL Hgb 9.5 L (13.0-17.0) g/dL Hct 30.0 L (39.6-50.0) % MCH 26.7 L (27.0-32.0) pg MCHC 31.7 L (32.0-37.0) g/dL RDW 17.4 H (11.5-14.5) % Lymphocytes # 0.49 L (0.90-5.00) X 10*3/uL Monocytes # 1.26 H (0.20-1.00) X 10*3/uL PT 20.9 H (9.9-11.9) sec INR 1.96 H (0.93-1.11) sec Carbon Dioxide 21.5 L (21.6-31.8) mmol/L Creatinine 1.7 H (0.6-1.5) mg/dL Est GFR (CKD-EPI) 40 L (>=60) Calcium 7.8 L (8.7-10.3) mg/dL Total Protein 5.4 L (6.2-8.2) g/dL Albumin 2.9 L (3.8-4.9) g/dL Albumin/Globulin Ratio 1.16 L (1.60-3.17) Ratio Microbiology - Last 24 Hours (Table) 06/22/24 22:07 Urine Culture - Preliminary Urine,Voided Gram Neg Bacilli Gram Neg Bacilli#2 Assessment and Plan (1) Complicated UTI (urinary tract infection) Current Visit: Yes Status: Acute Code(s): N39.0 - URINARY TRACT INFECTION, SITE NOT SPECIFIED SNOMED Code(s): 42984709 (2) Pyelonephritis Current Visit: No Status: Acute Code(s): N12 - TUBULO-INTERSTITIAL NEPHRITIS, NOT SPCF ACUTE OR CHRONIC SNOMED Code(s): 93029927 Plan: 1patient presume hospital left-sided abdominal pain secondary to a left-sided hydroureteronephrosis kidney stone and concerning for ascending infection in this patient last urine culture positive for Pseudomonas and VRE 2-patient also have a history of recurrent C. difficile colitis currently waiting for a stool transplant and is on a tapering course of oral vancomycin with the current antibiotic culture will increase the risk of flareup at this point the patient will continue on his current oral vancomycin dose of 250 mg p. o. every 12 hours and will also add probiotics 3patient is status post urethral dilatation cystoscopy and left ureteral stent placement urine is growing gram-negative bacilli 4patient has been continued on cefepime while waiting for the ID sensitivity of the gram-negative daptomycin has been discontinued Dictation was produced using [employer] software. please excuse any grammatical, word or spelling errors.
[2024-06-25 05:15] LABS: INR 2.2 (<1.2); Prothrombin Time 21.6 sec (10.0-12.5)
[2024-06-25 09:09] LABS: Basophils # (A) 0.02 X 10*3/uL (0.00-0.10); Basophils % (A) 0.4 %; Eosinophils # (A) 0.09 X 10*3/uL (0.04-0.35); Eosinophils % (A) 1.8 %; HCT 31.8 % (39.6-50.0); HGB 9.8 g/dL (13.0-17.0); Lymphocytes % (A) 7.8 %; MCH 26.1 pg (27.0-32.0); MCHC 30.8 g/dL (32.0-37.0); MCV 84.8 FL (80.0-97.0); Mean Platelet Volume 9.7 FL (9.5-12.2); Monocytes # (A) 0.94 X 10*3/uL (0.20-1.00); Monocytes % (A) 18.4 %; NRBC Per 100 WBC 0 X 10*3/uL (0.00-0.01); Neutrophils # (A) 3.62 X 10*3/uL (1.80-7.70); Platelet Count 303 X 10*3/uL (140-440); RBC 3.75 X 10*6/uL (4.40-5.60); RDW 17.6 % (11.5-14.5)
[2024-06-25 09:17] LABS: ALT 25 U/L (10-49); AST 29 U/L (14-35); Albumin 2.9 g/dL (3.8-4.9); Albumin/Globulin Ratio 1.21 Ratio (1.60-3.17); Alkaline Phosphatase 57 U/L (41-126); BUN/Creat Ratio 14.14 Ratio (12.00-20.00); Blood Urea Nitrogen 19.8 mg/dL (9.0-27.0); Calcium 7.8 mg/dL (8.7-10.3); Carbon Dioxide 20.4 mmol/L (21.6-31.8); Chloride 108 mmol/L (96-109); Globulin 2.4 g/dL (1.6-3.3); Glucose 104 mg/dL (70-110); Potassium 4.3 mmol/L (3.5-5.5); Sodium 139 mmol/L (135-145); Total Bilirubin 0.4 mg/dL (0.3-1.2); Total Protein 5.3 g/dL (6.2-8.2)
[2024-06-25] MEDS: ERTAPENEM 1 GM in SODIUM CHLORIDE 0.9% 50 ML IVPB SCH (13:54)
--- NOTE | 2024-06-25 15:41 | P.PN ---
Subjective Progress Note Date: 06/25/24 Principal diagnosis: Reason for follow-up is a complicated UTI Patient is a 83-year-old male with a past medical history significant for CVA TIA heart failure atrial fibrillation hypertension hyperlipidemia history of kidney stone and recurrent C. difficile colitis patient is currently on a tapering course of oral vancomycin down to 250 mg twice a day presented to hospital with left-sided abdominal pain CT abdominal pelvis with moderate left- sided hydroureteronephrosis in this patient who is status post cystoscopy urethral dilatation and left ureteral stent placement on 06/23/2024. On today's evaluation that is 06/25/2024,the patient remains to be afebrile, patient is on room air not requiring supplemental oxygen and denies any shortness of breath no chest pain or cough.Patient denies having any nausea or vomiting, no abdominal pain did have some loose stool as reported by the nurse aide patient mention not feeling as good today. Patient did have a white count of 5.10 creatinine is 1.4 urine is growing a drug-resistant Enterobacter Objective - Vital Signs Vital signs: Vital Signs Temp 97.8 F 06/25/24 07:47 Pulse 62 06/25/24 07:47 Resp 19 06/25/24 07:47 BP 156/71 06/25/24 07:47 Pulse Ox 94 L 06/25/24 07:47 FiO2 Intake & Output 06/24/24 06/25/24 06/25/24 18:59 06:59 18:59 Intake Total 540 Output Total 452 Balance 540 -452 Weight 126.5 kg 125 kg Intake: Oral 540 Output: Urine 450 Stool 2 Other: Voiding Method Diaper Incontinent # Voids 1 2 1 # Bowel Movements 1 1 - Exam GENERAL DESCRIPTION: An elderly male lying in bed in no distress RESPIRATORY SYSTEM: Unlabored breathing , decreased breath sounds at bases HEART: S1 S2 regular rate and rhythm , ABDOMEN: Soft , no tenderness EXTREMITIES: No edema feet - Labs CBC & Chem 7: 06/25/24 04:37 06/25/24 04:37 Labs: Abnormal Lab Results - Last 24 Hours (Table) 06/25/24 06/25/24 06/25/24 Range/Units 04:37 04:37 04:37 RBC 3.75 L (4.40-5.60) X 10*6/uL Hgb 9.8 L (13.0-17.0) g/dL Hct 31.8 L (39.6-50.0) % MCH 26.1 L (27.0-32.0) pg MCHC 30.8 L (32.0-37.0) g/dL RDW 17.6 H (11.5-14.5) % Lymphocytes # 0.40 L (0.90-5.00) X 10*3/uL PT 21.6 H (10.0-12.5) sec INR 2.2 H (<1.2) Carbon Dioxide 20.4 L (21.6-31.8) mmol/L Est GFR (CKD-EPI) 50 L (>=60) Calcium 7.8 L (8.7-10.3) mg/dL Total Protein 5.3 L (6.2-8.2) g/dL Albumin 2.9 L (3.8-4.9) g/dL Albumin/Globulin Ratio 1.21 L (1.60-3.17) Ratio Microbiology - Last 24 Hours (Table) 06/23/24 15:13 Urine Culture - Preliminary Urine,Voided Gram Neg Bacilli 06/22/24 22:07 Urine Culture - Final Urine,Voided Enterobacter cloacae Assessment and Plan (1) Complicated UTI (urinary tract infection) Current Visit: Yes Status: Acute Code(s): N39.0 - URINARY TRACT INFECTION, SITE NOT SPECIFIED SNOMED Code(s): 36335440 (2) Pyelonephritis Current Visit: No Status: Acute Code(s): N12 - TUBULO-INTERSTITIAL NEPHRITIS, NOT SPCF ACUTE OR CHRONIC SNOMED Code(s): 41911760 Plan: 1patient [facility] hospital left-sided abdominal pain secondary to a left-sided hydroureteronephrosis kidney stone and concerning for ascending infection in this patient last urine culture positive for Pseudomonas and VRE 2-patient also have a history of recurrent C. difficile colitis currently waiting for a stool transplant and is on a tapering course of oral vancomycin with the current antibiotic culture will increase the risk of flareup at this point the patient will continue on his current oral vancomycin dose of 250 mg p.o. every 12 hours and will also add probiotics 3patient is status post urethral dilatation cystoscopy and left ureteral stent placement urine is growing drug-resistant Enterobacter 4patient cefepime will be discontinued started on ertapenem will need a short course of IV atropine upon discharge discussed with admitting team Also discussed with the daughter at the bedside Dictation was produced using [employer] dictation software. please excuse any grammatical, word or spelling errors. Time with Patient: Less than 30
--- NOTE | 2024-06-25 16:27 | P.PN ---
Subjective Progress Note Date: 06/25/24 History of present illness; Patient is a 83-year-old male with hypertension, A-fib with pacemaker on warfar in, recurrent C. difficile infection, history of nephrolithiasis presenting for abdominal pain. Pain began 3 days ago and is located in the left lower quadrant, described as constant pressure-like sensation. Patient has taken Tylenol which mildly improved his symptoms. Patient states that he had nephrolithiasis in December. He states he does feel he had fever and weakness on admission. He currently has no symptoms of dysuria, nausea, vomiting. Patient was discharged 1 month ago for treatment of C. difficile and had remained on ongoing antibiotic treatment. And he has been having watery loose stools. He has no other complaints at this time. Patient reports absence of chills, chest pain, palpitations, diaphoresis, dyspnea, cough, nausea, vomiting, myalgia, dizziness, and headache. Initial labs WBC 10.1, hemoglobin 10.7, platelets 338, PT 19.8, INR 2.0, sodium 133, potassium 4.6, bicarb 21, BUN 27, creatinine 1.55, glucose 102, troponin 0.035, UA finding significant for glucose 2+, blood moderate, leukocyte esterase large, urine RBC 57, urine WBC> 182. EKG done in the ER independently interpreted showed irregular rhythm heart rate of 76, no ST segment elevation or depression seen, no T-wave inversions seen. CT/AP independently interpreted in ER findings of moderate left hydr oureternephrosis. Obstructing 8 mm calculus in distal ureter and additional 4 mm calculus in ureterovesical junction. Atrophic kidneys bilaterally. June 24, 2024 Patient seen and examined at bedside. Yesterday, patient urethral dilation cystoscopy and left ureteral stent insertion, grossly purulent drainage noted. He does state he continues to have some lower left quadrant abdominal pain. Repeat urine cultures ordered. He continues on cefepime and vancomycin. Daptomycin discontinued. Today's labs WBC is 6.54, hemoglobin 9.5, platelets 313, INR 1.96, sodium 137, potassium 4.5, bicarb 21.5, 9.5, BUN 23.9, creatinine 1.7. C. difficile negative. June 25, 2024 Patient seen and examined at bedside. No acute events overnight. He does state he continues to have some lower left quadrant abdominal pain. He continues on vancomycin and started on ertapenem. Urine culture with Enterobacter cloacae sensitive ertapenem. Midline to be placed to continue IV antibiotic outpatient. Today's labs WBC 5.1, hemoglobin 9.8, platelets 303, sodium 139, potassium 4.3, bicarb 20.4, BUN 19.8, creatinine 1.4, glucose 104. REVIEW OF SYSTEMS: Pertinent positives and negatives noted in HPI. PHYSICAL EXAMINATION: Vitals reviewed GENERAL: No acute distress. Well developed, well nourished. Obese HEENT: Pupils are round and equally reacting to light. EOMI. No scleral icterus. Normocephalic, atraumatic. CARDIOVASCULAR: S1 and S2 present. No murmurs, rubs, or gallops. PULMONARY: Chest is clear to auscultation, no wheezing, rhonchi, or crackles. ABDOMEN: Soft, nontender, nondistended, normoactive bowel sounds. No palpable organomegaly. MUSCULOSKELETAL: No apparent joint swelling and deformities. EXTREMITIES: No apparent cyanosis, clubbing, or pedal edema. NEUROLOGICAL: The patient is alert and oriented x3, Gross neurological examination did not reveal any focal deficits. SKIN: No apparent rashes. Assessment and plan Patient is a 83-year-old male with hypertension, arrhythmia with pacemaker on warfarin, recurrent C. difficile infection, history of nephrolithiasis treated for nephrolithiasis. # Left-sided nephrolithiasis with hydronephrosis S/p cystoscopy and left ureteral stent placement #UTI CTAP with left-sided 8 mm calculus and 4 mm calculus seen Continue IV NS 75 Continue vancomycin 250 p.o. twice daily, discontinued cefepime Begin ertapenem 1 g IVPB daily, midline placement Urine culture Enterobacter cloacae, repeat culture Status post cystoscopy with left ureteral stent placement Urology following #Chronic diarrhea History of C. difficile C. difficile PCR is negative Continue cholestyramine twice daily ID following #PARK, resolved Initial creatinine 1.55, BUN 27 => creatinine 1.7, BUN 23.9 => BUN 19.8, creatinine 1.4 Continue IV NS as above Monitor CMP #A-fib with pacemaker on warfarin Resume home warfarin Initial INR 2.0 Monitor INR Chronic medical conditions Hypertensionresume home meds A-fibresume home meds GERDresume home meds F: IV Normal saline 75 mL/hr E: Replete as needed N: Regular diet DVT ppx: Warfarin Code status: Full code Anticipated discharge place: Home Anticipated discharge time: Tomorrow Dictation was produced using [employer] dictation software. Please excuse any grammatical, word or spelling errors. Objective - Vital Signs Vital signs: Vital Signs Temp 97.9 F 06/25/24 13:22 Pulse 60 06/25/24 13:22 Resp 17 06/25/24 13:22 BP 145/60 06/25/24 13:22 Pulse Ox 92 L 06/25/24 13:22 FiO2 Intake & Output 06/24/24 06/25/24 06/25/24 18:59 06:59 18:59 Intake Total 540 Output Total 452 2 Balance 540 -452 -2 Weight 126.5 kg 125 kg Intake: Oral 540 Output: Urine 450 Stool 2 2 Other: Voiding Method Diaper Diaper Incontinent Incontinent # Voids 1 2 1 # Bowel Movements 1 1 - Labs CBC & Chem 7: 06/25/24 04:37 06/25/24 04:37 Labs: Abnormal Lab Results - Last 24 Hours (Table) 06/25/24 06/25/24 06/25/24 Range/Units 04:37 04:37 04:37 RBC 3.75 L (4.40-5.60) X 10*6/uL Hgb 9.8 L (13.0-17.0) g/dL Hct 31.8 L (39.6-50.0) % MCH 26.1 L (27.0-32.0) pg MCHC 30.8 L (32.0-37.0) g/dL RDW 17.6 H (11.5-14.5) % Lymphocytes # 0.40 L (0.90-5.00) X 10*3/uL PT 21.6 H (10.0-12.5) sec INR 2.2 H (<1.2) Carbon Dioxide 20.4 L (21.6-31.8) mmol/L Est GFR (CKD-EPI) 50 L (>=60) Calcium 7.8 L (8.7-10.3) mg/dL Total Protein 5.3 L (6.2-8.2) g/dL Albumin 2.9 L (3.8-4.9) g/dL Albumin/Globulin Ratio 1.21 L (1.60-3.17) Ratio Microbiology - Last 24 Hours (Table) 06/23/24 15:13 Urine Culture - Preliminary Urine,Voided Gram Neg Bacilli 06/22/24 22:07 Urine Culture - Final Urine,Voided Enterobacter cloacae
--- NOTE | 2024-06-25 22:04 | P.PN ---
Subjective Progress Note Date: 06/25/24 Principal diagnosis: Left hydronephrosis secondary to left ureteral calculi, left pyonephrosis The patient presented with a UTI. CT scan showed left hydroureteronephrosis due to to left distal ureteral calculi. He underwent cystoscopy with left ureteral stent insertion on June 23, 2024. Grossly purulent urine drained from the ureter and renal pelvis. Urine culture shows an Enterobacter UTI. He states that he feels worse today. His primary complaint is feeling cold, and he also reports mild left-sided discomfort. Objective - Vital Signs Vital signs: Vital Signs Temp 97.8 F 06/25/24 07:47 Pulse 62 06/25/24 07:47 Resp 19 06/25/24 07:47 BP 156/71 06/25/24 07:47 Pulse Ox 94 L 06/25/24 07:47 FiO2 Intake & Output 06/24/24 06/25/24 06/25/24 18:59 06:59 18:59 Intake Total 540 Output Total 452 2 Balance 540 -452 -2 Weight 126.5 kg 125 kg Intake: Oral 540 Output: Urine 450 Stool 2 2 Other: Voiding Method Diaper Diaper Incontinent Incontinent # Voids 1 2 1 # Bowel Movements 1 1 - Constitutional General appearance: Present: average body habitus, cooperative, no acute distress - Psychiatric Psychiatric: Present: A&O x's 3 - Labs CBC & Chem 7: 06/25/24 04:37 06/25/24 04:37 Labs: Abnormal Lab Results - Last 24 Hours (Table) 06/25/24 06/25/24 06/25/24 Range/Units 04:37 04:37 04:37 RBC 3.75 L (4.40-5.60) X 10*6/uL Hgb 9.8 L (13.0-17.0) g/dL Hct 31.8 L (39.6-50.0) % MCH 26.1 L (27.0-32.0) pg MCHC 30.8 L (32.0-37.0) g/dL RDW 17.6 H (11.5-14.5) % Lymphocytes # 0.40 L (0.90-5.00) X 10*3/uL PT 21.6 H (10.0-12.5) sec INR 2.2 H (<1.2) Carbon Dioxide 20.4 L (21.6-31.8) mmol/L Est GFR (CKD-EPI) 50 L (>=60) Calcium 7.8 L (8.7-10.3) mg/dL Total Protein 5.3 L (6.2-8.2) g/dL Albumin 2.9 L (3.8-4.9) g/dL Albumin/Globulin Ratio 1.21 L (1.60-3.17) Ratio Microbiology - Last 24 Hours (Table) 06/23/24 15:13 Urine Culture - Preliminary Urine,Voided Gram Neg Bacilli 06/22/24 22:07 Urine Culture - Final Urine,Voided Enterobacter cloacae Assessment and Plan Assessment: Urine culture shows Enterobacter, which was seen on cultures performed earlier this year. (1) UTI (urinary tract infection) Current Visit: Yes Status: Acute Code(s): N39.0 - URINARY TRACT INFECTION, SITE NOT SPECIFIED SNOMED Code(s): 58632884 (2) Hydronephrosis with renal and ureteral calculous obstruction Current Visit: Yes Status: Acute Code(s): N13.2 - HYDRONEPHROSIS WITH RENAL AND URETERAL CALCULOUS OBSTRUCTION SNOMED Code(s): 879016454 (3) Calculus of ureter Current Visit: Yes Status: Acute Code(s): N20.1 - CALCULUS OF URETER SNOMED Code(s): 54337827 Plan: Continue Ertapenem. No further urologic intervention is planned at this time. He will be scheduled to undergo cystoscopy, stent removal, ureteroscopy with laser lithotripsy once the UTI has resolved.
[2024-06-26 08:41] LABS: HCT 31.3 % (39.6-50.0); HGB 9.8 g/dL (13.0-17.0); MCH 26.4 pg (27.0-32.0); MCHC 31.3 g/dL (32.0-37.0); MCV 84.4 FL (80.0-97.0); NRBC Per 100 WBC 0 X 10*3/uL (0.00-0.01); Platelet Count 332 X 10*3/uL (140-440); RBC 3.71 X 10*6/uL (4.40-5.60); RDW 17.2 % (11.5-14.5); WBC 4.99 X 10*3/uL (4.50-10.00)
[2024-06-26 08:42] LABS: Basophils # (A) 0.03 X 10*3/uL (0.00-0.10); Basophils % (A) 0.6 %; Eosinophils # (A) 0.16 X 10*3/uL (0.04-0.35); Eosinophils % (A) 3.2 %; Lymphocytes # (A) 0.38 X 10*3/uL (0.90-5.00); Lymphocytes % (A) 7.6 %; Monocytes # (A) 0.95 X 10*3/uL (0.20-1.00); Neutrophils # (A) 3.45 X 10*3/uL (1.80-7.70); Neutrophils % (A) 69.2 %
[2024-06-26 08:54] LABS: ALT 22 U/L (10-49); AST 27 U/L (14-35); Alkaline Phosphatase 63 U/L (41-126); Blood Urea Nitrogen 15.6 mg/dL (9.0-27.0); Calcium 8.2 mg/dL (8.7-10.3); Carbon Dioxide 20.8 mmol/L (21.6-31.8); Chloride 110 mmol/L (96-109); Globulin 2.5 g/dL (1.6-3.3); Glucose 100 mg/dL (70-110); Potassium 4.5 mmol/L (3.5-5.5); Sodium 140 mmol/L (135-145); Total Bilirubin 0.3 mg/dL (0.3-1.2); Total Protein 5.5 g/dL (6.2-8.2)
--- NOTE | 2024-06-26 10:00 | P.PN ---
Subjective Progress Note Date: 06/26/24 Principal diagnosis: Left hydronephrosis secondary to left ureteral calculi, left pyonephrosis The patient presented with a UTI. CT scan showed left hydroureteronephrosis due to to left distal ureteral calculi. He underwent cystoscopy with left ureteral stent insertion on June 23, 2024. Grossly purulent urine drained from the ureter and renal pelvis. Urine culture shows an Enterobacter UTI. He states that he feels about the same today, though he is vague regarding this. Objective - Vital Signs Vital signs: Vital Signs Temp 97.8 F 06/26/24 07:37 Pulse 63 06/26/24 07:37 Resp 17 06/26/24 07:37 BP 149/68 06/26/24 07:37 Pulse Ox 94 L 06/26/24 07:37 FiO2 Intake & Output 06/25/24 06/26/24 06/26/24 18:59 06:59 18:59 Intake Total 540 200 Output Total 627 625 Balance -87 -425 Weight 125.5 kg Intake: Oral 540 200 Output: Urine 625 625 Stool 2 Other: Voiding Method Diaper Diaper Incontinent Incontinent External Catheter # Voids 1 # Bowel Movements 1 1 - Constitutional General appearance: Present: average body habitus, cooperative, no acute distres s - Psychiatric Psychiatric: Present: A&O x's 3 - Labs CBC & Chem 7: 06/26/24 05:20 06/26/24 05:20 Labs: Abnormal Lab Results - Last 24 Hours (Table) 06/26/24 06/26/24 Range/Units 05:20 05:20 RBC 3.71 L (4.40-5.60) X 10*6/uL Hgb 9.8 L (13.0-17.0) g/dL Hct 31.3 L (39.6-50.0) % MCH 26.4 L (27.0-32.0) pg MCHC 31.3 L (32.0-37.0) g/dL RDW 17.2 H (11.5-14.5) % Lymphocytes # 0.38 L (0.90-5.00) X 10*3/uL Chloride 110 H (96-109) mmol/L Carbon Dioxide 20.8 L (21.6-31.8) mmol/L Est GFR (CKD-EPI) 55 L (>=60) Calcium 8.2 L (8.7-10.3) mg/dL Total Protein 5.5 L (6.2-8.2) g/dL Albumin 3.0 L (3.8-4.9) g/dL Albumin/Globulin Ratio 1.20 L (1.60-3.17) Ratio Microbiology - Last 24 Hours (Table) 06/23/24 15:13 Urine Culture - Preliminary Urine,Voided Gram Neg Bacilli Assessment and Plan Assessment: Urine culture shows Enterobacter, which was seen on cultures performed earlier this year. (1) UTI (urinary tract infection) Current Visit: Yes Status: Acute Code(s): N39.0 - URINARY TRACT INFECTION, SITE NOT SPECIFIED SNOMED Code(s): 96349267 (2) Hydronephrosis with renal and ureteral calculous obstruction Current Visit: Yes Status: Acute Code(s): N13.2 - HYDRONEPHROSIS WITH RENAL AND URETERAL CALCULOUS OBSTRUCTION SNOMED Code(s): 437499565 (3) Calculus of ureter Current Visit: Yes Status: Acute Code(s): N20.1 - CALCULUS OF URETER SNOMED Code(s): 65045799 Plan: Arrangements are being made for the patient to be treated with outpatient IV antibiotic therapy. No further urologic intervention is planned at this time. He will follow-up with Dr. Orellana upon discharge, and arrangements will be made for him to undergo cystoscopy, stent removal, and ureteroscopy with laser lithotripsy once the UTI has resolved.
[2024-06-26 11:13] LABS: INR 2.3 sec (0.93-1.11); Prothrombin Time 24.7 sec (9.9-11.9)
--- NOTE | 2024-06-26 12:10 | P.PN ---
Subjective Progress Note Date: 06/26/24 History of present illness; Patient is a 83-year-old male with hypertension, A-fib with pacemaker on warfar in, recurrent C. difficile infection, history of nephrolithiasis presenting for abdominal pain. Pain began 3 days ago and is located in the left lower quadrant, described as constant pressure-like sensation. Patient has taken Tylenol which mildly improved his symptoms. Patient states that he had nephrolithiasis in December. He states he does feel he had fever and weakness on admission. He currently has no symptoms of dysuria, nausea, vomiting. Patient was discharged 1 month ago for treatment of C. difficile and had remained on ongoing antibiotic treatment. And he has been having watery loose stools. He has no other complaints at this time. Patient reports absence of chills, chest pain, palpitations, diaphoresis, dyspnea, cough, nausea, vomiting, myalgia, dizziness, and headache. Initial labs WBC 10.1, hemoglobin 10.7, platelets 338, PT 19.8, INR 2.0, sodium 133, potassium 4.6, bicarb 21, BUN 27, creatinine 1.55, glucose 102, troponin 0.035, UA finding significant for glucose 2+, blood moderate, leukocyte esterase large, urine RBC 57, urine WBC> 182. EKG done in the ER independently interpreted showed irregular rhythm heart rate of 76, no ST segment elevation or depression seen, no T-wave inversions seen. CT/AP independently interpreted in ER findings of moderate left hydr oureternephrosis. Obstructing 8 mm calculus in distal ureter and additional 4 mm calculus in ureterovesical junction. Atrophic kidneys bilaterally. June 24, 2024 Patient seen and examined at bedside. Yesterday, patient urethral dilation cystoscopy and left ureteral stent insertion, grossly purulent drainage noted. He does state he continues to have some lower left quadrant abdominal pain. Repeat urine cultures ordered. He continues on cefepime and vancomycin. Daptomycin discontinued. Today's labs WBC is 6.54, hemoglobin 9.5, platelets 313, INR 1.96, sodium 137, potassium 4.5, bicarb 21.5, 9.5, BUN 23.9, creatinine 1.7. C. difficile negative. June 25, 2024 Patient seen and examined at bedside. No acute events overnight. He does state he continues to have some lower left quadrant abdominal pain. He continues on vancomycin and started on ertapenem. Urine culture with Enterobacter cloacae sensitive ertapenem. Midline to be placed to continue IV antibiotic outpatient. Today's labs WBC 5.1, hemoglobin 9.8, platelets 303, sodium 139, potassium 4.3, bicarb 20.4, BUN 19.8, creatinine 1.4, glucose 104. June 26, 2024 Patient seen and examined at bedside. No acute events overnight. Midline placed yesterday and working adequately. He does state he continues to have some lower left quadrant abdominal pain. Daughter at bedside states he continues to have concerns about his weakness. PT OT to reevaluate. He continues on vancomycin and ertapenem. Today's labs WBC 4.99, hemoglobin 9.8, PT 24.7, INR 2.3, sodium 140, potassium 4.5, bicarb 20.8, creatinine 1.3, glucose 100. REVIEW OF SYSTEMS: Pertinent positives and negatives noted in HPI. PHYSICAL EXAMINATION: Vitals reviewed GENERAL: No acute distress. Well developed, well nourished. Obese HEENT: Pupils are round and equally reacting to light. EOMI. No scleral icterus. Normocephalic, atraumatic. CARDIOVASCULAR: S1 and S2 present. No murmurs, rubs, or gallops. PULMONARY: Chest is clear to auscultation, no wheezing, rhonchi, or crackles. ABDOMEN: Soft, nontender, nondistended, normoactive bowel sounds. No palpable organomegaly. MUSCULOSKELETAL: No apparent joint swelling and deformities. EXTREMITIES: No apparent cyanosis, clubbing, or pedal edema. NEUROLOGICAL: The patient is alert and oriented x3, Gross neurological examination did not reveal any focal deficits. SKIN: No apparent rashes. Assessment and plan Patient is a 83-year-old male with hypertension, arrhythmia with pacemaker on warfarin, recurrent C. difficile infection, history of nephrolithiasis treated for nephrolithiasis. # Left-sided nephrolithiasis with hydronephrosis S/p cystoscopy and left ureter al stent placement #UTI CTAP with left-sided 8 mm calculus and 4 mm calculus seen Continue IV NS 75 Continue vancomycin 250 p.o. twice daily, discontinued cefepime Begin ertapenem 1 g IVPB daily, midline placement Urine culture Enterobacter cloacae, repeat culture Status post cystoscopy with left ureteral stent placement Plan to undergo cystoscopy, stent removal and ureteroscopy with laser lithotripsy at a later date once UTI is resolved Urology following #Generalized weakness PT OT to evaluate #Chronic diarrhea History of C. difficile C. difficile PCR is negative Continue cholestyramine twice daily ID following #PARK, resolved Initial creatinine 1.55, BUN 27 => creatinine 1.7, BUN 23.9 => BUN 19.8, creatinine 1.4 Continue IV NS as above Monitor CMP #A-fib with pacemaker on warfarin Resume home warfarin Initial INR 2.0 Monitor INR Chronic medical conditions Hypertensionresume home meds A-fibresume home meds GERDresume home meds F: IV Normal saline 75 mL/hr E: Replete as needed N: Regular diet DVT ppx: Warfarin Code status: Full code Anticipated discharge place: Home Anticipated discharge time: Tomorrow Dictation was produced using [employer] dictation software. Please excuse any grammatical, word or spelling errors. Objective - Vital Signs Vital signs: Vital Signs Temp 97.8 F 06/26/24 07:37 Pulse 63 06/26/24 07:37 Resp 17 06/26/24 07:37 BP 149/68 06/26/24 07:37 Pulse Ox 94 L 06/26/24 07:37 FiO2 Intake & Output 06/25/24 06/26/24 06/26/24 18:59 06:59 18:59 Intake Total 540 200 Output Total 627 625 Balance -87 -425 Weight 125.5 kg Intake: Oral 540 200 Output: Urine 625 625 Stool 2 Other: Voiding Method Diaper Diaper Incontinent Incontinent External Catheter # Voids 1 # Bowel Movements 1 1 - Labs CBC & Chem 7: 06/26/24 05:20 06/26/24 05:20 Labs: Abnormal Lab Results - Last 24 Hours (Table) 06/26/24 06/26/24 06/26/24 Range/Units 05:20 05:20 05:20 RBC 3.71 L (4.40-5.60) X 10*6/uL Hgb 9.8 L (13.0-17.0) g/dL Hct 31.3 L (39.6-50.0) % MCH 26.4 L (27.0-32.0) pg MCHC 31.3 L (32.0-37.0) g/dL RDW 17.2 H (11.5-14.5) % Lymphocytes # 0.38 L (0.90-5.00) X 10*3/uL PT 24.7 H (9.9-11.9) sec INR 2.30 H (0.93-1.11) sec Chloride 110 H (96-109) mmol/L Carbon Dioxide 20.8 L (21.6-31.8) mmol/L Est GFR (CKD-EPI) 55 L (>=60) Calcium 8.2 L (8.7-10.3) mg/dL Total Protein 5.5 L (6.2-8.2) g/dL Albumin 3.0 L (3.8-4.9) g/dL Albumin/Globulin Ratio 1.20 L (1.60-3.17) Ratio Microbiology - Last 24 Hours (Table) 06/23/24 15:13 Urine Culture - Preliminary Urine,Voided Gram Neg Bacilli
--- NOTE | 2024-06-26 12:40 | P.PN ---
Subjective Progress Note Date: 06/26/24 Principal diagnosis: Reason for follow-up is a complicated UTI Patient is a 83-year-old male with a past medical history significant for CVA TIA heart failure atrial fibrillation hypertension hyperlipidemia history of kidney stone and recurrent C. difficile colitis patient is currently on a tapering course of oral vancomycin down to 250 mg twice a day presented to hospital with left-sided abdominal pain CT abdominal pelvis with moderate left- sided hydroureteronephrosis in this patient who is status post cystoscopy urethral dilatation and left ureteral stent placement on 06/23/2024. On today's evaluation that is 06/26/2024, the patient continues to be afebrile, the patient is on room air and breathing comfortably, the Pt denies having any chest pain or cough, the patient denies having any abdominal pain no vomiting, did have a solid bowel movement, still complaining of feeling weak. Patient white count is 4.9, creatinine is 1.3 stool for C. difficile reported negative urine with a drug-resistant Enterobacter Objective - Vital Signs Vital signs: Vital Signs Temp 97.8 F 06/26/24 07:37 Pulse 63 06/26/24 07:37 Resp 17 06/26/24 07:37 BP 149/68 06/26/24 07:37 Pulse Ox 94 L 06/26/24 07:37 FiO2 Intake & Output 06/25/24 06/26/24 06/26/24 18:59 06:59 18:59 Intake Total 540 200 Output Total 627 625 Balance -87 -425 Weight 125.5 kg Intake: Oral 540 200 Output: Urine 625 625 Stool 2 Other: Voiding Method Diaper Diaper Incontinent Incontinent External Catheter # Voids 1 # Bowel Movements 1 1 - Exam GENERAL DESCRIPTION: An elderly male lying in bed in no distress RESPIRATORY SYSTEM: Unlabored breathing , decreased breath sounds at bases HEART: S1 S2 regular rate and rhythm , ABDOMEN: Soft , no tenderness EXTREMITIES: No edema feet - Labs CBC & Chem 7: 06/26/24 05:20 06/26/24 05:20 Labs: Abnormal Lab Results - Last 24 Hours (Table) 06/26/24 06/26/24 Range/Units 05:20 05:20 RBC 3.71 L (4.40-5.60) X 10*6/uL Hgb 9.8 L (13.0-17.0) g/dL Hct 31.3 L (39.6-50.0) % MCH 26.4 L (27.0-32.0) pg MCHC 31.3 L (32.0-37.0) g/dL RDW 17.2 H (11.5-14.5) % Lymphocytes # 0.38 L (0.90-5.00) X 10*3/uL Chloride 110 H (96-109) mmol/L Carbon Dioxide 20.8 L (21.6-31.8) mmol/L Est GFR (CKD-EPI) 55 L (>=60) Calcium 8.2 L (8.7-10.3) mg/dL Total Protein 5.5 L (6.2-8.2) g/dL Albumin 3.0 L (3.8-4.9) g/dL Albumin/Globulin Ratio 1.20 L (1.60-3.17) Ratio Microbiology - Last 24 Hours (Table) 06/23/24 15:13 Urine Culture - Preliminary Urine,Voided Gram Neg Bacilli Assessment and Plan (1) Complicated UTI (urinary tract infection) Current Visit: Yes Status: Acute Code(s): N39.0 - URINARY TRACT INFECTION, SITE NOT SPECIFIED SNOMED Code(s): 34254630 (2) Pyelonephritis Current Visit: No Status: Acute Code(s): N12 - TUBULO-INTERSTITIAL NEPHRITIS, NOT SPCF ACUTE OR CHRONIC SNOMED Code(s): 01772007 Plan: 1patient presume hospital left-sided abdominal pain secondary to a left-sided hydroureteronephrosis kidney stone and concerning for ascending infection in this patient last urine culture positive for Pseudomonas and VRE 2-patient also have a history of recurrent C. difficile colitis currently waiting for a stool transplant and is on a tapering course of oral vancomycin with the current antibiotic culture will increase the risk of flareup at this point the patient will continue on his current oral vancomycin dose of 250 mg p.o. every 12 hours and will also add probiotics 3patient is status post urethral dilatation cystoscopy and left ureteral stent placement urine is growing drug-resistant Enterobacter 4patient will be treated with ertapenem we will consider at least a 10-day course for his underlying pyelonephritis explained to the daughter at the bedside he did get a midline Dictation was produced using [employer] dictation software. please excuse any gramm atical, word or spelling errors. Time with Patient: Less than 30
[2024-06-27 06:05] LABS: INR 2.2 (<1.2)
--- NOTE | 2024-06-27 09:14 | P.PN ---
Subjective Progress Note Date: 06/27/24 Principal diagnosis: Left hydronephrosis secondary to left ureteral calculi, left pyonephrosis The patient presented with a UTI. CT scan showed left hydroureteronephrosis due to to left distal ureteral calculi. He underwent cystoscopy with left ureteral stent insertion on June 23, 2024. Grossly purulent urine drained from the ureter and renal pelvis. Urine culture shows an Enterobacter UTI. He states that he feels better today. He denies flank pain, and states that his only pain is related to a sacral pressure ulcer. Objective - Vital Signs Vital signs: Vital Signs Temp 97.4 F L 06/27/24 00:46 Pulse 60 06/27/24 00:46 Resp 18 06/27/24 00:46 BP 136/68 06/27/24 00:46 Pulse Ox 95 06/27/24 00:46 FiO2 Intake & Output 06/26/24 06/27/24 06/27/24 18:59 06:59 18:59 Intake Total 210 Output Total 800 950 Balance -590 -950 Intake: Intake, IV Titration 210 Amount Ertapenem 1 gm In Sodium 50 Chloride 0.9% 50 ml @ 100 mls/hr IVPB DAILY@1200 [facility] Rx#:[id number] Sodium Chloride 0.9% 1, 160 000 ml @ 75 mls/hr IV . [id number] [facility] Rx#:[id number] Output: Urine 800 950 Other: Voiding Method Diaper Diaper Incontinent Incontinent External Catheter External Catheter # Voids 1 # Bowel Movements 1 - Constitutional General appearance: Present: average body habitus, cooperative, no acute distress - Psychiatric Psychiatric: Present: A&O x's 3 - Labs CBC & Chem 7: 06/26/24 05:20 06/26/24 05:20 Labs: Abnormal Lab Results - Last 24 Hours (Table) 06/26/24 06/26/24 06/26/24 Range/Units 05:20 05:20 05:20 RBC 3.71 L (4.40-5.60) X 10*6/uL Hgb 9.8 L (13.0-17.0) g/dL Hct 31.3 L (39.6-50.0) % MCH 26.4 L (27.0-32.0) pg MCHC 31.3 L (32.0-37.0) g/dL RDW 17.2 H (11.5-14.5) % Lymphocytes # 0.38 L (0.90-5.00) X 10*3/uL PT 24.7 H (9.9-11.9) sec INR 2.30 H (0.93-1.11) sec Chloride 110 H (96-109) mmol/L Carbon Dioxide 20.8 L (21.6-31.8) mmol/L Est GFR (CKD-EPI) 55 L (>=60) Calcium 8.2 L (8.7-10.3) mg/dL Total Protein 5.5 L (6.2-8.2) g/dL Albumin 3.0 L (3.8-4.9) g/dL Albumin/Globulin Ratio 1.20 L (1.60-3.17) Ratio 06/27/24 Range/Units 05:47 RBC (4.40-5.60) X 10*6/uL Hgb (13.0-17.0) g/dL Hct (39.6-50.0) % MCH (27.0-32.0) pg MCHC (32.0-37.0) g/dL RDW (11.5-14.5) % Lymphocytes # (0.90-5.00) X 10*3/uL PT 22.0 H (9.9-11.9) sec INR 2.2 H (0.93-1.11) sec Chloride (96-109) mmol/L Carbon Dioxide (21.6-31.8) mmol/L Est GFR (CKD-EPI) (>=60) Calcium (8.7-10.3) mg/dL Total Protein (6.2-8.2) g/dL Albumin (3.8-4.9) g/dL Albumin/Globulin Ratio (1.60-3.17) Ratio Microbiology - Last 24 Hours (Table) 06/23/24 15:13 Urine Culture - Final Urine,Voided Enterobacter cloacae Assessment and Plan Assessment: Urine culture shows Enterobacter, which was seen on cultures performed earlier this year. (1) UTI (urinary tract infection) Current Visit: Yes Status: Acute Code(s): N39.0 - URINARY TRACT INFECTION, SITE NOT SPECIFIED SNOMED Code(s): 00998951 (2) Hydronephrosis with renal and ureteral calculous obstruction Current Visit: Yes Status: Acute Code(s): N13.2 - HYDRONEPHROSIS WITH RENAL AND URETERAL CALCULOUS OBSTRUCTION SNOMED Code(s): 143944431 (3) Calculus of ureter Current Visit: Yes Status: Acute Code(s): N20.1 - CALCULUS OF URETER SNOMED Code(s): 81674827 Plan: Arrangements are being made for the patient to be treated with outpatient IV antibiotic therapy. No further urologic intervention is planned at this time, and he is urologically stable for discharge. He will follow-up with Dr. Orellana upon discharge, and arrangements will be made for him to undergo cystoscopy, stent removal, and ureteroscopy with laser lithotripsy once the UTI has resolved.
[2024-06-27 10:05] LABS: Basophils # (A) 0.04 X 10*3/uL (0.00-0.10); Basophils % (A) 0.8 %; Eosinophils # (A) 0.25 X 10*3/uL (0.04-0.35); Eosinophils % (A) 4.8 %; HCT 32.1 % (39.6-50.0); Lymphocytes % (A) 9.6 %; MCH 26.3 pg (27.0-32.0); MCHC 31.2 g/dL (32.0-37.0); MCV 84.5 FL (80.0-97.0); Monocytes # (A) 0.72 X 10*3/uL (0.20-1.00); Monocytes % (A) 13.8 %; NRBC Per 100 WBC 0 X 10*3/uL (0.00-0.01); Neutrophils # (A) 3.67 X 10*3/uL (1.80-7.70); Neutrophils % (A) 70.2 %; Platelet Count 375 X 10*3/uL (140-440); RDW 17.2 % (11.5-14.5); WBC 5.22 X 10*3/uL (4.50-10.00)
--- NOTE | 2024-06-27 12:11 | P.DS ---
Providers Date of admission: 06/22/24 22:55 Expected date of discharge: 06/27/24 Attending physician: Carina Knott Consults: 06/22/24 22:55 Consult Physician Routine Consulting Provider: Shadi Nguyen Consult Reason/Comments: stone Do you want consulting provider notified?: Yes Consult Physician Routine Consulting Provider: Aj Castillo Consult Reason/Comments: infection Do you want consulting provider notified?: Yes Primary care physician: Celina Munoz Hospital Course: Discharge diagnoses; # Left-sided nephrolithiasis with hydronephrosis S/p cystoscopy and left ureteral stent placement #UTI #Generalized weakness #Chronic diarrhea, Hx C diff #PARK, resolved #A-fib with pacemaker on warfarin Hypertension GERD Hospital course; History of present illness; Patient is a 83-year-old male with hypertension, A-fib with pacemaker on warfarin, recurrent C. difficile infection, history of nephrolithiasis presenting for abdominal pain. Pain began 3 days ago and is located in the left lower quadrant, described as constant pressure-like sensation. Patient has taken Tylenol which mildly improved his symptoms. Patient states that he had nephrolithiasis in December. He states he does feel he had fever and weakness on admission. He currently has no symptoms of dysuria, nausea, vomiting. Patient was discharged 1 month ago for treatment of C. difficile and had remained on ongoing antibiotic treatment. And he has been having watery loose stools. He has no other complaints at this time. Patient reports absence of chills, chest pain, palpitations, diaphoresis, dyspnea, cough, nausea, vomiting, myalgia, dizziness, and headache. Initial labs WBC 10.1, hemoglobin 10.7, platelets 338, PT 19.8, INR 2.0, sodium 133, potassium 4.6, bicarb 21, BUN 27, creatinine 1.55, glucose 102, troponin 0.035, UA finding significant for glucose 2+, blood moderate, leukocyte esterase large, urine RBC 57, urine WBC> 182. EKG done in the ER independently interpreted showed irregular rhythm heart rate of 76, no ST segment elevation or depression seen, no T-wave inversions seen. CT/AP independently interpreted in ER findings of moderate left hydroureterneph rosis. Obstructing 8 mm calculus in distal ureter and additional 4 mm calculus in ureterovesical junction. Atrophic kidneys bilaterally. During hospital stay patient was treated for left-sided nephrolithiasis with hydronephrosis. Patient underwent cystoscopy and left ureteral stent placement. He was also found to have UTI treated with vancomycin, cefepime and later ertapenem. Urine cultures positive for Enterobacter cloacae, midline was placed. Patient also has chronic history of C. difficile with chronic diarrhea and was seen by ID while inpatient. He is on vancomycin taper and awaiting stool transplant. He was also treated for PARK. Patient discharged in STABLE condition to home. Patient has midline placed and will begin ertapenem 1 g IVPB daily. He will also continue his vancomycin taper. Plan is to eventually undergo stent removal and ureteroscopy with laser lithotripsy at later date once UTI is resolved. He is to follow-up with Dr. Jonathan BERNSTEIN, Dr. Orellana, and his PCP. PHYSICAL EXAMINATION: Vitals reviewed GENERAL: No acute distress. Well developed, well nourished. Obese HEENT: Pupils are round and equally reacting to light. EOMI. No scleral icterus. Normocephalic, atraumatic. CARDIOVASCULAR: S1 and S2 present. No murmurs, rubs, or gallops. PULMONARY: Chest is clear to auscultation, no wheezing, rhonchi, or crackles. ABDOMEN: Soft, nontender, nondistended, normoactive bowel sounds. No palpable organomegaly. MUSCULOSKELETAL: No apparent joint swelling and deformities. EXTREMITIES: No apparent cyanosis, clubbing, or pedal edema. NEUROLOGICAL: The patient is alert and oriented x3, Gross neurological examination did not reveal any focal deficits. SKIN: No apparent rashes. Dictation was produced using [employer] dictation software. please excuse any gra mmatical, word or spelling errors. Patient Condition at Discharge: Stable Plan - Discharge Summary Discharge Rx Participant: No New Discharge Prescriptions: New Ertapenem [INVanz] 1 gm IVPB Q24H #10 each Continue Albuterol Inhaler [Ventolin Hfa Inhaler] 2 puff INHALATION RT-Q6H PRN each PRN Reason: Shortness Of Breath Or Wheezing Warfarin [Coumadin] 5 mg PO MOWEFRSA@2100 Warfarin [Coumadin] 2.5 mg PO SUTUTH@2100 Tamsulosin [Flomax] 0.4 mg PO PC-SUPPER #30 cap Vancomycin HCl See Taper PO QID Acetaminophen [Tylenol] 1,000 mg PO Q6H PRN PRN Reason: Pain Ramelteon 8 mg PO HS Potassium Chloride ER [K-Dur 10] 10 meq PO DAILY Nystatin 100,000 Unit/gm Powd [Mycostatin Powder] 1 applic TOPICAL BID PRN PRN Reason: Skin Irritation Midodrine [ProAmatine] 5 mg PO AC-TID #90 tab Pantoprazole [Protonix] 40 mg PO DAILY #30 tab Cholestyramine (with Sugar) [Questran Packet] 4 gm PO BID #60 packet Sodium Bicarbonate Tab 650 mg PO BID #60 tab amLODIPine [Norvasc] 10 mg PO DAILY 14 Days #14 tab Discontinued Cephalexin [Keflex] 500 mg PO ONETIME Discharge Medication List Acetaminophen [Tylenol] 1,000 mg PO Q6H PRN 05/30/21 [History] Albuterol Inhaler [Ventolin Hfa Inhaler] 2 puff INHALATION RT-Q6H PRN each 12/27/23 [Rx] Ramelteon 8 mg PO HS 01/10/24 [History] Potassium Chloride ER [K-Dur 10] 10 meq PO DAILY 03/18/24 [History] Nystatin 100,000 Unit/gm Powd [Mycostatin Powder] 1 applic TOPICAL BID PRN 04/30/24 [History] Warfarin [Coumadin] 2.5 mg PO SUTUTH@209904/30/24 [History] Warfarin [Coumadin] 5 mg PO MOWEFRSA@209904/30/24 [History] Cholestyramine (with Sugar) [Questran Packet] 4 gm PO BID #60 packet 05/12/24 [Rx] Midodrine [ProAmatine] 5 mg PO AC-TID #90 tab 05/12/24 [Rx] Pantoprazole [Protonix] 40 mg PO DAILY #30 tab 05/12/24 [Rx] Sodium Bicarbonate Tab 650 mg PO BID #60 tab 05/12/24 [Rx] Tamsulosin [Flomax] 0.4 mg PO PC-SUPPER #30 cap 05/12/24 [Rx] amLODIPine [Norvasc] 10 mg PO DAILY 14 Days #14 tab 06/04/24 [Rx] Vancomycin HCl See Taper PO QID 06/22/24 [History] Ertapenem [INVanz] 1 gm IVPB Q24H #10 each 06/26/24 [Rx] Follow up Appointment(s)/Referral(s): [facility], [REFERRING] - 1 Week [facility] [NON-STAFF] - 1 Week Celina Munoz MD [Primary Care Provider] - 1-2 days Aj Castillo MD [STAFF PHYSICIAN] - 1 Week Jaskaran Orellana MD [STAFF PHYSICIAN] - 1 Week Activity/Diet/Wound Care/Special Instructions: Discharging RN for the weekend call [facility] number at no later than 1pm to schedule delivery for Home Antibiotics Discharge Disposition: HOME SELF-CARE
[2024-06-27 13:30] VITALS: BP 143/68; PULSE 59; RESP 16; TEMP 97.5
--- NOTE | 2024-06-27 13:44 | P.PN ---
Subjective Progress Note Date: 06/27/24 Principal diagnosis: Reason for follow-up is a complicated UTI Patient is a 83-year-old male with a past medical history significant for CVA TIA heart failure atrial fibrillation hypertension hyperlipidemia history of kidney stone and recurrent C. difficile colitis patient is currently on a tapering course of oral vancomycin down to 250 mg twice a day presented to hospital with left-sided abdominal pain CT abdominal pelvis with moderate left- sided hydroureteronephrosis in this patient who is status post cystoscopy urethral dilatation and left ureteral stent placement on 06/23/2024. On today's evaluation that is 06/27/2024, patient did not have any fever and denies any chills, patient is breathing comfortably on room air, patient with no chest pain or cough patient did not have any abdominal pain nausea vomiting or any loose stools mention he did have a formed bowel movement. The patient white count is 5.22 Objective - Vital Signs Vital signs: Vital Signs Temp 98.2 F 06/27/24 07:32 Pulse 62 06/27/24 07:32 Resp 17 06/27/24 07:32 BP 157/73 06/27/24 07:32 Pulse Ox 94 L 06/27/24 07:32 FiO2 Intake & Output 06/26/24 06/27/24 06/27/24 18:59 06:59 18:59 Intake Total 210 360 Output Total 800 950 Balance -590 -950 360 Intake: Intake, IV Titration 210 Amount Ertapenem 1 gm In Sodium 50 Chloride 0.9% 50 ml @ 100 mls/hr IVPB DAILY@1200 [facility] Rx#:[id number] Sodium Chloride 0.9% 1, 160 000 ml @ 75 mls/hr IV . [id number] [facility] Rx#:[id number] Oral 360 Output: Urine 800 950 Other: Voiding Method Diaper Diaper Diaper Incontinent Incontinent Incontinent External Catheter External Catheter External Catheter # Voids 1 # Bowel Movements 1 - Exam GENERAL DESCRIPTION: An elderly male lying in bed in no distress RESPIRATORY SYSTEM: Unlabored breathing , decreased breath sounds at bases HEART: S1 S2 regular rate and rhythm , ABDOMEN: Soft , no tenderness EXTREMITIES: No edema feet - Labs CBC & Chem 7: 06/27/24 05:47 06/26/24 05:20 Labs: Abnormal Lab Results - Last 24 Hours (Table) 06/27/24 06/27/24 Range/Units 05:47 05:47 RBC 3.80 L (4.40-5.60) X 10*6/uL Hgb 10.0 L (13.0-17.0) g/dL Hct 32.1 L (39.6-50.0) % MCH 26.3 L (27.0-32.0) pg MCHC 31.2 L (32.0-37.0) g/dL RDW 17.2 H (11.5-14.5) % Lymphocytes # 0.50 L (0.90-5.00) X 10*3/uL PT 22.0 H (10.0-12.5) sec INR 2.2 H (<1.2) Microbiology - Last 24 Hours (Table) 06/23/24 15:13 Urine Culture - Final Urine,Voided Enterobacter cloacae Assessment and Plan (1) Complicated UTI (urinary tract infection) Current Visit: Yes Status: Acute Code(s): N39.0 - URINARY TRACT INFECTION, S ITE NOT SPECIFIED SNOMED Code(s): 30664031 (2) Pyelonephritis Current Visit: No Status: Acute Code(s): N12 - TUBULO-INTERSTITIAL NEPHRITIS, NOT SPCF ACUTE OR CHRONIC SNOMED Code(s): 19829066 Plan: 1patient presume hospital left-sided abdominal pain secondary to a left-sided hydroureteronephrosis kidney stone and concerning for ascending infection in this patient last urine culture positive for Pseudomonas and VRE 2-patient also have a history of recurrent C. difficile colitis currently waiting for a stool transplant and is on a tapering course of oral vancomycin with the current antibiotic culture will increase the risk of flareup at this point the patient will continue on his current oral vancomycin dose of 250 mg p.o. every 12 hours along with probiotics 3patient is status post urethral dilatation cystoscopy and left ureteral stent placement urine is growing drug-resistant Enterobacter 4patient currently treated with ertapenem we will consider at least a 10-day course for his underlying pyelonephritis prescription has been provided to the case technician waiting for outpatient IV antibiotics arrangement before discharge Dictation was produced using [employer] dictation software. please excuse any g rammatical, word or spelling errors.
[2024-06-27 17:22] LABS: ALT 26 U/L (10-49); AST 32 U/L (14-35); Albumin 3.1 g/dL (3.8-4.9); Albumin/Globulin Ratio 1.19 Ratio (1.60-3.17); Alkaline Phosphatase 71 U/L (41-126); BUN/Creat Ratio 14.18 Ratio (12.00-20.00); Blood Urea Nitrogen 15.6 mg/dL (9.0-27.0); Calcium 8.4 mg/dL (8.7-10.3); Carbon Dioxide 17.2 mmol/L (21.6-31.8); Chloride 110 mmol/L (96-109); Globulin 2.6 g/dL (1.6-3.3); Glucose 107 mg/dL (70-110); Potassium 4.8 mmol/L (3.5-5.5); Sodium 141 mmol/L (135-145); Total Bilirubin <0.2 mg/dL (0.3-1.2); Total Protein 5.7 g/dL (6.2-8.2)
--- NOTE | 2024-06-30 11:26 | CDI ---
Documentation Clarification Form Date: 06/30/2024 11:12:32 AM From: Maia Degroot RN, CCDS Email: [email or web address] Admit Date: 06/22/2024 10:55:00 PM Patient Name: Santosh Melton Visit Number: [id number] Discharge Date: 06/27/2024 04:11:00 PM ATTENTION: The Clinical Documentation Specialists (CDI) and [facility] Coding Staff appreciate your assistance in clarifying documentation. Please respond to the clarification below the line at the bottom and electronically sign. The CDI & [facility] Coding staff will review the response and follow-up if needed. Please note: Queries are made part of the Legal Health Record. If you have any questions, please contact the author of this message via ITS. Doctor Pati Lucas Atrial Fibrillation is documented in the progress notes. Additional clarification regarding the type of atrial fibrillation is requested. History/Risk Factors: HTN, A-fib on Warfarin, pacemaker, recurrent C-diff infection and nephrolithiasis. Presents with abdominal pain. Admitted with Nephrolithiasis and hydronephrosis, s/p cystoscopy and left ureteral stent placement. Clinical Indicators: 06/22 EKG: paced rhythm H&P: "A-fib with pacemaker on Warfarin. Chronic medical conditions: Hypertension, resume home meds; A-fib, resume home meds; GERD, resume home meds." Treatment: Warfarin 2.5mg po [place] 12/3;06/25; Warfarin 5mg po Sat-Sat-06/24;06/26 Please clarify the type of atrial fibrillation, if known: [ ] Chronic [ ] Permanent [ ] Paroxysmal [ ] Persistent [ ] Other, please specify [ x ] Unable to determine MTDD
== END 2024-06-27 16:11 | disposition home health service (06) | DRG 660 ==
LOC: EC 17:54 → 5NMEDONC 22:55
PROVIDERS: ADMIT Hospitalist; ATTEND Hospitalist
PROC: 0T7D8ZZ Dilation of Urethra, Via Natural or Artificial Opening Endoscopic (ICD-10-PCS; 2024-06-23)
PROC: 0T778DZ Dilation of Left Ureter with Intraluminal Device, Via Natural or Artificial Opening Endoscopic (ICD-10-PCS; principal; 2024-06-23 07:30)
DX: N13.6 Pyonephrosis (principal); Z16.30 Resistance to unspecified antimicrobial drugs; N17.9 Acute kidney failure, unspecified; E78.5 Hyperlipidemia, unspecified; I11.0 Hypertensive heart disease with heart failure; K21.9 Gastro-esophageal reflux disease without esophagitis; B96.89 Other specified bacterial agents as the cause of diseases classified elsewhere; I48.91 Unspecified atrial fibrillation; I50.9 Heart failure, unspecified; N35.911 Unspecified urethral stricture, male, meatal; N40.1 Benign prostatic hyperplasia with lower urinary tract symptoms; N39.498 Other specified urinary incontinence; Z79.01 Long term (current) use of anticoagulants; Z79.899 Other long term (current) drug therapy; Z85.46 Personal history of malignant neoplasm of prostate; Z86.73 Personal history of transient ischemic attack (TIA), and cerebral infarction without residual deficits; Z87.442 Personal history of urinary calculi; Z87.891 Personal history of nicotine dependence; Z95.0 Presence of cardiac pacemaker
CPT/HCPCS: 36410; 36415; 74177; 76937; 80053; 81001; 83605; 83735; 84484; 85025; 85610; 87077; 87086; 87186; 87324; 93005; 96374; 99285

== ENCOUNTER → 2024-07-13 | Day surgery (SDC) | payer MEDICARE, BC ==
[2024-07-10 13:52] VITALS: BMI 38.6
--- NOTE | 2024-07-10 14:52 | P.GSHP ---
History of Present Illness H&P Date: 07/10/24 83 yo male with a history of stones. He recently was in the hospital with an obstructing left ureteral stone with pyonpehrosis. He required antibiotics and Dr Nguyen placed a stent. He now comes for cysto with left ureteroscopy to the left ureteral stone as well as a tiny stone in the left lower pole of the kidney - Constitutional Constitutional: Denies chills, Denies fever - EENT Eyes: denies blurred vision, denies pain Ears, nose, mouth and throat: Denies headache, Denies sore throat - Cardiovascular Cardiovascular: Denies chest pain, Denies shortness of breath - Respiratory Respiratory: Denies cough, Denies 7 - Gastrointestinal Gastrointestinal: Denies abdominal pain, Denies diarrhea, Denies nausea, Denies vomiting - Genitourinary (Female) Genitourinary: Denies dysuria, Denies hematuria - Genitourinary (Male) Genitourinary: Denies dysuria, Denies hematuria - Musculoskeletal Musculoskeletal: Denies myalgias - Integumentary Integumentary: Denies pruritus, Denies rash - Neurological Neurological: Denies numbness, Denies weakness - Psychiatric Psychiatric: Denies anxiety, Denies depression - Endocrine Endocrine: Denies fatigue, Denies weight change Past Medical History Past Medical History: Atrial Fibrillation, Cancer, Heart Failure, CVA/TIA, GERD/Reflux, Hyperlipidemia, Hypertension, Prostate Disorder Additional Past Medical History / Comment(s): tia-2005, See Dr Aguirre H&P, arthritis, uses walker or cane, enlarged prostate, prostate CA 2015(radiation), hx shingles some edema to left ankle using lasix. dry skin on arms, numbness in last 2 fingers to left hand, kidney stone. 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 Type of Cardiac Device: Permanent Pacemaker Device Placement Date:: 2013 Smoking Status: Former smoker - Past Family History Father Family Medical History: Diabetes Mellitus Mother Family Medical History: Osteoarthritis (OA) Additional Family Medical History / Comment(s): arthritis Medications and Allergies Home Medications Medication Instructions Recorded Confirmed Type Acetaminophen [Tylenol] 1,000 mg PO Q6H PRN 05/30/21 07/10/24 History Albuterol Inhaler [Ventolin Hfa 2 puff INHALATION RT-Q6H PRN each 12/27/23 07/10/24 Rx Inhaler] Potassium Chloride ER [K-Dur 10] 10 meq PO DAILY 03/18/24 07/10/24 History Nystatin 100,000 Unit/gm Powd 1 applic TOPICAL BID PRN 04/30/24 07/10/24 History [Mycostatin Powder] Warfarin [Coumadin] 2.5 mg PO SUTUTH@209904/30/24 07/10/24 History Warfarin [Coumadin] 5 mg PO MOWEFRSA@209904/30/24 07/10/24 History Cholestyramine (with Sugar) 4 gm PO BID #60 packet 05/12/24 07/10/24 Rx [Questran Packet] Midodrine [ProAmatine] 5 mg PO AC-TID #90 tab 05/12/24 07/10/24 Rx Pantoprazole [Protonix] 40 mg PO DAILY #30 tab 05/12/24 07/10/24 Rx Sodium Bicarbonate Tab 650 mg PO BID #60 tab 05/12/24 07/10/24 Rx Tamsulosin [Flomax] 0.4 mg PO PC-SUPPER #30 cap 05/12/24 07/10/24 Rx amLODIPine [Norvasc] 10 mg PO DAILY 14 Days #14 tab 06/04/24 07/10/24 Rx Vancomycin HCl See Taper PO QID 06/22/24 07/10/24 History Allergies Allergy/AdvReac Type Severity Reaction Status Date / Time No Known Allergies Allergy Verified 07/10/24 13:22 Surgical - Exam - General well developed, well nourished, no distress - Eyes normal ocular movement, no icteric - ENT no hearing loss, no congestion - Neck no masses, trachea midline - Respiratory normal respiratory effort, clear to auscultation - Abdomen Abdomen: soft, non tender, no guarding, no rigid, no rebound - Integumentary no rash, no abnormal pigmentation - Neurologic wheelchair bound no disoriented, no combative - Psychiatric oriented to time, oriented to person, oriented to place, speech is normal, memory intact Assessment and Plan Assessment: Impression: left ureteral stone withpyonephrosis [id number] with ab and stent. Left renal stone Plan: left ureteroscopy with laser lithotripsy to ureteral and renal stone left
[~2024-07-13] MED LIST changes: +GENTAMICIN 150 MG in SODIUM CHLORIDE 0.9% 100 ML IVPB PRN; +HYDROmorphone 0.5 MG/0.5 ML SYRINGE IVP PRN; +LEVOFLOXACIN 500MG-D5W PMX 500 MG in DEXTROSE/WATER 1 100ML.BAG IVPB STA; +LIDOCAINE 1% INJ 10MG/ML (20 ML MDV) ONE; +PHENYLEPHRINE 10 MG/ML VIAL ONE; +PROPOFOL 10 MG/ML 20 ML VIAL IV ONE; +ROCURONIUM 10 MG/ML (5 ML VIAL) IV ONE; +SUCCINYLCHOLINE CHLORIDE 200 MG/10 ML VIAL IV ONE; +droPERidol 5 MG/2 ML VIAL IVP ONE; +ePHEDrine 50 MG/ML 1 ML VIAL ONE; +fentaNYL (PF) 50 MCG/ML 2 ML AMP ONE
--- NOTE | 2024-07-13 12:35 | XR ---
EXAMINATION TYPE: XR KUB DATE OF EXAM: 07/13/2024 COMPARISON: 01/15/2024 CLINICAL INDICATION: Male, 83 years old with history of S70.12XA CONTUSION OF LEFT THIGH, INITIAL ENC OUNTE; TECHNIQUE: XR KUB views of the abdomen. FINDINGS: The osseous structures are intact. The bowel gas pattern is nonspecific. Left-sided ureteral stent. A retained debris throughout the colon. Calcifications in the pelvis are likely vascular. Arthropathy of the hips. Degenerative changes in the spine. Stable right upper quadrant calcification. Calcifica tion along the left ureteral stent is not seen with certainty. A punctate calcification noted in the left kidney by prior CT scan is not as well seen. IMPRESSION: 1. Left ureteral stent. [facility], , 07/13/2024 12:32 PM
[2024-07-13] MEDS: IV FLUID CONTINUATION 1,000 ML IV ONE (12:45)
[2024-07-13] MEDS: LACTATED RINGERS 1,000 ML IV SCH (12:47)
[2024-07-13] MEDS: ONDANSETRON 4 MG/2 ML VIAL IVP ONE (12:57)
[2024-07-13] MEDS: DEXAMETHASONE SOD PHOSPHATE 4 MG/ML 1 ML VIAL IV ONE (12:58)
[2024-07-13] MEDS: IOPAMIDOL-370 100ML BTL MISCELLANE ONE ×2 (14:43)
--- NOTE | 2024-07-13 15:28 | P.OP ---
Date of Procedure: 07/13/24 Preoperative Diagnosis: left ureteral and renal stones Postoperative Diagnosis: ureteral and renal stones Procedure(s) Performed: cystoscopy, removal double-J catheter left, left ureteroscopy with laser lithotripsy left ureteral renoscopy laser lithotripsy and stone basketing Anesthesia: SHIRA Surgeon: Jaskaran Orellana Estimated Blood Loss (ml): 0 Pathology: other Condition: stable (stone) Disposition: PACU Indications for Procedure: the patient is 83. He had an obstructing left ureteral stone HAD A STENT PLACED BY as the urine was infected. He now comes for formal stent and stone removal. He also has a couple left lower pole stones that I'll remove Description of Procedure: patient brought operating suite. He is given a general anesthetic. He has severe phimosis which is manipulated. I then pass a 21-Japanese sheath and Foroblique lens and the urethra is normal prostatic urethra shows previous TURP. The bladder wall is unremarkable there is a left double-J catheter. The catheter was removed and pulled to the urethral meatus. An 035 wires passed through the catheter up into the renal pelvis. Over the wires and passed 89-70-Vttdes reentry sheath. The inner sheath moved up. Flexible ureteroscope was passed up into the kidney. I passed the lower pole calyx where several small stones are identified a. With the 200 laser probe they're fragmented into very tiny pieces the largest of which are are stone basketed.I then do a pullout ureteroscopy and identify the mid ureteral obstructing calculus. It is lasered into tinier pieces again the largest fragments are basketed. I passed the ureteroscope back up in the kidney and do a pullout ureteroscopy there is no remaining stones. There is not enough edema to leave a stent. The wire and inner sheath removed. The basket is removed. The bladder strain the patient's awake and returned recovery in good condition. Blood loss is minimal. He will be discharged home upon recovery.
--- NOTE | 2024-07-13 15:37 | FL ---
EXAMINATION TYPE: FL guidance operating room DATE OF EXAM: 07/13/2024 3:29 PM COMPARISON: Pre Operative Images if available both CT/MRI or plain film CLINICAL INDICATION: Male, 83 years old with history of CALCULUS OF KIDNEY; TECHNIQUE: FL guidance operating room, multiple fluoroscopic images provided for procedure. Total fluoroscopy time: 1 min 28 seconds Total submitted images to PACS: 3 DAP: [phone] mGym2 Gycm2 uGym2 cGycm2 or equivalent. FINDINGS: Fluoroscopic images taken for renal stone. Renal stone identified projecting over the renal sinus. No evidence of pneumoperitoneum. Multilevel degeneration changes of the spine. IMPRESSION: 1. No evidence for intraoperative complication. 2. Please see the operative/procedural note for further details. [facility], , 07/13/2024 3:35 PM
[2024-07-13 15:39] VITALS: TEMP 97.3
[2024-07-13 17:12] VITALS: BP 149/66; PULSE 61; RESP 20
== END | disposition home or self-care (01) ==
LOC: OR 11:46
PROVIDERS: ATTEND Urology
DX: N20.2 Calculus of kidney with calculus of ureter (principal); I48.91 Unspecified atrial fibrillation; I11.0 Hypertensive heart disease with heart failure; I50.9 Heart failure, unspecified; E78.5 Hyperlipidemia, unspecified; K21.9 Gastro-esophageal reflux disease without esophagitis; Z79.01 Long term (current) use of anticoagulants; Z79.899 Other long term (current) drug therapy; Z87.891 Personal history of nicotine dependence; Z85.46 Personal history of malignant neoplasm of prostate; Z86.73 Personal history of transient ischemic attack (TIA), and cerebral infarction without residual deficits; Z95.0 Presence of cardiac pacemaker; Z96.0 Presence of urogenital implants
CPT/HCPCS: 82365; 74018; 52353; J1100; J2405; Q9967

== ENCOUNTER 2024-07-27 02:01 | Inpatient (IN) | payer MEDICARE, BC ==
[2024-07-27] MEDS ORDERED: VANCOMYCIN IV PER PHARMACY 1 EACH MISC MISCELLANE PRN (02:20)
--- NOTE | 2024-07-27 02:26 | ED ---
General Adult HPI - General Chief complaint: Fever Stated complaint: Fever Time Seen by Provider: 07/27/24 02:12 Source: patient, EMS Mode of arrival: EMS Limitations: no limitations - History of Present Illness Initial comments: Dictation was produced using [employer] dictation software. please excuse any grammatical, word or spelling errors. Chief Complaint: 83-year-old male presents emergency department with fever History of Present Illness: Patient is 83-year-old male presents with altered mental status. History present illness obtained from EMS and patient. Patient states denies any cough. Patient was at home being visited by home health care nurse family noticed that patient had a fever patient brought to the ER. Patient has chronic wounds to his sacral area. Family states that he is debilitated and stools in her diaper and they are having exceeding difficulty keeping the wounds clean dry and intact. Patient states he has some loose stool. Denies any abdominal pain at the moment. No rash. Denies any cough or shortness of breath. The ROS documented in this emergency department record has been reviewed and confirmed by me. Those systems with pertinent positive or negative responses have been documented in the HPI. All other systems are other negative and/or noncontributory. - Related Data Home Medications Medication Instructions Recorded Confirmed Acetaminophen [Tylenol] 1,000 mg PO Q6H PRN 05/30/21 07/10/24 Potassium Chloride ER [K-Dur 10] 10 meq PO DAILY 03/18/24 07/10/24 Nystatin 100,000 Unit/gm Powd 1 applic TOPICAL BID PRN 04/30/24 07/10/24 [Mycostatin Powder] Warfarin [Coumadin] 2.5 mg PO SUTUTH@2100 04/30/24 07/10/24 Warfarin [Coumadin] 5 mg PO MOWEFRSA@2100 04/30/24 07/10/24 Vancomycin HCl See Taper PO QID 06/22/24 07/10/24 Previous Rx's Medication Instructions Recorded Albuterol Inhaler [Ventolin Hfa 2 puff INHALATION RT-Q6H PRN each 12/27/23 Inhaler] Cholestyramine (with Sugar) 4 gm PO BID #60 packet 05/12/24 [Questran Packet] Midodrine [ProAmatine] 5 mg PO AC-TID #90 tab 05/12/24 Pantoprazole [Protonix] 40 mg PO DAILY #30 tab 05/12/24 Sodium Bicarbonate Tab 650 mg PO BID #60 tab 05/12/24 Tamsulosin [Flomax] 0.4 mg PO PC-SUPPER #30 cap 05/12/24 amLODIPine [Norvasc] 10 mg PO DAILY 14 Days #14 tab 06/04/24 Levofloxacin [Levaquin] 500 mg PO DAILY 1 Days #10 tab 07/13/24 Allergies Allergy/AdvReac Type Severity Reaction Status Date / Time No Known Allergies Allergy Verified 07/27/24 02:16 Review of Systems ROS Statement: Those systems with pertinent positive or pertinent negative responses have been documented in the HPI. ROS Other: All systems not noted in ROS Statement are negative. Past Medical History Past Medical History: Atrial Fibrillation, Cancer, Heart Failure, CVA/TIA, GERD/Reflux, Hyperlipidemia, Hypertension, Prostate Disorder Additional Past Medical History / Comment(s): 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 dry skin on arms, numbness in last 2 fingers to left hand, kidney stone. 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 Type of Cardiac Device: Permanent Pacemaker Device Placement Date:: 2013 Past Psychological History: No Psychological Hx Reported Smoking Status: Former smoker - Past Family History Father Family Medical History: Diabetes Mellitus Mother Family Medical History: Osteoarthritis (OA) Additional Family Medical History / Comment(s): arthritis General Exam - General Exam Comments Initial Comments: PHYSICAL EXAM: General Impression: Alert and oriented x3, acute distress, tremulous HEENT: Normocephalic atraumatic, extra-ocular movements intact, pupils equal and reactive to light bilaterally, rinse Cardiovascular: Heart regular rate and rhythm Chest:, Belly breathing Abdomen: abdomen soft, non-tender, non-distended, no organomegaly Musculoskeletal: Pulses present and equal in all extremities, no peripheral edema Motor: no focal deficits noted Neurological: CN II-XII grossly intact, no focal motor or sensory deficits noted Skin: Intact with no visualized rashes Psych: Normal affect and mood Limitations: no limitations Course Vital Signs 07/27/24 07/27/24 07/27/24 02:04 02:30 03:15 Temperature 99.5 F Pulse Rate 76 75 61 Respiratory 40 H 30 H 28 H Rate Blood Pressure 138/100 141/96 93/43 O2 Sat by Pulse 96 92 L 92 L Oximetry 07/27/24 07/27/24 07/27/24 03:50 04:52 04:56 Temperature Pulse Rate 65 60 Respiratory 24 24 Rate Blood Pressure 78/38 77/37 83/40 O2 Sat by Pulse 93 L 94 L Oximetry 07/27/24 07/27/24 07/27/24 05:02 05:06 05:10 Temperature Pulse Rate 60 60 Respiratory 22 24 Rate Blood Pressure 78/38 80/42 91/43 O2 Sat by Pulse 95 97 Oximetry EKG Findings - EKG Comments: EKG Findings:: My EKG interpretation: Ventricular rate 81, interpretation difficult due to significant artifact. QRS 120, QTc 389. Overall, this EKG is uninterpretable Procedures - Sepsis Sepsis Focused Exam #1 Time Sepsis Criteria Met: : Sepsis Focused Exam Date: 07/27/24 Sepsis Focused Exam Time: 03: Sepsis Focused Exam Complete: Yes Vital Signs & RN Notes Reviewed: Yes Capillary Refill: < 2 Seconds: Fingers, Toes Peripheral Pulses: Normal: Radial (R), Radial (L), Posterior Tibialis (R), Posterior Tibialis (L), Dorsalis Pedis (R), Dorsalis Pedis (L) Skin Color: Pallor Respiratory Exam: other Cardiovascular Exam: regular rate Medical Decision Making - Medical Decision Making Was pt. sent in by a medical professional or institution (, PA, CAR STORER, urgent care, hospital, or long-term...) When possible be specific @ -No Did you speak to anyone other than the patient for history (EMS, parent, family, police, friend...)? What history was obtained from this source @ -some history obtained from daughter at the bedside Did you review nursing and triage notes (agree or disagree)? Why? @ -I reviewed and agree with nursing and triage notes Were old charts reviewed (outside hosp., previous admission, EMS record, old EKG, old radiological studies, urgent care reports/EKG's, long-term records)? Report findings @ -No old charts were reviewed Differential Diagnosis (chest pain, altered mental status, abdominal pain women, abdominal pain men, vaginal bleeding, musculoskeletal, weakness, fever, dyspnea, syncope, headache, dizziness, GI bleed, back pain, seizure, CVA, palpatations, mental health)? @ -Differential Fever: Pneumonia, viral URI, endocarditis, myocarditis, pericarditis, otitis, sinusitis, peritonsillar Abscess, retropharyngeal Abscess, epiglottitis, peritonitis, appendicitis, Mayi cystitis, diverticulitis, hepatitis, colitis, UTI, PID, TOA, pyelonephritis, prostatitis, epididymitis, meningitis, encephalitis, pulmonary embolism, CVA, thyroid storm, pancreatitis, adrenal crisis, cavernous sinus thrombosis, this is not meant to be an all-inclusive list. EKG interpreted by me (3pts min.). @ -As above X-rays interpreted by me (1pt min.). @ -Chest x-ray shows questionable left-sided pneumonia CT interpreted by me (1pt min.). @ -CT of the abdomen pelvis shows distal left ureteral stone with some degree of obstruction. There also is incidental finding of pericardial effusion U/S interpreted by me (1pt. min.). @ -None done What testing was considered but not performed or refused? (CT, X-rays, U/S, labs)? Why? @ -None What meds were considered but not given or refused? Why? @ -None Was smoking cessation discussed for >3mins.? @ -No Were there social determinants of health that impacted care today? How? (Homelessness, low income, unemployed, alcoholism, drug addiction, transportation, low edu. Level, literacy, decrease access to med. care, custodial, rehab)? @ -No Was there de-escalation of care discussed even if they declined (Discuss DNR or withdrawal of care, Hospice)? DNR status @ -No What co-morbidities impacted this encounter? (DM, HTN, Smoking, COPD, CAD, Cancer, CVA, ARF, Chemo, Hep., AIDS, mental health diagnosis, sleep apnea, morbid obesity)? @ -Debility, A-fib heart failure Was patient admitted / discharged? Hospital course, mention meds given and route, prescriptions, significant lab abnormalities, going to OR and other pertinent info. @ -83-year-old male brought to the emergency department for fever and altered mental status. Vital signs upon arrival showed elevated rectal temperature. Patient tachypneic at 40. Laboratory evaluation obtained. Leukocytosis of 38.6. Elevated coag factors. Lactic acidosis of 4.3. Positive acidosis. Urinalysis positive for UTI. Viral testing is negative. Chest x-ray shows questionable pneumonia. CT abdomen pelvis shows obstructing stone. There is also incidental finding of pericardial effusion. Patient's pressure began to drop after initiation of antibiotics. Patient put on peripheral pressors. Case discussed with Robles Young for ICU placement. Case discussed with hospitalist for admission. Did you discuss the management of the patient with other professionals (professionals i.e. , PA, CAR STORER, lab, RT, psych nurse, social worker health services, forestry patrolman, teacher, residential care officer, employment evaluator/case manager)? Give summary @ -See above. Case also discussed with urology for concern of septic stone Was critical care preformed (if so, how long)? @ -Yes, 77 minutes for critically ill patient Undiagnosed new problem with uncertain prognosis? @ -No Drug Therapy requiring intensive monitoring for toxicity (Heparin, Nitro, Insulin, Cardizem)? @ -No Were any procedures done? @ -No Diagnosis/symptom? Acute, or Chronic, or Acute on Chronic? Uncomplicated (without systemic symptoms) or Complicated (systemic symptoms)? @ -Septic stone, pericardial fusion Side effects of treatment? @ -No Exacerbation, Progression, or Severe Exacerbation? @ -No Poses a threat to life or bodily function? How? (Chest pain, USA, MS, pneumonia, PE, COPD, DKA, ARF, appy, cholecystitis, CVA, Diverticulitis, Homicidal, Suicidal, threat to staff... and all critical care pts) @ -yes - Lab Data Result diagrams: 07/27/24 02:20 07/27/24 02:20 Lab Results 07/27/24 07/27/24 07/27/24 Range/Units 02:20 02:20 02:20 WBC 38.6 H (3.8-10.6) k/uL RBC 4.90 (4.30-5.90) m/uL Hgb 13.0 (13.0-17.5) gm/dL Hct 41.0 (39.0-53.0) % MCV 83.7 (80.0-100.0) fL MCH 26.6 (25.0-35.0) pg MCHC 31.8 (31.0-37.0) g/dL RDW 16.4 H (11.5-15.5) % Plt Count 368 (150-450) k/uL MPV 7.5 Neutrophils % 92 % Lymphocytes % 3 % Monocytes % 4 % Eosinophils % 0 % Basophils % 0 % Neutrophils # 35.4 H (1.3-7.7) k/uL Lymphocytes # 1.2 (1.0-4.8) k/uL Monocytes # 1.6 H (0-1.0) k/uL Eosinophils # 0.1 (0-0.7) k/uL Basophils # 0.1 (0-0.2) k/uL Anisocytosis Slight PT 21.0 H (10.0-12.5) sec INR 2.1 H (<1.2) APTT 30.8 H (22.0-30.0) sec Sodium 138 (137-145) mmol/L Potassium 4.6 (3.5-5.1) mmol/L Chloride 106 (98-107) mmol/L Carbon Dioxide 19 L (22-30) mmol/L Anion Gap 13 mmol/L BUN 21 H (9-20) mg/dL Creatinine 1.67 H (0.66-1.25) mg/dL Est GFR (CKD-EPI)AfAm 43 (>60 ml/min/1.73 sqM) Est GFR (CKD-EPI)NonAf 37 (>60 ml/min/1.73 sqM) Glucose 90 (74-99) mg/dL Lactic Ac Sepsis Rflx Plasma Lactic Acid Yasir (0.7-2.0) mmol/L Calcium 8.6 (8.4-10.2) mg/dL Total Bilirubin 0.9 (0.2-1.3) mg/dL AST 25 (17-59) U/L ALT 16 (4-49) U/L Alkaline Phosphatase 81 (38-126) U/L Total Protein 6.5 (6.3-8.2) g/dL Albumin 3.6 (3.5-5.0) g/dL Urine Color Urine Appearance (Clear) Urine pH (5.0-8.0) Ur Specific Arcade (1.001-1.035) Urine Protein (Negative) Urine Glucose (UA) (Negative) Urine Ketones (Negative) Urine Blood (Negative) Urine Nitrite (Negative) Urine Bilirubin (Negative) Urine Urobilinogen (<2.0) mg/dL Ur Leukocyte Esterase (Negative) Urine RBC (0-5) /hpf Urine WBC (0-5) /hpf Urine WBC Clumps (None) /hpf Urine Bacteria (None) /hpf Influenza Type A (PCR) (Not Detectd) Influenza Type B (PCR) (Not Detectd) RSV (PCR) (Not Detectd) SARS-CoV-2 (PCR) (Not Detectd) 07/27/24 07/27/24 07/27/24 Range/Units 02:20 03:10 03:33 WBC (3.8-10.6) k/uL RBC (4.30-5.90) m/uL Hgb (13.0-17.5) gm/dL Hct (39.0-53.0) % MCV (80.0-100.0) fL MCH (25.0-35.0) pg MCHC (31.0-37.0) g/dL RDW (11.5-15.5) % Plt Count (150-450) k/uL MPV Neutrophils % % Lymphocytes % % Monocytes % % Eosinophils % % Basophils % % Neutrophils # (1.3-7.7) k/uL Lymphocytes # (1.0-4.8) k/uL Monocytes # (0-1.0) k/uL Eosinophils # (0-0.7) k/uL Basophils # (0-0.2) k/uL Anisocytosis PT (10.0-12.5) sec INR (<1.2) APTT (22.0-30.0) sec Sodium (137-145) mmol/L Potassium (3.5-5.1) mmol/L Chloride (98-107) mmol/L Carbon Dioxide (22-30) mmol/L Anion Gap mmol/L BUN (9-20) mg/dL Creatinine (0.66-1.25) mg/dL Est GFR (CKD-EPI)AfAm (>60 ml/min/1.73 sqM) Est GFR (CKD-EPI)NonAf (>60 ml/min/1.73 sqM) Glucose (74-99) mg/dL Lactic Ac Sepsis Rflx Y Plasma Lactic Acid Yasir 4.3 H* (0.7-2.0) mmol/L Calcium (8.4-10.2) mg/dL Total Bilirubin (0.2-1.3) mg/dL AST (17-59) U/L ALT (4-49) U/L Alkaline Phosphatase (38-126) U/L Total Protein (6.3-8.2) g/dL Albumin (3.5-5.0) g/dL Urine Color Urine Appearance (Clear) Urine pH (5.0-8.0) Ur Specific Arcade (1.001-1.035) Urine Protein (Negative) Urine Glucose (UA) (Negative) Urine Ketones (Negative) Urine Blood (Negative) Urine Nitrite (Negative) Urine Bilirubin (Negative) Urine Urobilinogen (<2.0) mg/dL Ur Leukocyte Esterase (Negative) Urine RBC (0-5) /hpf Urine WBC (0-5) /hpf Urine WBC Clumps (None) /hpf Urine Bacteria (None) /hpf Influenza Type A (PCR) Not Detected (Not Detectd) Influenza Type B (PCR) Not Detected (Not Detectd) RSV (PCR) Not Detected (Not Detectd) SARS-CoV-2 (PCR) Not Detected (Not Detectd) 07/27/24 Range/Units 03:40 WBC (3.8-10.6) k/uL RBC (4.30-5.90) m/uL Hgb (13.0-17.5) gm/dL Hct (39.0-53.0) % MCV (80.0-100.0) fL MCH (25.0-35.0) pg MCHC (31.0-37.0) g/dL RDW (11.5-15.5) % Plt Count (150-450) k/uL MPV Neutrophils % % Lymphocytes % % Monocytes % % Eosinophils % % Basophils % % Neutrophils # (1.3-7.7) k/uL Lymphocytes # (1.0-4.8) k/uL Monocytes # (0-1.0) k/uL Eosinophils # (0-0.7) k/uL Basophils # (0-0.2) k/uL Anisocytosis PT (10.0-12.5) sec INR (<1.2) APTT (22.0-30.0) sec Sodium (137-145) mmol/L Potassium (3.5-5.1) mmol/L Chloride (98-107) mmol/L Carbon Dioxide (22-30) mmol/L Anion Gap mmol/L BUN (9-20) mg/dL Creatinine (0.66-1.25) mg/dL Est GFR (CKD-EPI)AfAm (>60 ml/min/1.73 sqM) Est GFR (CKD-EPI)NonAf (>60 ml/min/1.73 sqM) Glucose (74-99) mg/dL Lactic Ac Sepsis Rflx Plasma Lactic Acid Yasir (0.7-2.0) mmol/L Calcium (8.4-10.2) mg/dL Total Bilirubin (0.2-1.3) mg/dL AST (17-59) U/L ALT (4-49) U/L Alkaline Phosphatase (38-126) U/L Total Protein (6.3-8.2) g/dL Albumin (3.5-5.0) g/dL Urine Color Yellow Urine Appearance Turbid (Clear) Urine pH 6.0 (5.0-8.0) Ur Specific Arcade 1.018 (1.001-1.035) Urine Protein 1+ H (Negative) Urine Glucose (UA) Negative (Negative) Urine Ketones Negative (Negative) Urine Blood Moderate H (Negative) Urine Nitrite Negative (Negative) Urine Bilirubin Negative (Negative) Urine Urobilinogen <2.0 (<2.0) mg/dL Ur Leukocyte Esterase Large H (Negative) Urine RBC 20 H (0-5) /hpf Urine WBC >182 H (0-5) /hpf Urine WBC Clumps Few H (None) /hpf Urine Bacteria Occasional H (None) /hpf Influenza Type A (PCR) (Not Detectd) Influenza Type B (PCR) (Not Detectd) RSV (PCR) (Not Detectd) SARS-CoV-2 (PCR) (Not Detectd) Disposition Clinical Impression: Sepsis secondary to UTI, Sepsis Disposition: ADMITTED IP TO THIS HOSP Condition: Critical Decision Time: 05:28
[2024-07-27 02:46] LABS: Anisocytosis Slight; Basophils # (A) 0.1 k/uL (0-0.2); Basophils % (A) 0 %; Eosinophils # (A) 0.1 k/uL (0-0.7); Eosinophils % (A) 0 %; Lymphocytes # (A) 1.2 k/uL (1.0-4.8); Lymphocytes % (A) 3 %; MCH 26.6 pg (25.0-35.0); MCHC 31.8 g/dL (31.0-37.0); MCV 83.7 fL (80.0-100.0); Mean Platelet Volume 7.5; Monocytes # (A) 1.6 k/uL (0-1.0); Monocytes % (A) 4 %; Neutrophils # (A) 35.4 k/uL (1.3-7.7); Neutrophils % (A) 92 %; Platelet Count 368 k/uL (150-450); RDW 16.4 % (11.5-15.5); WBC 38.6 k/uL (3.8-10.6)
[2024-07-27] MEDS: ACETAMINOPHEN TAB 500 MG TAB PO STA (02:49)
[2024-07-27] MEDS: PIPERACILLIN-TAZOBACTAM 3.375 GM in SODIUM CHLORIDE 0.9% 100 ML IVPB STA (02:50)
[2024-07-27 02:58] LABS: ALT 16 U/L (4-49); AST 25 U/L (17-59); African American GFR (CKD) 43 (>60 ml/min/1.73 sqM); Albumin 3.6 g/dL (3.5-5.0); Alkaline Phosphatase 81 U/L (38-126); Anion Gap 13 mmol/L; Blood Urea Nitrogen 21 mg/dL (9-20); Calcium 8.6 mg/dL (8.4-10.2); Carbon Dioxide 19 mmol/L (22-30); Chloride 106 mmol/L (98-107); Glucose 90 mg/dL (74-99); INR 2.1 (<1.2); Non-African American GFR(CKD) 37 (>60 ml/min/1.73 sqM); Partial Thromboplastin Time 30.8 sec (22.0-30.0); Potassium 4.6 mmol/L (3.5-5.1); Sodium 138 mmol/L (137-145); Total Bilirubin 0.9 mg/dL (0.2-1.3); Total Protein 6.5 g/dL (6.3-8.2)
[2024-07-27] MEDS: LACTATED RINGERS 500 ML IV SCH (02:59)
[2024-07-27] MEDS: VANCOMYCIN 2,250 MG in SODIUM CHLORIDE 0.9% 500 ML 500 ML IVPB ONE (03:53)
[2024-07-27 04:07] LABS: Appearance,Urine Turbid (Clear); Bacteria,Urine Occasional /hpf; Bilirubin,Urine Negative (Negative); Blood,Urine Moderate (Negative); Color,Urine Yellow; Glucose,Urine (UA) Negative (Negative); Ketones,Urine Negative (Negative); Leukocyte Esterase,Urine Large (Negative); Nitrite,Urine Negative (Negative); Protein,Urine 1+ (Negative); RBC,Urine 20 /hpf (0-5); Specific Gravity,Urine 1.018 (1.001-1.035); Urobilinogen,Urine <2.0 mg/dL (<2.0); WBC,Urine >182 /hpf (0-5)
[2024-07-27] MEDS ORDERED: NALOXONE 0.4 MG/ML 1 ML VIAL IV PRN (04:38)
[2024-07-27] MEDS: NOREPINEPHRINE 32 MG in SODIUM CHLORIDE 0.9% 218 ML IV ONE ×2 (04:51→08:38)
[2024-07-27] MEDS: SODIUM CHLORIDE 0.9% 1,000 ML IV SCH (05:02)
--- NOTE | 2024-07-27 05:05 | CT ---
EXAM: CT Abdomen and Pelvis Without Intravenous Contrast CLINICAL HISTORY: ITS.REASON CT Reason: sepsis, abdominal pain TECHNIQUE: Axial computed tomography images of the abdomen and pelvis without intravenous contrast. CTDI is 52.2 mGy and DLP is 3391 mGy-cm. This CT exam was performed using one or more of the following dose reduction techniques: automated exposure control, adjustment of the mA and/or kV according to patient size, and/or use of iterative reconstruction technique. COMPARISON: CT dated 06/22/2024 FINDINGS: Lung bases: Unremarkable. No mass. No consolidation. Heart: Large pericardial effusion. ABDOMEN: Liver: The liver is enlarged. Simple appearing cysts are seen within the left lobe of the liver which do not require follow-up. Gallbladder and bile ducts: Status post cholecystectomy. No ductal dilation. Pancreas: Unremarkable. No ductal dilation. Spleen: Unremarkable. No splenomegaly. Adrenals: Unremarkable. No mass. Kidneys and ureters: 4.5 mm stone seen within the distal left ureter with moderate left-sided hydronephrosis and hydroureter. No right-sided renal obstruction. Stomach and bowel: Nonspecific rectal wall thickening. Colonic diverticulosis without evidence of acute diverticulitis. No obstruction. PELVIS: Appendix: No findings to suggest acute appendicitis. Bladder: Unremarkable. No stones. Reproductive: Unremarkable as visualized. ABDOMEN and PELVIS: Intraperitoneal space: Unremarkable. No free air. No significant fluid collection. Bones/joints: Degenerative changes are seen within the spine and hips. No acute fracture. No dislocation. Soft tissues: Unremarkable. Vasculature: Calcifications are seen within a nondilated aorta. Lymph nodes: Unremarkable. No enlarged lymph nodes. IMPRESSION: 1. Moderately obstructing distal left ureteral stone. 2. Pericardial effusion.
--- NOTE | 2024-07-27 05:17 | XR ---
EXAM: XR Chest, 1 View CLINICAL HISTORY: ITS.REASON XR Reason: Fever TECHNIQUE: Frontal view of the chest. COMPARISON: X-ray dated 04/30/2024 FINDINGS: Lungs: Opacification of the left lung base. The right lung is clear. Pleural space: The bilateral costophrenic angle is excluded from the film. No pneumothorax. Heart: Moderate enlargement of the cardiac silhouette. Mediastinum: Unremarkable. Normal mediastinal contour. Bones/joints: Partial characterization of cervical spine fusion hardware. No acute fracture. Vasculature: Calcifications overlie the aorta. Tubes, lines and devices: Cardiac conducting device overlies the left axilla with leads overlying the cardiac silhouette. IMPRESSION: Left-sided pleural effusion with adjacent atelectasis and or pneumonia not excluded.
[2024-07-27] MEDS ORDERED: LIDOCAINE 2% (PF) 20 MG/ML 5 ML VIAL ONE (08:03)
[2024-07-27] MEDS ORDERED: fentaNYL (PF) 50 MCG/ML 2 ML AMP ONE (08:03)
[2024-07-27] MEDS: SODIUM CHLORIDE 0.9% 1,000 ML IV ONE (08:03)
[2024-07-27] MEDS ORDERED: ETOMIDATE 2 MG/ML 10 ML VIAL ONE (08:03)
--- NOTE | 2024-07-27 08:09 | P.GSCN ---
History of Present Illness Consult date: 07/27/24 Reason for Consult: UTI, left hydronephrosis Requesting physician: Carina Knott History of present illness: Patient is an 83-year-old white male well-known to our service. He underwent a TURP several years ago. In 2023, he was hospitalized several times with sepsis complicated by left distal ureteral calculi, most recently last month. Urine cultures performed last month showed Enterobacter. Following stent placement, Dr. Orellana performed ureteroscopic removal of a ureteral calculus as well as renal calculi. He now presents with fever and altered mental status. Urinalysis is consistent with infection. CT scan shows evidence of left hydronephrosis, diminished compared to 1 month ago, with a possible 4 mm left distal ureteral calculus. He denies pain, but is requiring vasopressors for his hypotension. Review of Systems - Constitutional Reports fever - Genitourinary Reports kidney stones, Denies flank pain Past Medical History Past Medical History: Atrial Fibrillation, Cancer, Heart Failure, CVA/TIA, GERD/Reflux, Hyperlipidemia, Hypertension, Prostate Disorder Additional Past Medical History / Comment(s): 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 dry skin on arms, numbness in last 2 fingers to left hand, kidney stone. Hx. of C-Diff History of Any Multi-Drug Resistant Organisms: C-DIFF, CRE Year Discovered:: 06/14 CDIFF MDRO Source:: Urine-CRE, Stool Past Surgical History: Cholecystectomy, Hernia Repair, Orthopedic Surgery, P acemaker Additional Past Surgical History / Comment(s): cervical fusion, lithrotripsy, Past Anesthesia/Blood Transfusion Reactions: No Reported Reaction Additional Past Anesthesia/Blood Transfusion Reaction / Comm: Pt has never recieved blood. Type of Cardiac Device: Permanent Pacemaker Device Placement Date:: 2013 Past Psychological History: No Psychological Hx Reported Smoking Status: Former smoker - Past Family History Father Family Medical History: Diabetes Mellitus Mother Family Medical History: Osteoarthritis (OA) Additional Family Medical History / Comment(s): arthritis Medications and Allergies Home Medications Medication Instructions Recorded Confirmed Type Acetaminophen [Tylenol] 1,000 mg PO Q6H PRN 05/30/21 07/27/24 History Albuterol Inhaler [Ventolin Hfa 2 puff INHALATION RT-Q6H PRN each 12/27/23 07/27/24 Rx Inhaler] Potassium Chloride ER [K-Dur 10] 10 meq PO DAILY 03/18/24 07/27/24 History Nystatin 100,000 Unit/gm Powd 1 applic TOPICAL BID PRN 04/30/24 07/27/24 History [Mycostatin Powder] Warfarin [Coumadin] 2.5 mg PO MOFR@209904/30/24 07/27/24 History Warfarin [Coumadin] 5 mg PO SUTUWETHSA@2100 04/30/24 07/27/24 History Cholestyramine (with Sugar) 4 gm PO BID #60 packet 05/12/24 07/27/24 Rx [Questran Packet] Midodrine [ProAmatine] 5 mg PO AC-TID #90 tab 05/12/24 07/27/24 Rx Pantoprazole [Protonix] 40 mg PO DAILY #30 tab 05/12/24 07/27/24 Rx Sodium Bicarbonate Tab 650 mg PO BID #60 tab 05/12/24 07/27/24 Rx Tamsulosin [Flomax] 0.4 mg PO PC-SUPPER #30 cap 05/12/24 07/27/24 Rx amLODIPine [Norvasc] 10 mg PO DAILY 14 Days #14 tab 06/04/24 07/27/24 Rx Allergies Allergy/AdvReac Type Severity Reaction Status Date / Time No Known Allergies Allergy Verified 07/27/24 07:29 Surgical - Exam Vital Signs Temp Pulse Resp BP Pulse Ox 99.5 F 76 40 H 138/100 96 07/27/24 02:04 07/27/24 02:04 07/27/24 02:04 07/27/24 02:04 07/27/24 02:04 - General well developed, well nourished, no distress - Respiratory normal respiratory effort - Abdomen Abdomen: soft, non tender, no guarding, no rigid, no rebound - Genitourinary Phimosis is noted. - Psychiatric oriented to time, oriented to person, oriented to place, speech is normal, memory intact Results - Labs 07/27/24 02:20 07/27/24 02:20 Abnormal Lab Results - Last 24 Hours (Table) 07/27/24 07/27/24 07/27/24 Range/Units 02:20 02:20 02:20 WBC 38.6 H (3.8-10.6) k/uL RDW 16.4 H (11.5-15.5) % Neutrophils # 35.4 H (1.3-7.7) k/uL Monocytes # 1.6 H (0-1.0) k/uL PT 21.0 H (10.0-12.5) sec INR 2.1 H (<1.2) APTT 30.8 H (22.0-30.0) sec Carbon Dioxide 19 L (22-30) mmol/L BUN 21 H (9-20) mg/dL Creatinine 1.67 H (0.66-1.25) mg/dL Plasma Lactic Acid Yasir (0.7-2.0) mmol/L Urine Protein (Negative) Urine Blood (Negative) Ur Leukocyte Esterase (Negative) Urine RBC (0-5) /hpf Urine WBC (0-5) /hpf Urine WBC Clumps (None) /hpf Urine Bacteria (None) /hpf 07/27/24 07/27/24 Range/Units 02:20 03:40 WBC (3.8-10.6) k/uL RDW (11.5-15.5) % Neutrophils # (1.3-7.7) k/uL Monocytes # (0-1.0) k/uL PT (10.0-12.5) sec INR (<1.2) APTT (22.0-30.0) sec Carbon Dioxide (22-30) mmol/L BUN (9-20) mg/dL Creatinine (0.66-1.25) mg/dL Plasma Lactic Acid Yasir 4.3 H* (0.7-2.0) mmol/L Urine Protein 1+ H (Negative) Urine Blood Moderate H (Negative) Ur Leukocyte Esterase Large H (Negative) Urine RBC 20 H (0-5) /hpf Urine WBC >182 H (0-5) /hpf Urine WBC Clumps Few H (None) /hpf Urine Bacteria Occasional H (None) /hpf Diabetes panel 07/27/24 Range/Units 02:20 Sodium 138 (137-145) mmol/L Potassium 4.6 (3.5-5.1) mmol/L Chloride 106 (98-107) mmol/L Carbon Dioxide 19 L (22-30) mmol/L BUN 21 H (9-20) mg/dL Creatinine 1.67 H (0.66-1.25) mg/dL Glucose 90 (74-99) mg/dL Calcium 8.6 (8.4-10.2) mg/dL AST 25 (17-59) U/L ALT 16 (4-49) U/L Alkaline Phosphatase 81 (38-126) U/L Total Protein 6.5 (6.3-8.2) g/dL Albumin 3.6 (3.5-5.0) g/dL Calcium panel 07/27/24 Range/Units 02:20 Calcium 8.6 (8.4-10.2) mg/dL Albumin 3.6 (3.5-5.0) g/dL Pituitary panel 07/27/24 Range/Units 02:20 Sodium 138 (137-145) mmol/L Potassium 4.6 (3.5-5.1) mmol/L Chloride 106 (98-107) mmol/L Carbon Dioxide 19 L (22-30) mmol/L BUN 21 H (9-20) mg/dL Creatinine 1.67 H (0.66-1.25) mg/dL Glucose 90 (74-99) mg/dL Calcium 8.6 (8.4-10.2) mg/dL Adrenal panel 07/27/24 Range/Units 02:20 Sodium 138 (137-145) mmol/L Potassium 4.6 (3.5-5.1) mmol/L Chloride 106 (98-107) mmol/L Carbon Dioxide 19 L (22-30) mmol/L BUN 21 H (9-20) mg/dL Creatinine 1.67 H (0.66-1.25) mg/dL Glucose 90 (74-99) mg/dL Calcium 8.6 (8.4-10.2) mg/dL Total Bilirubin 0.9 (0.2-1.3) mg/dL AST 25 (17-59) U/L ALT 16 (4-49) U/L Alkaline Phosphatase 81 (38-126) U/L Total Protein 6.5 (6.3-8.2) g/dL Albumin 3.6 (3.5-5.0) g/dL - Imaging CT scan - abdomen: report reviewed, image reviewed Assessment and Plan (1) Acute pyelonephritis Current Visit: Yes Status: Acute Code(s): N10 - ACUTE PYELONEPHRITIS SNOMED Code(s): 33868224 (2) Hydronephrosis with renal and ureteral calculous obstruction Current Visit: No Status: Acute Code(s): N13.2 - HYDRONEPHROSIS WITH RENAL AND URETERAL CALCULOUS OBSTRUCTION SNOMED Code(s): 416795223 Plan: Urine and blood cultures were sent. The patient has received Zosyn and van comycin, and as stated is currently receiving vasopressors. He will undergo emergent cystoscopy with left ureteral stent insertion. Time with Patient: Greater than 30
--- NOTE | 2024-07-27 08:40 | P.OP ---
Date of Procedure: 07/27/24 Preoperative Diagnosis: Acute left pyelonephritis, left hydronephrosis secondary to left ureteral calculus Postoperative Diagnosis: Same Procedure(s) Performed: Cystoscopy, left ureteral stent insertion Anesthesia: MAC Surgeon: Shadi Nguyen Estimated Blood Loss (ml): 0 IV fluids (ml): 100 Pathology: none sent Condition: stable Disposition: PACU Indications for Procedure: Patient is an 83-year-old white male well-known to our service. He underwent a TURP several years ago. In 2023, he was hospitalized several times with sepsis complicated by left distal ureteral calculi, most recently last month. Urine cultures performed last month showed Enterobacter. Following stent placement, Dr. Orellana performed ureteroscopic removal of a ureteral calculus as well as renal calculi. He now presents with fever and altered mental status. Urinalysis is consistent with infection. CT scan shows evidence of left hydronephrosis, diminished compared to 1 month ago, with a possible 4 mm left distal ureteral calculus. He denies pain, but is requiring vasopressors for his hypotension. Operative Findings: Successful left ureteral stent insertion. Purulent urine drained from the left renal pelvis. A specimen was sent for C&S. Description of Procedure: The patient was taken to the operating room and placed in the dorsolithotomy position, with legs supported in Sravan stirrups. The external genitalia was prepped and draped sterilely. There was evidence of phimosis, as well as excoriation of the penoscrotal skin. The 30 lens was used to introduce the 22- Tanzanian Stortz cystoscopic sheath through the urethra and into the bladder under direct vision. The prostatic urethra showed evidence of a previous TURP. The prostatic fossa was open. Upon entering the bladder, the bladder was drained and irrigated. The bladder was then inspected and no abnormalities were seen. Specifically, there were no tumors or foreign bodies. The ureteral orifices appeared normal. The bladder was moderately trabeculated with multiple cellules. A 0.035 inch Glidewire was passed through the cystoscope. The left ureteral orifice was cannulated, and the Glidewire was slowly advanced up to the left renal pelvis, where it coiled. There was no resistance to passage of the Glidewire. A 28 cm, 6-Tanzanian double-J ureteral stent was placed over the wire. Proper stent positioning was verified fluoroscopically and endoscopically. Purulent material drained through the stent. With the beak of the cystoscope immediately adjacent to the distal end of the stent, urine was collected and sent for culture and sensitivity. The cystoscope was removed and the procedure was terminated. The patient tolerated the procedure well and was taken to the recovery room in stable condition.
--- NOTE | 2024-07-27 09:07 | FL ---
EXAMINATION TYPE: FL guidance operating room DATE OF EXAM: 07/27/2024 FLUOROSCOPY L STENT INSERTION FOR HYDRONEPHROSIS, 3SEC FL TIME, DAP=1.1883, 1 image is submitted. [facility], Workstation: [id number], 07/27/2024 9:04 AM
--- NOTE | 2024-07-27 11:29 | P.GSCN ---
History of Present Illness Consult date: 07/27/24 Reason for Consult: Large pericardial effusion on CT scan Requesting physician: Pedro Shepherd History of present illness: This is an 83-year-old gentleman who follows on an outpatient basis for his primary care with Dr. Celina Munoz. He has a past medical history significant for moderate pericardial effusion seen on CT scan in May 2024, hypertension, hyperlipidemia, recurrent UTIs, paroxysmal atrial fibrillation on Coumadin as an outpatient, prostate cancer status post radiation treatments, sick sinus syndrome status post permanent pacemaker placement, chronic left lower extremity edema, hydronephrosis with left-sided kidney stones, acute kidney injury, chronic diastolic heart failure, valvular heart disease with moderate aortic valve regurgitation, moderate mitral valve regurgitation, history of C. 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 The patient presented to the emergency department here at [facility] via EMS this morning with complaints of altered mental status and fever. The patient's daughter is present at his bedside and reports he has been having loose stools and also has a history of frequent urinary tract infections. She also reports that he has some sacral wounds that home care has been treating. He denies any recent cough, hematemesis, hemoptysis, headache, visual disturbances, abdominal pain, nausea, vomiting, constipation, shortness of breath, chest pain, chest pressure, presyncope or syncope. On admission a twelve-lead EKG was completed which showed an ventricularly paced rhythm with a heart rate of 70 bpm. Initial laboratory results showed a WBC count of 38.6, hemoglobin 13.0, hematocrit 41.0, platelets 368, PT 21.0, INR 2.1, PTT 30.8, sodium 138, potassium 4.6, chloride 106, CO2 19, BUN 21, creatinine 1.67, plasmic lactic acid venous 4.3, calcium 8.6, AST 25, ALT 16, and initial serology testing for influenza type A, influenza type B, RSV and SARS-CoV-2 all showed not detected. Urinalysis was completed which also showed 1+ protein, moderate blood, large leukocyte Estrace, urine RBC 20, urine WBC greater than 182, and urine bacteria occasional. According to the patient's daughter his Tmax temperature at home was 102.[address] scan of the abdomen and pelvis without intravenous contrast was completed which showed a large pericardial effusion and moderately obstructing distal left urethral stone. The patient also underwent a CT scan of the abdomen/pelvis on 05/29/2024 which revealed a stable moderate pericardial effusion. Subsequently, due to the findings of pericardial effusion on the CT scan of the abdomen/pelvis a consult was placed to cardiothoracic surgery for further evaluation and treatment recommendations. Review of Systems A review of systems was completed and was negative except as mentioned in the HPI. Past Medical History Past Medical History: Atrial Fibrillation, Cancer (Prostate), Heart Failure (Chronic diastolic heart failure), CVA/TIA, GERD/Reflux, Hyperlipidemia, Hypertension, Prostate Disorder Additional Past Medical History / Comment(s): tia-2004, arthritis, uses walker or cane, medical debility, wheelchair-bound at home, enlarged prostate, prostate CA 2014(radiation), hx shingles, kidney stone. Hx. of C-Diff History of Any Multi-Drug Resistant Organisms: C-DIFF, CRE Year Discovered:: 06/14 CDIFF MDRO Source:: Urine-CRE, Stool Past Surgical History: Cholecystectomy, Hernia Repair, Orthopedic Surgery, Pacemaker Additional Past Surgical History / Comment(s): cervical fusion, lithrotripsy, Past Anesthesia/Blood Transfusion Reactions: No Reported Reaction Additional Past Anesthesia/Blood Transfusion Reaction / Comm: Pt has never recie natty blood. Type of Cardiac Device: Permanent Pacemaker Device Placement Date:: 2013, for sick sinus syndrome Past Psychological History: No Psychological Hx Reported Smoking Status: Former smoker (Quit smoking 30 to 40 years ago) Past Alcohol Use History: None Reported Past Drug Use History: None Reported - Past Family History Father Family Medical History: Diabetes Mellitus Additional Family Medical History / Comment(s): History of EtOH, brain tumor Mother Family Medical History: Osteoarthritis (OA) Additional Family Medical History / Comment(s): arthritis, Parkinson disease Medications and Allergies Home Medications Medication Instructions Recorded Confirmed Type Acetaminophen [Tylenol] 1,000 mg PO Q6H PRN 05/30/21 07/27/24 History Albuterol Inhaler [Ventolin Hfa 2 puff INHALATION RT-Q6H PRN each 12/27/23 07/27/24 Rx Inhaler] Potassium Chloride ER [K-Dur 10] 10 meq PO DAILY 03/18/24 07/27/24 History Nystatin 100,000 Unit/gm Powd 1 applic TOPICAL BID PRN 04/30/24 07/27/24 History [Mycostatin Powder] Warfarin [Coumadin] 2.5 mg PO MOFR@2100 04/30/24 07/27/24 History Warfarin [Coumadin] 5 mg PO SUTUWETHSA@2100 04/30/24 07/27/24 History Cholestyramine (with Sugar) 4 gm PO BID #60 packet 05/12/24 07/27/24 Rx [Questran Packet] Midodrine [ProAmatine] 5 mg PO AC-TID #90 tab 05/12/24 07/27/24 Rx Pantoprazole [Protonix] 40 mg PO DAILY #30 tab 05/12/24 07/27/24 Rx Sodium Bicarbonate Tab 650 mg PO BID #60 tab 05/12/24 07/27/24 Rx Tamsulosin [Flomax] 0.4 mg PO PC-SUPPER #30 cap 05/12/24 07/27/24 Rx amLODIPine [Norvasc] 10 mg PO DAILY 14 Days #14 tab 06/04/24 07/27/24 Rx Allergies Allergy/AdvReac Type Severity Reaction Status Date / Time No Known Allergies Allergy Verified 07/27/24 07:29 Surgical - Exam Vital Signs Temp Pulse Resp BP Pulse Ox 99.5 F 76 40 H 138/100 96 07/27/24 02:04 07/27/24 02:04 07/27/24 02:04 07/27/24 02:04 07/27/24 02:04 - General well developed, well nourished, no distress, no pain, chronically ill, obese - Eyes PERRL, normal ocular movement, no pale, no icteric - ENT normal pinna, normal nares, normal mucosa, no hearing loss, no congestion, poor residential - Neck Neck is supple, no lymphadenopathy. no masses, no bruits, trachea midline, no venous distension - Respiratory Lung sounds essentially clear throughout. No wheezes, rhonchi or crackles. Respirations are symmetrical and nonlabored. Oxygen saturations are 96% on 2 L nasal cannula. - Cardiovascular Regular rhythm and rate. S1 and S2 present, negative for S3, gallop or murmur. - Abdomen Abdomen is soft, nontender and nondistended. Active bowel sounds present all 4 abdominal quadrants. No guarding or rigidity. No organomegaly appreciated. Obese. - Genitourinary Deferred - Rectum Deferred - Integumentary Skin is warm and dry. No clubbing or cyanosis is present. Chronic wounds to his sacral area no rash - Neurologic No focal deficits. - Musculoskeletal Moves all 4 extremities with equal strength bilateral. - Psychiatric oriented to time, oriented to person, oriented to place, speech is normal, memory intact Results - Labs 07/27/24 02:20 07/27/24 02:20 Abnormal Lab Results - Last 24 Hours (Table) 07/27/24 07/27/24 07/27/24 Range/Units 02:20 02:20 02:20 WBC 38.6 H (3.8-10.6) k/uL RDW 16.4 H (11.5-15.5) % Neutrophils # 35.4 H (1.3-7.7) k/uL Monocytes # 1.6 H (0-1.0) k/uL PT 21.0 H (10.0-12.5) sec INR 2.1 H (<1.2) APTT 30.8 H (22.0-30.0) sec Carbon Dioxide 19 L (22-30) mmol/L BUN 21 H (9-20) mg/dL Creatinine 1.67 H (0.66-1.25) mg/dL Plasma Lactic Acid Yasir (0.7-2.0) mmol/L Urine Protein (Negative) Urine Blood (Negative) Ur Leukocyte Esterase (Negative) Urine RBC (0-5) /hpf Urine WBC (0-5) /hpf Urine WBC Clumps (None) /hpf Urine Bacteria (None) /hpf 07/27/24 07/27/24 Range/Units 02:20 03:40 WBC (3.8-10.6) k/uL RDW (11.5-15.5) % Neutrophils # (1.3-7.7) k/uL Monocytes # (0-1.0) k/uL PT (10.0-12.5) sec INR (<1.2) APTT (22.0-30.0) sec Carbon Dioxide (22-30) mmol/L BUN (9-20) mg/dL Creatinine (0.66-1.25) mg/dL Plasma Lactic Acid Yasir 4.3 H* (0.7-2.0) mmol/L Urine Protein 1+ H (Negative) Urine Blood Moderate H (Negative) Ur Leukocyte Esterase Large H (Negative) Urine RBC 20 H (0-5) /hpf Urine WBC >182 H (0-5) /hpf Urine WBC Clumps Few H (None) /hpf Urine Bacteria Occasional H (None) /hpf Diabetes panel 07/27/24 Range/Units 02:20 Sodium 138 (137-145) mmol/L Potassium 4.6 (3.5-5.1) mmol/L Chloride 106 (98-107) mmol/L Carbon Dioxide 19 L (22-30) mmol/L BUN 21 H (9-20) mg/dL Creatinine 1.67 H (0.66-1.25) mg/dL Glucose 90 (74-99) mg/dL Calcium 8.6 (8.4-10.2) mg/dL AST 25 (17-59) U/L ALT 16 (4-49) U/L Alkaline Phosphatase 81 (38-126) U/L Total Protein 6.5 (6.3-8.2) g/dL Albumin 3.6 (3.5-5.0) g/dL Calcium panel 07/27/24 Range/Units 02:20 Calcium 8.6 (8.4-10.2) mg/dL Albumin 3.6 (3.5-5.0) g/dL Pituitary panel 07/27/24 Range/Units 02:20 Sodium 138 (137-145) mmol/L Potassium 4.6 (3.5-5.1) mmol/L Chloride 106 (98-107) mmol/L Carbon Dioxide 19 L (22-30) mmol/L BUN 21 H (9-20) mg/dL Creatinine 1.67 H (0.66-1.25) mg/dL Glucose 90 (74-99) mg/dL Calcium 8.6 (8.4-10.2) mg/dL Adrenal panel 07/27/24 Range/Units 02:20 Sodium 138 (137-145) mmol/L Potassium 4.6 (3.5-5.1) mmol/L Chloride 106 (98-107) mmol/L Carbon Dioxide 19 L (22-30) mmol/L BUN 21 H (9-20) mg/dL Creatinine 1.67 H (0.66-1.25) mg/dL Glucose 90 (74-99) mg/dL Calcium 8.6 (8.4-10.2) mg/dL Total Bilirubin 0.9 (0.2-1.3) mg/dL AST 25 (17-59) U/L ALT 16 (4-49) U/L Alkaline Phosphatase 81 (38-126) U/L Total Protein 6.5 (6.3-8.2) g/dL Albumin 3.6 (3.5-5.0) g/dL - Imaging CT scan - abdomen: report reviewed Assessment and Plan Assessment: Large pericardial effusion per CT scan of the abdomen/pelvis, history of moderate pericardial effusion on previous CT scans Acute left pyelonephritis, left hydronephrosis secondary to left ureteral calculus, status post cystoscopy, left ureteral stent insertion by Dr. Nguyen Hypertension Hyperlipidemia Recurrent urinary tract infections Paroxysmal atrial fibrillation on Coumadin as an outpatient, INR today 2.1 Sick sinus syndrome, status post permanent pacemaker placement in 2013 Chronic diastolic heart failure Medical debility, wheelchair-bound at home Chronic wounds to his sacral area History of C. difficile in May 2024 Remote history of nicotine dependence Plan: The patient was seen and examined at his bedside in the emergency department, his daughter is present at his bedside. His chart and diagnostics were reviewed. His case was discussed with Dr. Perry Hinds from cardiothoracic surgery. Transthoracic 2D echocardiogram results remains pending, once transthoracic 2D echocardiogram results reviewed more recommendations to follow. Medical management of other comorbidities per internal medicine, infectious disease, urology and pulmonary/critical care medicine. The patient currently off norepinephrine drip. More recommendations to follow based on patient clinical course. Thank you for this consult. I have personally seen and examined the patient, performed the documentation and the assessment and plan as written. Number of minutes spent on the visit: 30. JODY Potter
[2024-07-27] MEDS: CEFEPIME 2 GM in SODIUM CHLORIDE 0.9% 100 ML IVPB SCH (12:03)
--- NOTE | 2024-07-27 14:42 | P.CNPUL ---
History of Present Illness Consult date: 07/27/24 Chief complaint: Altered mentation History of present illness: This is a 83-year-old male patient was being seen in recovery. The patient presented to the hospital with altered mentation and fever. The patient is known to have multiple medical problems and comorbidities. He has had previous episodes of urine tract infection and urinary sepsis and nephrolithiasis and the patient has a complicated history of left distal ureteral calculus approximately a month ago with a complicated urine tract infection with Enterobacter and at that time the patient was seen by Dr. Asher who performed a ureteroscopy and removal of a ureteral calculus and the patient was treated with antibiotics and he was discharged home. During this current admission, the patient was found to be septic with a white cell count of 38 and he also had an acute kidney injury with a creatinine of 1.6 which is higher compared to his baseline. His lactic acid level was at 4.3. UA was abnormal consistent with UTI with more than 192 white cells and 20 RBCs. Urine cultures and blood cultures were sent. CAT scan of the abdomen was also done that showed evidence of a obstructive distal left ureteral stone with moderate degree of left-sided hydronephrosis and hydroureter consistent with urinary obstruction. Based on that, the patient was taken to the operating room by urology and the patient underwent a left ureteral stent insertion and cystoscopy. Postop, the patient was seen in recovery. The patient was started on pressors and he was receiving norepinephrine at 0.05 mcg/kg/min. He is also on normal saline at rate of 125 cc an hour. He is on oxygen at 2 L/min nasal cannula. His cardiac rhythm is paced. The patient is known to have also moderate pericardial effusion that was also seen on the CAT scan of the abdomen and the pericardial effusion based on the CAT scan images seems to be stable and the patient does not have any tamponade physiology. This is also confirmed on the previous echocardiogram. The patient is also known to have hypertension hyperlipidemia and paroxysmal atrial fibrillation maintained on warfarin on outpatient basis. He is known to have prostate cancer that was treated with radiation therapy and he has sick sinus syndrome and has a permanent pacemaker in place. He has diastolic heart failure with moderate aortic regurgitation and moderate mitral valve regurgitation and previous history of C. difficile colitis back in May 2024. 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 Quit smoking approximately 30 to 40 years ago. Based on previous urinary cultures, the patient had growth with Pseudomonas aeruginosa and VRE based on the urine cultures were obtained on 07/08/2024. Review of Systems ROS unobtainable: due to mental status Past Medical History Past Medical History: Atrial Fibrillation, Cancer (Prostate), Heart Failure (Chronic diastolic heart failure), CVA/TIA, GERD/Reflux, Hyperlipidemia, Hypertension, Prostate Disorder Additional Past Medical History / Comment(s): tia-2004, arthritis, uses walker or cane, medical debility, wheelchair-bound at home, enlarged prostate, prostate CA 2014(radiation), hx shingles, kidney stone. 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 Type of Cardiac Device: Permanent Pacemaker Device Placement Date:: 2013, for sick sinus syndrome Past Psychological History: No Psychological Hx Reported Smoking Status: Former smoker (Quit smoking 30 to 40 years ago) Past Alcohol Use History: None Reported Past Drug Use History: None Reported - Past Family History Father Family Medical History: Diabetes Mellitus Additional Family Medical History / Comment(s): History of EtOH, brain tumor Mother Family Medical History: Osteoarthritis (OA) Additional Family Medical History / Comment(s): arthritis, Parkinson disease Medications and Allergies Home Medications Medication Instructions Recorded Confirmed Type Acetaminophen [Tylenol] 1,000 mg PO Q6H PRN 05/30/21 07/27/24 History Albuterol Inhaler [Ventolin Hfa 2 puff INHALATION RT-Q6H PRN each 12/27/23 07/27/24 Rx Inhaler] Potassium Chloride ER [K-Dur 10] 10 meq PO DAILY 03/18/24 07/27/24 History Nystatin 100,000 Unit/gm Powd 1 applic TOPICAL BID PRN 04/30/24 07/27/24 History [Mycostatin Powder] Warfarin [Coumadin] 2.5 mg PO MOFR@2100 04/30/24 07/27/24 History Warfarin [Coumadin] 5 mg PO SUTUWETHSA@2100 04/30/24 07/27/24 History Cholestyramine (with Sugar) 4 gm PO BID #60 packet 05/12/24 07/27/24 Rx [Questran Packet] Midodrine [ProAmatine] 5 mg PO AC-TID #90 tab 05/12/24 07/27/24 Rx Pantoprazole [Protonix] 40 mg PO DAILY #30 tab 05/12/24 07/27/24 Rx Sodium Bicarbonate Tab 650 mg PO BID #60 tab 05/12/24 07/27/24 Rx Tamsulosin [Flomax] 0.4 mg PO PC-SUPPER #30 cap 05/12/24 07/27/24 Rx amLODIPine [Norvasc] 10 mg PO DAILY 14 Days #14 tab 06/04/24 07/27/24 Rx Allergies Allergy/AdvReac Type Severity Reaction Status Date / Time No Known Allergies Allergy Verified 07/27/24 07:29 Physical Exam Vitals: Vital Signs Temp Pulse Pulse Resp BP BP Pulse Ox 07/27/24 10:45 62 16 135/60 96 07/27/24 10:15 59 L 17 155/68 95 07/27/24 10:00 63 17 139/63 98 07/27/24 09:30 59 L 17 156/71 99 07/27/24 09:15 59 L 16 156/70 98 07/27/24 08:53 61 15 121/60 97 07/27/24 08:38 97.8 F 66 17 144/65 94 L 07/27/24 07:51 98 F 61 24 109/50 97 07/27/24 06:35 60 24 108/51 07/27/24 06:16 60 22 109/51 97 07/27/24 06:10 60 24 103/48 07/27/24 05:56 108/46 07/27/24 05:50 60 96/47 07/27/24 05:36 102/46 07/27/24 05:31 97/46 07/27/24 05:25 60 20 92/47 97 07/27/24 05:10 60 24 91/43 97 07/27/24 05:06 60 22 80/42 95 07/27/24 05:02 78/38 07/27/24 04:56 83/40 07/27/24 04:52 60 24 77/37 94 L 07/27/24 03:50 65 24 78/38 93 L 07/27/24 03:15 61 28 H 93/43 92 L 07/27/24 02:30 75 30 H 141/96 92 L 07/27/24 02:04 99.5 F 76 40 H 138/100 96 Intake and Output 07/26/24 07/27/24 07/27/24 22:59 06:59 14:59 Intake Total 5.777 100 Output Total 0 Balance 5.777 100 Intake: IV 100 Intake, IV Titration 5.777 Amount Norepinephrine 32 mg In 5.777 Sodium Chloride 0.9% 218 ml @ 0.03 MCG/KG/MIN 1. 818 mls/hr IV .Q24H ONE Rx#:[id number] Output: Estimated Blood Loss 0 Other: Weight 129.274 kg GENERAL EXAM: Alert, 83-year-old male patient, on room air, in no apparent distress. The patient is currently on 2 L of oxygen by nasal cannula. HEAD: Normocephalic. EYES: Normal reaction of pupils, equal size. NOSE: Clear with pink turbinates. THROAT: No erythema or exudates. NECK: No masses, no JVD. CHEST: No chest wall deformity. LUNGS: Equal air entry with no crackles, wheeze, rhonchi or dullness. CVS: S1 and S2 normal with no audible murmur, regular rhythm. The cardiac rhythm is paced at this point in time, V pacing ABDOMEN: No hepatosplenomegaly, normal bowel sounds, no guarding or rigidity. SPINE: No scoliosis or deformity SKIN: No rashes CENTRAL NERVOUS SYSTEM: Altered mentation, neurologic exam is nonfocal and the patient is moving all 4 extremities. EXTREMITIES: There is no peripheral edema. No clubbing, no cyanosis. P eripheral pulses are intact. Results - Laboratory Findings CBC and BMP: 07/27/24 02:20 07/27/24 02:20 PT/INR, D-dimer PT 21.0 sec (10.0-12.5) H 07/27/24 02:20 INR 2.1 (<1.2) H 07/27/24 02:20 Abnormal lab findings: Abnormal Labs 0107/27/24 07/27/24 02:20 02:20 02:20 WBC 38.6 H RDW 16.4 H Neutrophils # 35.4 H Monocytes # 1.6 H PT 21.0 H INR 2.1 H APTT 30.8 H Carbon Dioxide 19 L BUN 21 H Creatinine 1.67 H Plasma Lactic Acid Yasir Urine Protein Urine Blood Ur Leukocyte Esterase Urine RBC Urine WBC Urine WBC Clumps Urine Bacteria 07/27/24 07/27/24 02:20 03:40 WBC RDW Neutrophils # Monocytes # PT INR APTT Carbon Dioxide BUN Creatinine Plasma Lactic Acid Yasir 4.3 H* Urine Protein 1+ H Urine Blood Moderate H Ur Leukocyte Esterase Large H Urine RBC 20 H Urine WBC >182 H Urine WBC Clumps Few H Urine Bacteria Occasional H - Diagnostic Findings Chest x-ray: image reviewed Assessment and Plan Plan: Acute sepsis with secondary hypotension secondary to a complicated urinary tract infection. Patient is currently on fluid resuscitation and the patient is on low-dose norepinephrine for hemodynamic support. Left renal pyelonephritis secondary to obstructive uropathy related to a left ureteral stone and secondary hydronephrosis Left hydronephrosis, secondary to left renal/distal ureteral calculus and the patient is status post cystoscopy and double-J tube insertion and the patient is currently postop day #0. Hypotension secondary to above, currently on norepinephrine which is running at 0.05 mcg/kg/min Acute leukocytosis History of recurrent urinary tract infections, currently has a Aguilar catheter in place. T prostate cancer with previous radiation therapy and TURP Diverticulosis without acute diverticulitis Acute lactic acidosis Pericardial effusion, small to moderate-sized previous echocardiogram from 05/30/2024 showed preserved LV function with an ejection fraction of 55 to 60% along with severe RV dilatation and the patient is known to have a mild pericard ial effusion without any signs of tamponade based on previous echocardiogram. History of present C. difficile colitis, currently inactive and stable Paroxysmal atrial fibrillation anticoagulated with warfarin , current rhythm is paced Permanent pacemaker History of hypertension History of hyperlipidemia History of renal stones with previous lithotripsy Obesity, with a BMI of 38.7 kg/m Stage 2 coccyx and hip wounds Plan Continue IV fluids and the patient is on normal citrate of 130 cc an hour Urine cultures Blood cultures Broad-spectrum antibiotic coverage and the choice will be a combination of cefepime and daptomycin based on previous history of VRE in his urine along with gram-negative urine tract infections Pressors and the patient is currently on low-dose norepinephrine Continue anticoagulation with warfarin, PT/INR is therapeutic for now Resume Flomax IV Protonix Hold antihypertensive medication including amlodipine Monitor lactic acid level Monitor the white cell count Monitor mental status Condition is critical and will continue to follow make further recommendations based on his progress. May likely need ICU admission if he continues to have issues with hypotension and he continues to have pressor requirements. Will ask cardiothoracic surgery to follow-up on the pericardial effusion, as the patient has a moderate-sized chronic pericardial effusion without any tamponade physiology. Repeat 2D echocardiogram
[2024-07-27 16:49] LABS: Glucose,Whole Blood 88 mg/dL (70-110)
[2024-07-27] MEDS ORDERED: ZINC OXIDE PASTE (Z-GUARD) 1 APPLIC TOPICAL PRN (17:02)
[2024-07-27] MEDS ORDERED: ALBUTEROL NEBULIZED 2.5 MG/3 ML INHALATION PRN (19:12)
--- NOTE | 2024-07-27 19:24 | P.HPIM ---
Review of Systems 83 years old female with past medical history of multiple medical problems as below Presents initially with generalized weakness, he could not get up from sitting position and he felt very weak Other than that he denies any specific symptoms However on exam he has significant suprapubic tenderness. Patient denies chest pain or dyspnea, no GI symptoms, no neurological symptoms specifically no headache weakness numbness Patient was suspected to have UTI but no much of symptoms but on exam he has suprapubic pain and tenderness. Dyspnea is quite rate. Patient states that he has been having incontinence of urine since last summer. On admission he looks septic, he had fever, hypotension tachypnea and tachycardia. Workup showed CT of the abdomen and pelvis with moderate obstructive left ureteral stone. Other incidental findings of pericardial effusion Other labs showing significant leukocytosis of 38,000, creatinine above baseline 1.6 with baseline 1.1-1.3 Patient INR is therapeutic at 2.1 while he is on Coumadin Has elevated lactic acid 4.3, bilirubin 0.5 Chest x-ray read as left pleural effusion with atelectasis, less likely felt the patient has pneumonia. Patient denies any respiratory symptoms EKG showing ventricular paced rhythm Echocardiogram was pending Patient was started on antibiotics with daptomycin and cefepime Also patient was taken emergently to the operation room with stent placed in the left uterus I saw the patient in the postop exam unit he was doing well fully awake and oriented does not look in distress with no significant pain. However once he got to the ICU started on small dose of pressors with Levophed 0.03 Past Medical History Past Medical History: Atrial Fibrillation, Cancer, Heart Failure, CVA/TIA, GERD/Reflux, Hyperlipidemia, Hypertension, Prostate Disorder Additional Past Medical History / Comment(s): 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 dry skin on arms, numbness in last 2 fingers to left hand, kidney stone. 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 Type of Cardiac Device: Permanent Pacemaker Device Placement Date:: 2013 Past Psychological History: No Psychological Hx Reported Smoking Status: Former smoker - Past Family History Father Family Medical History: Diabetes Mellitus Mother Family Medical History: Osteoarthritis (OA) Additional Family Medical History / Comment(s): arthritis Medications and Allergies Home Medications Medication Instructions Recorded Confirmed Type Acetaminophen [Tylenol] 1,000 mg PO Q6H PRN 05/30/21 07/27/24 History Albuterol Inhaler [Ventolin Hfa 2 puff INHALATION RT-Q6H PRN each 12/27/23 07/27/24 Rx Inhaler] Potassium Chloride ER [K-Dur 10] 10 meq PO DAILY 03/18/24 07/27/24 History Nystatin 100,000 Unit/gm Powd 1 applic TOPICAL BID PRN 04/30/24 07/27/24 History [Mycostatin Powder] Warfarin [Coumadin] 2.5 mg PO MOFR@2100 04/30/24 07/27/24 History Warfarin [Coumadin] 5 mg PO SUTUWETHSA@2100 04/30/24 07/27/24 History Cholestyramine (with Sugar) 4 gm PO BID #60 packet 05/12/24 07/27/24 Rx [Questran Packet] Midodrine [ProAmatine] 5 mg PO AC-TID #90 tab 05/12/24 07/27/24 Rx Pantoprazole [Protonix] 40 mg PO DAILY #30 tab 05/12/24 07/27/24 Rx Sodium Bicarbonate Tab 650 mg PO BID #60 tab 05/12/24 07/27/24 Rx Tamsulosin [Flomax] 0.4 mg PO PC-SUPPER #30 cap 05/12/24 07/27/24 Rx amLODIPine [Norvasc] 10 mg PO DAILY 14 Days #14 tab 06/04/24 07/27/24 Rx Allergies Allergy/AdvReac Type Severity Reaction Status Date / Time No Known Allergies Allergy Verified 07/27/24 07:29 Physical Exam Vitals: Vital Signs Temp Pulse Resp BP Pulse Ox 07/27/24 06:10 60 24 103/48 07/27/24 05:56 108/46 07/27/24 05:50 60 96/47 07/27/24 05:36 102/46 07/27/24 05:31 97/46 07/27/24 05:25 60 20 92/47 97 07/27/24 05:10 60 24 91/43 97 07/27/24 05:06 60 22 80/42 95 07/27/24 05:02 78/38 07/27/24 04:56 83/40 07/27/24 04:52 60 24 77/37 94 L 07/27/24 03:50 65 24 78/38 93 L 07/27/24 03:15 61 28 H 93/43 92 L 07/27/24 02:30 75 30 H 141/96 92 L 07/27/24 02:04 99.5 F 76 40 H 138/100 96 Intake and Output 07/26/24 07/26/24 07/27/24 14:59 22:59 06:59 Intake Total 5.777 Balance 5.777 Intake: Intake, IV Titration 5.777 Amount Norepinephrine 32 mg In 5.777 Sodium Chloride 0.9% 218 ml @ 0.03 MCG/KG/MIN 1. 818 mls/hr IV .Q24H ONE Rx#:[id number] Other: Weight 129.274 kg -GENERAL: The patient is alert and oriented x3, not in any acute distress. Well developed, well nourished. Morbidly obese with BMI 30.7 on admission HEENT: Pupils are round and equally reacting to light. EOMI. No scleral icterus. No conjunctival pallor. Normocephalic, atraumatic. No pharyngeal erythema. No thyromegaly. CARDIOVASCULAR: S1 and S2 present. No murmurs, rubs, or gallops. PULMONARY: Chest is clear to auscultation, no wheezing , no crackles. -ABDOMEN: Soft, suprapubic tenderness with no rebound tenderness, nondistended, normoactive bowel sounds. No palpable organomegaly. Perineal area is very erythematous and wet from urine incontinence MUSCULOSKELETAL: No joint swelling or deformity. EXTREMITIES: No cyanosis, clubbing, or pedal edema. NEUROLOGICAL: Gross neurological examination did not reveal any focal deficits. SKIN: No rashes. no petechiae. Results CBC & Chem 7: 07/27/24 02:20 07/27/24 02:20 Labs: Abnormal Lab Results - Last 24 Hours (Table) 07/27/24 07/27/24 07/27/24 Range/Units 02:20 02:20 02:20 WBC 38.6 H (3.8-10.6) k/uL RDW 16.4 H (11.5-15.5) % Neutrophils # 35.4 H (1.3-7.7) k/uL Monocytes # 1.6 H (0-1.0) k/uL PT 21.0 H (10.0-12.5) sec INR 2.1 H (<1.2) APTT 30.8 H (22.0-30.0) sec Carbon Dioxide 19 L (22-30) mmol/L BUN 21 H (9-20) mg/dL Creatinine 1.67 H (0.66-1.25) mg/dL Plasma Lactic Acid Yasir (0.7-2.0) mmol/L Urine Protein (Negative) Urine Blood (Negative) Ur Leukocyte Esterase (Negative) Urine RBC (0-5) /hpf Urine WBC (0-5) /hpf Urine WBC Clumps (None) /hpf Urine Bacteria (None) /hpf 07/27/24 07/27/24 Range/Units 02:20 03:40 WBC (3.8-10.6) k/uL RDW (11.5-15.5) % Neutrophils # (1.3-7.7) k/uL Monocytes # (0-1.0) k/uL PT (10.0-12.5) sec INR (<1.2) APTT (22.0-30.0) sec Carbon Dioxide (22-30) mmol/L BUN (9-20) mg/dL Creatinine (0.66-1.25) mg/dL Plasma Lactic Acid Yasir 4.3 H* (0.7-2.0) mmol/L Urine Protein 1+ H (Negative) Urine Blood Moderate H (Negative) Ur Leukocyte Esterase Large H (Negative) Urine RBC 20 H (0-5) /hpf Urine WBC >182 H (0-5) /hpf Urine WBC Clumps Few H (None) /hpf Urine Bacteria Occasional H (None) /hpf Assessment and Plan Assessment: Acute left pyelonephritis status post obstructive ureteral calculus status post stent insertion on 07/27 Severe sepsis secondary to above with leukocytosis tachypnea tachycardia, dyspnea progressing to septic shock if patient needs pressors Dehydration Acute kidney injury on chronic kidney disease Pericardial effusion for which cardiothoracic surgery has been consulted Plan: Continue with broad-spectrum antibiotics with daptomycin and cefepime as per ID team Urology following closely and patient s/p stent placement Follow-up urine culture blood culture Patient is going to be pressors Continue warfarin and therapeutic INR of 2-3 Cardiothoracic surgery consult for pericardial effusion, pending echocardiogram Pulmonary/critical care team consult Infectious disease team consult Labs and medication were reviewed.. Continue same treatment. Continue with symptomatic treatment. Resume home medication. Monitor labs and vitals. DVT and GI prophylaxis. Further recommendations as per clinical course of the patient DVT prophylaxis: Warfarin GI Prophylaxis: Protonix PT/OT: Pending Prognosis is guarded
[2024-07-28] MEDS ORDERED: VANCOMYCIN 2,250 MG in SODIUM CHLORIDE 0.9% 500 ML 500 ML IVPB SCH (04:00)
--- NOTE | 2024-07-28 05:09 | P.CONS ---
History of Present Illness - Reason for Consult Consult date: 07/27/24 Infection Requesting physician: Pedro Shepherd - Chief Complaint Fever flank pain x 1 day - History of Present Illness Patient is a 83-year-old male with a past medical history significant for UTI kidney stones history of recurrent C. difficile colitis patient has been brought into the hospital for evaluation of mental status changes apparently the patient noticed to have a fever at home that apparently started the day of presentation to the hospital patient was also complaining of some flank pain on the left side that apparently started the day of presentation to the hospital describing the pain to be dull aching to sharp moderate intensity without rad iation patient did have some nausea but no vomiting he denies having any diarrhea with the symptoms the patient was evaluated on presentation to the hospital patient was running a low-grade fever of 99.5 patient did have white count of 38.6 BUN and creatinine has been mildly elevated liver enzymes are normal urine has been positive influenza RSV COVID testing was negative patient did have abdominal pelvis CT moderately obstructing distal left ureteral stone and pericardial effusion patient was taken to the OR and is status post left ureteral stent placement patient was started on vancomycin pharmacy to dose by the ER physician infectious disease was consulted regarding infection Review of Systems Positive point and negatives has been mentioned in the HPI, complete review of systems was performed and all other systems are negative Past Medical History Past Medical History: Atrial Fibrillation, Cancer (Prostate), Heart Failure (Chronic diastolic heart failure), CVA/TIA, GERD/Reflux, Hyperlipidemia, Hypertension, Prostate Disorder Additional Past Medical History / Comment(s): tia-2004, arthritis, uses walker or cane, medical debility, wheelchair-bound at home, enlarged prostate, prostate CA 2014(radiation), hx shingles, kidney stone. Hx. of C-Diff History of Any Multi-Drug Resistant Organisms: C-DIFF, CRE Year Discovered:: 06/14 CDIFF MDRO Source:: Urine-CRE, Stool Past Surgical History: Cholecystectomy, Hernia Repair, Orthopedic Surgery, Pacemaker Additional Past Surgical History / Comment(s): cervical fusion, lithrotripsy, Past Anesthesia/Blood Transfusion Reactions: No Reported Reaction Additional Past Anesthesia/Blood Transfusion Reaction / Comm: Pt has never recieved blood. Type of Cardiac Device: Permanent Pacemaker Device Placement Date:: 2013, for sick sinus syndrome Past Psychological History: No Psychological Hx Reported Smoking Status: Former smoker (Quit smoking 30 to 40 years ago) Past Alcohol Use History: None Reported Past Drug Use History: None Reported - Past Family History Father Family Medical History: Diabetes Mellitus Additional Family Medical History / Comment(s): History of EtOH, brain tumor Mother Family Medical History: Osteoarthritis (OA) Additional Family Medical History / Comment(s): arthritis, Parkinson disease Medications and Allergies Home Medications Medication Instructions Recorded Confirmed Type Acetaminophen [Tylenol] 1,000 mg PO Q6H PRN 05/30/21 07/27/24 History Albuterol Inhaler [Ventolin Hfa 2 puff INHALATION RT-Q6H PRN each 12/27/23 07/27/24 Rx Inhaler] Potassium Chloride ER [K-Dur 10] 10 meq PO DAILY 03/18/24 07/27/24 History Nystatin 100,000 Unit/gm Powd 1 applic TOPICAL BID PRN 04/30/24 07/27/24 History [Mycostatin Powder] Warfarin [Coumadin] 2.5 mg PO MOFR@209904/30/24 07/27/24 History Warfarin [Coumadin] 5 mg PO SUTUWETHSA@2100 04/30/24 07/27/24 History Cholestyramine (with Sugar) 4 gm PO BID #60 packet 05/12/24 07/27/24 Rx [Questran Packet] Midodrine [ProAmatine] 5 mg PO AC-TID #90 tab 05/12/24 07/27/24 Rx Pantoprazole [Protonix] 40 mg PO DAILY #30 tab 05/12/24 07/27/24 Rx Sodium Bicarbonate Tab 650 mg PO BID #60 tab 05/12/24 07/27/24 Rx Tamsulosin [Flomax] 0.4 mg PO PC-SUPPER #30 cap 05/12/24 07/27/24 Rx amLODIPine [Norvasc] 10 mg PO DAILY 14 Days #14 tab 06/04/24 07/27/24 Rx Allergies Allergy/AdvReac Type Severity Reaction Status Date / Time No Known Allergies Allergy Verified 07/27/24 07:29 Physical Exam Vitals: Vital Signs Temp Pulse Pulse Resp BP BP Pulse Ox 07/27/24 10:45 62 16 135/60 96 07/27/24 10:15 59 L 17 155/68 95 07/27/24 10:00 63 17 139/63 98 07/27/24 09:30 59 L 17 156/71 99 07/27/24 09:15 59 L 16 156/70 98 07/27/24 08:53 61 15 121/60 97 07/27/24 08:38 97.8 F 66 17 144/65 94 L 07/27/24 07:51 98 F 61 24 109/50 97 07/27/24 06:35 60 24 108/51 07/27/24 06:16 60 22 109/51 97 07/27/24 06:10 60 24 103/48 07/27/24 05:56 108/46 07/27/24 05:50 60 96/47 07/27/24 05:36 102/46 07/27/24 05:31 97/46 07/27/24 05:25 60 20 92/47 97 07/27/24 05:10 60 24 91/43 97 07/27/24 05:06 60 22 80/42 95 07/27/24 05:02 78/38 07/27/24 04:56 83/40 07/27/24 04:52 60 24 77/37 94 L 07/27/24 03:50 65 24 78/38 93 L 07/27/24 03:15 61 28 H 93/43 92 L 07/27/24 02:30 75 30 H 141/96 92 L 07/27/24 02:04 99.5 F 76 40 H 138/100 96 Intake and Output 07/26/24 07/27/24 07/27/24 22:59 06:59 14:59 Intake Total 5.777 100 Output Total 0 Balance 5.777 100 Intake: IV 100 Intake, IV Titration 5.777 Amount Norepinephrine 32 mg In 5.777 Sodium Chloride 0.9% 218 ml @ 0.03 MCG/KG/MIN 1. 818 mls/hr IV .Q24H [facility] Rx#:[id number] Output: Estimated Blood Loss 0 Other: Weight 129.274 kg GENERAL DESCRIPTION: Elderly male lying in bed, no distress. No tachypnea or accessory muscle of respiration use. HEENT: Shows Pallor , no scleral icterus. Oral mucous membrane is dry. NECK: Trachea central, no thyromegaly. LUNGS: Unlabored breathing. Decreased breath sound the base HEART: S1, S2, regular rate and rhythm. No loud murmur ABDOMEN: Soft, no tenderness , guarding or rigidity, no organomegaly EXTREMITIES: No edema of feet. SKIN: No rash, no masses palpable. NEUROLOGICAL: The patient is awake, alert, mood and affect normal. Results CBC & Chem 7: 07/27/24 02:20 07/27/24 02:20 Labs: Abnormal Lab Results - Last 24 Hours (Table) 07/27/24 07/27/24 07/27/24 Range/Units 02:20 02:20 02:20 WBC 38.6 H (3.8-10.6) k/uL RDW 16.4 H (11.5-15.5) % Neutrophils # 35.4 H (1.3-7.7) k/uL Monocytes # 1.6 H (0-1.0) k/uL PT 21.0 H (10.0-12.5) sec INR 2.1 H (<1.2) APTT 30.8 H (22.0-30.0) sec Carbon Dioxide 19 L (22-30) mmol/L BUN 21 H (9-20) mg/dL Creatinine 1.67 H (0.66-1.25) mg/dL Plasma Lactic Acid Yasir (0.7-2.0) mmol/L Urine Protein (Negative) Urine Blood (Negative) Ur Leukocyte Esterase (Negative) Urine RBC (0-5) /hpf Urine WBC (0-5) /hpf Urine WBC Clumps (None) /hpf Urine Bacteria (None) /hpf 07/27/24 07/27/24 Range/Units 02:20 03:40 WBC (3.8-10.6) k/uL RDW (11.5-15.5) % Neutrophils # (1.3-7.7) k/uL Monocytes # (0-1.0) k/uL PT (10.0-12.5) sec INR (<1.2) APTT (22.0-30.0) sec Carbon Dioxide (22-30) mmol/L BUN (9-20) mg/dL Creatinine (0.66-1.25) mg/dL Plasma Lactic Acid Yasir 4.3 H* (0.7-2.0) mmol/L Urine Protein 1+ H (Negative) Urine Blood Moderate H (Negative) Ur Leukocyte Esterase Large H (Negative) Urine RBC 20 H (0-5) /hpf Urine WBC >182 H (0-5) /hpf Urine WBC Clumps Few H (None) /hpf Urine Bacteria Occasional H (None) /hpf Assessment and Plan (1) Acute pyelonephritis Current Visit: Yes Status: Acute Code(s): N10 - ACUTE PYELONEPHRITIS SNOMED Code(s): 73329362 (2) Sepsis Current Visit: Yes Status: Acute Code(s): A41.9 - SEPSIS, UNSPECIFIED ORGANISM SNOMED Code(s): 47656440 (3) Leukocytosis Current Visit: No Status: Acute Code(s): D72.829 - ELEVATED WHITE BLOOD CELL COUNT, UNSPECIFIED SNOMED Code(s): 315859324 Plan: 1patient presented to hospital with sepsis in this patient with fever elevated white count source is complicated UTI as the patient did have a left-sided ureteral stone requiring cystoscopy and ureteral stent placement last urine culture positive for VRE and Pseudomonas aeruginosa that was on 07/08/2024 2patient with renal insufficiency and high risk of nephrotoxicity from vancomycin. 3discontinue vancomycin 4we will start the patient on daptomycin and cefepime pending finalization of his culture We will follow on clinical condition and cultures to further adjust medication if needed Thank you for this consultation we will follow the patient along with you Dictation was produced using HASH dictation software. please excuse any grammatical, word or spelling errors. Time with Patient: Greater than 30
[2024-07-28 06:22] LABS: Anisocytosis Slight; HCT 31.9 % (39.0-53.0); HGB 10.2 gm/dL (13.0-17.5); Hypochromasia Slight; MCH 26.6 pg (25.0-35.0); MCHC 31.8 g/dL (31.0-37.0); MCV 83.5 fL (80.0-100.0); Mean Platelet Volume 7.2; Platelet Count 282 k/uL (150-450); RBC 3.82 m/uL (4.30-5.90); RDW 16.4 % (11.5-15.5); WBC 36.3 k/uL (3.8-10.6)
[2024-07-28 06:36] LABS: African American GFR (CKD) 42 (>60 ml/min/1.73 sqM); Anion Gap 9 mmol/L; Blood Urea Nitrogen 27 mg/dL (9-20); Calcium 7.6 mg/dL (8.4-10.2); Carbon Dioxide 18 mmol/L (22-30); Chloride 111 mmol/L (98-107); Glucose 91 mg/dL (74-99); Magnesium 1.8 mg/dL (1.6-2.3); Non-African American GFR(CKD) 37 (>60 ml/min/1.73 sqM); Potassium 3.6 mmol/L (3.5-5.1); Sodium 138 mmol/L (137-145)
[2024-07-28] MEDS ORDERED: Magnesium Replacement Protocol 1 EACH MISC MISCELLANE PRN (08:13)
[2024-07-28] MEDS ORDERED: Potassium Replacement Protocol 1 EACH MISC MISCELLANE PRN (08:13)
--- NOTE | 2024-07-28 08:18 | P.PN ---
Subjective 83 years old female with past medical history of multiple medical problems as below Presents initially with generalized weakness, he could not get up from sitting position and he felt very weak Other than that he denies any specific symptoms However on exam he has significant suprapubic tenderness. Patient denies chest pain or dyspnea, no GI symptoms, no neurological symptoms specifically no headache weakness numbness Patient was suspected to have UTI but no much of symptoms but on exam he has suprapubic pain and tenderness. Dyspnea is quite rate. Patient states that he has been having incontinence of urine since last summer. On admission he looks septic, he had fever, hypotension tachypnea and tachycardia. Workup showed CT of the abdomen and pelvis with moderate obstructive left ureteral stone. Other incidental findings of pericardial effusion Other labs showing significant leukocytosis of 38,000, creatinine above baseline 1.6 with baseline 1.1-1.3 Patient INR is therapeutic at 2.1 while he is on Coumadin Has elevated lactic acid 4.3, bilirubin 0.5 Chest x-ray read as left pleural effusion with atelectasis, less likely felt the patient has pneumonia. Patient denies any respiratory symptoms EKG showing ventricular paced rhythm Echocardiogram was pending Patient was started on antibiotics with daptomycin and cefepime Also patient was taken emergently to the operation room with stent placed in the left uterus I saw the patient in the postop exam unit he was doing well fully awake and oriented does not look in distress with no significant pain. However once he got to the ICU started on small dose of pressors with Levophed 0.03 1/7 Patient is awake today He is seen in the ICU lying in bed looks comfortable feels mild general weakness No overt urinary symptoms no suprapubic pain or tenderness, he has external urine catheter with good urine output and yellow in color His perineal erythema is also improving He had 2 episodes of diarrhea last night He is on normal saline at 120 mL/h Continued on broad-spectrum antibiotics with daptomycin and cefepime Labs showing leukocytosis almost the same 36.3, creatinine around the same 1.7. Resume warfarin once cleared by surgery team Review of systems CONSTITUTIONAL: No fever, no malaise, no fatigue. HEENT: No recent visual problems or hearing problems. Denied any sore throat. CARDIOVASCULAR: No orthopnea, PND, no palpitations, no syncope. PULMONARY: No shortness of breath, no cough, no hemoptysis. . HEMATOLOGICAL: Denies any bleeding or petechiae. GENITOURINARY: Denies any burning micturition, frequency, or urgency. MUSCULOSKELETAL/RHEUMATOLOGICAL: Denies any joint pain, swelling, or any muscle pain. Active Medications Generic Name Dose Route Start Last Admin Trade Name Freq PRN Reason Stop Dose Admin Albuterol Sulfate 2.5 mg 07/27/24 19:12 Albuterol Nebulized 2.5 Mg/3 Ml INHALATION RT-Q6H PRN Shortness Of Breath Or Wheezing Sodium Chloride 1,000 mls @ 130 mls/hr 07/27/24 02:30 07/28/24 03:53 Saline 0.9% IV 130 mls/hr .Q7H42M ALEJANDRO Administration Daptomycin 600 mg/ Sodium 50 mls @ 100 mls/hr 07/27/24 11:30 07/27/24 12:04 Chloride IVPB 100 mls/hr Q24HR ALEJANDRO Administration Protocol Cefepime HCl 2 gm/ Sodium 100 mls @ 25 mls/hr 07/27/24 11:00 07/27/24 23:39 Chloride IVPB 25 mls/hr Q12H ALEJANDRO Administration Protocol Naloxone HCl 0.2 mg 07/27/24 04:38 Naloxone 0.4 Mg/Ml 1 Ml Vial IV Q2M PRN Opioid Reversal Pantoprazole Sodium 40 mg 07/28/24 09:00 Pantoprazole 40 Mg Tablet PO DAILY ALEJANDRO Petrolatum 1 applic 07/27/24 17:02 Zinc Oxide Paste (Z-Guard) 1 Applic TOPICAL Q2HR PRN Wound Healing Protocol Tamsulosin HCl 0.4 mg 07/28/24 18:30 Tamsulosin 0.4 Mg Cap.Er.24h PO PC-SUPPER ALEJANDRO Objective - Vital Signs Vital signs: Vital Signs Temp 98.0 F 07/28/24 00:00 Pulse 60 07/28/24 07:00 Resp 17 07/28/24 07:00 BP 101/48 07/28/24 07:00 Pulse Ox 96 07/28/24 07:00 FiO2 Intake & Output 07/27/24 07/28/24 07/28/24 18:59 06:59 18:59 Intake Total 8108.761 0675 130 Output Total 0 150 100 Balance 8083.370 2078 30 Weight 129.274 kg 124.7 kg Intake: IV 600 1530 130 Cefepime 2 gm In Sodium 100 Chloride 0.9% 100 ml @ 25 mls/hr IVPB Q12H [facility] Rx# :[id number] Sodium Chloride 0.9% 1, 1430 130 000 ml @ 130 mls/hr IV . Q7H42M [facility] Rx#:[id number] Intake, IV Titration 455.953 Amount Norepinephrine 32 mg In 65.953 Sodium Chloride 0.9% 218 ml @ 0.03 MCG/KG/MIN 1. 818 mls/hr IV .Q24H [facility] Rx#:[id number] Sodium Chloride 0.9% 1, 390 000 ml @ 130 mls/hr IV . Q7H42M [facility] Rx#:[id number] Output: Urine 0 150 100 Estimated Blood Loss 0 Other: Voiding Method External Catheter External Catheter # Voids 1 1 # Bowel Movements 1 - Exam -GENERAL: The patient is alert and oriented x3, not in any acute distress. Obese HEENT: Pupils are round and equally reacting to light. EOMI. No scleral icterus. No conjunctival pallor. Normocephalic, atraumatic. No pharyngeal erythema. No thyromegaly. CARDIOVASCULAR: S1 and S2 present. No murmurs, rubs, or gallops. PULMONARY: Chest is clear to auscultation, no wheezing , no crackles. -ABDOMEN: Soft, nontender, nondistended, normoactive bowel sounds. No palpable organomegaly. Peritoneal erythema, improving MUSCULOSKELETAL: No joint swelling or deformity. EXTREMITIES: No cyanosis, clubbing, or pedal edema. NEUROLOGICAL: Gross neurological examination did not reveal any focal deficits. SKIN: No rashes. no petechiae. - Labs CBC & Chem 7: 07/28/24 05:49 07/28/24 05:49 Labs: Abnormal Lab Results - Last 24 Hours (Table) 07/28/24 07/28/24 Range/Units 05:49 05:49 WBC 36.3 H (3.8-10.6) k/uL RBC 3.82 L (4.30-5.90) m/uL Hgb 10.2 L (13.0-17.5) gm/dL Hct 31.9 L (39.0-53.0) % RDW 16.4 H (11.5-15.5) % Chloride 111 H (98-107) mmol/L Carbon Dioxide 18 L (22-30) mmol/L BUN 27 H (9-20) mg/dL Creatinine 1.70 H (0.66-1.25) mg/dL Calcium 7.6 L (8.4-10.2) mg/dL Assessment and Plan Assessment: Acute left pyelonephritis status post obstructive ureteral calculus status post stent insertion on 07/27 Severe sepsis secondary to above with leukocytosis tachypnea tachycardia, dyspnea progressing to septic shock if patient needs pressors Dehydration Acute kidney injury on chronic kidney disease Pericardial effusion for which cardiothoracic surgery has been consulted Paroxysmal A-fib, on Coumadin History of prostate cancer Plan: Continue with broad-spectrum antibiotics with daptomycin and cefepime as per ID team Urology following closely and patient s/p stent placement Follow-up urine culture blood culture Continue warfarin and therapeutic INR of 2-3 Cardiothoracic surgery consult for pericardial effusion, pending echocardiogram Pulmonary/critical care team consult Infectious disease team consult Labs and medication were reviewed.. Continue same treatment. Continue with symptomatic treatment. Resume home medication. Monitor labs and vitals. DVT and GI prophylaxis. Further recommendations as per clinical course of the patient DVT prophylaxis: Warfarin GI Prophylaxis: Protonix PT/OT: Pending Prognosis is guarded
[2024-07-28] MEDS: POTASSIUM CHLORIDE ER 20 MEQ TAB.ER PO SCH (08:32)
[2024-07-28] MEDS: PANTOPRAZOLE 40 MG TABLET PO SCH (08:32)
[2024-07-28] MEDS: MAGNESIUM SULFATE-D5W PMX 1 GM in DEXTROSE/WATER 1 100ML.BAG IVPB ONE (08:38)
--- NOTE | 2024-07-28 08:58 | P.PN ---
Subjective Progress Note Date: 07/28/24 POD 1 from placement of a left ureteral stent for an obstructing 4 mm distal left ureteral stone and proximal pyonephrosis. the patient is in the icu and is stable U/O is good. He is awake and alert. Objective - Vital Signs Vital signs: Vital Signs Temp 98.0 F 07/28/24 00:00 Pulse 60 07/28/24 06:00 Resp 19 07/28/24 06:00 BP 115/49 07/28/24 06:00 Pulse Ox 95 07/28/24 06:00 FiO2 Intake & Output 07/27/24 07/27/24 07/28/24 06:59 18:59 06:59 Intake Total 5.777 0879.055 1205 Output Total 0 150 Balance 5.777 4138.499 4216 Weight 129.274 kg 129.274 kg 124.7 kg Intake: IV 600 1530 Cefepime 2 gm In Sodium 100 Chloride 0.9% 100 ml @ 25 mls/hr IVPB Q12H [facility] Rx# :[id number] Sodium Chloride 0.9% 1, 1430 000 ml @ 130 mls/hr IV . Q7H42M [facility] Rx#:[id number] Intake, IV Titration 5.777 455.953 Amount Norepinephrine 32 mg In 5.777 65.953 Sodium Chloride 0.9% 218 ml @ 0.03 MCG/KG/MIN 1. 818 mls/hr IV .Q24H [facility] Rx#:[id number] Sodium Chloride 0.9% 1, 390 000 ml @ 130 mls/hr IV . Q7H42M [facility] Rx#:[id number] Output: Urine 0 150 Estimated Blood Loss 0 Other: Voiding Method External Catheter External Catheter # Voids 1 1 # Bowel Movements 1 - Labs CBC & Chem 7: 07/28/24 05:49 07/28/24 05:49 Labs: Abnormal Lab Results - Last 24 Hours (Table) 07/28/24 Range/Units 05:49 WBC 36.3 H (3.8-10.6) k/uL RBC 3.82 L (4.30-5.90) m/uL Hgb 10.2 L (13.0-17.5) gm/dL Hct 31.9 L (39.0-53.0) % RDW 16.4 H (11.5-15.5) % Assessment and Plan Assessment: Impression: left ureteral stone, uti with sepsis. Infected decubiti Recommedations; The patients ct was reviewed. There may be one more tiny llp renal stone. In the future the stent and ureteral stone will have to be removed. An attempt to identify the llp stone will need to be made but due to the location this may be difficult to find. This has been discussed with the patient.
--- NOTE | 2024-07-28 10:11 | CA ---
Transthoracic Echo Report Name: Santosh Melton Age: 83 Gender: M : 1940 Exam Date: 07/27/2024 15:00 Exam Location: [facility] Ht (in): 72 Wt (lb): 285 Ordering Physician: Pedro Shepherd DO Attending/Referring Phys: [id number], Cora [employer] Kalie Maya RDCS Procedure CPT: Indications: pericardial effusion Cardiac Hx: Technical Quality: Fair Contrast 1: Total Dose (mL): Contrast 2: Total Dose (mL): MEASUREMENTS (Male / Female) Normal Values 2D ECHO LV Diastolic Diameter PLAX 3.5 cm 4.2 - 5.9 / 3.9 - 5.3 cm LV Systolic Diameter PLAX 2.4 cm IVS Diastolic Thickness 1.4 cm 0.6 - 1.0 / 0.6 - 0.9 cm LVPW Diastolic Thickness 1.4 cm 0.6 - 1.0 / 0.6 - 0.9 cm LV Relative Wall Thickness 0.8 FINDINGS Left Ventricle Left ventricular ejection fraction is estimated at 55-60 %. Moderately increased septal wall thickness. No obvious regional wall motion abnormalities. Right Ventricle Right Atrium Left Atrium Mitral Valve Aortic Valve Tricuspid Valve Pulmonic Valve Pericardium Small circumferencial pericardial effusion. Moderate left posterolateral pericardial effusion. Aorta CONCLUSIONS Limited echo LVEF 55% Moderate LVH Severe biatrial dilatation. PPM wire noticed in RA and RV No obvious regional wall motion abnormality Small circumferential pericardial effusion with moderate left posterolateral pericardial effusion. No significant signs of tamponade physiology. When compared to prior echo from May 2024, pericardial effusion appears to be similar Previewed by: Dr Ab Mckeon (Electronically Signed) Final Date: 28 July 2024 10:10
--- NOTE | 2024-07-28 10:49 | P.PN ---
Subjective Progress Note Date: 07/28/24 This is a 83-year-old male patient was being seen in recovery. The patient presented to the hospital with altered mentation and fever. The patient is known to have multiple medical problems and comorbidities. He has had previous episodes of urine tract infection and urinary sepsis and nephrolithiasis and the patient has a complicated history of left distal ureteral calculus approximately a month ago with a complicated urine tract infection with Enterobacter and at that time the patient was seen by Dr. Asher who performed a ureteroscopy and removal of a ureteral calculus and the patient was treated with antibiotics and he was discharged home. During this current admission, the patient was found to be septic with a white cell count of 38 and he also had an acute kidney injury with a creatinine of 1.6 which is higher compared to his baseline. His lactic acid level was at 4.3. UA was abnormal consistent with UTI with more than 192 white cells and 20 RBCs. Urine cultures and blood cultures were sent. CAT scan of the abdomen was also done that showed evidence of a obstructive distal left ureteral stone with moderate degree of left-sided hydronephrosis and hydroureter consistent with urinary obstruction. Based on that, the patient was taken to the operating room by urology and the patient underwent a left ureteral stent insertion and cystoscopy. Postop, the patient was seen in recovery. The patient was started on pressors and he was receiving norepinephrine at 0.05 mcg/kg/min. He is also on normal saline at rate of 125 cc an hour. He is on oxygen at 2 L/min nasal cannula. His cardiac rhythm is paced. The patient is known to have also moderate pericardial effusion that was also seen on the CAT scan of the abdomen and the pericardial effusion based on the CAT scan images seems to be stable and the patient does not have any tamponade physiology. This is also confirmed on the previous echocardiogram. The patient is also known to have hypertension hyperlipidemia and paroxysmal atrial fibrillation maintained on warfarin on outpatient basis. He is known to have prostate cancer that was treated with radiation therapy and he has sick sinus syndrome and has a perma nent pacemaker in place. He has diastolic heart failure with moderate aortic regurgitation and moderate mitral valve regurgitation and previous history of C. difficile colitis back in May 2024. 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 Quit smoking approximately 30 to 40 years ago. Based on previous urinary cultures, the patient had growth with Pseudomonas aeruginosa and VRE based on the urine cultures were obtained on 07/08/2024. 07/28/2024, the patient is not having any specific complaints. No abdominal pain. No altered mentation. Hemodynamically stable and the patient has been taken off pressors. He remains on a combination of cefepime and daptomycin and the patient is also on normal saline at 125 cc an hour. Cultures are still pending for now. The patient had a complicated urine tract infection with sepsis and ob structive uropathy and the patient is status post double-J stent insertion for a left ureteral stent. The urine culture is showing gram-negative bacillus. The white cell count today is at 36 with a hemoglobin 10.2 and a platelet count of 282. BUN is 27 with a creatinine of 1.7 and sodium levels at 138. Urology is on the case. No focal neurological deficits for now. The patient's INR from yesterday was at 2.1. Repeat PT/INR is pending from today. Urine output is adequate. Awake and alert. Repeat echocardiogram was done on 07/27/2023 and the patient has normal LV function with an EF of around 55%, moderate LVH, small circumferential pericardial effusion with moderate left posterior lateral pericardial effusion without any signs of tamponade Objective - Vital Signs Vital signs: Vital Signs Temp 98.0 F 07/28/24 00:00 Pulse 60 07/28/24 07:00 Resp 17 07/28/24 07:00 BP 101/48 07/28/24 07:00 Pulse Ox 96 07/28/24 07:00 FiO2 Intake & Output 07/27/24 07/28/24 07/28/24 18:59 06:59 18:59 Intake Total 2360.417 6206 130 Output Total 0 150 100 Balance 0530.556 2698 30 Weight 129.274 kg 124.7 kg Intake: IV 600 1530 130 Cefepime 2 gm In Sodium 100 Chloride 0.9% 100 ml @ 25 mls/hr IVPB Q12H [facility] Rx# :[id number] Sodium Chloride 0.9% 1, 1430 130 000 ml @ 130 mls/hr IV . Q7H42M [facility] Rx#:[id number] Intake, IV Titration 455.953 Amount Norepinephrine 32 mg In 65.953 Sodium Chloride 0.9% 218 ml @ 0.03 MCG/KG/MIN 1. 818 mls/hr IV .Q24H [facility] Rx#:[id number] Sodium Chloride 0.9% 1, 390 000 ml @ 130 mls/hr IV . Q7H42M [facility] Rx#:[id number] Output: Urine 0 150 100 Estimated Blood Loss 0 Other: Voiding Method External Catheter External Catheter # Voids 1 1 # Bowel Movements 1 - Exam GENERAL EXAM: Alert, 83-year-old male patient, on room air, in no apparent distress. The patient is currently on 2 L of oxygen by nasal cannula. HEAD: Normocephalic. EYES: Normal reaction of pupils, equal size. NOSE: Clear with pink turbinates. THROAT: No erythema or exudates. NECK: No masses, no JVD. CHEST: No chest wall deformity. LUNGS: Equal air entry with no crackles, wheeze, rhonchi or dullness. CVS: S1 and S2 normal with no audible murmur, regular rhythm. The cardiac rhythm is paced at this point in time, V pacing ABDOMEN: No hepatosplenomegaly, normal bowel sounds, no guarding or rigidity. SPINE: No scoliosis or deformity SKIN: No rashes CENTRAL NERVOUS SYSTEM: Altered mentation, neurologic exam is nonfocal and the patient is moving all 4 extremities. EXTREMITIES: There is no peripheral edema. No clubbing, no cyanosis. Peripheral pulses are intact. - Labs CBC & Chem 7: 07/28/24 05:49 07/28/24 05:49 Labs: Abnormal Lab Results - Last 24 Hours (Table) 07/28/24 07/28/24 Range/Units 05:49 05:49 WBC 36.3 H (3.8-10.6) k/uL RBC 3.82 L (4.30-5.90) m/uL Hgb 10.2 L (13.0-17.5) gm/dL Hct 31.9 L (39.0-53.0) % RDW 16.4 H (11.5-15.5) % Chloride 111 H (98-107) mmol/L Carbon Dioxide 18 L (22-30) mmol/L BUN 27 H (9-20) mg/dL Creatinine 1.70 H (0.66-1.25) mg/dL Calcium 7.6 L (8.4-10.2) mg/dL Assessment and Plan Plan: Acute sepsis with secondary hypotension secondary to a complicated urinary tract infection. Patient is currently off pressors and the patient has been resuscitated IV fluids. Urine culture is positive for gram-negative bacillus. Left renal pyelonephritis secondary to obstructive uropathy related to a left ureteral stone and secondary hydronephrosis, status post double-J stent insertion and the patient is currently on IV ABX Left hydronephrosis, secondary to left renal/distal ureteral calculus and the patient is status post cystoscopy and double-J tube insertion and the patient is currently postop day #1 Hypotension secondary to above, currently off norepinephrine Acute leukocytosis History of recurrent urinary tract infections, currently has a Aguilar catheter in place. prostate cancer with previous radiation therapy and TURP Diverticulosis without acute diverticulitis Acute lactic acidosis Pericardial effusion, small to moderate-sized previous echocardiogram from 05/30/2024 showed preserved LV function with an ejection fraction of 55 to 60% along with severe RV dilatation and the patient is known to have a mild pericardial effusion without any signs of tamponade based on previous echocardiogram. Repeat echocardiogram shows moderate-sized pericardial effusion without any signs of tamponade on 07/27/2024. History of present C. difficile colitis, currently inactive and stable Paroxysmal atrial fibrillation anticoagulated with warfarin , current rhythm is paced Permanent pacemaker History of hypertension History of hyperlipidemia History of renal stones with previous lithotripsy Obesity, with a BMI of 38.7 kg/m Stage 2 coccyx and hip wounds Plan Continue IV fluids and the patient is on normal saline at rate of 75 cc an hour Urine cultures is positive for gram-negative bacillus Blood cultures still pending Broad-spectrum antibiotic coverage and the choice will be a combination of cefepime and daptomycin based on previous history of VRE in his urine along with gram-negative urine tract infections Continue anticoagulation with warfarin, PT/INR is therapeutic for now, will check PT/INR and resume anticoagulation accordingly Flomax IV Protonix Monitor the white cell count and renal function, still both elevated Monitor mental status improved Repeat echo was noted Patient can be transferred out of the intensive care unit to a medical surgical floor with telemetry monitoring.
[2024-07-28] MEDS: CHOLESTYRAMINE (WITH SUGAR) 4 GM PACKET PO SCH (13:25)
--- NOTE | 2024-07-28 15:12 | P.PN ---
Subjective Progress Note Date: 07/28/24 Principal diagnosis: Reason for follow-up is sepsis UTI Patient is a 83-year-old male with a past medical history significant for UTI kidney stones history of recurrent C. difficile colitis patient has been brought into the hospital for evaluation of mental status changes also have a left flank pain did have fever CT abdominal pelvis with evidence of moderate left-sided hydronephrosis requiring cystoscopy and ureteral stent placement. On today's evaluation that is 07/28/2023, Patient is afebrile this morning patient denies having any chest pain shortness of breath or cough, the patient is currently on 2 L current oxygen, patient still complains of left-sided ab dominal pain no nausea vomiting having diarrhea. Patient white count is 36.3 urine is growing gram-negative Objective - Vital Signs Vital signs: Vital Signs Temp 98.1 F 07/28/24 08:00 Pulse 60 07/28/24 09:00 Resp 20 07/28/24 09:00 BP 105/45 07/28/24 09:00 Pulse Ox 97 07/28/24 09:00 FiO2 Intake & Output 07/27/24 07/28/24 07/28/24 18:59 06:59 18:59 Intake Total 8366.571 5174 685 Output Total 0 150 200 Balance 3297.120 5372 485 Weight 129.274 kg 124.7 kg Intake: IV 600 1530 485 Cefepime 2 gm In Sodium 100 Chloride 0.9% 100 ml @ 25 mls/hr IVPB Q12H [facility] Rx# :[id number] Sodium Chloride 0.9% 1, 1430 485 000 ml @ 75 mls/hr IV . [id number] [facility] Rx#:[id number] Intake, IV Titration 455.953 Amount Norepinephrine 32 mg In 65.953 Sodium Chloride 0.9% 218 ml @ 0.03 MCG/KG/MIN 1. 818 mls/hr IV .Q24H [facility] Rx#:[id number] Sodium Chloride 0.9% 1, 390 000 ml @ 75 mls/hr IV . [id number] [facility] Rx#:[id number] Oral 200 Output: Urine 0 150 200 Estimated Blood Loss 0 Other: Voiding Method External Catheter External Catheter External Catheter # Voids 1 1 # Bowel Movements 1 1 - Exam GENERAL DESCRIPTION: An elderly male lying in bed in no distress RESPIRATORY SYSTEM: Unlabored breathing , decreased breath sounds at bases HEART: S1 S2 regular rate and rhythm , ABDOMEN: Soft , no tenderness EXTREMITIES: No edema feet - Labs CBC & Chem 7: 07/28/24 05:49 07/28/24 05:49 Labs: Abnormal Lab Results - Last 24 Hours (Table) 07/28/24 07/28/24 Range/Units 05:49 05:49 WBC 36.3 H (3.8-10.6) k/uL RBC 3.82 L (4.30-5.90) m/uL Hgb 10.2 L (13.0-17.5) gm/dL Hct 31.9 L (39.0-53.0) % RDW 16.4 H (11.5-15.5) % Chloride 111 H (98-107) mmol/L Carbon Dioxide 18 L (22-30) mmol/L BUN 27 H (9-20) mg/dL Creatinine 1.70 H (0.66-1.25) mg/dL Calcium 7.6 L (8.4-10.2) mg/dL Microbiology - Last 24 Hours (Table) 07/27/24 08:30 Urine Culture - Preliminary Urine,Ureter Gram Neg Bacilli 07/27/24 03:40 Urine Culture - Preliminary Urine,Voided Gram Neg Bacilli Assessment and Plan (1) Acute pyelonephritis Current Visit: Yes Status: Acute Code(s): N10 - ACUTE PYELONEPHRITIS SNOMED Code(s): 25670925 (2) Sepsis Current Visit: Yes Status: Acute Code(s): A41.9 - SEPSIS, UNSPECIFIED ORGANISM SNOMED Code(s): 97770679 (3) Leukocytosis Current Visit: No Status: Acute Code(s): D72.829 - ELEVATED WHITE BLOOD CELL COUNT, UNSPECIFIED SNOMED Code(s): 733805236 Plan: 1patient presented to hospital with sepsis in this patient with fever elevated white count source is complicated UTI as the patient did have a left-sided ur eteral stone requiring cystoscopy and ureteral stent placement last urine culture positive for VRE and Pseudomonas aeruginosa that was on 07/08/2024 2patient with renal insufficiency and high risk of nephrotoxicity from vancomycin. 3local culture not growing gram-negative bacilli we will discontinue daptomycin and continue with cefepime pending finalization of his culture 4patient with diarrhea and did have a history of C. difficile colitis we will check a stool for C. difficile and treat if positive Dictation was produced using [employer] dictation software. please excuse any grammatical, word or spelling errors. Time with Patient: Less than 30
[2024-07-28] MEDS: TAMSULOSIN 0.4 MG CAP.ER.24H PO SCH (18:32)
[2024-07-28] MEDS: HYDROcodone/APAP 5-325MG 1 EACH TAB PO STA (22:11)
[2024-07-28] MEDS: NYSTATIN 100,000 UNIT/GM POWD 15 GM TOPICAL SCH (22:12)
[2024-07-29 06:28] LABS: Anisocytosis Slight; HCT 32.2 % (39.0-53.0); HGB 10.4 gm/dL (13.0-17.5); Hypochromasia Moderate; MCH 27.5 pg (25.0-35.0); MCHC 32.3 g/dL (31.0-37.0); MCV 84.9 fL (80.0-100.0); Platelet Count 256 k/uL (150-450); RBC 3.79 m/uL (4.30-5.90); RDW 16.3 % (11.5-15.5); WBC 22.7 k/uL (3.8-10.6)
[2024-07-29 06:52] LABS: African American GFR (CKD) 54 (>60 ml/min/1.73 sqM); Anion Gap 8 mmol/L; Blood Urea Nitrogen 25 mg/dL (9-20); Calcium 7.9 mg/dL (8.4-10.2); Carbon Dioxide 20 mmol/L (22-30); Chloride 112 mmol/L (98-107); Glucose 89 mg/dL (74-99); Magnesium 2.1 mg/dL (1.6-2.3); Non-African American GFR(CKD) 47 (>60 ml/min/1.73 sqM); Potassium 3.9 mmol/L (3.5-5.1); Sodium 140 mmol/L (137-145)
--- NOTE | 2024-07-29 08:37 | P.PN ---
Subjective 83 years old female with past medical history of multiple medical problems as below Presents initially with generalized weakness, he could not get up from sitting position and he felt very weak Other than that he denies any specific symptoms However on exam he has significant suprapubic tenderness. Patient denies chest pain or dyspnea, no GI symptoms, no neurological symptoms specifically no headache weakness numbness Patient was suspected to have UTI but no much of symptoms but on exam he has suprapubic pain and tenderness. Dyspnea is quite rate. Patient states that he has been having incontinence of urine since last summer. On admission he looks septic, he had fever, hypotension tachypnea and tachycardia. Workup showed CT of the abdomen and pelvis with moderate obstructive left ureteral stone. Other incidental findings of pericardial effusion Other labs showing significant leukocytosis of 38,000, creatinine above baseline 1.6 with baseline 1.1-1.3 Patient INR is therapeutic at 2.1 while he is on Coumadin Has elevated lactic acid 4.3, bilirubin 0.5 Chest x-ray read as left pleural effusion with atelectasis, less likely felt the patient has pneumonia. Patient denies any respiratory symptoms EKG showing ventricular paced rhythm Echocardiogram was pending Patient was started on antibiotics with daptomycin and cefepime Also patient was taken emergently to the operation room with stent placed in the left uterus I saw the patient in the postop exam unit he was doing well fully awake and oriented does not look in distress with no significant pain. However once he got to the ICU started on small dose of pressors with Levophed 0.03 07/28 Patient is awake today He is seen in the ICU lying in bed looks comfortable feels mild general weakness No overt urinary symptoms no suprapubic pain or tenderness, he has external urine catheter with good urine output and yellow in color His perineal erythema is also improving He had 2 episodes of diarrhea last night He is on normal saline at 120 mL/h Continued on broad-spectrum antibiotics with daptomycin and cefepime Labs showing leukocytosis almost the same 36.3, creatinine around the same 1.7. Resume warfarin once cleared by surgery team 07/29 Patient continued to feel generally weak No other specific complaint Right groin catheter was removed Perineal erythema is improving but not completely resolved and there might be some elements of fungal infection and nystatin was started pain controlled with pain medication Aguilar catheter in place Resumed warfarin today for history of A-fib. Leukocytosis improving down to 22,000, creatinine down to 1.39. Patient remains on antibiotics daptomycin and cefepime Urine cultures growing pulmonary gram-negative bacilli In my opinion patient clinically stable will be transferred out of the ICU once available Objective - Vital Signs Vital signs: Vital Signs Temp 97.6 F 07/29/24 02:00 Pulse 60 07/29/24 02:00 Resp 18 07/29/24 02:00 BP 116/57 07/29/24 02:00 Pulse Ox 97 07/29/24 02:00 FiO2 Intake & Output 07/28/24 07/29/24 07/29/24 18:59 06:59 18:59 Intake Total 1610 1000 Output Total 450 650 Balance 1160 350 Weight 124 kg Intake: IV 1010 1000 Cefepime 2 gm In Sodium 100 Chloride 0.9% 100 ml @ 25 mls/hr IVPB Q12H [facility] Rx# :[id number] Sodium Chloride 0.9% 1, 1010 900 000 ml @ 75 mls/hr IV . [id number] [facility] Rx#:[id number] Oral 600 Output: Urine 450 650 Other: Voiding Method External Catheter External Catheter # Bowel Movements 2 1 - Exam -GENERAL: The patient is alert and oriented x3, not in any acute distress. Obese HEENT: Pupils are round and equally reacting to light. EOMI. No scleral icterus. No conjunctival pallor. Normocephalic, atraumatic. No pharyngeal erythema. No thyromegaly. CARDIOVASCULAR: S1 and S2 present. No murmurs, rubs, or gallops. PULMONARY: Chest is clear to auscultation, no wheezing , no crackles. -ABDOMEN: Soft, nontender, nondistended, normoactive bowel sounds. No palpable organomegaly. Peritoneal erythema, improving MUSCULOSKELETAL: No joint swelling or deformity. EXTREMITIES: No cyanosis, clubbing, or pedal edema. NEUROLOGICAL: Gross neurological examination did not reveal any focal deficits. SKIN: No rashes. no petechiae. - Labs CBC & Chem 7: 07/29/24 05:30 07/29/24 05:30 Labs: Abnormal Lab Results - Last 24 Hours (Table) 07/29/24 07/29/24 Range/Units 05:30 05:30 WBC 22.7 H (3.8-10.6) k/uL RBC 3.79 L (4.30-5.90) m/uL Hgb 10.4 L (13.0-17.5) gm/dL Hct 32.2 L (39.0-53.0) % RDW 16.3 H (11.5-15.5) % Chloride 112 H (98-107) mmol/L Carbon Dioxide 20 L (22-30) mmol/L BUN 25 H (9-20) mg/dL Creatinine 1.39 H (0.66-1.25) mg/dL Calcium 7.9 L (8.4-10.2) mg/dL Microbiology - Last 24 Hours (Table) 07/27/24 02:20 Blood Culture - Preliminary Blood 07/27/24 08:30 Urine Culture - Preliminary Urine,Ureter Gram Neg Bacilli 07/27/24 03:40 Urine Culture - Preliminary Urine,Voided Gram Neg Bacilli Assessment and Plan Assessment: Acute left pyelonephritis status post obstructive ureteral calculus status post stent insertion on 07/27 Severe sepsis secondary to above with leukocytosis tachypnea tachycardia, im proving Acute kidney injury on chronic kidney disease Pericardial effusion for which cardiothoracic surgery has been consulted Paroxysmal A-fib, on Coumadin History of prostate cancer Plan: Continue with broad-spectrum antibiotics with daptomycin and cefepime as per ID team Urology following closely and patient s/p stent placement Follow-up urine culture blood culture Continue warfarin and therapeutic INR of 2-3 Cardiothoracic surgery consult for pericardial effusion, pending echocardiogram Pulmonary/critical care team consult Infectious disease team consult Labs and medication were reviewed.. Continue same treatment. Continue with symptomatic treatment. Resume home medication. Monitor labs and vitals. DVT and GI prophylaxis. Further recommendations as per clinical course of the patient DVT prophylaxis: Warfarin GI Prophylaxis: Protonix PT/OT: Pending Prognosis is guarded
[2024-07-29 09:34] LABS: INR 1.7 (<1.2); Prothrombin Time 17.2 sec (10.0-12.5)
--- NOTE | 2024-07-29 10:32 | P.PN ---
Subjective Progress Note Date: 07/29/24 The patient is in the hospital with sepsis probably urinary in origin. He also has decubiti. He had a stent placed in his left ureter for an obstructing stone with secondary pyelonephrosis. He is recuperating nicely. Objective - Vital Signs Vital signs: Vital Signs Temp 97.5 F L 07/29/24 08:43 Pulse 61 07/29/24 08:43 Resp 19 07/29/24 08:43 BP 153/71 07/29/24 08:43 Pulse Ox 98 07/29/24 08:43 FiO2 Intake & Output 07/28/24 07/29/24 07/29/24 18:59 06:59 18:59 Intake Total 1610 1000 Output Total 450 650 Balance 1160 350 Weight 124 kg Intake: IV 1010 1000 Cefepime 2 gm In Sodium 100 Chloride 0.9% 100 ml @ 25 mls/hr IVPB Q12H [facility] Rx# :[id number] Sodium Chloride 0.9% 1, 1010 900 000 ml @ 75 mls/hr IV . [id number] [facility] Rx#:[id number] Oral 600 Output: Urine 450 650 Other: Voiding Method External Catheter External Catheter # Bowel Movements 2 1 - Labs CBC & Chem 7: 07/29/24 05:30 07/29/24 05:30 Labs: Abnormal Lab Results - Last 24 Hours (Table) 07/29/24 07/29/24 07/29/24 Range/Units 05:30 05:30 08:44 WBC 22.7 H (3.8-10.6) k/uL RBC 3.79 L (4.30-5.90) m/uL Hgb 10.4 L (13.0-17.5) gm/dL Hct 32.2 L (39.0-53.0) % RDW 16.3 H (11.5-15.5) % PT 17.2 H (10.0-12.5) sec INR 1.7 H (<1.2) Chloride 112 H (98-107) mmol/L Carbon Dioxide 20 L (22-30) mmol/L BUN 25 H (9-20) mg/dL Creatinine 1.39 H (0.66-1.25) mg/dL Calcium 7.9 L (8.4-10.2) mg/dL Microbiology - Last 24 Hours (Table) 07/27/24 08:30 Urine Culture - Preliminary Urine,Ureter Proteus mirabilis Enterococcus faecium 07/27/24 02:20 Blood Culture - Preliminary Blood 07/27/24 03:40 Urine Culture - Preliminary Urine,Voided Gram Neg Bacilli Assessment and Plan Assessment: Impression: Left ureteral calculus with obstruction and secondary pyelonephrosis. Recommendations: The patient will eventually need left ureteroscopy and laser lithotripsy. Obviously this will wait until his sepsis has cleared. Probably in another week or 2 before we would do this.
--- NOTE | 2024-07-29 10:32 | P.PN ---
Subjective Progress Note Date: 07/29/24 This is a 83-year-old male patient was being seen in recovery. The patient presented to the hospital with altered mentation and fever. The patient is known to have multiple medical problems and comorbidities. He has had previous episodes of urine tract infection and urinary sepsis and nephrolithiasis and the patient has a complicated history of left distal ureteral calculus approximately a month ago with a complicated urine tract infection with Enterobacter and at that time the patient was seen by Dr. Asher who performed a ureteroscopy and removal of a ureteral calculus and the patient was treated with antibiotics and he was discharged home. During this current admission, the patient was found to be septic with a white cell count of 38 and he also had an acute kidney injury with a creatinine of 1.6 which is higher compared to his baseline. His lactic acid level was at 4.3. UA was abnormal consistent with UTI with more than 192 white cells and 20 RBCs. Urine cultures and blood cultures were sent. CAT scan of the abdomen was also done that showed evidence of a obstructive distal left ureteral stone with moderate degree of left-sided hydronephrosis and hydroureter consistent with urinary obstruction. Based on that, the patient was taken to the operating room by urology and the patient underwent a left ureteral stent insertion and cystoscopy. Postop, the patient was seen in recovery. The patient was started on pressors and he was receiving norepinephrine at 0.05 mcg/kg/min. He is also on normal saline at rate of 125 cc an hour. He is on oxygen at 2 L/min nasal cannula. His cardiac rhythm is paced. The patient is known to have also moderate pericardial effusion that was also seen on the CAT scan of the abdomen and the pericardial effusion based on the CAT scan images seems to be stable and the patient does not have any tamponade physiology. This is also confirmed on the previous echocardiogram. The patient is also known to have hypertension hyperlipidemia and paroxysmal atrial fibrillation maintained on warfarin on outpatient basis. He is known to have prostate cancer that was treated with radiation therapy and he has sick sinus syndrome and has a perma nent pacemaker in place. He has diastolic heart failure with moderate aortic regurgitation and moderate mitral valve regurgitation and previous history of C. difficile colitis back in May 2024. 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 Quit smoking approximately 30 to 40 years ago. Based on previous urinary cultures, the patient had growth with Pseudomonas aeruginosa and VRE based on the urine cultures were obtained on 07/08/2024. 07/28/2024, the patient is not having any specific complaints. No abdominal pain. No altered mentation. Hemodynamically stable and the patient has been taken off pressors. He remains on a combination of cefepime and daptomycin and the patient is also on normal saline at 125 cc an hour. Cultures are still pending for now. The patient had a complicated urine tract infection with sepsis and ob structive uropathy and the patient is status post double-J stent insertion for a left ureteral stent. The urine culture is showing gram-negative bacillus. The white cell count today is at 36 with a hemoglobin 10.2 and a platelet count of 282. BUN is 27 with a creatinine of 1.7 and sodium levels at 138. Urology is on the case. No focal neurological deficits for now. The patient's INR from yesterday was at 2.1. Repeat PT/INR is pending from today. Urine output is adequate. Awake and alert. Repeat echocardiogram was done on 07/27/2023 and the patient has normal LV function with an EF of around 55%, moderate LVH, small circumferential pericardial effusion with moderate left posterior lateral pericardial effusion without any signs of tamponade On 07/29/2024, the patient is being seen for a follow-up. Doing well. No specific complaints. Hemodynamically stable. Afebrile. No nausea vomiting or emesis. White cell count down to 22 with a hemoglobin 10.4. Creatinine is also improving is down to 1.39 with a BUN of 25 and a sodium levels at 140. INR is at 1.7. Urine culture is positive for Proteus Mirabella's and Enterococcus faecium. Antibiotic coverage for now is with IV cefepime. The patient is post double-J stent insertion for a complicated urine tract infection with sepsis. No other significant events overnight. Awake and alert and communicating. He is feeling generalized weakness. No other specific complaints. Aguilar catheter remains in place. The patient will be started back on anticoagulation with warfarin as the patient's INR subtherapeutic and is being given for chronic atrial fibrillation. Objective - Vital Signs Vital signs: Vital Signs Temp 97.6 F 07/29/24 02:00 Pulse 60 07/29/24 02:00 Resp 18 07/29/24 02:00 BP 116/57 07/29/24 02:00 Pulse Ox 97 07/29/24 02:00 FiO2 Intake & Output 07/28/24 07/29/24 07/29/24 18:59 06:59 18:59 Intake Total 1610 1000 Output Total 450 650 Balance 1160 350 Weight 124 kg Intake: IV 1010 1000 Cefepime 2 gm In Sodium 100 Chloride 0.9% 100 ml @ 25 mls/hr IVPB Q12H [facility] Rx# :[id number] Sodium Chloride 0.9% 1, 1010 900 000 ml @ 75 mls/hr IV . [id number] [facility] Rx#:[id number] Oral 600 Output: Urine 450 650 Other: Voiding Method External Catheter External Catheter # Bowel Movements 2 1 - Exam GENERAL EXAM: Alert, 83-year-old male patient, on room air, in no apparent distress. The patient is currently on 2 L of oxygen by nasal cannula. HEAD: Normocephalic. EYES: Normal reaction of pupils, equal size. NOSE: Clear with pink turbinates. THROAT: No erythema or exudates. NECK: No masses, no JVD. CHEST: No chest wall deformity. LUNGS: Equal air entry with no crackles, wheeze, rhonchi or dullness. CVS: S1 and S2 normal with no audible murmur, regular rhythm. The cardiac rhy thm is paced at this point in time, V pacing ABDOMEN: No hepatosplenomegaly, normal bowel sounds, no guarding or rigidity. SPINE: No scoliosis or deformity SKIN: No rashes CENTRAL NERVOUS SYSTEM: Altered mentation, neurologic exam is nonfocal and the patient is moving all 4 extremities. EXTREMITIES: There is no peripheral edema. No clubbing, no cyanosis. Peripheral pulses are intact. - Labs CBC & Chem 7: 07/29/24 05:30 07/29/24 05:30 Labs: Abnormal Lab Results - Last 24 Hours (Table) 07/29/24 07/29/24 Range/Units 05:30 05:30 WBC 22.7 H (3.8-10.6) k/uL RBC 3.79 L (4.30-5.90) m/uL Hgb 10.4 L (13.0-17.5) gm/dL Hct 32.2 L (39.0-53.0) % RDW 16.3 H (11.5-15.5) % Chloride 112 H (98-107) mmol/L Carbon Dioxide 20 L (22-30) mmol/L BUN 25 H (9-20) mg/dL Creatinine 1.39 H (0.66-1.25) mg/dL Calcium 7.9 L (8.4-10.2) mg/dL Microbiology - Last 24 Hours (Table) 07/27/24 02:20 Blood Culture - Preliminary Blood 07/27/24 08:30 Urine Culture - Preliminary Urine,Ureter Gram Neg Bacilli 07/27/24 03:40 Urine Culture - Preliminary Urine,Voided Gram Neg Bacilli Assessment and Plan Plan: Acute sepsis with secondary hypotension secondary to a complicated urinary tract infection. Hemodynamically stable off pressors UTI with Proteus mirabilis and Enterococcus faecium, currently on IV cefepime Left renal pyelonephritis secondary to obstructive uropathy related to a left ureteral stone and secondary hydronephrosis, status post double-J stent insertion and the patient is currently on IV ABX Left hydronephrosis, secondary to left renal/distal ureteral calculus and the patient is status post cystoscopy and double-J tube insertion and the patient is currently postop day # 2 Acute kidney injury, creatinine is improving Hypotension secondary to above, currently off norepinephrine Acute leukocytosis, improving History of recurrent urinary tract infections, currently has a Aguilar catheter in place. prostate cancer with previous radiation therapy and TURP Diverticulosis without acute diverticulitis Acute lactic acidosis, improved Pericardial effusion, small to moderate-sized previous echocardiogram from 05/30/2024 showed preserved LV function with an ejection fraction of 55 to 60% along with severe RV dilatation and the patient is known to have a mild pericardial effusion without any signs of tamponade based on previous echocardiogram. Repeat echocardiogram shows moderate-sized pericardial effusion without any signs of tamponade on 07/27/2024. History of present C. difficile colitis, currently inactive and stable Paroxysmal atrial fibrillation anticoagulated with warfarin , current rhythm is paced Permanent pacemaker History of hypertension History of hyperlipidemia History of renal stones with previous lithotripsy Obesity, with a BMI of 38.7 kg/m Stage 2 coccyx and hip wounds Plan Continue IV fluids and the patient is on normal saline at rate of 75 cc an hour Cultures were noted and the patient remains on IV cefepime . Further antibiotic adjustments per ID. Urine cultures positive for Proteus and Enterococcus faecium Continue anticoagulation with warfarin, PT/INR is sub-therapeutic for now, and Coumadin will be offered with daily monitoring of the PT/INR Flomax IV Protonix White cell count is improving Creatinine is improving Monitor mental status improved Repeat echo was noted Patient can be transferred out of the intensive care unit to a medical surgical floor with telemetry monitoring.
[2024-07-29] MEDS: WARFARIN 5 MG TAB PO ONE (18:25)
[2024-07-29] MEDS: LACTOBACILLUS ACIDOPHILUS/PECT 1 EACH CAPSULE PO SCH (18:25)
[2024-07-30 04:10] LABS: INR 1.9 (<1.2); Prothrombin Time 19.1 sec (10.0-12.5)
[2024-07-30 09:07] LABS: HCT 30.8 % (39.6-50.0); HGB 9.5 g/dL (13.0-17.0); MCH 25.9 pg (27.0-32.0); MCHC 30.8 g/dL (32.0-37.0); MCV 83.9 FL (80.0-97.0); Mean Platelet Volume 9.9 FL (9.5-12.2); NRBC Per 100 WBC 0 X 10*3/uL (0.00-0.01); Platelet Count 283 X 10*3/uL (140-440); RBC 3.67 X 10*6/uL (4.40-5.60); RDW 17.6 % (11.5-14.5); WBC 10.89 X 10*3/uL (4.50-10.00)
[2024-07-30 09:30] LABS: BUN/Creat Ratio 15.17 Ratio (12.00-20.00); Blood Urea Nitrogen 18.2 mg/dL (9.0-27.0); Calcium 7.7 mg/dL (8.7-10.3); Carbon Dioxide 19.4 mmol/L (21.6-31.8); Chloride 112 mmol/L (96-109); Glucose 96 mg/dL (70-110); Potassium 3.9 mmol/L (3.5-5.5); Sodium 139 mmol/L (135-145)
--- NOTE | 2024-07-30 14:47 | P.PN ---
Subjective Progress Note Date: 07/29/24 Principal diagnosis: Reason for follow-up is sepsis UTI Patient is a 83-year-old male with a past medical history significant for UTI kidney stones history of recurrent C. difficile colitis patient has been brought into the hospital for evaluation of mental status changes also have a left flank pain did have fever CT abdominal pelvis with evidence of moderate left-sided hydronephrosis requiring cystoscopy and ureteral stent placement. On today's evaluation that is 07/29/2024,the patient denies any fever or any chills, patient is breathing comfortably on 2 L nasal cannula oxygen, the patient denies chest pain shortness of breath and no significant cough, patient still having of some left-sided abdominal pain, no nausea vomiting that he has slowed down Patient white count is down to 22.7, creatinine is 1.39 urine is growing Proteus and Enterococcus Objective - Vital Signs Vital signs: Vital Signs Temp 97.5 F L 07/29/24 08:43 Pulse 61 07/29/24 08:43 Resp 19 07/29/24 08:43 BP 153/71 07/29/24 08:43 Pulse Ox 98 07/29/24 08:43 FiO2 Intake & Output 07/28/24 07/29/24 07/29/24 18:59 06:59 18:59 Intake Total 1610 1000 Output Total 450 650 Balance 1160 350 Weight 124 kg Intake: IV 1010 1000 Cefepime 2 gm In Sodium 100 Chloride 0.9% 100 ml @ 25 mls/hr IVPB Q12H [facility] Rx# :[id number] Sodium Chloride 0.9% 1, 1010 900 000 ml @ 75 mls/hr IV . [id number] [facility] Rx#:[id number] Oral 600 Output: Urine 450 650 Other: Voiding Method External Catheter External Catheter # Bowel Movements 2 1 1 - Exam GENERAL DESCRIPTION: An elderly male lying in bed in no distress RESPIRATORY SYSTEM: Unlabored breathing , decreased breath sounds at bases HEART: S1 S2 regular rate and rhythm , ABDOMEN: Soft , no tenderness EXTREMITIES: No edema feet - Labs CBC & Chem 7: 07/30/24 03:21 07/30/24 03:21 Labs: Abnormal Lab Results - Last 24 Hours (Table) 07/29/24 07/29/24 07/29/24 Range/Units 05:30 05:30 08:44 WBC 22.7 H (3.8-10.6) k/uL RBC 3.79 L (4.30-5.90) m/uL Hgb 10.4 L (13.0-17.5) gm/dL Hct 32.2 L (39.0-53.0) % RDW 16.3 H (11.5-15.5) % PT 17.2 H (10.0-12.5) sec INR 1.7 H (<1.2) Chloride 112 H (98-107) mmol/L Carbon Dioxide 20 L (22-30) mmol/L BUN 25 H (9-20) mg/dL Creatinine 1.39 H (0.66-1.25) mg/dL Calcium 7.9 L (8.4-10.2) mg/dL Microbiology - Last 24 Hours (Table) 07/27/24 08:30 Urine Culture - Preliminary Urine,Ureter Proteus mirabilis Enterococcus faecium 07/27/24 02:20 Blood Culture - Preliminary Blood 07/27/24 03:40 Urine Culture - Preliminary Urine,Voided Gram Neg Bacilli Assessment and Plan (1) Acute pyelonephritis Current Visit: Yes Status: Acute Code(s): N10 - ACUTE PYELONEPHRITIS SNOMED Code(s): 66294696 (2) Sepsis Current Visit: Yes Status: Acute Code(s): A41.9 - SEPSIS, UNSPECIFIED ORGANISM SNOMED Code(s): 59745412 (3) Leukocytosis Current Visit: No Status: Acute Code(s): D72.829 - ELEVATED WHITE BLOOD CELL COUNT, UNSPECIFIED SNOMED Code(s): 542809872 Plan: 1patient presented to hospital with sepsis in this patient with fever elevated white count source is complicated UTI as the patient did have a left-sided ureteral stone requiring cystoscopy and ureteral stent placement last urine culture positive for VRE and Pseudomonas aeruginosa that was on 07/08/2024 2urine culture growing Proteus as well as Enterococcus faecium with sensitivities pending, patient cefepime switched to ceftriaxone on the basis of sensitivity will add daptomycin to cover for the Enterococcus patient while waiting for sensitivity finalize 3patient with diarrhea, stool for C. difficile has been negative continue with the [facility] for symptomatic relief probiotic and yogurt intake Dictation was produced using [employer] software. please excuse any grammatical, word or spelling errors. Time with Patient: Less than 30
--- NOTE | 2024-07-30 14:48 | P.PN ---
Subjective Progress Note Date: 07/30/24 Principal diagnosis: Reason for follow-up is sepsis UTI Patient is a 83-year-old male with a past medical history significant for UTI kidney stones history of recurrent C. difficile colitis patient has been brought into the hospital for evaluation of mental status changes also have a left flank pain did have fever CT abdominal pelvis with evidence of moderate left-sided hydronephrosis requiring cystoscopy and ureteral stent placement. On today's evaluation that is 07/30/2024,the patient remains to be afebrile, patient is on 2 L nasal cannula supplemental oxygen and denies any shortness of breath no chest pain or cough.Patient denies having any nausea or vomiting, left-sided abdominal pain is improved did have a small bowel movement reported by the nursing staff Patient white count is down to 10.89, creatinine is 1.2 blood culture negative Objective - Vital Signs Vital signs: Vital Signs Temp 97.8 F 07/30/24 08:00 Pulse 61 07/30/24 08:00 Resp 12 07/30/24 02:01 BP 136/67 07/30/24 08:00 Pulse Ox 98 07/30/24 09:56 FiO2 Intake & Output 07/29/24 07/30/24 07/30/24 18:59 06:59 18:59 Intake Total 540 240 Output Total 600 600 Balance -600 -60 240 Intake: Oral 540 240 Output: Urine 600 600 Other: Voiding Method External Catheter External Catheter # Bowel Movements 1 - Exam GENERAL DESCRIPTION: An elderly male lying in bed in no distress RESPIRATORY SYSTEM: Unlabored breathing , decreased breath sounds at bases HEART: S1 S2 regular rate and rhythm , ABDOMEN: Soft , no tenderness EXTREMITIES: No edema feet - Labs CBC & Chem 7: 07/30/24 03:21 07/30/24 03:21 Labs: Abnormal Lab Results - Last 24 Hours (Table) 07/30/24 07/30/24 07/30/24 Range/Units 03:21 03:21 03:21 WBC 10.89 H (4.50-10.00) X 10*3/uL RBC 3.67 L (4.40-5.60) X 10*6/uL Hgb 9.5 L (13.0-17.0) g/dL Hct 30.8 L (39.6-50.0) % MCH 25.9 L (27.0-32.0) pg MCHC 30.8 L (32.0-37.0) g/dL RDW 17.6 H (11.5-14.5) % PT 19.1 H (10.0-12.5) sec INR 1.9 H (<1.2) Chloride 112 H (96-109) mmol/L Carbon Dioxide 19.4 L (21.6-31.8) mmol/L Calcium 7.7 L (8.7-10.3) mg/dL Microbiology - Last 24 Hours (Table) 07/27/24 08:30 Urine Culture - Final Urine,Ureter Proteus mirabilis Enterococcus faecium VRE 07/27/24 03:40 Urine Culture - Final Urine,Voided Proteus mirabilis 07/27/24 02:20 Blood Culture - Preliminary Blood Assessment and Plan (1) Acute pyelonephritis Current Visit: Yes Status: Acute Code(s): N10 - ACUTE PYELONEPHRITIS SNOMED Code(s): 25713886 (2) Sepsis Current Visit: Yes Status: Acute Code(s): A41.9 - SEPSIS, UNSPECIFIED ORGANISM SNOMED Code(s): 08276425 (3) Leukocytosis Current Visit: No Status: Acute Code(s): D72.829 - ELEVATED WHITE BLOOD CELL COUNT, UNSPECIFIED SNOMED Code(s): 860475992 Plan: 1patient presented to hospital with sepsis in this patient with fever elevated white count source is complicated UTI as the patient did have a left-sided ureteral stone requiring cystoscopy and ureteral stent placement last urine culture positive for VRE and Pseudomonas aeruginosa that was on 07/08/2024 2urine culture growing Proteus as well as Enterococcus faecium has been finalized as VRE, 3patient with diarrhea, stool for C. difficile has been negative continue with the [facility] for symptomatic relief probiotic and yogurt intake 4patient white count has normalized is currently on daptomycin and Rocephin to continue while inpatient finishing therapy with oral Ceftin and Zyvox on discharge Dictation was produced using [employer] dictation software. please excuse any grammatical, word or spelling errors. Time with Patient: Less than 30
[2024-07-30] MEDS: WARFARIN 5 MG TAB PO ONE (17:44)
--- NOTE | 2024-07-30 17:58 | P.PN ---
Subjective Progress Note Date: 07/30/24 This is a 83-year-old male patient was being seen in recovery. The patient presented to the hospital with altered mentation and fever. The patient is known to have multiple medical problems and comorbidities. He has had previous episodes of urine tract infection and urinary sepsis and nephrolithiasis and the patient has a complicated history of left distal ureteral calculus approximately a month ago with a complicated urine tract infection with Enterobacter and at that time the patient was seen by Dr. Asher who performed a ureteroscopy and removal of a ureteral calculus and the patient was treated with antibiotics and he was discharged home. During this current admission, the patient was found to be septic with a white cell count of 38 and he also had an acute kidney injury with a creatinine of 1.6 which is higher compared to his baseline. His lactic acid level was at 4.3. UA was abnormal consistent with UTI with more than 192 white cells and 20 RBCs. Urine cultures and blood cultures were sent. CAT scan of the abdomen was also done that showed evidence of a obstructive distal left ureteral stone with moderate degree of left-sided hydronephrosis and hydroureter consistent with urinary obstruction. Based on that, the patient was taken to the operating room by urology and the patient underwent a left ureteral stent insertion and cystoscopy. Postop, the patient was seen in recovery. The patient was started on pressors and he was receiving norepinephrine at 0.05 mcg/kg/min. He is also on normal saline at rate of 125 cc an hour. He is on oxygen at 2 L/min nasal cannula. His cardiac rhythm is paced. The patient is known to have also moderate pericardial effusion that was also seen on the CAT scan of the abdomen and the pericardial effusion based on the CAT scan images seems to be stable and the patient does not have any tamponade physiology. This is also confirmed on the previous echocardiogram. The patient is also known to have hypertension hyperlipidemia and paroxysmal atrial fibrillation maintained on warfarin on outpatient basis. He is known to have prostate cancer that was treated with radiation therapy and he has sick sinus syndrome and has a perma nent pacemaker in place. He has diastolic heart failure with moderate aortic regurgitation and moderate mitral valve regurgitation and previous history of C. difficile colitis back in May 2024. 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 Quit smoking approximately 30 to 40 years ago. Based on previous urinary cultures, the patient had growth with Pseudomonas aeruginosa and VRE based on the urine cultures were obtained on 07/08/2024. 07/28/2024, the patient is not having any specific complaints. No abdominal pain. No altered mentation. Hemodynamically stable and the patient has been taken off pressors. He remains on a combination of cefepime and daptomycin and the patient is also on normal saline at 125 cc an hour. Cultures are still pending for now. The patient had a complicated urine tract infection with sepsis and ob structive uropathy and the patient is status post double-J stent insertion for a left ureteral stent. The urine culture is showing gram-negative bacillus. The white cell count today is at 36 with a hemoglobin 10.2 and a platelet count of 282. BUN is 27 with a creatinine of 1.7 and sodium levels at 138. Urology is on the case. No focal neurological deficits for now. The patient's INR from yesterday was at 2.1. Repeat PT/INR is pending from today. Urine output is adequate. Awake and alert. Repeat echocardiogram was done on 07/27/2023 and the patient has normal LV function with an EF of around 55%, moderate LVH, small circumferential pericardial effusion with moderate left posterior lateral pericardial effusion without any signs of tamponade On 07/29/2024, the patient is being seen for a follow-up. Doing well. No specific complaints. Hemodynamically stable. Afebrile. No nausea vomiting or emesis. White cell count down to 22 with a hemoglobin 10.4. Creatinine is also improving is down to 1.39 with a BUN of 25 and a sodium levels at 140. INR is at 1.7. Urine culture is positive for Proteus Mirabella's and Enterococcus faecium. Antibiotic coverage for now is with IV cefepime. The patient is post double-J stent insertion for a complicated urine tract infection with sepsis. No other significant events overnight. Awake and alert and communicating. He is feeling generalized weakness. No other specific complaints. Aguilar catheter remains in place. The patient will be started back on anticoagulation with warfarin as the patient's INR subtherapeutic and is being given for chronic atrial fibrillation. On 07/30/2024, the patient is being seen for a follow-up. Doing well and resting comfortably in bed. Remains on a combination of Rocephin and daptomycin as the patient had a combination of Proteus and VRE urine tract infection. The patient is status post double-J stent insertion for obstructive uropathy. White cell count is down to 10.8 with a hemoglobin 9.5 and a platelet count of 283. Sodium is at 139, bicarb is at 19 with a BUN of 18 and creatinine is down to 1.2. No respiratory distress. Hemodynamically stable. Currently on room air oxygen. Tolerating his diet. No nausea vomiting or abdominal pain. ID is on the case. The patient remains on broad-spectrum antibiotics. Objective - Vital Signs Vital signs: Vital Signs Temp 97.8 F 07/30/24 08:00 Pulse 61 07/30/24 08:00 Resp 12 07/30/24 02:01 BP 136/67 07/30/24 08:00 Pulse Ox 98 07/30/24 09:56 FiO2 Intake & Output 07/29/24 07/30/24 07/30/24 18:59 06:59 18:59 Intake Total 540 240 Output Total 600 600 Balance -600 -60 240 Intake: Oral 540 240 Output: Urine 600 600 Other: Voiding Method External Catheter External Catheter External Catheter # Bowel Movements 1 - Exam GENERAL EXAM: Alert, 83-year-old male patient, on room air, in no apparent distress. The patient is currently on 2 L of oxygen by nasal cannula. HEAD: Normocephalic. EYES: Normal reaction of pupils, equal size. NOSE: Clear with pink turbinates. THROAT: No erythema or exudates. NECK: No masses, no JVD. CHEST: No chest wall deformity. LUNGS: Equal air entry with no crackles, wheeze, rhonchi or dullness. CVS: S1 and S2 normal with no audible murmur, regular rhythm. The cardiac rhythm is paced at this point in time, V pacing ABDOMEN: No hepatosplenomegaly, normal bowel sounds, no guarding or rigidity. SPINE: No scoliosis or deformity SKIN: No rashes CENTRAL NERVOUS SYSTEM: Altered mentation, neurologic exam is nonfocal and the patient is moving all 4 extremities. EXTREMITIES: There is no peripheral edema. No clubbing, no cyanosis. Peripheral pulses are intact. - Labs CBC & Chem 7: 07/30/24 03:21 07/30/24 03:21 Labs: Abnormal Lab Results - Last 24 Hours (Table) 07/30/24 07/30/24 07/30/24 Range/Units 03:21 03:21 03:21 WBC 10.89 H (4.50-10.00) X 10*3/uL RBC 3.67 L (4.40-5.60) X 10*6/uL Hgb 9.5 L (13.0-17.0) g/dL Hct 30.8 L (39.6-50.0) % MCH 25.9 L (27.0-32.0) pg MCHC 30.8 L (32.0-37.0) g/dL RDW 17.6 H (11.5-14.5) % PT 19.1 H (10.0-12.5) sec INR 1.9 H (<1.2) Chloride 112 H (96-109) mmol/L Carbon Dioxide 19.4 L (21.6-31.8) mmol/L Calcium 7.7 L (8.7-10.3) mg/dL Microbiology - Last 24 Hours (Table) 07/27/24 08:30 Urine Culture - Final Urine,Ureter Proteus mirabilis Enterococcus faecium VRE 07/27/24 03:40 Urine Culture - Final Urine,Voided Proteus mirabilis 07/27/24 02:20 Blood Culture - Preliminary Blood Assessment and Plan Plan: Acute sepsis with secondary hypotension secondary to a complicated urinary tract infection. Hemodynamically stable off pressors. UTI with Proteus mirabilis and Enterococcus faecium, currently on IV Rocephin and daptomycin Left renal pyelonephritis secondary to obstructive uropathy related to a left ureteral stone and secondary hydronephrosis, status post double-J stent insertion and the patient is currently on IV ABX Left hydronephrosis, secondary to left renal/distal ureteral calculus and the patient is status post cystoscopy and double-J tube insertion and the patient is currently postop day # 3 Acute kidney injury, creatinine is improving Leukocytosis, improving Hypotension secondary to above, currently off norepinephrine History of recurrent urinary tract infections, currently has a Aguilar catheter in place. prostate cancer with previous radiation therapy and TURP Diverticulosis without acute diverticulitis Acute lactic acidosis, improved Pericardial effusion, small to moderate-sized previous echocardiogram from 05/30/2024 showed preserved LV function with an ejection fraction of 55 to 60% along with severe RV dilatation and the patient is known to have a mild pericardial effusion without any signs of tamponade based on previous echocardiogram. Repeat echocardiogram shows moderate-sized pericardial effusion without any signs of tamponade on 07/27/2024. History of present C. difficile colitis, currently inactive and stable Paroxysmal atrial fibrillation anticoagulated with warfarin , current rhythm is paced Permanent pacemaker History of hypertension History of hyperlipidemia History of renal stones with previous lithotripsy Obesity, with a BMI of 38.7 kg/m Stage 2 coccyx and hip wounds Plan Continue IV fluids and the patient is on normal saline at rate of 75 cc an hour Continue IV Rocephin and daptomycin per ID Urine cultures positive for Proteus and Enterococcus faecium Continue anticoagulation with warfarin, PT/INR is sub-therapeutic for now at 1.9, and Coumadin will be offered with daily monitoring of the PT/INR Flomax IV Protonix White cell count is improving Creatinine is improving Monitor mental status improved Repeat echo was noted Will continue to follow.
--- NOTE | 2024-07-30 18:30 | XR ---
EXAMINATION TYPE: XR chest 1V portable DATE OF EXAM: 07/30/2024 6:18 PM COMPARISON: Chest radiographs from 07/27/2024 CLINICAL INDICATION: Male, 83 years old with history of SOB; [facility] TECHNIQUE: XR chest 1V portable Frontal view of the chest. FINDINGS: Lungs/Pleura: Blunting of the left costophrenic angle. There is no evidence of right pleural effusion , focal consolidation, or pneumothorax. Pulmonary vascularity: Unremarkable. Heart/mediastinum: Cardiomediastinal silhouette is partially obscured due to overlying and adjacent o pacities. Two lead cardiac conduction device overlying the left hemithorax with lead tips projecting over the right ventricle and right atrium. Musculoskeletal: No acute osseous pathology. There is fixation hardware in the lower cervical spine. IMPRESSION: Left pleural effusion with associated atelectasis. [facility], , 07/30/2024 6:27 PM
--- NOTE | 2024-07-30 22:16 | P.PN ---
Subjective 83 years old female with past medical history of multiple medical problems as below Presents initially with generalized weakness, he could not get up from sitting position and he felt very weak Other than that he denies any specific symptoms However on exam he has significant suprapubic tenderness. Patient denies chest pain or dyspnea, no GI symptoms, no neurological symptoms specifically no headache weakness numbness Patient was suspected to have UTI but no much of symptoms but on exam he has suprapubic pain and tenderness. Dyspnea is quite rate. Patient states that he has been having incontinence of urine since last summer. On admission he looks septic, he had fever, hypotension tachypnea and tachycardia. Workup showed CT of the abdomen and pelvis with moderate obstructive left ureteral stone. Other incidental findings of pericardial effusion Other labs showing significant leukocytosis of 38,000, creatinine above baseline 1.6 with baseline 1.1-1.3 Patient INR is therapeutic at 2.1 while he is on Coumadin Has elevated lactic acid 4.3, bilirubin 0.5 Chest x-ray read as left pleural effusion with atelectasis, less likely felt the patient has pneumonia. Patient denies any respiratory symptoms EKG showing ventricular paced rhythm Echocardiogram was pending Patient was started on antibiotics with daptomycin and cefepime Also patient was taken emergently to the operation room with stent placed in the left uterus I saw the patient in the postop exam unit he was doing well fully awake and oriented does not look in distress with no significant pain. However once he got to the ICU started on small dose of pressors with Levophed 0.03 07/28 Patient is awake today He is seen in the ICU lying in bed looks comfortable feels mild general weakness No overt urinary symptoms no suprapubic pain or tenderness, he has external urine catheter with good urine output and yellow in color His perineal erythema is also improving He had 2 episodes of diarrhea last night He is on normal saline at 120 mL/h Continued on broad-spectrum antibiotics with daptomycin and cefepime Labs showing leukocytosis almost the same 36.3, creatinine around the same 1.7. Resume warfarin once cleared by surgery team 07/29 Patient continued to feel generally weak No other specific complaint Right groin catheter was removed Perineal erythema is improving but not completely resolved and there might be some elements of fungal infection and nystatin was started pain controlled with pain medication Aguilar catheter in place Resumed warfarin today for history of A-fib. Leukocytosis improving down to 22,000, creatinine down to 1.39. Patient remains on antibiotics daptomycin and cefepime Urine cultures growing pulmonary gram-negative bacilli In my opinion patient clinically stable will be transferred out of the ICU once available 07/30/24 Patient feels much better today, no other specific complaints He has mild diarrhea which is easing down and but looks chronic as well He is eating his meal with good appetite. Hemodynamically stable and afebrile His leukocytosis significantly improved and WBC down to 10K INR almost therapeutic at 1.9 while BMP is unremarkable Chest x-ray showing left pleural effusion Urine culture finalized as Proteus and Enterococcus faecium VRE while urine cultures positive for Proteus Patient currently covered with daptomycin and Rocephin with plan to continue therapy with oral Ceftin and Zyvox upon discharge Possible discharge in 24 hours if he keeps improving Active Medications Generic Name Dose Route Start Last Admin Trade Name Freq PRN Reason Stop Dose Admin Acetaminophen 650 mg 07/30/24 22:06 Acetaminophen Tab 325 Mg Tab PO Q6HR PRN Fever and/ or Pain Albuterol Sulfate 2.5 mg 07/27/24 19:12 Albuterol Nebulized 2.5 Mg/3 Ml INHALATION RT-Q6H PRN Shortness Of Breath Or Wheezing Cholestyramine Resin 4 gm 07/28/24 13:00 07/30/24 17:44 Cholestyramine (With Sugar) 4 Gm Packet PO 4 gm BID@1000,1800 ALEJANDRO Administration Sodium Chloride 1,000 mls @ 75 mls/hr 07/27/24 02:30 07/30/24 17:45 Saline 0.9% IV Not Given .[id number] ALEJANDRO Ceftriaxone Sodium 2 gm/ 50 mls @ 100 mls/hr 07/29/24 11:00 07/30/24 09:39 Sodium Chloride IVPB 100 mls/hr Q24HR ALEJANDRO Administration Protocol Daptomycin 400 mg/ Sodium 50 mls @ 100 mls/hr 07/29/24 12:00 07/30/24 14:08 Chloride IVPB 100 mls/hr Q24H ALEJANDRO Administration Protocol Lactobacillus Acidophilus 1 each 07/29/24 16:00 07/30/24 17:44 Lactobacillus Acidophilus/Pect 1 Each Capsule PO 1 each TID ALEJANDRO Administration Miscellaneous Information 1 each 07/28/24 08:13 Potassium Replacement Protocol 1 Each Misc MISCELLANE DAILY PRN Per Protocol Protocol Miscellaneous Information 1 each 07/28/24 08:13 Magnesium Replacement Protocol 1 Each [facility] [place], [place] MISCELLANE DAILY PRN Per Protocol Protocol Miscellaneous Information 1 each 07/29/24 08:31 Warfarin Per Pharmacy MISCELLANE DIRECTED PRN Per Protocol Protocol Naloxone HCl 0.2 mg 07/27/24 04:38 Naloxone 0.4 Mg/Ml 1 Ml Vial IV Q2M PRN Opioid Reversal Nystatin 1 applic 07/29/24 09:00 07/30/24 21:59 Nystatin 100,000 Unit/Gm Powd 15 Gm TOPICAL 1 applic BID ALEJANDRO Administration Protocol Pantoprazole Sodium 40 mg 07/28/24 09:00 07/30/24 09:39 Pantoprazole 40 Mg Tablet PO 40 mg DAILY ALEJANDRO Administration Petrolatum 1 applic 07/27/24 17:02 Zinc Oxide Paste (Z-Guard) 1 Applic TOPICAL Q2HR PRN Wound Healing Protocol Tamsulosin HCl 0.4 mg 07/28/24 18:30 07/30/24 17:44 Tamsulosin 0.4 Mg Cap.Er.24h PO 0.4 mg PC-SUPPER ALEJANDRO Administration Objective - Vital Signs Vital signs: Vital Signs Temp 97.5 F L 07/30/24 20:00 Pulse 60 07/30/24 20:00 Resp 14 07/30/24 20:00 BP 159/67 07/30/24 20:00 Pulse Ox 98 07/30/24 20:00 FiO2 Intake & Output 07/30/24 07/30/24 07/31/24 06:59 18:59 06:59 Intake Total 540 1320 Output Total 600 1000 Balance -60 320 Intake: Oral 540 1320 Output: Urine 600 1000 Other: Voiding Method External Catheter External Catheter - Exam -GENERAL: The patient is alert and oriented x3, not in any acute distress. O bese HEENT: Pupils are round and equally reacting to light. EOMI. No scleral icterus. No conjunctival pallor. Normocephalic, atraumatic. No pharyngeal erythema. No thyromegaly. CARDIOVASCULAR: S1 and S2 present. No murmurs, rubs, or gallops. PULMONARY: Chest is clear to auscultation, no wheezing , no crackles. -ABDOMEN: Soft, nontender, nondistended, normoactive bowel sounds. No palpable organomegaly. Peritoneal erythema, improving MUSCULOSKELETAL: No joint swelling or deformity. EXTREMITIES: No cyanosis, clubbing, or pedal edema. NEUROLOGICAL: Gross neurological examination did not reveal any focal deficits. SKIN: No rashes. no petechiae. - Labs CBC & Chem 7: 07/30/24 03:21 07/30/24 03:21 Labs: Abnormal Lab Results - Last 24 Hours (Table) 07/30/24 07/30/24 07/30/24 Range/Units 03:21 03:21 03:21 WBC 10.89 H (4.50-10.00) X 10*3/uL RBC 3.67 L (4.40-5.60) X 10*6/uL Hgb 9.5 L (13.0-17.0) g/dL Hct 30.8 L (39.6-50.0) % MCH 25.9 L (27.0-32.0) pg MCHC 30.8 L (32.0-37.0) g/dL RDW 17.6 H (11.5-14.5) % PT 19.1 H (10.0-12.5) sec INR 1.9 H (<1.2) Chloride 112 H (96-109) mmol/L Carbon Dioxide 19.4 L (21.6-31.8) mmol/L Calcium 7.7 L (8.7-10.3) mg/dL Microbiology - Last 24 Hours (Table) 07/27/24 02:20 Blood Culture - Preliminary Blood 07/27/24 08:30 Urine Culture - Final Urine,Ureter Proteus mirabilis Enterococcus faecium VRE Assessment and Plan Assessment: Acute left pyelonephritis status post obstructive ureteral calculus status post stent insertion on 07/27 Severe sepsis secondary to above with leukocytosis tachypnea tachycardia, improving Acute kidney injury on chronic kidney disease Pericardial effusion for which cardiothoracic surgery has been consulted Paroxysmal A-fib, on Coumadin History of prostate cancer Plan: Continue with broad-spectrum antibiotics with daptomycin and ceftriaxone as per ID team Urology following closely and patient s/p stent placement Follow-up urine culture blood culture Continue warfarin and therapeutic INR of 2-3 Cardiothoracic surgery consult for pericardial effusion, pending echocardiogram Pulmonary/critical care team consult Infectious disease team consult Labs and medication were reviewed.. Continue same treatment. Continue with symptomatic treatment. Resume home medication. Monitor labs and vitals. DVT and GI prophylaxis. Further recommendations as per clinical course of the patient DVT prophylaxis: Warfarin GI Prophylaxis: Protonix PT/OT: Pending Prognosis is guarded
[2024-07-30] MEDS: ACETAMINOPHEN TAB 325 MG TAB PO PRN (22:26)
[2024-07-31 05:40] LABS: INR 2.4 (<1.2); Prothrombin Time 23.9 sec (10.0-12.5)
--- NOTE | 2024-07-31 15:33 | P.PN ---
Subjective Progress Note Date: 07/31/24 83 years old female with past medical history of multiple medical problems as below Presents initially with generalized weakness, he could not get up from sitting position and he felt very weak Other than that he denies any specific symptoms However on exam he has significant suprapubic tenderness. Patient denies chest pain or dyspnea, no GI symptoms, no neurological symptoms specifically no headache weakness numbness Patient was suspected to have UTI but no much of symptoms but on exam he has suprapubic pain and tenderness. Dyspnea is quite rate. Patient states that he has been having incontinence of urine since last summer. On admission he looks septic, he had fever, hypotension tachypnea and t achycardia. Workup showed CT of the abdomen and pelvis with moderate obstructive left ureteral stone. Other incidental findings of pericardial effusion Other labs showing significant leukocytosis of 38,000, creatinine above baseline 1.6 with baseline 1.1-1.3 Patient INR is therapeutic at 2.1 while he is on Coumadin Has elevated lactic acid 4.3, bilirubin 0.5 Chest x-ray read as left pleural effusion with atelectasis, less likely felt the patient has pneumonia. Patient denies any respiratory symptoms EKG showing ventricular paced rhythm Echocardiogram was pending Patient was started on antibiotics with daptomycin and cefepime Also patient was taken emergently to the operation room with stent placed in the left uterus I saw the patient in the postop exam unit he was doing well fully awake and oriented does not look in distress with no significant pain. However once he got to the ICU started on small dose of pressors with Levophed 0.03 07/28 Patient is awake today He is seen in the ICU lying in bed looks comfortable feels mild general weakness No overt urinary symptoms no suprapubic pain or tenderness, he has external urine catheter with good urine output and yellow in color His perineal erythema is also improving He had 2 episodes of diarrhea last night He is on normal saline at 120 mL/h Continued on broad-spectrum antibiotics with daptomycin and cefepime Labs showing leukocytosis almost the same 36.3, creatinine around the same 1.7. Resume warfarin once cleared by surgery team 07/29 Patient continued to feel generally weak No other specific complaint Right groin catheter was removed Perineal erythema is improving but not completely resolved and there might be some elements of fungal infection and nystatin was started pain controlled with pain medication Aguilar catheter in place Resumed warfarin today for history of A-fib. Leukocytosis improving down to 22,000, creatinine down to 1.39. Patient remains on antibiotics daptomycin and cefepime Urine cultures growing pulmonary gram-negative bacilli In my opinion patient clinically stable will be transferred out of the ICU once available 07/30/24 Patient feels much better today, no other specific complaints He has mild diarrhea which is easing down and but looks chronic as well He is eating his meal with good appetite. Hemodynamically stable and afebrile His leukocytosis significantly improved and WBC down to 10K INR almost therapeutic at 1.9 while BMP is unremarkable Chest x-ray showing left pleural effusion Urine culture finalized as Proteus and Enterococcus faecium VRE while urine cultures positive for Proteus Patient currently covered with daptomycin and Rocephin with plan to continue therapy with oral Ceftin and Zyvox upon discharge Possible discharge in 24 hours if he keeps improving 07/31. Patient seen and examined. States he feels not the best today. Complaining of diarrhea. Had 2 loose stools this morning. REVIEW OF SYSTEMS: CONSTITUTIONAL: No fever, no malaise,. CARDIOVASCULAR: No chest pain, no palpitations, no syncope. PULMONARY: No shortness of breath, no cough, GASTROINTESTINAL: no nausea, no vomiting, no abdominal pain. NEUROLOGICAL: No headaches, no weakness, PHYSICAL EXAMINATION: GENERAL: The patient is alert and oriented x3, not in any acute distress. Well developed, well nourished. HEENT: Pupils are round and equally reacting to light. EOMI. No scleral icterus. No conjunctival pallor. Normocephalic, atraumatic. No pharyngeal erythema. No thyromegaly. CARDIOVASCULAR: S1 and S2 present. No murmurs, rubs, or gallops. PULMONARY: Chest is clear to auscultation, no wheezing or crackles. ABDOMEN: Soft, nontender, nondistended, normoactive bowel sounds. No palpable organomegaly. MUSCULOSKELETAL: No joint swelling or deformity. EXTREMITIES: No cyanosis, clubbing, or pedal edema. NEUROLOGICAL: Gross neurological examination did not reveal any focal deficits. SKIN: No rashes. Assessment and plan Acute left pyelonephritis status post obstructive ureteral calculus status post stent insertion on 07/27 Severe sepsis secondary to above with leukocytosis tachypnea tachycardia, improving Acute kidney injury on chronic kidney disease Pericardial effusion for which cardiothoracic surgery has been consulted Paroxysmal A-fib, on Coumadin History of prostate cancer Monitor vital signs Monitor CBC Monitor CMP Follow-up on urine cultures Continue Rocephin and daptomycin Continue pharmacy dose Coumadin 2D echo done showed LVEF 55%, moderate LVH, severe by atrial dilatation, no regional wall motion abnormality, small pericardial effusion which remains unch anged from previous study ID following Pulmonology following Labs and medication were reviewed.. Continue same treatment. Continue with symptomatic treatment. Resume home medication. Monitor labs and vitals. DVT and GI prophylaxis. Further recommendations as per clinical course of the patient Dictation was produced using [employer] dictation software. please excuse any grammatical, word or spelling errors. Objective - Vital Signs Vital signs: Vital Signs Temp 98.4 F 07/31/24 07:50 Pulse 56 L 07/31/24 07:50 Resp 19 07/31/24 07:50 BP 135/61 07/31/24 07:50 Pulse Ox 98 07/31/24 09:27 FiO2 Intake & Output 07/30/24 07/31/24 07/31/24 18:59 06:59 18:59 Intake Total 1320 540 Output Total 1000 600 Balance 320 -60 Intake: Oral 1320 540 Output: Urine 1000 600 Other: Voiding Method External Catheter Indwelling Catheter - Labs CBC & Chem 7: 07/30/24 03:21 07/30/24 03:21 Labs: Abnormal Lab Results - Last 24 Hours (Table) 07/31/24 Range/Units 04:33 PT 23.9 H (10.0-12.5) sec INR 2.4 H (<1.2) Microbiology - Last 24 Hours (Table) 07/27/24 02:20 Blood Culture - Preliminary Blood 07/27/24 08:30 Urine Culture - Final Urine,Ureter Proteus mirabilis Enterococcus faecium VRE
--- NOTE | 2024-07-31 16:42 | P.PN ---
Subjective Progress Note Date: 07/31/24 This is a 83-year-old male patient was being seen in recovery. The patient presented to the hospital with altered mentation and fever. The patient is known to have multiple medical problems and comorbidities. He has had previous episodes of urine tract infection and urinary sepsis and nephrolithiasis and the patient has a complicated history of left distal ureteral calculus approximately a month ago with a complicated urine tract infection with Enterobacter and at that time the patient was seen by Dr. Asher who performed a ureteroscopy and removal of a ureteral calculus and the patient was treated with antibiotics and he was discharged home. During this current admission, the patient was found to be septic with a white cell count of 38 and he also had an acute kidney injury with a creatinine of 1.6 which is higher compared to his baseline. His lactic acid level was at 4.3. UA was abnormal consistent with UTI with more than 192 white cells and 20 RBCs. Urine cultures and blood cultures were sent. CAT scan of the abdomen was also done that showed evidence of a obstructive distal left ureteral stone with moderate degree of left-sided hydronephrosis and hydroureter consistent with urinary obstruction. Based on that, the patient was taken to the operating room by urology and the patient underwent a left ureteral stent insertion and cystoscopy. Postop, the patient was seen in recovery. The patient was started on pressors and he was receiving norepinephrine at 0.05 mcg/kg/min. He is also on normal saline at rate of 125 cc an hour. He is on oxygen at 2 L/min nasal cannula. His cardiac rhythm is paced. The patient is known to have also moderate pericardial effusion that was also seen on the CAT scan of the abdomen and the pericardial effusion based on the CAT scan images seems to be stable and the patient does not have any tamponade physiology. This is also confirmed on the previous echocardiogram. The patient is also known to have hypertension hyperlipidemia and paroxysmal atrial fibrillation maintained on warfarin on outpatient basis. He is known to have prostate cancer that was treated with radiation therapy and he has sick sinus syndrome and has a perma nent pacemaker in place. He has diastolic heart failure with moderate aortic regurgitation and moderate mitral valve regurgitation and previous history of C. difficile colitis back in May 2024. 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 Quit smoking approximately 30 to 40 years ago. Based on previous urinary cultures, the patient had growth with Pseudomonas aeruginosa and VRE based on the urine cultures were obtained on 07/08/2024. 07/28/2024, the patient is not having any specific complaints. No abdominal pain. No altered mentation. Hemodynamically stable and the patient has been taken off pressors. He remains on a combination of cefepime and daptomycin and the patient is also on normal saline at 125 cc an hour. Cultures are still pending for now. The patient had a complicated urine tract infection with sepsis and ob structive uropathy and the patient is status post double-J stent insertion for a left ureteral stent. The urine culture is showing gram-negative bacillus. The white cell count today is at 36 with a hemoglobin 10.2 and a platelet count of 282. BUN is 27 with a creatinine of 1.7 and sodium levels at 138. Urology is on the case. No focal neurological deficits for now. The patient's INR from yesterday was at 2.1. Repeat PT/INR is pending from today. Urine output is adequate. Awake and alert. Repeat echocardiogram was done on 07/27/2023 and the patient has normal LV function with an EF of around 55%, moderate LVH, small circumferential pericardial effusion with moderate left posterior lateral pericardial effusion without any signs of tamponade On 07/29/2024, the patient is being seen for a follow-up. Doing well. No specific complaints. Hemodynamically stable. Afebrile. No nausea vomiting or emesis. White cell count down to 22 with a hemoglobin 10.4. Creatinine is also improving is down to 1.39 with a BUN of 25 and a sodium levels at 140. INR is at 1.7. Urine culture is positive for Proteus Mirabella's and Enterococcus faecium. Antibiotic coverage for now is with IV cefepime. The patient is post double-J stent insertion for a complicated urine tract infection with sepsis. No other significant events overnight. Awake and alert and communicating. He is feeling generalized weakness. No other specific complaints. Aguilar catheter remains in place. The patient will be started back on anticoagulation with warfarin as the patient's INR subtherapeutic and is being given for chronic atrial fibrillation. On 07/30/2024, the patient is being seen for a follow-up. Doing well and resting comfortably in bed. Remains on a combination of Rocephin and daptomycin as the patient had a combination of Proteus and VRE urine tract infection. The patient is status post double-J stent insertion for obstructive uropathy. White cell count is down to 10.8 with a hemoglobin 9.5 and a platelet count of 283. Sodium is at 139, bicarb is at 19 with a BUN of 18 and creatinine is down to 1.2. No respiratory distress. Hemodynamically stable. Currently on room air oxygen. Tolerating his diet. No nausea vomiting or abdominal pain. ID is on the case. The patient remains on broad-spectrum antibiotics. On 07/31/2024, no new complaints and the patient remains on a combination of daptomycin and and Rocephin. Afebrile. No new labs are available from today. Viral 4 Plex has been negative. INR is at 2.4. Hemodynamically stable. No respiratory difficulties and the patient is currently on 2 L of oxygen by nasal cannula with a pulse ox of 98%. No other significant events overnight. Objective - Vital Signs Vital signs: Vital Signs Temp 98 F 07/31/24 12:57 Pulse 62 07/31/24 12:57 Resp 19 07/31/24 12:57 BP 151/75 07/31/24 12:57 Pulse Ox 98 07/31/24 12:57 FiO2 Intake & Output 07/30/24 07/31/24 07/31/24 18:59 06:59 18:59 Intake Total 1320 540 Output Total 1000 600 Balance 320 -60 Intake: Oral 1320 540 Output: Urine 1000 600 Other: Voiding Method External Catheter Indwelling Catheter Indwelling Catheter - Exam GENERAL EXAM: Alert, 83-year-old male patient, on room air, in no apparent distress. The patient is currently on 2 L of oxygen by nasal cannula. HEAD: Normocephalic. EYES: Normal reaction of pupils, equal size. NOSE: Clear with pink turbinates. THROAT: No erythema or exudates. NECK: No masses, no JVD. CHEST: No chest wall deformity. LUNGS: Equal air entry with no crackles, wheeze, rhonchi or dullness. CVS: S1 and S2 normal with no audible murmur, regular rhythm. The cardiac rhythm is paced at this point in time, V pacing ABDOMEN: No hepatosplenomegaly, normal bowel sounds, no guarding or rigidity. SPINE: No scoliosis or deformity SKIN: No rashes CENTRAL NERVOUS SYSTEM: Altered mentation, neurologic exam is nonfocal and the patient is moving all 4 extremities. EXTREMITIES: There is no peripheral edema. No clubbing, no cyanosis. Peripheral pulses are intact. - Labs CBC & Chem 7: 07/30/24 03:21 07/30/24 03:21 Labs: Abnormal Lab Results - Last 24 Hours (Table) 07/31/24 Range/Units 04:33 PT 23.9 H (10.0-12.5) sec INR 2.4 H (<1.2) Microbiology - Last 24 Hours (Table) 07/27/24 02:20 Blood Culture - Preliminary Blood 07/27/24 08:30 Urine Culture - Final Urine,Ureter Proteus mirabilis Enterococcus faecium VRE Assessment and Plan Plan: Acute sepsis with secondary hypotension secondary to a complicated urinary tract infection. Hemodynamically stable off pressors. UTI with Proteus mirabilis and Enterococcus faecium, currently on IV Rocephin and daptomycin Left renal pyelonephritis secondary to obstructive uropathy related to a left ureteral stone and secondary hydronephrosis, status post double-J stent insertion and the patient is currently on IV ABX Left hydronephrosis, secondary to left renal/distal ureteral calculus and the patient is status post cystoscopy and double-J tube insertion and the patient is currently postop day # 4 Acute kidney injury, creatinine is improving Leukocytosis, improving Hypotension secondary to above, currently off norepinephrine History of recurrent urinary tract infections, currently has a Aguilar catheter in place. prostate cancer with previous radiation therapy and TURP Diverticulosis without acute diverticulitis Acute lactic acidosis, improved Pericardial effusion, small to moderate-sized previous echocardiogram from 05/30/2024 showed preserved LV function with an ejection fraction of 55 to 60% along with severe RV dilatation and the patient is known to have a mild pericardial effusion without any signs of tamponade based on previous echocardiogram. Repeat echocardiogram shows moderate-sized pericardial effusion without any signs of tamponade on 07/27/2024. History of present C. difficile colitis, currently inactive and stable Paroxysmal atrial fibrillation anticoagulated with warfarin , current rhythm is paced Permanent pacemaker History of hypertension History of hyperlipidemia History of renal stones with previous lithotripsy Obesity, with a BMI of 38.7 kg/m Stage 2 coccyx and hip wounds Plan Continue same treatment Continue IV fluids and the patient is on normal saline at rate of 75 cc an hour Continue IV Rocephin and daptomycin per ID Urine cultures positive for Proteus and Enterococcus faecium Continue anticoagulation with warfarin, PT/INR is therapeutic at 2.4 Flomax IV Protonix White cell count is improving Creatinine is improving Monitor mental status improved Repeat echo was noted Will continue to follow.
[2024-07-31] MEDS: WARFARIN 2.5 MG TAB PO ONE (17:23)
--- NOTE | 2024-07-31 23:17 | P.PN ---
Subjective Progress Note Date: 07/31/24 Principal diagnosis: Reason for follow-up is sepsis UTI Patient is a 83-year-old male with a past medical history significant for UTI kidney stones history of recurrent C. difficile colitis patient has been brought into the hospital for evaluation of mental status changes also have a left flank pain did have fever CT abdominal pelvis with evidence of moderate left-sided hydronephrosis requiring cystoscopy and ureteral stent placement. On today's evaluation that is 07/31/2024, the patient continues to be afebrile, the patient is on 2 L nasal oxygen and breathing comfortably, the Pt denies having any chest pain or cough, the patient denies having any abdominal pain no vomiting, no diarrhea reported by the nursing staff however the patient mention he did have about 6 bowel movements since morning. Patient did have a INR of 2.4 no CBC was done today urine culture with VRE and Proteus Objective - Vital Signs Vital signs: Vital Signs Temp 98.4 F 07/31/24 07:50 Pulse 56 L 07/31/24 07:50 Resp 19 07/31/24 07:50 BP 135/61 07/31/24 07:50 Pulse Ox 98 07/31/24 09:27 FiO2 Intake & Output 07/30/24 07/31/24 07/31/24 18:59 06:59 18:59 Intake Total 1320 540 Output Total 1000 600 Balance 320 -60 Intake: Oral 1320 540 Output: Urine 1000 600 Other: Voiding Method External Catheter Indwelling Catheter - Exam GENERAL DESCRIPTION: An elderly male lying in bed in no distress RESPIRATORY SYSTEM: Unlabored breathing , decreased breath sounds at bases HEART: S1 S2 regular rate and rhythm , ABDOMEN: Soft , no tenderness EXTREMITIES: No edema feet - Labs CBC & Chem 7: 07/30/24 03:21 07/30/24 03:21 Labs: Abnormal Lab Results - Last 24 Hours (Table) 07/31/24 Range/Units 04:33 PT 23.9 H (10.0-12.5) sec INR 2.4 H (<1.2) Microbiology - Last 24 Hours (Table) 07/27/24 02:20 Blood Culture - Preliminary Blood 07/27/24 08:30 Urine Culture - Final Urine,Ureter Proteus mirabilis Enterococcus faecium VRE Assessment and Plan (1) Acute pyelonephritis Current Visit: Yes Status: Acute Code(s): N10 - ACUTE PYELONEPHRITIS SNOMED Code(s): 43579682 (2) Sepsis Current Visit: Yes Status: Acute Code(s): A41.9 - SEPSIS, UNSPECIFIED ORGANISM SNOMED Code(s): 30229937 (3) Leukocytosis Current Visit: No Status: Acute Code(s): D72.829 - ELEVATED WHITE BLOOD CELL COUNT, UNSPECIFIED SNOMED Code(s): 139558877 Plan: 1patient presented to hospital with sepsis in this patient with fever elevated white count source is complicated UTI as the patient did have a left-sided ureteral stone requiring cystoscopy and ureteral stent placement last urine culture positive for VRE and Pseudomonas aeruginosa that was on 07/08/2024 2urine culture growing Proteus as well as Enterococcus faecium has been finalized as VRE, 3patient with diarrhea, stool for C. difficile has been negative continue with the Questran for symptomatic relief probiotic and yogurt intake, need to have accurate documentation of his bowel movements discussed with the nursing staff 4patient currently being treated with daptomycin and Rocephin however patient will be able to finish therapy with oral Ceftin and Zyvox on discharge, discussed with the medical team and prescription was sent Dictation was produced using [employer] dictation software. please excuse any grammatical, word or spelling errors. Time with Patient: Less than 30
[2024-08-01 07:26] LABS: INR 2.6 (<1.2); Prothrombin Time 25.7 sec (10.0-12.5)
[2024-08-01 08:17] VITALS: RESP 16
[2024-08-01 12:32] VITALS: BP 127/61; PULSE 55; TEMP 98.6
--- NOTE | 2024-08-01 13:05 | P.DS ---
Providers Date of admission: 07/27/24 04:40 Expected date of discharge: 08/01/24 Attending physician: Carina Knott Consults: 07/27/24 04:38 Consult Physician Routine Consulting Provider: Aj Castillo Consult Reason/Comments: infection Do you want consulting provider notified?: Yes Consult Physician Stat Consulting Provider: Steve Peraza Consult Reason/Comments: icu patient, spoke w anabela Do you want consulting provider notified?: Yes 07/27/24 05:21 Consult Physician Routine Consulting Provider: Shadi Nguyen Consult Reason/Comments: septic stone Do you want consulting provider notified?: Yes 07/27/24 05:23 Consult Physician Routine Consulting Provider: Nel Loja Consult Reason/Comments: pericardial effusion Do you want consulting provider notified?: Yes Primary care physician: Celina Munoz Hospital Course: Discharge diagnoses; Acute left pyelonephritis status post obstructive ureteral calculus status post stent insertion on 07/27 Severe sepsis secondary to above with leukocytosis tachypnea tachycardia, improving Acute kidney injury on chronic kidney disease Pericardial effusion for which cardiothoracic surgery has been consulted Paroxysmal A-fib, on Coumadin History of prostate cancer Hospital course; 83 years old female with past medical history of multiple medical problems as below Presents initially with generalized weakness, he could not get up from sitting position and he felt very weak Other than that he denies any specific symptoms However on exam he has significant suprapubic tenderness. Patient denies chest pain or dyspnea, no GI symptoms, no neurological symptoms specifically no headache weakness numbness Patient was suspected to have UTI but no much of symptoms but on exam he has suprapubic pain and tenderness. Dyspnea is quite rate. Patient states that he has been having incontinence of urine since last summer. On admission he looks septic, he had fever, hypotension tachypnea and tachycardia. Workup showed CT of the abdomen and pelvis with moderate obstructive left ureteral stone. Other incidental findings of pericardial effusion Other labs showing significant leukocytosis of 38,000, creatinine above baseline 1.6 with baseline 1.1-1.3 Patient INR is therapeutic at 2.1 while he is on Coumadin Has elevated lactic acid 4.3, bilirubin 0.5 Chest x-ray read as left pleural effusion with atelectasis, less likely felt the patient has pneumonia. Patient denies any respiratory symptoms EKG showing ventricular paced rhythm Echocardiogram was pending Patient was started on antibiotics with daptomycin and cefepime Also patient was taken emergently to the operation room with stent placed in the left uterus I saw the patient in the postop exam unit he was doing well fully awake and oriented does not look in distress with no significant pain. However once he got to the ICU started on small dose of pressors with Levophed 0.03 07/28 Patient is awake today He is seen in the ICU lying in bed looks comfortable feels mild general weakness No overt urinary symptoms no suprapubic pain or tenderness, he has external urine catheter with good urine output and yellow in color His perineal erythema is also improving He had 2 episodes of diarrhea last night He is on normal saline at 120 mL/h Continued on broad-spectrum antibiotics with daptomycin and cefepime Labs showing leukocytosis almost the same 36.3, creatinine around the same 1.7. Resume warfarin once cleared by surgery team 07/29 Patient continued to feel generally weak No other specific complaint Right groin catheter was removed Perineal erythema is improving but not completely resolved and there might be some elements of fungal infection and nystatin was started pain controlled with pain medication Aguilar catheter in place Resumed warfarin today for history of A-fib. Leukocytosis improving down to 22,000, creatinine down to 1.39. Patient remains on antibiotics daptomycin and cefepime Urine cultures growing pulmonary gram-negative bacilli In my opinion patient clinically stable will be transferred out of the ICU once available 07/30/24 Patient feels much better today, no other specific complaints He has mild diarrhea which is easing down and but looks chronic as well He is eating his meal with good appetite. Hemodynamically stable and afebrile His leukocytosis significantly improved and WBC down to 10K INR almost therapeutic at 1.9 while BMP is unremarkable Chest x-ray showing left pleural effusion Urine culture finalized as Proteus and Enterococcus faecium VRE while urine cultures positive for Proteus Patient currently covered with daptomycin and Rocephin with plan to continue therapy with oral Ceftin and Zyvox upon discharge Possible discharge in 24 hours if he keeps improving 07/31. Patient seen and examined. States he feels not the best today. Complaining of diarrhea. Had 2 loose stools this morning. 08/01. Patient seen and examined. Patient being discharged on Zyvox and Ceftin. Patient to follow-up outpatient with PCP and ID PHYSICAL EXAMINATION: GENERAL: The patient is alert and oriented x3, n ill looking HEENT: Pupils are round and equally reacting to light. EOMI. No scleral icterus. No conjunctival pallor. Normocephalic, atraumatic. No pharyngeal erythema. No thyromegaly. CARDIOVASCULAR: S1 and S2 present. No murmurs, rubs, or gallops. PULMONARY: Diminished breath sounds at bases bilaterally, no wheezing or crackles. ABDOMEN: Soft, nontender, nondistended, normoactive bowel sounds. No palpable organomegaly. MUSCULOSKELETAL: No joint swelling or deformity. EXTREMITIES: No cyanosis, clubbing, or pedal edema. NEUROLOGICAL: Gross neurological examination did not reveal any focal deficits. SKIN: No rashes. Dictation was produced using [employer] dictation software. please excuse any grammatical, word or spelling errors. Patient Condition at Discharge: Good Plan - Discharge Summary Discharge Rx Participant: No New Discharge Prescriptions: New cefuroxime axetiL [Ceftin] 500 mg PO BID #20 tab Linezolid [Zyvox] 600 mg PO Q12H #20 tab Lactobacillus Acidoph & Bulgar [Lactinex] 1 packet PO BID 10 Days #20 packet Continue Albuterol Inhaler [Ventolin Hfa Inhaler] 2 puff INHALATION RT-Q6H PRN each PRN Reason: Shortness Of Breath Or Wheezing Warfarin [Coumadin] 5 mg PO SUTUWETHSA@2100 Warfarin [Coumadin] 2.5 mg PO MOFR@2100 Tamsulosin [Flomax] 0.4 mg PO PC-SUPPER #30 cap Acetaminophen [Tylenol] 1,000 mg PO Q6H PRN PRN Reason: Pain Potassium Chloride ER [K-Dur 10] 10 meq PO DAILY Nystatin 100,000 Unit/gm Powd [Mycostatin Powder] 1 applic TOPICAL BID PRN PRN Reason: Skin Irritation Midodrine [ProAmatine] 5 mg PO AC-TID #90 tab Cholestyramine (with Sugar) [Questran Packet] 4 gm PO BID #60 packet Sodium Bicarbonate Tab 650 mg PO BID #60 tab Discontinued Pantoprazole [Protonix] 40 mg PO DAILY #30 tab amLODIPine [Norvasc] 10 mg PO DAILY 14 Days #14 tab Discharge Medication List Acetaminophen [Tylenol] 1,000 mg PO Q6H PRN 05/30/21 [History] Albuterol Inhaler [Ventolin Hfa Inhaler] 2 puff INHALATION RT-Q6H PRN each 12/27/23 [Rx] Potassium Chloride ER [K-Dur 10] 10 meq PO DAILY 03/18/24 [History] Nystatin 100,000 Unit/gm Powd [Mycostatin Powder] 1 applic TOPICAL BID PRN 04/30/24 [History] Warfarin [Coumadin] 2.5 mg PO MOFR@209904/30/24 [History] Warfarin [Coumadin] 5 mg PO SUTUWETHSA@209904/30/24 [History] Cholestyramine (with Sugar) [Questran Packet] 4 gm PO BID #60 packet 05/12/24 [Rx] Midodrine [ProAmatine] 5 mg PO AC-TID #90 tab 05/12/24 [Rx] Sodium Bicarbonate Tab 650 mg PO BID #60 tab 05/12/24 [Rx] Tamsulosin [Flomax] 0.4 mg PO PC-SUPPER #30 cap 05/12/24 [Rx] Linezolid [Zyvox] 600 mg PO Q12H #20 tab 07/31/24 [Rx] cefuroxime axetiL [Ceftin] 500 mg PO BID #20 tab 07/31/24 [Rx] Lactobacillus Acidoph & Bulgar [Lactinex] 1 packet PO BID 10 Days #20 packet 08/01/24 [Rx] Follow up Appointment(s)/Referral(s): [facility] [NON-STAFF] - 1 Week Celina Munoz MD [Primary Care Provider] - 1-2 days (Patient to arrange own follow-up appts. Office is closed at time of discharge. ) Jaskaran Orellana MD [STAFF PHYSICIAN] - 1 Week (1-2 weeks for removal of stones. Patient to make own appts. Office closed at time of discharge. ) Patient Instructions/Handouts: Cefuroxime (By mouth), Linezolid (By mouth), Urinary Tract Infection in Men (DC), Aguilar Catheter Placement and Care (DC), Ureteral Stent Placement (DC) Activity/Diet/Wound Care/Special Instructions: nursing be aware that the pt has 24/ care at home with [facility] and they need 24hr notice so that they can arrange staff please call and let them know if the pt will be d/c. Discharge Disposition: HOME WITH HOME HEALTH SERVICES
--- NOTE | 2024-08-01 14:13 | P.PN ---
Subjective Progress Note Date: 08/01/24 Principal diagnosis: Reason for follow-up is sepsis UTI Patient is a 83-year-old male with a past medical history significant for UTI kidney stones history of recurrent C. difficile colitis patient has been brought into the hospital for evaluation of mental status changes also have a left flank pain did have fever CT abdominal pelvis with evidence of moderate left-sided hydronephrosis requiring cystoscopy and ureteral stent placement. On today's evaluation that is 08/01/2024, patient did not have any fever and denies any chills, patient is breathing comfortably on room air, patient with no chest pain or cough patient did not have any abdominal pain nausea vomiting and diarrhea has slowed down. Patient did have up INR of 2.6 no CBC was done today urine with Proteus and VRE Objective - Vital Signs Vital signs: Vital Signs Temp 98.6 F 08/01/24 11:55 Pulse 55 L 08/01/24 11:55 Resp 16 08/01/24 11:55 BP 127/61 08/01/24 11:55 Pulse Ox 97 08/01/24 11:55 FiO2 Intake & Output 07/31/24 08/01/24 08/01/24 18:59 06:59 18:59 Intake Total 1080 240 Output Total 1000 600 Balance 80 -360 Intake: Oral 1080 240 Output: Urine 1000 600 Other: Voiding Method Indwelling Catheter Indwelling Catheter Indwelling Catheter # Bowel Movements 3 1 - Exam GENERAL DESCRIPTION: An elderly male lying in bed in no distress RESPIRATORY SYSTEM: Unlabored breathing , decreased breath sounds at bases HEART: S1 S2 regular rate and rhythm , ABDOMEN: Soft , no tenderness EXTREMITIES: No edema feet - Labs CBC & Chem 7: 07/30/24 03:21 07/30/24 03:21 Labs: Abnormal Lab Results - Last 24 Hours (Table) 08/01/24 Range/Units 06:09 PT 25.7 H (10.0-12.5) sec INR 2.6 H (<1.2) Microbiology - Last 24 Hours (Table) 07/27/24 02:20 Blood Culture - Final Blood Assessment and Plan (1) Acute pyelonephritis Current Visit: Yes Status: Acute Code(s): N10 - ACUTE PYELONEPHRITIS SNOMED Code(s): 15488675 (2) Sepsis Current Visit: Yes Status: Acute Code(s): A41.9 - SEPSIS, UNSPECIFIED ORGANISM SNOMED Code(s): 43753969 (3) Leukocytosis Current Visit: No Status: Acute Code(s): D72.829 - ELEVATED WHITE BLOOD CELL COUNT, UNSPECIFIED SNOMED Code(s): 851265046 Plan: 1patient presented to hospital with sepsis in this patient with fever elevated white count source is complicated UTI as the patient did have a left-sided ureteral stone requiring cystoscopy and ureteral stent placement last urine culture positive for VRE and Pseudomonas aeruginosa that was on 07/08/2024 2urine culture growing Proteus as well as Enterococcus faecium/VRE, 3patient with diarrhea, stool for C. difficile has been negative continue with the [facility] for symptomatic relief probiotic and yogurt intake, 4patient has shown clinical improvement with daptomycin and Rocephin, patient will be able to finish therapy with oral Ceftin and Zyvox x 10 days on discharge, prescription has been again sent to his pharmacy Dictation was produced using [employer] dictation software. please excuse any gram matical, word or spelling errors.
--- NOTE | 2024-08-01 14:40 | P.PN ---
Subjective Progress Note Date: 08/01/24 This is a 83-year-old male patient was being seen in recovery. The patient presented to the hospital with altered mentation and fever. The patient is known to have multiple medical problems and comorbidities. He has had previous episodes of urine tract infection and urinary sepsis and nephrolithiasis and the patient has a complicated history of left distal ureteral calculus approximately a month ago with a complicated urine tract infection with Enterobacter and at that time the patient was seen by Dr. Asher who performed a ureteroscopy and removal of a ureteral calculus and the patient was treated with antibiotics and he was discharged home. During this current admission, the patient was found to be septic with a white cell count of 38 and he also had an acute kidney injury with a creatinine of 1.6 which is higher compared to his baseline. His lactic acid level was at 4.3. UA was abnormal consistent with UTI with more than 192 white cells and 20 RBCs. Urine cultures and blood cultures were sent. CAT scan of the abdomen was also done that showed evidence of a obstructive distal left ureteral stone with moderate degree of left-sided hydronephrosis and hydroureter consistent with urinary obstruction. Based on that, the patient was taken to the operating room by urology and the patient underwent a left ureteral stent insertion and cystoscopy. Postop, the patient was seen in recovery. The patient was started on pressors and he was receiving norepinephrine at 0.05 mcg/kg/min. He is also on normal saline at rate of 125 cc an hour. He is on oxygen at 2 L/min nasal cannula. His cardiac rhythm is paced. The patient is known to have also moderate pericardial effusion that was also seen on the CAT scan of the abdomen and the pericardial effusion based on the CAT scan images seems to be stable and the patient does not have any tamponade physiology. This is also confirmed on the previous echocardiogram. The patient is also known to have hypertension hyperlipidemia and paroxysmal atrial fibrillation maintained on warfarin on outpatient basis. He is known to have prostate cancer that was treated with radiation therapy and he has sick sinus syndrome and has a perma nent pacemaker in place. He has diastolic heart failure with moderate aortic regurgitation and moderate mitral valve regurgitation and previous history of C. difficile colitis back in May 2024. 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 Quit smoking approximately 30 to 40 years ago. Based on previous urinary cultures, the patient had growth with Pseudomonas aeruginosa and VRE based on the urine cultures were obtained on 07/08/2024. 07/28/2024, the patient is not having any specific complaints. No abdominal pain. No altered mentation. Hemodynamically stable and the patient has been taken off pressors. He remains on a combination of cefepime and daptomycin and the patient is also on normal saline at 125 cc an hour. Cultures are still pending for now. The patient had a complicated urine tract infection with sepsis and ob structive uropathy and the patient is status post double-J stent insertion for a left ureteral stent. The urine culture is showing gram-negative bacillus. The white cell count today is at 36 with a hemoglobin 10.2 and a platelet count of 282. BUN is 27 with a creatinine of 1.7 and sodium levels at 138. Urology is on the case. No focal neurological deficits for now. The patient's INR from yesterday was at 2.1. Repeat PT/INR is pending from today. Urine output is adequate. Awake and alert. Repeat echocardiogram was done on 07/27/2023 and the patient has normal LV function with an EF of around 55%, moderate LVH, small circumferential pericardial effusion with moderate left posterior lateral pericardial effusion without any signs of tamponade On 07/29/2024, the patient is being seen for a follow-up. Doing well. No specific complaints. Hemodynamically stable. Afebrile. No nausea vomiting or emesis. White cell count down to 22 with a hemoglobin 10.4. Creatinine is also improving is down to 1.39 with a BUN of 25 and a sodium levels at 140. INR is at 1.7. Urine culture is positive for Proteus Mirabella's and Enterococcus faecium. Antibiotic coverage for now is with IV cefepime. The patient is post double-J stent insertion for a complicated urine tract infection with sepsis. No other significant events overnight. Awake and alert and communicating. He is feeling generalized weakness. No other specific complaints. Aguilar catheter remains in place. The patient will be started back on anticoagulation with warfarin as the patient's INR subtherapeutic and is being given for chronic atrial fibrillation. On 07/30/2024, the patient is being seen for a follow-up. Doing well and resting comfortably in bed. Remains on a combination of Rocephin and daptomycin as the patient had a combination of Proteus and VRE urine tract infection. The patient is status post double-J stent insertion for obstructive uropathy. White cell count is down to 10.8 with a hemoglobin 9.5 and a platelet count of 283. Sodium is at 139, bicarb is at 19 with a BUN of 18 and creatinine is down to 1.2. No respiratory distress. Hemodynamically stable. Currently on room air oxygen. Tolerating his diet. No nausea vomiting or abdominal pain. ID is on the case. The patient remains on broad-spectrum antibiotics. On 07/31/2024, no new complaints and the patient remains on a combination of daptomycin and and Rocephin. Afebrile. No new labs are available from today. Viral 4 Plex has been negative. INR is at 2.4. Hemodynamically stable. No respiratory difficulties and the patient is currently on 2 L of oxygen by nasal cannula with a pulse ox of 98%. No other significant events overnight. On 08/01/2024, the patient is being seen for a follow-up. No new complaints. The plan is to discharge this patient with oral antibiotics. The choice of antibiotics will be Ceftin and Zyvox. PT/INR is therapeutic. The patient is currently on 2 L of oxygen by nasal cannula with pulse ox of 97%. He will be going to follow-up to with urology on outpatient basis. Awake and alert and hemodynamically stable. Objective - Vital Signs Vital signs: Vital Signs Temp 98.6 F 08/01/24 11:55 Pulse 55 L 08/01/24 11:55 Resp 16 08/01/24 11:55 BP 127/61 08/01/24 11:55 Pulse Ox 97 08/01/24 11:55 FiO2 Intake & Output 07/31/24 08/01/24 08/01/24 18:59 06:59 18:59 Intake Total 1080 240 Output Total 1000 600 Balance 80 -360 Intake: Oral 1080 240 Output: Urine 1000 600 Other: Voiding Method Indwelling Catheter Indwelling Catheter Indwelling Catheter # Bowel Movements 3 1 - Exam GENERAL EXAM: Alert, 83-year-old male patient, on room air, in no apparent distress. The patient is currently on 2 L of oxygen by nasal cannula. HEAD: Normocephalic. EYES: Normal reaction of pupils, equal size. NOSE: Clear with pink turbinates. THROAT: No erythema or exudates. NECK: No masses, no JVD. CHEST: No chest wall deformity. LUNGS: Equal air entry with no crackles, wheeze, rhonchi or dullness. CVS: S1 and S2 normal with no audible murmur, regular rhythm. The cardiac rhythm is paced at this point in time, V pacing ABDOMEN: No hepatosplenomegaly, normal bowel sounds, no guarding or rigidity. SPINE: No scoliosis or deformity SKIN: No rashes CENTRAL NERVOUS SYSTEM: Altered mentation, neurologic exam is nonfocal and the patient is moving all 4 extremities. EXTREMITIES: There is no peripheral edema. No clubbing, no cyanosis. Peripheral pulses are intact. - Labs CBC & Chem 7: 07/30/24 03:21 07/30/24 03:21 Labs: Abnormal Lab Results - Last 24 Hours (Table) 08/01/24 Range/Units 06:09 PT 25.7 H (10.0-12.5) sec INR 2.6 H (<1.2) Microbiology - Last 24 Hours (Table) 07/27/24 02:20 Blood Culture - Final Blood Assessment and Plan Plan: Acute sepsis with secondary hypotension secondary to a complicated urinary tract infection. Hemodynamically stable off pressors. UTI with Proteus mirabilis and Enterococcus faecium, currently on IV Rocephin and daptomycin Left renal pyelonephritis secondary to obstructive uropathy related to a left ureteral stone and secondary hydronephrosis, status post double-J stent insertion and the patient is currently on IV ABX Left hydronephrosis, secondary to left renal/distal ureteral calculus and the patient is status post cystoscopy and double-J tube insertion and the patient is currently postop day # 5 Acute kidney injury, creatinine is improving Leukocytosis, improving Hypotension secondary to above, currently off norepinephrine History of recurrent urinary tract infections, currently has a Aguilar catheter in place. prostate cancer with previous radiation therapy and TURP Diverticulosis without acute diverticulitis Acute lactic acidosis, improved Pericardial effusion, small to moderate-sized previous echocardiogram from 05/30/2024 showed preserved LV function with an ejection fraction of 55 to 60% along with severe RV dilatation and the patient is known to have a mild pericardial effusion without any signs of tamponade based on previous echocardiogram. Repeat echocardiogram shows moderate-sized pericardial effusion without any signs of tamponade on 07/27/2024. History of present C. difficile colitis, currently inactive and stable Paroxysmal atrial fibrillation anticoagulated with warfarin , current rhythm is paced Permanent pacemaker History of hypertension History of hyperlipidemia History of renal stones with previous lithotripsy Obesity, with a BMI of 38.7 kg/m Stage 2 coccyx and hip wounds Plan Urine cultures positive for Proteus and Enterococcus faecium and the patient is to be discharged on a course of Ceftin and Zyvox Continue anticoagulation with warfarin, PT/INR is therapeutic at 2.6 Flomax IV Protonix White cell count is improving Creatinine is improving Monitor mental status improved Repeat echo was noted Discharge today. Pulmonary critical care services will sign off
[2024-08-01] MEDS ORDERED: WARFARIN 2.5 MG TAB PO ONE (18:00)
== END 2024-08-01 16:24 | disposition home health service (06) | DRG 853 ==
LOC: EC 02:01 → 2SICU 04:40 → 3SCARD 11:50 → 2SICU 13:44 → 5NMEDONC 07-29 08:30
PROVIDERS: ADMIT Hospitalist; ATTEND Hospitalist
PROC: 3E043XZ Introduction of Vasopressor into Central Vein, Percutaneous Approach (ICD-10-PCS; 2024-07-27)
PROC: 0T778DZ Dilation of Left Ureter with Intraluminal Device, Via Natural or Artificial Opening Endoscopic (ICD-10-PCS; principal; 2024-07-27 07:30)
DX: A41.81 Sepsis due to Enterococcus (principal); R65.21 Severe sepsis with septic shock; N10 Acute pyelonephritis; N17.9 Acute kidney failure, unspecified; Z16.21 Resistance to vancomycin; E87.20 Acidosis, unspecified; I13.0 Hypertensive heart and chronic kidney disease with heart failure and stage 1 through stage 4 chronic kidney disease, or unspecified chronic kidney disease; I31.39 Other pericardial effusion (noninflammatory); I50.32 Chronic diastolic (congestive) heart failure; N13.6 Pyonephrosis; J98.11 Atelectasis; A41.59 Other Gram-negative sepsis; A41.52 Sepsis due to Pseudomonas; N20.0 Calculus of kidney; E66.9 Obesity, unspecified; R19.7 Diarrhea, unspecified; E78.5 Hyperlipidemia, unspecified; L89.152 Pressure ulcer of sacral region, stage 2; I08.0 Rheumatic disorders of both mitral and aortic valves; I48.0 Paroxysmal atrial fibrillation; I49.5 Sick sinus syndrome; Z20.822 Contact with and (suspected) exposure to COVID-19; N18.9 Chronic kidney disease, unspecified; R32 Unspecified urinary incontinence; N40.1 Benign prostatic hyperplasia with lower urinary tract symptoms; Z87.442 Personal history of urinary calculi; Z79.899 Other long term (current) drug therapy; Z79.01 Long term (current) use of anticoagulants; Z86.19 Personal history of other infectious and parasitic diseases; Z85.46 Personal history of malignant neoplasm of prostate; Z86.73 Personal history of transient ischemic attack (TIA), and cerebral infarction without residual deficits; Z87.440 Personal history of urinary (tract) infections; Z87.891 Personal history of nicotine dependence; Z92.3 Personal history of irradiation; Z95.0 Presence of cardiac pacemaker; Z99.3 Dependence on wheelchair
CPT/HCPCS: 36415; 71045; 74176; 80048; 80053; 81001; 83605; 83735; 85025; 85027; 85610; 85730; 87040; 87077; 87086; 87186; 87324; 87636; 93005; 93308; 94760; 96361; 96365; 96366; 96367; 96368; 99291

== ENCOUNTER 2024-11-18 06:47 | Day surgery (SDC) | payer MEDICARE, BC, OTHER ==
--- NOTE | 2024-11-17 09:05 | P.GSHP ---
History of Present Illness H&P Date: 11/17/24 -year-old gentleman with a history of kidney stones. He had a cystoscopy with left ureteral stent placement in June for an obstructing stone urinary tract infection with sepsis. Comes for formal stone and stent removal risk complications and alternatives have been discussed - Constitutional Constitutional: Denies chills, Denies fever - EENT Eyes: denies blurred vision, denies pain Ears, nose, mouth and throat: Denies headache, Denies sore throat - Cardiovascular Cardiovascular: Denies chest pain, Denies shortness of breath - Respiratory Respiratory: Denies cough, Denies 7 - Gastrointestinal Gastrointestinal: Denies abdominal pain, Denies diarrhea, Denies nausea, Denies vomiting - Genitourinary (Female) Genitourinary: Denies dysuria, Denies hematuria - Genitourinary (Male) Genitourinary: Denies dysuria, Denies hematuria - Musculoskeletal Musculoskeletal: Denies myalgias - Integumentary Integumentary: Denies pruritus, Denies rash - Neurological Neurological: Denies numbness, Denies weakness - Psychiatric Psychiatric: Denies anxiety, Denies depression - Endocrine Endocrine: Denies fatigue, Denies weight change Past Medical History Past Medical History: Atrial Fibrillation, Cancer, Heart Failure, CVA/TIA, GERD/Reflux, Hyperlipidemia, Hypertension, Prostate Disorder Additional Past Medical History / Comment(s): tia-2004, arthritis, enlarged prostate, prostate CA 2014(radiation), hx shingles, kidney stone. Hx. 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 Type of Cardiac Device: Permanent Pacemaker Device Placement Date:: 2013, for sick sinus syndrome Smoking Status: Former smoker - Past Family History Father Family Medical History: Diabetes Mellitus Additional Family Medical History / Comment(s): History of etoh, brain tumor Mother Family Medical History: Osteoarthritis (OA) Additional Family Medical History / Comment(s): arthritis, Parkinson disease Medications and Allergies Home Medications Medication Instructions Recorded Confirmed Type Potassium Chloride ER [K-Dur 10] 10 meq PO DAILY 03/18/24 11/13/24 History Nystatin 100,000 Unit/gm Powd 1 applic TOPICAL BID 04/30/24 11/13/24 History [Mycostatin Powder] Warfarin [Coumadin] 2.5 mg PO SUTUTH@2100 04/30/24 11/13/24 History Warfarin [Coumadin] 5 mg PO MOWEFRSA@2100 04/30/24 11/13/24 History Sodium Bicarbonate Tab 650 mg PO BID #60 tab 05/12/24 11/13/24 Rx Tamsulosin [Flomax] 0.4 mg PO HS 09/08/24 11/13/24 History Acetaminophen 2 tab PO Q6H PRN 11/13/24 11/13/24 History Cholestyramine (with Sugar) 4 gm PO QID@1000,1300,1800,2200 PRN 11/13/24 11/13/24 History [Questran Packet] Megestrol Acetate 80 mg PO DAILY 11/13/24 11/13/24 History Menthol [Icy Hot] 1 dose TOPICAL DAILY 11/13/24 11/13/24 History Allergies Allergy/AdvReac Type Severity Reaction Status Date / Time No Known Allergies Allergy Verified 11/13/24 14:00 Results - Imaging Abdominal x-ray: report reviewed, image reviewed CT scan - abdomen: report reviewed, image reviewed CT scan - pelvis: report reviewed, image reviewed Assessment and Plan Assessment: Impression: Left ureteral and renal stones Recommendations: cystoscopy left ureteroscopy laser lithotripsy
[~2024-11-18 06:47] MED LIST changes: +DEXAMETHASONE SOD PHOSPHATE 4 MG/ML 1 ML VIAL IV ONE; +GENTAMICIN 140 MG in SODIUM CHLORIDE 0.9% 100 ML IVPB PRN; -GENTAMICIN 150 MG in SODIUM CHLORIDE 0.9% 100 ML IVPB PRN; -LEVOFLOXACIN 500MG-D5W PMX 500 MG in DEXTROSE/WATER 1 100ML.BAG IVPB STA; -LIDOCAINE 1% (10MG/ML) FOR IV START INTRADERMA PRN; -LIDOCAINE 1% INJ 10MG/ML (20 ML MDV) ONE; +ONDANSETRON 4 MG/2 ML VIAL IVP ONE; -PHENYLEPHRINE 10 MG/ML VIAL ONE; -PROPOFOL 10 MG/ML 20 ML VIAL IV ONE; -ROCURONIUM 10 MG/ML (5 ML VIAL) IV ONE; -SUCCINYLCHOLINE CHLORIDE 200 MG/10 ML VIAL IV ONE; -droPERidol 5 MG/2 ML VIAL IVP ONE; -ePHEDrine 50 MG/ML 1 ML VIAL ONE; +fentaNYL (PF) 50 MCG/ML 2 ML AMP IV PRN; -fentaNYL (PF) 50 MCG/ML 2 ML AMP ONE
--- NOTE | 2024-11-18 07:52 | XR ---
EXAMINATION TYPE: XR KUB DATE OF EXAM: 11/18/2024 7:46 AM COMPARISON: 07/13/2024 CLINICAL INDICATION: Male, 84 years old with history of N20.1 left ureteral stone, TECHNIQUE: Single view of the abdomen. FINDINGS: Right renal calculi: None Visualized. Right ureteral calculi: None Visualized. Left renal calculi: None Visualized. Left ureteral calculi: Left ureteral stent noted to be in place. No visible calculi seen along the c ourse of the stent. Pelvic calcifications: Multiple pelvic calcifications which likely reflects phlebolith formation. Bowel gas pattern is unremarkable. No free air. No mass effects. IMPRESSION: 1. Left ureteral stent noted to be in place. No visible calculi seen along the course of the stent. [facility], , 11/18/2024 7:49 AM
[2024-11-18] MEDS: LACTATED RINGERS 1,000 ML IV SCH (08:04)
[2024-11-18] MEDS: ONDANSETRON 4 MG/2 ML VIAL IVP STA (08:13)
[2024-11-18] MEDS: DEXAMETHASONE SOD PHOSPHATE 4 MG/ML 1 ML VIAL IVP STA (08:14)
[2024-11-18] MEDS: AMPICILLIN 1,000 MG in SODIUM CHLORIDE 0.9% 50 ML IVPB PRN (08:19)
[2024-11-18] MEDS ORDERED: LIDOCAINE 1% INJ 10MG/ML (20 ML MDV) ONE (08:23)
[2024-11-18] MEDS ORDERED: PROPOFOL 10 MG/ML 20 ML VIAL IV ONE (08:23)
[2024-11-18] MEDS ORDERED: PHENYLEPHRINE-0.9% NACL SYG 1,000 MCG/10 ML SYRINGE ONE (08:23)
[2024-11-18] MEDS ORDERED: fentaNYL (PF) 50 MCG/ML 2 ML AMP ONE (08:23)
[2024-11-18] MEDS: IV FLUID CONTINUATION 1,000 ML IV ONE (08:25)
[2024-11-18 08:28] LABS: INR 1.2 (<1.2); Prothrombin Time 12.5 sec (10.0-12.5)
[2024-11-18] MEDS: IOHEXOL 350 MG/ML 100 ML in EMPTY BAG 1 BAG IRRIGATION ONE (09:10)
[2024-11-18] MEDS: LACTATED RINGERS 1,000 ML IV ONE (09:39)
[2024-11-18 09:58] VITALS: TEMP 96.8
--- NOTE | 2024-11-18 09:59 | FL ---
EXAMINATION TYPE: FL urography retrograde DATE OF EXAM: 11/18/2024 COMPARISON: NONE HISTORY: Cysto for left kidney stone TECHNIQUE: Fluoroscopy. FINDINGS: retrograde urography for left kidney stones and stent insertion FL: 1.[id number] Orellana IMPRESSION: As Above. [facility], , 11/18/2024 9:57 AM
--- NOTE | 2024-11-18 10:03 | P.OP ---
Date of Procedure: 11/18/24 Preoperative Diagnosis: Left ureteral stone Postoperative Diagnosis: Left ureteral and renal stones Procedure(s) Performed: Cystoscopy, left ureteroscopy with laser lithotripsy, replacement of 6 x 26 double-J catheter Anesthesia: SHIRA Surgeon: Jaskaran Orellana Estimated Blood Loss (ml): 0 Pathology: none sent Condition: stable Disposition: PACU Indications for Procedure: The patient is 84. He is immobilized and bedridden. He has chronic infection. He had a stent placed by Dr. Nguyen a few months ago for an obstructing ureteral stone. Due to health issues he has not come back until now for stone and stent removal. Description of Procedure: Patient brought to the operating suite. Given a general anesthetic. Placed lithotomy position with sterile prep and drape. The patient has chronic most cyst. He has had a previous dorsal slit that allows me to pass the scope into the bladder. Passed to the ant urethra is normal. The prostatic urethra shows previous workup. Upon entering the bladder is severely trabeculated. There is a lot of mucosal debris in the bladder. The stent is identified eventually grasped and pulled to the urethral meatus. An 035 wire was then passed through the stent into the left kidney. Over the wire is passed an 11-13 [place] reentry sheath. The inner sheath is removed. I passed the flexible ureteroscope up into the kidney. There is a lot of mucosal debris. I tediously go through each calyx. Identified 3-4 small stones that are broken with a 200 m laser probe. Doing intraoperative nephrostogram and make sure I have entered each calyx and I have. I do pullout ureteroscopy to the very distal ureter. There is the previous ureteral stone that is seen and it is flushed out of the ureter. I elected to replace the stent for 48 hours. Through the ureteral sheath an 035 wire was passed up into the kidney. Is backloaded on the cystoscope. Over the wire is then passed a 6 x 26 double-J catheter the coils in the renal pelvis and the bladder. The string is left on for removal. A 16 Pal[place] Aguilar catheter was placed. The patient waken returned to cart room.
[2024-11-18 11:45] VITALS: BP 141/78; PULSE 62; RESP 18
== END 2024-11-18 11:53 ==
LOC: OR 06:47
PROVIDERS: ATTEND Urology
DX: N20.2 Calculus of kidney with calculus of ureter (principal); M19.90 Unspecified osteoarthritis, unspecified site; I11.0 Hypertensive heart disease with heart failure; I50.9 Heart failure, unspecified; I48.91 Unspecified atrial fibrillation; E78.5 Hyperlipidemia, unspecified; K21.9 Gastro-esophageal reflux disease without esophagitis; Z85.46 Personal history of malignant neoplasm of prostate; Z86.73 Personal history of transient ischemic attack (TIA), and cerebral infarction without residual deficits; Z87.891 Personal history of nicotine dependence; Z90.49 Acquired absence of other specified parts of digestive tract; Z95.0 Presence of cardiac pacemaker; Z98.890 Other specified postprocedural states; Z79.01 Long term (current) use of anticoagulants; Z79.1 Long term (current) use of non-steroidal anti-inflammatories (NSAID); Z79.899 Other long term (current) drug therapy
CPT/HCPCS: 85610; 85730; 74420; 74018; 52356; C2625; J1100; J2405; J2003; J3010; J0290; J2704; Q9967; J2371

== ENCOUNTER 2025-02-11 08:47 | Inpatient (IN) | payer MEDICARE, OTHER ==
--- NOTE | 2025-02-11 09:23 | ED ---
Recheck HPI - General Chief Complaint: Recheck/Abnormal Lab/Rx Stated Complaint: Abn Labs Time Seen by Provider: 02/11/25 09:23 Source: patient, RN notes reviewed, old records reviewed, Caregiver Mode of arrival: ambulatory Limitations: no limitations - History of Present Illness Initial Comments: 84-year-old male presented the ER for evaluation of weakness. Patient presents with [facility] staff. Per staff patient had routine laboratory studies completed yesterday and patient was found to have a hgb of 6.1, hct 19.6 and potassium of 6.2. Staff reports they are looking for an infection with an unknown source. Staff reports they presented to the hospital to have blood cultures drawn given events. Patient reports for the past 4 to 5 months he has been extremely weak and fatigued. He denies any fevers, myalgias, body aches, chest pain, shortness of breath, dizziness, lightheadedness, abdominal pain, constipation/diarrhea, hematochezia, melena, hematuria, dysuria. Patient does state he takes Coumadin for history of atrial fibrillation. He denies a history of requiring blood transfusion. - Related Data Home Medications Medication Instructions Recorded Confirmed Potassium Chloride ER [K-Dur 10] 10 meq PO DAILY 03/18/24 02/11/25 Tamsulosin [Flomax] 0.4 mg PO HS 09/08/24 02/11/25 Acetaminophen 1,000 tab PO Q6H PRN 11/13/24 02/11/25 Megestrol Acetate 80 mg PO DAILY 11/13/24 02/11/25 Apixaban [Eliquis] 5 mg PO BID 02/11/25 02/11/25 Docusate [Colace] 100 mg PO DIRECTED 02/11/25 02/11/25 Docusate [Colace] 100 mg PO BID@0700,1900 02/11/25 02/11/25 Ertapenem [INVanz] 1 gm IVPB DAILY 02/11/25 02/11/25 Fluoride (Sodium) [Sodium Fluoride 1 applic DENTAL HS 02/11/25 02/11/25 5000 Plus] Fluticasone Nasal [place] [Flonase 1 spray EA NOSTRIL DAILY 02/11/25 02/11/25 Nasal [place]] Loratadine [Claritin] 10 mg PO DAILY 02/11/25 02/11/25 Polymyxin B-Trimeth Sulf Ophth 1 drop RIGHT EYE QID@07,13,19,23 02/11/25 02/11/25 [Polytrim Opthalmic] Simethicone Chew [Mylicon Chew] 80 mg PO Q8H PRN 02/11/25 02/11/25 Tetracycline HCl 500 mg PO QID@05,11,17,23 02/11/25 02/11/25 Vancomycin HCl [Vancomycin HCl 125 mg PO DAILY 02/11/25 02/11/25 Oral Soln] Previous Rx's Medication Instructions Recorded Sodium Bicarbonate Tab 650 mg PO BID #60 tab 05/12/24 Allergies Allergy/AdvReac Type Severity Reaction Status Date / Time No Known Allergies Allergy Verified 02/11/25 11:39 Review of Systems ROS Statement: Those systems with pertinent positive or pertinent negative responses have been documented in the HPI. ROS Other: All systems not noted in ROS Statement are negative. Past Medical History Past Medical History: Atrial Fibrillation, Cancer, Heart Failure, CVA/TIA, GERD/Reflux, Hyperlipidemia, Hypertension, Prostate Disorder Additional Past Medical History / Comment(s): tia-2004, arthritis, enlarged prostate, prostate CA 2014(radiation), hx shingles, kidney stone. Hx. 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 Type of Cardiac Device: Permanent Pacemaker Device Placement Date:: 2013, for sick sinus syndrome Past Psychological History: No Psychological Hx Reported Smoking Status: Former smoker Past Alcohol Use History: None Reported Past Drug Use History: None Reported - Past Family History Father Family Medical History: Diabetes Mellitus Additional Family Medical History / Comment(s): History of etoh, brain tumor Mother Family Medical History: Osteoarthritis (OA) Additional Family Medical History / Comment(s): arthritis, Parkinson disease General Exam Limitations: no limitations General appearance: alert, in no apparent distress, other (Pale and ill- appearing) Head exam: Present: atraumatic, normocephalic, normal inspection Eye exam: Present: normal appearance, PERRL, EOMI. Absent: scleral icterus, conjunctival injection, periorbital swelling ENT exam: Present: normal oropharynx, mucous membranes dry Respiratory exam: Present: normal lung sounds bilaterally. Absent: respiratory distress, wheezes, rales, rhonchi, stridor Cardiovascular Exam: Present: regular rate, normal rhythm, normal heart sounds. Absent: systolic murmur, diastolic murmur, rubs, gallop, clicks GI/Abdominal exam: Present: soft, normal bowel sounds. Absent: distended, tenderness, guarding, rebound, rigid Neurological exam: Present: alert, oriented X3, CN II-XII intact Skin exam: Present: warm, dry, intact, pallor, other (Stage I decubitus ulcer noted to rectum) Course Vital Signs 02/11/25 02/11/25 02/11/25 08:56 11:59 12:00 Temperature 97.9 F Pulse Rate 74 60 65 Respiratory 18 16 Rate Blood Pressure 122/68 139/49 O2 Sat by Pulse 99 100 Oximetry 02/11/25 02/11/25 02/11/25 12:13 13:38 14:54 Temperature Pulse Rate 60 63 61 Respiratory 18 18 Rate Blood Pressure 110/95 111/46 O2 Sat by Pulse 98 98 Oximetry - Reevaluation(s) Reevaluation #1: 02/11/25 14:13 Case discussed with on-call urology, Dr. Orellana, he is agreeable to be on consult. He is requesting patient to be n.p.o. for possible intervention Reevaluation #2: 02/11/25 14:24 Case discussed with on-call nephrology, , who is agreeable to consult. Requesting maintenance fluids at 75 cc/h. Reevaluation #3: 02/11/25 14:29 Case discussed with accepting admitting physician, Dr. Knott. Reevaluation #4: 02/11/25 14:54 Dr. Orellana called and requesting consent for cystoscopy and double J catheter placement. NPO diet and plan on surgical intervention later today. Procedural schedule and consent ordered per urology request. Medical Decision Making - Medical Decision Making Was pt. sent in by a medical professional or institution (Dr., PA, VACUUM TANK TENDER, urgent care, hospital, or long-term...) When possible be specific @ -Patient sent by [facility] for evaluation of abnormal laboratory studies and blood cultures. Yesterday hemoglobin 6.1, potassium 6.2. Did you speak to anyone other than the patient for history (EMS, parent, family, police, friend...)? What history was obtained from this source @ -D[facility] aiding in HPI and PMHX. Did you review nursing and triage notes (agree or disagree)? Why? @ -I reviewed and agree with nursing and triage notes Were old charts reviewed (outside hosp., previous admission, EMS record, old EKG, old radiological studies, urgent care reports/EKG's, long-term records)? Report findings @ -[Discharge summary from 08/27/24 patient admitted for continued diarrhea and found to be C. difficile positive. Patient ultimately discharged home with 24/ home care. I also reviewed discharge summary from 08 31 24. Patient admitted for acute influenza infection. Patient discharged to [facility] for rehab. Differential Diagnosis (chest pain, altered mental status, abdominal pain women, abdominal pain men, vaginal bleeding, weakness, fever, dyspnea, syncope, headache, dizziness, GI bleed, back pain, seizure, CVA, palpatations, mental health, musculoskeletal)? @ -Differential Weakness:Hypoglycemia, shock, sepsis, hyponatremia, anemia, infection, [place], ETOH, adverse medicine reaction, overdose, stroke, this is not meant to be an all-inclusive list. EKG interpreted by me (3pts min.). @ -[As above X-rays interpreted by me (1pt min.). @ -[CXR interpreted me negative for focal consolidations or pneumothorax. Cardiomegaly noted. CT interpreted by me (1pt min.). @ -CT abdomen pelvis showing development of severe bilateral hydroureteronephrosis of the level of UVJ. Without obstructing calculus. Abnormal wall thickening of urinary bladder with Aguilar catheter in place. There is soft tissue fat stranding and thickening of the region of prostate gland and urinary bladder. Eccentric circumferential wall thickening of the rectum with presacral edema correlate for possible proctitis versus underlying mass. Pancolitis diverticulosis without evidence of acute diverticulitis. U/S interpreted by me (1pt. min.). @ -[None done What testing was considered but not performed or refused? (CT, X-rays, U/S, labs)? Why? @ -None What meds were considered but not given or refused? Why? @ -None Did you discuss the management of the patient with other professionals (professionals i.e. , PA, VACUUM TANK TENDER, lab, RT, psych nurse, pediatric social worker, senior research engineer, teacher, school resource officer, bilingual case manager)? Give summary @ -Yes, Case discussed with on-call urology, Dr. Orellana. He is agreeable to consult he is requesting patient to be n.p.o. as he plans on surgical intervention with cystoscopy and double-J catheter placement later today. Case also discussed with on-call nephrology, , she is requesting maintenance fluids at 75 cc/h. Accepting physician Dr. Knott. Was smoking cessation discussed for >3mins.? @ -No Was critical care preformed (if so, how long)? @ -No Were there social determinants of health that impacted care today? How? (Homelessness, low income, unemployed, alcoholism, drug addiction, transp ortation, low edu. Level, literacy, decrease access to med. care, fpc, rehab)? @ -Patient currently resides at [facility] Was there de-escalation of care discussed even if they declined (Discuss DNR or withdrawal of care, Hospice)? DNR status @ -No What co-morbidities impacted this encounter? (DM, HTN, Smoking, COPD, CAD, Cancer, CVA, ARF, Chemo, Hep., AIDS, mental health diagnosis, sleep apnea, morbid obesity)? @ -Atrial fibrillation on warfarin, prostate cancer, history of CHF, GERD, hypertension, hyperlipidemia, advanced age Was patient admitted / discharged? Hospital course, mention meds given and route, prescriptions, significant lab abnormalities, going to OR and other pertinent info. @ -Admitted. 84-year-old male presented the ER for evaluation of abnormal labs. Upon arrival vital signs stable patient no signs of acute distress but is ill and pale appearing. Upon arrival vital signs stable. Laboratory studies obtained remarkable for WBC 13.5 with left shift. Hemoglobin 7.1. Potassium 6.4, chloride 109, carbon dioxide 9. PARK with a BUN of 91, creatinine 8.1 with a GFR of 5. This is significantly decreased from prior. Troponin 0.047, possibly secondary to PARK will trend. EKG showing a ventricular paced rhythm with no acute ST segment elevations, depressions or T wave abnormalities. Urinalysis showing 21 WBCs and large leukocyte esterases this will be sent for culture. Viral swabs negative. Given PARK with patient's past medical history significant of urinary retention Aguilar catheter was placed. There was little to no urinary output noted in catheter bag. Patient provided with 500 mL IV fluid bolus in emergency department. Hyperkalemia treated with nebulized albuterol, 10 units IV insulin and dextrose along with Lokelma. Patient also received 1 am p sodium bicarbonate. CT abdomen pelvis showing development of severe bilateral hydroureteronephrosis at the level UTI without obstructing calculus. Abnormal wall thickening of the urinary bladder with soft tissue fat stranding and thickening in the region of the prostate gland and urinary bladder concerning of underlying mass versus infection process. Eccentric circumferential wall thickening of the rectum with presacral edema. Patient started on IV Rocephin and blood cultures obtained. Case was discussed with on-call urology, , who plans on surgical intervention later today. He is requesting patient to be NPO. Procedural schedule and consent ordered per urology request. Case also discussed with Dr. Scott on-call nephrology who will be on consult. Accepting physician, Dr. Knott, [facility]. Upon reevaluation, patient's family updated on laboratory and CT findings, all questions answered. They are agreeable for admission and planned surgical intervention. Patient remained stable throughout emergency department stay. Case discussed with ED attending, . Undiagnosed new problem with uncertain prognosis? @ -No Drug Therapy requiring intensive monitoring for toxicity (Heparin, Nitro, Insulin, Cardizem)? @ -No Were any procedures done? @ -No Diagnosis/symptom? @ -PARK/ hyperkalemia/ bilateral hydroureteronephrosis/ r/o proctitis versus underlying mass/ elevated troponin/ anemia Acute, or Chronic, or Acute on Chronic? @ -Acute Uncomplicated (without systemic symptoms) or Complicated (systemic symptoms)? @ -Complicated Side effects of treatment? @ -No Exacerbation, Progression, or Severe Exacerbation? @ -No Poses a threat to life or bodily function? How? (Chest pain, USA, [place], pneumonia, PE, COPD, DKA, ARF, appy, cholecystitis, CVA, Diverticulitis, Homicidal, Suicidal, threat to staff... and all critical care pts) @ -Yes, kidney failure can also lead to electrolyte abnormalities which can lead to lethal cardiac arrhythmias - Lab Data Result diagrams: 02/11/25 09:37 02/11/25 09:37 Lab Results 02/11/25 02/11/25 02/11/25 Range/Units 09:37 09:37 09:37 WBC 13.50 H (4.50-10.00) 10*3/uL RBC 2.88 L (4.40-5.60) 10*6/uL Hgb 7.1 L (13.0-17.0) g/dL Hct 22.2 L (39.6-50.0) % MCV 77.1 L (80.0-97.0) fL MCH 24.7 L (27.0-32.0) pg MCHC 32.0 (32.0-37.0) g/dL Plt Count 431 (140-440) 10*3/uL MPV 9.8 (9.5-12.2) fL Immature Gran % (Auto) 0.7 % Neutrophils % 79.8 % Lymphocytes % 9.3 % Monocytes % 7.9 % Eosinophils % 1.9 % Basophils % 0.4 % Immature Gran # 0.10 H (0.00-0.04) 10*3/uL Neutrophils # 10.77 H (1.80-7.70) 10*3/uL Lymphocytes # 1.26 (0.90-5.00) 10*3/uL Monocytes # 1.06 H (0.20-1.00) 10*3/uL Eosinophils # 0.25 (0.04-0.35) 10*3/uL Basophils # 0.06 (0.00-0.10) 10*3/uL PT 13.7 H (10.0-12.5) sec INR 1.3 H (<1.2) APTT 38.8 H (22.0-30.0) sec Sodium (137-145) mmol/L Potassium (3.5-5.1) mmol/L Chloride (98-107) mmol/L Carbon Dioxide (22-30) mmol/L Anion Gap mmol/L BUN (9-20) mg/dL Creatinine (0.66-1.25) mg/dL Est GFR (CKD-EPI)AfAm (>60 ml/min/1.73 sqM) Est GFR (CKD-EPI)NonAf (>60 ml/min/1.73 sqM) Glucose (74-99) mg/dL Calcium (8.4-10.2) mg/dL Total Bilirubin (0.2-1.3) mg/dL AST (17-59) U/L ALT (4-49) U/L Alkaline Phosphatase (38-126) U/L Troponin I (0.000-0.034) ng/mL Total Protein (6.3-8.2) g/dL Albumin (3.5-5.0) g/dL Urine Color Yellow Urine Appearance Turbid (Clear) Urine pH 6.5 (5.0-8.0) Ur Specific [place] 1.017 (1.001-1.035) Urine Protein 1+ H (Negative) Urine Glucose (UA) Negative (Negative) Urine Ketones Negative (Negative) Urine Blood Large H (Negative) Urine Nitrite Negative (Negative) Urine Bilirubin Negative (Negative) Urine Urobilinogen 3.0 (<2.0) mg/dL Ur Leukocyte Esterase Large H (Negative) Urine RBC 4 (0-5) /hpf Urine WBC 21 H (0-5) /hpf Ur Squamous Epith Cells <1 (0-4) /hpf Urine Bacteria Rare H (None) /hpf Urine Mucus Rare H (None) /hpf Stool Occult Blood (Negative) Influenza Type A (PCR) (Not Detectd) Influenza Type B (PCR) (Not Detectd) RSV (PCR) (Not Detectd) SARS-CoV-2 (PCR) (Not Detectd) Blood Type Blood Type Recheck Bld Type Recheck Status Antibody Screen Spec Expiration Date 02/11/25 02/11/25 02/11/25 Range/Units 09:37 09:37 09:37 WBC (4.50-10.00) 10*3/uL RBC (4.40-5.60) 10*6/uL Hgb (13.0-17.0) g/dL Hct (39.6-50.0) % MCV (80.0-97.0) fL MCH (27.0-32.0) pg MCHC (32.0-37.0) g/dL Plt Count (140-440) 10*3/uL MPV (9.5-12.2) fL Immature Gran % (Auto) % Neutrophils % % Lymphocytes % % Monocytes % % Eosinophils % % Basophils % % Immature Gran # (0.00-0.04) 10*3/uL Neutrophils # (1.80-7.70) 10*3/uL Lymphocytes # (0.90-5.00) 10*3/uL Monocytes # (0.20-1.00) 10*3/uL Eosinophils # (0.04-0.35) 10*3/uL Basophils # (0.00-0.10) 10*3/uL PT (10.0-12.5) sec INR (<1.2) APTT (22.0-30.0) sec Sodium 138 (137-145) mmol/L Potassium 6.4 H* (3.5-5.1) mmol/L Chloride 109 H (98-107) mmol/L Carbon Dioxide 9 L* (22-30) mmol/L Anion Gap 20 mmol/L BUN 91 H (9-20) mg/dL Creatinine 8.10 H* (0.66-1.25) mg/dL Est GFR (CKD-EPI)AfAm 6 (>60 ml/min/1.73 sqM) Est GFR (CKD-EPI)NonAf 5 (>60 ml/min/1.73 sqM) Glucose 89 (74-99) mg/dL Calcium 8.9 (8.4-10.2) mg/dL Total Bilirubin 0.6 (0.2-1.3) mg/dL AST 40 (17-59) U/L ALT 16 (4-49) U/L Alkaline Phosphatase 65 (38-126) U/L Troponin I 0.047 H* (0.000-0.034) ng/mL Total Protein 6.7 (6.3-8.2) g/dL Albumin 3.0 L (3.5-5.0) g/dL Urine Color Urine Appearance (Clear) Urine pH (5.0-8.0) Ur Specific [place] (1.001-1.035) Urine Protein (Negative) Urine Glucose (UA) (Negative) Urine Ketones (Negative) Urine Blood (Negative) Urine Nitrite (Negative) Urine Bilirubin (Negative) Urine Urobilinogen (<2.0) mg/dL Ur Leukocyte Esterase (Negative) Urine RBC (0-5) /hpf Urine WBC (0-5) /hpf Ur Squamous Epith Cells (0-4) /hpf Urine Bacteria (None) /hpf Urine Mucus (None) /hpf Stool Occult Blood (Negative) Influenza Type A (PCR) (Not Detectd) Influenza Type B (PCR) (Not Detectd) RSV (PCR) (Not Detectd) SARS-CoV-2 (PCR) (Not Detectd) Blood Type O Positive Blood Type Recheck O Pos Bld Type Recheck Status No Antibody Screen NEGATIVE Spec Expiration Date 02/14/2025 - 233602/11/25 02/11/25 Range/Units 09:46 09:46 WBC (4.50-10.00) 10*3/uL RBC (4.40-5.60) 10*6/uL Hgb (13.0-17.0) g/dL Hct (39.6-50.0) % MCV (80.0-97.0) fL MCH (27.0-32.0) pg MCHC (32.0-37.0) g/dL Plt Count (140-440) 10*3/uL MPV (9.5-12.2) fL Immature Gran % (Auto) % Neutrophils % % Lymphocytes % % Monocytes % % Eosinophils % % Basophils % % Immature Gran # (0.00-0.04) 10*3/uL Neutrophils # (1.80-7.70) 10*3/uL Lymphocytes # (0.90-5.00) 10*3/uL Monocytes # (0.20-1.00) 10*3/uL Eosinophils # (0.04-0.35) 10*3/uL Basophils # (0.00-0.10) 10*3/uL PT (10.0-12.5) sec INR (<1.2) APTT (22.0-30.0) sec Sodium (137-145) mmol/L Potassium (3.5-5.1) mmol/L Chloride (98-107) mmol/L Carbon Dioxide (22-30) mmol/L Anion Gap mmol/L BUN (9-20) mg/dL Creatinine (0.66-1.25) mg/dL Est GFR (CKD-EPI)AfAm (>60 ml/min/1.73 sqM) Est GFR (CKD-EPI)NonAf (>60 ml/min/1.73 sqM) Glucose (74-99) mg/dL Calcium (8.4-10.2) mg/dL Total Bilirubin (0.2-1.3) mg/dL AST (17-59) U/L ALT (4-49) U/L Alkaline Phosphatase (38-126) U/L Troponin I (0.000-0.034) ng/mL Total Protein (6.3-8.2) g/dL Albumin (3.5-5.0) g/dL Urine Color Urine Appearance (Clear) Urine pH (5.0-8.0) Ur Specific [place] (1.001-1.035) Urine Protein (Negative) Urine Glucose (UA) (Negative) Urine Ketones (Negative) Urine Blood (Negative) Urine Nitrite (Negative) Urine Bilirubin (Negative) Urine Urobilinogen (<2.0) mg/dL Ur Leukocyte Esterase (Negative) Urine RBC (0-5) /hpf Urine WBC (0-5) /hpf Ur Squamous Epith Cells (0-4) /hpf Urine Bacteria (None) /hpf Urine Mucus (None) /hpf Stool Occult Blood Positive (Negative) Influenza Type A (PCR) Not Detected (Not Detectd) Influenza Type B (PCR) Not Detected (Not Detectd) RSV (PCR) Not Detected (Not Detectd) SARS-CoV-2 (PCR) Not Detected (Not Detectd) Blood Type Blood Type Recheck Bld Type Recheck Status Antibody Screen Spec Expiration Date - EKG Data -: EKG Interpreted by Me EKG Comments: EKG taken at 10: 3200 chronically ventricular paced rhythm. No acute ST segment elevations or depressions. Ventricular rate 60, QRS duration 187, QT/QTc 457/458. - Radiology Data Radiology results: report reviewed, image reviewed Disposition Clinical Impression: PARK (acute kidney injury), Anemia, Hyperkalemia, Bilateral hydronephrosis Disposition: ADMITTED IP TO THIS [facility] Condition: Stable Time of Disposition: 14:11
[2025-02-11 10:11] LABS: ALT 16 U/L (4-49); AST 40 U/L (17-59); African American GFR (CKD) 6 (>60 ml/min/1.73 sqM); Albumin 3.0 g/dL (3.5-5.0); Alkaline Phosphatase 65 U/L (38-126); Anion Gap 20 mmol/L; Blood Urea Nitrogen 91 mg/dL (9-20); Calcium 8.9 mg/dL (8.4-10.2); Chloride 109 mmol/L (98-107); Glucose 89 mg/dL (74-99); Non-African American GFR(CKD) 5 (>60 ml/min/1.73 sqM); Sodium 138 mmol/L (137-145); Total Protein 6.7 g/dL (6.3-8.2)
[2025-02-11 10:20] LABS: Basophils # (A) 0.06 10*3/uL (0.00-0.10); Basophils % (A) 0.4 %; Eosinophils # (A) 0.25 10*3/uL (0.04-0.35); Eosinophils % (A) 1.9 %; HCT 22.2 % (39.6-50.0); HGB 7.1 g/dL (13.0-17.0); Lymphocytes # (A) 1.26 10*3/uL (0.90-5.00); Lymphocytes % (A) 9.3 %; MCH 24.7 pg (27.0-32.0); MCHC 32.0 g/dL (32.0-37.0); MCV 77.1 fL (80.0-97.0); Monocytes # (A) 1.06 10*3/uL (0.20-1.00); Monocytes % (A) 7.9 %; Neutrophils # (A) 10.77 10*3/uL (1.80-7.70); Neutrophils % (A) 79.8 %; Platelet Count 431 10*3/uL (140-440); RBC 2.88 10*6/uL (4.40-5.60); RDW 20.5 % (11.5-14.5); WBC 13.50 10*3/uL (4.50-10.00)
[2025-02-11 10:21] LABS: INR 1.3 (<1.2); Partial Thromboplastin Time 38.8 sec (22.0-30.0); Prothrombin Time 13.7 sec (10.0-12.5)
[2025-02-11 10:31] LABS: RSV Not Detected (Not Detectd)
[2025-02-11 10:43] LABS: Carbon Dioxide 9 mmol/L (22-30); Potassium 6.4 mmol/L (3.5-5.1)
--- NOTE | 2025-02-11 10:55 | XR ---
EXAMINATION TYPE: XR chest 2V DATE OF EXAM: 02/11/2025 10:50 AM COMPARISON: 08/28/2024 CLINICAL INDICATION: Male, 84 years old with history of weakness, , TECHNIQUE: AP and lateral views FINDINGS: Left anterior chest wall pacemaker generator with a right atrial and ventricular leads. Heart borderl ine in size. Left basilar underpenetrated and not well assessed due to AP technique and large body marks bitus. Mild hyperinflation. No consolidation or pleural effusion seen. DISH mid and lower thoracic sp ine. IMPRESSION: Borderline cardiomegaly and COPD. No definite acute process. [facility], Workstation: [facility], 02/11/2025 10:53 AM
[2025-02-11 11:33] LABS: Bacteria,Urine Rare /hpf; Bilirubin,Urine Negative (Negative); Blood,Urine Large (Negative); Color,Urine Yellow; Glucose,Urine (UA) Negative (Negative); Ketones,Urine Negative (Negative); Leukocyte Esterase,Urine Large (Negative); Mucus,Urine Rare /hpf; Nitrite,Urine Negative (Negative); PH, Urine 6.5 (5.0-8.0); Protein,Urine 1+ (Negative); RBC,Urine 4 /hpf (0-5); Specific Gravity,Urine 1.017 (1.001-1.035); Squamous Epithelial Cell,Urine <1 /hpf (0-4); Urobilinogen,Urine 3.0 mg/dL (<2.0); WBC,Urine 21 /hpf (0-5)
[2025-02-11] MEDS: INSULIN REGULAR 100 UNIT/ML VIAL (IV) IV ONE (11:34)
[2025-02-11] MEDS: DEXTROSE 50% SYRINGE 50 ML IVP ONE (11:34)
[2025-02-11] MEDS: SODIUM BICARB 8.4% 50 ML SYR (1 MEQ/ML) IV ONE (11:34)
[2025-02-11] MEDS: SODIUM ZIRCONIUM CYCLOSILICATE 10 GM PACKET PO ONE (11:36)
[2025-02-11] MEDS: SODIUM CHLORIDE 0.9% 500 ML 500 ML IV ONE (11:55)
[2025-02-11] MEDS: ALBUTEROL NEB (CONC) 2.5 MG/0.5 ML INHALATION ONE (11:59)
--- NOTE | 2025-02-11 13:43 | CT ---
EXAMINATION TYPE: CT brain wo con CT DLP: 1186.5 mGycm, Automated exposure control for dose reduction was used. DATE OF EXAM: 02/11/2025 1:28 PM COMPARISON: CT facial bones 05/31/2021 CLINICAL INDICATION:Male, 84 years old with history of confusion, Confusion TECHNIQUE: Brain: Multiple axial CT images of the brain were obtained without IV contrast. . Coronal and sagitta l reformats reviewed. FINDINGS: Brain: Extra-axial spaces: No abnormal extra-axial fluid collections. Ventricular system: Dilatation in proportion to cerebral atrophy. Cerebral parenchyma: Cerebral atrophy. No acute intraparenchymal hemorrhage or mass effect. The correa -white junction is well differentiated. Scattered hypoattenuating areas are seen within the periventr icular white matter. Cerebellum: Impression encephalomalacia within the inferior left cerebellar hemisphere. Mass effect: No evidence of midline shift. Intracranial vasculature: Atherosclerotic calcifications of the intracranial vessels. Soft tissues: Normal. Calvarium/osseous structures: No depressed skull fracture. Paranasal sinuses and mastoid air cells: The mastoid air cells are clear. Couple of mucous retention cysts within the left maxillary sinus measuring up to 1.6 cm. Remaining paranasal sinuses are clear. Visualized orbits: Orbital contents are intact. IMPRESSION: 1. No acute intracranial process. 2. 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 3. Nonspecific white matter changes, likely secondary to chronic small vessel ischemic disease. [facility], , 02/11/2025 1:41 PM
--- NOTE | 2025-02-11 13:56 | CT ---
EXAMINATION TYPE: CT abdomen pelvis wo con CT DLP: 1063.2 mGycm, Automated exposure control for dose reduction was used. DATE OF EXAM: 02/11/2025 1:29 PM COMPARISON: CT chest abdomen pelvis 08/26/2024, CT abdomen and pelvis 08/19/2024 CLINICAL INDICATION:Male, 84 years old with history of hx stones. park gfr 5; History of stones. PARK. GFR 5 TECHNIQUE: Standard CT of the abdomen and pelvis without IV or oral contrast. Lack of IV or oral co ntrast limits evaluation of solid and hollow organ viscera. Coronal and sagittal reformats were perfo rmed. FINDINGS: LOWER CHEST: Minimal posterior dependent lower lobe subsegmental atelectasis. Mild cardiomegaly with partial position of cardiac pacemaker leads within the right atrium and right ventricle. Small perica rdial effusion. ABDOMEN LIVER: Few hepatic cysts with largest in the left lateral hepatic lobe measuring up to 5.4 cm redemon strated. GALLBLADDER AND BILE DUCTS: The gallbladder is surgically absent. No biliary duct dilatation. PANCREAS: Unremarkable noncontrast appearance. SPLEEN: Unremarkable noncontrast appearance. ADRENAL GLANDS: Unremarkable noncontrast appearance.. KIDNEYS AND URETERS: Development of severe bilateral hydroureteronephrosis to the level of the UVJ. N o definitive obstructing calculus. Similar right renal cortical calcifications. Lobulated appearance of both kidneys with cortical thinning of both kidneys with left greater than right. PELVIS BLADDER: Underdistended with posterior wall thickening measuring up to 1.5 cm. Aguilar catheter in plac e. REPRODUCTIVE: Prostate calcifications with couple of suspected brachytherapy seeds. Soft tissue and f at stranding surrounding the prostate gland and urinary bladder region. Left renal punctate cortical calcifications ABDOMEN & PELVIS STOMACH AND BOWEL: Stomach and duodenum are unremarkable. Pancolonic diverticulosis without evidence for acute diverticulitis. Eccentric circumferential wall thickening of the rectum measuring up to 1.5 cm. No evidence of bowel obstruction. PERITONEUM: No evidence of pneumoperitoneum or free fluid. VASCULATURE: Moderate atherosclerotic calcifications are present throughout the abdominal aorta and i ts branches. No evidence of aortic aneurysm. MUSCULOSKELETAL: No acute osseous abnormalities. Presacral edema. No aggressive osseous lesion. Multi level degenerative disc disease. Grade 1 retrolisthesis of T12 and L1, L1 on L2, and L2 on L3. Levosc oliotic curvature of the lumbar spine. LYMPH NODES: No gross evidence for lymphadenopathy. SOFT TISSUE/ABDOMINAL WALL: Unremarkable IMPRESSION: 1. Development of severe bilateral hydroureteronephrosis to the level of the UVJ without obstructing calculus. Abnormal wall thickening of the urinary bladder with Aguilar catheter in place. There is soft tissue fat stranding and thickening in the region of the prostate gland and urinary bladder. Correla te clinically for an infectious process versus possible underlying mass. Urology consult is recommend ed. 2. Eccentric circumferential wall thickening of the rectum with presacral edema. Correlate for possib le proctitis with underlying mass not excluded. Consider direct visualization. 3. Pancolonic diverticulosis without evidence for acute diverticulitis. [facility], , 02/11/2025 1:53 PM
[2025-02-11] MEDS ORDERED: NALOXONE 0.4 MG/ML 1 ML VIAL IV PRN (14:30)
[2025-02-11] MEDS ORDERED: DOCUSATE 100 MG CAP PO SCH (14:45)
[2025-02-11] MEDS: SODIUM CHLORIDE 0.9% 1,000 ML IV STA (14:46)
[2025-02-11] MEDS ORDERED: fentaNYL (PF) 50 MCG/ML 2 ML AMP ONE (16:21)
[2025-02-11] MEDS ORDERED: MIDAZOLAM 2 MG/2 ML VIAL ONE (16:21)
[2025-02-11] MEDS ORDERED: PROPOFOL 10 MG/ML 20 ML VIAL IV ONE (16:21)
[2025-02-11] MEDS ORDERED: KETAMINE HCL IN 0.9 % NACL 50 MG/5 ML SYRINGE ONE (16:21)
--- NOTE | 2025-02-11 16:21 | P.GSCN ---
History of Present Illness Consult date: 02/11/25 History of present illness: Woman known to me for prostate cancer and kidney stone disease. He presents to the emergency room from the group home because of a rising creatinine. He had a CT scan identifying bilateral hydronephrosis without distinct stone. With the elevated creatinine and the hydronephrosis we are asked see the patient. He has been having some discomfort. He is afebrile. Review of Systems All systems: negative - Constitutional Denies fever, Denies weight loss - EENT Eyes: denies blurred vision Ears, nose, mouth and throat: Denies dysphagia - Cardiovascular Denies chest pain, Denies shortness of breath - Respiratory Denies cough, Denies 7 - Gastrointestinal Reports as per HPI - Genitourinary Denies dysuria, Denies hematuria - Integumentary Denies rash, Denies unusual bruising - Neurological Denies headaches, Denies syncope - Hematologic/Lymphatic Denies easy bleeding, Denies easy bruising Past Medical History Past Medical History: Atrial Fibrillation, Cancer, Heart Failure, CVA/TIA, GERD/Reflux, Hyperlipidemia, Hypertension, Prostate Disorder Additional Past Medical History / Comment(s): tia-2004, arthritis, enlarged prostate, prostate CA 2014(radiation), hx shingles, kidney stone. Hx. 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 Type of Cardiac Device: Permanent Pacemaker Device Placement Date:: 2013, for sick sinus syndrome Past Psychological History: No Psychological Hx Reported Smoking Status: Former smoker Past Alcohol Use History: None Reported Past Drug Use History: None Reported - Past Family History Father Family Medical History: Diabetes Mellitus Additional Family Medical History / Comment(s): History of etoh, brain tumor Mother Family Medical History: Osteoarthritis (OA) Additional Family Medical History / Comment(s): arthritis, Parkinson disease Medications and Allergies Home Medications Medication Instructions Recorded Confirmed Type Potassium Chloride ER [K-Dur 10] 10 meq PO DAILY 03/18/24 02/11/25 History Sodium Bicarbonate Tab 650 mg PO BID #60 tab 05/12/24 02/11/25 Rx Tamsulosin [Flomax] 0.4 mg PO HS 09/08/24 02/11/25 History Acetaminophen 1,000 tab PO Q6H PRN 11/13/24 02/11/25 History Megestrol Acetate 80 mg PO DAILY 11/13/24 02/11/25 History Apixaban [Eliquis] 5 mg PO BID 02/11/25 02/11/25 History Docusate [Colace] 100 mg PO DIRECTED 02/11/25 02/11/25 History Docusate [Colace] 100 mg PO BID@0700,1900 02/11/25 02/11/25 History Ertapenem [INVanz] 1 gm IVPB DAILY 02/11/25 02/11/25 History Fluoride (Sodium) [Sodium Fluoride 1 applic DENTAL HS 02/11/25 02/11/25 History 5000 Plus] Fluticasone Nasal [place] [Flonase 1 spray EA NOSTRIL DAILY 02/11/25 02/11/25 History Nasal [place]] Loratadine [Claritin] 10 mg PO DAILY 02/11/25 02/11/25 History Polymyxin B-Trimeth Sulf Ophth 1 drop RIGHT EYE QID@07,13,19,02/11/2502/11 History [Polytrim Opthalmic] Simethicone Chew [Mylicon Chew] 80 mg PO Q8H PRN 02/11/25 02/11/25 History Tetracycline HCl 500 mg PO QID@05,11,17,23 02/11/25 02/11/25 History Vancomycin HCl [Vancomycin HCl 125 mg PO DAILY 02/11/25 02/11/25 History Oral Soln] Allergies Allergy/AdvReac Type Severity Reaction Status Date / Time No Known Allergies Allergy Verified 02/11/25 11:39 Surgical - Exam Vital Signs Temp Pulse Resp BP Pulse Ox 97.9 F 74 18 122/68 99 02/11/25 08:56 02/11/25 08:56 02/11/25 08:56 02/11/25 08:56 02/11/25 08:56 Results - Labs 02/11/25 09:37 02/11/25 09:37 Abnormal Lab Results - Last 24 Hours (Table) 02/11/25 02/11/25 02/11/25 Range/Units 09:37 09:37 09:37 WBC 13.50 H (4.50-10.00) 10*3/uL RBC 2.88 L (4.40-5.60) 10*6/uL Hgb 7.1 L (13.0-17.0) g/dL Hct 22.2 L (39.6-50.0) % MCV 77.1 L (80.0-97.0) fL MCH 24.7 L (27.0-32.0) pg Immature Gran # 0.10 H (0.00-0.04) 10*3/uL Neutrophils # 10.77 H (1.80-7.70) 10*3/uL Monocytes # 1.06 H (0.20-1.00) 10*3/uL PT 13.7 H (10.0-12.5) sec INR 1.3 H (<1.2) APTT 38.8 H (22.0-30.0) sec Potassium (3.5-5.1) mmol/L Chloride (98-107) mmol/L Carbon Dioxide (22-30) mmol/L BUN (9-20) mg/dL Creatinine (0.66-1.25) mg/dL Troponin I (0.000-0.034) ng/mL Albumin (3.5-5.0) g/dL Urine Protein 1+ H (Negative) Urine Blood Large H (Negative) Ur Leukocyte Esterase Large H (Negative) Urine WBC 21 H (0-5) /hpf Urine Bacteria Rare H (None) /hpf Urine Mucus Rare H (None) /hpf 02/11/25 02/11/25 Range/Units 09:37 09:37 WBC (4.50-10.00) 10*3/uL RBC (4.40-5.60) 10*6/uL Hgb (13.0-17.0) g/dL Hct (39.6-50.0) % MCV (80.0-97.0) fL MCH (27.0-32.0) pg Immature Gran # (0.00-0.04) 10*3/uL Neutrophils # (1.80-7.70) 10*3/uL Monocytes # (0.20-1.00) 10*3/uL PT (10.0-12.5) sec INR (<1.2) APTT (22.0-30.0) sec Potassium 6.4 H* (3.5-5.1) mmol/L Chloride 109 H (98-107) mmol/L Carbon Dioxide 9 L* (22-30) mmol/L BUN 91 H (9-20) mg/dL Creatinine 8.10 H* (0.66-1.25) mg/dL Troponin I 0.047 H* (0.000-0.034) ng/mL Albumin 3.0 L (3.5-5.0) g/dL Urine Protein (Negative) Urine Blood (Negative) Ur Leukocyte Esterase (Negative) Urine WBC (0-5) /hpf Urine Bacteria (None) /hpf Urine Mucus (None) /hpf Diabetes panel 02/11/25 Range/Units 09:37 Sodium 138 (137-145) mmol/L Potassium 6.4 H* (3.5-5.1) mmol/L Chloride 109 H (98-107) mmol/L Carbon Dioxide 9 L* (22-30) mmol/L BUN 91 H (9-20) mg/dL Creatinine 8.10 H* (0.66-1.25) mg/dL Glucose 89 (74-99) mg/dL Calcium 8.9 (8.4-10.2) mg/dL AST 40 (17-59) U/L ALT 16 (4-49) U/L Alkaline Phosphatase 65 (38-126) U/L Total Protein 6.7 (6.3-8.2) g/dL Albumin 3.0 L (3.5-5.0) g/dL Calcium panel 02/11/25 Range/Units 09:37 Calcium 8.9 (8.4-10.2) mg/dL Albumin 3.0 L (3.5-5.0) g/dL Pituitary panel 02/11/25 Range/Units 09:37 Sodium 138 (137-145) mmol/L Potassium 6.4 H* (3.5-5.1) mmol/L Chloride 109 H (98-107) mmol/L Carbon Dioxide 9 L* (22-30) mmol/L BUN 91 H (9-20) mg/dL Creatinine 8.10 H* (0.66-1.25) mg/dL Glucose 89 (74-99) mg/dL Calcium 8.9 (8.4-10.2) mg/dL Adrenal panel 02/11/25 Range/Units 09:37 Sodium 138 (137-145) mmol/L Potassium 6.4 H* (3.5-5.1) mmol/L Chloride 109 H (98-107) mmol/L Carbon Dioxide 9 L* (22-30) mmol/L BUN 91 H (9-20) mg/dL Creatinine 8.10 H* (0.66-1.25) mg/dL Glucose 89 (74-99) mg/dL Calcium 8.9 (8.4-10.2) mg/dL Total Bilirubin 0.6 (0.2-1.3) mg/dL AST 40 (17-59) U/L ALT 16 (4-49) U/L Alkaline Phosphatase 65 (38-126) U/L Total Protein 6.7 (6.3-8.2) g/dL Albumin 3.0 L (3.5-5.0) g/dL - Imaging CT scan - abdomen: report reviewed, image reviewed CT scan - pelvis: report reviewed, image reviewed Assessment and Plan Assessment: : Bilateral hydronephrosis with renal failure Recommendation cystoscopy with placement of double-J catheter possible if I am able to do so he may need nephrostomy tube which means he would have to be transferred to another facility as we do not have invasive radiology. This has been discussed with the patient and the daughter.
[2025-02-11] MEDS: IV FLUID CONTINUATION 1,000 ML IV ONE (16:37)
--- NOTE | 2025-02-11 17:14 | P.OP ---
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 He has a known history of prostate cancer treated with patient therapy. He has also had hormonal manipulation. He presents in renal failure from the assisted. He is found to have bilateral hydronephrosis to the ureterovesical junction consistent with prostate cancer obstruction. He is to the cystoscopy suite for further evaluation and hopeful stent placement. The patient has been having some discomfort. Is mildly inflamed. His creatinine is 8. Description of Procedure: Brought to the operating suite. He is given a of anesthetic. The patient has notable phimosis. I passed the cystoscope into the urethra. I passed into the prostatic urethra which is somewhat necrotic from the radiation therapy for his prostate cancer. Passed into the cavity that I suspect is a bladder but no evidence of ureteral orifice is identified. It does not look like typical bladder mucosa. Irrigate the cavity and it is an obvious vesicle rectal fistula. Reinspect in the cavities that have the scope and I cannot find any typical urothelial anatomy the procedure was terminated. A Aguilar catheter was introduced. The patient was awakened and returned recovery in good condition Impression did not obviously has invasive cancer of the prostate aggravated by radiation therapy without obvious identifible urothelium. No ureteral orifices are identified. The rectovesical fistula has been uncovered just with irrigation. Recommendations: I discussed this with the family. Options are hospice/comfort care versus transfer to a [facility] where nephrostomy tubes surgical colostomy would be required. Because of his previous treatment and hormonal manipulation this would be strictly for comfort as it would not to his cancer. Their impression he will go for hospice care as he is not enjoying being in a assisted. This will be discussed at length with the patient and family again tomorrow.
[2025-02-11] MEDS ORDERED: ZINC OXIDE PASTE (Z-GUARD) 1 APPLIC TOPICAL PRN (18:49)
[2025-02-11 19:00] LABS: ALT 15 U/L (4-49); AST 34 U/L (17-59); African American GFR (CKD) 6 (>60 ml/min/1.73 sqM); Albumin 2.9 g/dL (3.5-5.0); Alkaline Phosphatase 69 U/L (38-126); Anion Gap 18 mmol/L; Blood Urea Nitrogen 91 mg/dL (9-20); Calcium 8.9 mg/dL (8.4-10.2); Carbon Dioxide 11 mmol/L (22-30); Chloride 110 mmol/L (98-107); Glucose 83 mg/dL (74-99); Non-African American GFR(CKD) 5 (>60 ml/min/1.73 sqM); Potassium 5.9 mmol/L (3.5-5.1); Sodium 139 mmol/L (137-145); Total Protein 6.6 g/dL (6.3-8.2)
[2025-02-11] MEDS: DOCUSATE 100 MG CAP PO SCH (19:57)
[2025-02-11] MEDS: POLYMYXIN B-TRIMETHOPRIM SULF (10,000-1) OPHTH DROPS 10 ML BTL RIGHT EYE SCH (19:58)
[2025-02-11] MEDS: TAMSULOSIN 0.4 MG CAP.ER.24H PO SCH (19:58)
[2025-02-11] MEDS: SIMETHICONE 80 MG CHEWABLE PO PRN (23:12)
[2025-02-11] MEDS: ACETAMINOPHEN TAB 325 MG TAB PO PRN (23:12)
[2025-02-12 07:22] LABS: Basophils # (A) 0.06 10*3/uL (0.00-0.10); Basophils % (A) 0.4 %; Eosinophils # (A) 0.03 10*3/uL (0.04-0.35); Eosinophils % (A) 0.2 %; HCT 20.0 % (39.6-50.0); Lymphocytes # (A) 0.67 10*3/uL (0.90-5.00); Lymphocytes % (A) 4.6 %; MCH 24.0 pg (27.0-32.0); MCHC 31.0 g/dL (32.0-37.0); MCV 77.5 fL (80.0-97.0); Monocytes # (A) 0.98 10*3/uL (0.20-1.00); Monocytes % (A) 6.7 %; Neutrophils # (A) 12.69 10*3/uL (1.80-7.70); Neutrophils % (A) 87.3 %; Platelet Count 534 10*3/uL (140-440); RBC 2.58 10*6/uL (4.40-5.60); RDW 20.5 % (11.5-14.5); WBC 14.54 10*3/uL (4.50-10.00)
[2025-02-12 07:44] LABS: HGB 6.2 g/dL (13.0-17.0)
[2025-02-12 07:47] LABS: ALT 13 U/L (4-49); AST 31 U/L (17-59); African American GFR (CKD) 7 (>60 ml/min/1.73 sqM); Albumin 2.9 g/dL (3.5-5.0); Alkaline Phosphatase 63 U/L (38-126); Anion Gap 14 mmol/L; Blood Urea Nitrogen 89 mg/dL (9-20); Calcium 8.5 mg/dL (8.4-10.2); Carbon Dioxide 12 mmol/L (22-30); Chloride 113 mmol/L (98-107); Glucose 94 mg/dL (74-99); Non-African American GFR(CKD) 6 (>60 ml/min/1.73 sqM); Potassium 5.7 mmol/L (3.5-5.1); Sodium 139 mmol/L (137-145); Total Protein 6.3 g/dL (6.3-8.2)
--- NOTE | 2025-02-12 08:35 | P.PN ---
Subjective Progress Note Date: 02/12/25 The patient is in the hospital with renal failure. Cr 8+. He underwent cysto yesterday identifying a necrotic prostatic fossa, a rectal prostatic fistula and the bladder wall and urothelium was barely recognizable/ Objective - Vital Signs Vital signs: Vital Signs Temp 97.4 F L 02/12/25 04:00 Pulse 64 02/12/25 04:00 Resp 18 02/12/25 04:00 BP 169/56 02/12/25 04:00 Pulse Ox 98 02/12/25 04:00 FiO2 Intake & Output 02/11/25 02/12/25 02/12/25 18:59 06:59 18:59 Intake Total 200 Output Total 0 50 Balance 200 -50 Weight 128.367 kg 98.9 kg Intake: IV 200 Output: Urine 50 Estimated Blood Loss 0 Other: Voiding Method Indwelling Catheter - Labs CBC & Chem 7: 02/12/25 07:06 02/12/25 07:01 Labs: Abnormal Lab Results - Last 24 Hours (Table) 02/11/25 02/11/25 02/11/25 Range/Units 09:37 09:37 09:37 WBC 13.50 H (4.50-10.00) 10*3/uL RBC 2.88 L (4.40-5.60) 10*6/uL Hgb 7.1 L (13.0-17.0) g/dL Hct 22.2 L (39.6-50.0) % MCV 77.1 L (80.0-97.0) fL MCH 24.7 L (27.0-32.0) pg MCHC (32.0-37.0) g/dL Plt Count (140-440) 10*3/uL MPV (9.5-12.2) fL Immature Gran # 0.10 H (0.00-0.04) 10*3/uL Neutrophils # 10.77 H (1.80-7.70) 10*3/uL Lymphocytes # (0.90-5.00) 10*3/uL Monocytes # 1.06 H (0.20-1.00) 10*3/uL Eosinophils # (0.04-0.35) 10*3/uL PT 13.7 H (10.0-12.5) sec INR 1.3 H (<1.2) APTT 38.8 H (22.0-30.0) sec Potassium (3.5-5.1) mmol/L Chloride (98-107) mmol/L Carbon Dioxide (22-30) mmol/L BUN (9-20) mg/dL Creatinine (0.66-1.25) mg/dL Troponin I (0.000-0.034) ng/mL Albumin (3.5-5.0) g/dL Urine Protein 1+ H (Negative) Urine Blood Large H (Negative) Ur Leukocyte Esterase Large H (Negative) Urine WBC 21 H (0-5) /hpf Urine Bacteria Rare H (None) /hpf Urine Mucus Rare H (None) /hpf 02/11/25 02/11/25 02/11/25 Range/Units 09:37 09:37 18:26 WBC (4.50-10.00) 10*3/uL RBC (4.40-5.60) 10*6/uL Hgb (13.0-17.0) g/dL Hct (39.6-50.0) % MCV (80.0-97.0) fL MCH (27.0-32.0) pg MCHC (32.0-37.0) g/dL Plt Count (140-440) 10*3/uL MPV (9.5-12.2) fL Immature Gran # (0.00-0.04) 10*3/uL Neutrophils # (1.80-7.70) 10*3/uL Lymphocytes # (0.90-5.00) 10*3/uL Monocytes # (0.20-1.00) 10*3/uL Eosinophils # (0.04-0.35) 10*3/uL PT (10.0-12.5) sec INR (<1.2) APTT (22.0-30.0) sec Potassium 6.4 H* 5.9 H (3.5-5.1) mmol/L Chloride 109 H 110 H (98-107) mmol/L Carbon Dioxide 9 L* 11 L (22-30) mmol/L BUN 91 H 91 H (9-20) mg/dL Creatinine 8.10 H* 8.30 H* (0.66-1.25) mg/dL Troponin I 0.047 H* (0.000-0.034) ng/mL Albumin 3.0 L 2.9 L (3.5-5.0) g/dL Urine Protein (Negative) Urine Blood (Negative) Ur Leukocyte Esterase (Negative) Urine WBC (0-5) /hpf Urine Bacteria (None) /hpf Urine Mucus (None) /hpf 02/11/25 02/12/25 02/12/25 Range/Units 18:26 07:01 07:06 WBC 14.54 H (4.50-10.00) 10*3/uL RBC 2.58 L (4.40-5.60) 10*6/uL Hgb 6.2 L* (13.0-17.0) g/dL Hct 20.0 L (39.6-50.0) % MCV 77.5 L (80.0-97.0) fL MCH 24.0 L (27.0-32.0) pg MCHC 31.0 L (32.0-37.0) g/dL Plt Count 534 H (140-440) 10*3/uL MPV 8.6 L (9.5-12.2) fL Immature Gran # 0.11 H (0.00-0.04) 10*3/uL Neutrophils # 12.69 H (1.80-7.70) 10*3/uL Lymphocytes # 0.67 L (0.90-5.00) 10*3/uL Monocytes # (0.20-1.00) 10*3/uL Eosinophils # 0.03 L (0.04-0.35) 10*3/uL PT (10.0-12.5) sec INR (<1.2) APTT (22.0-30.0) sec Potassium 5.7 H (3.5-5.1) mmol/L Chloride 113 H (98-107) mmol/L Carbon Dioxide 12 L (22-30) mmol/L BUN 89 H (9-20) mg/dL Creatinine 7.84 H* (0.66-1.25) mg/dL Troponin I 0.062 H* (0.000-0.034) ng/mL Albumin 2.9 L (3.5-5.0) g/dL Urine Protein (Negative) Urine Blood (Negative) Ur Leukocyte Esterase (Negative) Urine WBC (0-5) /hpf Urine Bacteria (None) /hpf Urine Mucus (None) /hpf Assessment and Plan Assessment: Impression: renal failure secondary to obstruction of the ureters due to ca p and treatments for. Rectal prostatic fistula. Recommendations; the patients options have discussed at length with the family and the patient. They are basically hospice care versus transfer to a major center for a colostomy and bilateral nephrostomy tubes to prolong life but that would be continued chcf. The patient and family are strongly leaning towards hospice care.
[2025-02-12] MEDS: MEGESTROL 400 MG/10 ML CUP PO SCH (08:41)
[2025-02-12] MEDS: VANCOMYCIN 125 MG CAPSULE PO SCH (08:41)
[2025-02-12] MEDS: FLUTICASONE NASAL 50MCG/SPRAY 16GM BTL EA NOSTRIL SCH (08:43)
[2025-02-12] MEDS ORDERED: MEGESTROL 40 MG TAB PO SCH (09:00)
[2025-02-12] MEDS ORDERED: LIDOCAINE 4% PATCH TOPICAL SCH (11:00)
[2025-02-12] MEDS: DEXTROSE 5% IN WATER 1,000 ML with SODIUM BICARB (1 MEQ/ML) 150 ML IV SCH (11:02)
[2025-02-12] MEDS: LIDOCAINE 4% PATCH TOPICAL SCH (11:09)
[2025-02-12 12:57] VITALS: BMI 29.5
[2025-02-12 15:07] LABS: Glucose,Whole Blood 92 mg/dL (70-110)
--- NOTE | 2025-02-12 16:31 | P.NPCON ---
History of Present Illness - Reason for Consult acute renal failure - History of Present Illness Patient is an 84-year-old male with history of nephrolithiasis and prostatic cancer. Patient was admitted from [facility] due to abnormal labs. Potassium was elevated at 6.1 and serum creatinine of 8. Previous creatinine was 1.[address] scan showed severe bilateral hydronephrosis. Patient was evaluated by urology and is status post cystoscopy. It appears that he has significant inva sive prostatic cancer. A rectovesical fistula was noted as well. Currently with no urine output. CODE STATUS has been discussed with patient and his daughter. There has been discussion regarding hospice care as well given the advanced metastatic cancer. Renal replacement therapy was briefly discussed. Patient is not an ideal candidate for renal replacement therapy given his advanced age and metastatic cancer. At this time patient states that he does not want to pursue any kind of dialysis. Family is waiting for son to have further discussion, he is coming from [facility]. Past Medical History Past Medical History: Atrial Fibrillation, Cancer, Heart Failure, CVA/TIA, GERD/Reflux, Hyperlipidemia, Hypertension, Prostate Disorder Additional Past Medical History / Comment(s): tia-2004, arthritis, enlarged prostate, prostate CA 2014(radiation), hx shingles, kidney stone. Hx. 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 Type of Cardiac Device: Permanent Pacemaker Device Placement Date:: 2013, for sick sinus syndrome Past Psychological History: No Psychological Hx Reported Smoking Status: Former smoker Past Alcohol Use History: None Reported Past Drug Use History: None Reported - Past Family History Father Family Medical History: Diabetes Mellitus Additional Family Medical History / Comment(s): History of etoh, brain tumor Mother Family Medical History: Osteoarthritis (OA) Additional Family Medical History / Comment(s): arthritis, Parkinson disease Medications and Allergies Home Medications Medication Instructions Recorded Confirmed Type Potassium Chloride ER [K-Dur 10] 10 meq PO DAILY 08/28/24 07/24/25 History Sodium Bicarbonate Tab 650 mg PO BID #60 tab 05/12/24 02/11/25 Rx Tamsulosin [Flomax] 0.4 mg PO HS 09/08/24 02/11/25 History Acetaminophen 1,000 tab PO Q6H PRN 11/13/24 02/11/25 History Megestrol Acetate 80 mg PO DAILY 11/13/24 02/11/25 History Apixaban [Eliquis] 5 mg PO BID 02/11/25 02/11/25 History Docusate [Colace] 100 mg PO DIRECTED 02/11/25 02/11/25 History Docusate [Colace] 100 mg PO BID@0700,1900 02/11/25 02/11/25 History Ertapenem [INVanz] 1 gm IVPB DAILY 02/11/25 02/11/25 History Fluoride (Sodium) [Sodium Fluoride 1 applic DENTAL HS 02/11/25 02/11/25 History 5000 Plus] Fluticasone Nasal [place] [Flonase 1 spray EA NOSTRIL DAILY 02/11/25 02/11/25 History Nasal [place]] Loratadine [Claritin] 10 mg PO DAILY 02/11/25 02/11/25 History Polymyxin B-Trimeth Sulf Ophth 1 drop RIGHT EYE QID@07,13,19,02/11/25 02/11/25 History [Polytrim Opthalmic] Simethicone Chew [Mylicon Chew] 80 mg PO Q8H PRN 02/11/25 02/11/25 History Tetracycline HCl 500 mg PO QID@05,11,,02/11/25 02/11/25 History Vancomycin HCl [Vancomycin HCl 125 mg PO DAILY 02/11/25 02/11/25 History Oral Soln] Allergies Allergy/AdvReac Type Severity Reaction Status Date / Time No Known Allergies Allergy Verified 02/11/25 11:39 Physical Exam Vitals: Vital Signs Temp Pulse Pulse Resp BP BP Pulse Ox 02/12/25 15:40 98.5 F 62 16 127/65 98 02/12/25 13:45 98.2 F 56 L 16 128/52 98 02/12/25 11:20 97.1 F L 65 16 167/57 99 02/12/25 11:00 98.7 F 60 16 131/50 98 02/12/25 10:51 99.1 F 73 16 137/65 99 02/12/25 08:32 98.1 F 72 14 135/57 98 02/12/25 04:00 97.4 F L 64 18 169/56 98 02/11/25 23:14 98.8 F 75 18 154/65 98 02/11/25 20:00 98.3 F 69 18 159/63 98 02/11/25 17:54 60 16 146/66 98 02/11/25 17:39 63 18 152/68 99 02/11/25 17:24 60 16 145/60 98 02/11/25 17:09 97 F L 63 16 149/55 100 Intake and Output 02/12/25 02/12/25 02/12/25 06:59 14:59 22:59 Intake Total 516 Output Total 50 Balance -50 516 Intake: Oral 240 Blood Product 276 Rc Pheresis 2 As3 Unit 276 [id number] Output: Urine 50 Other: Voiding Method Indwelling Catheter Indwelling Catheter # Bowel Movements 0 Weight 98.9 kg 98.9 kg Patient is awake, comfortable, no acute distress Examination of the heart S1 and S2 Examination of the lungs bilateral breath sounds are heard Abdomen is soft, nontender Examination of lower extremities shows trace edema bilaterally, chronic skin changes. PROJECTION ENGINEER exam shows patient is moving all 4 extremities Results - Lab Results Most recent lab results Calcium 8.5 mg/dL (8.4-10.2) 02/12/25 07:01 02/12/25 07:06 02/12/25 07:01 Assessment and Plan Assessment: 1. Acute kidney injury, obstructive uropathy with bilateral hydronephrosis from significantly invasive prostatic cancer with rectovesical fistula. Ureteral stents could not be placed. No plans for aggressive care at this time including renal replacement therapy. 2. Hyperkalemia associated with acute kidney injury, obstructive uropathy and severe metabolic acidosis 3. Anion gap metabolic acidosis secondary to acute kidney injury 4. Metastatic prostatic cancer 5. Rectovesical fistula 6. Anemia status post packed RBCs transfusion. Stool for occult blood was positive Plan: Start bicarb drip Repeat labs in a.m. Expect some improvement in hyperkalemia with treatment of acidosis No plans for renal replacement therapy at this time. Further discussion within the family along with decision regarding CODE STATUS when son arrives.
--- NOTE | 2025-02-12 22:01 | HP ---
HISTORY AND PHYSICAL CHIEF COMPLAINTS: Weakness. HISTORY OF PRESENT ILLNESS: This 84-year-old gentleman with a past medical history of multiple medical problems, who is a resident of [facility] currently, who was admitted with anemia as well as weakness. The patient was fatigued. The patient was found to have acute renal failure with creatinine of 8.1 with hyperkalemia on presentation. The patient also had an abdominal pelvis CT scan which showed multiple abnormalities including severe bilateral hydroureteronephrosis and thickening around the pelvis area. The patient had a cystoscopy which showed necrotic prostatic fossa, rectal prostatic fistula and bladder wall and urothelium as barely recognized, possibly had extensive prostate cancer. The family was recommended possible referral for nephrostomy and further evaluation, which they declined and currently the patient is no code, no CPR vent, and family is also considering the possibility of hospice at this time. Currently, the patient is confused, unable to give a clear detailed history, mostly was taken by discussion with staff and as I discussed with family at bedside. The patient is followed by Dr. Munoz in the office. PAST MEDICAL HISTORY: History of atrial fibrillation, CHF. Rest of the history and chart is also reviewed. HOME MEDICATIONS: Reviewed, include Tylenol, dose and rest of medications reviewed. ALLERGIES: None. FAMILY HISTORY: Could not be taken because of change in mental status. SOCIAL HISTORY: Could not be taken because of change in mental status. REVIEW OF SYSTEMS: Could not be taken because of change in mental status. PHYSICAL EXAMINATION: VITAL SIGNS: Pulse is 65, blood pressure 167/57, respirations 16. HEENT: Conjunctivae normal. NECK: No JVD. CARDIOVASCULAR: S1, S2. RESPIRATION: Breath sounds diminished at the bases with scattered rhonchi. ABDOMEN: Soft, nontender. NERVOUS SYSTEM: Diffusely nonfocal, could not be examined completely. LABORATORY DATA: Reviewed. ASSESSMENT: 1. 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 2. Severe acute renal failure with hyperkalemia. 3. Cirrhosis, change in mental status, metabolic encephalopathy secondary to hyperkalemia. 4. History of atrial fibrillation. 5. Cerebrovascular accident, transient ischemic attack. 6. Multiple complex medical issues. RECOMMENDATIONS AND DISCUSSION: I recommended to continue current management and treatment at this time. I would recommend follow with hospice and continue the comfort measures. Prognosis is guarded because of multiple complex medical issues. Further recommendations to follow. See orders for details. MMODL / IJN: [id number] /
[2025-02-13 10:22] LABS: MCH 25.5 pg (27.0-32.0); MCHC 33.0 g/dL (32.0-37.0); MCV 77.4 fL (80.0-97.0); Platelet Count 430 10*3/uL (140-440); RBC 2.39 10*6/uL (4.40-5.60); RDW 21.2 % (11.5-14.5); WBC 12.27 10*3/uL (4.50-10.00)
[2025-02-13 10:30] LABS: HCT 18.5 % (39.6-50.0); HGB 6.1 g/dL (13.0-17.0)
--- NOTE | 2025-02-13 10:31 | P.PN ---
Subjective Progress Note Date: 02/13/25 The patient is in the hospital with failure to thrive, elevated creatinine. He is well-known to me for prostate cancer. He had bilateral hydronephrosis on evaluation. I attempted cystoscopy and retrograde pyelograms but was unable to identify any normal urothelium or ureteral orifice ease. He was identified during cystoscopy to have a rectovesical fistula. I had a lengthy discussion with the family and patient and they have chosen hospice care over referral to a Medical Center for colostomy and nephrostomy tubes. Objective - Vital Signs Vital signs: Vital Signs Temp 98.2 F 02/13/25 08:10 Pulse 60 02/13/25 08:10 Resp 18 02/13/25 08:10 BP 155/53 02/13/25 08:10 Pulse Ox 99 02/13/25 08:10 FiO2 Intake & Output 02/12/25 02/13/25 02/13/25 18:59 06:59 18:59 Intake Total 756 250 240 Output Total 0 Balance 756 250 240 Weight 98.9 kg 98.5 kg Intake: Oral 480 250 240 Blood Product 276 Rc Pheresis 2 As3 Unit 276 [id number] Output: Urine 0 Other: Voiding Method Indwelling Catheter Indwelling Catheter # Bowel Movements 0 - Labs CBC & Chem 7: 02/12/25 07:06 02/12/25 07:01 Labs: Abnormal Lab Results - Last 24 Hours (Table) 02/11/25 Range/Units 09:37 Crossmatch See Detail Microbiology - Last 24 Hours (Table) 02/11/25 09:37 Urine Culture - Final Urine,Voided Assessment and Plan Assessment: Impression: Acute on chronic renal failure. 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 Recommendations: We have discussed at length referral to a Medical Center for nephrostomy tubes and colostomy. The patient and family declined and wished to proceed with hospice care. This has been ordered.
--- NOTE | 2025-02-13 10:40 | P.PN ---
Subjective Progress Note Date: 02/13/25 following for severe PARK patient is seen, family members a bedside. patient is feeling tired today, no improvement scant urine noted in bag no labs this am Objective - Vital Signs Vital signs: Vital Signs Temp 98.2 F 02/13/25 08:10 Pulse 60 02/13/25 08:10 Resp 18 02/13/25 08:10 BP 155/53 02/13/25 08:10 Pulse Ox 99 02/13/25 08:10 FiO2 Intake & Output 02/12/25 02/13/25 02/13/25 18:59 06:59 18:59 Intake Total 756 250 240 Output Total 0 Balance 756 250 240 Weight 98.9 kg 98.5 kg Intake: Oral 480 250 240 Blood Product 276 Rc Pheresis 2 As3 Unit 276 [id number] Output: Urine 0 Other: Voiding Method Indwelling Catheter Indwelling Catheter # Bowel Movements 0 - Exam Patient is awake, comfortable, no acute distress Examination of the heart S1 and S2 Examination of the lungs bilateral breath sounds are heard Abdomen is soft, nontender Examination of lower extremities shows trace edema bilaterally, chronic skin changes. [place] [facility] exam shows patient is moving all 4 extremities - Labs CBC & Chem 7: 02/13/25 10:03 02/12/25 07:01 Labs: Abnormal Lab Results - Last 24 Hours (Table) 02/11/25 02/13/25 Range/Units 09:37 10:03 WBC 12.27 H (4.50-10.00) 10*3/uL RBC 2.39 L (4.40-5.60) 10*6/uL Hgb 6.1 L* (13.0-17.0) g/dL Hct 18.5 L* (39.6-50.0) % MCV 77.4 L (80.0-97.0) fL MCH 25.5 L (27.0-32.0) pg MPV 8.9 L (9.5-12.2) fL Crossmatch See Detail Microbiology - Last 24 Hours (Table) 02/11/25 09:37 Urine Culture - Final Urine,Voided Assessment and Plan Assessment: 1. Acute kidney injury, obstructive uropathy with bilateral hydronephrosis from significantly invasive prostatic cancer with rectovesical fistula. Ureteral stents could not be placed. family deciding on plans for aggressive care at this time including renal replacement therapy. 2. Hyperkalemia associated with acute kidney injury, obstructive uropathy and severe metabolic acidosis 3. Anion gap metabolic acidosis secondary to acute kidney injury 4. Metastatic prostatic cancer 5. Rectovesical fistula 6. Anemia status post packed RBCs transfusion. Stool for occult blood was positive Plan: Continue bicarb drip, labs pending this am Expect some improvement in hyperkalemia with treatment of acidosis No plans for renal replacement therapy at this time. Further discussion within the family along with decision regarding CODE STATUS Guarded prognosis
[2025-02-13 10:41] LABS: ALT 11 U/L (4-49); AST 26 U/L (17-59); African American GFR (CKD) 7 (>60 ml/min/1.73 sqM); Albumin 2.3 g/dL (3.5-5.0); Alkaline Phosphatase 57 U/L (38-126); Anion Gap 14 mmol/L; Blood Urea Nitrogen 94 mg/dL (9-20); Calcium 7.9 mg/dL (8.4-10.2); Carbon Dioxide 19 mmol/L (22-30); Chloride 104 mmol/L (98-107); Glucose 106 mg/dL (74-99); Magnesium 1.6 mg/dL (1.6-2.3); Non-African American GFR(CKD) 6 (>60 ml/min/1.73 sqM); Potassium 4.3 mmol/L (3.5-5.1); Sodium 137 mmol/L (137-145); Total Protein 5.4 g/dL (6.3-8.2)
--- NOTE | 2025-02-14 02:08 | PN ---
PROGRESS NOTE DATE OF SERVICE: 02/13/2025 SUBJECTIVE: This 84-year-old gentleman admitted with extensive prostate cancer causing bilateral hydronephrosis as well as possibly rectoprostatic fistula. He is being closely monitored. Family is exploring the hospice options. OBJECTIVE: GENERAL: On exam, the patient is drowsy, arousable. VITAL SIGNS: Pulse 62, blood pressure 130/62, respirations 18. CHEST: Scattered rhonchi. ABDOMEN: Soft. NERVOUS SYSTEM: Nonfocal. LABS: Hemoglobin 6.1. ASSESSMENT: 1. 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 2. Severe anemia. 3. Severe acute renal failure with hyperkalemia. 4. Change in mental status. 5. Acute metabolic encephalopathy secondary to renal failure. 6. History of atrial fibrillation. 7. CVA and TIA. 8. Multiple complex medical issues. 9. No code, no CPR, no vent. RECOMMENDATIONS: Recommend to continue current management. Continue symptomatic treatment. Otherwise, continue with hospice options. Guarded prognosis because of multiple complex medical issues. Further recommendations to follow. We discussed with Dr. Asher, urologist who recommended hospice if the family does not want to possibly transfer. The patient is a poor candidate for surgery and has some multiple complex medical issues and overall prognosis remains extremely guarded as mentioned above. MMODL / IJN: [id number] /
[2025-02-14 08:31] LABS: HCT 20.9 % (39.6-50.0); HGB 7.1 g/dL (13.0-17.0); MCH 27.0 pg (27.0-32.0); MCHC 34.0 g/dL (32.0-37.0); MCV 79.5 fL (80.0-97.0); Platelet Count 383 10*3/uL (140-440); RBC 2.63 10*6/uL (4.40-5.60); RDW 21.6 % (11.5-14.5); WBC 11.15 10*3/uL (4.50-10.00)
[2025-02-14 08:38] LABS: African American GFR (CKD) 7 (>60 ml/min/1.73 sqM); Anion Gap 13 mmol/L; Calcium 7.5 mg/dL (8.4-10.2); Carbon Dioxide 20 mmol/L (22-30); Chloride 103 mmol/L (98-107); Glucose 94 mg/dL (74-99); Magnesium 1.5 mg/dL (1.6-2.3); Non-African American GFR(CKD) 6 (>60 ml/min/1.73 sqM); Potassium 4.1 mmol/L (3.5-5.1); Sodium 136 mmol/L (137-145)
[2025-02-14 08:43] LABS: Blood Urea Nitrogen 102 mg/dL (9-20)
--- NOTE | 2025-02-14 10:12 | P.PN ---
Subjective Progress Note Date: 02/14/25 following for severe PARK patient is seen, family members a bedside. patient is ok today minimal UO in bag family members decided to pursuit hospice care , to be transferred tomorrow Objective - Vital Signs Vital signs: Vital Signs Temp 98.1 F 02/14/25 08:42 Pulse 56 L 02/14/25 08:42 Resp 18 02/14/25 08:42 BP 136/58 02/14/25 08:42 Pulse Ox 96 02/14/25 08:42 FiO2 Intake & Output 02/13/25 02/14/25 02/14/25 18:59 06:59 18:59 Intake Total 1005 0 240 Output Total 500 Balance 1005 -500 240 Weight 101 kg Intake: Oral 720 0 240 Blood Product 285 Rc Pheresis 2 As3 Unit 285 [id number] Output: Urine 200 Stool 300 Other: Voiding Method Indwelling Catheter Indwelling Catheter # Bowel Movements 1 - Exam Patient is awake, comfortable, no acute distress Examination of the heart S1 and S2 Examination of the lungs bilateral breath sounds are heard Abdomen is soft, nontender Examination of lower extremities shows trace edema bilaterally, chronic skin changes. REMOTELY OPERATED VEHICLE exam shows patient is moving all 4 extremities - Labs CBC & Chem 7: 02/14/25 07:52 02/14/25 07:52 Labs: Abnormal Lab Results - Last 24 Hours (Table) 02/11/25 02/13/25 02/13/25 Range/Units 09:37 10:03 10:03 WBC 12.27 H (4.50-10.00) 10*3/uL RBC 2.39 L (4.40-5.60) 10*6/uL Hgb 6.1 L* (13.0-17.0) g/dL Hct 18.5 L* (39.6-50.0) % MCV 77.4 L (80.0-97.0) fL MCH 25.5 L (27.0-32.0) pg MPV 8.9 L (9.5-12.2) fL Sodium (137-145) mmol/L Carbon Dioxide 19 L (22-30) mmol/L BUN 94 H (9-20) mg/dL Creatinine 7.46 H* (0.66-1.25) mg/dL Glucose 106 H (74-99) mg/dL Calcium 7.9 L (8.4-10.2) mg/dL Magnesium (1.6-2.3) mg/dL Total Protein 5.4 L (6.3-8.2) g/dL Albumin 2.3 L (3.5-5.0) g/dL Crossmatch See Detail 02/14/25 02/14/25 Range/Units 07:52 07:52 WBC 11.15 H (4.50-10.00) 10*3/uL RBC 2.63 L (4.40-5.60) 10*6/uL Hgb 7.1 L (13.0-17.0) g/dL Hct 20.9 L (39.6-50.0) % MCV 79.5 L (80.0-97.0) fL MCH (27.0-32.0) pg MPV 9.1 L (9.5-12.2) fL Sodium 136 L (137-145) mmol/L Carbon Dioxide 20 L (22-30) mmol/L BUN 102 H* (9-20) mg/dL Creatinine 7.06 H* (0.66-1.25) mg/dL Glucose (74-99) mg/dL Calcium 7.5 L (8.4-10.2) mg/dL Magnesium 1.5 L (1.6-2.3) mg/dL Total Protein (6.3-8.2) g/dL Albumin (3.5-5.0) g/dL Crossmatch Microbiology - Last 24 Hours (Table) 02/11/25 14:20 Blood Culture - Preliminary Blood Assessment and Plan Assessment: 1. Acute kidney injury, obstructive uropathy with bilateral hydronephrosis from significantly invasive prostatic cancer with rectovesical fistula. Ureteral stents could not be placed. family deciding on plans for aggressive care at this time including renal replacement therapy. 2. Hyperkalemia associated with acute kidney injury, obstructive uropathy and severe metabolic acidosis 3. Anion gap metabolic acidosis secondary to acute kidney injury 4. Metastatic prostatic cancer 5. Rectovesical fistula 6. Anemia status post packed RBCs transfusion. Stool for occult blood was positive Plan: Continue bicarb drip for now stable electrolytes transition to Hospice care per patient/family decision.
--- NOTE | 2025-02-15 03:14 | PN ---
PROGRESS NOTE DATE OF SERVICE: 02/14/2025 SUBJECTIVE: This is an 84-year-old gentleman admitted with extensive prostate cancer. He is being considered for hospice care at this time. No chest pain. No palpitation. OBJECTIVE: VITAL SIGNS: On exam, pulse 65, blood pressure 140/62, respirations 16. CHEST: Scattered rhonchi. ABDOMEN: Soft. LEGS: No edema. NERVOUS SYSTEM: Nonfocal. LABS: Reviewed. ASSESSMENT: 1. 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 2. Severe anemia. 3. Severe acute renal failure with hyperkalemia. 4. Change in mental status. 5. Acute metabolic encephalopathy secondary to renal failure. 6. History of atrial fibrillation. 7. CVA, TIA. 8. Multiple complex medical issues. 9. No code, no CPR, no vent. 10.Comfort measures. RECOMMENDATIONS: I recommend to continue current medication management and symptomatic treatment. Otherwise, I have discussed with family to arrange him for possible hospice at hospice house. We will continue to monitor. Further recommendations to follow. MMODL / IJN: [id number] /
--- NOTE | 2025-02-15 07:54 | CDI ---
Documentation Clarification Form Date: 02/15/2025 07:42:25 AM From: Kathrine Blandon RN CDIS Phone: [phone] Admit Date: 02/11/2025 02:03:00 PM Patient Name: Santosh Melton Visit Number: [id number] Discharge Date: ATTENTION: The Clinical Documentation Specialists (CDI) and [facility] Coding Staff appreciate your assistance in clarifying documentation. Please respond to the clarification below the line at the bottom and electronically sign. The CDI & [facility] Coding staff will review the response and follow-up if needed. Please note: Queries are made part of the Legal Health Record. If you have any questions, please contact the author of this message via ITS. Doctor Carina Knott A stage 1 rectum pressure ulcer is documented , ED note. Additional clarification regarding the stage of the pressure ulcer is requested. History/Risk Factors: 84 year old male presents to the ED from ECF with abnormal labs and would like a blood culture done for possible source of infection. Patient has diarrhea. Medical history: Prostate cancer with metastasis, cirrhosis, atrial fib and cva. 02/12 HP. Clinical Indicators: Nursing note 02/11: Coccyx Maceration Location: Coccyx Wound description: Maceration Treatment: Turning Q2H, Absorbant pad, Nutritional consult and Zinc paste Please clarify the stage of pressure ulcer rectum, if known: [x ] Stage 1 Pressure Ulcer rectum/ coccyx [ ] Stage 2 Pressure Ulcer rectum/coccyx [ ] Other condition, please specify [ ] Unable to determine Clinical Definitions: Stage 1 Pressure Ulcer: intact skin, non-blanching redness of local area Stage 2 Pressure Ulcer: Partial thickness, loss of dermis, pink wound bed Stage 3 Pressure Ulcer: Full thickness tissue loss Stage 4 Pressure Ulcer: Full thickness tissue loss with exposed bone, tendon, or muscle. Unstageable pressure ulcer: Full thickness tissue loss in which the base of the ulcer is covered by slough (yellow, doyle, correa, green or brown) and/or eschar (doyle, brown or black) in the wound bed. (Template Last Revised: September 2020) MTDD
[2025-02-15 09:37] VITALS: TEMP 97.8
[2025-02-15 10:38] LABS: HCT 21.7 % (39.6-50.0); HGB 7.3 g/dL (13.0-17.0); MCH 26.4 pg (27.0-32.0); MCHC 33.6 g/dL (32.0-37.0); MCV 78.6 fL (80.0-97.0); Platelet Count 427 10*3/uL (140-440); RBC 2.76 10*6/uL (4.40-5.60); RDW 21.8 % (11.5-14.5); WBC 11.17 10*3/uL (4.50-10.00)
[2025-02-15 10:52] LABS: African American GFR (CKD) 7 (>60 ml/min/1.73 sqM); Anion Gap 14 mmol/L; Blood Urea Nitrogen 100 mg/dL (9-20); Calcium 7.5 mg/dL (8.4-10.2); Carbon Dioxide 26 mmol/L (22-30); Chloride 98 mmol/L (98-107); Glucose 102 mg/dL (74-99); Non-African American GFR(CKD) 6 (>60 ml/min/1.73 sqM); Potassium 3.9 mmol/L (3.5-5.1); Sodium 138 mmol/L (137-145)
--- NOTE | 2025-02-15 13:05 | P.DS ---
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 Patient will follow-up with Dr. Munoz in the outpatient setting upon discharge. Patient is to continue with oral vancomycin daily as scheduled. Total time taken is greater than 35 minutes. Hospital course This is an 84-year-old male who was recently admitted with worsening kidney functions with renal failure with concerns of urinary tract infection with extensive prostate cancer. Patient and family have discussed further and would like to proceed with hospice and will be going to [facility]. Family would like the patient to continue on oral daily vancomycin as he has been taking. Patient to continue with indwelling Aguilar catheter on discharge. Patient has been cleared by consultations and is agreeable and appropriate for hospice. Please refer to other consultation notes for further HPI. Currently no reports of chest pain, shortness of breath, or palpitations. Patient is afebrile. No reports of nausea or vomiting and patient is tolerating diet. Patient will be going to [facility] today. Overall poor and guarded prognosis. Physical exam: Gen: This is a 84-year-old male who is awake, alert and oriented x 2-3, bas kim, well-developed, elderly appearing, chronically ill-appearing, obese HEENT: Head is atraumatic, normocephalic. Pupils equal, round. Sclerae is anicteric. NECK: Supple. No JVD. No lymphadenopathy. No thyromegaly. LUNGS: Diminished breath sounds bilaterally clear to auscultation. No wheezes or rhonchi. No intercostal retractions. HEART: S1, S2 are muffled ABDOMEN: Soft. Obese bowel sounds are present. No masses. No tenderness. EXTREMITIES: No pedal edema. No calf tenderness. NEUROLOGICAL: Patient is awake, alert and oriented x2-3. Cranial nerves 2 through 12 are grossly intact. Diffusely weak Please refer to medication reconciliation sheet for a list of medications. The impression and plan of care has been dictated by Eve Alexander, Nurse Practitioner as directed. Dr. Nikos MD I have performed a history and examination and MDM of this patient, discussed the same with the dictator, and agree with the dictator's assessment and plan as written ,documented as a scribe. Based on total visit time, I have performed more than 50% of the visit. Patient Condition at Discharge: Fair Plan - Discharge Summary Discharge Rx Participant: Yes New Discharge Prescriptions: New Lidocaine 4% Patch 2 patch TOPICAL DAILY patch Continue Acetaminophen 1,000 tab PO Q6H PRN PRN Reason: Pain Or Fever > 100.5 Vancomycin HCl [Vancomycin HCl Oral Soln] 125 mg PO DAILY Fluoride (Sodium) [Sodium Fluoride 5000 Plus] 1 applic DENTAL HS Loratadine [Claritin] 10 mg PO DAILY Fluticasone Nasal [place] [Flonase Nasal [place]] 1 spray EA NOSTRIL DAILY Tamsulosin [Flomax] 0.4 mg PO HS Megestrol Acetate 80 mg PO DAILY Simethicone Chew [Mylicon Chew] 80 mg PO Q8H PRN PRN Reason: gas Polymyxin B-Trimeth Sulf Ophth [Polytrim Opthalmic] 1 drop RIGHT EYE QID@07,13,19,23 Docusate [Colace] 100 mg PO BID@0700,1900 Discontinued Tetracycline HCl 500 mg PO QID@05,11,17,23 Apixaban [Eliquis] 5 mg PO BID Docusate [Colace] 100 mg PO DIRECTED Potassium Chloride ER [K-Dur 10] 10 meq PO DAILY Sodium Bicarbonate Tab 650 mg PO BID #60 tab Ertapenem [INVanz] 1 gm IVPB DAILY Discharge Medication List Tamsulosin [Flomax] 0.4 mg PO HS 09/08/24 [History] Acetaminophen 1,000 tab PO Q6H PRN 11/13/24 [History] Megestrol Acetate 80 mg PO DAILY 11/13/24 [History] Docusate [Colace] 100 mg PO BID@0700,1900 02/11/25 [History] Fluoride (Sodium) [Sodium Fluoride 5000 Plus] 1 applic DENTAL HS 02/11/25 [History] Fluticasone Nasal [place] [Flonase Nasal [place]] 1 spray EA NOSTRIL DAILY 02/11/25 [History] Loratadine [Claritin] 10 mg PO DAILY 02/11/25 [History] Polymyxin B-Trimeth Sulf Ophth [Polytrim Opthalmic] 1 drop RIGHT EYE QID@07,13,19,23 02/11/25 [History] Simethicone Chew [Mylicon Chew] 80 mg PO Q8H PRN 02/11/25 [History] Vancomycin HCl [Vancomycin HCl Oral Soln] 125 mg PO DAILY 02/11/25 [History] Lidocaine 4% Patch 2 patch TOPICAL DAILY patch 02/15/25 [Rx] Follow up Appointment(s)/Referral(s): Nonstaff,Physician [Primary Care Provider] - 1-2 days Activity/Diet/Wound Care/Special Instructions: [facility] is going [facility] activity as tolerated Continue with indwelling Aguilar catheter Continue regular diet Discharge Disposition: OTHER INSTITUTION NOT DEFINED
[2025-02-15 13:53] VITALS: BP 133/67; PULSE 61; RESP 17
== END 2025-02-15 15:38 | disposition hospice, home (50) | DRG 682 ==
LOC: EC 08:47 → 3SCARD 14:03
PROVIDERS: ADMIT Hospitalist; ATTEND Hospitalist
PROC: 0TJB8ZZ Inspection of Bladder, Via Natural or Artificial Opening Endoscopic (ICD-10-PCS; principal; 2025-02-11 10:15)
PROC: 30233N1 Transfusion of Nonautologous Red Blood Cells into Peripheral Vein, Percutaneous Approach (ICD-10-PCS; 2025-02-12)
DX: N17.9 Acute kidney failure, unspecified (principal); G93.41 Metabolic encephalopathy; I96 Gangrene, not elsewhere classified; E87.20 Acidosis, unspecified; L89.151 Pressure ulcer of sacral region, stage 1; Z51.5 Encounter for palliative care; R62.7 Adult failure to thrive; D63.1 Anemia in chronic kidney disease; C61 Malignant neoplasm of prostate; I13.0 Hypertensive heart and chronic kidney disease with heart failure and stage 1 through stage 4 chronic kidney disease, or unspecified chronic kidney disease; Z68.30 Body mass index [BMI] 30.0-30.9, adult; N18.9 Chronic kidney disease, unspecified; N32.1 Vesicointestinal fistula; I48.91 Unspecified atrial fibrillation; I50.9 Heart failure, unspecified; E87.5 Hyperkalemia; E66.9 Obesity, unspecified; N13.1 Hydronephrosis with ureteral stricture, not elsewhere classified; E78.5 Hyperlipidemia, unspecified; Z86.73 Personal history of transient ischemic attack (TIA), and cerebral infarction without residual deficits; Z79.01 Long term (current) use of anticoagulants; Z87.442 Personal history of urinary calculi; Z87.891 Personal history of nicotine dependence
CPT/HCPCS: 36415; 70450; 71046; 74176; 80048; 80053; 81001; 82272; 83735; 84484; 85025; 85027; 85610; 85730; 86850; 86900; 86901; 86920; 87040; 87086; 87636; 93005; 94640; 96374; 96375; 99285